=== PATIENT | female | born 1990 | race Caucasian/White ===

== ENCOUNTER 2023-07-02 19:11 | Outpatient (REF) | payer BC, SELFPAY | END 2023-07-02 19:12 | disposition home or self-care (01) | LOC: LAB 19:11 | PROVIDERS: PCP Student in an Organized Health Care Education/Training Program; Visit Provider Obstetrics & Gynecology | DX: Z01.419 Encounter for gynecological examination (general) (routine) without abnormal findings (principal) | CPT/HCPCS: 36415; 87491; 87591; 87624; 87661; 88175 ==

== ENCOUNTER 2024-03-14 10:50 | Outpatient (OUT) | payer BC, SELFPAY ==
[2024-03-14 12:57] LABS: Basophils Percent Auto 0.4 % (0.2-2.0); Eosinophils Absolute Auto 0.1 10^3/uL (0.0-0.7); Eosinophils Percent Auto 0.9 % (0.9-7.0); Hematocrit 36.9 % (36.0-48.0); Hemoglobin 12.3 g/dL (12.0-16.0); Immature Granulocytes Abs Auto 0.07 10^3/uL (0.00-0.03); Lymphocytes Absolute Auto 1.8 10^3/uL (1.2-3.8); Lymphocytes Percent Auto 25.9 % (20.5-60.0); Mean Corpuscular HGB Conc 33.3 g/dL (29.9-35.2); Mean Corpuscular Hemoglobin 29.9 pg (26.7-34.0); Mean Corpuscular Volume 89.6 fL (81.0-99.0); Monocytes Absolute Auto 0.5 10^3/uL (0.3-0.8); Monocytes Percent Auto 6.4 % (1.7-12.0); Neutrophils Absolute Auto 4.6 10^3/uL (1.4-6.5); Neutrophils Percent Auto 65.4 % (43.0-75.0); Platelet Count 169 10^3/uL (150-450); Red Blood Count 4.12 10^6/uL (4.20-5.40); Red Cell Distribution Width 13.1 % (11.0-15.0)
[2024-03-14 13:02] LABS: Estimated Average Glucose 111 mg/dL; Glycohemoglobin A1C 5.5 % (4.5-6.2)
[2024-03-14 13:52] LABS: BOX Test Reference Lab UNITY; BOX Test Sent Out UNITY
[2024-03-14 13:53] LABS: Amphetamine Screen Urine NEGATIVE (NEGATIVE); Barbiturates Screen Urine NEGATIVE (NEGATIVE); Benzodiazepines Screen Urine NEGATIVE (NEGATIVE); Buprenorphine Screen Urine NEGATIVE (NEGATIVE); Cannabinoid Screen Urine NEGATIVE (NEGATIVE); Cocaine Screen Urine NEGATIVE (NEGATIVE); Methadone Screen Urine NEGATIVE (NEGATIVE); Methamphetamines Screen Urine NEGATIVE (NEGATIVE); Opiate Screen Urine NEGATIVE (NEGATIVE); Oxycodone Screen Urine NEGATIVE (NEGATIVE); Phencyclidine Screen Urine NEGATIVE (NEGATIVE); Tricyclic Antidepressant Urine NEGATIVE (NEGATIVE)
[2024-03-15 06:08] LABS: HBsAg Screen Negative (Negative); HCV Ab Non Reactive (Non Reactive); HIV Ab/p24 Ag Screen Non Reactive (Non Reactive)
[2024-03-15 07:08] LABS: Rubella Antibodies, IgG 2.49 index (Immune >0.99)
[2024-03-15 13:07] LABS: Rapid Plasma Reagin, Quant Non Reactive titer (NonRea<1:1)
== END 2024-03-14 10:51 | disposition home or self-care (01) ==
LOC: LAB 10:53
PROVIDERS: PCP Student in an Organized Health Care Education/Training Program; Visit Provider Obstetrics & Gynecology
DX: Z34.01 Encounter for supervision of normal first pregnancy, first trimester (principal); Z36.0 Encounter for antenatal screening for chromosomal anomalies; N92.6 Irregular menstruation, unspecified
CPT/HCPCS: 36415; 80307; 83036; 85025; 86592; 86762; 86803; 86850; 86900; 86901; 87086; 87340; 87389

== ENCOUNTER 2024-04-19 | Outpatient (REF) | payer BC, SELFPAY ==
--- OUTSIDE RECORDS SUMMARY | 2024-04-20 09:04 | XMS_ITS | CCD ---
Author Organization [facility] Care Team Providers Care Corporate Concierge Name Role Phone BACEVICE, CHARLIE E Unavailable Unavailable KAFTON, KEITH Unavailable Unavailable BACEVICE, CHARLIE E Unavailable Unavailable BACEVICE, CHARLIE E Unavailable Unavailable KAFTON, KEITH Unavailable Unavailable GREENWOOD, KEITH Unavailable Unavailable GREENWOOD, KEITH Unavailable Unavailable KAFTON, KEITH Unavailable Unavailable GREENWOOD, KEITH Unavailable Unavailable KAFTON, KEITH Unavailable Unavailable GREENWOOD, KEITH Unavailable Unavailable Karen Bolanos Unavailable Filomena Zamora Unavailable Unavailable CONNER, DR WOOD Admitting Unavailable CONNER, DR WOOD Attending Unavailable REQUEST, NONE LISTED Primary Care Unavaila armand PRIETO, DR WOOD Consulting Unavailable Karen Bolanos Primary Care Physician Unavailable Primary Care Provider Unavailabl e Unavailable Primary Care Provider Unavailabl e JARAD, ANDRESSA G Attending Unavailable JARAD, ANDRESSA G Referring Unavailable JARAD, ANDRESSA G Referring Unavailable TANTIBSHADY MATUTEIERUT Attending Unav ailable SMOLEN, JESSI Referring Unavailable MARIE, RAHUL Attending Unavailable REHISAI ANYI Attending Unavailable JARAD, ANDRESSA G Referring Unavailable JARAD, ANDRESSA G Attending Unavailable SMOLEN, JESSI Referring Unavailable ANGELICA, MYRIAM Attending Unavailable JARAD, ANDRESSA G Referring Unavailable JARAD, ANDRESSA G Referring Unavailable JARAD, ANDRESSA G Referring Unavailable JARAD, ANDRESSA G Attending Unavailable SMOLEN, JESSI Referring Unavailable JARAD, ANDRESSA G Attending Unavailable KATZTIARRA Rivera Attending Unavailable KATZTIARRA PARK Admitting Unavailable TIARRA KATZ Attending Unavailable TIARRA KATZ Attending Unavailable Karen Bolanos MD Primary Care Provider Karen Bolanos MD Unavailable KAREN BOLANOS Attending Unavailable ANDREA PRIETO Attending Unavailable KAREN BOLANOS Attending Unavailable Medications Current Medications Medication Drug Class(es) Dates Sig (Normalized) Sig (Original) amoxicillin 80 mg/ml oral suspension (1 source) Penicillin-class Antibacterial Start: 02-28-2024 End: 03-09-2024 take 960 mg by mouth every twelve hours amoxicillin 400 mg/5 mL Oral Liq 960 mg = 12 mL, Oral, q12hr, X 10 day(s), # 240 mL, Refills(s) 0, Pharmacy: [facility] #[id number], 158, cm, 02/28/24 9:01:00 EST, Height/Length Dosing, 94, kg, 02/28/24 9:01:00 EST, Weight Dosing Start Date: 02/28/24 Stop Date: 03/09/24 Status: Ordered amoxicillin 875 mg / clavulanate 125 mg oral tablet (1 source) Penicillin-class Antibacterial Start: 03-11-2021 End: 03-20-2021 take 1 tablet by mouth twice daily at mealtime amoxicillin-clavul anate 875 mg-125 mg oral tablet ; 1 tab(s) orally 2 times a day Quantity: 20 Refills: 0 Ordered: 11-Mar-2021 Filomena Zamora Start: 11-Mar-2021 End: 20-Mar-2021 Generic Substitution Allowed Comments: Finish all this medication unless otherwise directed by prescriber.Take with food or milk. Comment on above: Finish all this medi cation unless otherwise directed by prescriber.Take with food or milk. biotin 5 mg oral capsule (19 sources) End: 03-11-2024 biotin 5 MG capsule Take by mouth Daily 03/11/2024 Discontinued End: 01-20-2024 BIOTIN ORAL Take by mouth on ce daily. 01/20/2024 Discontinued BIOTIN ORAL Take by mouth once daily. Active BIOTIN ORAL Take by mouth once daily. 0 Active Comment on above: Take by mouth once d aily. brompheniramine maleate 0.4 mg/ml / dextromethorphan hydrobromide 2 mg/ml / pseudoephedrine hydrochloride 6 mg/ml oral solution (1 source) alpha-Adrenergic Agonist, Uncompetitive N-vkabpb-J-aspartate Receptor Antagonist, Sigma-1 Agonist Start: End: take 5 mL by mouth every four to six hours brompheniramine/pse udoephedrine/dextro methorphan 2ha-[id number]-61qu/5 mL oral syrup ; 5 milliliter(s) orally every 4 to 6 hours, As Needed Quantity: 120 Refills: 0 Ordered: 11-Mar-2021 Noah Filomena Start: 11-Mar-2021 End: 20-Mar-2021 Generic Substitution Allowed Comments: May cause drowsiness. Alcohol may intensify this effect. Use care when operating dangerous machinery.Obtain medical advice before taking any non-prescription drugs as some may affect the action of this medication. Comment on above: May cause drowsiness . Alcohol may intensify this effect. Use care when operating dangerous machinery.Obtain medical advice before taking any non-prescription drugs as some may affect the action of this medication. cetirizine hydrochloride 10 mg oral tablet (1 source) Histamine-1 Receptor Antagonist Start: End: take 1 tablet by mouth once daily cetirizine 10 mg oral tablet ; 1 tab(s) orally once a day Quantity: 21 Refills: 0 Ordered: 11-Mar-2021 Filomena Zamora Start: 11-Mar-2021 End: 31-Mar-2021 Generic Substitution Allowed Comments: May cause drowsiness. Alcohol may intensify this effect. Use care when operating dangerous machinery.Obtain medical advice before taking any non-prescription drugs as some may affect the action of this medication. Comment on above: May cause drowsiness . Alcohol may intensify this effect. Use care when operating dangerous machinery.Obtain medical advice before taking any non-prescription drugs as some may affect the action of this medication. clindamycin 0.01 mg/mg topical gel (4 sources) Lincosamide Antibacterial Start: End: clindamycin (Clindagel) 1 % gel Indications: Acne vulgaris Apply topically Daily 60 g 2 06/15/2023 03/11/2024 Discontinued escitalopram 10 mg oral tablet (4 sources) Serotonin Reuptake Inhibitor End: escitalopram (Lexapro) 10 MG tablet 1 (one) time each day at the same time 03/11/2024 Discontinued fluticasone propionate 0.05 mg/actuat metered dose nasal spray (1 source) Corticosteroid Start: End: take 1 spray(s) nasal route once daily fluticasone 50 mcg/inh nasal spray ; 1 spray(s) in each nostril once a day Quantity: 1 Refills: 0 Ordered: 11-Mar-2021 Filomena Zamora Start: 11-Mar-2021 End: 20-Mar-2021 Generic Substitution Allowed Comments: For the nose.It is very important that you take or use this exactly as directed. Do not skip doses or discontinue unless directed by your doctor. Comment on above: For the nose.It is v mukesh important that you take or use this exactly as directed. Do not skip doses or discontinue unless directed by your doctor. mv-min/iron/folic/calciu m/vitK (WOMEN'S MULTIVITAMIN ORAL) (17 sources) mv-min/iron/foli c/c alcium/vitK (WOMEN'S MULTIVITAMIN ORAL) Take by mouth. Active mv-min/iron/foli c/calcium/vitK (WOMEN'S MULTIVITAMIN ORAL) Take by mouth. 0 Active Comment on above: Take by mouth. vit/iron fum/folic ac ( 1 + 1 ORAL) (17 sources) vit/iro n fum/folic ac ( 1 + 1 ORAL) Take by mouth. Active vit/iro n fum/folic ac ( 1 + 1 ORAL) Take by mouth. 0 Active Comment on above: Take by mouth. 0.25 mg, 0.5 mg dose 1.5 ml semaglutide 1.34 mg/ml pen injector (3 sources) Start: 02-25-20 End: 12-28-19 inject 0.25 mg by subcutaneous injection every week semaglutide (Ozempic, 0.25 or 0.5 MG/DOSE,) 2 MG/1.5ML solution pen-injector Indications: Abnormal weight gain Inject 0.25 mg under the skin 1 (one) time per week. 1 each 1 02/24/2023 12/28/2023 Discontinued traZODone hydrochloride 50 mg oral tablet (4 sources) Serotonin Reuptake Inhibitor End: 03-11-20 traZODone (Desyrel) 50 MG tablet Take 50 mg by mouth as needed at bedtime. 03/11/2024 Discontinued Completed/Discontinued Medications Medication Drug Class(es) Dates Sig (Normalized) Sig (Original) cyclobenzaprine hydrochloride 10 mg oral tablet (2 sources) Muscle Relaxant Start: 05-29-2012 take 1 tablet by mouth three times daily Flexeril 10 mg Tab 10 mg = 1 tab(s), Oral, TID, Take one by mouth three times a day, # 21 tab(s), Refills(s) 0 Start Date: 05/29/12 Status: Ordered levonorgestrel 0.156721 mg/hr intrauterine system (14 sources) Progestin, Progestin-containi ng Intrauterine Device End: 01-18-2024 levonorgestrel (MIRENA) 20 mcg/24 hr IUD 1 Each by INTRAUTERINE route one time only. 01/18/2024 Discontinued () Comment on above: 1 Each by INTRAUTERI NE route one time only. Problems Active Problems Problem Classification Problem Date Documented Date Episodic/Chronic Administrative/social admission (2 sources) Treatment plan given; Translations: [Counseling, unspecified] 07-28-2023 Episodic Contraceptive and procreative management (9 sources) Patient encounter status; Translations: [Encounter for other general counseling and advice on procreation] 06-08-2023 Episodic Female infertility (5 sources) Female infertility; Translations: [Female infertility, unspecified] Onset: 10-16-2023 10-12-2023 Chronic Immunizations and screening for infectious disease (1 source) Encounter for screening for human papillomavirus (HPV); Translations: [ENC SCREENING HUMAN PAPILLOMAVIRUS] Onset: 03-26-2022 Episodic Menstrual disorders (1 source) Missed period; Translations: [Irregular menstruation, unspecified] 03-11-2024 Chronic Mood disorders (5 sources) Recurrent major depressive episodes, mild ; Translations: [Major depressive disorder, recurrent, mild] Onset: 12-28-2023 12-28-2023 Chronic Other complications of (3 sources) Supervision of resulting from assisted reproductive technology, first trimester; Translations: [ resulting from assisted reproductive technology] Onset: 02-09-2024 01-20-2024 Episodic Other hereditary and degenerative nervous system conditions (5 sources) Restless legs; Translations: [Restless legs syndrome] Onset: 12-28-2023 12-28-2023 Chronic Other non-traumatic joint disorders (1 source) Pain of right wrist; Translations: [Pain in right wrist] Onset: 03-16-2023 Episodic Other nutritional; endocrine; and metabolic disorders (4 sources) Body mass index 30+ - obesity; Translations: [Body mass index (BMI) 34.0-34.9, adult] 06-08-2023 Chronic Other nutritional; endocrine; and metabolic disorders (1 source) Obese class I; Translations: [Body mass index (BMI) 34.0-34.9, adult] Onset: 02-28-2024 Chronic Other nutritional; endocrine; and metabolic disorders (2 sources) Morbid obesity; Translations: [Morbid (severe) obesity due to excess calories] 12-28-2023 Chronic Other and delivery including normal (4 sources) test positive; Translations: [Encounter for test, result positive] Onset: 01-21-2024 01-18-2024 Episodic Other screening for suspected conditions (not mental disorders or infectious disease) (4 sources) Encounter for screening for malignant neoplasm of cervix; Translations: [ENC SCREENING MALIG NEOPLASM CERV] Onset: 03-19-2022 Episodic Other upper respiratory disease (1 source) Nasal congestion; Translations: [Nasal congestion] Onset: 02-28-2024 Episodic Other upper respiratory disease (1 source) Congestion of nasal sinus 02-28-2024 Episodic Other upper respiratory infections (5 sources) Upper respiratory infection; Translations: [Acute upper respiratory infections of unspecified site] 03-11-2021 Episodic Otitis media and related conditions (2 sources) Non-suppurative otitis media; Translations: [Unspecified nonsuppurative otitis media, right ear] Onset: 02-28-2024 Episodic Unclassified (2 sources) Complete placenta previa with hemorrhage, third trimester / O44.13(ICD-9) Onset: 12-09-2016 Unclassified (1 source) Single live / Z37.0(ICD-9) Onset: 12-09-2016 Unclassified (1 source) 37 weeks gestation of / Z3A.37(ICD-9) Onset: 12-09-2016 Unclassified (2 sources) Encounter for suprvsn of normal , third trimester / Z34.83(ICD-9) Onset: 12-03-2016 Unclassified (2 sources) Other abnormal findings in urine / R82.99(ICD-9) Onset: 11-06-2016 Unclassified (1 source) 38 weeks gestation of / Z3A.38(ICD-9) Onset: 12-03-2016 Unclassified (2 sources) COUGH, SORE THROAT, EAR PRESSURE 03-11-2021 Comment on above: COUGH, SORE THROAT, EAR PRESSURE Unclassified (1 source) OB Reminders Onset: 03-28-2024 03-28-2024 Past or Other Problems Problem Classification Problem Date Documented Da te Episodic/Chronic Genitourinary symptoms and ill-defined conditions (1 source) Other abnormal findings in urine; Translations: [Other abnormal findings in urine] Onset: 11-06-2016 Episodic Unclassified (1 source) Complete placenta previa with hemorrhage, third trimester; Translations: [Complete placenta previa with hemorrhage, third trimester] Onset: 12-09-2016 Unclassified (1 source) Encounter for suprvsn of normal , third trimester; Translations: [Encounter for suprvsn of normal , third trimester] Onset: 12-03-2016 Results Test Name Value Interpretation Reference Range Facil ity ALL CBC WITH AUTO DIFFon BASOPHILS ABSOLUTE AUTO 0 [facility] Basophils/100 WBC (Bld) 0.4 % 0.2 - 2.0 % [facility] Eosinophils/100 WBC (Bld) 0.9 % 0.9 - 7.0 % [facility] Erythrocyte distribution width (RBC) [Ratio] 13.1 % 11.0 - 15.0 % [facility] Hematocrit (Bld) [Volume fraction] 36.9 % 36.0 - 48.0 % [facility] Hemoglobin (Bld) [Mass/Vol] 12.3 g/dL 12.0 - 16.0 g/dL [facility] IMMATURE GRANULOCYTES ABS AUTO 0.07 High [facility] Immature granulocytes/100 WBC (Bld) 1 % High 0.0 - 0.5 % [facility] Interpretation and review of laboratory results Abnormal [facility] LYMPHOCYTES ABSOLUTE AUTO 1.8 [facility] Lymphocytes/100 WBC (Bld) 25.9 % 20.5 - 60.0 % [facility] MCH (RBC) [Entitic mass] 29.9 pg 26.7 - 34.0 pg [facility] MCHC (RBC) [Mass/Vol] 33.3 g/dL 29.9 - 35.2 g/dL [facility] MCV (RBC) [Entitic vol] 89.6 fL 81.0 - 99.0 fL [facility] MONOCYTES ABSOLUTE AUTO 0.5 [facility] Monocytes/100 WBC (Bld) 6.4 % 1.7 - 12.0 % [facility] NEUTROPHILS ABSOLUTE AUTO 4.6 [facility] Neutrophils/100 WBC (Bld) 65.4 % 43.0 - 75.0 % [facility] Platelet mean volume (Bld) [Entitic vol] 12 fL 9.5 - 13.5 fL [facility] TBH EO # 0.1 [facility] TB PLT 169 [facility] RBC 4.12 Low [facility] WBC 7 [facility] HCG ( test) Ql (U)o n 03-11-2024 Interpretation and review of laboratory results Abnormal [facility] Preg Test, Ur Positive Negative [facility] Urinalysis macro (dipstick) panel (U)on 03-11-2024 Bilirubin, UA Negative Negative - 4(7 0) +++ mg/dL [facility] Blood, UA Negative Negative - 50 Mukesh/mcL [facility] Clarity, UA Clear [facility] Color, UA Yellow [facility] Glucose, UA Negative Negative - 1999(110) ++++ mg/dL [facility] Interpretation and review of laboratory results Normal [facility] Ketones, UA Negative Negative - 160(16) ++++ mg/dL [facility] Leukocytes, UA Negative Negative - 50 0+++ Shannon/mcL [facility] Nitrite, UA Negative Negative - Positive [facility] pH, UA 7 5 - 9 [facility] Protein, UA Negative Negative - 1999(20) ++++ mg/dL [facility] Spec Grav, UA 1.02 1 - 1.03 [facility] Urobilinogen, UA 0.2 0.2 - 12 mg/dL [facility] Ambulatory Visit Summaryon 1 04-30-2023 Ambulatory Visit Summary Ambulatory Visit Summary NELLI CARPENTER :1990 Visit Date:02/28/2024 Ambulatory Visit Instructions Your Diagnosis Right otitis media with effusion Sinus congestion BMI 34.0-34.9,adult Your Care Team Attending Physician - MADALYN LOZADA, TIARRA Primary Care Physician - Luis Miguel CANTU, Karen Crandall This Is Your Medications List amoxicillin (amoxicillin 400 mg/5 mL Oral Liq) Procedures Performed section, IUD - Removal of intrauterine device. Discharge Vitals Temperature (Oral) 37.2 ???C Heart Rate (Peripheral) 92 Blood Pressure 124/80 Height 158 cm Height 62 in Weight 94 kg Weight 207.234 lb BMI 37.65 Medications What How Much When Why Instructions New amoxicillin (amoxicillin 400 mg/ 5 mL Oral Liq) 12 Milliliter By Mouth Every 12 hours Right otitis media with effusion Duration: 10 Days Pickup at [facility] #[id number] Pharmacy Information [facility] #[id number]: [address] [place], [place] [id number] [phone] Allergies No Known Allergies Problems Ongoing - Any problem that you are currently receiving treatment for. Acute sinusitis BMI 34.0-34.9,adult Right otitis media with effusion Sinus congestion Patient Survey You may receive a survey via text or e-mail asking about your office visit. Please share your experience with us by completing your survey. We appreciate your feedback and thank you for choosing us for your care. Normal [facility] Family Medicine Office/Clini c Noteon 02-28-2024 Family Medicine Office/Clinic Note Family Medicine Office/Clinic Note Chief Complaint ear pain, cough, sore throat HPI Staff 33 year old female presents with bilateral ear pain- right is worse, cough, sore throat, mild head pressure, congestion symptoms began yesterday pt it 10 weeks History of Present Illness Reviewed and agree with above documented HPI by medical fee clerk. Portions of this record may have been created with voice recognition artificial intelligence software, specifically [employer] ([place] and or [employer]. Substitutions may have occurred due to the inherent limitations of voice recognition and artificial intelligence software. Patient is a 33-year-old female who presents to [facility] care, for right ear pain, sinus congestion, sore throat, and a nonproductive cough, patient states she is , says sinus issues for over a week and a half, past few days including yesterday she had worsening sinus headache, increased right ear pain, nonproductive cough, with no history of asthma bronchitis not keep her up at night, patient stated body aches and the headache is just as much of a problem with a sore throat. 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 Patient states she has been trying to eat and drink and try to drink plenty of fluids, does not have any discomfort with swallowing. Patient denies any worsening headache, different type of headache, dizziness, nausea or vomiting, controllable fevers or chills, worsening body aches, productive cough, worsening cough, chest pain, dyspnea exertion, is, vaginal bleeding, or pelvic pain. Review of Systems PHQ Score Initial Depression Screen Score: 0 SCORE Physical Exam Vitals & Measurements T: 37.2 ???C(Oral) HR: 92(Peripheral) BP: 124/80 SpO2: 98% HT: 62 in HT: 158 cm WT: 94 kg WT: 207.234 lb BMI: 37.65 General: Well developed, well nourished, in no acute distress. Patient does does appear ill but not septic. No respiratory distress. Patient answers questions appropriately and in complete sentences. Follows commands appropriately. Head: Normocephalic/atraumat ic positive upper respiratory infection. Eyes: Pupils equal, round, and reactive to light. Conjunctivae and sclerae normal. Ears: Right TM is bulging with redness, with effusion, concern for otitis media, no signs otitis externa. He has some discomfort on examination. Left TM and external canal are both within normal limits. Hearing is intact. Nose: No deformity, discharge, inflammation, or lesions Mouth: Mucous membranes moist. Normal oropharynx, and posterior pharynx with erythema and postnasal drip and without exudates, lesions, or enlarged tonsils. No trismus. No difficulty swallowing. Neck: Neck supple. No masses or palpable cervical nodes. Lungs: Normal respiratory effort and clear to auscultation throughout.. No rales, crackles, or decreased breath sounds. Cardio: regular rate and rhythm, no murmur. No chest wall tenderness. Abdomen: soft, nondistended, BS normal and active x4. Denies tenderness with palpation. Musculoskeletal: Patient is able to move all 4 extremities without pain or weakness. Neurologic: Grossly normal Skin: No rashes, ulcerations, or suspicious lesions Lymph Nodes: no lad Mental Status: alert, active Assessment/Plan Patient agrees to swabs for COVID-19 and influenza, no breathing treatment or chest imaging are indicated at this time. 33-year-old female presented to [facility] care, for right otitis media effusion, sinus congestions, and a nonproductive cough, symptoms have started a week and a half ago, history of sinus infection, she is , did appear ill but not septic. No respiratory distress, difficulty swallowing, abdominal pain, history of vaginal bleeding, history of vaginal pain, pelvic pain, flank pain, or lumbar back pain. She was given a prescription for amoxicillin, instructed she can only take [id number] Tylenol for body aches, headaches, and fevers since she is . Given a work excuse note. Follow-up with primary care provider as needed. 1. Right otitis media with effusion (H65.91: Unspecified nonsuppurative otitis media, right ear) See above Ordered: amoxicillin, 960 mg = 12 mL, Oral, q12hr, X 10 day(s), # 240 mL, Refills(s) 0, Pharmacy: [facility] #[id number], 158, cm, 02/28/24 9:01:00 EST, Height/Length Dosing, 94, kg, 02/28/24 9:01:00 EST, Weight Dosing 2. Sinus congestion (R09.81: Nasal congestion) See above 3. BMI 34.0-34.9,adult (Z68.34: Body mass index [BMI] 34.0-34.9, adult) The standard range for ages 18 and older is >=18.5 and < 25 kg/m2. Your BMI today was above this range, this falls in the overweight to obese category and there are medical benefits to weight loss. We can offer counselling, referral, and/or medical support in addressing this problem. Your BMI and weight management wi (more content not included)... Normal [facility] Comment on above: Result Comment: Elec tronically Signed By: TIARRA KATZ PA-C\.br\Date and Time Signed: 02/28/24 09:58 EST Patient [facility] [place] [facility] [place] Patient Letter [facility] [place] [address] [place] [address] February 28, 2024 NELLI CARPENTER [address] [place] [address] : 1990 Please excuse NELLI CARPENTER from work . Date and/or Time of Absence: From: 02/29/24 May return to work on: 03/01/24 Restrictions: None Comments: Please excuse due to an acute illness. Provider Signature: Tiarra Katz PA-C [address] [place] [address] [place] [address] [facility] CNN[facility]SEon 02-09-2024 CNNURSE Nurse Visit (REIAV) NELLI CARPENTER ([id number]) 1990 F Date Time Provider Department 02/09/24 10:30 AM NURSE [facility] LORENA CADET During your visit today, we recorded the following information about you: Parth Clark MD 02/09/2024 11:28 AM Signed Scan Visit Patient here for scan. See imaging documentation. MD Diego Bajwa Lauren, LOCAL SUPERINTENDENT.REHABILITATION WORKER 02/09/2024 12:28 PM Signed Nelli Carpenter here today for a scan. This is her 1st scan. History of ectopic: No, History of SAB: Yes History of pelvic/abdominal surgeries: Yes, DANDC LMP 12/18, natural cycle, LH surge: 12/31, IUI-D done: 01/01 Latest Ref Rng 07/28/2023 01/19/2024 ABO O Rh(D) Positive Antibody Screen Negative (C) Type+Scr Expiration 07/31/2023 23:59 Historical Ab Scr Status NEGATIVE Varicella Zoster IgG, Qual Positive Positive Rubella IgG, Qual Positive Negative ! hCG Quantitative, Blood <5.0 mIU/mL 792.1 (H) Dating LMP on: 12/19/2023 GA by LMP 7 w + 3 d PAULA by LMP: 09/24/2024 Ultrasound examination on: 02/09/2024 GA by U/S based upon: CRL GA by U/S 7 w + 3 d PAULA by U/S: 09/24/2024 Assigned: based on the LMP, selected on 02/09/2024 Assigned GA 7 w + 3 d Assigned PAULA: 09/24/2024 FHR: 143 Plan Move on to OB Vidhya Pitt APRN.REHABILITATION WORKER February 09, 2024 12:27 PM Referring Provider: ANDRESSA ABRAHAM [[id number]] Allergies As of Date: 02/09/2024 (No Known Allergies) Date Reviewed: 01/20/2024 Reviewed by: Andressa Abraham APRN.REHABILITATION WORKER - Fully Assessed Visit Diagnosis: resulting from assisted reproductive technology in first trimester [O09.811] Order(s):[facility] [[id number]] Order #: [id number]. #:[id number] EWPOINTQty: 1 Prescriptions as of 02/09/2024 - vit/iron fum/folic ac ( 1 + 1 ORAL) Take by mouth. - mv-min/iron/folic/calc ium/vitK (WOMEN'S MULTIVITAMIN ORAL) Take by mouth. Problem List As Of Date: 02/09/2024 (None) Encounter Status:Closed by PARTH CLARK on 02/09/24 Normal [facility] Examination level ultrasound on 02-09-2024 Indication Viability; IUI done on 01-02-24; obesity >30 Impression - Single, live, intrauterine . - An intrauterine gestational sac with a yolk sac and pole is present. - [place] rump length measurement is consistent with the established gestational age. - heart rate is within normal limits. Recommendations Follow up as clinically indicated Maternal Assessment Height 160 cm Height (ft) 5 ft Height (in) 3 in Physical Exam Initial weight (lb) 196 lb Initial BMI 34.72 kg/m Method Transvaginal ultrasound examination Choudhury . Number of embryos: 1 Dating LMP on: 12/19/2023 GA by LMP 7 w + 3 d PAULA by LMP: 09/24/2024 Ultrasound examination on: 02/09/2024 GA by U/S based upon: CRL GA by U/S 7 w + 3 d PAULA by U/S: 09/24/2024 Assigned: based on the LMP, selected on 02/09/2024 Assigned GA 7 w + 3 d Assigned PAULA: 09/24/2024 Assessment Gestational sac: visualized Location: intrauterine Yolk sac: visualized YS 3.8 mm 9% [place] Embryo: visualized CRL 12.4 mm 7w 3d 92% [place] Cardiac activity: present FHR 143 bpm Maternal Structures Uterus / Cervix Uterus: Visualized Uterus position: anteverted Uterus length 130 mm Uterus width 81 mm Uterus height 63 mm Uterus Vol 348.3 cm Ovaries / Tubes / Adnexa Rt ovary: Normal Rt ovary D1 38 mm Rt ovary D2 29 mm Rt ovary D3 28 mm Rt ovary Vol 15.9 cm Lt ovary: Normal Lt ovary D1 36 mm Lt ovary D2 23 mm Lt ovary D3 28 mm Lt ovary Vol 11.8 cm Cul de Sac / Bladder / Kidneys / Other Free fluid: no free fluid visualized Performed By: Kelly Quigley RDMS Read By: Parth Clark M.D. MATERNAL MEDICINE [facility] Radiology Study observation (narrative) [facility] B-HCG [facility] 4 HCG.beta subunit Qn 2270.0 m[IU]/mL High <5.0 [facility] Comment on above: Order Comment: Speci men Type: BLOOD SPECIMEN Ordering Facility: [facility] Address: [address] [place], [place] [address] Result Comment: NOBLE TITATIVE HCG NORMAL RANGES Weeks of Gestation (Weeks Since LMP) 3 Weeks (5.8-71.2 mIU/mL) 4 Weeks (9.5-750 mIU/mL) 5 Weeks (217-7138 mIU/mL) 6 Weeks (158-96045 mIU/mL) 7 Weeks (3697-587470 mIU/mL) 8 Weeks (13164-539730 mIU/mL) 9 Weeks (06505-279185 mIU/mL) 10 Weeks (30213-728235 mIU/mL) 12 Weeks (17639-804092 mIU/mL) Referenced to 4th IS of [facility] Performed By: #### 7 3752-8, 5195-3, 03454-8, 81794-4 #### [facility] CLIA [id number] [address] [place] [address] [place] B-HCG SerPl-aCncon 4 HCG.beta subunit Qn 792.1 m[IU]/mL High <5.0 [facility] Comment on above: Order Comment: Speci men Type: BLOOD SPECIMEN [facility] Facility: [facility] Address: [address] [place] [address] Result Comment: NOBLE TITATIVE HCG NORMAL RANGES Weeks of Gestation (Weeks Since LMP) 3 Weeks (5.8-71.2 mIU/mL) 4 Weeks (9.5-750 mIU/mL) 5 Weeks (217-7138 mIU/mL) 6 Weeks (158-07343 mIU/mL) 7 Weeks (3697-547720 mIU/mL) 8 Weeks (38518-062301 mIU/mL) 9 Weeks (31099-169288 mIU/mL) 10 Weeks (44835-539622 mIU/mL) 12 Weeks (11015-317333 mIU/mL) Referenced to 4th IS of [facility] Performed By: #### 7 3752-8, 5195-3, 88038-4, 61154-8 #### [facility] CLIA [id number] [address] [place] [address] [place] CNPNila 01-18-2024 LEXUSN Telephone (REIBD) NELLI CARPENTER ([id number]) 1990 F Date Time Provider Department 01/18/24 JARAD, ANDRESSA G REIBD During your visit today, we recorded the following information about you: Destiny Peters 01/18/2024 10:36 AM Signed Please call patient back regarding next steps. Jessi Yoo PA-C 01/18/2024 4:03 PM Signed Patient calls with positive urine test. History of ectopic: No History of SAB: Yes History of pelvic/abdominal surgeries: Yes, DANDC LMP 12/18, fertility medications used this cycle natural cycle , date of LH surge: 12/31, IUI done: 01/01 Blood type: O, POS, rubella vaccinated , varicella Immune Current medications: Current Outpatient Medications on File Prior to Visit Medication Sig vit/iron fum/folic ac ( 1 + 1 ORAL) Take by mouth. mv-min/iron/folic/calc ium/vitK (WOMEN'S MULTIVITAMIN ORAL) Take by mouth. BIOTIN ORAL Take by mouth once daily. (Patient not taking: Reported on 06/08/2023) levonorgestrel (MIRENA) 20 mcg/24 hr IUD 1 Each by INTRAUTERINE route one time only. (Patient not taking: Reported on 06/08/2023) No current facility-administered medications on file prior to visit. Advised normal symptoms of and s/s of need for follow up. Labs ordered: hCG x 2 FYI Angelica Yoo PA-C January 18, 2024 4:02 PM Allergies As of Date: 01/18/2024 (No Known Allergies) Date Reviewed: 11/23/2023 Reviewed by: Andressa Abraham APRN.CNP - Fully Assessed Reason for Visit: +hpt 01/15 after an iui [Other] Primary Visit Diagnosis:Encounter for test, result positive [Z32.01] Order(s):HCG QUANTITATIVE [SQHCGQT] Order #: [id number] STANDING Prescriptions as of 01/18/2024 - vit/iron fum/folic ac ( 1 + 1 ORAL) Take by mouth. - mv-min/iron/folic/calc ium/vitK (WOMEN'S MULTIVITAMIN ORAL) Take by mouth. - BIOTIN ORAL Take by mouth once daily. Problem List As Of Date: 01/18/2024 (None) Medications Discontinued During This Encounter Prescriptions - levonorgestrel (MIRENA) 20 mcg/24 hr IUD (Discontinued) Reported on 06/08/2023 Encounter Status:Closed by JESSI YOO on 01/18/24 [facility] CNOVon 01-02-2024 CNOV Office Visit (REIBD) NELLI CARPENTER ([id number]) 1990 F Date Time Provider Department 01/02/24 11:00 AM ANYI GANT During your visit today, we recorded the following information about you: Flavia Elizondo 01/02/2024 11:46 AM Signed IUI specimen released to provider Flavia Elizondo January 02, 2024 11:23 AM Uma Aguilera MD 01/02/2024 11:32 AM Addendum WHI SARMAD IUI PROCEDURE NOTE Date: 01/02/2024 Primary Proceduralist: Uma Aguilera MD Consents and Labels Consent Signed: Informed Consent obtained and on the chart Labels Verified With Patient: Yes Indications: Nelli Carpenter, is a 33 year old female here today for intrauterine insemination. IUI # 2. Cycle Day: 15 Last menstrual period: 12/19/2023 [place] Protocol: UNIVERSAL PROTOCOL / SAFETY CHECKLIST Procedure to be Performed: Intrauterine Insemination Sign In: A Moment of CARE was completed. Personnel directly involved with the procedure wore the appropriate PPE (Personal Protective Equipment). Patient/Surrogate Stated/Verified: PATIENT VERIFIED(optional for EMERGENT procedures): Patient name, Date of , Relevant allergies, and The intended procedure Time Out Communication: Intended patient and procedure match the source documents. Consent documented and matches the intended procedure. Sign Out: SIGN OUT (optional for EMERGENT procedures): No specimen collected. Uma Aguilera MD The sensitive examination was discussed with the Patient or Patient's Authorized Double End Trimmer. As applicable, any other physician, advance practice provider, medical student, or other health professional student that will be observing or involved in the sensitive examination for educational or training purposes was discussed with the Patient or Authorized Double End Trimmer. The Patient or Authorized Double End Trimmer has agreed to proceed with the sensitive examination. (Sensitive examination includes inspection and/or palpation of the breasts, pelvis, prostate and anorectal regions) Patient declined winder hand. IUI IUI Date: 01/02/24 Partner's Name: Wanda Carpenter IUI Time: 11:29 AM EDT Partner's : 04/20/1993 IUI #: 2 Partner's Partner's Ethnicity/Race: NOT or Patient's LMP: 12/19/23 Cycle Day: 15 Pre-Procedure Diagnosis: Infertility Post-Procedure Diagnosis: Infertility Cycle Meds: Natural Cycle Trigger: LH Surge Date Catheter Type: Curve catheter Tenaculum: No Catheter passed: Easy Complications: None Sperm Information: Source of Sperm: Donor Fresh/Frozen: Frozen TMC (total motile count of sperm after wash): 34.7 million Cycle reviewed, all questions answered. Pt instructed to take a test in 17 days if no menses and call with results. SIGNATURE: Uma Aguilera MD PATIENT NAME: Nelli Carpenter DATE: January 02, 2024 TIME: 11:32 AM Agree with above documentation. I was available during the adams components of this patient visit and discussed the patient's plan of management with Dr. Aguilera and patient. Dr. Anyi Gant M.D. Reproductive Endocrinology and Infertility Flavia Elizondo Rowena 01/02/2024 11:46 AM Signed IUI Xytex #: [id number] Washed frozen specimen Post: 122 m/ml, 63% Insem#: 34.7 million Referring Provider: ANDRESSA ABRAHAM [[id number]] Allergies As of Date: 01/02/2024 (No Known Allergies) Date Reviewed: 11/23/2023 Reviewed by: Andressa Abraham, LOCAL SUPERINTENDENT.REHABILITATION WORKER - Fully Assessed Primary Visit Diagnosis:Encounter for artificial insemination [Z31.89] Prescriptions as of 01/02/2024 - vit/iron fum/folic ac ( 1 + 1 ORAL) Take by mouth. - mv-min/iron/folic/calc ium/vitK (WOMEN'S MULTIVITAMIN ORAL) Take by mouth. - BIOTIN ORAL Take by mouth once daily. - levonorgestrel (MIRENA) 20 mcg/24 hr IUD 1 Each by INTRAUTERINE route one time only. Problem List As Of Date: 01/02/2024 (None) Encounter Status:Closed by ANYI GANT on 01/02/24 Normal [facility] CNOV Office Visit (ANDRBE ) NELLI CARPENTER ([id number]) 1990 F Date Time Provider Department 01/02/24 10:30 AM ANDROLOGY MACHINIST HELPER [facility] During your visit today, we recorded the following information about you: Flavia Elizondo 01/02/2024 11:47 AM Signed Thaw for IUI Flavia Elizondo Referring Provider: ANDRESSA ABRAHAM [[id number]] Allergies As of Date: 01/02/2024 (No Known Allergies) Date Reviewed: 11/23/2023 Reviewed by: Andressa Abraham APRN.REHABILITATION WORKER - Fully Assessed Primary Visit Diagnosis:Procreative management [Z31.9] Prescriptions as of 01/02/2024 - vit/iron fum/folic ac ( 1 + 1 ORAL) Take by mouth. - mv-min/iron/folic/calc ium/vitK (WOMEN'S MULTIVITAMIN ORAL) Take by mouth. - BIOTIN ORAL Take by mouth once daily. - levonorgestrel (MIRENA) 20 mcg/24 hr IUD 1 Each by INTRAUTERINE route one time only. Problem List As Of Date: 01/02/2024 (None) Encounter Status:Closed by FLAVIA ELIZONDO on 01/02/24 Normal [facility] CNOVon 12-05-2023 CNOV Office Visit (REIBD) NELLI CARPENTER ([id number]) 1990 F Date Time Provider Department 12/05/23 10:00 AM MYRIAM DOMINGUEZ During your visit today, we recorded the following information about you: Stephanie Lara 12/06/2023 8:45 AM Signed IUI specimen released to provider Stephanie Lara December 05, 2023 10:19 AM Uma Aguilera MD 12/05/2023 10:32 AM Addendum WHI SARMAD IUI PROCEDURE NOTE Date: 12/05/2023 Primary Proceduralist: Uma Aguilera MD Consents and Labels Consent Signed: Informed Consent obtained and on the chart Labels Verified With Patient: Yes Indications: Nelli Carpenter, is a 33 year old female here today for intrauterine insemination. IUI # 1. Cycle Day: 15 Last menstrual period: 11/21/2023 [place] Protocol: UNIVERSAL PROTOCOL / SAFETY CHECKLIST Procedure to be Performed: Intrauterine insemination Sign In: A Moment of CARE was completed. Personnel directly involved with the procedure wore the appropriate PPE (Personal Protective Equipment). Patient/Surrogate Stated/Verified: PATIENT VERIFIED(optional for EMERGENT procedures): Patient name, Date of , Relevant allergies, and The intended procedure Time Out Communication: Intended patient and procedure match the source documents. Consent documented and matches the intended procedure. Sign Out: SIGN OUT (optional for EMERGENT procedures): No specimen collected. Patient declined winder hand. Uma Aguilera MD IUI IUI Date: 12/05/23 Partner's Name: Wanda Carpenter IUI Time: 10:25 AM EDT Partner's : 04/20/1993 IUI #: 1 Partner's Partner's Ethnicity/Race: NOT or Patient's LMP: 11/21/23 Cycle Day: 15 Pre-Procedure Diagnosis: Infertility Post-Procedure Diagnosis: Infertility Cycle Meds: Natural Cycle Trigger: LH Surge Date Catheter Type: Curve catheter Tenaculum: No Catheter passed: Easy Complications: None Sperm Information: Source of Sperm: Donor Fresh/Frozen: Frozen TMC (total motile count of sperm after wash): 49 million Donor ID #: [id number] Cycle reviewed, all questions answered. Pt instructed to take a test in 17 days if no menses and call with results. SIGNATURE: Uma Aguilera MD PATIENT NAME: Nelli Carpenter DATE: December 05, 2023 TIME: 10:31 AM I was present and immediately available for the entire procedure. Patient underwent an intrauterine insemination. Myriam Dominguez MD, Stephanie Barnett 12/06/2023 8:45 AM Signed IUI Xytex #[id number] Frozen washed specimen Post: 145 Million/mL, 68% Insem #: 49 Million Referring Provider: ANDRESSA ABRAHAM [[id number]] Allergies As of Date: 12/05/2023 (No Known Allergies) Date Reviewed: 11/23/2023 Reviewed by: Andressa Abraham, LOCAL SUPERINTENDENT.REHABILITATION WORKER - Fully Assessed Primary Visit Diagnosis:Female infertility [N97.9] Prescriptions as of 12/06/2023 - vit/iron fum/folic ac ( 1 + 1 ORAL) Take by mouth. - mv-min/iron/folic/calc ium/vitK (WOMEN'S MULTIVITAMIN ORAL) Take by mouth. - BIOTIN ORAL Take by mouth once daily. - levonorgestrel (MIRENA) 20 mcg/24 hr IUD 1 Each by INTRAUTERINE route one time only. Problem List As Of Date: 12/05/2023 (None) Encounter Status:Closed by MYRIAM DOMINGUEZ on 12/06/23 Normal [facility] CN Office Visit (ANDRBE ) NELLI CARPENTER ([id number]) 1990 F Date Time Provider Department 12/05/23 9:30 AM ANDROLOGY MACHINIST HELPER [facility] During your visit today, we recorded the following information about you: Stephanie Lara 12/05/2023 10:23 AM Signed Thaw for IUI Stephanie Lara Referring Provider: ANDRESSA ABRAHAM [[id number]] Allergies As of Date: 12/05/2023 (No Known Allergies) Date Reviewed: 11/23/2023 Reviewed by: Andressa Abraham APRN.CNP - Fully Assessed Primary Visit Diagnosis:Procreative management [Z31.9] Prescriptions as of 12/05/2023 - vit/iron fum/folic ac ( 1 + 1 ORAL) Take by mouth. - mv-min/iron/folic/calc ium/vitK (WOMEN'S MULTIVITAMIN ORAL) Take by mouth. - BIOTIN ORAL Take by mouth once daily. - levonorgestrel (MIRENA) 20 mcg/24 hr IUD 1 Each by INTRAUTERINE route one time only. Problem List As Of Date: 12/05/2023 (None) Encounter Status:Closed by STEPHANIE LARA on 12/05/23 Normal [facility] [id number] 11-23-2023 HNO ID: [id number] Author: ANDRESSA ABRAHAM APRN.CNP Service: ? 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 Tubal Patency Testing: defer for now Sperm Source:Donor Frozen Treatment Protocol: Natural Cycle Monitoring Plan: OPKs Ovidrel Trigger: No Supplemental Progesterone: None Comments: None Andressa Abraham APRN.CNP 11/23/2023 Normal [facility] Pro[facility] [Mass/Vol] 7.4 ng/mL Normal See comment [facility] Comment on above: Order Comment: Speci men Type: BLOOD SPECIMEN [facility]ing Facility: [facility] Address: [address] [place] [address] Result Comment: Mens trual Cycle Progesterone Reference Ranges: Follicular: <1.0 ng/mL Ovulation: <12.1 ng/mL Luteal: 1.8 to 23.9 ng/mL. Progesterone Reference Ranges vary by gestational period: First Trimester: 11.0 to 44.3 ng/mL Second Trimester: 25.4 to 83.3 ng/mL Third Trimester: 58.7 to 214 ng/mL Post menopausal Progesterone: <0.5 ng/mL Reference: 1. Progesterone (Progesterone III) [package insert V 1.0 [place]]. [facility], [place], [place]. December 2014. Performed By: #### 7 3752-8, 5195-3, 28628-2, 57129-8 #### [facility] CLIA [id number] [address] [place] [address] CNPNila 10-12-2023 CNPN Telephone (REIBD) NELLI CARPENTER ([id number]) 1990 F Date Time Provider Department 10/12/23 ANDRESSA ABRAHAM During your visit today, we recorded the following information about you: Destiny Peters 10/12/2023 12:44 PM Signed Partner Wanda calling re +ov need to schedule progesterone test for Nelli when to have it done. Please follow up with Wanda. Laura Roque RN 10/12/2023 12:54 PM Signed Called the patient she verified her name and date of patient is doing practice cycle Patient had peak on her opk 10-10-23 last period 09-27-23 Needs progesterone order I advised she goes in 6-8 days from positive opk not on fertility meds Laura Roque RN October 12, 2023 12:54 PM Allergies As of Date: 10/12/2023 (No Known Allergies) Date Reviewed: 09/11/2023 Reviewed by: Andressa Abraham, LOCAL SUPERINTENDENT.REHABILITATION WORKER - Fully Assessed Reason for Visit: +ovulation test SatANDSund d14 AND 15 partner calling [Other] Primary Visit Diagnosis:Female infertility [N97.9] Order(s):PROGESTERONE [SQPROG] Order #: [id number] FUTURE Prescriptions as of 10/12/2023 - vit/iron fum/folic ac ( 1 + 1 ORAL) Take by mouth. - mv-min/iron/folic/calc ium/vitK (WOMEN'S MULTIVITAMIN ORAL) Take by mouth. - BIOTIN ORAL Take by mouth once daily. - levonorgestrel (MIRENA) 20 mcg/24 hr IUD 1 Each by INTRAUTERINE route one time only. Problem List As Of Date: 10/12/2023 (None) Encounter Status:Closed by JESSI YOO on 10/12/23 [facility] CNOVon 09-11-2023 CNOV Office Visit (REIBD) NELLI CARPENTER ([id number]) 1990 F Date Time Provider Department 09/11/23 8:00 AM ANDRESSA ABRAHAM During your visit today, we recorded the following information about you: Andressa Abraham APRN.[facility] 09/15/2023 4:56 PM Signed REPRODUCTIVE ENDOCRINOLOGY AND INFERTILITY DONOR SPERM FOLLOW UP SERVICE DATE: 09/11/2023 SERVICE TIME: 8:08 AM NAME: Nelli Carpenter Persons Present: Marlin Reason for visit: donor sperm follow up HPI Marlin present today for donor sperm follow up. Donor sperm labs and carrier screen done. They met with Dr. Gallegos a couple of days ago. Spouse - Wanda - does not wish to take a turn Test results - donor labs/Myriad: Latest Ref Rng 07/28/2023 ABO O Rh(D) Positive Antibody Screen Negative (C) Type+Scr Expiration 07/31/2023 23:59 Historical Ab Scr Status NEGATIVE HIV 12 Combo (Ag/Ab) Nonreactive Nonreactive HIV 1/2 Ab -- HIV Interpretation -- CMV IgG Qualitative Negative Negative CMV Antibody, IgG U/mL <0.20 Syphilis Screen Result Nonreactive Nonreactive Syphilis Interpretation Cannot exclude recent Treponemal infection if specimen collected within 7-10 days after appearance of suspect lesions or 2-3 weeks after an exposure. Clinical correlation is required. Neisseria gonorrhoeae (GC) Negative for Neisseria gonorrhoeae by amplification Negative for Neisseria gonorrhoeae by amplification Chlamydia trachomatis (CT) Negative for Chlamydia trachomatis by amplificaton Negative for Chlamydia trachomatis by amplification Varicella Zoster IgG, Qual Positive Positive Rubella IgG, Qual Positive Negative ! CMV IgM, Qual Negative Negative Hep C Antibody IA Negative Negative Hep B Core Ab, Total Negative Negative Hep B Surface Ag Negative Negative Wanda's results: Latest Ref Rng 07/28/2023 08/06/2023 ABO O Rh(D) Positive Antibody Screen Negative Type+Scr Expiration 08/09/2023 23:59 Historical Ab Scr Status NEGATIVE HIV 12 Combo (Ag/Ab) Nonreactive Nonreactive HIV 1/2 Ab -- HIV Interpretation -- CMV IgG Qualitative Negative Negative CMV Antibody, IgG U/mL <0.20 Syphilis Screen Result Nonreactive Nonreactive Syphilis Interpretation Cannot exclude recent Treponemal infection if specimen collected within 7-10 days after appearance of suspect lesions or 2-3 weeks after an exposure. Clinical correlation is required. Neisseria gonorrhoeae (GC) Negative for Neisseria gonorrhoeae by amplification Negative for Neisseria gonorrhoeae by amplification Chlamydia trachomatis (CT) Negative for Chlamydia trachomatis by amplificaton Negative for Chlamydia trachomatis by amplification CMV IgM, Qual Negative Negative Hep C Antibody IA Negative Negative Hep B Core Ab, Total Negative Negative Hep B Surface Ag Negative Negative Practice cycle: patient did test for ovulation, but isn't sure how many positives she got in a row and did not call in for a blood test. LMP 5/8, +OPK cycle day 12 - 26 day long cycle LMP 6/ Treatment plan: pending - likely natural cycle/IUI. 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 If the donor is a carrier for something, you must have been tested for that disorder to know you are not a carrier (make sure it's on the list of conditions tested). Donor choice: pending Plan: Donor Sperm episode/checklist updated. Consent signed today. Pending checklist items: - waiting on Dr. Gallegos's report - Practice cycle with next period - make a list of favorite donors - send to me via [employer] to confirm Confirmed best vial type to order: IUI/prewashed Will need to follow up to firm up treatment plan and review IUI scheduling instructions. Andressa Abraham APRN.REHABILITATION WORKER September 11, 2023 8:08 AM I spent a total of 50 minutes on the date of the service which included preparing to see the patient, [id number] patient care, completing clinical documentation, obtaining and/or reviewing separately obtained history, counseling and educating the patient/family/caregiv er, ordering medications, tests, or procedures, independently interpreting results (not separately reported), communicating results to the patient/family/caregiv er, and care coordination (not separately reported). To patients reading this note: Please be advised the primary purpose of this note is for me to communic (more content not included)... Normal [facility] C. trachomatis+N. gonorrhoea e DNA PENNY+probe Ql (Unsp spec)on 07-28-2023 C. trachomatis rRNA PENNY+probe Ql (Unsp spec) Negative Normal Negative for Chlamydia trachomatis by amplificaton [facility] Comment on above: Order Comment: Speci men Type: URINE SPECIMEN [facility] Facility: [facility] Address: [address] [place] [address] Performed By: #### 3 6902-5 #### [facility] CLIA [id number] [address] [place] [address] [place] N. gonorrhoeae rRNA PENNY+probe Ql (Unsp spec) Negative Normal Negative for Neisseria gonorrhoeae by amplification [facility] Comment on above: Order Comment: Speci men Type: URINE SPECIMEN [facility]ing Facility: [facility] Address: [address] [place] [address] Performed By: #### 3 6902-5 #### [facility] CLIA [id number] [address] [place] [address] [place] CARRIER SCREEN, EXPANDEDon 0 07-28-2023 CARRIER SCREEN RESULTS View results in Scanned Documents link when available. Normal [facility] Comment on above: Order Comment: Speci men Type: BLOOD SPECIMEN [facility] Facility: [facility] Address: [address] [place] [address] Performed By: #### 7 3752-8, 5195-3, 61565-2, 30436-3 #### [facility] CLIA [id number] [address] [place] [address] [place] CMV IgG Qnon 07-28-2023 CMV IGG QUAL Negative Normal Negative [facility] Comment on above: Order Comment: Speci men Type: BLOOD SPECIMEN [facility]ing Facility: [facility] Address: [address] [place] [address] Result Comment: No s erological evidence of past exposure to Cytomegalovirus. Cannot exclude recent infection if the specimen collected within 4-6 weeks after infection. Performed By: #### 7 3752-8, 5195-3, 73402-3, 16542-6 #### [facility] CLIA [id number] [address] [place] [address] [place] CMV IgG SerPl-aCncon 024 CMV IgG Qn <0.20 Normal [facility] Comment on above: Order Comment: Speci men Type: BLOOD SPECIMEN Ordering Facility: [facility] Address: [address] [place] [address] Result Comment: The magnitude of the measured result is not indicative of the amount of antibody present. U/mL values are interpreted as follows: Negative <0.6 Equivocal 0.6 to <0.70 Positive >=0.70 Performed By: #### 7 3752-8, 5195-3, 18555-8, 65885-3 #### [facility] CLIA [id number] [address] [place] [address] [place] CMV IgM Qnon 07-28-2023 CMV IGM, QUAL Negative Normal Negative [facility] Comment on above: Order Comment: Speci men Type: BLOOD SPECIMEN Ordering Facility: [facility] Address: [address] [place] [address] Result Comment: No s erological evidence of recent exposure to Cytomegalovirus. Performed By: #### 7 3752-8, 5195-3, 63414-3, 94737-9 #### [facility] CLIA [id number] [address] [place] [address] [place] CNPNon 07-28-2023 SAYDA Telephone (REIBD) NELIL CARPENTER ([id number]) 1990 F Date Time Provider Department 07/28/23 RAHUL ZHENG During your visit today, we recorded the following information about you: Destiny Peters 07/28/2023 11:06 AM Signed Please follow up with patient completed bloodwork today, next steps after labwork. Andressa Abraham APRN.CNP 07/28/2023 12:30 PM Signed Nelli's labs are in process partner Wanda Carpenter, - labs are in process except blood type and screen - called Client Services. This lab was not collected and can not be added. test reordered. patient will have to go back to the lab to have this drawn. 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 sent [employer] message. Andressa Abraham APRN.CNP July 28, 2023 12:27 PM Allergies As of Date: 07/28/2023 (No Known Allergies) Date Reviewed: 06/15/2023 Reviewed by: Jarad, Andressa G, LOCAL SUPERINTENDENT.REHABILITATION WORKER - Fully Assessed Reason for Visit: Lila bloodwork completed today [Other] Primary Visit Diagnosis:Treatment plan provided [Z71.9] Prescriptions as of 07/28/2023 - vit/iron fum/folic ac ( 1 + 1 ORAL) Take by mouth. - mv-min/iron/folic/calc ium/vitK (WOMEN'S MULTIVITAMIN ORAL) Take by mouth. - BIOTIN ORAL Take by mouth once daily. - levonorgestrel (MIRENA) 20 mcg/24 hr IUD 1 Each by INTRAUTERINE route one time only. Problem List As Of Date: 07/28/2023 (None) Encounter Status:Closed by ANDRESSA ABRAHAM on 07/28/23 Normal [facility] HBV core Ab Ser Qlon 024 HBV core Ab Ql (S) Negative Normal Negative [facility] Comment on above: Order Comment: Speci men Type: BLOOD SPECIMEN Ordering Facility: [facility] Address: [address] [place] [address] Result Comment: No e vidence of current or past infection with Hepatitis B virus. Should recent infection be suspected, repeat testing may be considered 3-4 weeks after this draw. Performed By: #### 7 3752-8, 5195-3, 54538-8, 45227-6 #### [facility] CLIA [id number] [address] [place] [address] [place] HBV surface Ag Ser Qlon 06-30 HBV surface Ag Ql (S) Negative Normal Negative [facility] Comment on above: Order Comment: Speci men Type: BLOOD SPECIMEN Ordering Facility: [facility] Address: [address] [place] [address] Performed By: #### 7 3752-8, 5195-3, 24327-3, 90107-7 #### [facility] CLIA [id number] [address] [place] [address] [place] HCV Ab Ser Qlon 07-28-2023 HCV Ab Ql (S) Negative Normal Negative [facility] Comment on above: Order Comment: Speci men Type: BLOOD SPECIMEN Ordering Facility: [facility] Address: [address] [place] [address] Result Comment: The result suggests no evidence of active infection with Hepatitis C virus. Should recent infection be suspected, repeat testing may be considered 4-6 weeks after this draw. Performed By: #### 7 3752-8, 5195-3, 02228-7, 00176-8 #### [facility] CLIA [id number] [address] [place] [address] [place] HIV 1+2 Ab IA Qlon 4 HIV 1 and 2 Ab IA.rapid Nom (S/P/Bld) Normal [facility] Comment on above: Order Comment: Speci men Type: BLOOD SPECIMEN Ordering Facility: [facility] Address: [address] [place] [address] Result Comment: Test not indicated. Performed By: #### 7 3752-8, 5195-3, 60424-4, 29220-1 #### [facility] CLIA [id number] [address] [place] [address] [place] HIV 1+2 Ab+HIV1 p24 Ag IA Ql Non-Reactive Normal Nonreactive [facility] Comment on above: Order Comment: Speci men Type: BLOOD SPECIMEN Ordering Facility: [facility] Address: [address] [place] [address] Performed By: #### 7 3752-8, 5195-3, 52834-5, 50180-2 #### [facility] CLIA [id number] [address] [place] [address] [place] HIV immunoassay testing algorithm interpretation (S/P/Bld) [Interp] Normal [facility] Comment on above: Order Comment: Speci men Type: BLOOD SPECIMEN Ordering Facility: [facility] Address: [address] [place] [address] Result Comment: No e vidence of HIV-1 or HIV-2 infection. Should recent infection be suspected, repeat testing may be considered 2-3 weeks after this draw. [place] Rev. Code 3701.243(E): This information has been disclosed to you from confidential records protected from disclosure by state law. ???You shall make no further disclosure of this information without the specific, written, and informed release of the individual to whom it pertains or as otherwise permitted by state law. A general authorization for the release of medical or other information is not sufficient for the purpose of the release of HIV test results or diagnoses. Performed By: #### 7 3752-8, 5195-3, 11245-4, 48388-9 #### [facility] CLIA [id number] [address] [place] [address] [place] RUBELLA IGG ANTIBODYon 07-27 RUBELLA IGG AB, QUAL Negative Abnormal Positive [facility] Comment on above: Order Comment: Speci men Type: BLOOD SPECIMEN Ordering Facility: [facility] Address: [address] [place] [address] Result Comment: The result suggests no history of Rubella vaccination or exposure to Rubella virus, however, some individuals with past history of Rubella vaccination may test negative using this test as immunity to Rubella virus wanes over time after vaccination. Please correlate with vaccination history if applicable. Performed By: #### 7 3752-8, 5195-3, 34771-7, 70953-4 #### [facility] CLIA [id number] [address] [place] [address] [place] Reagin and Treponema pallidu m IgG and IgM [Interp]on 07-28-2023 T. pallidum IgG+IgM IA Ql (S) Non-Reactive Normal Nonreactive [facility] Comment on above: Order Comment: Speci men Type: BLOOD SPECIMEN Ordering Facility: [facility] Address: [address] [place] [address] Performed By: #### 7 3752-8, 5195-3, 40050-8, 78564-9 #### [facility] CLIA [id number] [address] [place] [address] [place] Reagin+T pallidum IgG+IgM Se rPl-Impon 07-28-2023 Reagin and Treponema pallidum IgG and IgM [Interp] Cannot exclude recent Treponemal infection if specimen collected within 7-10 days after appearance of suspect lesions or 2-3 weeks after an exposure. Clinical correlation is required. Normal [facility] Comment on above: Order Comment: Speci men Type: BLOOD SPECIMEN Ordering Facility: [facility] Address: [address] [place] [address] Performed By: #### 7 3752-8, 5195-3, 33722-2, 47646-3 #### [facility] CLIA [id number] [address] [place] [address] [place] TYPE + SCREEN PRENATALon ABO O Normal [facility] Comment on above: Order Comment: Speci men Type: BLOOD SPECIMEN Ordering Facility: [facility] Address: [address] [place] [address] Performed By: #### 7 3752-8, 5195-3, 49221-8, 69784-3 #### [facility] CLIA [id number] [address] [place] [address] [place] HISTORICAL AB SCR STATUS Negative Normal [facility] Comment on above: Order Comment: Speci men Type: BLOOD SPECIMEN Ordering Facility: [facility] Address: [address] [place] [address] Performed By: #### 7 3752-8, 5195-3, 10640-7, 91676-3 #### [facility] CLIA [id number] [address] [place] [address] [place] Rh Nom (Bld) Positive Normal [facility] Comment on above: Order Comment: Speci men Type: BLOOD SPECIMEN Ordering Facility: [facility] Address: [address] [place] [address] Performed By: #### 7 3752-8, 5195-3, 82112-1, 55668-0 #### [facility] CLIA [id number] [address] [place] [address] [place] TYPE AND SCREEN EXPIRATION 07/31/2023 23:59 Normal [facility] Comment on above: Order Comment: Speci men Type: BLOOD SPECIMEN Ordering Facility: [facility] Address: [address] [place] [address] Performed By: #### 7 3752-8, 5195-3, 43578-6, 63006-9 #### [facility] CLIA [id number] [address] [place] [address] [place] VARICELLA ZOSTER IGGon 07-27 VARICELLA ZOSTER IGG, QUAL Positive Normal Positive [facility] Comment on above: Order Comment: Speci men Type: BLOOD SPECIMEN Ordering Facility: [facility] Address: [address] [place] [address] Result Comment: The result suggests recent or past exposure to Varicella-Zoster virus or chickenpox vaccination or zoster vaccination. Positive result may also be seen due to presence of passively-transferred antibodies. Please correlate with patient's history. Performed By: #### 7 3752-8, 5195-3, 87581-2, 22641-3 #### [facility] CLIA [id number] [address] [place] [address] [place] CNOVon 06-08-2023 CNOV Office Visit (REIMN) NELLI CARPENTER ([id number]) 1990 F Date Time Provider Department 06/08/23 10:00 AM RAHUL ZHENG During your visit today, we recorded the following information about you: Blood pressure Weight Height Last Period 132/83 89 kg 1.6 m 06/04/12 Rahul Zheng MD 06/08/2023 10:50 AM Signed [facility] NEW PATIENT CLINIC NOTE SERVICE DATE: 06/08/2023 SERVICE TIME: 10:01 AM NAME: Nelli Carpenter This is a new consult. It required patient-provider interaction for the medical decision making as documented below. I have communicated my name and active licensure. The patient's identity and physical location were verified at the time of this visit. Either the patient or their legal small business sales representative has been informed of the risks and benefits of -- and alternatives to -- treatment through a remote evaluation and consents to proceed with the evaluation remotely. REFERRED BY: Consultation requested by self-referral for an opinion regarding fertility. My final recommendations will be communicated back to the requesting physician by way of shared Medical record or letter to requesting physician via [place] mail. No referring provider defined for this encounter. CHIEF COMPLAINT: Procreative management and counseling HISTORY OF PRESENT ILLNESS Nelli Carpenter is a 32 year old female who wishes to discuss donor insemination. The patient had a previous male partner for which she had 3 pregnancies the first was delivered normally in 2014 followed by a miscarriage in 2016 and a section in [facility] with. The was because of placenta previa at 37 weeks. She had no postoperative complications. After her delivery she had an IUD which had to be removed by hysteroscopy. She is otherwise healthy except for abnormal weight gain for which she has been prescribed Wegovy. She is a non-smoker. PLATER BARREL HISTORY: Menarche: 13 Cycle Length: 28-30 Regular Days: 7 Menstrual Flow: Moderate,Heavy Symptoms: Breast Tenderness,Mood Changes,Bloating,Cramp ing Patient's last menstrual period was 06/04/2012 (exact date). Hx STIs: yes Dyspareunia: no LABS/IMAGING: Not recently PAST MEDICAL HISTORY Diagnosis Date Asthma Encounter for IUD insertion 04/30/2012 Mirena GERD (gastroesophageal reflux disease) PAST SURGICAL HISTORY Procedure Laterality Date DELIVERY ONLY EXTRACTION ERUPTED TOOTH/EXR PAST SURGICAL HISTORY OF 10/2015 DANDC (8 weeks) FAMILY HISTORY Problem Relation Age of Onset other (daibetes [Other]) Maternal Grandmother Social History Tobacco Use Smoking status: Never Smokeless tobacco: Never Substance Use Topics Alcohol use: Yes Comment: social Drug use: No Current Outpatient Medications Medication Sig vit/iron fum/folic ac ( 1 + 1 ORAL) Take by mouth. mv-min/iron/folic/calc ium/vitK (WOMEN'S MULTIVITAMIN ORAL) Take by mouth. BIOTIN ORAL Take by mouth once daily. (Patient not taking: Reported on 06/08/2023) levonorgestrel (MIRENA) 20 mcg/24 hr IUD 1 Each by INTRAUTERINE route one time only. (Patient not taking: Reported on 06/08/2023) No current facility-administered medications for this visit. 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 [employer] Legally ?: Yes Years together: 3 Do they have children together?: No Any other Previous Pregnancies?: No Smoking History: Never Use of alchol: occassional Use of Drugs: no Medications: no ____ ASSESSMENT AND PLAN Nelli Carpenter is a 32 year old female Procreative management counseling (primary encounter diagnosis) Bmi 34.0-34.9,adult proceed to donor IUI I spent a total of 20 minutes on the date of the service which included preparing to see the patient, yegz-[id number] patient care, completing clinical documentation, obtaining and/or reviewing separately obtained history, and ordering medications, tests, or procedures Rahul Zheng MD . Rahul Zheng MD 06/08/2023 10:26 AM Signed Obstetrics and Gynecology [facility] Intrauterine Insemination Scheduling Instructions Please note: Insurance authorization/financia l clearance is required with every IUI. Call the office as soon as you decide to move forward with IUI to start the authorization/clearanc e process. If insurance authorization is not complete by (more content not included)... Normal [facility] Ambulatory Visit Summaryon 1 05-17-2022 Ambulatory Visit Summary NELLI CARPENTER :1990 Visit Date:03/16/2023 Ambulatory Visit Instructions Your Diagnosis Wrist pain Your Care Team Attending Physician - MADALYN LOZADA, TIARRA Primary Care Physician - Luis Miguel CANTU, Karen Crandall This Is Your Medications List cyclobenzaprine (Flexeril 10 mg Tab) Procedures Performed section, IUD - Removal of intrauterine device. Discharge Vitals Temperature (Oral) 36.9 ?C Heart Rate (Peripheral) 73 Blood Pressure 128/84 Height 158 cm Height 62 in Weight 87 kg Weight 191.4 lb BMI 34.85 Medications What How Much When Instructions Unchanged cyclobenzaprine (Flexeril 10 mg Tab) 1 Tablets By Mouth 3 times a day Take one by mouth three times a day Medications and Immunizations Administered Not Given influenza virus vaccine, inactivated, Postpone due to refusal Allergies No Known Allergies Problems Ongoing - Any problem that you are currently receiving treatment for. Acute sinusitis Patient Survey You may receive a survey via text or e-mail asking about your office visit. Please share your experience with us by completing your survey. We appreciate your feedback and thank you for choosing us for your care. Normal [facility] Family Medicine Office/Clini c Noteon 03-16-2023 Family Medicine Office/Clinic Note Chief Complaint right wrist pain HPI Staff 32 year old here for right wrist pain. Pt states she was digging gravel on and heard a snap noise in wrist. Has had pain ever since. Has been wearing a brace from the store. History of Present Illness I reviewed and agree with staff HPI. 32 yo female presents for right wrist. 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 she has been using a OTC brace for her wrist with some relief but the pain has not improved. she denies falling. she has been taking nothing for the pain. patient is right hand dominate. NKDA, NKA Review of Systems PHQ Score Initial Depression Screen Score: 0 SCORE Physical Exam Vitals & Measurements T: 36.9 ?C(Oral) HR: 73(Peripheral) BP: 128/84 SpO2: 96% HT: 62 in HT: 158 cm WT: 87 kg WT: 191.4 lb BMI: 34.85 General: sitting in chair holding right wrist otherwise in no acute distress Lungs: clear to auscultation throughout, no wheezing, no rales. No respiratory distress Cardio: regular rate and rhythm, no murmur Musculoskeletal: able to touch thumb to finger of all digits, able to make fist, plantar and dorsi flexion of wrist elicited mild pain, no obvious dislocation or deformity noted. Extremity: 1+ edema localized to right wrist Neurologic: cap refill to all digits< 2sec, no numbness or tingling to digits Skin: intact, no ecchymosis noted Mental Status: Alert and oriented x3. Normal mood and affect Assessment/Plan 1. Pain in right wrist (M25.531: Pain in right wrist) XR right wrist neg for fracture or dislocation. PHANI wrap was applied to right wrist. No Physical use of right wrist until pain resolves, follow up with PCP or return to clinic if symptoms do not improve in 5-7 days. Continue Tylenol ibuprofen rest ice and elevation as needed for pain and swelling. Advised to watch for numbness and tingling in digits. if numbness and tingling occur, loosen PHANI wrap. if numbness and tingling continue after PHANI loosened or if fingers turn blue, this is a medical emergency and go to ED. You should be seen in the emergency department for any worsening or concerning symptoms such as pain out of proportion, color change in the fingers, any weakness numbness or tingling to the right hand or for any other worsening or concerning symptoms. Patient verbalized understanding of tx plan. Follow-up No qualifying data available Patient Education Wrist Pain, Adult, Jpwy-dn-Yaqs Problem List/Past Medical History Ongoing Acute sinusitis Historical No qualifying data Procedure/Surgical History section, IUD - Removal of intrauterine device. Medications Flexeril 10 mg Tab, 10 mg= 1 tab(s), Oral, TID, Not taking Allergies No Known Allergies Social History Tobacco Never (less than 100 in lifetime) Tobacco Use:. Never Smokeless Tobacco Use:., 03/16/2023 Immunizations Vaccine Date Status Comments influenza virus vaccine, inactivated - Not Given Postpone due to refusal SARS-CoV-2 (COVID-19) mRNA-1273 vaccine 08/17/2020 Recorded SARS-CoV-2 (COVID-19) mRNA-1273 vaccine 07/20/2020 Recorded influenza virus vaccine, inactivated 12/10/2016 Recorded measles/mumps/rubella virus vaccine 12/08/2003 Recorded hepatitis B pediatric vaccine 12/08/2003 Recorded measles/mumps/rubella virus vaccine 10/27/1996 Recorded Hib, unspecified formulation 02/08/1993 Recorded DTaP, unspecified formulation 02/08/1993 Recorded Hib, unspecified formulation 02/07/1992 Recorded DTaP, unspecified formulation 02/07/1992 Recorded Hib, unspecified formulation 1991 Recorded DTaP, unspecified formulation 1991 Recorded Hib, unspecified formulation 1991 Recorded DTaP, unspecified formulation 1991 Recorded Normal [facility] Comment on above: Result Comment: Elec tronically Signed By: Zach BOWLING, Rip Hernández\.br\Date and Time Signed: 03/16/23 16:13 EST Patient Educationon 03-16-20 23 Patient Education Orthopedics Wrist Pain, Adult There are many things that can cause wrist pain. Some common causes include: ? An injury to the wrist. ? Using the joint too much. ? A condition that causes too much pressure to be put on a nerve in the wrist (carpal tunnel syndrome). ? Wear and tear of the joints that happens as a person gets older (osteoarthritis). ? A condition that causes swelling and stiffness in the joints (arthritis). Sometimes, the cause of wrist pain is not known. Often, the pain goes away when you follow your doctor's instructions for easing pain at home. This may include resting your wrist, icing your wrist, or using a splint or an elastic wrap for a short time. It is important to tell your doctor if your wrist pain does not go away. Follow these instructions at home: If you have a splint or elastic wrap: ? Wear the splint or wrap as told by your doctor. Take it off only as told by your doctor. Ask if you can take it off for bathing. ? Loosen the splint or wrap if your fingers: ? Tingle. ? Become numb. ? Turn cold and blue. ? Check the skin around the splint or wrap every day. Tell your doctor about any concerns. ? Keep the splint or wrap clean. ? If the splint or wrap is not waterproof: ? Do not let it get wet. ? Cover it with a watertight covering when you take a bath or shower. Managing pain, stiffness, and swelling ? If told, put ice on the painful area. To do this: ? If you have a removable splint or wrap, take it off as told by your doctor. ? Put ice in a plastic bag. ? Place a towel between your skin and the bag or between your splint or wrap and the bag. ? Leave the ice on for 20 minutes, 2?3 times a day. ? Move your fingers often. ? Raise (elevate) the injured area above the level of your heart while you are sitting or lying down. Activity ? Rest your wrist as told by your doctor. ? Return to your normal activities as told by your doctor. Ask your doctor what activities are safe for you. ? Ask your doctor when it is safe to drive if you have a splint or wrap on your wrist. ? Do exercises as told by your doctor. General instructions ? Pay attention to any changes in your symptoms. ? Take gunr-cvb-tkewzjs and prescription medicines only as told by your doctor. ? Keep all follow-up visits as told by your doctor. This is important. Contact a doctor if: ? You have a sudden, sharp pain in the wrist, hand, or arm that is different or new. ? The swelling or bruising on your wrist or hand gets worse. ? Your skin: ? Becomes red. ? Gets a rash. ? Has open sores. ? Your pain does not get better. ? Your pain gets worse. ? You have a fever or chills. Get help right away if: ? You lose feeling in your fingers or hand. ? Your fingers turn white, very red, or cold and blue. ? You cannot move your fingers. Summary ? There are many things that can cause wrist pain. ? It is important to tell your doctor if your wrist pain does not go away. ? You may need to wear a splint or a wrap for a short period of time. ? Return to your normal activities as told by your doctor. Ask your doctor what activities are safe for you. This information is not intended to replace advice given to you by your health care provider. Make sure you discuss any questions you have with your health care provider. Document Revised: 02/02/2020 Document Reviewed: 02/02/2020 Elsevier Patient Education ? 2022 [employer] Normal [facility] XR Wrist 3+ Views Righton XR Wrist 3+ Views Right Exam Date/Time: 03/16/2023 15:31 EST Reason for Exam: Pain, Non Traumatic Report IMPRESSION: NO DISPLACED FRACTURE OR SIGNIFICANT POSTTRAUMATIC COMPLICATION IDENTIFIED. EXAM: XR Wrist 3+ Views Right DATE: 03/16/2023 3:30 PM CLINICAL HISTORY: Pain, Non Traumatic. COMPARISON: None available. TECHNIQUE: PA, lateral, oblique, and navicular radiographs of the right wrist were obtained. FINDINGS: There is no fracture, dislocation, worrisome bone destruction, radiodense foreign bodies, or other posttraumatic complication identified. Developmental incomplete lunatotriquetral coalition. Ordering Provider: TIARRA KATZ FINAL REPORT Dictated: 03/16/2023 3:49 pm Warren Lozano MD Signed (Electronic Signature): 03/16/2023 3:49 pm Signed by: Warren Lozano MD Transcribed by: TATE Technologist: JUAN DAVID Technical Comments Radiation Dose: Kar in mGy = . DAP = . Normal [facility] Covid 19 Resultson 1 SARS-CoV-2 (COVID-19) RNA PENNY+probe Ql (Unsp spec) NEGATIVE COVID-19 Test Coronaviruses are common world-wide and are the cause of many common colds. SARS-COV2 is a new coronavirus that began circulating worldwide in 2019 so we are calling it COVID-19. It has been estimated that four out of five patients with COVID-19 will recover at home without the need for medical attention. Symptoms of COVID-19 may include cough, fever, shortness of breath, loss of taste or smell and other flu-like symptoms including chills, sore muscles, sore throat, and headache. Severe illness is more common in older people and people with other health problems such as high blood pressure, obesity, and immune system problems. If the test is positive, you have COVID-19. You will be contacted by the ordering physicians office and instructed to remain on home isolation, in accordance with CDC guidelines. You may also be contacted by the [facility] to see if any of your close contacts may have been exposed to the virus and need to quarantine. If the test is negative, you likely do not have COVID-19 at this time, but you still may have a different illness that can spread to other people (like Influenza, or the Flu) and could still be at risk for getting COVID-19. We recommend that you stay away from other people to limit the spread of illness until your symptoms are improving and you are fever-free for 24 hours without the use of fever lowering medications such as acetaminophen or ibuprofen. No test is 100% accurate so if you are still concerned you may have COVID-19, talk to your doctor about the need to continue to stay away from others. Medicines Unless your provider told you not to use the following: Acetaminophen (Tylenol and others) is generally safe. Anti-inflammatory medications, such as Ibuprofen (Advil or Motrin) or Naproxen (Aleve) can also be used. Blra-nai-uzdthor cough and cold medicines can be used according to the instructions on the package. Some nrgr-cdf-kzfdsnd medicines also contain acetaminophen. Make sure you are not taking more than your recommended dose. For those not hospitalized, there is no specific treatment available for this illness. Antibiotics do not treat Coronaviruses. Follow-Up Follow up with your doctor by scheduling a virtual visit or consider follow-up at one of our urgent care fever clinics. If you are having difficulty breathing, or are very weak and having difficulty standing, this is a medical emergency. Call 911 or have someone take you to the nearest emergency room immediately. If possible, wear a facemask. Additional guidance from the CDC for patients who tested POSITIVE for COVID-19 How to isolate: Isolate yourself in a specific room at home and limit your contact with others. Use a separate bathroom from other members of the household, when possible. Leave home only to get essential medical care. Do not go to work, school or public areas. Avoid using public transportation, ride-sharing, or taxis. Restrict contact with pets and other animals. If you must care for your pet or be around animals while you are sick, wash your hands before and after your interaction and wear a facemask. Make sure that shared spaces in the home have good airflow, such as by an air conditioner or an opened window, weather permitting. Personal Hygiene Procedures: Wear a face mask when in the same room as other people or pets. If a face mask interferes with your breathing, others should wear a mask when sharing space with you. Frequent hand-washing: wash your hands with soap and water for at least 20 seconds. If soap and water are not available, use alcohol-based hand chop saw operator. Avoid touching your eyes, nose, and mouth with unwashed hands. Household Hygiene Procedures: Avoid sharing personal household items such as dishes, glassware, cups, eating utensils, towels or bedding with other people or pets in your home. After use, these items should be washed with soap and hot water. Disinfect all high-touch surfaces every day with antibacterial cleaning solutions such as Lysol wipes, bleach, cleansers, etc. High-touch surfaces include tabletops, doorknobs, bathroom fixtures, toilets, phones, keyboards, tablets and bedside tables. Immediately clean any surfaces that may have blood, poop or body fluids on them, using antibacterial cleaning solutions such as Lysol wipes, bleach, cleansers, etc. If clothing or bedding come into contact with blood, poop or body fluids, they should be washed immediately. Follow the directions on the laundry detergent and clothing labels but hot water is recommended when possible. Stopping home isolation precautions: If possible, consult your doctor before stopping home isolation precautions. According to the CDC, you can discontinue home isolation precautions when you have met both of these criteria: Your fever and respiratory symptoms have been gone for 24 de (more content not included)... Normal [facility] INFLUENZA A/B, COVID 2019 PC R,SYMPTOMATICon 03-12-2021 INFLUENZA A, PCR Not detected Normal Not Detected [facility] Comment on above: Result Comment: Resp iratory virus testing is performed routinely by PCR for Influenza A/B and RSV. If Influenza and RSV PCR are negative, testing for parainfluenza 1,2,3 viruses and adenovirus is routinely performed for oncology inpatients and intensive care unit patients at [facility] and is available on request on other patients by calling Laboratory Client Services at [phone]. Not Detected results do not preclude Influenza A/B or RSV infections since the adequacy of sample collection or low viral burden may impact the clinical sensitivity of this test method. Performed By: #### C OINP #### [facility] [address] [place] [id number] INFLUENZA B, PCR Not detected Normal Not Detected [facility] Comment on above: Result Comment: Resp iratory virus testing is performed routinely by PCR for Influenza A/B and RSV. If Influenza and RSV PCR are negative, testing for parainfluenza 1,2,3 viruses and adenovirus is routinely performed for oncology inpatients and intensive care unit patients at [facility] and is available on request on other patients by calling Laboratory Client Services at [phone] Not Detected results do not preclude Influenza A/B or RSV infections since the adequacy of sample collection or low viral burden may impact the clinical sensitivity of this test method. . The TaqManTM SARS-CoV-2, Flu A, Flu B Multiplex Assay is a multiplex, real-time RT-PCR assay for the detection of RNA from the SARS-CoV-2, Influenza A, and Influenza B viruses. A negative result does not preclude the possibility of SARS-CoV-2, Influenza A, or Influenza B infections, and should not be used as the sole basis for patient management decision as a negative result may be caused by very low levels of infection, collection errors, or testing errors. . This test was developed and its performance characteristics were determined by the Microbiology Laboratory, Department of Pathology, [facility], [place], [place]. It has not been cleared or approved by the US Food and Drug Administration; however, FDA clearance or approval is not currently required for clinical use. This test should not be regarded as investigational or for research purposes. Performed By: #### C OINP #### [facility] [address] [place] [address] SARS-CoV-2 (COVID-19) RNA PENNY+probe Ql (Unsp spec) Not detected Normal Not Detected [facility] Comment on above: Result Comment: . This assay is designed to detect the N, ORF1ab and/or S genes of SARS-CoV-2 via nucleic acid amplification. A Negative (NOT DETECTED) result does not preclude 2019-nCoV infection since the adequacy of sample collection and/or low viral burden may result in presence of viral nucleic acids below the clinical sensitivity of this test method. Negative (NOT DETECTED) result should not be used as the sole basis for treatment or other patient management decisions. Rather negative results should be combined with clinical observations, patient history, and epidemiological information to make patient management decisions. Fact sheet for providers: https://www.fda.gov/media/570334/download Fact sheet for patients: https://www.fda.gov/media/178124/download This test has received FDA Emergency Use Authorization (EUA) and has been verified by [facility] ([facility]). This test is only authorized for the duration of time that circumstances exist to justify the authorization of the emergency use of in vitro diagnostic tests for the detection of SARS-CoV-2 virus and/or diagnosis of COVID-19 infection under section 564(b)(1) of the Act, 21 U.S.C. 360bbb-3(b)(1), unless the authorization is terminated or revoked sooner. [facility] is certified under CLIA-88 as qualified to perform high complexity testing. Testing is performed in the [facility] laboratories located at [address] [place] [address]. Performed By: #### C OINP #### [address] [place] [address] INFLUENZA A/B, COVID 2019 PC R,SYMPTOMATICon 03-11-2021 DATE OF SYMPTOM ONSET [[id number]]? [id number] Normal [facility] Comment on above: Performed By: #### C OINP #### [address] [place] [address] Lab Specimen Source Nasal, Nasopharyngeal Normal [facility] Comment on above: Performed By: #### C OINP #### [address] [place] [address] Provider Note - ED v2on 02-27 Provider Note - ED v2 Provider Note - ED v2: Chart Review HISTORY OF PRESENTING ILLNESS NELLI is a 30 year old Female and was seen by me at 11-Mar-2021 10:41 for a chief complaint of cold symptoms. The historian is the patient. Additional Details: Patient presents with 7-day history of cold symptoms. Patient endorses cough, sinus congestion/drainage, fatigue, headache. Patient denies fever, chills, nausea, vomiting, diarrhea, chest pain, shortness of breath, body aches, loss of sense of smell/taste. She's taken tylenol for her symptoms. Triage Information: Most recent Vital Sign Value Date PAST MEDICAL HISTORY ATTESTATION: I have reviewed and confirmed nurse's/medic's notes for patient's medications, allergies, and medical, surgical, family and social history ALLERGIES/INTOLERANCES : No Known Allergies HEALTH HISTORY: No documented data. OUTPATIENT MEDICATIONS: Home Medications Review Status for Reconciliation: Complete Med Status: Patient Currently Takes Medications Drug Name: amoxicillin-clavulanat e 875 mg-125 mg oral tablet Instructions: 1 tab(s) orally 2 times a day Drug Name: fluticasone 50 mcg/inh nasal spray Instructions: 1 spray(s) in each nostril once a day Drug Name: brompheniramine/pseudo ephedrine/dextromethor foley 1tq-84dx-10sc/5 mL oral syrup Instructions: 5 milliliter(s) orally every 4 to 6 hours, As Needed Drug Name: cetirizine 10 mg oral tablet Instructions: 1 tab(s) orally once a day SIGNIFICANT EVENTS: Other Description:NO SURGICAL HISTORY THIS YEAR Additional Notes:02/2021 Description:NON SMOKER Additional Notes:02/2021 Past Medical History Description:NO CHRONIC HEALTH ISSUES Additional Notes:02/2021 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: Is : no Is : no REVIEW OF SYSTEMS CONSTITUTIONAL: POSITIVE for: malaise Negative for: chills, diaphoresis and fever ENMT Ears: Negative for: hearing disturbance Nose: POSITIVE for: congestion and discharge Throat/Neck: POSITIVE for: throat pain CARDIOVASCULAR: Negative for: chest pain RESPIRATORY: POSITIVE for: cough Negative for: dyspnea and wheezing GASTROINTESTINAL: Negative for: diarrhea, nausea and vomiting; MUSCULOSKELETAL: Negative for: pain NEUROLOGICAL: POSITIVE for: headache; RESULTS/VITAL SIGNS VITAL SIGNS: T PRBP SpO2O2(LPM) %FiO2 Method 11-Mar-2021 10:17:[id number] 97 PHYSICAL EXAM CONSTITUTIONAL: Appearance: well appearing Development: well developed Distress: no apparent Manner: appropriate for situation Mentation: awake and alert Mood: appropriate Nourishment: well HENMT: Head Examination: atraumatic Face: no signs of abnormality Ear: - BILATERAL TM's CLEAR EYES: Bilteral Eyes: clear Left Conjunctiva: clear Right Conjunctiva: clear CARDIOVASCULAR: Cardiac Rhythm: regular Cardiac Rate: normal RESPIRATORY: Respiratory Distress: no respiratory distress Breath Sounds: normal breath sounds Rales: no rales Wheezes: no wheezes Rhonchi: no rhonchi NEUROLOGICAL: Level of Consciousness: alert and follows commands Memory: memory/cognition intact Speech: clear Gait and Weight Bearing: normal SKIN: Skin normal color for race, warm, dry and intact. No evidence of trauma. PSYCHIATRIC: Alert and oriented to person, place, time/situation. normal mood and affect. No apparent risk to self or others. MEDICAL DECISION MAKING/ED COURSE MDM/ED COURSE: Differential Diagnosis: (URI, COVID, sinusitis, influenza) Discussed Findings with: patient Data Reviewed: vital signs Awaiting: lab results Treatment Plan: Discussed supportive measures, and symptom management. Discussed etiology of more routine viral infection versus COVID infection. Ordered bromfed, flonase, cetirizine, and augmentin. Swabbed for COVID, advised pt turnaround time is about 24 hours, advised self-isolation until results come back. Advised pt to continue monitoring symptoms. Discussed s/s of respiratory distress, and advised f/u if patient develops these s/s or if current s/s increase/worsen. Patient verbalized understanding. The pt's clinical presentation is otherwise unremarkable at this time. Based on exam and clinical findings the pt is stable for discharge with instructions to follow up with primary care or seek emergency medical attention for worsening symptoms or any new concerns. CLINICAL IMPRESSION Diagnosis/Annotation: ED Dx Name:URI (upper respiratory infection) Code:J06.9 Disposition: discharged Type: home ATTESTATION CRITICAL CARE TIME Is this a critically ill patient: no Electronic Signatures for Addendum Section: Filomena Zamora (LOCAL SUPERINTENDENT-REHABILITATION WORKER) (Signed Addendum 12-Mar-2021 09:58) Left message for call back regarding test results for pt, and her 2 daughters. Filomena Zamora (LOCAL SUPERINTENDENT-REHABILITATION WORKER) (Signed Addendum 12-Mar-2021 13:53) Spoke with patient and advised her of negative Covid test results, marlo (more content not included)... Normal [facility] Hemoglobin and Hematocriton 12-10-2016 Hematocrit (HCT) 30.2 % Low 36.5-46.6 [facility] Comment on above: Performed By: #### 2 [id number] ####[facility] [address] [place] [address] Hemoglobin mass conc (Bld) 9.8 g/dL Low 11.8-15.3 [facility] Comment on above: Performed By: #### 2 [id number] ####[address] [place] [address] CBC With Differentialon 11-28 Basophils Auto #/vol (Bld) 0.05 10*3/uL Normal 0.01-0.07 [facility] Comment on above: Performed By: #### 2 [id number] ####[facility] [address] [place] [address] Basophils/100 WBC Auto (Bld) 0.5 % Normal 0.1-1.2 [facility] Comment on above: Performed By: #### 2 [id number] ####[address] [place] [address] Eosinophils 0.08 10*3/uL Normal 0.04-0.50 [facility] Comment on above: Performed By: #### 2 963088 ####[facility] [address] [place] [address] Eosinophils/100 leukocytes 0.7 % Normal 0.0-8.1 [facility] Comment on above: Performed By: #### 2 [id number] ####[facility] [address] [place] [address] Erythrocyte distribution width Auto Ratio (RBC) 14.8 % Normal 12.0-15.4 [facility] Comment on above: Performed By: #### 2 [id number] ####[facility] [address] [place] [address] Erythrocytes (RBC) 0.0 /100{WBCs} Normal [facility] Comment on above: Performed By: #### 2 186966 ####[facility] [address] [place] [address] Erythrocytes (RBC) 3.87 10*6/uL Normal 3.85-5.10 [facility] Comment on above: Performed By: #### 2 670822 ####[facility] [address] [place] [address] Erythrocytes (RBC) 0.00 10*3/uL Normal [facility] Comment on above: Performed By: #### 2 962925 ####[facility] [address] [place] [address] Hematocrit (HCT) 34.5 % Low 36.5-46.6 [facility] Comment on above: Performed By: #### 2 126005 ####[address] [place] [address] Hemoglobin mass conc (Bld) 11.4 g/dL Low 11.8-15.3 [facility] Comment on above: Performed By: #### 2 566734 ####[facility] [address] [place] [address] Imm Grans Absolute 0.55 10*3/uL High 0.00-0.21 [facility] Comment on above: Performed By: #### 2 239183 ####[facility] [address] [place] [address] Immature granulocytes #/vol (Bld) 5.0 % Normal [facility] Comment on above: Performed By: #### 2 662723 ####[facility] [address] [place] [address] Lymphocytes 1.91 10*3/uL Normal 0.40-2.84 [facility] Comment on above: Performed By: #### 2 369935 ####[facility] [address] [place] [address] Lymphocytes/100 leukocytes 17.2 % Normal 15.7-50.5 [facility] Comment on above: Performed By: #### 2 561831 ####[facility] [address] [place] [address] MCH 29.5 pg Normal 27.5-33.0 [facility] Comment on above: Performed By: #### 2 599844 ####[facility] [address] [place] [address] MCHC mass conc (RBC) 33.0 g/dL Normal 30.1-35.0 [facility] Comment on above: Performed By: #### 2 112485 ####[facility] [address] [place] [address] MCV 89.1 fL Normal 85.4-100.0 [facility] Comment on above: Performed By: #### 2 875170 ####[facility] [address] [place] [address] Monocytes 0.84 10*3/uL High 0.25-0.83 [facility] Comment on above: Performed By: #### 2 015703 ####[facility] [address] [place] [address] Monocytes/100 leukocytes 7.6 % Normal 4.8-12.7 [facility] Comment on above: Performed By: #### 2 117642 ####[facility] [address] [place] [address] Neutrophils 7.66 10*3/uL High 1.95-6.85 [facility] Comment on above: Performed By: #### 2 353859 ####[facility] [address] [place] [address] Neutrophils/100 leukocytes 69.0 % Normal 36.8-73.2 [facility] Comment on above: Performed By: #### 2 925721 ####[facility] [address] [place] [address] Platelet mean volume (PMV) 10.7 fL Normal 9.9-12.1 [facility] Comment on above: Performed By: #### 2 945969 ####[facility] [address] [place] [address] Platelets 197 10*3/uL Normal 155-404 [facility] Comment on above: Performed By: #### 2 719102 ####[facility] [address] [place] [address] RDW SD 48.2 fL Normal 39.3-48.6 [facility] Comment on above: Performed By: #### 2 146379 ####[facility] [address] [place] [address] WBC (Leukocytes) 11.1 10*3/uL High 4.4-9.9 [facility] Comment on above: Performed By: #### 2 [id number] ####[facility] [address] [place] [address] Pathology ([facility])on 12-09-2016 Pathology ([facility]) FINAL SURGICAL PATHOLOGY [id number] FINAL DIAGNOSISPLACENTA-THIR D TRIMESTER PLACENTA WITH ACCESSORY LOBE , 470 GRAMS.FOCAL FIBRIN PLAQUE FORMATION.FOCAL DYSTROPHIC MICROCALCIFICATIONS.TH REE-VESSEL UMBILICAL CORD, NEGATIVE FOR FUNISITIS. MEMBRANES, NEGATIVE FOR CHORIOAMNIONITIS.CLINI DASHA HISTORY: 37 WEEKS INTRAUTERINE , HISTORY OF PREVIA WITH BLEEDINGOPERATION:PRIM JILL SECTIONSPECIMEN(S):(A) PLACENTA, THIRD TRIMESTERPerformed at [facility], [address] [place] [address] [id number] DESCRIPTION:Received fresh, labeled with the patient's name, is a placenta. Placentalmembranes are complete. Membrane insertion is marginal. The point of membranerupture is indeterminate. The umbilical cord is pale yellow, measures 42.7 cmin length, and inserts into the placenta, 4 cm. from the margin. On section,the cord has three vessels and measures 1.5 x 1.3 cm. The placenta is discoidin shape, measures 24 x 18 x 2.5-3 cm. and weighs 470 gm without the cord ormembranes. The surface is blue. Maternal surface is questionableincomplete . Cut surface is dark red and spongy.The following gross abnormalities are noted. The entire maternal surface isdisrupted floppy and questionable incomplete. There is a marginal pale yellowrubbery area on the maternal surface measuring 2.5 x 1 x 0.6 cm. There is oneatrophied accessory lobe located 5.5 cm from the margin of the disc. The lobemeasures 5.5 x 4 x 0.1 cm. The velamentous vessels are intact and range from0.05-0.1 cm in diameter.Representativ e sections of cord, membranes, and placenta are submitted in sixcassettes.TASSummar y of cassettes:A1 - cordA2, A3 - membranesA4, A5, A6 - small business sales representative sections of placentaSigned Out by:ANABEL PITTMANeported: 12/11/2016 Normal [facility] Comment on above: Performed By: #### S UR ####[address] [place] [address] Red Blood Cellson 12-09-2016 Erythrocytes (RBC) Normal [facility] Comment on above: Result Comment: [id number] released Performed By: #### R C ####[facility] (UNKNOWN)[address] [address] Type and Screenon 12-09-2016 Antibody Screen Negative Normal [facility] Comment on above: Performed By: #### T S3 ####[address] [place] [address] Group and Rh Positive Normal [facility] Comment on above: Performed By: #### T S3 ####[address] [address] PREG COMPL ECHO W/O NIKKI ALIZA VEYon 12-03-2016 PREG COMPL ECHO W/O NIKKI SURVEY DATE OF EXAM: Dec 03 2016 3:38PMCLINICAL HISTORY/ Name: SOLEDAD MCCULLOUGHTUDY:PREG COMPL ECHO W/O NIKKI SURVEY 12/03/2016 3:38 pmINDICATION:Growth assessment. Placenta previa.COMPARISON:Repo rt from a previous obstetrical ultrasound of 10/30/2016 was reviewed. DERING CLINICIAN:KEITH ROSAS:Brenda guaman ultrasound of the pelvis was performed. Evaluation of the female pelvis was performed by transabdominal technique. Static images were obtained for remote interpretation.FINDING S:There is a single live intrauterine gestation in cephalic presentation.BPD 9.5 cm, 38 weeks, 5 daysHC 34.3 cm, 39 weeks, 5 daysAC 35 cm, 39 weeks, 0 daysFL 7.2 cm, 36 weeks, 5 daysEstimated weight is 3499 g plus or minus 511 g.This results in a composite gestational age of 38 weeks, 4 days, +/- 3 weeks. The estimated date of delivery by ultrasound is 12/13/2016. The patient's LMP was 03/25/2016,therefore by dates the fetus should be 36 weeks 1 day. heart rate measures 126 BPM. Evaluation of anatomy was not performed.The placenta is located posteriorly. Complete placenta previa is again demonstrated as previously described. The amniotic fluid volume is within normal limits with SHARON = 14.2 cm.Maternal anatomy: Cervix appears closed with an approximate length of 3.3 cm.CONCLUSION: IMPRESSION:Single live intrauterine gestation corresponding to 38 weeks, 4 days, +/- 3 weeks.Evaluation of anatomy was not performed.Estimated weight is 3499 g plus or minus 511 g.Complete placenta previa is again visualized, as previously described. Cervix appears closed with length of 3.3 cm. Normal [facility] Healthcare Culture Urineon 11-06-2016 Culture Urine STATUS: FINAL REPORT SITE: SOURCE: Urine Culture Urine: <1,000 cfu/ml--No growth Normal [facility] Comment on above: Performed By: #### [id number] ####[facility] [address] [place] [address] Vital Signs Date Time Vital Sign Value Performing Clinician Facility 02-28-2024 09:00-0500 Blood Pressure Location VOTAW KATZ [facility] 02-28-2024 09:00-0500 Body temperature 98.96 [degF] [facility] 02-28-2024 09:00-0500 Diastolic blood pressure 80 mm[Hg] VOTAW KATZ [facility] 02-28-2024 09:00-0500 Heart rate 92 /min [facility] 02-28-2024 09:00-0500 SaO2% (BldA) [Mass fraction] 98 % TIARRA KATZ [facility] 02-28-2024 09:00-0500 Systolic blood pressure 124 mm[Hg] TIARRA KATZ [facility] 12-28-2023 08:37-0400 Body height 160 cm Karen Bolanos MD Work Phone: [facility] 12-28-2023 08:37-0400 Body mass index (BMI) [Ratio] 37.02 kg/m2 Karen Bolanos MD Work Phone: [facility] 12-28-2023 08:37-0400 Body temperature 98.6 [degF] Karen Bolanos MD Work Phone: [facility] 12-28-2023 08:37-0400 Body weight 94.8 kg Karen Bolanos MD Work Phone: [facility] 12-28-2023 08:37-0400 Diastolic blood pressure 78 mm[Hg] Karen Bolanos MD Work Phone: [facility] 12-28-2023 08:37-0400 Heart rate 76 /min Karen Bolanos MD Work Phone: [facility] 12-28-2023 08:37-0400 SaO2% (BldA) [Mass fraction] 98 % Karen Bolanos MD Work Phone: [facility] 12-28-2023 08:37-0400 Systolic blood pressure 116 mm[Hg] Karen Bolanos MD Work Phone: [facility] 06-08-2023 09:50-0400 Body height 160 cm Rahul Zheng MD Work Phone: [facility] 06-08-2023 09:50-0400 Body weight 89 kg Rahul Zheng MD Work Phone: [facility] 06-08-2023 09:50-0400 Diastolic blood pressure 83 mm[Hg] aRhul Zheng MD Work Phone: [facility] 06-08-2023 09:50-0400 Systolic blood pressure 132 mm[Hg] Rahul Zheng MD Work Phone: [facility] 03-16-2023 15:08-0500 Blood Pressure Location TIARRA KATZ [facility] 03-16-2023 15:08-0500 Body temperature 98.42 [degF] [facility] K[facility] 03-16-2023 15:08-0500 Diastolic blood pressure 84 mm[Hg] [facility] K[facility] 03-16-2023 15:08-0500 Heart rate 73 /min [facility] 03-16-2023 15:08-0500 SaO2% (BldA) [Mass fraction] 96 % [facility] 03-16-2023 15:08-0500 Systolic blood pressure 128 mm[Hg] VOTAW KATZ [facility] 03-11-2021 12:17-0500 Body height 160 cm Karen Luis Miguel Other Phone: [facility] 03-11-2021 12:17-0500 Body temperature 98.06 [degF] Karen Luis Miguel Other Phone: [facility] 03-11-2021 12:17-0500 Diastolic blood pressure 67 mm[Hg] Karen Luis Miguel Other Phone: [facility] 03-11-2021 12:17-0500 Heart rate 78 /min Karen Luis Miguel Other Phone: [facility] 03-11-2021 12:17-0500 Respiratory rate 20 /min Karen Luis Miguel Other Phone: [facility] 03-11-2021 12:17-0500 SaO2% (BldA) [Mass fraction] 97 % Karen Bolanos Other Phone: [facility] 03-11-2021 12:17-0500 Systolic blood pressure 101 mm[Hg] Karen Bolanos Other Phone: [facility] Encounters Encounter Date Encounter Type Care Provider Facility Start: 04-19-2024 End: 04-19-2024 Bamboo flowsheet Andrea Conner DO Work Phone: [facility] Start: 04-19-2024 End: 04-19-2024 Bamboo flowsheet Andrea Conner DO Work Phone: [facility] Start: 03-14-2024 End: 03-14-2024 Clinisync Result Encounter Andrea Conner DO Work Phone: [facility] Unsolicited Start: 03-14-2024 End: 03-14-2024 Clinisync Result Encounter Andrea Conner DO Work Phone: [facility] Unsolicited Start: 03-11-2024 End: 03-11-2024 Office outpatient visit 5 minutes [facility] Conner Nurse [facility] Comment on above: GA: 11w6d Start: 03-11-2024 End: 03-11-2024 ambulatory KAREN BOLANOS Not Available Start: 02-28-2024 End: 02-28-2024 ambulatory TIARRA KATZ Facility:[facility] Start: 02-28-2024 End: 02-28-2024 Patient encounter procedure TIARRA KATZ [facility] Start: 02-16-2024 End: 02-16-2024 ambulatory Andressa Abraham APRN.REHABILITATION WORKER Work Phone: [facility] Comment on above: Records Start: 02-09-2024 End: 02-09-2024 Nursing evaluation of patient and report Virginia Marie MD Work Phone: [facility] Comment on above: resulting from assisted reproductive technology in first trimester Start: 02-09-2024 End: 02-09-2024 ambulatory ANDRESSA ABRAHAM Facility:[facility] Start: 01-21-2024 End: 01-21-2024 ambulatory JESSI YOO Facility:[facility] Start: 01-20-2024 End: 01-20-2024 ambulatory Andressa Abraham LOCAL SUPERINTENDENT.REHABILITATION WORKER Work Phone: [facility] Comment on above: resulting from assisted reproductive technology in first trimester (Primary Dx) Start: 01-20-2024 End: 01-20-2024 Telemedicine consultation with patient Andressa Abraham LOCAL SUPERINTENDENT.REHABILITATION WORKER Work Phone: [facility] Start: 01-19-2024 End: 01-19-2024 ambulatory JESSI YOO Facility:[facility] Start: 01-18-2024 End: 01-18-2024 Telephone encounter Andressa Abraham LOCAL SUPERINTENDENT.REHABILITATION WORKER Work Phone: [facility] Comment on above: +hpt 01/15 after an iui Start: 01-02-2024 End: 01-02-2024 ambulatory ANYI GANT Facility:[facility] Start: 01-02-2024 End: 01-02-2024 Patient encounter procedure Anyi Gant MD Work Phone: [facility] Comment on above: Encounter for artifi cial insemination (Primary Dx) Procreative manageme nt (Primary Dx) Start: 12-30-2023 End: 12-30-2023 ambulatory ANDRESSA ABRAHAM Facility:[facility] Start: 12-28-2023 End: 12-28-2023 Shreyas Bolanos MD Work Phone: [facility] Start: 12-28-2023 End: 12-28-2023 Shreyas Bolanos MD Work Phone: [facility] Start: 12-28-2023 End: 12-28-2023 Office outpatient visit 15 minutes Karen Bolanos MD Work Phone: [facility] Comment on above: Infertility, female (Primary Dx); BMI 37.0-37.9, adult; Morbid obesity (CMS/HCC) Start: 12-28-2023 End: 12-28-2023 ambulatory KAREN BOLANOS Not Available Start: 12-05-2023 End: 12-05-2023 ambulatory MYRIAM DOMINGUEZ Facility:[facility] Start: 12-05-2023 End: 12-05-2023 Patient encounter procedure Andrology [facility] [employer] Work Phone: [facility] Comment on above: Procreative manageme nt (Primary Dx) Female infertility ( Primary Dx) Start: 12-04-2023 End: 12-04-2023 ambulatory Andressa Abraham APRN.REHABILITATION WORKER Work Phone: [facility] Comment on above: Financial clearance Start: 11-23-2023 End: 11-23-2023 ambulatory Andressa Abraham APRN.LEXUS Work Phone: [facility] Comment on above: Reproductive mgmt, i nfertility due to male factor (Primary Dx) Start: 11-23-2023 End: 11-23-2023 Telemedicine consultation with patient Andressa Abraham APRN.CNP Work Phone: [facility] Start: 10-29-2023 E-mail encounter fro m caregiver Vidhya Pitt APRN.LEXUS Work Phone: [facility] Start: 10-29-2023 Follow-up encounter Vidhya osorio APRN.REHABILITATION WORKER Work Phone: [facility] Comment on above: Follow up Start: 10-16-2023 End: 10-16-2023 ambulatory JESSI YOO Facility:[facility] Start: 10-12-2023 Telephone encounter Andressa Abraham APRN.REHABILITATION WORKER Work Phone: [facility] Comment on above: +ovulation test Sat& Sund d14 & 15 partner calling Start: 10-05-2023 ambulatory Andressa Deleon angelita LOCAL SUPERINTENDENT.REHABILITATION WORKER Work Phone: [facility] Comment on above: Doner Start: 09-11-2023 End: 09-11-2023 ambulatory ANDRESSA ABRAHAM Facility:[facility] Start: 09-11-2023 End: 09-11-2023 Patient encounter procedure Andressa Abraham LOCAL SUPERINTENDENT.REHABILITATION WORKER Work Phone: [facility] Comment on above: Encounter for fertil ity planning (Primary Dx) Start: 07-28-2023 Telephone encounter Rahul carroll MD Work Phone: [facility] Comment on above: Lila bloodwork compl eted today Start: 07-28-2023 End: 07-28-2023 ambulatory ANDRESSA ABRAHAM Facility:[facility] Start: 07-02-2023 End: 07-02-2023 ambulatory ANDREA PRIETO Not Available Start: 06-15-2023 End: 06-15-2023 Telemedicine consultation with patient Andressa Abraham LOCAL SUPERINTENDENT.REHABILITATION WORKER Work Phone: [facility] Start: 06-15-2023 End: 06-15-2023 ambulatory Andressa Abraham LOCAL SUPERINTENDENT.REHABILITATION WORKER Work Phone: [facility] Comment on above: Encounter for fertil ity planning (Primary Dx); Encounter for other genetic testing of female for procreative management Start: 06-08-2023 End: 06-08-2023 ambulatory RAHUL ZHENG Facility:[facility] Start: 06-08-2023 End: 06-08-2023 Patient encounter procedure Rahul Zheng MD Work Phone: [facility] Comment on above: Procreative manageme nt counseling (Primary Dx); BMI 34.0-34.9,adult Start: 03-16-2023 End: 03-16-2023 ambulatory TIARRA KATZ Facility:[facility] Start: 03-16-2023 End: 03-16-2023 Patient encounter procedure TIARRA KATZ [facility] Start: 03-19-2022 End: 03-19-[address] ANDREA PRIETO Facility: Start: 03-11-2021 End: 03-11-2021 Emergency department patient visit Filomena Zamora [facility] Start: 12-09-2016 End: 12-11-2016 Evaluation and management of inpatient KEITH [place] Facility:[facility] Start: 12-03-2016 Ambulatory KEITH [place] Facility: [facility] Start: 11-13-2016 End: 11-13-2016 Ambulatory CHARLIE JOEL Facility:[facility] Start: 11-06-2016 Ambulatory CHARLIE JOEL Faci lity:[facility] Procedures Date Procedure Procedure Detail Performing Clinician Start: 03-14-2024 ALL CBC WITH AUTO DIFF Andrea Prieto DO Work Phone: Start: 03-11-2024 Urnls dip stick/tabl et rgnt non-auto w/o micrscp Andrea Prieto DO Work Phone: Start: 02-09-2024 Us preg uterus after 1st trimest 03/30 gestation Andressa Abraham LOCAL SUPERINTENDENT.REHABILITATION WORKER Work Phone: Start: 07-28-2023 Antibody screen ANDRESSA ABRAHAM Comment on above: Order Comment: Speci men Type: BLOOD SPECIMEN Ordering Facility: [facility] Address: [address] [place] [address] Performed By: #### 7 [id number], [id number], [id number], [id number] #### [facility] CLIA [id number] [address] [place] [address] [place] Start: 03-19-2022 Microscopic observat ion [Identifier] in Cervix by Cyto stain Karen Bolanos MD Work Phone: section TIARRA CALVO Removal of intrauter ine device TIARRA KATZ Plan of Treatment Date Care Activity Detail Author Start: 03-19-2025 Screening for malignant neoplasm of cervix [facility] Start: 07-05-2024 End: 07-05-2024 Patient encounter procedure 07/05/2024 11:00 AM EDT Office Visit [facility] [address] [place] [id number] Andrea Prieto, DO [address] [place] [address] [facility] Start: 04-19-2024 End: 04-19-2024 Patient encounter procedure 04/19/2024 10:30 AM EST Routine [facility] [address] [facility] [address] [id number] Andrea Prieto, DO [address] [place] [address] Arrived [facility] Comment on above: Arrived Start: 04-12-2024 End: 04-12-2024 Patient encounter procedure 04/12/2024 11:10 AM EST Routine [facility] [address] [place] [id number] Andrea Prieto, DO [address] [place] [address] [facility] Start: 03-11-2024 End: 03-11-2025 ABO/Rh ABO/Rh Lab Routine Missed menses , unspecified gestational age Expected: 03/11/2024 (Approximate), Expires: 03/11/2025 [facility] Comment on above: Expected: 03/11/2024 (Approximate), Expires: 03/11/2025 Start: 03-11-2024 End: 03-11-2025 Blood type and Indirect antibody screen panel - Blood Type and screen Lab Routine Missed menses , unspecified gestational age Expected: 03/11/2024 (Approximate), Expires: 03/11/2025 [facility] Work Phone: Comment on above: Expected: 03/11/2024 (Approximate), Expires: 03/11/2025 Start: 03-11-2024 End: 03-11-2025 Drugs of abuse panel - Urine by Screen method Rapid drug screen, urine Lab Routine , unspecified gestational age Encounter for supervision of normal first in first trimester Expected: 03/11/2024 (Approximate), Expires: 03/11/2025 [facility] Comment on above: Expected: 03/11/2024 (Approximate), Expires: 03/11/2025 Start: 02-09-2024 End: 02-09-2024 Nursing evaluation of patient and report 02/09/2024 10:30 AM EST Nurse Visit [facility] [address] [place] [address] Rej, Nurse Sarmad [facility] [address] [place] [address] ob scan [facility] Comment on above: ob scan Start: 01-25-2024 End: 01-25-2024 Patient encounter procedure 01/25/2024 9:40 AM EDT Office Visit [facility] [address] [place] [address] Andrea Prieto, DO [address] [facility] [place] [address] [facility] Start: 01-20-2024 End: 01-19-2025 OBSTETRIC ULTRASOUND WHI OBSTETRIC ULTRASOUND WHI Anc Imaging Routine resulting from assisted reproductive technology in first trimester Expected: 01/20/2024, Expires: 01/19/2025 [facility] Work Phone: Comment on above: Expected: 01/20/2024 , Expires: 01/19/2025 Start: 12-28-2023 End: 12-28-2023 Patient encounter procedure 12/28/2023 8:20 AM EDT Office Visit [facility] [address] [place] [id number] Karen Bolanos MD [address] [place] [address] Arrived [facility] Comment on above: Arrived Start: 12-05-2023 End: 12-05-2023 Patient encounter procedure [facility] Comment on above: donor thaw IUI-D Start: 11-29-2023 Covid-19 Vaccine () Covid-19 Vaccine () [facility] Start: 11-29-2023 Covid-19 Vaccine () Covid-19 Vaccine () [facility] Start: 11-29-2023 Influenza vaccination Influenza Vacc ine (#1) [facility] Start: 10-12-2023 End: 01-11-2024 Progesterone [Mass/volume] in Serum or Plasma PROGESTERONE Lab Routine Female infertility Expected: 10/12/2023, Expires: 01/11/2024 [facility] Work Phone: Comment on above: Expected: 10/12/2023 , Expires: 01/11/2024 Start: 06-15-2023 End: 09-14-2023 CARRIER SCREEN, EXPANDED CARRIER SCREEN, EXPANDED Lab Routine Encounter for other genetic testing of female for procreative management Expected: 06/15/2023, Expires: 09/14/2023 [facility] Work Phone: Comment on above: Expected: 06/15/2023 , Expires: 09/14/2023 Start: 03-30-2023 Behavioral Health Screening Behavioral Health Screening [facility] Start: 03-30-2023 Depression Assessment Depression Ass essment [facility] Start: 11-28-2022 Covid-19 Vaccine () Covid-19 Vaccine () [facility] Start: 11-28-2022 Influenza vaccination Influenza Vacc ine (#1) [facility] Start: 08-01-2021 Screening for malignant neoplasm of cervix [facility] Start: 03-18-2018 Screening for malignant neoplasm of cervix Pap Testing [facility] Start: 03-18-2016 Screening for malignant neoplasm of cervix Cervical Cancer Screening [facility] Start: 08-01-2009 Anxiety Screening Anxiety Screening [facility] Start: 08-01-2009 Depression Screening Depression Scre ening [facility] Start: 08-01-2009 Hepatitis C screening Hepatitis C Sc reening [facility] Start: 08-01-2009 HIV screening HIV Screening [facility] Start: 01-05-2004 Hepatitis B Vaccine (2 of 3 - 3-dose series) Hepatitis B Vaccine (2 of 3 - 3-dose series) [facility] Start: 08-01-2002 Urine microalbumin profile DTaP,Tdap,Td Vaccine (5 - Tdap) [facility] Bacteria identified in Urine by Culture Urine culture Microbiology Routine Missed menses Ordered: 03/11/2024 [facility] Comment on above: Ordered: 03/11/2024 CBC W Auto Differential panel - Blood CBC and differential Lab Routine Missed menses , unspecified gestational age Ordered: 03/11/2024 [facility] Comment on above: Ordered: 03/11/2024 End: 01-17-2025 Choriogonadotropin.bet a subunit [Units/volume] in Serum or Plasma HCG QUANTITATIVE Lab Routine Encounter for test, result positive 2x per week for 2 Occurrences starting 01/18/2024 until 01/17/2025 [facility] Work Phone: Comment on above: 2x per week for 2 Oc currences starting 01/18/2024 until 01/17/2025 Hemoglobin A1c/Hemoglobin.total in Blood Hemoglobin A1c Lab Routine Missed menses , unspecified gestational age Ordered: 03/11/2024 [facility] Comment on above: Ordered: 03/11/2024 Hepatitis B virus surface Ag [Presence] in Serum or Plasma by Immunoassay Hepatitis B surface antigen Lab Routine Missed menses , unspecified gestational age Ordered: 03/11/2024 [facility] Comment on above: Ordered: 03/11/2024 Hepatitis C virus Ab [Presence] in Serum or Plasma by Immunoassay Hepatitis C antibody Lab Routine Missed menses , unspecified gestational age Ordered: 03/11/2024 [facility] Comment on above: Ordered: 03/11/2024 HIV-1/HIV-2 antigen/antibody combination immunoassay HIV-1 and HIV-2 antibodies Lab Routine Missed menses , unspecified gestational age Ordered: 03/11/2024 [facility] Comment on above: Ordered: 03/11/2024 Reagin Ab [Presence] in Serum by RPR RPR Lab Routine Missed menses , unspecified gestational age Ordered: 03/11/2024 [facility] Comment on above: Ordered: 03/11/2024 Rubella antibody, IgG Rubella an tibody, IgG Lab Routine Missed menses , unspecified gestational age Ordered: 03/11/2024 [facility] Comment on above: Ordered: 03/11/2024 Immunizations Immunization Date Immunization Notes Care Provider Marcos riley 09-13-2023 measles, mumps and rubella virus vaccine Karen Bolanos MD Work Phone: [facility] 06-15-2023 influenza, injectable, quadrivalent, contains preservative Karen Bolanos MD Work Phone: [facility] 06-15-2023 influenza virus vaccine, unspecified formulation Andressa Abraham WON Work Phone: [facility] 08-17-2020 SARS-CoV-2 (COVID-19 ) mRNA-1273 vaccine [facility] 07-20-2020 SARS-CoV-2 (COVID-19 ) mRNA-1273 vaccine [facility] 12-10-2016 influenza virus vaccine, unspecified formulation [facility] 12-10-2016 influenza, injectable, quadrivalent, preservative free Karen Bolanos MD Work Phone: [facility] 02-16-2009 novel [id number], preservative-free, injectable Karen Bolanos MD Work Phone: [facility] 12-08-2003 hepatitis B vaccine, pediatric or pediatric/adolescent dosage TIARRA KATZ [facility] 12-08-2003 measles, mumps and rubella virus vaccine TIARRA KATZ [facility] 12-08-2003 tetanus toxoid, adsorbed Karen Bolanos MD Work Phone: [facility] 10-27-1996 measles, mumps and rubella virus vaccine TIARRA KATZ [facility] 02-08-1993 diphtheria, tetanus toxoids and acellular pertussis vaccine Karen Bolanos MD Work Phone: [facility] 02-08-1993 diphtheria, tetanus toxoids and acellular pertussis vaccine, unspecified formulation Karen Bolanos MD Work Phone: [facility] 02-08-1993 DTaP, unspecified formulation [facility] 02-08-1993 haemophilus influenzae type b vaccine, conjugate unspecified formulation Karen Bolanos MD Work Phone: [facility] 02-08-1993 haemophilus influenzae type b vaccine, HbOC conjugate Karen Bolanos MD Work Phone: [facility] 02-08-1993 Hib, unspecified formulation [facility] 02-08-1993 poliovirus vaccine, unspecified formulation Karen Bolanos MD Work Phone: [facility] 02-07-1992 diphtheria, tetanus toxoids and acellular pertussis vaccine Karen Bolanos MD Work Phone: [facility] 02-07-1992 diphtheria, tetanus toxoids and acellular pertussis vaccine, unspecified formulation Karen Bolanos MD Work Phone: [facility] 02-07-1992 DTaP, unspecified formulation [facility] 02-07-1992 haemophilus influenzae type b vaccine, conjugate unspecified formulation Karen Bolanos MD Work Phone: [facility] 02-07-1992 haemophilus influenzae type b vaccine, HbOC conjugate Karen Bolanos MD Work Phone: [facility] 02-07-1992 Hib, unspecified formulation [facility] 1991 diphtheria, tetanus toxoids and acellular pertussis vaccine Karen Bolanos MD Work Phone: [facility] 1991 diphtheria, tetanus toxoids and acellular pertussis vaccine, unspecified formulation Karen Bolanos MD Work Phone: [facility] 1991 DTaP, unspecified formulation TIARRA KATZ [facility] 1991 haemophilus influenzae type b vaccine, conjugate unspecified formulation Karen Bolanos MD Work Phone: [facility] 1991 haemophilus influenzae type b vaccine, HbOC conjugate Karen Bolanos MD Work Phone: [facility] 1991 Hib, unspecified formulation TIARRA KATZ [facility] 1991 poliovirus vaccine, unspecified formulation Karen Bolanos MD Work Phone: [facility] 1991 diphtheria, tetanus toxoids and acellular pertussis vaccine Karen Bolanos MD Work Phone: [facility] 1991 diphtheria, tetanus toxoids and acellular pertussis vaccine, unspecified formulation Karen Bolanos MD Work Phone: [facility] 1991 DTaP, unspecified formulation TIARRA KATZ [facility] 1991 haemophilus influenzae type b vaccine, conjugate unspecified formulation Karen Bolanos MD Work Phone: [facility] 1991 haemophilus influenzae type b vaccine, HbOC conjugate Karen Bolanos MD Work Phone: [facility] 1991 Hib, unspecified formulation TIARRA KATZ [facility] 1991 poliovirus vaccine, unspecified formulation Karen Bolanos MD Work Phone: [facility] NEGATED: Highlighted row has not occurred!03-16-2023 influenza virus vaccine, unspecified formulation TIARRA KATZ [facility] Payers Date Payer Category Payer [facility] BC[employer] [id number] 2022 Unknown 2022 Unknown [id number] 2022 Unknown [id number] 1991 Unknown [id number] 1991 Unknown [id number]. 2. 1991 Unknown [id number]. 2. 1991 Unknown [id number]. 2. 1991 Unknown [id number]. 2.1258 1991 Unknown [id number]. 2.1258 1991 Unknown [id number]. 2.1258 1991 Unknown [id number]. 2.1258 1959 Unknown [id number] Unknown [id number] Social History Date Type Detail Facility [facility] Tobacco smoking consumption unknown [facility] Start: 11-11-2022 End: 03-16-2023 Tobacco smoking status Never smoked tobacco (finding) [facility] Tobacco smoking status Never [facility] Start: 06-08-2023 End: 12-28-2023 Sex Assigned At Female [facility] Start: 04-12-2012 End: 11-11-2022 Tobacco use and exposure Smokeless tobacco non-user [facility] Start: 06-08-2023 End: 03-11-2024 Alcohol intake Current drinker of alcohol (finding) [facility] Start: 06-08-2023 End: 12-28-2023 History of Social function [facility] Start: 04-12-2012 Alcohol Comment social [facility] Start: 1991 Sex Assigned At Not on file [facility] Start: 1991 [facility] Start: 06-11-2022 Gender identity Identifies as female gender (finding) [facility] Start: 01-12-2023 Sexual orientation Homosexual (findi ng) [facility] Start: 11-10-2022 Alcohol Comment 1-2 drinks les s than monthly in the past year, Caffeine intake: 1-2 cups per day [facility] Start: 01-02-2024 [facility] Goals Date Patient Goal Desired Activity /State Personal health goal Functional Status Date Assessment Result Facility 02-28-2024 Functional Status N/A [facility] 03-16-2023 Functional Status N/A [facility] Clinical Notes 03-16-2023 to 03-11-2024 Jacqui Ferguson LPN - 03/11/2024 10:30 AM Vidhya Scott APRN.REHABILITATION WORKER - 02/09/2024 12:27 PM Parth Garcia MD - 02/09/2024 11:28 AM Andressa Varner APRN.REHABILITATION WORKER - 01/20/2024 9:03 AM EDT Note Date & Type Note Facility 03-11-2024 History of Presen t illness Narrative Reason for Appointment: Patient ID: Nelli Carpenter is a 33 y.o. female who presents for Amenorrhea Patient presents today for a Nurse OB Intake appointment. Patient is 11w6d with a Estimated Date of Delivery: 09/24/24 OB History Para Term AB Living 5 2 2 1 2 SAB IAB Ectopic Multiple Live Births 1 2 # Outcome Date GA Lbr Charlie/2nd Weight Sex Type Anes PTL Lv 5 Current 4 Term 12/09/16 37w0d 7 lb 12 oz F CS-Unspec KOMAL Complications: Placenta Previa 3 SAB 10/2015 8w0d Comments: D and C 2 Term 07/15/14 7 lb 4 oz F Vag-Spont KOMAL 1 Obstetric Comments Last pap smear 10/19/2019 neg Current Medications: currently has no medications in their medication list. Medical History: Active Ambulatory Problems Diagnosis Date Noted Mild episode of recurrent major depressive disorder (HCC) (CMS/HCC) 12/28/2023 Restless leg 12/28/2023 Resolved Ambulatory Problems Diagnosis Date Noted No Resolved Ambulatory Problems Past Medical History: Diagnosis Date Asthma (CMS/HCC) BMI 28.0-28.9,adult Depression screening GERD (gastroesophageal reflux disease) History of chlamydia infection HPV in female Well woman exam Family History Problem Relation Name Age of Onset COPD Mother Diabetes Maternal Grandmother Social History Tobacco Use Smoking status: Never Smokeless tobacco: Never Substance Use Topics Alcohol use: Yes Comment: 1-2 drinks less than monthly in the past year, Caffeine intake: 1-2 cups per day Drug use: Never Past Surgical History: Procedure Laterality Date SECTION, LOW TRANSVERSE 12/09/2016 DILATION AND CURETTAGE 11/2015 VAGINAL DELIVERY 07/15/2014 WISDOM TOOTH EXTRACTION No Known Allergies Vitals: Estimated body mass index is 37.02 kg/m as calculated from the following: Height as of 12/28/23: 5' 3 . Weight as of 12/28/23: 209 lb. BP: Patient's last menstrual period was 12/19/2023. Assessment/Plan Diagnoses and all orders for this visit: Missed menses - Type and screen; Future - ABO/Rh; Future - CBC and differential - Hemoglobin A1c - RPR - Rubella antibody, IgG - Hepatitis B surface antigen - Hepatitis C antibody - HIV-1 and HIV-2 antibodies - Urine culture - POCT , urine manually resulted - POCT urinalysis dipstick manually resulted , unspecified gestational age - Type and screen; Future - ABO/Rh; Future - CBC and differential - Hemoglobin A1c - RPR - Rubella antibody, IgG - Hepatitis B surface antigen - Hepatitis C antibody - HIV-1 and HIV-2 antibodies - Rapid drug screen, urine; Future Encounter for supervision of normal first in first trimester - Rapid drug screen, urine; Future Nurse Note: OB Intake: Patient presents today for first OB visit. Patients history has been reviewed in great detail including any potential risks. Patient signed consent forms and patient desires testing in both trimesters. Patient currently has no complaints and has been advised to drink 6-8 glasses of water a day, eat no raw or undercooked meat, and stay away from [facility]. Patient has also been advised to not change litter boxes and eat 6 small meals a day. Patient has been consulted regarding the do's and don'ts of . Patient was given labs and all questions and concerns were answered. Follow Up: Patient is to return in 4 weeks for routine OB appointment. Follow Up: Patient is to have labs drawn at directed and return to office for initial OB appointment with provider. Patient may call office as needed with any concerns or questions. Nurse Visit Completed by: Jacqui Ferguson LPN documented in this encounter [facility] 02-28-2024 Hospital Discharg e instructions Patient Education 02/28/2024 09:57:54 BMI for Adults BMI for Adults Body mass index (BMI) is a number found using a person's weight and height. BMI can help tell how much of a person's weight is made up of fat. BMI does not measure body fat directly. It is used instead of tests that directly measure body fat, which can be difficult and expensive. What are BMI measurements used for? BMI is useful to: Find out if your weight puts you at higher risk for medical problems. Help recommend changes, such as in diet and exercise. This can help you reach a healthy weight. BMI screening can be done again to see if these changes are working. How is BMI calculated? Your height and weight are measured. The BMI is found from those numbers. This can be done with U.S. or metric measurements. Note that charts and online BMI calculators are available to help you find your BMI quickly and easily without doing these calculations. To calculate your BMI in U.S. measurements: 1.Measure your weight in pounds (lb). 2.Multiply the number of pounds by 703. So, for an adult who weighs 150 lb, multiply that number by 703: 150 x 703, which equals 105,450. 3.Measure your height in inches. Then multiply that number by itself to get a measurement called inches squared. So, for an adult who is 70 inches tall, the inches squared measurement is 70 inches x 70 inches, which equals 4,900 inches squared. 4.Divide the total from step 2 (number of lb x 703) by the total from step 3 (inches squared): 105,450 4,900 = 21.5. This is your BMI. To calculate your BMI in metric measurements: 1.Measure your weight in kilograms (kg). For this example, the weight is 70 kg. 2.Measure your height in meters (m). Then multiply that number by itself to get a measurement called meters squared. So, for an adult who is 1.75 m tall, the meters squared measurement is 1.75 m x 1.75 m, which equals 3.1 meters squared. 3.Divide the number of kilograms (your weight) by the meters squared number. In this example: 70 3.1 = 22.6. This is your BMI. What do the results mean? BMI charts are used to see if you are underweight, normal weight, overweight, or obese. The following guidelines will be used: Underweight: BMI less than 18.5. Normal weight: BMI between 18.5 and 24.9. Overweight: BMI between 25 and 29.9. Obese: BMI of 30 or above. BMI is a tool and cannot diagnose a condition. Talk with your health care provider about what your BMI means for you. Keep these notes in mind: Weight includes fat and muscle. Someone with a muscular build, such as an athlete, may have a BMI that is higher than 24.9. In cases like these, BMI is not a correct measure of body fat. If you have a BMI of 25 or higher, your provider may need to do more testing to find out if excess body fat is the cause. BMI is measured the same way for males and females. Females usually have more body fat than males of the same height and weight. Where to find more information For more information about BMI, including tools to quickly find your BMI, go to: Centers for Disease Control and Prevention: cdc.gov [place] [employer]: heart.org National Heart, Lung, and Blood [place]: nhlbi.nih.gov This information is not intended to replace advice given to you by your health care provider. Make sure you discuss any questions you have with your health care provider. Document Revised: 12/04/2022 Document Reviewed: 11/27/2022 [employer] Patient Education 2023 51edu. 02/28/2024 09:57:52 Otitis Media, Adult, Ejhx-yw-Tvxo Otitis Media, Adult Otitis media is a condition in which the middle ear is red and swollen (inflamed) and full of fluid. The middle ear is the part of the ear that contains bones for hearing as well as air that helps send sounds to the brain. The condition usually goes away on its own. What are the causes? This condition is caused by a blockage in the eustachian tube. This tube connects the middle ear to the back of the nose. It normally allows air into the middle ear. The blockage is caused by fluid or swelling. Problems that can cause blockage include: A cold or infection that affects the nose, mouth, or throat. Allergies. An irritant, such as tobacco smoke. Adenoids that have become large. The adenoids are soft tissue located in the back of the throat, behind the nose and the roof of the mouth. Growth or swelling in the upper part of the throat, just behind the nose (nasopharynx). Damage to the ear caused by a change in pressure. This is called barotrauma. What increases the risk? You are more likely to develop this condition if you: Smoke or are exposed to tobacco smoke. Have an opening in the roof of your mouth (cleft palate). Have acid reflux. Have problems in your body's defense system (immune system). What are the signs or symptoms? Symptoms of this condition include: Ear pain. Fever. Problems with hearing. Being tired. Fluid leaking from the ear. Ringing in the ear. How is this treated? This condition can go away on its own within 3 5 days. But if the condition is caused by germs (bacteria) and does not go away on its own, or if it keeps coming back, your doctor may: Give you antibiotic medicines. Give you medicines for pain. Follow these instructions at home: Take mazx-vkr-fhnmsuq and prescription medicines only as told by your doctor. If you were prescribed an antibiotic medicine, take it as told by your doctor. Do not stop taking it even if you start to feel better. Keep all follow-up visits. Contact a doctor if: You have bleeding from your nose. There is a lump on your neck. You are not feeling better in 5 days. You feel worse instead of better. Get help right away if: You have pain that is not helped with medicine. You have swelling, redness, or pain around your ear. You get a stiff neck. You cannot move part of your face (paralysis). You notice that the bone behind your ear hurts when you touch it. You get a very bad headache. Summary Otitis media means that the middle ear is red, swollen, and full of fluid. This condition usually goes away on its own. If the problem does not go away, treatment may be needed. You may be given medicines to treat the infection or to treat your pain. If you were prescribed an antibiotic medicine, take it as told by your doctor. Do not stop taking it even if you start to feel better. Keep all follow-up visits. This information is not intended to replace advice given to you by your health care provider. Make sure you discuss any questions you have with your health care provider. Document Revised: 06/24/2021 Document Reviewed: 06/24/2021 [employer] Patient Education 2023 51edu. Follow Up Care 02/28/2024 08:48:51 With:Karen Bolanos MD Address: [address] [place] [address]- When: Unknown [facility] 02-28-2024 Note Patient Education ENT Otitis Media, Adult Otitis media is a condition in which the middle ear is red and swollen (inflamed) and full of fluid. The middle ear is the part of the ear that contains bones for hearing as well as air that helps send sounds to the brain. The condition usually goes away on its own. What are the causes? This condition is caused by a blockage in the eustachian tube. This tube connects the middle ear to the back of the nose. It normally allows air into the middle ear. The blockage is caused by fluid or swelling. Problems that can cause blockage include: ??? A cold or infection that affects the nose, mouth, or throat. ??? Allergies. ??? An irritant, such as tobacco smoke. ??? Adenoids that have become large. The adenoids are soft tissue located in the back of the throat, behind the nose and the roof of the mouth. ??? Growth or swelling in the upper part of the throat, just behind the nose (nasopharynx). ??? Damage to the ear caused by a change in pressure. This is called barotrauma. What increases the risk? You are more likely to develop this condition if you: ??? Smoke or are exposed to tobacco smoke. ??? Have an opening in the roof of your mouth (cleft palate). ??? Have acid reflux. ??? Have problems in your body's defense system (immune system). What are the signs or symptoms? Symptoms of this condition include: ??? Ear pain. ??? Fever. ??? Problems with hearing. ??? Being tired. ??? Fluid leaking from the ear. ??? Ringing in the ear. How is this treated? This condition can go away on its own within 3?5 days. But if the condition is caused by germs (bacteria) and does not go away on its own, or if it keeps coming back, your doctor may: ??? Give you antibiotic medicines. ??? Give you medicines for pain. Follow these instructions at home: ??? Take ikgw-fel-cftpabn and prescription medicines only as told by your doctor. ??? If you were prescribed an antibiotic medicine, take it as told by your doctor. Do not stop taking it even if you start to feel better. ??? Keep all follow-up visits. Contact a doctor if: ??? You have bleeding from your nose. ??? There is a lump on your neck. ??? You are not feeling better in 5 days. ??? You feel worse instead of better. Get help right away if: ??? You have pain that is not helped with medicine. ??? You have swelling, redness, or pain around your ear. ??? You get a stiff neck. ??? You cannot move part of your face (paralysis). ??? You notice that the bone behind your ear hurts when you touch it. ??? You get a very bad headache. Summary ??? Otitis media means that the middle ear is red, swollen, and full of fluid. ??? This condition usually goes away on its own. ??? If the problem does not go away, treatment may be needed. You may be given medicines to treat the infection or to treat your pain. ??? If you were prescribed an antibiotic medicine, take it as told by your doctor. Do not stop taking it even if you start to feel better. ??? Keep all follow-up visits. This information is not intended to replace advice given to you by your health care provider. Make sure you discuss any questions you have with your health care provider. Document Revised: 06/24/2021 Document Reviewed: 06/24/2021 [employer] Patient Education ? 2023 51edu. Nutrition BMI for Adults Body mass index (BMI) is a number found using a person's weight and height. BMI can help tell how much of a person's weight is made up of fat. BMI does not measure body fat directly. It is used instead of tests that directly measure body fat, which can be difficult and expensive. What are BMI measurements used for? BMI is useful to: ??? Find out if your weight puts you at higher risk for medical problems. ??? Help recommend changes, such as in diet and exercise. This can help you reach a healthy weight. BMI screening can be done again to see if these changes are working. How is BMI calculated? Your height and weight are measured. The BMI is found from those numbers. This can be done with U.S. or metric measurements. Note that charts and online BMI calculators are available to help you find your BMI quickly and easily without doing these calculations. To calculate your BMI in U.S. measurements: 1. Measure your weight in pounds (lb). 2. Multiply the number of pounds by 703. ??? So, for an adult who weighs 150 lb, multiply that number by 703: 150 x 703, which equals 105,450. 3. Measure your height in inches. Then multiply that number by itself to get a measurement called inches squared. ??? So, for an adult who is 70 inches tall, the inches squared measurement is 70 inches x 70 inches, which equals 4,900 inches squared. 4. Divide the total from step 2 (number of lb x 703) by the total from step 3 (inches squared): 105,450 ? 4,900 = 21.5. This is your BMI. To calculate your BMI in metric measurements: (Inserted Image. Un (more content not included)... [facility] 02-09-2024 Note HNO ID: [id number] Author: VIDHYA PITT APRN.REHABILITATION WORKER Service: ? Author Type: Nurse Practitioner Type: Progress Notes Filed: 02/09/2024 12:28 Note Text: Nelli Carpenter here today for a scan. This is her 1st scan. History of ectopic: No, History of SAB: Yes History of pelvic/abdominal surgeries: Yes, DANDC LMP 12/18, natural cycle, LH surge: 12/31, IUI-D done: 01/01 Latest Ref Rng 07/28/2023 01/19/2024 ABO O Rh(D) Positive Antibody Screen Negative (C) Type+Scr Expiration 07/31/2023 23:59 Historical Ab Scr Status NEGATIVE Varicella Zoster IgG, Qual Positive Positive Rubella IgG, Qual Positive Negative ! hCG Quantitative, Blood <5.0 mIU/mL 792.1 (H) Dating LMP on: 12/19/2023 GA by LMP 7 w + 3 d PAULA by LMP: 09/24/2024 Ultrasound examination on: 02/09/2024 GA by U/S based upon: CRL GA by U/S 7 w + 3 d PAULA by U/S: 09/24/2024 Assigned: based on the LMP, selected on 02/09/2024 Assigned GA 7 w + 3 d Assigned PAULA: 09/24/2024 FHR: 143 Plan Move on to OB Vidhya Pitt APRN.REHABILITATION WORKER February 09, 2024 12:27 PM [facility] 02-09-2024 History of Presen t illness Narrative Nelli Carpenter here today for a scan. This is her 1st scan. History of ectopic: No, History of SAB: Yes History of pelvic/abdominal surgeries: Yes, D&C LMP 12/18, natural cycle, LH surge: 12/31, IUI-D done: 01/01 Latest Ref Rng 07/28/2023 01/19/2024 ABO O Rh(D) Positive Antibody Screen Negative (C) Type+Scr Expiration 07/31/2023 23:59 Historical Ab Scr Status NEGATIVE Varicella Zoster IgG, Qual Positive Positive Rubella IgG, Qual Positive Negative ! hCG Quantitative, Blood <5.0 mIU/mL 792.1 (H) Dating LMP on: 12/19/2023 GA by LMP 7 w + 3 d PAULA by LMP: 09/24/2024 Ultrasound examination on: 02/09/2024 GA by U/S based upon: CRL GA by U/S 7 w + 3 d PAULA by U/S: 09/24/2024 Assigned: based on the LMP, selected on 02/09/2024 Assigned GA 7 w + 3 d Assigned PAULA: 09/24/2024 FHR: 143 Plan Move on to OB Vidhya Pitt APRN.CNP February 09, 2024 12:27 PM Scan Visit Patient here for scan. See imaging documentation. Parth Clark MD documented in this encounter [facility] 02-09-2024 Note HNO ID: [id number] Author: PARTH CLARK MD Service: ? Author Type: Physician Type: Progress Notes Filed: 02/09/2024 11:28 Note Text: Scan Visit Patient here for scan. See imaging documentation. Parth Clark MD [facility] 01-20-2024 Note HNO ID: [id number] Author: ANDRESSA ABRAHAM APRN.CNP Service: ? Author Type: Nurse Practitioner Type: Progress Notes Filed: 01/20/2024 09:34 Note Text: [facility] New SERVICE DATE: 01/20/2024 SERVICE TIME: 9:03 AM NAME: Nelli Carpenter VIRTUAL VISIT PROGRESS NOTE This is a virtual visit. It required patient-provider interaction for the medical decision making as documented below. Patient name and birthday verified: Yes Location of patient: home Persons Present: patient I have communicated my name and active licensure. The patient's identity and physical location were verified at the time of this visit. Either the patient or their legal small business sales representative has been informed of the risks and benefits of -- and alternatives to -- treatment through a remote evaluation and consents to proceed with the evaluation remotely. 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 hCG Quantitative, Blood <5.0 mIU/mL 792.1 (H) Dating: Currently 4w4d based off of IUI date. Symptoms: breast tenderness tired urinary frequency Pain: denies Bleeding: denies Nausea/Vomiting: denies Current Medications: reviewed Taking PNV: yes Reviewed history, intake and most recent plan from primary [facility] provider. Assessment: Plan: further labwork needed: 01/20 scan scheduled: 02/05 medications to discontinue: none Schedule with OB: 02/14 or 02/21 Andressa Abraham APRN.REHABILITATION WORKER January 20, 2024 9:03 AM Please schedule the patient for the following- Location: [place] Provider: nurse Visit type: scan Reason for visit/appointment notes: scan Date: 02/08 Time (requested): 1030 If slot is full, please schedule the closest open slot. Call to patient needed: no I spent a total of 30 minutes on the date of the service which included preparing to see the patient, rfhq-mh-wieg patient care, completing clinical documentation, obtaining and/or reviewing separately obtained history, counseling and educating the patient/family/caregiver, ordering medications, tests, or procedures, independently interpreting results (not separately reported), communicating results to the patient/family/caregiver, and care coordination (not separately reported). To patients reading this note: Please be advised the primary purpose of this note is for me to communicate with myself and other members of your medical team. Standard sentence structure is not always used. Medical terminology and medical abbreviations may be used. There may be grammatical and typographical errors missed in proofreading. [facility] 01-20-2024 History of Presen t illness Narrative Images from the original note were not included. [facility] New SERVICE DATE: 01/20/2024 SERVICE TIME: 9:03 AM NAME: Nelli Carpenter VIRTUAL VISIT PROGRESS NOTE This is a virtual visit. It required patient-provider interaction for the medical decision making as documented below. Patient name and birthday verified: Yes Location of patient: home Persons Present: patient I have communicated my name and active licensure. The patient's identity and physical location were verified at the time of this visit. Either the patient or their legal small business sales representative has been informed of the risks and benefits of -- and alternatives to -- treatment through a remote evaluation and consents to proceed with the evaluation remotely. 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 hCG Quantitative, Blood <5.0 mIU/mL 792.1 (H) Dating: Currently 4w4d based off of IUI date. Symptoms: breast tenderness tired urinary frequency Pain: denies Bleeding: denies Nausea/Vomiting: denies Current Medications: reviewed Taking PNV: yes Reviewed history, intake and most recent plan from primary [facility] provider. Assessment: Plan: further labwork needed: 01/20 scan scheduled: 02/05 medications to discontinue: none Schedule with OB: 02/14 or 02/21 Andressa Abraham APRN.CNP January 20, 2024 9:03 AM Please schedule the patient for the following- Location: [facility] Provider: nurse Visit type: scan Reason for visit/appointment notes: scan Date: 02/08 Time (requested): 1030 If slot is full, please schedule the closest open slot. Call to patient needed: no I spent a total of 30 minutes on the date of the service which included preparing to see the patient, [id number] patient care, completing clinical documentation, obtaining and/or reviewing separately obtained history, counseling and educating the patient/family/caregiver, ordering medications, tests, or procedures, independently interpreting results (not separately reported), communicating results to the patient/family/caregiver, and care coordination (not separately reported). To patients reading this note: Please be advised the primary purpose of this note is for me to communicate with myself and other members of your medical team. Standard sentence structure is not always used. Medical terminology and medical abbreviations may be used. There may be grammatical and typographical errors missed in proofreading. documented in this encounter [facility] 01-18-2024 Telephone encounter Note Patient calls with positive urine test. History of ectopic: No History of SAB: Yes History of pelvic/abdominal surgeries: Yes, D&C LMP 12/18, fertility medications used this cycle natural cycle , date of LH surge: 12/31, IUI done: 01/01 Blood type: O, POS, rubella vaccinated , varicella Immune Current medications: Current Outpatient Medications on File Prior to Visit Medication Sig vit/iron fum/folic ac ( 1 + 1 ORAL) Take by mouth. mv-min/iron/folic/calcium/vitK (WOMEN'S MULTIVITAMIN ORAL) Take by mouth. BIOTIN ORAL Take by mouth once daily. (Patient not taking: Reported on 06/08/2023) levonorgestrel (MIRENA) 20 mcg/24 hr IUD 1 Each by INTRAUTERINE route one time only. (Patient not taking: Reported on 06/08/2023) No current facility-administered medications on file prior to visit. Advised normal symptoms of and s/s of need for follow up. Labs ordered: hCG x 2 KENNEDY Yoo PA-C January 18, 2024 4:02 PM [facility] 01-18-2024 Miscellaneous Notes Patient calls with positive urine test. History of ectopic: No History of SAB: Yes History of pelvic/abdominal surgeries: Yes, D&C LMP 12/18, fertility medications used this cycle natural cycle , date of LH surge: 12/31, IUI done: 01/01 Blood type: O, POS, rubella vaccinated , varicella Immune Current medications: Current Outpatient Medications on File Prior to Visit Medication Sig vit/iron fum/folic ac ( 1 + 1 ORAL) Take by mouth. mv-min/iron/folic/calcium/vitK (WOMEN'S MULTIVITAMIN ORAL) Take by mouth. BIOTIN ORAL Take by mouth once daily. (Patient not taking: Reported on 06/08/2023) levonorgestrel (MIRENA) 20 mcg/24 hr IUD 1 Each by INTRAUTERINE route one time only. (Patient not taking: Reported on 06/08/2023) No current facility-administered medications on file prior to visit. Advised normal symptoms of and s/s of need for follow up. Labs ordered: hCG x 2 KENNEDY Yoo PA-C January 18, 2024 4:02 PM Please call patient back regarding next steps. documented in this encounter [facility] 01-18-2024 Telephone encounter Note Please call patient back regarding next steps. [facility] Work Phone: 01-02-2024 Note HNO ID: [id number] Author: FLAVIA ELIZONDO, ? Service: ? Author Type: Fryer Operator Type: Progress Notes Filed: 01/02/2024 11:47 Note Text: Thaw for IUI Flavia Guaman Jameseleazar [facility] 01-02-2024 History of Presen t illness Narrative Thaw for IUI Flavia Ramirezeleazar documented in this encounter [facility] 01-02-2024 Note HNO ID: [id number] Author: FLAVIA ELIZONDO, ? Service: ? Author Type: Fryer Operator Type: Progress Notes Filed: 01/02/2024 11:46 Note Text: IUI Xytex #: [id number] Washed frozen specimen Post: 122 m/ml, 63% Insem#: 34.7 million [facility] 01-02-2024 History of Presen t illness Narrative IUI Xytex #: [id number] Washed frozen specimen Post: 122 m/ml, 63% Insem#: 34.7 million IUI specimen released to provider Flavia Elizondo January 02, 2024 11:23 AM documented in this encounter [facility] 01-02-2024 Note HNO ID: [id number] Author: ANYI GANT MD Service: ? Author Type: Fellow Type: Procedures Filed: 01/02/2024 11:46 Note Text: [facility] IUI PROCEDURE NOTE Date: 01/02/2024 Primary Proceduralist: Uma Aguilera MD Consents and Labels Consent Signed: Informed Consent obtained and on the chart Labels Verified With Patient: Yes Indications: Nelli Carpenter, is a 33 year old female here today for intrauterine insemination. IUI # 2. Cycle Day: 15 Last menstrual period: 12/19/2023 [place] Protocol: UNIVERSAL PROTOCOL / SAFETY CHECKLIST Procedure to be Performed: Intrauterine Insemination Sign In: A Moment of CARE was completed. Personnel directly involved with the procedure wore the appropriate PPE (Personal Protective Equipment). Patient/Surrogate Stated/Verified: PATIENT VERIFIED(optional for EMERGENT procedures): Patient name, Date of , Relevant allergies, and The intended procedure Time Out Communication: Intended patient and procedure match the source documents. Consent documented and matches the intended procedure. Sign Out: SIGN OUT (optional for EMERGENT procedures): No specimen collected. Uma Aguilera MD The sensitive examination was discussed with the Patient or Patient's Authorized Double End Trimmer. As applicable, any other physician, advance practice provider, medical student, or other health professional student that will be observing or involved in the sensitive examination for educational or training purposes was discussed with the Patient or Authorized Double End Trimmer. The Patient or Authorized Double End Trimmer has agreed to proceed with the sensitive examination. (Sensitive examination includes inspection and/or palpation of the breasts, pelvis, prostate and anorectal regions) Patient declined winder hand. IUI IUI Date: 01/02/24 Partner's Name: Wanda Carpenter IUI Time: 11:29 AM EDT Partner's : 04/20/1993 IUI #: 2 Partner's Partner's Ethnicity/Race: NOT or Patient's LMP: 12/19/23 Cycle Day: 15 Pre-Procedure Diagnosis: Infertility Post-Procedure Diagnosis: Infertility Cycle Meds: Natural Cycle Trigger: LH Surge Date Catheter Type: Curve catheter Tenaculum: No Catheter passed: Easy Complications: None Sperm Information: Source of Sperm: Donor Fresh/Frozen: Frozen TMC (total motile count of sperm after wash): 34.7 million Cycle reviewed, all questions answered. Pt instructed to take a test in 17 days if no menses and call with results. SIGNATURE: Uma Aguilera MD PATIENT NAME: Nelli Carpenter DATE: January 02, 2024 TIME: 11:32 AM Agree with above documentation. I was available during the adams components of this patient visit and discussed the patient's plan of management with Dr. Aguilera and patient. Dr. Anyi Gant M.D. Reproductive Endocrinology and Infertility [facility] 01-02-2024 Procedure note [facility] IUI PROCEDURE NOTE Date: 01/02/2024 Primary Proceduralist: Uma Aguilera MD Consents and Labels Consent Signed: Informed Consent obtained and on the chart Labels Verified With Patient: Yes Indications: Nelli Carpenter, is a 33 year old female here today for intrauterine insemination. IUI # 2. Cycle Day: 15 Last menstrual period: 12/19/2023 [place] Protocol: UNIVERSAL PROTOCOL / SAFETY CHECKLIST Procedure to be Performed: Intrauterine Insemination Sign In: A Moment of CARE was completed. Personnel directly involved with the procedure wore the appropriate PPE (Personal Protective Equipment). Patient/Surrogate Stated/Verified: PATIENT VERIFIED(optional for EMERGENT procedures): Patient name, Date of , Relevant allergies, and The intended procedure Time Out Communication: Intended patient and procedure match the source documents. Consent documented and matches the intended procedure. Sign Out: SIGN OUT (optional for EMERGENT procedures): No specimen collected. Uma Aguilera MD The sensitive examination was discussed with the Patient or Patient's Authorized Double End Trimmer. As applicable, any other physician, advance practice provider, medical student, or other health professional student that will be observing or involved in the sensitive examination for educational or training purposes was discussed with the Patient or Authorized Double End Trimmer. The Patient or Authorized Double End Trimmer has agreed to proceed with the sensitive examination. (Sensitive examination includes inspection and/or palpation of the breasts, pelvis, prostate and anorectal regions) Patient declined winder hand. IUI IUI Date: 01/02/24 Partner's Name: Wanda Carpenter IUI Time: 11:29 AM EDT Partner's : [birth year]/20/1992 IUI #: 2 Partner's Partner's Ethnicity/Race: NOT or Patient's LMP: 12/19/23 Cycle Day: 15 Pre-Procedure Diagnosis: Infertility Post-Procedure Diagnosis: Infertility Cycle Meds: Natural Cycle Trigger: LH Surge Date Catheter Type: Curve catheter Tenaculum: No Catheter passed: Easy Complications: None Sperm Information: Source of Sperm: Donor Fresh/Frozen: Frozen TMC (total motile count of sperm after wash): 34.7 million Cycle reviewed, all questions answered. Pt instructed to take a test in 17 days if no menses and call with results. SIGNATURE: Uma Aguilera MD PATIENT NAME: Nelli Carpenter DATE: January 02, 2024 TIME: 11:32 AM Agree with above documentation. I was available during the adams components of this patient visit and discussed the patient's plan of management with Dr. Aguilera and patient. Dr. Anyi Gant M.D. Reproductive Endocrinology and Infertility [facility] Work Phone: 01-02-2024 Procedure note [facility] IUI PROCEDURE NOTE Date: 01/02/2024 Primary Proceduralist: Uma Aguilera MD Consents and Labels Consent Signed: Informed Consent obtained and on the chart Labels Verified With Patient: Yes Indications: Nelli Carpenter, is a 33 year old female here today for intrauterine insemination. IUI # 2. Cycle Day: 15 Last menstrual period: 12/19/2023 [place] Protocol: UNIVERSAL PROTOCOL / SAFETY CHECKLIST Procedure to be Performed: Intrauterine Insemination Sign In: A Moment of CARE was completed. Personnel directly involved with the procedure wore the appropriate PPE (Personal Protective Equipment). Patient/Surrogate Stated/Verified: PATIENT VERIFIED(optional for EMERGENT procedures): Patient name, Date of , Relevant allergies, and The intended procedure Time Out Communication: Intended patient and procedure match the source documents. Consent documented and matches the intended procedure. Sign Out: SIGN OUT (optional for EMERGENT procedures): No specimen collected. Uma Aguilera MD The sensitive examination was discussed with the Patient or Patient's Authorized Double End Trimmer. As applicable, any other physician, advance practice provider, medical student, or other health professional student that will be observing or involved in the sensitive examination for educational or training purposes was discussed with the Patient or Authorized Double End Trimmer. The Patient or Authorized Double End Trimmer has agreed to proceed with the sensitive examination. (Sensitive examination includes inspection and/or palpation of the breasts, pelvis, prostate and anorectal regions) Patient declined winder hand. IUI IUI Date: 01/02/24 Partner's Name: Wanda Carpenter IUI Time: 11:29 AM EDT Partner's : [birth year]/20/1993 IUI #: 2 Partner's Partner's Ethnicity/Race: NOT or Patient's LMP: 12/19/23 Cycle Day: 15 Pre-Procedure Diagnosis: Infertility Post-Procedure Diagnosis: Infertility Cycle Meds: Natural Cycle Trigger: LH Surge Date Catheter Type: Curve catheter Tenaculum: No Catheter passed: Easy Complications: None Sperm Information: Source of Sperm: Donor Fresh/Frozen: Frozen TMC (total motile count of sperm after wash): 34.7 million Cycle reviewed, all questions answered. Pt instructed to take a test in 17 days if no menses and call with results. SIGNATURE: Uma Aguilera MD PATIENT NAME: Nelli Carpenter DATE: January 02, 2024 TIME: 11:32 AM Agree with above documentation. I was available during the adams components of this patient visit and discussed the patient's plan of management with Dr. Aguilera and patient. Dr. Anyi Gant M.D. Reproductive Endocrinology and Infertility documented in this encounter [facility] 01-02-2024 Note HNO ID: [id number] Author: FLAVIA ELIZONDO, ? Service: ? Author Type: Fryer Operator Type: Progress Notes Filed: 01/02/2024 11:46 Note Text: IUI specimen released to provider Flavia Elizondo January 02, 2024 11:23 AM [facility] 12-28-2023 History of Presen t illness Narrative Images from the original note were not included. Subjective Patient ID: Nelli Carpenter is a 33 y.o. female who presents for Immunizations (Patient declines at this time. ). HPI Pt here for follow up. Has been following with [facility] for infertility. Recently had an IUI that was successful, but did not results in a . Has had BW done. Plans to have repeat IUI. Review of Systems General: Denies fever, chills, fatigue, GARCIA or weight loss/gain CV: Denies CP, palpitations or swelling in legs Resp: denies cough, SOB or wheezing GI: Denies abd pain/n/v/c/d Skin: Denies rash Neuro: Denies LH or dizziness Objective Blood pressure 116/78, pulse 76, temperature 98.6 F, temperature source Temporal, height 5' 3 , weight 209 lb, SpO2 98%. Body mass index is 37.02 kg/m . Physical Exam General: alert & oriented, NAD Head: NC/AT Oral Cavity: MMM Skin: warm, dry Heart: RRR, No m/r/g, S1S2 nml Lungs: CTA b/l Abdomen: soft, ND/NT, BS wnl Musculoskeletal: normal gait Extremities: no clubbing, cyanosis or edema Neurological: nonfocal Psych: mood/affect full range Assessment/Plan Nelli was seen today for immunizations. Diagnoses and all orders for this visit: Infertility, female (Primary) - Ambulatory referral to Obstetrics / Gynecology; Future - continue to follow w/ [facility] BMI 37.0-37.9, adult Morbid obesity (CMS/HCC) - continue to monitor weight documented in this encounter [facility] 12-05-2023 Note HNO ID: [id number] Author: STEPHANIE LARA, ? Service: ? Author Type: ? Type: Progress Notes Filed: 12/06/2023 08:45 Note Text: IUI Xytex #[id number] Frozen washed specimen Post: 145 Million/mL, 68% Insem #: 49 Million [facility] 12-05-2023 History of Presen t illness Narrative IUI Xytex #[id number] Frozen washed specimen Post: 145 Million/mL, 68% Insem #: 49 Million IUI specimen released to provider Stephanie Lara December 05, 2023 10:19 AM documented in this encounter [facility] 12-05-2023 Note HNO ID: [id number] Author: MYRIAM DOMINGUEZ MD Service: ? Author Type: Fellow Type: Procedures Filed: 12/06/2023 08:45 Note Text: [facility] IUI PROCEDURE NOTE Date: 12/05/2023 Primary Proceduralist: Uma Aguilera MD Consents and Labels Consent Signed: Informed Consent obtained and on the chart Labels Verified With Patient: Yes Indications: Nelli Carpenter, is a 33 year old female here today for intrauterine insemination. IUI # 1. Cycle Day: 15 Last menstrual period: 11/21/2023 [place] Protocol: UNIVERSAL PROTOCOL / SAFETY CHECKLIST Procedure to be Performed: Intrauterine insemination Sign In: A Moment of CARE was completed. Personnel directly involved with the procedure wore the appropriate PPE (Personal Protective Equipment). Patient/Surrogate Stated/Verified: PATIENT VERIFIED(optional for EMERGENT procedures): Patient name, Date of , Relevant allergies, and The intended procedure Time Out Communication: Intended patient and procedure match the source documents. Consent documented and matches the intended procedure. Sign Out: SIGN OUT (optional for EMERGENT procedures): No specimen collected. Patient declined winder hand. Uma Aguilera MD IUI IUI Date: 12/05/23 Partner's Name: Wanda Carpenter IUI Time: 10:25 AM EDT Partner's : [birth year]/20/1992 IUI #: 1 Partner's Partner's Ethnicity/Race: NOT or Patient's LMP: 11/21/23 Cycle Day: 15 Pre-Procedure Diagnosis: Infertility Post-Procedure Diagnosis: Infertility Cycle Meds: Natural Cycle Trigger: LH Surge Date Catheter Type: Curve catheter Tenaculum: No Catheter passed: Easy Complications: None Sperm Information: Source of Sperm: Donor Fresh/Frozen: Frozen TMC (total motile count of sperm after wash): 49 million Donor ID #: [id number] Cycle reviewed, all questions answered. Pt instructed to take a test in 17 days if no menses and call with results. SIGNATURE: Uma Aguilera MD PATIENT NAME: Nelli Carpenter DATE: December 05, 2023 TIME: 10:31 AM I was present and immediately available for the entire procedure. Patient underwent an intrauterine insemination. Myriam Dominguez MD, TRUDY [facility] 12-05-2023 Procedure note [facility] IUI PROCEDURE NOTE Date: 12/05/2023 Primary Proceduralist: Uma Aguilera MD Consents and Labels Consent Signed: Informed Consent obtained and on the chart Labels Verified With Patient: Yes Indications: Nelli Carpenter, is a 33 year old female here today for intrauterine insemination. IUI # 1. Cycle Day: 15 Last menstrual period: 11/21/2023 [place] Protocol: UNIVERSAL PROTOCOL / SAFETY CHECKLIST Procedure to be Performed: Intrauterine insemination Sign In: A Moment of CARE was completed. Personnel directly involved with the procedure wore the appropriate PPE (Personal Protective Equipment). Patient/Surrogate Stated/Verified: PATIENT VERIFIED(optional for EMERGENT procedures): Patient name, Date of , Relevant allergies, and The intended procedure Time Out Communication: Intended patient and procedure match the source documents. Consent documented and matches the intended procedure. Sign Out: SIGN OUT (optional for EMERGENT procedures): No specimen collected. Patient declined winder hand. Uma Aguilera MD IUI IUI Date: 12/05/23 Partner's Name: Wanda Carpenter IUI Time: 10:25 AM EDT Partner's : [birth year]/20/1992 IUI #: 1 Partner's Partner's Ethnicity/Race: NOT or Patient's LMP: 11/21/23 Cycle Day: 15 Pre-Procedure Diagnosis: Infertility Post-Procedure Diagnosis: Infertility Cycle Meds: Natural Cycle Trigger: LH Surge Date Catheter Type: Curve catheter Tenaculum: No Catheter passed: Easy Complications: None Sperm Information: Source of Sperm: Donor Fresh/Frozen: Frozen TMC (total motile count of sperm after wash): 49 million Donor ID #: [id number] Cycle reviewed, all questions answered. Pt instructed to take a test in 17 days if no menses and call with results. SIGNATURE: Uma Aguilera MD PATIENT NAME: Nelli Carpenter DATE: December 05, 2023 TIME: 10:31 AM I was present and immediately available for the entire procedure. Patient underwent an intrauterine insemination. Myriam Dominguez MD, TRUDY [facility] Work Phone: 12-05-2023 Procedure note [facility] IUI PROCEDURE NOTE Date: 12/05/2023 Primary Proceduralist: Uma Aguilera MD Consents and Labels Consent Signed: Informed Consent obtained and on the chart Labels Verified With Patient: Yes Indications: Nelli Carpenter, is a 33 year old female here today for intrauterine insemination. IUI # 1. Cycle Day: 15 Last menstrual period: 11/21/2023 [place] Protocol: UNIVERSAL PROTOCOL / SAFETY CHECKLIST Procedure to be Performed: Intrauterine insemination Sign In: A Moment of CARE was completed. Personnel directly involved with the procedure wore the appropriate PPE (Personal Protective Equipment). Patient/Surrogate Stated/Verified: PATIENT VERIFIED(optional for EMERGENT procedures): Patient name, Date of , Relevant allergies, and The intended procedure Time Out Communication: Intended patient and procedure match the source documents. Consent documented and matches the intended procedure. Sign Out: SIGN OUT (optional for EMERGENT procedures): No specimen collected. Patient declined winder hand. Uma Aguilera MD IUI IUI Date: 12/05/23 Partner's Name: Wanda Carpenter IUI Time: 10:25 AM EDT Partner's : [birth year]/20/1993 IUI #: 1 Partner's Partner's Ethnicity/Race: NOT or Patient's LMP: 11/21/23 Cycle Day: 15 Pre-Procedure Diagnosis: Infertility Post-Procedure Diagnosis: Infertility Cycle Meds: Natural Cycle Trigger: LH Surge Date Catheter Type: Curve catheter Tenaculum: No Catheter passed: Easy Complications: None Sperm Information: Source of Sperm: Donor Fresh/Frozen: Frozen TMC (total motile count of sperm after wash): 49 million Donor ID #: [id number] Cycle reviewed, all questions answered. Pt instructed to take a test in 17 days if no menses and call with results. SIGNATURE: Uma Aguilera MD PATIENT NAME: Nelli Carpenter DATE: December 05, 2023 TIME: 10:31 AM I was present and immediately available for the entire procedure. Patient underwent an intrauterine insemination. Myriam Dominguez MD, TRUDY documented in this encounter [facility] 12-05-2023 History of Presen t illness Narrative Thaw for IUI Stephanie Lara documented in this encounter [facility] 12-05-2023 Note HNO ID: [id number] Author: MARCO STEPHANIE, ? Service: ? Author Type: ? Type: Progress Notes Filed: 12/05/2023 10:23 Note Text: Thaw for IUI Stephanie Lara [facility] 12-05-2023 Note HNO ID: [id number] Author: STEPHANIE LARA, ? Service: ? Author Type: ? 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 Tubal Patency Testing: defer for now Sperm Source:Donor Frozen Treatment Protocol: Natural Cycle Monitoring Plan: OPKs Ovidrel Trigger: No Supplemental Progesterone: None Comments: None Andressa Abraham APRN.CNP 11/23/2023 documented in this encounter [facility] 11-23-2023 Instructions Andressa Abraham APRN.CNP - 11/23/2023 5:55 PM EDT Images from the original note were not included. REPRODUCTIVE ENDOCRINOLOGY AND INFERTILITY DONOR SPERM HANDOUT Donor Sperm Checklist Complete Insurance Authorization/Financial Clearance Before you proceed with any treatments, call your insurance to find out what your benefits are for infertility testing and treatment. Some insurances require a pre-certification form be filled out and submitted by our office before you begin your testing/medication/treatment. Please ask your insurance if a pre-certification is necessary for your coverage and if it is required please let us know as soon as possible so that we can complete this in a timely fashion. Please note: Insurance authorization/financial clearance is required for donor sperm insemination. In the event that insurance authorization is not complete by the time you need services, you can choose to pay out of pocket, or wait until your next cycle to proceed with your treatment plan. You will need to know if you are using a prewashed vial or an unwashed vial in order to get accurate pricing/authorization from the office. If your insurance covers IUI (or if you don t know if your insurance covers IUI), contact the office once your checklist is complete to initiate authorization for donor sperm insemination. The office will need to submit authorization to your insurance and confirm your financial responsibility. This process can take up to 28 days. In the event that insurance authorization is not complete by the time you need services, you can choose to pay out of pocket, or wait until your next cycle to proceed with your treatment plan. If your insurance does not cover IUI, please call the office with the first business day of your period and let the front desk worker know you will be doing donor sperm insemination. The financial office will contact you to collect payment early in your cycle. You will not be able to schedule an IUI unless you have made payment. We want to help make your experience as smooth as possible. Please do not hesitate to call if you should have any questions. Contact Donor Insemination Scheduling Instructions Please call during the first business day of your menstrual cycle to let the front desk worker know you will be testing and doing an insemination this cycle. Make sure you are authorized/cleared to do an IUI. Timing In order to determine the timing for IUI you will need to use an Ovulation Predictor Kit. Upon rising, empty your bladder. Collect the second urine of the day 1 hour later and use this to test your LH surge. Please start testing on cycle day 10 and continue until you get a positive reading. If you are using Clomid or Letrozole, you should begin testing 3 days after your last pill. You come in for IUI the day after your LH surge. Please avoid Ibuprofen or similar medications (Advil, Motrin, Anaprox, or Aleve) for 2 days after the LH surge as they may interfere with ovulation. Please use Tylenol instead. If you do not get a positive on your OPK by cycle day 21, please call the office to discuss. Location [address], [place] [address] Available every day, including weekends and holidays (except Lauren and New Years.) Weekday IUI scheduling The day you get your LH surge, please call [phone] between 8:00am - 12:00pm to schedule your insemination for the next day. If you call after 12pm, we may not be able to schedule your appointment. IUI s are done by appointment only. You will make 2 appointments - an arrival time and an IUI time. Donor sperm IUI is available at the following location: [address], [address] [place] [address] Available every day, including weekends and holidays (except Lauren and New Years.) Available for IUI using fresh and frozen samples. Check in location for sperm wash and IUI: [address] [facility]. The sperm wash takes 60-90 minutes. Weekend/Holiday IUI Scheduling If your LH surge occurs on a weekend or holiday, please call between 8am and 12pm. If you call after 12pm, we may not be able to schedule your appointment. There will be a pre-recorded greeting announcing the office is closed. Please stay on the line for the answering service. They will put a page through to the staff on-call. Return calls may take an hour or longer as we are in the office doing procedures. We will return your call as soon as we are able and give you appointment times for the following day. Due to new guidelines, we have a limited number of procedure slots available on the weekend. After IUI: take a home test 14-17 days after IUI (even if you bleed) and call the office with updates. If you are , we will order blood tests, schedule a Virtual Visit and perform an ultrasound before you graduate from our department. If you get your period and want to do another IUI: Call the front desk worker to make sure you are financially cleared. Ask to speak to an NELLY to confirm your treatment plan. Important phone number: [phone] documented in this encounter [facility] 11-23-2023 Note HNO ID: [id number] Author: ANDRESSA ABRAHAM APRN.CNP Service: ? Author Type: Nurse Practitioner Type: Progress Notes Filed: 11/23/2023 17:58 Note Text: REPRODUCTIVE ENDOCRINOLOGY AND INFERTILITY VIRTUAL VISIT PROGRESS NOTE SERVICE DATE: 11/23/2023 SERVICE TIME: 9:09 AM NAME: Nelli Carpenter VIRTUAL VISIT PROGRESS NOTE This is a virtual visit. It required patient-provider interaction for the medical decision making as documented below. Patient name and birthday verified: Yes Location of patient: home Persons Present: patient and patient's spouse/significant other I have communicated my name and active licensure. The patient's identity and physical location were verified at the time of this visit. Either the patient or their legal small business sales representative has been informed of the risks and benefits of -- and alternatives to -- treatment through a remote evaluation and consents to proceed with the evaluation remotely. Reason for visit: treatment planning HPI Nelli is a donor sperm patient. Donor sperm checklist is complete, donor has been selected and shipped. LMP 11/20 LMP 10/24, +OPK 11/06 LMP: 09/26, +OPK 10/09, Latest Ref Rng 10/16/2023 Progesterone See comment ng/mL 7.4 Encounter Diagnosis ICD-10-CM 1. Reproductive mgmt, infertility due to male factor Z31.81 N97.8 She is able to hop picker OPK every cycle, luteal phase is appropriate. Reviewed IUI scheduling and IUI procedure. Plan: natural cycle IUI-D timed with OPK. Sign IUI consent at earliest convenience. Andressa Abraham APRN.CNP November 23, 2023 9:09 AM I spent a total of 25 minutes on the date of the service which included preparing to see the patient, [id number] patient care, completing clinical documentation, obtaining and/or reviewing separately obtained history, counseling and educating the patient/family/caregiver, ordering medications, tests, or procedures, and care coordination (not separately reported). To patients reading this note: Please be advised the primary purpose of this note is for me to communicate with myself and other members of your medical team. Standard sentence structure is not always used. Medical terminology and medical abbreviations may be used. There may be grammatical and typographical errors missed in proofreading. [facility] 11-23-2023 History of Presen t illness Narrative Images from the original note were not included. REPRODUCTIVE ENDOCRINOLOGY AND INFERTILITY VIRTUAL VISIT PROGRESS NOTE SERVICE DATE: 11/23/2023 SERVICE TIME: 9:09 AM NAME: Nelli Carpenter VIRTUAL VISIT PROGRESS NOTE This is a virtual visit. It required patient-provider interaction for the medical decision making as documented below. Patient name and birthday verified: Yes Location of patient: home Persons Present: patient and patient's spouse/significant other I have communicated my name and active licensure. The patient's identity and physical location were verified at the time of this visit. Either the patient or their legal small business sales representative has been informed of the risks and benefits of -- and alternatives to -- treatment through a remote evaluation and consents to proceed with the evaluation remotely. Reason for visit: treatment planning HPI Nelli is a donor sperm patient. Donor sperm checklist is complete, donor has been selected and shipped. LMP 11/20 LMP 10/24, +OPK 11/06 LMP: 09/26, +OPK 10/09, Latest Ref Rng 10/16/2023 Progesterone See comment ng/mL 7.4 Encounter Diagnosis ICD-10-CM 1. Reproductive mgmt, infertility due to male factor Z31.81 N97.8 She is able to hop picker OPK every cycle, luteal phase is appropriate. Reviewed IUI scheduling and IUI procedure. Plan: natural cycle IUI-D timed with OPK. Sign IUI consent at earliest convenience. Andressa Abraham APRN.REHABILITATION WORKER November 23, 2023 9:09 AM I spent a total of 25 minutes on the date of the service which included preparing to see the patient, [id number] patient care, completing clinical documentation, obtaining and/or reviewing separately obtained history, counseling and educating the patient/family/caregiver, ordering medications, tests, or procedures, and care coordination (not separately reported). To patients reading this note: Please be advised the primary purpose of this note is for me to communicate with myself and other members of your medical team. Standard sentence structure is not always used. Medical terminology and medical abbreviations may be used. There may be grammatical and typographical errors missed in proofreading. documented in this encounter [facility] 10-12-2023 Telephone encounter Note Called the patient she verified her name and date of patient is doing practice cycle Patient had peak on her opk 10-10-23 last period 09-27-23 Needs progesterone order I advised she goes in 6-8 days from positive opk not on fertility meds Laura Roque RN October 12, 2023 12:54 PM [facility] 10-12-2023 Miscellaneous Notes Called the patient she verified her name and date of patient is doing practice cycle Patient had peak on her opk 10-10-23 last period 09-27-23 Needs progesterone order I advised she goes in 6-8 days from positive opk not on fertility meds Laura Roque RN October 12, 2023 12:54 PM Partner Wanda calling re +ov need to schedule progesterone test for Nelli when to have it done. Please follow up with Wanda. documented in this encounter [facility] 10-12-2023 Telephone encounter Note Partner Wanda calling re +ov need to schedule progesterone test for Nelli when to have it done. Please follow up with Wanda. 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 Gallegos's report Finalize sperm donor selection. Financial Clearance. Ready to move forward with treatment plan. Treatment plan: pending practice cycle Practice with Ovulation Predictor Kit (OPK): First day of full flow is cycle day #1. Start using on ovulation predictor kit on cycle day 10. Use your OPK once a day, in the morning with your second urine of the day. Call when you get a positive OPK. (If you get the positive OPK on a weekend, please call Thursday.) A progesterone order will be placed. Please go to the lab 6-8 days after the positive on your OPK. If you do not get a positive on your OPK by cycle day 21, please call the office. We will do the progesterone level at that time to confirm your ovulation status. Sperm Ordering Instructions [facility] You have the opportunity to choose your donor sperm sample from any sperm bank. You will be responsible for ordering the sample yourself and arranging for shipment to [facility]. Sperm Bank [employer] [place] [facility] [facility] ([facility] [place]) [place] [facility] Let us know the sperm bank you choose. If you choose a bank not on this list, we will make sure it is an FDA approved bank. Guidance in Selecting a Sperm Donor Choose a donor with the following: Blood type/Rh factor (Rhesus factor): any CMV Status: any Genetic Testing Considerations: Donor must have been tested for Cystic Fibrosis and Familial Mediterranean Fever and not carry them. If the donor is a carrier for something, you must have been tested for that disorder to know you are not a carrier (make sure it's on the list of conditions tested). Once you choose a favorite donor (with a backup), please send me a [employer] message titled Sperm Donor Choice. Include the name of the sperm bank and the donor profile numbers. I will review the donors clinical information and test results and confirm it is a good choice with your test results. Once you get this confirmation from me, you can order your vials. Types of Sperm Vials Sperm can be prepared and purchased in different vial types from sperm schroeder. IUI (Intrauterine insemination) or prewashed vial. These samples have been washed and are ready to use at thaw. ICI (Intracervical insemination) or unwashed vial. These samples have not been washed and will incur additional cost for our Andrology lab to wash it for you. IVF/ART vial. For your treatment plan, we recommend to order the following vial type: IUI/prewashed. We need 1 vial per treatment cycle. If you are doing inseminations, we encourage you to buy 3 vials-this will save on shipping cost and hassle of reordering specimens. If you are doing IVF, you need 1 vial. Ordering Instructions Do not order anything until your checklist is complete and you have confirmation from the office on your donor choice. When to order: If doing IUI - when your period starts, make sure you have placed your order or have sperm already in the office. Mailing address: Attention: Flavia Elizondo [address] [place] [address], [address] [place] [address] Storage at the [facility] is available. Fees are yearly and only start once you are not actively trying. Please ask the financial team ([phone]) for current cost information. Insurance Authorization/Financial Clearance Before you proceed with any treatments, call your insurance to find out what your benefits are for infertility testing and treatment. Some insurances require a pre-certification form be filled out and submitted by our office before you begin your testing/medication/treatment. Please ask your insurance if a pre-certification is necessary for your coverage and if it is required please let us know as soon as possible so that we can complete this in a timely fashion. Please note: Insurance authorization/financial clearance is required for donor sperm insemination. In the event that insurance authorization is not complete by the time you need services, you can choose to pay out of pocket, or wait until your next cycle to proceed with your treatment plan. You will need to know if you are using a prewashed vial or an unwashed vial in order to get accurate pricing/authorization from the office. If your insurance covers IUI (or if you don t know if your insurance covers IUI), contact the office once your checklist is complete to initiate authorization for donor sperm insemination. The office will need to submit authorization to your insurance and confirm your financial responsibility. This process can take up to 28 days. In the event that insurance authorization is not complete by the time you need services, you can choose to pay out of pocket, or wait until your next cycle to proceed with your treatment plan. If your insurance does not cover IUI, please call the office with the first business day of your period and let the front desk worker know you will be doing donor sperm insemination. The financial office will contact you to collect payment early in your cycle. You will not be able to schedule an IUI unless you have made payment. We want to help make your experience as smooth as possible. Please do not hesitate to call if you should have any questions. Contact documented in this encounter [facility] 09-11-2023 Note HNO ID: [id number] Author: ANDRESSA ABRAHAM APRN.CNP Service: ? Author Type: Nurse Practitioner Type: Progress Notes Filed: 09/15/2023 16:56 Note Text: REPRODUCTIVE ENDOCRINOLOGY AND INFERTILITY DONOR SPERM FOLLOW UP SERVICE DATE: 09/11/2023 SERVICE TIME: 8:08 AM NAME: Nelli Carpenter Persons Present: Marlin Reason for visit: donor sperm follow up HPI Nelli and Wanda present today for donor sperm follow up. Donor sperm labs and carrier screen done. They met with Dr. Gallegos a couple of days ago. Spouse - Wanda - does not wish to take a turn Test results - donor labs/[facility]: Latest Ref Rng 07/28/2023 ABO O Rh(D) Positive Antibody Screen Negative (C) Type+Scr Expiration 07/31/2023 23:59 Historical Ab Scr Status NEGATIVE HIV 12 Combo (Ag/Ab) Nonreactive Nonreactive HIV 1/2 Ab -- HIV Interpretation -- CMV IgG Qualitative Negative Negative CMV Antibody, IgG U/mL <0.20 Syphilis Screen Result Nonreactive Nonreactive Syphilis Interpretation Cannot exclude recent Treponemal infection if specimen collected within 7-10 days after appearance of suspect lesions or 2-3 weeks after an exposure. Clinical correlation is required. Neisseria gonorrhoeae (GC) Negative for Neisseria gonorrhoeae by amplification Negative for Neisseria gonorrhoeae by amplification Chlamydia trachomatis (CT) Negative for Chlamydia trachomatis by amplificaton Negative for Chlamydia trachomatis by amplification Varicella Zoster IgG, Qual Positive Positive Rubella IgG, Qual Positive Negative ! CMV IgM, Qual Negative Negative Hep C Antibody IA Negative Negative Hep B Core Ab, Total Negative Negative Hep B Surface Ag Negative Negative Wanda'kevin results: Latest Ref Rng 07/28/2023 08/06/2023 ABO O Rh(D) Positive Antibody Screen Negative Type+Scr Expiration 08/09/2023 23:59 Historical Ab Scr Status NEGATIVE HIV 12 Combo (Ag/Ab) Nonreactive Nonreactive HIV 1/2 Ab -- HIV Interpretation -- CMV IgG Qualitative Negative Negative CMV Antibody, IgG U/mL <0.20 Syphilis Screen Result Nonreactive Nonreactive Syphilis Interpretation Cannot exclude recent Treponemal infection if specimen collected within 7-10 days after appearance of suspect lesions or 2-3 weeks after an exposure. Clinical correlation is required. Neisseria gonorrhoeae (GC) Negative for Neisseria gonorrhoeae by amplification Negative for Neisseria gonorrhoeae by amplification Chlamydia trachomatis (CT) Negative for Chlamydia trachomatis by amplificaton Negative for Chlamydia trachomatis by amplification CMV IgM, Qual Negative Negative Hep C Antibody IA Negative Negative Hep B Core Ab, Total Negative Negative Hep B Surface Ag Negative Negative Practice cycle: patient did test for ovulation, but isn't sure how many positives she got in a row and did not call in for a blood test. LMP 5/8, +OPK cycle day 12 - 26 day long cycle LMP 6/ Treatment plan: pending - likely natural cycle/IUI. 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 If the donor is a carrier for something, you must have been tested for that disorder to know you are not a carrier (make sure it's on the list of conditions tested). Donor choice: pending Plan: Donor Sperm episode/checklist updated. Consent signed today. Pending checklist items: - waiting on Dr. Gallegos's report - Practice cycle with next period - make a list of favorite donors - send to me via [employer] to confirm Confirmed best vial type to order: IUI/prewashed Will need to follow up to firm up treatment plan and review IUI scheduling instructions. Andressa Abraham APRN.REHABILITATION WORKER September 11, 2023 8:08 AM I spent a total of 50 minutes on the date of the service which included preparing to see the patient, [id number] patient care, completing clinical documentation, obtaining and/or reviewing separately obtained history, counseling and educating the patient/family/caregiver, ordering medications, tests, or procedures, independently interpreting results (not separately reported), communicating results to the patient/family/caregiver, and care coordination (not separately reported). To patients reading this note: Please be advised the primary purpose of this note is for me to communicate with myself and other members of your medical team. Standard sentence structure is not always used. Medical terminology and medical abbreviations may be used. There may be gramma (more content not included)... [facility] 09-11-2023 History of Presen t illness Narrative REPRODUCTIVE ENDOCRINOLOGY AND INFERTILITY DONOR SPERM FOLLOW UP SERVICE DATE: 09/11/2023 SERVICE TIME: 8:08 AM NAME: Nelli Carpenter Persons Present: Nelli and Wanda Reason for visit: donor sperm follow up HPI Nelli and Wanda present today for donor sperm follow up. Donor sperm labs and carrier screen done. They met with Dr. Gallegos a couple of days ago. Spouse - Wanda - does not wish to take a turn Test results - donor labs/[facility]: Latest Ref Rng 07/28/2023 ABO O Rh(D) Positive Antibody Screen Negative (C) Type+Scr Expiration 07/31/2023 23:59 Historical Ab Scr Status NEGATIVE HIV 12 Combo (Ag/Ab) Nonreactive Nonreactive HIV 1/2 Ab -- HIV Interpretation -- CMV IgG Qualitative Negative Negative CMV Antibody, IgG U/mL <0.20 Syphilis Screen Result Nonreactive Nonreactive Syphilis Interpretation Cannot exclude recent Treponemal infection if specimen collected within 7-10 days after appearance of suspect lesions or 2-3 weeks after an exposure. Clinical correlation is required. Neisseria gonorrhoeae (GC) Negative for Neisseria gonorrhoeae by amplification Negative for Neisseria gonorrhoeae by amplification Chlamydia trachomatis (CT) Negative for Chlamydia trachomatis by amplificaton Negative for Chlamydia trachomatis by amplification Varicella Zoster IgG, Qual Positive Positive Rubella IgG, Qual Positive Negative ! CMV IgM, Qual Negative Negative Hep C Antibody IA Negative Negative Hep B Core Ab, Total Negative Negative Hep B Surface Ag Negative Negative Wanda's results: Latest Ref Rng 07/28/2023 08/06/2023 ABO O Rh(D) Positive Antibody Screen Negative Type+Scr Expiration 08/09/2023 23:59 Historical Ab Scr Status NEGATIVE HIV 12 Combo (Ag/Ab) Nonreactive Nonreactive HIV 1/2 Ab -- HIV Interpretation -- CMV IgG Qualitative Negative Negative CMV Antibody, IgG U/mL <0.20 Syphilis Screen Result Nonreactive Nonreactive Syphilis Interpretation Cannot exclude recent Treponemal infection if specimen collected within 7-10 days after appearance of suspect lesions or 2-3 weeks after an exposure. Clinical correlation is required. Neisseria gonorrhoeae (GC) Negative for Neisseria gonorrhoeae by amplification Negative for Neisseria gonorrhoeae by amplification Chlamydia trachomatis (CT) Negative for Chlamydia trachomatis by amplificaton Negative for Chlamydia trachomatis by amplification CMV IgM, Qual Negative Negative Hep C Antibody IA Negative Negative Hep B Core Ab, Total Negative Negative Hep B Surface Ag Negative Negative Practice cycle: patient did test for ovulation, but isn't sure how many positives she got in a row and did not call in for a blood test. LMP 5/8, +OPK cycle day 12 - 26 day long cycle LMP 6/ Treatment plan: pending - likely natural cycle/IUI. 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 If the donor is a carrier for something, you must have been tested for that disorder to know you are not a carrier (make sure it's on the list of conditions tested). Donor choice: pending Plan: Donor Sperm episode/checklist updated. Consent signed today. Pending checklist items: - waiting on Dr. Gallegos's report - Practice cycle with next period - make a list of favorite donors - send to me via [employer] to confirm Confirmed best vial type to order: IUI/prewashed Will need to follow up to firm up treatment plan and review IUI scheduling instructions. Andressa Abraham APRN.REHABILITATION WORKER September 11, 2023 8:08 AM I spent a total of 50 minutes on the date of the service which included preparing to see the patient, [id number] patient care, completing clinical documentation, obtaining and/or reviewing separately obtained history, counseling and educating the patient/family/caregiver, ordering medications, tests, or procedures, independently interpreting results (not separately reported), communicating results to the patient/family/caregiver, and care coordination (not separately reported). To patients reading this note: Please be advised the primary purpose of this note is for me to communicate with myself and other members of your medical team. Standard sentence structure is not always used. Medical terminology and medical abbreviations may be used. There may be grammatical and typographical errors missed in proofreading. documented in this encounter [facility] 07-28-2023 Telephone encounter Note Sheyla labs are in process partner Wanda Carpenter, - labs are in process except blood type and screen - called [facility]. This lab was not collected and can not be added. test reordered. patient will have to go back to the lab to have this drawn. 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 sent [employer] message. Andressa Abraham APRN.CNP July 28, 2023 12:27 PM [facility] 07-28-2023 Miscellaneous Notes Sheyla labs are in process partner Wanda Carpenter, - labs are in process except blood type and screen - called [facility]. This lab was not collected and can not be added. test reordered. patient will have to go back to the lab to have this drawn. 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 sent [employer] message. Andressa Abraham APRN.CNP July 28, 2023 12:27 PM Please follow up with patient completed bloodwork today, next steps after labwork. documented in this encounter [facility] 07-28-2023 Telephone encounter Note Please follow up with patient completed bloodwork today, next steps after labwork. [facility] Work Phone: 06-15-2023 Note HNO ID: [id number] Author: ANDRESSA ABRAHAM APRN.LEXUS Service: ? Author Type: Nurse Practitioner Type: Progress Notes Filed: 06/15/2023 18:07 Note Text: REPRODUCTIVE ENDOCRINOLOGY AND INFERTILITY DONOR SPERM TEACH SERVICE DATE: 06/15/2023 SERVICE TIME: 4:06 PM NAME: Nelli Carpenter VIRTUAL VISIT PROGRESS NOTE This is a virtual visit. It required patient-provider interaction for the medical decision making as documented below. Patient name and birthday verified: Yes Location of patient: [place] Persons Present: patient and patient's spouse/significant other I have communicated my name and active licensure. The patient's identity and physical location were verified at the time of this visit. Either the patient or their legal small business sales representative has been informed of the risks and benefits of -- and alternatives to -- treatment through a remote evaluation and consents to proceed with the evaluation remotely. Reason for visit: procreative management, desire for donor sperm IUI HPI Wanda - . She does not plan on taking turns at this time. Menstrual Cycle History Regular cycles: yes, one period a month The patient had a previous male partner for which she had 3 pregnancies the first was delivered normally in 2014 followed by a miscarriage in 2016 and a section in [facility] with. The was because of placenta previa at 37 weeks. She had no postoperative complications. After her delivery she had an IUD which had to be removed by hysteroscopy. She is otherwise healthy except for abnormal weight gain for which she has been prescribed Wegovy. She is a non-smoker. OB History Last Pap/HPV screening: appointment coming up 07/01 Hx Abnormal pap/HPV: yes History of Genetic Abnormality/Genetic Screening: has not been previously tested Treatment plan: donor sperm IUI - will plan natural cycles unless practice cycle confirms she is not ovulating Patient's ideal timeline to proceed with treatment plan: NOEL Checklist update: Donor sperm teach: 06/15/2023 Donor labs: pending Carrier screen: pending Consent form: pending Counselor visit: pending Other: practice cycle: pending Plan: Episode created. screening: TANDS, rubella and varicella immunity Donor sperm labs: patient to verify insurance coverage and let me know Myriad: recommended. Patient will decide if she wants this and let me know. Counselor visit: needs to schedule. Consent form: pending Practice cycle: recommended OPKs to test for ovulation and timing of IUIs, patient to call with +OPK, confirm ovulation with progesterone level Tubal evaluation: HSG, discussed pros/cons of testing tubal patency in unproven fertility, patient desires tubal evaluation prior to IUI: defer for 3 cycles Pelvic ultrasound: defer for 3 cycles Begin folate and vit D supplementation Follow up once checklist is complete to discuss test results and next steps. Andressa Abraham APRN.REHABILITATION WORKER June 15, 2023 4:06 PM I spent a total of 40 minutes on the date of the service which included preparing to see the patient, [id number] patient care, completing clinical documentation, obtaining and/or reviewing separately obtained history, counseling and educating the patient/family/caregiver, ordering medications, tests, or procedures, and care coordination (not separately reported). To patients reading this note: Please be advised the primary purpose of this note is for me to communicate with myself and other members of your medical team. Standard sentence structure is not always used. Medical terminology and medical abbreviations may be used. There may be grammatical and typographical errors missed in proofreading. [facility] 06-15-2023 History of Presen t illness Narrative Images from the original note were not included. REPRODUCTIVE ENDOCRINOLOGY AND INFERTILITY DONOR SPERM TEACH SERVICE DATE: 06/15/2023 SERVICE TIME: 4:06 PM NAME: Nelli Carpenter VIRTUAL VISIT PROGRESS NOTE This is a virtual visit. It required patient-provider interaction for the medical decision making as documented below. Patient name and birthday verified: Yes Location of patient: [place] Persons Present: patient and patient's spouse/significant other I have communicated my name and active licensure. The patient's identity and physical location were verified at the time of this visit. Either the patient or their legal small business sales representative has been informed of the risks and benefits of -- and alternatives to -- treatment through a remote evaluation and consents to proceed with the evaluation remotely. Reason for visit: procreative management, desire for donor sperm IUI HPI Wanda - . She does not plan on taking turns at this time. Menstrual Cycle History Regular cycles: yes, one period a month The patient had a previous male partner for which she had 3 pregnancies the first was delivered normally in 2014 followed by a miscarriage in 2016 and a section in 2017 [facility] with. The was because of placenta previa at 37 weeks. She had no postoperative complications. After her delivery she had an IUD which had to be removed by hysteroscopy. She is otherwise healthy except for abnormal weight gain for which she has been prescribed Wegovy. She is a non-smoker. OB History Last Pap/HPV screening: appointment coming up 07/01 Hx Abnormal pap/HPV: yes History of Genetic Abnormality/Genetic Screening: has not been previously tested Treatment plan: donor sperm IUI - will plan natural cycles unless practice cycle confirms she is not ovulating Patient's ideal timeline to proceed with treatment plan: NOEL Checklist update: Donor sperm teach: 06/15/2023 Donor labs: pending Carrier screen: pending Consent form: pending Counselor visit: pending Other: practice cycle: pending Plan: Episode created. screening: T&S, rubella and varicella immunity Donor sperm labs: patient to verify insurance coverage and let me know Myriad: recommended. Patient will decide if she wants this and let me know. Counselor visit: needs to schedule. Consent form: pending Practice cycle: recommended OPKs to test for ovulation and timing of IUIs, patient to call with +OPK, confirm ovulation with progesterone level Tubal evaluation: HSG, discussed pros/cons of testing tubal patency in unproven fertility, patient desires tubal evaluation prior to IUI: defer for 3 cycles Pelvic ultrasound: defer for 3 cycles Begin folate and vit D supplementation Follow up once checklist is complete to discuss test results and next steps. Andressa Abraham APRN.REHABILITATION WORKER June 15, 2023 4:06 PM I spent a total of 40 minutes on the date of the service which included preparing to see the patient, [id number] patient care, completing clinical documentation, obtaining and/or reviewing separately obtained history, counseling and educating the patient/family/caregiver, ordering medications, tests, or procedures, and care coordination (not separately reported). To patients reading this note: Please be advised the primary purpose of this note is for me to communicate with myself and other members of your medical team. Standard sentence structure is not always used. Medical terminology and medical abbreviations may be used. There may be grammatical and typographical errors missed in proofreading. documented in this encounter [facility] 06-08-2023 Instructions Rahul Zheng MD - 06/08/2023 10:26 AM EDT Images from the original note were not included. Obstetrics and Gynecology [facility] Intrauterine Insemination Scheduling Instructions Please note: Insurance authorization/financial clearance is required with every IUI. Call the office as soon as you decide to move forward with IUI to start the authorization/clearance process. If insurance authorization is not complete by the time you need services, you can choose to pay out of pocket, or wait until your next cycle to proceed with your treatment plan. Timing To determine the timing for an IUI you will need to use an Ovulation Predictor Kit (OPK) to identify your LH surge. Upon rising, empty your bladder. Collect the SECOND urine of the day 1 hour later and use it to test for your LH surge. Be careful not to drink a lot of fluids before you test. Please begin your OPK testing on day 10 if you are taking Clomid or Letrozole days 3-7 OR day 12 if you are taking Clomid or Letrozole days 5-9. If you are not taking any medications, we will advise you when to begin testing. Continue testing until you get a positive OR cycle day 21. Call the office if you get no positive on your ovulation kit by day 21 so we can decide if blood work is needed. You come in for IUI the day after your LH surge. Avoid Ibuprofen or similar medications (Advil, Motrin, Anaprox, or Aleve) for 2 days after the LH surge as they may interfere with ovulation. Please use Tylenol instead. Weekday IUI scheduling The day you get your LH surge, please call [phone] between 8:00am - 12:00pm to schedule your insemination for the next day. If you call after 12pm, we may not be able to schedule your appointment. IUI s are done by appointment only. You will make 2 appointments - one for sperm drop off/collection, and one for the insemination. If you are using a frozen sample, please tell the industrial engineering technician this. You will get an arrival time and an IUI time. IUI is available at the following locations: [facility]: [address] , [place] [address] Weekday availability is limited depending on staffing. Not available on weekends. Not available for those with frozen sperm. Check in location for sperm wash and IUI: 2nd floor, room 208. The sperm wash takes 60-90 minutes. [place]: [address], [place] [address] Weekday availability is limited depending on staffing. Not available on weekends. Not available for those with frozen sperm. Check in location for sperm wash: the 2nd floor Urology/Andrology. The sperm wash takes 60-90 minutes. They will tell you what time to hop picker the sample. Check in location for IUI: 3rd floor OB Specialties Desk. (You will have to hop picker the sample from 2nd floor Urology and bring it with you.) [place]: [address], [address] [place] [address] Available every day, including weekends and holidays (except [place] and New Years.) Available for IUI using fresh and frozen samples. Check in location for sperm wash and IUI: [address] [facility]. The sperm wash takes 60-90 minutes. Weekend/Holiday IUI Scheduling If your LH surge occurs on a weekend or holiday, please call between 8am and 12pm. If you call after 12pm, we may not be able to schedule your appointment. There will be a pre-recorded greeting announcing the office is closed. Please stay on the line for the answering service. They will put a page through to the staff on-call. Return calls may take an hour or longer as we are in the office doing procedures. We will return your call as soon as we are able and give you appointment times for the following day. Due to new guidelines, we have a limited number of procedure slots available on the weekend. After IUI: take a home test 14-17 days after IUI (even if you bleed) and call the office with updates. If you are , we will order blood tests, schedule a Virtual Visit and perform an ultrasound before you graduate from our department. If you get your period and want to do another IUI: Call the front desk worker to make sure you are financially cleared. Ask to speak to an NELLY to confirm your treatment plan. Important phone number: [phone] documented in this encounter [facility] 06-08-2023 Note HNO ID: [id number] Author: RAHUL ZHENG MD Service: ? Author Type: Physician Type: Progress Notes Filed: 06/08/2023 10:50 Note Text: REPRODUCTIVE ENDOCRINOLOGY AND INFERTILITY NEW PATIENT CLINIC NOTE SERVICE DATE: 06/08/2023 SERVICE TIME: 10:01 AM NAME: Nelli Carpenter This is a new consult. It required patient-provider interaction for the medical decision making as documented below. I have communicated my name and active licensure. The patient's identity and physical location were verified at the time of this visit. Either the patient or their legal small business sales representative has been informed of the risks and benefits of -- and alternatives to -- treatment through a remote evaluation and consents to proceed with the evaluation remotely. REFERRED BY: Consultation requested by self-referral for an opinion regarding fertility. My final recommendations will be communicated back to the requesting physician by way of shared Medical record or letter to requesting physician via [place] mail. No referring provider defined for this encounter. CHIEF COMPLAINT: Procreative management and counseling HISTORY OF PRESENT ILLNESS Nelli Carpenter is a 32 year old female who wishes to discuss donor insemination. The patient had a previous male partner for which she had 3 pregnancies the first was delivered normally in 2014 followed by a miscarriage in 2016 and a section in 2017 [facility] with. The was because of placenta previa at 37 weeks. She had no postoperative complications. After her delivery she had an IUD which had to be removed by hysteroscopy. She is otherwise healthy except for abnormal weight gain for which she has been prescribed Wegovy. She is a non-smoker. PLATER BARREL HISTORY: Menarche: 13 Cycle Length: 28-30 Regular Days: 7 Menstrual Flow: Moderate,Heavy Symptoms: Breast Tenderness,Mood Changes,Bloating,Cramping Patient's last menstrual period was 06/04/2012 (exact date). Hx STIs: yes Dyspareunia: no LABS/IMAGING: Not recently PAST MEDICAL HISTORY Diagnosis Date Asthma Encounter for IUD insertion 04/30/2012 Mirena GERD (gastroesophageal reflux disease) PAST SURGICAL HISTORY Procedure Laterality Date DELIVERY ONLY EXTRACTION ERUPTED TOOTH/EXR PAST SURGICAL HISTORY OF 10/2015 DANDC (8 weeks) FAMILY HISTORY Problem Relation Age of Onset other (daibetes [Other]) Maternal Grandmother Social History Tobacco Use Smoking status: Never Smokeless tobacco: Never Substance Use Topics Alcohol use: Yes Comment: social Drug use: No Current Outpatient Medications Medication Sig vit/iron fum/folic ac ( 1 + 1 ORAL) Take by mouth. mv-min/iron/folic/calcium/vitK (WOMEN'S MULTIVITAMIN ORAL) Take by mouth. BIOTIN ORAL Take by mouth once daily. (Patient not taking: Reported on 06/08/2023) levonorgestrel (MIRENA) 20 mcg/24 hr IUD 1 Each by INTRAUTERINE route one time only. (Patient not taking: Reported on 06/08/2023) No current facility-administered medications for this visit. 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 ?: Yes Years together: 3 Do they have children together?: No Any other Previous Pregnancies?: No Smoking History: Never Use of alchol: occassional Use of Drugs: no Medications: no ASSESSMENT AND PLAN Nelli Carpenter is a 32 year old female Procreative management counseling (primary encounter diagnosis) Bmi 34.0-34.9,adult proceed to donor IUI I spent a total of 20 minutes on the date of the service which included preparing to see the patient, [id number] patient care, completing clinical documentation, obtaining and/or reviewing separately obtained history, and ordering medications, tests, or procedures Rahul Zheng MD . [facility] 06-08-2023 History of Presen t illness Narrative REPRODUCTIVE ENDOCRINOLOGY AND INFERTILITY NEW PATIENT CLINIC NOTE SERVICE DATE: 06/08/2023 SERVICE TIME: 10:01 AM NAME: Nelli Carpenter This is a new consult. It required patient-provider interaction for the medical decision making as documented below. I have communicated my name and active licensure. The patient's identity and physical location were verified at the time of this visit. Either the patient or their legal small business sales representative has been informed of the risks and benefits of -- and alternatives to -- treatment through a remote evaluation and consents to proceed with the evaluation remotely. REFERRED BY: Consultation requested by self-referral for an opinion regarding fertility. My final recommendations will be communicated back to the requesting physician by way of shared Medical record or letter to requesting physician via [place] mail. No referring provider defined for this encounter. CHIEF COMPLAINT: Procreative management and counseling HISTORY OF PRESENT ILLNESS Nelli Carpenter is a 32 year old female who wishes to discuss donor insemination. The patient had a previous male partner for which she had 3 pregnancies the first was delivered normally in 2014 followed by a miscarriage in 2016 and a section in 2017 [place] with. The was because of placenta previa at 37 weeks. She had no postoperative complications. After her delivery she had an IUD which had to be removed by hysteroscopy. She is otherwise healthy except for abnormal weight gain for which she has been prescribed Wegovy. She is a non-smoker. PLATER BARREL HISTORY: Menarche: 13 Cycle Length: 28-30 Regular Days: 7 Menstrual Flow: Moderate,Heavy Symptoms: Breast Tenderness,Mood Changes,Bloating,Cramping Patient's last menstrual period was 06/04/2012 (exact date). Hx STIs: yes Dyspareunia: no LABS/IMAGING: Not recently PAST MEDICAL HISTORY Diagnosis Date Asthma Encounter for IUD insertion 04/30/2012 Mirena GERD (gastroesophageal reflux disease) PAST SURGICAL HISTORY Procedure Laterality Date DELIVERY ONLY EXTRACTION ERUPTED TOOTH/EXR PAST SURGICAL HISTORY OF 10/2015 D&C (8 weeks) FAMILY HISTORY Problem Relation Age of Onset other (daibetes [Other]) Maternal Grandmother Social History Tobacco Use Smoking status: Never Smokeless tobacco: Never Substance Use Topics Alcohol use: Yes Comment: social Drug use: No Current Outpatient Medications Medication Sig vit/iron fum/folic ac ( 1 + 1 ORAL) Take by mouth. mv-min/iron/folic/calcium/vitK (WOMEN'S MULTIVITAMIN ORAL) Take by mouth. BIOTIN ORAL Take by mouth once daily. (Patient not taking: Reported on 06/08/2023) levonorgestrel (MIRENA) 20 mcg/24 hr IUD 1 Each by INTRAUTERINE route one time only. (Patient not taking: Reported on 06/08/2023) No current facility-administered medications for this visit. 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 ?: Yes Years together: 3 Do they have children together?: No Any other Previous Pregnancies?: No Smoking History: Never Use of alchol: occassional Use of Drugs: no Medications: no ASSESSMENT AND PLAN Nelli Carpenter is a 32 year old female Procreative management counseling (primary encounter diagnosis) Bmi 34.0-34.9,adult proceed to donor IUI I spent a total of 20 minutes on the date of the service which included preparing to see the patient, [id number] patient care, completing clinical documentation, obtaining and/or reviewing separately obtained history, and ordering medications, tests, or procedures Rahul Zheng MD . documented in this encounter [facility] 03-16-2023 Hospital Discharg e instructions Patient Education 03/16/2023 16:12:49 Wrist Pain, Adult, [id number] Wrist Pain, Adult There are many things that can cause wrist pain. Some common causes include: An injury to the wrist. Using the joint too much. A condition that causes too much pressure to be put on a nerve in the wrist (carpal tunnel syndrome). Wear and tear of the joints that happens as a person gets older (osteoarthritis). A condition that causes swelling and stiffness in the joints (arthritis). Sometimes, the cause of wrist pain is not known. Often, the pain goes away when you follow your doctor's instructions for easing pain at home. This may include resting your wrist, icing your wrist, or using a splint or an elastic wrap for a short time. It is important to tell your doctor if your wrist pain does not go away. Follow these instructions at home: If you have a splint or elastic wrap: Wear the splint or wrap as told by your doctor. Take it off only as told by your doctor. Ask if you can take it off for bathing. Loosen the splint or wrap if your fingers: ?Tingle. ?Become numb. ?Turn cold and blue. Check the skin around the splint or wrap every day. Tell your doctor about any concerns. Keep the splint or wrap clean. If the splint or wrap is not waterproof: ?Do not let it get wet. ?Cover it with a watertight covering when you take a bath or shower. Managing pain, stiffness, and swelling If told, put ice on the painful area. To do this: ?If you have a removable splint or wrap, take it off as told by your doctor. ?Put ice in a plastic bag. ?Place a towel between your skin and the bag or between your splint or wrap and the bag. ?Leave the ice on for 20 minutes, 2 3 times a day. Move your fingers often. Raise (elevate) the injured area above the level of your heart while you are sitting or lying down. Activity Rest your wrist as told by your doctor. Return to your normal activities as told by your doctor. Ask your doctor what activities are safe for you. Ask your doctor when it is safe to drive if you have a splint or wrap on your wrist. Do exercises as told by your doctor. General instructions Pay attention to any changes in your symptoms. Take [id number] and prescription medicines only as told by your doctor. Keep all follow-up visits as told by your doctor. This is important. Contact a doctor if: You have a sudden, sharp pain in the wrist, hand, or arm that is different or new. The swelling or bruising on your wrist or hand gets worse. Your skin: ?Becomes red. ?Gets a rash. ?Has open sores. Your pain does not get better. Your pain gets worse. You have a fever or chills. Get help right away if: You lose feeling in your fingers or hand. Your fingers turn white, very red, or cold and blue. You cannot move your fingers. Summary There are many things that can cause wrist pain. It is important to tell your doctor if your wrist pain does not go away. You may need to wear a splint or a wrap for a short period of time. Return to your normal activities as told by your doctor. Ask your doctor what activities are safe for you. This information is not intended to replace advice given to you by your health care provider. Make sure you discuss any questions you have with your health care provider. Document Revised: 02/02/2020 Document Reviewed: 02/02/2020 [employer] Patient Education 2022 [employer] [facility] Evaluation + Plan note No data available for this section [facility] Evaluation note Diagnosis Procreative management counseling- Primary Other procreative management counseling and advice BMI 34.0-34.9,adult Body Mass Index 34.0-34.9, adult documented in this encounter [facility] note* Diagnosis Encounter for fertility planning- Primary Other specified procreative management Encounter for other genetic testing of female for procreative management documented in this encounter [facility] note* Diagnosis Treatment plan provided- Primary documented in this encounter [facility] note* Diagnosis Encounter for fertility planning- Primary Other specified procreative management documented in this encounter [facility] note* Diagnosis Procreation management investigation and testing- Primary Other investigation and testing for procreative management documented in this encounter [facility] note* Diagnosis Female infertility- Primary Female infertility of unspecified origin documented in this encounter [facility] note* Diagnosis Reproductive mgmt, infertility due to male factor- Primary Female infertility of other specified origin documented in this encounter [facility] note* Diagnosis Procreative management- Primary Unspecified procreative management documented in this encounter [facility] note* Diagnosis Female infertility- Primary Female infertility of unspecified origin documented in this encounter [facility] note* Diagnosis Encounter for artificial insemination- Primary Artificial insemination documented in this encounter [facility] note* Diagnosis Encounter for test, result positive- Primary examination or test, positive result documented in this encounter [facility] note* Diagnosis resulting from assisted reproductive technology in first trimester- Primary documented in this encounter [facility] note* Diagnosis resulting from assisted reproductive technology in first trimester documented in this encounter [facility] note* Diagnosis Treatment plan provided- Primary documented in this encounter [facility] note* Diagnosis Missed menses , unspecified gestational age Encounter for supervision of normal first in first trimester [facility] Infertility, female- Primary BMI 37.0-37.9, adult Morbid obesity (CMS/HCC) Morbid obesity documented in this encounter [facility] No data available for this section [facility] No data available for this section [facility] Reason for referral (narrative)* Diagnostic Procedure Only (Routine) - Open Specialty Diagnoses / Procedures Referred By Contac t Referred To Contact [facility] Diagnoses resulting from assisted reproductive technology in first trimester Procedures OBSTETRIC ULTRASOUND WHI US PREG UTERUS AFTER 1ST TRIMEST GESTATION Andressa Abraham APRN.CNP [address] [place] [address] [facility] [address] [place] [address] Referral ID Status Reason Start Date Expiration Date V isits Requested Visits Authorized [id number] Open Auto-Generate d Referral 01/20/2024 01/19/2025 1 1 [facility] for visit Narrative* Diagnostic Procedure Only (Routine) - Closed Specialty Diagnoses / Procedures Referred By Contac t Referred To Contact [facility] Diagnoses resulting from assisted reproductive technology in first trimester Procedures OBSTETRIC ULTRASOUND WHI US PREG UTERUS AFTER 1ST TRIMEST GESTATION Andressa Abraham APRN.REHABILITATION WORKER [address] [place] [id number] [facility] [address] [place] [address] Referral ID Status Reason Start Date Expiration Date V isits Requested Visits Authorized [id number] Closed Auto-Generate d Referral 01/27/2024 03/29/2024 1 1 [facility] Summary Purpose Family History No Family History Records FoundNo Family History Records FoundNo Family History Records FoundNo Family History Records Found No data available for this section No data available for this section No Family History Records Found No data available for this section No Family History Records FoundNo Family History Records Found Advance Directives No Advanced Directives Records FoundNo Advanced Directives Records FoundNo Advanced Directives Records FoundNo Advanced Directives Records FoundNo Advanced Directives Records FoundNo Advanced Directives Records FoundNo Advanced Directives Records Found Reason for Referral Specialty Diagnoses / Procedures Referred By Contac t Referred To Contact Obstetrics and Gynecology Diagnoses Infertility, female Procedures SD OFFICE/OUTPATIENT NEW HIGH MDM 60 MINUTES Karen Bolanos MD [address] [place] [address] Patsy Blanco, DO [address] [facility] [address] [facility] [address] Referral ID Status Reason Start Date Expiration Date Visits Requested Visits Authorized [id number] Pending Review Specialty Services Required 12/28/2023 06/25/2024 1 1 Additional Source Comments INFORMATION SOURCE (unrecogn ized section and content) DATE CREATED AUTHOR 09/21/2017 [facility] DATE CREATED AUTHOR AUTHOR'S ORGANIZ ATION 03/12/2021 [facility] DATE CREATED AUTHOR AUTHOR'S ORGANIZ ATION 03/16/2021 [facility] DATE CREATED AUTHOR AUTHOR'S ORGANIZ ATION 03/26/2022 [facility] DATE CREATED AUTHOR AUTHOR'S ORGANIZ ATION 02/15/2024 [facility] DATE CREATED AUTHOR AUTHOR'S ORGANIZ ATION 02/29/2024 [facility] DATE CREATED AUTHOR AUTHOR'S ORGANIZ ATION 03/13/2024 [facility] EPIC <item> Privacy Markings (unrecogniz ed section and content) Section Author: Smita Tello PROHIBITION ON REDISCLOSURE OF CONFIDENTIAL INFORMATION This notice accompanies a disclosure of information concerning a client made to you with the consent of such client. Patient Care team informatio n (unrecognized section and content) Corporate Concierge Relationship Specialty Start Date End Date Karen Bolanos MD [address] [place] [address] PCP - General Family Medicine 11/10/22 Karen Bolanos MD [address] [place] [address] PCP - [employer] 12/28/22 Corporate Concierge Relationship Specialty Start Date End Date Karen Bolanos MD [address] [place] [address] PCP - General Family Medicine 11/10/22 Karen Bolanos MD [address] [place] [address] PCP - [employer] 12/28/22 Corporate Concierge Relationship Specialty Start Date End Date Karen Bolanos MD [address] [place] [address] PCP - General Family Medicine 11/10/22 Corporate Concierge Relationship Specialty Start Date End Date Karen Bolanos MD [address] [place] [address] PCP - General Family Medicine 11/10/22 Source Comments (unrecognize d section and content) In the event this informatio n is protected by the Federal Confidentiality of Alcohol and Drug Abuse Patient Records regulations: The Federal rules restrict any use of the information to criminally investigate or prosecute any alcohol or drug abuse patient.[facility] the event this information is protected by the Federal Confidentiality of Alcohol and Drug Abuse Patient Records regulations: The Federal rules restrict any use of the information to criminally investigate or prosecute any alcohol or drug abuse patient.[facility] the event this information is protected by the Federal Confidentiality of Alcohol and Drug Abuse Patient Records regulations: The Federal rules restrict any use of the information to criminally investigate or prosecute any alcohol or drug abuse patient.[facility] the event this information is protected by the Federal Confidentiality of Alcohol and Drug Abuse Patient Records regulations: The Federal rules restrict any use of the information to criminally investigate or prosecute any alcohol or drug abuse patient.[facility] the event this information is protected by the Federal Confidentiality of Alcohol and Drug Abuse Patient Records regulations: The Federal rules restrict any use of the information to criminally investigate or prosecute any alcohol or drug abuse patient.[facility] the event this information is protected by the Federal Confidentiality of Alcohol and Drug Abuse Patient Records regulations: The Federal rules restrict any use of the information to criminally investigate or prosecute any alcohol or drug abuse patient.[facility] the event this information is protected by the Federal Confidentiality of Alcohol and Drug Abuse Patient Records regulations: The Federal rules restrict any use of the information to criminally investigate or prosecute any alcohol or drug abuse patient.[facility] the event this information is protected by the Federal Confidentiality of Alcohol and Drug Abuse Patient Records regulations: The Federal rules restrict any use of the information to criminally investigate or prosecute any alcohol or drug abuse patient.[facility] the event this information is protected by the Federal Confidentiality of Alcohol and Drug Abuse Patient Records regulations: The Federal rules restrict any use of the information to criminally investigate or prosecute any alcohol or drug abuse patient.[facility] Hospital[facility] the event this information is protected by the Federal Confidentiality of Alcohol and Drug Abuse Patient Records regulations: The Federal rules restrict any use of the information to criminally investigate or prosecute any alcohol or drug abuse patient.[facility] Hospital[facility] the event this information is protected by the Federal Confidentiality of Alcohol and Drug Abuse Patient Records regulations: The Federal rules restrict any use of the information to criminally investigate or prosecute any alcohol or drug abuse patient.[facility] Hospital[facility] the event this information is protected by the Federal Confidentiality of Alcohol and Drug Abuse Patient Records regulations: The Federal rules restrict any use of the information to criminally investigate or prosecute any alcohol or drug abuse patient.[facility] Hospital[facility] the event this information is protected by the Federal Confidentiality of Alcohol and Drug Abuse Patient Records regulations: The Federal rules restrict any use of the information to criminally investigate or prosecute any alcohol or drug abuse patient.[facility] Hospital[facility] the event this information is protected by the Federal Confidentiality of Alcohol and Drug Abuse Patient Records regulations: The Federal rules restrict any use of the information to criminally investigate or prosecute any alcohol or drug abuse patient.[facility] Hospital[facility] the event this information is protected by the Federal Confidentiality of Alcohol and Drug Abuse Patient Records regulations: The Federal rules restrict any use of the information to criminally investigate or prosecute any alcohol or drug abuse patient.[facility] HospitalIn the event this information is protected by the Federal Confidentiality of Alcohol and Drug Abuse Patient Records regulations: The Federal rules restrict any use of the information to criminally investigate or prosecute any alcohol or drug abuse patient.[facility] Hospital[facility] the event this information is protected by the Federal Confidentiality of Alcohol and Drug Abuse Patient Records regulations: The Federal rules restrict any use of the information to criminally investigate or prosecute any alcohol or drug abuse patient.[facility] Reason for Visit (unrecogniz ed section and content) Reason Comments Consult Reason Comments donor sperm teach Reason Comments Lila bloodwork completed today Reason Comments +ovulation test Thu& d14 & 15 partne r calling Reason Comments Treatment Planning Specialty Diagnoses / Procedures Referred By Jose L alcocer Referred To Contact [facility] Diagnoses Encounter for procreative management, unspecified Encounter for other procreative management Procedures THAWING CRYOPRESERVED SPERM/SEMEN EACH ALIQUOT ARTIFIC INSEMINATION INTRAUTERIN Andressa Abraham APRN.REHABILITATION WORKER [address] [place] [address] [facility] [address] [place] [address] Referral ID Status Reason Start Date Expiration Date V isits Requested Visits Authorized [id number] Closed Financial Clearance Required - Self Pay Patient Cleared - True Self-Pay required payment collected Do Not Bill Insurance - SP patient 12/04/2023 03/03/2024 2 2 Specialty Diagnoses / Procedures Referred By Jose L alcocer Referred To Contact [facility] Diagnoses Encounter for other procreative management Encounter for procreative management, unspecified Procedures ARTIFIC INSEMINATION INTRAUTERIN THAWING CRYOPRESERVED SPERM/SEMEN EACH ALIQUOT Andressa Abraham APRN.REHABILITATION WORKER [address] [place], [place] [id number] [facility] [address] [place] [address] Referral ID Status Reason Start Date Expiration Date V isits Requested Visits Authorized [id number] Closed Patient Cleared - True Self-Pay required payment collected 12/30/2023 03/29/2024 2 2 Reason Comments +hpt 01/15 after an iui Reason Comments Reason Comments Amenorrhea Reason Comments Immunizations Patient declines at this time. FOR RECORDS PERTAINING TO PATIENTS WHO ARE OR HAVE BEEN ENROLLED IN A CHEMICAL DEPENDENCY/SUBSTANCEABUSE PROGRAM, SOME INFORMATION MAY BE OMITTED. This clinical summary was aggregated from multiple sources. Caution should be exercised in using it in the provision of clinical care. This summary normalizes information from multiple sources, and as a consequence, information in this document may materially change the coding, format and clinical context of patient data. In addition, data may be omitted in some cases. CLINICAL DECISIONS SHOULD BE BASED ON THE PRIMARY CLINICAL RECORDS. [facility] [employer] [facility]. provides no warranty or guarantee of the accuracy or completeness of information in this document.
--- OUTSIDE RECORDS SUMMARY | 2024-04-20 09:42 | XMS_ITS | CCD ---
Author Organization [facility] Care Team Providers Care Layer Out Plate Glass Name Role Phone BACEVICE, CHARLIE E Unavailable [...] day(s), # 240 mL, Refills(s) 0, Pharmacy: [facility] #[id number], 158, cm, 02/28/24 9:01:00 EST, Height/Length Dosing, [...] oral solution (1 source) alpha-Adrenergic Agonist, Uncompetitive N-zzloaz-O-aspartate Receptor Antagonist, Sigma-1 Agonist Start: End: take 5 mL by mouth every four to six hours brompheniramine/pse udoephedrine/dextro methorphan 1sr-06yp-09ku/5 mL oral syrup ; 5 milliliter(s) orally [...] 0 Start Date: 05/29/12 Status: Ordered levonorgestrel 0.996496 mg/hr intrauterine system (14 sources) Progestin, Progestin-containi [...] WITH AUTO DIFFon BASOPHILS ABSOLUTE AUTO [address] [facility] Basophils/100 WBC (Bld) 0.4 % 0.2 - 2.0 % [facility] Eosinophils/100 WBC (Bld) 0.9 % 0.9 - 7.0 % [facility] Erythrocyte distribution width (RBC) [Ratio] 13.1 % 11.0 - 15.0 % [facility] Hematocrit (Bld) [Volume fraction] 36.9 % 36.0 - 48.0 % [facility] Hemoglobin (Bld) [Mass/Vol] 12.3 g/dL 12.0 - 16.0 g/dL [facility] IMMATURE GRANULOCYTES ABS AUTO 0.[address] [facility] Immature granulocytes/100 WBC (Bld) 1 % High 0.0 - 0.5 % [facility] Interpretation and review of laboratory results Abnormal [facility] LYMPHOCYTES ABSOLUTE AUTO 1.[address] [facility] Lymphocytes/100 WBC (Bld) 25.9 % 20.5 - 60.0 % [facility] MCH (RBC) [Entitic mass] 29.9 pg 26.7 - 34.[address] [facility] MCHC (RBC) [Mass/Vol] 33.3 g/dL 29.9 - 35.2 g/dL [facility] MCV (RBC) [Entitic vol] 89.6 fL 81.0 - 99.[address] [facility] MONOCYTES ABSOLUTE AUTO 0.[address] [facility] Monocytes/100 WBC (Bld) 6.4 % 1.7 - 12.0 % [facility] NEUTROPHILS ABSOLUTE AUTO 4.[address] [facility] Neutrophils/100 WBC (Bld) 65.4 % 43.0 - 75.0 % [facility] Platelet mean volume (Bld) [Entitic vol] 12 fL 9.5 - 13.[address] [facility] TBH EO # 0.[address] [facility] TB PLT [facility] RBC 4.12 [facility] WBC [address] [facility] HCG ( test) Ql (U)o n 03-11-2024 Interpretation and review of laboratory results Abnormal [facility] Preg Test, Ur Positive Negative [facility] Urinalysis macro (dipstick) panel (U)on 03-11-2024 Bilirubin, UA Negative Negative - 4(7 0) +++ mg/dL [facility] Blood, UA Negative Negative - 50 Mukesh/mcL [facility] Clarity, UA Clear [facility] Color, UA Yellow [facility] Glucose, UA Negative Negative - 1999(110) ++++ mg/dL [facility] Interpretation and review of laboratory results Normal [facility] Ketones, UA Negative Negative - 160(16) ++++ mg/dL [facility] Leukocytes, UA Negative Negative - 50 0+++ Shannon/mcL [facility] Nitrite, UA Negative Negative - Positive [facility] pH, UA 7 5 - [address] [facility] Protein, UA Negative Negative - 1999(20) ++++ mg/dL [facility] Spec Grav, UA 1.02 1 - 1.[address] [facility] Urobilinogen, UA 0.2 0.2 - 12 mg/dL [facility] Ambulatory Visit Summaryon 1 04-30-2023 Ambulatory Visit [...] with effusion Duration: 10 Days Pickup at [facility] #[id number] Pharmacy Information [facility] #[id number]: [address], [place] [id number] [phone] Allergies No Known Allergies Problems Ongoing - [...] for choosing us for your care. Normal [facility] Family Medicine Office/Clini c Noteon 02-28-2024 Family Medicine Office/Clinic Note Family Medicine Office/Clinic Note Chief Complaint ear pain, cough, sore throat HPI Staff 33 year old female presents with bilateral ear pain- right is worse, cough, sore throat, mild head pressure, congestion symptoms began yesterday pt it 10 weeks History of Present Illness Reviewed and agree with above documented HPI by certified medical technician. Portions of this record may have been created with voice recognition artificial intelligence software, specifically [employer], [employer] and or [employer]. Substitutions may have occurred due to the inherent limitations of voice recognition and artificial intelligence software. Patient is a 33-year-old female who presents to [facility] care, for right ear pain, sinus [...] at this time. 33-year-old female presented to [facility] care, for right otitis media effusion, [...] for amoxicillin, instructed she can only take agxz-nky-ctjgcsl Tylenol for body aches, headaches, and fevers since she is . Given a work excuse note. Follow-up with primary care provider as needed. 1. Right otitis media with effusion (H65.91: Unspecified nonsuppurative otitis media, right ear) See above Ordered: amoxicillin, 960 mg = 12 mL, Oral, q12hr, X 10 day(s), # 240 mL, Refills(s) 0, Pharmacy: [facility] #[id number], 158, cm, 02/28/24 9:01:00 EST, Height/Length Dosing, [...] management wi (more content not included)... Normal [facility] Comment on above: Result Comment: Elec tronically Signed By: TIARRA KATZ PA-C\.br\Date and Time Signed: 02/28/24 09:58 EST [facility] Patient Letter [facility] [address] [place] [address] February 28, 2024 NELLI CARPENTER [address] [place] [address] : 1990 Please excuse NELLI CARPENTER from work . Date and/or Time of Absence: From: 02/29/24 May return to work on: 03/01/24 Restrictions: None Comments: Please excuse due to an acute illness. Provider Signature: Tiarra Katz PA-C [address] [place] [address] [place] [address] [facility] CNNURSEon 02-09-2024 CNNURSE Nurse Visit (REIAV) NELLI CARPENTER ([id number]) 1990 F Date Time Provider Department 02/09/24 10:30 AM NURSE [facility] During your visit today, we recorded the following information about you: Parth Clark MD 02/09/2024 11:28 AM Signed Scan Visit Patient here for scan. See imaging documentation. MD Diego Bajwa Lauren, PRIMARY CLASS TEACHER.PANEL LAY UP WORKER 02/09/2024 12:28 PM Signed Nelli Carpenter [...] Plan Move on to OB Vidhya Pitt APRN.PANEL LAY UP WORKER February 09, 2024 12:27 PM Referring Provider: ANDRESSA ABRAHAM [[id number]] Allergies As of Date: 02/09/2024 (No Known Allergies) Date Reviewed: 01/20/2024 Reviewed by: Andressa Abraham APRN.PANEL LAY UP WORKER - Fully Assessed Visit Diagnosis: resulting from assisted reproductive technology in first trimester [O09.811] Order(s):OBSTETRIC ULTRASOUND [facility] [[id number]] Order #: [id number]. #:[id number] EWPOINTQty: 1 Prescriptions as of 02/09/2024 - vit/iron fum/folic ac ( 1 + 1 ORAL) Take by mouth. - mv-min/iron/folic/calc ium/vitK (WOMEN'S MULTIVITAMIN ORAL) Take by mouth. Problem List As Of Date: 02/09/2024 (None) Encounter Status:Closed by PARTH CLARK on 02/09/[address] [facility] Examination level ultrasound on 02-09-2024 Indication Viability; IUI done on 01-02-24; obesity >30 Impression - Single, live, intrauterine . - An intrauterine gestational sac with a yolk sac and pole is present. - [place] rump length measurement is consistent with the [...] Read By: Parth Clark M.D. MATERNAL MEDICINE [facility] Radiology Study observation (narrative) [facility] B-HCG [facility] 4 HCG.beta subunit Qn 2270.0 m[IU]/mL High <5.[address] [facility] Comment on above: Order Comment: Speci men Type: BLOOD SPECIMEN Ordering Facility: [facility] Address: [address] [place], [place] [address] Result Comment: NOBLE TITATIVE HCG NORMAL RANGES Weeks of Gestation (Weeks Since LMP) 3 Weeks (5.8-71.2 mIU/mL) 4 Weeks (9.5-750 mIU/mL) 5 Weeks (217-7138 mIU/mL) 6 Weeks (158-11125 mIU/mL) 7 Weeks (3697-194796 mIU/mL) 8 Weeks (21427-515895 mIU/mL) 9 Weeks (80525-524261 mIU/mL) 10 Weeks (37268-537423 mIU/mL) 12 Weeks (33661-992063 mIU/mL) Referenced to 4th IS of [facility] Performed By: #### 7 3752-8, 5195-3, 52878-7, 59355-2 #### [facility] CLIA [id number] [address] [place] [address] [place] B-HCG SerPl-aCncon 4 HCG.beta subunit Qn 792.1 m[IU]/mL High <5.[address] [facility] Comment on above: Order Comment: Speci men Type: BLOOD SPECIMEN Ordering Facility: [facility] Address: [address] [place] [address] Result Comment: NOBLE TITATIVE HCG NORMAL RANGES Weeks of Gestation (Weeks Since LMP) 3 Weeks (5.8-71.2 mIU/mL) 4 Weeks (9.5-750 mIU/mL) 5 Weeks (217-7138 mIU/mL) 6 Weeks (158-46943 mIU/mL) 7 Weeks (3697-154539 mIU/mL) 8 Weeks (00248-532803 mIU/mL) 9 Weeks (46046-325708 mIU/mL) 10 Weeks (90409-145014 mIU/mL) 12 Weeks (88065-196736 mIU/mL) Referenced to 4th IS of [facility] Performed By: #### 7 3752-8, 5195-3, 48784-3, 14676-4 #### [facility] CLIA [id number] [address] [place] [address] [place] CNPNila 01-18-2024 LEXUSN Telephone (REIBD) NELLI CARPENTER ([id number]) 1990 F Date Time Provider Department 01/18/24 [...] positive [Z32.01] Order(s):HCG QUANTITATIVE [SQHCGQT] Order #: [id number] STANDING Prescriptions as of 01/18/2024 - vit/iron [...] Encounter Status:Closed by JESSI YOO on 01/18/24 [facility] CNOVon 01-02-2024 CNOV Office Visit (REIBD) NELLI CARPENTER ([id number]) 1990 F Date Time Provider Department 01/02/24 [...] Cycle Day: 15 Last menstrual period: 12/19/2023 [place] Protocol: UNIVERSAL PROTOCOL / SAFETY CHECKLIST Procedure [...] discussed with the Patient or Patient's Authorized Hvac Tech. As applicable, any other physician, advance practice provider, medical student, or other health professional student that will be observing or involved in the sensitive examination for educational or training purposes was discussed with the Patient or Authorized Hvac Tech. The Patient or Authorized Hvac Tech has agreed to proceed with the sensitive examination. (Sensitive examination includes inspection and/or palpation of the breasts, pelvis, prostate and anorectal regions) Patient declined ground equipment mechanic. IUI IUI Date: 01/02/24 Partner's Name: Wanda [...] 01/02/2024 11:46 AM Signed IUI Xytex #: [id number] Washed frozen specimen Post: 122 m/ml, 63% Insem#: 34.7 million Referring Provider: ANDRESSA ABRAHAM [[id number]] Allergies As of Date: 01/02/2024 (No Known Allergies) Date Reviewed: 11/23/2023 Reviewed by: Andressa Abraham, PRIMARY CLASS TEACHER.PANEL LAY UP WORKER - Fully Assessed Primary Visit Diagnosis:Encounter [...] Status:Closed by ANYI GANT on 01/02/[address] [facility] CNOV Office Visit (ANDRBE ) NELLI CARPENTER ([id number]) 1990 F Date Time Provider Department 01/02/24 10:30 AM ANDROLOGY MOLDING SUPERVISOR [facility] During your visit today, we recorded the following information about you: Flavia Elizondo 01/02/2024 11:47 AM Signed Thaw for IUI Flavia Elizondo Referring Provider: ANDRESSA ABRAHAM [[id number]] Allergies As of Date: 01/02/2024 (No Known Allergies) Date Reviewed: 11/23/2023 Reviewed by: Andressa Abraham APRN.PANEL LAY UP WORKER - Fully Assessed Primary Visit Diagnosis:Procreative [...] Status:Closed by FLAVIA ELIZONDO on 01/02/[address] [facility] CNOVon 12-05-2023 CNOV Office Visit (REIBD) NELLI CARPENTER ([id number]) 1990 F Date Time Provider Department 12/05/23 [...] Cycle Day: 15 Last menstrual period: 11/21/2023 [place] Protocol: UNIVERSAL PROTOCOL / SAFETY CHECKLIST Procedure [...] EMERGENT procedures): No specimen collected. Patient declined ground equipment mechanic. Uma Aguilear MD IUI IUI Date: 12/05/23 Partner's Name: [...] after wash): 49 million Donor ID #: [id number] Cycle reviewed, all questions answered. Pt instructed to take a test in 17 days if no menses and call with results. SIGNATURE: Uma Aguilera MD PATIENT NAME: Nelli Carpenter DATE: December 05, 2023 TIME: 10:31 AM I was present and immediately available for the entire procedure. Patient underwent an intrauterine insemination. Myriam Dominguez MD, Stephanie Barnett 12/06/2023 8:45 AM Signed IUI [facility] #[id number] Frozen washed specimen Post: 145 Million/mL, 68% Insem #: 49 Million Referring Provider: ANDRESSA ABRAHAM [[id number]] Allergies As of Date: 12/05/2023 (No Known Allergies) Date Reviewed: 11/23/2023 Reviewed by: Andressa Abraham, PRIMARY CLASS TEACHER.PANEL LAY UP WORKER - Fully Assessed Primary Visit Diagnosis:Female [...] Status:Closed by MYRIAM DOMINGUEZ on 12/06/[address] [facility] CN Office Visit (ANDRBE ) NELLI CARPENTER ([id number]) 1990 F Date Time Provider Department 12/05/23 9:30 AM ANDROLOGY MOLDING SUPERVISOR ANDE During your visit today, we recorded the following information about you: Stephanie Lara 12/05/2023 10:23 AM Signed Thaw for IUI Stephanie Lara Referring Provider: ANDRESSA ABRAHAM [[id number]] Allergies As of Date: 12/05/2023 (No Known [...] Status:Closed by STEPHANIE LARA on 12/05/[address] [facility] [id number] 11-23-2023 HNO ID: [id number] Author: ANDRESSA ABRAHAM APRN.CNP Service: ? Author [...] Comments: None Andressa Abraham APRN.CNP 11/23/[address] [facility] Progesterone [Mass/Vol] 7.4 ng/mL Normal See comment [facility] Comment on above: Order Comment: Speci men Type: BLOOD SPECIMEN Ordering Facility: [facility] Address: [address] [place] [address] Result Comment: Mens trual Cycle Progesterone Reference Ranges: Follicular: <1.0 ng/mL Ovulation: <12.1 ng/mL Luteal: 1.8 to 23.9 ng/mL. Progesterone Reference Ranges vary by gestational period: First Trimester: 11.0 to 44.3 ng/mL Second Trimester: 25.4 to 83.3 ng/mL Third Trimester: 58.7 to 214 ng/mL Post menopausal Progesterone: <0.5 ng/mL Reference: 1. Progesterone (Progesterone III) [package insert V 1.0 Guamanian]. [facility], [place], [place]. December 2014. Performed By: #### 7 3752-8, 5195-3, 36713-5, 68856-0 #### [facility] CLIA [id number] [address] [place] [address] CNPNila 10-12-2023 CNPN Telephone (REIBD) NELLI CARPENTER ([id number]) 1990 F Date Time Provider Department 10/12/23 [...] Date Reviewed: 09/11/2023 Reviewed by: Andressa Abraham, PRIMARY CLASS TEACHER.PANEL LAY UP WORKER - Fully Assessed Reason for Visit: +ovulation test SatANDSund d14 AND 15 partner calling [Other] Primary Visit Diagnosis:Female infertility [N97.9] Order(s):PROGESTERONE [SQPROG] Order #: [id number] FUTURE Prescriptions as of 10/12/2023 - vit/iron fum/folic ac ( 1 + 1 ORAL) Take by mouth. - mv-min/iron/folic/calc ium/vitK (WOMEN'S MULTIVITAMIN ORAL) Take by mouth. - BIOTIN ORAL Take by mouth once daily. - levonorgestrel (MIRENA) 20 mcg/24 hr IUD 1 Each by INTRAUTERINE route one time only. Problem List As Of Date: 10/12/2023 (None) Encounter Status:Closed by JESSI YOO on 10/12/23 [facility] CNOVon 09-11-2023 CNOV Office Visit (REIBD) NELLI CARPENTER ([id number]) 1990 F Date Time Provider Department 09/11/23 8:00 AM ANDRESSA ABRAHAM During your visit today, we recorded the following information about you: Andressa Abraham APRN.[facility] 09/15/2023 4:56 PM Signed REPRODUCTIVE ENDOCRINOLOGY [...] favorite donors - send to me via [employer] to confirm Confirmed best vial type to order: IUI/prewashed Will need to follow up to firm up treatment plan and review IUI scheduling instructions. Andressa Abraham APRN.PANEL LAY UP WORKER September 11, 2023 8:08 AM I spent a total of 50 minutes on the date of the service which included preparing to see the patient, qcmd-vy-znua patient care, completing clinical documentation, obtaining and/or [...] to communic (more content not included)... Normal [facility] C. trachomatis+N. gonorrhoea e DNA PENNY+probe Ql (Unsp spec)on 07-28-2023 C. trachomatis rRNA PENNY+probe Ql (Unsp spec) Negative Normal Negative for Chlamydia trachomatis by amplificaton [facility] Comment on above: Order Comment: Speci men Type: URINE SPECIMEN Ordering Facility: [facility] Address: [address] [place] [address] Performed By: #### 3 6902-5 #### [facility] CLIA [id number] [address] [place] [address] [place] N. gonorrhoeae rRNA PENNY+probe Ql (Unsp spec) Negative Normal Negative for Neisseria gonorrhoeae by amplification [facility] Comment on above: Order Comment: Speci men Type: URINE SPECIMEN Ordering Facility: [facility] Address: [address] [place] [address] Performed By: #### 3 6902-5 #### [facility] CLIA [id number] [address] [place] [address] [place] CARRIER SCREEN, EXPANDEDon 0 07-28-2023 CARRIER SCREEN RESULTS View results in Scanned Documents link when available. Normal [facility] Comment on above: Order Comment: Speci men Type: BLOOD SPECIMEN Ordering Facility: [facility] Address: [address] [place] [address] Performed By: #### 7 3752-8, 5195-3, 55236-7, 85509-8 #### [facility] CLIA [id number] [address] [place] [address] [place] CMV IgG Qnon 07-28-2023 CMV IGG QUAL Negative Normal Negative [facility] Comment on above: Order Comment: Speci men Type: BLOOD SPECIMEN Ordering Facility: [facility] Address: [address] [place] [address] Result Comment: No s erological evidence of past exposure to Cytomegalovirus. Cannot exclude recent infection if the specimen collected within 4-6 weeks after infection. Performed By: #### 7 3752-8, 5195-3, 02837-2, 19028-6 #### [facility] CLIA [id number] [address] [place] [address] [place] CMV IgG SerPl-aCncon 024 CMV IgG Qn <0.[address] [facility] Comment on above: Order Comment: Speci men Type: BLOOD SPECIMEN Ordering Facility: [facility] Address: [address] [place] [address] Result Comment: The magnitude of the measured result is not indicative of the amount of antibody present. U/mL values are interpreted as follows: Negative <0.6 Equivocal 0.6 to <0.70 Positive >=0.70 Performed By: #### 7 3752-8, 5195-3, 34942-9, 66651-9 #### [facility] CLIA [id number] [address] [place] [address] [place] CMV IgM Qnon 07-28-2023 CMV IGM, QUAL Negative Normal Negative [facility] Comment on above: Order Comment: Speci men Type: BLOOD SPECIMEN Ordering Facility: [facility] Address: [address] [place] [address] Result Comment: No s erological evidence of recent exposure to Cytomegalovirus. Performed By: #### 7 3752-8, 5195-3, 98119-3, 46372-6 #### [facility] CLIA [id number] [address] [place] [address] [place] CNPNon 07-28-2023 SAYDA Telephone (REIBD) NELLI CARPENTER ([id number]) 1990 F Date Time Provider Department 07/28/23 [...] follow up once checklist is complete. sent [employer] message. Andressa Abraham APRN.CNP July 28, 2023 12:27 PM Allergies As of Date: 07/28/2023 (No Known Allergies) Date Reviewed: 06/15/2023 Reviewed by: Jarad, Andressa G, PRIMARY CLASS TEACHER.PANEL LAY UP WORKER - Fully Assessed Reason for Visit: [...] Status:Closed by ANDRESSA ABRAHAM on 07/28/[address] [facility] HBV core Ab Ser Qlon 024 HBV core Ab Ql (S) Negative Normal Negative [facility] Comment on above: Order Comment: Speci men Type: BLOOD SPECIMEN Ordering Facility: [facility] Address: [address] [place] [address] Result Comment: No e vidence of current or past infection with Hepatitis B virus. Should recent infection be suspected, repeat testing may be considered 3-4 weeks after this draw. Performed By: #### 7 3752-8, 5195-3, 02724-1, 16303-3 #### [facility] CLIA [id number] [address] [place] [address] [place] HBV surface Ag Ser Qlon 06-30 HBV surface Ag Ql (S) Negative Normal Negative [facility] Comment on above: Order Comment: Speci men Type: BLOOD SPECIMEN Ordering Facility: [facility] Address: [address] [place] [address] Performed By: #### 7 3752-8, 5195-3, 68556-2, 09690-9 #### [facility] CLIA [id number] [address] [place] [address] [place] HCV Ab Ser Qlon 07-28-2023 HCV Ab Ql (S) Negative Normal Negative [facility] Comment on above: Order Comment: Speci men Type: BLOOD SPECIMEN Ordering Facility: [facility] Address: [address] [place] [address] Result Comment: The result suggests no evidence of active infection with Hepatitis C virus. Should recent infection be suspected, repeat testing may be considered 4-6 weeks after this draw. Performed By: #### 7 3752-8, 5195-3, 96148-1, 31032-9 #### [facility] CLIA [id number] [address] [place] [address] [place] HIV 1+2 Ab IA Qlon 4 HIV 1 and 2 Ab IA.rapid Nom (S/P/Bld) Normal [facility] Comment on above: Order Comment: Speci men Type: BLOOD SPECIMEN Ordering Facility: [facility] Address: [address] [place] [address] Result Comment: Test not indicated. Performed By: #### 7 3752-8, 5195-3, 89455-1, 77641-7 #### [facility] CLIA [id number] [address] [place] [address] [place] HIV 1+2 Ab+HIV1 p24 Ag IA Ql Non-Reactive Normal Nonreactive [facility] Comment on above: Order Comment: Speci men Type: BLOOD SPECIMEN Ordering Facility: [facility] Address: [address] [place] [address] Performed By: #### 7 3752-8, 5195-3, 98894-3, 42712-8 #### [facility] CLIA [id number] [address] [place] [address] [place] HIV immunoassay testing algorithm interpretation (S/P/Bld) [Interp] Normal [facility] Comment on above: Order Comment: Speci men Type: BLOOD SPECIMEN Ordering Facility: [facility] Address: [address] [place] [address] Result Comment: No e vidence of HIV-1 or HIV-2 infection. Should recent infection be suspected, repeat testing may be considered 2-3 weeks after this draw. [place] Rev. Code 3701.243(E): This information has been [...] diagnoses. Performed By: #### 7 3752-8, 5195-3, 25815-5, 32014-3 #### [facility] CLIA [id number] [address] [place] [address] [place] RUBELLA IGG ANTIBODYon 07-27 RUBELLA IGG AB, QUAL Negative Abnormal Positive [facility] Comment on above: Order Comment: Speci men Type: BLOOD SPECIMEN Ordering Facility: [facility] Address: [address] [place] [address] Result Comment: The result suggests no history of Rubella vaccination or exposure to Rubella virus, however, some individuals with past history of Rubella vaccination may test negative using this test as immunity to Rubella virus wanes over time after vaccination. Please correlate with vaccination history if applicable. Performed By: #### 7 3752-8, 5195-3, 54467-5, 63251-8 #### [facility] CLIA [id number] [address] [place] [address] [place] Reagin and Treponema pallidu m IgG and IgM [Interp]on 07-28-2023 T. pallidum IgG+IgM IA Ql (S) Non-Reactive Normal Nonreactive [facility] Comment on above: Order Comment: Speci men Type: BLOOD SPECIMEN Ordering Facility: [facility] Address: [address] [place] [address] Performed By: #### 7 3752-8, 5195-3, 81312-2, 50145-6 #### [facility] CLIA [id number] [address] [place] [address] [place] Reagin+T pallidum IgG+IgM Se rPl-Impon 07-28-2023 Reagin and Treponema pallidum IgG and IgM [Interp] Cannot exclude recent Treponemal infection if specimen collected within 7-10 days after appearance of suspect lesions or 2-3 weeks after an exposure. Clinical correlation is required. Normal [facility] Comment on above: Order Comment: Speci men Type: BLOOD SPECIMEN Ordering Facility: [facility] Address: [address] [place] [address] Performed By: #### 7 3752-8, 5195-3, 40537-7, 66289-5 #### [facility] CLIA [id number] [address] [place] [address] [place] TYPE + SCREEN PRENATALon ABO O Normal [facility] Comment on above: Order Comment: Speci men Type: BLOOD SPECIMEN Ordering Facility: [facility] Address: [address] [place] [address] Performed By: #### 7 3752-8, 5195-3, 34620-4, 70353-5 #### [facility] CLIA [id number] [address] [place] [address] [place] HISTORICAL AB SCR STATUS Negative Normal [facility] Comment on above: Order Comment: Speci men Type: BLOOD SPECIMEN Ordering Facility: [facility] Address: [address] [place] [address] Performed By: #### 7 3752-8, 5195-3, 45278-7, 11224-4 #### [facility] CLIA [id number] [address] [place] [address] [place] Rh Nom (Bld) Positive Normal [facility] Comment on above: Order Comment: Speci men Type: BLOOD SPECIMEN Ordering Facility: [facility] Address: [address] [place] [address] Performed By: #### 7 3752-8, 5195-3, 28356-3, 89667-8 #### [facility] CLIA [id number] [address] [place] [address] [place] TYPE AND SCREEN EXPIRATION 07/31/2023 23:[address] [facility] Comment on above: Order Comment: Speci men Type: BLOOD SPECIMEN Ordering Facility: [facility] Address: [address] [place] [address] Performed By: #### 7 3752-8, 5195-3, 39457-0, 65213-4 #### [facility] CLIA [id number] [address] [place] [address] [place] VARICELLA ZOSTER IGGon 07-27 VARICELLA ZOSTER IGG, QUAL Positive Normal Positive [facility] Comment on above: Order Comment: Speci men Type: BLOOD SPECIMEN Ordering Facility: [facility] Address: [address] [place] [address] Result Comment: The result suggests recent or past exposure to Varicella-Zoster virus or chickenpox vaccination or zoster vaccination. Positive result may also be seen due to presence of passively-transferred antibodies. Please correlate with patient's history. Performed By: #### 7 3752-8, 5195-3, 77229-2, 66285-8 #### [facility] CLIA [id number] [address] [place] [address] [place] CNOVon 06-08-2023 CNOV Office Visit (REIMN) NELLI CARPENTER ([id number]) 1990 F Date Time Provider Department 06/08/23 [...] visit. Either the patient or their legal sales representative publications has been informed of the risks and [...] in 2016 and a section in 2017 [facility] area with. The was because of placenta previa at 37 weeks. She had no postoperative complications. After her delivery she had an IUD which had to be removed by hysteroscopy. She is otherwise healthy except for abnormal weight gain for which she has been prescribed Wegovy. She is a non-smoker. 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 Rahul Zheng MD 06/08/2023 10:26 AM Signed Obstetrics and Gynecology [facility] Intrauterine Insemination Scheduling Instructions Please note: Insurance authorization/financia l clearance is required with every IUI. Call the office as soon as you decide to move forward with IUI to start the authorization/clearanc e process. If insurance authorization is not complete by (more content not included)... Normal [facility] Ambulatory Visit Summaryon 1 05-17-2022 Ambulatory [...] for choosing us for your care. Normal [facility] Family Medicine Office/Clini c Noteon 03-16-2023 [...] data available Patient Education Wrist Pain, Adult, Tizf-fh-Oucz Problem List/Past Medical History Ongoing Acute sinusitis [...] DTaP, unspecified formulation 1990 Recorded Normal [facility] Comment on above: Result Comment: [...] any changes in your symptoms. ? Take hiac-dbc-orncmrp and prescription medicines only as told by [...] Reviewed: 02/02/2020 Elsevier Patient Education ? 2022 [employer] Normal [facility] XR Wrist 3+ Views Righton XR [...] Lozano MD Transcribed by: TATE Technologist: JUAN DAVDI Technical Comments Radiation Dose: Kar in mGy = . DAP = . Normal [facility] Covid 19 Resultson 1 SARS-CoV-2 (COVID-19) [...] You may also be contacted by the [facility] to see if any of your close [...] or Naproxen (Aleve) can also be used. Migz-spp-xdbebfi cough and cold medicines can be used according to the instructions on the package. Some cwxl-ied-xieamvo medicines also contain acetaminophen. Make sure you [...] water are not available, use alcohol-based hand it service continuity supervisor. Avoid touching your eyes, nose, and mouth [...] 24 de (more content not included)... Normal [facility] INFLUENZA A/B, COVID 2019 PC R,SYMPTOMATICon 03-12-2021 INFLUENZA A, PCR Not detected Normal Not Detected [facility] Comment on above: Result Comment: Resp iratory virus testing is performed routinely by PCR for Influenza A/B and RSV. If Influenza and RSV PCR are negative, testing for parainfluenza 1,2,3 viruses and adenovirus is routinely performed for oncology inpatients and intensive care unit patients at [facility] and is available on request on other patients by calling Laboratory Client Services at [phone]. Not Detected results do not preclude Influenza A/B or RSV infections since the adequacy of sample collection or low viral burden may impact the clinical sensitivity of this test method. Performed By: #### C OINP #### [facility] [address] [place] [id number] INFLUENZA B, PCR Not detected Normal Not Detected [facility] Comment on above: Result Comment: Resp iratory virus testing is performed routinely by PCR for Influenza A/B and RSV. If Influenza and RSV PCR are negative, testing for parainfluenza 1,2,3 viruses and adenovirus is routinely performed for oncology inpatients and intensive care unit patients at [facility] and is available on request on other patients by calling Laboratory Client Services at [phone] Not Detected results do not preclude Influenza [...] by the Microbiology Laboratory, Department of Pathology, [facility], [place], [place]. It has not been cleared or approved by the US Food and Drug Administration; however, FDA clearance or approval is not currently required for clinical use. This test should not be regarded as investigational or for research purposes. Performed By: #### C OINP #### [facility] [address] [place] [address] SARS-CoV-2 (COVID-19) RNA PENNY+probe Ql (Unsp spec) Not detected Normal Not Detected [facility] Comment on above: Result Comment: . This [...] patient management decisions. Fact sheet for providers: https://www.fda.gov/media/815037/download Fact sheet for patients: https://www.fda.gov/media/538154/download This test has received FDA Emergency Use Authorization (EUA) and has been verified by [facility] ([facility]). This test is only authorized for the duration of time that circumstances exist to justify the authorization of the emergency use of in vitro diagnostic tests for the detection of SARS-CoV-2 virus and/or diagnosis of COVID-19 infection under section 564(b)(1) of the Act, 21 U.S.C. 360bbb-3(b)(1), unless the authorization is terminated or revoked sooner. [facility] is certified under CLIA-88 as qualified to perform high complexity testing. Testing is performed in the [facility] laboratories located at [address] [place] [address]. Performed By: #### C OINP #### [address] [place] [address] INFLUENZA A/B, COVID 2019 PC R,SYMPTOMATICon 03-11-2021 DATE OF SYMPTOM ONSET [YYYYMMDD]? [id number] Normal [facility] Comment on above: Performed By: #### C OINP #### [address] [place] [address] Lab Specimen Source Nasal, Nasopharyngeal Normal [facility] Comment on above: Performed By: #### C OINP #### [address] [place] [address] Provider Note - ED v2on 02-27 Provider [...] a day Drug Name: brompheniramine/pseudo ephedrine/dextromethor foley 4zw-75vy-13rp/5 mL oral syrup Instructions: 5 milliliter(s) orally every 4 to 6 hours, As Needed Drug Name: cetirizine 10 mg oral tablet Instructions: 1 tab(s) orally once a day SIGNIFICANT EVENTS: Other Description:NO SURGICAL HISTORY THIS YEAR Additional Notes:02/2021 Description:NON SMOKER Additional Notes:02/2021 Past Medical History Description:NO CHRONIC HEALTH ISSUES Additional Notes:02/2021 RN ACUTE CARE: Is : no Is : no REVIEW [...] SIGNS: T PRBP SpO2O2(LPM) %FiO2 Method 11-Mar-2021 10:17:[id number] 7 97 PHYSICAL EXAM CONSTITUTIONAL: Appearance: well [...] Electronic Signatures for Addendum Section: Filomena Zamora (PRIMARY CLASS TEACHER-PANEL LAY UP WORKER) (Signed Addendum 12-Mar-2021 09:58) Left message for call back regarding test results for pt, and her 2 daughters. Filomena Zamora (PRIMARY CLASS TEACHER-PANEL LAY UP WORKER) (Signed Addendum 12-Mar-2021 13:53) Spoke with patient and advised her of negative Covid test results, marlo (more content not included)... Normal [facility] Hemoglobin and Hematocriton 12-10-2016 Hematocrit (HCT) 30.2 % Low 36.5-46.6 [facility] Comment on above: Performed By: #### 2 [id number] ####[facility] [address] [place] [address] Hemoglobin mass conc (Bld) 9.8 g/dL Low 11.8-15.3 [facility] Comment on above: Performed By: #### 2 638270 ####[address] [place] [address] CBC With Differentialon 11-28 Basophils Auto #/vol (Bld) 0.05 10*3/uL Normal 0.01-0.07 [facility] Comment on above: Performed By: #### 2 853493 ####[facility] [address] [place] [address] Basophils/100 WBC Auto (Bld) 0.5 % Normal 0.1-1.2 [facility] Comment on above: Performed By: #### 2 327340 ####[address] [place] [address] Eosinophils 0.08 10*3/uL Normal 0.04-0.50 [facility] Comment on above: Performed By: #### 2 125066 ####[facility] [address] [place] [address] Eosinophils/100 leukocytes 0.7 % Normal 0.0-8.1 [facility] Comment on above: Performed By: #### 2 312932 ####[facility] [address] [place] [address] Erythrocyte distribution width Auto Ratio (RBC) 14.8 % Normal 12.0-15.4 [facility] Comment on above: Performed By: #### 2 137911 ####[facility] [address] [place] [address] Erythrocytes (RBC) 0.0 /100{WBCs} Normal [facility] Comment on above: Performed By: #### 2 164334 ####[facility] [address] [place] [address] Erythrocytes (RBC) 3.87 10*6/uL Normal 3.85-5.10 [facility] Comment on above: Performed By: #### 2 365395 ####[facility] [address] [place] [address] Erythrocytes (RBC) 0.00 10*3/uL Normal [facility] Comment on above: Performed By: #### 2 518061 ####[facility] [address] [place] [address] Hematocrit (HCT) 34.5 % Low 36.5-46.6 [facility] Comment on above: Performed By: #### 2 071098 ####[address] [place] [address] Hemoglobin mass conc (Bld) 11.4 g/dL Low 11.8-15.3 [facility] Comment on above: Performed By: #### 2 039375 ####[facility] [address] [place] [address] Imm Grans Absolute 0.55 10*3/uL High 0.00-0.21 [facility] Comment on above: Performed By: #### 2 758131 ####[facility] [address] [place] [address] Immature granulocytes #/vol (Bld) 5.0 % Normal [facility] Comment on above: Performed By: #### 2 741199 ####[facility] [address] [place] [address] Lymphocytes 1.91 10*3/uL Normal 0.40-2.84 [facility] Comment on above: Performed By: #### 2 872902 ####[facility] [address] [place] [address] Lymphocytes/100 leukocytes 17.2 % Normal 15.7-50.5 [facility] Comment on above: Performed By: #### 2 831554 ####[facility] [address] [place] [address] MCH 29.5 pg Normal 27.5-33.0 [facility] Comment on above: Performed By: #### 2 182886 ####[facility] [address] [place] [address] MCHC mass conc (RBC) 33.0 g/dL Normal 30.1-35.0 [facility] Comment on above: Performed By: #### 2 221363 ####[facility] [address] [place] [address] MCV 89.1 fL Normal 85.4-100.0 [facility] Comment on above: Performed By: #### 2 966205 ####[facility] [address] [place] [address] Monocytes 0.84 10*3/uL High 0.25-0.83 [facility] Comment on above: Performed By: #### 2 804624 ####[facility] [address] [place] [address] Monocytes/100 leukocytes 7.6 % Normal 4.8-12.7 [facility] Comment on above: Performed By: #### 2 724255 ####[facility] [address] [place] [address] Neutrophils 7.66 10*3/uL High 1.95-6.85 [facility] Comment on above: Performed By: #### 2 819054 ####[facility] [address] [place] [address] Neutrophils/100 leukocytes 69.0 % Normal 36.8-73.2 [facility] Comment on above: Performed By: #### 2 557969 ####[facility] [address] [place] [address] Platelet mean volume (PMV) 10.7 fL Normal 9.9-12.1 [facility] Comment on above: Performed By: #### 2 740718 ####[facility] [address] [place] [address] Platelets 197 10*3/uL Normal 155-404 [facility] Comment on above: Performed By: #### 2 553515 ####[facility] [address] [place] [address] RDW SD 48.2 fL Normal 39.3-48.6 [facility] Comment on above: Performed By: #### 2 886040 ####[facility] [address] [place] [address] WBC (Leukocytes) 11.1 10*3/uL High 4.4-9.9 [facility] Comment on above: Performed By: #### 2 850182 ####[facility] [address] [place] [address] Pathology ([facility])on 12-09-2016 Pathology ([facility]) FINAL SURGICAL PATHOLOGY [id number] FINAL DIAGNOSISPLACENTA-THIR D TRIMESTER PLACENTA WITH ACCESSORY LOBE , 470 GRAMS.FOCAL FIBRIN PLAQUE FORMATION.FOCAL DYSTROPHIC MICROCALCIFICATIONS.TH REE-VESSEL UMBILICAL CORD, NEGATIVE FOR FUNISITIS. MEMBRANES, NEGATIVE FOR CHORIOAMNIONITIS.CLINI DASHA HISTORY: 38 WEEKS INTRAUTERINE , HISTORY OF PREVIA WITH BLEEDINGOPERATION:PRIM JILL SECTIONSPECIMEN(S):(A) PLACENTA, THIRD TRIMESTERPerformed at [facility], [address] [place] [address] [id number] DESCRIPTION:Received fresh, labeled with the patient's name, [...] cordA2, A3 - membranesA4, A5, A6 - sales representative publications sections of placentaSigned Out by:ANABEL PITTMANeported: 12/11/2016 Normal [facility] Comment on above: Performed By: #### S UR ####[address] [place] [address] Red Blood Cellson 12-09-2016 Erythrocytes (RBC) Normal [facility] Comment on above: Result Comment: [id number] released Performed By: #### R C ####[facility] (UNKNOWN)[address] [address] Type and Screenon 12-09-2016 Antibody Screen Negative Normal [facility] Comment on above: Performed By: #### T S3 ####[address] [place] [address] Group and Rh Positive Normal [facility] Comment on above: Performed By: #### T S3 ####[address] [address] PREG COMPL ECHO W/O NIKKI ALIZA VEYon [...] closed with length of 3.3 cm. Normal [facility] Culture Urineon 11-06-2016 Culture Urine STATUS: FINAL REPORT SITE: SOURCE: Urine Culture Urine: <1,000 cfu/ml--No growth Normal [facility] Comment on above: Performed By: #### 6 [id number] ####[facility] [address] [place] [address] Vital Signs Date Time Vital Sign Value Performing Clinician Facility 02-28-2024 09:00-0500 Blood Pressure Location [facility] 02-28-2024 09:00-0500 [facility] 98.96 [degF[facility] 02-28-2024 09:00-0500 Diastolic blood pressure 80 mm[Hg] [facility] 02-28-2024 09:00-0500 Heart rate 92 /min [facility] 02-28-2024 09:00-0500 SaO2% (BldA) [Mass fraction] 98 % [facility] 02-28-2024 09:00-0500 Systolic blood pressure 124 mm[Hg] [facility] 12-28-2023 08:37-0400 Body height 160 cm Karen Bolanos MD Work Phone: [facility] 12-28-2023 08:37-0400 Body mass index (BMI) [Ratio] 37.02 kg/m2 Karen Bolanos MD Work Phone: [facility] 12-28-2023 08:37-0400 Body temperature 98.6 [degF] Karen Bolanos MD Work Phone: [facility] 12-28-2023 08:37-0400 Body weight 94.8 kg Karen Bolanos MD Work Phone: [facility] 12-28-2023 08:37-0400 Diastolic blood pressure 78 mm[Hg] Karen Bolanos MD Work Phone: [facility] 12-28-2023 08:37-0400 Heart rate 76 /min Karen Bolanos MD Work Phone: [facility] 12-28-2023 08:37-0400 SaO2% (BldA) [Mass fraction] 98 % Karen Bolanos MD Work Phone: [facility] 12-28-2023 08:37-0400 Systolic blood pressure 116 mm[Hg] Karen Bolanos MD Work Phone: [facility] 06-08-2023 09:50-0400 Body height 160 cm Rahul Zheng MD Work Phone: [facility] 06-08-2023 09:50-0400 Body weight 89 kg Rahul Zheng MD Work Phone: [facility] 06-08-2023 09:50-0400 Diastolic blood pressure 83 mm[Hg] Rahul Zheng MD Work Phone: [facility] 06-08-2023 09:50-0400 Systolic blood pressure 132 mm[Hg] Rahul Zheng MD Work Phone: [facility] 03-16-2023 15:08-0500 Blood Pressure Location [facility] 03-16-2023 15:08-0500 Body temperature 98.42 [degF] [facility] 03-16-2023 15:08-0500 Diastolic blood pressure 84 mm[Hg] [facility] 03-16-2023 15:08-0500 Heart rate 73 /min [facility] 03-16-2023 15:08-0500 SaO2% (BldA) [Mass fraction] 96 % [facility] 03-16-2023 15:08-0500 Systolic blood pressure 128 mm[Hg] [facility] 03-11-2021 12:17-0500 Body height 160 cm Karen Luis Miguel Other Phone: [facility] 03-11-2021 12:17-0500 Body temperature 98.06 [degF] Karen Luis Miguel Other Phone: [facility] 03-11-2021 12:17-0500 Diastolic blood pressure 67 mm[Hg] Karen Luis Miguel Other Phone: [facility] 03-11-2021 12:17-0500 Heart rate 78 /min Karen Luis Miguel Other Phone: [facility] 03-11-2021 12:17-0500 Respiratory rate 20 /min Karen Luis Miguel Other Phone: [facility] 03-11-2021 12:17-0500 SaO2% (BldA) [Mass fraction] 97 % Karen Bolanos Other Phone: [facility] 03-11-2021 12:17-0500 Systolic blood pressure 101 mm[Hg] Karen Bolanos Other Phone: [facility] Encounters Encounter Date Encounter Type Care Provider [...] 02-28-2024 End: 02-28-2024 ambulatory TIARRA KATZ Facility:[facility] Start: 02-28-2024 End: 02-28-2024 Patient encounter procedure [facility] Start: 02-16-2024 End: 02-16-2024 ambulatory Andressa Abraham APRN.[employer]ANEL LAY UP WORKER Work Phone: [facility] Comment on above: Records Start: 02-09-2024 End: 02-09-2024 Nursing evaluation of patient and report Virginia Marie MD Work Phone: [facility] Comment on above: resulting from assisted reproductive technology in first trimester Start: 02-09-2024 End: 02-09-2024 ambulatory ANDRESSA ABRAHAM Facility:[facility] Start: 01-21-2024 End: 01-21-2024 ambulatory JESSI YOO Facility:[facility] Start: 01-20-2024 End: 01-20-2024 ambulatory Andressa Abraham PRIMARY CLASS TEACHER.PANEL LAY UP WORKER Work Phone: [facility] Comment on above: resulting from assisted reproductive technology in first trimester (Primary Dx) Start: 01-20-2024 End: 01-20-2024 Telemedicine consultation with patient Andressa Abraham PRIMARY CLASS TEACHER.PANEL LAY UP WORKER Work Phone: [facility] Start: 01-19-2024 End: 01-19-2024 ambulatory JESSI YOO Facility:[facility] Start: 01-18-2024 End: 01-18-2024 Telephone encounter Andressa Abraham PRIMARY CLASS TEACHER.PANEL LAY UP WORKER Work Phone: [facility] Comment on above: +hpt 01/15 after an iui Start: 01-02-2024 End: 01-02-2024 ambulatory ANYI GANT Facility:[facility] Start: 01-02-2024 End: 01-02-2024 Patient encounter procedure Anyi Gant MD Work Phone: [facility] Comment on above: Encounter for artifi cial insemination (Primary Dx) Procreative manageme nt (Primary Dx) Start: 12-30-2023 End: 12-30-2023 ambulatory ANDRESSA ABRAHAM Facility:[facility] Start: 12-28-2023 End: 12-28-2023 Shreyas Bolanos MD Work Phone: [facility] Start: 12-28-2023 End: 12-28-2023 Shreyas Bolanos MD Work Phone: [facility] Start: 12-28-2023 End: 12-28-2023 Office outpatient visit 15 minutes Karen Bolanos MD Work Phone: [facility] Comment on above: Infertility, female (Primary Dx); BMI 37.0-37.9, adult; Morbid obesity (CMS/HCC) Start: 12-28-2023 End: 12-28-2023 ambulatory KAREN BOLANOS Not Available Start: 12-05-2023 End: 12-05-2023 ambulatory MYRIAM DOMINGUEZ Facility:[facility] Start: 12-05-2023 End: 12-05-2023 Patient encounter procedure [facility] [place] Work Phone: [facility] Comment on above: Procreative manageme nt (Primary Dx) Female infertility ( Primary Dx) Start: 12-04-2023 End: 12-04-2023 ambulatory Andressa Abraham APRN.PANEL LAY UP WORKER Work Phone: [facility] Comment [...] Infertility Start: 10-29-2023 Follow-up encounter Vidhya osorio APRN.PANEL LAY UP WORKER Work Phone: [facility] Comment on above: Follow up Start: 10-16-2023 End: 10-16-2023 ambulatory JESSI YOO Facility:[facility] Start: 10-12-2023 Telephone encounter Andressa Abraham APRN.PANEL LAY UP WORKER Work Phone: [facility] Comment on above: +ovulation test Sat& Sund d14 & 15 partner calling Start: 10-05-2023 ambulatory Andressa Deleon angelita PRIMARY CLASS TEACHER.PANEL LAY UP WORKER Work Phone: [facility] Comment on above: Doner Start: 09-11-2023 End: 09-11-2023 ambulatory ANDRESSA ABRAHAM Facility:[facility] Start: 09-11-2023 End: 09-11-2023 Patient encounter procedure Andressa Abraham PRIMARY CLASS TEACHER.PANEL LAY UP WORKER Work Phone: [facility] Comment on above: Encounter for fertil ity planning (Primary Dx) Start: 07-28-2023 Telephone encounter Rahul carroll MD Work Phone: Reproductive Endocrinology Infertility Comment on above: Lila bloodwork compl eted today Start: 07-28-2023 End: 07-28-2023 ambulatory ANDRESSA ABRAHAM Facility:[facility] Start: 07-02-2023 End: 07-02-2023 ambulatory ANDREA PRIETO Not Available Start: 06-15-2023 End: 06-15-2023 Telemedicine consultation with patient Andressa Abraham PRIMARY CLASS TEACHER.PANEL LAY UP WORKER Work Phone: [facility] Start: 06-15-2023 End: 06-15-2023 ambulatory Andressa Abraham PRIMARY CLASS TEACHER.PANEL LAY UP WORKER Work Phone: Reproductive Endocrinology Infertility Comment on above: Encounter for fertil ity planning (Primary Dx); Encounter for other genetic testing of female for procreative management Start: 06-08-2023 End: 06-08-2023 ambulatory RAHUL ZHENG Facility:[facility] Start: 06-08-2023 End: 06-08-2023 Patient encounter procedure Rahul Zheng MD Work Phone: Reproductive Endocrinology Infertility Comment on above: Procreative manageme nt counseling (Primary Dx); BMI 34.0-34.9,adult Start: 03-16-2023 End: 03-16-2023 ambulatory TIARRA KATZ Facility:[facility] Start: 03-16-2023 End: 03-16-2023 Patient encounter procedure TIARRA KATZ [facility] Start: 03-19-2022 End: 03-19-[address] ANDREA PRIETO Facility: Start: 03-11-2021 End: 03-11-2021 Emergency department patient visit Filomena Zamora [facility] Start: 12-09-2016 End: 12-11-2016 Evaluation and management of inpatient KEITH [place] Facility:[facility] Start: 12-03-2016 Ambulatory KEITH [place] Facility: [facility] Start: 11-13-2016 End: 11-13-2016 Ambulatory CHARLIE JOEL Facility:[facility] Start: 11-06-2016 Ambulatory CHARLIE JOEL Faci lity:[facility] Procedures Date Procedure Procedure Detail Performing Clinician Start: 03-14-2024 ALL CBC WITH AUTO DIFF Andrea Prieto DO Work Phone: Start: 03-11-2024 Urnls dip stick/tabl et rgnt non-auto w/o micrscp Andrea Prieto DO Work Phone: Start: 02-09-2024 Us preg uterus after 1st trimest 03/30 gestation Andressa Abraham PRIMARY CLASS TEACHER.PANEL LAY UP WORKER Work Phone: Start: 07-28-2023 Antibody screen ANDRESSA ABRAHAM Comment on above: Order Comment: Speci men Type: BLOOD SPECIMEN Ordering Facility: [facility] Address: [address] [place] [address] Performed By: #### 7 [id number], [id number], [id number], 04759-1 #### [facility] CLIA [id number] [address] [place] [address] [place] Start: 03-19-2022 Microscopic observat ion [Identifier] in Cervix by Cyto stain Karen Bolanos MD Work Phone: section TIARRA CALVO Removal of intrauter ine device TIARRA KATZ Plan of Treatment Date Care Activity Detail Author Start: 03-19-2025 Screening for malignant neoplasm of cervix [facility] Start: 07-05-2024 End: 07-05-2024 Patient encounter procedure 07/05/2024 11:00 AM EDT Office Visit [facility] [address] [place] [id number] Andrea Prieto, DO [address] [place] [address] [facility] Start: 04-19-2024 End: 04-19-2024 Patient encounter procedure 04/19/2024 10:30 AM EST Routine [facility] [address] [facility] [place] [id number] Andrea Prieto, DO [address] [place] [address] Arrived [facility] Comment on above: Arrived Start: 04-12-2024 End: 04-12-2024 Patient encounter procedure 04/12/2024 11:10 AM EST Routine [facility] [address] [phone] Andrea Prieto, DO [address] [place] [address] [facility] Start: 03-11-2024 End: 03-11-2025 [...] AM EST Nurse Visit [facility] [address] [place] [address] Rej, Nurse Sarmad [facility] [address] [place] [address] ob scan [facility] End[facility]inology [facility] Comment on above: ob scan Start: 01-25-2024 End: 01-25-2024 Patient encounter procedure 01/25/2024 9:40 AM EDT Office Visit [facility] [address] [address] Andrea Prieto, DO [address] [facility] [place] [address] [facility] Start: 01-20-2024 End: 01-19-2025 OBSTETRIC ULTRASOUND WHI OBSTETRIC ULTRASOUND [facility]I Anc Imaging Routine resulting from assisted reproductive technology in first trimester Expected: 01/20/2024, Expires: 01/19/2025 [facility] Work Phone: Comment on above: Expected: 01/20/2024 , Expires: 01/19/2025 Start: 12-28-2023 End: 12-28-2023 Patient encounter procedure 12/28/2023 8:20 AM EDT Office Visit [facility] [address] [place] [id number] Karen Bolanos MD [address] [place] [address] Arrived [facility] Comment on above: Arrived Start: 12-05-2023 End: 12-05-2023 Patient encounter procedure [facility] Comment on above: donor thaw IUI-D Start: 11-29-2023 Covid-19 Vaccine () Covid-19 Vaccine () [facility] Start: 11-29-2023 Covid-19 Vaccine () Covid-19 Vaccine () [facility] Start: 11-29-2023 Influenza vaccination Influenza Vacc ine (#1) [facility] Start: 10-12-2023 End: 01-11-2024 Progesterone [Mass/volume] in Serum or Plasma PROGESTERONE Lab Routine Female infertility Expected: 10/12/2023, Expires: 01/11/2024 [facility] Work Phone: Comment on above: Expected: 10/12/2023 , Expires: 01/11/2024 Start: 06-15-2023 End: 09-14-2023 CARRIER SCREEN, EXPANDED CARRIER SCREEN, EXPANDED Lab Routine Encounter for other genetic testing of female for procreative management Expected: 06/15/2023, Expires: 09/14/2023 [facility] Work Phone: Comment on above: Expected: 06/15/2023 , Expires: 09/14/2023 Start: 03-30-2023 Behavioral Health Screening Behavioral Health Screening [facility] Start: 03-30-2023 Depression Assessment Depression Ass essment [facility] Start: 11-28-2022 Covid-19 Vaccine () Covid-19 Vaccine () [facility] Start: 11-28-2022 Influenza vaccination Influenza Vacc ine (#1) [facility] Start: 08-01-2021 Screening for malignant neoplasm of cervix [facility] Start: 03-18-2018 Screening for malignant neoplasm of cervix Pap Testing [facility] Start: 03-18-2016 Screening for malignant neoplasm of cervix Cervical Cancer Screening [facility] Start: 08-01-2009 Anxiety Screening Anxiety Screening [facility] Start: 08-01-2009 Depression Screening Depression Scre ening [facility] Start: 08-01-2009 Hepatitis C screening Hepatitis C Sc reening [facility] Start: 08-01-2009 HIV screening HIV Screening [facility] Start: 01-05-2004 Hepatitis B Vaccine (2 of 3 - 3-dose series) Hepatitis B Vaccine (2 of 3 - 3-dose series) [facility] Start: 08-01-2002 Urine microalbumin profile DTaP,Tdap,Td Vaccine (5 - Tdap) [facility] Bacteria identified in Urine by Culture Urine culture Microbiology Routine Missed menses Ordered: 03/11/[address] [facility] Comment on above: Ordered: 03/11/2024 CBC W Auto Differential panel - Blood CBC and differential Lab Routine Missed menses , unspecified gestational age Ordered: 03/11/[address] [facility] Comment on above: Ordered: 03/11/2024 End: 01-17-2025 Choriogonadotropin.bet a subunit [Units/volume] in Serum or Plasma HCG QUANTITATIVE Lab Routine Encounter for test, result positive 2x per week for 2 Occurrences starting 01/18/2024 until 01/17/2025 [facility] Work Phone: Comment on above: 2x per week for 2 Oc currences starting 01/18/2024 until 01/17/2025 Hemoglobin A1c/Hemoglobin.total in Blood Hemoglobin A1c Lab Routine Missed menses , unspecified gestational age Ordered: 03/11/[address] [facility] Comment on above: Ordered: 03/11/2024 Hepatitis B virus surface Ag [Presence] in Serum or Plasma by Immunoassay Hepatitis B surface antigen Lab Routine Missed menses , unspecified gestational age Ordered: 03/11/[address] [facility] Comment on above: Ordered: 03/11/2024 Hepatitis C virus Ab [Presence] in Serum or Plasma by Immunoassay Hepatitis C antibody Lab Routine Missed menses , unspecified gestational age Ordered: 03/11/[address] [facility] Comment on above: Ordered: 03/11/2024 HIV-1/HIV-2 antigen/antibody combination immunoassay HIV-1 and HIV-2 antibodies Lab Routine Missed menses , unspecified gestational age Ordered: 03/11/[address] [facility] Comment on above: Ordered: 03/11/2024 Reagin Ab [Presence] in Serum by RPR RPR Lab Routine Missed menses , unspecified gestational age Ordered: 03/11/[address] [facility] Comment on above: Ordered: 03/11/2024 Rubella antibody, IgG Rubella an tibody, IgG Lab Routine Missed menses , unspecified gestational age Ordered: 03/11/[address] [facility] Comment on above: Ordered: 03/11/2024 Immunizations Immunization Date Immunization Notes Care Provider Marcos riley 09-13-2023 measles, mumps and rubella virus vaccine Karen Bolanos MD Work Phone: [facility] 06-15-2023 influenza, injectable, quadrivalent, contains preservative Karen Bolanos MD Work Phone: [facility] 06-15-2023 influenza virus vaccine, unspecified formulation Andressa Abraham WON Work Phone: [facility] 08-17-2020 SARS-CoV-2 (COVID-19 ) mRNA-1273 vaccine [facility] 07-20-2020 SARS-CoV-2 (COVID-19 ) mRNA-1273 vaccine [facility] 12-10-2016 influenza virus vaccine, unspecified formulation [facility] 12-10-2016 influenza, injectable, quadrivalent, preservative free Karen Bolanos MD Work Phone: [facility] 02-16-2009 novel [id number], preservative-free, injectable Karen Bolanos MD Work Phone: [facility] 12-08-2003 hepatitis B vaccine, pediatric or pediatric/adolescent dosage TIARRA KATZ [facility] 12-08-2003 measles, mumps and rubella virus vaccine TIARRA KATZ [facility] 12-08-2003 tetanus toxoid, adsorbed Karen Bolanos MD Work Phone: [facility] 10-27-1996 measles, mumps and rubella virus vaccine TIARRA KATZ [facility] 02-08-1993 diphtheria, tetanus toxoids and acellular pertussis vaccine Karen Bolanos MD Work Phone: [facility] 02-08-1993 diphtheria, tetanus toxoids and acellular pertussis vaccine, unspecified formulation Karen Bolanos MD Work Phone: [facility] 02-08-1993 DTaP, unspecified formulation [facility] 02-08-1993 haemophilus influenzae type b vaccine, conjugate unspecified formulation Karen Bolanos MD Work Phone: [facility] 02-08-1993 haemophilus influenzae type b vaccine, HbOC conjugate Karen Bolanos MD Work Phone: [facility] 02-08-1993 Hib, unspecified formulation [facility] 02-08-1993 poliovirus vaccine, unspecified formulation Karen Bolanos MD Work Phone: [facility] 02-07-1992 diphtheria, tetanus toxoids and acellular pertussis vaccine Karen Bolanos MD Work Phone: [facility] 02-07-1992 diphtheria, tetanus toxoids and acellular pertussis vaccine, unspecified formulation Karen Bolanos MD Work Phone: [facility] 02-07-1992 DTaP, unspecified formulation [facility] 02-07-1992 haemophilus influenzae type b vaccine, conjugate unspecified formulation Karen Bolanos MD Work Phone: [facility] 02-07-1992 haemophilus influenzae type b vaccine, HbOC conjugate Karen Bolanos MD Work Phone: [facility] 02-07-1992 Hib, unspecified formulation [facility] 1991 diphtheria, tetanus toxoids and acellular pertussis vaccine Karen Bolanos MD Work Phone: [facility] 1991 diphtheria, tetanus toxoids and acellular pertussis vaccine, unspecified formulation Karen Bolanos MD Work Phone: [facility] 1991 DTaP, unspecified formulation TIARRA KATZ [facility] 1991 haemophilus influenzae type b vaccine, conjugate unspecified formulation Karen Bolanos MD Work Phone: [facility] 1991 haemophilus influenzae type b vaccine, HbOC conjugate Karen Bolanos MD Work Phone: [facility] 1991 Hib, unspecified formulation TIARRA KATZ [facility] 1991 poliovirus vaccine, unspecified formulation Karen Bolanos MD Work Phone: [facility] 1991 diphtheria, tetanus toxoids and acellular pertussis vaccine Karen Bolanos MD Work Phone: [facility] 1991 diphtheria, tetanus toxoids and acellular pertussis vaccine, unspecified formulation Karen Bolanos MD Work Phone: [facility] 1991 DTaP, unspecified formulation TIARRA KATZ [facility] 1991 haemophilus influenzae type b vaccine, conjugate unspecified formulation Karen Bolanos MD Work Phone: [facility] 1991 haemophilus influenzae type b vaccine, HbOC conjugate Karen Bolanos MD Work Phone: [facility] 1991 Hib, unspecified formulation TIARAR KATZ [facility] 1991 poliovirus vaccine, unspecified formulation Karen Bolanos MD Work Phone: [facility] NEGATED: Highlighted row has not occurred!03-16-2023 influenza virus vaccine, unspecified formulation TIARRA KATZ [facility] Payers Date Payer Category Payer [facility] BCBS [id number] 2022 Unknown 2022 Unknown [id number] 2022 Unknown [id number] 1991 Unknown [id number] 1991 Unknown [id number]. 2. 1991 Unknown [id number]. 2. 1991 Unknown [id number]. 2. 1991 Unknown [id number] [id number] 1991 Unknown [id number] [id number] 1991 Unknown [id number] [id number] 1991 Unknown [id number] [id number] 1959 Unknown [id number] Unknown [id number] Social History Date Type Detail Facility [facility] Tobacco smoking consumption unknown [facility] Start: 11-11-2022 End: 03-16-2023 Tobacco smoking status Never smoked tobacco (finding) [facility] Tobacco smoking status Never [facility] Start: 06-08-2023 End: 12-28-2023 Sex Assigned At Female [facility] Start: 04-12-2012 End: 11-11-2022 Tobacco use and exposure Smokeless tobacco non-user [facility] Start: 06-08-2023 End: 03-11-2024 Alcohol intake Current drinker of alcohol (finding) [facility] Start: 06-08-2023 End: 12-28-2023 History of Social function [facility] Start: 04-12-2012 Alcohol Comment social [facility] Start: [facility] Sex Assigned At Not on file [facility] Start: 1991 [facility] Start: 06-11-2022 Gender identity Identifies as female gender (finding) [facility] Start: 01-12-2023 Sexual orientation Homosexual (findi ng) [facility] Start: 11-10-2022 Alcohol Comment 1-2 drinks les s than monthly in the past year, Caffeine intake: 1-2 cups per day [facility] Start: 01-02-2024 [facility] Goals Date Patient Goal Desired Activity /State Personal health goal Functional Status Date Assessment Result Facility 02-28-2024 Functional Status N/A [facility] 03-16-2023 Functional Status N/A [facility] Clinical Notes 03-16-2023 to 03-11-2024 Jacqui Ferguson LPN - 03/11/2024 10:30 AM Vidhya Scott APRN.PANEL LAY UP WORKER - 02/09/2024 12:27 PM Parth Garcia MD - 02/09/2024 11:28 AM Andressa Varner APRN.PANEL LAY UP WORKER - 01/20/2024 9:03 AM EDT Note [...] or undercooked meat, and stay away from [facility]. Patient has also been advised to not [...] Jacqui Ferguson LPN documented in this encounter [facility] 02-28-2024 Hospital Discharg e instructions Patient Education [...] Centers for Disease Control and Prevention: cdc.gov [place] [employer]: heart.org National Heart, Lung, and Blood [place]: nhlbi.nih.gov This information is not intended to replace advice given to you by your health care provider. Make sure you discuss any questions you have with your health care provider. Document Revised: 12/04/2022 Document Reviewed: 11/27/2022 [employer] Patient Education 2023 [employer]istle[employer]uk. 02/28/2024 09:57:52 Otitis Media, Adult, Bskn-ub-Lbzl Otitis Media, Adult Otitis media is a [...] pain. Follow these instructions at home: Take ygpr-rna-gwpxssm and prescription medicines only as told by [...] provider. Document Revised: 06/24/2021 Document Reviewed: 06/24/2021 [employer] Patient Education 2023 [employer]uk. Follow Up Care 02/28/2024 08:48:51 With:Karen Bolanos MD Address: [address] [place] [address]- When: Unknown [facility] 02-28-2024 Note Patient Education ENT [...] Follow these instructions at home: ??? Take aljq-fac-uphfied and prescription medicines only as told by [...] provider. Document Revised: 06/24/2021 Document Reviewed: 06/24/2021 [employer] Patient Education ? 2023 [employer]istle[employer]uk. Nutrition BMI for Adults Body mass index [...] (Inserted Image. Un (more content not included)... [facility] 02-09-2024 Note HNO ID: [id number] Author: VIDHYA PITT APRN.PANEL LAY UP WORKER Service: ? Author Type: Nurse Practitioner [...] Plan Move on to OB Vidhya Pitt APRN.PANEL LAY UP WORKER February 09, 2024 12:[address] [facility] 02-09-2024 History of Presen t illness [...] Parth Clark MD documented in this encounter [facility] 02-09-2024 Note HNO ID: [id number] Author: PARTH CLARK MD Service: ? Author Type: Physician Type: Progress Notes Filed: 02/09/2024 11:28 Note Text: Scan Visit Patient here for scan. See imaging documentation. Parth Clark MD [facility] 01-20-2024 Note HNO ID: [id number] Author: ANDRESSA ABRAHAM APRN.CNP Service: ? Author [...] visit. Either the patient or their legal sales representative publications has been informed of the risks and [...] with OB: 02/14 or 02/21 Andressa Abraham APRN.PANEL LAY UP WORKER January 20, 2024 9:03 AM Please [...] which included preparing to see the patient, dumf-mq-kjgz patient care, completing clinical documentation, obtaining and/or [...] grammatical and typographical errors missed in proofreading. [facility] 01-20-2024 History of Presen t illness [...] visit. Either the patient or their legal sales representative publications has been informed of the risks and [...] which included preparing to see the patient, yknm-ym-weky patient care, completing clinical documentation, obtaining and/or [...] missed in proofreading. documented in this encounter [facility] 01-18-2024 Telephone encounter Note Patient calls [...] Yoo PA-C January 18, 2024 4:02 PM [facility] 01-18-2024 Miscellaneous Notes Patient calls with [...] regarding next steps. documented in this encounter [facility] 01-18-2024 Telephone encounter Note Please call patient back regarding next steps. [facility] Work Phone: 01-02-2024 Note HNO ID: [id number] Author: FLAVIA ELIZONDO, ? Service: ? Author Type: Mosquito Sprayer Type: Progress Notes Filed: 01/02/2024 11:47 Note Text: Thaw for IUI Flavia Guaman Jameseleazar [facility] 01-02-2024 History of Presen t illness Narrative Thaw for IUI Flavia Ramirezeleazar documented in this encounter [facility] 01-02-2024 Note HNO ID: [id number] Author: FLAVIA ELIZONDO, ? Service: ? Author Type: Mosquito Sprayer Type: Progress Notes Filed: 01/02/2024 11:46 Note Text: IUI Xytex #: [id number] Washed frozen specimen Post: 122 m/ml, 63% Insem#: 34.[address] [facility] 01-02-2024 History of Presen t illness Narrative IUI Xytex #: [id number] Washed frozen specimen Post: 122 m/ml, 63% Insem#: 34.7 million IUI specimen released to provider Flavia Elizondo January 02, 2024 11:23 AM documented in this encounter [facility] 01-02-2024 Note HNO ID: [id number] Author: ANYI GANT MD Service: ? Author [...] Cycle Day: 15 Last menstrual period: 12/19/2023 Obion Protocol: UNIVERSAL PROTOCOL / SAFETY CHECKLIST Procedure [...] discussed with the Patient or Patient's Authorized Hvac Tech. As applicable, any other physician, advance practice provider, medical student, or other health professional student that will be observing or involved in the sensitive examination for educational or training purposes was discussed with the Patient or Authorized Hvac Tech. The Patient or Authorized Hvac Tech has agreed to proceed with the sensitive examination. (Sensitive examination includes inspection and/or palpation of the breasts, pelvis, prostate and anorectal regions) Patient declined ground equipment mechanic. IUI IUI Date: 01/02/24 Partner's Name: Wanda [...] Anyi Gant M.D. Reproductive Endocrinology and Infertility [facility] 01-02-2024 Procedure note WHI SARMAD IUI PROCEDURE NOTE Date: 01/02/2024 Primary Proceduralist: Uma Aguilera MD Consents and Labels Consent Signed: Informed Consent obtained and on the chart Labels Verified With Patient: Yes Indications: Nelli Carpenter, is a 33 year old female here today for intrauterine insemination. IUI # 2. Cycle Day: 15 Last menstrual period: 12/19/2023 Obion Protocol: UNIVERSAL PROTOCOL / SAFETY CHECKLIST Procedure [...] discussed with the Patient or Patient's Authorized Hvac Tech. As applicable, any other physician, advance practice provider, medical student, or other health professional student that will be observing or involved in the sensitive examination for educational or training purposes was discussed with the Patient or Authorized Hvac Tech. The Patient or Authorized Hvac Tech has agreed to proceed with the sensitive examination. (Sensitive examination includes inspection and/or palpation of the breasts, pelvis, prostate and anorectal regions) Patient declined ground equipment mechanic. IUI IUI Date: 01/02/24 Partner's Name: Wanda [...] Anyi Gant M.D. Reproductive Endocrinology and Infertility [facility] Work Phone: 01-02-2024 Procedure note WHI SARMAD IUI PROCEDURE NOTE Date: 01/02/2024 Primary Proceduralist: Uma Aguilera MD Consents and Labels Consent Signed: Informed Consent obtained and on the chart Labels Verified With Patient: Yes Indications: Nelli Carpenter, is a 33 year old female here today for intrauterine insemination. IUI # 2. Cycle Day: 15 Last menstrual period: 12/19/2023 [place] Protocol: UNIVERSAL PROTOCOL / SAFETY CHECKLIST Procedure [...] discussed with the Patient or Patient's Authorized Hvac Tech. As applicable, any other physician, advance practice provider, medical student, or other health professional student that will be observing or involved in the sensitive examination for educational or training purposes was discussed with the Patient or Authorized Hvac Tech. The Patient or Authorized Hvac Tech has agreed to proceed with the sensitive examination. (Sensitive examination includes inspection and/or palpation of the breasts, pelvis, prostate and anorectal regions) Patient declined ground equipment mechanic. IUI IUI Date: 01/02/24 Partner's Name: Wanda [...] Endocrinology and Infertility documented in this encounter [facility] 01-02-2024 Note HNO ID: [id number] Author: FLAVIA ELIZONDO, ? Service: ? Author Type: Mosquito Sprayer Type: Progress Notes Filed: 01/02/2024 11:46 Note Text: IUI specimen released to provider Flavia Elziondo January 02, 2024 11:[address] [facility] 12-28-2023 History of Presen t illness [...] to monitor weight documented in this encounter [facility] 12-05-2023 Note HNO ID: [id number] Author: STEPHANIE LARA, ? Service: ? Author Type: ? Type: Progress Notes Filed: 12/06/2023 08:45 Note Text: IUI Xytex #[id number] Frozen washed specimen Post: 145 Million/mL, 68% Insem #: [address] [facility] 12-05-2023 History of Presen t illness Narrative IUI Xytex #[id number] Frozen washed specimen Post: 145 Million/mL, 68% Insem #: 49 Million IUI specimen released to provider Stephanie Lara December 05, 2023 10:19 AM documented in this encounter [facility] 12-05-2023 Note HNO ID: [id number] Author: MYRIAM DOMINGUEZ MD Service: ? Author [...] Cycle Day: 15 Last menstrual period: 11/21/2023 [place] Protocol: UNIVERSAL PROTOCOL / SAFETY CHECKLIST Procedure [...] EMERGENT procedures): No specimen collected. Patient declined ground equipment mechanic. Uma Aguilera MD IUI IUI Date: 12/05/23 [...] after wash): 49 million Donor ID #: [id number] Cycle reviewed, all questions answered. Pt instructed to take a test in 17 days if no menses and call with results. SIGNATURE: Uma Aguilera MD PATIENT NAME: Nelli Carpenter DATE: December 05, 2023 TIME: 10:31 AM I was present and immediately available for the entire procedure. Patient underwent an intrauterine insemination. Myriam Dominguez MD, TRUDY [facility] 12-05-2023 Procedure note WHI SARMAD IUI PROCEDURE NOTE Date: 12/05/2023 Primary Proceduralist: Uma Aguilera MD Consents and Labels Consent Signed: Informed Consent obtained and on the chart Labels Verified With Patient: Yes Indications: Nelli Carpenter, is a 33 year old female here today for intrauterine insemination. IUI # 1. Cycle Day: 15 Last menstrual period: 11/21/2023 [place] Protocol: UNIVERSAL PROTOCOL / SAFETY CHECKLIST Procedure [...] EMERGENT procedures): No specimen collected. Patient declined ground equipment mechanic. Uma Aguilera MD IUI IUI Date: 12/05/23 [...] after wash): 49 million Donor ID #: [id number] Cycle reviewed, all questions answered. Pt instructed to take a test in 17 days if no menses and call with results. SIGNATURE: Uma Aguilera MD PATIENT NAME: Nelli Carpenter DATE: December 05, 2023 TIME: 10:31 AM I was present and immediately available for the entire procedure. Patient underwent an intrauterine insemination. Myriam Dominguez MD, TRUDY [facility] Work Phone: 12-05-2023 Procedure note WHI SARMAD IUI PROCEDURE NOTE Date: 12/05/2023 Primary Proceduralist: Uma Aguilera MD Consents and Labels Consent Signed: Informed Consent obtained and on the chart Labels Verified With Patient: Yes Indications: Nelli Carpenter, is a 33 year old female here today for intrauterine insemination. IUI # 1. Cycle Day: 15 Last menstrual period: 11/21/2023 [place] Protocol: UNIVERSAL PROTOCOL / SAFETY CHECKLIST Procedure [...] EMERGENT procedures): No specimen collected. Patient declined ground equipment mechanic. Uma Aguilera MD IUI IUI Date: 12/05/23 [...] after wash): 49 million Donor ID #: [id number] Cycle reviewed, all questions answered. Pt instructed to take a test in 17 days if no menses and call with results. SIGNATURE: Uma Aguilera MD PATIENT NAME: Nelli Carpenter DATE: December 05, 2023 TIME: 10:31 AM I was present and immediately available for the entire procedure. Patient underwent an intrauterine insemination. Myriam Dominguez MD, TRUDY documented in this encounter [facility] 12-05-2023 History of Presen t illness Narrative Thaw for IUI Stephanie Lara documented in this encounter [facility] 12-05-2023 Note HNO ID: [id number] Author: MARCO STEPHANIE, ? Service: ? Author Type: ? Type: Progress Notes Filed: 12/05/2023 10:23 Note Text: Thaw for IUI Stephanie Lara [facility] 12-05-2023 Note HNO ID: [id number] Author: STEPHANIE LARA, ? Service: ? Author Type: ? Type: Progress Notes Filed: 12/06/2023 08:45 Note Text: IUI specimen released to provider Stephanie Marco December 05, 2023 10:[address] 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 Tubal Patency Testing: defer for now Sperm Source:Donor Frozen Treatment Protocol: Natural Cycle Monitoring Plan: OPKs Ovidrel Trigger: No Supplemental Progesterone: None Comments: None Andressa Abraham APRN.CNP 11/23/2023 documented in this encounter [facility] 11-23-2023 Instructions Andressa Abraham APRN.CNP - [...] day of your period and let the desktop specialist know you will be doing donor sperm [...] of your menstrual cycle to let the desktop specialist know you will be testing and doing [...] please call the office to discuss. Location [address], [place] [address] Available every day, including weekends and holidays (except Lauren and New Years.) Weekday IUI scheduling The day you get your LH surge, please call [phone] between 8:00am - 12:00pm to schedule your insemination for the next day. If you call after 12pm, we may not be able to schedule your appointment. IUI s are done by appointment only. You will make 2 appointments - an arrival time and an IUI time. Donor sperm IUI is available at the following location: [address], [address] [place] [address] Available every day, including weekends and holidays (except [place] and New Years.) Available for IUI using fresh and frozen samples. Check in location for sperm wash and IUI: [address] [facility]. The sperm wash takes 60-90 minutes. Weekend/Holiday [...] want to do another IUI: Call the desktop specialist to make sure you are financially cleared. Ask to speak to an NELLY to confirm your treatment plan. Important phone number: [phone] documented in this encounter [facility] 11-23-2023 Note HNO ID: [id number] Author: ANDRESSA ABRAHAM APRN.CNP Service: ? Author [...] visit. 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 Reviewed IUI scheduling and IUI procedure. Plan: natural cycle IUI-D timed with OPK. Sign IUI consent at earliest convenience. Andressa Abraham APRN.CNP November 23, 2023 9:09 AM I spent a total of 25 minutes on the date of the service which included preparing to see the patient, mxzq-py-lfke patient care, completing clinical documentation, obtaining and/or [...] grammatical and typographical errors missed in proofreading. [facility] 11-23-2023 History of Presen t illness [...] visit. 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 Reviewed IUI scheduling and IUI procedure. Plan: natural cycle IUI-D timed with OPK. Sign IUI consent at earliest convenience. Andressa Abraham APRN.PANEL LAY UP WORKER November 23, 2023 9:09 AM I spent a total of 25 minutes on the date of the service which included preparing to see the patient, opuc-le-vnkd patient care, completing clinical documentation, obtaining and/or [...] missed in proofreading. documented in this encounter [facility] 10-12-2023 Telephone encounter Note Called the patient she verified her name and date of patient is doing practice cycle Patient had peak on her opk 10-10-23 last period 09-27-23 Needs progesterone order I advised she goes in 6-8 days from positive opk not on fertility meds Laura Roque RN October 12, 2023 12:54 PM [facility] 10-12-2023 Miscellaneous Notes Called the patient [...] up with Wanda. documented in this encounter [facility] 10-12-2023 Telephone encounter Note Partner Wanda calling re +ov need to schedule progesterone test for Nelli when to have it done. Please follow up with Wanda. [facility] Work Phone: 09-11-2023 Instructions Andressa Abraham [...] sample yourself and arranging for shipment to [facility]. [facility] [employer] [facility] [place] [facility] [place] [facility] [place] [place] [facility] Let us [...] (with a backup), please send me a [employer] message titled Sperm Donor Choice. Include the [...] the office. Mailing address: Attention: Flavia Elizondo [address] [place] [address], [address] [place] [address] Storage at the [facility] is available. Fees are yearly and only start once you are not actively trying. Please ask the financial team ([phone]) for current cost information. Insurance Authorization/Financial Clearance [...] day of your period and let the desktop specialist know you will be doing donor sperm insemination. The financial office will contact you to collect payment early in your cycle. You will not be able to schedule an IUI unless you have made payment. We want to help make your experience as smooth as possible. Please do not hesitate to call if you should have any questions. Contact documented in this encounter [facility] 09-11-2023 Note HNO ID: [id number] Author: ANDRESSA ABRAHAM APRN.CNP Service: ? Author [...] favorite donors - send to me via [employer] to confirm Confirmed best vial type to order: IUI/prewashed Will need to follow up to firm up treatment plan and review IUI scheduling instructions. Andressa Abraham APRN.PANEL LAY UP WORKER September 11, 2023 8:08 AM I spent a total of 50 minutes on the date of the service which included preparing to see the patient, copo-gj-obwt patient care, completing clinical documentation, obtaining and/or [...] may be gramma (more content not included)... [facility] 09-11-2023 History of Presen t illness [...] favorite donors - send to me via [employer] to confirm Confirmed best vial type to order: IUI/prewashed Will need to follow up to firm up treatment plan and review IUI scheduling instructions. Andressa Abraham APRN.PANEL LAY UP WORKER September 11, 2023 8:08 AM I spent a total of 50 minutes on the date of the service which included preparing to see the patient, evpg-zy-ypws patient care, completing clinical documentation, obtaining and/or [...] missed in proofreading. documented in this encounter [facility] 07-28-2023 Telephone encounter Note Sheyla labs [...] follow up once checklist is complete. sent [employer] message. Andressa Abraham APRN.CNP July 28, 2023 12:27 PM [facility] 07-28-2023 Miscellaneous Notes Sheyla labs are [...] follow up once checklist is complete. sent [employer] message. Andressa Abraham APRN.CNP July 28, 2023 12:27 PM Please follow up with patient completed bloodwork today, next steps after labwork. documented in this encounter [facility] 07-28-2023 Telephone encounter Note Please follow up with patient completed bloodwork today, next steps after labwork. [facility] Work Phone: 06-15-2023 Note HNO ID: [id number] Author: ANDRESSA ABRAHAM APRN.LEXUS Service: ? Author [...] and birthday verified: Yes Location of patient: [place] Persons Present: patient and patient's spouse/significant other I have communicated my name and active licensure. The patient's identity and physical location were verified at the time of this visit. Either the patient or their legal sales representative publications has been informed of the risks and [...] in 2016 and a section in 2017 [facility] area with. The was because of [...] test results and next steps. Andressa Abraham APRN.PANEL LAY UP WORKER June 15, 2023 4:06 PM I spent a total of 40 minutes on the date of the service which included preparing to see the patient, nqsu-yi-pkio patient care, completing clinical documentation, obtaining and/or [...] grammatical and typographical errors missed in proofreading. [facility] 06-15-2023 History of Presen t illness Narrative Images from the original note were not included. [facility]OCRINOLOG[facility] INFERTILITY DONOR SPERM TEACH SERVICE DATE: 06/15/2023 SERVICE TIME: 4:06 PM NAME: Nelli Carpenter VIRTUAL VISIT PROGRESS NOTE This is a virtual visit. It required patient-provider interaction for the medical decision making as documented below. Patient name and birthday verified: Yes Location of patient: [place] Persons Present: patient and patient's spouse/significant other I have communicated my name and active licensure. The patient's identity and physical location were verified at the time of this visit. Either the patient or their legal sales representative publications has been informed of the risks and [...] in 2016 and a section in 2017 [facility] area with. The was because of [...] test results and next steps. Andressa Abraham APRN.PANEL LAY UP WORKER June 15, 2023 4:06 PM I spent a total of 40 minutes on the date of the service which included preparing to see the patient, aokf-na-sdpd patient care, completing clinical documentation, obtaining and/or [...] missed in proofreading. documented in this encounter [facility] 06-08-2023 Instructions Rahul Zheng MD - 06/08/2023 10:26 AM EDT Images from the original note were not included. Obstetrics and Gynecology [facility] Intrauterine Insemination Scheduling Instructions Please [...] you get your LH surge, please call [phone] between 8:00am - 12:00pm to schedule your insemination for the next day. If you call after 12pm, we may not be able to schedule your appointment. IUI s are done by appointment only. You will make 2 appointments - one for sperm drop off/collection, and one for the insemination. If you are using a frozen sample, please tell the installations inspector this. You will get an arrival time and an IUI time. IUI is available at the following locations: [place]: [address] , [place] [address] Weekday availability is limited depending on staffing. Not available on weekends. Not available for those with frozen sperm. Check in location for sperm wash and IUI: 2nd floor, room 208. The sperm wash takes 60-90 minutes. [place]: [address], [place] [address] Weekday availability is limited depending on staffing. Not available on weekends. Not available for those with frozen sperm. Check in location for sperm wash: the 2nd floor Urology/Andrology. The sperm wash takes 60-90 minutes. They will tell you what time to pickling tank operator the sample. Check in location for IUI: 3rd floor OB Specialties Desk. (You will have to pickling tank operator the sample from 2nd floor Urology and bring it with you.) [place]: [address] [facility], [address] [place] [address] Available every day, including weekends and holidays (except [place] and New Years.) Available for IUI using fresh and frozen samples. Check in location for sperm wash and IUI: [address] [facility]. The sperm wash takes 60-90 minutes. Weekend/Holiday [...] want to do another IUI: Call the desktop specialist to make sure you are financially cleared. Ask to speak to an NELLY to confirm your treatment plan. Important phone number: [phone] documented in this encounter [facility] 06-08-2023 Note HNO ID: [id number] Author: RAHUL ZHENG MD Service: ? Author [...] visit. Either the patient or their legal sales representative publications has been informed of the risks and [...] in 2016 and a section in 2017 [facility] area with. The was because of placenta previa at 37 weeks. She had no postoperative complications. After her delivery she had an IUD which had to be removed by hysteroscopy. She is otherwise healthy except for abnormal weight gain for which she has been prescribed Wegovy. She is a non-smoker. 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 [facility] 06-08-2023 History of Presen t illness [...] visit. Either the patient or their legal sales representative publications has been informed of the risks and [...] been prescribed Wegovy. She is a non-smoker. 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 documented in this encounter [facility] 03-16-2023 Hospital Discharg e instructions Patient Education 03/16/2023 16:12:49 Wrist Pain, Adult, Wcrz-sw-Rqvw Wrist Pain, Adult There are many things [...] to any changes in your symptoms. Take togg-clu-hzvwlyl and prescription medicines only as told by [...] provider. Document Revised: 02/02/2020 Document Reviewed: 02/02/2020 [employer] Patient Education 2022 [employer] [facility] Evaluation + Plan note No data available for this section [facility] Evaluation note Diagnosis Procreative management counseling- Primary Other procreative management counseling and advice BMI 34.0-34.9,adult Body Mass Index 34.0-34.9, adult documented in this encounter [facility] note* Diagnosis Encounter for fertility planning- Primary Other specified procreative management Encounter for other genetic testing of female for procreative management documented in this encounter [facility] note* Diagnosis Treatment plan provided- Primary documented in this encounter [facility] note* Diagnosis Encounter for fertility planning- Primary Other specified procreative management documented in this encounter [facility] note* Diagnosis Procreation management investigation and testing- Primary Other investigation and testing for procreative management documented in this encounter [facility] note* Diagnosis Female infertility- Primary Female infertility of unspecified origin documented in this encounter [facility] note* Diagnosis Reproductive mgmt, infertility due to male factor- Primary Female infertility of other specified origin documented in this encounter [facility] note* Diagnosis Procreative management- Primary Unspecified procreative management documented in this encounter [facility] note* Diagnosis Female infertility- Primary Female infertility of unspecified origin documented in this encounter [facility] note* Diagnosis Encounter for artificial insemination- Primary Artificial insemination documented in this encounter [facility] note* Diagnosis Encounter for test, result positive- Primary examination or test, positive result documented in this encounter [facility] note* Diagnosis resulting from assisted reproductive technology in first trimester- Primary documented in this encounter [facility] note* Diagnosis resulting from assisted reproductive technology in first trimester documented in this encounter [facility] note* Diagnosis Treatment plan provided- Primary documented in this encounter [facility] note* Diagnosis Missed menses , unspecified gestational age Encounter for supervision of normal first in first trimester [facility] Infertility, female- Primary BMI 37.0-37.9, adult Morbid obesity (CMS/HCC) Morbid obesity documented in this encounter [facility] Dis[facility] instructions No data available for this section [facility] No data available for this section [facility] Reason for referral (narrative)* Diagnostic Procedure Only (Routine) - Open Specialty Diagnoses / Procedures Referred By Contac t Referred To Contact [facility] Diagnoses resulting from assisted reproductive technology in first trimester Procedures OBSTETRIC ULTRASOUND WHI US PREG UTERUS AFTER 1ST TRIMEST GESTATION Andressa Abraham APRN.CNP [id number] [place] [address] [facility] [address] [place] [address] Referral ID Status Reason Start Date Expiration Date V isits Requested Visits Authorized [id number] Open Auto-Generate d Referral 01/20/2024 01/19/2025 1 1 [facility] for visit Narrative* Diagnostic Procedure Only (Routine) - Closed Specialty Diagnoses / Procedures Referred By Contac t Referred To Contact [facility] Diagnoses resulting from assisted reproductive technology in first trimester Procedures OBSTETRIC ULTRASOUND WHI US PREG UTERUS AFTER 1ST TRIMEST GESTATION Andressa Abraham APRN.PANEL LAY UP WORKER [address] [place] [id number] [facility] [address] [place] [address] Referral ID Status Reason Start Date Expiration Date V isits Requested Visits Authorized [id number] Closed Auto-Generate d Referral 01/27/2024 03/29/2024 1 1 [facility] Summary Purpose Family History No Family [...] Obstetrics and Gynecology Diagnoses Infertility, female Procedures [place] OFFICE/OUTPATIENT NEW HIGH MDM 60 MINUTES Karen Bolanos MD [address] [place] [address] Patsy Blanco, DO [address] [facility] [address] [place] [address] Referral ID Status Reason Start Date Expiration Date Visits Requested Visits Authorized [id number] Pending Review Specialty Services Required 12/28/2023 06/25/2024 1 1 Additional Source Comments INFORMATION SOURCE (unrecogn ized section and content) DATE CREATED AUTHOR 09/21/2017 [facility] DATE CREATED AUTHOR AUTHOR'S ORGANIZ ATION 03/12/2021 [facility] DATE CREATED AUTHOR AUTHOR'S ORGANIZ ATION 03/16/2021 [facility] DATE CREATED AUTHOR AUTHOR'S ORGANIZ ATION 03/26/2022 [facility] DATE CREATED AUTHOR AUTHOR'S ORGANIZ ATION 02/15/[address] [facility] DATE CREATED AUTHOR AUTHOR'S ORGANIZ ATION 02/29/2024 [facility] DATE CREATED AUTHOR AUTHOR'S ORGANIZ ATION 03/13/2024 [facility] EPIC <item> Privacy Markings (unrecogniz ed section and content) Section Author: Smita Tello PROHIBITION ON REDISCLOSURE OF CONFIDENTIAL INFORMATION This notice accompanies a disclosure of information concerning a client made to you with the consent of such client. Patient Care team informatio n (unrecognized section and content) Layer Out Plate Glass Relationship Specialty Start Date End Date Karen Bolanos MD [address] [address] [place] [address] PCP - General Family Medicine 11/10/22 Karen Bolanos MD [address] [place] [address] PCP - [place] [employer] 12/28/22 Layer [employer] Plate [employer] Relationship Specialty Start Date End Date Karen Bolanos MD [address] [place] [address] PCP - General Family Medicine 11/10/22 Karen Bolanos MD [address] [place] [address] PCP - [place] [employer] 12/28/22 Layer [employer] Relationship Specialty Start Date End Date Karen Bolanos MD [address] [place] [address] PCP - General Family Medicine 11/10/22 Layer Out Plate Glass Relationship Specialty Start Date End Date Karen Bolanos MD [address] [place] [address] PCP - General Family Medicine 11/10/22 Source Comments (unrecognize d section and content) In the event this informatio n is protected by the Federal Confidentiality of Alcohol and Drug Abuse Patient Records regulations: The Federal rules restrict any use of the information to criminally investigate or prosecute any alcohol or drug abuse patient.[facility] the event this information is protected by the Federal Confidentiality of Alcohol and Drug Abuse Patient Records regulations: The Federal rules restrict any use of the information to criminally investigate or prosecute any alcohol or drug abuse patient.[facility] the event this information is protected by the Federal Confidentiality of Alcohol and Drug Abuse Patient Records regulations: The Federal rules restrict any use of the information to criminally investigate or prosecute any alcohol or drug abuse patient.[facility] the event this information is protected by the Federal Confidentiality of Alcohol and Drug Abuse Patient Records regulations: The Federal rules restrict any use of the information to criminally investigate or prosecute any alcohol or drug abuse patient.[facility] the event this information is protected by the Federal Confidentiality of Alcohol and Drug Abuse Patient Records regulations: The Federal rules restrict any use of the information to criminally investigate or prosecute any alcohol or drug abuse patient.[facility] the event this information is protected by the Federal Confidentiality of Alcohol and Drug Abuse Patient Records regulations: The Federal rules restrict any use of the information to criminally investigate or prosecute any alcohol or drug abuse patient.[facility] the event this information is protected by the Federal Confidentiality of Alcohol and Drug Abuse Patient Records regulations: The Federal rules restrict any use of the information to criminally investigate or prosecute any alcohol or drug abuse patient.[facility] the event this information is protected by the Federal Confidentiality of Alcohol and Drug Abuse Patient Records regulations: The Federal rules restrict any use of the information to criminally investigate or prosecute any alcohol or drug abuse patient.[facility] the event this information is protected by the Federal Confidentiality of Alcohol and Drug Abuse Patient Records regulations: The Federal rules restrict any use of the information to criminally investigate or prosecute any alcohol or drug abuse patient.[facility] the event this information is protected by the Federal Confidentiality of Alcohol and Drug Abuse Patient Records regulations: The Federal rules restrict any use of the information to criminally investigate or prosecute any alcohol or drug abuse patient.[facility] the event this information is protected by the Federal Confidentiality of Alcohol and Drug Abuse Patient Records regulations: The Federal rules restrict any use of the information to criminally investigate or prosecute any alcohol or drug abuse patient.[facility] the event this information is protected by the Federal Confidentiality of Alcohol and Drug Abuse Patient Records regulations: The Federal rules restrict any use of the information to criminally investigate or prosecute any alcohol or drug abuse patient.[facility]In the event this information is protected by the Federal Confidentiality of Alcohol and Drug Abuse Patient Records regulations: The Federal rules restrict any use of the information to criminally investigate or prosecute any alcohol or drug abuse patient.[facility] the event this information is protected by the Federal Confidentiality of Alcohol and Drug Abuse Patient Records regulations: The Federal rules restrict any use of the information to criminally investigate or prosecute any alcohol or drug abuse patient.[facility] the event this information is protected by the Federal Confidentiality of Alcohol and Drug Abuse Patient Records regulations: The Federal rules restrict any use of the information to criminally investigate or prosecute any alcohol or drug abuse patient.[facility]In the event this information is protected by the Federal Confidentiality of Alcohol and Drug Abuse Patient Records regulations: The Federal rules restrict any use of the information to criminally investigate or prosecute any alcohol or drug abuse patient.[facility]In the event this information is protected by the Federal Confidentiality of Alcohol and Drug Abuse Patient Records regulations: The Federal rules restrict any use of the information to criminally investigate or prosecute any alcohol or drug abuse patient.[facility] Reason for Visit (unrecogniz ed section [...] EACH ALIQUOT ARTIFIC INSEMINATION INTRAUTERIN Andressa Abraham APRN.PANEL LAY UP WORKER [id number] [place] [address] [facility] [address] [place] [address] Referral ID Status Reason Start Date Expiration Date V isits Requested Visits Authorized [id number] Closed Financial Clearance Required - Self Pay [...] THAWING CRYOPRESERVED SPERM/SEMEN EACH ALIQUOT Andressa Abraham APRN.PANEL LAY UP WORKER [id number] [place], [place] [id number] [facility] [address] [place] [address] Referral ID Status Reason Start Date Expiration Date V isits Requested Visits Authorized [id number] Closed Patient Cleared - True Self-Pay required [...] BE BASED ON THE PRIMARY CLINICAL RECORDS. [facility]. provides no warranty or guarantee of the accuracy or completeness of information in this document.
== END 2024-04-19 00:01 | disposition home or self-care (01) ==
LOC: LAB
PROVIDERS: PCP Student in an Organized Health Care Education/Training Program; Visit Provider Obstetrics & Gynecology
DX: Z01.419 Encounter for gynecological examination (general) (routine) without abnormal findings (principal)
CPT/HCPCS: 87624; 88175

== ENCOUNTER 2024-07-08 10:54 | Outpatient (OUT) | payer BC, SELFPAY ==
[2024-07-08 12:15] LABS: Basophils Percent Auto 0.2 % (0.2-2.0); Eosinophils Absolute Auto 0.1 10^3/uL (0.0-0.7); Eosinophils Percent Auto 0.6 % (0.9-7.0); Hemoglobin 11.1 g/dL (12.0-16.0); Immature Granulocytes Abs Auto 0.15 10^3/uL (0.00-0.03); Immature Granulocytes Pct Auto 1.9 % (0.0-0.5); Lymphocytes Absolute Auto 1.5 10^3/uL (1.2-3.8); Lymphocytes Percent Auto 18.9 % (20.5-60.0); Mean Corpuscular HGB Conc 32.6 g/dL (29.9-35.2); Mean Corpuscular Hemoglobin 28.6 pg (26.7-34.0); Mean Corpuscular Volume 87.6 fL (81.0-99.0); Mean Platelet Volume 10.9 fL (9.5-13.5); Monocytes Absolute Auto 0.4 10^3/uL (0.3-0.8); Monocytes Percent Auto 5.3 % (1.7-12.0); Neutrophils Absolute Auto 5.9 10^3/uL (1.4-6.5); Neutrophils Percent Auto 73.1 % (43.0-75.0); Platelet Count 218 10^3/uL (150-450); Red Blood Count 3.88 10^6/uL (4.20-5.40); Red Cell Distribution Width 13.2 % (11.0-15.0); White Blood Count 8.1 10^3/uL (4.0-11.0)
[2024-07-08 12:17] LABS: Glucose 1 Hour 202 mg/dL (<130)
== END 2024-07-08 10:55 | disposition home or self-care (01) ==
LOC: LAB 10:57
PROVIDERS: PCP Student in an Organized Health Care Education/Training Program; Visit Provider Physician Assistant
DX: Z13.1 Encounter for screening for diabetes mellitus (principal)
CPT/HCPCS: 36415; 82950; 85025

== ENCOUNTER 2024-08-13 13:03 | Outpatient (OUT) | payer BC, SELFPAY ==
--- NOTE | 2024-08-13 | US_ITS ---
The [address] [address] Patient Name: EDUAR CARPENTER MRN: [facility]:[id number] date: 1990 Sex: F Assigned Patient Location: Current Patient Location: Accession/Order Number: [id number] Exam Date: 08/14/2024 09:01 Report Date: 08/14/2024 09:06 At the request of: NINA ALONSO DO Procedure: US OB growth US OB growth 08/13/2024 1:32 PM SIGNS AND SYMPTOMS: ^GESTATIONAL DIABETES MELLITUS O24.419 COMPARISON: None. TECHNIQUE: Limited pelvic ultrasound using transvesical sonography. FINDINGS: An intrauterine is identified. The visualized fetus has an estimated gestational age of 36 weeks and 2 days . A heart rate is identified at 143 bpm. A normal amount of amniotic fluid is present. The amniotic fluid index is 20.16 cm. There is no evidence for placenta previa or subchorionic hemorrhage. Pelvic survey reveals no gross abnormalities. Biophysical profile: movements: 2/2 tone: 2/2 breathing movements: 2/2 Amniotic fluid volume: 2/2 US/US OB growth IMPRESSION: Single live IUP with an estimated gestational age of 36 weeks and 2 days with a normal heart rate. Biophysical profile score: 8/8 Impression dictated by: Gunnar Blake M.D. 08/14/2024 9:06 AM Dictation Location: [place] [address] Electronically authenticated by: [id number] Y Date: 08/14/2024 09:06
--- NOTE | 2024-08-13 | US_ITS ---
The [address] [address] Patient Name: EDUAR CARPENTER MRN: [id number] date: 1990 Sex: F Assigned Patient Location: Current Patient Location: Accession/Order Number: [id number] Exam Date: 08/14/2024 08:54 Report Date: 08/14/2024 09:01 At the request of: NINA ALONSO DO Procedure: US OB BPP w non-stress US OB BPP w non-stress 08/13/2024 1:32 PM SIGNS AND SYMPTOMS: ^GESTATIONAL DIABETES MELLITUS O24.419 COMPARISON: None. TECHNIQUE: Limited pelvic ultrasound using transvesical sonography. FINDINGS: An intrauterine is identified. The visualized fetus has an estimated gestational age of 36 weeks and 2 days . A heart rate is identified at 143 bpm. A normal amount of amniotic fluid is present. The amniotic fluid index is 20.16 cm. There is no evidence for placenta previa or subchorionic hemorrhage. Pelvic survey reveals no gross abnormalities. US/US OB BPP w non-stress IMPRESSION: Single live IUP with an estimated gestational age of 36 weeks and 2 days with a normal heart rate. Impression dictated by: Gunnar Blake M.D. 08/14/2024 9:01 AM Dictation [facility] Electronically authenticated by: [id number] Y Date: 08/14/2024 09:01
--- OUTSIDE RECORDS SUMMARY | 2024-08-13 13:06 | XMS_ITS | CCD ---
Author Organization [facility] Care Team Providers Care Search Engineer Name Role Phone BACEVICE, CHARLIE E Unavailable Unavailable KAFTON, KEITH Unavailable Unavailable BACEVICE, CHARLIE E Unavailable Unavailable BACEVICE, CHARLIE E Unavailable Unavailable KAFTON, KEITH Unavailable Unavailable GREENWOOD, KEITH Unavailable Unavailable GREENWOOD, KEITH Unavailable Unavailable KAFTON, KEITH Unavailable Unavailable GREENWOOD, KEITH Unavailable Unavailable KAFTON, KEITH Unavailable Unavailable GREENWOOD, KEITH Unavailable Unavailable Karen Bolanos Unavailable Fiolmena Zamora Unavailable Unavailable CONNER, DR WOOD Admitting Unavailable CONNER, DR WOOD Attending Unavailable REQUEST, NONE LISTED Primary Care Unavaila armand PRIETO, DR WOOD Consulting Unavailable Karen Bolanos Primary Care Physician [phone] Unavailable Primary Care Provider Unavailjulio cesar e Unavailable Primary Care Provider UnavailTIARRA Jimenez Attending Unavailable TIARRA KATZ Admitting Unavailable TIARRA KATZ Attending Unavailable TIARRA KATZ Attending Unavailable Karen Bolanos MD Primary Care Provider Karen Bolanos MD Unavailable Karen Bolanos MD Primary Care Provider JARAD, ANDRESSA G Referring Unavailable ANGELICAALECY Attending Unavailable JARAD, ANDRESSA G Referring Unavailable JARAD, ANDRESSA G Attending Unavailable SMOLEN, JESSI Referring Unavailable JARAD, ANDRESSA G Attending Unavailable MERTEREZA ROMEDI Referring Unavailable JARAD, ANDRESSA G Referring Unavailable FERN LAMAR Attending Unav ailable SMOLEN, JESSI Referring Unavailable JARAD, ANDRESSA G Attending Unavailable SMOLEN, JESSI Referring Unavailable ANYI GANT Attending Unavailable JARAD, ANDRESSA G Referring Unavailable JARAD, ANDRESSA G Referring Unavailable CONNER, ANDREA Attending Unavailable ANDREA PRIETO Referring Unavailable ANDREA PRIETO Attending Unavailable ANDREA PRIETO Attending Unavailable DINA GERARD Attending Unavailable KAREN BOLANOS Attending Unavailable ANDREA PRIETO Attending Unavailable Medications Current Medications Medication Drug Class(es) Dates Sig (Normalized) Sig (Original) amoxicillin 80 mg/ml oral suspension (1 source) Penicillin-class Antibacterial Start: 02-28-2024 End: 03-09-2024 take 960 mg by mouth every twelve hours amoxicillin 400 mg/5 mL Oral Liq 960 mg = 12 mL, Oral, q12hr, X 10 day(s), # 240 mL, Refills(s) 0, Pharmacy: [facility] #[id number], 158, cm, 02/28/24 9:01:00 EST, Height/Length Dosing, [...] above: Take by mouth once d aily. Blood Glucose Monitoring Suppl (D-Care Glucometer) w/Device kit (6 sources) Start: 07-13-19 25 End: 04-15-20 26 Blood Glucose Monitoring Suppl (DC Devices-TheDigitel Glucometer) w/Device kit Indications: Gestational diabetes mellitus (GDM), antepartum, gestational diabetes method of control unspecified , Elevated glucose tolerance test 1 kit Daily Use four times daily to check FSBS. In the morning prior to breakfast & 1 hour after each meal for a total of 4times daily. 1 kit 07/12/2024 07/12/2025 Active brompheniramine maleate 0.4 mg/ml / dextromethorphan hydrobromide 2 mg/ml / pseudoephedrine hydrochloride 6 mg/ml oral solution (1 source) alpha-Adrenergic Agonist, Uncompetitive C-hpesum-L-aspartate Receptor Antagonist, Sigma-1 Agonist Start: 03-11-20 End: 03-20-20 21 take 5 mL by mouth every four to six hours brompheniramine/pse udoephedrine/dextro methorphan [id number]/5 mL oral syrup ; 5 milliliter(s) orally every 4 to 6 hours, As Needed Quantity: 120 Refills: 0 Ordered: 11-Mar-2021 Filomena Zamora Start: [...] tablet (1 source) Histamine-1 Receptor Antagonist Start: 03-11-20 End: 03-31-19 take 1 tablet by mouth once daily [...] affect the action of this medication. clindamycin 10 mg/ml topical lotion (20 sources) Lincosamide Antibacterial Start: 04-19-19 End: 04-19-19 clindamycin (Cleocin-T) 1 % lotion Indications: Other acne Apply topically 2 (two) times a day 60 mL 04/19/2024 04/19/2025 Active Start: 06-15-2023 End: 06-14-2024 clindamycin (Clindagel) 1 % gel Indications: Acne vulgaris Apply topically Daily 60 g 2 06/15/2023 03/11/2024 Discontinued escitalopram 10 mg oral tablet (4 sources) Serotonin Reuptake Inhibitor End: 03-11-2024 escitalopram (Lexapro) 10 MG tablet 1 (one) time each day at the same time 03/11/2024 Discontinued fluticasone propionate 0.05 mg/actuat metered dose nasal spray (1 source) Corticosteroid Start: 03-11-2021 End: 03-20-2021 take 1 spray(s) nasal route once daily [...] or discontinue unless directed by your doctor. isopropyl alcohol 0.7 ml/ml medicated pad (6 sources) Start: 07-12-2024 Alcohol Swabs (Alcohol Prep Pad) 70 % pads Indications: Gestational diabetes mellitus (GDM), antepartum, gestational diabetes method of control unspecified , Elevated glucose tolerance test Apply 1 Pad topically Daily Use four times daily to check FSBS. 150 each 3 07/12/2024 Active mv-min/iron/folic/c alcium/vitK (WOMEN'S MULTIVITAMIN ORAL) (20 sources) mv-min/iron/foli c/ calcium/vitK (WOMEN'S MULTIVITAMIN ORAL) Take by mouth. Active mv-min/iron/foli c/calcium/vitK (WOMEN'S MULTIVITAMIN ORAL) Take by mouth. 0 Active Comment on above: Take by mouth. vit/iron fum/folic ac ( 1 + 1 ORAL) (20 sources) vit/iro n fum/folic ac ( 1 [...] 0 Start Date: 05/29/12 Status: Ordered levonorgestrel 0.089475 mg/hr intrauterine system (14 sources) Progestin, Progestin-containi [...] counseling and advice on procreation] 06-08-2023 Episodic Diabetes or abnormal glucose tolerance complicating ; childbirth; or the puerperium (2 sources) Gestational diabetes mellitus; Translations: [Gestational diabetes mellitus in , unspecified control] 08-08-2024 Episodic Female infertility (5 sources) Female infertility; Translations: [Female infertility, unspecified] Onset: 10-16-2023 10-12-2023 Chronic Immunizations and screening for infectious disease (3 sources) Encounter for screening for human papillomavirus (HPV); Translations: [Exposure to sexually transmissible disorder] Onset: 03-26-2022 04-19-2024 Episodic Menstrual disorders (1 source) Missed period; Translations: [Irregular menstruation, unspecified] 03-11-2024 Chronic Mood disorders (20 sources) Recurrent major depressive episodes, mild ; Translations: [Major depressive disorder, recurrent, mild] Onset: 12-28-2023 12-28-2023 Chronic Neoplasms of unspecified nature or uncertain behavior (2 sources) Neoplasm of breast; Translations: [Neoplasm of unspecified behavior of breast] 04-19-2024 Episodic Nonmalignant breast conditions (2 sources) Lump in right breast; Translations: [Unspecified lump in the right breast, unspecified quadrant] 04-19-2024 Episodic Other complications of (1 source) Maternal obesity complicating , childbirth and the puerperium, antepartum; Translations: [Obesity complicating , second trimester] 06-01-2024 Chronic Other complications of (2 sources) size does not accord with dates; Translations: [Uterine size-date discrepancy, unspecified trimester] 06-22-2024 Episodic Other female genital disorders (2 sources) Vaginal discharge; Translations: [Other specified noninflammatory disorders of vagina] 04-19-2024 Episodic Other hereditary and degenerative nervous system conditions (20 sources) Restless legs; Translations: [Restless legs syndrome] [...] due to excess calories] 12-28-2023 Chronic Other nutritional; endocrine; and metabolic disorders (1 source) Obesity; Translations: [Class 1 obesity without serious comorbidity with body mass index (BMI) of 34.0 to 34.9 in adult, unspecified obesity type] 06-01-2024 Chronic Other and delivery including normal (14 sources) test positive; Translations: [Encounter for test, result positive] Onset: 01-21-2024 01-18-2024 Episodic Other screening for suspected conditions (not mental disorders or infectious disease) (11 sources) Encounter for screening for malignant neoplasm of cervix; Translations: [Patient encounter status] Onset: 03-19-2022 Episodic Other skin disorders (2 sources) Acne; Translations: [Other acne] 04-19-2024 Episodic Other upper respiratory disease (1 source) [...] otitis media, right ear] Onset: 02-28-2024 Episodic Residual codes; unclassified (2 sources) Gestation period, 16 weeks; Translations: [16 weeks gestation of ] 04-19-2024 Episodic Residual codes; unclassified (1 source) Gestation period, 23 weeks; Translations: [23 weeks gestation of ] 06-01-2024 Episodic Residual codes; unclassified (2 sources) Gestation period, 26 weeks; Translations: [26 weeks gestation of ] 06-22-2024 Episodic Residual codes; unclassified (2 sources) Gestation period, 29 weeks; Translations: [29 weeks gestation of ] 07-11-2024 Episodic Residual codes; unclassified (2 sources) Gestation period, 31 weeks; Translations: [31 weeks gestation of ] 07-25-2024 Episodic Residual codes; unclassified (2 sources) Gestation period, 33 weeks; Translations: [33 weeks gestation of ] 08-08-2024 Episodic Unclassified (2 sources) Complete placenta previa [...] above: COUGH, SORE THROAT, EAR PRESSURE Unclassified (17 sources) OB Reminders Onset: 03-28-2024 03-28-2024 Unclassified (1 source) Patient encounter status 05-27-2024 Past or Other Problems Problem Classification Problem Date Documented Da te Episodic/Chronic Genitourinary symptoms and ill-defined conditions (1 source) Other abnormal findings in urine; Translations: [Other abnormal findings in urine] Onset: 11-06-2016 Episodic Hemorrhage during ; abruptio placenta; placenta previa (2 sources) Antepartum hemorrhage; Translations: [Complete placenta previa with hemorrhage, third trimester] Onset: 12-09-2016 Resolved: 06-01-2024 06-01-2024 Episodic Other complications of (3 sources) Supervision of resulting from assisted reproductive technology, first trimester; Translations: [ resulting from assisted reproductive technology] Onset: 02-09-2024 01-20-2024 Episodic Unclassified (1 source) Complete placenta previa with hemorrhage, third trimester; Translations: [Complete placenta previa with hemorrhage, third trimester] Onset: 12-09-2016 Unclassified (1 source) Encounter for suprvsn of normal , third trimester; Translations: [Encounter for suprvsn of normal , third trimester] Onset: 12-03-2016 Results Test Name Value Interpretation Reference Range Facility Urinalysis macro (dipstick) panel (U)on 08-08-2024 Bilirubin, UA Negative Negative - 4(70) +++ mg/dL [facility] Blood, UA Negative Negative - 50 Mukesh/mcL [facility] Clarity, UA Clear [facility] Color, UA Yellow [facility] Glucose, UA Negative Negative - 1999(110) ++++ mg/dL [facility] Interpretation and review of laboratory results Normal [facility] Ketones, UA Negative Negative - 160(16) ++++ mg/dL [facility] Leukocytes, UA Negative Negative - 500+++ Shannon/mcL [facility] Nitrite, UA Negative Negative - Positive [facility] pH, UA 7 5 - 9 [facility] Protein, UA Negative Negative - 1999(20) ++++ mg/dL [facility] Spec Grav, UA 1.02 1 - 1.03 [facility] Urobilinogen, UA 0.2 0.2 - 12 mg/dL [facility] Urinalysis macro (dipstick) panel (U)on 07-25-2024 Bilirubin, UA Negative Negative - 4(70) +++ mg/dL [facility] Blood, UA Negative Negative - 50 Mukesh/mcL [facility] Clarity, UA Clear [facility] Color, UA Yellow [facility] Glucose, UA Negative Negative - 1999(110) ++++ mg/dL [facility] Interpretation and review of laboratory results Abnormal [facility] Ketones, UA Negative Negative - 160(16) ++++ mg/dL [facility] Leukocytes, UA Negative Negative - 500+++ Shannon/mcL [facility] Nitrite, UA Negative Negative - Positive [facility] pH, UA 6.5 5 - 9 [facility] Protein, UA Negative Negative - 1999(20) ++++ mg/dL [facility] Spec Grav, UA 1.015 1 - 1.03 [facility] Urobilinogen, UA 1.0 0.2 - 12 mg/dL [facility] CNPNon 07-20-2024 CNP Telephone ([id number]) NELLI CARPENTER ([id number]) 1990 F Date Time Provider Department 07/20/24 HISTORICAL [id number] During your visit today, we recorded the following information about you: Jessy Lilly RN 07/20/2024 1:19 PM Signed Received outside referral from Dr. Prieto for GDM consult due to elevated 1 hour glucose 202. Called pt. To schedule appointment no answer, left message with call back phone number. BALJINDER Zaman Laura Lee 07/25/2024 11:57 AM Signed Nelli Carpenter called today. Caller's (home) [phone] (cell) Reason for call: Pt calling nurse back to be scheduled for GDM consult due to elevated 1 hour glucose 202. Jessy Zamora, BALJINDER 08/04/2024 3:24 PM Addendum Outside referral received from Dr. Prieto for elevated 1 hour glucose 202. Pt. Has all testing supplies and has been checking BS periodically. Advised pt. To start checking 4 times daily and upload to [employer]. Will send pharmacy care coordinator. Other med hx: asthma, placenta previa with previous OB History Gravida4 Para2 Term2 Preterm0 AB1 Living2 SAB1 IAB0 Ectopic0 Multiple0 Live Births2 2014- , vag MAB 2017- FT, c-sec placenta previa Current meds: PNV Last growth US 07/11, pt. Advised to schedule growth US every 4 weeks. Pt. Scheduled for SMA GDM class on 08/[address] Quintanilla. Jessy Lilly RN Records sent to medical records, and also available in [address]. Allergies As of Date: 07/20/2024 (No Known Allergies) Date Reviewed: 01/20/2024 Reviewed by: Andressa Abraham APRN.HAND BLOCKER - Fully Assessed Prescriptions as of 08/04/2024 - vit/iron fum/folic ac ( 1 + 1 ORAL) Take by mouth. - mv-min/iron/folic/calci um/vitK (WOMEN'S MULTIVITAMIN ORAL) Take by mouth. Problem List As Of Date 07/20/2024 Noted Resolved Complete placenta previa with hemorrhage, third*12/09/2016 06/01/2024 Encounter Status:Closed by JESSY LILLY on 07/20/24 Normal [facility] ALL CBC WITH AUTO DIFFon BASOPHILS ABSOLUTE AUTO 0 [facility] Basophils/100 WBC (Bld) 0.2 % 0.2 - 2.0 % [facility] Healthcare Eosinophils/100 WBC (Bld) 0.6 % Low 0.9 - 7.0 % [facility] Erythrocyte distribution width (RBC) [Ratio] 13.2 % 11.0 - 15.0 % [facility] Hematocrit (Bld) [Volume fraction] 34 % Low 36.0 - 48.0 % [facility] Hemoglobin (Bld) [Mass/Vol] 11.1 g/dL Low 12.0 - 16.0 g/dL [facility] IMMATURE GRANULOCYTES ABS AUTO 0.15 High [facility] Immature granulocytes/100 WBC (Bld) 1.9 % High 0.0 - 0.5 % [facility] Interpretation and review of laboratory results Abnormal [facility] LYMPHOCYTES ABSOLUTE AUTO 1.5 [facility] Lymphocytes/100 WBC (Bld) 18.9 % Low 20.5 - 60.0 % [facility] MCH (RBC) [Entitic mass] 28.6 pg 26.7 - 34.0 pg [facility] MCHC (RBC) [Mass/Vol] 32.6 g/dL 29.9 - 35.2 g/dL [facility] MCV (RBC) [Entitic vol] 87.6 fL 81.0 - 99.0 fL [facility] MONOCYTES ABSOLUTE AUTO 0.4 [facility] Monocytes/100 WBC (Bld) 5.3 % 1.7 - 12.0 % [facility] NEUTROPHILS ABSOLUTE AUTO 5.9 [facility] Neutrophils/100 WBC (Bld) 73.1 % 43.0 - 75.0 % [facility] Platelet mean volume (Bld) [Entitic vol] 10.9 fL 9.5 - 13.5 fL [facility] EO # 0.1 [facility] PLT 218 [facility] RBC 3.88 Low [facility] WBC 8.1 [facility] Urinalysis macro (dipstick) panel (U)on 06-27-2024 Bilirubin, UA Negative Negative - 4(70) +++ mg/dL [facility] Blood, UA Negative Negative - 50 Mukesh/mcL [facility] Clarity, UA Clear [facility] Color, UA Light Yellow [facility] Glucose, UA Negative Negative - 2000(110) ++++ mg/dL [facility] Interpretation and review of laboratory results Normal [facility] Ketones, UA Negative Negative - 160(16) ++++ mg/dL [facility] Leukocytes, UA Negative Negative - 500+++ Shannon/mcL [facility] Nitrite, UA Negative Negative - Positive [facility] Comment on above: ` pH, UA 6 5 - 9 [facility] Protein, UA Negative Negative - 2000(20) ++++ mg/dL [facility] Spec Grav, UA 1.025 1 - 1.03 [facility] Urobilinogen, UA 1.0 0.2 - 12 mg/dL [facility] US OB FOLLOW UP TRANSABDOMIN AL APPROACHon 06-22-2024 US OB FOLLOW UP TRANSABDOMINAL APPROACH EXAM: US OB FOLLOW UP TRANSABDOMINAL APPROACH HISTORY: Inconsistent size. COMPARISON: Ob ultrasound [...] II, MD, PHD at 11-Jul-2024 11:47:38 PM [facility] Normal Not Available Comment on above: Order Comment: US OB SCAN FOR GROWTH Estimated Date of Delivery: 09/24/24 Gestational Age as of 06/22/2024: 26w4d Imaging facility unable to obtain prior images. Prior report attached. Examination level ultrasound on 06-01-2024 Indication Detailed anatomic survey, Maternal obesity, BMI >30 Impression The patient is referred for a detailed anatomic survey. - Single, live, intrauterine . - biometry is consistent with the established gestational age. - No malformations were visualized on a complete detailed anatomic survey. - The amniotic fluid volume is normal amount. - The placenta is anterior, fundal. - The Transvaginal cervical length measures 43.4 mm with no evidence of funneling or other dynamic changes. - Not all structural malformations can be detected by ultrasound examination. NIPT was negative for aneuploidy. Recommendations Follow-up as clinically indicated. Maternal Assessment Height 160 cm Height (ft) 5 ft Height (in) 3 in Physical Exam Initial weight (lb) 196 lb Initial BMI 34.72 kg/m Method Transabdominal and transvaginal ultrasound examination. View: Adequate visualization Choudhury . Number of fetuses: 1 Dating LMP on: 12/19/2023 GA by LMP 23 w + 4 d PAULA by LMP: 09/24/2024 Ultrasound examination on: 06/01/2024 GA by U/S based upon: AC, BPD, Femur, HC GA by U/S 24 w + 0 d PAULA by U/S: 09/21/2024 General Evaluation Cardiac activity present. FHR 154 bpm. movements: present. Presentation: cephalic Placenta: Placental site: anterior, fundal Umbilical cord: Cord vessels: 3 vessel cord. Insertion site: normal insertion Amniotic fluid: Amount of AF: normal amount. MVP 6.7 cm Growth Overview Exam date GA BPD (mm) HC (mm) AC (mm) FL (mm) HL (mm) EFW (g) 06/01/2024 0w 0d 60 224.8 192.4 41 38.3 631 Biometry Standard BPD 60.0 mm 24w 3d Hadlock OFD 81.3 mm 24w 4d Nicolaides HC 224.8 mm 24w 2d Lizy Cerebellum tr 26.7 mm 23w 6d Hill Nuchal fold 4.5 mm AC 192.4 mm 24w 0d Hadlock Femur 41.0 mm 23w 3d Lizy Humerus 38.3 mm 23w 4d Lizy EFW 631 g 23w 4d Hadlock EFW (lb) 1 lb EFW (oz) 6 oz EFW by: Hadlock (HC-AC-FL) Extended Assistant Store Manager Operations 4.7 mm CM 8.4 mm Nasal bone 8.4 mm Extremities / Bony Struc FL / HC 0.18 Other Structures FHR 154 bpm Anatomy Cranium: normal Lateral ventricles: normal Choroid plexus: normal Midline falx: normal Cavum septi pellucidi: normal Cerebellum: normal Cisterna magna: normal Head / Neck Vermis: normal Neck: normal Nuchal fold: normal Lips: normal Profile: normal Nose: normal Face Maxilla: normal Mandible: normal Orbits: normal Lens: normal 4-chamber view: normal RVOT view: normal LVOT view: normal 3-vessel view: normal 2-sclydz-xskvnok view: normal Heart / Thorax Situs: situs solitus (normal) Aortic arch view: normal SVC: normal IVC: normal Cardiac axis: normal Rt lung: normal Lt lung: normal Diaphragm: normal Cord insertion: normal Stomach: normal Kidneys: normal Bladder: normal Genitals: visualized Abdomen Abdom. wall: normal Cervical spine: normal Thoracic spine: normal Lumbar spine: normal Sacral spine: normal Arms: normal Legs: normal Rt upper arm: normal Rt forearm: normal Rt hand: normal Rt fingers: normal Lt upper arm: normal Lt forearm: normal Lt hand: normal Lt fingers: normal Rt upper leg: normal Rt lower leg: normal Rt foot: normal Lt upper leg: normal Lt lower leg: normal Lt foot: normal sex: male sex: normal Wants to know sex: yes Maternal Structures Uterus / Cervix Uterus: Visualized Cervix: Visualized Approach: Transvaginal Cervical length 43.4 mm Ovaries / Tubes / Adnexa Rt ovary: Not visualized Lt ovary: Not visualized Performed By: Yola Jung [facility] Read By: Leonid Myers M.D. MATERNAL MEDICINE [facility] Radiology Study observation (narrative) [facility] BI US BREAST COMPLETE RIGHTo n 05-31-2024 BI US BREAST COMPLETE RIGHT This is a summary report. The complete report is available in the patient's [...] 2 ELECTRONICALLY SIGNED BY: Floyd Way M.D. Normal Not Available IGP,APTIMA HPV,AGE GDLNon AGE GDLN ACOG TESTING Note . [facility] Comment on above: TESTS RESULT FLAG UN ITS REF RANGE LAB Clinician Provided Cytology Information Source.............Cervix Other.............. No. of containers..01 ThinPrep Vial Age Algo ACOG Akua... FLAG LEGEND: L-Low Normal,H-High Normal,LL-Alert Low,HH-Alert High <-Panic Low,>-Panic High,A-Abnormal,AA-Critical Abnormal Performed at: 01 =[address] [id number] Maribel Martin MD, HPV APTIMA Negative Negative [facility] Comment on above: This nucleic acid am plification test detects fourteen high- risk HPV types (16,18,31,33,35,39,45,51,52,56,58,59,66,68) without differentiation. Performed at: =[address] [id number] Pathology Laboratory Director: Maribel Martin MD, Phone: [phone] Performed at: [address] [id number] Pathology Laboratory Director: Maribel Martin MD, Phone: [phone] IGP, APTIMA HPV, RFX 16/18,45 Note . [facility] Comment on above: TESTS RESULT FLAG UN ITS REF RANGE LAB DIAGNOSIS: 02 NEGATIVE FOR INTRAEPITHELIAL LESION OR MALIGNANCY. Specimen adequacy: 02 Satisfactory for evaluation. No endocervical component is identified. An endocervical component is not commonly seen in the patient. Performed by: Niecy Hui Prism Inspector (ASCP) . 02 Note: Note 02 The Pap smear is a screening test designed to aid in the detection of premalignant and malignant conditions of the uterine cervix. It is not a diagnostic procedure and should not be used as the sole means of detecting cervical cancer. Both false-positive and false-negative reports do occur. Test Methodology: Note 02 This liquid based ThinPrep(R) pap test was screened with the use of an image guided system. HPV Genotype Reflex Note 02 Criteria not met, HPV Genotype not performed. FLAG LEGEND: L-Low Normal,H-High Normal,LL-Alert Low,HH-Alert High <-Panic Low,>-Panic High,A-Abnormal,AA-Critical Abnormal Performed at: [address] [id number] Maribel Martin MD, SPATULA-ALONE CERVIX [facility] RECURRENT VAGINITIS (HTRX)on 04-20-2024 ATOPOBIUM VAGINAE 0 [facility] ATOPOBIUM VAGINAE Not detected [facility] BVAB 2,3 (BACTERIAL VAGINOSIS ASSOCIATED BACTERIA 2, 3); MOBILUNCUS SPP 0 [facility] BVAB 2,3 (BACTERIAL VAGINOSIS ASSOCIATED BACTERIA 2, 3); MOBILUNCUS SPP Not detected [facility] JOELLE ALBICANS, PARAPSILOSIS, TROPICALIS 0 [facility] JOELLE ALBICANS, PARAPSILOSIS, TROPICALIS Not detected [facility] JOELLE GLABRATA 0 [facility] JOELLE GLABRATA Not detected [facility] JOELLE KRUSEI 0 [facility] JOELLE KRUSEI Not detected [facility] CHLAMYDIA TRACHOMATIS 0 [facility] CHLAMYDIA TRACHOMATIS Not detected [facility] GARDNERELLA VAGINALIS 0 [facility] GARDNERELLA VAGINALIS Not detected [facility] MEGASPHAERA (TYPES 1, 2) 0 [facility] MEGASPHAERA (TYPES 1, 2) Not detected [facility] MYCOPLASMA GENITALIUM 0 [facility] MYCOPLASMA GENITALIUM Not detected [facility] NEISSERIA GONORRHOEAE 0 [facility] NEISSERIA GONORRHOEAE Not detected [facility] TRICHOMONAS VAGINALIS 0 [facility] TRICHOMONAS VAGINALIS Not detected [facility] Urinalysis macro (dipstick) panel (U)on 04-19-2024 Bilirubin, UA Negative Negative - 4(70) +++ mg/dL [facility] Blood, UA Negative Negative - 50 Mukesh/mcL [facility] Clarity, UA Clear [facility] Color, UA Yellow [facility] Glucose, UA Negative Negative - 1999(110) ++++ mg/dL [facility] Interpretation and review of laboratory results Normal [facility] Ketones, UA Negative Negative - 160(16) ++++ mg/dL [facility] Leukocytes, UA Negative Negative - 500+++ Shannon/mcL [facility] Nitrite, UA Negative Negative - Positive [facility] pH, UA 7.5 5 - 9 [facility] Protein, UA Negative Negative - 1999(20) ++++ mg/dL [facility] Spec Grav, UA 1.015 1 - 1.03 [facility] [facility] Urobilinogen, UA 0.2 0.2 - 12 mg/dL [facility] ALL CBC WITH AUTO DIFFon BASOPHILS ABSOLUTE AUTO 0 [facility] Basophils/100 WBC (Bld) 0.4 % 0.2 - 2.0 % [facility] Eosinophils/100 WBC (Bld) 0.9 % 0.9 - 7.0 % [facility] Erythrocyte distribution width (RBC) [Ratio] 13.1 % 11.0 - 15.0 % [facility] Hematocrit (Bld) [Volume fraction] 36.9 % 36.0 - 48.0 % [facility] Hemoglobin (Bld) [Mass/Vol] 12.3 g/dL 12.0 - 16.0 g/dL [facility] IMMATURE GRANULOCYTES ABS AUTO 0.07 High [facility] Immature granulocytes/100 WBC (Bld) 1 % High 0.0 - 0.5 % [facility] Interpretation and review of laboratory results Abnormal [facility] LYMPHOCYTES ABSOLUTE AUTO 1.8 [facility] Lymphocytes/100 WBC (Bld) 25.9 % 20.5 - 60.0 % [facility] MCH (RBC) [Entitic mass] 29.9 pg 26.7 - 34.0 pg [facility] MCHC (RBC) [Mass/Vol] 33.3 g/dL 29.9 - 35.2 g/dL [facility] MCV (RBC) [Entitic vol] 89.6 fL 81.0 - 99.0 fL [facility] MONOCYTES ABSOLUTE AUTO 0.5 [facility] Monocytes/100 WBC (Bld) 6.4 % 1.7 - 12.0 % [facility] NEUTROPHILS ABSOLUTE AUTO 4.6 [facility] Neutrophils/100 WBC (Bld) 65.4 % 43.0 - 75.0 % [facility] Platelet mean volume (Bld) [Entitic vol] 12 fL 9.5 - 13.5 fL [facility] TB[facility] EO # 0.1 [facility] PLT 169 [facility] RBC 4.12 Low [facility] WBC 7 [facility] CLINISYNC [facility] HCG ( test) Ql (U)o n 03-11-2024 Interpretation and review of laboratory results Abnormal [facility] Preg Test, Ur Positive Negative [facility] Urinalysis macro (dipstick) panel (U)on 03-11-2024 Bilirubin, UA Negative Negative - 4(70) +++ mg/dL [facility] Blood, UA Negative Negative - 50 Mukesh/mcL [facility] Clarity, UA Clear [facility] Color, UA Yellow [facility] Glucose, UA Negative Negative - 1999(110) ++++ mg/dL [facility] Interpretation and review of laboratory results Normal [facility] Ketones, UA Negative Negative - 160(16) ++++ mg/dL [facility] Leukocytes, UA Negative Negative - 500+++ Shannon/mcL [facility] Nitrite, UA Negative Negative - Positive [facility] pH, UA 7 5 - 9 [facility] Protein, UA Negative Negative - 1999(20) ++++ mg/dL [facility] Spec Grav, UA 1.02 1 - 1.03 [facility] Urobilinogen, UA 0.2 0.2 - 12 mg/dL [facility] Ambulatory Visit Summaryon 1 04-30-2023 Ambulatory Visit Summary Ambulatory Visit Summary NELLI CARPENTER :1990 Visit Date:02/28/2024 Ambulatory Visit Instructions Your Diagnosis Right otitis media with effusion Sinus congestion BMI 34.0-34.9,adult Your Care Team Attending Physician - MADALYN LOZADA, TIARRA Primary Care Physician - Luis Miguel CANTU, Karen M This Is Your Medications List amoxicillin (amoxicillin [...] with effusion Duration: 10 Days Pickup at [facility] #[id number] Pharmacy Information [facility] #[id number]: [address] [place], [place] [id number] [phone] Allergies No Known Allergies Problems Ongoing - [...] for choosing us for your care. Normal [facility] Family Medicine Office/Clini c Noteon 02-28-2024 Family Medicine Office/Clinic Note Family Medicine Office/Clinic Note Chief Complaint ear pain, cough, sore throat HPI Staff 33 year old female presents with bilateral ear pain- right is worse, cough, sore throat, mild head pressure, congestion symptoms began yesterday pt it 10 weeks History of Present Illness Reviewed and agree with above documented HPI by medical lab assistant. Portions of this record may have been created with voice recognition artificial intelligence software, specifically [employer], [employer] and or thePlatform. Substitutions may have occurred due to the inherent limitations of voice recognition and artificial intelligence software. Patient is a 33-year-old female who presents to [facility], for right ear pain, sinus congestion, [...] in complete sentences. Follows commands appropriately. Head: Normocephalic/atraumati c positive upper respiratory infection. Eyes: Pupils equal, [...] at this time. 33-year-old female presented to [facility], for right otitis media effusion, sinus [...] for amoxicillin, instructed she can only take ihcn-zka-pvyoeof Tylenol for body aches, headaches, and fevers since she is . Given a work excuse note. Follow-up with primary care provider as needed. 1. Right otitis media with effusion (H65.91: Unspecified nonsuppurative otitis media, right ear) See above Ordered: amoxicillin, 960 mg = 12 mL, Oral, q12hr, X 10 day(s), # 240 mL, Refills(s) 0, Pharmacy: [facility] #[id number], 158, cm, 02/28/24 9:01:00 EST, Height/Length Dosing, [...] management wi (more content not included)... Normal [facility] Comment on above: Result Comment: Elec tronically Signed By: MADALYN LOZADA, TIARRA\.br\Date and Time Signed: 02/28/24 09:58 EST [facility] Patient Letter [facility] [address] [place] [address] February 28, 2024 NELLI CARPENTER [facility] [place] [place] [address] : 1990 Please excuse NELLI CARPENTER from work . Date and/or Time of Absence: From: 02/29/24 May return to work on: 03/01/24 Restrictions: None Comments: Please excuse due to an acute illness. Provider Signature: Tiarra Katz PA-C [address] [place] [address] [place] [address] [facility] CNNURSEon 02-09-2024 CNNURSE Nurse Visit (REIAV) NELLI CARPENTER ([id number]) 1990 F Date Time Provider Department 02/09/24 10:30 AM NURSE [facility] REJ REIAV During your visit today, we recorded the following information about you: Parth Clark MD 02/09/2024 11:28 AM Signed Scan Visit Patient here for scan. See imaging documentation. MD Diego Bajwa Lauren, LOSS PREVENTION SUPERVISOR.[facility] 02/09/2024 12:28 PM Signed Nelli Carpenter here [...] 2024 12:27 PM Referring Provider: ANDRESSA ABRAHAM [[id number]] Allergies As of Date: 02/09/2024 (No Known Allergies) Date Reviewed: 01/20/2024 Reviewed by: Andressa Abraham APRN.CNP - Fully Assessed Visit Diagnosis: resulting from assisted reproductive technology in first trimester [O09.811] Order(s):OBSTETRIC ULTRASOUND [facility] [[id number]] Order #: [id number]. #:[id number] WPOINTQty: 1 Prescriptions as of 02/09/2024 - vit/iron fum/folic ac ( 1 + 1 ORAL) Take by mouth. - mv-min/iron/folic/calci um/vitK (WOMEN'S MULTIVITAMIN ORAL) Take by mouth. Problem List As Of Date: 02/09/2024 (None) Encounter Status:Closed by PARTH CLARK on 02/09/24 Normal [facility] Examination level ultrasound on 02-09-2024 Indication Viability; IUI done on 01-02-24; obesity >30 Impression - Single, live, intrauterine . - An intrauterine gestational sac with a yolk sac and pole is present. - Melvina rump length measurement is consistent with the [...] Read By: Parth Clark M.D. MATERNAL MEDICINE [facility] Radiology Study observation (narrative) [facility] B-HCG SerPl-aCncon 4 HCG.beta subunit Qn 2270.0 m[IU]/mL High <5.0 [facility] Comment on above: Order Comment: Speci men Type: BLOOD SPECIMENOrdering Facility: [facility] Address: [address] [place] [address] Result Comment: NOBLE TITATIVE HCG NORMAL RANGES Weeks of Gestation (Weeks Since LMP) 3 Weeks (5.8-71.2 mIU/mL) 4 Weeks (9.5-750 mIU/mL) 5 Weeks (217-7138 mIU/mL) 6 Weeks (158-32881 mIU/mL) 7 Weeks (3697-679741 mIU/mL) 8 Weeks (93245-115693 mIU/mL) 9 Weeks (57373-079859 mIU/mL) 10 Weeks (20731-179445 mIU/mL) 12 Weeks (99646-057153 mIU/mL) Referenced to [facility] Performed By: #### 2 1198-7 ####[facility] LABCLIA [id number] [place] [address] [place] B-HCG SerPl-aCncon HCG.beta subunit Qn 792.1 m[IU]/mL High <5.0 C [facility] Comment on above: Order Comment: Speci men Type: BLOOD SPECIMENOrdering Facility: [facility] Address: [facility] [place] [address] Result Comment: NOBLE TITATIVE HCG NORMAL RANGES Weeks of Gestation (Weeks Since LMP) 3 Weeks (5.8-71.2 mIU/mL) 4 Weeks (9.5-750 mIU/mL) 5 Weeks (217-7138 mIU/mL) 6 Weeks (158-18468 mIU/mL) 7 Weeks (3697-780119 mIU/mL) 8 Weeks (22843-867667 mIU/mL) 9 Weeks (47809-175802 mIU/mL) 10 Weeks (56588-440529 mIU/mL) 12 Weeks (35064-124745 mIU/mL) Referenced to 4th [facility] Performed By: #### 2 1198-7 ####[facility] [id number] [place] [address] [place] Azar 01-18-2024 LEXUSN Telephone (REIBD) NELLI CARPENTER ([id number]) 1990 F Date Time Provider Department 01/18/24 ANDRESSA ABRAHAM During your visit today, we [...] 1 + 1 ORAL) Take by mouth. mv-min/iron/folic/calci um/vitK (WOMEN'S MULTIVITAMIN ORAL) Take by mouth. BIOTIN [...] Date Reviewed: 11/23/2023 Reviewed by: Andressa Abraham APRN.HAND BLOCKER - Fully Assessed Reason for Visit: +hpt 01/15 after an iui [Other] Primary Visit Diagnosis:Encounter for test, result positive [Z32.01] Order(s):HCG QUANTITATIVE [SQHCGQT] Order #: [id number] STANDING Prescriptions as of 01/18/2024 - vit/iron fum/folic ac ( 1 + 1 ORAL) Take by mouth. - mv-min/iron/folic/calci um/vitK (WOMEN'S MULTIVITAMIN ORAL) Take by mouth. - BIOTIN ORAL Take by mouth once daily. Problem List As Of Date: 01/18/2024 (None) Medications Discontinued During This Encounter Prescriptions - levonorgestrel (MIRENA) 20 mcg/24 hr IUD (Discontinued) Reported on 06/08/2023 Encounter Status:Closed by JESSI YOO on 01/18/24 Normal [facility] CNOVon 01-02-2024 CNOV Office Visit (REIBD) NELLI CARPENTER ([id number]) 1990 F Date Time Provider Department 01/02/24 [...] Cycle Day: 15 Last menstrual period: 12/19/2023 [place] Protocol: UNIVERSAL PROTOCOL / SAFETY CHECKLIST Procedure [...] discussed with the Patient or Patient's Authorized Coil Tier. As applicable, any other physician, advance practice provider, medical student, or other health professional student that will be observing or involved in the sensitive examination for educational or training purposes was discussed with the Patient or Authorized Coil Tier. The Patient or Authorized Coil Tier has agreed to proceed with the sensitive examination. (Sensitive examination includes inspection and/or palpation of the breasts, pelvis, prostate and anorectal regions) Patient declined wood cutter. IUI IUI Date: 01/02/24 Partner's Name: Wanda [...] 01/02/2024 11:46 AM Signed IUI Xytex #: [id number] Washed frozen specimen Post: 122 m/ml, 63% Insem#: 34.7 million Referring Provider: ANDRESSA ABRAHAM [[id number]] Allergies As of Date: 01/02/2024 (No Known Allergies) Date Reviewed: 11/23/2023 Reviewed by: Andressa Abraham, LOSS PREVENTION SUPERVISOR.HAND BLOCKER - Fully Assessed Primary Visit Diagnosis:Encounter for artificial insemination [Z31.89] Prescriptions as of 01/02/2024 - vit/iron fum/folic ac ( 1 + 1 ORAL) Take by mouth. - mv-min/iron/folic/calci um/vitK (WOMEN'S MULTIVITAMIN ORAL) Take by mouth. - BIOTIN ORAL Take by mouth once daily. - levonorgestrel (MIRENA) 20 mcg/24 hr IUD 1 Each by INTRAUTERINE route one time only. Problem List As Of Date: 01/02/2024 (None) Encounter Status:Closed by ANYI GANT on 01/02/24 [facility] CNOV Office Visit (ANDRBE ) NELLI CARPENTER ([id number]) 1990 F Date Time Provider Department 01/02/24 10:30 AM ANDROLOGY UI UX WEB DEVELOPER ANDE During your visit today, we recorded the following information about you: Flavia Elizondo 01/02/2024 11:47 AM Signed Thaw for IUI Flavia Elizondo Referring Provider: ANDRESSA ABRAHAM [[id number]] Allergies As of Date: 01/02/2024 (No Known Allergies) Date Reviewed: 11/23/2023 Reviewed by: Andressa Abraham, WINDY.HAND BLOCKER - Fully Assessed Primary Visit Diagnosis:Procreative management [Z31.9] Prescriptions as of 01/02/2024 - vit/iron fum/folic ac ( 1 + 1 ORAL) Take by mouth. - mv-min/iron/folic/calci um/vitK (WOMEN'S MULTIVITAMIN ORAL) Take by mouth. - BIOTIN ORAL Take by mouth once daily. - levonorgestrel (MIRENA) 20 mcg/24 hr IUD 1 Each by INTRAUTERINE route one time only. Problem List As Of Date: 01/02/2024 (None) Encounter Status:Closed by FLAVIA ELIZONDO on 01/02/24 [facility] CNOVon 12-05-2023 CNOV Office Visit (REIBD) NELLI CARPENTER ([id number]) 1990 F Date Time Provider Department 12/05/23:00 AM MYRIAM DOMINGUEZ During your visit today, we recorded the following information about you: MarcoAlanis shena 12/06/2023 8:45 AM Signed IUI specimen released to provider Stephanieac Lara December 05, 2023 10:19 AM Uma [...] Cycle Day: 15 Last menstrual period: 11/21/2023 [place] Protocol: UNIVERSAL PROTOCOL / SAFETY CHECKLIST Procedure [...] EMERGENT procedures): No specimen collected. Patient declined wood cutter. Uma Aguilera MD IUI IUI Date: 12/05/23 [...] after wash): 49 million Donor ID #: [id number] Cycle reviewed, all questions answered. Pt instructed to take a test in 17 days if no menses and call with results. SIGNATURE: Uma Aguilera MD PATIENT NAME: Nelli Carpenter DATE: December 05, 2023 TIME: 10:31 AM I was present and immediately available for the entire procedure. Patient underwent an intrauterine insemination. Myriam Dominguez MD, Stephanie Barnett 12/06/2023 8:45 AM Signed IUI Xytex #[id number] Frozen washed specimen Post: 145 Million/mL, 68% Insem #: 49 Million Referring Provider: ANDRESSA ABRAHAM [[id number]] Allergies As of Date: 12/05/2023 (No Known Allergies) Date Reviewed: 11/23/2023 Reviewed by: Andressa Abraham APRN.HAND BLOCKER - Fully Assessed Primary Visit Diagnosis:Female infertility [N97.9] Prescriptions as of 12/06/2023 - vit/iron fum/folic ac ( 1 + 1 ORAL) Take by mouth. - mv-min/iron/folic/calci um/vitK (WOMEN'S MULTIVITAMIN ORAL) Take by mouth. - BIOTIN ORAL Take by mouth once daily. - levonorgestrel (MIRENA) 20 mcg/24 hr IUD 1 Each by INTRAUTERINE route one time only. Problem List As Of Date: 12/05/2023 (None) Encounter Status:Closed by MYRIAM DOMINGUEZ on 12/06/23 Normal [facility] CNOV Office Visit (ANDRBE ) NELLI CARPENTER ([id number]) 1990 F Date Time Provider Department 12/05/23 9:30 AM ANDROLOGY UI UX WEB DEVELOPER ANDE During your visit today, we recorded the following information about you: Stephanie Lara 12/05/2023 10:23 AM Signed Thaw for IUI Stephanie Lara Referring Provider: ANDRESSA ABRAHAM [[id number]] Allergies As of Date: 12/05/2023 (No Known Allergies) Date Reviewed: 11/23/2023 Reviewed by: Andressa Abraham APRN.HAND BLOCKER - Fully Assessed Primary Visit Diagnosis:Procreative management [Z31.9] Prescriptions as of 12/05/2023 - vit/iron fum/folic ac ( 1 + 1 ORAL) Take by mouth. - mv-min/iron/folic/calci um/vitK (WOMEN'S MULTIVITAMIN ORAL) Take by mouth. - BIOTIN ORAL Take by mouth once daily. - levonorgestrel (MIRENA) 20 mcg/24 hr IUD 1 Each by INTRAUTERINE route one time only. Problem List As Of Date: 12/05/2023 (None) Encounter Status:Closed by STEPHANIE LARA on 12/05/23 Normal [facility] [id number] 11-23-2023 HNO ID: [id number] Author: ANDRESSA ABRAHAM APRN.CNP Service: ? Author [...] Comments: None Andressa Abraham APRN.CNP 11/23/2023 Normal [facility] Progesterone [Mass/Vol] 7.4 ng/mL Normal See comment [facility] Comment on above: Order Comment: Speci men Type: BLOOD SPECIMENOrdering Facility: [facility] Address: [address] [place] [address] Result Comment: Mens trual Cycle Progesterone Reference Ranges: Follicular: <1.0 ng/mL Ovulation: <12.1 ng/mL Luteal: 1.8 to 23.9 ng/mL. Progesterone Reference Ranges vary by gestational period: First Trimester: 11.0 to 44.3 ng/mL Second Trimester: 25.4 to 83.3 ng/mL Third Trimester: 58.7 to 214 ng/mL Post menopausal Progesterone: <0.5 ng/mL Reference: 1. Progesterone (Progesterone III) [package insert V 1.0 Bel[place]ian]. [facility], [place], [place]. December 2014. Performed By: #### 2 839-9 ####[facility] JAMSHID [id number] [place] [id number] [facility] Azar 10-12-2023 LEXUSN Telephone (REIBD) NELLI CARPENTER ([id number]) 1990 F Date Time Provider Department 10/12/23 [...] Date Reviewed: 09/11/2023 Reviewed by: Andressa Abraham, WINDY.HAND BLOCKER - Fully Assessed Reason for Visit: +ovulation test SatANDSund d14 AND 15 partner calling [Other] Primary Visit Diagnosis:Female infertility [N97.9] Order(s):PROGESTERONE [SQPROG] Order #: [id number] FUTURE Prescriptions as of 10/12/2023 - vit/iron fum/folic ac ( 1 + 1 ORAL) Take by mouth. - mv-min/iron/folic/calci um/vitK (WOMEN'S MULTIVITAMIN ORAL) Take by mouth. - BIOTIN ORAL Take by mouth once daily. - levonorgestrel (MIRENA) 20 mcg/24 hr IUD 1 Each by INTRAUTERINE route one time only. Problem List As Of Date: 10/12/2023 (None) Encounter Status:Closed by JESSI YOO on 10/12/23 [facility] CNOVon 09-11-2023 CNOV Office Visit (REIBD) NELLI CARPENTER ([id number]) 1990 F Date Time Provider Department 09/11/23 8:00 AM ANDRESSA ABRAHAM REIBD During your visit today, we recorded the following information about you: Andressa Abraham, WINDY.[facility] 09/15/2023 4:56 PM Signed REPRODUCTIVE ENDOCRINOLOGY [...] favorite donors - send to me via OnMyBlock to confirm Confirmed best vial type to order: IUI/prewashed Will need to follow up to firm up treatment plan and review IUI scheduling instructions. Andressa Abraham APRN.HAND BLOCKER September 11, 2023 8:08 AM I spent a total of 50 minutes on the date of the service which included preparing to see the patient, ndcq-on-amyp patient care, completing clinical documentation, obtaining and/or reviewing separately obtained history, counseling and educating the patient/family/caregive r, ordering medications, tests, or procedures, independently interpreting results (not separately reported), communicating results to the patient/family/caregive r, and care coordination (not separately reported). To patients reading this note: Please be advised the primary purpose of this note is for me to communic (more content not included)... Normal [facility] Ambulatory Visit Summaryon 1 05-17-2022 Ambulatory Visit Summary PAULINE NELLI K :1990 Visit Date:03/16/2023 Ambulatory Visit Instructions Your [...] for choosing us for your care. Normal [facility] Family Medicine Office/Clini c Noteon 03-16-2023 Family [...] data available Patient Education Wrist Pain, Adult, Ijdg-tk-Dvah Problem List/Past Medical History Ongoing Acute sinusitis [...] DTaP, unspecified formulation 1990 Recorded Normal [facility] Comment on above: Result Comment: Elec tronically Signed By: Zach BOWLING, Rip Cordero.surjit\Date and Time Signed: 03/16/23 16:13 EST Patient Educationon 03-16-20 Patient Education Orthopedics Wrist Pain, Adult There [...] any changes in your symptoms. ? Take kklq-yli-jlxlcvj and prescription medicines only as told by [...] provider. Document Revised: 02/02/2020 Document Reviewed: 02/02/2020 [employer] Patient Education ? 2022 [employer] Normal [facility] XR Wrist 3+ Views Righton XR Wrist [...] Technologist: JUAN DAVID Technical Comments Radiation Dose: Ka,r in mGy = . DAP = . Normal [facility] Covid 19 Resultson 12-14-202 1 SARS-CoV-2 (COVID-19) RNA PENNY+probe Ql (Unsp [...] You may also be contacted by the [facility] [place] to see if any of your close [...] or Naproxen (Aleve) can also be used. Gced-bmn-weuhqlf cough and cold medicines can be used according to the instructions on the package. Some qifm-wfo-fbhbtea medicines also contain acetaminophen. Make sure you [...] water are not available, use alcohol-based hand hazardous substances engineer. Avoid touching your eyes, nose, and mouth [...] 24 de (more content not included)... Normal [facility] INFLUENZA A/B, COVID 2019 PC R,SYMPTOMATICon 03-12-2021 INFLUENZA A, PCR Not detected Normal Not Detected [facility] Comment on above: Result Comment: Resp iratory virus testing is performed routinely by PCR for Influenza A/B and RSV. If Influenza and RSV PCR are negative, testing for parainfluenza 1,2,3 viruses and adenovirus is routinely performed for oncology inpatients and intensive care unit patients at [facility] and is available on request on other patients by calling Laboratory Client Services at [phone]. Not Detected results do not preclude Influenza A/B or RSV infections since the adequacy of sample collection or low viral burden may impact the clinical sensitivity of this test method. Performed By: #### C OINP #### [facility] [address] [place] [address] INFLUENZA B, PCR Not detected Normal Not Detected [facility] Comment on above: Result Comment: Resp iratory virus testing is performed routinely by PCR for Influenza A/B and RSV. If Influenza and RSV PCR are negative, testing for parainfluenza 1,2,3 viruses and adenovirus is routinely performed for oncology inpatients and intensive care unit patients at [facility] and is available on request on other patients by calling Laboratory Client Services at [phone] Not Detected results do not preclude Influenza [...] by the Microbiology Laboratory, Department of Pathology, [facility], [place], [place]. It has not been cleared or approved by the US Food and Drug Administration; however, FDA clearance or approval is not currently required for clinical use. This test should not be regarded as investigational or for research purposes. Performed By: #### C OINP #### [place] [address] SARS-CoV-2 (COVID-19) RNA PENNY+probe Ql (Unsp spec) Not detected Normal Not Detected [facility] Comment on above: Result Comment: . [...] patient management decisions. Fact sheet for providers: https://www.fda.gov/media/725703/download Fact sheet for patients: https://www.fda.gov/media/173625/download This test has received FDA Emergency Use Authorization (EUA) and has been verified by [facility] ([facility]). This test is only authorized for the duration of time that circumstances exist to justify the authorization of the emergency use of in vitro diagnostic tests for the detection of SARS-CoV-2 virus and/or diagnosis of COVID-19 infection under section 564(b)(1) of the Act, 21 U.S.C. 360bbb-3(b)(1), unless the authorization is terminated or revoked sooner. [facility] is certified under CLIA-88 as qualified to perform high complexity testing. Testing is performed in the [facility] laboratories located at [address] [place] [address]. Performed By: #### C OIABDI #### [place] [address] INFLUENZA A/B, COVID 2019 PC R,SYMPTOMATICon 03-11-2021 DATE OF SYMPTOM ONSET [YYYYMMDD]? [id number] Normal [facility] Comment on above: Performed By: #### C OINP #### [facility] [address] [place] [address] Lab Specimen Source Nasal, Nasopharyngeal Normal [facility] Comment on above: Performed By: #### C OINP #### [facility] [address] [place] [address] Provider Note - ED v2on 02-27 Provider [...] and medical, surgical, family and social history ALLERGIES/INTOLERANCES: No Known Allergies HEALTH HISTORY: No documented data. OUTPATIENT MEDICATIONS: Home Medications Review Status for Reconciliation: Complete Med Status: Patient Currently Takes Medications Drug Name: amoxicillin-clavulanate 875 mg-125 mg oral tablet Instructions: 1 tab(s) orally 2 times a day Drug Name: fluticasone 50 mcg/inh nasal spray Instructions: 1 spray(s) in each nostril once a day Drug Name: brompheniramine/pseudoe phedrine/dextromethorph an 4yx-18zg-49tz/5 mL oral syrup Instructions: 5 milliliter(s) orally every 4 to 6 hours, As Needed Drug Name: cetirizine 10 mg oral tablet Instructions: 1 tab(s) orally once a day SIGNIFICANT EVENTS: Other Description:NO SURGICAL HISTORY THIS YEAR Additional Notes:02/2021 Description:NON SMOKER Additional Notes:02/2021 Past Medical History Description:NO CHRONIC HEALTH ISSUES Additional Notes: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 Filomena Zamora (LOSS PREVENTION SUPERVISOR-HAND BLOCKER) (Signed Addendum 12-Mar-2021 13:53) Spoke with patient and advised her of negative Covid test results, patien (more content not included)... Normal [facility] Hemoglobin and Hematocriton 12-10-2016 Hematocrit (HCT) 30.2 % Low 36.5-46.6 [facility] Comment on above: Performed By: #### 2 [id number] ####[facility] [address] [place] [address] Hemoglobin mass conc (Bld) 9.8 g/dL Low 11.8-15.3 [facility] Comment on above: Performed By: #### 2 [id number] ####[facility] [address] [place] [address] CBC With Differentialon 11-28 Basophils Auto #/vol (Bld) 0.05 10*3/uL Normal 0.01-0.07 [facility] Comment on above: Performed By: #### 2 [id number] ####[facility] [address] [place] [address] Basophils/100 WBC Auto (Bld) 0.5 % Normal 0.1-1.2 [facility] Comment on above: Performed By: #### 2 [id number] ####[facility] [address] [place] [address] Eosinophils 0.08 10*3/uL Normal 0.04-0.50 Count includes the [facility] are Comment on above: Performed By: #### 2 [id number] ####[facility] [address] [place] [address] Eosinophils/100 leukocytes 0.7 % Normal 0.0-8.1 [facility] Comment on above: Performed By: #### 2 [id number] ####[address] [place] [address] Erythrocyte distribution width Auto Ratio (RBC) 14.8 % Normal 12.0-15.4 [facility] Comment on above: Performed By: #### 2 [id number] ####[address] [address] Erythrocytes (RBC) 0.0 /100{WBCs} Normal [facility] Comment on above: Performed By: #### 2 [id number] ####[address] [address] Erythrocytes (RBC) 3.87 10*6/uL Normal 3.85-5.10 [facility] Comment on above: Performed By: #### 2 [id number] ####[address] [address] Erythrocytes (RBC) 0.00 10*3/uL Normal [facility] Healthcare Comment on above: Performed By: #### 2 [id number] ####[address] [address] Hematocrit (HCT) 34.5 % Low 36.5-46.6 Pending sale to [facility]care Comment on above: Performed By: #### 2 [id number] ####[address] [address] Hemoglobin mass conc (Bld) 11.4 g/dL Low 11.8-15.3 [facility] Healthcare Comment on above: Performed By: #### 2 [id number] ####[address] [place] [address] Imm Grans Absolute 0.55 10*3/uL High 0.00-0.21 [facility] Comment on above: Performed By: #### 2 [id number] ####[address] [address] Immature granulocytes #/vol (Bld) 5.0 % Normal [facility] Healthcare Comment on above: Performed By: #### 2 [id number] ####[facility] [address] [place] [address] Lymphocytes 1.91 10*3/uL Normal 0.40-2.84 Count includes the [facility] are Comment on above: Performed By: #### 2 [id number] ####[facility] [address] [place] [address] Lymphocytes/100 leukocytes 17.2 % Normal 15.7-50.5 [facility] Healthcare Comment on above: Performed By: #### 2 [id number] ####[facility] [address] [place] [address] MCH 29.5 pg Normal 27.5-33.0 [facility] Healthcare Comment on above: Performed By: #### 2 [id number] ####[facility] [address] [place] [address] MCHC mass conc (RBC) 33.0 g/dL Normal 30.1-35.0 [facility] Healthcare Comment on above: Performed By: #### 2 [id number] ####[facility] [address] [place] [address] MCV 89.1 fL Normal 85.4-100.0 [facility] Healthcare Comment on above: Performed By: #### 2 [id number] ####[facility] [address] [place] [address] Monocytes 0.84 10*3/uL High 0.25-0.83 [facility] Healthca re Comment on above: Performed By: #### 2 [id number] ####[facility] [address] [place] [address] Monocytes/100 leukocytes 7.6 % Normal 4.8-12.7 [facility] Healthcare Comment on above: Performed By: #### 2 [id number] ####[facility] [address] [place] [address] Neutrophils 7.66 10*3/uL High 1.95-6.85 Count includes the [facility] are Comment on above: Performed By: #### 2 [id number] ####[facility] [address] [place] [address] Neutrophils/100 leukocytes 69.0 % Normal 36.8-73.2 [facility] Healthcare Comment on above: Performed By: #### 2 244575 ####[facility] [address] [facility] [address] Platelet mean volume (PMV) 10.7 fL Normal 9.9-12.1 [facility] Healthcare Comment on above: Performed By: #### 2 [id number] ####[facility] [address] [place] [address] Platelets 197 10*3/uL Normal 155-404 [facility] Healthcar e Comment on above: Performed By: #### 2 [id number] ####[facility] [address] [facility] [address] RDW SD 48.2 fL Normal 39.3-48.6 [facility] Healthcare Comment on above: Performed By: #### 2 [id number] ####[facility] [address] [facility] [address] WBC (Leukocytes) 11.1 10*3/uL High 4.4-9.9 [facility] Comment on above: Performed By: #### 2 [id number] ####[facility] [address] [facility] [address] Pathology ([facility])on 12-09-2016 Pathology ([facility]) FINAL SURGICAL PATHOLOGY [id number] FINAL DIAGNOSISPLACENTA-THIRD TRIMESTER PLACENTA WITH ACCESSORY LOBE , 470 GRAMS.FOCAL FIBRIN PLAQUE FORMATION.FOCAL DYSTROPHIC MICROCALCIFICATIONS.THR EE-VESSEL UMBILICAL CORD, NEGATIVE FOR FUNISITIS. MEMBRANES, NEGATIVE FOR CHORIOAMNIONITIS.CLINIC AL HISTORY: 37 WEEKS INTRAUTERINE , HISTORY OF PREVIA WITH BLEEDINGOPERATION:PRIMA RY SECTIONSPECIMEN(S):(A) PLACENTA, THIRD TRIMESTERPerformed at [facility], [address] [place] [id number] DESCRIPTION:Received fresh, labeled with the patient's name, [...] The surface is blue. Maternal surface is questionableincomplete. Cut surface is dark red and spongy.The [...] are intact and range from0.05-0.1 cm in diameter.Coil Tier sections of cord, membranes, and placenta are submitted in sixcassettes.TASSummary of cassettes:A1 - cordA2, A3 - membranesA4, A5, A6 - solar manufacturer's representative sections of placentaSigned Out by:ANABEL PITTMANeported: 12/11/2016 Normal [facility] Healthcare Comment on above: Performed By: #### S UR ####[facility] [address] [place] [address] Red Blood Cellson 12-09-2016 Erythrocytes (RBC) Normal [facility] He althcare Comment on above: Result Comment: [id number] released Performed By: #### R C ####[facility] (UNKNOWN)[id number] [place], [place] [address] Type and Screenon 12-09-2016 Antibody Screen Negative Normal [facility] Healt hcare Comment on above: Performed By: #### T S3 ####[facility] [address] [place] [address] Group and Rh Positive Normal [facility] Healthca re Comment on above: Performed By: #### T S3 ####[facility] [address] [place] [address] PREG COMPL ECHO W/O NIKKI ALIZA VEYon 12-03-2016 PREG COMPL ECHO W/O NIKKI SURVEY DATE OF EXAM: Dec 03 2016 3:38PMCLINICAL HISTORY/ Name: KANIKA MCCULLOUGHUDY:PREG COMPL ECHO W/O NIKKI SURVEY 12/03/2016 3:38 pmINDICATION:Growth assessment. Placenta previa.COMPARISON:Repor t from a previous obstetrical ultrasound of 10/30/2016 was reviewed. [place] CLINICIAN:KEITH ROSAS:Routine ultrasound of the pelvis was performed. Evaluation of the female pelvis was performed by transabdominal technique. Static images were obtained for remote interpretation.FINDINGS :There is a single live intrauterine gestation in [...] closed with length of 3.3 cm. Normal [facility] Healthcare Culture Urineon 11-06-2016 Culture Urine STATUS: FINAL REPORT SITE: SOURCE: Urine Culture Urine: <1,000 cfu/ml--No growth Normal [facility] Comment on above: Performed By: #### 6 [id number] ####[facility] [address] [place] [address] Vital Signs Date Time Vital Sign Value Performing Clinician Facility 08-08-2024 14:32-0400 Body mass index (BMI) [Ratio] 39.33 kg/m2 Andrea Prieto DO Work Phone: [facility] 08-08-2024 14:32-0400 Body weight 100.7 kg Andrea Conner DO Work Phone: [facility] 08-08-2024 14:32-0400 Diastolic blood pressure 78 mm[Hg] Andrea Conner DO Work Phone: [facility] 08-08-2024 14:32-0400 Systolic blood pressure 122 mm[Hg] Andrea Conner DO Work Phone: [facility] 07-25-2024 11:01-0400 Body mass index (BMI) [Ratio] 39.55 kg/m2 Dina Gerard TEAM SUPERVISOR Work Phone: [facility] 07-25-2024 11:01-0400 Body weight 101.27 kg Dina Moustapha TEAM SUPERVISOR Work Phone: [facility] 07-25-2024 11:01-0400 Diastolic blood pressure 80 mm[Hg] Dina Moustapha TEAM SUPERVISOR Work Phone: [facility] 07-25-2024 11:01-0400 Systolic blood pressure 116 mm[Hg] Dina Moustapha TEAM SUPERVISOR Work Phone: [facility] 07-11-2024 11:22-0400 Body mass index (BMI) [Ratio] 39.37 kg/m2 Andrea Conner DO Work Phone: [facility] 07-11-2024 11:22-0400 Body weight 100.81 kg Andrea Conner DO Work Phone: [facility] 07-11-2024 11:22-0400 Diastolic blood pressure 80 mm[Hg] Andrea Conner DO Work Phone: [facility] 07-11-2024 11:22-0400 Systolic blood pressure 120 mm[Hg] Andrea Conner DO Work Phone: [facility] 06-22-2024 13:40-0400 Body mass index (BMI) [Ratio] 39.33 kg/m2 Andrea Conner DO Work Phone: [facility] 06-22-2024 13:40-0400 Body weight 100.7 kg Andrea Conner DO Work Phone: [facility] 06-22-2024 13:40-0400 Diastolic blood pressure 74 mm[Hg] Andrea Conner DO Work Phone: [facility] 06-22-2024 13:40-0400 Systolic blood pressure 118 mm[Hg] Andrea Conner DO Work Phone: [facility] 04-19-2024 10:48-0500 Body mass index (BMI) [Ratio] 37.2 kg/m2 Andrea Conner DO Work Phone: [facility] 04-19-2024 10:48-0500 Body weight 95.25 kg Andrea Conner DO Work Phone: [facility] 04-19-2024 10:48-0500 Diastolic blood pressure 80 mm[Hg] Andrea Conner DO Work Phone: [facility] 04-19-2024 10:48-0500 Systolic blood pressure 122 mm[Hg] Andrea Conner DO Work Phone: [facility] 02-28-2024 09:00-0500 Blood Pressure Location TIARRA CAVANAUGHZ [facility] 02-28-2024 09:00-0500 Body temperature 98.96 [degF] TIARRA KATZ [facility] 02-28-2024 09:00-0500 Diastolic blood pressure 80 mm[Hg] TIARRA KATZ [facility] 02-28-2024 09:00-0500 Heart rate 92 /min GRAND SALINE KATZ [facility] 02-28-2024 09:00-0500 SaO2% (BldA) [Mass fraction] 98 % GRAND SALINE KATZ [facility] 02-28-2024 09:00-0500 Systolic blood pressure 124 mm[Hg] TIARRA KATZ [facility] 12-28-2023 08:37-0400 Body height 160 cm Karen Bolanos MD Work Phone: [facility] 12-28-2023 08:37-0400 Body mass index (BMI) [Ratio] 37.02 kg/m2 Karen Bolanos MD Work Phone: [facility] 12-28-2023 08:37-0400 Body temperature 98.6 [degF] Karen Bolanos MD Work Phone: [facility] 12-28-2023 08:37-0400 Body weight 94.8 kg Karen Bolanos MD Work Phone: [facility] 12-28-2023 08:37-0400 Diastolic blood pressure 78 mm[Hg] Karen Bolanos MD Work Phone: [facility] 12-28-2023 08:37-0400 Heart rate 76 /min Karen Bolanos MD Work Phone: [facility] 12-28-2023 08:37-0400 SaO2% (BldA) [Mass fraction] 98 % Karen Bolanos MD Work Phone: [facility] 12-28-2023 08:37-0400 Systolic blood pressure 116 mm[Hg] Karen Bolanos MD Work Phone: [facility] 06-08-2023 09:50-0400 Body height 160 cm Rahul Zheng MD Work Phone: [facility] 06-08-2023 09:50-0400 Body weight 89 kg Rahul Zheng MD Work Phone: [facility] 06-08-2023 09:50-0400 Diastolic blood pressure 83 mm[Hg] Rahul Zheng MD Work Phone: [facility] 06-08-2023 09:50-0400 Systolic blood pressure 132 mm[Hg] Rahul Zheng MD Work Phone: [facility] 03-16-2023 15:08-0500 Blood Pressure Location TIARRA KATZ [facility] 03-16-2023 15:08-0500 Body temperature 98.42 [degF] GRAND SALINE KATZ [facility] 03-16-2023 15:08-0500 Diastolic blood pressure 84 mm[Hg] GRAND SALINE KATZ [facility] 03-16-2023 15:08-0500 Heart rate 73 /min GRAND SALINE KATZ [facility] 03-16-2023 15:08-0500 SaO2% (BldA) [Mass fraction] 96 % [facility] 03-16-2023 15:08-0500 Systolic blood pressure 128 mm[Hg] GRAND SALINE KATZ [facility] 03-11-2021 12:17-0500 Body height 160 cm Karen Luis Miguel Other Phone: [facility] 03-11-2021 12:17-0500 Body temperature 98.06 [degF] Karen Luis Miguel Other Phone: [facility] 03-11-2021 12:17-0500 Diastolic blood pressure 67 mm[Hg] Karen Luis Miguel Other Phone: [facility] 03-11-2021 12:17-0500 Heart rate 78 /min Karen Luis Miguel Other Phone: [facility] 03-11-2021 12:17-0500 Respiratory rate 20 /min Karen Luis Miguel Other Phone: [facility] 03-11-2021 12:17-0500 SaO2% (BldA) [Mass fraction] 97 % Karen Bolanos Other Phone: [facility] 03-11-2021 12:17-0500 Systolic blood pressure 101 mm[Hg] Karen Bolanos Other Phone: [facility] Encounters Encounter Date Encounter Type Care Provider Facility Start: 08-08-2024 End: 08-08-2024 flow sheet Andrea Conner DO Work Phone: [facility] Comment on above: Third trimester preg will; 33 weeks gestation of ; Gestational diabetes mellitus (GDM), antepartum, gestational diabetes method of control unspecified Start: 08-08-2024 End: 08-08-2024 ambulatory ANDREA CONNER Not Available Start: 08-08-2024 End: 08-08-2024 Bamboo flowsheet Andrea Conner DO Work Phone: [facility] Start: 08-08-2024 End: 08-08-2024 Bamboo flowsheet Andrea Conner DO Work Phone: [facility] Start: 07-25-2024 End: 07-25-2024 Bamboo flowsheet Dina Moustapha TEAM SUPERVISOR Work Phone: [facility] Start: 07-25-2024 End: 07-25-2024 Bamboo flowsheet Dina Moustapha TEAM SUPERVISOR Work Phone: [facility] Start: 07-25-2024 End: 07-25-2024 flow sheet Dina Moustapha TEAM SUPERVISOR Work Phone: [facility] Comment on above: Third trimester preg will; 31 weeks gestation of Start: 07-25-2024 End: 07-25-2024 ambulatory DINA MOUSTAPHA Not Available Start: 07-20-2024 End: 07-20-2024 Telephone encounter Historical Maternal Medicine Start: 07-11-2024 End: 07-11-2024 flow sheet Andrea Conner DO Work Phone: [facility] Comment on above: Third trimester preg will; 29 weeks gestation of Start: 07-11-2024 End: 07-11-2024 ambulatory ANDREA CONNER Not Available Start: 07-08-2024 End: 07-08-2024 Clinisync Result Encounter Karyna BENITES Work Phone: [facility] Unsolicited Start: 07-08-2024 End: 07-08-2024 Clinisync Result Encounter Karyna BENITES Work Phone: [facility] Unsolicited Start: 06-22-2024 End: 06-22-2024 Bamboo flowsheet Andrea Conner DO Work Phone: [facility] Start: 06-22-2024 End: 06-22-2024 Bamboo flowsheet Andrea Conner DO Work Phone: [facility] Start: 06-22-2024 End: 06-22-2024 ambulatory ANDREA CONNER Not Available Start: 06-22-2024 End: 06-22-2024 flow sheet Andrea Conner DO Work Phone: [facility] Comment on above: Second trimester pre gnancy; 26 weeks gestation of ; Diabetes mellitus screening; size inconsistent with dates Start: 06-01-2024 End: 06-01-2024 ambulatory TRISTAN MERIDIETH Facility:[facility] Start: 06-01-2024 End: 06-01-2024 Patient encounter procedure Whi [employer] 3 Aviation Operations Specialist [facility] Comment on above: Encounter for anatomic survey (Primary Dx); Obesity affecting in second trimester, unspecified obesity type; Class 1 obesity without serious comorbidity with body mass index (BMI) of 34.0 to 34.9 in adult, unspecified obesity type; 23 weeks gestation of Start: 05-31-2024 End: 05-31-2024 ambulatory ANDREA CONNER Not Available Start: 05-27-2024 End: 05-27-2024 Transcribe Orders Aviation Operations Specialist Transcribe Provider Maternal Medicine Comment on above: Encounter for anatomic survey (Primary Dx) Start: 04-19-2024 End: 04-19-2024 Bamboo flowsheet Andrea Conner DO Work Phone: [facility] Start: 04-19-2024 End: 04-22-2024 Bamboo flowsheet Andrea Conner DO Work Phone: [facility] Start: 04-19-2024 End: 04-22-2024 Clinisync Result Encounter Andrea Conner DO Work Phone: [facility] Unsolicited Start: 04-19-2024 End: 04-20-2024 External Result Encounter Andrea Conner DO Work Phone: [facility] Unsolicited Start: 04-19-2024 End: 04-19-2024 Patient encounter procedure Andrea Conner DO Work Phone: [facility] Start: 04-19-2024 End: 04-19-2024 Periodic preventive med est patient 18-39 yrs Andrea Conner DO Work Phone: [facility] Comment on above: Well woman exam with routine gynecological exam; Screening, , for anatomic survey; Vaginal discharge; STD exposure; Second trimester ; 16 weeks gestation of ; Mass of right breast, unspecified quadrant; Neoplasm of unspecified behavior of breast; Other acne Start: 04-19-2024 End: 04-19-2024 ambulatory ANDREA CONNER Not Available Start: 03-14-2024 End: 03-14-2024 Clinisync Result Encounter Andrea Conner DO Work Phone: [facility] External Department Unsolicited Start: 03-14-2024 End: 03-14-2024 Clinisync Result Encounter Andrea Conner DO Work Phone: [facility] Unsolicited Start: 03-11-2024 End: 03-11-2024 Office outpatient visit 5 minutes [facility] Conner Nurse [facility] Comment on above: GA: 11w6d Start: 03-11-2024 End: 03-11-2024 ambulatory ADNREA CONNER Not Available Start: 02-28-2024 End: 02-28-2024 ambulatory TIARRA KATZ Facility: [facility] Start: 02-28-2024 End: 02-28-2024 Patient encounter procedure TIARRA KATZ [facility] Start: 02-16-2024 End: 02-16-2024 ambulatory Andressa G Jarad LOSS PREVENTION SUPERVISOR.HAND BLOCKER Work Phone: [facility] Comment on above: Records Start: 02-09-2024 End: 02-09-2024 Nursing evaluation of patient and report Fern Lamar MD Work Phone: [facility] Comment on above: resulting from assisted reproductive technology in first trimester Start: 02-09-2024 End: 02-09-2024 ambulatory ANDRESSAALTA ABRAHAM Facility:[facility] Start: 01-21-2024 End: 01-21-2024 ambulatory [facility] Start: 01-20-2024 End: 01-20-2024 ambulatory Andressaalta Abraham LOSS PREVENTION SUPERVISOR.HAND BLOCKER Work Phone: [facility] Comment on above: resulting from assisted reproductive technology in first trimester (Primary Dx) Start: 01-20-2024 End: 01-20-2024 Telemedicine consultation with patient Andressa Abraham LOSS PREVENTION SUPERVISOR.HAND BLOCKER Work Phone: [facility] Start: 01-19-2024 End: 01-19-2024 ambulatory JESSI YOO Facility:[facility] Start: 01-18-2024 End: 01-18-2024 Telephone encounter Andressa Abraham LOSS PREVENTION SUPERVISOR.HAND BLOCKER Work Phone: [facility] Comment on above: +hpt 01/15 after an iui Start: 01-02-2024 End: 01-02-2024 ambulatory ANYI GANT Facility:[facility] Start: 01-02-2024 End: 01-02-2024 Patient encounter procedure Anyi Gant MD Work Phone: [facility] Comment on above: Encounter for artifi cial insemination (Primary Dx) Procreative manageme nt (Primary Dx) Start: 12-30-2023 End: 12-30-2023 ambulatory ANDRESSA ABRAHAM Facility:[facility] Start: 12-28-2023 End: 12-28-2023 Shreyas Bolanos MD Work Phone: [facility] Start: 12-28-2023 End: 12-28-2023 Shreyas Bolanos MD Work Phone: [facility] Start: 12-28-2023 End: 12-28-2023 Office outpatient visit 15 minutes Karen Bolanos MD Work Phone: [facility] Comment on above: Infertility, female (Primary Dx); BMI 37.0-37.9, adult; Morbid obesity (CMS/HCC) Start: 12-28-2023 End: 12-28-2023 ambulatory KAREN BOLANOS Not Available Start: 12-05-2023 End: 12-05-2023 ambulatory ANDRESSA ABRAHAM Facility:[facility] Start: 12-05-2023 End: 12-05-2023 Patient encounter procedure Andrology Paster Hat Lining Work Phone: [facility] Comment on above: Procreative manageme nt (Primary Dx) Female infertility ( Primary Dx) Start: 12-04-2023 End: 12-04-2023 ambulatory Andressa Abraham LOSS PREVENTION SUPERVISOR.HAND BLOCKER Work Phone: [facility] Comment on above: Financial clearance Start: 11-23-2023 End: 11-23-2023 ambulatory Andressa Abraham LOSS PREVENTION SUPERVISOR.HAND BLOCKER Work Phone: [facility] Comment on above: Reproductive mgmt, i nfertility due to male factor (Primary Dx) Start: 11-23-2023 End: 11-23-2023 Telemedicine consultation with patient Andressa Abraham LOSS PREVENTION SUPERVISOR.HAND BLOCKER Work Phone: [facility] Start: 10-29-2023 E-mail encounter fro m caregiver Vidhya Pitt APRN.HAND BLOCKER Work Phone: [facility] Start: 10-29-2023 Follow-up encounter Vidhya Squires diananaldo LOSS PREVENTION SUPERVISOR.HAND BLOCKER Work Phone: [facility] Comment on above: Follow up Start: 10-16-2023 End: 10-16-2023 ambulatory JESSI YOO Facility:[facility] Start: 10-12-2023 Telephone encounter Andressa Abraham LOSS PREVENTION SUPERVISOR.HAND BLOCKER Work Phone: [facility] Comment on above: +ovulation test Sat& Sund d14 & 15 partner calling Start: 10-05-2023 ambulatory Andressa Deleon angelita LOSS PREVENTION SUPERVISOR.HAND BLOCKER Work Phone: [facility] Comment on above: Doner Start: 09-11-2023 End: 09-11-2023 ambulatory ANDRESSA ABRAHAM Facility:[facility] Start: 09-11-2023 End: 09-11-2023 Patient encounter procedure Andressa Abraham LOSS PREVENTION SUPERVISOR.HAND BLOCKER Work Phone: [facility] Comment on above: Encounter for fertil ity planning (Primary Dx) Start: 07-28-2023 Telephone encounter Rahul carroll MD Work Phone: [facility] Comment on above: Lila bloodwork compl eted today Start: 06-15-2023 End: 06-15-2023 ambulatory Andressa Abraham LOSS PREVENTION SUPERVISOR.HAND BLOCKER Work Phone: [facility] Comment on above: Encounter for fertil ity planning (Primary Dx); Encounter for other genetic testing of female for procreative management Start: 06-15-2023 End: 06-15-2023 Telemedicine consultation with patient Andressa Abraham LOSS PREVENTION SUPERVISOR.HAND BLOCKER Work Phone: [facility] Start: 06-08-2023 End: 06-08-2023 Patient encounter procedure Rahul Zheng MD Work Phone: [facility] Comment on above: Procreative manageme nt counseling (Primary Dx); BMI 34.0-34.9,adult Start: 03-16-2023 End: 03-16-2023 ambulatory TIARRA KATZ Facility[facility] [facility] Start: 03-16-2023 End: 03-16-2023 Patient encounter procedure TIARRA KATZ [facility] Start: 03-19-2022 End: 03-19-[address] ANDREA PRIETO Facility: Start: 03-11-2021 End: 03-11-2021 Emergency department patient visit Filomena Zamora [facility] Start: 12-09-2016 End: 12-11-2016 Evaluation and management of inpatient KEITH [place] Facility:[facility] [employer] Start: 12-03-2016 Ambulatory KEITH [place] Facility: [facility] [employer] Start: 11-13-2016 End: 11-13-2016 Ambulatory CHARLIE JOEL Facility:[facility] Start: 11-06-2016 Ambulatory CHARLIE JOEL Faci lity:[facility] [employer] Procedures Date Procedure Procedure Detail Performing Clinician Start: 08-08-2024 Urnls dip stick/tabl et rgnt non-auto w/o micrscp Andrea Conner DO Work Phone: Start: 07-25-2024 Urnls dip stick/tabl et rgnt non-auto w/o micrscp Dina Gerard TEAM SUPERVISOR Work Phone: Start: 07-08-2024 ALL CBC WITH AUTO DIFF Karyna BENITES Work Phone: Start: 06-27-2024 Urnls dip stick/tabl et rgnt non-auto w/o micrscp Andrea Conner DO Work Phone: Start: 06-01-2024 Us preg uterus after 1st trimest 03/30 gestation Tristan Gloria LOSS PREVENTION SUPERVISOR.HAND BLOCKER Work Phone: Start: 04-19-2024 RECURRENT VAGINITIS (HTRX) Andrea Conenr DO Work Phone: Start: 04-19-2024 Urnls dip stick/tabl et rgnt non-auto w/o micrscp Andrea Conner DO Work Phone: Start: 04-19-2024 IGP,APTIMA HPV,AGE GDLN AndreaLoiLo Work Phone: Start: 04-19-2024 Microscopic observat ion [Identifier] in Cervix by Cyto stain AndreaGurnard [employer] DO Work Phone: Start: 03-14-2024 ALL CBC WITH AUTO DIFF AndreaLoiLo Work Phone: Start: 03-11-2024 Urnls dip stick/tabl et rgnt non-auto w/o micrscp AndreaGurnard [employer] DO Work Phone: Start: 02-09-2024 Us preg uterus after 1st trimest 03/30 gestation Andressa Tulio Abraham LOSS PREVENTION SUPERVISOR.HAND BLOCKER Work Phone: Start: 03-19-2022 Microscopic observat ion [Identifier] in Cervix by Cyto stain Karen Bolanos MD Work Phone: section TIARRA CALVO Removal of intrauter ine device TIARRA KATZ Plan of Treatment Date Care Activity Detail Author Start: 04-19-2029 Screening for malign ant neoplasm of cervix [facility] Start: 03-19-2025 Screening for malign ant neoplasm of cervix [facility] Start: 11-28-2024 Influenza vaccination Influenz a Vaccine (Season Ended) [facility] Start: 08-23-2024 End: 08-23-2024 Patient encounter procedure 08/23/2024 1:10 PM EDT Routine [facility] [address] [place] [address] Karyna Craig PA [address] [place] [address] [facility] Start: 08-08-2024 End: 08-08-2024 Patient encounter procedure [facility] Comment on above: Arrived Start: 08-08-2024 End: 02-08-2025 US biophysical profile w non stress test US biophysical profile w non stress test Imaging Routine Third trimester 33 weeks gestation of Gestational diabetes mellitus (GDM), antepartum, gestational diabetes method of control unspecified Expected: 08/08/2024 (Approximate), Expires: 02/08/2025 [facility] Work Phone: Comment on above: Expected: 08/08/2024 (Approximate), Expires: 02/08/2025 Start: 08-08-2024 End: 12-09-2024 US for US OB follow up transabdominal approach Imaging Routine Third trimester 33 weeks gestation of Gestational diabetes mellitus (GDM), antepartum, gestational diabetes method of control unspecified Expected: 08/08/2024, Expires: 12/09/2024 [facility] Comment on above: Expected: 08/08/2024 , Expires: 12/09/2024 Start: 07-25-2024 End: 07-25-2024 Patient encounter procedure [facility] Comment on above: Arrived Start: 07-11-2024 End: 07-11-2024 Patient encounter procedure 07/11/2024 11:00 AM EDT Routine [facility] [address] [place] [id number] Andrea Prieto, DO [address] [place] [address] [facility] Start: 07-11-2024 End: 07-11-2024 Professional / ancillary services management 07/11/2024 10:30 AM EDT Ancillary Procedure [facility] [address] [place] [address] [facility] Start: 07-05-2024 End: 07-05-2024 Patient encounter procedure 07/05/2024 11:00 AM EDT Office Visit [facility] [address] [place] [id number] Andrea Prieto, DO [address] [place] [address] [facility] Start: 06-22-2024 End: 06-22-2025 CBC panel - Blood by Automated count CBC Lab Routine Diabetes mellitus screening Expected: 06/22/2024 (Approximate), Expires: 06/22/2025 [facility] Comment on above: Expected: 06/22/2024 (Approximate), Expires: 06/22/2025 Start: 06-22-2024 End: 06-22-2025 Measurement of glucose 1 hour after glucose challenge for glucose tolerance test Glucose tolerance, 1 hour Lab Routine Diabetes mellitus screening Expected: 06/22/2024 (Approximate), Expires: 06/22/2025 [facility] Comment on above: Expected: 06/22/2024 (Approximate), Expires: 06/22/2025 Start: 06-22-2024 End: 06-22-2025 US for US OB follow up transabdominal approach Imaging Routine size inconsistent with dates Expected: 06/22/2024, Expires: 06/22/2025 [facility] Work Phone: Comment on above: Expected: 06/22/2024 , Expires: 06/22/2025 Start: 06-01-2024 End: 06-01-2024 Patient encounter procedure 06/01/2024 11:00 AM EST Routine Office Visit [facility] [address] [place] [address] anatomy [facility] Comment on above: anatomy Start: 05-27-2024 End: 05-27-2025 OBSTETRIC ULTRASOUND [facility] OBSTETRIC ULTRASOUND [facility]I Anc Imaging Routine Encounter for anatomic survey Expected: 05/27/2024, Expires: 05/27/2025 [facility] Work Phone: Comment on above: Expected: 05/27/2024 , Expires: 05/27/2025 Start: 04-19-2024 End: 06-17-2024 Alpha fetoprotein, maternal Alpha fetoprotein, maternal Lab Routine Screening, , for anatomic survey Expected: 04/19/2024 (Approximate), Expires: 06/17/2024 [facility] Comment on above: Expected: 04/19/2024 (Approximate), Expires: 06/17/2024 Start: 04-19-2024 End: 06-17-2025 US Breast - right Right breast US complete Imaging Routine Mass of right breast, unspecified quadrant Neoplasm of unspecified behavior of breast Expected: 04/19/2024, Expires: 06/17/2025 [facility] Comment on above: Expected: 04/19/2024 , Expires: 06/17/2025 Start: 04-19-2024 End: 04-19-2024 Patient encounter procedure 04/19/2024 10:30 AM EST Routine [facility] [address] [place] [phone] Andrea Prieto, DO [address] [place] [address] [place] [address] Arrived [facility] Comment on above: Arrived Start: 04-12-2024 End: 04-12-2024 Patient encounter procedure 04/12/2024 11:10 AM EST Routine [facility] [address] [place] [address] Andrea Prieto, DO [address] [place] [address] [place] [address] [facility] Start: 03-11-2024 End: 03-11-2025 [...] AM EST Nurse Visit [facility] [address] [place] [address] Rej, Nurse Sarmad [facility] [address] [place] [address] ob scan [facility] Comment on above: ob scan Start: 01-25-2024 End: 01-25-2024 Patient encounter procedure 01/25/2024 9:40 AM EDT Office Visit [facility] [address] [place] [address] Andrea Prieto, DO [address] [place] [address] [facility] Start: 01-20-2024 End: 01-19-2025 OBSTETRIC ULTRASOUND WHI OBSTETRIC ULTRASOUND [facility] Anc Imaging Routine resulting from assisted reproductive technology in first trimester Expected: 01/20/2024, Expires: 01/19/2025 [facility] Work Phone: Comment on above: Expected: 01/20/2024 , Expires: 01/19/2025 Start: 12-28-2023 End: 12-28-2023 Patient encounter procedure 12/28/2023 8:20 AM EDT Office Visit [facility] [address] [place] [phone] Karen Bolanos MD [address] [place] [address] Arrived [facility] Comment on above: Arrived Start: 12-05-2023 End: 12-05-[address] [facility] Comment on above: donor thaw IUI-D Start: 11-29-2023 Covid-19 Vaccine ( season) Covid-19 Vaccine ( season) [facility] Start: 11-29-2023 Covid-19 Vaccine ( season) Covid-19 Vaccine () [facility] Start: 11-29-2023 Influenza vaccination Influenza Vacc ine (#1) [facility] Start: 10-12-2023 End: 01-11-2024 Progesterone [Mass/volume] in Serum or Plasma PROGESTERONE Lab Routine Female infertility Expected: 10/12/2023, Expires: 01/11/2024 [facility] Work Phone: Comment on above: Expected: 10/12/2023 , Expires: 01/11/2024 Start: 06-15-2023 End: 09-14-2023 CARRIER SCREEN, EXPANDED CARRIER SCREEN, EXPANDED Lab Routine Encounter for other genetic testing of female for procreative management Expected: 06/15/2023, Expires: 09/14/2023 [facility] Work Phone: Comment on above: Expected: 06/15/2023 , Expires: 09/14/2023 Start: 03-30-2023 Behavioral Health Screening Behavioral Health Screening [facility] Start: 03-30-2023 Depression Assessment Depression Ass essment [facility] Start: 11-28-2022 Covid-19 Vaccine ( season) Covid-19 Vaccine () [facility] Start: 11-28-2022 Influenza vaccination Influenza Vacc ine (#1) [facility] Start: 08-01-2021 Screening for malign ant neoplasm of cervix [facility] Start: 03-18-2018 Screening for malign ant neoplasm of cervix Pap Testing [facility] Start: 03-18-2016 Screening for malign ant neoplasm of cervix Cervical Cancer Screening [facility] Start: 08-01-2009 Anxiety Screening Anxiety Screening [facility] Start: 08-01-2009 Depression Screening Depression Scre ening [facility] Start: 08-01-2009 Hepatitis C screening Hepatitis C Sc nicki [facility] Start: 08-01-2009 HIV screening HIV Screening [facility] Start: 01-05-2004 Hepatitis B Vaccine (2 of 3 - 3-dose series) Hepatitis B Vaccine (2 of 3 - 3-dose series) [facility] Start: 08-01-2002 Urine microalbumin profile DTaP,Tdap,Td Vaccine (5 - Tdap) [facility] Bacteria identified in Urine by Culture Urine culture Microbiology Routine Missed menses Ordered: 03/11/2024 [facility] Comment on above: Ordered: 03/11/2024 CBC W Auto Different ial panel - Blood CBC and differential Lab Routine Missed menses , unspecified gestational age Ordered: 03/11/2024 [facility] Comment on above: Ordered: 03/11/2024 CHLAMYDIA TRACHOMATI S (GENITO/STI) CHLAMYDIA TRACHOMATIS (GENITO/STI) Lab Routine Vaginal discharge STD exposure Ordered: 04/19/2024 [facility] Comment on above: Ordered: 04/19/2024 End: 01-17-2025 Choriogonadotropin.beta subunit [Units/volume] in Serum or Plasma HCG QUANTITATIVE Lab Routine Encounter for test, result positive 2x per week for 2 Occurrences starting 01/18/2024 until 01/17/2025 [facility] Work Phone: Comment on above: 2x per week for 2 Oc currences starting 01/18/2024 until 01/17/2025 Cytology Cervical or vaginal smear or scraping study Pap Smear Pathology and Cytology Routine Well woman exam with routine gynecological exam Ordered: 04/19/2024 [facility] Work Phone: Comment on above: Ordered: 04/19/2024 Hemoglobin A1c/Hemoglobin.total in Blood Hemoglobin A1c Lab Routine Missed menses , unspecified gestational age Ordered: 03/11/2024 [facility] Comment on above: Ordered: 03/11/2024 Hepatitis B virus surface Ag [Presence] in Serum or Plasma by Immunoassay Hepatitis B surface antigen Lab Routine Missed menses , unspecified gestational age Ordered: 03/11/2024 [facility] Comment on above: Ordered: 03/11/2024 Hepatitis C virus Ab [Presence] in Serum or Plasma by Immunoassay Hepatitis C antibody Lab Routine Missed menses , unspecified gestational age Ordered: 03/11/2024 [facility] Comment on above: Ordered: 03/11/2024 HIV-1/HIV-2 antigen/antibody combination immunoassay HIV-1 and HIV-2 antibodies Lab Routine Missed menses , unspecified gestational age Ordered: 03/11/2024 [facility] Comment on above: Ordered: 03/11/2024 Human papilloma viru s DNA [Presence] in Unspecified specimen by Probe with amplification HPV DNA probe, amplified Microbiology Routine Well woman exam with routine gynecological exam Ordered: 04/19/2024 [facility] Comment on above: Ordered: 04/19/2024 Neisseria gonorrhoea e DNA [Presence] in Unspecified specimen by PENNY with probe detection Neisseria gonorrhea DNA probe, direct Lab Routine Vaginal discharge STD exposure Ordered: 04/19/2024 [facility] Comment on above: Ordered: 04/19/2024 Reagin Ab [Presence] in Serum by RPR RPR Lab Routine Missed menses , unspecified gestational age Ordered: 03/11/2024 [facility] Comment on above: Ordered: 03/11/2024 Rubella antibody, IgG Rubella an tibody, IgG Lab Routine Missed menses , unspecified gestational age Ordered: 03/11/2024 [facility] Comment on above: Ordered: 03/11/2024 SURESWAB(R) ADVANCED VAGINITIS PLUS, TMA SURESWAB(R) ADVANCED VAGINITIS PLUS, TMA Pathology and Cytology Routine Vaginal discharge STD exposure Ordered: 04/19/2024 [facility] Comment on above: Ordered: 04/19/2024 Immunizations Immunization Date Immunization Notes Care Provider [facility] 09-13-2023 measles, mumps and rubella virus vaccine Karen Bolanos MD Work Phone: [facility] 06-15-2023 influenza, injectable, quadrivalent, contains preservative Karen Bolanos MD Work Phone: [facility] 06-15-2023 influenza virus vaccine, unspecified formulation Andressa Abraham APRN.CNP Work Phone: [facility] 08-17-2020 SARS-CoV-2 (COVID-19 ) mRNA-1273 vaccine TIARRA KATZ [facility] 07-20-2020 SARS-CoV-2 (COVID-19 ) mRNA-1273 vaccine TIARRA MADALYN [facility] 12-10-2016 influenza virus vaccine, unspecified formulation [facility] 12-10-2016 influenza, injectable, quadrivalent, preservative free Karen Bolanos MD Work Phone: [facility] 02-16-2009 novel [id number], preservative-free, injectable Karen Bolanos MD Work Phone: [facility] 12-08-2003 hepatitis B vaccine, pediatric or pediatric/adolescent dosage [facility] 12-08-2003 measles, mumps and rubella virus vaccine [facility] 12-08-2003 tetanus toxoid, adsorbed Karen Bolanos MD Work Phone: [facility] 10-27-1996 measles, mumps and rubella virus vaccine [facility] 02-08-1993 diphtheria, tetanus toxoids and acellular pertussis vaccine Karen Bolanos MD Work Phone: [facility] 02-08-1993 diphtheria, tetanus toxoids and acellular pertussis vaccine, unspecified formulation Karen Bolanos MD Work Phone: [facility] 02-08-1993 DTaP, unspecified formulation [facility] 02-08-1993 haemophilus influenzae type b vaccine, conjugate unspecified formulation Kraen Bolanos MD Work Phone: [facility] 02-08-1993 haemophilus influenzae type b vaccine, HbOC conjugate Karen Bolanos MD Work Phone: [facility] 02-08-1993 Hib, unspecified [facility] 02-08-1993 poliovirus vaccine, unspecified formulation Karen Bolanos MD Work Phone: [facility] 02-07-1992 diphtheria, tetanus toxoids and acellular pertussis vaccine Karen Bolanos MD Work Phone: [facility] 02-07-1992 diphtheria, tetanus toxoids and acellular pertussis vaccine, unspecified formulation Karen Bolanos MD Work Phone: [facility] 02-07-1992 DTaP, unspecified formulation TIARRA KATZ [facility] 02-07-1992 haemophilus influenzae type b vaccine, conjugate unspecified formulation Karen Bolanos MD Work Phone: [facility] 02-07-1992 haemophilus influenzae type b vaccine, HbOC conjugate Karen Bolanos MD Work Phone: [facility] 02-07-1992 Hib, unspecified formulation TIARRA KATZ [facility] 1991 diphtheria, tetanus toxoids and acellular pertussis vaccine Karen Bolanos MD Work Phone: [facility] 1991 diphtheria, tetanus toxoids and acellular pertussis vaccine, unspecified formulation Karen Bolanos MD Work Phone: [facility] 1991 DTaP, unspecified formulation TIARRA KATZ [facility] 1991 haemophilus influenzae type b vaccine, conjugate unspecified formulation Karen Bolanos MD Work Phone: [facility] 1991 haemophilus influenzae type b vaccine, HbOC conjugate Karen Bolanos MD Work Phone: [facility] 1991 Hib, unspecified formulation TIARRA KATZ [facility] 1991 poliovirus vaccine, unspecified formulation Karen Bolanos MD Work Phone: [facility] 1991 diphtheria, tetanus toxoids and acellular pertussis vaccine Karen Bolanos MD Work Phone: [facility] 1991 diphtheria, tetanus toxoids and acellular pertussis vaccine, unspecified formulation Karen Bolanos MD Work Phone: [facility] 1991 DTaP, unspecified formulation TIARRA KATZ [facility] 1991 haemophilus influenzae type b vaccine, conjugate unspecified formulation Karen Bolanos MD Work Phone: [facility] 1991 haemophilus influenzae type b vaccine, HbOC conjugate Karen Bolanos MD Work Phone: [facility] 1991 Hib, unspecified formulation TIARRA KATZ [facility] 1991 poliovirus vaccine, unspecified formulation Karen Bolanos MD Work Phone: [facility] NEGATED: Highlighted row has not occurred!03-16-2023 influenza virus vaccine, unspecified formulation TIARRA KATZ [facility] Payers Date Payer Category Payer Unknown [id number] 2022 [facility] 1.2.8 [id number] 2022 Unknown 2022 Unknown [id number] 1991 Unknown [id number] 2.16.84 [id number] 1991 Unknown [id number] 2.16.8 [id number] 1991 Unknown [id number] 2.16.8 [id number] 1991 Unknown [id number] 2.16.8 [id number] 1991 Unknown [id number] 2.16.84 [id number] 1991 Unknown [id number] 2.16.84 [id number] 1991 Unknown [id number] 2.16.84 [id number] 1991 Unknown [id number] 2.16.84 [id number] 1991 Unknown [id number] 2.16.84 [id number] 1991 Unknown [id number] 2.16.84 [id number] 1991 Unknown [id number] 2.16.84 [id number] 1991 Unknown [id number] 2.16.84 [id number] 1991 Unknown [id number] 2.16.84 [id number] 1959 Unknown [id number] Unknown [id number] Social History Date Type Detail Facility [facility] Start: 11-11-2022 End: 03-16-2023 Tobacco smoking status Never smoked tobacco (finding) [facility] Tobacco smoking status Never [facility] Start: 06-08-2023 End: 12-28-2023 Sex Assigned At Female [facility] Start: 04-12-2012 End: 11-11-2022 Tobacco use and exposure Smokeless tobacco non-user [facility] Start: 06-08-2023 End: 08-08-2024 Alcohol intake Current drinker of alcohol (finding) [facility] Start: 06-08-2023 End: 12-28-2023 History of Social function [facility] Start: 04-12-2012 Alcohol Comment social [facility] Start: 1991 Sex [facility]igned At [facility] Sex Assigned At Female [facility] Start: 06-11-2022 Gender identity Identifies as female gender (finding) [facility] Start: 01-12-2023 Sexual orientation Homosexual (findi ng) [facility] Start: 11-10-2022 Alcohol Comment 1-2 drinks les s than monthly in the past year, Caffeine intake: 1-2 cups per day [facility] Start: 01-02-2024 [facility] Medical Equipment Procedure Code Equipment Code Equipment Origin al Text Equipment Identifier Dates 1 strip by In Vi tro route Daily Use in the morning prior to breakfast, 1 hour after each meal for a total of 4times daily. [id number] Start: 07-12-2024 End: 08-11-2024 1 each by In Vit ro route Daily Use to check FSBS four times daily [id number] Start: 07-12-2024 End: 08-11-2024 Goals Date Patient Goal Desired Activity /State Personal health goal Functional Status Date Assessment Result Facility 02-28-2024 Functional Status N/A [facility] 03-16-2023 Functional Status N/A [facility] Clinical Notes 03-16-2023 to 08-08-2024 Shanika Rubi MA - 08/08/2024 2:10 PM EDTDina Gerard NP - 07/25/2024 10:40 AM EDTTelephone Encounter - Jessy Lilly RN - 07/20/2024 1:17 PM KAMARI Lund - 06/22/2024 1:20 PM EDT Note Date & Type Note Facility 08-08-2024 History of Presen t illness Narrative Reason for Appointment: Patient ID: Nelli Carpenter is a 34 y.o. female who presents for Routine Visit Patient presents today for Return OB appointment. MEDICATIONS Current Outpatient Medications Medication Instructions Alcohol Swabs (Alcohol Prep Pad) 70 % pads 1 Pad, Topical, Daily, Use four times daily to check FSBS. Blood Glucose Monitoring Suppl (D-Care Glucometer) w/Device kit 1 kit, Does not apply, Daily, Use four times daily to check FSBS. In the morning prior to breakfast & 1 hour after each meal for a total of 4times daily. clindamycin (Cleocin-T) 1 % lotion Topical, 2 times daily Glucose Blood (Blood Glucose Test) strip 1 strip, In Vitro, Daily, Use in the morning prior to breakfast, 1 hour after each meal for a total of 4times daily. Lancets Ultra Thin misc 1 each, In Vitro, Daily, Use to check FSBS four times daily ALLERGIES No Known Allergies PROBLEMS Active Ambulatory Problems Diagnosis Date Noted Mild episode of recurrent major depressive disorder (HCC) ([facility]) 12/28/2023 Restless leg 12/28/2023 Resolved Ambulatory Problems Diagnosis Date Noted No Resolved Ambulatory Problems Past Medical History: Diagnosis Date Asthma BMI 28.0-28.9,adult Depression screening GERD (gastroesophageal reflux disease) History of chlamydia infection HPV in female Well woman exam HISTORY PAST MEDICAL HISTORY SOCIAL HISTORY Past Medical History: Diagnosis Date Asthma BMI 28.0-28.9,adult Depression screening GERD (gastroesophageal reflux disease) History of chlamydia infection HPV in female Well woman exam Social History Tobacco Use Smoking status: Never Smokeless tobacco: Never Substance Use Topics Alcohol use: Yes Comment: 1-2 drinks less than monthly in the past year, Caffeine intake: 1-2 cups per day Drug use: Never FAMILY HISTORY Family History Problem Relation Name Age of Onset COPD Mother Diabetes Maternal Grandmother SURGICAL HISTORY Past Surgical History: Procedure Laterality Date SECTION, LOW TRANSVERSE 12/09/2016 DILATION AND CURETTAGE 11/2015 VAGINAL DELIVERY 07/15/2014 WISDOM TOOTH EXTRACTION REVIEW OF SYSTEMS Review of Systems: Review of Systems All other systems reviewed and are negative. OBJECTIVE Objective: Physical Exam Constitutional: Appearance: Normal appearance. She is well-developed. Cardiovascular: Rate and Rhythm: Normal rate and regular rhythm. Pulmonary: Effort: Pulmonary effort is normal. Breath sounds: Normal breath sounds. Abdominal: General: Bowel sounds are normal. There is no distension. Palpations: Abdomen is soft. Tenderness: There is no abdominal tenderness. There is no guarding or rebound. Musculoskeletal: General: No swelling. Normal range of motion. Right lower leg: No edema. Left lower leg: No edema. Neurological: Mental Status: She is alert and oriented to person, place, and time. Skin: General: Skin is warm and dry. Psychiatric: Mood and Affect: Mood normal. Behavior: Behavior normal. Vitals and nursing note reviewed. Exam conducted with a wood cutter present. Vitals: Estimated body mass index is 39.33 kg/m as calculated from the following: Height as of 24: 5' 3 . Weight as of this encounter: 222 lb. BP: 122/78 Patient's last menstrual period was 12/19/2023. ASSESSMENT & PLAN ICD-10-CM 1. Third trimester Z34.93 POCT urinalysis dipstick manually resulted 2. 33 weeks gestation of Z3A.33 Return OB: Patient presents today for a routine obstetrics appointment. Patient is currently 33w2d . Patient states she is doing well but has complaints of being tired due to current . Patient has verbalizes frequent movement. labor precautions was discussed/given and patient was instructed to perform kick counts three times a day. Reviewed sugar results and discussed dietary changes & patient will send results for System Trainer next Thursday. Patient is also to start NST/BPP. Order will be sent to [facility] anf [facility] Scheduling. Patient given handout as well. Patient to have sugars monitored locally and is going to cancel upcoming appointment with [facility] telemedicine. Orders Placed This Encounter Procedures POCT urinalysis dipstick manually resulted Follow Up: Patient is to return to office in 3 week for routine OB appointment. Documented by Liane Manzano LPN on behalf of: Andrea Prieto DO documented in this encounter [facility] 07-25-2024 History of Presen t illness Narrative Reason for Appointment: Patient ID: Nelli Carpenter is a 33 y.o. female who presents for Routine Visit Patient presents today for Return OB appointment. MEDICATIONS Current Outpatient Medications Medication Instructions Alcohol Swabs (Alcohol Prep Pad) 70 % pads 1 Pad, Topical, Daily, Use four times daily to check FSBS. Blood Glucose Monitoring Suppl (D-Care Glucometer) w/Device kit 1 kit, Does not apply, Daily, Use four times daily to check FSBS. In the morning prior to breakfast & 1 hour after each meal for a total of 4times daily. clindamycin (Cleocin-T) 1 % lotion Topical, 2 times daily Glucose Blood (Blood Glucose Test) strip 1 strip, In Vitro, Daily, Use in the morning prior to breakfast, 1 hour after each meal for a total of 4times daily. Lancets Ultra Thin misc 1 each, In Vitro, Daily, Use to check FSBS four times daily ALLERGIES No Known Allergies PROBLEMS Active Ambulatory Problems Diagnosis Date Noted Mild episode of recurrent major depressive disorder (HCC) ([facility]/HCC) 12/28/2023 Restless leg 12/28/2023 Resolved Ambulatory Problems Diagnosis Date Noted No Resolved Ambulatory Problems Past Medical History: Diagnosis Date Asthma BMI 28.0-28.9,adult Depression screening GERD (gastroesophageal reflux disease) History of chlamydia infection HPV in female Well woman exam HISTORY PAST MEDICAL HISTORY SOCIAL HISTORY Past Medical History: Diagnosis Date Asthma BMI 28.0-28.9,adult Depression screening GERD (gastroesophageal reflux disease) History of chlamydia infection HPV in female Well woman exam Social History Tobacco Use Smoking status: Never Smokeless tobacco: Never Substance Use Topics Alcohol use: Yes Comment: 1-2 drinks less than monthly in the past year, Caffeine intake: 1-2 cups per day Drug use: Never FAMILY HISTORY Family History Problem Relation Name Age of Onset COPD Mother Diabetes Maternal Grandmother SURGICAL HISTORY Past Surgical History: Procedure Laterality Date SECTION, LOW TRANSVERSE 12/09/2016 DILATION AND CURETTAGE 11/2015 VAGINAL DELIVERY 07/15/2014 WISDOM TOOTH EXTRACTION REVIEW OF SYSTEMS Review of Systems: Review of Systems Constitutional: Negative. HENT: Negative. Eyes: Negative. Respiratory: Negative. Cardiovascular: Negative. Gastrointestinal: Negative. Genitourinary: Negative. Musculoskeletal: Negative. Skin: Negative. Neurological: Negative. All other systems reviewed and are negative. Hematological: Negative. Endocrine: Negative. Allergic/Immunologic: Negative. OBJECTIVE Objective: Physical Exam Constitutional: Appearance: Normal appearance. She is well-developed. Cardiovascular: Rate and Rhythm: Normal rate and regular rhythm. Pulmonary: Effort: Pulmonary effort is normal. Breath sounds: Normal breath sounds. Abdominal: General: Bowel sounds are normal. There is no distension. Palpations: Abdomen is soft. Tenderness: There is no abdominal tenderness. There is no guarding or rebound. Musculoskeletal: General: No swelling. Normal range of motion. Right lower leg: No edema. Left lower leg: No edema. Neurological: Mental Status: She is alert and oriented to person, place, and time. Skin: General: Skin is warm and dry. Psychiatric: Mood and Affect: Mood normal. Behavior: Behavior normal. Vitals and nursing note reviewed. Exam conducted with a wood cutter present. Vitals: Estimated body mass index is 39.55 kg/m as calculated from the following: Height as of 12/28/23: 5' 3 . Weight as of this encounter: 223 lb 4 oz. BP: 116/80 Patient's last menstrual period was 12/19/2023. ASSESSMENT & PLAN ICD-10-CM 1. Third trimester Z34.93 POCT urinalysis dipstick manually resulted 2. 31 weeks gestation of Z3A.31 Return OB: Patient presents today for a routine obstetrics appointment. Patient is currently 31w2d . Patient states she is doing well but has complaints of being tired due to current . Patient has verbalizes frequent movement. labor precautions was discussed/given and patient was instructed to perform kick counts three times a day. Orders Placed This Encounter Procedures POCT urinalysis dipstick manually resulted Follow Up: Patient is to return to office in 2 week for routine OB appointment. Patient has completed level 2 Ultrasound at [facility] but has not yet met with [facility]. She is going to call them to schedule. Patient presents with Glucose monitor and strips today as she does not know how to use them. I reviewed with her how to properly use the meter and she was given Food and Glucose Journal to monitor glucose and meals. She feels comfortable using monitor today after review. Documented by Dina Gerard NP on behalf of: Dina Gerard NP documented in this encounter [facility] 07-20-2024 Telephone encounter Note Received outside referral from Dr. Prieto for GDM consult due to elevated 1 hour glucose 202. Called pt. To schedule appointment no answer, left message with call back phone number. Jsesy Lilly RN [facility] 07-20-2024 Miscellaneous Notes Received outside referral from Dr. Prieto for GDM consult due to elevated 1 hour glucose 202. Called pt. To schedule appointment no answer, left message with call back phone number. Jessy Lilly RN documented in this encounter [facility] 07-11-2024 History of Presen t illness Narrative Reason for Appointment: Patient ID: Nelli Carpenter is a 33 y.o. female who presents for Routine Visit Patient presents today for Return OB appointment. MEDICATIONS Current Outpatient Medications Medication Instructions clindamycin (Cleocin-T) 1 % lotion Topical, 2 times daily ALLERGIES No Known Allergies PROBLEMS Active Ambulatory Problems Diagnosis Date Noted Mild episode of recurrent major depressive disorder (HCC) ([facility]/HCC) 12/28/2023 Restless leg 12/28/2023 Resolved Ambulatory Problems Diagnosis Date Noted No Resolved Ambulatory Problems Past Medical History: Diagnosis Date Asthma BMI 28.0-28.9,adult Depression screening GERD (gastroesophageal reflux disease) History of chlamydia infection HPV in female Well woman exam HISTORY PAST MEDICAL HISTORY SOCIAL HISTORY Past Medical History: Diagnosis Date Asthma BMI 28.0-28.9,adult Depression screening GERD (gastroesophageal reflux disease) History of chlamydia infection HPV in female Well woman exam Social History Tobacco Use Smoking status: Never Smokeless tobacco: Never Substance Use Topics Alcohol use: Yes Comment: 1-2 drinks less than monthly in the past year, Caffeine intake: 1-2 cups per day Drug use: Never FAMILY HISTORY Family History Problem Relation Name Age of Onset COPD Mother Diabetes Maternal Grandmother SURGICAL HISTORY Past Surgical History: Procedure Laterality Date SECTION, LOW TRANSVERSE 12/09/2016 DILATION AND CURETTAGE 11/2015 VAGINAL DELIVERY 07/15/2014 WISDOM TOOTH EXTRACTION REVIEW OF SYSTEMS Review of Systems: Review of Systems Constitutional: Negative. HENT: Negative. Eyes: Negative. Respiratory: Negative. Cardiovascular: Negative. Gastrointestinal: Negative. Genitourinary: Negative. Musculoskeletal: Negative. Skin: Negative. Neurological: Negative. All other systems reviewed and are negative. Hematological: Negative. Endocrine: Negative. Allergic/Immunologic: Negative. OBJECTIVE Objective: Physical Exam Constitutional: Appearance: Normal appearance. She is well-developed. Cardiovascular: Rate and Rhythm: Normal rate and regular rhythm. Pulmonary: Effort: Pulmonary effort is normal. Breath sounds: Normal breath sounds. Abdominal: General: Bowel sounds are normal. There is no distension. Palpations: Abdomen is soft. Tenderness: There is no abdominal tenderness. There is no guarding or rebound. Musculoskeletal: General: No swelling. Normal range of motion. Right lower leg: No edema. Left lower leg: No edema. Neurological: Mental Status: She is alert and oriented to person, place, and time. Skin: General: Skin is warm and dry. Psychiatric: Mood and Affect: Mood normal. Behavior: Behavior normal. Vitals and nursing note reviewed. Exam conducted with a wood cutter present. Vitals: Estimated body mass index is 39.37 kg/m as calculated from the following: Height as of 12/28/23: 5' 3 . Weight as of this encounter: 222 lb 4 oz. BP: 120/80 Patient's last menstrual period was 12/19/2023. ASSESSMENT & PLAN ICD-10-CM 1. Third trimester Z34.93 2. 29 weeks gestation of Z3A.29 Patient presents today for a routine obstetrics appointment. Patient is currently 29w2d with a Estimated Date of Delivery: 09/24/24. Discussed recent 1 hour gtt and that she is Gestational Diabetic and referral will be done to [facility] for Diabetic management. Patient aware that supplies will be sent to pharmacy to take with her to referral appointment. Documented by Liane Manzano LPN on behalf of: Andrea Prieto DO documented in this encounter [facility] 06-22-2024 History of Presen t illness Narrative Reason for Appointment: Patient ID: Nelli Carpenter is a 33 y.o. female who presents for Routine Visit Patient presents today for Return OB appointment. MEDICATIONS Current Outpatient Medications Medication Instructions clindamycin (Cleocin-T) 1 % lotion Topical, 2 times daily ALLERGIES No Known Allergies PROBLEMS Active Ambulatory Problems Diagnosis Date Noted Mild episode of recurrent major depressive disorder (HCC) ([facility]/HCC) 12/28/2023 Restless leg 12/28/2023 Resolved Ambulatory Problems Diagnosis Date Noted No Resolved Ambulatory Problems Past Medical History: Diagnosis Date Asthma (CMS/[facility]) BMI 28.0-28.9,adult Depression screening GERD (gastroesophageal reflux disease) History of chlamydia infection HPV in female Well woman exam HISTORY PAST MEDICAL HISTORY SOCIAL HISTORY Past Medical History: Diagnosis Date Asthma ([facility]) BMI 28.0-28.9,adult Depression screening GERD (gastroesophageal reflux disease) History of chlamydia infection HPV in female Well woman exam Social History Tobacco Use Smoking status: Never Smokeless tobacco: Never Substance Use Topics Alcohol use: Yes Comment: 1-2 drinks less than monthly in the past year, Caffeine intake: 1-2 cups per day Drug use: Never FAMILY HISTORY Family History Problem Relation Name Age of Onset COPD Mother Diabetes Maternal Grandmother SURGICAL HISTORY Past Surgical History: Procedure Laterality Date SECTION, LOW TRANSVERSE 12/09/2016 DILATION AND CURETTAGE 11/2015 VAGINAL DELIVERY 07/15/2014 WISDOM TOOTH EXTRACTION REVIEW OF SYSTEMS Review of Systems: Review of Systems Constitutional: Negative. HENT: Negative. Eyes: Negative. Respiratory: Negative. Cardiovascular: Negative. Gastrointestinal: Negative. Genitourinary: Negative. Musculoskeletal: Negative. Skin: Negative. Neurological: Negative. All other systems reviewed and are negative. Hematological: Negative. Endocrine: Negative. Allergic/Immunologic: Negative. OBJECTIVE Objective: Physical Exam Constitutional: Appearance: Normal appearance. She is normal weight. HENT: Head: Normocephalic. Cardiovascular: Rate and Rhythm: Normal rate. Pulses: Normal pulses. Pulmonary: Effort: Pulmonary effort is normal. Breath sounds: Normal breath sounds. Abdominal: Palpations: Abdomen is soft. Musculoskeletal: General: Normal range of motion. Neurological: General: No focal deficit present. Mental Status: She is alert and oriented to person, place, and time. Psychiatric: Mood and Affect: Mood normal. Behavior: Behavior normal. Thought Content: Thought content normal. Judgment: Judgment normal. Vitals and nursing note reviewed. Vitals: Estimated body mass index is 39.33 kg/m as calculated from the following: Height as of 12/28/23: 5' 3 . Weight as of this encounter: 222 lb. BP: 118/74 Patient's last menstrual period was 12/19/2023. ASSESSMENT & PLAN ICD-10-CM 1. Second trimester Z34.92 POCT urinalysis dipstick manually resulted 2. 26 weeks gestation of Z3A.26 POCT urinalysis dipstick manually resulted 3. Diabetes mellitus screening Z13.1 CBC Glucose tolerance, 1 hour CBC Glucose tolerance, 1 hour 4. size inconsistent with dates O26.849 US OB follow up transabdominal approach US OB follow up transabdominal approach Return OB: Patient presents today for a routine obstetrics appointment. Patient is currently 26w4d . Patient states she is doing well but has complaints of being tired due to current . Patient has verbalizes frequent movement. labor precautions was discussed/given and patient was instructed to perform kick counts three times a day. Orders Placed This Encounter Procedures US OB follow up transabdominal approach CBC Glucose tolerance, 1 hour POCT urinalysis dipstick manually resulted Follow Up: Patient is to return to office in 2 week for routine OB appointment. Documented by KAMARI Zavala documented in this encounter [facility] 06-01-2024 Note HNO ID: [id number] Author: LEONID MYERS MD Service: ? Author Type: Physician Type: Progress Notes Filed: 06/01/2024 15:07 Note Text: Please see ultrasound report for details of this visit. Leonid Myers M.D. [facility] 06-01-2024 History of Presen t illness Narrative Please see ultrasound report for details of this visit. Leonid Myers M.D. documented in this encounter [facility] 04-19-2024 History of Presen t illness Narrative Reason for Appointment: Patient ID: Nelli Carpenter is a 33 y.o. female who presents for Routine Visit Patient presents today for Annual Exam., STD Check., and Return OB appointment. MEDICATIONS No current outpatient medications ALLERGIES No Known Allergies PROBLEMS Active Ambulatory Problems Diagnosis Date Noted Mild episode of recurrent major depressive disorder (HCC) ([facility]/HCC) 12/28/2023 Restless leg 12/28/2023 Resolved Ambulatory Problems Diagnosis Date Noted No Resolved Ambulatory Problems Past Medical History: Diagnosis Date Asthma (CMS/HCC) BMI 28.0-28.9,adult Depression screening GERD (gastroesophageal reflux disease) History of chlamydia infection HPV in female Well woman exam HISTORY PAST MEDICAL HISTORY SOCIAL HISTORY Past Medical History: Diagnosis Date Asthma ([facility]) BMI 28.0-28.9,adult Depression screening GERD (gastroesophageal reflux disease) History of chlamydia infection HPV in female Well woman exam Social History Tobacco Use Smoking status: Never Smokeless tobacco: Never Substance Use Topics Alcohol use: Yes Comment: 1-2 drinks less than monthly in the past year, Caffeine intake: 1-2 cups per day Drug use: Never FAMILY HISTORY Family History Problem Relation Name Age of Onset COPD Mother Diabetes Maternal Grandmother SURGICAL HISTORY Past Surgical History: Procedure Laterality Date SECTION, LOW TRANSVERSE 12/09/2016 DILATION AND CURETTAGE 11/2015 VAGINAL DELIVERY 07/15/2014 WISDOM TOOTH EXTRACTION REVIEW OF SYSTEMS Review of Systems: Review of Systems Constitutional: Negative. HENT: Negative. Eyes: Negative. Respiratory: Negative. Cardiovascular: Negative. Gastrointestinal: Negative. Genitourinary: Negative. Musculoskeletal: Negative. Skin: Negative. Neurological: Negative. All other systems reviewed and are negative. Hematological: Negative. Endocrine: Negative. Allergic/Immunologic: Negative. OBJECTIVE Objective: Physical Exam Constitutional: Appearance: Normal appearance. She is well-developed. Genitourinary: Vulva normal. Breasts: Breasts are soft. Right: Normal. Left: Normal. Cardiovascular: Rate and Rhythm: Normal rate and regular rhythm. Pulmonary: Effort: Pulmonary effort is normal. Breath sounds: Normal breath sounds. Abdominal: General: Bowel sounds are normal. There is no distension. Palpations: Abdomen is soft. Tenderness: There is no abdominal tenderness. There is no guarding or rebound. Musculoskeletal: General: No swelling. Normal range of motion. Right lower leg: No edema. Left lower leg: No edema. Neurological: Mental Status: She is alert and oriented to person, place, and time. Skin: General: Skin is warm and dry. Psychiatric: Mood and Affect: Mood normal. Behavior: Behavior normal. Vitals and nursing note reviewed. Exam conducted with a wood cutter present. Vitals: Estimated body mass index is 37.2 kg/m as calculated from the following: Height as of 24: 5' 3 . Weight as of this encounter: 210 lb. BP: 122/80 Patient's last menstrual period was 12/19/2023. ASSESSMENT & PLAN ICD-10-CM 1. Well woman exam with routine gynecological exam Z01.419 Pap Smear HPV DNA probe, amplified 2. Screening, , for anatomic survey Z36.89 US OB 14+ weeks anatomy scan Alpha fetoprotein, maternal US OB 14+ weeks anatomy scan Alpha fetoprotein, maternal 3. Vaginal discharge N89.8 SURESWAB(R) ADVANCED VAGINITIS PLUS, TMA CHLAMYDIA TRACHOMATIS (GENITO/STI) Neisseria gonorrhea DNA probe, direct 4. STD exposure Z20.2 SURESWAB(R) ADVANCED VAGINITIS PLUS, TMA CHLAMYDIA TRACHOMATIS (GENITO/STI) Neisseria gonorrhea DNA probe, direct 5. Second trimester Z34.92 POCT urinalysis dipstick manually resulted 6. 16 weeks gestation of Z3A.16 Return OB/Annual Exam: Patient presents today for a annual exam/routine obstetrics appointment. Patient is currently 17w3d . Patient states she is doing well but has complaints of nausea in the morning. Pap and cultures was obtained without difficulty and patient was given orders for msAFP to be obtained. Pt being referred to [facility] for level II ultrasound for IVF Orders Placed This Encounter Procedures HPV DNA probe, amplified US OB 14+ weeks anatomy scan CHLAMYDIA TRACHOMATIS (GENITO/STI) Neisseria gonorrhea DNA probe, direct Alpha fetoprotein, maternal POCT urinalysis dipstick manually resulted Follow Up: Patient is to schedule annual exam for next year and return to office in 4 weeks for OB appointment. Documented by Jocelyn Posadas LPN on behalf of: Andrea Prieto DO documented in this encounter [facility] 03-11-2024 History of Presen t illness Narrative [...] episode of recurrent major depressive disorder (HCC) ([facility]) 12/28/2023 Restless leg 12/28/2023 Resolved Ambulatory Problems Diagnosis Date Noted No Resolved Ambulatory Problems Past Medical History: Diagnosis Date Asthma ([facility]) BMI 28.0-28.9,adult Depression screening GERD (gastroesophageal reflux [...] or undercooked meat, and stay away from [facility]. Patient has also been advised to not [...] Jacqui Ferguson LPN documented in this encounter [facility] 02-28-2024 [facility] Discharg e instructions Patient Education 02/28/2024 [...] Centers for Disease Control and Prevention: cdc.gov [place] [employer]: heart.org National Heart, Lung, and [employer] [place]: nhlbi.nih.gov This information is not intended to replace advice given to you by your health care provider. Make sure you discuss any questions you have with your health care provider. Document Revised: 12/04/2022 Document Reviewed: 11/27/2022 [employer] Patient Education 2023 [employer]. 02/28/2024 09:57:52 Otitis Media, Adult, Sddw-vl-[id number] Otitis Media, Adult Otitis media is a [...] pain. Follow these instructions at home: Take joww-tso-mxicnru and prescription medicines only as told by [...] provider. Document Revised: 06/24/2021 Document Reviewed: 06/24/2021 [employer] Patient Education 2023 [employer] Follow Up Care 02/28/2024 08:48:51 With:Karen Bolanos MD Address: [place] [place] [address]- When: Unknown [facility] 02-28-2024 Note Patient Education ENT [...] Follow these instructions at home: ??? Take xizw-oin-fcrimvn and prescription medicines only as told by [...] provider. Document Revised: 06/24/2021 Document Reviewed: 06/24/2021 [employer] Patient Education ? 2023 [employer] Nutrition BMI for Adults Body mass index [...] (Inserted Image. Un (more content not included)... [facility] 02-09-2024 Note [facility] ID: [id number] Author: VIDHYA PITT APRN.HAND BLOCKER Service: ? Author Type: Nurse Practitioner Type: [...] Plan Move on to OB Vidhya Pitt APRN.HAND BLOCKER February 09, 2024 12:27 PM [facility] 02-09-2024 History of Presen t illness [...] Parth Clark MD documented in this encounter [facility] 02-09-2024 Note HNO ID: [id number] Author: PARTH CLARK MD Service: ? Author Type: Physician Type: Progress Notes Filed: 02/09/2024 11:28 Note Text: Scan Visit Patient here for scan. See imaging documentation. Parth Clark MD [facility] 01-20-2024 Note HNO ID: [id number] Author: ANDRESSA ABRAHAM APRN.CNP Service: ? Author [...] visit. Either the patient or their legal solar manufacturer's representative has been informed of the risks [...] with OB: 02/14 or 02/21 Andressa Abraham APRN.HAND BLOCKER January 20, 2024 9:03 AM Please schedule the patient for the following- Location: [place] Provider: nurse Visit type: scan Reason for visit/appointment notes: scan Date: 02/08 Time (requested): 1030 If slot is full, please schedule the closest open slot. Call to patient needed: no I spent a total of 30 minutes on the date of the service which included preparing to see the patient, [id number] patient care, completing clinical documentation, obtaining and/or [...] grammatical and typographical errors missed in proofreading. [facility] 01-20-2024 History of Presen t illness [...] visit. Either the patient or their legal solar manufacturer's representative has been informed of the risks [...] with OB: 02/14 or 02/21 Andressa Abraham APRN.LEXUS January 20, 2024 9:03 AM Please schedule [...] which included preparing to see the patient, avng-sw-uriz patient care, completing clinical documentation, obtaining and/or [...] missed in proofreading. documented in this encounter [facility] 01-18-2024 Telephone encounter Note Patient calls [...] Yoo PA-C January 18, 2024 4:02 PM [facility] 01-18-2024 Miscellaneous Notes Patient calls with [...] regarding next steps. documented in this encounter [facility] 01-18-2024 Telephone encounter Note Please call patient back regarding next steps. [facility] Work Phone: 01-02-2024 Note HNO ID: [id number] Author: FLAVIA ELIZONDO, ? Service: ? Author Type: Office Manager Receptionist Type: Progress Notes Filed: 01/02/2024 11:47 Note Text: Thaw for IUI Flavia Elizondo [facility] 01-02-2024 History of Presen t illness Narrative Thaw for IUI Flavia Elizondo documented in this encounter [facility] 01-02-2024 Note HNO ID: [id number] Author: FLAVIA ELIZONDO, ? Service: ? Author Type: Office Manager Receptionist Type: Progress Notes Filed: 01/02/2024 11:46 Note Text: IUI Xytex #: [id number] Washed frozen specimen Post: 122 m/ml, 63% Insem#: 34.7 million [facility] 01-02-2024 History of Presen t illness Narrative IUI Xytex #: [id number] Washed frozen specimen Post: 122 m/ml, 63% Insem#: 34.7 million IUI specimen released to provider Flavia [place] January 02, 2024 11:23 AM documented in this encounter [facility] 01-02-2024 Note HNO ID: [id number] Author: ANYI GANT MD Service: ? Author [...] Cycle Day: 15 Last menstrual period: 12/19/2023 [place] Protocol: UNIVERSAL PROTOCOL / SAFETY CHECKLIST Procedure [...] discussed with the Patient or Patient's Authorized Coil Tier. As applicable, any other physician, advance practice provider, medical student, or other health professional student that will be observing or involved in the sensitive examination for educational or training purposes was discussed with the Patient or Authorized Coil Tier. The Patient or Authorized Coil Tier has agreed to proceed with the sensitive examination. (Sensitive examination includes inspection and/or palpation of the breasts, pelvis, prostate and anorectal regions) Patient declined wood cutter. IUI IUI Date: 01/02/24 Partner's Name: Wanda [...] Anyi Gant M.D. Reproductive Endocrinology and Infertility [facility] 01-02-2024 Procedure note WHI SARMAD IUI PROCEDURE NOTE Date: 01/02/2024 Primary Proceduralist: Uma Aguilera MD Consents and Labels Consent Signed: Informed Consent obtained and on the chart Labels Verified With Patient: Yes Indications: Nelli Carpenter, is a 33 year old female here today for intrauterine insemination. IUI # 2. Cycle Day: 15 Last menstrual period: 12/19/2023 [place] Protocol: UNIVERSAL PROTOCOL / SAFETY CHECKLIST Procedure [...] discussed with the Patient or Patient's Authorized Coil Tier. As applicable, any other physician, advance practice provider, medical student, or other health professional student that will be observing or involved in the sensitive examination for educational or training purposes was discussed with the Patient or Authorized Coil Tier. The Patient or Authorized Coil Tier has agreed to proceed with the sensitive examination. (Sensitive examination includes inspection and/or palpation of the breasts, pelvis, prostate and anorectal regions) Patient declined wood cutter. IUI IUI Date: 01/02/24 Partner's Name: Wanda [...] Anyi Gant M.D. Reproductive Endocrinology and Infertility [facility] Work Phone: 01-02-2024 Procedure note WHI SARMAD IUI PROCEDURE NOTE Date: 01/02/2024 Primary Proceduralist: Uma Aguilera MD Consents and Labels Consent Signed: Informed Consent obtained and on the chart Labels Verified With Patient: Yes Indications: Nelli Carpenter, is a 33 year old female here today for intrauterine insemination. IUI # 2. Cycle Day: 15 Last menstrual period: 12/19/2023 [place] Protocol: UNIVERSAL PROTOCOL / SAFETY CHECKLIST Procedure [...] discussed with the Patient or Patient's Authorized Coil Tier. As applicable, any other physician, advance practice provider, medical student, or other health professional student that will be observing or involved in the sensitive examination for educational or training purposes was discussed with the Patient or Authorized Coil Tier. The Patient or Authorized Coil Tier has agreed to proceed with the sensitive examination. (Sensitive examination includes inspection and/or palpation of the breasts, pelvis, prostate and anorectal regions) Patient declined wood cutter. IUI IUI Date: 01/02/24 Partner's Name: Wanda [...] Endocrinology and Infertility documented in this encounter [facility] 01-02-2024 Note HNO ID: [id number] Author: FLAVIA ELIZONDO, ? Service: ? Author Type: Office Manager Receptionist Type: Progress Notes Filed: 01/02/2024 11:46 Note Text: IUI specimen released to provider Flavia Elizondo January 02, 2024 11:23 AM [facility] 12-28-2023 History of Presen t illness [...] w/ [facility] BMI 37.0-37.9, adult Morbid obesity ([facility]/HCC) - continue to monitor weight documented in this encounter [facility] 12-05-2023 Note HNO ID: [id number] Author: STEPHANIE LARA, ? Service: ? Author Type: ? Type: Progress Notes Filed: 12/06/2023 08:45 Note Text: IUI [facility] #[id number] Frozen washed specimen Post: 145 Million/mL, 68% Insem #: 49 Million [facility] 12-05-2023 History of Presen t illness Narrative IUI Xytex #[id number] Frozen washed specimen Post: 145 Million/mL, 68% Insem #: 49 Million IUI specimen released to provider Stephanie Lara December 05, 2023 10:19 AM documented in this encounter [facility] 12-05-2023 Note HNO ID: [id number] Author: MYRIAM DOMINGUEZ MD Service: ? Author [...] Cycle Day: 15 Last menstrual period: 11/21/2023 [place] Protocol: UNIVERSAL PROTOCOL / SAFETY CHECKLIST Procedure [...] EMERGENT procedures): No specimen collected. Patient declined wood cutter. Uma Aguilera MD IUI IUI Date: 12/05/23 [...] after wash): 49 million Donor ID #: [id number] Cycle reviewed, all questions answered. Pt instructed to take a test in 17 days if no menses and call with results. SIGNATURE: Uma Aguilera MD PATIENT NAME: Nelli Carpenter DATE: December 05, 2023 TIME: 10:31 AM I was present and immediately available for the entire procedure. Patient underwent an intrauterine insemination. Myriam Dominguez MD, TRUDY [facility] 12-05-2023 Procedure note WHI SARMAD IUI PROCEDURE NOTE Date: 12/05/2023 Primary Proceduralist: Uma Aguilera MD Consents and Labels Consent Signed: Informed Consent obtained and on the chart Labels Verified With Patient: Yes Indications: Nelli Carpenter, is a 33 year old female here today for intrauterine insemination. IUI # 1. Cycle Day: 15 Last menstrual period: 11/21/2023 [place] Protocol: UNIVERSAL PROTOCOL / SAFETY CHECKLIST Procedure [...] EMERGENT procedures): No specimen collected. Patient declined wood cutter. Uma Aguilera MD IUI IUI Date: 12/05/23 [...] after wash): 49 million Donor ID #: [id number] Cycle reviewed, all questions answered. Pt instructed to take a test in 17 days if no menses and call with results. SIGNATURE: Uma Aguilera MD PATIENT NAME: Nelli Carpenter DATE: December 05, 2023 TIME: 10:31 AM I was present and immediately available for the entire procedure. Patient underwent an intrauterine insemination. Myriam Dominguez MD, TRUDY [facility] Work Phone: 12-05-2023 Procedure note WHI SARMAD IUI PROCEDURE NOTE Date: 12/05/2023 Primary Proceduralist: Uma Aguilera MD Consents and Labels Consent Signed: Informed Consent obtained and on the chart Labels Verified With Patient: Yes Indications: Nelli Carpenter, is a 33 year old female here today for intrauterine insemination. IUI # 1. Cycle Day: 15 Last menstrual period: 11/21/2023 [place] Protocol: UNIVERSAL PROTOCOL / SAFETY CHECKLIST Procedure [...] EMERGENT procedures): No specimen collected. Patient declined wood cutter. Uma Aguilera MD IUI IUI Date: 12/05/23 [...] after wash): 49 million Donor ID #: [id number] Cycle reviewed, all questions answered. Pt instructed to take a test in 17 days if no menses and call with results. SIGNATURE: Uma Aguilera MD PATIENT NAME: Nelli Carpenter DATE: December 05, 2023 TIME: 10:31 AM I was present and immediately available for the entire procedure. Patient underwent an intrauterine insemination. Myriam Dominguez MD, TRUDY documented in this encounter [facility] 12-05-2023 History of Presen t illness Narrative Thaw for IUI Stephanie Lara documented in this encounter [facility] 12-05-2023 Note HNO ID: [id number] Author: STEPHANIE LARA, ? Service: ? Author Type: ? Type: Progress Notes Filed: 12/05/2023 10:23 Note Text: Thaw for IUI Stephanie Marco [facility] 12-05-2023 Note HNO ID: [id number] Author: STEPHANIE LARA, ? Service: ? Author Type: ? 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 Tubal Patency Testing: defer for now Sperm Source:Donor Frozen Treatment Protocol: Natural Cycle Monitoring Plan: OPKs Ovidrel Trigger: No Supplemental Progesterone: None Comments: None Andressa Abraham APRN.CNP 11/23/2023 documented in this encounter [facility] 11-23-2023 Instructions Andressa Abraham APRN.CNP - [...] day of your period and let the welcome desk agent know you will be doing donor sperm [...] of your menstrual cycle to let the welcome desk agent know you will be testing and doing [...] please call the office to discuss. Location [address], [address] [facility], [place] [address] Available every day, including weekends and holidays (except Lauren and New Years.) Weekday IUI scheduling The day you get your LH surge, please call [phone] between 8:00am - 12:00pm to schedule your insemination for the next day. If you call after 12pm, we may not be able to schedule your appointment. IUI s are done by appointment only. You will make 2 appointments - an arrival time and an IUI time. Donor sperm IUI is available at the following location: [place]: [address] [place] [address], [address] [place] [address] Available every day, including weekends and holidays (except Lauren and New Years.) Available for IUI using fresh and frozen samples. Check in location for sperm wash and IUI: [address]. The sperm wash takes 60-90 minutes. Weekend/Holiday [...] want to do another IUI: Call the welcome desk agent to make sure you are financially cleared. Ask to speak to an NELLY to confirm your treatment plan. Important phone number: [phone] documented in this encounter [facility] 11-23-2023 Note HNO ID: [id number] Author: ANDRESSA ABRAHAM APRN.CNP Service: ? Author [...] visit. 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 Reviewed IUI scheduling and IUI procedure. Plan: natural cycle IUI-D timed with OPK. Sign IUI consent at earliest convenience. Andressa Abraham APRN.HAND BLOCKER November 23, 2023 9:09 AM I spent a total of 25 minutes on the date of the service which included preparing to see the patient, vgik-rw-uujj patient care, completing clinical documentation, obtaining and/or [...] grammatical and typographical errors missed in proofreading. [facility] 11-23-2023 History of Presen t illness [...] visit. 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 Reviewed IUI scheduling and IUI procedure. Plan: natural cycle IUI-D timed with OPK. Sign IUI consent at earliest convenience. Andressa Abraham APRN.LEXUS November 23, 2023 9:09 AM I spent a total of 25 minutes on the date of the service which included preparing to see the patient, htin-dz-fycb patient care, completing clinical documentation, obtaining and/or [...] missed in proofreading. documented in this encounter [facility] 10-12-2023 Telephone encounter Note Called the patient she verified her name and date of patient is doing practice cycle Patient had peak on her opk 10-10-23 last period 09-27-23 Needs progesterone order I advised she goes in 6-8 days from positive opk not on fertility meds Laura Roque RN October 12, 2023 12:54 PM [facility] 10-12-2023 Miscellaneous Notes Called the patient she verified her name and date of patient is doing practice cycle Patient had peak on her opk 24 last period 09-27-23 Needs progesterone order I advised she goes in 6-8 days from positive opk not on fertility meds Laura Roque RN October 12, 2023 12:54 PM Partner Wanda calling re +ov need to schedule progesterone test for Nelli when to have it done. Please follow up with Wanda. documented in this encounter [facility] 10-12-2023 Telephone encounter Note Partner Wanda calling re +ov need to schedule progesterone test for Nelli when to have it done. Please follow up with Wanda. [facility] Work Phone: 09-11-2023 Instructions Andressa Abraham [...] sample yourself and arranging for shipment to [facility] Andrology Lab. Sperm Bank [employer] [facility] [place] [facility] ([place]) [facility] [employer] [employer] ([facility] [place]) [place] [facility] Let us know the sperm [...] (with a backup), please send me a OnMyBlock message titled Sperm Donor Choice. Include the [...] the office. Mailing address: Attention: Flavia Elizondo [address] [place] [address], [address] [place] [address] Storage at the [facility] is available. Fees are yearly and only start once you are not actively trying. Please ask the financial team ([phone]) for current cost information. Insurance Authorization/Financial Clearance [...] day of your period and let the welcome desk agent know you will be doing donor sperm insemination. The financial office will contact you to collect payment early in your cycle. You will not be able to schedule an IUI unless you have made payment. We want to help make your experience as smooth as possible. Please do not hesitate to call if you should have any questions. Contact documented in this encounter [facility] 09-11-2023 Note HNO ID: [id number] Author: ANDRESSA ABRAHAM APRN.LEXUS Service: ? Author [...] a couple of days ago. Spouse - Wanad - does not wish to take a [...] favorite donors - send to me via OnMyBlock to confirm Confirmed best vial type to order: IUI/prewashed Will need to follow up to firm up treatment plan and review IUI scheduling instructions. Andressa Abraham APRN.HAND BLOCKER September 11, 2023 8:08 AM I spent a total of 50 minutes on the date of the service which included preparing to see the patient, yvkg-ki-fvyo patient care, completing clinical documentation, obtaining and/or [...] may be gramma (more content not included)... [facility] 09-11-2023 History of Presen t illness [...] favorite donors - send to me via OnMyBlock to confirm Confirmed best vial type to order: IUI/prewashed Will need to follow up to firm up treatment plan and review IUI scheduling instructions. Andressa Abraham APRN.CNP September 11, 2023 8:08 AM I spent a total of 50 minutes on the date of the service which included preparing to see the patient, vqww-rb-opvf patient care, completing clinical documentation, obtaining and/or [...] missed in proofreading. documented in this encounter [facility] 07-28-2023 Telephone encounter Note Nelli's labs are in process partner Wanda [...] follow up once checklist is complete. sent [employer] message. Andressa Abraham APRN.CNP July 28, 2023 12:27 PM [facility] 07-28-2023 Miscellaneous Notes Nelli's labs are in process partner Wanda [...] follow up once checklist is complete. sent [employer] message. Andressa Abraham APRN.CNP July 28, 2023 12:27 PM Please follow up with patient completed bloodwork today, next steps after labwork. documented in this encounter [facility] 07-28-2023 Telephone encounter Note Please follow up with patient completed bloodwork today, next steps after labwork. [facility] Work Phone: 06-15-2023 History of Presen t illness Narrative Images from the original note were not included. REPRODUCTIVE ENDOCRINOLOGY AND INFERTILITY DONOR SPERM TEACH SERVICE DATE: 06/15/2023 SERVICE TIME: 4:06 PM NAME: Nelli Carpenter VIRTUAL VISIT PROGRESS NOTE This is a virtual visit. It required patient-provider interaction for the medical decision making as documented below. Patient name and birthday verified: Yes Location of patient: [place] Persons Present: patient and patient's spouse/significant other I have communicated my name and active licensure. The patient's identity and physical location were verified at the time of this visit. Either the patient or their legal solar manufacturer's representative has been informed of the risks [...] in 2014 followed by a miscarriage in 2015 and a section [facility] The was because of [...] test results and next steps. Andressa Abraham APRN.HAND BLOCKER June 15, 2023 4:06 PM I spent a total of 40 minutes on the date of the service which included preparing to see the patient, ayvj-cb-oxok patient care, completing clinical documentation, obtaining and/or [...] missed in proofreading. documented in this encounter [facility] 06-08-2023 Instructions Rahul Zheng MD - 06/08/2023 10:26 AM EDT Images from the original note were not included. Obstetrics and Gynecology [facility] Intrauterine Insemination Scheduling Instructions Please [...] you get your LH surge, please call [phone] between 8:00am - 12:00pm to schedule your insemination for the next day. If you call after 12pm, we may not be able to schedule your appointment. IUI s are done by appointment only. You will make 2 appointments - one for sperm drop off/collection, and one for the insemination. If you are using a frozen sample, please tell the supervisor cigar making hand this. You will get an arrival time and an IUI time. IUI is available at the following locations: [place]: [address] [place] [address], [place] [address] Weekday availability is limited depending on staffing. Not available on weekends. Not available for those with frozen sperm. Check in location for sperm wash and IUI: 2nd floor, room 208. The sperm wash takes 60-90 minutes. [place]: [address] [facility], [place] [address] Weekday availability is limited depending on staffing. Not available on weekends. Not available for those with frozen sperm. Check in location for sperm wash: the 2nd floor Urology/Andrology. The sperm wash takes 60-90 minutes. They will tell you what time to bean picker machine operator the sample. Check in location for IUI: 3rd floor OB Specialties Desk. (You will have to bean picker machine operator the sample from 2nd floor Urology and bring it with you.) [place]: [id number] [place] [address], [address] [place] [address] Available every day, including weekends and holidays (except Lauren and New Years.) Available for IUI using fresh and frozen samples. Check in location for sperm wash and IUI: [address] [facility]. The sperm wash takes 60-90 [...] want to do another IUI: Call the welcome desk agent to make sure you are financially cleared. Ask to speak to an NELLY to confirm your treatment plan. Important phone number: [phone] documented in this encounter [facility] 06-08-2023 History of Presen t illness [...] visit. Either the patient or their legal solar manufacturer's representative has been informed of the risks [...] been prescribed Wegovy. She is a non-smoker. 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 documented in this encounter [facility] 03-16-2023 Hospital Discharg e instructions Patient Education 03/16/2023 16:12:49 Wrist Pain, Adult, Gzpt-rh-Bote Wrist Pain, Adult There are many things [...] to any changes in your symptoms. Take nohp-rlm-svbylbz and prescription medicines only as told by [...] provider. Document Revised: 02/02/2020 Document Reviewed: 02/02/2020 [employer] Patient Education 2022 [employer]. [facility] Care Evaluation + Plan note No data available for this section [facility] Evaluation note Diagnosis Procreative management counseling- Primary Other procreative management counseling and advice BMI 34.0-34.9,adult Body Mass Index 34.0-34.9, adult documented in this encounter [facility] note* Diagnosis Encounter for fertility planning- Primary Other specified procreative management Encounter for other genetic testing of female for procreative management documented in this encounter [facility] note* Diagnosis Treatment plan provided- Primary documented in this encounter [facility] note* Diagnosis Encounter for fertility planning- Primary Other specified procreative management documented in this encounter [facility] note* Diagnosis Procreation management investigation and testing- Primary Other investigation and testing for procreative management documented in this encounter [facility] note* Diagnosis Female infertility- Primary Female infertility of unspecified origin documented in this encounter [facility] note* Diagnosis Reproductive mgmt, infertility due to male factor- Primary Female infertility of other specified origin documented in this encounter [facility] note* Diagnosis Procreative management- Primary Unspecified procreative management documented in this encounter [facility] note* Diagnosis Female infertility- Primary Female infertility of unspecified origin documented in this encounter [facility] note* Diagnosis Encounter for artificial insemination- Primary Artificial insemination documented in this encounter [facility] note* Diagnosis Encounter for test, result positive- Primary examination or test, positive result documented in this encounter [facility] note* Diagnosis resulting from assisted reproductive technology in first trimester- Primary documented in this encounter [facility] note* Diagnosis resulting from assisted reproductive technology in first trimester documented in this encounter [facility] note* Diagnosis Treatment plan provided- Primary documented in this encounter [facility] note* Diagnosis Missed menses , unspecified gestational age Encounter for supervision of normal first in first trimester [facility] Diagnosis Infertility, female- Primary BMI 37.0-37.9, adult Morbid obesity (CMS/HCC) Morbid obesity [facility]* Diagnosis Well woman exam with routine gynecological exam Routine gynecological examination Screening, , for anatomic survey Encounter for anatomic survey Vaginal discharge Leukorrhea, not specified as infective STD exposure Second trimester state, incidental 16 weeks gestation of Mass of right breast, unspecified quadrant Neoplasm of unspecified behavior of breast Other acne documented in this encounter [facility] note* Diagnosis Encounter for anatomic survey- Primary [facility] [place]* Diagnosis Encounter for anatomic survey- Primary Obesity affecting in second trimester, unspecified obesity type Class 1 obesity without serious comorbidity with body mass index (BMI) of 34.0 to 34.9 in adult, unspecified obesity type 23 weeks gestation of state, incidental documented in this encounter [facility] [place] [facility] Diagnosis Second trimester state, incidental 26 weeks gestation of Diabetes mellitus screening Screening for diabetes mellitus size inconsistent with dates [facility] Diagnosis Third trimester state, incidental 29 weeks gestation of [facility]* Diagnosis Third trimester state, incidental 31 weeks gestation of [facility]* Diagnosis Third trimester state, incidental 33 weeks gestation of Gestational diabetes mellitus (GDM), antepartum, gestational diabetes method of control unspecified [facility] No data available for this section [facility] No data available for this section [facility] Reason for referral (narrative)* Diagnostic Procedure Only (Routine) - Open Specialty Diagnoses / Procedures Referred By Jose L alcocer Referred To Contact [facility] Diagnoses resulting from assisted reproductive technology in first trimester Procedures OBSTETRIC ULTRASOUND WHI US PREG UTERUS AFTER 1ST TRIMEST GESTATION Andressa Abraham APRN.CNP [id number] [facility] [address] [place] [address] [place] [address] Referral ID Status Reason Start Date Expiration Date V isits Requested Visits Authorized [id number] Open Auto-Generate d Referral 01/20/2024 01/19/2025 1 1 [facility] for visit Narrative* Diagnostic Procedure Only (Routine) - Closed Specialty Diagnoses / Procedures Referred By Contac t Referred To Contact [facility] Diagnoses resulting from assisted reproductive technology in first trimester Procedures OBSTETRIC ULTRASOUND WHI US PREG UTERUS AFTER 1ST TRIMEST GESTATION Andressa Abraham LOSS PREVENTION SUPERVISOR.HAND BLOCKER [id number] [facility] [address] [place] [address] [address] Referral ID Status Reason Start Date Expiration Date V isits Requested Visits Authorized [id number] Closed Auto-Generate d Referral 01/27/2024 03/29/2024 1 1 [facility] for visit Narrative* Diagnostic Procedure Only (Routine) - Closed Specialty Diagnoses / Procedures Referred By Contac t Referred To Contact [facility] Diagnoses Encounter for anatomic survey Procedures OBSTETRIC ULTRASOUND WHI US PREG UTERUS AFTER 1ST TRIMEST GESTATION Tristan Gloria, WINDY.HAND BLOCKER [address] [facility], [address] [place] [address] Phone: tel: fax: [address] [address] Referral ID Status Reason Start Date Expiration Date V isits Requested Visits Authorized [id number] Closed Auto-Generate d Referral 05/30/2024 03/29/2025 1 1 [facility] Summary Purpose Family History No Family [...] Obstetrics and Gynecology Diagnoses Infertility, female Procedures MD OFFICE/OUTPATIENT NEW HIGH [facility] 60 MINUTES Karen Bolanos MD [address] [place] [address] aPtsy Blanco, DO [address] [facility] [address] [place] [address] Referral ID Status Reason Start Date Expiration Date Visits Requested Visits Authorized [id number] Pending Review Specialty Services Required 12/28/2023 06/25/2024 1 1 Additional Source Comments INFORMATION SOURCE (unrecogn ized section and content) DATE CREATED AUTHOR 09/21/2017 [facility] DATE CREATED AUTHOR AUTHOR'S ORGANIZ ATION 03/12/2021 [facility] DATE CREATED AUTHOR AUTHOR'S ORGANIZ ATION 03/16/2021 [facility] DATE CREATED AUTHOR AUTHOR'S ORGANIZ ATION 03/26/2022 [facility] DATE CREATED AUTHOR AUTHOR'S ORGANIZ ATION 02/29/2024 [facility] DATE CREATED AUTHOR AUTHOR'S ORGANIZ ATION 08/06/2024 [facility] DATE CREATED AUTHOR AUTHOR'S ORGANIZ ATION 08/09/2024 [facility] dical Specialists EPIC <item> Privacy Markings (unrecogniz ed section and content) Section Author: Smita Tello PROHIBITION ON REDISCLOSURE OF CONFIDENTIAL INFORMATION This notice accompanies a disclosure of information concerning a client made to you with the consent of such client. Patient Care team informatio n (unrecognized section and content) Search Engineer Relationship Specialty Start Date End Date Karen Bolanos MD [address] [place] [address] PCP - General Family Medicine 11/10/22 Karen Bolanos MD [address] [place] [address] PCP - [place] [employer] 12/28/22 Search Engineer Relationship Specialty Start Date End Date Karen Bolanos MD [address] [place] [address] PCP - General Family Medicine 11/10/22 Karen Bolanos MD [address] [place] [address] PCP - [place] [employer] 12/28/22 Search Engineer Relationship Specialty Start Date End Date Karen Bolanos MD [address] [place] [address] PCP - General Family Medicine 11/10/22 Search Engineer Relationship Specialty Start Date End Date Karen Bolanos MD [address] [place] [address] PCP - General Family Medicine 11/10/22 Search Engineer Relationship Specialty Start Date End Date Karen Bolanos MD [address] [place] [address] PCP - General Family Medicine 11/10/22 Karen Bolanos MD [address] [place] [address] PCP - [place] [employer] 12/28/22 Search Engineer Relationship Specialty Start Date End Date Karen Bolanos MD [address] [place] [address] PCP - General Family Medicine 11/10/22 Search Engineer Relationship Specialty Start Date End Date Karen Bolanos MD [address] [place] [address] PCP - General Family Medicine 11/10/22 Search Engineer Relationship Specialty Start Date End Date Karen Bolanos MD [address] [place] [address] PCP - General Family Medicine 11/10/22 Search Engineer Relationship Specialty Start Date End Date Karen Bolanos MD [address] [place] [address] PCP - General Family Medicine 11/10/22 Search Engineer Relationship Specialty Start Date End Date Karen Bolanos MD [address] [place] [address] PCP - General [facility] Medicine 11/10/22 Search Engineer Relationship Specialty Start Date End Date Karen Bolanos MD [address] [place] [address] PCP - General Family [facility] 11/10/22 Search Engineer Relationship Specialty Start Date End Date Karen Bolanos MD [address] [place] [address] PCP - General Family [facility] 11/10/22 Source Comments (unrecognize d section and content) In the event this informatio n is protected by the Federal Confidentiality of Alcohol and Drug Abuse Patient Records regulations: The Federal rules restrict any use of the information to criminally investigate or prosecute any alcohol or drug abuse patient.[facility] the event this information is protected by the Federal Confidentiality of Alcohol and Drug Abuse Patient Records regulations: The Federal rules restrict any use of the information to criminally investigate or prosecute any alcohol or drug abuse patient.[facility] the event this information is protected by the Federal Confidentiality of Alcohol and Drug Abuse Patient Records regulations: The Federal rules restrict any use of the information to criminally investigate or prosecute any alcohol or drug abuse patient.[facility] the event this information is protected by the Federal Confidentiality of Alcohol and Drug Abuse Patient Records regulations: The Federal rules restrict any use of the information to criminally investigate or prosecute any alcohol or drug abuse patient.[facility] the event this information is protected by the Federal Confidentiality of Alcohol and Drug Abuse Patient Records regulations: The Federal rules restrict any use of the information to criminally investigate or prosecute any alcohol or drug abuse patient.[facility] the event this information is protected by the Federal Confidentiality of Alcohol and Drug Abuse Patient Records regulations: The Federal rules restrict any use of the information to criminally investigate or prosecute any alcohol or drug abuse patient.[facility] the event this information is protected by the Federal Confidentiality of Alcohol and Drug Abuse Patient Records regulations: The Federal rules restrict any use of the information to criminally investigate or prosecute any alcohol or drug abuse patient.[facility] the event this information is protected by the Federal Confidentiality of Alcohol and Drug Abuse Patient Records regulations: The Federal rules restrict any use of the information to criminally investigate or prosecute any alcohol or drug abuse patient.[facility] the event this information is protected by the Federal Confidentiality of Alcohol and Drug Abuse Patient Records regulations: The Federal rules restrict any use of the information to criminally investigate or prosecute any alcohol or drug abuse patient.[facility] the event this information is protected by the Federal Confidentiality of Alcohol and Drug Abuse Patient Records regulations: The Federal rules restrict any use of the information to criminally investigate or prosecute any alcohol or drug abuse patient.[facility] the event this information is protected by the Federal Confidentiality of Alcohol and Drug Abuse Patient Records regulations: The Federal rules restrict any use of the information to criminally investigate or prosecute any alcohol or drug abuse patient.[facility] the event this information is protected by the Federal Confidentiality of Alcohol and Drug Abuse Patient Records regulations: The Federal rules restrict any use of the information to criminally investigate or prosecute any alcohol or drug abuse patient.[facility] the event this information is protected by the Federal Confidentiality of Alcohol and Drug Abuse Patient Records regulations: The Federal rules restrict any use of the information to criminally investigate or prosecute any alcohol or drug abuse patient.[facility] the event this information is protected by the Federal Confidentiality of Alcohol and Drug Abuse Patient Records regulations: The Federal rules restrict any use of the information to criminally investigate or prosecute any alcohol or drug abuse patient.[facility] the event this information is protected by the Federal Confidentiality of Alcohol and Drug Abuse Patient Records regulations: The Federal rules restrict any use of the information to criminally investigate or prosecute any alcohol or drug abuse patient.[facility] the event this information is protected by the Federal Confidentiality of Alcohol and Drug Abuse Patient Records regulations: The Federal rules restrict any use of the information to criminally investigate or prosecute any alcohol or drug abuse patient.[facility] the event this information is protected by the Federal Confidentiality of Alcohol and Drug Abuse Patient Records regulations: The Federal rules restrict any use of the information to criminally investigate or prosecute any alcohol or drug abuse patient.[facility] the event this information is protected by the Federal Confidentiality of Alcohol and Drug Abuse Patient Records regulations: The Federal rules restrict any use of the information to criminally investigate or prosecute any alcohol or drug abuse patient.[facility] the event this information is protected by the Federal Confidentiality of Alcohol and Drug Abuse Patient Records regulations: The Federal rules restrict any use of the information to criminally investigate or prosecute any alcohol or drug abuse patient.[facility] the event this information is protected by the Federal Confidentiality of Alcohol and Drug Abuse Patient Records regulations: The Federal rules restrict any use of the information to criminally investigate or prosecute any alcohol or drug abuse patient.[facility] Reason for Visit (unrecogniz ed section and content) Reason Comments Consult Reason Comments donor sperm teach Reason Comments Lila bloodwork completed today Reason Comments +ovulation test Sat& d14 & 15 partne r calling Reason Comments Treatment Planning Specialty Diagnoses / Procedures Referred By [facility] t Referred To Contact [facility] Diagnoses Encounter for procreative management, unspecified Encounter for other procreative management Procedures THAWING CRYOPRESERVED SPERM/SEMEN EACH ALIQUOT ARTIFIC INSEMINATION INTRAUTERIN Isai Abrahamalta Antunez, LOSS PREVENTION SUPERVISOR.HAND BLOCKER [id number] [place] [address] [facility] [address] [place] [address] Referral ID Status Reason Start Date Expiration Date V isits Requested Visits Authorized [id number] Closed Financial Clearance Required - Self Pay Patient Cleared - True Self-Pay required payment collected Do Not Bill Insurance - SP patient 12/04/2023 03/03/2024 2 2 Specialty Diagnoses / Procedures Referred By Micahscooter alcocer Referred To Contact [facility] Diagnoses Encounter for other procreative management Encounter for procreative management, unspecified Procedures ARTIFIC INSEMINATION INTRAUTERIN THAWING CRYOPRESERVED SPERM/SEMEN EACH ALIQUOT Jarad Andressa Antunez, LOSS PREVENTION SUPERVISOR.HAND BLOCKER [address] [place], [place] [id number] [facility] [address] [place] [address] Referral ID Status Reason Start Date Expiration Date V isits Requested Visits Authorized [id number] Closed Patient Cleared - True Self-Pay required payment collected 12/30/2023 03/29/2024 2 2 Reason Comments +hpt 01/15 after an iui Reason Comments Reason Comments Amenorrhea Reason Comments Immunizations Patient declines at this time. Reason Comments Routine Visit FOR RECORDS PERTAINING TO PATIENTS WHO ARE [...] BE BASED ON THE PRIMARY CLINICAL RECORDS. [facility] [employer] [facility]. provides no warranty or guarantee of the accuracy or completeness of information in this document.
[2024-08-13 13:42] VITALS: BP 113/64; PULSE 97
== END 2024-08-13 14:07 | disposition home or self-care (01) ==
LOC: US 13:04 → FBC 13:11
PROVIDERS: PCP Student in an Organized Health Care Education/Training Program; Visit Provider Obstetrics & Gynecology
DX: O24.419 Gestational diabetes mellitus in pregnancy, unspecified control (principal); Z3A.36 36 weeks gestation of pregnancy
CPT/HCPCS: 76816; 76818

== ENCOUNTER 2024-08-16 05:12 | Observation (INO) | payer BC, SELFPAY ==
--- OUTSIDE RECORDS SUMMARY | 2024-08-16 05:16 | XMS_ITS | CCD ---
Author Organization [facility] Care Team Providers Care Tripper Name Role Phone BACEVICE, CHARLIE E Unavailable Unavailable KAFTON, KEITH Unavailable Unavailable BACEVICE, CHARLIE E Unavailable Unavailable BACEVICE, CHARLIE E Unavailable Unavailable KAFTON, KEITH Unavailable Unavailable GREENWOOD, KEITH Unavailable Unavailable GREENWOOD, KEITH Unavailable Unavailable KAFTON, KEITH Unavailable Unavailable GREENWOOD, KEITH Unavailable Unavailable KAFTON, KEITH Unavailable Unavailable GREENWOOD, KEITH Unavailable Unavailable Karen Bolanos Unavailable Filomena Zamora Unavailable Unavailable CONNER, DR WOOD Admitting Unavailable CONENR, DR WOOD Attending Unavailable REQUEST, NONE LISTED Primary Care Unavaila armand PRIETO, DR WOOD Consulting Unavailable Karen Bolanos Primary Care Physician [phone] Unavailable Primary Care Provider Unavailjulio cesar e [...] Referring Unavailable JARAD, ANDRESSA G Attending Unavailable MERTEREAZ ROMEDI Referring Unavailable JARAD, ANDRESSA G Referring [...] day(s), # 240 mL, Refills(s) 0, Pharmacy: [id number], 158, cm, 02/28/24 9:01:00 EST, Height/Length Dosing, [...] Glucose Monitoring Suppl (D-Care Glucometer) w/Device kit (8 sources) Start: 07-13-19 25 End: 04-15-20 26 Blood Glucose Monitoring Suppl ([place] Glucometer) w/Device kit Indications: Gestational diabetes mellitus [...] oral solution (1 source) alpha-Adrenergic Agonist, Uncompetitive Y-sqjeup-H-aspartate Receptor Antagonist, Sigma-1 Agonist Start: 03-11-20 End: 03-20-20 21 take 5 mL by mouth every four to six hours brompheniramine/pse udoephedrine/dextro methorphan 7qa-34cq-14jf/5 mL oral syrup ; 5 milliliter(s) orally [...] doctor. isopropyl alcohol 0.7 ml/ml medicated pad (8 sources) Start: 07-12-2024 Alcohol Swabs (Alcohol Prep [...] 0 Start Date: 05/29/12 Status: Ordered levonorgestrel 0.850597 mg/hr intrauterine system (14 sources) Progestin, Progestin-containi [...] above: COUGH, SORE THROAT, EAR PRESSURE Unclassified (19 sources) OB Reminders Onset: 03-28-2024 03-28-2024 Unclassified [...] Test Name Value Interpretation Reference Range Facility US OB BPP W NON-STRESS on 08-14-2024 [place] [address] Ultrasound Report Signed Patient: NELLI CARPENTER MR#: [id number] : 1990 Acct:[id number] Age/Sex: 34 / F ADM Date: 08/13/24 Loc: US Attending Dr: Andrea Prieto D.O. Ordering Physician: Andrea Prieto D.O. Date of Service: 08/13/24 Procedure(s): US OB BPP w non-stress Accession Number(s): [id number] cc: Andrea Prieto D.O.; NORBERTO BOLANOS [place] [id number] Patient Name: NELLI CARPENTER MRN: [id number] date: 1990 Sex: F Assigned Patient Location: US Current Patient Location: Accession/Order Number: [id number] Exam Date: 08/14/2024 08:54 Report Date: 08/14/2024 09:01 At the request of: ANDREA PRIETO DO Procedure: US OB BPP w non-stress US OB BPP w non-stress 08/13/2024 1:32 PM SIGNS AND SYMPTOMS: GESTATIONAL DIABETES MELLITUS O24.419 COMPARISON: None. TECHNIQUE: Limited pelvic ultrasound using transvesical sonography. FINDINGS: An intrauterine is identified. The visualized fetus has an estimated gestational age of 36 weeks and 2 days . A heart rate is identified at 143 bpm. A normal amount of amniotic fluid is present. The amniotic fluid index is 20.16 cm. There is no evidence for placenta previa or subchorionic hemorrhage. Pelvic survey reveals no gross abnormalities. US/US OB BPP w non-stress IMPRESSION: Single live IUP with an estimated gestational age of 36 weeks and 2 days with a normal heart rate. Impression dictated by: Gunnar Blake M.D. 08/14/2024 9:01 AM Dictation Location: [place] [address] Electronically authenticated by: [id number] Y Date: 08/14/2024 09:01 Dictated By: Gunnar Blake M.D. Signed By: 08/14/24903 DD/ 0 TD/TT: Food Quality Technician: [facility] Radiology, Radiologsharla summers MD - 08/14/2024 [place] [address] Ultrasound Report Signed Patient: NELLI CARPENTER MR#: [id number] : 1990 Acct:[id number] Age/Sex: 34 / F ADM Date: 08/13/24 Loc: US Attending Dr: Andrea Prieto D.O. Ordering Physician: Andrea Prieto D.O. Date of Service: 08/13/24 Procedure(s): US OB BPP w non-stress Accession Number(s): [id number] cc: Andrea Prieto D.O.; NORBERTO BOLANOS [place] [id number] Patient Name: NELLI CARPENTER MRN: [facility]:[id number] date: 1990 Sex: F Assigned Patient Location: US Current Patient Location: Accession/Order Number: [id number] Exam Date: 08/14/2024 08:54 Report Date: 08/14/2024 09:01 At the request of: ANDREA PRIETO DO Procedure: US OB BPP w non-stress US OB BPP w non-stress 08/13/2024 1:32 PM SIGNS AND SYMPTOMS: GESTATIONAL DIABETES MELLITUS O24.419 COMPARISON: None. TECHNIQUE: Limited pelvic ultrasound using transvesical sonography. FINDINGS: An intrauterine is identified. The visualized fetus has an estimated gestational age of 36 weeks and 2 days . A heart rate is identified at 143 bpm. A normal amount of amniotic fluid is present. The amniotic fluid index is 20.16 cm. There is no evidence for placenta previa or subchorionic hemorrhage. Pelvic survey reveals no gross abnormalities. US/US OB BPP w non-stress IMPRESSION: Single live IUP with an estimated gestational age of 36 weeks and 2 days with a normal heart rate. Impression dictated by: Gunnar Blake M.D. 08/14/2024 9:01 AM Dictation Location: [place] Electronically authenticated by: [id number] Y Date: 08/14/2024 09:01 Dictated By: Gunnar Blake M.D. Signed By: 08/14/24903 DD/ 0 TD/TT: Food Quality Technician: [facility] Radiology Study observation (narrative) [facility] US OB BPP W NON-STRESS Ordered By: Radiologist Radiology on 08-14-2024 [facility] Work Phone: US OB GROWTHon 08-14-2024 [place] [address] Ultrasound Report Signed Patient: NELLI CARPENTER MR#: [id number] : 1990 Acct:[id number] Age/Sex: 34 / F ADM Date: 08/13/24 Loc: US Attending Dr: Andrea Prieto D.O. Ordering Physician: Andrea Prieto D.O. Date of Service: 08/13/24 Procedure(s): US OB growth Accession Number(s): [id number] cc: Andrea Prieto D.O.; NORBERTO BOLANOS [place] [phone] Patient Name: NELLI CARPENTER MRN: [id number] date: 1990 Sex: F Assigned Patient Location: US Current Patient Location: Accession/Order Number: [id number] Exam Date: 08/14/2024 09:01 Report Date: 08/14/2024 09:06 At the request of: ANDREA PRIETO DO Procedure: US OB growth US OB growth 08/13/2024 1:32 PM SIGNS AND SYMPTOMS: GESTATIONAL DIABETES MELLITUS O24.419 COMPARISON: None. TECHNIQUE: Limited pelvic ultrasound using transvesical sonography. FINDINGS: An intrauterine is identified. The visualized fetus has an estimated gestational age of 36 weeks and 2 days . A heart rate is identified at 143 bpm. A normal amount of amniotic fluid is present. The amniotic fluid index is 20.16 cm. There is no evidence for placenta previa or subchorionic hemorrhage. Pelvic survey reveals no gross abnormalities. Biophysical profile: movements: 2/2 tone: 2/2 breathing movements: 2/2 Amniotic fluid volume: 2/2 US/US OB growth IMPRESSION: Single live IUP with an estimated gestational age of 36 weeks and 2 days with a normal heart rate. Biophysical profile score: 8/8 Impression dictated by: Gunnar Blake M.D. 08/14/2024 9:06 AM Dictation Location: [place] [address] Electronically authenticated by: [id number] Y Date: 08/14/2024 09:06 Dictated By: Gunnar Blake M.D. Signed By: 08/14/24908 DD/ 5 TD/TT: Food Quality Technician: [facility] Radiology, Radiologi MD melina - 08/14/2024 [place] [address] Ultrasound Report Signed Patient: NELLI CARPENTER MR#: [id number] : 1990 Acct:[id number] Age/Sex: 34 / F ADM Date: 08/13/24 Loc: US Attending Dr: Andrea Prieto D.O. Ordering Physician: Andrea Prieto D.O. Date of Service: 08/13/24 Procedure(s): US OB growth Accession Number(s): [id number] cc: Andrea Prieto D.O.; NORBERTO BOLANOS [place] [address] Patient Name: NELLI CARPENTER MRN: [id number] date: 1990 Sex: F Assigned Patient Location: Current Patient Location: Accession/Order Number: [id number] Exam Date: 08/14/2024 09:01 Report Date: 08/14/2024 09:06 At the request of: ANDREA PRIETO DO Procedure: US OB growth US OB growth 08/13/2024 1:32 PM SIGNS AND SYMPTOMS: GESTATIONAL DIABETES MELLITUS O24.419 COMPARISON: None. TECHNIQUE: Limited pelvic ultrasound using transvesical sonography. FINDINGS: An intrauterine is identified. The visualized fetus has an estimated gestational age of 36 weeks and 2 days . A heart rate is identified at 143 bpm. A normal amount of amniotic fluid is present. The amniotic fluid index is 20.16 cm. There is no evidence for placenta previa or subchorionic hemorrhage. Pelvic survey reveals no gross abnormalities. Biophysical profile: movements: 2/2 tone: 2/2 breathing movements: 2/2 Amniotic fluid volume: 2/2 US/US OB growth IMPRESSION: Single live IUP with an estimated gestational age of 36 weeks and 2 days with a normal heart rate. Biophysical profile score: 8/8 Impression dictated by: Gunnar Blake M.D. 08/14/2024 9:06 AM Dictation Location: [place] [address] Electronically authenticated by: [id number] Y Date: 08/14/2024 09:06 Dictated By: Gunnar Blake M.D. Signed By: 08/14/2409 DD/ 5 TD/TT: Food Quality Technician: [facility] Radiology Study observation (narrative) [facility] US OB GROWTHOrdered By: Susan ologblanca Radiology on 08-14-2024 [facility] Work Phone: Urinalysis macro (dipstick) panel (U)on 08-08-2024 Bilirubin, UA Negative Negative - 4(70) +++ mg/dL [facility] Blood, UA Negative Negative - 50 Mukesh/mcL [facility] Clarity, UA Clear [facility] Color, UA Yellow [facility] Glucose, UA Negative Negative - 2000(110) ++++ mg/dL [facility] Interpretation and review of laboratory results Normal [facility] Ketones, UA Negative Negative - 160(16) ++++ mg/dL [facility] Leukocytes, UA Negative Negative - 500+++ Shannon/mcL [facility] Nitrite, UA Negative Negative - Positive [facility] pH, UA 7 5 - 9 [facility] Protein, UA Negative Negative - 1999(20) ++++ mg/dL [facility] Spec Grav, UA 1.02 1 - 1.03 [facility] Urobilinogen, UA 0.2 0.2 - 12 mg/dL [facility] Urinalysis macro (dipstick) panel (U)on 07-25-2024 Bilirubin, UA Negative Negative - 4(70) +++ mg/dL [facility] Blood, UA Negative Negative - 50 Mukesh/mcL [facility] Clarity, UA Clear [facility] Color, UA Yellow [facility] Glucose, UA Negative Negative - 1999(110) ++++ mg/dL [facility] Interpretation and review of laboratory results Abnormal [facility] Ketones, UA Negative Negative - 160(16) ++++ mg/dL [facility] Leukocytes, UA Negative Negative - 500+++ Shannon/mcL [facility] Nitrite, UA Negative Negative - Positive [facility] pH, UA 6.5 5 - 9 [facility] Protein, UA Negative Negative - 1999(20) ++++ mg/dL [facility] Spec Grav, UA 1.015 1 - 1.03 [facility] Urobilinogen, UA 1.0 0.2 - 12 mg/dL [id number] ([id number]) 1990 F Date Time Provider Department 07/20/24 HISTORICAL [id number] During your visit today, we recorded the following information about you: Jessy Lilly, BALJINDER 07/20/2024 1:19 PM Signed Received outside referral from Dr. Prieto for GDM consult due to elevated 1 hour glucose 202. Called pt. To schedule appointment no answer, left message with call back phone number. BALJINDER Zaman Laura Lee 07/25/2024 11:57 AM Signed Nelli Carpenter called today. Caller's (home) [phone] (cell) Reason for call: Pt calling nurse back to be scheduled for GDM consult due to elevated 1 hour glucose 202. Jessy Zamora RN 08/04/2024 3:24 PM Addendum Outside referral received from Dr. Prieto for elevated 1 hour glucose 202. Pt. Has all testing supplies and has been checking BS periodically. Advised pt. To start checking 4 times daily and upload to [employer]. Will send patient care coordinator. Other med hx: asthma, placenta previa with previous OB History Gravida4 Para2 Term2 Preterm0 AB1 Living2 SAB1 IAB0 Ectopic0 Multiple0 Live Births2 2014- , vag MAB 2016- , c-sec placenta previa Current meds: PNV Last growth US 07/11, pt. Advised to schedule growth US every 4 weeks. Pt. Scheduled for [facility] GDM class on 08/[address] Quintanilla. Jessy Lilly RN Records sent to medical records, and also available in [address]. Allergies As of Date: 07/20/2024 (No Known Allergies) Date Reviewed: 01/20/2024 Reviewed by: Andressa Abraham APRN.VARNISH MAKER - Fully Assessed Prescriptions as of 08/04/2024 - vit/iron fum/folic ac ( 1 + 1 ORAL) Take by mouth. - mv-min/iron/folic/calci um/vitK (WOMEN'S MULTIVITAMIN ORAL) Take by mouth. Problem List As Of Date 07/20/2024 Noted Resolved Complete placenta previa with hemorrhage, third*12/09/2016 06/01/2024 Encounter Status:Closed by JESSY LILLY on 07/20/24 Normal [facility] ALL CBC WITH AUTO DIFFon BASOPHILS ABSOLUTE AUTO 0 [facility] Basophils/100 WBC (Bld) 0.2 % 0.2 - 2.0 % [facility] Eosinophils/100 WBC (Bld) 0.6 % Low 0.9 - 7.0 % [facility] Erythrocyte distribution width (RBC) [Ratio] 13.2 % 11.0 - 15.0 % [facility] Hematocrit (Bld) [Volume fraction] 34 % Low 36.0 - 48.0 % [facility] Hemoglobin (Bld) [Mass/Vol] 11.1 g/dL Low 12.0 - 16.0 g/dL [facility] IMMATURE GRANULOCYTES ABS AUTO 0.15 High [facility] Immature granulocytes/100 WBC (Bld) 1.9 % High 0.0 - 0.5 % [facility] Interpretation and review of laboratory results Abnormal [facility] LYMPHOCYTES ABSOLUTE AUTO 1.5 [facility] Lymphocytes/100 WBC (Bld) 18.9 % Low 20.5 - 60.0 % [facility] MCH (RBC) [Entitic mass] 28.6 pg 26.7 - 34.0 pg [facility] MCHC (RBC) [Mass/Vol] 32.6 g/dL 29.9 - 35.2 g/dL [facility] MCV (RBC) [Entitic vol] 87.6 fL 81.0 - 99.0 fL [facility] MONOCYTES ABSOLUTE AUTO 0.4 [facility] Monocytes/100 WBC (Bld) 5.3 % 1.7 - 12.0 % [facility] NEUTROPHILS ABSOLUTE AUTO 5.9 [facility] Neutrophils/100 WBC (Bld) 73.1 % 43.0 - 75.0 % [facility] Platelet mean volume (Bld) [Entitic vol] 10.9 fL 9.5 - 13.5 fL [facility] TBH EO # 0.1 [facility] TBH PLT [address] [facility] RBC 3.88 Low [facility] TB WBC 8.1 [facility] Urinalysis macro (dipstick) panel (U)on 06-27-2024 Bilirubin, UA Negative Negative - 4(70) +++ mg/dL [facility] Blood, UA Negative Negative - 50 Mukesh/mcL [facility] Clarity, UA Clear [facility] Color, UA Light Yellow [facility] Glucose, UA Negative Negative - 2000(110) ++++ mg/dL [facility] Interpretation and review of laboratory results Normal [facility] Ketones, UA Negative Negative - 160(16) ++++ mg/dL [facility] Leukocytes, UA Negative Negative - 500+++ Shannon/mcL [facility] Nitrite, UA Negative Negative - Positive [facility] Comment on above: ` pH, UA 6 5 - 9 [facility] Protein, UA Negative Negative - 2000(20) ++++ mg/dL [facility] Spec Grav, UA 1.025 1 - 1.03 [facility] Urobilinogen, UA 1.0 0.2 - 12 mg/dL [facility] US OB FOLLOW UP TRANSABDOMIN AL APPROACHon [...] II, MD, PHD at 11-Jul-2024 11:47:38 PM [facility] Normal Not Available Comment on above: [...] 6 oz EFW by: Hadlock (HC-AC-FL) Extended Autographer 4.7 mm CM 8.4 mm Nasal bone [...] normal LVOT view: normal 3-vessel view: normal 1-yyuxit-mrghvlg view: normal Heart / Thorax Situs: situs [...] ovary: Not visualized Performed By: Yola Jung RDMS Read By: Leonid Myers M.D. MATERNAL MEDICINE [facility] Radiology Study observation (narrative) [facility] US BREAST COMPLETE RIGHTo n 05-31-2024 US BREAST COMPLETE RIGHT This is a [...] GDLNon AGE GDLN ACOG TESTING Note . [facility] Comment on above: TESTS RESULT FLAG UN ITS REF RANGE LAB Clinician Provided Cytology Information Source.............Cervix Other.............. No. of containers..01 ThinPrep Vial Age Algo ACOG Akua... FLAG LEGEND: L-Low Normal,H-High Normal,LL-Alert Low,HH-Alert High <-Panic Low,>-Panic High,A-Abnormal,AA-Critical Abnormal Performed at: 01 =[facility] [place] [place] [address] Maribel Martin MD, HPV APTIMA Negative Negative [facility] Comment on above: This nucleic acid am plification test detects fourteen high- risk HPV types (16,18,31,33,35,39,45,51,52,56,58,59,66,68) without differentiation. Performed at: =G - [facility] [address] [id number] Resourcing Advisor: Maribel Martin MD, Phone: [phone] Performed at: - [facility] [id number] Resourcing Advisor: Maribel Martin MD, Phone: [phone] IGP, APTIMA HPV, RFX 16/18,45 Note . [facility] Comment on above: TESTS RESULT FLAG U NITS REF RANGE LAB DIAGNOSIS: 02 NEGATIVE FOR INTRAEPITHELIAL LESION OR MALIGNANCY. Specimen adequacy: 02 Satisfactory for evaluation. No endocervical component is identified. An endocervical component is not commonly seen in the patient. Performed by: 02 [employer] Supervisor (ASCP) . 02 Note: Note 02 The [...] High <-Panic Low,>-Panic High,A-Abnormal,AA-Critical Abnormal Performed at: [facility] [address] Maribel Martin MD, SPATULA-ALONE [facility] RECURRENT VAGINITIS (HTRX)on 04-20-2024 ATOPOBIUM VAGINAE 0 [facility] ATOPOBIUM VAGINAE Not detected [facility] BVAB 2,3 (BACTERIAL VAGINOSIS ASSOCIATED BACTERIA 2, 3); MOBILUNCUS SPP 0 [facility] BVAB 2,3 (BACTERIAL VAGINOSIS ASSOCIATED BACTERIA 2, 3); MOBILUNCUS SPP Not detected [facility] JOELLE ALBICANS, PARAPSILOSIS, TROPICALIS 0 [facility] JOELLE ALBICANS, PARAPSILOSIS, TROPICALIS Not detected [facility] JOELLE GLABRATA 0 [facility] JOELLE GLABRATA Not detected [facility] JOELLE KRUSEI 0 [facility] JOELLE KRUSEI Not detected [facility] CHLAMYDIA TRACHOMATIS 0 [facility] CHLAMYDIA TRACHOMATIS Not detected [facility] GARDNERELLA VAGINALIS 0 [facility] GARDNERELLA VAGINALIS Not detected [facility] MEGASPHAERA (TYPES 1, 2) 0 [facility] MEGASPHAERA (TYPES 1, 2) Not detected [facility] MYCOPLASMA GENITALIUM 0 [facility] MYCOPLASMA GENITALIUM Not detected [facility] NEISSERIA GONORRHOEAE 0 [facility] NEISSERIA GONORRHOEAE Not detected [facility] TRICHOMONAS VAGINALIS 0 [facility] TRICHOMONAS VAGINALIS Not detected [facility] Urinalysis macro (dipstick) panel (U)on 04-19-2024 Bilirubin, UA Negative Negative - 4(70) +++ mg/dL [facility] Blood, UA Negative Negative - 50 Mukesh/mcL [facility] Clarity, UA Clear [facility] Color, UA Yellow [facility] Glucose, UA Negative Negative - 1999(110) ++++ mg/dL [facility] Interpretation and review of laboratory results Normal [facility] Ketones, UA Negative Negative - 160(16) ++++ mg/dL [facility] Leukocytes, UA Negative Negative - 500+++ Shannon/mcL [facility] Nitrite, UA Negative Negative - Positive [facility] pH, UA 7.5 5 - 9 [facility] Protein, UA Negative Negative - 1999(20) ++++ mg/dL [facility] Spec Grav, UA 1.015 1 - 1.03 [facility] Urobilinogen, UA 0.2 0.2 - 12 mg/dL [facility] ALL CBC WITH AUTO DIFFon BASOPHILS ABSOLUTE AUTO 0 [facility] Basophils/100 WBC (Bld) 0.4 % 0.2 - 2.0 % [facility] Eosinophils/100 WBC (Bld) 0.9 % 0.9 - 7.0 % [facility] Erythrocyte distribution width (RBC) [Ratio] 13.1 % 11.0 - 15.0 % [facility] Hematocrit (Bld) [Volume fraction] 36.9 % 36.0 - 48.0 % [facility] Hemoglobin (Bld) [Mass/Vol] 12.3 g/dL 12.0 - 16.0 g/dL [facility] IMMATURE GRANULOCYTES ABS AUTO 0.07 High [facility] Immature granulocytes/100 WBC (Bld) 1 % High 0.0 - 0.5 % [facility] Interpretation and review of laboratory results Abnormal [facility] LYMPHOCYTES ABSOLUTE AUTO 1.8 [facility] Lymphocytes/100 WBC (Bld) 25.9 % 20.5 - 60.0 % [facility] MCH (RBC) [Entitic mass] 29.9 pg 26.7 - 34.0 pg [facility] MCHC (RBC) [Mass/Vol] 33.3 g/dL 29.9 - 35.2 g/dL [facility] MCV (RBC) [Entitic vol] 89.6 fL 81.0 - 99.0 fL [facility] MONOCYTES ABSOLUTE AUTO 0.5 [facility] Monocytes/100 WBC (Bld) 6.4 % 1.7 - 12.0 % [facility] NEUTROPHILS ABSOLUTE AUTO 4.6 [facility] Neutrophils/100 WBC (Bld) 65.4 % 43.0 - 75.0 % [facility] Platelet mean volume (Bld) [Entitic vol] 12 fL 9.5 - 13.5 fL [facility] TBH EO # 0.1 [facility] TB PLT 169 [facility] TB RBC 4.12 Low [facility] TB WBC 7 [facility] HCG ( test) Ql (U)o n 03-11-2024 Interpretation and review of laboratory results Abnormal [facility] Preg Test, Ur Positive Negative [facility] Urinalysis macro (dipstick) panel (U)on 03-11-2024 Bilirubin, UA Negative Negative - 4(70) +++ mg/dL [facility] Blood, UA Negative Negative - 50 Mukesh/mcL [facility] Clarity, UA Clear [facility] Color, UA Yellow [facility] Glucose, UA Negative Negative - 2000(110) ++++ mg/dL [facility] Interpretation and review of laboratory results Normal [facility] Ketones, UA Negative Negative - 160(16) ++++ mg/dL [facility] Leukocytes, UA Negative Negative - 500+++ Shannon/mcL [facility] Nitrite, UA Negative Negative - Positive [facility] pH, UA 7 5 - 9 [facility] Protein, UA Negative Negative - 2000(20) ++++ mg/dL [facility] Spec Grav, UA 1.02 1 - 1.03 [facility] Urobilinogen, UA 0.2 0.2 - 12 mg/dL [facility] Ambulatory Visit Summaryon 1 04-30-2023 Ambulatory [...] with effusion Duration: 10 Days Pickup at [id number] Pharmacy Information [id number]: [address] [place], [place] [id number] [phone] Allergies No Known Allergies Problems Ongoing - [...] you for choosing us for your care. Leslye Rutledge [facility] Family Medicine Office/Clini c Noteon 02-28-2024 Family Medicine Office/Clinic Note Family Medicine Office/Clinic Note Chief Complaint ear pain, cough, sore throat HPI Staff 33 year old female presents with bilateral ear pain- right is worse, cough, sore throat, mild head pressure, congestion symptoms began yesterday pt it 10 weeks History of Present Illness Reviewed and agree with above documented HPI by medical orderly. Portions of this record may have been created with voice recognition artificial intelligence software, specifically [employer], [employer] and or [employer]. Substitutions may have occurred due to the [...] for amoxicillin, instructed she can only take geec-xni-pgvjidq Tylenol for body aches, headaches, and fevers since she is . Given a work excuse note. Follow-up with primary care provider as needed. 1. Right otitis media with effusion (H65.91: Unspecified nonsuppurative otitis media, right ear) See above Ordered: amoxicillin, 960 mg = 12 mL, Oral, q12hr, X 10 day(s), # 240 mL, Refills(s) 0, Pharmacy: [facility] #[id number], 158, cm, 02/28/24 9:01:00 EST, Height/Length Dosing, [...] weight management wi (more content not included)... [facility] Comment on above: Result Comment: Elec tronically Signed By: MADALYN LOZADA, TIARRA\.br\Date and Time Signed: 02/28/24 09:58 EST Patient Letter FTon 2023 Patient Letter [facility] Patient Letter [facility] [address] [place] [address] February 28, 2024 NELLI CARPENTER [address] [place] [phone] : 1990 Please excuse NELLI CARPENTER from work . Date and/or Time of Absence: From: 02/29/24 May return to work on: 03/01/24 Restrictions: None Comments: Please excuse due to an acute illness. Provider Signature: Tiarra Katz PA-C [address] [place] [address] [facility] CNNURSEon 02-09-2024 CNNURSE Nurse Visit (HELIO) NELLI CARPENTER ([id number]) 1990 F Date Time Provider Department 02/09/24 10:30 AM NURSE [facility] LORENA CADET During your visit today, we recorded the following information about you: Parth Clark MD 02/09/2024 11:28 AM Signed Scan Visit Patient here for scan. See imaging documentation. MD Diego Bajwa Lauren, APRN.CNP 02/09/2024 12:28 PM Signed Nelli Carpenter here [...] 2024 12:27 PM Referring Provider: ANDRESSA ABRAHAM [[id number]] Allergies As of Date: 02/09/2024 (No Known Allergies) Date Reviewed: 01/20/2024 Reviewed by: Andressa Abraham APRN.CNP - Fully Assessed Visit Diagnosis: resulting from assisted reproductive technology in first trimester [O09.811] Order(s):OBSTETRIC ULTRASOUND I [[id number]] Order #: [id number]. #:[id number] WPOINTQty: 1 Prescriptions as of 02/09/2024 - vit/iron fum/folic ac ( 1 + 1 ORAL) Take by mouth. - mv-min/iron/folic/calci um/vitK (WOMEN'S MULTIVITAMIN ORAL) Take by mouth. Problem List As Of Date: 02/09/2024 (None) Encounter Status:Closed by PARTH CLARK on 02/09/24 Normal [facility] Examination level ultrasound on 02-09-2024 Indication Viability; IUI done on 01-02-24; obesity >30 Impression - Single, live, intrauterine . - An intrauterine gestational sac with a yolk sac and pole is present. - [place] rump length measurement is consistent with the [...] By: Kelly Quigley RDMS Read By: Parth Clakr M.D. MATERNAL MEDICINE [facility] Radiology Study observation (narrative) [facility] B-HCG SerPl-aCncon 4 HCG.beta subunit Qn 2270.0 m[IU]/mL High <5.0 [facility] Comment on above: Order Comment: Speci men Type: BLOOD SPECIMENOrdering Facility: [facility] Address: [address] [place] [address] Result Comment: NOBLE TITATIVE HCG NORMAL RANGES Weeks of Gestation (Weeks Since LMP) 3 Weeks (5.8-71.2 mIU/mL) 4 Weeks (9.5-750 mIU/mL) 5 Weeks (217-7138 mIU/mL) 6 Weeks (158-46824 mIU/mL) 7 Weeks (3697-967213 mIU/mL) 8 Weeks (83277-516751 mIU/mL) 9 Weeks (61151-980514 mIU/mL) 10 Weeks (58207-632614 mIU/mL) 12 Weeks (97659-536634 mIU/mL) Referenced to 4th IS of [facility] Performed By: #### 2 1198-7 ####[facility] LABCLIA [id number] [place] [address] [place] B-HCG SerPl-aCncon 4 HCG.beta subunit Qn 792.1 m[IU]/mL High <5.0 [facility] Comment on above: Order Comment: Speci men Type: BLOOD SPECIMENOrdering Facility: [facility] Address: [address] [place] [address] Result Comment: NOBLE TITATIVE HCG NORMAL RANGES Weeks of Gestation (Weeks Since LMP) 3 Weeks (5.8-71.2 mIU/mL) 4 Weeks (9.5-750 mIU/mL) 5 Weeks (217-7138 mIU/mL) 6 Weeks (158-46489 mIU/mL) 7 Weeks (3697-731634 mIU/mL) 8 Weeks (15918-165331 mIU/mL) 9 Weeks (16256-213065 mIU/mL) 10 Weeks (83593-029801 mIU/mL) 12 Weeks (38890-583924 mIU/mL) Referenced to 4th IS of [facility] Performed By: #### 2 1198-7 ####[facility] LABLUIS MIGUEL [id number] KATHYJulio [address] [place] CNPNila 01-18-2024 CNPN Telephone (REIBD) NELLI CARPENTER ([id number]) 1990 F Date Time Provider Department 01/18/24 ANDRESSA ABRAHAM REIBJulio During your visit today, we recorded the following information about you: Destiny Peters 01/18/2024 10:36 AM Signed Please call patient back regarding next steps. Jessi Yoo PA-C 01/18/2024 4:03 PM Signed Patient calls with positive urine test. History of ectopic: No History of SAB: Yes History of pelvic/abdominal surgeries: Yes, [facility] LMP 12/18, fertility medications used this cycle [...] up. Labs ordered: hCG x 2 FYI Aneglica Yoo PA-C January 18, 2024 4:02 PM Allergies As of Date: 01/18/2024 (No Known Allergies) Date Reviewed: 11/23/2023 Reviewed by: Andressa Abraham APRN.VARNISH MAKER - Fully Assessed Reason for Visit: +hpt 01/15 after an iui [Other] Primary Visit Diagnosis:Encounter for test, result positive [Z32.01] Order(s):HCG QUANTITATIVE [SQHCGQT] Order #: [id number] STANDING Prescriptions as of 01/18/2024 - vit/iron [...] Encounter Status:Closed by JESSI YOO on 01/18/24 [facility] Ania 01-02-2024 CNOV Office Visit (REIBD) NELLI CARPENTER ([id number]) 1990 F Date Time Provider Department 01/02/24 [...] Cycle Day: 15 Last menstrual period: 12/19/2023 [place] Protocol: UNIVERSAL PROTOCOL / SAFETY CHECKLIST Procedure [...] discussed with the Patient or Patient's Authorized Ehs Manager. As applicable, any other physician, advance practice provider, medical student, or other health professional student that will be observing or involved in the sensitive examination for educational or training purposes was discussed with the Patient or Authorized Ehs Manager. The Patient or Authorized Ehs Manager has agreed to proceed with the sensitive examination. (Sensitive examination includes inspection and/or palpation of the breasts, pelvis, prostate and anorectal regions) Patient declined manager of software development. IUI IUI Date: 01/02/24 Partner's Name: Wanda [...] M.D. Reproductive Endocrinology and Infertility Flavia Elizondo 01/02/2024 11:46 AM Signed IUI Xytex #: [id number] Washed frozen specimen Post: 122 m/ml, 63% Insem#: 34.7 million Referring Provider: ANDRESSA ABRAHAM [[id number]] Allergies As of Date: 01/02/2024 (No Known Allergies) Date Reviewed: 11/23/2023 Reviewed by: Andressa Abraham, OPERATIONAL TEST MECHANIC.VARNISH MAKER - Fully Assessed Primary Visit Diagnosis:Encounter for [...] Encounter Status:Closed by ANYI GANT on 01/02/24 [facility] CNOV Office Visit (ANDRBE ) NELLI CARPENTER ([id number]) 1990 F Date Time Provider Department 01/02/24 10:30 AM ANDROLOGY [facility] [place] ANDE During your visit today, we recorded the following information about you: Flavia Elizondo 01/02/2024 11:47 AM Signed Thaw for IUI Flavia Elizondo Referring Provider: ANDRESSA ABRAHAM [[id number]] Allergies As of Date: 01/02/2024 (No Known Allergies) Date Reviewed: 11/23/2023 Reviewed by: Andressa Abraham APRN.VARNISH MAKER - Fully Assessed Primary Visit Diagnosis:Procreative management [...] Encounter Status:Closed by FLAVIA ELIZONDO on 01/02/24 [facility] CNOVon 12-05-2023 CNOV Office Visit (REIBD) NELLI CARPENTER ([id number]) 1990 F Date Time Provider Department 12/05/23 [...] Cycle Day: 15 Last menstrual period: 11/21/2023 [place] Protocol: UNIVERSAL PROTOCOL / SAFETY CHECKLIST Procedure [...] EMERGENT procedures): No specimen collected. Patient declined manager of software development. Uma Aguilera MD IUI IUI Date: 12/05/23 [...] after wash): 49 million Donor ID #: [id number] Cycle reviewed, all questions answered. Pt instructed to take a test in 17 days if no menses and call with results. SIGNATURE: Uma Aguilera MD PATIENT NAME: Nelli Carpenter DATE: December 05, 2023 TIME: 10:31 AM I was present and immediately available for the entire procedure. Patient underwent an intrauterine insemination. Myriam Dominguez MD, TRUDY Lara 12/06/2023 8:45 AM Signed IUI Xytex #[id number] Frozen washed specimen Post: 145 Million/mL, 68% Insem #: 49 Million Referring Provider: ANDRESSA ABRAHAM [[id number]] Allergies As of Date: 12/05/2023 (No Known Allergies) Date Reviewed: 11/23/2023 Reviewed by: Andressa Abraham, OPERATIONAL TEST MECHANIC.VARNISH MAKER - Fully Assessed Primary Visit Diagnosis:Female infertility [...] Encounter Status:Closed by MYRIAM DOMINGUEZ on 12/06/23 [facility] CNOV Office Visit (ANDRBE ) NELLI CARPENTER ([id number]) 1990 F Date Time Provider Department 12/05/23 9:30 AM ANDROLOGY [facility] During your visit today, we recorded the following information about you: Stephanie Lara 12/05/2023 10:23 AM Signed Thaw for IUI Stephanie Lara Referring Provider: ANDRESSA ABRAHAM [[id number]] Allergies As of Date: 12/05/2023 (No Known [...] Encounter Status:Closed by STEPHANIE LARA on 12/05/23 [facility] [id number] 11-23-2023 HNO ID: [id number] Author: ANDRESSA ABRAHAM APRN.CNP Service: ? 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 Tubal Patency Testing: defer for now Sperm Source:Donor Frozen Treatment Protocol: Natural Cycle Monitoring Plan: OPKs Ovidrel Trigger: No Supplemental Progesterone: None Comments: None Andressa Abraham APRN.VARNISH MAKER 11/23/2023 Normal [facility] Progesterone [Mass/Vol] 7.4 ng/mL Normal See comment [facility] Comment on above: Order Comment: Speci men Type: BLOOD SPECIMENOrdering Facility: [facility] Address: [address] [place] [address] Result Comment: Mens trual Cycle Progesterone Reference Ranges: Follicular: <1.0 ng/mL Ovulation: <12.1 ng/mL Luteal: 1.8 to 23.9 ng/mL. Progesterone Reference Ranges vary by gestational period: First Trimester: 11.0 to 44.3 ng/mL Second Trimester: 25.4 to 83.3 ng/mL Third Trimester: 58.7 to 214 ng/mL Post menopausal Progesterone: <0.5 ng/mL Reference: 1. Progesterone (Progesterone III) [package insert V 1.0 Iraqi]. [facility], [place], [place]. December 2014. Performed By: #### 2 839-9 ####[facility] LABCLIA [id number] [address] [place] [facility]23 SAYDA Telephone (REIBD) NELLI CARPENTER ([id number]) 1990 F Date Time Provider Department 10/12/23 [...] Date Reviewed: 09/11/2023 Reviewed by: Andressa Abraham APRN.VARNISH MAKER - Fully Assessed Reason for Visit: +ovulation test SatANDSund d14 AND 15 partner calling [Other] Primary Visit Diagnosis:Female infertility [N97.9] Order(s):PROGESTERONE [SQPROG] Order #: [id number] FUTURE Prescriptions as of 10/12/2023 - vit/iron fum/folic ac ( 1 + 1 ORAL) Take by mouth. - mv-min/iron/folic/calci um/vitK (WOMEN'S MULTIVITAMIN ORAL) Take by mouth. - BIOTIN ORAL Take by mouth once daily. - levonorgestrel (MIRENA) 20 mcg/24 hr IUD 1 Each by INTRAUTERINE route one time only. Problem List As Of Date: 10/12/2023 (None) Encounter Status:Closed by JESSI YOO on 10/12/23 [facility] CNOVon 09-11-2023 CNOV Office Visit (REIBD) PAULINECHUCKYN ([id number]) 1990 F Date Time Provider Department 09/11/23 8:00 AM ANDRESSA ABRAHAM REIBJulio During your visit today, we recorded the following information about you: Andressa Abraham APRN.CNP 09/15/2023 4:56 PM Signed REPRODUCTIVE ENDOCRINOLOGY AND [...] favorite donors - send to me via [employer] to confirm Confirmed best vial type to order: IUI/prewashed Will need to follow up to firm up treatment plan and review IUI scheduling instructions. Andressa Abraham APRN.VARNISH MAKER September 11, 2023 8:08 AM I spent a total of 50 minutes on the date of the service which included preparing to see the patient, gmdv-aj-ecwn patient care, completing clinical documentation, obtaining and/or [...] to communic (more content not included)... Normal [facility] Ambulatory Visit Summaryon 1 05-17-2022 Ambulatory Visit [...] for choosing us for your care. Normal [facility] Family Medicine Office/Clini c Noteon 03-16-2023 [...] data available Patient Education Wrist Pain, Adult, Acgx-lo-Nndh Problem List/Past Medical History Ongoing Acute sinusitis [...] (COVID-19) mRNA-1273 vaccine 08/17/2020 Recorded SARS-CoV-2 (COVID-19) mRNA-1276 vaccine 07/20/2020 Recorded influenza virus vaccine, inactivated [...] DTaP, unspecified formulation 1990 Recorded Normal [facility] Comment on above: Result Comment: Elec tronically Signed By: Zach BOWLING, Rip Cordero.br\Date and Time Signed: 03/16/23 16:13 EST Patient [...] any changes in your symptoms. ? Take msds-qbf-vfhmsbo and prescription medicines only as told by [...] Reviewed: 02/02/2020 Elsevier Patient Education ? 2022 [employer] Normal [facility] XR Wrist 3+ Views Righton XR [...] mGy = . DAP = . Normal [facility] Covid 19 Resultson 1 SARS-CoV-2 (COVID-19) [...] You may also be contacted by the [facility] to see if any of your [...] or Naproxen (Aleve) can also be used. Ebxa-yes-hfblqjg cough and cold medicines can be used according to the instructions on the package. Some mzwt-vjt-yykukrx medicines also contain acetaminophen. Make sure you [...] water are not available, use alcohol-based hand shipping packer. Avoid touching your eyes, nose, and mouth [...] 24 de (more content not included)... Normal [facility] INFLUENZA A/B, COVID 2019 PC R,SYMPTOMATICon 03-12-2021 INFLUENZA A, PCR Not detected Normal Not Detected [facility] Comment on above: Result Comment: Resp iratory virus testing is performed routinely by PCR for Influenza A/B and RSV. If Influenza and RSV PCR are negative, testing for parainfluenza 1,2,3 viruses and adenovirus is routinely performed for oncology inpatients and intensive care unit patients at [facility] and is available on request on other patients by calling Laboratory Client Services at [phone]. Not Detected results do not preclude Influenza A/B or RSV infections since the adequacy of sample collection or low viral burden may impact the clinical sensitivity of this test method. Performed By: #### C OINP #### [facility] [address] [place] [address] INFLUENZA B, PCR Not detected Normal Not Detected [facility] Comment on above: Result Comment: Resp iratory virus testing is performed routinely by PCR for Influenza A/B and RSV. If Influenza and RSV PCR are negative, testing for parainfluenza 1,2,3 viruses and adenovirus is routinely performed for oncology inpatients and intensive care unit patients at [facility] and is available on request on other patients by calling Laboratory Client Services at [phone] Not Detected results do not preclude Influenza [...] by the Microbiology Laboratory, Department of Pathology, [facility], [place], [place]. It has not been cleared or approved by the US Food and Drug Administration; however, FDA clearance or approval is not currently required for clinical use. This test should not be regarded as investigational or for research purposes. Performed By: #### C OINP #### [facility] [address] [place] [address] SARS-CoV-2 (COVID-19) RNA PENNY+probe Ql (Unsp spec) Not detected Normal Not Detected [facility] Comment on above: Result Comment: . [...] patient management decisions. Fact sheet for providers: https://www.fda.gov/media/822466/download Fact sheet for patients: https://www.fda.gov/media/147804/download This test has received FDA Emergency Use Authorization (EUA) and has been verified by [facility] ([facility]). This test is only authorized for the duration of time that circumstances exist to justify the authorization of the emergency use of in vitro diagnostic tests for the detection of SARS-CoV-2 virus and/or diagnosis of COVID-19 infection under section 564(b)(1) of the Act, 21 U.S.C. 360bbb-3(b)(1), unless the authorization is terminated or revoked sooner. [facility] is certified under CLIA-88 as qualified to perform high complexity testing. Testing is performed in the [facility] laboratories located at [address] [place] [address]. Performed By: #### C OINP #### [address] [place] [address] INFLUENZA A/B, COVID 2019 PC R,SYMPTOMATICon 03-11-2021 DATE OF SYMPTOM ONSET [YYYYMMDD]? [id number] Normal [facility] Comment on above: Performed By: #### C OINP #### [address] [place] [address] Lab Specimen Source Nasal, Nasopharyngeal Normal [facility] Comment on above: Performed By: #### C OINP #### [address] [place] [address] Provider Note - ED v2on 02-27 Provider [...] a day Drug Name: brompheniramine/pseudoe phedrine/dextromethorph an 9yl-07sv-10sj/5 mL oral syrup Instructions: 5 milliliter(s) orally every 4 to 6 hours, As Needed Drug Name: cetirizine 10 mg oral tablet Instructions: 1 tab(s) orally once a day SIGNIFICANT EVENTS: Other Description:NO SURGICAL HISTORY THIS YEAR Additional Notes:02/2021 Description:NON SMOKER Additional Notes:02/2021 Past Medical History Description:NO CHRONIC HEALTH ISSUES Additional Notes:02/2021 LINOLEUM TILE LAYER: Is : no Is : no REVIEW [...] SIGNS: T PRBP SpO2O2(LPM) %FiO2 Method 11-Mar-2021 10:17:[id number]/67 97 PHYSICAL EXAM CONSTITUTIONAL: Appearance: well appearing [...] Electronic Signatures for Addendum Section: Filomena Zamora (OPERATIONAL TEST MECHANIC-VARNISH MAKER) (Signed Addendum 12-Mar-2021 09:58) Left message for call back regarding test results for pt, and her 2 daughters. Filomena Zamora (OPERATIONAL TEST MECHANIC-VARNISH MAKER) (Signed Addendum 12-Mar-2021 13:53) Spoke with patient and advised her of negative Covid test results, patien (more content not included)... Normal [facility] Hemoglobin and Hematocriton 12-10-2016 Hematocrit (HCT) 30.2 % Low 36.5-46.6 [facility] Comment on above: Performed By: #### 2 [id number] ####[facility] [address] [place] [address] Hemoglobin mass conc (Bld) 9.8 g/dL Low 11.8-15.3 [facility] Comment on above: Performed By: #### 2 [id number] ####[facility] [address] [place] [address] CBC With Differentialon 11-28 Basophils Auto #/vol (Bld) 0.05 10*3/uL Normal 0.01-0.07 [facility] Comment on above: Performed By: #### 2 782025 ####[facility] [address] [place] [address] Basophils/100 WBC Auto (Bld) 0.5 % Normal 0.1-1.2 [facility] Comment on above: Performed By: #### 2 009040 ####[facility] [address] [place] [address] Eosinophils 0.08 10*3/uL Normal 0.04-0.50 [facility] Comment on above: Performed By: #### 2 374924 ####[facility] [address] [place] [address] Eosinophils/100 leukocytes 0.7 % Normal 0.0-8.1 [facility] Comment on above: Performed By: #### 2 695090 ####[facility] [address] [place] [address] Erythrocyte distribution width Auto Ratio (RBC) 14.8 % Normal 12.0-15.4 [facility] Comment on above: Performed By: #### 2 080026 ####[facility] [address] [place] [address] Erythrocytes (RBC) 0.0 /100{WBCs} Normal [facility] Comment on above: Performed By: #### 2 014799 ####[facility] [address] [place] [address] Erythrocytes (RBC) 3.87 10*6/uL Normal 3.85-5.10 [facility] Comment on above: Performed By: #### 2 349872 ####[facility] [address] [place] [address] Erythrocytes (RBC) 0.00 10*3/uL Normal [facility] Comment on above: Performed By: #### 2 [id number] ####[facility] [address] [place] [address] Hematocrit (HCT) 34.5 % Low 36.5-46.6 [facility] thcare Comment on above: Performed By: #### 2 143326 ####[facility] [address] [place] [address] Hemoglobin mass conc (Bld) 11.4 g/dL Low 11.8-15.3 [facility] Comment on above: Performed By: #### 2 [id number] ####[facility] [address] [place] [address] Imm Grans Absolute 0.55 10*3/uL High 0.00-0.21 [facility] Comment on above: Performed By: #### 2 215028 ####[facility] [address] [place] [address] Immature granulocytes #/vol (Bld) 5.0 % Normal [facility] Comment on above: Performed By: #### 2 152888 ####[facility] [address] [place] [address] Lymphocytes 1.91 10*3/uL Normal 0.40-2.84 [facility] Comment on above: Performed By: #### 2 365587 ####[facility] [address] [place] [address] Lymphocytes/100 leukocytes 17.2 % Normal 15.7-50.5 [facility] Comment on above: Performed By: #### 2 751064 ####[facility] [address] [place] [address] MCH 29.5 pg Normal 27.5-33.0 [facility] Comment on above: Performed By: #### 2 [id number] ####[facility] [address] [place] [address] MCHC mass conc (RBC) 33.0 g/dL Normal 30.1-35.0 [facility] Comment on above: Performed By: #### 2 093197 ####[facility] [address] [place] [address] MCV 89.1 fL Normal 85.4-100.0 [facility] Comment on above: Performed By: #### 2 724556 ####[facility] [address] [place] [address] Monocytes 0.84 10*3/uL High 0.25-0.83 [facility] re Comment on above: Performed By: #### 2 448091 ####[facility] [address] [place] [address] Monocytes/100 leukocytes 7.6 % Normal 4.8-12.7 [facility] Comment on above: Performed By: #### 2 642795 ####[facility] [address] [place] [address] Neutrophils 7.66 10*3/uL High 1.95-6.85 [facility] are Comment on above: Performed By: #### 2 623145 ####[facility] [address] [place] [address] Neutrophils/100 leukocytes 69.0 % Normal 36.8-73.2 [facility] Comment on above: Performed By: #### 2 585592 ####[facility] [address] [place] [address] Platelet mean volume (PMV) 10.7 fL Normal 9.9-12.1 [facility] Comment on above: Performed By: #### 2 747877 ####[facility] [address] [place] [address] Platelets 197 10*3/uL Normal 155-404 [facility] e Comment on above: Performed By: #### 2 378631 ####[facility] [address] [facility] [place] [address] RDW SD 48.2 fL Normal 39.3-48.6 [facility] Comment on above: Performed By: #### 2 631979 ####[facility] [address] [place] [address] WBC (Leukocytes) 11.1 10*3/uL High 4.4-9.9 [facility] Comment on above: Performed By: #### 2 139812 ####[facility] [address] [place] [address] Pathology ([facility])on 12-09-2016 Pathology ([facility]) FINAL SURGICAL PATHOLOGY [id number] FINAL DIAGNOSISPLACENTA-THIRD TRIMESTER PLACENTA WITH ACCESSORY LOBE , 470 GRAMS.FOCAL FIBRIN PLAQUE FORMATION.FOCAL DYSTROPHIC MICROCALCIFICATIONS.THR EE-VESSEL UMBILICAL CORD, NEGATIVE FOR FUNISITIS. MEMBRANES, NEGATIVE FOR CHORIOAMNIONITIS.CLINIC AL HISTORY: 37 WEEKS INTRAUTERINE , HISTORY OF PREVIA WITH BLEEDINGOPERATION:PRIMA RY SECTIONSPECIMEN(S):(A) PLACENTA, THIRD TRIMESTERPerformed at [facility], [address] [place] [id number] DESCRIPTION:Received fresh, labeled with the patient's name, [...] are intact and range from0.05-0.1 cm in diameter.Ehs Manager sections of cord, membranes, and placenta are submitted in sixcassettes.TASSummary of cassettes:A1 - cordA2, A3 - membranesA4, A5, A6 - inside sales account representative sections of placentaSigned Out by:ANABEL PITTMANeported: 12/11/2016 Normal [facility] Comment on above: Performed By: #### S UR ####[facility] [address] [place] [address] Red Blood Cellson 12-09-2016 Erythrocytes (RBC) Normal [facility] althcare Comment on above: Result Comment: [id number] released Performed By: #### R C ####[facility] (UNKNOWN)[place] [address] [facility], [place] [id number] Type and Screenon 12-09-2016 Antibody Screen Negative Normal [facility] Comment on above: Performed By: #### T S3 ####[facility] [address] [place] [address] Group and Rh Positive Normal [facility] re Comment on above: Performed By: #### T S3 ####[facility] [address] [place] [address] PREG COMPL ECHO W/O NIKKI ALIZA VEYon 12-03-2016 PREG COMPL ECHO W/O NIKKI SURVEY DATE OF EXAM: Dec 03 2016 3:38PMCLINICAL HISTORY/ Name: KANIKA MCCULLOUGHUDY:PREG COMPL ECHO W/O NIKKI SURVEY 12/03/2016 3:38 pmINDICATION:Growth assessment. Placenta previa.COMPARISON:Repor t from a previous obstetrical ultrasound of 10/30/2016 was reviewed. ERING CLINICIAN:KEITH ROSAS:Routine ultrasound of the pelvis was [...] closed with length of 3.3 cm. Normal [facility] Culture Urineon 11-06-2016 Culture Urine STATUS: FINAL REPORT SITE: SOURCE: Urine Culture Urine: <1,000 cfu/ml--No growth Normal [facility] Comment on above: Performed By: #### [id number] ####[facility] [address] [place] [address] Vital Signs Date Time Vital Sign Value Performing Clinician Facility 08-08-2024 14:32-0400 Body mass index (BMI) [Ratio] 39.33 kg/m2 Andrea Conner DO Work Phone: [facility] 08-08-2024 14:32-0400 Body weight 100.7 kg Andrea Conner DO Work Phone: [facility] 08-08-2024 14:32-0400 Diastolic blood pressure 78 mm[Hg] Andrea Conner DO Work Phone: [facility] 08-08-2024 14:32-0400 Systolic blood pressure 122 mm[Hg] Andrea Conner DO Work Phone: [facility] 07-25-2024 11:01-0400 Body mass index (BMI) [Ratio] 39.55 kg/m2 Dina Gerard NP Work Phone: [facility] 07-25-2024 11:01-0400 Body weight 101.27 kg Dina Gerard NP Work Phone: [facility] 07-25-2024 11:01-0400 Diastolic blood pressure 80 mm[Hg] Dina Moustapha LAWNMOWER REPAIR MECHANIC Work Phone: [facility] 07-25-2024 11:01-0400 Systolic blood pressure 116 mm[Hg] Dina Moustapha LAWNMOWER REPAIR MECHANIC Work Phone: [facility] 07-11-2024 11:22-0400 Body mass index (BMI) [Ratio] 39.37 kg/m2 Andrea Conner DO Work Phone: [facility] 07-11-2024 11:22-0400 Body weight 100.81 kg Andrea Conner DO Work Phone: [facility] 07-11-2024 11:22-0400 Diastolic blood pressure 80 mm[Hg] Andrea Conner DO Work Phone: [facility] 07-11-2024 11:22-0400 Systolic blood pressure 120 mm[Hg] Andrea Conner DO Work Phone: [facility] 06-22-2024 13:40-0400 Body mass index (BMI) [Ratio] 39.33 kg/m2 Andrea Conner DO Work Phone: [facility] 06-22-2024 13:40-0400 Body weight 100.7 kg Andrea Conner DO Work Phone: [facility] 06-22-2024 13:40-0400 Diastolic blood pressure 74 mm[Hg] Andrea Conner DO Work Phone: [facility] 06-22-2024 13:40-0400 Systolic blood pressure 118 mm[Hg] Andrea Conner DO Work Phone: [facility] 04-19-2024 10:48-0500 Body mass index (BMI) [Ratio] 37.2 kg/m2 Andrea Conner DO Work Phone: [facility] 04-19-2024 10:48-0500 Body weight 95.25 kg Andrea Conner DO Work Phone: [facility] 04-19-2024 10:48-0500 Diastolic blood pressure 80 mm[Hg] Andrea Conner DO Work Phone: [facility] 04-19-2024 10:48-0500 Systolic blood pressure 122 mm[Hg] Andrea Conner DO Work Phone: [facility] 02-28-2024 09:00-0500 Blood Pressure Location TIARRA KATZ [facility] 02-28-2024 09:00-0500 Body temperature 98.96 [degF] [facility] 02-28-2024 09:00-0500 Diastolic blood pressure 80 mm[Hg] [facility] 02-28-2024 09:00-0500 Heart rate 92 /min [facility] 02-28-2024 09:00-0500 SaO2% (BldA) [Mass fraction] 98 % [facility] 02-28-2024 09:00-0500 Systolic blood pressure 124 mm[Hg] [facility] 12-28-2023 08:37-0400 Body height 160 cm Karen Bolanos MD Work Phone: [facility] 12-28-2023 08:37-0400 Body mass index (BMI) [Ratio] 37.02 kg/m2 Karen Bolanos MD Work Phone: [facility] 12-28-2023 08:37-0400 Body temperature 98.6 [degF] Karen Bolanos MD Work Phone: [facility] 12-28-2023 08:37-0400 Body weight 94.8 kg Karen Bolanos MD Work Phone: [facility] 12-28-2023 08:37-0400 Diastolic blood pressure 78 mm[Hg] Karen Bolanos MD Work Phone: [facility] 12-28-2023 08:37-0400 Heart rate 76 /min Karen Bolanos MD Work Phone: [facility] 12-28-2023 08:37-0400 SaO2% (BldA) [Mass fraction] 98 % Karen Bolanos MD Work Phone: [facility] 12-28-2023 08:37-0400 Systolic blood pressure 116 mm[Hg] Karen Bolanos MD Work Phone: [facility] 06-08-2023 09:50-0400 Body height 160 cm Rahul Zheng MD Work Phone: [facility] 06-08-2023 09:50-0400 Body weight 89 kg Rahul Zheng MD Work Phone: [facility] 06-08-2023 09:50-0400 Diastolic blood pressure 83 mm[Hg] Rahul Zheng MD Work Phone: [facility] 06-08-2023 09:50-0400 Systolic blood pressure 132 mm[Hg] Rahul Zheng MD Work Phone: [facility] 03-16-2023 15:08-0500 Blood Pressure Location TIARRA KATZ [facility] 03-16-2023 15:08-0500 Body temperature 98.42 [degF] TIARRA KATZ [facility] 03-16-2023 15:08-0500 Diastolic blood pressure 84 mm[Hg] TIARRA KATZ [facility] 03-16-2023 15:08-0500 Heart rate 73 /min TIARRA KATZ [facility] 12-18-2023 15:08-0500 SaO2% (BldA) [Mass fraction] 96 % TIARRA KATZ [facility] 03-16-2023 15:08-0500 Systolic blood pressure 128 mm[Hg] TIARRA KATZ [facility] 03-11-2021 12:17-0500 Body height 160 cm Karen Luis Miguel Other Phone: [facility] 03-11-2021 12:17-0500 Body temperature 98.06 [degF] Karen Luis Miguel Other Phone: [facility] 03-11-2021 12:17-0500 Diastolic blood pressure 67 mm[Hg] Karen Luis Miguel Other Phone: [facility] 03-11-2021 12:17-0500 Heart rate 78 /min Karen Luis Miguel Other Phone: [facility] 03-11-2021 12:17-0500 Respiratory rate 20 /min Karen Luis Miguel Other Phone: [facility] 03-11-2021 12:17-0500 SaO2% (BldA) [Mass fraction] 97 % Karen Luis Miguel Other Phone: [facility] 03-11-2021 12:17-0500 Systolic blood pressure 101 mm[Hg] Karen Luis Miguel Other Phone: [facility] Encounters Encounter Date Encounter Type Care Provider Facility Start: 08-14-2024 End: 08-14-2024 Clinisync Result Encounter Andrea Conner DO Work Phone: [facility] Unsolicited Start: 08-14-2024 End: 08-14-2024 Clinisync Result Encounter Andrea Conner DO Work Phone: [facility] Unsolicited Start: 08-08-2024 End: 08-08-2024 flow sheet Andrea [...] 07-25-2024 End: 07-25-2024 Bamboo flowsheet Dina Moustapha LAWNMOWER REPAIR MECHANIC Work Phone: [facility] Start: 07-25-2024 End: 07-25-2024 Bamboo flowsheet Dina Moustapha LAWNMOWER REPAIR MECHANIC Work Phone: [facility] Start: 07-25-2024 End: 07-25-2024 flow sheet Dina Moustapha LAWNMOWER REPAIR MECHANIC Work Phone: [facility] Comment on [...] dates Start: 06-01-2024 End: 06-01-2024 ambulatory [facility] Facility:[facility] Start: 06-01-2024 End: 06-01-2024 Patient encounter procedure [facility] Tech 3 Fire Production Operator [facility] Maternal Medicine [facility] Comment on above: Encounter for anatomic survey (Primary Dx); Obesity affecting in second trimester, unspecified obesity type; Class 1 obesity without serious comorbidity with body mass index (BMI) of 34.0 to 34.9 in adult, unspecified obesity type; 23 weeks gestation of Start: 05-31-2024 End: 05-31-2024 ambulatory ANDREA CONNER Not Available Start: 05-27-2024 End: 05-27-2024 Transcribe Orders Fire Production Operator Transcribe Provider Maternal Medicine Comment on above: [...] encounter procedure Andrea Conner DO Work Phone: [facility] Start: 04-19-2024 End: 04-19-2024 Periodic preventive med est patient 18-39 yrs Andrea Conner DO Work Phone: [facility] Comment on above: Well woman [...] GA: 11w6d Start: 03-11-2024 End: 03-11-2024 ambulatory ANDREA CONNER Not Available Start: 02-28-2024 End: 02-28-2024 ambulatory TIARRA KATZ Facility:[facility] Start: 02-28-2024 End: 02-28-2024 Patient encounter procedure TIARRA KATZ [facility] Start: 02-16-2024 End: 02-16-2024 ambulatory Andressa Abraham APRN.VARNISH MAKER Work Phone: [facility] Comment on above: Records Start: 02-09-2024 End: 02-09-2024 Nursing evaluation of patient and report Fern Lamar MD Work Phone: [facility] Comment on above: resulting from assisted reproductive technology in first trimester Start: 02-09-2024 End: 02-09-2024 ambulatory ANDRESSA ABRAHAM Facility:[facility] Start: 01-21-2024 End: 01-21-2024 ambulatory JESSI YOO Facility:[facility] Start: 01-20-2024 End: 01-20-2024 ambulatory Andressa Abraham OPERATIONAL TEST MECHANIC.VARNISH MAKER Work Phone: [facility] Comment on above: resulting from assisted reproductive technology in first trimester (Primary Dx) Start: 01-20-2024 End: 01-20-2024 Telemedicine consultation with patient Andressa Abraham OPERATIONAL TEST MECHANIC.VARNISH MAKER Work Phone: [facility] Start: 01-19-2024 End: 01-19-2024 ambulatory JESSI YOO Facility:[facility] Start: 01-18-2024 End: 01-18-2024 Telephone encounter Andressa Abraham OPERATIONAL TEST MECHANIC.VARNISH MAKER Work Phone: [facility] Comment on above: +hpt 01/15 after an iui Start: 01-02-2024 End: 01-02-2024 ambulatory ANYI GANT Facility:[facility] Start: 01-02-2024 End: 01-02-2024 Patient encounter procedure Anyi Gant MD Work Phone: [facility] Comment on above: Encounter for artifi cial insemination (Primary Dx) Procreative manageme nt (Primary Dx) Start: 12-30-2023 End: 12-30-2023 ambulatory ANDRESSA ABRAHAM Facility:[facility] Start: 12-28-2023 End: 12-28-2023 Shreyas Bolanos MD Work Phone: [facility] Start: 12-28-2023 End: 12-28-2023 Shreyas Bolanos MD Work Phone: [facility] Start: 12-28-2023 End: 12-28-2023 Office outpatient visit 15 minutes Karen Bolanos MD Work Phone: [facility] Comment on above: Infertility, female (Primary Dx); BMI 37.0-37.9, adult; Morbid obesity (CMS/HCC) Start: 12-28-2023 End: 12-28-2023 ambulatory KAREN BOLANOS Not Available Start: 12-05-2023 End: 12-05-2023 ambulatory ANDRESSA ABRAHAM Facility:[facility] Start: 12-05-2023 End: 12-05-2023 Patient encounter procedure Andrology Cardiopulmonary Technologist Work Phone: [facility] Comment on above: Procreative manageme nt (Primary Dx) Female infertility ( Primary Dx) Start: 12-04-2023 End: 12-04-2023 ambulatory Andressa Abraham APRN.VARNISH MAKER Work Phone: [facility] Comment on above: Financial clearance Start: 11-23-2023 End: 11-23-2023 ambulatory Andressa Abraham OPERATIONAL TEST MECHANIC.VARNISH MAKER Work Phone: [facility] Comment on above: Reproductive mgmt, i nfertility due to male factor (Primary Dx) Start: 11-23-2023 End: 11-23-2023 Telemedicine consultation with patient Andressa Abraham WINDY.LEXUS Work Phone: [facility] Start: 10-29-2023 E-mail encounter fro m caregiver Vidhya Pitt APRN.LEXUS Work Phone: [facility] Start: 10-29-2023 Follow-up encounter Vidhya osorio APRN.VARNISH MAKER Work Phone: [facility] Comment on above: Follow up Start: 10-16-2023 End: 10-16-2023 ambulatory JESSI YOO Facility:[facility] Start: 10-12-2023 Telephone encounter Andressa Abraham APRN.LEXUS Work Phone: [facility] Comment on above: +ovulation test Sat& Sund d14 & 15 partner calling Start: 10-05-2023 ambulatory Andressa Deleon angelita OPERATIONAL TEST MECHANIC.VARNISH MAKER Work Phone: [facility] Comment on above: Doner Start: 09-11-2023 End: 09-11-2023 ambulatory ANDRESSA ABRAHAM Facility:[facility] Start: 09-11-2023 End: 09-11-2023 Patient encounter procedure Andressa Abraham OPERATIONAL TEST MECHANIC.VARNISH MAKER Work Phone: [facility] Comment on above: Encounter for fertil ity planning (Primary Dx) Start: 07-28-2023 Telephone encounter Rahul carroll MD Work Phone: [facility] Comment on above: Lila bloodwork compl eted today Start: 06-15-2023 End: 06-15-2023 ambulatory Andressa Abraham OPERATIONAL TEST MECHANIC.VARNISH MAKER Work Phone: [facility] Comment on above: Encounter for fertil ity planning (Primary Dx); Encounter for other genetic testing of female for procreative management Start: 06-15-2023 End: 06-15-2023 Telemedicine consultation with patient Andressa Abraham OPERATIONAL TEST MECHANIC.VARNISH MAKER Work Phone: [facility] Start: 06-08-2023 End: 06-08-2023 Patient encounter procedure Rahul Zheng MD Work Phone: [facility] Comment on above: Procreative manageme nt counseling (Primary Dx); BMI 34.0-34.9,adult Start: 03-16-2023 End: 03-16-2023 ambulatory TIARRA KATZ Facility:[facility] Start: 03-16-2023 End: 03-16-2023 Patient encounter procedure TIARRA KATZ [facility] Start: 03-19-2022 End: 03-19-[address] ANDREA PRIETO Facility: Start: 03-11-2021 End: 03-11-2021 Emergency department patient visit Filomena Zamora [facility] Start: 12-09-2016 End: 12-11-2016 Evaluation and management of inpatient KEITH [place] Facility:[facility] Start: 12-03-2016 Ambulatory KEITH [place] [facility]: [facility] Start: 11-13-2016 End: 11-13-2016 Ambulatory CHARLIE JOEL Facility:[facility] Start: 11-06-2016 Ambulatory CHARLIE JOEL Faci lity:[facility] Procedures Date Procedure Procedure Detail Performing Clinician Start: 08-14-2024 US OB GROWTH Andrea Fazi o DO Work Phone: Start: 08-14-2024 US OB BPP W NON-STRESS Andrea Conner DO Work Phone: Start: 08-08-2024 Urnls dip stick/tabl et rgnt non-auto w/o micrscp Andrea Conner DO Work Phone: Start: 07-25-2024 Urnls dip stick/tabl et rgnt non-auto w/o micrscp Dina Gerard NP Work Phone: Start: 07-08-2024 ALL CBC WITH AUTO DIFF Karyna Craig PA Work Phone: Start: 06-27-2024 Urnls dip stick/tabl et rgnt non-auto w/o micrscp Andrea Conner DO Work Phone: Start: 06-01-2024 Us preg uterus after 1st trimest 03/30 gestation Tristan Gloria APRN.CNP Work Phone: Start: 04-19-2024 RECURRENT VAGINITIS (HTRX) Andrea Conner DO Work Phone: Start: 04-19-2024 Urnls dip stick/tabl et rgnt non-auto w/o micrscp Andrea Conner DO Work Phone: Start: 04-19-2024 IGP,APTIMA HPV,AGE GDLN Andrea Conner DO Work Phone: Start: 04-19-2024 Microscopic observat ion [Identifier] in Cervix by Cyto stain Andrea Conner DO Work Phone: Start: 03-14-2024 ALL CBC WITH AUTO DIFF Andrea Conner DO Work Phone: Start: 03-11-2024 Urnls dip stick/tabl et rgnt non-auto w/o micrscp Andrea Conner DO Work Phone: Start: 02-09-2024 Us preg uterus after 1st trimest 03/30 gestation Andressa Abraham OPERATIONAL TEST MECHANIC.VARNISH MAKER Work Phone: Start: 03-19-2022 Microscopic observat ion [Identifier] in Cervix by Cyto stain Karen Bolanos MD Work Phone: section TIARRA CALVO Removal of intrauter ine device TIARRA KATZ Plan of Treatment Date Care Activity Detail Author Start: 04-19-2029 Screening for malign ant neoplasm of cervix [facility] Start: 03-19-2025 Screening for malign ant neoplasm of cervix [facility] Start: 11-28-2024 Influenza vaccination Influenz a Vaccine (Season Ended) [facility] Start: 08-23-2024 End: 08-23-2024 Patient encounter procedure 08/23/2024 1:10 PM EDT Routine [facility] [address] [place] [address] Karyna Craig PA [address] [place] [address] [facility] Start: 08-08-2024 End: 08-08-2024 Patient encounter procedure [facility] Comment on above: Arrived Start: 08-08-2024 End: 02-08-2025 US biophysical profile w non stress test US biophysical profile w non stress test Imaging Routine Third trimester 33 weeks gestation of Gestational diabetes mellitus (GDM), antepartum, gestational diabetes method of control unspecified Expected: 08/08/2024 (Approximate), Expires: 02/08/2025 [facility] Work Phone: Comment on above: Expected: [...] AM EDT Routine [facility] [address] [place] [address] Andrea Prieto, DO [address] [place] [address] [facility] Start: 07-11-2024 End: 07-11-2024 Professional / ancillary services management 07/11/2024 10:30 AM EDT Ancillary Procedure [facility] [address] [place] [address] [facility] Start: 07-05-2024 End: 07-05-2024 Patient encounter procedure 07/05/2024 11:00 AM EDT Office Visit [facility] [address] [place] [id number] Andrea Prieto, DO [address] [place] [address] [facility] Start: 06-22-2024 End: 06-22-2025 CBC panel - Blood by Automated count CBC Lab Routine Diabetes mellitus screening Expected: 06/22/2024 (Approximate), Expires: 06/22/2025 [facility] Comment on above: Expected: 06/22/2024 (Approximate), Expires: 06/22/2025 Start: 06-22-2024 End: 06-22-2025 Measurement of glucose 1 hour after glucose challenge for glucose tolerance test Glucose tolerance, 1 hour Lab Routine Diabetes mellitus screening Expected: 06/22/2024 (Approximate), Expires: 06/22/2025 [facility] Comment on above: Expected: 06/22/2024 (Approximate), Expires: 06/22/2025 Start: 06-22-2024 End: 06-22-2025 US for US OB follow up transabdominal approach Imaging Routine size inconsistent with dates Expected: 06/22/2024, Expires: 06/22/2025 [facility] Work Phone: Comment on above: Expected: 06/22/2024 , Expires: 06/22/2025 Start: 06-01-2024 End: 06-01-2024 Patient encounter procedure 06/01/2024 11:00 AM EST Routine Office Visit Maternal Medicine [facility] [address] [place] [address] anatomy Maternal Medicine [facility] Comment on above: anatomy Start: 05-27-2024 End: 05-27-2025 OBSTETRIC ULTRASOUND [facility] OBSTETRIC ULTRASOUND WHI Anc Imaging Routine Encounter for anatomic survey Expected: 05/27/2024, Expires: 05/27/[address] [facility] Work Phone: Comment on above: Expected: 05/27/2024 , Expires: 05/27/2025 Start: 04-19-2024 End: 06-17-2024 Alpha fetoprotein, maternal Alpha fetoprotein, maternal Lab Routine Screening, , for anatomic survey Expected: 04/19/2024 (Approximate), Expires: 06/17/2024 [facility] Comment on above: Expected: 04/19/2024 (Approximate), Expires: 06/17/2024 Start: 04-19-2024 End: 06-17-2025 US Breast - right Right breast US complete Imaging Routine Mass of right breast, unspecified quadrant Neoplasm of unspecified behavior of breast Expected: 04/19/2024, Expires: 06/17/2025 [facility] Comment on above: Expected: 04/19/2024 , Expires: 06/17/2025 Start: 04-19-2024 End: 04-19-2024 Patient encounter procedure 04/19/2024 10:30 AM EST Routine [facility] [address] [place] [address] Andrea Prieto, DO [address] [place] [address] Arrived [facility] Comment on above: Arrived Start: 04-12-2024 End: 04-12-2024 Patient encounter procedure 04/12/2024 11:10 AM EST Routine [facility] [address] [place] [address] Andrea Prieto, DO [address] [place] [address] [facility] Start: 03-11-2024 End: 03-11-2025 ABO/Rh ABO/Rh Lab Routine Missed menses , unspecified gestational age Expected: 03/11/2024 (Approximate), Expires: 03/11/2025 [facility] Comment on above: Expected: 03/11/2024 (Approximate), Expires: 03/11/2025 Start: 03-11-2024 End: 03-11-2025 Blood type and Indirect antibody screen panel - Blood Type and screen Lab Routine Missed menses , unspecified gestational age Expected: 03/11/2024 (Approximate), Expires: 03/11/2025 [facility] Work Phone: Comment on above: Expected: 03/11/2024 (Approximate), Expires: 03/11/2025 Start: 03-11-2024 End: 03-11-2025 Drugs of abuse panel - Urine by Screen method Rapid drug screen, urine Lab Routine , unspecified gestational age Encounter for supervision of normal first in first trimester Expected: 03/11/2024 (Approximate), Expires: 03/11/2025 [facility] Comment on above: Expected: 03/11/2024 (Approximate), Expires: 03/11/2025 Start: 02-09-2024 End: 02-09-2024 Nursing evaluation of patient and report 02/09/2024 10:30 AM EST Nurse Visit [facility] [address] [place] [address] Rej, Nurse Sarmad [facility] [address] [facility] [place] [address] ob scan [facility] Comment on above: ob scan Start: 01-25-2024 End: 01-25-2024 Patient encounter procedure 01/25/2024 9:40 AM EDT Office Visit [facility] OB [address] [place] [address] Andrea Prieto, DO [address] [place] [address] [facility] Start: 01-20-2024 End: 01-19-2025 OBSTETRIC ULTRASOUND WHI OBSTETRIC ULTRASOUND [facility]I Anc Imaging Routine resulting from assisted reproductive technology in first trimester Expected: 01/20/2024, Expires: 01/19/[address] [facility] Work Phone: Comment on above: Expected: 01/20/2024 , Expires: 01/19/2025 Start: 12-28-2023 End: 12-28-2023 Patient encounter procedure 12/28/2023 8:20 AM EDT Office Visit [facility] [address] [place] [address] Karen Bolanos MD [address] [place] [address] Arrived [facility] Comment on above: Arrived Start: 12-05-2023 End: 12-05-2023 Patient encounter procedure [facility] Comment on above: donor thaw IUI-D Start: 11-29-2023 Covid-19 Vaccine ( season) Covid-19 Vaccine ( season) [facility] Start: 11-29-2023 Covid-19 Vaccine () Covid-19 Vaccine () [facility] Start: 11-29-2023 Influenza vaccination Influenza Vacc ine (#1) [facility] Start: 10-12-2023 End: 01-11-2024 Progesterone [Mass/volume] in Serum or Plasma PROGESTERONE Lab Routine Female infertility Expected: 10/12/2023, Expires: 01/11/[address] [facility] Work Phone: Comment on above: Expected: 10/12/2023 , Expires: 01/11/2024 Start: 06-15-2023 End: 09-14-2023 CARRIER SCREEN, EXPANDED CARRIER SCREEN, EXPANDED Lab Routine Encounter for other genetic testing of female for procreative management Expected: 06/15/2023, Expires: 09/14/[address] [facility] Work Phone: Comment on above: Expected: 06/15/2023 , Expires: 09/14/2023 Start: 03-30-2023 Behavioral Health Screening Behavioral Health Screening [facility] Start: 03-30-2023 Depression Assessment Depression Ass essment [facility] Start: 11-28-2022 Covid-19 Vaccine ( season) Covid-19 Vaccine ( season) [facility] Start: 11-28-2022 Influenza vaccination Influenza Vacc ine (#1) [facility] Start: 08-01-2021 Screening for malign ant neoplasm of cervix [facility] Start: 03-18-2018 Screening for malign ant neoplasm of cervix Pap Testing [facility] Start: 03-18-2016 Screening for malign ant neoplasm of cervix Cervical Cancer Screening [facility] Start: 08-01-2009 Anxiety Screening Anxiety Screening [facility] Start: 08-01-2009 Depression Screening Depression Scre ening [facility] Start: 08-01-2009 Hepatitis C screening Hepatitis C Sc reening [facility] Start: 08-01-2009 HIV screening HIV Screening [facility] Start: 01-05-2004 Hepatitis B Vaccine (2 of 3 - 3-dose series) Hepatitis B Vaccine (2 of 3 - 3-dose series) [facility] Start: 08-01-2002 Urine microalbumin profile DTaP,Tdap,Td Vaccine (5 - Tdap) [facility] Bacteria identified in Urine by Culture Urine culture Microbiology Routine Missed menses Ordered: 03/11/2024 [facility] Comment on above: Ordered: 03/11/2024 CBC W Auto Different ial panel - Blood CBC and differential Lab Routine Missed menses , unspecified gestational age Ordered: 03/11/2024 [facility] Comment on above: Ordered: 03/11/2024 CHLAMYDIA TRACHOMATI S (GENITO/STI) CHLAMYDIA TRACHOMATIS (GENITO/STI) Lab Routine Vaginal discharge STD exposure Ordered: 04/19/2024 [facility] Comment on above: Ordered: 04/19/2024 End: 01-17-2025 Choriogonadotropin.beta subunit [Units/volume] in Serum or Plasma HCG QUANTITATIVE Lab Routine Encounter for test, result positive 2x per week for 2 Occurrences starting 01/18/2024 until 01/17/[address] [facility] Work Phone: Comment on above: 2x per week for 2 Oc currences starting 01/18/2024 until 01/17/2025 Cytology Cervical or vaginal smear or scraping study Pap Smear Pathology and Cytology Routine Well woman exam with routine gynecological exam Ordered: 04/19/2024 [facility] Work Phone: Comment on above: Ordered: 04/19/2024 Hemoglobin A1c/Hemoglobin.total in Blood Hemoglobin A1c Lab Routine Missed menses , unspecified gestational age Ordered: 03/11/2024 [facility] Comment on above: Ordered: 03/11/2024 Hepatitis B virus surface Ag [Presence] in Serum or Plasma by Immunoassay Hepatitis B surface antigen Lab Routine Missed menses , unspecified gestational age Ordered: 03/11/2024 [facility] Comment on above: Ordered: 03/11/2024 Hepatitis C virus Ab [Presence] in Serum or Plasma by Immunoassay Hepatitis C antibody Lab Routine Missed menses , unspecified gestational age Ordered: 03/11/2024 [facility] Comment on above: Ordered: 03/11/2024 HIV-1/HIV-2 antigen/antibody combination immunoassay HIV-1 and HIV-2 antibodies Lab Routine Missed menses , unspecified gestational age Ordered: 03/11/2024 [facility] Comment on above: Ordered: 03/11/2024 Human papilloma viru s DNA [Presence] in Unspecified specimen by Probe with amplification HPV DNA probe, amplified Microbiology Routine Well woman exam with routine gynecological exam Ordered: 04/19/2024 [facility] Comment on above: Ordered: 04/19/2024 Neisseria gonorrhoea e DNA [Presence] in Unspecified specimen by PENNY with probe detection Neisseria gonorrhea DNA probe, direct Lab Routine Vaginal discharge STD exposure Ordered: 04/19/2024 [facility] Comment on above: Ordered: 04/19/2024 Reagin Ab [Presence] in Serum by RPR RPR Lab Routine Missed menses , unspecified gestational age Ordered: 03/11/2024 [facility] Comment on above: Ordered: 03/11/2024 Rubella antibody, IgG Rubella an tibody, IgG Lab Routine Missed menses , unspecified gestational age Ordered: 03/11/2024 [facility] Comment on above: Ordered: 03/11/2024 SURESWAB(R) ADVANCED VAGINITIS PLUS, TMA SURESWAB(R) ADVANCED VAGINITIS PLUS, TMA Pathology and Cytology Routine Vaginal discharge STD exposure Ordered: 04/19/2024 [facility] Comment on above: Ordered: 04/19/2024 Immunizations Immunization Date Immunization Notes Care Provider Marcos [facility] 09-13-2023 measles, mumps and rubella virus vaccine Karen Bolanos MD Work Phone: [facility] 06-15-2023 influenza, injectable, quadrivalent, contains preservative Karen Bolanos MD Work Phone: [facility] 06-15-2023 influenza virus vaccine, unspecified formulation Andressa Anayaangie UPTON Work Phone: [facility] 08-17-2020 SARS-CoV-2 (COVID-19 ) mRNA-1273 vaccine SALIX MADALYN [facility] 07-20-2020 SARS-CoV-2 (COVID-19 ) mRNA-1273 [facility] 12-10-2016 influenza virus vaccine, unspecified formulation TIARRA KATZ [facility] 12-10-2016 influenza, injectable, quadrivalent, preservative free Karen Bolanos MD Work Phone: [facility] 02-16-2009 novel [id number], preservative-free, injectable Karen Bolanos MD Work Phone: [facility] 12-08-2003 hepatitis B vaccine, pediatric or pediatric/adolescent dosage [facility] 12-08-2003 measles, mumps and rubella virus vaccine [facility] 12-08-2003 tetanus toxoid, adsorbed Karen Bolanos MD Work Phone: [facility] 10-27-1996 measles, mumps and rubella virus vaccine [facility] 02-08-1993 diphtheria, tetanus toxoids and acellular pertussis vaccine Karen Bolanos MD Work Phone: [facility] 02-08-1993 diphtheria, tetanus toxoids and acellular pertussis vaccine, unspecified formulation Karen Bolanos MD Work Phone: [facility] 02-08-1993 DTaP, unspecified formulation [facility] 02-08-1993 haemophilus influenzae type b vaccine, conjugate unspecified formulation Karen Bolanos MD Work Phone: [facility] 02-08-1993 haemophilus influenzae type b vaccine, HbOC conjugate Karen Bolanos MD Work Phone: [facility] 02-08-1993 Hib, unspecified formulation [facility] 02-08-1993 poliovirus vaccine, unspecified formulation Karen Bolanos MD Work Phone: [facility] 02-07-1992 diphtheria, tetanus toxoids and acellular pertussis vaccine Karen Bolanos MD Work Phone: [facility] 02-07-1992 diphtheria, tetanus toxoids and acellular pertussis vaccine, unspecified formulation Karen Bolanos MD Work Phone: [facility] 02-07-1992 DTaP, unspecified formulation TIARRA KATZ [facility] 02-07-1992 haemophilus influenzae type b vaccine, conjugate unspecified formulation Karen Bolanos MD Work Phone: [facility] 02-07-1992 haemophilus influenzae type b vaccine, HbOC conjugate Karen Bolanos MD Work Phone: [facility] 02-07-1992 Hib, unspecified formulation [facility] 1991 diphtheria, tetanus toxoids and acellular pertussis vaccine Karen Bolanos MD Work Phone: [facility] 1991 diphtheria, tetanus toxoids and acellular pertussis vaccine, unspecified formulation Karen Bolanos MD Work Phone: [facility] 1991 DTaP, unspecified formulation [facility] 1991 haemophilus influenzae type b vaccine, conjugate unspecified formulation Karen Bolanos MD Work Phone: [facility] 1991 haemophilus influenzae type b vaccine, HbOC conjugate Karen Bolanos MD Work Phone: [facility] 1991 Hib, unspecified formulation [facility] 1991 poliovirus vaccine, unspecified formulation Karen Bolanos MD Work Phone: [facility] 1991 diphtheria, tetanus toxoids and acellular pertussis vaccine Karen Bolanos MD Work Phone: [facility] 1991 diphtheria, tetanus toxoids and acellular pertussis vaccine, unspecified formulation Karen Bolanos MD Work Phone: [facility] 1991 DTaP, unspecified formulation TIARRA MADALYN [facility] 1991 haemophilus influenzae type b vaccine, conjugate unspecified formulation Karen Bolanos MD Work Phone: [facility] 1991 haemophilus influenzae type b vaccine, HbOC conjugate Karen Bolanos MD Work Phone: [facility] 1991 Hib, unspecified formulation TIARRA KATZ [facility] 1991 poliovirus vaccine, unspecified formulation Karen Bolanos MD Work Phone: [facility] NEGATED: Highlighted row has not occurred!03-16-2023 influenza virus vaccine, unspecified formulation TIARRA MADALYN [facility] Payers Date Payer Category Payer Unknown [id number] 2022 [facility] 1.2.8 [id number] 2022 Unknown 2022 Unknown [id number] 1991 Unknown [id number] 2.16.84 [id number] 1991 Unknown [id number] 2.16.8 [id number] 1991 Unknown [id number] 2.16.8 [id number] 1991 Unknown [id number] 2.16.8 [id number] 1991 Unknown [id number] 2.16.84 [id number] 1991 Unknown [id number] 2.16.84 [id number] 1991 Unknown [id number] 2.16.84 [id number] 1991 Unknown [id number] 2.16.84 [id number] 1991 Unknown [id number] 2.16.84 [id number] 1991 Unknown [id number] 2.16.84 [id number] 1991 Unknown [id number] 2.16.84 [id number] 1991 Unknown [id number] 2.16.84 [id number] 1991 Unknown [id number] 2.16.84 [id number] 1959 Unknown [id number] Unknown [id number] Social History Date Type Detail Facility [facility] Tobacco smoking consumption unknown [facility] Start: 11-11-2022 End: 03-16-2023 Tobacco smoking status Never smoked tobacco (finding) [facility] Tobacco smoking status Never [facility] Start: 06-08-2023 End: 12-28-2023 Sex Assigned At Female [facility] Start: 04-12-2012 End: 11-11-2022 Tobacco use and exposure Smokeless tobacco non-user [facility] Start: 06-08-2023 End: 08-08-2024 Alcohol intake Current drinker of alcohol (finding) [facility] Start: 06-08-2023 End: 12-28-2023 History of Social function [facility] Start: 04-12-2012 Alcohol Comment social [facility] Start: 1991 Sex Assigned At Not on file [facility] Start: 1991 Sex Assigned At Female [facility] Start: 06-11-2022 Gender identity Identifies as female gender (finding) [facility] Start: 01-12-2023 Sexual orientation Homosexual (findi ng) [facility] Start: 11-10-2022 Alcohol Comment 1-2 drinks les s than monthly in the past year, Caffeine intake: 1-2 cups per day [facility] Start: 01-02-2024 [facility] Procedure Code Equipment Code Equipment Origin al Text Equipment Identifier Dates 1 strip by In Vi tro route Daily Use in the morning prior to breakfast, 1 hour after each meal for a total of 4times daily. [id number] Start: 07-12-2024 End: 08-11-2024 1 each by In Vit ro route Daily Use to check FSBS four times daily [id number] Start: 07-12-2024 End: 08-11-2024 Goals Date Patient Goal Desired Activity /State Personal health goal Functional Status Date Assessment Result Facility 02-28-2024 Functional Status N/A [facility] 03-16-2023 Functional Status N/A [facility] Clinical Notes 03-16-2023 to [...] episode of recurrent major depressive disorder (HCC) ([facility]/HCC) 12/28/2023 Restless leg 12/28/2023 Resolved Ambulatory [...] nursing note reviewed. Exam conducted with a manager of software development present. Vitals: Estimated body mass index is [...] changes & patient will send results for Concession Manager next Thursday. Patient is also to start NST/BPP. Order will be sent to TB FB anf TB Scheduling. Patient given handout as well. Patient to have sugars monitored locally and is going to cancel upcoming appointment with [facility] telemedicine. Orders Placed This Encounter Procedures POCT urinalysis dipstick manually resulted Follow Up: Patient is to return to office in 3 week for routine OB appointment. Documented by Liane Manzano LPN on behalf of: Andrea Prieto DO documented in this encounter [facility] 07-25-2024 History of Presen t illness Narrative [...] episode of recurrent major depressive disorder (HCC) ([facility]/HCC) 12/28/2023 Restless leg 12/28/2023 Resolved Ambulatory [...] nursing note reviewed. Exam conducted with a manager of software development present. Vitals: Estimated body mass index is [...] Patient has completed level 2 Ultrasound at [facility] but has not yet met with M. She is going to call them to [...] Dina Gerard NP documented in this encounter [facility] 07-20-2024 Telephone encounter Note Received outside referral from Dr. Prieto for GDM consult due to elevated 1 hour glucose 202. Called pt. To schedule appointment no answer, left message with call back phone number. Jessy Lilly RN [facility] 07-20-2024 Miscellaneous Notes Received outside referral from Dr. Prieto for GDM consult due to elevated 1 hour glucose 202. Called pt. To schedule appointment no answer, left message with call back phone number. Jessy Lilly RN documented in this encounter [facility] 07-11-2024 History of Presen t illness [...] episode of recurrent major depressive disorder (HCC) ([facility]/HCC) 12/28/2023 Restless leg 12/28/2023 Resolved Ambulatory [...] nursing note reviewed. Exam conducted with a manager of software development present. Vitals: Estimated body mass index is [...] Diabetic and referral will be done to [facility] for Diabetic management. Patient aware that supplies will be sent to pharmacy to take with her to referral appointment. Documented by Liane Manzano LPN on behalf of: Andrea Prieto DO documented in this encounter [facility] 06-22-2024 History of Presen t illness Narrative [...] HISTORY Past Medical History: Diagnosis Date Asthma (CMS/HCC) [...] by KAMARI Zavala documented in this encounter [facility] 06-01-2024 Note HNO ID: [id number] Author: LEONID MYERS MD Service: ? Author Type: Physician Type: Progress Notes Filed: 06/01/2024 15:07 Note Text: Please see ultrasound report for details of this visit. Leonid Myers M.D. [facility] 06-01-2024 History of Presen t illness Narrative Please see ultrasound report for details of this visit. Leonid Myers M.D. documented in this encounter [facility] 04-19-2024 History of Presen t illness [...] HISTORY Past Medical History: Diagnosis Date Asthma (CMS/HCC) [...] nursing note reviewed. Exam conducted with a manager of software development present. Vitals: Estimated body mass index is [...] to be obtained. Pt being referred to [facility] for level II ultrasound for IVF [...] Andrea Prieto DO documented in this encounter [facility] 03-11-2024 History of Presen t illness Narrative [...] episode of recurrent major depressive disorder (HCC) ([facility]) 12/28/2023 Restless leg 12/28/2023 Resolved Ambulatory Problems Diagnosis Date Noted No Resolved Ambulatory Problems Past Medical History: Diagnosis Date Asthma ([facility]) BMI 28.0-28.9,adult Depression screening GERD (gastroesophageal reflux [...] or undercooked meat, and stay away from [facility]. Patient has also been advised to not [...] Jacqui Ferguson LPN documented in this encounter [facility] 02-28-2024 Hospital Discharg e instructions Patient [...] Centers for Disease Control and Prevention: cdc.gov [employer]: heart.org National Heart, Lung, and Blood [place]: nhlbi.nih.gov This information is not intended to replace advice given to you by your health care provider. Make sure you discuss any questions you have with your health care provider. Document Revised: 12/04/2022 Document Reviewed: 11/27/2022 [employer] Patient Education 2023 [employer] 02/28/2024 09:57:52 Otitis Media, Adult, Jjkj-eb-Nnry Otitis Media, Adult Otitis media is a [...] pain. Follow these instructions at home: Take veyn-wln-eakcxdi and prescription medicines only as told by [...] provider. Document Revised: 06/24/2021 Document Reviewed: 06/24/2021 [employer] Patient Education 2023 [employer]. Follow Up Care 02/28/2024 08:48:51 With:Karen Bolanos MD Address: [place] [place] [address]- When: Unknown [facility] 02-28-2024 Note Patient Education [...] Follow these instructions at home: ??? Take dxiv-acw-yxlmdfo and prescription medicines only as told by [...] provider. Document Revised: 06/24/2021 Document Reviewed: 06/24/2021 [employer] Patient Education ? 2023 [employer] Nutrition BMI for Adults Body mass [...] (Inserted Image. Un (more content not included)... [facility] 02-09-2024 Note HNO ID: [id number] Author: VIDHYA PITT APRN.VARNISH MAKER Service: ? Author Type: Nurse Practitioner Type: [...] Plan Move on to OB Vidhya Pitt APRN.VARNISH MAKER February 09, 2024 12:27 PM [facility] 02-09-2024 History of Presen t illness Narrative [...] Parth Clark MD documented in this encounter [facility] 02-09-2024 Note HNO ID: [id number] Author: PARTH CLARK MD Service: ? Author Type: Physician Type: Progress Notes Filed: 02/09/2024 11:28 Note Text: Scan Visit Patient here for scan. See imaging documentation. Parth Clark MD [facility] 01-20-2024 Note HNO ID: [id number] Author: ANDRESSA ABRAHAM APRN.CNP Service: ? Author [...] visit. Either the patient or their legal inside sales account representative has been informed of the risks [...] with OB: 02/14 or 02/21 Andressa Abraham APRN.VARNISH MAKER January 20, 2024 9:03 AM Please schedule the patient for the following- Location: [place] Provider: nurse Visit type: scan Reason for visit/appointment notes: scan Date: 02/08 Time (requested): 1030 If slot is full, please schedule the closest open slot. Call to patient needed: no I spent a total of 30 minutes on the date of the service which included preparing to see the patient, qrdf-bn-xbor patient care, completing clinical documentation, obtaining and/or [...] grammatical and typographical errors missed in proofreading. [facility] 01-20-2024 History of Presen t illness Narrative [...] visit. Either the patient or their legal inside sales account representative has been informed of the risks [...] with OB: 02/14 or 02/21 Andressa Abraham APRN.VARNISH MAKER January 20, 2024 9:03 AM Please schedule [...] which included preparing to see the patient, cyzs-rg-josn patient care, completing clinical documentation, obtaining and/or [...] missed in proofreading. documented in this encounter [facility] 01-18-2024 Telephone encounter Note Patient calls [...] Yoo PA-C January 18, 2024 4:02 PM [facility] 01-18-2024 Miscellaneous Notes Patient calls with [...] regarding next steps. documented in this encounter [facility] 01-18-2024 Telephone encounter Note Please call patient back regarding next steps. [facility] Work Phone: 01-02-2024 Note HNO ID: [id number] Author: FLAVIA ELIZONDO, ? Service: ? Author Type: Client Engagement Specialist Type: Progress Notes Filed: 01/02/2024 11:47 Note Text: Thaw for IUI Flavia Elizondo [facility] 01-02-2024 History of Presen t illness Narrative Thaw for IUI Flavia Elizondo documented in this encounter [facility] 01-02-2024 Note HNO ID: [id number] Author: FLAVIA ELIZONDO, ? Service: ? Author Type: Client Engagement Specialist Type: Progress Notes Filed: 01/02/2024 11:46 Note Text: IUI Xytex #: [id number] Washed frozen specimen Post: 122 m/ml, 63% Insem#: 34.7 million [facility] 01-02-2024 History of Presen t illness Narrative IUI Xytex #: [id number] Washed frozen specimen Post: 122 m/ml, 63% Insem#: 34.7 million IUI specimen released to provider Flavia Elizondo January 02, 2024 11:23 AM documented in this encounter [facility] 01-02-2024 Note HNO ID: [id number] Author: ANYI GANT MD Service: ? Author [...] Cycle Day: 15 Last menstrual period: 12/19/2023 [place] Protocol: UNIVERSAL PROTOCOL / SAFETY CHECKLIST Procedure [...] discussed with the Patient or Patient's Authorized Ehs Manager. As applicable, any other physician, advance practice provider, medical student, or other health professional student that will be observing or involved in the sensitive examination for educational or training purposes was discussed with the Patient or Authorized Ehs Manager. The Patient or Authorized Ehs Manager has agreed to proceed with the sensitive examination. (Sensitive examination includes inspection and/or palpation of the breasts, pelvis, prostate and anorectal regions) Patient declined manager of software development. IUI IUI Date: 01/02/24 Partner's Name: Wanda [...] Anyi Gant M.D. Reproductive Endocrinology and Infertility [facility] 01-02-2024 Procedure note WHI SARMAD IUI PROCEDURE NOTE Date: 01/02/2024 Primary Proceduralist: Uma Aguilera MD Consents and Labels Consent Signed: Informed Consent obtained and on the chart Labels Verified With Patient: Yes Indications: Nelli Carpenter, is a 33 year old female here today for intrauterine insemination. IUI # 2. Cycle Day: 15 Last menstrual period: 12/19/2023 [place] Protocol: UNIVERSAL PROTOCOL / SAFETY CHECKLIST Procedure [...] discussed with the Patient or Patient's Authorized Ehs Manager. As applicable, any other physician, advance practice provider, medical student, or other health professional student that will be observing or involved in the sensitive examination for educational or training purposes was discussed with the Patient or Authorized Ehs Manager. The Patient or Authorized Ehs Manager has agreed to proceed with the sensitive examination. (Sensitive examination includes inspection and/or palpation of the breasts, pelvis, prostate and anorectal regions) Patient declined manager of software development. IUI IUI Date: 01/02/24 Partner's Name: Wanda [...] Anyi Gant M.D. Reproductive Endocrinology and Infertility [facility] Work Phone: 01-02-2024 Procedure note WHI SARMAD IUI PROCEDURE NOTE Date: 01/02/2024 Primary Proceduralist: Uma Aguilera MD Consents and Labels Consent Signed: Informed Consent obtained and on the chart Labels Verified With Patient: Yes Indications: Nelli Carpenter, is a 33 year old female here today for intrauterine insemination. IUI # 2. Cycle Day: 15 Last menstrual period: 12/19/2023 [place] Protocol: UNIVERSAL PROTOCOL / SAFETY CHECKLIST Procedure [...] discussed with the Patient or Patient's Authorized Ehs Manager. As applicable, any other physician, advance practice provider, medical student, or other health professional student that will be observing or involved in the sensitive examination for educational or training purposes was discussed with the Patient or Authorized Ehs Manager. The Patient or Authorized Ehs Manager has agreed to proceed with the sensitive examination. (Sensitive examination includes inspection and/or palpation of the breasts, pelvis, prostate and anorectal regions) Patient declined manager of software development. IUI IUI Date: 01/02/24 Partner's Name: Wanda [...] Endocrinology and Infertility documented in this encounter [facility] 01-02-2024 Note HNO ID: [id number] Author: FLAVIA ELIZONDO, ? Service: ? Author Type: Client Engagement Specialist Type: Progress Notes Filed: 01/02/2024 11:46 Note Text: IUI specimen released to provider Flavia Elizondo January 02, 2024 11:23 AM [facility] 12-28-2023 History of Presen t illness Narrative [...] to monitor weight documented in this encounter [facility] 12-05-2023 Note HNO ID: [id number] Author: STEPHANIE LARA, ? Service: ? Author Type: ? Type: Progress Notes Filed: 12/06/2023 08:45 Note Text: IUI Xytex #[id number] Frozen washed specimen Post: 145 Million/mL, 68% Insem #: 49 Million [facility] 12-05-2023 History of Presen t illness Narrative IUI Xytex #[id number] Frozen washed specimen Post: 145 Million/mL, 68% Insem #: 49 Million IUI specimen released to provider Stephanie Lara December 05, 2023 10:19 AM documented in this encounter [facility] 12-05-2023 Note HNO ID: [id number] Author: MYRIAM DOMINGUEZ MD Service: ? Author [...] Cycle Day: 15 Last menstrual period: 11/21/2023 [place] Protocol: UNIVERSAL PROTOCOL / SAFETY CHECKLIST Procedure [...] EMERGENT procedures): No specimen collected. Patient declined manager of software development. Uma Aguilera MD IUI IUI Date: 12/05/23 [...] after wash): 49 million Donor ID #: [id number] Cycle reviewed, all questions answered. Pt instructed to take a test in 17 days if no menses and call with results. SIGNATURE: Uma Aguilera MD PATIENT NAME: Nelli Carpenter DATE: December 05, 2023 TIME: 10:31 AM I was present and immediately available for the entire procedure. Patient underwent an intrauterine insemination. Myriam Dominguez MD, TRUDY [facility] 12-05-2023 Procedure note WHI SARMAD IUI PROCEDURE NOTE Date: 12/05/2023 Primary Proceduralist: Uma Aguilera MD Consents and Labels Consent Signed: Informed Consent obtained and on the chart Labels Verified With Patient: Yes Indications: Nelli Carpenter, is a 33 year old female here today for intrauterine insemination. IUI # 1. Cycle Day: 15 Last menstrual period: 11/21/2023 [place] Protocol: UNIVERSAL PROTOCOL / SAFETY CHECKLIST Procedure [...] EMERGENT procedures): No specimen collected. Patient declined manager of software development. Uma Aguilera MD IUI IUI Date: 12/05/23 [...] after wash): 49 million Donor ID #: [id number] Cycle reviewed, all questions answered. Pt instructed to take a test in 17 days if no menses and call with results. SIGNATURE: Uma Aguilera MD PATIENT NAME: Nelli Carpenter DATE: December 05, 2023 TIME: 10:31 AM I was present and immediately available for the entire procedure. Patient underwent an intrauterine insemination. Myriam Dominguez MD, TRUDY [facility] Work Phone: 12-05-2023 Procedure note I SARMAD IUI PROCEDURE NOTE Date: 12/05/2023 Primary Proceduralist: Uma Aguilera MD Consents and Labels Consent Signed: Informed Consent obtained and on the chart Labels Verified With Patient: Yes Indications: Nelli Carpenter, is a 33 year old female here today for intrauterine insemination. IUI # 1. Cycle Day: 15 Last menstrual period: 11/21/2023 [place] Protocol: UNIVERSAL PROTOCOL / SAFETY CHECKLIST Procedure [...] EMERGENT procedures): No specimen collected. Patient declined manager of software development. Uma Aguilera MD IUI IUI Date: 12/05/23 [...] after wash): 49 million Donor ID #: [id number] Cycle reviewed, all questions answered. Pt instructed to take a test in 17 days if no menses and call with results. SIGNATURE: Uma Aguilera MD PATIENT NAME: Nelli Carpenter DATE: December 05, 2023 TIME: 10:31 AM I was present and immediately available for the entire procedure. Patient underwent an intrauterine insemination. Myriam Dominguez MD, TRUDY documented in this encounter [facility] 12-05-2023 History of Presen t illness Narrative Thaw for IUI Stephanie Lara documented in this encounter [facility] 12-05-2023 Note HNO ID: [id number] Author: STEPHANIE LARA, ? Service: ? Author Type: ? Type: Progress Notes Filed: 12/05/2023 10:23 Note Text: Thaw for IUI Stephanie Lara [facility] 12-05-2023 Note HNO ID: [id number] Author: STEPHANIE LARA, ? Service: ? Author Type: ? 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 Tubal Patency Testing: defer for now Sperm Source:Donor Frozen Treatment Protocol: Natural Cycle Monitoring Plan: OPKs Ovidrel Trigger: No Supplemental Progesterone: None Comments: None Andressa Abraham APRN.CNP 11/23/2023 documented in this encounter [facility] 11-23-2023 Instructions Andressa Abraham APRN.CNP - [...] day of your period and let the assistant front desk manager know you will be doing donor sperm [...] of your menstrual cycle to let the assistant front desk manager know you will be testing and doing [...] please call the office to discuss. Location [facility] [id number] [place] [address], [facility] [address] [facility], [place] [address] Available every day, including weekends and holidays (except [place] and New Years.) Weekday IUI scheduling The day you get your LH surge, please call [phone] between 8:00am - 12:00pm to schedule your insemination for the next day. If you call after 12pm, we may not be able to schedule your appointment. IUI s are done by appointment only. You will make 2 appointments - an arrival time and an IUI time. Donor sperm IUI is available at the following location: [place]: [id number] [place] [address], [address] [place] [address] Available every day, including weekends and holidays (except [place] and New Years.) Available for IUI using [...] want to do another IUI: Call the assistant front desk manager to make sure you are financially cleared. Ask to speak to an NELLY to confirm your treatment plan. Important phone number: [phone] documented in this encounter [facility] 11-23-2023 Note HNO ID: [id number] Author: ANDRESSA ABRAHAM APRN.CNP Service: ? Author [...] visit. Either the patient or their legal inside sales account representative has been informed of the risks and benefits of -- and alternatives to -- treatment through a remote evaluation and consents to proceed with the evaluation remotely. Reason for visit: treatment planning STEPHANIE Aiken is a donor sperm patient. Donor sperm checklist is complete, donor has been selected and shipped. LMP 11/20 LMP 10/24, +OPK 11/06 LMP: 09/26, +OPK 10/09, Latest Ref Rng 10/16/2023 Progesterone See comment ng/mL 7.4 Encounter Diagnosis ICD-10-CM 1. Reproductive mgmt, infertility due to male factor Z31.81 N97.8 She is able to case picker OPK every cycle, luteal phase is appropriate. Reviewed IUI scheduling and IUI procedure. Plan: natural cycle IUI-D timed with OPK. Sign IUI consent at earliest convenience. Andressa Abraham APRN.VARNISH MAKER November 23, 2023 9:09 AM I spent a total of 25 minutes on the date of the service which included preparing to see the patient, uevq-fi-qkyy patient care, completing clinical documentation, obtaining and/or [...] grammatical and typographical errors missed in proofreading. [facility] 11-23-2023 History of Presen t illness Narrative [...] visit. Either the patient or their legal inside sales account representative has been informed of the risks and benefits of -- and alternatives to -- treatment through a remote evaluation and consents to proceed with the evaluation remotely. Reason for visit: treatment planning STEPHANIE Aiken is a donor sperm patient. Donor sperm checklist is complete, donor has been selected and shipped. LMP 11/20 LMP 10/24, +OPK 11/06 LMP: 09/26, +OPK 10/09, Latest Ref Rng 10/16/2023 Progesterone See comment ng/mL 7.4 Encounter Diagnosis ICD-10-CM 1. Reproductive mgmt, infertility due to male factor Z31.81 N97.8 She is able to case picker OPK every cycle, luteal phase is appropriate. Reviewed IUI scheduling and IUI procedure. Plan: natural cycle IUI-D timed with OPK. Sign IUI consent at earliest convenience. Andressa Abraham APRN.CNP November 23, 2023 9:09 AM I spent a total of 25 minutes on the date of the service which included preparing to see the patient, mkcu-iy-ekcs patient care, completing clinical documentation, obtaining and/or [...] missed in proofreading. documented in this encounter [facility] 10-12-2023 Telephone encounter Note Called the patient she verified her name and date of patient is doing practice cycle Patient had peak on her opk 10-10-23 last period 09-27-23 Needs progesterone order I advised she goes in 6-8 days from positive opk not on fertility meds Laura Roque RN October 12, 2023 12:54 PM [facility] 10-12-2023 Miscellaneous Notes Called the patient [...] up with Wanda. documented in this encounter [facility] 10-12-2023 Telephone encounter Note Partner Wanda calling re +ov need to schedule progesterone test for Nelli when to have it done. Please follow up with Wanda. [facility] Work Phone: 09-11-2023 Instructions Andressa Abraham APRN.VARNISH MAKER - 09/11/2023 8:20 AM EDT REPRODUCTIVE ENDOCRINOLOGY [...] sample yourself and arranging for shipment to [facility]. Sperm Bank [facility] [place] [facility] ([place]) [facility] [employer] ([facility]) [place] [facility] Let us know the sperm [...] (with a backup), please send me a [employer] message titled Sperm Donor Choice. Include the [...] the office. Mailing address: Attention: Flavia Elizondo [address] [place] [address], [address] [place] [address] Storage at the [facility] is available. Fees are yearly and only start once you are not actively trying. Please ask the financial team ([phone]) for current cost information. Insurance Authorization/Financial Clearance [...] day of your period and let the assistant front desk manager know you will be doing donor sperm insemination. The financial office will contact you to collect payment early in your cycle. You will not be able to schedule an IUI unless you have made payment. We want to help make your experience as smooth as possible. Please do not hesitate to call if you should have any questions. Contact documented in this encounter [facility] 09-11-2023 Note HNO ID: [id number] Author: ANDRESSA ABRAHAM APRN.LEXUS Service: ? Author [...] 12 - 26 day long cycle LMP 6 Treatment plan: pending - likely natural cycle/IUI. [...] favorite donors - send to me via [employer] to confirm Confirmed best vial type to order: IUI/prewashed Will need to follow up to firm up treatment plan and review IUI scheduling instructions. Andressa Abraham APRN.VARNISH MAKER September 11, 2023 8:08 AM I spent a total of 50 minutes on the date of the service which included preparing to see the patient, puvn-tz-frvj patient care, completing clinical documentation, obtaining and/or [...] may be gramma (more content not included)... [facility] 09-11-2023 History of Presen t illness Narrative [...] 12 - 26 day long cycle LMP 6 Treatment plan: pending - likely natural cycle/IUI. [...] favorite donors - send to me via [employer] to confirm Confirmed best vial type to order: IUI/prewashed Will need to follow up to firm up treatment plan and review IUI scheduling instructions. Andressa Abraham APRN.CNP September 11, 2023 8:08 AM I spent a total of 50 minutes on the date of the service which included preparing to see the patient, ebun-ep-qqhn patient care, completing clinical documentation, obtaining and/or [...] missed in proofreading. documented in this encounter [facility] 07-28-2023 Telephone encounter Note Nelli's labs [...] follow up once checklist is complete. sent [employer] message. Andressa Abraham APRN.CNP July 28, 2023 12:27 PM [facility] 07-28-2023 Miscellaneous Notes Nelli's labs are [...] follow up once checklist is complete. sent [employer] message. Andressa Abraham APRN.CNP July 28, 2023 12:27 PM Please follow up with patient completed bloodwork today, next steps after labwork. documented in this encounter [facility] 07-28-2023 Telephone encounter Note Please follow up with patient completed bloodwork today, next steps after labwork. [facility] Work Phone: 06-15-2023 History of Presen [...] and birthday verified: Yes Location of patient: [place] Persons Present: patient and patient's spouse/significant other I have communicated my name and active licensure. The patient's identity and physical location were verified at the time of this visit. Either the patient or their legal inside sales account representative has been informed of the risks [...] in 2016 and a section in 2017 [facility] with. The was because of placenta previa [...] test results and next steps. Andressa Abraham APRN.VARNISH MAKER June 15, 2023 4:06 PM I spent a total of 40 minutes on the date of the service which included preparing to see the patient, ltcu-im-bcic patient care, completing clinical documentation, obtaining and/or [...] missed in proofreading. documented in this encounter [facility] 06-08-2023 Instructions Rahul Zheng MD - 06/08/2023 10:26 AM EDT Images from the original note were not included. Obstetrics and Gynecology [facility] Intrauterine Insemination Scheduling Instructions Please [...] you get your LH surge, please call [phone] between 8:00am - 12:00pm to schedule your insemination for the next day. If you call after 12pm, we may not be able to schedule your appointment. IUI s are done by appointment only. You will make 2 appointments - one for sperm drop off/collection, and one for the insemination. If you are using a frozen sample, please tell the bail bonding agent this. You will get an arrival time and an IUI time. IUI is available at the following locations: [place]: [address] [facility], [place] [address] Weekday availability is limited depending on staffing. Not available on weekends. Not available for those with frozen sperm. Check in location for sperm wash and IUI: 2nd floor, room 208. The sperm wash takes 60-90 minutes. [place]: [address] [facility], [place] [address] Weekday availability is limited depending on staffing. Not available on weekends. Not available for those with frozen sperm. Check in location for sperm wash: the 2nd floor Urology/Andrology. The sperm wash takes 60-90 minutes. They will tell you what time to case picker the sample. Check in location for IUI: 3rd floor OB Specialties Desk. (You will have to case picker the sample from 2nd floor Urology and bring it with you.) [place]: [address] [facility], [address] [place] [address] Available every day, including weekends and holidays (except [place] and New Years.) Available for IUI using fresh and frozen samples. Check in location for sperm wash and IUI: [address] [facility]. The sperm wash takes 60-90 [...] want to do another IUI: Call the assistant front desk manager to make sure you are financially cleared. Ask to speak to an NELLY to confirm your treatment plan. Important phone number: [phone] documented in this encounter [facility] 06-08-2023 History of Presen t illness [...] visit. Either the patient or their legal inside sales account representative has been informed of the risks [...] in 2016 and a section in 2017 [facility] area with. The was because of placenta previa at 37 weeks. She had no postoperative complications. After her delivery she had an IUD which had to be removed by hysteroscopy. She is otherwise healthy except for abnormal weight gain for which she has been prescribed Wegovy. She is a non-smoker. 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 documented in this encounter [facility] 03-16-2023 Hospital Discharg e instructions Patient Education 03/16/2023 16:12:49 Wrist Pain, Adult, Qjva-qe-Eebn Wrist Pain, Adult There are many things [...] to any changes in your symptoms. Take cncp-hav-aoqwmmo and prescription medicines only as told by [...] provider. Document Revised: 02/02/2020 Document Reviewed: 02/02/2020 [employer] Patient Education 2022 [employer] [facility] Evaluation + Plan note No data available for this section [facility] Evaluation note Diagnosis Procreative management counseling- Primary Other procreative management counseling and advice BMI 34.0-34.9,adult Body Mass Index 34.0-34.9, adult documented in this encounter [facility] note* Diagnosis Encounter for fertility planning- Primary Other specified procreative management Encounter for other genetic testing of female for procreative management documented in this encounter [facility] note* Diagnosis Treatment plan provided- Primary documented in this encounter [facility] note* Diagnosis Encounter for fertility planning- Primary Other specified procreative management documented in this encounter [facility] note* Diagnosis Procreation management investigation and testing- Primary Other investigation and testing for procreative management documented in this encounter [facility] note* Diagnosis Female infertility- Primary Female infertility of unspecified origin documented in this encounter [facility] note* Diagnosis Reproductive mgmt, infertility due to male factor- Primary Female infertility of other specified origin documented in this encounter [facility] note* Diagnosis Procreative management- Primary Unspecified procreative management documented in this encounter [facility] note* Diagnosis Female infertility- Primary Female infertility of unspecified origin documented in this encounter [facility] note* Diagnosis Encounter for artificial insemination- Primary Artificial insemination documented in this encounter [facility] note* Diagnosis Encounter for test, result positive- Primary examination or test, positive result documented in this encounter [facility] note* Diagnosis resulting from assisted reproductive technology in first trimester- Primary documented in this encounter [facility] note* Diagnosis resulting from assisted reproductive technology in first trimester documented in this encounter [facility] note* Diagnosis Treatment plan provided- Primary documented in this encounter [facility] note* Diagnosis Missed menses , unspecified gestational age Encounter for supervision of normal first in first trimester [facility] Infertility, female- Primary BMI 37.0-37.9, adult Morbid obesity (CMS/HCC) Morbid obesity documented in this encounter [facility]* Diagnosis Well woman exam with routine gynecological exam Routine gynecological examination Screening, , for anatomic survey Encounter for anatomic survey Vaginal discharge Leukorrhea, not specified as infective STD exposure Second trimester state, incidental 16 weeks gestation of Mass of right breast, unspecified quadrant Neoplasm of unspecified behavior of breast Other acne documented in this encounter [facility] Healthcare[facility] note* Diagnosis Encounter for anatomic survey- Primary [facility] Diagnosis Encounter for anatomic survey- Primary Obesity affecting in second trimester, unspecified obesity type Class 1 obesity without serious comorbidity with body mass index (BMI) of 34.0 to 34.9 in adult, unspecified obesity type 23 weeks gestation of state, incidental [facility] Diagnosis Second trimester state, incidental 26 weeks gestation of Diabetes mellitus screening Screening for diabetes mellitus size inconsistent with dates documented in this encounter [facility]* Diagnosis Third trimester state, incidental 29 weeks gestation of documented in this encounter [facility]* Diagnosis Third trimester state, incidental 31 weeks gestation of documented in this encounter [facility]* Diagnosis Third trimester state, incidental 33 weeks gestation of Gestational diabetes mellitus (GDM), antepartum, gestational diabetes method of control unspecified [facility] No data available for this section [facility] No data available for this section [facility] Reason for referral (narrative)* Diagnostic Procedure Only (Routine) - Open Specialty Diagnoses / Procedures Referred By Jose L alcocer Referred To Contact [facility] Diagnoses resulting from assisted reproductive technology in first trimester Procedures OBSTETRIC ULTRASOUND WHI US PREG UTERUS AFTER 1ST TRIMEST / GESTATION Andressa Abraham APRN.CNP [id number] [facility] [address] [place] [address] [place] [address] Referral ID Status Reason Start Date Expiration Date V isits Requested Visits Authorized [id number] Open Auto-Generate d Referral 01/20/2024 01/19/2025 1 1 [facility] N[facility]* Diagnostic Procedure Only (Routine) - Closed Specialty Diagnoses / Procedures Referred By Jose L alcocer Referred To Contact [facility] Diagnoses resulting from assisted reproductive technology in first trimester Procedures OBSTETRIC ULTRASOUND WHI US PREG UTERUS AFTER 1ST TRIMEST GESTATION Andressa Abraham OPERATIONAL TEST MECHANIC.VARNISH MAKER [address] [facility] [address] [place] [address] [facility] [address] [place] [address] Referral ID Status Reason Start Date Expiration Date V isits Requested Visits Authorized [id number] Closed Auto-Generate d Referral 01/27/2024 03/29/2024 1 1 [facility] N[facility]* Diagnostic Procedure Only (Routine) - Closed Specialty Diagnoses / Procedures Referred By Contac t Referred To Contact [facility] Diagnoses Encounter for anatomic survey Procedures OBSTETRIC ULTRASOUND WHI US PREG UTERUS AFTER 1ST TRIMEST GESTATION Tristan Gloria APRN.VARNISH MAKER [address] [facility], [address] [place] [address] Phone: tel: fax: [address] [address] Referral ID Status Reason Start Date Expiration Date V isits Requested Visits Authorized [id number] Closed Auto-Generate d Referral 05/30/2024 03/29/2025 1 1 [facility] Summary Purpose Family History No Family [...] Obstetrics and Gynecology Diagnoses Infertility, female Procedures IN OFFICE/OUTPATIENT [facility] 60 MINUTES Karen Bolanos MD [address] [place] [address] Patsy Blanco, DO [address] [address] Referral ID Status Reason Start Date Expiration Date Visits Requested Visits Authorized [id number] Pending Review Specialty Services Required 12/28/2023 06/25/2024 1 1 Additional Source Comments INFORMATION SOURCE (unrecogn ized section and content) DATE CREATED AUTHOR 09/21/2017 [facility] DATE CREATED AUTHOR AUTHOR'S ORGANIZ ATION 03/12/2021 [facility] DATE CREATED AUTHOR AUTHOR'S ORGANIZ ATION 03/16/2021 [facility] DATE CREATED AUTHOR AUTHOR'S ORGANIZ ATION 03/26/2022 [facility] DATE CREATED AUTHOR AUTHOR'S ORGANIZ ATION 02/29/2024 Rutledge Lloyd [facility] DATE CREATED AUTHOR AUTHOR'S ORGANIZ ATION 08/06/2024 [facility] DATE CREATED AUTHOR AUTHOR'S ORGANIZ ATION 08/09/2024 [facility] dical Specialists EPIC <item> Privacy Markings (unrecogniz ed section and content) Section Author: Smita Tello PROHIBITION ON REDISCLOSURE OF CONFIDENTIAL INFORMATION This notice accompanies a disclosure of information concerning a client made to you with the consent of such client. Patient Care team informatio n (unrecognized section and content) Tripper Relationship Specialty Start Date End Date Karen Bolanos MD [address] [place] [address] PCP - General Family Medicine 11/10/22 Karen Bolanos MD [address] [place] [address] PCP - [place] [employer] 12/28/22 Tripper Relationship Specialty Start Date End Date Karen Bolanos MD [address] [place] [address] PCP - General Family Medicine 11/10/22 Karen Bolanos MD [address] [place] [address] PCP - [place] [employer] 12/28/22 Tripper Relationship Specialty Start Date End Date Karen Bolanos MD [address] [place] [address] PCP - General Family Medicine 11/10/22 Tripper Relationship Specialty Start Date End Date Karen Bolanos MD [address] [place] [address] PCP - General Family Medicine 11/10/22 Tripper Relationship Specialty Start Date End Date Karen Bolanos MD [address] [place] [address] PCP - General Family Medicine 11/10/22 Karen Bolanos MD [address] [place] [address] PCP - [place] [employer] 12/28/22 Tripper Relationship Specialty Start Date End Date Karen Bolanos MD [address] [place] [address] PCP - General Family Medicine 11/10/22 Tripper Relationship Specialty Start Date End Date Karen Bolanos MD [address] [place] [address] PCP - General Family Medicine 11/10/22 Tripper Relationship Specialty Start Date End Date Karen Bolanos MD [address] [place] [address] PCP - General [facility] Medicine 11/10/22 Tripper Relationship Specialty Start Date End Date Karen Bolanos MD [address] [place] [address] PCP - General [facility] Medicine 11/10/22 Tripper Relationship Specialty Start Date End Date Karen Bolanos MD [address] [place] [address] PCP - [facility] Medicine 11/10/22 Tripper Relationship Specialty Start Date End Date Karen Bolanos MD [address] [place] [address] [facility] 11/10/22 Tripper Relationship Specialty Start Date End Date Karen Bolanos MD [address] [place] [address] [facility] 11/10/22 Tripper Relationship Specialty Start Date End Date Karen Bolanos MD [address] [place] [address] PCP - [facility] Medicine 11/10/22 Source Comments (unrecognize d section and content) In the event this informatio n is protected by the Federal Confidentiality of Alcohol and Drug Abuse Patient Records regulations: The Federal rules restrict any use of the information to criminally investigate or prosecute any alcohol or drug abuse patient.[facility] the event this information is protected by the Federal Confidentiality of Alcohol and Drug Abuse Patient Records regulations: The Federal rules restrict any use of the information to criminally investigate or prosecute any alcohol or drug abuse patient.[facility] the event this information is protected by the Federal Confidentiality of Alcohol and Drug Abuse Patient Records regulations: The Federal rules restrict any use of the information to criminally investigate or prosecute any alcohol or drug abuse patient.[facility] the event this information is protected by the Federal Confidentiality of Alcohol and Drug Abuse Patient Records regulations: The Federal rules restrict any use of the information to criminally investigate or prosecute any alcohol or drug abuse patient.[facility] Hospital[facility] the event this information is protected by the Federal Confidentiality of Alcohol and Drug Abuse Patient Records regulations: The Federal rules restrict any use of the information to criminally investigate or prosecute any alcohol or drug abuse patient.[facility] Hospital[facility] the event this information is protected by the Federal Confidentiality of Alcohol and Drug Abuse Patient Records regulations: The Federal rules restrict any use of the information to criminally investigate or prosecute any alcohol or drug abuse patient.[facility] the event this information is protected by the Federal Confidentiality of Alcohol and Drug Abuse Patient Records regulations: The Federal rules restrict any use of the information to criminally investigate or prosecute any alcohol or drug abuse patient.[facility] the event this information is protected by the Federal Confidentiality of Alcohol and Drug Abuse Patient Records regulations: The Federal rules restrict any use of the information to criminally investigate or prosecute any alcohol or drug abuse patient.[facility] Hospital[facility] the event this information is protected by the Federal Confidentiality of Alcohol and Drug Abuse Patient Records regulations: The Federal rules restrict any use of the information to criminally investigate or prosecute any alcohol or drug abuse patient.[facility] the event this information is protected by the Federal Confidentiality of Alcohol and Drug Abuse Patient Records regulations: The Federal rules restrict any use of the information to criminally investigate or prosecute any alcohol or drug abuse patient.[facility] the event this information is protected by the Federal Confidentiality of Alcohol and Drug Abuse Patient Records regulations: The Federal rules restrict any use of the information to criminally investigate or prosecute any alcohol or drug abuse patient.[facility] Hospital[facility] the event this information is protected by the Federal Confidentiality of Alcohol and Drug Abuse Patient Records regulations: The Federal rules restrict any use of the information to criminally investigate or prosecute any alcohol or drug abuse patient.[facility] Hospital[facility] the event this information is protected by the Federal Confidentiality of Alcohol and Drug Abuse Patient Records regulations: The Federal rules restrict any use of the information to criminally investigate or prosecute any alcohol or drug abuse patient.[facility] Hospital[facility] the event this information is protected by the Federal Confidentiality of Alcohol and Drug Abuse Patient Records regulations: The Federal rules restrict any use of the information to criminally investigate or prosecute any alcohol or drug abuse patient.[facility] the event this information is protected by the Federal Confidentiality of Alcohol and Drug Abuse Patient Records regulations: The Federal rules restrict any use of the information to criminally investigate or prosecute any alcohol or drug abuse patient.[facility] Hospital[facility] the event this information is protected by the Federal Confidentiality of Alcohol and Drug Abuse Patient Records regulations: The Federal rules restrict any use of the information to criminally investigate or prosecute any alcohol or drug abuse patient.[facility] Hospital[facility] the event this information is protected by the Federal Confidentiality of Alcohol and Drug Abuse Patient Records regulations: The Federal rules restrict any use of the information to criminally investigate or prosecute any alcohol or drug abuse patient.[facility] Hospital[facility] the event this information is protected by the Federal Confidentiality of Alcohol and Drug Abuse Patient Records regulations: The Federal rules restrict any use of the information to criminally investigate or prosecute any alcohol or drug abuse patient.[facility] HospitalIn the event this information is protected by the Federal Confidentiality of Alcohol and Drug Abuse Patient Records regulations: The Federal rules restrict any use of the information to criminally investigate or prosecute any alcohol or drug abuse patient.[facility] HospitalIn the event this information is protected by the Federal Confidentiality of Alcohol and Drug Abuse Patient Records regulations: The Federal rules restrict any use of the information to criminally investigate or prosecute any alcohol or drug abuse patient.[facility] Reason for Visit (unrecogniz ed section and content) Reason Comments Consult Reason Comments donor sperm teach Reason Comments Lila bloodwork completed today Reason Comments +ovulation test Sat&Sund d14 & 15 partne r calling Reason Comments Treatment Planning Specialty Diagnoses / Procedures [facility] To Contact REPRODUCTIVE ENDOCRINOLOGY & FERTILITY Diagnoses Encounter for procreative management, unspecified Encounter for other procreative management Procedures THAWING CRYOPRESERVED SPERM/SEMEN EACH ALIQUOT ARTIFIC INSEMINATION INTRAUTERIN Isai Abrahamiana Tulio, OPERATIONAL TEST MECHANIC.VARNISH MAKER [address] [place] [address] [facility] [address] [place] [address] Referral ID Status Reason Start Date Expiration Date V isits Requested Visits Authorized [id number] Closed Financial Clearance Required - Self Pay Patient Cleared - True Self-Pay required payment collected Do Not Bill Insurance - SP patient 12/04/2023 03/03/2024 2 2 Specialty Diagnoses / Procedures Referred By Micahscooter t Referred To Contact REPRODUCTIVE ENDOCRINOLOGY & FERTILITY Diagnoses Encounter for other procreative management Encounter for procreative management, unspecified Procedures ARTIFIC INSEMINATION INTRAUTERIN THAWING CRYOPRESERVED SPERM/SEMEN EACH ALIQUOT Jarad Andressa Antunez, OPERATIONAL TEST MECHANIC.VARNISH MAKER [address] [place], [place] [id number] [facility] [address] [place] [address] Referral ID Status Reason Start Date Expiration Date V isits Requested Visits Authorized [id number] Closed Patient Cleared - True Self-Pay required [...] BE BASED ON THE PRIMARY CLINICAL RECORDS. [facility]. provides no warranty or guarantee of the accuracy or completeness of information in this document.
[2024-08-16 05:36] VITALS: BP 125/68; PULSE 66; TEMP 36.4
[2024-08-16 06:09] LABS: Bilirubin Urine NEGATIVE (NEGATIVE); Blood Urine NEGATIVE (NEGATIVE); Clarity Urine CLEAR (CLEAR); Color Urine LT. YELLOW (YELLOW); Glucose Urine UA NEGATIVE (NEGATIVE); Ketones Urine 15 mg/dL (NEGATIVE); Leukocyte Esterase Urine NEGATIVE (NEGATIVE); Nitrite Urine NEGATIVE (NEGATIVE); Protein Urine NEGATIVE (NEG/TRACE); Specific Gravity Urine <=1.005 (1.005-1.025); Urobilinogen Urine 0.2 EU/dL (0.2-1.0)
[2024-08-16 06:18] LABS: Urine Microscopic Indicated NO
[2024-08-16] MEDS: 0.9 % SODIUM CHLORIDE 1,000 ML 999 ML IV (06:45)
== END 2024-08-16 08:35 | disposition home or self-care (01) ==
PROVIDERS: Admitting Provider Family Medicine Addiction Medicine; PCP Student in an Organized Health Care Education/Training Program; Visit Provider Family Medicine Addiction Medicine
DX: O47.03 False labor before 37 completed weeks of gestation, third trimester (principal); Z3A.34 34 weeks gestation of pregnancy
CPT/HCPCS: 59025; 81003; G0378; G0379

== ENCOUNTER 2024-08-20 13:05 | Outpatient (OUT) | payer BC, SELFPAY ==
--- OUTSIDE RECORDS SUMMARY | 2024-08-08 14:00 | XMS_ITS ---
Author Name Auto Generated Organization OHIP Support Name Relationship Address Phone WANDA STEWARD Next of Kin [address] [place] [address] + ROXANN STEWARD Next of Kin [facility] [place] [address] + WANDA STEWARD Next of Kin [address] [place] [address], [place] [address] + ROXANN STEWARD Next of Kin [facility] [place] [address] + WANDA STEWARD Next of Kin [address] [place] [address], [place] [address] + ROXANN STEWARD Next of Kin [address] [place] [address] + WANDA STEWARD Next of Kin [address] [place] [address] + ROXANN STEWARD Next of Kin [address] [place] [address] + WANDA STEWARD Next of Kin [address] [place] [address] + ROXANN SETWARD Next of Kin [address] [place] [address] + WANDA STEWARD Next of Kin [address] [facility] [place] [address] + ROXANN STEWARD Next of Kin [address] [place] [address] + WANDA STEWARD Next of Kin [address] [place] [address] + ROXANN STEWARD Next of Kin [address] [place] [address] + WANDA STEWARD Next of Jourdan [address] [facility] [place] [place] [address] + ROXANN STEWARD Next of Jourdna [address] [place] [place] [address] + WANDA STEWARD Next of Jourdan [address] [facility] [place] [address] + ROXANN STEWARD Next of Jourdan [address] [place] [place] [address] + Care Team Providers Care Home Performance Consultant Name Role Phone JARAD, ANDRESSA Tulio Attending Unavailable SMOLEN, JESSI Referring Unavailable JARAD, ANDRESSA G Attending Unavailable JARAD, ANDRESSA G Referring Unavailable ANGELICAMYRIAM Attending Unavailable JARAD, ANDRESSA G Referring Unavailable JARAD, ANDRESSA G Referring Unavailable REHMER, ANYI Attending Unavailable JARAD, ANDRESSA G Referring Unavailable SMOLEN, JESSI Referring Unavailable JARAD, ANDRESSA Antunez Attending Unavailable SMOLEN, JESSI Referring Unavailable FERN LAMAR Attending Unav ailable JARAD, ANDRESSA Tulio Referring Unavailable MERIDIETH, TRISTAN Referring Unavailable BERGMAN, TIARRA Attending Unavailable GAVIN, NINA Attending Unavailable GAVIN, NINA Referring Unavailable GAVIN, NINA Attending Unavailable GAVIN, NINA Attending Unavailable SVENDINA Attending Unavailable LUIS MIGUELKAREN Attending Unavailable GAVIN, NINA Attending Unavailable PROBLEMS DATE TYPE CONDITION / CODE ATTENDING STATUS [facility] 06/01/2024 Active Encounter for fe eugenia anatomic survey / Z36.89(ICD-10) NA Active [facility] 02/09/2024 Active result ing from assisted reproductive technology in first trimester / O09.811(ICD-10) FERN LAMAR Active [facility] 01/19/2024 Active Encounter for test, result positive / Z32.01(ICD-10) NA Active [facility] 10/16/2023 Active Female infertili ty / N97.9(ICD-10) NA Active [facility] PROCEDURES No Procedure Records Found RESULTS CNPN Observed: 07/20/2024 12:00 AM Status: COMPLETED Source: [facility] Telephone ([id number]) PAULINENELLI ([id number]) 1990 F Date Time Provider Department 07/20/24 HISTORICAL [id number] During your visit today, we recorded the following information about you: Jessy Henry, BALJINDER 07/20/2024 1:19 PM Signed Received outside referral from Dr. Prieto for GDM consult due to elevated 1 hour glucose 202. Called pt. To schedule appointment no answer, left message with call back phone number. BALJINDER Zaman Laura Lee 07/25/2024 11:57 AM Signed Nelli Steward called today. Caller's (home) [phone] (cell) Reason for call: Pt calling nurse back to be scheduled for GDM consult due to elevated 1 hour glucose 202. Jessy Zamora, BALJINDER 08/04/2024 3:24 PM Addendum Outside referral received from Dr. Prieto for elevated 1 hour glucose 202. Pt. Has all testing supplies and has been checking BS periodically. Advised pt. To start checking 4 times daily and upload to [employer]. 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 Other med hx: asthma, placenta previa with previous OB History Gravida4 Para2 Term2 Preterm0 AB1 Living2 SAB1 IAB0 Ectopic0 Multiple0 Live Births2 2014- , vag MAB 2017- FT, c-sec placenta previa Current meds: PNV Last growth US 07/11, pt. Advised to schedule growth US every 4 weeks. Pt. Scheduled for SMA GDM class on 08/[address] Quintanilla. Jessy Henry, RN Records sent to medical records, and also available in [address]. Allergies As of Date: 07/20/2024 (No Known Allergies) Date Reviewed: 01/20/2024 Reviewed by: Jarad, Andressa G, SUPPLIER DIVERSITY DIRECTOR.COLD MILL OPERATOR - Fully Assessed Prescriptions as of 08/04/2024 - vit/iron fum/folic ac ( 1 + 1 ORAL) Take by mouth. - mv-min/iron/folic/calcium/vitK (WOMEN'S MULTIVITAMIN ORAL) Take by mouth. Problem List As Of Date 07/20/2024 Noted Resolved Complete placenta previa with hemorrhage, third*12/09/2016 06/01/2024 Encounter Status:Closed by JESSY HENRY on 07/20/24 US OB FOLLOW UP TRANSABDOMINAL APPROACH Observed: 06/22/2024 1:58 PM Status: F Source: [facility] EPIC Order Comment: US OB SCAN FO R GROWTH Estimated Date of Delivery: 09/24/24 Gestational Age as of 06/22/2024: 26w4d Imaging facility unable to obtain prior images. Prior report attached. EXAM: US OB FOLLOW UP TRANSA BDOMINAL APPROACH HISTORY: Inconsistent size. COMPARISON: Ob ultrasound 06/01/2024 - Report only. TECHNIQUE: Two-dimensional transabdominal grayscale ultrasound imaging of the pelvis was performed. FINDINGS: Gestation: Single Presentation: Breech Cardiac Activity: 149 beats per minute Placental Location: Anterior with no sonographic abnormalities identified. Cervical canal: Not visualized Amniotic Fluid Index: 16.3 cm MEASUREMENTS: BPD: 7.9 cm EGA: 31 weeks 4 days HC: 29.2 cm EGA: 32 weeks 1 days AC: 26.7 cm EGA: 30 weeks 6 days FL: 5.7 cm EGA: 29 weeks 5 days HC/AC Ratio: 1.09 The gestational age by today's ultrasound is 31 weeks 1 days (+/- 15 days gestation). Estimated Weight: 1619 grams, +/- 243 grams ( 3 lb 9 oz). Weight Percentile for gestational age: 85 % IMPRESSION: 1. Single, live intrauterine gestation 29 weeks, 2 days by LMP. Today's ultrasound measurements correlate with a gestational age of 31 weeks 1 days. Estimated weight is 1619 grams, +/- 243 grams ( 3 lb 9 oz) which correlates to 85 %. PAULA is 09/11/2024. Interpreted by: Electronically signed by TRAVIS SOLOMON II, MD, PHD at 11-Jul-2024 11:47:38 PM [facility] PROGRESS Observed: 06/01/2024 3:06 PM Status: COMPLETED [id number] Author: LEONID MYERS MD Service: ? Author Type: Physician Type: Progress Notes Filed: 06/01/2024 15:07 Note Text: Please see ultrasound report for details of this visit. Leonid Myers M.D. BI US BREAST COMPLETE RIGHT Observed: 1:07 PM Status: F Source: [facility] This is a summary report. Th e complete report is available in the patient's medical record. If you cannot access the medical record, please contact the sending organization for a detailed fax or copy. Examination: BI US BREAST COMPLETE RIGHT Reason for Study: breast lump right breast Comparison: None Technique: Complete right breast ultrasound study was performed to include all 4 quadrants and the subareolar region. Findings: No obvious solid or cystic mass. No obvious solid vascular mass to suggest neoplasm. No obvious abnormal calcifications or vascularity. No obvious ductal dilatation. IMPRESSION: Impression: Right breast ultrasound study is grossly unremarkable. No convincing evidence of neoplasm. BI-RADS 2 ELECTRONICALLY SIGNED BY: Floyd Way M.D. FAMILY MEDICINE OFFICE/CLINI C NOTE Observed: 02/28/2024 9:58 AM Status: F Source: [facility] Family Medicine Office/Clini c Note Chief Complaint ear pain, cough, sore throat HPI Staff 33 year old female presents with bilateral ear pain- right is worse, cough, sore throat, mild head pressure, congestion symptoms began yesterday pt it 10 weeks History of Present Illness Reviewed and agree with above documented HPI by bacteriologist medical. Portions of this record may have been created with voice recognition artificial intelligence software, specifically [employer], [employer] and or [employer]. Substitutions may have occurred due to the [...] in complete sentences. Follows commands appropriately. Head: Normocephalic/atraumatic positive upper respiratory infection. Eyes: Pupils equal, [...] for amoxicillin, instructed she can only take xdms-qdu-ggmduoy Tylenol for body aches, headaches, and fevers since she is . Given a work excuse note. Follow-up with primary care provider as needed. 1. Right otitis media with effusion (H65.91: Unspecified nonsuppurative otitis media, right ear) See above Ordered: amoxicillin, 960 mg = 12 mL, Oral, q12hr, X 10 day(s), # 240 mL, Refills(s) 0, Pharmacy: [facility] #[id number], 158, cm, 02/28/24 9:01:00 EST, Height/Length Dosing, [...] this problem. Your BMI and weight management will be followed at subsequent visits. Orders: Influenza Type A&B POC 07040 Rapid COVID POC 48601 Follow-up With When Contact Information Luis Miguel CANTU, [place] [address] [place] [address]- Additional Instructions: Patient Education BMI for Adults Otitis Media, Adult, Tuea-oh-Hcym Problem List/Past Medical History Ongoing Acute sinusitis BMI 34.0-34.9,adult Right otitis media with effusion Sinus congestion Historical No qualifying data Procedure/Surgical History section, IUD - Removal of intrauterine device. Medications amoxicillin 400 mg/5 mL Oral Liq, 960 mg= 12 mL, Oral, q12hr Allergies No Known Allergies Social History Tobacco Never (less than 100 in lifetime) Tobacco Use:. Never Smokeless Tobacco Use:., 02/28/2024 Immunizations Vaccine Date Status Comments measles/mumps/rubella virus vaccine 09/13/2023 Recorded influenza virus vaccine, inactivated 06/15/2023 Recorded influenza virus vaccine, inactivated - Not Given [...] 1990 Recorded DTaP, unspecified formulation 1990 Recorded Lab Results Ambulatory Point of Care Results Influenza A POC: Negative (02/28/24 09:25:00) Influenza B POC: Negative (02/28/24 09:25:00) Rapid Covid POC: Negative (02/28/24 09:25:00) Result Comment: Electronical ly Signed By: MADALYN LOZADA, TIARRA\.surjit\Date and Time Signed: 02/28/24 09:58 EST PATIENT EDUCATION Observed: 02/28/2024 9:57 AM Status: C Source: [facility] Patient Education ENT Otitis Media, Adult Otitis [...] Follow these instructions at home: ??? Take lxtr-olp-woxrnuf and prescription medicines only as told by [...] provider. Document Revised: 06/24/2021 Document Reviewed: 06/24/2021 [employer] Patient Education ? 2023 Perfect Channel.Nutrition BMI for Adults Body mass index (BMI) [...] To calculate your BMI in metric measurements: 1. Measure your weight in kilograms (kg). ??? For this example, the weight is 70 kg. 2. Measure your height in meters (m). Then multiply that number by itself to get a measurement called meters squared. ??? So, for an adult who is 1.75 m tall, the meters squared measurement is 1.75 m x 1.75 m, which equals 3.1 meters squared. 3. Divide the number of kilograms (your weight) by the meters squared number. In this example: 70 ? 3.1 = 22.6. This is your BMI. What do the results mean? BMI charts are used to see if you are underweight, normal weight, overweight, or obese. The following guidelines will be used: ??? Underweight: BMI less than 18.5. ??? Normal weight: BMI between 18.5 and 24.9. ??? Overweight: BMI between 25 and 29.9. ??? Obese: BMI of 30 or above. BMI is a tool and cannot diagnose a condition. Talk with your health care provider about what your BMI means for you. Keep these notes in mind: ??? Weight includes fat and muscle. Someone with a muscular build, such as an athlete, may have a BMI that is higher than 24.9. In cases like these, BMI is not a correct measure of body fat. ??? If you have a BMI of 25 or higher, your provider may need to do more testing to find out if excess body fat is the cause. ??? BMI is measured the same way for males and females. Females usually have more body fat than males of the same height and weight. Where to find more information For more information about BMI, including tools to quickly find your BMI, go to: ??? Centers for Disease Control and Prevention: cdc.gov ??? [place] Heart Association: heart.org ??? National Heart, Lung, and Blood [place]: nhlbi.nih.gov This information is not intended to replace advice given to you by your health care provider. Make sure you discuss any questions you have with your health care provider. Document Revised: 12/04/2022 Document Reviewed: 11/27/2022 Elsevier Patient Education ? 2023 Perfect Channel. AMBULATORY VISIT SUMMARY Observed: 02/27 9:43 AM Status: F Source: [facility] Ambulatory Visit Summary NELLI STEWARD :1990 Visit Date:02/28/2024 Ambulatory Visit Instructions Your [...] with effusion Duration: 10 Days Pickup at [id number]: [address] [place], [place] [id number] [phone] Allergies No Known Allergies Problems Ongoing - [...] you for choosing us for your care. PATIENT LETTER [facility] Observed: 02/28/2024 9:27 AM Status: F Source: [facility] Patient Letter [facility] [address] [place] [id number] February 28, 2024 NELLI [place] [address] : 1990 Please excuse STEWARDMAKAYLANELLI Edgar from work . Date and/or Time of Absence: From: 02/29/24 May return to work on: 03/01/24 Restrictions: None Comments: Please excuse due to an acute illness. Provider Signature: KIERRA Ellison [address] [place] [address] PROGRESS Observed: 02/09/2024 12:27 PM Status: COMPLETED Source: [facility] HNO ID: [id number] Author: VIDHYA PITT APRN.LEXUS Service: ? Author Type: Nurse Practitioner Type: Progress Notes Filed: 02/09/2024 12:28 Note Text: Nelli Pauline here today for a scan. This is [...] Plan Move on to OB Vidhya Pitt APRN.COLD MILL OPERATOR February 09, 2024 12:27 PM PROGRESS Observed: 02/09/2024 11:28 AM Status: COMPLETED Source: [facility] HNO ID: [id number] Author: PARTH CLARK MD Service: ? Author Type: Physician Type: Progress Notes Filed: 02/09/2024 11:28 Note Text: Scan Visit Patient here for scan. See imaging documentation. Parth Clark MD CNNURSE Observed: 02/09/2024 10:30 AM Status: COMPLETED Source: [facility] Nurse Visit (REIAV) NELLI STEWARD ([id number]) 1990 F Date Time Provider Department 02/09/24 10:30 AM NURSE SARMAD [facility] REJ REIAV During your visit today, we recorded the following information about you: Parth Clark MD 02/09/2024 11:28 AM Signed Scan Visit Patient here for scan. See imaging documentation. MD Diego Bajwa Lauren, SUPPLIER DIVERSITY DIRECTOR.[facility] 02/09/2024 12:28 PM Signed Nelli Steward here today for a scan. This is her 1st scan. History of ectopic: No, History of SAB: Yes History of pelvic/abdominal surgeries: Yes, [facility] LMP 12/18, natural cycle, LH surge: 12/31, [...] Pitt APRN.CNP February 09, 2024 12:27 PM Referring Provider: ANDRESSA ABRAHAM [[id number]] Allergies As of Date: 02/09/2024 (No Known Allergies) Date Reviewed: 01/20/2024 Reviewed by: Andressa Abraham APRN.COLD MILL OPERATOR - Fully Assessed Visit Diagnosis: resulting from assisted reproductive technology in first trimester [O09.811] Order(s):OBSTETRIC ULTRASOUND I [[id number]] Order #: [id number]. #:[id number]: [id number] Prescriptions as of 02/09/2024 - vit/iron fum/folic ac ( 1 + 1 ORAL) Take by mouth. - mv-min/iron/folic/calcium/vitK (WOMEN'S MULTIVITAMIN ORAL) Take by mouth. Problem List As Of Date: 02/09/2024 (None) Encounter Status:Closed by PARTH CLARK on 02/09/24 B-HCG SERPL-ACNC Collected: 12:44 PM Status: F Source: [facility] Order Comment: Specimen Type : BLOOD SPECIMEN Ordering Facility: [facility] Address: [address] [place] [address] TYPE CODE TESTS RESULT OUT OF RANGE REFERENCE UNITS LAB 66103-4(LOINC) B-HCG SerPl-aCnc 2270.0 High <5.0 mIU/mL Result Comment: QUANTITATIVE HCG NORMAL RANGES Weeks of Gestation (Weeks Since LMP) 3 Weeks (5.8-71.2 mIU/mL) 4 Weeks (9.5-750 mIU/mL) 5 Weeks (217-7138 mIU/mL) 6 Weeks (158-14790 mIU/mL) 7 Weeks (3697-647733 mIU/mL) 8 Weeks (36888-831836 mIU/mL) 9 Weeks (41158-388729 mIU/mL) 10 Weeks (85147-999868 mIU/mL) 12 Weeks (33972-382032 mIU/mL) Referenced to 4th IS of [facility] Performed By: #### 29746-8 # ### [facility] CLIA [id number] [address] [place] [address] [place] [id number] [place] PROGRESS Observed: 01/20/2024 9:03 AM Status: COMPLETED Source: [facility] HNO ID: [id number] Author: ANDRESSA ABRAHAM APRN.COLD MILL OPERATOR Service: ? Author Type: Nurse Practitioner Type: Progress Notes Filed: 01/20/2024 09:34 Note Text: REPRODUCTIVE ENDOCRINOLOGY AND INFERTILITY New SERVICE DATE: 01/20/2024 SERVICE TIME: 9:03 AM NAME: Nelli Steward VIRTUAL VISIT PROGRESS NOTE This is a virtual visit. It required patient-provider interaction for the medical decision making as documented below. Patient name and birthday verified: Yes Location of patient: home Persons Present: patient I have communicated my name and active licensure. The patient's identity and physical location were verified at the time of this visit. Either the patient or their legal transportation services representative has been informed of the risks [...] which included preparing to see the patient, ilps-fg-gasc patient care, completing clinical documentation, obtaining and/or [...] grammatical and typographical errors missed in proofreading. B-HCG SERPL-ACNC Collected: 9:33 AM Status: F Source: [facility] Comment: Specimen Type : BLOOD SPECIMEN Ordering Facility: [facility] Address: [address] [place] [address] TYPE CODE TESTS RESULT OUT OF RANGE REFERENCE UNITS LAB 98853-4(INC) B-HCG SerPl-aCnc 792.1 High <5.0 mIU/mL Result Comment: QUANTITATIVE HCG NORMAL RANGES Weeks of Gestation (Weeks Since LMP) 3 Weeks (5.8-71.2 mIU/mL) 4 Weeks (9.5-750 mIU/mL) 5 Weeks (217-7138 mIU/mL) 6 Weeks (158-06947 mIU/mL) 7 Weeks (3697-867192 mIU/mL) 8 Weeks (76313-754018 mIU/mL) 9 Weeks (31477-272816 mIU/mL) 10 Weeks (67934-502090 mIU/mL) 12 Weeks (97146-145365 mIU/mL) Referenced to 4th IS of [facility] Performed By: #### 69450-3 # ### [facility] CLIA [id number] [address] [place] [address] [place] Observed: 01/18/2024 12:00 AM Status: COMPLETED Source: [facility] Telephone (REIBD) NELLI STEWARD ([id number]) 1990 F Date Time Provider Department 01/18/24 ANDRESSA ABRAHAM REIBD During your visit today, we recorded the following information about you: Destiny Peters 01/18/2024 10:36 AM Signed Please call patient back regarding next steps. Jessi Baird PA-C 01/18/2024 4:03 PM Signed Patient calls [...] Labs ordered: hCG x 2 FYI Angelica Baird PA-C January 18, 2024 4:02 PM Allergies As of Date: 01/18/2024 (No Known Allergies) Date Reviewed: 11/23/2023 Reviewed by: Andressa Abraham APRN.COLD MILL OPERATOR - Fully Assessed Reason for Visit: +hpt 01/15 after an iui [Other] Primary Visit Diagnosis:Encounter for test, result positive [Z32.01] Order(s):HCG QUANTITATIVE [SQHCGQT] Order #: [id number] STANDING Prescriptions as of 01/18/2024 - vit/iron fum/folic ac ( 1 + 1 ORAL) Take by mouth. - mv-min/iron/folic/calcium/vitK (WOMEN'S MULTIVITAMIN ORAL) Take by mouth. - BIOTIN ORAL Take by mouth once daily. Problem List As Of Date: 01/18/2024 (None) Medications Discontinued During This Encounter Prescriptions - levonorgestrel (MIRENA) 20 mcg/24 hr IUD (Discontinued) Reported on 06/08/2023 Encounter Status:Closed by JESSI BAIRD on 01/18/24 PROGRESS Observed: 01/02/2024 11:46 AM Status: COMPLETED Source: [facility] HNO ID: [id number] Author: FLAVIA CROWE, ? Service: ? Author Type: Cost Reduction Engineer Type: Progress Notes Filed: 01/02/2024 11:47 Note Text: Thaw for IUI Flavia Crowe PROGRESS Observed: 01/02/2024 11:39 AM Status: COMPLETED Source: [facility] HNO ID: [id number] Author: FLAVIA CROWE, ? Service: ? Author Type: Cost Reduction Engineer Type: Progress Notes Filed: 01/02/2024 11:46 Note Text: IUI Xytex #: [id number] Washed frozen specimen Post: 122 m/ml, 63% Insem#: 34.7 million PROCEDURE Observed: 01/02/2024 11:32 AM Status: COMPLETED Source: [facility] HNO ID: [id number] Author: ANYI GANT MD Service: ? Author Type: Fellow Type: Procedures Filed: 01/02/2024 11:46 Note Text: WHI SARMAD IUI PROCEDURE NOTE Date: 01/02/2024 Primary Proceduralist: Uma Aguilera MD Consents and Labels Consent Signed: Informed Consent obtained and on the chart Labels Verified With Patient: Yes Indications: Nelli Steward, is a 33 year old female here today for intrauterine insemination. IUI # 2. Cycle Day: 15 Last menstrual period: 12/19/2023 [place]ott Protocol: UNIVERSAL PROTOCOL / SAFETY CHECKLIST Procedure [...] discussed with the Patient or Patient's Authorized Global Program Director. As applicable, any other physician, advance practice provider, medical student, or other health professional student that will be observing or involved in the sensitive examination for educational or training purposes was discussed with the Patient or Authorized Global Program Director. The Patient or Authorized Global Program Director has agreed to proceed with the sensitive examination. (Sensitive examination includes inspection and/or palpation of the breasts, pelvis, prostate and anorectal regions) Patient declined safety and health consultant. IUI IUI Date: 01/02/24 Partner's Name: Wanda Steward IUI Time: 11:29 AM EDT Partner's : [...] SIGNATURE: Uma Aguilera MD PATIENT NAME: Nelli Steward DATE: January 02, 2024 TIME: 11:32 AM Agree with above documentation. I was available during the adams components of this patient visit and discussed the patient's plan of management with Dr. Aguilera and patient. Dr. Anyi Gant M.D. Reproductive Endocrinology and Infertility PROGRESS Observed: 01/02/2024 11:15 AM Status: COMPLETED Source: [facility] HNO ID: [id number] Author: MIKHAIL FLAVIA, ? Service: ? Author Type: Cost Reduction Engineer Type: Progress Notes Filed: 01/02/2024 11:46 Note Text: IUI specimen released to provider Flavia Crowe January 02, 2024 11:23 AM CNOV Observed: 01/02/2024 11:00 AM Status: COMPLETED Source: [facility] Office Visit (REIBD) NELLI STEWARD ([id number]) 1990 F Date Time Provider Department 01/02/24 11:00 AM ANYI GANT During your visit today, we recorded the following information about you: Flavia Crowe 01/02/2024 11:46 AM Signed IUI specimen released to provider Flavia E Mikhail January 02, 2024 11:23 AM Uma Aguilera MD 01/02/2024 11:32 AM Addendum WHI SARMAD IUI PROCEDURE NOTE Date: 01/02/2024 Primary Proceduralist: Uma Aguilera MD Consents and Labels Consent Signed: Informed Consent obtained and on the chart Labels Verified With Patient: Yes Indications: Nelli Steward, is a 33 year old female here today for intrauterine insemination. IUI # 2. Cycle Day: 15 Last menstrual period: 12/19/2023 Ridott Protocol: UNIVERSAL PROTOCOL / SAFETY CHECKLIST Procedure [...] discussed with the Patient or Patient's Authorized Global Program Director. As applicable, any other physician, advance practice provider, medical student, or other health professional student that will be observing or involved in the sensitive examination for educational or training purposes was discussed with the Patient or Authorized Global Program Director. The Patient or Authorized Global Program Director has agreed to proceed with the sensitive examination. (Sensitive examination includes inspection and/or palpation of the breasts, pelvis, prostate and anorectal regions) Patient declined safety and health consultant. IUI IUI Date: 01/02/24 Partner's Name: Wanda Steward IUI Time: 11:29 AM EDT Partner's : [...] SIGNATURE: Uma Aguilera MD PATIENT NAME: Nelli Steward DATE: January 02, 2024 TIME: 11:32 AM Agree with above documentation. I was available during the adams components of this patient visit and discussed the patient's plan of management with Dr. Aguilera and patient. Dr. Anyi Gant M.D. Reproductive Endocrinology and Infertility Mikhail Flavia Rowena 01/02/2024 11:46 AM Signed IUI Xytex #: [id number] Washed frozen specimen Post: 122 m/ml, 63% Insem#: 34.7 million Referring Provider: ANDRESSA ABRAHAM [[id number]] Allergies As of Date: 01/02/2024 (No Known Allergies) Date Reviewed: 11/23/2023 Reviewed by: Andressa Abraham APRN.COLD MILL OPERATOR - Fully Assessed Primary Visit Diagnosis:Encounter for artificial insemination [Z31.89] Prescriptions as of 01/02/2024 - vit/iron fum/folic ac ( 1 + 1 ORAL) Take by mouth. - mv-min/iron/folic/calcium/vitK (WOMEN'S MULTIVITAMIN ORAL) Take by mouth. - BIOTIN ORAL Take by mouth once daily. - levonorgestrel (MIRENA) 20 mcg/24 hr IUD 1 Each by INTRAUTERINE route one time only. Problem List As Of Date: 01/02/2024 (None) Encounter Status:Closed by ANYI GANT on 01/02/24 CNOV Observed: 01/02/2024 10:30 AM Status: COMPLETED Source: [facility] Office Visit (ANDRBE) NELLI STEWARD ([id number]) 1990 F Date Time Provider Department 01/02/24 10:30 AM [facility] During your visit today, we recorded the following information about you: Flavia Crowe 01/02/2024 11:47 AM Signed Thaw for IUI Flavia Crowe Referring Provider: ANDRESSA ABRAHAM [[id number]] Allergies As of Date: 01/02/2024 (No Known Allergies) Date Reviewed: 11/23/2023 Reviewed by: Andressa Abraham APRN.COLD MILL OPERATOR - Fully Assessed Primary Visit Diagnosis:Procreative management [Z31.9] Prescriptions as of 01/02/2024 - vit/iron fum/folic ac ( 1 + 1 ORAL) Take by mouth. - mv-min/iron/folic/calcium/vitK (WOMEN'S MULTIVITAMIN ORAL) Take by mouth. - BIOTIN ORAL Take by mouth once daily. - levonorgestrel (MIRENA) 20 mcg/24 hr IUD 1 Each by INTRAUTERINE route one time only. Problem List As Of Date: 01/02/2024 (None) Encounter Status:Closed by FLAVIA CROWE on 01/02/24 PROGRESS Observed: 12/05/2023 10:32 AM Status: COMPLETED Source: [facility] HNO ID: [id number] Author: STEPHANIE LARA, ? Service: ? Author Type: ? Type: Progress Notes Filed: 12/06/2023 08:45 Note Text: IUI Xytex #[id number] Frozen washed specimen Post: 145 Million/mL, 68% Insem #: 49 Million PROCEDURE Observed: 12/05/2023 10:31 AM Status: COMPLETED Source: [facility] HNO ID: [id number] Author: MYRIAM DOMINGUEZ MD Service: ? Author Type: Fellow Type: Procedures Filed: 12/06/2023 08:45 Note Text: WHI SARMAD IUI PROCEDURE NOTE Date: 12/05/2023 Primary Proceduralist: Uma Aguilera MD Consents and Labels Consent Signed: Informed Consent obtained and on the chart Labels Verified With Patient: Yes Indications: Nelli Steward, is a 33 year old female here today for intrauterine insemination. IUI # 1. Cycle Day: 15 Last menstrual period: 11/21/2023 [place] Protocol: UNIVERSAL PROTOCOL / SAFETY CHECKLIST Procedure [...] EMERGENT procedures): No specimen collected. Patient declined safety and health consultant. Uma Aguilera MD IUI IUI Date: 12/05/23 Partner's Name: Wanda Steward IUI Time: 10:25 AM EDT Partner's : [...] after wash): 49 million Donor ID #: [id number] Cycle reviewed, all questions answered. Pt instructed to take a test in 17 days if no menses and call with results. SIGNATURE: mUa Aguilera MD PATIENT NAME: Nelli Steward DATE: December 05, 2023 TIME: 10:31 AM I was present and immediately available for the entire procedure. Patient underwent an intrauterine insemination. Myriam Dominguez MD, TRUDY PROGRESS Observed: 12/05/2023 10:22 AM Status: COMPLETED Source: [facility] HNO ID: [id number] Author: STEPHANIE LARA, ? Service: ? Author Type: ? Type: Progress Notes Filed: 12/05/2023 10:23 Note Text: Thaw for IUI Stephanie Lara PROGRESS Observed: 12/05/2023 10:19 AM Status: COMPLETED Source: [facility] HNO ID: [id number] Author: STEPHANIE LARA, ? Service: ? Author Type: ? Type: Progress Notes Filed: 12/06/2023 08:45 Note Text: IUI specimen released to provider Stephanie Lara December 05, 2023 10:19 AM CNOV Observed: 12/05/2023 10:00 AM Status: COMPLETED Source: [facility] Office Visit (REIBD) NELLI STEWARD ([id number]) 1990 F Date Time Provider Department 12/05/23 [...] Labels Verified With Patient: Yes Indications: Nelli Steward, is a 33 year old female here today for intrauterine insemination. IUI # 1. Cycle Day: 15 Last menstrual period: 11/21/2023 Ridott Protocol: UNIVERSAL PROTOCOL / SAFETY CHECKLIST Procedure [...] EMERGENT procedures): No specimen collected. Patient declined safety and health consultant. Uma Aguilera MD IUI IUI Date: 12/05/23 Partner's Name: Wanda Steward IUI Time: 10:25 AM EDT Partner's : [...] after wash): 49 million Donor ID #: [id number] Cycle reviewed, all questions answered. Pt instructed to take a test in 17 days if no menses and call with results. SIGNATURE: Uma Aguilera MD PATIENT NAME: Nelli Steward DATE: December 05, 2023 TIME: 10:31 AM I was present and immediately available for the entire procedure. Patient underwent an intrauterine insemination. Myriam Dominguez MD, Stephanie Barnett 12/06/2023 8:45 AM Signed IUI Xytex #[id number] Frozen washed specimen Post: 145 Million/mL, 68% Insem #: 49 Million Referring Provider: ANDRESSA ABRAHAM [[id number]] Allergies As of Date: 12/05/2023 (No Known Allergies) Date Reviewed: 11/23/2023 Reviewed by: Andressa Abraham APRN.COLD MILL OPERATOR - Fully Assessed Primary Visit Diagnosis:Female infertility [N97.9] Prescriptions as of 12/06/2023 - vit/iron fum/folic ac ( 1 + 1 ORAL) Take by mouth. - mv-min/iron/folic/calcium/vitK (WOMEN'S MULTIVITAMIN ORAL) Take by mouth. - BIOTIN ORAL Take by mouth once daily. - levonorgestrel (MIRENA) 20 mcg/24 hr IUD 1 Each by INTRAUTERINE route one time only. Problem List As Of Date: 12/05/2023 (None) Encounter Status:Closed by MYRIAM DOMINGUEZ on 12/06/23 CNOV Observed: 12/05/2023 9:30 AM Status: COMPLETED Source: [facility] Office Visit (ANDRBE) NELLI STEWARD ([id number]) 1990 F Date Time Provider Department 12/05/23 9:30 AM [facility]OLOGY [facility] During your visit today, we recorded the following information about you: Stephanie Lara 12/05/2023 10:23 AM Signed Thaw for IUI Stephanie Lara Referring Provider: ANDRESSA ABRAHAM [[id number]] Allergies As of Date: 12/05/2023 (No Known Allergies) Date Reviewed: 11/23/2023 Reviewed by: Andressa Abraham APRN.COLD MILL OPERATOR - Fully Assessed Primary Visit Diagnosis:Procreative management [Z31.9] Prescriptions as of 12/05/2023 - vit/iron fum/folic ac ( 1 + 1 ORAL) Take by mouth. - mv-min/iron/folic/calcium/vitK (WOMEN'S MULTIVITAMIN ORAL) Take by mouth. - BIOTIN ORAL Take by mouth once daily. - levonorgestrel (MIRENA) 20 mcg/24 hr IUD 1 Each by INTRAUTERINE route one time only. Problem List As Of Date: 12/05/2023 (None) Encounter Status:Closed by STEPHANIE LARA on 12/05/23 Observed: 11/23/2023 5:56 PM Status: COMPLETED Source: [facility] HNO ID: [id number] Author: ANDRESSA ABRAHAM APRN.CNP Service: ? Author [...] None Comments: None Andressa Abraham APRN.CNP 11/23/2023 PROGRESS Observed: 11/23/2023 9:09 AM Status: COMPLETED Source: [facility] HNO ID: [id number] Author: ANDRESSA ABRAHAM APRN.CNP Service: ? Author Type: Nurse Practitioner Type: Progress Notes Filed: 11/23/2023 17:58 Note Text: REPRODUCTIVE ENDOCRINOLOGY AND INFERTILITY VIRTUAL VISIT PROGRESS NOTE SERVICE DATE: 11/23/2023 SERVICE TIME: 9:09 AM NAME: Nelli Steward VIRTUAL VISIT PROGRESS NOTE This is a [...] visit. 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 Reviewed IUI scheduling and IUI procedure. Plan: natural cycle IUI-D timed with OPK. Sign IUI consent at earliest convenience. Andressa Abraham APRN.COLD MILL OPERATOR November 23, 2023 9:09 AM I spent a total of 25 minutes on the date of the service which included preparing to see the patient, [id number] patient care, completing clinical documentation, obtaining and/or [...] grammatical and typographical errors missed in proofreading. PROGEST SERPL-MCNC Collected: 4 2:31 PM Status: F Source: [facility] Order Comment: Specimen Type : BLOOD SPECIMEN Ordering Facility: [facility] Address: [address] [place] [address] TYPE CODE TESTS RESULT OUT OF RANGE REFERENCE UNITS LAB 2839-9(INC) Progest SerPl-mCnc 7.4 See comment ng/mL Result Comment: Menstrual Cy dez Progesterone Reference Ranges: Follicular: <1.0 ng/mL Ovulation: <12.1 ng/mL Luteal: 1.8 to 23.9 ng/mL. Progesterone Reference Ranges vary by gestational period: First Trimester: 11.0 to 44.3 ng/mL Second Trimester: 25.4 to 83.3 ng/mL Third Trimester: 58.7 to 214 ng/mL Post menopausal Progesterone: <0.5 ng/mL Reference: 1. Progesterone (Progesterone III) [package insert V 1.0 Berm[place]ian]. Jerry [employer], [place], [place]. December 2014. Performed By: #### 2839-9 ## ## [facility] CLIA [id number] [address] [place] [address] [place] OF [place] LEXUSN Observed: 10/12/2023 12:00 AM Status: COMPLETED Source: [facility] Telephone (REIBD) PAULINENELLI ([id number]) 1990 F Date Time Provider Department 10/12/23 ANDRESSA ABRAHAM REPEDRO During your visit today, we recorded the [...] peak on her opk 10-10-23 last period 24 Needs progesterone order I advised she goes in 6-8 days from positive opk not on fertility meds Laura Roque RN October 12, 2023 12:54 PM Allergies As of Date: 10/12/2023 (No Known Allergies) Date Reviewed: 09/11/2023 Reviewed by: Andressa Abraham, SUPPLIER DIVERSITY DIRECTOR.COLD MILL OPERATOR - Fully Assessed Reason for Visit: +ovulation test SatANDSund d14 AND 15 partner calling [Other] Primary Visit Diagnosis:Female infertility [N97.9] Order(s):PROGESTERONE [SQPROG] Order #: [id number] FUTURE Prescriptions as of 10/12/2023 - vit/iron fum/folic ac ( 1 + 1 ORAL) Take by mouth. - mv-min/iron/folic/calcium/vitK (WOMEN'S MULTIVITAMIN ORAL) Take by mouth. - BIOTIN ORAL Take by mouth once daily. - levonorgestrel (MIRENA) 20 mcg/24 hr IUD 1 Each by INTRAUTERINE route one time only. Problem List As Of Date: 10/12/2023 (None) Encounter Status:Closed by JESSI BAIRD on 10/12/23 PROGRESS Observed: 09/11/2023 8:08 AM Status: COMPLETED Source: [facility] ID: [id number] Author: ANDRESSA ABRAHAM APRN.COLD MILL OPERATOR Service: ? Author Type: Nurse Practitioner Type: Progress Notes Filed: 09/15/2023 16:56 Note Text: REPRODUCTIVE ENDOCRINOLOGY AND INFERTILITY DONOR SPERM FOLLOW UP SERVICE DATE: 09/11/2023 SERVICE TIME: 8:08 AM NAME: Nelli Steward Persons Present: Marlin Reason for visit: donor [...] call in for a blood test. LMP 08/04, +OPK cycle day 12 - 26 day long cycle LMP 08/29 Treatment plan: pending - likely natural cycle/IUI. [...] favorite donors - send to me via SinDelantal.Mx to confirm Confirmed best vial type to order: IUI/prewashed Will need to follow up to firm up treatment plan and review IUI scheduling instructions. Andressa Abraham APRN.COLD MILL OPERATOR September 11, 2023 8:08 AM I spent a total of 50 minutes on the date of the service which included preparing to see the patient, [id number]-[id number] patient care, completing clinical documentation, obtaining and/or [...] grammatical and typographical errors missed in proofreading. AMINA Observed: 09/11/2023 8:00 AM Status: COMPLETED Source: [facility] Office Visit (REIBD) NELLI STEWARD ([id number]) 1990 F Date Time Provider Department 09/11/23 8:00 AM ANDRESSA ABRAHAM REIBJulio During your visit today, we recorded the following information about you: Andressa Abraham APRN.COLD MILL OPERATOR 09/15/2023 4:56 PM Signed REPRODUCTIVE ENDOCRINOLOGY AND INFERTILITY DONOR SPERM FOLLOW UP SERVICE DATE: 09/11/2023 SERVICE TIME: 8:08 AM NAME: Nelli Steward Persons Present: Marlin Reason for visit: donor [...] 12 - 26 day long cycle LMP 08/29 Treatment plan: pending - likely natural cycle/IUI. [...] favorite donors - send to me via SinDelantal.Mx to confirm Confirmed best vial type to order: IUI/prewashed Will need to follow up to firm up treatment plan and review IUI scheduling instructions. Andressa Abraham APRN.COLD MILL OPERATOR September 11, 2023 8:08 AM I spent a total of 50 minutes on the date of the service which included preparing to see the patient, [id number]-[id number] patient care, completing clinical documentation, obtaining and/or [...] grammatical and typographical errors missed in proofreading. Andressa Abraham APRN.COLD MILL OPERATOR 09/11/2023 8:26 AM Addendum REPRODUCTIVE ENDOCRINOLOGY AND INFERTILITY DONOR SPERM HANDOUT [...] that time to confirm your ovulation status. - ____ Sperm Ordering Instructions Sperm Shah You have the opportunity to choose your donor sperm sample from any sperm bank. You will be responsible for ordering the sample yourself and arranging for shipment to [facility]. Sperm Bank [place] [facility] Sperm Bank [facility] ([facility] [place] [place] [facility] Xy[facility] Let us [...] (with a backup), please send me a SinDelantal.Mx message titled ?Sperm Donor Choice.? Include the name of the sperm bank and the donor profile numbers. I will review the donors? clinical information and test results and confirm it is a good choice with your test results. Once you get this confirmation from me, you can order your vials. Types of Sperm Vials Sperm can be prepared and purchased in different vial types from sperm shah. IUI (Intrauterine insemination) or prewashed vial. These [...] in the office. Mailing address: Attention: Flavia Crowe [address] [place] [address], [address] [place] [address] Storage at the [facility] is available. Fees are yearly and only start once you are not actively trying. Please ask the financial team ([phone]) for current cost information. Insurance Authorization/Financial Clearance [...] your insurance covers IUI (or if you don?t know if your insurance covers IUI), contact the office once your checklist is complete to initiate authorization for ?donor sperm insemination.? The office will need to submit authorization [...] of your period and let the front office developer know you will be doing ?donor sperm insemination.? The financial office will contact you to collect payment early in your cycle. You will not be able to schedule an IUI unless you have made payment. We want to help make your experience as smooth as possible. Please do not hesitate to call if you should have any questions. Contact Referring Provider: SELF [[id number]] Allergies As of Date: 09/11/2023 (No Known Allergies) Date Reviewed: 09/11/2023 Reviewed by: Andressa Abraham APRN.COLD MILL OPERATOR - Fully Assessed Primary Visit Diagnosis:Encounter for fertility planning [Z31.89] Prescriptions as of 09/15/2023 - vit/iron fum/folic ac ( 1 + 1 ORAL) Take by mouth. - mv-min/iron/folic/calcium/vitK (WOMEN'S MULTIVITAMIN ORAL) Take by mouth. - BIOTIN ORAL Take by mouth once daily. - levonorgestrel (MIRENA) 20 mcg/24 hr IUD 1 Each by INTRAUTERINE route one time only. Problem List As Of Date: 09/11/2023 (None) Other instructions from your clinician: REPRODUCTIVE ENDOCRINOLOGY AND INFERTILITY DONOR SPERM HANDOUT [...] your ovulation status. Sperm Ordering Instructions Sperm Shah You have the opportunity to choose your donor sperm sample from any sperm bank. You will be responsible for ordering the sample yourself and arranging for shipment to [facility]. Sperm Bank [place] [facility] Sperm Bank [facility] (The S[facility]) [place] [facility] tex [facility] Let us know the sperm bank [...] (with a backup), please send me a SinDelantal.Mx message titled ?Sperm Donor Choice.? Include the name of the sperm bank and the donor profile numbers. I will review the donors? clinical information and test results and confirm it is a good choice with your test results. Once you get this confirmation from me, you can order your vials. Types of Sperm Vials Sperm can be prepared and purchased in different vial types from sperm shah. IUI (Intrauterine insemination) or prewashed vial. These [...] in the office. Mailing address: Attention: Flavia Crowe [address] [place] [address], [address] [place] [address] Storage at the [facility] is available. Fees are yearly and only start once you are not actively trying. Please ask the financial team ([phone]) for current cost information. Insurance Authorization/Financial Clearance [...] your insurance covers IUI (or if you don?t know if your insurance covers IUI), contact the office once your checklist is complete to initiate authorization for ?donor sperm insemination.? The office will need to submit authorization [...] of your period and let the front office developer know you will be doing ?donor sperm insemination.? The financial office will contact you to collect payment early in your cycle. You will not be able to schedule an IUI unless you have made payment. We want to help make your experience as smooth as possible. Please do not hesitate to call if you should have any questions. Contact Encounter Status:Closed by ANDRESSA ABRAHAM on 09/15/23 ALLERGIES DATE TYPE / CODE NAME / CODE REACTION SEVERITY SOURCE /[id number](SNOMED CT) No Known Allergies [facility] Drug Class/[id number](SNO MED CT) NO KNOWN ALLERGIES [facility] ENCOUNTERS ADMIT/DISCHARGE ACCOUNT NUMBER ADMITTING ENCOUNTER CLASS LOCATION SOURCE 08/08/2024/08/09/19 [id number] Ambulatory Building:[facility] 07/25/2024/07/26/19 25 [id number] Ambulatory Building:[facility] 07/11/2024/07/12/19 25 [id number] Ambulatory Building:[facility] 07/11/2024/07/12/19 25 [id number] Ambulatory Building:[facility] 06/22/2024/06/23/19 25 [id number] Ambulatory Building:[facility] 06/01/2024/06/02/19 25 [id number] [facility] 05/31/2024/06/01/19 25 [id number] Ambulatory Building:[facility] 04/19/2024/04/19/19 25 [id number] Ambulatory Building:[facility] 03/11/2024/03/11/20 24 [id number] Ambulatory Building:[facility] 02/28/2024/02/28/20 24 [id number] Ambulatory CC Deonldi ng:CC Oram: Exam 1 [facility] 02/09/2024/02/09/20 24 [id number] [facility] 01/21/2024/01/21/20 24 [id number] [facility] 01/20/2024/01/20/20 24 [id number] [facility] 01/19/2024/01/19/20 24 [id number] [facility] 01/02/2024/01/02/20 24 [id number] [facility] 01/02/2024/01/02/20 24 [id number] [facility] 12/30/2023/12/30/19 24 [id number] [facility] 12/28/2023/12/28/19 24 [id number] Ambulatory Building:[facility] 12/05/2023/12/05/19 24 [id number] [facility] 12/05/2023/12/05/19 24 [id number] [facility] 12/04/2023/12/04/19 24 [id number] [facility] 11/23/2023/11/23/19 24 [id number] [facility] 10/16/2023/10/16/19 24 [id number] [facility] 09/11/2023/09/11/19 [id number] [facility] PAYERS ENCOUNTER GUARANTOR PAYER SUBSCRIBER SOURCE 08/08/2024 NELLI WHITLEYB: [place] [address]Gxy: (HP) Primary Insurance:BCBSPoli cy Number: [id number] ctive Date:2022-10-28 NELLI WHITLEYB: [id number] [place] [address] [facility] EPIC 07/25/2024 NELLI WHITLEYB: [place] [address]Pmt: (HP) Primary Insurance:BCBSPoli cy Number: [id number] ctive Date:2022-10-28 NELLI WHITLEYB: [id number] [place] [address] [facility] EPIC 07/11/2024 NELLI KILPATRICK: [place] [address]Xkx: (HP) Primary Insurance:BCBSPoli cy Number: [id number] ctive Date:2022-10-28 NELLI KILPATRICK: [id number] [place] [address] [facility] EPIC 07/11/2024 NELLI KILPATRICK: [place] [address]Sgv: (HP) Primary Insurance:BCBSPoli cy Number: [id number] ctive Date:2022-10-28 NELLI KILPATRICK: [id number] [place] [address] [facility] EPIC 06/22/2024 NELLI WHITLEYB: [place] [address]Rja: (HP) Primary Insurance:BCBSPoli cy Number: [id number] ctive Date:2022-10-28 NELLI WHITLEYB: [id number] [place] [address] [facility] 06/01/2024 Primary Insurance:BLUE CARD PPO OOSPolicy Number: [id number] ctive Date:1474-47-90Kph n Name:Klaudia KILPATRICK: [id number] [address] [place], [facility] 05/31/2024 NELLI WHITLEYB: [place] [id number]: (HP) Primary Insurance:BCBSPoli cy Number: [id number] ctive Date:2022-10-28 NELLI WHITLEYB: [id number] [address] [place], [facility] [facility] 04/19/2024 NELLI WHITLEYB: [address] [place], [facility]Hug: (HP) Primary Insurance:BCBSPoli cy Number: [id number] ctive Date:2022-10-28 NELLI KILPATRICK: [id number] [place] [address] [facility] 03/11/2024 NELLI KILPATRICK: [place] [address]Wgv: (HP) Primary Insurance:BCBSPoli cy Number: [id number] ctive Date:2022-10-28 NELLI WHITLEYB: [id number] [place] [address] [facility] 02/28/2024 NELLI KILPATRICK: Kevin CHILEL RDTel: [phone] (HP) Primary Insurance:AnthemPo licy Number: [id number] Date:[id number] [address] [place] [address]YH: NELLI ARREDONDO [facility] [facility] Primary Insurance:BLUE CARD PPO OOSPolicy Number: [id number] ctive Date:0188-32-82Mab n Name:Klaudia KILPATRICK: [id number] [place] [address] [facility] 01/21/2024 Primary Insurance:BLUE CARD PPO OOSPolicy Number: [id number] ctive Date:5061-62-03Bgy n Name:Klaudia KILPATRICK: [id number] [place] [address] [facility] 01/20/2024 Primary Insurance:BLUE CARD PPO OOSPolicy Number: [id number] ctive Date:5310-77-62Xgc n Name:Klaudia KILPATRICK: [id number] [place] [address] [facility] 01/19/2024 Primary Insurance:BLUE CARD PPO OOSPolicy Number: [id number] ctive Date:4475-97-05Cnj n Name:Klaudia KILPATRICK: [id number] [place] [address] [facility] 12/30/2023 Primary Insurance:BLUE CARD PPO OOSPolicy Number: [id number] ctive Date:3555-94-01Tnk n Name:Klaudia KILPATRICK: [id number] [place] [address] [facility] 12/28/2023 NELLI KILPATRICK: [place] [address]Fwa: () Primary Insurance:BCBSPoli cy Number: [id number] ctive Date:2022-10-28 WANDA ANGIB: [id number] [place] [address] [facility] 12/04/2023 Primary Insurance:BLUE CARD PPO OOSPolicy Number: [id number] ctive Date:8945-36-98Isx n Name:Klaudia KILPATRICK: [id number] [place] [id number] [facility] 11/23/2023 Primary Insurance:BLUE CARD PPO OOSPolicy Number: [id number] ctive Date:8226-08-70Iuq n Name:Klaudia KILPATRICK: [id number] [place] [id number] [facility] 10/16/2023 Primary Insurance:BLUE CARD PPO OOSPolicy Number: [id number] ctive Date:6152-27-11Srp n Name:Klaudia KILPATRICK: [id number] [place] [id number] [facility] 09/11/2023 Primary Insurance:BLUE CARD PPO OOSPolicy Number: [id number] ctive Date:5564-75-27Sux n Name:Klaudia KILPATRICK: [id number] [place] [id number] [facility]
--- NOTE | 2024-08-20 13:09 | US_ITS ---
[place] [id number] Patient Name: EDUAR CARPENTER MRN: [id number] date: 1990 Sex: F Assigned Patient Location: [facility] Current Patient Location: [facility] Accession/Order Number: [id number] Exam Date: 08/20/2024 13:28 Report Date: 08/20/2024 13:30 At the request of: NINA ALONSO DO Procedure: US OB BPP w non-stress US OB BPP w non-stress 08/20/2024 1:26 PM SIGNS AND SYMPTOMS: ^Gestational diabetes mellitus PROTOCOL: Grayscale and color Doppler sonographic images of the gravid uterus COMPARISON: None FINDINGS: Estimated gestational age: 35 weeks 0 days heart rate: 161 bpm. Amniotic fluid volume: 19.51 cm. Biophysical profile: movements: 2/2. tone: 2/2. breathing movements: 2/2 Amniotic fluid volume: 2/2. US/US OB BPP w non-stress IMPRESSION: Biophysical profile score: 8/8 heart rate: 161 bpm. Amniotic fluid volume: 19.51 cm. Impression dictated by: Gunnar Blake M.D. 08/20/2024 1:30 PM Dictation Location: [facility] Electronically authenticated by: [id number] Y Date: 08/20/2024 13:30
[2024-08-20 13:27] VITALS: BP 125/63; PULSE 89
[2024-08-20 13:29] VITALS: TEMP 36
== END 2024-08-20 14:22 | disposition home or self-care (01) ==
LOC: US 13:05 → FBC 13:07
PROVIDERS: PCP Student in an Organized Health Care Education/Training Program; Visit Provider Obstetrics & Gynecology
DX: O24.419 Gestational diabetes mellitus in pregnancy, unspecified control (principal); Z3A.35 35 weeks gestation of pregnancy
CPT/HCPCS: 76818

== ENCOUNTER 2024-08-24 13:01 | Outpatient (OUT) | payer BC, SELFPAY ==
--- OUTSIDE RECORDS SUMMARY | 2024-08-23 14:40 | XMS_ITS | Encounter Summary ---
Author Organization [facility] Address [address] [place] [address] Care Team Providers Care Robotics Technologist Name Role Phone Karen Bolanos MD Primary Care Provider [phone] Reason for Visit * Reason Comments Routine Visit Encounter Details Date Type Department Care Team (Late st Contact Info) Description 08/23/2024 2:40 PM EDT Routine [facility] [address] [facility] [place] [phone] Andrea Prieto, [address] [facility] [address] [place], [place] [id number] 35 weeks gestation of ; Third trimester [...] to check FSBS. Blood Glucose Monitoring Suppl (Zumbl Glucometer) w/Device kit 1 kit, Does not [...] episode of recurrent major depressive disorder (HCC) ([facility]/HCC) 12/28/2023 Restless leg 12/28/2023 Resolved [...] nursing note reviewed. Exam conducted with a pellet machine operator present. Vitals: Estimated body mass index is [...] AM EDT Routine [facility] BCP OB [address] [facility] [place] [address] Karyna Craig PA [address] [facility] [place] [address] documented as of this encounter Goals [...] documented as of this encounter Care Teams Robotics Technologist Relationship Specialty Start Date End Date Karen Bolanos MD [address] [place] [address] PCP - General Family Medicine 11/10/22 documented as of this encounter
--- OUTSIDE RECORDS SUMMARY | 2024-08-24 13:04 | XMS_ITS | Encounter Summary ---
Author Organization [facility] Address [address] [place] [address] Care Team Providers Care Battery Checker Name Role Phone Karen Bolanos MD Primary Care Provider [phone] Encounter Details Date Type Department Care Team (Late st Contact Info) Description 07/12/2024 Abstract [facility] BCP OB [address] [facility] [place] [address] Karyna Craig PA [address] [facility] [address] [place], [facility]11 Social History Tobacco Use Types Packs/Day Years [...] PM EDT documented as of this encounter Plan of Treatment Upcoming Encounters Date Type Department Care Team (Late st Contact Info) Description 08/31/2024 11:20 AM EDT Routine [facility] BCP OB [address] [facility] [place] [address] Karyna Craig PA [address] [facility] [place] [address] documented as of this encounter Goals Goal Patient Goal Type Associated Problems Recent Progress Patient-Stated? Author Reminders Care Plan OB Reminders No Open Scheduling, Background documented as of this encounter Visit Diagnoses Not on filedocumented in this encounter Additional Health Concerns Active Problems Noted Date Diagnosed Date OB Reminders 03/28/2024 documented as of this encounter Care Teams Battery Checker Relationship Specialty Start Date End Date Karen Bolanos MD [address] [place] [address] PCP - General Family Medicine 11/10/22 documented as of this encounter
--- OUTSIDE RECORDS SUMMARY | 2024-08-24 13:05 | XMS_ITS | Encounter Summary ---
Author Organization [facility] Address [address] [place] [address] Care Team Providers Care Hemodialysis Lab Technician Name Role Phone Karen Bolanos MD Primary Care Provider [phone] Karen Bolanos MD Unavailable [phone] Encounter Details Date Type Department Care Team (Late st Contact Info) Description 03/11/2024 Abstract [facility] [address] [place] [address] Andrea Prieto, [address] [place], [place] [id number] Social History Tobacco Use Types Packs/Day Years [...] AM EDT Routine [facility] BCP OB [address] [facility] [place] [phone] Karyna Craig PA [address] [facility] [place] [address] documented as of this encounter Visit Diagnoses Not on filedocumented in this encounter Care Teams Hemodialysis Lab Technician Relationship Specialty Start Date End Date Karen Bolanos MD [address] [place] [address] PCP - General Family Medicine 11/10/22 Karen Bolanos MD [address] [place] [address] PCP - Nish Medina 12/28/22 5 documented as of this encounter
--- OUTSIDE RECORDS SUMMARY | 2024-08-24 13:05 | XMS_ITS | Encounter Summary ---
Author Organization [facility] Address [address] [place] [address] Care Team Providers Care Grove Worker Name Role Phone Karen Bolanos MD Primary Care Provider Encounter Details Date Type Department Care Team (Late st Contact Info) Description 08/19/2024 Telephone [facility] [address] [place] [address] Andrea Prieto, DO [address] [place], [facility]11 Social History Tobacco Use Types Packs/Day Years [...] PM EDT documented as of this encounter Miscellaneous Notes * Telephone Encounter - Jacqui Ferguson LPN - 08/19/2024 11:16 AM EDT Patient was called and she was advised per Dr reviewing her Glucose results that we do need to havethese more consistent and 4 times a day so we can proceed with treatment. Patient was advised once we have the numbers reflecting 4 times a day in email we will provide to Dr and we will reach out with plan of care for her. Patient voiced understanding in this. documented in this encounter Plan of Treatment Upcoming Encounters Date Type Department Care Team (Late st Contact Info) Description 08/31/2024 11:20 AM EDT Routine [facility] BCP OB [address] [facility] [place] [phone] Karyna Craig PA [address] [facility] [place] [address] documented as of this encounter Goals Goal Patient Goal Type Associated Problems Recent Progress Patient-Stated? Author Reminders Care Plan OB Reminders No Open Scheduling, Background documented as of this encounter Visit Diagnoses Not on filedocumented in this encounter Additional Health Concerns Active Problems Noted Date Diagnosed Date OB Reminders 03/28/2024 documented as of this encounter Care Teams Grove Worker Relationship Specialty Start Date End Date Karen Bolanos MD [address] [place] [address] PCP - General Family Medicine 11/10/22 documented as of this encounter
--- OUTSIDE RECORDS SUMMARY | 2024-08-24 13:05 | XMS_ITS | Encounter Summary ---
Author Organization [facility] Address [address] [place] [address] Care Team Providers Care Nib Adjuster Name Role Phone Karen Bolanos MD Primary Care Provider [phone] Encounter Details Date Type Department Care Team (Late st Contact Info) Description 08/14/2024 Clinisync Result Encounter [facility] External Department Unsolicited Nina Prieto, DO [address] [place] [address] Social History Tobacco Use Types Packs/Day Years [...] EDT Routine [facility] BCP OB [address] [place] [address] Karyna Craig PA [address] [facility] [address] [place], [facility] documented as of this encounter Goals Goal Patient Goal Type Associated Problems Recent Progress Patient-Stated? Author Reminders Care Plan OB Reminders No Open Scheduling, Background documented as of this encounter Procedures Procedure Name Priority Date/Time Associated Diagnosis Comments US OB GROWTH 08/14/2024 9:06 AM EDT documented in this encounter Results * US OB GROWTH (08/14/2024 9:06 AM EDT) Anatomical Region Laterality Modality Other 08/14/2024 9:06 AM EDT Narrative 08/14/2024 9:09 AM EDT [address] [address] Ultrasound Report Signed Patient: EDUAR CARPENTER MR#: [id number] : 1990 Acct:[id number] Age/Sex: 34 / F ADM Date: 08/13/24 Loc: US Attending Dr: Nina Prieto D.O. Ordering Physician: Nina Prieto D.O. Date of Service: 08/13/24 Procedure(s): US OB growth Accession Number(s): [id number] cc: Nina Prieto D.O.; NORBERTO BOLANOS [address] [address] Patient Name: EDUAR CARPENTER MRN: [id number] date: 1990 Sex: F Assigned Patient Location: US Current Patient Location: Accession/Order Number: [id number] Exam Date: 08/14/2024 09:01 Report Date: 08/14/2024 09:06 At the request of: NINA PRIETO DO Procedure: US OB growth US [...] Blake M.D. 08/14/2024 9:06 AM Dictation Location: [place] [address] Electronically authenticated by: [id number] Y Date: 08/14/2024 09:06 Dictated By: Gunnar Blake M.D. Signed By: 08/14/24908 DD/ 5 TD/TT: Auto Service Dispatcher: Procedure Note Radiology, Radiologist, MD - 08/14/2024 [place] [address] Ultrasound Report Signed Patient: EDUAR CARPENTER KMR#: [id number] : 1990Acct:[id number] Age/Sex: 34 / FADM Date: 08/13/24 Loc: US Attending Dr: Nina Prieto D.O. Ordering Physician: Nina Prieto D.O. Date of Service: 08/13/24 Procedure(s): US OB growth Accession Number(s): [id number] cc: Nina Prieto D.O.; NORBERTO BOLANOS [place] [id number] Patient Name: EDUAR CARPENTER MRN: [id number] date: 1990 Sex: F Assigned Patient Location: US Current Patient Location: Accession/Order Number: [id number] Exam Date: 08/14/2024 09:01 Report Date: 08/14/2024 09:06 At the request of: NINA PRIETO DO Procedure: US OB growth US OB growth 08/13/2024 1:32 PM SIGNS AND SYMPTOMS: GESTATIONAL DIABETES MELLITUS O24.419 COMPARISON: None. TECHNIQUE: Limited pelvic ultrasound using transvesical sonography. FINDINGS: An intrauterine is identified. The visualized fetus has anestimated gestational age of 36 weeks and 2 days . A heart rate is identified at 143 bpm. A normal amount of amniotic fluid is present. The amniotic fluidindex is 20.16 cm. There is no evidence for placenta previa or subchorionic hemorrhage. Pelvic survey reveals no gross abnormalities. Biophysical profile: movements: 2/2 tone: 2/2 breathing movements: 2/2 Amniotic fluid volume: 2/2 US/US OB growth IMPRESSION: Single live IUP with an estimated gestational age of 36 weeks and 2 dayswith a normal heart rate. Biophysical profile score: 8/8 Impression dictated by: Gunnar Blake M.D. 08/14/2024 9:06 AM Dictation Location: [place] [address] Electronically authenticated by: [id number] Y Date: 509:06 Dictated By: Gunnar Blake M.D. Signed By:08/14/24 0909 DD/ 5 TD/TT: Auto Service Dispatcher: Nina Prieto DO [facility] Final Result documented in this encounter Visit Diagnoses Not on filedocumented in this encounter Additional Health Concerns Active Problems Noted Date Diagnosed Date OB Reminders 03/28/2024 documented as of this encounter Care Teams Nib Adjuster Relationship Specialty Start Date End Date Karen Bolanos MD [address] [place] [address] PCP - General Family Medicine 11/10/22 documented as of this encounter
--- OUTSIDE RECORDS SUMMARY | 2024-08-24 13:05 | XMS_ITS | Encounter Summary ---
Author Organization [facility] Address [facility] [place] [address] Care Team Providers Care Government Clerk Name Role Phone Unavailable Primary Care Provider Unavailabl e Source Comments In the event this information is protected by the Federal Confidentiality of Alcohol and Drug AbusePatient Records regulations: The Federal rules restrict any use of the information to criminally investigate or prosecute any alcohol or drug abuse patient.[facility] Encounter Details Date Type Department Care Team (Latest Contact Info) Description 06/15/2023 Patient Msg Reproductive Endocrinology Infertility [address] [place] [address] Andressa Abraham APRN.BUSINESS BANKING OFFICER [address] [place] [address] Donor Sperm Handout Social History Tobacco Use Types Packs/Day Years Used Date Smoking Tobacco: Never Smokeless Tobacco: Never Alcohol Use Standard Drinks/Week Comments Yes 0 (1 standard drink = 0.6 oz pur e alcohol) social Area Deprivation Index Answer Date Abhishek rded National Score (1-100), lower number is lower ri sk 71 06/08/2023 State Score (1-10), lower number is lower risk 5 06/08/2023 Data from: https://www.neighborhoodatlas.medicine.[facility].edu/. Last address used for calculation [address] 06/08/2023 Comments No Sex and Gender Information Value Date Recorded Sex Assigned at Female 06/12/2023 11:27 AM EDT Legal Sex Female 9:45 AM EST Gender Identity Female 06/12/2023 11:27 AM EDT Sexual Orientation Lesbian or [place] 06/12/2023 11 :27 AM EDT documented as of this encounter Plan of Treatment Not on file documented as of this encounter Visit Diagnoses Not on filedocumented in this encounter
--- OUTSIDE RECORDS SUMMARY | 2024-08-24 13:05 | XMS_ITS | Encounter Summary ---
Author Organization [facility] Address [address] [place] [address] Care Team Providers Care Press Room Supervisor Name Role Phone Karen Bolanos MD Primary Care Provider [phone] Karen Bolanos MD Unavailable [phone] Encounter Details Date Type Department Care Team (Late st Contact Info) Description 03/14/2024 Abstract [facility] [address] [place] [address] Andrea Prieto, [address] [address] [place], [place] [id number] Social History Tobacco Use Types Packs/Day Years [...] AM EDT Routine [facility] BCP OB [address] [facility] [phone] Karyna Craig PA [address] [facility] [place] [address] documented as of this encounter Visit Diagnoses Not on filedocumented in this encounter Care Teams Press Room Supervisor Relationship Specialty Start Date End Date Karen Bolanos MD [address] [place] [address] PCP - General Family Medicine 11/10/22 Karen Bolanos MD [address] [place] [address] PCP - Nish Medina 12/28/22 5 documented as of this encounter
--- OUTSIDE RECORDS SUMMARY | 2024-08-24 13:05 | XMS_ITS | Encounter Summary ---
Author Organization [facility] Address [address] [place] [address] Care Team Providers Care Coremaking Supervisor Name Role Phone Karen Bolanos MD Primary Care Provider [phone] Encounter Details Date Type Department Care Team (Late st Contact Info) Description 08/20/2024 Clinisync Result Encounter [facility] External Department Unsolicited Nina Prieto, DO [address] [place] [address] Social History Tobacco Use Types [...] BCP OB [address] [place] [address] Karyna Craig PA [address] [facility] [address] [place], [place] [address] documented as of this encounter Goals Goal Patient Goal Type Associated Problems Recent Progress Patient-Stated? Author Reminders Care Plan OB Reminders No Open Scheduling, Background documented as of this encounter Procedures Procedure Name Priority Date/Time Associated Diagnosis Comments US OB BPP W NON-STRESS 08/20/2024 1:30 PM EDT documented in this encounter Results * US OB BPP W NON-STRESS (08/20/2024 1:30 PM EDT) Anatomical Region Laterality Modality Other 08/20/2024 1:30 PM EDT Narrative 08/20/2024 1:32 [place] [address] Ultrasound Report Signed Patient: EDUAR CARPENTER MR#: [id number] : 1990 Acct:[id number] Age/Sex: 34 / F ADM Date: 08/20/24 Loc: [place] [address]: Nina Prieto D.O. Ordering Physician: Nina Prieto D.O. Date of Service: 08/20/24 Procedure(s): US OB BPP w non-stress Accession Number(s): [id number] cc: Nina Prieto D.O.; NORBERTO BOLANOS [address] [address] Patient Name: EDUAR CARPENTER MRN: [id number] date: 1990 Sex: F Assigned Patient Location: [facility] Current Patient Location: [facility] Accession/Order Number: [id number] Exam Date: 08/20/2024 13:28 Report Date: 08/20/2024 13:30 At the request of: NINA PRIETO DO Procedure: US OB BPP w non-stress US OB BPP w non-stress 08/20/2024 1:26 PM SIGNS AND SYMPTOMS: Gestational diabetes mellitus PROTOCOL: Grayscale and color Doppler sonographic images of the gravid uterus COMPARISON: None FINDINGS: Estimated gestational age: 35 weeks 0 days heart rate: 161 bpm. Amniotic fluid volume: 19.51 cm. Biophysical profile: movements: 2/2. tone: 2/2. breathing movements: 2/2 Amniotic fluid volume: 2/2. US/US OB BPP w non-stress IMPRESSION: Biophysical profile score: 8/8 heart rate: 161 bpm. Amniotic fluid volume: 19.51 cm. Impression dictated by: Gunnar Blake M.D. 08/20/2024 1:30 PM Dictation Location: [place] [address] Electronically authenticated by: [id number] Y Date: 08/20/2024 13:30 Dictated By: Gunnar Blake M.D. Signed By: 08/20/24 133 DD/ 133 TD/TT: Green Chain Offbearer: Procedure Note Radiology, Radiologist, MD - 08/20/2024 [place] [address] Ultrasound Report Signed Patient: EDUAR CARPENTER KMR#: [id number] : 1990Acct:[id number] Age/Sex: 34 / FADM Date: 08/20/24 Loc: [facility] 250-[address]: Nina Prieto D.O. Ordering Physician: Nina Prieto D.O. Date of Service: 08/20/24 Procedure(s): US OB BPP w non-stress Accession Number(s): [id number] cc: Nina Prieto D.O.; NORBERTO BOLANOS [place] [id number] Patient Name: EDUAR CARPENTER MRN: [id number] date: 1990 Sex: F Assigned Patient Location: [facility] Current Patient Location: [facility] Accession/Order Number: [id number] Exam Date: 08/20/2024 13:28 Report Date: 08/20/2024 13:30 At the request of: NINA PRIETO DO Procedure: US OB BPP w non-stress US OB BPP w non-stress 08/20/2024 1:26 PM SIGNS AND SYMPTOMS: Gestational diabetes mellitus PROTOCOL: Grayscale and color Doppler sonographic images of the graviduterus COMPARISON: None FINDINGS: Estimated gestational age: 35 weeks 0 days heart rate: 161 bpm. Amniotic fluid volume: 19.51 cm. Biophysical profile: movements: 2/2. tone: 2/2. breathing movements: 2/2 Amniotic fluid volume: 2/2. US/US OB BPP w non-stress IMPRESSION: Biophysical profile score: 8/8 heart rate: 161 bpm. Amniotic fluid volume: 19.51 cm. Impression dictated by: Gunnar Blake M.D. 08/20/2024 1:30 PM Dictation Location: [facility] Electronically authenticated by: [id number] Y Date: 3:30 Dictated By: Gunnar Blake M.D. Signed By:08/20/24 1332 DD/ 1330 TD/TT: Green Chain Offbearer: Nina Prieto DO [facility] Final Result documented in this encounter Visit Diagnoses Not on filedocumented in this encounter Additional Health Concerns Active Problems Noted Date Diagnosed Date OB Reminders 03/28/2024 documented as of this encounter Care Teams Coremaking Supervisor Relationship Specialty Start Date End Date Karen Bolanos MD [address] [place] [address] PCP - General Family Medicine 11/10/22 documented as of this encounter
--- OUTSIDE RECORDS SUMMARY | 2024-08-24 13:05 | XMS_ITS | Clinical Summary ---
Author Organization [facility] Healthcare Address [address] [place] [address] Care Team Providers Care Ultrasonic Tester Name Role Phone Karen Bolanos MD Primary Care Provider [phone] Allergies No known active allergies Medications clindamycin (Cleocin-T) 1 % lotionIndicatio ns:Other acne Apply topically 2 (two) times a day 60 mL 04/19/19 25 026 Active Alcohol Swabs (Alcohol Prep Pad) 70 % padsIndications :Gestational diabetes mellitus (GDM), antepartum, gestational diabetes method of control unspecified,Roz vated glucose tolerance test Apply 1 Pad topically Daily Use four times daily to check FSBS. 150 each 3 07/13/19 25 Active Blood Glucose Monitoring Suppl (D-Care Glucometer) w/Device kitIndications: Gestational diabetes mellitus (GDM), antepartum, gestational diabetes method of control unspecified,Roz vated glucose tolerance test 1 kit Daily Use four times daily to check FSBS. In the morning prior to breakfast & 1 hour after each meal for a total of 4times daily. 1 kit 07/13/19 25 026 Active omeprazole (PriLOSEC) [address] capsuleIndicati ons:Gastroesoph ageal Reflux Disease,Heartbu rn Take 1 capsule (20 mg) by mouth in the morning. Take before meals. Do not crush or chew. 30 capsule 3 08/25/19 25 025 Active Lancets Ultra Thin miscIndications :Gestational diabetes mellitus (GDM), antepartum, gestational diabetes method of control unspecified,Roz vated glucose tolerance test 1 each by In Vitro route Daily Use to check FSBS four times daily 150 each 3 07/13/19 25 025 Glucose Blood (Blood Glucose Test) stripIndication s:Gestational diabetes mellitus (GDM), antepartum, gestational diabetes method of control unspecified,Roz vated glucose tolerance test 1 strip by In Vitro route Daily Use in the morning prior to breakfast, 1 hour after each meal for a total of 4times daily. 150 strip 3 07/13/19 25 025 omeprazole (PriLOSEC) [address] capsuleIndicati ons:Gastroesoph ageal Reflux Disease,Heartbu rn Take 1 capsule (20 mg) by mouth in the morning. Take before meals. Do not crush or chew. 30 capsule 3 08/24/19 25 025 Discontinued omeprazole (PriLOSEC) [address] capsuleIndicati ons:Gastroesoph ageal Reflux Disease,Heartbu rn Take 1 capsule (20 mg) by mouth in the morning. Take before meals. Do not crush or chew. 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 (HCC) 12/28/2023 Restless leg 12/28/2023 Estimated Date of Delivery Comme nts Yes 09/24/2024 Based on last me nstrual period of 12/19/2023 Encounters Date Type Department Care Team Description 08/24/2024 Telephone [facility] [address] [place] [address] Shanika Rubi MA 08/23/2024 2:40 PM EDT Routine [facility] [place] [address] [place] [address] Nina Prieto DO 35 weeks gestation of ; Third trimester ; Gastroesophageal reflux in 08/23/2024 Bamboo flowsheet [facility] [place] [address] [address] Nina Prieto, DO 08/20/2024 Clinisync Result Encounter [facility] External Department Unsolicited Nina Prieto, DO 08/19/2024 Telephone [facility] OB [address] [place] [address] Nina Prieto, DO 08/14/2024 Clinisync Result Encounter [facility] External Department Unsolicited Nina Prieto, DO 08/14/2024 Clinisync Result Encounter [facility]OM[facility] External Department Unsolicited Nina Prieto, DO 08/09/2024 Abstract [facility] OB [address] [place] [address] Nina Prieto, DO 08/08/2024 2:10 PM EDT Routine [facility] OB [address] [place] [address] Nina Prieto, DO Third trimester ; 33 weeks gestation of ; Gestational diabetes mellitus (GDM), antepartum, gestational diabetes method of control unspecified 08/08/2024 Bamboo flowsheet [facility] OB [address] [place] [address] [place] [address] Nina Prieto, DO 08/01/2024 Telephone [facility] OB [address] [place] [address] [place] [address] Nina Prieto, DO 07/25/2024 10:40 AM EDT Routine [facility] OB [address] [place] [address] [place] [address] Steffanie Gerard, ABDI Third trimester ; 31 weeks gestation of 07/25/2024 Bamboo flowsheet [facility] [address] [facility] [facility] [address] [place] [address] Steffanie Gerard, ABDI 07/12/2024 Abstract [facility] OB [address] [facility] [facility] [address] [place] [address] Karyna Craig PA 07/12/2024 Telephone [facility] OB [address] [facility] [facility] [address] [place] [address] Karyna Craig PA 07/11/2024 11:00 AM EDT Routine [facility] [address] [place] [address] Nina Prieto DO Third trimester ; 29 weeks gestation of ; Gestational diabetes mellitus (GDM), antepartum, gestational diabetes method of control unspecified 07/11/2024 10:30 AM EDT Ancillary Procedure [facility] [address] [place] [address] 07/08/2024 Clinisync Result Encounter [facility]OMS External Department Unsolicited Karyna Craig PA 06/22/2024 1:20 PM EDT Routine [facility] [address] [place] [address] Nina Prieto DO Second trimester ; 26 weeks gestation of ; Diabetes mellitus screening; size inconsistent with dates 06/22/2024 Bamboo flowsheet [facility] [address] [place] [address] Nina Prieto DO 05/31/2024 1:00 PM EST Ancillary Procedure [facility] US [address] [place] [phone] Mass of right breast, unspecified quadrant; Neoplasm of unspecified behavior of breast 05/31/2024 Travel from Last 3 Months Immunizations Immunization Administration Dates Next Due DTaP 02/08/1993, 2,1991,1991 DTaP, Unspecified 02/08/1993, 2,1991,1991 Hep B, Adolescent or Pediatric 12/08/2003 HiB, unspecified 02/08/1993, 2,1991,1991 Hib (HbOC) 02/08/1993, 2,1991,1991 Influenza, injectable, quadrivalent 06/15/2023 Influenza, injectable, quadr ivalent, preservative free 12/10/2016 MMR 09/13/2023,12/08/2003,10/27/1996 Novel [id number], preservative-free 02/16/2009 Polio, Unspecified 02/08/1993,1991, 992 Tetanus toxoid, adsorbed 12/08/2003 Family History Medical History Relation Name Comments Diabetes Maternal Grandmother COPD Mother Relation Name Status Comments Daughter 2 Father Alive Maternal Grandmother Mother Alive Sister 1, healthy Social History Tobacco Use Types Packs/Day Years Used Date Smoking Tobacco: Never Smokeless Tobacco: Never Tobacco Cessation:Counseling Given: Not Answered Alcohol Use Standard Drinks/Week Comments Yes 0 [...] Orientation Lesbian 01/12/2023 5: 14 PM EDT Last Filed Vital Signs Vital Sign Reading Time Taken Comments Blood Pressure 120/78 08/23/2024 3:07 PM EDT Pulse 76 12/28/2023 8:37 AM EDT Temperature 37 C (98.6 F) 12/28/2023 8:37 AM EDT Respiratory Rate - - Oxygen Saturation 98% 12/28/2023 8:37 AM EDT Inhaled Oxygen Concentration - - Weight 102 kg (224 lb 1.9 oz) 08/23/2024 3:07 PM EDT Height 160 cm (5' 3 ) 12/28/2023 8:37 AM EDT Body Mass Index 39.7 12/28/2023 8:37 AM EDT Plan of Treatment Upcoming Encounters Date Type Department Care Team (Late st Contact Info) Description 08/31/2024 11:20 AM EDT Routine [facility] [address] [place] [phone] Karyna Craig PA [address] [place] [address] Health Maintenance Due Date Last Done Comments Influenza Vaccine (Season Ended) 2024 06/15/19 24, 12/10/2016 Cervical Cancer Screening 04/19/2029 HPV/Cotest 04/19/2029 Pap Smear 04/19/2029 04/19/2024, 02/28 (Manually Satisfied by [facility]) Goals Goal Patient Goal Type Associated Problems Recent Progress Patient-Stated? Author Reminders Care Plan OB Reminders No Open Scheduling, Background Procedures Procedure Name Priority Date/Time Associated Diagnosis Comments POCT URINALYSIS DIPSTICK Routine 08/23/2024 3:11 PM EDT 35 weeks gestation of Third trimester US OB BPP W NON-STRESS 08/20/2024 1:30 PM EDT US OB GROWTH 08/14/2024 9:06 AM EDT US OB BPP W NON-STRESS 08/14/2024 9:01 AM EDT POCT URINALYSIS DIPSTICK Routine 08/08/2024 2:34 PM EDT Third trimester POCT URINALYSIS DIPSTICK Routine 07/25/2024 11:07 AM EDT Third trimester US OB FOLLOW UP TRANSABDOMINAL APPROACH Routine 07/11/2024 11:09 AM EDT size inconsistent with dates GLUCOSE 1 HOUR Routine 07/08/2024 12:02 PM EDT ALL CBC WITH AUTO DIFF Routine 12:02 PM EDT POCT URINALYSIS DIPSTICK Routine 06/27/2024 10:17 AM EDT Second trimester 26 weeks gestation of BI US BREAST COMPLETE RIGHT Routine 05/31/2024 1:26 PM EST Mass of right breast, unspecified quadrant Neoplasm of unspecified behavior of breast PAP SMEAR Routine 04/19/2024 12:00 AM EST from Last 3 Months or Most Recently Relevant to Health Maintenance Results * (ABNORMAL) POCT urinalysis dipstick manually resulted (08/23/2024 3:11 PM EDT) Only the most recent of4 resultswithin the time period is included. Color, UA Yellow Clarity, UA Clear Glucose, [...] - Positive Urine 08/23/2024 3:11 PM EDT Nina Prieto DO POINT OF CARE TEST ENTER/EDIT OR DERABLES Final Result * US OB BPP W NON-STRESS (08/20/2024 1:30 PM EDT) Only the most recent of2 resultswithin the time period is included. Anatomical Region Laterality Modality Other 08/20/2024 1:30 PM EDT Narrative 08/20/2024 1:32 [place] [address] Ultrasound Report Signed Patient: EDUAR STEWARD MR#: [id number] : 1990 Acct:[id number] Age/Sex: 34 / F ADM Date: 08/20/24 Loc: [facility] 250-[address]: Nina Prieto D.O. Ordering Physician: Nina Prieto D.O. Date of Service: 08/20/24 Procedure(s): US OB BPP w non-stress Accession Number(s): [id number] cc: Nina Prieto D.O.; NORBERTO BOLANOS [place] [id number] Patient Name: EDUAR STEWARD MRN: [id number] date: 1990 Sex: F Assigned Patient Location: [facility] Current Patient Location: [facility] Accession/Order Number: [id number] Exam Date: 08/20/2024 13:28 Report Date: 08/20/2024 [...] Blake M.D. 08/20/2024 1:30 PM Dictation Location: [place] [address] Electronically authenticated by: [id number] Y Date: 08/20/2024 13:30 Dictated By: Gunnar Blake M.D. Signed By: 08/20/24 1332 DD/ 1330 TD/TT: Proof Reader: Procedure Note Radiology, Radiologist, - 08/20/[address] [address] Ultrasound Report Signed Patient: EDUAR STEWARD KMR#: [id number] : 1990Acct:[id number] Age/Sex: 34 / FADM Date: 08/20/24 Loc: [facility] 250-[address]: Nina Prieto D.O. Ordering Physician: Nina Prieto D.O. Date of Service: 08/20/24 Procedure(s): US OB BPP w non-stress Accession Number(s): [id number] cc: Nina Prieto D.O.; NORBERTO BOLANOS [place] [address] Patient Name: EDUAR STEWARD MRN: [facility]:[id number] date: 1990 Sex: F Assigned Patient Location: [facility] Current Patient Location: [facility] Accession/Order Number: [id number] Exam Date: 08/20/2024 13:28 Report Date: 08/20/2024 [...] Blake M.D. 08/20/2024 1:30 PM Dictation Location: [place] [address] Electronically authenticated by: [id number] Y Date: 3:30 Dictated By: Gunnar Blake M.D. Signed By:08/20/24 1338 DD/ 1339 TD/TT: Proof Reader: us Nina Prieto DO [facility] Final Result * US OB GROWTH (08/14/2024 9:06 AM EDT) Anatomical Region Laterality Modality Other 08/14/2024 9:06 AM EDT Narrative 08/14/2024 9:09 [place] [address] Ultrasound Report Signed Patient: EDUAR STEWARD MR#: [id number] : 1990 Acct:[id number] Age/Sex: 34 / F ADM Date: 08/13/24 Loc: US Attending Dr: Nina Prieto D.O. Ordering Physician: Nina Prieto D.O. Date of Service: 08/13/24 Procedure(s): US OB growth Accession Number(s): [id number] cc: Nina Prieto D.O.; NORBERTO BOLANOS [place] [address] Patient Name: EDUAR STEWARD MRN: [id number] date: 1990 Sex: F Assigned Patient Location: US Current Patient Location: Accession/Order Number: [id number] Exam Date: 08/14/2024 09:01 Report Date: 08/14/2024 [...] Blake M.D. 08/14/2024 9:06 AM Dictation Location: [place] [address] Electronically authenticated by: [id number] Y Date: 08/14/2024 09:06 Dictated By: Gunnar Blake M.D. Signed By: 08/14/24908 DD/ 5 TD/TT: Proof Reader: Procedure Note Radiology, Radiologist, - 08/14/2024 [place] [address] Ultrasound Report Signed Patient: EDUAR STEWARD KMR#: [id number] : 1990Acct:[id number] Age/Sex: 34 / FADM Date: 08/13/24 Loc: US Attending Dr: Nina Prieto D.O. Ordering Physician: Nina Prieto D.O. Date of Service: 08/13/24 Procedure(s): US OB growth Accession Number(s): [id number] cc: Nina Prieto D.O.; NORBERTO BOLANOS [place] [address] Patient Name: EDUAR STEWARD MRN: [id number] date: 1990 Sex: F Assigned Patient Location: Current Patient Location: Accession/Order Number: [id number] Exam Date: 08/14/2024 09:01 Report Date: 08/14/2024 [...] Blake M.D. 08/14/2024 9:06 AM Dictation Location: [facility] Electronically authenticated by: [id number] Y Date: 509:06 Dictated By: Gunnar Blake M.D. Signed By:08/14/2409 DD/ 5 TD/TT: Proof Reader: us Nina Conner DO [facility] Final Result * US OB follow up transabdominal approach (07/11/2024 11:09 AM EDT) Anatomical Region Laterality Modality Body Ultrasound 07/11/2024 11:4 9 PM EDT Narrative 07/11/2024 11:49 PM EDT EXAM: US OB FOLLOW UP TRANSABDOMINAL APPROACH [...] 09/11/2024. Interpreted by: Electronically signed by TRAVIS DANGELO II, MD, PHD at 11-Jul-2024 11:47:38 PM [facility] Procedure Note Travis Dangelo MD - 07/11/2024 EXAM: US OB FOLLOW UP TRANSABDOMINAL APPROACH HISTORY: Inconsistent size. COMPARISON: Ob ultrasound 06/01/2024 - Report only. TECHNIQUE: Two-dimensional transabdominal grayscale ultrasound imaging ofthe pelvis was performed. FINDINGS: Gestation: Single Presentation: Breech Cardiac Activity: 149 beats per minute Placental Location: Anterior with no sonographic abnormalitiesidentified. Cervical canal: Not visualized Amniotic Fluid Index: 16.3 cm MEASUREMENTS: BPD: 7.9 cm EGA: 31 weeks 4 days HC: 29.2 cm EGA: 32 weeks 1 days AC: 26.7 cm EGA: 30 weeks 6 days FL: 5.7 cm EGA: 29 weeks 5 days HC/AC Ratio: 1.09 The gestational age by today's ultrasound is 31 weeks 1 days (+/- 15 daysgestation). Estimated Weight: 1619 grams, +/- 243 grams ( 3 lb 9 oz). Weight Percentile for gestational age: 85 % IMPRESSION: 1. Single, live intrauterine gestation 29 weeks, 2 days by LMP. Today'sultrasound measurements correlate with a gestational age of 31 weeks 1days. Estimated weight is 1619 grams, +/- 243 grams ( 3 lb 9 oz)which correlates to 85 %. PAULA is 09/11/2024. Interpreted by: Electronically signed by TRAVIS DANGELO II, MD, PHD [id number] 11:47:38 PM [facility] Karyna BENITES IMG OB US PROCEDURES Final Resul t * (ABNORMAL) GLUCOSE 1 HOUR (07/08/2024 12:02 PM EDT) GLUCOSE 1 HOUR 202(H) <130 mg/dL TBH 07/08/2024 12:0 2 PM EDT 07/08/2024 12:06 PM EDT Narrative [facility] - 07/08/2024 12:18 PM EDT us Karyna BENITES LAB BLOOD ORDERABLES Final Resul t [facility] * (ABNORMAL) ALL CBC WITH AUTO DIFF (07/08/2024 12:02 PM EDT) [facility] TB WBC 8.1 4.0 - 11.0 10 3/uL TBH TB[facility] RBC 3.88(L) 4.20 - 5.40 10 6/uL [facility] HGB 11.1(L) 12.0 - 16.0 g/dL [facility] TB[facility] HCT 34.0(L) 36.0 - 48.0 % [facility] MCV 87.6 81.0 - 99.0 fL TBH TBH MCH 28.6 26.7 - 34.0 pg TBH TBH MCHC 32.6 29.9 - 35.2 g/dL TBH TBH RDW 13.2 11.0 - 15.0 % [facility]H TBH PLT 218 150 - 450 10 3/uL TBH TBH MPV 10.9 9.5 - 13.5 fL TBH NEUTROPHILS PERCENT AUTO 73.1 43.0 - 75.0 % [facility]H LYMPHOCYTES PERCENT AUTO 18.9(L) 20.5 - 60.0 % [facility]H MONOCYTES PERCENT AUTO 5.3 1.7 - 12.0 % [facility]H EO % 0.6(L) 0.9 - 7.0 % [facility] BASOPHILS PERCENT AUTO 0.2 0.2 - 2.0 % [facility] IMMATURE GRANULOCYTES PCT AUTO 1.9(H) 0.0 - 0.5 % TBH NEUTROPHILS ABSOLUTE AUTO 5.9 1.4 - 6.5 10 3/uL TBH LYMPHOCYTES ABSOLUTE AUTO 1.5 1.2 - 3.8 10 3/uL TBH MONOCYTES ABSOLUTE AUTO 0.4 0.3 - 0.8 10 3/uL TBH TBH EO # 0.1 0.0 - 0.7 10 3/uL TBH BASOPHILS ABSOLUTE AUTO 0.0 0.0 - 0.1 10 3/uL [facility] IMMATURE GRANULOCYTES ABS AUTO 0.15(H) 0.00 - 0.03 10 3/uL [facility] 07/08/2024 12:0 2 PM EDT 07/08/2024 12:06 PM EDT Narrative [facility] - 07/08/2024 12:15 PM EDT us Karyna ABBOTT Final Result Performing Organization Address [facility] Co de Phone Number SCAR [facility] * Right breast US complete (05/31/2024 1:26 PM EST) Anatomical Region Laterality Modality Breast Right Ultrasound 06/01/2024 1:17 PM EST Impressions 06/01/2024 1:23 PM EST Impression: Right breast ultrasound study is grossly unremarkable. No convincing evidence of neoplasm. BI-RADS 2 ELECTRONICALLY SIGNED BY: Floyd Way M.D. Narrative 06/01/2024 1:23 PM EST Examination: BI US BREAST COMPLETE RIGHT Reason for Study: breast lump right breast Comparison: None Technique: Complete right breast ultrasound study was performed to include all 4 quadrants and the subareolar region. Findings: No obvious solid or cystic mass. No obvious solid vascular mass to suggest neoplasm. No obvious abnormal calcifications or vascularity. No obvious ductal dilatation. us Nina Conner DO IMG US PROCEDURES Final Result * Pap Smear (04/19/2024 12:00 AM EST) Swab Cervical swab / Unknown us Nina Conner DO LAB CYTOLOGY ORDERABLES Final Re sult Performing Organization Address [facility] Co de Phone Number EXTERNAL LAB from Last 3 Months or Most Recently Relevant to Health Maintenance Additional Health Concerns Active Problems Noted Date Diagnosed Date OB Reminders 03/28/2024 Insurance [facility] Care Teams Ultrasonic Tester Relationship Specialty Start Date End Date Karen Bolanos MD [address] [place] [address] PCP - General Family Medicine 11/10/22
--- OUTSIDE RECORDS SUMMARY | 2024-08-24 13:05 | XMS_ITS | Encounter Summary ---
Author Organization [facility] Address [address] [place] [address] Care Team Providers Care Deputy Of Counter Intelligence Name Role Phone Karen Bolanos MD Primary Care Provider [phone] Karen Bolanos MD Unavailable [phone] Encounter Details Date Type Department Care Team (Late st Contact Info) Description 03/11/2024 Abstract [facility] [address] [place] [address] Andrea Prieto, [address] [place], [place] [id number] Social History Tobacco Use Types Packs/Day Years [...] AM EDT Routine [facility] OB [address] [address] Karyna Craig PA [address] [facility] [place] [address] documented as of this encounter Visit Diagnoses Not on filedocumented in this encounter Care Teams Deputy Of Counter Intelligence Relationship Specialty Start Date End Date Karen Bolanos MD [address] [place] [address] PCP - General Family Medicine 11/10/22 Karen Bolanos MD [address] [place] [address] PCP - Nish Medina 12/28/22 5 documented as of this encounter
--- OUTSIDE RECORDS SUMMARY | 2024-08-24 13:05 | XMS_ITS | Encounter Summary ---
Author Organization [facility] Address [address] [place] [address] Care Team Providers Care Laborer Driver Name Role Phone Karen Bolanos MD Primary Care Provider [phone] Encounter Details Date Type Department Care Team (Late st Contact Info) Description 08/09/2024 Abstract [facility] [address] [place] [phone] Andrea Prieto, DO [address] [place], [facility] Social History Tobacco Use Types Packs/Day Years [...] AM EDT Routine [facility] BCP OB [address] [facility] [place] [address] Karyna Craig PA [address] [facility] [place] [address] documented as of this encounter Goals Goal Patient Goal Type Associated Problems Recent Progress Patient-Stated? Author Reminders Care Plan OB Reminders No Open Scheduling, Background documented as of this encounter Visit Diagnoses Not on filedocumented in this encounter Additional Health Concerns Active Problems Noted Date Diagnosed Date OB Reminders 03/28/2024 documented as of this encounter Care Teams Laborer Driver Relationship Specialty Start Date End Date Karen Bolanos MD [address] [place] [address] PCP - General Family Medicine 11/10/22 documented as of this encounter
--- OUTSIDE RECORDS SUMMARY | 2024-08-24 13:05 | XMS_ITS | Encounter Summary ---
Author Organization [facility] Address [address] [place] [address] Care Team Providers Care Apparel Machinery Instructor Name Role Phone Karen Bolanos MD Primary Care Provider [phone] Encounter Details Date Type Department Care Team (Late st Contact Info) Description 08/14/2024 Clinisync Result Encounter [facility] External Department Unsolicited Nina Prieto, DO [address] [place] [address] Social History Tobacco Use Types [...] BCP OB [address] [place] [address] Karyna Craig PA [address] [facility] [address] [place], [place] [address] documented as of this encounter Goals Goal Patient Goal Type Associated Problems Recent Progress Patient-Stated? Author Reminders Care Plan OB Reminders No Open Scheduling, Background documented as of this encounter Procedures Procedure Name Priority Date/Time Associated Diagnosis Comments US OB BPP W NON-STRESS 08/14/2024 9:01 AM EDT documented in this encounter Results * US OB BPP W NON-STRESS (08/14/2024 9:01 AM EDT) Anatomical Region Laterality Modality Other 08/14/2024 9:01 AM EDT Narrative 08/14/2024 9:04 AM EDT [place] [id number] Ultrasound Report Signed Patient: EDUAR CARPENTER MR#: [id number] : 1990 Acct:[id number] Age/Sex: 34 / F ADM Date: 08/13/24 Loc: US Attending Dr: Nina Prieto D.O. Ordering Physician: Nina Prieto D.O. Date of Service: 08/13/24 Procedure(s): US OB BPP w non-stress Accession Number(s): [id number] cc: Nina Prieto D.O.; NORBERTO BOLANOS [address] [address] Patient Name: EDUAR CARPENTER MRN: [id number] date: 1990 Sex: F Assigned Patient Location: US Current Patient Location: Accession/Order Number: [id number] Exam Date: 08/14/2024 08:54 Report Date: 08/14/2024 09:01 At the request of: NINA PRIETO DO [...] Blake M.D. 08/14/2024 9:01 AM Dictation Location: [place] [address] Electronically authenticated by: [id number] Y Date: 08/14/2024 09:01 Dictated By: Gunnar Blake M.D. Signed By: 08/14/24903 DD/ 0 TD/TT: Furnace Loader: Procedure Note Radiology, Radiologist, MD - 08/14/2024 [place] [address] Ultrasound Report Signed Patient: EDUAR CARPENTER KMR#: [id number] : 1990Acct:[id number] Age/Sex: 34 / FADM Date: 08/13/24 Loc: US Attending Dr: Nina Prieto D.O. Ordering Physician: Nina Prieto D.O. Date of Service: 08/13/24 Procedure(s): US OB BPP w non-stress Accession Number(s): [id number] cc: Nina Prieto D.O.; NORBERTO BOLANOS The [place] [id number] Patient Name: EDUAR CARPENTER MRN: [id number] date: 1990 Sex: F Assigned Patient Location: US Current Patient Location: Accession/Order Number: [id number] Exam Date: 08/14/2024 08:54 Report Date: 08/14/2024 09:01 At the request of: NINA PRIETO DO [...] and 2 dayswith a normal heart rate. Impression dictated by: Gunnar Blake M.D. 08/14/2024 9:01 AM Dictation Location: [place] [address] Electronically authenticated by: [id number] Y Date: 509:01 Dictated By: Gunnar Blake M.D. Signed By:08/14/24 0904 DD/ 0 TD/TT: Furnace Loader: Nina Prieto DO [facility] Final Result documented in this encounter Visit Diagnoses Not on filedocumented in this encounter Additional Health Concerns Active Problems Noted Date Diagnosed Date OB Reminders 03/28/2024 documented as of this encounter Care Teams Apparel Machinery Instructor Relationship Specialty Start Date End Date Karen Bolanos MD [address] [place] [address] PCP - General Family Medicine 11/10/22 documented as of this encounter
--- OUTSIDE RECORDS SUMMARY | 2024-08-24 13:05 | XMS_ITS | Encounter Summary ---
Author Organization [facility] Address [facility] [place] [address] Care Team Providers Care Professor Of Criminal Justice Name Role Phone Unavailable Primary Care Provider Unavailabl e Source Comments In the event this information is protected by the Federal Confidentiality of Alcohol and Drug AbusePatient Records regulations: The Federal rules restrict any use of the information to criminally investigate or prosecute any alcohol or drug abuse patient.[facility] Encounter Details Date Type Department Care Team (Latest Contact Info) Description 12/01/2023 Get Medical Advice Reproductive Endocrinology Infertility [address] [place] [address] Andressa Abraham APRN.CLEATER [address] [place] [address] Financial clearance Social History Tobacco Use Types Packs/Day Years Used Date Smoking Tobacco: Never Smokeless Tobacco: Never Alcohol Use Standard Drinks/Week Comments Yes 0 (1 standard drink = 0.6 oz pur e alcohol) social Area Deprivation Index Answer Date Abhishek rded National Score (1-100), lower number is lower ri sk 71 06/08/2023 State Score (1-10), lower number is lower risk 5 06/08/2023 Data from: https://www.neighborhoodatlas.medicine.[facility].edu/. Last address used for calculation [address] 06/08/2023 Comments No Sex and Gender [...]
--- OUTSIDE RECORDS SUMMARY | 2024-08-24 13:05 | XMS_ITS | Encounter Summary ---
Author Organization [facility] Address [facility] [place] [address] Care Team Providers [employer] Hazmat Tanker Driver Name Role Phone Unavailable Primary Care Provider Unavailabl e Source Comments In the event this information is protected by the Federal Confidentiality of Alcohol and Drug AbusePatient Records regulations: The Federal rules restrict any use of the information to criminally investigate or prosecute any alcohol or drug abuse patient.[facility] Reason for Visit * Reason Comments Lila ordered sperm next step Encounter Details Date Type Department Care Team (Late st Contact Info) Description 11/13/2023 Telephone Reproductive Endocrinology Infertility [address] [place] [address] Andressa Abraham APRN.LAST DIPPER [address] [facility] [address] [place] [address] Lila ordered sperm next step Social History Tobacco Use Types Packs/Day Years Used Date Smoking Tobacco: Never Smokeless Tobacco: Never Alcohol Use Standard Drinks/Week Comments Yes 0 (1 standard drink = 0.6 oz pur e alcohol) social Area Deprivation Index Answer Date Abhishek rded National Score (1-100), lower number is lower ri sk 71 06/08/2023 State Score (1-10), lower number is lower risk 5 06/08/2023 Data from: https://www.neighborhoodatlas.medicine.[facility].edu/. Last address used for calculation [address] [...]
--- OUTSIDE RECORDS SUMMARY | 2024-08-24 13:05 | XMS_ITS | Encounter Summary ---
Author Organization [facility] Address [address] [place] [address] Care Team Providers Care Sewing Pattern Layout Technician Name Role Phone Karen Bolanos MD Primary Care Provider [phone] Encounter Details Date Type Department Care Team (Late st Contact Info) Description 04/29/2024 Orders Only [facility] [address] [place] [address] Shanika Rubi [facility] [place] [address] Social History Tobacco Use Types Packs/Day Years [...] EDT Routine [facility] [address] [place] [address] Karyna Craig PA [address] [facility] [place] [address] documented as of this encounter Goals Goal Patient Goal Type Associated Problems Recent Progress Patient-Stated? Author Reminders Care Plan OB Reminders No Open Scheduling, Background documented as of this encounter Procedures Procedure Name Priority Date/Time Associated Diagnosis Comments PAP SMEAR Routine 04/19/2024 12:00 AM EST documented in this encounter Results * Pap Smear (04/19/2024 12:00 AM EST) Swab Cervical swab / Unknown us Andrea Conner DO LAB CYTOLOGY ORDERABLES Final Re sult EXTERNAL LAB documented in this encounter Visit Diagnoses Not on filedocumented in this encounter Additional Health Concerns Active Problems Noted Date Diagnosed Date OB Reminders 03/28/2024 documented as of this encounter Care Teams Sewing Pattern Layout Technician Relationship Specialty Start Date End Date Karen Bolanos MD [address] [place] [address] PCP - General Family Medicine 11/10/22 documented as of this encounter
--- OUTSIDE RECORDS SUMMARY | 2024-08-24 13:05 | XMS_ITS | Encounter Summary ---
Author Organization [facility] Address [facility] [place] [address] Care Team Providers Care Pictures Editor Name Role Phone Unavailable Primary Care Provider Unavailabl e Source Comments In the event this information is protected by the Federal Confidentiality of Alcohol and Drug AbusePatient Records regulations: The Federal rules restrict any use of the information to criminally investigate or prosecute any alcohol or drug abuse patient.[facility] Encounter Details Date Type Department Care Team (Late st Contact Info) Description 08/18/2023 Patient Msg Reproductive Endocrinology Infertility [address] [place] [address] Andressa Abraham APRN.NETWORK SUPPORT MANAGER [address] [place] [address] Myriad Results Social History Tobacco Use Types Packs/Day Years Used Date Smoking Tobacco: Never Smokeless Tobacco: Never Alcohol Use Standard Drinks/Week Comments Yes 0 (1 standard drink = 0.6 oz pur e alcohol) social Area Deprivation Index Answer Date Abhishek rded National Score (1-100), lower number is lower ri sk 71 06/08/2023 State Score (1-10), lower number is lower risk 5 06/08/2023 Data from: https://www.neighborhoodatlas.medicine.[facility].edu/. Last address used for calculation [address] [...]
--- OUTSIDE RECORDS SUMMARY | 2024-08-24 13:05 | XMS_ITS | Encounter Summary ---
Author Organization [facility] Address [facility] [place] [address] Care Team Providers Care Occupational Ther Name Role Phone Unavailable Primary Care Provider Unavailabl e Source Comments In the event this information is protected by the Federal Confidentiality of Alcohol and Drug AbusePatient Records regulations: The Federal rules restrict any use of the information to criminally investigate or prosecute any alcohol or drug abuse patient.[facility] Reason for Visit * Reason Comments Can they order the donor sperm samples pauline pt rt call Encounter Details Date Type Department Care Team (Late st Contact Info) Description 10/29/2023 Telephone Reproductive Endocrinology Infertility [address] [place] [address] Andressa Abraham APRN.OCCUPATIONAL HEALTH TECHNICIAN [address] [facility] [address] [place] [address] Can they order the donor sperm samples; pauline pt rt call Social History Tobacco Use Types Packs/Day Years Used Date Smoking Tobacco: Never Smokeless Tobacco: Never Alcohol Use Standard Drinks/Week Comments Yes 0 (1 standard drink = 0.6 oz pur e alcohol) social Area Deprivation Index Answer Date Abhishek rded National Score (1-100), lower number is lower ri sk 71 06/08/2023 State Score (1-10), lower number is lower risk 5 06/08/2023 Data from: https://www.neighborhoodatlas.medicine.[facility]/. Last address used for calculation [address] 06/08/2023 Comments No Sex and Gender Information Value Date Recorded Sex Assigned at Female 06/12/2023 11:27 AM EDT Legal Sex Female 9:45 AM EST Gender Identity Female 06/12/2023 11:27 AM EDT Sexual Orientation Lesbian or Burgos 06/12/2023 11 :27 AM EDT documented as of this encounter Miscellaneous Notes * Telephone Encounter - Sylvia Hernandes - 11/03/2023 11:58 AM EDT Pt ret call * Telephone Encounter - Andressa Abraham APRN.CNP - 11/02/2023 6:36 PM EDT Latest Ref Rng 10/16/2023 Progesterone See comment ng/mL 7.[address] Gallegos to ask for the report - left a message on her voicemail. did she get rubella vaccine? unable to reach, left message to return my call Andressa Abraham APRN.CNP November 02, 2023 6:38 PM documented in this encounter Plan of Treatment Not on file documented as of this encounter Visit Diagnoses Not on filedocumented in this encounter
--- OUTSIDE RECORDS SUMMARY | 2024-08-24 13:05 | XMS_ITS | Encounter Summary ---
Author Organization [facility] Address [facility] [place] [address] Care Team Providers Care Boxing Trainer Name Role Phone Unavailable Primary Care Provider Unavailabl e Source Comments In the event this information is protected by the Federal Confidentiality of Alcohol and Drug AbusePatient Records regulations: The Federal rules restrict any use of the information to criminally investigate or prosecute any alcohol or drug abuse patient.[facility] Encounter Details Date Type Department Care Team (Latest Contact Info) Description 11/23/2023 Patient Msg Reproductive Endocrinology Infertility [address] [place] [address] Andressa Abraham APRN.COMMUNITY LEADER [address] [place] [address] IUI Scheduling Instructions Social History Tobacco Use Types Packs/Day Years Used Date Smoking Tobacco: Never Smokeless Tobacco: Never Alcohol Use Standard Drinks/Week Comments Yes 0 (1 standard drink = 0.6 oz pur e alcohol) social Area Deprivation Index Answer Date Abhishek rded National Score (1-100), lower number is lower ri sk 71 06/08/2023 State Score (1-10), lower number is lower risk 5 06/08/2023 Data from: https://www.neighborhoodatlas.medicine.[facility].edu/. Last address used for calculation [address] [...]
--- OUTSIDE RECORDS SUMMARY | 2024-08-24 13:06 | XMS_ITS | Encounter Summary ---
Author Organization [facility] Address [address] [place] [address] Care Team Providers Care Milling Operator Name Role Phone Karen Bolanos MD Primary Care Provider [phone] Karen Bolanos MD Unavailable [phone] Encounter Details Date Type Department Care Team (Late st Contact Info) Description 11/10/2022 Abstract [facility] [address] [place] [address] Karen Bolanos MD [address] [place] [address] Social History Tobacco Use Types Packs/Day Years Used Date Smoking Tobacco: Never Tobacco Cessation:Counseling Given: Not Answered Alcohol Use Standard Drinks/Week Comments Yes 0 (1 standard drink = 0.6 oz pure alcohol) 1-2 drinks less than monthly in the past year, Caffeine intake: 1-2 cups per day Comments Unknown Sex and Gender Information Value Date Recorded Sex Assigned at Female 11/25/2022 10:05 AM EDT Legal Sex Female 7:17 PM EDT Gender Identity Female 06/11/2022 7:17 PM EDT Sexual Orientation Lesbian 01/12/2023 5: 14 PM EDT documented as of this encounter Plan of Treatment Upcoming Encounters Date Type Department Care Team (Late Contact Info) Description 08/31/2024 11:20 AM EDT Routine [facility] OB [address] [facility] [place] [address] Karyna Craig PA [address] [facility] [place] [address] documented as of this encounter Visit Diagnoses Not on filedocumented in this encounter Care Teams Milling Operator Relationship Specialty Start Date End Date Karen Bolanos MD [address] [place] [address] PCP - General Family Medicine 11/10/22 Karen Bolanos MD [address] [place] [address] PCP - Nish Medina 12/28/22 5 documented as of this encounter
--- OUTSIDE RECORDS SUMMARY | 2024-08-24 13:06 | XMS_ITS | Encounter Summary ---
Author Organization [facility] Address [address] [place] [address] Care Team Providers Care Mine Engineering Superintendent Name Role Phone Karen Bolanos MD Primary Care Provider [phone] Encounter Details Date Type Department Care Team (Late st Contact Info) Description 08/24/2024 Telephone [facility] OB [address] [place] [address] Shanika Rubi [facility] [place] [address] Social History Tobacco Use Types Packs/Day Years [...] AM EDT Routine [facility] [address] [place] [address] Karyna Craig PA [address] [facility] [place] [address] documented as of this encounter Goals Goal Patient Goal Type Associated Problems Recent Progress Patient-Stated? Author Reminders Care Plan OB Reminders No Open Scheduling, Background documented as of this encounter Visit Diagnoses Diagnosis Gastroesophageal reflux in documented in this encounter Additional Health Concerns Active Problems Noted Date Diagnosed Date OB Reminders 03/28/2024 documented as of this encounter Care Teams Mine Engineering Superintendent Relationship Specialty Start Date End Date Karen Bolanos MD [address] [place] [address] PCP - General Family Medicine 11/10/22 documented as of this encounter
--- OUTSIDE RECORDS SUMMARY | 2024-08-24 13:06 | XMS_ITS | Encounter Summary ---
Author Organization [facility] Address [address] [place] [address] Care Team Providers Care Gleason Operator Name Role Phone Karen Bolanos MD Primary Care Provider [phone] Encounter Details Date Type Department Care Team (Late st Contact Info) Description 08/23/2024 Bamboo flowsheet [facility] OB [address] [place] [id number] Andrea Prieto, DO [address] [place], [facility] Social History Tobacco Use Types Packs/Day [...] [address] [facility] [place] [address] Karyna Craig PA [address] [facility] [place] [address] documented as of this encounter Goals Goal Patient Goal Type Associated Problems Recent Progress Patient-Stated? Author Reminders Care Plan OB Reminders No Open Scheduling, Background documented as of this encounter Visit Diagnoses Not on filedocumented in this encounter Additional Health Concerns Active Problems Noted Date Diagnosed Date OB Reminders 03/28/2024 documented as of this encounter Care Teams Gleason Operator Relationship Specialty Start Date End Date Karen Bolanos MD [address] [place] [address] PCP - General Family Medicine 11/10/22 documented as of this encounter
--- OUTSIDE RECORDS SUMMARY | 2024-08-24 13:06 | XMS_ITS | Clinical Summary ---
Author Organization Address [facility] [place] [id number] Care Team Providers Care Clinical Informatics Director Name Role Phone Unavailable Primary Care Provider Unavailabl e Allergies No known active allergies Medications vit/iron fum/folic ac ( 1 + 1 ORAL) Take by mouth. Active mv-min/iron/folic/ calcium/vitK (WOMEN'S MULTIVITAMIN ORAL) Take by mouth. Active Active Problems No known active problems Resolved Problems Problem Noted Date Diagnosed Date Resolved Date Complete placenta previa wit h hemorrhage, third trimester 12/09/2016 06/01/2024 Encounters Date Type Department Care Team Description 07/20/2024 Telephone Maternal Medicine [address] [address] Historical 06/01/2024 11:00 AM EST Routine Office Visit Maternal Medicine [facility] [address] [place] [address] Encounter for anatomic survey (Primary Dx); Obesity affecting in second trimester, unspecified obesity type; Class 1 obesity without serious comorbidity with body mass index (BMI) of 34.0 to 34.9 in adult, unspecified obesity type; 23 weeks gestation of 06/01/2024 Travel 05/27/2024 Transcribe Orders Maternal Medicine [address] [address] Provider, Bat Person Transcribe Encounter for anatomic survey (Primary Dx) from Last 3 Months Family History Medical History Relation Comments daibetes [Other] Maternal Grandmother Relation Status Comments Father Alive Maternal Grandmother Mother Alive Sister 1 Alive Sister 2 Alive half Social History Tobacco Use Types Packs/Day Years [...] is lower risk 5 06/08/2023 Data from: https://www.neighborhoodatlas.medicine.[facility].edu/. Last address used for calculation [address] 06/08/2023 Comments No Sex and Gender Information Value Date Recorded Sex Assigned at Female 06/12/2023 11:27 AM EDT Legal Sex Female 9:45 AM EST Gender Identity Female 06/12/2023 11:27 AM EDT Sexual Orientation Lesbian or Burgos 06/12/2023 11 :27 AM EDT Last Filed Vital Signs Vital Sign Reading Time Taken Comments Blood Pressure 132/83 06/08/2023 9:50 AM EDT Pulse - - Temperature - - Respiratory Rate - - Oxygen Saturation - - Inhaled Oxygen Concentration - - Weight 89 kg (196 lb 3.4 oz) 06/08/2023 9:50 AM EDT Height 160 cm (5' 3 ) 06/08/2023 9:50 AM EDT Body Mass Index 34.76 06/08/2023 9:50 AM EDT Plan of Treatment Health Maintenance Due Date Last Done Comments DTaP,Tdap,Td Vaccine (5 - Tdap) 08/01/2002 02/08/1993, 02/07/1992, 1991, Additional history exists Hepatitis B Vaccine (2 of 3 - 3-dose series) 01/05/2004 12/08/2003 Anxiety Screening 08/01/2009 Depression Screening 08/01/2009 Cervical Cancer Screening 03/18/2016 03/18/2013 Covid-19 Vaccine ( - 2023-2 5 season) 2023 08/17/2020, 07/20/2020 Influenza Vaccine (Season Ended) 2024 06/15/2023, 12/10/2016, 02/16/2009 HIV Screening Completed 07/28/2023 Hepatitis C Screening Completed 07/28/2023 Procedures Procedure Name Priority Date/Time Associated Diagnosis Comments OBSTETRIC ULTRASOUND WHI Routine 06/01/2024 11:16 AM EST Encounter for anatomic survey HIV 1/2 COMBO WITH REFLEX TO DIFFERENTIATION Routine 07/28/2023 10:49 AM EDT Procreation management investigation and testing HEPATITIS C ANTIBODY IA WITH CONFIRMATION Routine 07/28/2023 10:49 AM EDT Procreation management investigation and testing PAP FLUID CERVICAL DIAGNOSTIC 03/18/2013 11:34 AM EST from Last 3 Months or Most Recently Relevant to Health Maintenance Results * OBSTETRIC ULTRASOUND WHI (06/01/2024 11:16 AM EST) Anatomical Region Laterality Modality Other 06/01/2024 11:1 6 AM EST Narrative 06/01/2024 12:22 PM EST Indication Detailed anatomic survey, Maternal obesity, BMI [...] 6 oz EFW by: Hadlock (HC-AC-FL) Extended Patient Relations Coordinator 4.7 mm CM 8.4 mm Nasal bone [...] normal LVOT view: normal 3-vessel view: normal [id number] view: normal Heart / Thorax Situs: situs [...] By: Yola Jung RDMS Read By: Leonid Dougherty M.D. us Karin Gloria APRN.[facility] Final Re sult * HIV 1 2 COMBO(AG/AB),WITH REFLEX TO DIFFERENTIATION (07/28/2023 10:49 AM EDT) HIV 12 Combo (Ag/Ab) Nonreactive Nonreactive 07/28/2023 7:25 PM EDT [facility] HIV-1/2 AB (Confirmatory) 07/28/2023 7:25 PM EDT [facility] Comment:Test not indicated. HIV Interpretation 07/28/2023 7:25 PM EDT [facility] Comment: No evidence of HIV-1 or HIV-2 infection. Should recent infection be suspected, repeat testing may be considered 2-3 weeks after this draw. [place] Rev. Code 3701.243(E): This information has been disclosed to you from confidential records protected from disclosure by state law. You shall make no further disclosure of this information without the specific, written, and informed release of the individual to whom it pertains or as otherwise permitted by state law. A general authorization for the release of medical or other information is not sufficient for the purpose of the release of HIV test results or diagnoses. Blood BLOOD SPECIMEN / Unknown Venipuncture / Unknown 07/28/2023 10:49 AM EDT 07/28/2023 10:49 AM EDT us Andressa Abraham APRN.[facility] Final Result [facility] [address] [address], [place] * HEPATITIS C ANTIBODY IA WITH CONFIRMATION (07/28/2023 10:49 AM EDT) [facility] Hep C Antibody IA Negative Negative 07/28/2023 7:25 PM EDT [facility] Comment:The result suggests no evidence of active infection with Hepatitis C virus. Should recent infection be suspected, repeat testing may be considered 4-6 weeks after this draw. Blood BLOOD SPECIMEN / Unknown Venipuncture / Unknown 07/28/2023 10:49 AM EDT 07/28/2023 10:49 AM EDT us Andressa Abraham APRN.BILINGUAL TEACHER ASSISTANT LABORATORY Final Result Performing Organization Address [facility] de Phone Number [facility] [address] [address], [place] * PAP FLUID CERVICAL DIAGNOSTIC (03/18/2013 11:34 AM EST) [facility] DEPARTMENT OF PATHOLOGY CYTOLOGY REPORT [id number] Submitting Physician: Jacqui Villa MD Procedure Date: 03/18/2013 Received: 03/21/2013 Reported: 03/29/2013 15:40 SPECIMEN(S) RECEIVED A: CERVICAL,DIAGNOSTI C, FLUID FINAL DIAGNOSIS A. CERVICAL,DIAGNOSTI C, FLUID Satisfactory for evaluation Negative for intraepithelial lesion or malignancy. This specimen has been analyzed by the ThinPrep Imaging System, an automated imaging and review system, which assists the laboratory in evaluating cells on ThinPrep Pap tests. Following automated imaging, selected poe from every slide are reviewed by a music sound light technician. TRAVIS Zuniga(ASCP) Waste Machine Operator Electronic Signature CLINICAL HISTORY DYSPLASIA [facility] 03/18/2013 11:3 4 AM EST 03/21/2013 9:19 AM EST us Jacqui Villa MD CYTOLOGY Final Result Performing Organization Address [facility] Co de Phone Number [facility] [address] [place] [address] from Last 3 Months or Most Recently Relevant to Health Maintenance Insurance BLUE CARD PPO OOS
--- OUTSIDE RECORDS SUMMARY | 2024-08-24 13:06 | XMS_ITS | Encounter Summary ---
Author Organization [facility] Address [address] [place] [address] Care Team Providers Care Paper Cup Handle Machine Operator Name Role Phone Karen Bolanos MD Primary Care Provider Karen Bolanos MD Unavailable [phone] Encounter Details Date Type Department Care Team (Late st Contact Info) Description 03/09/2024 Abstract [facility] [address] [place] [phone] Andrea Prieto, [address] [place], [place] [address] Social History Tobacco Use Types Packs/Day Years Used Date Smoking Tobacco: Never Smokeless Tobacco: Never Alcohol Use Standard Drinks/Week Comments Yes 0 (1 standard drink = 0.6 oz pure alcohol) 1-2 drinks less than monthly in the past year, Caffeine intake: 1-2 cups per day Comments No Sex and Gender Information Value [...] [address] [facility] [place] [place] [address] Karyna Craig PA [address] [facility] [place] [address] documented as of this encounter Visit Diagnoses Not on filedocumented in this encounter Care Teams Paper Cup Handle Machine Operator Relationship Specialty Start Date End Date Karen Bolanos MD [address] [place] [address] PCP - General Family Medicine 11/10/22 Karen Bolanos MD [address] [place] [address] PCP - Nish Medina 12/28/22 5 documented as of this encounter
--- OUTSIDE RECORDS SUMMARY | 2024-08-24 13:06 | XMS_ITS | Clinical Summary ---
Author Organization [facility] Address [address] [place] [address] Phone Care Team Providers Care Silver Buffer Name Role Phone Karen Bolanos MD Primary Care Provider [phone] Social History Tobacco Use Types Packs/Day Years Used Date Smoking Tobacco: Never Assessed Comments Unknown Sex and Gender Information Value Date Recorded Sex Assigned at Female 02/05/2023 2:31 AM EST Legal Sex Female 7:31 AM EST Gender Identity Female 02/05/2023 2:31 AM EST Sexual Orientation Lesbian 02/05/2023 2: 31 AM EST Last Filed Vital Signs Vital Sign Reading Time Taken Comments Blood Pressure 101/67 03/11/2021 10:17 AM EST Pulse 78 03/11/2021 10:17 AM EST Temperature 36.7 C (98.1 F) 03/11/2021 10:17 AM EST Respiratory Rate 20 03/11/2021 10:17 AM EST Oxygen Saturation 97% 03/11/2021 10:17 AM EST Inhaled Oxygen Concentration - - Weight - - Height 160 cm (5' 2.99 ) 03/11/2021 10:17 AM EST Body Mass Index - - Plan of Treatment Not on file Care Teams Silver Buffer Relationship Specialty Start Date End Date Karen Bolanos MD [address] [place] [address] PCP - General 03/11/21
--- OUTSIDE RECORDS SUMMARY | 2024-08-24 13:06 | XMS_ITS | Encounter Summary ---
Author Organization [facility] Address [facility] [place] [address] Care Team Providers Care Child Welfare Caseworker Name Role Phone Unavailable Primary Care Provider Unavailabl e Source Comments In the event this information is protected by the Federal Confidentiality of Alcohol and Drug AbusePatient Records regulations: The Federal rules restrict any use of the information to criminally investigate or prosecute any alcohol or drug abuse patient.[facility] Encounter Details Date Type Department Care Team (Late st Contact Info) Description 02/09/2024 Patient Msg Reproductive Endocrinology Infertility [address] [facility] [address] Margo Cortez APRN.RETAIL CUSTOMER SERVICE SPECIALIST [address] [facility] [address] [place] [id number] Congratulations!!! Social History Tobacco Use Types Packs/Day Years Used Date Smoking Tobacco: Never Smokeless Tobacco: Never Alcohol Use Standard Drinks/Week Comments Yes 0 (1 standard drink = 0.6 oz pur e alcohol) social Area Deprivation Index Answer Date Abhishek rded National Score (1-100), lower number is lower ri sk 71 06/08/2023 State Score (1-10), lower number is lower risk 5 06/08/2023 Data from: https://www.neighborhoodatlas.medicine.[facility].edu/. Last address used for calculation [address] [...]
[2024-08-24 13:10] VITALS: BP 117/58; PULSE 125
[2024-08-26 07:28] LABS: Glucometer 90 mg/dL (74-106)
== END 2024-08-24 14:06 | disposition home or self-care (01) ==
LOC: FBCO 13:01 → FBC 13:03
PROVIDERS: PCP Student in an Organized Health Care Education/Training Program; Visit Provider Obstetrics & Gynecology
DX: O24.419 Gestational diabetes mellitus in pregnancy, unspecified control (principal)
CPT/HCPCS: 36415; 59025; 82948

== ENCOUNTER 2024-08-27 13:14 | Outpatient (OUT) | payer BC, SELFPAY ==
--- OUTSIDE RECORDS SUMMARY | 2024-08-27 13:15 | XMS_ITS | Encounter Summary ---
Author Organization [facility] Address [address] [place] [address] Care Team Providers Care Lithograph Printer Name Role Phone Karen Bolanos MD Primary Care Provider [phone] Encounter Details Date Type Department Care Team (Late st Contact Info) Description 08/24/2024 Telephone [facility] OB [address] [place] [address] Shanika Rubi [facility] [place] [address] Social History Tobacco Use Types Packs/Day Years [...] [facility] BCP OB [address] [place] [address] Karyna Craig PA [address] [facility] [place] [address] documented as of this encounter Goals Goal Patient Goal Type Associated Problems Recent Progress Patient-Stated? Author Reminders Care Plan OB Reminders No Open Scheduling, Background documented as of this encounter Visit Diagnoses Diagnosis Gastroesophageal reflux in documented in this encounter Additional Health Concerns Active Problems Noted Date Diagnosed Date OB Reminders 03/28/2024 documented as of this encounter Care Teams Lithograph Printer Relationship Specialty Start Date End Date Karen Bolanos MD [address] [place] [address] PCP - General Family Medicine 11/10/22 documented as of this encounter
--- OUTSIDE RECORDS SUMMARY | 2024-08-27 13:15 | XMS_ITS | Encounter Summary ---
Author Organization [facility] Address [facility] [place] [address] Care Team Providers Care Skewer Up Name Role Phone Unavailable Primary Care Provider Unavailabl e Source Comments In the event this information is protected by the Federal Confidentiality of Alcohol and Drug AbusePatient Records regulations: The Federal rules restrict any use of the information to criminally investigate or prosecute any alcohol or drug abuse patient.[facility] Encounter Details Date Type Department Care Team (Latest Contact Info) Description 11/23/2023 Patient Msg Reproductive Endocrinology Infertility [address] [place] [address] Andressa Abraham APRN.COMMODITY INDUSTRY ANALYST [address] [place] [address] IUI Scheduling Instructions Social History Tobacco Use [...] is lower risk 5 06/08/2023 Data from: https://www.neighborhoodatlas.medicine.[facility].edu/. Last address used for calculation [...]
--- OUTSIDE RECORDS SUMMARY | 2024-08-27 13:15 | XMS_ITS | Encounter Summary ---
Author Organization [facility] Address [address] [place] [address] Care Team Providers Care Slurry Tank Tender Name Role Phone Karen Bolanos MD Primary Care Provider [phone] Encounter Details Date Type Department Care Team (Late st Contact Info) Description 08/19/2024 Telephone [facility] [address] [place] [address] Andrea Prieto, DO [address] Mary Hoffmann, [facility] Social History Tobacco Use Types Packs/Day Years [...] AM EDT Routine [facility] BCP OB [address] [facility] [place] [phone] Karyna Craig PA [address] [facility] [place] [address] documented as of this encounter Goals Goal Patient Goal Type Associated Problems Recent Progress Patient-Stated? Author Reminders Care Plan OB Reminders No Open Scheduling, Background documented as of this encounter Visit Diagnoses Not on filedocumented in this encounter Additional Health Concerns Active Problems Noted Date Diagnosed Date OB Reminders 03/28/2024 documented as of this encounter Care Teams Slurry Tank Tender Relationship Specialty Start Date End Date Karen Bolanos MD [address] [place] [address] PCP - General Family Medicine 11/10/22 documented as of this encounter
--- OUTSIDE RECORDS SUMMARY | 2024-08-27 13:15 | XMS_ITS | Encounter Summary ---
Author Organization [facility] Address [address] [place] [address] Care Team Providers Care Review Rn Name Role Phone Karen Bolanos MD Primary Care Provider [phone] Encounter Details Date Type Department Care Team (Late st Contact Info) Description 08/23/2024 Bamboo flowsheet [facility] OB [address] [place] [phone] Andrea Prieto, DO [address] Mary Hoffmann, [facility]11 Social History Tobacco Use Types Packs/Day [...] AM EDT Routine [facility]S BCP OB [address] [facility] [place] [address] Karyna Craig PA [address] [facility] [place] [address] documented as of this encounter Goals Goal Patient Goal Type Associated Problems Recent Progress Patient-Stated? Author Reminders Care Plan OB Reminders No Open Scheduling, Background documented as of this encounter Visit Diagnoses Not on filedocumented in this encounter Additional Health Concerns Active Problems Noted Date Diagnosed Date OB Reminders 03/28/2024 documented as of this encounter Care Teams Review Rn Relationship Specialty Start Date End Date Karen Bolanos MD [address] [place] [address] PCP - General Family Medicine 11/10/22 documented as of this encounter
--- OUTSIDE RECORDS SUMMARY | 2024-08-27 13:15 | XMS_ITS | Encounter Summary ---
Author Organization [facility] Address [address] [facility] [place] [address] Care Team Providers Care Produce Wrapper Name Role Phone Karen Bolanos MD Primary Care Provider [phone] Encounter Details Date Type Department Care Team (Late st Contact Info) Description 08/14/2024 Clinisync Result Encounter N[facility] External Department Unsolicited Nina Prieto, DO [address] [place] [address] Social History Tobacco Use Types [...] BCP OB [address] [place] [address] Karyna Craig PA [address] [facility] [address] [place], [facility]11 documented as of this encounter Goals Goal [...] AM EDT Narrative 08/14/2024 9:09 AM EDT [address] [address] Ultrasound Report Signed Patient: EDUAR CARPENTER MR#: [id number] : 1990 Acct:[id number] Age/Sex: 34 / F ADM Date: 08/13/24 Loc: US Attending Dr: Nina Prieto D.O. Ordering Physician: Nina Prieto D.O. Date of Service: 08/13/24 Procedure(s): US OB growth Accession Number(s): [id number] cc: Nina Prieto D.O.; NORBERTO BOLANOS [address] [address] Patient Name: EDUAR CARPENTER MRN: [id number] date: 1990 Sex: F Assigned Patient Location: US Current Patient Location: Accession/Order Number: [id number] Exam Date: 08/14/2024 09:01 Report Date: 08/14/2024 [...] Blake M.D. 08/14/2024 9:06 AM Dictation Location: [place] [address] Electronically authenticated by: [id number] Y Date: 08/14/2024 09:06 Dictated By: Gunnar Blake M.D. Signed By: 08/14/24908 DD/ 5 TD/TT: Cyber Policy And Strategy Planner: Procedure Note Radiology, Radiologist, MD - 08/14/2024 [place] [address] Ultrasound Report Signed Patient: EDUAR CARPENTER KMR#: [id number] : 1990Acct:[id number] Age/Sex: 34 / FADM Date: 08/13/24 Loc: US Attending Dr: Nina Prieto D.O. Ordering Physician: Nina Prieto D.O. Date of Service: 08/13/24 Procedure(s): US OB growth Accession Number(s): [id number] cc: Nina Prieto D.O.; NORBERTO BOLANOS The [place] [address] Patient Name: EDUAR CARPENTER MRN: [id number] date: 1990 Sex: F Assigned Patient Location: US Current Patient Location: Accession/Order Number: [id number] Exam Date: 08/14/2024 09:01 Report Date: 08/14/2024 [...] Blake M.D. 08/14/2024 9:06 AM Dictation Location: [place] [address] Electronically authenticated by: [id number] Y Date: 509:06 Dictated By: Gunnar Blake M.D. Signed By:08/14/24 0909 DD/ 5 TD/TT: Cyber Policy And Strategy Planner: Nina Prieto DO [facility] Final Result documented in this encounter Visit Diagnoses Not on filedocumented in this encounter Additional Health Concerns Active Problems Noted Date Diagnosed Date OB Reminders 03/28/2024 documented as of this encounter Care Teams Produce Wrapper Relationship Specialty Start Date End Date Karen Bolanos MD [address] [place] [address] PCP - General Family Medicine 11/10/22 documented as of this encounter
--- OUTSIDE RECORDS SUMMARY | 2024-08-27 13:15 | XMS_ITS | Encounter Summary ---
Author Organization [facility] Address [address] [facility] [place] [address] Care Team Providers Care Planner Intern Name Role Phone Karen Bolanos MD Primary Care Provider [phone] Encounter Details Date Type Department Care Team (Late st Contact Info) Description 08/14/2024 Clinisync Result Encounter NOMS External Department Unsolicited Nina Prieto, DO [address] [place] [address] Social History Tobacco Use Types [...] BCP OB [address] [place] [address] Karyna Craig PA [address] [facility] [address] [place], [place] [address] documented as of this encounter Goals Goal [...] AM EDT Narrative 08/14/2024 9:04 AM EDT [place] [address] Ultrasound Report Signed Patient: EDUAR CARPENTER MR#: [id number] : 1990 Acct:[id number] Age/Sex: 34 / F ADM Date: 08/13/24 Loc: US Attending Dr: Nina Prieto D.O. Ordering Physician: Nina Prieto D.O. Date of Service: 08/13/24 Procedure(s): US OB BPP w non-stress Accession Number(s): [id number] cc: Nina Prieto D.O.; NORBERTO BOLANOS [address] [address] Patient Name: EDUAR CARPENTER MRN: [id number] date: 1990 Sex: F Assigned Patient Location: US Current Patient Location: Accession/Order Number: [id number] Exam Date: 08/14/2024 08:54 Report Date: 08/14/2024 [...] Blake M.D. 08/14/2024 9:01 AM Dictation Location: [place] [address] Electronically authenticated by: [id number] Y Date: 08/14/2024 09:01 Dictated By: Gunnar Blake M.D. Signed By: 08/14/24903 DD/ 0 TD/TT: Concrete Stone Finishing Supervisor: Procedure Note Radiology, Radiologist, MD - 08/14/2024 [place] [address] Ultrasound Report Signed Patient: EDUAR CARPENTER KMR#: [id number] : 1990Acct:[id number] Age/Sex: 34 / FADM Date: 08/13/24 Loc: US Attending Dr: Nina Prieto D.O. Ordering Physician: Nina Prieto D.O. Date of Service: 08/13/24 Procedure(s): US OB BPP w non-stress Accession Number(s): [id number] cc: Nina Prieto D.O.; NORBERTO BOLANOS The [place] [address] Patient Name: EDUAR CARPENTER MRN: [id number] date: 1990 Sex: F Assigned Patient Location: US Current Patient Location: Accession/Order Number: [id number] Exam Date: 08/14/2024 08:54 Report Date: 08/14/2024 [...] Blake M.D. 08/14/2024 9:01 AM Dictation Location: [place] [address] Electronically authenticated by: [id number] Y Date: 509:01 Dictated By: Gunnar Blake M.D. Signed By:08/14/24 0904 DD/ 0 TD/TT: Concrete Stone Finishing Supervisor: Nina Prieto DO [facility] Final Result documented in this encounter Visit Diagnoses Not on filedocumented in this encounter Additional Health Concerns Active Problems Noted Date Diagnosed Date OB Reminders 03/28/2024 documented as of this encounter Care Teams Planner Intern Relationship Specialty Start Date End Date Karen Bolanos MD [address] [place] [address] PCP - General Family Medicine 11/10/22 documented as of this encounter
--- OUTSIDE RECORDS SUMMARY | 2024-08-27 13:15 | XMS_ITS | Encounter Summary ---
Author Organization [facility] Address [facility] [place] [address] Care Team Providers Care Computer System Specialist Name Role Phone Unavailable Primary Care Provider Unavailabl e Source Comments In the event this information is protected by the Federal Confidentiality of Alcohol and Drug AbusePatient Records regulations: The Federal rules restrict any use of the information to criminally investigate or prosecute any alcohol or drug abuse patient.[facility] Encounter Details Date Type Department Care Team (Latest Contact Info) Description 12/01/2023 Get Medical Advice Reproductive Endocrinology Infertility [address] [place] [address] Andressa Abraham APRN.SENIOR NETWORK SECURITY ENGINEER [address] [place] [address] Financial clearance Social History Tobacco Use Types [...] is lower risk 5 06/08/2023 Data from: https://www.neighborhoodatlas.medicine.[facility].edu/. Last address used for calculation [...]
--- OUTSIDE RECORDS SUMMARY | 2024-08-27 13:15 | XMS_ITS | Encounter Summary ---
Author Organization [facility] Address [address] [facility] [place] [address] Care Team Providers Care Processing Tech Name Role Phone Karen Bolanos MD Primary Care Provider [phone] Encounter Details Date Type Department Care Team (Late st Contact Info) Description 08/20/2024 Clinisync Result Encounter NOM[facility] External Department Unsolicited Nina Prieto, DO [address] [place] [address] Social History Tobacco Use Types [...] BCP OB [address] [place] [address] Karyna Craig PA [address] [facility] [address] [place], [place] [address] documented as of this encounter Goals Goal [...] PM EDT Narrative 08/20/2024 1:32 [place] [address] Ultrasound Report Signed Patient: EDUAR CARPENTER MR#: [id number] : 1990 Acct:[id number] Age/Sex: 34 / F ADM Date: 08/20/24 Loc: [place] [address]: Nina Prieto D.O. Ordering Physician: Nina Prieto D.O. Date of Service: 08/20/24 Procedure(s): US OB BPP w non-stress Accession Number(s): [id number] cc: Nina Prieto D.O.; NORBERTO BOLANOS [address] [address] Patient Name: EDUAR CARPENTER MRN: [id number] date: 1990 Sex: F Assigned Patient Location: [facility] Current Patient Location: [facility] Accession/Order Number: [id number] Exam Date: 08/20/2024 13:28 Report Date: 08/20/2024 [...] Blake M.D. 08/20/2024 1:30 PM Dictation Location: [place] [address] Electronically authenticated by: [id number] Y Date: 08/20/2024 13:30 Dictated By: Gunnar Blake M.D. Signed By: 08/20/24 133 DD/ 133 TD/TT: Tool Chaser: Procedure Note Radiology, Radiologist, MD - 08/20/2024 [place] [address] Ultrasound Report Signed Patient: EDUAR CARPENTER KMR#: [id number] : 1990Acct:[id number] Age/Sex: 34 / FADM Date: 08/20/24 Loc: [facility] [address]: Nina Prieto D.O. Ordering Physician: Nina Prieto D.O. Date of Service: 08/20/24 Procedure(s): US OB BPP w non-stress Accession Number(s): [id number] cc: Nina Prieto D.O.; NORBERTO BOLANOS [place] [id number] Patient Name: EDUAR CARPENTER MRN: [id number] date: 1990 Sex: F Assigned Patient Location: [facility] Current Patient Location: [facility] Accession/Order Number: [id number] Exam Date: 08/20/2024 13:28 Report Date: 08/20/2024 [...] Blake M.D. 08/20/2024 1:30 PM Dictation Location: [place] Electronically authenticated by: [id number] Y Date: 3:30 Dictated By: Gunnar Blake M.D. Signed By:08/20/24 1332 DD/ 1330 TD/TT: Tool Chaser: Nina Prieto DO [facility] Final Result documented in this encounter Visit Diagnoses Not on filedocumented in this encounter Additional Health Concerns Active Problems Noted Date Diagnosed Date OB Reminders 03/28/2024 documented as of this encounter Care Teams Processing Tech Relationship Specialty Start Date End Date Karen Bolanos MD [address] [place] [address] PCP - General Family Medicine 11/10/22 documented as of this encounter
--- OUTSIDE RECORDS SUMMARY | 2024-08-27 13:15 | XMS_ITS | Encounter Summary ---
Author Organization [facility] Address [address] [place] [address] Care Team Providers Care Stator Tester Name Role Phone Karen Bolanos MD Primary Care Provider [phone] Encounter Details Date Type Department Care Team (Late st Contact Info) Description 08/09/2024 Abstract [facility] [address] [place] [address] Andrea Prieto, [address] Mary Hoffmann, [facility]11 Social History Tobacco Use Types Packs/Day Years [...] AM EDT Routine [facility]OMS BCP OB [address] [facility] [place] [address] Karyna Craig PA [address] [facility] [place] [address] documented as of this encounter Goals Goal Patient Goal Type Associated Problems Recent Progress Patient-Stated? Author Reminders Care Plan OB Reminders No Open Scheduling, Background documented as of this encounter Visit Diagnoses Not on filedocumented in this encounter Additional Health Concerns Active Problems Noted Date Diagnosed Date OB Reminders 03/28/2024 documented as of this encounter Care Teams Stator Tester Relationship Specialty Start Date End Date Karen Bolanos MD [address] [place] [address] PCP - General Family Medicine 11/10/22 documented as of this encounter
--- NOTE | 2024-08-27 13:16 | US_ITS ---
[place] [id number] Patient Name: EDUAR CARPENTER MRN: [id number] date: 1990 Sex: F Assigned Patient Location: [facility] Current Patient Location: [facility] Accession/Order Number: [id number] Exam Date: 08/27/2024 13:58 Report Date: 08/27/2024 14:00 At the request of: NINA ALONSO DO Procedure: US OB BPP w non-stress Ultrasound biophysical profile HISTORY: Gestational diabetes There is adequate breathing movement, gross body movement, tone and amniotic fluid volume with total score of 8 out of 8. The amniotic fluid index is 18.8 cm within normal limits. heart rate 167 bpm. Possible nuchal cord identified. US/US OB BPP w non-stress IMPRESSION: Adequate ultrasound biophysical profile. Possible nuchal cord. Impression dictated by: Deepak Nava M.D. 08/27/2024 2:00 PM Dictation Location: Research Journalist Electronically authenticated by: [id number] Y Date: 08/27/2024 14:00
--- OUTSIDE RECORDS SUMMARY | 2024-08-27 13:16 | XMS_ITS | Encounter Summary ---
Author Organization [facility] Address [facility] [place] [address] Care Team Providers Care Hull Sorter Name Role Phone Unavailable Primary Care Provider Unavailabl e Source Comments In the event this information is protected by the Federal Confidentiality of Alcohol and Drug AbusePatient Records regulations: The Federal rules restrict any use of the information to criminally investigate or prosecute any alcohol or drug abuse patient.[facility] Encounter Details Date Type Department Care Team (Late st Contact Info) Description 02/09/2024 Patient Msg Reproductive Endocrinology Infertility [address] [place] [address] Margo Cortez APRN.CHEF DE CUISINE [address] [place] [id number] Congratulations!!! Social History Tobacco Use Types Packs/Day Years Used Date Smoking Tobacco: Never Smokeless Tobacco: Never Alcohol Use Standard Drinks/Week Comments Yes 0 (1 standard drink = 0.6 oz pur e alcohol) social Area Deprivation Index Answer Date Abhishek rded National Score (1-100), lower number is lower ri sk 71 06/08/2023 State Score (1-10), lower number is lower risk 5 06/08/2023 Data from: https://www.neighborhoodatlas.medicine.[facility].edu/. Last address used for calculation [...]
--- OUTSIDE RECORDS SUMMARY | 2024-08-27 13:16 | XMS_ITS | Encounter Summary ---
Author Organization [facility] Address [address] [place] [address] Care Team Providers Care Etched Circuit Processor Name Role Phone Karen Bolanos MD Primary Care Provider [phone] Karen Bolanos MD Unavailable [phone] Encounter Details Date Type Department Care Team (Late st Contact Info) Description 03/09/2024 Abstract [facility] [address] [place] [address] Andrea Prieto, [address] Mary [place], [place] [id number] Social History Tobacco Use Types Packs/Day Years [...] AM EDT Routine [facility]OM[facility] BCP OB [address] [facility] [place] [address] Karyna Craig PA [address] [facility] [place] [address] documented as of this encounter Visit Diagnoses Not on filedocumented in this encounter Care Teams Etched Circuit Processor Relationship Specialty Start Date End Date Karen Bolanos MD [address] [place] [address] PCP - General Family Medicine 11/10/22 Karen Bolanos MD [address] [place] [address] PCP - Nish Medina 12/28/22 5 documented as of this encounter
--- OUTSIDE RECORDS SUMMARY | 2024-08-27 13:16 | XMS_ITS | Clinical Summary ---
Author Organization [facility] Address [facility] [place] [id number] Care Team Providers Care Chief Hydroelectric Station Operator Name Role Phone Unavailable Primary Care Provider [...] Care Team Description 07/20/2024 Telephone Maternal Medicine [address] [address] Historical 06/01/2024 11:00 AM EST Routine Office Visit [facility] [address] [place] [address] Encounter for anatomic survey (Primary Dx); Obesity affecting in second trimester, unspecified obesity type; Class 1 obesity without serious comorbidity with body mass index (BMI) of 34.0 to 34.9 in adult, unspecified obesity type; 23 weeks gestation of 06/01/2024 Travel 05/27/2024 Transcribe Orders Maternal Medicine [address] [address] Provider, End User Consultant Transcribe Encounter for anatomic survey (Primary Dx) [...] is lower risk 5 06/08/2023 Data from: https://www.neighborhoodatlas.medicine.[facility].edu/. Last address used for calculation [address] [...] 6 oz EFW by: Hadlock (HC-AC-FL) Extended Bowling Ball Engraver 4.7 mm CM 8.4 mm Nasal bone [...] normal LVOT view: normal 3-vessel view: normal [id number] view: normal Heart / Thorax Situs: situs [...] By: Leonid Dougherty M.D. us Karin Gloria APRN.[facility] Final Re sult * HIV 1 2 COMBO(AG/AB),WITH REFLEX TO DIFFERENTIATION (07/28/2023 10:49 AM EDT) HIV 12 Combo (Ag/Ab) Nonreactive Nonreactive 07/28/2023 7:25 PM EDT [facility] HIV-1/2 AB (Confirmatory) 07/28/2023 7:25 PM EDT [facility] Comment:Test not indicated. HIV Interpretation 07/28/2023 7:25 PM EDT [facility] Comment: No evidence of HIV-1 or HIV-2 infection. Should recent infection be suspected, repeat testing may be considered 2-3 weeks after this draw. [place] Rev. Code 3701.243(E): This information has been [...] 07/28/2023 10:49 AM EDT us Andressa Abraham APRN.[facility] Final Result [facility] [address] [address], [place] * HEPATITIS C ANTIBODY IA WITH CONFIRMATION (07/28/2023 10:49 AM EDT) [facility] Hep C Antibody IA Negative Negative 07/28/2023 7:25 PM EDT [facility] Comment:The result suggests no evidence of active infection with Hepatitis C virus. Should recent infection be suspected, repeat testing may be considered 4-6 weeks after this draw. Blood BLOOD SPECIMEN / Unknown Venipuncture / Unknown 07/28/2023 10:49 AM EDT 07/28/2023 10:49 AM EDT us Andressa Abraham APRN.[facility] Final Result Performing Organization Address [facility] de Phone Number [facility] [address] [address], [place] * PAP FLUID CERVICAL DIAGNOSTIC (03/18/2013 11:34 AM EST) [facility] DEPARTMENT OF PATHOLOGY CYTOLOGY REPORT [id number] Submitting Physician: Jacqui Villa MD Procedure Date: [...] from every slide are reviewed by a 7th grade teacher. TRAVIS Zuniga(ASCP) [employer] Electronic Signature CLINICAL HISTORY DYSPLASIA [facility] 03/18/2013 11:3 4 AM EST 03/21/2013 9:19 AM EST us Jacqui Villa MD CYTOLOGY Final Result Performing Organization Address [facility] Co de Phone Number [facility] [address] [place] [address] from Last 3 Months or Most Recently Relevant to Health Maintenance Insurance BLUE CARD PPO OOS
--- OUTSIDE RECORDS SUMMARY | 2024-08-27 13:16 | XMS_ITS | Encounter Summary ---
Author Organization [facility] Address [address] [place] [address] Care Team Providers Care Cable Engineer Name Role Phone Karen Bolanos MD Primary Care Provider [phone] Encounter Details Date Type Department Care Team (Late st Contact Info) Description 04/29/2024 Orders Only [facility] [address] [place] [address] Shanika Rubi [facility] [place] [address] Social History Tobacco Use Types Packs/Day Years [...] [facility] [address] [place] [address] Karyna Craig PA [address] [facility] [place] [address] documented as of this encounter Goals Goal [...] documented as of this encounter Care Teams Cable Engineer Relationship Specialty Start Date End Date Karen Bolanos MD [address] [place] [address] PCP - General Family Medicine 11/10/22 documented as of this encounter
--- OUTSIDE RECORDS SUMMARY | 2024-08-27 13:16 | XMS_ITS | Encounter Summary ---
Author Organization [facility] Address [facility] [place] [address] Care Team Providers Care Salvage Mend Worker Name Role Phone Unavailable Primary Care Provider Unavailabl e Source Comments In the event this information is protected by the Federal Confidentiality of Alcohol and Drug AbusePatient Records regulations: The Federal rules restrict any use of the information to criminally investigate or prosecute any alcohol or drug abuse patient.[facility] Reason for Visit * Reason Comments Lila ordered sperm next step Encounter Details Date Type Department Care Team (Late st Contact Info) Description 11/13/2023 Telephone Reproductive Endocrinology Infertility [address] [place] [address] Andressa Abraham APRN.MOBILE APPLICATION ARCHITECT [address] [facility] [address] [place] [address] Lila ordered sperm next step Social History [...] is lower risk 5 06/08/2023 Data from: https://www.neighborhoodatlas.medicine.[facility].edu/. Last address used for calculation [address] [...]
--- OUTSIDE RECORDS SUMMARY | 2024-08-27 13:16 | XMS_ITS | Encounter Summary ---
Author Organization [facility] Address [facility] [place] [address] Care Team Providers Care Welder Railcar Mechanic Name Role Phone Unavailable Primary Care Provider Unavailabl e Source Comments In the event this information is protected by the Federal Confidentiality of Alcohol and Drug AbusePatient Records regulations: The Federal rules restrict any use of the information to criminally investigate or prosecute any alcohol or drug abuse patient.[facility] Encounter Details Date Type Department Care Team (Late st Contact Info) Description 08/18/2023 Patient Msg Reproductive Endocrinology Infertility [address] [place] [address] Andressa Abraham APRN.MOVER HELPER [address] [place] [address] Myriad Results Social History Tobacco Use Types [...] is lower risk 5 06/08/2023 Data from: https://www.neighborhoodatlas.medicine.[facility].edu/. Last address used for calculation [...]
--- OUTSIDE RECORDS SUMMARY | 2024-08-27 13:16 | XMS_ITS | Encounter Summary ---
Author Organization [facility] Address [address] [place] [address] Care Team Providers Care Conservation Or Heritage Architect Name Role Phone Karen Bolanos MD Primary Care Provider [phone] Karen Bolanos MD Unavailable [phone] Encounter Details Date Type Department Care Team (Late st Contact Info) Description 03/14/2024 Abstract [facility] [address] [place] [address] Andrea Prieto, [address] [place], [place] [id number] Social History Tobacco Use Types Packs/Day Years [...] Routine [facility] [address] [facility] [place] [phone] Karyna Craig PA [address] [facility] [place] [address] documented as of this encounter Visit Diagnoses Not on filedocumented in this encounter Care Teams Conservation Or Heritage Architect Relationship Specialty Start Date End Date Karen Bolanos MD [address] [place] [address] PCP - General Family Medicine 11/10/22 Karen Bolanos MD [address] [place] [address] PCP - Nish Medina 12/28/22 5 documented as of this encounter
--- OUTSIDE RECORDS SUMMARY | 2024-08-27 13:16 | XMS_ITS | Encounter Summary ---
Author Organization [facility] Address [address] [place] [address] Care Team Providers Care Concrete Precast Moulder Name Role Phone Karen Bolanos MD Primary Care Provider Karen Bolanos MD Unavailable [phone] Encounter Details Date Type Department Care Team (Late st Contact Info) Description 03/11/2024 Abstract [facility] [address] [place] [address] Andrea Prieto, [address] [place], [place] [id number] Social History Tobacco Use Types Packs/Day Years [...] AM EDT Routine [facility] OB [address] [place] [address] Karyna Craig PA [address] [facility] [place] [address] documented as of this encounter Visit Diagnoses Not on filedocumented in this encounter Care Teams Concrete Precast Moulder Relationship Specialty Start Date End Date Karen Bolanos MD [address] [place] [address] PCP - General Family Medicine 11/10/22 Karen Bolanos MD [address] [place] [address] PCP - Nish Medina 12/28/22 5 documented as of this encounter
--- OUTSIDE RECORDS SUMMARY | 2024-08-27 13:16 | XMS_ITS | Encounter Summary ---
Author Organization [facility] Address [facility] [place] [address] Care Team Providers Care Gear Setter Name Role Phone Unavailable Primary Care Provider Unavailabl e Source Comments In the event this information is protected by the Federal Confidentiality of Alcohol and Drug AbusePatient Records regulations: The Federal rules restrict any use of the information to criminally investigate or prosecute any alcohol or drug abuse patient.[facility] Encounter Details Date Type Department Care Team (Latest Contact Info) Description 06/15/2023 Patient Msg Reproductive Endocrinology Infertility [address] [place] [address] Andressa Abraham APRN.VOCATIONAL TECHNICAL EDUCATION DIRECTOR [address] [place] [address] Donor Sperm Handout Social History Tobacco Use [...] lower risk 5 06/08/2023 Data from: https://www.neighborhoodatlas.medicine.[facility].edu/. Last address used for calculation [address] [...]
--- OUTSIDE RECORDS SUMMARY | 2024-08-27 13:16 | XMS_ITS | Encounter Summary ---
Author Organization [facility] Address [address] [place] [address] Care Team Providers Care Breeding Technician Name Role Phone Karen Bolanos MD Primary Care Provider [phone] Encounter Details Date Type Department Care Team (Late st Contact Info) Description 07/12/2024 Abstract [facility] [address] [facility] [place] [address] Karyna Craig PA [address] [facility] [address] [place], [facility] Social History Tobacco Use Types Packs/Day Years [...] Routine [facility] BCP OB [address] [facility] [place] [address] Karyna Craig PA [address] [facility] [place] [address] documented as of this encounter Goals Goal Patient Goal Type Associated Problems Recent Progress Patient-Stated? Author Reminders Care Plan OB Reminders No Open Scheduling, Background documented as of this encounter Visit Diagnoses Not on filedocumented in this encounter Additional Health Concerns Active Problems Noted Date Diagnosed Date OB Reminders 03/28/2024 documented as of this encounter Care Teams Breeding Technician Relationship Specialty Start Date End Date Karen Bolanos MD [address] [place] [address] PCP - General Family Medicine 11/10/22 documented as of this encounter
--- OUTSIDE RECORDS SUMMARY | 2024-08-27 13:16 | XMS_ITS | Encounter Summary ---
Author Organization [facility] Address [address] [place] [address] Care Team Providers Care Poultry Pathologist Name Role Phone Karen Bolanos MD Primary Care Provider [phone] Karen Bolanos MD Unavailable [phone] Encounter Details Date Type Department Care Team (Late st Contact Info) Description 11/10/2022 Abstract [facility] [address] [place] [address] Karen Bolanos MD [address] [place] [address] Social History Tobacco Use Types Packs/Day Years [...] [facility] [place] [address] Karyna Craig PA [address] [facility] [place] [address] documented as of this encounter Visit Diagnoses Not on filedocumented in this encounter Care Teams Poultry Pathologist Relationship Specialty Start Date End Date Karen Bolanos MD [address] [place] [address] PCP - General Family Medicine 11/10/22 Karen Bolanos MD [address] [place] [address] PCP - Nish Medina 12/28/22 5 documented as of this encounter
--- OUTSIDE RECORDS SUMMARY | 2024-08-27 13:16 | XMS_ITS | Encounter Summary ---
Author Organization [facility] Address [address] [place] [address] Care Team Providers Care Iron Assorter Name Role Phone Karen Bolanos MD Primary Care Provider Karen Bolanos MD Unavailable [phone] Encounter Details Date Type Department Care Team (Late st Contact Info) Description 03/11/2024 Abstract [facility] [address] [place] [address] Andrea Prieto, [address] [place], [place] [id number] Social History Tobacco Use Types Packs/Day Years [...] Routine [facility] B[facility] OB [address] [facility] [place] [address] Karyna Craig PA [address] [facility] [place] [address] documented as of this encounter Visit Diagnoses Not on filedocumented in this encounter Care Teams Iron Assorter Relationship Specialty Start Date End Date Karen Bolanos MD [address] [place] [address] PCP - General Family Medicine 11/10/22 Karen Bolanos MD [address] [place] [address] PCP - Nish Medina 12/28/22 5 documented as of this encounter
--- OUTSIDE RECORDS SUMMARY | 2024-08-27 13:16 | XMS_ITS | Encounter Summary ---
Author Organization [facility] Address [facility] [place] [address] Care Team Providers Care Shake Splitter Name Role Phone Unavailable Primary Care Provider Unavailabl e Source Comments In the event this information is protected by the Federal Confidentiality of Alcohol and Drug AbusePatient Records regulations: The Federal rules restrict any use of the information to criminally investigate or prosecute any alcohol or drug abuse patient.[facility] Reason for Visit * Reason Comments Can they order the donor sperm samples pauline pt rt call Encounter Details Date Type Department Care Team (Late st Contact Info) Description 10/29/2023 Telephone Reproductive Endocrinology Infertility [address] [place] [address] Andressa Abraham APRN.BOXING INSTRUCTOR [address] [facility] [address] [place] [address] Can they order the donor sperm samples; [...] is lower risk 5 06/08/2023 Data from: https://www.neighborhoodatlas.medicine.[facility]/. Last address used for calculation [address] [...]
--- OUTSIDE RECORDS SUMMARY | 2024-08-27 13:16 | XMS_ITS | Clinical Summary ---
Author Organization [facility] Address [address] [place] [address] Phone Care Team Providers Care Small Parts Shaper Operator Name Role Phone Karen Bolanos MD Primary Care Provider [phone] Social History Tobacco Use Types Packs/Day Years [...] of Treatment Not on file Care Teams Small Parts Shaper Operator Relationship Specialty Start Date End Date Karen Bolanos MD [address] [place] [address] PCP - General 03/11/21
--- OUTSIDE RECORDS SUMMARY | 2024-08-27 13:16 | XMS_ITS | Clinical Summary ---
Author Organization [facility] Healthcare Address [address] [place] [address] Care Team Providers Care Costumer Name Role Phone Karen Bolanos MD Primary Care Provider [phone] Allergies No known active allergies Medications clindamycin [...] Department Care Team Description 08/24/2024 Telephone [facility] [address] [place] [address] Shanika Rubi MA 08/23/2024 2:40 PM EDT Routine [facility] [place] [address] [place] [address] Nina Prieto DO 35 weeks gestation of ; Third trimester ; Gastroesophageal reflux in 08/23/2024 Bamboo flowsheet [facility] [place] [address] [place] [address] Nina Prieto, DO 08/20/2024 Clinisync Result Encounter [facility] External Department Unsolicited Nina Prieto, DO 08/19/2024 Telephone [facility] [address] [place] [address] Nina Prieto, DO 08/14/2024 Clinisync Result Encounter [facility] External Department Unsolicited Nina Prieto, DO 08/14/2024 Clinisync Result Encounter N[facility] External Department Unsolicited Nina Prieto, DO 08/09/2024 Abstract [facility] [address] [place] [address] Nina Prieto, DO 08/08/2024 2:10 PM EDT Routine [facility] [address] [place] [address] Nina Prieto, DO Third trimester ; 33 weeks gestation of ; Gestational diabetes mellitus (GDM), antepartum, gestational diabetes method of control unspecified 08/08/2024 Bamboo flowsheet [facility] [address] [place] [address] [place] [address] Nina Prieto, DO 08/01/2024 Telephone [facility] OB [address] [place] [address] [place] [address] Nina Prieto, DO 07/25/2024 10:40 AM EDT Routine [facility] [address] [place] [address] [place] [address] Steffanie Gerard, ABDI Third trimester ; 31 weeks gestation of 07/25/2024 Bamboo flowsheet [facility] [address] [place] [address] Steffanie Gerard, ABDI 07/12/2024 Abstract [facility] [address] [place] [address] Karyna Craig PA 07/12/2024 Telephone [facility] [address] [place] [address] Karyna Craig PA 07/11/2024 11:00 AM EDT Routine [facility] [address] [place] [address] Nina Prieto DO Third trimester ; 29 weeks gestation of ; Gestational diabetes mellitus (GDM), antepartum, gestational diabetes method of control unspecified 07/11/2024 10:30 AM EDT Ancillary Procedure [facility] [address] [place] [address] 07/08/2024 Clinisync Result Encounter [facility] External Department Unsolicited Karyna Craig PA 06/22/2024 1:20 PM EDT Routine [facility] [address] [place] [address] Nina Prieto DO Second trimester ; 26 weeks gestation of ; Diabetes mellitus screening; size inconsistent with dates 06/22/2024 Bamboo flowsheet [facility] [address] [place] [address] Nina Prieto DO 05/31/2024 1:00 PM EST Ancillary Procedure [facility] [address] [place] [address] Mass of right breast, unspecified quadrant; Neoplasm of unspecified behavior of breast 05/31/2024 Travel from Last 3 Months Immunizations Immunization Administration Dates Next Due DTaP 02/08/1993, 2,1991,1991 DTaP, Unspecified 02/08/1993, 2,1991,1991 Hep B, Adolescent or Pediatric 12/08/2003 HiB, unspecified 02/08/1993, 2,1991,1991 Hib (HbOC) 02/08/1993, 2,1991,1991 Influenza, injectable, quadrivalent 06/15/2023 Influenza, injectable, quadr ivalent, preservative free 12/10/2016 MMR 09/13/2023,12/08/2003,10/27/1996 Novel [id number], preservative-free 02/16/2009 Polio, Unspecified 02/08/1993,1991, 992 Tetanus [...] Routine [facility] [address] [place] [address] Karyna Craig PA [address] [place] [address] Health Maintenance Due Date Last Done Comments [...] PM EDT Narrative 08/20/2024 1:32 [place] [address] Ultrasound Report Signed Patient: EDUAR STEWARD MR#: [id number] : 1990 Acct:[id number] Age/Sex: 34 / F ADM Date: 08/20/24 Loc: [facility] 250-[address]: Nina Prieto D.O. Ordering Physician: Nina Prieto D.O. Date of Service: 08/20/24 Procedure(s): US OB BPP w non-stress Accession Number(s): [id number] cc: Nina Prieto D.O.; NORBERTO BOLANOS [place] [id number] Patient Name: EDUAR STEWARD MRN: [id number] date: 1990 Sex: F Assigned Patient Location: [facility] Current Patient Location: [facility] Accession/Order Number: [id number] Exam Date: 08/20/2024 13:28 Report Date: 08/20/2024 [...] Blake M.D. 08/20/2024 1:30 PM Dictation Location: [place] [address] Electronically authenticated by: [id number] Y Date: 08/20/2024 13:30 Dictated By: Gunnar Blake M.D. Signed By: 08/20/24 1332 DD/ 1330 TD/TT: Justice Court Judge: Procedure Note Radiology, Radiologist, - 08/20/[address] [address] Ultrasound Report Signed Patient: EDUAR STEWARD KMR#: [id number] : 1990Acct:[id number] Age/Sex: 34 / FADM Date: 08/20/24 Loc: [facility] 250-[address]: Nina Prieto D.O. Ordering Physician: Nina Prieto D.O. Date of Service: 08/20/24 Procedure(s): US OB BPP w non-stress Accession Number(s): [id number] cc: Nina Prieto D.O.; NORBERTO BOLANOS [place] [address] Patient Name: EDUAR STEWARD MRN: [facility]:[id number] date: 1990 Sex: F Assigned Patient Location: [facility] Current Patient Location: [facility] Accession/Order Number: [id number] Exam Date: 08/20/2024 13:28 Report Date: 08/20/2024 [...] Blake M.D. 08/20/2024 1:30 PM Dictation Location: [place] [address] Electronically authenticated by: [id number] Y Date: 3:30 Dictated By: Gunnar Blake M.D. Signed By:08/20/24 1330 DD/ 1337 TD/TT: Justice Court Judge: us Nina Prieto DO [facility] Final Result * US OB GROWTH (08/14/2024 9:06 AM EDT) Anatomical Region Laterality Modality Other 08/14/2024 9:06 AM EDT Narrative 08/14/2024 9:09 [place] [address] Ultrasound Report Signed Patient: EDUAR STEWARD MR#: [id number] : 1990 Acct:[id number] Age/Sex: 34 / F ADM Date: 08/13/24 Loc: US Attending Dr: Nina Prieto D.O. Ordering Physician: Nina Prieto D.O. Date of Service: 08/13/24 Procedure(s): US OB growth Accession Number(s): [id number] cc: Nina Prieto D.O.; NORBERTO BOLANOS [place] [address] Patient Name: EDUAR STEWARD MRN: [id number] date: 1990 Sex: F Assigned Patient Location: US Current Patient Location: Accession/Order Number: [id number] Exam Date: 08/14/2024 09:01 Report Date: 08/14/2024 [...] Blake M.D. 08/14/2024 9:06 AM Dictation Location: [place] [address] Electronically authenticated by: [id number] Y Date: 08/14/2024 09:06 Dictated By: Gunnar Blake M.D. Signed By: 08/14/24908 DD/ 5 TD/TT: Justice Court Judge: Procedure Note Radiology, Radiologist, - 08/14/2024 [place] [address] Ultrasound Report Signed Patient: EDUAR STEWARD KMR#: [id number] : 1990Acct:[id number] Age/Sex: 34 / FADM Date: 08/13/24 Loc: US Attending Dr: Nina Prieto D.O. Ordering Physician: Nina Prieto D.O. Date of Service: 08/13/24 Procedure(s): US OB growth Accession Number(s): [id number] cc: Nina Prieto D.O.; NORBERTO BOLANOS [place] [address] Patient Name: EDUAR STEWARD MRN: [id number] date: 1990 Sex: F Assigned Patient Location: Current Patient Location: Accession/Order Number: [id number] Exam Date: 08/14/2024 09:01 Report Date: 08/14/2024 [...] Blake M.D. 08/14/2024 9:06 AM Dictation Location: [facility] Electronically authenticated by: [id number] Y Date: 509:06 Dictated By: Gunnar Blake M.D. Signed By:08/14/2409 DD/ 5 TD/TT: Justice Court Judge: us Nina Conner DO [facility] Final [...] II, MD, PHD at 11-Jul-2024 11:47:38 PM [facility] Procedure Note Travis Dangelo MD - [...] signed by TRAVIS DANGELO II, MD, PHD [id number] 11:47:38 PM [facility] Karyna BENITES IMG OB US PROCEDURES Final Resul t * (ABNORMAL) GLUCOSE 1 HOUR (07/08/2024 12:02 PM EDT) GLUCOSE 1 HOUR 202(H) <130 mg/dL [facility] 07/08/2024 12:0 2 PM EDT 07/08/2024 12:06 PM EDT Narrative [facility] - 07/08/2024 12:18 PM EDT us Karyna BENITES LAB BLOOD ORDERABLES Final Resul t [facility] * (ABNORMAL) ALL CBC WITH AUTO DIFF (07/08/2024 12:02 PM EDT) [facility] TB WBC 8.1 4.0 - 11.0 10 [...] Karyna ABBOTT Final Result Performing Organization Address [facility] Co de Phone Number SC[facility] * [...] ORDERABLES Final Re sult Performing Organization Address City/[facility] Co de Phone Number EXTERNAL LAB from Last 3 Months or Most Recently Relevant to Health Maintenance Additional Health Concerns Active Problems Noted Date Diagnosed Date OB Reminders 03/28/2024 Insurance [facility] Care Teams Costumer Relationship Specialty Start Date End Date Karen Bolanos MD [address] [place] [address] PCP - General Family Medicine 11/10/22
--- OUTSIDE RECORDS SUMMARY | 2024-08-27 13:17 | XMS_ITS | CCD ---
Author Organization [facility] Care Team Providers Care Hoop Puncher Name Role Phone BACEVICE, CHARLIE E Unavailable [...] Consulting Unavailable Karen Bolanos Primary Care Physician [phone] Unavailable Primary Care Provider Unavailjulio cesar e Unavailable Primary Care Provider UnavailTIARRA Jimenez Attending Unavailable TIARRA KATZ Admitting Unavailable TIARRA KATZ Attending Unavailable TIARRA KATZ Attending Unavailable Karen Bolanos MD Primary Care Provider Karen Bolanos MD Unavailable [phone] Karen Bolanos MD Primary Care Provider JARAD, [...] BOLANOS Attending Unavailable ANDREA PRIETO Attending Unavailable ANDREA PRIETO Attending Unavailable Medications Current Medications Medication Drug Class(es) Dates Sig (Normalized) Sig (Original) amoxicillin 80 mg/ml oral suspension (1 source) Penicillin-class Antibacterial Start: 02-28-2024 End: 03-09-2024 take 960 mg by mouth every twelve hours amoxicillin 400 mg/5 mL Oral Liq 960 mg = 12 mL, Oral, q12hr, X 10 day(s), # 240 mL, Refills(s) 0, Pharmacy: [facility] #[id number], 158, cm, 02/28/24 9:01:00 EST, Height/Length Dosing, [...] day Quantity: 20 Refills: 0 Ordered: 11-Mar-2021 NoahFilomena perkins Start: 11-Mar-2021 End: 20-Mar-2021 Generic Substitution Allowed [...] Glucose Monitoring Suppl (D-Care Glucometer) w/Device kit (11 sources) Start: 07-13-19 End: 07-13-19 Blood Glucose Monitoring Suppl (D-Apparent Glucometer) w/Device kit Indications: Gestational diabetes mellitus [...] oral solution (1 source) alpha-Adrenergic Agonist, Uncompetitive S-maoezw-Z-aspartate Receptor Antagonist, Sigma-1 Agonist Start: 03-11-20 End: 03-20-20 take 5 mL by mouth every four to six hours brompheniramine/pse udoephedrine/dextro methorphan 5kr-[id number]-11pw/5 mL oral syrup ; 5 milliliter(s) orally [...] doctor. isopropyl alcohol 0.7 ml/ml medicated pad (11 sources) Start: 07-12-2024 Alcohol Swabs (Alcohol Prep [...] Active Comment on above: Take by mouth. omeprazole 20 mg delayed release oral capsule (4 sources) Proton Pump Inhibitor Start: 08-24-19 End: 08-25-19 take 1 capsule by mouth before mealtime omeprazole (PriLOSEC) [address] capsule Indications: Gastroesophageal Reflux Disease , Heartburn Take 1 capsule (20 mg) by mouth in the morning. Take before meals. Do not crush or chew. 30 capsule 3 08/23/2024 08/24/2024 Discontinued vit/iron fum/folic ac ( 1 + 1 [...] 0 Start Date: 05/29/12 Status: Ordered levonorgestrel 0.030764 mg/hr intrauterine system (14 sources) Progestin, Progestin-containi ng Intrauterine Device End: 01-18-2024 levonorgestrel (MIRENA) 20 mcg/24 hr IUD 1 Each by INTRAUTERINE route one time only. 01/18/2024 Discontinued () Comment on above: 1 Each by INTRAUTERI NE route one time only. Problems Active Problems Problem Classification Problem Date Documented Date Episodic/Chronic Administrative/socia l admission (2 sources) Treatment plan given; Translations: [...] size-date discrepancy, unspecified trimester] 06-22-2024 Episodic Other complications of (2 sources) Gastroesophageal reflux disease in ; Translations: [Diseases of the digestive system complicating , unspecified trimester] 08-23-2024 Episodic Other female genital disorders (2 sources) [...] 06-01-2024 Chronic Other and delivery including normal (16 sources) test positive; Translations: [Encounter for test, [...] [33 weeks gestation of ] 08-08-2024 Episodic Residual codes; unclassified (2 sources) Gestation period, 35 weeks; Translations: [35 weeks gestation of ] 08-23-2024 Episodic Unclassified (2 sources) Complete placenta previa [...] above: COUGH, SORE THROAT, EAR PRESSURE Unclassified (20 sources) OB Reminders Onset: 03-28-2024 03-28-2024 Unclassified [...] Range Facility Urinalysis macro (dipstick) panel (U)on 08-23-2024 Bilirubin, UA Negative Negative - 4(70) +++ mg/dL [facility] Blood, UA Negative Negative - 50 Mukesh/mcL [facility] Clarity, UA Clear [facility] Color, UA Yellow [facility] Glucose, UA Negative Negative - 2000(110) ++++ mg/dL [facility] Interpretation and review of laboratory results Abnormal [facility] Ketones, UA Negative Negative - 160(16) ++++ mg/dL [facility] Leukocytes, UA Trace Negative - 500+++ Shannon/mcL [facility] Nitrite, UA Negative Negative - Positive [facility] pH, UA 7 5 - 9 [facility] Protein, UA Negative Negative - 2000(20) ++++ mg/dL [facility] Spec Grav, UA 1.015 1 - 1.03 [facility] Urobilinogen, UA 0.2 0.2 - 12 mg/dL [facility] OB BPP W NON-STRESS on 08-14-2024 [place] [id number] Ultrasound Report Signed Patient: NELLI CARPENTER MR#: [id number] : 1990 Acct:[id number] Age/Sex: 34 / F ADM Date: 08/13/24 Loc: US Attending Dr: Andrea Prieto D.O. Ordering Physician: Andrea Prieto D.O. Date of Service: 08/13/24 Procedure(s): US OB BPP w non-stress Accession Number(s): [id number] cc: Andrea Prieto D.O.; NORBERTO BOLANOS [place] [id number] Patient Name: NELLI CARPENTER MRN: [id number] date: 1990 Sex: F Assigned Patient Location: Current Patient Location: Accession/Order Number: [id number] Exam Date: 08/14/2024 08:54 Report Date: 08/14/2024 [...] Blake M.D. 08/14/2024 9:01 AM Dictation Location: [employer] Electronically authenticated by: [id number] Y Date: 08/14/2024 09:01 Dictated By: Gunnar Blake M.D. Signed By: 08/14/24903 DD/ 0 TD/TT: Therapy Site Coordinator: [facility] RadiologyTaiogsharla summers MD - 08/14/2024 [place] [address] Ultrasound Report Signed Patient: NELLI CARPENTER MR#: [id number] : 1990 Acct:[id number] Age/Sex: 34 / F ADM Date: 08/13/24 Loc: US Attending Dr: Andrea Prieto D.O. Ordering Physician: Andrea Prieto D.O. Date of Service: 08/13/24 Procedure(s): US OB BPP w non-stress Accession Number(s): [id number] cc: Andrea Prieto D.O.; NORBERTO BOLANOS [place] [address] Patient Name: NELLI CARPENTER MRN: [facility]:[id number] date: 1990 Sex: F Assigned Patient Location: US Current Patient Location: Accession/Order Number: [id number] Exam Date: 08/14/2024 08:54 Report Date: 08/14/2024 [...] Blake M.D. 08/14/2024 9:01 AM Dictation Location: [place] [address] Electronically authenticated by: [id number] Y Date: 08/14/2024 09:01 Dictated By: Gunnar Blake M.D. Signed By: 08/14/24903 DD/ 0 TD/TT: Therapy Site Coordinator: [facility] Radiology Study observation (narrative) [facility] US OB BPP W NON-STRESS Ordered By: Radiologist Radiology on 08-14-2024 [facility] [employer] Work Phone: US OB GROWTHon 08-14-2024 [place] [address] Ultrasound Report Signed Patient: NELLI CARPENTER MR#: [id number] : 1990 Acct:[id number] Age/Sex: 34 / F ADM Date: 08/13/24 Loc: US Attending Dr: Andrea Prieto D.O. Ordering Physician: Andrea Prieto D.O. Date of Service: 08/13/24 Procedure(s): US OB growth Accession Number(s): [id number] cc: Andrea Prieto D.O.; NORBERTO BOLANOS [place] [id number] Patient Name: NELLI CARPENTER MRN: [id number] date: 1990 Sex: F Assigned Patient Location: Current Patient Location: Accession/Order Number: [id number] Exam Date: 08/14/2024 09:01 Report Date: 08/14/2024 [...] Blake M.D. 08/14/2024 9:06 AM Dictation Location: [place] [address] Electronically authenticated by: [id number] Y Date: 08/14/2024 09:06 Dictated By: Gunnar Blake M.D. Signed By: 08/14/24908 DD/ 5 TD/TT: Therapy Site Coordinator: [facility] Radiology Radiologsharla summers MD - 08/14/2024 [place] [address] Ultrasound Report Signed Patient: NELLI CARPENTER MR#: [id number] : 1990 Acct:[id number] Age/Sex: 34 / F ADM Date: 08/13/24 Loc: US Attending Dr: Andrea Prieto D.O. Ordering Physician: Andrea Prieto D.O. Date of Service: 08/13/24 Procedure(s): US OB growth Accession Number(s): [id number] cc: Andrea Prieto D.O.; NORBERTO BOLANOS [place] [address] Patient Name: NELLI CARPENTER MRN: [facility]:[id number] date: 1990 Sex: F Assigned Patient Location: US Current Patient Location: Accession/Order Number: [id number] Exam Date: 08/14/2024 09:01 Report Date: 08/14/2024 [...] Blake M.D. 08/14/2024 9:06 AM Dictation Location: [place] [address] Electronically authenticated by: [id number] Y Date: 08/14/2024 09:06 Dictated By: Gunnar Blake M.D. Signed By: 08/14/24 0909 DD/ 5 TD/TT: Therapy Site Coordinator: [facility] Radiology Study observation (narrative) [facility] OB GROWTHOrdered By: Susan ologblanca Radiology on 08-14-2024 [facility] Work Phone: Urinalysis macro (dipstick) panel (U)on 08-08-2024 Bilirubin, UA Negative Negative - 4(70) +++ mg/dL [facility] Blood, UA Negative Negative - 50 Mukesh/mcL [facility] Clarity, UA Clear [facility] Color, UA Yellow [facility] Glucose, UA Negative Negative - 1999(110) ++++ mg/dL [facility] Interpretation and review of laboratory results Normal [facility] Ketones, UA Negative Negative - 160(16) ++++ mg/dL [facility] Leukocytes, UA Negative Negative - 500+++ Shannon/mcL [facility] Nitrite, UA Negative Negative - Positive [facility] pH, UA 7 5 - 9 [facility] Protein, UA Negative Negative - 2000(20) ++++ mg/dL [facility] Spec Grav, UA 1.02 1 - 1.03 [facility] Urobilinogen, UA 0.2 0.2 - 12 mg/dL [facility] Urinalysis macro (dipstick) panel (U)on 07-25-2024 Bilirubin, UA Negative Negative - 4(70) +++ mg/dL [facility] Blood, UA Negative Negative - 50 Mukesh/mcL [facility] Clarity, UA Clear [facility] Color, UA Yellow [facility] Glucose, UA Negative Negative - 1999(110) ++++ mg/dL [facility] Interpretation and review of laboratory results Abnormal [facility] Ketones, UA Negative Negative - 160(16) ++++ mg/dL [facility] Leukocytes, UA Negative Negative - 500+++ Shannon/mcL [facility] Nitrite, UA Negative Negative - Positive [facility] pH, UA 6.5 5 - 9 [facility] Protein, UA Negative Negative - 1999(20) ++++ mg/dL [facility] Spec Grav, UA 1.015 1 - 1.03 [facility] Urobilinogen, UA 1.0 0.2 - 12 mg/dL [facility] CNPNon 07-20-2024 CNPN Telephone ([id number]) NELLI CARPENTER ([id number]) 1990 Date Time Provider Department 07/20/24 HISTORICAL [id number] During your visit today, we recorded the following information about you: Jessy Lilly RN 07/20/2024 1:19 PM Signed Received outside referral from Dr. Prieto for GDM consult due to elevated 1 hour glucose 202. Called pt. To schedule appointment no answer, left message with call back phone number. BALJINDER Zaman Laura Lee 07/25/2024 11:57 AM Signed Nelli Carpenter called today. Caller's (home) [phone] (cell) Reason for call: Pt calling nurse back to be scheduled for GDM consult due to elevated 1 hour glucose 202. Jessy Zamora, BALJINDER 08/04/2024 3:24 PM Addendum Outside referral received from Dr. Prieto for elevated 1 hour glucose 202. Pt. Has all testing supplies and has been checking BS periodically. Advised pt. To start checking 4 times daily and upload to [employer]. Will send hospice home care coordinator. Other med hx: asthma, placenta [...] Date Reviewed: 01/20/2024 Reviewed by: Andressa Abraham APRN.RAW SCALES OPERATOR - Fully Assessed Prescriptions as of 08/04/2024 - vit/iron fum/folic ac ( 1 + 1 ORAL) Take by mouth. - mv-min/iron/folic/calci um/vitK (WOMEN'S MULTIVITAMIN ORAL) Take by mouth. Problem List As Of Date 07/20/2024 Noted Resolved Complete placenta previa with hemorrhage, third*12/09/2016 06/01/2024 Encounter Status:Closed by JESSY LILLY on 07/20/24 [facility] ALL CBC WITH AUTO DIFFon BASOPHILS ABSOLUTE AUTO 0 [facility] Healthcare Basophils/100 WBC (Bld) 0.2 % 0.2 - 2.0 % [facility] Eosinophils/100 WBC (Bld) 0.6 % Low 0.9 - 7.0 % [facility] Erythrocyte distribution width (RBC) [Ratio] 13.2 % 11.0 - 15.0 % [facility] Hematocrit (Bld) [Volume fraction] 34 % Low 36.0 - 48.0 % [facility] Hemoglobin (Bld) [Mass/Vol] 11.1 g/dL Low 12.0 - 16.0 g/dL [facility] IMMATURE GRANULOCYTES ABS AUTO 0.15 High [facility] Immature granulocytes/100 WBC (Bld) 1.9 % High 0.0 - 0.5 % [facility] Interpretation and review of laboratory results Abnormal [facility] LYMPHOCYTES ABSOLUTE AUTO 1.5 [facility] Lymphocytes/100 WBC (Bld) 18.9 % Low 20.5 - 60.0 % [facility] MCH (RBC) [Entitic mass] 28.6 pg 26.7 - 34.0 pg [facility] MCHC (RBC) [Mass/Vol] 32.6 g/dL 29.9 - 35.2 g/dL [facility] MCV (RBC) [Entitic vol] 87.6 fL 81.0 - 99.0 fL [facility] MONOCYTES ABSOLUTE AUTO 0.4 [facility] Monocytes/100 WBC (Bld) 5.3 % 1.7 - 12.0 % [facility] NEUTROPHILS ABSOLUTE AUTO 5.9 [facility] Neutrophils/100 WBC (Bld) 73.1 % 43.0 - 75.0 % [facility] Platelet mean volume (Bld) [Entitic vol] 10.9 fL 9.5 - 13.5 fL [facility] EO # 0.1 [facility] [address]T [address] [facility] RBC 3.[address] [facility] WBC 8.1 [facility] Urinalysis macro (dipstick) panel (U)on 06-27-2024 Bilirubin, UA Negative Negative - 4(70) +++ mg/dL [facility] Blood, UA Negative Negative - 50 Mukesh/mcL [facility] Clarity, UA Clear [facility] Color, UA Light Yellow [facility] Glucose, UA Negative Negative - 1999(110) ++++ mg/dL [facility] Interpretation and review of laboratory results Normal [facility] Ketones, UA Negative Negative - 160(16) ++++ mg/dL [facility] Leukocytes, UA Negative Negative - 500+++ Shannon/mcL [facility] Nitrite, UA Negative Negative - Positive [facility] Comment on above: ` pH, UA 6 5 - 9 [facility] Protein, UA Negative Negative - 1999(20) ++++ mg/dL [facility] Spec Grav, UA 1.025 1 - 1.03 [facility] Urobilinogen, UA 1.0 0.2 - 12 mg/dL [facility] US OB FOLLOW UP TRANSABDOMIN AL APPROACHon [...] II, MD, PHD at 11-Jul-2024 11:47:38 PM [facility] Normal Not Available Comment on above: [...] 6 oz EFW by: Hadlock (HC-AC-FL) Extended Final Coat Sprayer 4.7 mm CM 8.4 mm Nasal bone [...] normal LVOT view: normal 3-vessel view: normal 4-przoym-ofqnaej view: normal Heart / Thorax Situs: situs [...] Read By: Leonid Myers M.D. MATERNAL MEDICINE [facility] Radiology Study observation (narrative) [facility] US BREAST COMPLETE RIGHTo n 05-31-2024 US [...] GDLNon AGE GDLN ACOG TESTING Note . [facility] Comment on above: TESTS RESULT FLAG UN ITS REF RANGE LAB Clinician Provided Cytology Information Source.............[employer] Other.............. No. of containers..01 ThinPrep Vial Age Algo ACOG Akua... FLAG LEGEND: L-Low Normal,H-High Normal,LL-Alert Low,HH-Alert High <-Panic Low,>-Panic High,A-Abnormal,AA-Critical Abnormal Performed at: 01 =G [address] [address] Maribel Martin MD, HPV APTIMA Negative Negative [facility] Comment on above: This nucleic acid am plification test detects fourteen high- risk HPV types (16,18,31,33,35,39,45,51,52,56,58,59,66,68) without differentiation. Performed at: =[address] [id number] Account Financial Manager: Maribel Martin MD, Phone: [phone] Performed at: [address] [id number] Account Financial Manager: Maribel Martin MD, Phone: [phone] IGP, APTIMA HPV, RFX 16/18,45 Note . [facility] Comment on above: TESTS RESULT FLAG UN ITS REF RANGE LAB DIAGNOSIS: 02 NEGATIVE FOR INTRAEPITHELIAL LESION OR MALIGNANCY. Specimen adequacy: 02 Satisfactory for evaluation. No endocervical component is identified. An endocervical component is not commonly seen in the patient. Performed by: 02 [employer] Salesperson (ASCP) . 02 Note: Note 02 The [...] Low,>-Panic High,A-Abnormal,AA-Critical Abnormal Performed at: [address] [address] Maribel Martin MD, SPATULA-ALONE C[facility] RECURRENT VAGINITIS (HTRX)on 04-20-2024 ATOPOBIUM VAGINAE 0 [facility] ATOPOBIUM VAGINAE Not detected [facility] BVAB 2,3 (BACTERIAL VAGINOSIS ASSOCIATED BACTERIA 2, 3); MOBILUNCUS SPP 0 [facility] BVAB 2,3 (BACTERIAL VAGINOSIS ASSOCIATED BACTERIA 2, 3); MOBILUNCUS SPP Not detected [facility] JOELLE ALBICANS, PARAPSILOSIS, TROPICALIS 0 [facility] JOELLE ALBICANS, PARAPSILOSIS, TROPICALIS Not detected [facility] JOELLE GLABRATA 0 [facility] JOELLE GLABRATA Not detected [facility] JOELLE KRUSEI 0 [facility] JOELLE KRUSEI Not detected [facility] CHLAMYDIA TRACHOMATIS 0 [facility] CHLAMYDIA TRACHOMATIS Not detected [facility] GARDNERELLA VAGINALIS 0 [facility] GARDNERELLA VAGINALIS Not detected [facility] MEGASPHAERA (TYPES 1, 2) 0 [facility] MEGASPHAERA (TYPES 1, 2) Not detected [facility] MYCOPLASMA GENITALIUM 0 [facility] MYCOPLASMA GENITALIUM Not detected [facility] NEISSERIA GONORRHOEAE 0 [facility] NEISSERIA GONORRHOEAE Not detected [facility] TRICHOMONAS VAGINALIS 0 [facility] TRICHOMONAS VAGINALIS Not detected [facility] Urinalysis macro (dipstick) panel (U)on 04-19-2024 Bilirubin, UA Negative Negative - 4(70) +++ mg/dL [facility] Blood, UA Negative Negative - 50 Mukesh/mcL [facility] Clarity, UA Clear [facility] Color, UA Yellow [facility] Glucose, UA Negative Negative - 1999(110) ++++ mg/dL [facility] Interpretation and review of laboratory results Normal [facility] Ketones, UA Negative Negative - 160(16) ++++ mg/dL [facility] Leukocytes, UA Negative Negative - 500+++ Shannon/mcL [facility] Nitrite, UA Negative Negative - Positive [facility] pH, UA 7.5 5 - 9 [facility] Protein, UA Negative Negative - 1999(20) ++++ mg/dL [facility] Spec Grav, UA 1.015 1 - 1.03 [facility] Urobilinogen, UA 0.2 0.2 - 12 mg/dL [facility] ALL CBC WITH AUTO DIFFon BASOPHILS ABSOLUTE AUTO 0 [facility] Basophils/100 WBC (Bld) 0.4 % 0.2 - 2.0 % [facility] Eosinophils/100 WBC (Bld) 0.9 % 0.9 - 7.0 % [facility] Erythrocyte distribution width (RBC) [Ratio] 13.1 % 11.0 - 15.0 % [facility] Hematocrit (Bld) [Volume fraction] 36.9 % 36.0 - 48.0 % [facility] Hemoglobin (Bld) [Mass/Vol] 12.3 g/dL 12.0 - 16.0 g/dL [facility] IMMATURE GRANULOCYTES ABS AUTO 0.07 High [facility] Immature granulocytes/100 WBC (Bld) 1 % High 0.0 - 0.5 % [facility] Interpretation and review of laboratory results Abnormal [facility] LYMPHOCYTES ABSOLUTE AUTO 1.8 [facility] Lymphocytes/100 WBC (Bld) 25.9 % 20.5 - 60.0 % [facility] MCH (RBC) [Entitic mass] 29.9 pg 26.7 - 34.0 pg [facility] MCHC (RBC) [Mass/Vol] 33.3 g/dL 29.9 - 35.2 g/dL [facility] MCV (RBC) [Entitic vol] 89.6 fL 81.0 - 99.0 fL [facility] MONOCYTES ABSOLUTE AUTO 0.5 [facility] Monocytes/100 WBC (Bld) 6.4 % 1.7 - 12.0 % [facility] NEUTROPHILS ABSOLUTE AUTO 4.6 [facility] Neutrophils/100 WBC (Bld) 65.4 % 43.0 - 75.0 % [facility] Platelet mean volume (Bld) [Entitic vol] 12 fL 9.5 - 13.5 [facility]L [facility]T [address] [facility] RBC 4.12 [address] [facility] WBC 7 [facility] HCG ( test) Ql (U)o n 03-11-2024 Interpretation and review of laboratory results Abnormal [facility] Preg Test, Ur Positive Negative [facility] Urinalysis macro (dipstick) panel (U)on 03-11-2024 Bilirubin, UA Negative Negative - 4(70) +++ mg/dL [facility] Blood, UA Negative Negative - 50 Mukesh/mcL [facility] Clarity, UA Clear [facility] Color, UA Yellow [facility] Glucose, UA Negative Negative - 2000(110) ++++ mg/dL [facility] Interpretation and review of laboratory results Normal [facility] Ketones, UA Negative Negative - 160(16) ++++ mg/dL [facility] Leukocytes, UA Negative Negative - 500+++ Shannon/mcL [facility] Nitrite, UA Negative Negative - Positive [facility] pH, UA 7 5 - 9 [facility] Protein, UA Negative Negative - 1999(20) ++++ mg/dL [facility] Spec Grav, UA 1.02 1 - 1.03 [facility] Urobilinogen, UA 0.2 0.2 - 12 mg/dL [facility] Ambulatory Visit Summaryon 1 04-30-2023 Ambulatory Visit [...] with effusion Duration: 10 Days Pickup at [id number] Pharmacy Information [facility][id number]: [address] [place], [place] [id number] [phone] Allergies No Known Allergies Problems Ongoing - [...] for choosing us for your care. Leslye [facility] Family Medicine Office/Clini c Noteon 02-28-2024 Family Medicine Office/Clinic Note Family Medicine Office/Clinic Note Chief Complaint ear pain, cough, sore throat HPI Staff 33 year old female presents with bilateral ear pain- right is worse, cough, sore throat, mild head pressure, congestion symptoms began yesterday pt it 10 weeks History of Present Illness Reviewed and agree with above documented HPI by medical bill processor. Portions of this record may have been created with voice recognition artificial intelligence software, specifically [employer] and or [employer]. Substitutions may have occurred due to the inherent limitations of voice recognition and artificial intelligence software. Patient is a 33-year-old female who presents to [facility] care, for right ear pain, sinus [...] at this time. 33-year-old female presented to [facility] care, for right otitis media effusion, [...] for amoxicillin, instructed she can only take slay-crd-nkkwrik Tylenol for body aches, headaches, and fevers since she is . Given a work excuse note. Follow-up with primary care provider as needed. 1. Right otitis media with effusion (H65.91: Unspecified nonsuppurative otitis media, right ear) See above Ordered: amoxicillin, 960 mg = 12 mL, Oral, q12hr, X 10 day(s), # 240 mL, Refills(s) 0, Pharmacy: [facility] #[id number], 158, cm, 02/28/24 9:01:00 EST, Height/Length Dosing, [...] weight management wi (more content not included)... [facility] Comment on above: Result Comment: Elec tronically Signed By: MADALYN LOZADA, TIARRA\.br\Date and Time Signed: 02/28/24 09:58 EST Patient Letter [facility] [facility] [place] [facility] [place] [address] [place] [address] February 28, 2024 NELLI CARPENTER [address] [place] [id number] : 1990 Please excuse NELLI CARPENTER from work . Date and/or Time of Absence: From: 02/29/24 May return to work on: 03/01/24 Restrictions: None Comments: Please excuse due to an acute illness. Provider Signature: Tiarra Katz PA-C [address] [place] [address] [place] [address] [facility] CNNURSEon 02-09-2024 CNNURSE Nurse Visit (REIAV) NELLI CARPENTER ([id number]) 1990 F Date Time Provider Department 02/09/24 10:30 AM NURSE SARMAD [facility] REJ REIAV During your visit today, we recorded the following information about you: Parth Clark MD 02/09/2024 11:28 AM Signed Scan Visit Patient here for scan. See imaging documentation. MD Diego Bajwa Lauren, WON 02/09/2024 12:28 PM Signed Nelli Carpenter here [...] 2024 12:27 PM Referring Provider: ANDRESSA ABRAHAM [[id number]] Allergies As of Date: 02/09/2024 (No Known Allergies) Date Reviewed: 01/20/2024 Reviewed by: Andressa Abraham APRN.CNP - Fully Assessed Visit Diagnosis: resulting from assisted reproductive technology in first trimester [O09.811] Order(s):OBSTETRIC ULTRASOUND [facility] [[id number]] Order #: [id number]. #:[id number] WPOINTQty: 1 Prescriptions as of 02/09/2024 - vit/iron fum/folic ac ( 1 + 1 ORAL) Take by mouth. - mv-min/iron/folic/calci um/vitK (WOMEN'S MULTIVITAMIN ORAL) Take by mouth. Problem List As Of Date: 02/09/2024 (None) Encounter Status:Closed by PARTH CLARK on 02/09/24 [facility] Examination level ultrasound on 02-09-2024 Indication Viability; IUI done on 01-02-24; obesity >30 Impression - Single, live, intrauterine . - An intrauterine gestational sac with a yolk sac and pole is present. - [place] rump length measurement is consistent with the [...] Read By: Parth Clark M.D. MATERNAL MEDICINE [facility] Radiology Study observation (narrative) [facility] B-HCG SerPl-aCncon 4 HCG.beta subunit Qn 2270.0 m[IU]/mL High <5.0 [facility] Comment on above: Order Comment: Speci men Type: BLOOD SPECIMENOrdering Facility: [facility] Address: [address] [place] [address] Result Comment: NOBLE TITATIVE HCG NORMAL RANGES Weeks of Gestation (Weeks Since LMP) 3 Weeks (5.8-71.2 mIU/mL) 4 Weeks (9.5-750 mIU/mL) 5 Weeks (217-7138 mIU/mL) 6 Weeks (158-83879 mIU/mL) 7 Weeks (3697-537666 mIU/mL) 8 Weeks (45900-946686 mIU/mL) 9 Weeks (52340-554130 mIU/mL) 10 Weeks (06502-381005 mIU/mL) 12 Weeks (65062-573454 mIU/mL) Referenced to 4th IS of [facility] Performed By: #### 2 1198-7 ####[facility] LABIA [id number] [address] [place] B-HCG [facility] 4 HCG.beta subunit Qn 792.1 m[IU]/mL High <5.0 [facility] Comment on above: Order Comment: Speci men Type: BLOOD SPECIMENOrdering Facility: [facility] Address: [address] [place] [address] Result Comment: NOBLE TITATIVE HCG NORMAL RANGES Weeks of Gestation (Weeks Since LMP) 3 Weeks (5.8-71.2 mIU/mL) 4 Weeks (9.5-750 mIU/mL) 5 Weeks (217-7138 mIU/mL) 6 Weeks (158-62507 mIU/mL) 7 Weeks (3697-163727 mIU/mL) 8 Weeks (48322-045177 mIU/mL) 9 Weeks (14706-542681 mIU/mL) 10 Weeks (85283-882513 mIU/mL) 12 Weeks (18748-657912 mIU/mL) Referenced to 4th IS of [facility] Performed By: #### 2 1198-7 ####[facility] LABCLIA [id number] [place] [address] [place] CNPNon 01-18-2024 CNPN Telephone (REIBD) NELLI CARPENTER ([id number]) 1990 F Date Time Provider Department 01/18/24 [...] Date Reviewed: 11/23/2023 Reviewed by: Andressa Abraham APRN.RAW SCALES OPERATOR - Fully Assessed Reason for Visit: +hpt 01/15 after an iui [Other] Primary Visit Diagnosis:Encounter for test, result positive [Z32.01] Order(s):HCG QUANTITATIVE [SQHCGQT] Order #: [id number] STANDING Prescriptions as of 01/18/2024 - vit/iron [...] Encounter Status:Closed by JESSI YOO on 01/18/24 [facility] CNOVon 01-02-2024 CNOV Office Visit (REIBD) NELLI CARPENTER ([id number]) 1990 F Date Time Provider Department 01/02/24 [...] Cycle Day: 15 Last menstrual period: 12/19/2023 [place]ina Protocol: UNIVERSAL PROTOCOL / SAFETY CHECKLIST Procedure [...] discussed with the Patient or Patient's Authorized Net C Developer. As applicable, any other physician, advance practice provider, medical student, or other health professional student that will be observing or involved in the sensitive examination for educational or training purposes was discussed with the Patient or Authorized Net C Developer. The Patient or Authorized Net C Developer has agreed to proceed with the sensitive examination. (Sensitive examination includes inspection and/or palpation of the breasts, pelvis, prostate and anorectal regions) Patient declined dialysis technician. IUI IUI Date: 01/02/24 Partner's Name: Wanda [...] 01/02/2024 11:46 AM Signed IUI Xytex #: [id number] Washed frozen specimen Post: 122 m/ml, 63% Insem#: 34.7 million Referring Provider: ANDRESSA ABRAHAM [[id number]] Allergies As of Date: 01/02/2024 (No Known Allergies) Date Reviewed: 11/23/2023 Reviewed by: Andressa Abraham APRN.LEXUS - Fully Assessed Primary Visit Diagnosis:Encounter for [...] Encounter Status:Closed by ANYI GANT on 01/02/24 [facility] CNOV Office Visit (ANDRBE ) NELLI CARPENTER ([id number]) 1990 F Date Time Provider Department 01/02/24 10:30 AM ANDROLOGY CLOTH WORK[facility] During your visit today, we recorded the following information about you: Flavia Elizondo 01/02/2024 11:47 AM Signed Thaw for IUI Flavia Elizondo Referring Provider: ANDRESSA ABRAHAM [[id number]] Allergies As of Date: 01/02/2024 (No Known [...] Encounter Status:Closed by FLAVIA ELIZONDO on 01/02/24 [facility] CNOVon 12-05-2023 CNOV Office Visit (REIBD) NELLI CARPENTER ([id number]) 1990 F Date Time Provider Department 12/05/23 10:00 AM MYRIAM DOMINGUEZ During your visit today, we recorded the following information about you: Stephanie Laar 12/06/2023 8:45 AM Signed IUI specimen released [...] Cycle Day: 15 Last menstrual period: 11/21/2023 [place] Protocol: UNIVERSAL PROTOCOL / SAFETY CHECKLIST Procedure [...] EMERGENT procedures): No specimen collected. Patient declined dialysis technician. Uma Aguilera MD IUI IUI Date: 12/05/23 [...] after wash): 49 million Donor ID #: [id number] Cycle reviewed, all questions answered. Pt instructed to take a test in 17 days if no menses and call with results. SIGNATURE: Uma Aguilera MD PATIENT NAME: Nelli Carpenter DATE: December 05, 2023 TIME: 10:31 AM I was present and immediately available for the entire procedure. Patient underwent an intrauterine insemination. Myriam Dominguez MD, TRUDY Lara Stephanie 12/06/2023 8:45 AM Signed IUI Xytex #[id number] Frozen washed specimen Post: 145 Million/mL, 68% Insem #: 49 Million Referring Provider: ANDRESSA ABRAHAM [[id number]] Allergies As of Date: 12/05/2023 (No Known Allergies) Date Reviewed: 11/23/2023 Reviewed by: Andressa Abraham, WINDY.RAW SCALES OPERATOR - Fully Assessed Primary Visit Diagnosis:Female [...] Status:Closed by MYRIAM DOMINGUEZ on 12/06/23 [facility] CNOV Office Visit (ANDRBE ) NELLI CARPENTER ([id number]) 1990 F Date Time Provider Department 12/05/23 9:30 AM ANDROLOGY CLOTH WORKER [facility] During your visit today, we recorded the following information about you: Stephanie Lara 12/05/2023 10:23 AM Signed Thaw for IUI Stephanie Marco Referring Provider: ANDRESSA ABRAHAM [[id number]] Allergies As of Date: 12/05/2023 (No Known [...] Of Date: 12/05/2023 (None) Encounter Status:Closed by MARCO STEPHANIE on 12/05/23 [facility] [id number] 11-23-2023 HNO ID: [id number] Author: ANDRESSA ABRAHAM APRN.CNP Service: ? Author [...] Comments: None Andressa Abraham APRN.CNP 11/23/2023 [facility] Progest [facility] 024 Progesterone [Mass/Vol] 7.4 ng/mL Normal See comment [facility] Comment on above: Order Comment: Speci men Type: BLOOD SPECIMENOrdering Facility: [facility] Address: [address] [place] [address] Result Comment: Mens trual Cycle Progesterone Reference Ranges: Follicular: <1.0 ng/mL Ovulation: <12.1 ng/mL Luteal: 1.8 to 23.9 ng/mL. Progesterone Reference Ranges vary by gestational period: First Trimester: 11.0 to 44.3 ng/mL Second Trimester: 25.4 to 83.3 ng/mL Third Trimester: 58.7 to 214 ng/mL Post menopausal Progesterone: <0.5 ng/mL Reference: 1. Progesterone (Progesterone III) [package insert V 1.0 American]. [employer], [place], [place]. December 2014. Performed By: #### 2 839-9 ####[facility] LABCLIA [id number] [facility] [id number] [place] [address] OF [facility] Azar 10-12-2023 CNPN Telephone (REIBD) NELLI CARPENTER ([id number]) 1990 F Date Time Provider Department 10/12/23 [...] Date Reviewed: 09/11/2023 Reviewed by: Andressa Abraham APRN.CNP - Fully Assessed Reason for Visit: +ovulation test SatANDSund d14 AND 15 partner calling [Other] Primary Visit Diagnosis:Female infertility [N97.9] Order(s):PROGESTERONE [SQPROG] Order #: [id number] FUTURE Prescriptions as of 10/12/2023 - vit/iron fum/folic ac ( 1 + 1 ORAL) Take by mouth. - mv-min/iron/folic/calci um/vitK (WOMEN'S MULTIVITAMIN ORAL) Take by mouth. - BIOTIN ORAL Take by mouth once daily. - levonorgestrel (MIRENA) 20 mcg/24 hr IUD 1 Each by INTRAUTERINE route one time only. Problem List As Of Date: 10/12/2023 (None) Encounter Status:Closed by JESSI YOO on 10/12/23 [facility] CNOVon 09-11-2023 CNOV Office Visit (REIBD) NELLI CARPENTER ([id number]) 1990 F Date Time Provider Department 09/11/23 [...] 12 - 26 day long cycle LMP 6/2 Treatment plan: pending - likely natural cycle/IUI. [...] favorite donors - send to me via Coine[employer] to confirm Confirmed best vial type to order: IUI/prewashed Will need to follow up to firm up treatment plan and review IUI scheduling instructions. Andressa Abraham APRN.RAW SCALES OPERATOR September 11, 2023 8:08 AM I spent a total of 50 minutes on the date of the service which included preparing to see the patient, ozlk-dz-xwmc patient care, completing clinical documentation, obtaining and/or [...] to communic (more content not included)... [facility] Ambulatory Visit Summaryon 1 05-17-2022 Ambulatory Visit Summary CHUCKY CARPENTERAmilcar Hernández :1990 Visit Date:03/16/2023 Ambulatory Visit Instructions Your Diagnosis Wrist pain Your Care Team Attending Physician - MADALYN LOZADA, TIARRA Primary Care Physician - Karen Bolanos MD This Is Your Medications List cyclobenzaprine (Flexeril [...] for choosing us for your care. Leslye [facility] Family Medicine Office/Clini c Noteon 03-16-2023 Family [...] data available Patient Education Wrist Pain, Adult, Dtyq-jx-Xeny Problem List/Past Medical History Ongoing Acute sinusitis [...] 1990 Recorded Normal [facility] Comment on above: Result Comment: [...] any changes in your symptoms. ? Take bgwc-cek-tfmgdpr and prescription medicines only as told by [...] Reviewed: 02/02/2020 Elsevier Patient Education ? 2022 [employer] [facility] XR Wrist 3+ Views Righton XR Wrist [...] mGy = . DAP = . Normal [facility] Covid 19 Resultson 1 SARS-CoV-2 (COVID-19) RNA [...] may also be contacted by the [facility] of Health to see if any of your close [...] or Naproxen (Aleve) can also be used. Kfmy-cpn-vdoposi cough and cold medicines can be used according to the instructions on the package. Some beqj-bzx-rzmijdc medicines also contain acetaminophen. Make sure you [...] water are not available, use alcohol-based hand jewelry facer. Avoid touching your eyes, nose, and mouth [...] 24 de (more content not included)... Normal [facility] INFLUENZA A/B, COVID 2019 PC R,SYMPTOMATICon 03-12-2021 INFLUENZA A, PCR Not detected Normal Not Detected [facility] Comment on above: Result Comment: Resp iratory virus testing is performed routinely by PCR for Influenza A/B and RSV. If Influenza and RSV PCR are negative, testing for parainfluenza 1,2,3 viruses and adenovirus is routinely performed for oncology inpatients and intensive care unit patients at [facility] and is available on request on other patients by calling Laboratory Client Services at [phone]. Not Detected results do not preclude Influenza A/B or RSV infections since the adequacy of sample collection or low viral burden may impact the clinical sensitivity of this test method. Performed By: #### C OINP #### [facility] [address] [place] [address] INFLUENZA B, PCR Not detected Normal Not Detected [facility] Comment on above: Result Comment: Resp iratory virus testing is performed routinely by PCR for Influenza A/B and RSV. If Influenza and RSV PCR are negative, testing for parainfluenza 1,2,3 viruses and adenovirus is routinely performed for oncology inpatients and intensive care unit patients at [facility] and is available on request on other patients by calling Laboratory Client Services at [phone] Not Detected results do not preclude Influenza [...] by the Microbiology Laboratory, Department of Pathology, [facility], [place], [place]. It has not been cleared or approved by the US Food and Drug Administration; however, FDA clearance or approval is not currently required for clinical use. This test should not be regarded as investigational or for research purposes. Performed By: #### C OINP #### [facility] [address] [place] [address] SARS-CoV-2 (COVID-19) RNA PENNY+probe Ql (Unsp spec) Not detected Normal Not Detected [facility] Comment on above: Result Comment: . [...] patient management decisions. Fact sheet for providers: https://www.fda.gov/media/321569/download Fact sheet for patients: https://www.fda.gov/media/464627/download This test has received FDA Emergency Use Authorization (EUA) and has been verified by [facility] ([facility]). This test is only authorized for the duration of time that circumstances exist to justify the authorization of the emergency use of in vitro diagnostic tests for the detection of SARS-CoV-2 virus and/or diagnosis of COVID-19 infection under section 564(b)(1) of the Act, 21 U.S.C. 360bbb-3(b)(1), unless the authorization is terminated or revoked sooner. [facility] is certified under CLIA-88 as qualified to perform high complexity testing. Testing is performed in the [facility] laboratories located at [address] [place] [address]. Performed By: #### C OINP #### [address] [place] [address] INFLUENZA A/B, COVID 2019 PC R,SYMPTOMATICon 03-11-2021 DATE OF SYMPTOM ONSET [YYYYMMDD]? [id number] Normal [facility] Comment on above: Performed By: #### C OINP #### [address] [place] [address] Lab Specimen Source Nasal, Nasopharyngeal Normal [facility] Comment on above: Performed By: #### C OINP #### [address] [place] [address] Provider Note - ED v2on 02-27 Provider [...] a day Drug Name: brompheniramine/pseudoe phedrine/dextromethorph an 7yb-92au-18wp/5 mL oral syrup Instructions: 5 milliliter(s) orally every 4 to 6 hours, As Needed Drug Name: cetirizine 10 mg oral tablet Instructions: 1 tab(s) orally once a day SIGNIFICANT EVENTS: Other Description:NO SURGICAL HISTORY THIS YEAR Additional Notes:02/2021 Description:NON SMOKER Additional Notes:02/2021 Past Medical History Description:NO CHRONIC HEALTH ISSUES Additional Notes:02/2021 BUILDING AND CONSTRUCTION MANAGER: Is : no Is : no [...] SIGNS: T PRBP SpO2O2(LPM) %FiO2 Method 11-Mar-2021 10:17:[id number]/67 97 PHYSICAL EXAM CONSTITUTIONAL: Appearance: well appearing [...] Electronic Signatures for Addendum Section: Filomena Zamora (WATCH CRYSTAL MOLDER-RAW SCALES OPERATOR) (Signed Addendum 12-Mar-2021 09:58) Left message for call back regarding test results for pt, and her 2 daughters. Filomena Zamora (WATCH CRYSTAL MOLDER-RAW SCALES OPERATOR) (Signed Addendum 12-Mar-2021 13:53) Spoke with patient and advised her of negative Covid test results, patien (more content not included)... Normal [facility] Hemoglobin and Hematocriton 12-10-2016 Hematocrit (HCT) 30.2 % Low 36.5-46.6 [facility] Comment on above: Performed By: #### 2 [id number] ####[facility] [address] [place] [address] Hemoglobin mass conc (Bld) 9.8 g/dL Low 11.8-15.3 [facility] Comment on above: Performed By: #### 2 [id number] ####[facility] [address] [place] [address] CBC With Differentialon 11-28 Basophils Auto #/vol (Bld) 0.05 10*3/uL Normal 0.01-0.07 [facility] Comment on above: Performed By: #### 2 [id number] ####[facility] [address] [place] [address] Basophils/100 WBC Auto (Bld) 0.5 % Normal 0.1-1.2 [facility] Comment on above: Performed By: #### 2 [id number] ####[facility] [address] [place] [address] Eosinophils 0.08 10*3/uL Normal 0.04-0.50 [facility] are Comment on above: Performed By: #### 2 [id number] ####[address] [place] [address] Eosinophils/100 leukocytes 0.7 % Normal 0.0-8.1 [facility] Healthcare Comment on above: Performed By: #### 2 167939 ####[address] [address] Erythrocyte distribution width Auto Ratio (RBC) 14.8 % Normal 12.0-15.4 [facility] Healthcare Comment on above: Performed By: #### 2 778895 ####[facility] [address] [place] [address] Erythrocytes (RBC) 0.0 /100{WBCs} Normal [facility] Comment on above: Performed By: #### 2 101363 ####[address] [place] [address] Erythrocytes (RBC) 3.87 10*6/uL Normal 3.85-5.10 [facility] Comment on above: Performed By: #### 2 354734 ####[facility] [address] [place] [address] Erythrocytes (RBC) 0.00 10*3/uL Normal [facility] Healthcare Comment on above: Performed By: #### 2 [id number] ####[facility] [address] [place] [address] Hematocrit (HCT) 34.5 % Low 36.5-46.6 [facility] Comment on above: Performed By: #### 2 144723 ####[facility] [address] [facility] [place] [address] Hemoglobin mass conc (Bld) 11.4 g/dL Low 11.8-15.3 [facility] Healthcare Comment on above: Performed By: #### 2 [id number] ####[facility] [address] [facility] [place] [address] Imm Grans Absolute 0.55 10*3/uL High 0.00-0.21 [facility] Healthcare Comment on above: Performed By: #### 2 177381 ####[facility] [address] [facility] [place] [address] Immature granulocytes #/vol (Bld) 5.0 % Normal [facility] Comment on above: Performed By: #### 2 [id number] ####[facility] [address] [facility] [place] [address] Lymphocytes 1.91 10*3/uL Normal 0.40-2.84 [facility] Healthc are Comment on above: Performed By: #### 2 342687 ####[facility] [address] [facility] [place] [address] Lymphocytes/100 leukocytes 17.2 % Normal 15.7-50.5 [facility] Healthcare Comment on above: Performed By: #### 2 571716 ####[facility] [address] [facility] [place] [address] MCH 29.5 pg Normal 27.5-33.0 [facility] Healthcare Comment on above: Performed By: #### 2 251195 ####[facility] [address] [place] [address] MCHC mass conc (RBC) 33.0 g/dL Normal 30.1-35.0 [facility] Comment on above: Performed By: #### 2 880836 ####[facility] [address] [place] [address] MCV 89.1 fL Normal 85.4-100.0 [facility] Healthcare Comment on above: Performed By: #### 2 840353 ####[facility] [address] [place] [address] Monocytes 0.84 10*3/uL High 0.25-0.83 [facility] Healthca re Comment on above: Performed By: #### 2 112408 ####[facility] [address] [place] [address] Monocytes/100 leukocytes 7.6 % Normal 4.8-12.7 [facility] Comment on above: Performed By: #### 2 878555 ####[facility] [address] [place] [address] Neutrophils 7.66 10*3/uL High 1.95-6.85 [facility] are Comment on above: Performed By: #### 2 876043 ####[facility] [address] [facility] [place] [address] Neutrophils/100 leukocytes 69.0 % Normal 36.8-73.2 [facility] Comment on above: Performed By: #### 2 801888 ####[facility] [address] [facility] [place] [address] Platelet mean volume (PMV) 10.7 fL Normal 9.9-12.1 [facility] Comment on above: Performed By: #### 2 448969 ####[facility] [address] [facility] [place] [address] Platelets 197 10*3/uL Normal 155-404 [facility] Comment on above: Performed By: #### 2 968933 ####[facility] [address] [facility] [place] [address] RDW SD 48.2 fL Normal 39.3-48.6 [facility] Comment on above: Performed By: #### 2 670957 ####[facility] [address] [facility] [place] [address] WBC (Leukocytes) 11.1 10*3/uL High 4.4-9.9 [facility] althcare Comment on above: Performed By: #### 2 784620 ####[facility] [address] [facility] [place] [address] Pathology ([facility])on 12-09-2016 Pathology ([facility]) FINAL SURGICAL PATHOLOGY [id number] FINAL DIAGNOSISPLACENTA-THIRD TRIMESTER PLACENTA WITH ACCESSORY LOBE , 470 GRAMS.FOCAL FIBRIN PLAQUE FORMATION.FOCAL DYSTROPHIC MICROCALCIFICATIONS.THR EE-VESSEL UMBILICAL CORD, NEGATIVE FOR FUNISITIS. MEMBRANES, NEGATIVE FOR CHORIOAMNIONITIS.CLINIC AL HISTORY: 37 WEEKS INTRAUTERINE , HISTORY OF PREVIA WITH BLEEDINGOPERATION:PRIMA RY SECTIONSPECIMEN(S):(A) PLACENTA, THIRD TRIMESTERPerformed at [facility], [address] [place] [id number] DESCRIPTION:Received fresh, labeled with the patient's name, [...] are intact and range from0.05-0.1 cm in diameter.Net C Developer sections of cord, membranes, and placenta are submitted in sixcassettes.TASSummary of cassettes:A1 - cordA2, A3 - membranesA4, A5, A6 - territory service representative sections of placentaSigned Out by:ANABEL PITTMANeported: 12/11/2016 Normal [facility] Comment on above: Performed By: #### S UR ####[facility] [address] [place] [address] Red Blood Cellson 12-09-2016 Erythrocytes (RBC) Normal [facility] Comment on above: Result Comment: [id number] released Performed By: #### R C ####[facility] (UNKNOWN)[facility] [place], [place] [address] Type and Screenon 12-09-2016 Antibody Screen Negative Normal [facility] Healt hcare Comment on above: Performed By: #### T S3 ####[facility] [address] [place] [address] Group and Rh Positive Normal [facility] re Comment on above: Performed By: #### T S3 ####[facility] [address] [place] [address] PREG COMPL ECHO W/O NIKKI ALIZA VEYon [...] length of 3.3 cm. Normal [facility] Healthcare Culture Urineon 11-06-2016 Culture Urine STATUS: FINAL REPORT SITE: SOURCE: Urine Culture Urine: <1,000 cfu/ml--No growth Normal [facility] Comment on above: Performed By: #### [id number] ####[facility] [address] [place] [address] Vital Signs Date Time Vital Sign Value Performing Clinician Facility 08-23-2024 15:07-0400 Body mass index (BMI) [Ratio] 39.7 kg/m2 Andrea Conner DO Work Phone: [facility] 08-23-2024 15:07-0400 Body weight 101.66 kg Andrea Conner DO Work Phone: [facility] 08-23-2024 15:07-0400 Diastolic blood pressure 78 mm[Hg] Andrea Conner DO Work Phone: [facility] 08-23-2024 15:07-0400 Systolic blood pressure 120 mm[Hg] Andrea Conner DO Work Phone: [facility] 08-08-2024 14:32-0400 Body mass index (BMI) [Ratio] 39.33 kg/m2 Andrea Conner DO Work Phone: [facility] 08-08-2024 14:32-0400 Body weight 100.7 kg Andrea Conner DO Work Phone: [facility] 08-08-2024 14:32-0400 Diastolic blood pressure 78 mm[Hg] Andrea Conner DO Work Phone: [facility] 08-08-2024 14:32-0400 Systolic blood pressure 122 mm[Hg] Andrea Conner DO Work Phone: [facility] 07-25-2024 11:01-0400 Body mass index (BMI) [Ratio] 39.55 kg/m2 Dina Borjaly PRODUCT SPECIALIST Work Phone: [facility] 07-25-2024 11:01-0400 Body weight 101.27 kg Dina Leeerly PRODUCT SPECIALIST Work Phone: [facility] 07-25-2024 11:01-0400 Diastolic blood pressure 80 mm[Hg] Dina Moustapha PRODUCT SPECIALIST Work Phone: [facility] 07-25-2024 11:01-0400 Systolic blood pressure 116 mm[Hg] Dina Moustapha PRODUCT SPECIALIST Work Phone: [facility] 07-11-2024 11:22-0400 Body mass index (BMI) [Ratio] 39.37 kg/m2 Andrea Conner DO Work Phone: [facility] 07-11-2024 11:22-0400 Body weight 100.81 kg Andrea Conner DO Work Phone: [facility] 07-11-2024 11:22-0400 Diastolic blood pressure 80 mm[Hg] Andrea Conner DO Work Phone: [facility] 07-11-2024 11:22-0400 Systolic blood pressure 120 mm[Hg] Andrea Conner DO Work Phone: [facility] 06-22-2024 13:40-0400 Body mass index (BMI) [Ratio] 39.33 kg/m2 Andrea Conner DO Work Phone: [facility] 06-22-2024 13:40-0400 Body weight 100.7 kg Andrea Conner DO Work Phone: [facility] 06-22-2024 13:40-0400 Diastolic blood pressure 74 mm[Hg] Andrea Conner DO Work Phone: [facility] 06-22-2024 13:40-0400 Systolic blood pressure 118 mm[Hg] Andrea Conner DO Work Phone: [facility] 04-19-2024 10:48-0500 Body mass index (BMI) [Ratio] 37.2 kg/m2 Andrea Conner DO Work Phone: [facility] 04-19-2024 10:48-0500 Body weight 95.25 kg Andrea Conner DO Work Phone: [facility] 04-19-2024 10:48-0500 Diastolic blood pressure 80 mm[Hg] Andrea Conner DO Work Phone: [facility] 04-19-2024 10:48-0500 Systolic blood pressure 122 mm[Hg] Andrea Conner DO Work Phone: [facility] 02-28-2024 09:00-0500 Blood Pressure Location [facility] 02-28-2024 09:00-0500 Body temperature 98.96 [degF] [facility] 02-28-2024 09:00-0500 Diastolic blood pressure 80 mm[Hg] [facility] 02-28-2024 09:00-0500 Heart rate 92 /min [facility] 02-28-2024 09:00-0500 SaO2% (BldA) [Mass fraction] 98 % [facility] 02-28-2024 09:00-0500 Systolic blood pressure 124 mm[facility]Hg[facility] 12-28-2023 08:37-0400 Body height 160 cm Karen Bolanos MD Work Phone: [facility] 12-28-2023 08:37-0400 Body mass index (BMI) [Ratio] 37.02 kg/m2 Karen Bolanos MD Work Phone: [facility] 12-28-2023 08:37-0400 Body temperature 98.6 [degF] Karen Bolanos MD Work Phone: [facility] 12-28-2023 08:37-0400 Body weight 94.8 kg Karen Bolanos MD Work Phone: [facility] 12-28-2023 08:37-0400 Diastolic blood pressure 78 mm[Hg] Karen Bolanos MD Work Phone: [facility] 12-28-2023 08:37-0400 Heart rate 76 /min Karen Bolanos MD Work Phone: [facility] 12-28-2023 08:37-0400 SaO2% (BldA) [Mass fraction] 98 % Karen Bolanos MD Work Phone: [facility] 12-28-2023 08:37-0400 Systolic blood pressure 116 mm[Hg] Karen Bolanos MD Work Phone: [facility] 06-08-2023 09:50-0400 Body height 160 cm Rahul Zheng MD Work Phone: [facility] 06-08-2023 09:50-0400 Body weight 89 kg Rahul Zheng MD Work Phone: [facility] 06-08-2023 09:50-0400 Diastolic blood pressure 83 mm[Hg] Rahul Zheng MD Work Phone: [facility] 06-08-2023 09:50-0400 Systolic blood pressure 132 mm[Hg] Rahul Zheng MD Work Phone: [facility] 03-16-2023 15:08-0500 Blood Pressure Location TIARRA KATZ [facility] 03-16-2023 15:08-0500 Body temperature 98.42 [degF] TIARRA KATZ [facility] 03-16-2023 15:08-0500 Diastolic blood pressure 84 mm[Hg] TIARRA KATZ [facility] 03-16-2023 15:08-0500 Heart rate 73 /min TIARRA MARXTIZ [facility] 03-16-2023 15:08-0500 SaO2% (BldA) [Mass fraction] 96 % TIARRA KATZ [facility] 03-16-2023 15:08-0500 Systolic blood pressure 128 mm[Hg] TIARRA KATZ [facility] 03-11-2021 12:17-0500 Body height 160 cm Karen Luis Miguel Other Phone: [facility] 03-11-2021 12:17-0500 Body temperature 98.06 [degF] Karen Luis Miguel Other Phone: [facility] 03-11-2021 12:17-0500 Diastolic blood pressure 67 mm[Hg] Karen Luis Miguel Other Phone: [facility] 03-11-2021 12:17-0500 Heart rate 78 /min Karen Luis Miguel Other Phone: [facility] 03-11-2021 12:17-0500 Respiratory rate 20 /min Karen Luis Miguel Other Phone: [facility] 03-11-2021 12:17-0500 SaO2% (BldA) [Mass fraction] 97 % Karen Luis Miguel Other Phone: [facility] 03-11-2021 12:17-0500 Systolic blood pressure 101 mm[Hg] Karen Luis Miguel Other Phone: [facility] Encounters Encounter Date Encounter Type Care Provider Facility Start: 08-23-2024 End: 08-23-2024 ambulatory ANDREA CONNER Not Available Start: 08-23-2024 End: 08-23-2024 flow sheet Andrea Conner DO Work Phone: [facility] Comment on above: 35 weeks gestation o f ; Third trimester ; Gastroesophageal reflux in Start: 08-23-2024 End: 08-23-2024 Bamboo flowsheet Andrea Conner DO Work Phone: [facility] Start: 08-23-2024 End: 08-23-2024 Bamboo flowsheet Andrea Conner DO Work Phone: [facility] Start: 08-14-2024 End: 08-14-2024 Clinisync Result Encounter [...] Start: 07-25-2024 End: 07-25-2024 Bamboo flowsheet Dina Gerard PRODUCT SPECIALIST Work Phone: [facility] Start: 07-25-2024 End: 07-25-2024 Bamboo flowsheet Dina Gerard PRODUCT SPECIALIST Work Phone: [facility] Start: 07-25-2024 End: 07-25-2024 flow sheet Dina Gerard PRODUCT SPECIALIST Work Phone: [facility] Comment on above: Third trimester preg will; 31 weeks gestation of Start: 07-25-2024 End: 07-25-2024 ambulatory DINA GERARD Not Available Start: 07-20-2024 End: 07-20-2024 Telephone [...] dates Start: 06-01-2024 End: 06-01-2024 ambulatory TRISTAN SOSA Facility:[facility] Start: 06-01-2024 End: 06-01-2024 Patient encounter procedure Whi Tech 3 Helicopter Technician m [facility] Comment on above: Encounter for anatomic survey (Primary Dx); Obesity affecting in second trimester, unspecified obesity type; Class 1 obesity without serious comorbidity with body mass index (BMI) of 34.0 to 34.9 in adult, unspecified obesity type; 23 weeks gestation of Start: 05-31-2024 End: 05-31-2024 ambulatory ANDREA CONNER Not Available Start: 05-27-2024 End: 05-27-2024 Transcribe Orders Helicopter Technician Transcribe Provider Maternal Medicine Comment on above: Encounter for anatomic survey (Primary Dx) Start: 04-19-2024 End: 04-19-2024 Bamboo flowsheet Andrea Conner DO Work Phone: [facility] Start: 04-19-2024 End: 04-22-2024 Bamboo flowsheet Andrea Conner DO Work Phone: [facility] Start: 04-19-2024 End: 04-22-2024 Clinisync Result Encounter Andrea Conner DO Work Phone: [facility] External Department Unsolicited Start: 04-19-2024 End: 04-20-2024 External Result Encounter Andrea Conner DO Work Phone: [facility] External Department Unsolicited Start: 04-19-2024 End: 04-19-2024 Patient encounter procedure Andrea Conner DO Work Phone: [facility] Healthcare Start: 04-19-2024 End: 04-19-2024 Periodic preventive med est patient 18-39 yrs Anrdea Conner DO Work Phone: [facility] Comment on above: Well woman exam with routine gynecological exam; Screening, , for anatomic survey; Vaginal discharge; STD exposure; Second trimester ; 16 weeks gestation of ; Mass of right breast, unspecified quadrant; Neoplasm of unspecified behavior of breast; Other acne Start: 04-19-2024 End: 04-19-2024 ambulatory ANDREA CONNER Not Available Start: 03-14-2024 End: 03-14-2024 Clinisync Result Encounter Andrea Conner DO Work Phone: [facility] External Department Unsolicited Start: 03-14-2024 End: 03-14-2024 Clinisync Result Encounter Andrea Conner DO Work Phone: [facility] External Department Unsolicited Start: 03-11-2024 End: 03-11-2024 Office outpatient visit 5 minutes [facility] Conner Nurse [facility] Comment on above: GA: 11w6d Start: 03-11-2024 End: 03-11-2024 ambulatory ANDREA PRIETO Not Available Start: 02-28-2024 End: 02-28-2024 ambulatory TIARRA KATZ Facility: [place] Start: 02-28-2024 End: 02-28-2024 Patient encounter procedure TIARRA KATZ [facility] Start: 02-16-2024 End: 02-16-2024 ambulatory Andressa Tulio Jarad WATCH CRYSTAL MOLDER.RAW SCALES OPERATOR Work Phone: [facility] Comment on above: Records Start: 02-09-2024 End: 02-09-2024 Nursing evaluation of patient and report Fern Lamar MD Work Phone: [facility] Comment on above: resulting from assisted reproductive technology in first trimester Start: 02-09-2024 End: 02-09-2024 ambulatory ANDRESSA Tulio ABRAHAM Facility:[facility] Start: 01-21-2024 End: 01-21-2024 [facility] Start: 01-20-2024 End: 01-20-2024 ambulatory Andressa Antunez Jarad WATCH CRYSTAL MOLDER.RAW SCALES OPERATOR Work Phone: [facility] Comment on above: resulting from assisted reproductive technology in first trimester (Primary Dx) Start: 01-20-2024 End: 01-20-2024 Telemedicine consultation with patient Andressa Abraham WATCH CRYSTAL MOLDER.RAW SCALES OPERATOR Work Phone: [facility] Start: 01-19-2024 End: 01-19-2024 ambulatory JESSI OLI Facility:[facility] Start: 01-18-2024 End: 01-18-2024 Telephone encounter Andressa Tluio Jarad WATCH CRYSTAL MOLDER.RAW SCALES OPERATOR Work Phone: [facility] Comment on above: +hpt 01/15 after an iui Start: 01-02-2024 End: 01-02-2024 ambulatory ANYI GANT Facility:[facility] Start: 01-02-2024 End: 01-02-2024 Patient encounter procedure Anyi Gant MD Work Phone: [facility] Comment on above: Encounter for artifi cial insemination (Primary Dx) Procreative manageme nt (Primary Dx) Start: 12-30-2023 End: 12-30-2023 ambulatory ANDRESSA ABRAHAM Facility:[facility] Start: 12-28-2023 End: 12-28-2023 Shreyas Bolanos MD [...] Start: 12-05-2023 End: 12-05-2023 ambulatory ANDRESSA ABRAHAM Facility:[facility] Start: 12-05-2023 End: 12-05-2023 Patient encounter procedure Andrology [employer] Chemist Work Phone: [facility] Comment on above: Procreative manageme nt (Primary Dx) Female infertility ( Primary Dx) Start: 12-04-2023 End: 12-04-2023 ambulatory Andressa Abraham WATCH CRYSTAL MOLDER.RAW SCALES OPERATOR Work Phone: [facility] Comment on above: Financial clearance Start: 11-23-2023 End: 11-23-2023 ambulatory Andressa Abraham WATCH CRYSTAL MOLDER.RAW SCALES OPERATOR Work Phone: [facility] Comment on above: Reproductive mgmt, i nfertility due to male factor (Primary Dx) Start: 11-23-2023 End: 11-23-2023 Telemedicine consultation with patient Andressa Abraham WATCH CRYSTAL MOLDER.RAW SCALES OPERATOR Work Phone: [facility] Start: 10-29-2023 E-mail encounter lona m caregiver Vidhya Mishrawaldemar WATCH CRYSTAL MOLDER.RAW SCALES OPERATOR Work Phone: [facility] Start: 10-29-2023 Follow-up encounter Vidhya Squires diananaldo WATCH CRYSTAL MOLDER.RAW SCALES OPERATOR Work Phone: [facility] Comment on above: Follow up Start: 10-16-2023 End: 10-16-2023 ambulatory JESSI YOO Facility:[facility] Start: 10-12-2023 Telephone encounter Andressa Abraham WATCH CRYSTAL MOLDER.RAW SCALES OPERATOR Work Phone: [facility] Comment on above: +ovulation test Thu& Sund d14 & 15 partner calling Start: 10-05-2023 ambulatory Andressa goldstein WATCH CRYSTAL MOLDER.RAW SCALES OPERATOR Work Phone: [facility] Comment on above: Doner Start: 09-11-2023 End: 09-11-2023 ambulatory ANDRESSA ABRAHAM Facility:[facility] Start: 09-11-2023 End: 09-11-2023 Patient encounter procedure Andressa Antunez Jarad WATCH CRYSTAL MOLDER.RAW SCALES OPERATOR Work Phone: [facility] Comment on above: Encounter for fertil ity planning (Primary Dx) Start: 07-28-2023 Telephone encounter Rahul carroll MD Work Phone: [facility] Comment on above: Lila bloodwork compl eted today Start: 06-15-2023 End: 06-15-2023 ambulatory Andressa Abraham WATCH CRYSTAL MOLDER.RAW SCALES OPERATOR Work Phone: [facility] Comment on above: Encounter for fertil ity planning (Primary Dx); Encounter for other genetic testing of female for procreative management Start: 06-15-2023 End: 06-15-2023 Telemedicine consultation with patient Andressa Anayaangie TEMPLE.RAW SCALES OPERATOR Work Phone: [facility] Start: 06-08-2023 End: 06-08-2023 Patient encounter procedure Rahul Zheng MD Work Phone: [facility] Comment on above: Procreative manageme nt counseling (Primary Dx); BMI 34.0-34.9,adult Start: 03-16-2023 End: 03-16-2023 ambulatory TIARRA KATZ [facility] Start: 03-16-2023 End: 03-16-2023 Patient encounter procedure TIARRA MARXTIZ [facility] Start: 03-19-2022 End: 03-19-[address] ANDREA PRIETO Facility: Start: 03-11-2021 End: 03-11-2021 Emergency department patient visit Filomena Bennettid [facility] Start: 12-09-2016 End: 12-11-2016 Evaluation and management of inpatient KE[place] Facility:[facility] Start: 12-03-2016 Ambulatory KEITH [place] Facility: [facility] Start: 11-13-2016 End: 11-13-2016 Ambulatory CHARLIE JOEL Facility:[facility] Start: 11-06-2016 Ambulatory CHARLIE JOEL Faci lity:[facility] Procedures Date Procedure Procedure Detail Performing Clinician Start: 08-23-2024 Urnls dip stick/tabl et rgnt non-auto w/o micrscp Andrea Conner DO Work Phone: Start: 08-14-2024 US OB GROWTH Andrea Fazi [...] uterus after 1st trimest 03/30 gestation Tristan Sosa WATCH CRYSTAL MOLDER.RAW SCALES OPERATOR Work Phone: Start: 04-19-2024 RECURRENT VAGINITIS (HTRX) [...] after 1st trimest 03/30 gestation Andressa Abraham WATCH CRYSTAL MOLDER.RAW SCALES OPERATOR Work Phone: Start: 03-19-2022 Microscopic observat ion [Identifier] in Cervix by Cyto stain Karen Bolanos MD Work Phone: section TIARRA CALVO Removal of intrauter ine device TIARRA KATZ Plan of Treatment Date Care Activity Detail Author Start: 04-19-2029 Screening for malign ant neoplasm of cervix [facility] Start: 03-19-2025 Screening for malign ant neoplasm of cervix [facility] Start: 11-28-2024 Influenza vaccination Influenz a Vaccine (Season Ended) [facility] Start: 08-31-2024 End: 08-31-2024 Patient encounter procedure 08/31/2024 11:20 AM EDT Routine [facility] [address] [place] [id number] Karyna Craig PA [address] [place] [address] [facility] Start: 08-23-2024 End: 08-23-2024 Patient encounter procedure 08/23/2024 1:10 PM EDT Routine [facility] [address] [place] [id number] Karyna Craig, PA [address] [place] [address] [facility] Start: 08-08-2024 End: 08-08-2024 Patient encounter procedure [facility] Comment on above: Arrived Start: 08-08-2024 End: 02-08-2025 US biophysical profile w non stress test US biophysical profile w non stress test Imaging Routine Third trimester 33 weeks gestation of Gestational diabetes mellitus (GDM), antepartum, gestational diabetes method of control unspecified Expected: 08/08/2024 (Approximate), Expires: 02/08/2025 [facility] Work Phone: Comment on above: Expected: 08/08/2024 (Approximate), Expires: 02/08/2025 Start: 08-08-2024 End: 12-09-2024 US for US OB follow up transabdominal approach Imaging Routine Third trimester 33 weeks gestation of Gestational diabetes mellitus (GDM), antepartum, gestational diabetes method of control unspecified Expected: 08/08/2024, Expires: 12/09/2024 [facility] Comment on above: Expected: 08/08/2024 , Expires: 12/09/2024 Start: 07-25-2024 End: 07-25-2024 Patient encounter procedure [facility] Comment on above: Arrived Start: 07-11-2024 End: 07-11-2024 Patient encounter procedure 07/11/2024 11:00 AM EDT [facility] [address] [place] [address] Andrea Prieto, DO [address] [place] [address] [facility] Start: 07-11-2024 End: 07-11-2024 Professional / ancillary services management 07/11/2024 10:30 AM EDT Ancillary Procedure [facility] [address] [place] [id number] [facility] Start: 07-05-2024 End: 07-05-2024 Patient encounter procedure 07/05/2024 11:00 AM EDT Office Visit [facility] [address] [place] [address] Andrea Prieto, DO [address] [place] [address] [facility] Start: 06-22-2024 End: 06-22-2025 CBC panel - Blood by Automated count CBC Lab Routine Diabetes mellitus screening Expected: 06/22/2024 (Approximate), Expires: 06/22/2025 [facility] Comment on above: Expected: 06/22/2024 (Approximate), Expires: 06/22/2025 Start: 06-22-2024 End: 06-22-2025 Measurement of glucose 1 hour after glucose challenge for glucose tolerance test Glucose tolerance, 1 hour Lab Routine Diabetes mellitus screening Expected: 06/22/2024 (Approximate), Expires: 06/22/2025 [facility] Comment on above: Expected: 06/22/2024 (Approximate), Expires: 06/22/2025 Start: 06-22-2024 End: 06-22-2025 US for US OB follow up transabdominal approach Imaging Routine size inconsistent with dates Expected: 06/22/2024, Expires: 06/22/2025 [facility] Work Phone: Comment on above: Expected: 06/22/2024 , Expires: 06/22/2025 Start: 06-01-2024 End: 06-01-2024 Patient encounter procedure 06/01/2024 11:00 AM EST Routine Office Visit Maternal Medicine [facility] [address] [place] [address] anatomy Maternal Medicine [facility] Comment on above: anatomy Start: 05-27-2024 End: 05-27-2025 OBSTETRIC ULTRASOUND WHI OBSTETRIC ULTRASOUND WHI Anc Imaging Routine Encounter for anatomic survey Expected: 05/27/2024, Expires: 05/27/2025 [place] Work Phone: Comment on above: Expected: 05/27/2024 , Expires: 05/27/2025 Start: 04-19-2024 End: 06-17-2024 Alpha fetoprotein, maternal Alpha fetoprotein, maternal Lab Routine Screening, , for anatomic survey Expected: 04/19/2024 (Approximate), Expires: 06/17/2024 [facility] Comment on above: Expected: 04/19/2024 (Approximate), Expires: [...] AM EST Routine [facility] [address] [place] [address] Andrea Prieto DO [address] [place] [address] Arrived [facility] Comment on above: Arrived Start: 04-12-2024 End: 04-12-2024 Patient encounter procedure 04/12/2024 11:10 AM EST Routine [facility] [address] [place] [address] Andrea Prieto, DO [address] [place], [place] [id number] [facility] Start: 03-11-2024 End: 03-11-2025 ABO/Rh ABO/Rh Lab Routine Missed menses , unspecified gestational age Expected: 03/11/2024 (Approximate), Expires: 03/11/2025 [facility] Comment on above: Expected: 03/11/2024 (Approximate), Expires: 03/11/2025 Start: 03-11-2024 End: 03-11-2025 Blood type and Indirect antibody screen panel - Blood Type and screen Lab Routine Missed menses , unspecified gestational age Expected: 03/11/2024 (Approximate), Expires: 03/11/2025 [facility] Work Phone: Comment on above: Expected: 03/11/2024 (Approximate), Expires: 03/11/2025 Start: 03-11-2024 End: 03-11-2025 Drugs of abuse panel - Urine by Screen method Rapid drug screen, urine Lab Routine , unspecified gestational age Encounter for supervision of normal first in first trimester Expected: 03/11/2024 (Approximate), Expires: 03/11/2025 [facility] Comment on above: Expected: 03/11/2024 (Approximate), Expires: 03/11/2025 Start: 02-09-2024 End: 02-09-2024 Nursing evaluation of patient and report 02/09/2024 10:30 AM EST Nurse Visit [facility] [address] [place] [address] Ollie, Nurse Sarmad Formerly [facility] [address] [place] [address] ob scan [facility] Comment on above: ob scan Start: 01-25-2024 End: 01-25-2024 Patient encounter procedure 01/25/2024 9:40 AM EDT Office Visit [facility] [address] [place] [address] Andrea Prieto, DO [address] [place] [address] [place] [address] [facility] Start: 01-20-2024 End: 01-19-2025 OBSTETRIC ULTRASOUND WHI OBSTETRIC ULTRASOUND WHI Anc Imaging Routine resulting from assisted reproductive technology in first trimester Expected: 01/20/2024, Expires: 01/19/2025 [place] Work Phone: Comment on above: Expected: 01/20/2024 , Expires: 01/19/2025 Start: 12-28-2023 End: 12-28-2023 Patient encounter procedure 12/28/2023 8:20 AM EDT Office Visit ANTONELLA SHERMAN [address] [place] [id number] Karen Bolanos MD [address] [place] [address] Arrived [facility] SHERMAN Comment on above: Arrived Start: 12-05-2023 End: 12-05-2023 Patient encounter procedure [facility] Comment on above: donor thaw IUI-D Start: 11-29-2023 Covid-19 Vaccine ( season) Covid-19 Vaccine ( season) [facility] Start: 11-29-2023 Covid-19 Vaccine ( season) Covid-19 Vaccine ( season) [facility] Start: 11-29-2023 Influenza vaccination Influenza Vacc ine (#1) [facility] Start: 10-12-2023 End: 01-11-2024 Progesterone [Mass/volume] in Serum or Plasma PROGESTERONE Lab Routine Female infertility Expected: 10/12/2023, Expires: 01/11/2024 [place] Work Phone: Comment on above: Expected: 10/12/2023 , Expires: 01/11/2024 Start: 06-15-2023 End: 09-14-2023 CARRIER SCREEN, EXPANDED CARRIER SCREEN, EXPANDED Lab Routine Encounter for other genetic testing of female for procreative management Expected: 06/15/2023, Expires: 09/14/2023 [place] Work Phone: Comment on above: Expected: 06/15/2023 , Expires: 09/14/2023 Start: 03-30-2023 Behavioral Health Screening Behavioral Health Screening [facility] Start: 03-30-2023 Depression Assessment Depression Ass essment [facility] Start: 11-28-2022 Covid-19 Vaccine () Covid-19 Vaccine () [facility] Start: 11-28-2022 Influenza vaccination Influenza Vacc ine (#1) [facility] Start: 08-01-2021 Screening for malign ant neoplasm of cervix [facility] Start: 03-18-2018 Screening for malign ant neoplasm of cervix Pap Testing [facility] Start: 03-18-2016 Screening for malign ant neoplasm of cervix Cervical Cancer Screening [facility] Start: 08-01-2009 Anxiety Screening Anxiety Screening [facility] Start: 08-01-2009 Depression Screening Depression Scre ening [facility] Start: 08-01-2009 Hepatitis C screening Hepatitis C Sc reening [facility] Start: 08-01-2009 HIV screening HIV Screening [facility] Start: 01-05-2004 Hepatitis B Vaccine (2 of 3 - 3-dose series) Hepatitis B Vaccine (2 of 3 - 3-dose series) [facility] Start: 08-01-2002 Urine microalbumin profile DTaP,Tdap,Td Vaccine (5 - Tdap) [facility] Bacteria identified in Urine by Culture Urine culture Microbiology Routine Missed menses Ordered: 03/11/2024 [facility] Comment on above: Ordered: 03/11/2024 CBC W Auto Different ial panel - Blood CBC and differential Lab Routine Missed menses , unspecified gestational age Ordered: 03/11/2024 [facility] Comment on above: Ordered: 03/11/2024 CHLAMYDIA TRACHOMATI S (GENITO/STI) CHLAMYDIA TRACHOMATIS (GENITO/STI) Lab Routine Vaginal discharge STD exposure Ordered: 04/19/2024 [facility] Comment on above: Ordered: 04/19/2024 End: 01-17-2025 Choriogonadotropin.beta subunit [Units/volume] in Serum or Plasma HCG QUANTITATIVE Lab Routine Encounter for test, result positive 2x per week for 2 Occurrences starting 01/18/2024 until 01/17/2025 [place] Work Phone: Comment on above: 2x per week for 2 Oc currences starting 01/18/2024 until 01/17/2025 Cytology Cervical or vaginal smear or scraping study Pap Smear Pathology and Cytology Routine Well woman exam with routine gynecological exam Ordered: 04/19/2024 [facility] Work Phone: Comment on above: Ordered: 04/19/2024 Hemoglobin A1c/Hemoglobin.total in Blood Hemoglobin A1c Lab Routine Missed menses , unspecified gestational age Ordered: 03/11/2024 [facility] Comment on above: Ordered: 03/11/2024 Hepatitis B virus surface Ag [Presence] in Serum or Plasma by Immunoassay Hepatitis B surface antigen Lab Routine Missed menses , unspecified gestational age Ordered: 03/11/2024 [facility] Comment on above: Ordered: 03/11/2024 Hepatitis C virus Ab [Presence] in Serum or Plasma by Immunoassay Hepatitis C antibody Lab Routine Missed menses , unspecified gestational age Ordered: 03/11/2024 [facility] Comment on above: Ordered: 03/11/2024 HIV-1/HIV-2 antigen/antibody combination immunoassay HIV-1 and HIV-2 antibodies Lab Routine Missed menses , unspecified gestational age Ordered: 03/11/2024 [facility] Comment on above: Ordered: 03/11/2024 Human papilloma viru s DNA [Presence] in Unspecified specimen by Probe with amplification HPV DNA probe, amplified Microbiology Routine Well woman exam with routine gynecological exam Ordered: 04/19/2024 [facility] Comment on above: Ordered: 04/19/2024 Neisseria gonorrhoea e DNA [Presence] in Unspecified specimen by PENNY with probe detection Neisseria gonorrhea DNA probe, direct Lab Routine Vaginal discharge STD exposure Ordered: 04/19/2024 [facility] Comment on above: Ordered: 04/19/2024 Reagin Ab [Presence] in Serum by RPR RPR Lab Routine Missed menses , unspecified gestational age Ordered: 03/11/2024 [facility] Comment on above: Ordered: 03/11/2024 Rubella antibody, IgG Rubella an tibody, IgG Lab Routine Missed menses , unspecified gestational age Ordered: 03/11/2024 [facility] Comment on above: Ordered: 03/11/2024 SURESWAB(R) ADVANCED VAGINITIS PLUS, TMA SURESWAB(R) ADVANCED VAGINITIS PLUS, TMA Pathology and Cytology Routine Vaginal discharge STD exposure Ordered: 04/19/2024 [facility] Comment on above: Ordered: 04/19/2024 Immunizations Immunization Date Immunization Notes Care Provider Marcos riley 09-13-2023 measles, mumps and rubella virus vaccine Karen Bolanos MD Work Phone: [facility] 06-15-2023 influenza, injectable, quadrivalent, contains preservative Karen Bolanos MD Work Phone: [facility] 06-15-2023 influenza virus vaccine, unspecified formulation Andressa Anayaangie UPTON Work Phone: [facility] 08-17-2020 SARS-CoV-2 (COVID-19 ) mRNA-1273 vaccine [facility] 07-20-2020 SARS-CoV-2 (COVID-19 ) mRNA-1273 vaccine [facility] 12-10-2016 influenza virus vaccine, unspecified formulation [facility] 12-10-2016 influenza, injectable, quadrivalent, preservative free Karen Bolanos MD Work Phone: [facility] 02-16-2009 novel [id number], preservative-free, injectable Karen Bolanos MD Work Phone: [facility] 12-08-2003 hepatitis B vaccine, pediatric or pediatric/adolescent dosage TIARRA KATZ [facility] 12-08-2003 measles, mumps and rubella virus vaccine [facility] 12-08-2003 tetanus toxoid, adsorbed Karen Bolanos MD Work Phone: [facility] 10-27-1996 measles, mumps and rubella virus vaccine [facility] 02-08-1993 diphtheria, tetanus toxoids and acellular pertussis vaccine Karen Bolanos MD Work Phone: [facility] 02-08-1993 diphtheria, tetanus toxoids and acellular pertussis vaccine, unspecified formulation Karen Bolanos MD Work Phone: [facility] 02-08-1993 DTaP, unspecified formulation [facility] 02-08-1993 haemophilus influenzae type b vaccine, conjugate unspecified formulation Karen Bolanos MD Work Phone: [facility] 02-08-1993 haemophilus influenzae type b vaccine, HbOC conjugate Karen Bolanos MD Work Phone: [facility] 02-08-1993 Hib, unspecified formulation [facility] 02-08-1993 poliovirus vaccine, unspecified formulation Karen Bolanos MD Work Phone: [facility] 02-07-1992 diphtheria, tetanus toxoids and acellular pertussis vaccine Karen Bolanos MD Work Phone: [facility] 02-07-1992 diphtheria, tetanus toxoids and acellular pertussis vaccine, unspecified formulation Karen Bolanos MD Work Phone: [facility] 02-07-1992 DTaP, unspecified formulation TIARRA KATZ [facility] 02-07-1992 haemophilus influenzae type b vaccine, conjugate unspecified formulation Karen Bolanos MD Work Phone: [facility] 02-07-1992 haemophilus influenzae type b vaccine, HbOC conjugate Karen Bolanos MD Work Phone: [facility] 02-07-1992 Hib, unspecified formulation TIARRA KATZ [facility] 1991 diphtheria, tetanus toxoids and acellular pertussis vaccine Karen Bolanos MD Work Phone: [facility] 1991 diphtheria, tetanus toxoids and acellular pertussis vaccine, unspecified formulation Karen Bolanos MD Work Phone: [facility] 1991 DTaP, unspecified formulation TIARRA KATZ [facility] 1991 haemophilus influenzae type b vaccine, conjugate unspecified formulation Karen Bolanos MD Work Phone: [facility] 1991 haemophilus influenzae type b vaccine, HbOC conjugate Karen Bolanos MD Work Phone: [facility] 1991 Hib, unspecified formulation TIARRA KATZ [facility] 1991 poliovirus vaccine, unspecified formulation Karen Bolanos MD Work Phone: [facility] 1991 diphtheria, tetanus toxoids and acellular pertussis vaccine Karen Bolanos MD Work Phone: [facility] 1991 diphtheria, tetanus toxoids and acellular pertussis vaccine, unspecified formulation Karen Bolanos MD Work Phone: [facility] 1991 DTaP, unspecified formulation TIARRA KATZ [facility] 1991 haemophilus influenzae type b vaccine, conjugate unspecified formulation Karen Bolanos MD Work Phone: [facility] 1991 haemophilus influenzae type b vaccine, HbOC conjugate Karen Bolanos MD Work Phone: [facility] 1991 Hib, unspecified formulation TIARRA KATZ [facility] 1991 poliovirus vaccine, unspecified formulation Karen Bolanos MD Work Phone: [facility] NEGATED: Highlighted row has not occurred!03-16-2023 influenza virus vaccine, unspecified formulation TIARRA KATZ [facility] Payers Date Payer Category Payer Unknown [id number] 2022 [facility] [id number] [id number] 2022 Unknown 2022 Unknown [id number] 1991 Unknown [id number] 2.16.84 [id number] 1991 Unknown [id number] 2.16.8 [id number] 1991 Unknown [id number] 2.16.8 [id number] 1991 Unknown [id number] 2.16.8 [id number] 1991 Unknown [id number] 2.16.84 [id number] 1991 Unknown [id number] 2.16.84 [id number] 1991 Unknown [id number] 2.16.84 [id number] 1991 Unknown [id number] 2.16.84 [id number] 1991 Unknown [id number] 2.16.84 [id number] 1991 Unknown [id number] 2.16.84 [id number] 1991 Unknown [id number] 2.16.84 [id number] 1991 Unknown [id number] 2.16.84 [id number] 1991 Unknown [id number] 2.16.84 [id number] 1991 Unknown [id number] 2.16.84 [id number] 1959 Unknown [id number] Unknown [id number] Social History Date Type Detail Facility [facility] Tobacco smoking consumption unknown [facility] Start: 11-11-2022 End: 03-16-2023 Tobacco smoking status Never smoked tobacco (finding) [facility] Tobacco smoking status Never [facility] Start: 06-08-2023 End: 12-28-2023 Sex Assigned At Female [facility] Start: 04-12-2012 End: 11-11-2022 Tobacco use and exposure Smokeless tobacco non-user [facility] Start: 06-08-2023 End: 08-23-2024 Alcohol intake Current drinker of alcohol (finding) [facility] Start: 06-08-2023 End: 12-28-2023 History of Social function [facility] Start: 04-12-2012 Alcohol [facility] Start: 1991 Sex Assigned At Not on file [facility] Start: 1991 Sex Assigned At [facility] Start: 06-11-2022 Gender identity Identifies as female gender (finding) [facility] Start: 01-12-2023 Sexual orientation Homosexual (findi ng) [facility] Start: 11-10-2022 Alcohol Comment 1-2 drinks les [...] meal for a total of 4times daily. [id number] Start: 07-12-2024 End: 08-11-2024 1 each by In Vit ro route Daily Use to check FSBS four times daily [id number] Start: 07-12-2024 End: 08-11-2024 Goals Date Patient Goal Desired Activity /State Personal health goal Functional Status Date Assessment Result Facility 02-28-2024 Functional Status N/A [facility] 03-16-2023 Functional Status N/A [facility] Clinical Notes 03-16-2023 to 08-23-2024 Jocelyn Posadas LPN - 08/23/2024 2:40 PM EDBolivar Rubi MA - 08/08/2024 2:10 PM Lewis Gerard NP - 07/25/2024 10:40 AM Loli Johnson MA - 07/11/2024 11:00 AM EDTPatient Instructions Note Date & Type Note Facility 08-23-2024 History of Presen t illness Narrative Reason [...] episode of recurrent major depressive disorder (HCC) ([facility]/HCC) 12/28/2023 Restless leg 12/28/2023 Resolved Ambulatory [...] nursing note reviewed. Exam conducted with a dialysis technician present. Vitals: Estimated body mass index is 39.7 kg/m as calculated from the following: Height [...] Andrea Prieto DO documented in this encounter [facility] 08-08-2024 History of Presen t illness Narrative Reason for Appointment: Patient ID: Nelli Carpenter is a 34 y.o. female who presents for Routine Visit Patient presents today for Return OB appointment. MEDICATIONS Current Outpatient Medications Medication Instructions Alcohol Swabs (Alcohol Prep Pad) 70 % pads 1 Pad, Topical, Daily, Use four times daily to check FSBS. Blood Glucose Monitoring Suppl (D-Apparent Glucometer) w/Device kit 1 kit, Does not [...] episode of recurrent major depressive disorder (HCC) ([facility]/HCC) 12/28/2023 Restless leg 12/28/2023 Resolved Ambulatory [...] nursing note reviewed. Exam conducted with a dialysis technician present. Vitals: Estimated body mass index is [...] changes & patient will send results for Shelter Director next Thursday. Patient is also to start NST/BPP. Order will be sent to TB FB anf TB Scheduling. Patient given handout as well. Patient to have sugars monitored locally and is going to cancel upcoming appointment with [facility] telemedicine. Orders Placed This Encounter Procedures POCT urinalysis dipstick manually resulted Follow Up: Patient is to return to office in 3 week for routine OB appointment. Documented by Liane Manzano LPN on behalf of: Andrea Prieto DO documented in this encounter [facility] 07-25-2024 History of Presen t illness Narrative Reason for Appointment: Patient ID: Nelli Carpenter is a 33 y.o. female who presents for Routine Visit Patient presents today for Return OB appointment. MEDICATIONS Current Outpatient Medications Medication Instructions Alcohol Swabs (Alcohol Prep Pad) 70 % pads 1 Pad, Topical, Daily, Use four times daily to check FSBS. Blood Glucose Monitoring Suppl (D-Apparent Glucometer) w/Device kit 1 kit, Does not [...] episode of recurrent major depressive disorder (HCC) ([facility]/HCC) 12/28/2023 Restless leg 12/28/2023 Resolved Ambulatory [...] nursing note reviewed. Exam conducted with a dialysis technician present. Vitals: Estimated body mass index is [...] Patient has completed level 2 Ultrasound at [facility] but has not yet met with MFM. [...] Dina Gerard NP documented in this encounter [facility] 07-20-2024 Telephone encounter Note Received outside referral from Dr. Prieto for GDM consult due to elevated 1 hour glucose 202. Called pt. To schedule appointment no answer, left message with call back phone number. Jessy Lilly RN [facility] 07-20-2024 Miscellaneous Notes Received outside referral from Dr. Prieto for GDM consult due to elevated 1 hour glucose 202. Called pt. To schedule appointment no answer, left message with call back phone number. Jessy Lilly RN documented in this encounter [facility] 07-11-2024 History of Presen t illness Narrative [...] episode of recurrent major depressive disorder (HCC) ([facility]/HCC) 12/28/2023 Restless leg 12/28/2023 Resolved Ambulatory [...] nursing note reviewed. Exam conducted with a dialysis technician present. Vitals: Estimated body mass index is [...] Diabetic and referral will be done to [facility] for Diabetic management. Patient aware that supplies will be sent to pharmacy to take with her to referral appointment. Documented by Liane Manzano LPN on behalf of: Andrea Prieto DO documented in this encounter [facility] 06-22-2024 History of Presen t illness Narrative [...] by KAMARI Zavala documented in this encounter [facility] 06-01-2024 Note HNO ID: [id number] Author: LEONID MYERS MD Service: ? Author Type: Physician Type: Progress Notes Filed: 06/01/2024 15:07 Note Text: Please see ultrasound report for details of this visit. Leonid Myers M.D. [facility] 06-01-2024 History of Presen t illness Narrative Please see ultrasound report for details of this visit. Leonid Myers M.D. documented in this encounter [facility] 04-19-2024 History of Presen t illness Narrative Reason for Appointment: Patient ID: Nelli Carpenter is a 33 y.o. female who presents for Routine Visit Patient presents today for Annual Exam., STD Check., and Return OB appointment. MEDICATIONS No current outpatient medications ALLERGIES No Known Allergies PROBLEMS Active Ambulatory Problems Diagnosis Date Noted Mild episode of recurrent major depressive disorder (HCC) ([facility]) 12/28/2023 Restless leg 12/28/2023 Resolved Ambulatory Problems Diagnosis Date Noted No Resolved Ambulatory Problems Past Medical History: Diagnosis Date Asthma (CMS/HCC) BMI 28.0-28.9,adult Depression screening GERD (gastroesophageal reflux disease) History of chlamydia infection HPV in female Well woman exam HISTORY PAST MEDICAL HISTORY SOCIAL HISTORY Past Medical History: Diagnosis Date Asthma ([facility]) BMI 28.0-28.9,adult Depression screening GERD (gastroesophageal [...] nursing note reviewed. Exam conducted with a dialysis technician present. Vitals: Estimated body mass index is 37.2 kg/m as calculated from the following: Height as of 12/27/24: 5' 3 . Weight as of this [...] to be obtained. Pt being referred to [facility] for level II ultrasound for [...] Andrea Prieto DO documented in this encounter [facility] 03-11-2024 History of Presen t illness Narrative [...] or undercooked meat, and stay away from [facility]. Patient has also been advised to [...] Jacqui Ferguson LPN documented in this encounter [facility] 02-28-2024 Hospital Discharg e instructions Patient Education [...] Centers for Disease Control and Prevention: cdc.gov [place] [employer]: heart.org National Heart, Lung, and Blood [place]: nhlbi.nih.gov This information is not intended to replace advice given to you by your health care provider. Make sure you discuss any questions you have with your health care provider. Document Revised: 12/04/2022 Document Reviewed: 11/27/2022 [employer] Patient Education 2023 [employer]. 02/28/2024 09:57:52 Otitis Media, Adult, Eryz-yc-Pkiu Otitis Media, Adult Otitis media is a [...] pain. Follow these instructions at home: Take krpz-osp-hzksulv and prescription medicines only as told by [...] provider. Document Revised: 06/24/2021 Document Reviewed: 06/24/2021 [employer] Patient Education 2023 [employer]. Follow Up Care 02/28/2024 08:48:51 With:Luis Miguel CANTU, Karen Crandall Address: [address] [place] [address]- When: Unknown [facility] 02-28-2024 Note Patient Education ENT [...] Follow these instructions at home: ??? Take zizn-tra-ltndmxo and prescription medicines only as told by [...] provider. Document Revised: 06/24/2021 Document Reviewed: 06/24/2021 [employer] Patient Education ? 2023 [employer] Nutrition BMI for Adults Body mass [...] (Inserted Image. Un (more content not included)... [facility] 02-09-2024 Note HNO ID: [id number] Author: VIDHYA PITT APRN.[facility] Service: ? Author Type: Nurse Practitioner Type: Progress Notes Filed: 02/09/2024 12:28 Note Text: Nelliamilcar aCrpenter here today for a scan. This is [...] Plan Move on to OB Vidhya Pitt APRN.[facility] February 09, 2024 12:27 PM [facility] 02-09-2024 History of Presen t illness [...] Parth Clark MD documented in this encounter [facility] 02-09-2024 Note HNO ID: [id number] Author: PARTH CLARK MD Service: ? Author Type: Physician Type: Progress Notes Filed: 02/09/2024 11:28 Note Text: Scan Visit Patient here for scan. See imaging documentation. Parth Clark MD [facility] 01-20-2024 Note HNO ID: [id number] Author: ANDRESSA ABRAHAM APRN.[facility] Service: ? Author [...] visit. Either the patient or their legal territory service representative has been informed of the risks [...] which included preparing to see the patient, lzdo-iz-kzsk patient care, completing clinical documentation, obtaining and/or [...] grammatical and typographical errors missed in proofreading. [facility] 01-20-2024 History of Presen t illness [...] visit. Either the patient or their legal territory service representative has been informed of the risks [...] schedule the patient for the following- Location: [place] Provider: nurse Visit type: scan Reason for visit/appointment notes: scan Date: 02/08 Time (requested): 1030 If slot is full, please schedule the closest open slot. Call to patient needed: no I spent a total of 30 minutes on the date of the service which included preparing to see the patient, txcd-rj-qywz patient care, completing clinical documentation, obtaining and/or [...] missed in proofreading. documented in this encounter [facility] 01-18-2024 Telephone encounter Note Patient calls with [...] Yoo PA-C January 18, 2024 4:02 PM [facility] 01-18-2024 Miscellaneous Notes Patient calls with positive [...] Labs ordered: hCG x 2 FYI Angelica Jessi Yoo PA-C January 18, 2024 4:02 PM Please call patient back regarding next steps. documented in this encounter [facility] 01-18-2024 Telephone encounter Note Please call patient back regarding next steps. [facility] Work Phone: 01-02-2024 Note HNO ID: [id number] Author: FLAVIA ELIZONDO, ? Service: ? Author Type: District Superintendent Type: Progress Notes Filed: 01/02/2024 11:47 Note Text: Thaw for IUI Flavia Elizondo [facility] 01-02-2024 History of Presen t illness Narrative Thaw for IUI Flavia Elizondo documented in this encounter [facility] 01-02-2024 Note HNO ID: [id number] Author: FLAVIA ELIZONDO, ? Service: ? Author Type: District Superintendent Type: Progress Notes Filed: 01/02/2024 11:46 Note Text: IUI Xytex #: [id number] Washed frozen specimen Post: 122 m/ml, 63% Insem#: 34.7 million [facility] 01-02-2024 History of Presen t illness Narrative IUI Xytex #: [id number] Washed frozen specimen Post: 122 m/ml, 63% Insem#: 34.7 million IUI specimen released to provider Flavia Elizondo January 02, 2024 11:23 AM documented in this encounter [facility] 01-02-2024 Note HNO ID: [id number] Author: ANYI GANT MD Service: ? Author [...] Cycle Day: 15 Last menstrual period: 12/19/2023 [place] Protocol: UNIVERSAL PROTOCOL / SAFETY CHECKLIST Procedure [...] discussed with the Patient or Patient's Authorized Net C Developer. As applicable, any other physician, advance practice provider, medical student, or other health professional student that will be observing or involved in the sensitive examination for educational or training purposes was discussed with the Patient or Authorized Net C Developer. The Patient or Authorized Net C Developer has agreed to proceed with the sensitive examination. (Sensitive examination includes inspection and/or palpation of the breasts, pelvis, prostate and anorectal regions) Patient declined dialysis technician. IUI IUI Date: 01/02/24 Partner's Name: Wanda [...] Anyi Gant M.D. Reproductive Endocrinology and Infertility [facility] 01-02-2024 Procedure note WHI SARMAD IUI PROCEDURE NOTE Date: 01/02/2024 Primary Proceduralist: Uma Aguilera MD Consents and Labels Consent Signed: Informed Consent obtained and on the chart Labels Verified With Patient: Yes Indications: Nelli Carpenter, is a 33 year old female here today for intrauterine insemination. IUI # 2. Cycle Day: 15 Last menstrual period: 12/19/2023 [place] Protocol: UNIVERSAL PROTOCOL / SAFETY CHECKLIST Procedure [...] discussed with the Patient or Patient's Authorized Net C Developer. As applicable, any other physician, advance practice provider, medical student, or other health professional student that will be observing or involved in the sensitive examination for educational or training purposes was discussed with the Patient or Authorized Net C Developer. The Patient or Authorized Net C Developer has agreed to proceed with the sensitive examination. (Sensitive examination includes inspection and/or palpation of the breasts, pelvis, prostate and anorectal regions) Patient declined dialysis technician. IUI IUI Date: 01/02/24 Partner's Name: Wanda [...] Anyi Gant M.D. Reproductive Endocrinology and Infertility T [facility] Work Phone: 01-02-2024 Procedure note WHI SARMAD IUI PROCEDURE NOTE Date: 01/02/2024 Primary Proceduralist: Uma Aguilera MD Consents and Labels Consent Signed: Informed Consent obtained and on the chart Labels Verified With Patient: Yes Indications: Nelli Carpenter, is a 33 year old female here today for intrauterine insemination. IUI # 2. Cycle Day: 15 Last menstrual period: 12/19/2023 [place] Protocol: UNIVERSAL PROTOCOL / SAFETY CHECKLIST Procedure [...] discussed with the Patient or Patient's Authorized Net C Developer. As applicable, any other physician, advance practice provider, medical student, or other health professional student that will be observing or involved in the sensitive examination for educational or training purposes was discussed with the Patient or Authorized Net C Developer. The Patient or Authorized Net C Developer has agreed to proceed with the sensitive examination. (Sensitive examination includes inspection and/or palpation of the breasts, pelvis, prostate and anorectal regions) Patient declined dialysis technician. IUI IUI Date: 01/02/24 Partner's Name: Wanda [...] Endocrinology and Infertility documented in this encounter [facility] 01-02-2024 Note HNO ID: [id number] Author: FLAVIA ELIZONDO, ? Service: ? Author Type: District Superintendent Type: Progress Notes Filed: 01/02/2024 11:46 Note Text: IUI specimen released to provider Flavia Elizondo January 02, 2024 11:23 AM [facility] 12-28-2023 History of Presen t illness [...] to monitor weight documented in this encounter [facility] 12-05-2023 Note HNO ID: [id number] Author: STEPHANIE LARA, ? Service: ? Author Type: ? Type: Progress Notes Filed: 12/06/2023 08:45 Note Text: IUI Xytex #[id number] Frozen washed specimen Post: 145 Million/mL, 68% Insem #: 49 Million [facility] 12-05-2023 History of Presen t illness Narrative IUI Xytex #[id number] Frozen washed specimen Post: 145 Million/mL, 68% Insem #: 49 Million IUI specimen released to provider Stephanie Lara December 05, 2023 10:19 AM documented in this encounter [facility] 12-05-2023 Note HNO ID: [id number] Author: MYRIAM DOMINGUEZ MD Service: ? Author [...] Cycle Day: 15 Last menstrual period: 11/21/2023 [place] Protocol: UNIVERSAL PROTOCOL / SAFETY CHECKLIST Procedure [...] EMERGENT procedures): No specimen collected. Patient declined dialysis technician. Uma Aguilera MD IUI IUI Date: 12/05/23 [...] after wash): 49 million Donor ID #: [id number] Cycle reviewed, all questions answered. Pt instructed to take a test in 17 days if no menses and call with results. SIGNATURE: Uma Aguilera MD PATIENT NAME: Nelli Carpenter DATE: December 05, 2023 TIME: 10:31 AM I was present and immediately available for the entire procedure. Patient underwent an intrauterine insemination. Myriam Dominguez MD, TRUDY [facility] 12-05-2023 Procedure note WHI SARMAD IUI PROCEDURE NOTE Date: 12/05/2023 Primary Proceduralist: Uma Aguilera MD Consents and Labels Consent Signed: Informed Consent obtained and on the chart Labels Verified With Patient: Yes Indications: Nelli Carpenter, is a 33 year old female here today for intrauterine insemination. IUI # 1. Cycle Day: 15 Last menstrual period: 11/21/2023 [place] Protocol: UNIVERSAL PROTOCOL / SAFETY CHECKLIST Procedure [...] EMERGENT procedures): No specimen collected. Patient declined dialysis technician. Uma Aguilera MD IUI IUI Date: 12/05/23 [...] after wash): 49 million Donor ID #: [id number] Cycle reviewed, all questions answered. Pt instructed to take a test in 17 days if no menses and call with results. SIGNATURE: Uma Aguilera MD PATIENT NAME: Nelli Carpenter DATE: December 05, 2023 TIME: 10:31 AM I was present and immediately available for the entire procedure. Patient underwent an intrauterine insemination. Myriam Dominguez MD, TRUDY [facility] Work Phone: 12-05-2023 Procedure note WHI SARMAD IUI PROCEDURE NOTE Date: 12/05/2023 Primary Proceduralist: Uma Aguilera MD Consents and Labels Consent Signed: Informed Consent obtained and on the chart Labels Verified With Patient: Yes Indications: Nelli Carpenter, is a 33 year old female here today for intrauterine insemination. IUI # 1. Cycle Day: 15 Last menstrual period: 11/21/2023 [place] Protocol: UNIVERSAL PROTOCOL / SAFETY CHECKLIST Procedure [...] EMERGENT procedures): No specimen collected. Patient declined dialysis technician. Uma Aguilera MD IUI IUI Date: 12/05/23 [...] after wash): 49 million Donor ID #: [id number] Cycle reviewed, all questions answered. Pt instructed to take a test in 17 days if no menses and call with results. SIGNATURE: Uma Agiulera MD PATIENT NAME: Nelli Carpenter DATE: December 05, 2023 TIME: 10:31 AM I was present and immediately available for the entire procedure. Patient underwent an intrauterine insemination. Myriam Dominguez MD, TRUDY documented in this encounter [facility] 12-05-2023 History of Presen t illness Narrative Thaw for IUI Stephanie Lara documented in this encounter [facility] 12-05-2023 Note HNO ID: [id number] Author: STEPHANIE LARA, ? Service: ? Author Type: ? Type: Progress Notes Filed: 12/05/2023 10:23 Note Text: Thaw for IUI Stephanie Lara [facility] 12-05-2023 Note HNO ID: [id number] Author: STEPHANIE LARA, ? Service: ? Author Type: ? 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 Tubal Patency Testing: defer for now Sperm Source:Donor Frozen Treatment Protocol: Natural Cycle Monitoring Plan: OPKs Ovidrel Trigger: No Supplemental Progesterone: None Comments: None Andressa Abraham APRN.CNP 11/23/2023 documented in this encounter [facility] 11-23-2023 Instructions Andressa Abraham APRN.CNP - 11/23/2023 [...] your period and let the front desk specialist know you will be doing donor [...] menstrual cycle to let the front desk specialist know you will be testing and [...] please call the [place] [address] Available every day, including weekends and holidays (except Lauren and New Years.) Weekday IUI scheduling The day you get your LH surge, please call [phone] between 8:00am - 12:00pm to schedule your insemination for the next day. If you call after 12pm, we may not be able to schedule your appointment. IUI s are done by appointment only. You will make 2 appointments - an arrival time and an IUI time. Donor sperm IUI is available at the following location: [place]: [address] [place] [address] Available every day, including weekends and holidays (except Lauren and New Years.) Available for IUI using fresh and frozen samples. Check in location for sperm wash and IUI: [address] The sperm wash takes 60-90 minutes. Weekend/Holiday [...] do another IUI: Call the front desk specialist to make sure you are financially cleared. Ask to speak to an NELLY to confirm your treatment plan. Important phone number: [phone] documented in this encounter [facility] 11-23-2023 Note HNO ID: [id number] Author: ANDRESSA ABRAHAM APRN.CNP Service: ? Author [...] visit. 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 Reviewed IUI scheduling and IUI procedure. Plan: natural cycle IUI-D timed with OPK. Sign IUI consent at earliest convenience. Andressa Abraham APRN.RAW SCALES OPERATOR November 23, 2023 9:09 AM I spent a total of 25 minutes on the date of the service which included preparing to see the patient, evxr-bf-zybh patient care, completing clinical documentation, obtaining and/or [...] grammatical and typographical errors missed in proofreading. [facility] 11-23-2023 History of Presen t illness [...] visit. Either the patient or their legal territory service representative has been informed of the risks and benefits of -- and alternatives to -- treatment through a remote evaluation and consents to proceed with the evaluation remotely. Reason for visit: treatment planning HPI Nelli is a donor sperm patient. Donor sperm checklist is complete, donor has been selected and shipped. LMP 11/20 LMP 10/24, +OPK 8/10 LMP: 09/26, +OPK 10/09, Latest Ref Rng 10/16/2023 Progesterone See comment ng/mL 7.4 Encounter Diagnosis ICD-10-CM 1. 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 Reviewed IUI scheduling and IUI procedure. Plan: natural cycle IUI-D timed with OPK. Sign IUI consent at earliest convenience. Andressa Abraham APRN.CNP November 23, 2023 9:09 AM I spent a total of 25 minutes on the date of the service which included preparing to see the patient, ifrb-fs-badg patient care, completing clinical documentation, obtaining and/or [...] missed in proofreading. documented in this encounter [facility] 10-12-2023 Telephone encounter Note Called the patient she verified her name and date of patient is doing practice cycle Patient had peak on her opk 10-10-23 last period 09-27-23 Needs progesterone order I advised she goes in 6-8 days from positive opk not on fertility meds Laura Roque RN October 12, 2023 12:54 PM [facility] 10-12-2023 Miscellaneous Notes Called the patient she [...] up with Wanda. documented in this encounter [facility] 10-12-2023 Telephone encounter Note Partner Wanda calling re +ov need to schedule progesterone test for Nelli when to have it done. Please follow up with Wanda. [facility] Work Phone: 09-11-2023 Instructions Andressa Abraham APRN.RAW SCALES OPERATOR - 09/11/2023 8:20 AM EDT REPRODUCTIVE ENDOCRINOLOGY [...] sample yourself and arranging for shipment to [facility] Andrology Lab. [facility] [employer] [place] [facility] [place] [facility] [place] [facility] [place] [place] [facility] Let us [...] (with a backup), please send me a Coiney message titled Sperm Donor Choice. Include the [...] the office. Mailing address: Attention: Flavia Elizondo [address] [address], [address] [place] [address] Storage at the [facility] is available. Fees are yearly and only start once you are not actively trying. Please ask the financial team ([phone]) for current cost information. Insurance Authorization/Financial Clearance [...] your period and let the front desk specialist know you will be doing donor [...] any questions. Contact documented in this encounter [facility] 09-11-2023 Note HNO ID: [id number] Author: ANDRESSA ABRAHAM APRN.CNP Service: ? Author [...] favorite donors - send to me via Coiney to confirm Confirmed best vial type to order: IUI/prewashed Will need to follow up to firm up treatment plan and review IUI scheduling instructions. Andressa Abraham APRN.RAW SCALES OPERATOR September 11, 2023 8:08 AM I spent a total of 50 minutes on the date of the service which included preparing to see the patient, ricz-jm-vxfa patient care, completing clinical documentation, obtaining and/or [...] may be gramma (more content not included)... [facility] 09-11-2023 History of Presen t illness [...] favorite donors - send to me via Coiney to confirm Confirmed best vial type to order: IUI/prewashed Will need to follow up to firm up treatment plan and review IUI scheduling instructions. Andressa Abraham APRN.CNP September 11, 2023 8:08 AM I spent a total of 50 minutes on the date of the service which included preparing to see the patient, cxgz-hg-izbb patient care, completing clinical documentation, obtaining and/or [...] missed in proofreading. documented in this encounter [facility] 07-28-2023 Telephone encounter Note NelliJayjays labs are in process partner Wanda Carpenter - labs are in process except blood type and screen - called Client Services. This lab was not collected and can not be added. test reordered. patient will have to go back to the lab to have this drawn. 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 sent Coiney message. Andressa Abraham APRN.CNP July 28, 2023 12:27 PM [facility] 07-28-2023 Miscellaneous Notes NelliJayjays labs are in process partner Wanda Carpenter - labs are in process except blood type and screen - called Client Services. This lab was not collected and can not be added. test reordered. patient will have to go back to the lab to have this drawn. 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 sent Speakaboost message. Andressa Abraham APRN.CNP July 28, 2023 12:27 PM Please follow up with patient completed bloodwork today, next steps after labwork. documented in this encounter [facility] 07-28-2023 Telephone encounter Note Please follow up with patient completed bloodwork today, next steps after labwork. [facility] Work Phone: 06-15-2023 History of Presen t [...] and birthday verified: Yes Location of patient: [place] Persons Present: patient and patient's spouse/significant other I have communicated my name and active licensure. The patient's identity and physical location were verified at the time of this visit. Either the patient or their legal territory service representative has been informed of the risks [...] miscarriage in 2015 and a section in 2016 minimal area with. The was because of [...] test results and next steps. Andressa Abraham APRN.CNP June 15, 2023 4:06 PM I spent a total of 40 minutes on the date of the service which included preparing to see the patient, itby-vx-okfb patient care, completing clinical documentation, obtaining and/or [...] missed in proofreading. documented in this encounter [facility] 06-08-2023 Instructions Rahul Zheng MD - 06/08/2023 10:26 AM EDT Images from the original note were not included. Obstetrics and Gynecology [facility] Intrauterine Insemination Scheduling Instructions Please [...] you get your LH surge, please call [phone] between 8:00am - 12:00pm to schedule your insemination for the next day. If you call after 12pm, we may not be able to schedule your appointment. IUI s are done by appointment only. You will make 2 appointments - one for sperm drop off/collection, and one for the insemination. If you are using a frozen sample, please tell the airplane captain this. You will get an arrival time and an IUI time. IUI is available at the following locations: [place]: [address], [place] [address] Weekday availability is limited depending on staffing. Not available on weekends. Not available for those with frozen sperm. Check in location for sperm wash and IUI: 2nd floor, room 208. The sperm wash takes 60-90 minutes. [place]: [id number], [place] [address] Weekday availability is limited depending on staffing. Not available on weekends. Not available for those with frozen sperm. Check in location for sperm wash: the 2nd floor Urology/Andrology. The sperm wash takes 60-90 minutes. They will tell you what time to cherry picker operator the sample. Check in location for IUI: 3rd floor OB Specialties Desk. (You will have to cherry picker operator the sample from 2nd floor Urology and bring it with you.) [place]: [address] [address], [address] [place] [address] Available every day, including weekends and holidays (except Lauren and New Years.) Available for IUI using fresh and frozen samples. Check in location for sperm wash and IUI: [address] [facility]. The sperm wash takes 60-90 [...] do another IUI: Call the front desk specialist to make sure you are financially cleared. Ask to speak to an NELLY to confirm your treatment plan. Important phone number: [phone] documented in this encounter [facility] 06-08-2023 History of Presen t illness Narrative REPRODUCTIVE ENDOCRINOLOGY AND INFERTILITY [facility] NOTE SERVICE DATE: 06/08/2023 SERVICE TIME: 10:01 AM NAME: Nelli Carpenter This is a new consult. It required patient-provider interaction for the medical decision making as documented below. I have communicated my name and active licensure. The patient's identity and physical location were verified at the time of this visit. Either the patient or their legal territory service representative has been informed of the risks [...] in 2015 and a section in 2017 [facility] area with. The was because of placenta previa at 37 weeks. She had no postoperative complications. After her delivery she had an IUD which had to be removed by hysteroscopy. She is otherwise healthy except for abnormal weight gain for which she has been prescribed Wegovy. She is a non-smoker. 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 documented in this encounter [facility] 03-16-2023 Hospital Discharg e instructions Patient Education 03/16/2023 16:12:49 Wrist Pain, Adult, Vznk-gq-Bpdl Wrist Pain, Adult There are many things [...] to any changes in your symptoms. Take wihi-cwk-lelutbq and prescription medicines only as told by [...] provider. Document Revised: 02/02/2020 Document Reviewed: 02/02/2020 [employer] Patient Education 2022 [employer]. [facility] Evaluation + Plan note No data available for this section [facility] Evaluation note Diagnosis Procreative management counseling- Primary Other procreative management counseling and advice BMI 34.0-34.9,adult Body Mass Index 34.0-34.9, adult [facility] [facility]* Diagnosis Encounter for fertility planning- Primary Other specified procreative management Encounter for other genetic testing of female for procreative management documented in this encounter [facility] note* Diagnosis Treatment plan provided- Primary documented in this encounter [facility] note* Diagnosis Encounter for fertility planning- Primary Other specified procreative management documented in this encounter [facility] note* Diagnosis Procreation management investigation and testing- Primary Other investigation and testing for procreative management documented [facility] Diagnosis Female infertility- Primary Female infertility of unspecified origin [facility] Diagnosis Reproductive mgmt, infertility due to male factor- Primary Female infertility of other specified origin [facility] Diagnosis Procreative management- Primary Unspecified procreative management [facility] Diagnosis Female infertility- Primary Female infertility of unspecified origin documented in this encounter [facility] note* Diagnosis Encounter for artificial insemination- Primary Artificial insemination [facility] Diagnosis Encounter for test, result positive- Primary examination or test, positive result documented in this encounter [facility] note* Diagnosis resulting from assisted reproductive technology in first trimester- Primary documented in this encounter [facility] note* Diagnosis resulting from assisted reproductive technology in first trimester documented in this encounter [facility] note* Diagnosis Treatment plan provided- Primary documented in this encounter [facility] note* Diagnosis Missed menses , unspecified gestational age Encounter for supervision of normal first in first trimester [facility] Infertility, female- Primary BMI 37.0-37.9, adult Morbid obesity ([facility]) Morbid obesity [facility] Diagnosis Well woman exam with routine gynecological exam Routine gynecological examination Screening, , for anatomic survey Encounter for anatomic survey Vaginal discharge Leukorrhea, not specified as infective STD exposure Second trimester state, incidental 16 weeks gestation of Mass of right breast, unspecified quadrant Neoplasm of unspecified behavior of breast Other acne [facility] Diagnosis Encounter for anatomic survey- Primary documented in this encounter [facility] Diagnosis Encounter for anatomic survey- Primary Obesity affecting in second trimester, unspecified obesity type Class 1 obesity without serious comorbidity with body mass index (BMI) of 34.0 to 34.9 in adult, unspecified obesity type 23 weeks gestation of state, incidental documented in this encounter [facility]* Diagnosis Second trimester state, incidental 26 weeks gestation of Diabetes mellitus screening Screening for diabetes mellitus size inconsistent with dates [facility] Diagnosis Third trimester state, incidental 29 weeks gestation of documented in this encounter [facility]* Diagnosis Third trimester state, incidental 31 weeks gestation of documented in this encounter [facility]* Diagnosis Third trimester state, incidental 33 weeks gestation of Gestational diabetes mellitus (GDM), antepartum, gestational diabetes method of control unspecified documented in this encounter [facility]* Diagnosis 35 weeks gestation of Third trimester state, incidental Gastroesophageal reflux in documented in this encounter [facility] Discharge instructions No data available for this section [facility] No data available for this section [facility] Reason for referral (narrative)* Diagnostic Procedure Only (Routine) - Open Specialty Diagnoses / Procedures Referred By Jose L alcocer Referred To Contact [facility] Diagnoses resulting from assisted reproductive technology in first trimester Procedures OBSTETRIC ULTRASOUND WHI US PREG UTERUS AFTER 1ST TRIMEST GESTATION Andressa Abraham APRN.CNP [id number] [place] [address] [facility] [address] [place] [id number] Referral ID Status Reason Start Date Expiration Date V isits Requested Visits Authorized [id number] Open Auto-Generate d Referral 01/20/2024 01/19/2025 1 1 [facility] for visit Narrative* Diagnostic Procedure Only (Routine) - Closed Specialty Diagnoses / Procedures Referred By Jose L alcocer Referred To Contact [facility] Diagnoses resulting from assisted reproductive technology in first trimester Procedures OBSTETRIC ULTRASOUND WHI US PREG UTERUS AFTER 1ST TRIMEST GESTATION Andressa Abraham APRN.CNP [address] [place] [address] [facility] [address] [id number] Referral ID Status Reason Start Date Expiration Date V isits Requested Visits Authorized [id number] Closed Auto-Generate d Referral 01/27/2024 03/29/2024 1 1 [facility] N[facility]* Diagnostic Procedure Only (Routine) - Closed Specialty Diagnoses / Procedures Referred By Contac t Referred To Contact [facility] Diagnoses Encounter for anatomic survey Procedures OBSTETRIC ULTRASOUND WHI US PREG UTERUS AFTER 1ST TRIMEST GESTATION Tristan Sosa APRN.RAW SCALES OPERATOR [address] [facility] [place] [address] Phone: tel: fax: [facility] [address] [place] [address] Referral ID Status Reason Start Date Expiration Date V isits Requested Visits Authorized [id number] Closed Auto-Generate d Referral 05/30/2024 03/29/2025 1 1 [facility] Summary Purpose Family History No Family History [...] Obstetrics and Gynecology Diagnoses Infertility, female Procedures CT OFFICE/OUTPATIENT NEW HIGH MDM 60 MINUTES Karen Bolanos MD [address] [place] [address] Patsy Blanco, DO [address] [place] [address] [place] [address] Referral ID Status Reason Start Date Expiration Date Visits Requested Visits Authorized [id number] Pending Review Specialty Services Required 12/28/2023 06/25/2024 1 1 Additional Source Comments INFORMATION SOURCE (unrecogn ized section and content) DATE CREATED AUTHOR 09/21/2017 [facility] DATE CREATED AUTHOR AUTHOR'S ORGANIZ ATION 03/12/2021 [facility] DATE CREATED AUTHOR AUTHOR'S ORGANIZ ATION 03/16/2021 [facility] DATE CREATED AUTHOR AUTHOR'S ORGANIZ ATION 03/26/2022 [facility] DATE CREATED AUTHOR AUTHOR'S ORGANIZ ATION 02/29/2024 [facility] DATE CREATED AUTHOR AUTHOR'S ORGANIZ ATION 08/06/2024 [facility] DATE CREATED AUTHOR AUTHOR'S ORGANIZ ATION 08/26/2024 [facility] EPIC <item> Privacy Markings (unrecogniz ed section and content) Section Author: Smita Tello PROHIBITION ON REDISCLOSURE OF CONFIDENTIAL INFORMATION This notice accompanies a disclosure of information concerning a client made to you with the consent of such client. Patient Care team informatio n (unrecognized section and content) Hoop Puncher Relationship Specialty Start Date End Date Karen Bolanos MD [address] [place] [address] PCP - General Family Medicine 11/10/22 Karen Bolanos MD [address] [place] [address] PCP - [facility] [employer] 12/28/22 Hoop Puncher Relationship Specialty Start Date End Date Karen Bolanos MD [address] [place] [address] PCP - General Family Medicine 11/10/22 Karen Bolanos MD [address] [place] [address] PCP - [facility] [employer] 12/28/22 Hoop Puncher Relationship Specialty Start Date End Date Karen Bolanos MD [address] [place] [address] PCP - [facility] Medicine 11/10/22 Hoop Puncher Relationship Specialty Start Date End Date Karen Bolanos MD [address] [place] [address] PCP - General [facility] Medicine 11/10/22 Hoop Puncher Relationship Specialty Start Date End Date Karen Bolanos MD [address] [place] [address] PCP - [facility] Medicine 11/10/22 Karen Bolanos MD [address] [place] [address] [facility]CP [facility] 12/28/22 Hoop Puncher Relationship Specialty Start Date End Date Karen Bolanos MD [address] [place] [address] PCP - [facility] Medicine 11/10/22 Hoop Puncher Relationship Specialty Start Date End Date Karen Bolanos MD [address] [place] [address] PCP - General [facility] Medicine 11/10/22 Hoop Puncher Relationship Specialty Start Date End Date Karen Bolanos MD [address] [place] [address] PCP - [facility] Medicine 11/10/22 Hoop Puncher Relationship Specialty Start Date End Date Karen Bolanos MD [address] [place] [address] PCP - General Family Medicine 11/10/22 Hoop Puncher Relationship Specialty Start Date End Date Karen Bolanos MD [address] [place] [address] PCP - [facility] 11/10/22 Hoop Puncher Relationship Specialty Start Date End Date Karen Bolanos MD [address] [place] [address] PCP - [facility] 11/10/22 Hoop Puncher Relationship Specialty Start Date End Date Karen Bolanos MD [address] [place] [address] PCP - [facility] 11/10/22 Hoop Puncher Relationship Specialty Start Date End Date Karen Bolanos MD [address] [place] [address] PCP - [facility] 11/10/22 Hoop Puncher Relationship Specialty Start Date End Date Karen Bolanos MD [address] [place] [address] PCP - [facility] 11/10/22 Hoop Puncher Relationship Specialty Start Date End Date Karen Bolanos MD [address] [place] [address] PCP - [facility] 11/10/22 Source Comments (unrecognize d section and content) In the event this informatio n is protected by the Federal Confidentiality of Alcohol and Drug Abuse Patient Records regulations: The Federal rules restrict any use of the information to criminally investigate or prosecute any alcohol or drug abuse patient.[facility] the event this information is protected by the Federal Confidentiality of Alcohol and Drug Abuse Patient Records regulations: The Federal rules restrict any use of the information to criminally investigate or prosecute any alcohol or drug abuse patient.[facility] the event this information is protected by the Federal Confidentiality of Alcohol and Drug Abuse Patient Records regulations: The Federal rules restrict any use of the information to criminally investigate or prosecute any alcohol or drug abuse patient.[facility] the event this information is protected by the Federal Confidentiality of Alcohol and Drug Abuse Patient Records regulations: The Federal rules restrict any use of the information to criminally investigate or prosecute any alcohol or drug abuse patient.[facility] the event this information is protected by the Federal Confidentiality of Alcohol and Drug Abuse Patient Records regulations: The Federal rules restrict any use of the information to criminally investigate or prosecute any alcohol or drug abuse patient.[facility] the event this information is protected by the Federal Confidentiality of Alcohol and Drug Abuse Patient Records regulations: The Federal rules restrict any use of the information to criminally investigate or prosecute any alcohol or drug abuse patient.[facility] the event this information is protected by the Federal Confidentiality of Alcohol and Drug Abuse Patient Records regulations: The Federal rules restrict any use of the information to criminally investigate or prosecute any alcohol or drug abuse patient.[facility] the event this information is protected by the Federal Confidentiality of Alcohol and Drug Abuse Patient Records regulations: The Federal rules restrict any use of the information to criminally investigate or prosecute any alcohol or drug abuse patient.[facility] the event this information is protected by the Federal Confidentiality of Alcohol and Drug Abuse Patient Records regulations: The Federal rules restrict any use of the information to criminally investigate or prosecute any alcohol or drug abuse patient.[facility] the event this information is protected by the Federal Confidentiality of Alcohol and Drug Abuse Patient Records regulations: The Federal rules restrict any use of the information to criminally investigate or prosecute any alcohol or drug abuse patient.[facility] the event this information is protected by the Federal Confidentiality of Alcohol and Drug Abuse Patient Records regulations: The Federal rules restrict any use of the information to criminally investigate or prosecute any alcohol or drug abuse patient.[facility] the event this information is protected by the Federal Confidentiality of Alcohol and Drug Abuse Patient Records regulations: The Federal rules restrict any use of the information to criminally investigate or prosecute any alcohol or drug abuse patient.[facility] the event this information is protected by the Federal Confidentiality of Alcohol and Drug Abuse Patient Records regulations: The Federal rules restrict any use of the information to criminally investigate or prosecute any alcohol or drug abuse patient.[facility] the event this information is protected by the Federal Confidentiality of Alcohol and Drug Abuse Patient Records regulations: The Federal rules restrict any use of the information to criminally investigate or prosecute any alcohol or drug abuse patient.[facility] the event this information is protected by the Federal Confidentiality of Alcohol and Drug Abuse Patient Records regulations: The Federal rules restrict any use of the information to criminally investigate or prosecute any alcohol or drug abuse patient.[facility] the event this information is protected by the Federal Confidentiality of Alcohol and Drug Abuse Patient Records regulations: The Federal rules restrict any use of the information to criminally investigate or prosecute any alcohol or drug abuse patient.[facility] the event this information is protected by the Federal Confidentiality of Alcohol and Drug Abuse Patient Records regulations: The Federal rules restrict any use of the information to criminally investigate or prosecute any alcohol or drug abuse patient.[facility] the event this information is protected by the Federal Confidentiality of Alcohol and Drug Abuse Patient Records regulations: The Federal rules restrict any use of the information to criminally investigate or prosecute any alcohol or drug abuse patient.[facility] the event this information is protected by the Federal Confidentiality of Alcohol and Drug Abuse Patient Records regulations: The Federal rules restrict any use of the information to criminally investigate or prosecute any alcohol or drug abuse patient.[facility] the event this information is protected by the Federal Confidentiality of Alcohol and Drug Abuse Patient Records regulations: The Federal rules restrict any use of the information to criminally investigate or prosecute any alcohol or drug abuse patient.[facility] Reason for Visit (unrecogniz ed section and [...] EACH ALIQUOT ARTIFIC INSEMINATION INTRAUTERIN Andressa Abraham APRN.RAW SCALES OPERATOR [address] [place] [address] [facility] [address] [place] [address] Referral ID Status Reason Start Date Expiration Date V isits Requested Visits Authorized [id number] Closed Financial Clearance Required - Self Pay [...] THAWING CRYOPRESERVED SPERM/SEMEN EACH ALIQUOT Andressa Abraham APRN.RAW SCALES OPERATOR [address] [place], [place] [id number] [facility] [address] [place] [address] Referral ID Status Reason Start Date Expiration Date V isits Requested Visits Authorized [id number] Closed Patient Cleared - True Self-Pay required [...] BE BASED ON THE PRIMARY CLINICAL RECORDS. [facility]. provides no warranty or guarantee of the accuracy or completeness of information in this document.
[2024-08-27 13:39] VITALS: BP 130/83; PULSE 97
== END 2024-08-27 14:39 | disposition home or self-care (01) ==
LOC: US 13:14 → FBC 13:16
PROVIDERS: PCP Student in an Organized Health Care Education/Training Program; Visit Provider Obstetrics & Gynecology
DX: O24.419 Gestational diabetes mellitus in pregnancy, unspecified control (principal); Z3A.36 36 weeks gestation of pregnancy
CPT/HCPCS: 76818

== ENCOUNTER 2024-08-31 09:47 | Outpatient (OUT) | payer BC, SELFPAY ==
--- OUTSIDE RECORDS SUMMARY | 2024-08-23 14:40 | XMS_ITS | Encounter Summary ---
Author Organization [facility] Address [address] [place] [address] Care Team Providers Care Material Reprocessing Associate Name Role Phone Karen Bolanos MD Primary Care Provider [phone] Reason for Visit * Reason Comments Routine Visit Encounter Details Date Type Department Care Team (Late st Contact Info) Description 08/23/2024 2:40 PM EDT Routine [facility] [address] [facility] [place] [place] [phone] Andrea Prieto, [address] [facility] [address] [place], [place] [id number] 35 weeks gestation of ; Third trimester [...] to check FSBS. Blood Glucose Monitoring Suppl (Leo Glucometer) w/Device kit 1 kit, Does not [...] episode of recurrent major depressive disorder (HCC) ([facility]/HCC) 12/28/2023 Restless leg 12/28/2023 Resolved Ambulatory [...] nursing note reviewed. Exam conducted with a machine feeder floorperson present. Vitals: Estimated body mass index is [...] Care Team (Late st Contact Info) Description 08/31/2024 11:20 AM EDT Routine [facility] [address] [facility] [place] [address] Karyna Craig PA [address] [facility] [place] [address] documented as of this encounter Goals [...] Urine 08/23/2024 3:11 PM EDT us Andrea Prieto DO POINT OF CARE TEST ENTER/EDIT OR DERABLES Final Result documented in this encounter Visit Diagnoses Diagnosis 35 weeks gestation of Third trimester state, incidental Gastroesophageal reflux in documented in this encounter Additional Health Concerns Active Problems Noted Date Diagnosed Date OB Reminders 03/28/2024 documented as of this encounter Care Teams Material Reprocessing Associate Relationship Specialty Start Date End Date Karen Bolanos MD [address] [place] [address] PCP - General Family Medicine 11/10/22 documented as of this encounter
--- OUTSIDE RECORDS SUMMARY | 2024-08-31 09:50 | XMS_ITS | Encounter Summary ---
Author Organization [facility] Address [address] [place] [address] Care Team Providers Care Support Worker Name Role Phone Karen Bolanos MD Primary Care Provider [phone] Encounter Details Date Type Department Care Team (Late st Contact Info) Description 08/24/[address] [facility] [address] [place] [address] Shanika Rubi [facility] [place] [address] Social History Tobacco Use Types Packs/Day Years [...] [facility] [address] [place] [address] Karyna Craig PA [address] [facility] [place] [address] documented as of this encounter Goals Goal Patient Goal Type Associated Problems Recent Progress Patient-Stated? Author Reminders Care Plan OB Reminders No Open Scheduling, Background documented as of this encounter Visit Diagnoses Diagnosis Gastroesophageal reflux in documented in this encounter Additional Health Concerns Active Problems Noted Date Diagnosed Date OB Reminders 03/28/2024 documented as of this encounter Care Teams Support Worker Relationship Specialty Start Date End Date Karen Bolanos MD [address] [place] [address] PCP - General Family Medicine 11/10/22 documented as of this encounter
--- OUTSIDE RECORDS SUMMARY | 2024-08-31 09:50 | XMS_ITS | Encounter Summary ---
Author Organization [facility] Address [address] [place] [address] Care Team Providers Care Hardwood Floor Installation Helper Name Role Phone Karen Bolanos MD Primary Care Provider [phone] Encounter Details Date Type Department Care Team (Late st Contact Info) Description 08/27/2024 Clinisync Result Encounter [facility] External Department Unsolicited Nina Prieto, DO [address] [place] [address] Social History Tobacco Use Types [...] OB [address] [place] [address] Karyna Craig PA [address] [facility] [address] [place], [place] [address] documented as of this encounter Goals Goal Patient Goal Type Associated Problems Recent Progress Patient-Stated? Author Reminders Care Plan OB Reminders No Open Scheduling, Background documented as of this encounter Procedures Procedure Name Priority Date/Time Associated Diagnosis Comments US OB BPP W NON-STRESS 08/27/2024 2:00 PM EDT documented in this encounter Results * US OB BPP W NON-STRESS (08/27/2024 2:00 PM EDT) Anatomical Region Laterality Modality Other 08/27/2024 2:00 PM EDT Narrative 08/27/2024 2:02 PM EDT [place] [id number] Ultrasound Report Signed Patient: EDUAR CARPENTER MR#: [id number] : 1990 Acct:[id number] Age/Sex: 34 / F ADM Date: 08/27/24 Loc: [place] [address]: Nina Prieto D.O. Ordering Physician: Nina Prieto D.O. Date of Service: 08/27/24 Procedure(s): US OB BPP w non-stress Accession Number(s): [id number] cc: Nina Prieto D.O.; NORBERTO BOLANOS [address] [address] Patient Name: EDUAR CARPENTER MRN: [id number] date: 1990 Sex: F Assigned Patient Location: [facility] Current Patient Location: [facility] Accession/Order Number: [id number] Exam Date: 08/27/2024 13:58 Report Date: 08/27/2024 14:00 At the request of: NINA PRIETO DO Procedure: US OB BPP w non-stress Ultrasound biophysical profile HISTORY: Gestational diabetes There is adequate breathing movement, gross body movement, tone and amniotic fluid volume with total score of 8 out of 8. The amniotic fluid index is 18.8 cm within normal limits. heart rate 167 bpm. Possible nuchal cord identified. US/US OB BPP w non-stress IMPRESSION: Adequate ultrasound biophysical profile. Possible nuchal cord. Impression dictated by: Deepak Nava M.D. 08/27/2024 2:00 PM Dictation Location: [facility] Electronically authenticated by: [id number] Y Date: 08/27/2024 14:00 Dictated By: Deepak Nava D.O. Signed By: 08/27/24 1402 DD/ 99 TD/TT: Sports Centre Manager: Procedure Note Radiology, Radiologist, - 08/27/2024 [place] [address] Ultrasound Report Signed Patient: EDUAR CARPENTER KMR#: [id number] : 1990Acct:[id number] Age/Sex: 34 / FADM Date: 08/27/24 Loc: [facility] 250-[address]: Nina Prieto D.O. Ordering Physician: Nina Prieto D.O. Date of Service: 08/27/24 Procedure(s): US OB BPP w non-stress Accession Number(s): [id number] cc: Nina Prieto D.O.; NORBERTO BOLANOS The [place] [id number] Patient Name: EDUAR CARPENTER MRN: [id number] date: 1990 Sex: F Assigned Patient Location: [facility] Current Patient Location: [facility] Accession/Order Number: [id number] Exam Date: 08/27/2024 13:58 Report Date: 08/27/2024 14:00 At the request of: NINA PRIETO DO Procedure: US OB BPP w non-stress Ultrasound biophysical profile HISTORY: Gestational diabetes There is adequate breathing movement, gross body movement, fetaltone and amniotic fluid volume with total score of 8 out of 8. The amnioticfluid index is 18.8 cm within normal limits. heart rate 167 bpm.Possible nuchal cord identified. US/US OB BPP w non-stress IMPRESSION: Adequate ultrasound biophysical profile. Possible nuchalcord. Impression dictated by: Deepak Nava M.D. 08/27/2024 2:00 PM Dictation Location: [employer] Electronically authenticated by: [id number] Y Date: 4:00 Dictated By: Deepak Nava D.O. Signed By:08/27/24 1402 DD/ 1400 TD/TT: Sports Centre Manager: us Nina Conner DO [facility] Final Result documented in this encounter Visit Diagnoses Not on filedocumented in this encounter Additional Health Concerns Active Problems Noted Date Diagnosed Date OB Reminders 03/28/2024 documented as of this encounter Care Teams Hardwood Floor Installation Helper Relationship Specialty Start Date End Date Karen Bolanos MD [address] [place] [address] PCP - General Family Medicine 11/10/22 documented as of this encounter
--- OUTSIDE RECORDS SUMMARY | 2024-08-31 09:50 | XMS_ITS | Encounter Summary ---
Author Organization [facility] Address [address] [place] [address] Care Team Providers Care Assembler Faucets Name Role Phone Karen Bolanos MD Primary Care Provider [phone] Encounter Details Date Type Department Care Team (Late st Contact Info) Description 07/12/2024 Abstract [facility] [address] [facility] [place] [address] Karyna Craig PA [address] [facility] [address] [place], [facility]11 Social History Tobacco Use Types Packs/Day [...] AM EDT Routine [facility] [address] [facility] [place] [address] Karyna Craig PA [address] [facility] [place] [address] documented as of this encounter Goals Goal Patient Goal Type Associated Problems Recent Progress Patient-Stated? Author Reminders Care Plan OB Reminders No Open Scheduling, Background documented as of this encounter Visit Diagnoses Not on filedocumented in this encounter Additional Health Concerns Active Problems Noted Date Diagnosed Date OB Reminders 03/28/2024 documented as of this encounter Care Teams Assembler Faucets Relationship Specialty Start Date End Date Karen Bolanos MD [address] [place] [address] PCP - General Family Medicine 11/10/22 documented as of this encounter
--- OUTSIDE RECORDS SUMMARY | 2024-08-31 09:50 | XMS_ITS | Encounter Summary ---
Author Organization [facility] Address [facility] [place] [address] Care Team Providers Care Singer Songwriter Name Role Phone Unavailable Primary Care Provider Unavailabl e Source Comments In the event this information is protected by the Federal Confidentiality of Alcohol and Drug AbusePatient Records regulations: The Federal rules restrict any use of the information to criminally investigate or prosecute any alcohol or drug abuse patient.[facility] Encounter Details Date Type Department Care Team (Latest Contact Info) Description 06/15/2023 Patient Msg Reproductive Endocrinology Infertility [address] [place] [address] Andressa Abraham APRN.VEGETABLE FARM MANAGER [address] [place] [address] Donor Sperm Handout Social History Tobacco Use [...] is lower risk 5 06/08/2023 Data from: https://www.neighborhoodatlas.medicine.[facility].edu/. Last address used for calculation [address] [...]
--- OUTSIDE RECORDS SUMMARY | 2024-08-31 09:50 | XMS_ITS | Encounter Summary ---
Author Organization [facility] Address [address] [place] [address] Care Team Providers Care Choir Teacher Name Role Phone Karen Bolanos MD Primary Care Provider [phone] Karen Bolanos MD Unavailable [phone] Encounter Details Date Type Department Care Team (Late st Contact Info) Description 03/14/2024 Abstract [facility] [address] [place] [address] Andrea Prieto, [address] [place], [place] [id number] Social History Tobacco Use Types Packs/Day Years [...] AM EDT Routine [facility] BCP OB [address] [facility] [place] [phone] Karyna Craig PA [address] [facility] [place] [address] documented as of this encounter Visit Diagnoses Not on filedocumented in this encounter Care Teams Choir Teacher Relationship Specialty Start Date End Date Karen Bolanos MD [address] [place] [address] PCP - General Family Medicine 11/10/22 Karen Bolanos MD [address] [place] [address] PCP - Nish Medina 12/28/22 5 documented as of this encounter
--- OUTSIDE RECORDS SUMMARY | 2024-08-31 09:50 | XMS_ITS | Encounter Summary ---
Author Organization [facility] Address [address] [place] [address] Care Team Providers Care Cashier Payments Received Name Role Phone Karen Bolanos MD Primary Care Provider [phone] Karen Bolanos MD Unavailable Encounter Details Date Type Department Care Team (Late st Contact Info) Description 03/09/[address] [facility] [address] [place] [phone] Andrea Prieto, [address] [place], [place] [id number] Social History Tobacco Use Types Packs/Day Years [...] AM EDT Routine [facility] BCP OB [address] [facility] [place] [address] Karyna Craig PA [address] [facility] [place] [address] documented as of this encounter Visit Diagnoses Not on filedocumented in this encounter Care Teams Cashier Payments Received Relationship Specialty Start Date End Date Karen Bolanos MD [address] [place] [address] PCP - General Family Medicine 11/10/22 Karen Bolanos MD [address] [place] [address] PCP - Nish Medina 12/28/22 5 documented as of this encounter
--- OUTSIDE RECORDS SUMMARY | 2024-08-31 09:50 | XMS_ITS | Encounter Summary ---
Author Organization [facility] Address [address] [place] [address] Care Team Providers Care Induction Heating Equipment Setter Name Role Phone Karen Bolanos MD Primary Care Provider [phone] Karen Bolanos MD Unavailable Encounter Details Date Type Department Care Team (Late st Contact Info) Description 03/11/2024 Abstract [facility] [address] [place] [address] Andrea Prieto, [address] [place], [place] [address] Social History Tobacco Use Types Packs/Day Years [...] AM EDT Routine [facility] BCP OB [address] [facility] [place] [address] Karyna Craig PA [address] [facility] [place] [address] documented as of this encounter Visit Diagnoses Not on filedocumented in this encounter Care Teams Induction Heating Equipment Setter Relationship Specialty Start Date End Date Karen Bolanos MD [address] [place] [address] PCP - General Family Medicine 11/10/22 Karen Bolanos MD [address] [place] [address] PCP - Nish Medina 12/28/22 5 documented as of this encounter
--- OUTSIDE RECORDS SUMMARY | 2024-08-31 09:50 | XMS_ITS | Encounter Summary ---
Author Organization [facility] Address [address] [place] [address] Care Team Providers Care Immunopathologist Name Role Phone Karen Bolanos MD Primary Care Provider [phone] Karen Bolanos MD Unavailable [phone] Encounter Details Date Type Department Care Team (Late st Contact Info) Description 11/10/2022 Abstract [facility] [address] [place] [address] Karen Bolanos MD [address] [place] [address] Social History Tobacco Use Types Packs/Day Years [...] AM EDT Routine [facility] BCP OB [address] [facility] [place] [address] Karyna Craig PA [address] [facility] [place] [address] documented as of this encounter Visit Diagnoses Not on filedocumented in this encounter Care Teams Immunopathologist Relationship Specialty Start Date End Date Karen Bolanos MD [address] [place] [address] PCP - General Family Medicine 11/10/22 Karen Bolanos MD [address] [place] [address] PCP - Nish Medina 12/28/22 5 documented as of this encounter
--- OUTSIDE RECORDS SUMMARY | 2024-08-31 09:50 | XMS_ITS | Encounter Summary ---
Author Organization [facility] Address [facility] [place] [address] Care Team Providers Care Manager Outpatient Name Role Phone Unavailable Primary Care Provider Unavailabl e Source Comments In the event this information is protected by the Federal Confidentiality of Alcohol and Drug AbusePatient Records regulations: The Federal rules restrict any use of the information to criminally investigate or prosecute any alcohol or drug abuse patient.[facility] Reason for Visit * Reason Comments Lila ordered sperm next step Encounter Details Date Type Department Care Team (Late st Contact Info) Description 11/13/2023 Telephone Reproductive Endocrinology Infertility [address] [place] [address] Andressa Abraham APRN.EDGE BANDING MACHINE OFFBEARER [address] [facility] [address] [place] [address] Lila ordered sperm next step Social History [...] is lower risk 5 06/08/2023 Data from: https://www.neighborhoodatlas.medicine.[facility].edu/. Last address used for calculation [...]
--- OUTSIDE RECORDS SUMMARY | 2024-08-31 09:50 | XMS_ITS | Encounter Summary ---
Author Organization [facility] Address [facility] [place] [address] Care Team Providers Care Proof Coins Inspector Name Role Phone Unavailable Primary Care Provider Unavailabl e Source Comments In the event this information is protected by the Federal Confidentiality of Alcohol and Drug AbusePatient Records regulations: The Federal rules restrict any use of the information to criminally investigate or prosecute any alcohol or drug abuse patient.[facility] Reason for Visit * Reason Comments Can they order the donor sperm samples pauline pt rt call Encounter Details Date Type Department Care Team (Late st Contact Info) Description 10/29/2023 Telephone Reproductive Endocrinology Infertility [address] [place] [address] Andressa Abraham APRN.MALT LIQUORS SALES SUPERVISOR [address] [facility] [facility] [address] [place] [address] Can they order the donor sperm samples; [...] is lower risk 5 06/08/2023 Data from: https://www.neighborhoodatlas.medicine.[facility]/. Last address used for calculation [address] [...]
--- OUTSIDE RECORDS SUMMARY | 2024-08-31 09:50 | XMS_ITS | Encounter Summary ---
Author Organization [facility] Address [facility] [place] [address] Care Team Providers Care Packing Machine Tender Name Role Phone Unavailable Primary Care Provider Unavailabl e Source Comments In the event this information is protected by the Federal Confidentiality of Alcohol and Drug AbusePatient Records regulations: The Federal rules restrict any use of the information to criminally investigate or prosecute any alcohol or drug abuse patient.[facility] Encounter Details Date Type Department Care Team (Latest Contact Info) Description 11/23/2023 Patient Msg Reproductive Endocrinology Infertility [address] [place] [address] Andressa Abraham APRN.DIGITAL CIRCUIT DESIGNER [address] [place] [address] IUI Scheduling Instructions Social History Tobacco Use [...] is lower risk 5 06/08/2023 Data from: https://www.neighborhoodatlas.medicine.[facility].edu/. Last address used for calculation [...]
--- OUTSIDE RECORDS SUMMARY | 2024-08-31 09:50 | XMS_ITS | Encounter Summary ---
Author Organization [facility] Address [address] [place] [address] Care Team Providers Care Irradiated Fuel Handler Name Role Phone Karen Bolanos MD Primary Care Provider [phone] Karen Bolanos MD Unavailable [phone] Encounter Details Date Type Department Care Team (Late st Contact Info) Description 03/11/2024 Abstract [facility] [address] [place] [address] Andrea Prieto, [address] [place], [place] [address] Social History Tobacco Use Types Packs/Day Years [...] AM EDT Routine [facility] BCP OB [address] [facility] [place] [address] Karyna Craig PA [address] [facility] [place] [address] documented as of this encounter Visit Diagnoses Not on filedocumented in this encounter Care Teams Irradiated Fuel Handler Relationship Specialty Start Date End Date Karen Bolanos MD [address] [place] [address] PCP - General Family Medicine 11/10/22 Karen Bolanos MD [address] [place] [address] PCP - Nish Medina 12/28/22 5 documented as of this encounter
--- OUTSIDE RECORDS SUMMARY | 2024-08-31 09:50 | XMS_ITS | Encounter Summary ---
Author Organization [facility] Address [address] [place] [address] Care Team Providers Care Head Librarian Name Role Phone Karen Bolanos MD Primary Care Provider [phone] Encounter Details Date Type Department Care Team (Late st Contact Info) Description 08/29/2024 Abstract [facility] [address] [place] [address] Andrea Prieto, [address] [place], [facility]11 Social History Tobacco Use Types Packs/Day Years [...] AM EDT Routine [facility] BCP OB [address] [facility] [place] [address] Karyna Craig PA [address] [facility] [place] [address] documented as of this encounter Goals Goal Patient Goal Type Associated Problems Recent Progress Patient-Stated? Author Reminders Care Plan OB Reminders No Open Scheduling, Background documented as of this encounter Visit Diagnoses Not on filedocumented in this encounter Additional Health Concerns Active Problems Noted Date Diagnosed Date OB Reminders 03/28/2024 documented as of this encounter Care Teams Head Librarian Relationship Specialty Start Date End Date Karen Bolanos MD [address] [place] [address] PCP - General Family Medicine 11/10/22 documented as of this encounter
--- OUTSIDE RECORDS SUMMARY | 2024-08-31 09:50 | XMS_ITS | Encounter Summary ---
Author Organization [facility] Address [address] [place] [address] Care Team Providers Care Trim Mounter Name Role Phone Karen Bolanos MD Primary Care Provider [phone] Encounter Details Date Type Department Care Team (Late st Contact Info) Description 08/19/2024 Telephone [facility] [address] [place] [address] Andrea Prieto, DO [address] [place], [facility]11 Social History Tobacco Use Types Packs/Day Years [...] AM EDT Routine [facility] BCP OB [address] [facility] [address] Karyna Craig PA [address] [facility] [place] [address] documented as of this encounter Goals Goal Patient Goal Type Associated Problems Recent Progress Patient-Stated? Author Reminders Care Plan OB Reminders No Open Scheduling, Background documented as of this encounter Visit Diagnoses Not on filedocumented in this encounter Additional Health Concerns Active Problems Noted Date Diagnosed Date OB Reminders 03/28/2024 documented as of this encounter Care Teams Trim Mounter Relationship Specialty Start Date End Date Karen Bolanos MD [address] [place] [address] PCP - General Family Medicine 11/10/22 documented as of this encounter
--- OUTSIDE RECORDS SUMMARY | 2024-08-31 09:50 | XMS_ITS | Encounter Summary ---
Author Organization [facility] Address [address] [place] [address] Care Team Providers Care Summer Clerk Name Role Phone Karen Bolanos MD Primary Care Provider [phone] Encounter Details Date Type Department Care Team (Late st Contact Info) Description 08/20/2024 Clinisync Result Encounter [facility] External Department Unsolicited Nina Prieto, DO [address] [place] [address] Social History Tobacco Use Types [...] BCP OB [address] [place] [address] Karyna Craig PA [address] [facility] [address] [place], [place] [address] documented as of this encounter Goals Goal [...] PM EDT Narrative 08/20/2024 1:32 [place] [address] Ultrasound Report Signed Patient: EDUAR CARPENTER MR#: [id number] : 1990 Acct:[id number] Age/Sex: 34 / F ADM Date: 08/20/24 Loc: [place] [address]: Nina Prieto D.O. Ordering Physician: Nina Prieto D.O. Date of Service: 08/20/24 Procedure(s): US OB BPP w non-stress Accession Number(s): [id number] cc: Nina Prieto D.O.; NORBERTO BOLANOS [address] [address] Patient Name: EDUAR CARPENTER MRN: [id number] date: 1990 Sex: F Assigned [facility] Current Patient Location: [facility] Accession/Order Number: [id number] Exam Date: 08/20/2024 13:28 Report Date: 08/20/2024 [...] Blake M.D. 08/20/2024 1:30 PM Dictation Location: [place] [address] Electronically authenticated by: [id number] Y Date: 08/20/2024 13:30 Dictated By: Gunnar Blake M.D. Signed By: 08/20/24 133 DD/ 133 TD/TT: Tool Analyst: Procedure Note Radiology, Radiologist, MD - 08/20/2024 [place] [address] Ultrasound Report Signed Patient: EDUAR CARPENTER KMR#: [id number] : 1990Acct:[id number] Age/Sex: 34 / FADM Date: 08/20/24 Loc: [facility] 250-[address]: Nina Prieto D.O. Ordering Physician: Nina Prieto D.O. Date of Service: 08/20/24 Procedure(s): US OB BPP w non-stress Accession Number(s): [id number] cc: Nina Prieto D.O.; NORBERTO BOLANOS [place] [id number] Patient Name: EDUAR CARPENTER MRN: [id number] date: 1990 Sex: F Assigned Patient Location: [facility] Current Patient Location: [facility] Accession/Order Number: [id number] Exam Date: 08/20/2024 13:28 Report Date: 08/20/2024 [...] Blake M.D. 08/20/2024 1:30 PM Dictation Location: [facility] Electronically authenticated by: [id number] Y Date: 3:30 Dictated By: Gunnar Blake M.D. Signed By:08/20/24 1332 DD/ 1330 TD/TT: Tool Analyst: Nina Prieto DO [facility] Final Result documented in this encounter Visit Diagnoses Not on filedocumented in this encounter Additional Health Concerns Active Problems Noted Date Diagnosed Date OB Reminders 03/28/2024 documented as of this encounter Care Teams Summer Clerk Relationship Specialty Start Date End Date Karen Bolanos MD [address] [place] [address] PCP - General Family Medicine 11/10/22 documented as of this encounter
--- OUTSIDE RECORDS SUMMARY | 2024-08-31 09:50 | XMS_ITS | Encounter Summary ---
Author Organization [facility] Address [facility] [place] [address] Care Team Providers Care Cleaner Assistant Name Role Phone Unavailable Primary Care Provider Unavailabl e Source Comments In the event this information is protected by the Federal Confidentiality of Alcohol and Drug AbusePatient Records regulations: The Federal rules restrict any use of the information to criminally investigate or prosecute any alcohol or drug abuse patient.[facility] Encounter Details Date Type Department Care Team (Late st Contact Info) Description 08/18/2023 Patient Msg Reproductive Endocrinology Infertility [address] [place] [address] Andressa Abraham APRN.DOCTOR OF NAPRAPATHIC MEDICINE [address] [place] [address] Myriad Results Social History Tobacco Use Types [...] is lower risk 5 06/08/2023 Data from: https://www.neighborhoodatlas.medicine.[facility].edu/. Last address used for calculation [address] [...]
--- OUTSIDE RECORDS SUMMARY | 2024-08-31 09:50 | XMS_ITS | Encounter Summary ---
Author Organization [facility] Address [facility] [place] [address] Care Team Providers Care Saxophone Player Name Role Phone Unavailable Primary Care Provider Unavailabl e Source Comments In the event this information is protected by the Federal Confidentiality of Alcohol and Drug AbusePatient Records regulations: The Federal rules restrict any use of the information to criminally investigate or prosecute any alcohol or drug abuse patient.[facility] Encounter Details Date Type Department Care Team (Latest Contact Info) Description 12/01/2023 Get Medical Advice Reproductive Endocrinology Infertility [address] [place] [address] Andressa Abraham APRN.PRECISION LATHE OPERATOR [address] [place] [address] Financial clearance Social History Tobacco Use Types [...] is lower risk 5 06/08/2023 Data from: https://www.neighborhoodatlas.medicine.[facility].edu/. Last address used for calculation [address] [...]
--- OUTSIDE RECORDS SUMMARY | 2024-08-31 09:50 | XMS_ITS | Encounter Summary ---
Author Organization [facility] Address [address] [place] [address] Care Team Providers Care Hop Farm Worker Name Role Phone Karen Bolanos MD Primary Care Provider [phone] Encounter Details Date Type Department Care Team (Late st Contact Info) Description 08/09/2024 Abstract [facility] [address] [place] [address] Andrea Prieto, [address] [place], [facility]11 Social History Tobacco Use Types Packs/Day Years [...] [facility] [place] [address] Karyna Craig PA [address] [facility] [place] [address] documented as of this encounter Goals Goal Patient Goal Type Associated Problems Recent Progress Patient-Stated? Author Reminders Care Plan OB Reminders No Open Scheduling, Background documented as of this encounter Visit Diagnoses Not on filedocumented in this encounter Additional Health Concerns Active Problems Noted Date Diagnosed Date OB Reminders 03/28/2024 documented as of this encounter Care Teams Hop Farm Worker Relationship Specialty Start Date End Date Karen Bolanos MD [address] [place] [address] PCP - General Family Medicine 11/10/22 documented as of this encounter
--- OUTSIDE RECORDS SUMMARY | 2024-08-31 09:50 | XMS_ITS | Encounter Summary ---
Author Organization [facility] Address [address] [place] [address] Care Team Providers Care Sand Cleaning Machine Operator Name Role Phone Karen Bolanos MD Primary Care Provider [phone] Encounter Details Date Type Department Care Team (Late st Contact Info) Description 08/23/2024 Bamboo flowsheet [facility] OB [address] [place] [address] Andrea Prieto, DO [address] [place], [facility]11 Social History Tobacco Use Types Packs/Day [...] AM EDT Routine [facility] BCP OB [address] [facility] [place] [address] Karyna Criag PA [address] [facility] [place] [address] documented as of this encounter Goals Goal Patient Goal Type Associated Problems Recent Progress Patient-Stated? Author Reminders Care Plan OB Reminders No Open Scheduling, Background documented as of this encounter Visit Diagnoses Not on filedocumented in this encounter Additional Health Concerns Active Problems Noted Date Diagnosed Date OB Reminders 03/28/2024 documented as of this encounter Care Teams Sand Cleaning Machine Operator Relationship Specialty Start Date End Date Karen Bolanos MD [address] [place] [address] PCP - General Family Medicine 11/10/22 documented as of this encounter
--- OUTSIDE RECORDS SUMMARY | 2024-08-31 09:51 | XMS_ITS | Encounter Summary ---
Author Organization [facility] Address [facility] [place] [address] Care Team Providers Care Technical Rep Name Role Phone Unavailable Primary Care Provider Unavailabl e Source Comments In the event this information is protected by the Federal Confidentiality of Alcohol and Drug AbusePatient Records regulations: The Federal rules restrict any use of the information to criminally investigate or prosecute any alcohol or drug abuse patient.[facility] Encounter Details Date Type Department Care Team (Late st Contact Info) Description 02/09/2024 Patient Msg Reproductive Endocrinology Infertility [address] [place] [address] Margo Cortez APRN.DAG SPRAYER [address] [place] [id number] Congratulations!!! Social History Tobacco Use Types Packs/Day [...] lower risk 5 06/08/2023 Data from: https://www.neighborhoodatlas.medicine.[facility].edu/. Last address used for calculation [address] [...]
--- OUTSIDE RECORDS SUMMARY | 2024-08-31 09:51 | XMS_ITS | Clinical Summary ---
Author Organization [facility] Healthcare Address [address] [place] [address] Care Team Providers Care Industrial Management Teacher Name Role Phone Karen Bolanos MD Primary Care Provider [phone] Allergies No known active allergies Medications clindamycin [...] (GDM), antepartum, gestational diabetes method of control unspecified,Rzo vated glucose tolerance test 1 kit Daily [...] Encounters Date Type Department Care Team Description 08/29/2024 Abstract [facility] [address] [place] [address] Nina Prieto DO 08/27/2024 Clinisync Result Encounter NOM[facility] External Department Unsolicited Nina Prieto, 08/24/2024 Telephone [facility] [place] [address] [place] [address] Shanika Rubi MA 08/23/2024 2:40 PM EDT Routine [facility] [place] [address] [place] [address] [phone] Nina Prieto, DO 35 weeks gestation of ; Third trimester ; Gastroesophageal reflux in 08/23/2024 Bamboo flowsheet [facility] [address] [place] [address] [place] [address] Nina Prieto, DO 08/20/2024 Clinisync Result Encounter [facility]OMS External Department Unsolicited Nina Prieto, DO 08/19/2024 Telephone [facility] [address] [facility] [place] [address] Nina Prieto, DO 08/14/2024 Clinisync Result Encounter NOMS External Department Unsolicited Nina Prieto, DO 08/14/2024 Clinisync Result Encounter NOMS External Department Unsolicited Nina Prieto, DO 08/09/2024 Abstract [facility] [address] [facility] [place] [address] Nina Prieto, DO 08/08/2024 2:10 PM EDT Routine [facility] [address] [facility] [place] [address] Nina Prieto, Third trimester ; 33 weeks gestation of ; Gestational diabetes mellitus (GDM), antepartum, gestational diabetes method of control unspecified 08/08/2024 Bamboo flowsheet [facility] [address] [place] [address] [place] [address] Nina Prieto, DO 08/01/2024 Telephone [facility] [address] [place] [address] [place] [address] Nina Prieto, DO 07/25/2024 10:40 AM EDT Routine [facility] [address] [place] [address] [place] [address] Steffanie Gerard, ABDI Third trimester ; 31 weeks gestation of 07/25/2024 Bamboo flowsheet [facility] [address] [facility] [place] [address] Steffanie Gerard NP 07/12/2024 Abstract [facility] [address] [place] [address] Karyna Craig PA 07/12/2024 Telephone [facility] [address] [place] [address] Karyna Craig PA 07/11/2024 11:00 AM EDT Routine [facility] [address] [place] [address] Nina Prieto DO Third trimester ; 29 weeks gestation of ; Gestational diabetes mellitus (GDM), antepartum, gestational diabetes method of control unspecified 07/11/2024 10:30 AM EDT Ancillary Procedure [facility] [address] [place] [address] 07/08/2024 Clinisync Result Encounter NOMS External Department Unsolicited Karyna Craig PA 06/22/2024 1:20 PM EDT Routine [facility] [address] [place] [address] Nina Prieto DO Second trimester ; 26 weeks gestation of ; Diabetes mellitus screening; size inconsistent with dates 06/22/2024 Bamboo flowsheet [facility] [address] [place] [address] Nina Prieto DO 05/31/2024 1:00 PM EST Ancillary Procedure [facility] [address] [place] [address] Mass of right breast, unspecified quadrant; Neoplasm of unspecified behavior of breast 05/31/2024 Travel from Last 3 Months Immunizations Immunization Administration Dates Next Due DTaP 02/08/1993, 2,1991,1991 DTaP, Unspecified 02/08/1993, 2,1991,1991 Hep B, Adolescent or Pediatric 12/08/2003 HiB, unspecified 02/08/1993, 2,1991,1991 Hib (HbOC) 02/08/1993, 2,1991,1991 Influenza, injectable, quadrivalent 06/15/2023 Influenza, injectable, quadr ivalent, preservative free 12/10/2016 MMR 09/13/2023,12/08/2003,10/27/1996 Novel [id number], preservative-free 02/16/2009 Polio, Unspecified 02/08/1993,1991, 992 Tetanus [...] [facility] [place] [address] Karyna Craig PA [address] [place] [address] Health Maintenance Due Date Last Done Comments [...] BPP W NON-STRESS 08/27/2024 2:00 PM EDT POCT URINALYSIS DIPSTICK Routine 08/23/2024 3:11 PM [...] Recently Relevant to Health Maintenance Results * US OB BPP W NON-STRESS (08/27/2024 2:00 PM EDT) Only the most recent of3 resultswithin the time period is included. Anatomical Region Laterality Modality Other 08/27/2024 2:00 PM EDT Narrative 08/27/2024 2:02 [place] [address] Ultrasound Report Signed Patient: EDUAR STEWARD MR#: [id number] : 1990 Acct:[id number] Age/Sex: 34 / F ADM Date: 08/27/24 Loc: [place] [address]: Nina Prieto D.O. Ordering Physician: Nina Prieto D.O. Date of Service: 08/27/24 Procedure(s): US OB BPP w non-stress Accession Number(s): [id number] cc: Nina Prieto D.O.; NORBERTO BOLANOS [address] [address] Patient Name: EDUAR STEWARD MRN: [id number] date: 1990 Sex: F Assigned Patient Location: [facility] Current Patient Location: [facility] Accession/Order Number: [id number] Exam Date: 08/27/2024 13:58 Report Date: 08/27/2024 14:00 At the request of: NINA CONNER DO Procedure: US OB BPP w non-stress [...] Nava M.D. 08/27/2024 2:00 PM Dictation Location: [employer] Electronically authenticated by: [id number] Y Date: 08/27/2024 14:00 Dictated By: Deepak Nava D.O. Signed By: 08/27/24 140 DD/ 99 TD/TT: [employer]: Procedure Note Radiology, Radiologist, MD - 08/27/2024 [place] [address] Ultrasound Report Signed Patient: EDUAR STEWARD KMR#: [id number] : 1990Acct:[id number] Age/Sex: 34 / FADM Date: 08/27/24 Loc: [place] [address]: Nina Prieto D.O. Ordering Physician: Nina Prieto D.O. Date of Service: 08/27/24 Procedure(s): US OB BPP w non-stress Accession Number(s): [id number] cc: Nina Prieto D.O.; NORBERTO BOLANOS [place] [address] Patient Name: EDUAR STEWARD MRN: [id number] date: 1990 Sex: F Assigned Patient Location: [facility] Current Patient Location: [facility] Accession/Order Number: [id number] Exam Date: 08/27/2024 13:58 Report Date: 08/27/2024 [...] Nava M.D. 08/27/2024 2:00 PM Dictation Location: [employer] Electronically authenticated by: [id number] Y Date: 4:00 Dictated By: Deepak Nava D.O. Signed By:08/27/24 1402 DD/ 1400 TD/TT: [employer]: Nina Conner DO [facility]AG[facility] Final Result * (ABNORMAL) POCT urinalysis dipstick manually resulted [...] Positive Urine 08/23/2024 3:11 PM EDT Nina Conner DO POINT OF CARE TEST ENTER/EDIT OR DERABLES Final Result * US OB GROWTH (08/14/2024 9:06 AM EDT) Anatomical Region Laterality Modality Other 08/14/2024 9:06 AM EDT Narrative 08/14/2024 9:09 [place] [address] Ultrasound Report Signed Patient: EDUAR STEWARD MR#: [id number] : 1990 Acct:[id number] Age/Sex: 34 / F ADM Date: 08/13/24 Loc: US Attending Dr: Nina Prieto D.O. Ordering Physician: Nina Prieto D.O. Date of Service: 08/13/24 Procedure(s): US OB growth Accession Number(s): [id number] cc: Nina Prieto D.O.; NORBERTO BOLANOS [place] [id number] Patient Name: EDUAR STEWARD MRN: [id number] date: 1990 Sex: F Assigned Patient Location: US Current Patient Location: Accession/Order Number: [id number] Exam Date: 08/14/2024 09:01 Report Date: 08/14/2024 [...] Blake M.D. 08/14/2024 9:06 AM Dictation Location: [place] [address] Electronically authenticated by: [id number] Y Date: 08/14/2024 09:06 Dictated By: Gunnar Blake M.D. Signed By: 08/14/24908 DD/ 5 TD/TT: [employer]: Procedure Note Radiology, Radiologist, - 08/14/2024 [place] [address] Ultrasound Report Signed Patient: EDUAR STEWARD KMR#: [id number] : 1990Acct:[id number] Age/Sex: 34 / FADM Date: 08/13/24 Loc: US Attending Dr: Nina Prieto D.O. Ordering Physician: Nina Prieto D.O. Date of Service: 08/13/24 Procedure(s): US OB growth Accession Number(s): [id number] cc: Nina Prieto D.O.; NORBERTO BOLANOS [facility] [place] [address] Patient Name: EDUAR STEWARD MRN: [id number] date: 1990 Sex: F Assigned Patient Location: US Current Patient Location: Accession/Order Number: [id number] Exam Date: 08/14/2024 09:01 Report Date: 08/14/2024 [...] Blake M.D. 08/14/2024 9:06 AM Dictation Location: [place] [address] Electronically authenticated by: [id number] Y Date: 509:06 Dictated By: Gunnar Blake M.D. Signed By:08/14/2409 DD/ 5 TD/TT: [employer]: us Nina Conner DO [facility] Final [...] II, MD, PHD at 11-Jul-2024 11:47:38 PM [facility] Procedure Note Travis Dangelo MD - [...] signed by TRAVIS DANGELO II, MD, PHD [id number] 11:47:38 PM [facility] us Karyna BENITES IMG OB US PROCEDURES Final Resul t * (ABNORMAL) GLUCOSE 1 HOUR (07/08/2024 12:02 PM EDT) GLUCOSE 1 HOUR 202(H) <130 mg/dL TBH 07/08/2024 12:0 2 PM EDT 07/08/2024 12:06 PM EDT Narrative CLINISYNC - 07/08/2024 12:18 PM EDT Karyna BENITES LAB BLOOD ORDERABLES Final [facility]ul t [facility] * (ABNORMAL) ALL CBC WITH AUTO DIFF (07/08/2024 12:02 PM EDT) [facility] TB WBC 8.1 4.0 - 11.0 [...] 12:06 PM EDT Narrative [facility]IN[facility] - 07/08/2024 12:15 PM EDT us Karyna BENITES CLINISYCURRY Final Result Performing Organization Address [facility] Co de Phone Number SCAR [facility] * [...] ORDERABLES Final Re sult Performing Organization Address [facility] Co de Phone Number EXTERNAL LAB from Last 3 Months or Most Recently Relevant to Health Maintenance Additional Health Concerns Active Problems Noted Date Diagnosed Date OB Reminders 03/28/2024 Insurance [facility] Care Teams Industrial Management Teacher Relationship Specialty Start Date End Date Karen Bolanos MD [address] [place] [address] PCP - General Family Medicine 11/10/22
--- OUTSIDE RECORDS SUMMARY | 2024-08-31 09:51 | XMS_ITS | Clinical Summary ---
Author Organization [facility] Address [address] [place] [address] Phone Care Team Providers Care Lining Machine Operator Name Role Phone Karen Bolanos MD Primary Care Provider [phone] Social History Tobacco Use Types Packs/Day Years [...] of Treatment Not on file Care Teams Lining Machine Operator Relationship Specialty Start Date End Date Karen Bolanos MD [address] [place] [address] PCP - General 03/11/21
--- OUTSIDE RECORDS SUMMARY | 2024-08-31 09:51 | XMS_ITS | Clinical Summary ---
Author Organization [facility] Address [facility] [place] [id number] Care Team Providers Care Operator Technician Name Role Phone Unavailable Primary Care Provider [...] Care Team Description 07/20/2024 Telephone Maternal Medicine [address] [facility] [address] [place], [place] [address] Historical 06/01/2024 11:00 AM EST Routine Office Visit Maternal Medicine [facility] [address] [place] [address] Encounter for anatomic survey (Primary Dx); Obesity affecting in second trimester, unspecified obesity type; Class 1 obesity without serious comorbidity with body mass index (BMI) of 34.0 to 34.9 in adult, unspecified obesity type; 23 weeks gestation of 06/01/2024 Travel from Last 3 Months Family History Medical [...] is lower risk 5 06/08/2023 Data from: https://www.neighborhoodatlas.medicine.[facility]/. Last address used for calculation [...] Cervical Cancer Screening 03/18/2016 03/18/2013 Covid-19 Vaccine (2023-2 5 season) 2023 08/17/2020, 07/20/2020 Influenza Vaccine [...] 6 oz EFW by: Hadlock (HC-AC-FL) Extended Still Operator Brandy 4.7 mm CM 8.4 mm Nasal bone [...] normal LVOT view: normal 3-vessel view: normal 2-lqntba-wozcgme view: normal Heart / Thorax Situs: situs [...] Jung RDMS Read By: Leonid Dougherty M.D. Karin Gloria APRN.[facility] Final Re sult * HIV 1 2 COMBO(AG/AB),WITH REFLEX TO DIFFERENTIATION (07/28/2023 10:49 AM EDT) HIV 12 Combo (Ag/Ab) Nonreactive Nonreactive 07/28/2023 7:25 PM EDT [facility] HIV-1/2 AB (Confirmatory) 07/28/2023 7:25 PM EDT [facility] Comment:Test not indicated. HIV Interpretation 07/28/2023 7:25 PM EDT [facility] Comment: No evidence of HIV-1 or HIV-2 infection. Should recent infection be suspected, repeat testing may be considered 2-3 weeks after this draw. Meagher Rev. Code 3701.243(E): This information has been [...] 10:49 AM EDT 07/28/2023 10:49 AM EDT Andressa Abraham READING COACH.[facility] Final Result [facility] [address] [place] [address], * HEPATITIS C ANTIBODY IA WITH CONFIRMATION (07/28/2023 10:49 AM EDT) Hep C Antibody IA Negative Negative 07/28/2023 7:25 PM EDT [facility] Comment:The result suggests no evidence of active infection with Hepatitis C virus. Should recent infection be suspected, repeat testing may be considered 4-6 weeks after this draw. Blood BLOOD SPECIMEN / Unknown Venipuncture / Unknown 07/28/2023 10:49 AM EDT 07/28/2023 10:49 AM EDT us Andressa Abraham READING COACH.[facility] Final Result Performing Organization Address City/[facility]/ZIP Co de Phone Number [facility] [address] [facility] [address] [place] [address], [place] * PAP FLUID CERVICAL DIAGNOSTIC (03/18/2013 11:34 AM EST) Pathologist [facility] Dragline Operator [facility] DEPARTMENT OF PATHOLOGY CYTOLOGY REPORT [id number] Submitting Physician: Jacqui Villa MD Procedure Date: [...] from every slide are reviewed by a book publisher. TRAVIS Zuniga(ASCP) Weight And Balance Control Agent Electronic Signature CLINICAL HISTORY DYSPLASIA [facility] 03/18/2013 11:3 4 AM EST 03/21/2013 9:19 AM EST Jacqui Villa MD CYTOLOGY Final Result Performing Organization Address City/[facility]/ZIP Co de Phone Number [facility] [address] [place] [phone] from Last 3 Months or Most Recently Relevant to Health Maintenance Insurance BLUE CARD PPO OOS
[2024-08-31 13:07] VITALS: BP 113/72; PULSE 101; TEMP 36.4
== END 2024-08-31 13:56 | disposition home or self-care (01) ==
LOC: FBCO 09:49 → FBC 12:57
PROVIDERS: PCP Student in an Organized Health Care Education/Training Program; Visit Provider Obstetrics & Gynecology
DX: O24.419 Gestational diabetes mellitus in pregnancy, unspecified control (principal); Z34.93 Encounter for supervision of normal pregnancy, unspecified, third trimester
CPT/HCPCS: 59025; 87081

== ENCOUNTER 2024-08-31 20:59 | Outpatient (REF) | payer BC, SELFPAY ==
--- OUTSIDE RECORDS SUMMARY | 2024-08-23 14:40 | XMS_ITS | Encounter Summary ---
Author Organization [facility] Address [address] [place] [address] Care Team Providers Care Drier Helper Name Role Phone Karen Bolanos MD Primary Care Provider [phone] Reason for Visit * Reason Comments Routine Visit Encounter Details Date Type Department Care Team (Late st Contact Info) Description 08/23/2024 2:40 PM EDT Routine [facility] [address] [facility] [place] [phone] Andrea Prieto, [address] [facility] [address] [place], [place] [id number] 35 weeks gestation of ; Third trimester [...] to check FSBS. Blood Glucose Monitoring Suppl ([employer] Glucometer) w/Device kit 1 kit, Does not [...] episode of recurrent major depressive disorder (HCC) ([facility]/HCC) 12/28/2023 Restless leg 12/28/2023 Resolved Ambulatory Problems [...] nursing note reviewed. Exam conducted with a flower buncher or picker present. Vitals: Estimated body mass index is [...] PM EDT Routine [facility] [address] [place] [address] Andrea Prieto DO [address] [facility] [place] [address] documented as of this encounter Goals [...] documented as of this encounter Care Teams Drier Helper Relationship Specialty Start Date End Date Karen Bolanos MD [address] [place] [address] PCP - General Family Medicine 11/10/22 documented as of this encounter
--- OUTSIDE RECORDS SUMMARY | 2024-08-31 11:20 | XMS_ITS | Encounter Summary ---
Author Organization [facility] Address [address] [place] [address] Care Team Providers Care Slps Name Role Phone Karen Bolanos MD Primary Care Provider [phone] Reason for Visit * Reason Comments Routine Visit Encounter Details Date Type Department Care Team (Late st Contact Info) Description 08/31/2024 11:20 AM EDT Routine [facility] OB [address] [facility] [place] [address] Karyna Craig PA [address] [place] [address] 36 weeks gestation of ; Third trimester Social History Tobacco Use Types Packs/Day Years [...] Sign Reading Time Taken Comments Blood Pressure 120/70 08/31/2024 11:53 AM EDT Pulse - - Temperature - - Respiratory Rate - - Oxygen Saturation - - Inhaled Oxygen Concentration - - Weight 102 kg (225 lb) 08/31/2024 11:53 AM EDT Height - - Body Mass Index 39.86 12/28/2023 8:37 AM EDT documented in this encounter Progress Notes * KAMARI Zavala - 08/31/2024 11:20 AM EDT Reason for Appointment: Patient ID: Nelli Steward is a 34 y.o. female who presents for Routine Visit Patient presents today for Return OB appointment. MEDICATIONS Current Outpatient Medications Medication Instructions omeprazole (PRILOSEC) 20 mg, Oral, Daily before breakfast, Do not crush or chew. MV-Min-Fe Fum-FA-DHA ( 1 PO) 1 tablet, Daily ALLERGIES No Known Allergies PROBLEMS Active Ambulatory Problems Diagnosis Date Noted Mild episode of recurrent major depressive disorder (HCC) ([facility]/HCC) 12/28/2023 Restless leg 12/28/2023 Resolved Ambulatory Problems [...] reviewed. Vitals: Estimated body mass index is 39.86 kg/m?? as calculated from the following: Height as of 12/28/23: 5' 3 . Weight as of this encounter: 225 lb. BP: 120/70 Patient's last menstrual period was 12/19/2023. ASSESSMENT & PLAN ICD-10-CM 1. 36 weeks gestation of Z3A.36 POCT urinalysis dipstick manually resulted 2. Third trimester Z34.93 CULTURE, GROUP B STREP WITH SUSCEPTIBLITY POCT urinalysis dipstick manually resulted CULTURE, GROUP B STREP WITH SUSCEPTIBLITY Return OB: Patient presents today for a routine obstetrics appointment. Patient is currently 36w4d . Patient states she is doing well but has complaints of being tired due to current . Patient has verbalizes frequent movement. labor precautions was discussed/given and patient was instructed to perform kick counts three times a day. Orders Placed This Encounter Procedures CULTURE, GROUP B STREP WITH SUSCEPTIBLITY POCT urinalysis dipstick manually resulted Follow Up: Patient is to return to office in 1 week for routine OB appointment. Documented by KAMARI Zavala on behalf of: KAMARI Zavala documented in this encounter Plan of Treatment Upcoming Encounters Date Type Department Care Team (Late st Contact Info) Description 09/07/2024 3:00 PM EDT Routine [facility] OB [address] [place] [address] Andrea Prieto, DO [address] [place] [address] Scheduled Orders Name Type Priority Associated Diagnoses Orde r Schedule CULTURE, GROUP B STREP WITH SUSCEPTIBLITY Lab Routine Third trimester Expected: 08/31/2024, Expires: 08/31/2025 documented as of this encounter Goals Goal Patient Goal Type Associated Problems Recent Progress Patient-Stated? Author Reminders Care Plan OB Reminders No Open Scheduling, Background documented as of this encounter Procedures Procedure Name Priority Date/Time Associated Diagnosis Comments POCT URINALYSIS DIPSTICK Routine 08/31/2024 11:59 AM EDT 36 weeks gestation of Third trimester documented in this encounter Results * (ABNORMAL) POCT urinalysis dipstick manually resulted (08/31/2024 11:59 AM EDT) Color, UA Dark Shereen Clarity, UA Cloudy Glucose, UA Negative Negative - 2000(110) ++++ mg/dL Bilirubin, UA Negative Negative - 4(70) +++ mg/dL Ketones, UA Negative Negative - 160(16) ++++ mg/dL Spec Grav, UA 1.025 1 - 1.03 Blood, UA Negative Negative - 50 Mukesh/mcL pH, UA 6.5 5 - 9 Protein, UA Positive Negative - 2000(20) ++++ mg/dL Comment:30 Urobilinogen, UA 1.0 0.2 - 12 mg/dL Leukocytes, UA Negative Negative - 500+++ Shannon/mcL Nitrite, UA Negative Negative - Positive Urine 08/31/2024 11:5 9 AM EDT Karyna BENITES POINT OF CARE TEST ENTER/EDIT OR DERABLES Final Result documented in this encounter Visit Diagnoses Diagnosis 36 weeks gestation of Third trimester state, incidental documented in this encounter Additional Health Concerns Active Problems Noted Date Diagnosed Date OB Reminders 03/28/2024 documented as of this encounter Care Teams Slps Relationship Specialty Start Date End Date Karen Bolanos MD [address] [place] [address] PCP - General Family Medicine 11/10/22 documented as of this encounter
--- OUTSIDE RECORDS SUMMARY | 2024-08-31 21:03 | XMS_ITS | Encounter Summary ---
Author Organization [facility] Address [address] [place] [address] Care Team Providers Care Instructional Supervisor Name Role Phone Karen Bolanos MD Primary Care Provider Encounter Details Date Type Department Care Team (Late st Contact Info) Description 07/12/2024 Abstract [facility] [address] [facility] [place] [address] Karyna Craig PA [address] [facility] [address] [place], [facility] Social History Tobacco Use Types Packs/Day [...] PM EDT Routine [facility] OB [address] [facility] [place] [address] Andrea Prieto, [address] [facility] [place] [address] documented as of this encounter Goals Goal Patient Goal Type Associated Problems Recent Progress Patient-Stated? Author Reminders Care Plan OB Reminders No Open Scheduling, Background documented as of this encounter Visit Diagnoses Not on filedocumented in this encounter Additional Health Concerns Active Problems Noted Date Diagnosed Date OB Reminders 03/28/2024 documented as of this encounter Care Teams Instructional Supervisor Relationship Specialty Start Date End Date Karen Bolanos MD [address] [place] [address] PCP - General Family Medicine 11/10/22 documented as of this encounter
--- OUTSIDE RECORDS SUMMARY | 2024-08-31 21:03 | XMS_ITS | Encounter Summary ---
Author Organization [facility] Address [address] [place] [address] Care Team Providers Care Road Design Draftsperson Name Role Phone Karen Bolanos MD Primary Care Provider [phone] Encounter Details Date Type Department Care Team (Late st Contact Info) Description 08/23/[address] [facility] OB [address] [place] [address] Andrea Prieto, DO [address] [place], [facility] Social History Tobacco Use Types Packs/Day [...] PM EDT Routine [facility] OB [address] [facility] [address] Andrea Prieto, [address] [facility] [place] [address] documented as of this encounter Goals Goal Patient Goal Type Associated Problems Recent Progress Patient-Stated? Author Reminders Care Plan OB Reminders No Open Scheduling, Background documented as of this encounter Visit Diagnoses Not on filedocumented in this encounter Additional Health Concerns Active Problems Noted Date Diagnosed Date OB Reminders 03/28/2024 documented as of this encounter Care Teams Road Design Draftsperson Relationship Specialty Start Date End Date Karen Bolanos MD [address] [place] [address] PCP - General Family Medicine 11/10/22 documented as of this encounter
--- OUTSIDE RECORDS SUMMARY | 2024-08-31 21:03 | XMS_ITS | Encounter Summary ---
Author Organization [facility] Address [address] [place] [address] Care Team Providers Care Oral And Maxillofacial Surgery Resident Name Role Phone Karen Bolanos MD Primary Care Provider [phone] Karen Bolanos MD Unavailable Encounter Details Date Type Department Care Team (Late st Contact Info) Description 03/11/2024 Abstract [facility] [address] [place] [address] Andrea Prieto, [address] [place], [place] [id number] Social History Tobacco Use Types Packs/Day Years [...] PM EDT Routine [facility] [address] [facility] [phone] Andrea Prieto, [address] [facility] [place] [address] documented as of this encounter Visit Diagnoses Not on filedocumented in this encounter Care Teams Oral And Maxillofacial Surgery Resident Relationship Specialty Start Date End Date Karen Bolanos MD [address] [place] [address] PCP - General Family Medicine 11/10/22 Karen Bolanos MD [address] [place] [address] PCP - Nish Medina 12/28/22 5 documented as of this encounter
--- OUTSIDE RECORDS SUMMARY | 2024-08-31 21:03 | XMS_ITS | Encounter Summary ---
Author Organization [facility] Address [address] [place] [address] Care Team Providers Care Correctional Supervising Cook Name Role Phone Karen Bolanos MD Primary Care Provider [phone] Encounter Details Date Type Department Care Team (Late st Contact Info) Description 08/29/2024 Abstract [facility] [address] [place] [phone] Andrea Prieto, DO [address] [place], [facility] Social History Tobacco Use Types Packs/Day Years [...] PM EDT Routine [facility] BCP OB [address] [facility] [place] [address] Andrea Prieto, [address] [facility] [place] [address] documented as of this encounter Goals Goal Patient Goal Type Associated Problems Recent Progress Patient-Stated? Author Reminders Care Plan OB Reminders No Open Scheduling, Background documented as of this encounter Visit Diagnoses Not on filedocumented in this encounter Additional Health Concerns Active Problems Noted Date Diagnosed Date OB Reminders 03/28/2024 documented as of this encounter Care Teams Correctional Supervising Cook Relationship Specialty Start Date End Date Karen Bolanos MD [address] [place] [address] PCP - General Family Medicine 11/10/22 documented as of this encounter
--- OUTSIDE RECORDS SUMMARY | 2024-08-31 21:03 | XMS_ITS | Encounter Summary ---
Author Organization [facility] Address [facility] [place] [address] Care Team Providers Care Mail Carrier And Clerk Name Role Phone Unavailable Primary Care Provider Unavailabl e Source Comments In the event this information is protected by the Federal Confidentiality of Alcohol and Drug AbusePatient Records regulations: The Federal rules restrict any use of the information to criminally investigate or prosecute any alcohol or drug abuse patient.[facility] Encounter Details Date Type Department Care Team (Latest Contact Info) Description 12/01/2023 Get Medical Advice Reproductive Endocrinology Infertility [address] [place] [address] Andressa Abraham APRN.VP SALES [address] [place] [address] Financial clearance Social History Tobacco Use Types [...] is lower risk 5 06/08/2023 Data from: https://www.neighborhoodatlas.medicine.[facility].edu/. Last address used for calculation [address] [...]
--- OUTSIDE RECORDS SUMMARY | 2024-08-31 21:03 | XMS_ITS | Encounter Summary ---
Author Organization [facility] Address [address] [place] [address] Care Team Providers Care Independent Crop Consultant Name Role Phone Karen Bolanos MD Primary Care Provider [phone] Encounter Details Date Type Department Care Team (Late st Contact Info) Description 08/19/2024 Telephone [facility] [address] [place] [address] Andrea Prieto, DO [address] [place], [facility]11 Social History Tobacco Use Types Packs/Day [...] PM EDT Routine [facility] BCP OB [address] [facility] [place] [phone] Andrea Prieto, DO [address] [facility] [place] [address] documented as of this encounter Goals Goal Patient Goal Type Associated Problems Recent Progress Patient-Stated? Author Reminders Care Plan OB Reminders No Open Scheduling, Background documented as of this encounter Visit Diagnoses Not on filedocumented in this encounter Additional Health Concerns Active Problems Noted Date Diagnosed Date OB Reminders 03/28/2024 documented as of this encounter Care Teams Independent Crop Consultant Relationship Specialty Start Date End Date Karen Bolanos MD [address] [place] [address] PCP - General Family Medicine 11/10/22 documented as of this encounter
--- OUTSIDE RECORDS SUMMARY | 2024-08-31 21:03 | XMS_ITS | Encounter Summary ---
Author Organization [facility] Address [address] [place] [address] Care Team Providers Care Special Police Officer Name Role Phone Karen Bolanos MD Primary Care Provider [phone] Encounter Details Date Type Department Care Team (Late st Contact Info) Description 08/24/2024 Telephone [facility] OB [address] [employer] [place] [address] Shanika Rubi [facility] [place] [address] Social History Tobacco Use Types Packs/Day Years [...] PM EDT Routine [facility] BCP OB [address] [place] [address] Andrea Prieto, DO [address] [facility] [place] [address] documented as of this encounter Goals Goal Patient Goal Type Associated Problems Recent Progress Patient-Stated? Author Reminders Care Plan OB Reminders No Open Scheduling, Background documented as of this encounter Visit Diagnoses Diagnosis Gastroesophageal reflux in documented in this encounter Additional Health Concerns Active Problems Noted Date Diagnosed Date OB Reminders 03/28/2024 documented as of this encounter Care Teams Special Police Officer Relationship Specialty Start Date End Date Karen Bolanos MD [address] [place] [address] PCP - General Family Medicine 11/10/22 documented as of this encounter
--- OUTSIDE RECORDS SUMMARY | 2024-08-31 21:03 | XMS_ITS | Encounter Summary ---
Author Organization [facility] Address [address] [place] [address] Care Team Providers Care Webfocus Developer Name Role Phone Karen Bolanos MD Primary Care Provider [phone] Encounter Details Date Type Department Care Team (Late st Contact Info) Description 08/20/2024 Clinisync Result Encounter [facility] External Department Unsolicited Nina Prieto, DO [address] [place] [address] Social History Tobacco Use Types [...] PM EDT Routine [facility] [address] [place] [address] Nina Prieto, DO [address] [facility] [place] [address] documented as of this encounter Goals Goal [...] PM EDT Narrative 08/20/2024 1:32 [place] [address] Ultrasound Report Signed Patient: EDUAR CARPENTER MR#: [id number] : 1990 Acct:[id number] Age/Sex: 34 / F ADM Date: 08/20/24 Loc: [place] [address]: Nina Prieto D.O. Ordering Physician: Nina Prieto D.O. Date of Service: 08/20/24 Procedure(s): US OB BPP w non-stress Accession Number(s): [id number] cc: Nina Prieto D.O.; NORBERTO BOLANOS [address] [address] Patient Name: EDUAR CARPENTER MRN: [id number] date: 1990 Sex: F Assigned Patient Location: [facility] Current Patient Location: [facility] Accession/Order Number: [id number] Exam Date: 08/20/2024 13:28 Report Date: 08/20/2024 [...] Blake M.D. 08/20/2024 1:30 PM Dictation Location: [place] [address] Electronically authenticated by: [id number] Y Date: 08/20/2024 13:30 Dictated By: Gunnar Blake M.D. Signed By: 08/20/24 133 DD/ 133 TD/TT: Ivf Embryologist: Procedure Note Radiology, Radiologist, MD - 08/20/2024 [place] [address] Ultrasound Report Signed Patient: EDUAR CARPENTER KMR#: [id number] : 1990Acct:[id number] Age/Sex: 34 / FADM Date: 08/20/24 Loc: [facility] [address]: Nina Prieto D.O. Ordering Physician: Nina Prieto D.O. Date of Service: 08/20/24 Procedure(s): US OB BPP w non-stress Accession Number(s): [id number] cc: Nina Prieto D.O.; NORBERTO BOLANOS [address] [address] Patient Name: EDUAR CARPENTER MRN: [id number] date: 1990 Sex: F Assigned Patient Location: [facility] Current Patient Location: [facility] Accession/Order Number: [id number] Exam Date: 08/20/2024 13:28 Report Date: 08/20/2024 [...] Blake M.D. 08/20/2024 1:30 PM Dictation Location: [facility] Electronically authenticated by: [id number] Y Date: 3:30 Dictated By: Gunnar Blake M.D. Signed By:08/20/24 1332 DD/ 1330 TD/TT: Ivf Embryologist: Nina Prieto DO [facility] Final Result documented in this encounter Visit Diagnoses Not on filedocumented in this encounter Additional Health Concerns Active Problems Noted Date Diagnosed Date OB Reminders 03/28/2024 documented as of this encounter Care Teams Webfocus Developer Relationship Specialty Start Date End Date Karen Bolanos MD [address] [place] [address] PCP - General Family Medicine 11/10/22 documented as of this encounter
--- OUTSIDE RECORDS SUMMARY | 2024-08-31 21:03 | XMS_ITS | Encounter Summary ---
Author Organization [facility] Address [address] [place] [address] Care Team Providers Care Music Engraver Name Role Phone Karen Bolanos MD Primary Care Provider [phone] Karen Bolanos MD Unavailable Encounter Details Date Type Department Care Team (Late st Contact Info) Description 03/09/2024 Abstract [facility] [address] [place] [address] Andrea Prieto, [address] [place], [place] [address] Social History Tobacco Use Types Packs/Day Years [...] PM EDT Routine [facility] B[facility] OB [address] [facility] [place] [address] Andrea Prieto, [address] [facility] [place] [address] documented as of this encounter Visit Diagnoses Not on filedocumented in this encounter Care Teams Music Engraver Relationship Specialty Start Date End Date Karen Bolanos MD [address] [place] [address] PCP - General Family Medicine 11/10/22 Karen Bolanos MD [address] [place] [address] PCP - [place] [employer] 12/28/22 5 documented as of this encounter
--- OUTSIDE RECORDS SUMMARY | 2024-08-31 21:03 | XMS_ITS | Encounter Summary ---
Author Organization [facility] Address [facility] [place] [address] Care Team Providers Care Field Foreman Name Role Phone Unavailable Primary Care Provider Unavailabl e Source Comments In the event this information is protected by the Federal Confidentiality of Alcohol and Drug AbusePatient Records regulations: The Federal rules restrict any use of the information to criminally investigate or prosecute any alcohol or drug abuse patient.[facility] Encounter Details Date Type Department Care Team (Late st Contact Info) Description 02/09/2024 Patient Msg Reproductive Endocrinology Infertility [address] [facility] [place] [address] Margo Cortez APRN.GROUND HOST/HOSTESS [address] [facility] [address] [place] [id number] Congratulations!!! Social History Tobacco Use Types Packs/Day Years Used Date Smoking Tobacco: Never Smokeless Tobacco: Never Alcohol Use Standard Drinks/Week Comments Yes 0 (1 standard drink = 0.6 oz pur e alcohol) social Area Deprivation Index Answer Date Abhishek rded National Score (1-100), lower number is lower ri sk 71 06/08/2023 State Score (1-10), lower number is lower risk 5 06/08/2023 Data from: https://www.neighborhoodatlas.medicine.[facility].edu/. Last address used for calculation [...]
--- OUTSIDE RECORDS SUMMARY | 2024-08-31 21:03 | XMS_ITS | Encounter Summary ---
Author Organization [facility] Address [address] [place] [address] Care Team Providers Care Taping Machine Operator Name Role Phone Karen Bolanos MD Primary Care Provider [phone] Encounter Details Date Type Department Care Team (Late st Contact Info) Description 08/09/2024 Abstract [facility] [address] [place] [address] Andrea Prieto, [address] [place], [facility]11 Social History Tobacco Use Types Packs/Day [...] EDT Routine [facility] BCP OB [address] [facility] [place] [address] Andrea Prieto, [address] [facility] [place] [address] documented as of this encounter Goals Goal Patient Goal Type Associated Problems Recent Progress Patient-Stated? Author Reminders Care Plan OB Reminders No Open Scheduling, Background documented as of this encounter Visit Diagnoses Not on filedocumented in this encounter Additional Health Concerns Active Problems Noted Date Diagnosed Date OB Reminders 03/28/2024 documented as of this encounter Care Teams Taping Machine Operator Relationship Specialty Start Date End Date Karen Bolanos MD [address] [place] [address] PCP - General Family Medicine 11/10/22 documented as of this encounter
--- OUTSIDE RECORDS SUMMARY | 2024-08-31 21:03 | XMS_ITS | Encounter Summary ---
Author Organization [facility] Address [address] [place] [address] Care Team Providers Care Switchbox Assembler Name Role Phone Karen Bolanos MD Primary Care Provider [phone] Karen Bolanos MD Unavailable Encounter Details Date Type Department Care Team (Late st Contact Info) Description 03/11/2024 Abstract [facility] [address] [place] [address] Andrea Prieto, [address] [place], [place] [id number] Social History Tobacco Use Types Packs/Day Years [...] PM EDT Routine [facility] BCP OB [address] [facility] [place] [address] Andrea Prieto, [address] [facility] [place] [address] documented as of this encounter Visit Diagnoses Not on filedocumented in this encounter Care Teams Switchbox Assembler Relationship Specialty Start Date End Date Karen Bolanos MD [address] [place] [address] PCP - General Family Medicine 11/10/22 Karen Bolanos MD [address] [place] [address] PCP - Nish Medina 12/28/22 5 documented as of this encounter
--- OUTSIDE RECORDS SUMMARY | 2024-08-31 21:03 | XMS_ITS | Encounter Summary ---
Author Organization [facility] Address [address] [place] [address] Care Team Providers Care Thermostat Machine Tender Name Role Phone Karen Bolanos MD Primary Care Provider [phone] Karen Bolanos MD Unavailable [phone] Encounter Details Date Type Department Care Team (Late st Contact Info) Description 03/14/2024 Abstract [facility] [address] [place] [address] Andrea Prieto, [address] [place], [place] [address] Social History Tobacco Use Types Packs/Day Years [...] [facility] [place] [address] Andrea Prieto, [address] [facility] [place] [address] documented as of this encounter Visit Diagnoses Not on filedocumented in this encounter Care Teams Thermostat Machine Tender Relationship Specialty Start Date End Date Karen Bolanos MD [address] [place] [address] PCP - General Family Medicine 11/10/22 Karen Bolanos MD [address] [place] [address] PCP - Nish Medina 12/28/22 5 documented as of this encounter
--- OUTSIDE RECORDS SUMMARY | 2024-08-31 21:03 | XMS_ITS | Clinical Summary ---
Author Organization [facility] Healthcare Address [address] [place] [address] Care Team Providers Care Machine Whitener Name Role Phone Karen Bolanos MD Primary Care Provider [phone] Allergies No known active allergies Medications omeprazole (PriLOSEC) [address] capsuleIndicati ons:Gastroesoph ageal Reflux Disease,Heartbu rn Take 1 capsule (20 mg) by mouth in the morning. Take before meals. Do not crush or chew. 30 capsule 3 08/25/19 25 025 Active MV-Min-Fe Fum-FA-DHA ( 1 PO) Take 1 tablet by mouth Daily Active clindamycin (Cleocin-T) 1 % lotionIndicatio ns:Other acne Apply topically 2 (two) times a day 60 mL 04/19/19 25 025 Discontinued Lancets Ultra Thin miscIndications :Gestational diabetes mellitus (GDM), antepartum, gestational diabetes method of control unspecified,Roz vated glucose tolerance test 1 each by In Vitro route Daily Use to check FSBS four times daily 150 each 3 07/13/19 25 025 Alcohol Swabs (Alcohol Prep Pad) 70 % padsIndications :Gestational diabetes mellitus (GDM), antepartum, gestational diabetes method of control unspecified,Roz vated glucose tolerance test Apply 1 Pad topically Daily Use four times daily to check FSBS. 150 each 3 07/13/19 25 025 Discontinued Glucose Blood (Blood Glucose Test) stripIndication s:Gestational diabetes mellitus (GDM), antepartum, gestational diabetes method of control unspecified,Roz vated glucose tolerance test 1 strip by In Vitro route Daily Use in the morning prior to breakfast, 1 hour after each meal for a total of 4times daily. 150 strip 3 07/13/19 25 025 Blood Glucose Monitoring Suppl (D-Care Glucometer) w/Device kitIndications: Gestational diabetes mellitus (GDM), antepartum, gestational diabetes method of control unspecified,Roz vated glucose tolerance test 1 kit Daily Use four times daily to check FSBS. In the morning prior to breakfast & 1 hour after each meal for a total of 4times daily. 1 kit 07/13/19 25 025 Discontinued omeprazole (PriLOSEC) 20 MG [...] Encounters Date Type Department Care Team Description 08/31/2024 11:20 AM EDT Routine [facility] [place] [address] [place] [address] Karyna Craig PA 36 weeks gestation of ; Third trimester 08/31/2024 Bamboo flowsheet [facility] [place] [address] [place] [phone] Karyna Craig PA 08/29/2024 Abstract [facility] OB [address] [place] [address] [place] [address] Nina Prieto, DO 08/27/2024 Clinisync Result Encounter [facility] External Department Unsolicited Nina Prieto, DO 08/24/2024 Telephone [facility] OB [address] [place] [address] [place] [phone] Shanika Rubi MA 08/23/2024 2:40 PM EDT Routine [facility] OB [address] [place] [address] [place] [address] Nina Prieto, DO 35 weeks gestation of ; Third trimester ; Gastroesophageal reflux in 08/23/2024 Bamboo flowsheet [facility] OB [address] [place] [address] [place] [phone] Nina Prieto, DO 08/20/2024 Clinisync Result Encounter [facility] External Department Unsolicited Nina Prieto, DO 08/19/2024 Telephone [facility] [address] [place] [address] [phone] Nina Prieto, DO 08/14/2024 Clinisync Result Encounter [facility] External Department Unsolicited Nina Prieto, DO 08/14/2024 Clinisync Result Encounter [facility] External Department Unsolicited Nina Prieto, DO 08/09/2024 Abstract [facility] OB [address] [place] [address] [place] [address] Nina Prieto, DO 08/08/2024 2:10 PM EDT Routine [facility] OB [address] [place] [address] [place] [address] Nina Prieto, DO Third trimester ; 33 weeks gestation of ; Gestational diabetes mellitus (GDM), antepartum, gestational diabetes method of control unspecified 08/08/2024 Bamboo flowsheet [facility] OB [address] [place] [address] [place] [address] Nina Prieto, DO 08/01/2024 Telephone [facility] OB [address] [place] [address] [place] [address] Nina Prieto DO 07/25/2024 10:40 AM EDT Routine [facility] OB [address] [place] [address] [place] [address] Steffanie Gerard, ABDI Third trimester ; 31 weeks gestation of 07/25/2024 Bamboo flowsheet [facility] OB [address] [place] [address] [place] [address] Steffanie Gerard, ABDI 07/12/2024 Abstract [facility] [address] [place] [address] Karyna Craig PA 07/12/2024 Telephone [facility] [address] [place] [address] Karyna Craig PA 07/11/2024 11:00 AM EDT Routine [facility] OB [address] [place] [address] [place] [address] Nina Prieto DO Third trimester ; 29 weeks gestation of ; Gestational diabetes mellitus (GDM), antepartum, gestational diabetes method of control unspecified 07/11/2024 10:30 AM EDT Ancillary Procedure [facility] [address] [place] [address] 07/08/2024 Clinisync Result Encounter [facility] External Department Unsolicited Karyna Craig PA 06/22/2024 1:20 PM EDT Routine [facility] OB [address] [place] [address] [place] [address] Nina Prieto DO Second trimester ; 26 weeks gestation of ; Diabetes mellitus screening; size inconsistent with dates 06/22/2024 Bamboo flowsheet [facility] [address] [place] [address] Nina Prieto DO 05/31/2024 1:00 PM EST Ancillary Procedure [facility] US [address] [place] [address] Mass of right breast, unspecified quadrant; Neoplasm of unspecified behavior of breast 05/31/2024 Travel from Last 3 Months Immunizations Immunization Administration Dates Next Due DTaP 02/08/1993, 2,1991,1991 DTaP, Unspecified 02/08/1993, 2,1991,1991 Hep B, Adolescent or Pediatric 12/08/2003 HiB, unspecified 02/08/1993, 2,1991,1991 Hib (HbOC) 02/08/1993, 2,1991,1991 Influenza, injectable, quadrivalent 06/15/2023 Influenza, injectable, quadr ivalent, preservative free 12/10/2016 MMR 09/13/2023,12/08/2003,10/27/1996 Novel [id number], preservative-free 02/16/2009 Polio, Unspecified 02/08/1993,1991, 992 Tetanus [...] Pressure 120/70 08/31/2024 11:53 AM EDT Pulse 76 12/28/2023 8:37 AM EDT Temperature 37 C (98.6 F) 12/28/2023 8:37 AM EDT Respiratory Rate - - Oxygen Saturation 98% 12/28/2023 8:37 AM EDT Inhaled Oxygen Concentration - - Weight 102 kg (225 lb) 08/31/2024 11:53 AM EDT Height 160 cm (5' 3 ) 12/28/2023 8:37 AM EDT Body Mass Index 39.86 12/28/2023 8:37 AM EDT Plan of Treatment Upcoming Encounters Date Type Department Care Team (Late st Contact Info) Description 09/07/2024 3:00 PM EDT Routine [facility] OB [address] [place] [address] Nina Prieto, DO [address] [facility] [place] [address] Health Maintenance Due Date Last Done Comments [...] EDT 36 weeks gestation of Third trimester US OB BPP W NON-STRESS 08/27/2024 2:00 [...] dipstick manually resulted (08/31/2024 11:59 AM EDT) Only the most recent of5 resultswithin the time period is included. Color, UA Dark Shereen Clarity, UA Cloudy Glucose, UA Negative Negative - 1999(110) ++++ mg/dL Bilirubin, UA Negative Negative - 4(70) +++ mg/dL Ketones, UA Negative Negative - 160(16) ++++ mg/dL Spec Grav, UA 1.025 1 - 1.03 Blood, UA Negative Negative - 50 Mukesh/mcL pH, UA 6.5 5 - 9 Protein, UA Positive Negative - 1999(20) ++++ mg/dL Comment:30 Urobilinogen, UA 1.0 0.2 - 12 mg/dL Leukocytes, UA Negative Negative - 500+++ Shannon/mcL Nitrite, UA Negative Negative - Positive Urine 08/31/2024 11:5 9 AM EDT Karyna BENITES POINT OF CARE TEST ENTER/EDIT OR DERABLES Final Result * US OB BPP W NON-STRESS (08/27/2024 2:00 PM EDT) Only the most recent of3 resultswithin the time period is included. Anatomical Region Laterality Modality Other 08/27/2024 2:0 0 PM EDT Narrative 08/27/2024 2:02 [place] [address] Ultrasound Report Signed Patient: EDUAR STEWARD MR#: [id number] : 1990 Acct:[id number] Age/Sex: 34 / F ADM Date: 08/27/24 Loc: [facility] 250-[address]: Nina Prieto D.O. Ordering Physician: Nina Prieto D.O. Date of Service: 08/27/24 Procedure(s): US OB BPP w non-stress Accession Number(s): [id number] cc: Nina Prieto D.O.; NORBERTO BOLANOS [place] [id number] Patient Name: EDUAR STEWARD MRN: [id number] date: 1990 Sex: F Assigned Patient Location: [facility] Current Patient Location: [facility] Accession/Order Number: [id number] Exam Date: 08/27/2024 13:58 Report Date: 08/27/2024 [...] Nava M.D. 08/27/2024 2:00 PM Dictation Location: [place] [address] Electronically authenticated by: [id number] Y Date: 08/27/2024 14:00 Dictated By: Deepak Nava D.O. Signed By: 08/27/24 1402 DD/ 1400 TD/TT: Fifth Grade Teacher: Procedure Note Radiology, Radiologist, MD - 08/27/2024 [place] [address] Ultrasound Report Signed Patient: EDUAR STEWARD KMR#: [id number] : 1990Acct:[id number] Age/Sex: 34 / FADM Date: 08/27/24 Loc: [place] [address]: Nina Prieto D.O. Ordering Physician: Nina Prieto D.O. Date of Service: 08/27/24 Procedure(s): US OB BPP w non-stress Accession Number(s): [id number] cc: Nina Prieto D.O.; NORBERTO BOLANOS [place] [address] Patient Name: EDUAR SETWARD MRN: [id number] date: 1990 Sex: F Assigned Patient Location: [facility] Current Patient Location: [facility] Accession/Order Number: [id number] Exam Date: 08/27/2024 13:58 Report Date: 08/27/2024 [...] Nava M.D. 08/27/2024 2:00 PM Dictation Location: [place] [address] Electronically authenticated by: [id number] Y Date: 4:00 Dictated By: Deepak Nava D.O. Signed By:08/27/24 1402 DD/ 1400 TD/TT: Fifth Grade Teacher: us Nina Prieto DO [facility] Final Result * US OB GROWTH (08/14/2024 9:06 AM EDT) Anatomical Region Laterality Modality Other 08/14/2024 9:06 AM EDT Narrative 08/14/2024 9:09 [place] [address] Ultrasound Report Signed Patient: EDUAR STEWARD MR#: [id number] : 1990 Acct:[id number] Age/Sex: 34 / F ADM Date: 08/13/24 Loc: US Attending Dr: Nina Prieto D.O. Ordering Physician: Nina Prieto D.O. Date of Service: 08/13/24 Procedure(s): US OB growth Accession Number(s): [id number] cc: Nina Prieto D.O.; NORBERTO BOLANOS [place] [id number] Patient Name: EDUAR STEWARD MRN: [id number] date: 1990 Sex: F Assigned Patient Location: US Current Patient Location: Accession/Order Number: [id number] Exam Date: 08/14/2024 09:01 Report Date: 08/14/2024 [...] Blake M.D. 08/14/2024 9:06 AM Dictation Location: [place] [address] Electronically authenticated by: [id number] Y Date: 08/14/2024 09:06 Dictated By: Gunnar Blake M.D. Signed By: 08/14/24908 DD/ 5 TD/TT: Fifth Grade Teacher: Procedure Note Radiology, Radiologist, MD - 08/14/2024 [place] [address] Ultrasound Report Signed Patient: EDUAR STEWARD KMR#: [id number] : 1990Acct:[id number] Age/Sex: 34 / FADM Date: 08/13/24 Loc: US Attending Dr: Nina Prieto D.O. Ordering Physician: Nina Prieto D.O. Date of Service: 08/13/24 Procedure(s): US OB growth Accession Number(s): [id number] cc: Nina Prieto D.O.; NORBERTO BOLANOS [place] [id number] Patient Name: EDUAR STEWARD MRN: [id number] date: 1990 Sex: F Assigned Patient Location: US Current Patient Location: Accession/Order Number: [id number] Exam Date: 08/14/2024 09:01 Report Date: 08/14/2024 09:06 At the request of: NINA CONNER DO Procedure: US OB growth US OB [...] Blake M.D. 08/14/2024 9:06 AM Dictation Location: [place] [address] Electronically authenticated by: [id number] Y Date: 9:06 Dictated By: Gunnar Blake M.D. Signed By:08/14/24 0909 DD/ 5 TD/TT: Fifth Grade Teacher: us Nina Prieto DO [facility] Final [...] II, MD, PHD at 11-Jul-2024 11:47:38 PM [facility] Procedure Note Travis Dangelo MD - [...] signed by TRAVIS DANGELO II, MD, PHD 11:47:38 PM [facility] Karyna BENITES IMG OB US PROCEDURES Final Resul t * (ABNORMAL) GLUCOSE 1 HOUR (07/08/2024 12:02 PM EDT) GLUCOSE 1 HOUR 202(H) <130 mg/dL TBH 07/08/2024 12:0 2 PM EDT 07/08/2024 12:06 PM EDT Narrative [facility] - 07/08/2024 12:18 PM EDT Karyna BENITES LAB BLOOD ORDERABLES Final Resul t [facility] TB * (ABNORMAL) ALL CBC WITH AUTO DIFF (07/08/2024 12:02 PM EDT) Pathologist [facility] TB WBC 8.1 4.0 - 11.0 10 3/uL [facility] TB[facility] RBC 3.88(L) 4.20 - 5.40 10 6/uL [facility] HGB 11.1(L) 12.0 - 16.0 g/dL [facility] TB HCT 34.0(L) 36.0 - 48.0 % [facility] [...] 07/08/2024 12:15 PM EDT us Karyna BENITES [facility] Final Result [facility] * Right breast US complete (05/31/2024 1:26 [...] CYTOLOGY ORDERABLES Final Re sult EXTERNAL LAB from Last 3 Months or Most Recently Relevant to Health Maintenance Additional Health Concerns Active Problems Noted Date Diagnosed Date OB Reminders 03/28/2024 Insurance BCBS Care Teams Machine Whitener Relationship Specialty Start Date End Date Karen Bolanos MD [address] [place] [address] PCP - General Family Medicine 11/10/22
--- OUTSIDE RECORDS SUMMARY | 2024-08-31 21:03 | XMS_ITS | Encounter Summary ---
Author Organization [facility] Address [facility] [place] [address] Care Team Providers Care Resident Care Aide Name Role Phone Unavailable Primary Care Provider Unavailabl e Source Comments In the event this information is protected by the Federal Confidentiality of Alcohol and Drug AbusePatient Records regulations: The Federal rules restrict any use of the information to criminally investigate or prosecute any alcohol or drug abuse patient.[facility] Encounter Details Date Type Department Care Team (Latest Contact Info) Description 06/15/2023 Patient Msg Reproductive Endocrinology Infertility [address] [place] [address] Andressa Abraham APRN.ORTHOPEDIC PODIATRIST [address] [place] [address] Donor Sperm Handout Social History Tobacco Use [...] is lower risk 5 06/08/2023 Data from: https://www.neighborhoodatlas.medicine.[facility].edu/. Last address used for calculation [address] [...]
--- OUTSIDE RECORDS SUMMARY | 2024-08-31 21:03 | XMS_ITS | Encounter Summary ---
Author Organization [facility] Address [facility] [place] [address] Care Team Providers Care Center Specialists Name Role Phone Unavailable Primary Care Provider Unavailabl e Source Comments In the event this information is protected by the Federal Confidentiality of Alcohol and Drug AbusePatient Records regulations: The Federal rules restrict any use of the information to criminally investigate or prosecute any alcohol or drug abuse patient.[facility] Encounter Details Date Type Department Care Team (Late st Contact Info) Description 08/18/2023 Patient Msg Reproductive Endocrinology Infertility [address] [place] [address] Andressa Abraham APRN.DAIRY LAB TECHNICIAN [address] [place] [address] Myriad Results Social History Tobacco Use Types [...] risk 5 06/08/2023 Data from: https://www.neighborhoodatlas.medicine.[facility].edu/. Last address used for calculation [address] [...]
--- OUTSIDE RECORDS SUMMARY | 2024-08-31 21:03 | XMS_ITS | Clinical Summary ---
Author Organization [facility] Address [address] [place] [address] Phone Care Team Providers Care Registered Nurse Fetal Name Role Phone Karen Bolanos MD Primary Care Provider [phone] Social History Tobacco Use Types Packs/Day Years [...] of Treatment Not on file Care Teams Registered Nurse Fetal Relationship Specialty Start Date End Date Karen Bolanos MD [address] [place] [address] PCP - General 03/11/21
--- OUTSIDE RECORDS SUMMARY | 2024-08-31 21:03 | XMS_ITS | Encounter Summary ---
Author Organization [facility] Address [address] [place] [address] Care Team Providers Care Insurance Sales Supervisor Name Role Phone Karen Bolanos MD Primary Care Provider [phone] Encounter Details Date Type Department Care Team (Late st Contact Info) Description 08/27/2024 Clinisync Result Encounter [facility] External Department Unsolicited Nina Prieto, DO [address] [place] [address] Social History Tobacco Use Types [...] [facility] B[facility] OB [address] [place] [address] Nina Prieto, DO [address] [facility] [place] [address] documented as of this encounter Goals Goal [...] PM EDT Narrative 08/27/2024 2:02 PM EDT [place] [id number] Ultrasound Report Signed Patient: EDUAR CARPENTER MR#: [id number] : 1990 Acct:[id number] Age/Sex: 34 / F ADM Date: 08/27/24 Loc: [place] [address]: Nina Prieto D.O. Ordering Physician: Nina Prieto D.O. Date of Service: 08/27/24 Procedure(s): US OB BPP w non-stress Accession Number(s): [id number] cc: Nina Prieto D.O.; NORBERTO BOLANOS [address] [address] Patient Name: EDUAR CARPENTER MRN: [id number] date: 1990 Sex: F Assigned Patient Location: [facility] Current Patient Location: [facility] Accession/Order Number: [id number] Exam Date: 08/27/2024 13:58 Report Date: 08/27/2024 [...] Nava M.D. 08/27/2024 2:00 PM Dictation Location: [employer] Electronically authenticated by: [id number] Y Date: 08/27/2024 14:00 Dictated By: Deepak Nava D.O. Signed By: 08/27/24 1402 DD/ 99 TD/TT: Music Writer: Procedure Note Radiology, Radiologist, MD - 08/27/2024 [place] [address] Ultrasound Report Signed Patient: EDUAR CARPENTER KMR#: [id number] : 1990Acct:[id number] Age/Sex: 34 / FADM Date: 08/27/24 Loc: [facility] 250-[address]: Nina Prieto D.O. Ordering Physician: Nina Prieto D.O. Date of Service: 08/27/24 Procedure(s): US OB BPP w non-stress Accession Number(s): [id number] cc: Nina Prieto D.O.; NORBERTO BOLANOS [place] [id number] Patient Name: EDUAR CARPENTER MRN: [id number] date: 1990 Sex: F Assigned Patient Location: [facility] Current Patient Location: [facility] Accession/Order Number: [id number] Exam Date: 08/27/2024 13:58 Report Date: 08/27/2024 [...] Nava M.D. 08/27/2024 2:00 PM Dictation Location: [employer] Electronically authenticated by: [id number] Y Date: 4:00 Dictated By: Deepak Nava D.O. Signed By:08/27/24 1402 DD/ 1400 TD/TT: Music Writer: us Nina Conner DO [facility] Final Result documented in this encounter Visit Diagnoses Not on filedocumented in this encounter Additional Health Concerns Active Problems Noted Date Diagnosed Date OB Reminders 03/28/2024 documented as of this encounter Care Teams Insurance Sales Supervisor Relationship Specialty Start Date End Date Karen Bolanos MD [address] [place] [address] PCP - General Family Medicine 11/10/22 documented as of this encounter
--- OUTSIDE RECORDS SUMMARY | 2024-08-31 21:03 | XMS_ITS | Encounter Summary ---
Author Organization [facility] Address [facility] [place] [address] Care Team Providers Care Show Design Supervisor Name Role Phone Unavailable Primary Care Provider Unavailabl e Source Comments In the event this information is protected by the Federal Confidentiality of Alcohol and Drug AbusePatient Records regulations: The Federal rules restrict any use of the information to criminally investigate or prosecute any alcohol or drug abuse patient.[facility] Reason for Visit * Reason Comments Lila ordered sperm next step Encounter Details Date Type Department Care Team (Late st Contact Info) Description 11/13/2023 Telephone Reproductive Endocrinology Infertility [address] [place] [address] Andressa Abraham APRN.PUBLIC RELATIONS DIRECTOR [address] [facility] [address] [place] [address] Lila ordered sperm next step Social History [...] is lower risk 5 06/08/2023 Data from: https://www.neighborhoodatlas.medicine.[facility].edu/. Last address used for calculation [address] [...]
--- OUTSIDE RECORDS SUMMARY | 2024-08-31 21:03 | XMS_ITS | Encounter Summary ---
Author Organization [facility] Address [facility] [place] [address] Care Team Providers Care Superintendent Oil Field Drilling Name Role Phone Unavailable Primary Care Provider Unavailabl e Source Comments In the event this information is protected by the Federal Confidentiality of Alcohol and Drug AbusePatient Records regulations: The Federal rules restrict any use of the information to criminally investigate or prosecute any alcohol or drug abuse patient.[facility] Encounter Details Date Type Department Care Team (Latest Contact Info) Description 11/23/2023 Patient Msg Reproductive Endocrinology Infertility [address] [place] [address] Andressa Abraham APRN.BUSINESS CONTINUITY PLANNER [address] [place] [address] IUI Scheduling Instructions Social History Tobacco Use [...] is lower risk 5 06/08/2023 Data from: https://www.neighborhoodatlas.medicine.[facility].edu/. Last address used for calculation [address] [...]
--- OUTSIDE RECORDS SUMMARY | 2024-08-31 21:03 | XMS_ITS | Encounter Summary ---
Author Organization [facility] Address [address] [place] [address] Care Team Providers Care Snowmaker Name Role Phone Karen Bolanos MD Primary Care Provider [phone] Encounter Details Date Type Department Care Team (Late st Contact Info) Description 08/31/2024 Bamboo flowsheet [facility] BCP OB [address] [facility] [place] [phone] Karyna Craig PA [address] [facility] [facility] [address] [place], [facility] Social History Tobacco Use Types Packs/Day Years [...] PM EDT Routine [facility] BCP OB [address] [place] [place] [phone] Andrea Prieto DO [address] [facility] [address] documented as of this encounter Goals Goal Patient Goal Type Associated Problems Recent Progress Patient-Stated? Author Reminders Care Plan OB Reminders No Open Scheduling, Background documented as of this encounter Visit Diagnoses Not on filedocumented in this encounter Additional Health Concerns Active Problems Noted Date Diagnosed Date OB Reminders 03/28/2024 documented as of this encounter Care Teams Snowmaker Relationship Specialty Start Date End Date Karen Bolanos MD [address] [place] [address] PCP - General Family Medicine 11/10/22 documented as of this encounter
--- OUTSIDE RECORDS SUMMARY | 2024-08-31 21:03 | XMS_ITS | Clinical Summary ---
Author Organization [facility] Address [facility] [place] [id number] Care Team Providers Care Director Cpg Name Role Phone Unavailable Primary Care Provider [...] Care Team Description 07/20/2024 Telephone Maternal Medicine [address] [facility] [address] [place], [place] [id number] Historical 06/01/2024 11:00 AM EST Routine Office Visit Maternal Medicine [facility] [address] [place] [address] Encounter for anatomic survey (Primary Dx); Obesity [...] lower risk 5 06/08/2023 Data from: https://www.neighborhoodatlas.medicine.[facility]/. Last address used for calculation [address] [...] 6 oz EFW by: Hadlock (HC-AC-FL) Extended Chef Manager 4.7 mm CM 8.4 mm Nasal bone [...] normal LVOT view: normal 3-vessel view: normal 0-wrwulr-prpzljw view: normal Heart / Thorax Situs: situs [...] Read By: Leonid Dougherty M.D. Karin Gloria APRN.[facility] Final Re sult * HIV 1 2 COMBO(AG/AB),WITH REFLEX TO DIFFERENTIATION (07/28/2023 10:49 AM EDT) HIV 12 Combo (Ag/Ab) Nonreactive Nonreactive 07/28/2023 7:25 PM EDT [facility] HIV-1/2 AB (Confirmatory) 07/28/2023 7:25 PM EDT [facility] Comment:Test not indicated. HIV Interpretation 07/28/2023 7:25 PM EDT [facility] Comment: No evidence of HIV-1 or HIV-2 infection. Should recent infection be suspected, repeat testing may be considered 2-3 weeks after this draw. [place] Rev. Code 3701.243(E): This information has been [...] EDT 07/28/2023 10:49 AM EDT Andressa Abraham BELT MAKER.[facility] Final Result [facility] [address] [place] [address], * HEPATITIS C ANTIBODY IA WITH CONFIRMATION (07/28/2023 10:49 AM EDT) Hep C Antibody IA Negative Negative 07/28/2023 7:25 PM EDT [facility] Comment:The result suggests no evidence of active infection with Hepatitis C virus. Should recent infection be suspected, repeat testing may be considered 4-6 weeks after this draw. Blood BLOOD SPECIMEN / Unknown Venipuncture / Unknown 07/28/2023 10:49 AM EDT 07/28/2023 10:49 AM EDT us Andressa Abraham BELT MAKER.[facility] Final Result Performing Organization Address City/[facility]/ZIP Co de Phone Number [facility] [address] [facility] [address] [place] [address], [place] * PAP FLUID CERVICAL DIAGNOSTIC (03/18/2013 11:34 AM EST) Pathologist [facility] Gambreler Helper [facility] DEPARTMENT OF PATHOLOGY CYTOLOGY REPORT [id number] Submitting Physician: Jacqui Villa MD Procedure Date: [...] from every slide are reviewed by a installer helper. TRAVIS Zuniga(ASCP) Filling And Stapling Machine Operator Electronic Signature CLINICAL HISTORY DYSPLASIA [facility] 03/18/2013 11:3 4 AM EST 03/21/2013 9:19 AM EST Jacqui Villa MD CYTOLOGY Final Result Performing Organization Address City/[facility]/ZIP Co de Phone Number [facility] [address] [place] [phone] from Last 3 Months or Most Recently Relevant to Health Maintenance Insurance BLUE CARD PPO OOS
--- OUTSIDE RECORDS SUMMARY | 2024-08-31 21:03 | XMS_ITS | Encounter Summary ---
Author Organization [facility] Address [address] [place] [address] Care Team Providers Care Completions Engineer Name Role Phone Karen Bolanos MD Primary Care Provider [phone] Karen Bolanos MD Unavailable Encounter Details Date Type Department Care Team (Late st Contact Info) Description 11/10/2022 Abstract [facility] [address] [place] [address] Karen Bolanos MD [address] [place] [address] Social History Tobacco Use Types Packs/Day Years [...] Department Care Team (Late Contact Info) Description 09/07/2024 3:00 PM EDT Routine [facility] OB [address] [place] [address] Andrea Prieto, [address] [place] [address] documented as of this encounter Visit Diagnoses Not on filedocumented in this encounter Care Teams Completions Engineer Relationship Specialty Start Date End Date Karen Bolanos MD [address] [place] [address] PCP - General Family Medicine 11/10/22 Karen Bolanos MD [address] [place] [address] PCP - Nish Commercial 12/28/22 5 documented as of this encounter
--- OUTSIDE RECORDS SUMMARY | 2024-08-31 21:03 | XMS_ITS | Encounter Summary ---
Author Organization [facility] Address [facility] [place] [address] Care Team Providers Care Counseling Director Name Role Phone Unavailable Primary Care Provider Unavailabl e Source Comments In the event this information is protected by the Federal Confidentiality of Alcohol and Drug AbusePatient Records regulations: The Federal rules restrict any use of the information to criminally investigate or prosecute any alcohol or drug abuse patient.[facility] Reason for Visit * Reason Comments Can they order the donor sperm samples pauline pt rt call Encounter Details Date Type Department Care Team (Late st Contact Info) Description 10/29/2023 Telephone Reproductive Endocrinology Infertility [address] [place] [address] Andressa Abraham APRN.TELEPRINTER INSTALLER [address] [facility] [address] [place] [address] Can they order the donor sperm samples; [...] is lower risk 5 06/08/2023 Data from: https://www.neighborhoodatlas.medicine.[facility]/. Last address used for calculation [address] [...]
--- OUTSIDE RECORDS SUMMARY | 2024-08-31 21:04 | XMS_ITS | CCD ---
Author Organization [facility] Care Team Providers Care Aerospace Technician Name Role Phone BACEVICE, CHARLIE E Unavailable [...] Consulting Unavailable Karen Bolanos Primary Care Physician [phone] Unavailable Primary Care Provider Unavailjulio cesar e Unavailable Primary Care Provider UnavailTIARRA Jimenez Attending Unavailable TIARRA KATZ Admitting Unavailable TIARRA KATZ Attending Unavailable TIARRA KATZ Attending Unavailable Karen Bolanos MD Primary Care Provider Karen Bolanos MD Unavailable [phone] Karen Bolanos MD Primary Care Provider JARAD, [...] Refills(s) 0, Pharmacy: [id number], 158, cm, 02/28/24 9:01:00 EST, Height/Length Dosing, [...] Glucose Monitoring Suppl (D-Care Glucometer) w/Device kit (12 sources) Start: 07-13-19 End: 07-13-19 Blood Glucose Monitoring Suppl (D-MashMe.TV Glucometer) w/Device kit Indications: Gestational diabetes mellitus [...] oral solution (1 source) alpha-Adrenergic Agonist, Uncompetitive C-vqjmya-L-aspartate Receptor Antagonist, Sigma-1 Agonist Start: 03-11-20 End: 03-20-20 take 5 mL by mouth every four to six hours brompheniramine/pse udoephedrine/dextro methorphan 2yd-69nd-84ve/5 mL oral syrup ; 5 milliliter(s) orally [...] doctor. isopropyl alcohol 0.7 ml/ml medicated pad (12 sources) Start: 07-12-2024 Alcohol Swabs (Alcohol Prep [...] omeprazole 20 mg delayed release oral capsule (5 sources) Proton Pump Inhibitor Start: 08-24-19 End: 09-24-19 take 1 capsule by mouth before mealtime omeprazole (PriLOSEC) [address] capsule Indications: Gastroesophageal Reflux Disease , Heartburn Take 1 capsule (20 mg) by mouth in the morning. Take before meals. Do not crush or chew. 30 capsule 3 08/24/2024 09/23/2024 Active vit/iron fum/folic ac ( 1 + 1 [...] 0 Start Date: 05/29/12 Status: Ordered levonorgestrel 0.012280 mg/hr intrauterine system (14 sources) Progestin, Progestin-containi [...] Test Name Value Interpretation Reference Range Facility OB BPP W NON-STRESS on 08-27-2024 [place] [address] Ultrasound Report Signed Patient: NELLI CARPENTER MR#: [id number] : 1990 Acct:[id number] Age/Sex: 34 / F ADM Date: 08/27/24 Loc: [facility] 250-[address]: Andrea Prieto D.O. Ordering Physician: Andrea Prieto D.O. Date of Service: 08/27/24 Procedure(s): US OB BPP w non-stress Accession Number(s): [id number] cc: Andrea Prieto D.O.; NORBERTO BOLANOS [place] [id number] Patient Name: NELLI CARPENTER MRN: [facility]:[id number] date: 1990 Sex: F Assigned Patient Location: [facility] Current Patient Location: [facility] Accession/Order Number: [id number] Exam Date: 08/27/2024 13:58 Report Date: 08/27/2024 14:00 At the request of: ANDREA PRIETO DO [...] Nava M.D. 08/27/2024 2:00 PM Dictation [facility] Electronically authenticated by: [id number] Y Date: 08/27/2024 14:00 Dictated By: Deepak Nava D.O. Signed By: 08/27/24 1402 DD/ 1400 TD/TT: Clean Out Driller: Tai Moyaogsharla summers MD - 08/27/2024 [place] [address] Ultrasound Report Signed Patient: NELLI CARPENTER MR#: [id number] : 1990 Acct:[id number] Age/Sex: 34 / F ADM Date: 08/27/24 Loc: [facility] 250-[address]: Andrea Prieto D.O. Ordering Physician: Andrea Prieto D.O. Date of Service: 08/27/24 Procedure(s): US OB BPP w non-stress Accession Number(s): [id number] cc: Andrea Prieto D.O.; NORBERTO BOLANOS The [address] [address] Patient Name: NELLI CARPENTER MRN: [facility]:[id number] date: 1990 Sex: F Assigned Patient Location: [facility] Current Patient Location: [facility] Accession/Order Number: [id number] Exam Date: 08/27/2024 13:58 Report Date: 08/27/2024 14:00 At the request of: ANDREA PRIETO DO [...] Possible nuchal cord. Impression dictated by: Deepak Naav M.D. 08/27/2024 2:00 PM Dictation Location: [place] [address] Electronically authenticated by: [id number] Y Date: 08/27/2024 14:00 Dictated By: Deepak Nava D.O. Signed By: 08/27/24 1402 DD/ 1400 TD/TT: Clean Out Driller: [facility] Radiology Study observation (narrative) [facility] US OB BPP W NON-STRESS Ordered By: Radiologist Radiology on 08-27-2024 [facility] Work Phone: Urinalysis macro (dipstick) panel (U)on 08-23-2024 Bilirubin, UA Negative Negative - 4(70) +++ mg/dL [facility] Blood, UA Negative Negative - 50 Mukesh/mcL [facility] Clarity, UA Clear [facility] Color, UA Yellow [facility] Glucose, UA Negative Negative - 1999(110) ++++ mg/dL [facility] Interpretation and review of laboratory results Abnormal [facility] Ketones, UA Negative Negative - 160(16) ++++ mg/dL [facility] Leukocytes, UA Trace Negative - 500+++ Shannon/mcL [facility] Nitrite, UA Negative Negative - Positive [facility] pH, UA 7 5 - 9 [facility] Protein, UA Negative Negative - 1999(20) ++++ mg/dL [facility] Spec Grav, UA 1.015 1 - 1.03 [facility] Urobilinogen, UA 0.2 0.2 - 12 mg/dL [facility] US OB BPP W NON-STRESS on 08-14-[address] [address] Ultrasound Report Signed Patient: NELLI CARPENTER MR#: [id number] : 1990 Acct:[id number] Age/Sex: 34 / F ADM Date: 08/13/24 Loc: US Attending Dr: Andrea Prieto D.O. Ordering Physician: Andrea Prieto D.O. Date of Service: 08/13/24 Procedure(s): US OB BPP w non-stress Accession Number(s): [id number] cc: Andrea Prieto D.O.; NORBERTO BOLANOS [place] [id number] Patient Name: NELLI CARPENTER MRN: [id number] date: 1990 Sex: F Assigned Patient Location: US Current Patient Location: Accession/Order Number: [id number] Exam Date: 08/14/2024 08:54 Report Date: 08/14/2024 [...] Blake M.D. 08/14/2024 9:01 AM Dictation [facility] Electronically authenticated by: [id number] Y Date: 08/14/2024 09:01 Dictated By: Gunnar Blake M.D. Signed By: 08/14/24903 DD/ 0 TD/TT: Clean Out Driller: [facility] Radiology Radiologsharla summers MD - 08/14/2024 [place] [address] Ultrasound Report Signed Patient: NELLI CARPENTER MR#: [id number] : 1990 Acct:[id number] Age/Sex: 34 / F ADM Date: 08/13/24 Loc: US Attending Dr: Andrea Prieto D.O. Ordering Physician: Andrea Prieto D.O. Date of Service: 08/13/24 Procedure(s): US OB BPP w non-stress Accession Number(s): [id number] cc: Andrea Prieto D.O.; NORBERTO BOLANOS [place] [address] Patient Name: NELLI CARPENTER MRN: [facility]:[id number] date: 1990 Sex: F Assigned Patient Location: Current Patient Location: Accession/Order Number: [id number] Exam Date: 08/14/2024 08:54 Report Date: 08/14/2024 [...] Blake M.D. 08/14/2024 9:01 AM Dictation Location: [facility] ZhaopinLA[facility] HOSPITALMango [facility] Electronically authenticated by: [id number] Y Date: 08/14/2024 09:01 Dictated By: Gunnar Blake M.D. Signed By: 08/14/24903 DD/ 0 TD/TT: Clean Out Driller: [facility] Radiology Study observation (narrative) [facility] US OB BPP W NON-STRESS Ordered By: Radiologist Radiology on 08-14-2024 [facility] [employer] Work Phone: US OB GROWTHon 08-14-2024 [place] [address] Ultrasound Report Signed Patient: NELLI CARPENTER MR#: [id number] : 1990 Acct:[id number] Age/Sex: 34 / F ADM Date: 08/13/24 Loc: US Attending Dr: Andrea Prieto D.O. Ordering Physician: Andrea Prieto D.O. Date of Service: 08/13/24 Procedure(s): US OB growth Accession Number(s): [id number] cc: Andrea Prieto D.O.; NORBERTO BOLANOS [place] [address] Patient Name: NELLI CARPENTER MRN: [facility]:[id number] date: 1990 Sex: F Assigned Patient Location: Current Patient Location: Accession/Order Number: [id number] Exam Date: 08/14/2024 09:01 Report Date: 08/14/2024 [...] Blake M.D. 08/14/2024 9:06 AM Dictation Location: [place] [address] Electronically authenticated by: [id number] Y Date: 08/14/2024 09:06 Dictated By: Gunnar Blake M.D. Signed By: 08/14/24908 DD/ 5 TD/TT: Clean Out Driller: [facility] Radiology, Radiologi MD melina - 08/14/2024 [place] [address] Ultrasound Report Signed Patient: NELLI CARPENTER MR#: [id number] : 1990 Acct:[id number] Age/Sex: 34 / F ADM Date: 08/13/24 Loc: US Attending Dr: Andrea Prieto D.O. Ordering Physician: Andrea Prieto D.O. Date of Service: 08/13/24 Procedure(s): US OB growth Accession Number(s): [id number] cc: Andrea Prieto D.O.; NORBERTO BOLANOS [place] [address] Patient Name: NELLI CARPENTER MRN: [facility]:[id number] date: 1990 Sex: F Assigned Patient Location: US Current Patient Location: Accession/Order Number: [id number] Exam Date: 08/14/2024 09:01 Report Date: 08/14/2024 [...] Blake M.D. 08/14/2024 9:06 AM Dictation Location: [place] [address] Electronically authenticated by: [id number] Y Date: 08/14/2024 09:06 Dictated By: Gunnar Blake M.D. Signed By: 08/14/24 0909 DD/ 5 TD/TT: Clean Out Driller: [facility] Radiology Study observation (narrative) [facility] OB GROWTHOrdered By: Susan ordonezogblanca Radiology on 08-14-2024 [facility] Work Phone: Urinalysis macro (dipstick) panel (U)on 08-08-2024 Bilirubin, UA Negative Negative - 4(70) +++ mg/dL [facility] Blood, UA Negative Negative - 50 Mukesh/mcL [facility] Clarity, UA Clear [facility] Color, UA Yellow [facility] Glucose, UA Negative Negative - 1999(110) ++++ mg/dL [facility] Interpretation and review of laboratory results Normal [facility] Ketones, UA Negative Negative - 160(16) ++++ mg/dL [facility] Leukocytes, UA Negative Negative - 500+++ Shannon/mcL [facility] Nitrite, UA Negative Negative - Positive [facility] pH, UA 7 5 - 9 [facility] Protein, UA Negative Negative - 2000(20) ++++ mg/dL [facility] Spec Grav, UA 1.02 1 - 1.03 [facility] Urobilinogen, UA 0.2 0.2 - 12 mg/dL [facility] Urinalysis macro (dipstick) panel (U)on 07-25-2024 Bilirubin, UA Negative Negative - 4(70) +++ mg/dL [facility] Blood, UA Negative Negative - 50 Mukesh/mcL [facility] Clarity, UA Clear [facility] Color, UA Yellow [facility] Glucose, UA Negative Negative - 1999(110) ++++ mg/dL [facility] Interpretation and review of laboratory results Abnormal [facility] Ketones, UA Negative Negative - 160(16) ++++ mg/dL [facility] Leukocytes, UA Negative Negative - 500+++ Shannon/mcL [facility] Nitrite, UA Negative Negative - Positive [facility] pH, UA 6.5 5 - 9 [facility] Protein, UA Negative Negative - 1999(20) ++++ mg/dL [facility] Spec Grav, UA 1.015 1 - 1.03 [facility] Urobilinogen, UA 1.0 0.2 - 12 mg/dL [facility] CNPNon 07-20-2024 CNP Telephone ([id number]) NELLI CARPENTER ([id number]) 1990 F Date Time Provider Department 07/20/24 HISTORICAL [id number] During your visit today, we recorded the following information about you: Jessy Lilly RN 07/20/2024 1:19 PM Signed Received outside referral from Dr. Prieto for GDM consult due to elevated 1 hour glucose 202. Called pt. To schedule appointment no answer, left message with call back phone number. BALJINDER Zaman Laura Lee 07/25/2024 11:57 AM Signed Nelli Carpenter called today. Caller's (home) [phone] (cell) Reason for call: Pt calling nurse back to be scheduled for GDM consult due to elevated 1 hour glucose 202. Jessy Zamora, RN 08/04/2024 3:24 PM Addendum Outside referral received from Dr. Prieto for elevated 1 hour glucose 202. Pt. Has all testing supplies and has been checking BS periodically. Advised pt. To start checking 4 times daily and upload to [employer] [facility]. Will send wound care nurse. Other med hx: asthma, placenta previa with previous OB History Gravida4 Para2 Term2 Preterm0 AB1 Living2 SAB1 IAB0 Ectopic0 Multiple0 Live Births2 2014- , vag MAB 2017- FT, c-sec placenta previa Current meds: PNV Last growth US 07/11, pt. Advised to schedule growth US every 4 weeks. Pt. Scheduled for [facility] GDM class on 08/[address] Quintanilla. Jessy Lilly RN Records sent to medical records, and also available in [address]. Allergies As of Date: 07/20/2024 (No Known Allergies) Date Reviewed: 01/20/2024 Reviewed by: Andressa Abraham APRN.FRONT TENDER - Fully Assessed Prescriptions as of 08/04/2024 - vit/iron fum/folic ac ( 1 + 1 ORAL) Take by mouth. - mv-min/iron/folic/calci um/vitK (WOMEN'S MULTIVITAMIN ORAL) Take by mouth. Problem List As Of Date 07/20/2024 Noted Resolved Complete placenta previa with hemorrhage, third*12/09/2016 06/01/2024 Encounter Status:Closed by JESSY LILLY on 07/20/24 Normal [facility] ALL CBC WITH AUTO DIFFon BASOPHILS ABSOLUTE AUTO 0 [facility] Healthcare Basophils/100 WBC (Bld) 0.2 % 0.2 - 2.0 % [facility] Eosinophils/100 WBC (Bld) 0.6 % Low 0.9 - 7.0 % [facility] Erythrocyte distribution width (RBC) [Ratio] 13.2 % 11.0 - 15.0 % [facility] Hematocrit (Bld) [Volume fraction] 34 % Low 36.0 - 48.0 % [facility] Hemoglobin (Bld) [Mass/Vol] 11.1 g/dL Low 12.0 - 16.0 g/dL [facility] IMMATURE GRANULOCYTES ABS AUTO 0.15 High [facility] Immature granulocytes/100 WBC (Bld) 1.9 % High 0.0 - 0.5 % [facility] Interpretation and review of laboratory results Abnormal [facility] LYMPHOCYTES ABSOLUTE AUTO 1.5 [facility] Lymphocytes/100 WBC (Bld) 18.9 % Low 20.5 - 60.0 % [facility] MCH (RBC) [Entitic mass] 28.6 pg 26.7 - 34.0 pg [facility] MCHC (RBC) [Mass/Vol] 32.6 g/dL 29.9 - 35.2 g/dL [facility] MCV (RBC) [Entitic vol] 87.6 fL 81.0 - 99.0 fL [facility] MONOCYTES ABSOLUTE AUTO 0.4 [facility] Monocytes/100 WBC (Bld) 5.3 % 1.7 - 12.0 % [facility] NEUTROPHILS ABSOLUTE AUTO 5.9 [facility] Neutrophils/100 WBC (Bld) 73.1 % 43.0 - 75.0 % [facility] Platelet mean volume (Bld) [Entitic vol] 10.9 fL 9.5 - 13.5 fL [facility] TBH EO # 0.1 [facility] PLT 218 [facility] RBC 3.88 Low [facility] WBC 8.1 [facility] Urinalysis macro (dipstick) panel (U)on 06-27-2024 Bilirubin, UA Negative Negative - 4(70) +++ mg/dL [facility] Blood, UA Negative Negative - 50 Mukesh/mcL [facility] Clarity, UA Clear [facility] Color, UA Light Yellow [facility] Glucose, UA Negative Negative - 1999(110) ++++ mg/dL [facility] Interpretation and review of laboratory results Normal [facility] Ketones, UA Negative Negative - 160(16) ++++ mg/dL [facility] Leukocytes, UA Negative Negative - 500+++ Shannon/mcL [facility] Nitrite, UA Negative Negative - Positive [facility] Comment on above: ` pH, UA 6 5 - 9 [facility] Protein, UA Negative Negative - 1999(20) ++++ mg/dL [facility] Spec Grav, UA 1.025 1 - 1.03 [facility] Urobilinogen, UA 1.0 0.2 - 12 mg/dL [facility] US OB FOLLOW UP TRANSABDOMIN AL APPROACHon [...] II, MD, PHD at 11-Jul-2024 11:47:38 PM [facility] Normal Not Available Comment on above: [...] 6 oz EFW by: Hadlock (HC-AC-FL) Extended Inspector Final Assembly Conveyor Line 4.7 mm CM 8.4 mm Nasal bone [...] normal LVOT view: normal 3-vessel view: normal 3-njyeuu-agtjezl view: normal Heart / Thorax Situs: situs [...] Read By: Leonid Myers M.D. MATERNAL MEDICINE [facility] Radiology Study observation (narrative) [facility] US BREAST COMPLETE RIGHTo n [...] GDLNon AGE GDLN ACOG TESTING Note . [facility] Comment on above: TESTS RESULT FLAG U NITS REF RANGE LAB Clinician Provided Cytology Information Source.............Cervix Other.............. No. of containers..01 ThinPrep Vial Age Algo ACOG Akua... FLAG LEGEND: L-Low Normal,H-High Normal,LL-Alert Low,HH-Alert High <-Panic Low,>-Panic High,A-Abnormal,AA-Critical Abnormal Performed at: 01 =G [address] [address] Maribel Martin MD, HPV APTIMA Negative Negative [facility] Comment on above: This nucleic acid am plification test detects fourteen high- risk HPV types (16,18,31,33,35,39,45,51,52,56,58,59,66,68) without differentiation. Performed at: =[address] [id number] Last Trimmer: Maribel Martin MD, Phone: [phone] Performed at: [address] [id number] Last Trimmer: Maribel Martin MD, Phone: [phone] IGP, APTIMA HPV, RFX 16/18,45 Note . [facility] Comment on above: TESTS RESULT FLAG UN ITS REF RANGE LAB DIAGNOSIS: 02 NEGATIVE FOR INTRAEPITHELIAL LESION OR MALIGNANCY. Specimen adequacy: 02 Satisfactory for evaluation. No endocervical component is identified. An endocervical component is not commonly seen in the patient. Performed by: 02 Salud Hui Wire Twister (ASCP) . 02 Note: Note 02 The [...] Low,>-Panic High,A-Abnormal,AA-Critical Abnormal Performed at: 02 [address] [facility] [address] [address] Maribel Martin MD, SPATULA-ALONE CERVIX [facility] RECURRENT VAGINITIS (HTRX)on 04-20-2024 ATOPOBIUM VAGINAE 0 [facility] ATOPOBIUM VAGINAE Not detected [facility] BVAB 2,3 (BACTERIAL VAGINOSIS ASSOCIATED BACTERIA 2, 3); MOBILUNCUS SPP 0 [facility] BVAB 2,3 (BACTERIAL VAGINOSIS ASSOCIATED BACTERIA 2, 3); MOBILUNCUS SPP Not detected [facility] JOELLE ALBICANS, PARAPSILOSIS, TROPICALIS 0 [facility] JOELLE ALBICANS, PARAPSILOSIS, TROPICALIS Not detected [facility] JOELLE GLABRATA 0 [facility] JOELLE GLABRATA Not detected [facility] JOELLE KRUSEI 0 [facility] JOLELE KRUSEI Not detected [facility] CHLAMYDIA TRACHOMATIS 0 [facility] CHLAMYDIA TRACHOMATIS Not detected [facility] GARDNERELLA VAGINALIS 0 [facility] GARDNERELLA VAGINALIS Not detected [facility] MEGASPHAERA (TYPES 1, 2) 0 [facility] MEGASPHAERA (TYPES 1, 2) Not detected [facility] MYCOPLASMA GENITALIUM 0 [facility] MYCOPLASMA GENITALIUM Not detected [facility] NEISSERIA GONORRHOEAE 0 [facility] NEISSERIA GONORRHOEAE Not detected [facility] TRICHOMONAS VAGINALIS 0 [facility] TRICHOMONAS VAGINALIS Not detected [facility] Urinalysis macro (dipstick) panel (U)on 04-19-2024 Bilirubin, UA Negative Negative - 4(70) +++ mg/dL [facility] Blood, UA Negative Negative - 50 Mukesh/mcL [facility] Clarity, UA Clear [facility] Color, UA Yellow [facility] Glucose, UA Negative Negative - 1999(110) ++++ mg/dL [facility] Interpretation and review of laboratory results Normal [facility] Ketones, UA Negative Negative - 160(16) ++++ mg/dL [facility] Leukocytes, UA Negative Negative - 500+++ Shannon/mcL [facility] Nitrite, UA Negative Negative - Positive [facility] pH, UA 7.5 5 - 9 [facility] Protein, UA Negative Negative - 1999(20) ++++ mg/dL [facility] Spec Grav, UA 1.015 1 - 1.03 [facility] Urobilinogen, UA 0.2 0.2 - 12 mg/dL [facility] ALL CBC WITH AUTO DIFFon BASOPHILS ABSOLUTE AUTO 0 [facility] Basophils/100 WBC (Bld) 0.4 % 0.2 - 2.0 % [facility] Eosinophils/100 WBC (Bld) 0.9 % 0.9 - 7.0 % [facility] Erythrocyte distribution width (RBC) [Ratio] 13.1 % 11.0 - 15.0 % [facility] Hematocrit (Bld) [Volume fraction] 36.9 % 36.0 - 48.0 % [facility] Hemoglobin (Bld) [Mass/Vol] 12.3 g/dL 12.0 - 16.0 g/dL [facility] IMMATURE GRANULOCYTES ABS AUTO 0.07 High [facility] Immature granulocytes/100 WBC (Bld) 1 % High 0.0 - 0.5 % [facility] Interpretation and review of laboratory results Abnormal [facility] LYMPHOCYTES ABSOLUTE AUTO 1.8 [facility] Lymphocytes/100 WBC (Bld) 25.9 % 20.5 - 60.0 % [facility] MCH (RBC) [Entitic mass] 29.9 pg 26.7 - 34.0 pg [facility] MCHC (RBC) [Mass/Vol] 33.3 g/dL 29.9 - 35.2 g/dL [facility] MCV (RBC) [Entitic vol] 89.6 fL 81.0 - 99.0 fL [facility] MONOCYTES ABSOLUTE AUTO 0.5 [facility] Monocytes/100 WBC (Bld) 6.4 % 1.7 - 12.0 % [facility] NEUTROPHILS ABSOLUTE AUTO 4.6 [facility] Neutrophils/100 WBC (Bld) 65.4 % 43.0 - 75.0 % [facility] Platelet mean volume (Bld) [Entitic vol] 12 fL 9.5 - 13.5 fL [facility] TBH EO # 0.1 [facility] PLT 169 [facility] RBC 4.12 Low [facility] WBC 7 [facility] HCG ( test) Ql (U)o n 03-11-2024 Interpretation and review of laboratory results Abnormal [facility] Preg Test, Ur Positive Negative [facility] Urinalysis macro (dipstick) panel (U)on 03-11-2024 Bilirubin, UA Negative Negative - 4(70) +++ mg/dL [facility] Blood, UA Negative Negative - 50 Mukesh/mcL [facility] Clarity, UA Clear [facility] [facility] Color, UA Yellow [facility] Glucose, UA Negative Negative - 2000(110) ++++ mg/dL [facility] Interpretation and review of laboratory results Normal [facility] Ketones, UA Negative Negative - 160(16) ++++ mg/dL [facility] Leukocytes, UA Negative Negative - 500+++ Shannon/mcL [facility] Nitrite, UA Negative Negative - Positive [facility] pH, UA 7 5 - 9 [facility] Protein, UA Negative Negative - 1999(20) ++++ mg/dL [facility] Spec Grav, UA 1.02 1 - 1.03 [facility] Urobilinogen, UA 0.2 0.2 - 12 mg/dL [facility] Ambulatory Visit Summaryon 1 04-30-2023 Ambulatory Visit [...] with effusion Duration: 10 Days Pickup at [facility][id number] Pharmacy Information [facility][id number]: [address] [place], [place] [id number] [phone] Allergies No Known Allergies Problems Ongoing - [...] for choosing us for your care. Normal [place] [facility] Family Medicine Office/Clini c Noteon 02-28-2024 Family Medicine Office/Clinic Note Family Medicine Office/Clinic Note Chief Complaint ear pain, cough, sore throat HPI Staff 33 year old female presents with bilateral ear pain- right is worse, cough, sore throat, mild head pressure, congestion symptoms began yesterday pt it 10 weeks History of Present Illness Reviewed and agree with above documented HPI by medical insurance claims specialist. Portions of this record may have been created with voice recognition artificial intelligence software, specifically [employer], [employer] and or [employer]. Substitutions may have occurred due to the inherent limitations of voice recognition and artificial intelligence software. Patient is a 33-year-old female who presents to critical access hospital care, for right ear pain, sinus [...] at this time. 33-year-old female presented to critical access hospital care, for right otitis media effusion, [...] for amoxicillin, instructed she can only take mpbx-iwe-lqqtqpn Tylenol for body aches, headaches, and fevers since she is . Given a work excuse note. Follow-up with primary care provider as needed. 1. Right otitis media with effusion (H65.91: Unspecified nonsuppurative otitis media, right ear) See above Ordered: amoxicillin, 960 mg = 12 mL, Oral, q12hr, X 10 day(s), # 240 mL, Refills(s) 0, Pharmacy: [facility] #[id number], 158, cm, 02/28/24 9:01:00 EST, Height/Length Dosing, [...] weight management wi (more content not included)... [facility] Comment on above: Result Comment: Elec tronically Signed By: MADALYN LOZADA, TIARRA\.br\Date and Time Signed: 02/28/24 09:58 EST Patient Letter FTon 2023 Patient Letter [facility] Patient Letter [facility] [address] [place] [address] February 28, 2024 NELLI CARPENTER [address] [place] [phone] : 1990 Please excuse NELLI CARPENTER from work . Date and/or Time of Absence: From: 02/29/24 May return to work on: 03/01/24 Restrictions: None Comments: Please excuse due to an acute illness. Provider Signature: Tiarra Katz PA-C [address] [place] [address] [place] [address] [facility] CNNURSEon 02-09-2024 CNNURSE Nurse Visit (REIAV) NELLI CARPENTER ([id number]) 1990 F Date Time Provider Department 02/09/24 10:30 AM NURSE SARMAD [facility] REJ REIAV During your visit today, we recorded the following information about you: Parth Clark MD 02/09/2024 11:28 AM Signed Scan Visit Patient here for scan. See imaging documentation. MD Diego Bajwa Lauren, DESIGN PAINTER.FRONT TENDER 02/09/2024 12:28 PM Signed Nelli Carpenter here [...] 2024 12:27 PM Referring Provider: ANDRESSA ABRAHAM [[id number]] Allergies As of Date: 02/09/2024 (No Known Allergies) Date Reviewed: 01/20/2024 Reviewed by: Andressa Abraham APRN.CNP - Fully Assessed Visit Diagnosis: resulting from assisted reproductive technology in first trimester [O09.811] Order(s):OBSTETRIC ULTRASOUND [facility] [[id number]] Order #: [id number]. #:[id number] WPOINTQty: 1 Prescriptions as of 02/09/2024 - vit/iron fum/folic ac ( 1 + 1 ORAL) Take by mouth. - mv-min/iron/folic/calci um/vitK (WOMEN'S MULTIVITAMIN ORAL) Take by mouth. Problem List As Of Date: 02/09/2024 (None) Encounter Status:Closed by PARTH CLARK on 02/09/24 Normal [facility] Examination level ultrasound on 02-09-2024 Indication Viability; IUI done on 01-02-24; obesity >30 Impression - Single, live, intrauterine . - An intrauterine gestational sac with a yolk sac and pole is present. - [place] rump length measurement is consistent with [...] Read By: Parth Clark M.D. MATERNAL MEDICINE [facility] Radiology Study observation (narrative) [facility] B-HCG SerPl-aCncon 4 HCG.beta subunit Qn 2270.0 m[IU]/mL High <5.0 [facility] Comment on above: Order Comment: Speci men Type: BLOOD SPECIMENOrdering Facility: [facility] Address: [address] [place] [address] Result Comment: NOBLE TITATIVE HCG NORMAL RANGES Weeks of Gestation (Weeks Since LMP) 3 Weeks (5.8-71.2 mIU/mL) 4 Weeks (9.5-750 mIU/mL) 5 Weeks (217-7138 mIU/mL) 6 Weeks (158-73961 mIU/mL) 7 Weeks (3697-748959 mIU/mL) 8 Weeks (61825-267067 mIU/mL) 9 Weeks (98794-759167 mIU/mL) 10 Weeks (34820-620435 mIU/mL) 12 Weeks (92657-100028 mIU/mL) [facility] Performed By: #### 2 1198-7 ####[facility] LABIA [id number] [place] [address] [place] B-HCG [facility] 4 HCG.beta subunit Qn 792.1 m[IU]/mL High <5.0 [facility] Comment on above: Order Comment: Speci men Type: BLOOD SPECIMENOrdering Facility: [facility] Address: [address] [place] [address] Result Comment: NOBLE TITATIVE HCG NORMAL RANGES Weeks of Gestation (Weeks Since LMP) 3 Weeks (5.8-71.2 mIU/mL) 4 Weeks (9.5-750 mIU/mL) 5 Weeks (217-7138 mIU/mL) 6 Weeks (158-42723 mIU/mL) 7 Weeks (3697-552982 mIU/mL) 8 Weeks (84624-158384 mIU/mL) 9 Weeks (46766-811638 mIU/mL) 10 Weeks (48334-610401 mIU/mL) 12 Weeks (51125-775966 mIU/mL) Referenced to 4th IS of [facility] Performed By: #### 2 1198-7 ####[facility] LABCLIA [id number] [place] [address] [place] CNPNon 01-18-2024 CNPN Telephone (REIBD) NELLI CARPENTER ([id number]) 1990 F Date Time Provider Department 01/18/24 [...] Date Reviewed: 11/23/2023 Reviewed by: Andressa Abraham APRN.FRONT TENDER - Fully Assessed Reason for Visit: +hpt 01/15 after an iui [Other] Primary Visit Diagnosis:Encounter for test, result positive [Z32.01] Order(s):HCG QUANTITATIVE [SQHCGQT] Order #: [id number] STANDING Prescriptions as of 01/18/2024 - vit/iron [...] Encounter Status:Closed by JESSI YOO on 01/18/24 [facility] CNOVon 01-02-2024 CNOV Office Visit (REIBD) NELLI CARPENTER ([id number]) 1990 F Date Time Provider Department 01/02/24 [...] Cycle Day: 15 Last menstrual period: 12/19/2023 [place] Protocol: UNIVERSAL PROTOCOL / SAFETY CHECKLIST Procedure [...] discussed with the Patient or Patient's Authorized Jewel Setter. As applicable, any other physician, advance practice provider, medical student, or other health professional student that will be observing or involved in the sensitive examination for educational or training purposes was discussed with the Patient or Authorized Jewel Setter. The Patient or Authorized Jewel Setter has agreed to proceed with the sensitive examination. (Sensitive examination includes inspection and/or palpation of the breasts, pelvis, prostate and anorectal regions) Patient declined svp research and strategic analysis. IUI IUI Date: 01/02/24 Partner's Name: Wanda [...] Anyi Gant M.D. Reproductive Endocrinology and Infertility JamesFlavia bush 01/02/2024 11:46 AM Signed IUI Xytex #: [id number] Washed frozen specimen Post: 122 m/ml, 63% Insem#: 34.7 million Referring Provider: ANDRESSA ABRAHAM [[id number]] Allergies As of Date: 01/02/2024 (No Known Allergies) Date Reviewed: 11/23/2023 Reviewed by: Andressa Abraham APRN.FRONT TENDER - Fully Assessed Primary Visit Diagnosis:Encounter for [...] Encounter Status:Closed by ANYI GANT on 01/02/24 [facility] NELLI CARPENTER ([id number]) 1990 F Date Time Provider Department 01/02/24 10:30 AM ANDROLOGY DIRECTOR STRATEGIC PLANNING [facility] During your visit today, we recorded the following information about you: Flavia Elizondo 01/02/2024 11:47 AM Signed Thaw for IUI Flavia Elizondo Referring Provider: ANDRESSA ABRAAHM [[id number]] Allergies As of Date: 01/02/2024 (No Known Allergies) Date Reviewed: 11/23/2023 Reviewed by: Andressa Abraham APRN.FRONT TENDER - Fully Assessed Primary Visit Diagnosis:Procreative management [...] Encounter Status:Closed by FLAVIA ELIZONDO on 01/02/24 [facility] CNOVon 12-05-2023 CNOV Office Visit (REIBD) NELLI CARPENTER ([id number]) 1990 F Date Time Provider Department 12/05/23 10:00 AM MYRIAM DOMINGUEZ REPEDRO During your visit today, we recorded the following information about you: Stephanie Lara 12/06/2023 8:45 AM Signed IUI specimen released to provider Stephanie Lara December 05, 2023 10:19 AM Uma Aguilera MD 12/05/2023 10:32 AM Addendum [facility]I [facility] IUI PROCEDURE NOTE Date: 12/05/2023 Primary Proceduralist: Uam Aguilera MD Consents and Labels Consent Signed: Informed Consent obtained and on the chart Labels Verified With Patient: Yes Indications: Nelli Carpenter, is a 33 year old female here today for intrauterine insemination. IUI # 1. Cycle Day: 15 Last menstrual period: 11/21/2023 [place] Protocol: UNIVERSAL PROTOCOL / SAFETY CHECKLIST Procedure [...] EMERGENT procedures): No specimen collected. Patient declined svp research and strategic analysis. Uma Aguilera MD IUI IUI Date: 12/05/23 [...] after wash): 49 million Donor ID #: [id number] Cycle reviewed, all questions answered. Pt instructed to take a test in 17 days if no menses and call with results. SIGNATURE: Uma Aguilera MD PATIENT NAME: Nelli Carpenter DATE: December 05, 2023 TIME: 10:31 AM I was present and immediately available for the entire procedure. Patient underwent an intrauterine insemination. Myriam Dominguez MD, TRUDY Johnson12/06/2023 8:45 AM Signed IUI Xytex #[id number] Frozen washed specimen Post: 145 Million/mL, 68% Insem #: 49 Million Referring Provider: ANDRESSA ABRAHAM [[id number]] Allergies As of Date: 12/05/2023 (No Known Allergies) Date Reviewed: 11/23/2023 Reviewed by: Andressa Abraham, DESIGN PAINTER.FRONT TENDER - Fully Assessed Primary Visit Diagnosis:Female infertility [...] Status:Closed by MYRIAM DOMINGUEZ on 12/06/23 Normal [facility] CNOV Office Visit (ANDRBE ) NELLI CARPENTER ([id number]) 1990 F Date Time Provider Department 12/05/23 9:30 AM ANDROLOGY DIRECTOR STRATEGIC PLANNING [facility] During your visit today, we recorded the following information about you: Stephanie Lara 12/05/2023 10:23 AM Signed Thaw for IUI Stephanie Johnsona Referring Provider: ANDRESSA ABRAHAM [[id number]] Allergies As of Date: 12/05/2023 (No Known [...] Encounter Status:Closed by STEPHANIE LARA on 12/05/23 [facility] 841409an 11-23-2023 O ID: [id number] Author: ANDRESSA ABRAHAM APRN.CNP Service: ? Author [...] None Comments: None Andressa Abraham APRN.CNP 11/23/2023 [facility] 024 Progesterone [Mass/Vol] 7.4 ng/mL Normal See comment [facility] Comment on above: Order Comment: Speci men Type: BLOOD SPECIMENOrdering Facility: [facility] Address: [address] [place] [address] Result Comment: Mens trual Cycle Progesterone Reference Ranges: Follicular: <1.0 ng/mL Ovulation: <12.1 ng/mL Luteal: 1.8 to 23.9 ng/mL. Progesterone Reference Ranges vary by gestational period: First Trimester: 11.0 to 44.3 ng/mL Second Trimester: 25.4 to 83.3 ng/mL Third Trimester: 58.7 to 214 ng/mL Post menopausal Progesterone: <0.5 ng/mL Reference: 1. Progesterone (Progesterone III) [package insert V 1.0 Polish]. [employer], [place], [place]. December 2014. Performed By: #### 2 839-9 ####[facility] LABCLIA [id number] [facility] [id number] [place] [address] OF [facility] Azar 10-12-2023 CNPN Telephone (REIBD) NELLI CARPENTER ([id number]) 1990 F Date Time Provider Department 10/12/23 ANDRESSA ABRAHAM During your visit today, we recorded the following information about you: Destiny Peters 10/12/2023 12:44 PM Signed Partner Wanda calling re +ov need to schedule progesterone test for Nelli when to have it done. Please follow up with Wanda. Laura Roque, RN 10/12/2023 12:54 PM Signed Called the [...] Diagnosis:Female infertility [N97.9] Order(s):PROGESTERONE [SQPROG] Order #: [id number] FUTURE Prescriptions as of 10/12/2023 - vit/iron fum/folic ac ( 1 + 1 ORAL) Take by mouth. - mv-min/iron/folic/calci um/vitK (WOMEN'S MULTIVITAMIN ORAL) Take by mouth. - BIOTIN ORAL Take by mouth once daily. - levonorgestrel (MIRENA) 20 mcg/24 hr IUD 1 Each by INTRAUTERINE route one time only. Problem List As Of Date: 10/12/2023 (None) Encounter Status:Closed by JESSI YOO on 10/12/23 [facility] CNOVon 09-11-2023 CNOV Office Visit (REIBD) NELLI CARPENTER ([id number]) 1990 F Date Time Provider Department 09/11/23 [...] favorite donors - send to me via THE NOCKLIST to confirm Confirmed best vial type to order: IUI/prewashed Will need to follow up to firm up treatment plan and review IUI scheduling instructions. Andressa Abraham APRN.FRONT TENDER September 11, 2023 8:08 AM I spent a total of 50 minutes on the date of the service which included preparing to see the patient, ufkj-nx-cdvx patient care, completing clinical documentation, obtaining and/or [...] to communic (more content not included)... Normal [facility] Ambulatory Visit Summaryon 1 05-17-2022 Ambulatory Visit [...] for choosing us for your care. [facility] Family Medicine Office/Clini c Noteon 03-16-2023 Family [...] data available Patient Education Wrist Pain, Adult, Eqyc-er-Irdx Problem List/Past Medical History Ongoing Acute sinusitis [...] DTaP, unspecified formulation 1990 Recorded Normal [place] [facility] Comment on above: Result Comment: Elec [...] any changes in your symptoms. ? Take aopr-wei-nohicid and prescription medicines only as told by [...] Reviewed: 02/02/2020 Elsevier Patient Education ? 2022 [employer] [facility] XR Wrist 3+ Views Righton XR [...] = . DAP = . Normal [place] [facility] Covid 19 Resultson 1 SARS-CoV-2 (COVID-19) [...] may also be contacted by the [facility] to see if any of [...] or Naproxen (Aleve) can also be used. Czhx-kix-fysgjwf cough and cold medicines can be used according to the instructions on the package. Some gpqq-jgc-ozgpvda medicines also contain acetaminophen. Make sure you [...] water are not available, use alcohol-based hand mobile nurse. Avoid touching your eyes, nose, and mouth [...] 24 de (more content not included)... Normal [facility] INFLUENZA A/B, COVID 2019 PC R,SYMPTOMATICon 03-12-2021 INFLUENZA A, PCR Not detected Normal Not Detected [facility] Comment on above: Result Comment: Resp iratory virus testing is performed routinely by PCR for Influenza A/B and RSV. If Influenza and RSV PCR are negative, testing for parainfluenza 1,2,3 viruses and adenovirus is routinely performed for oncology inpatients and intensive care unit patients at [facility] and is available on request on other patients by calling Laboratory Client Services at [phone]. Not Detected results do not preclude Influenza A/B or RSV infections since the adequacy of sample collection or low viral burden may impact the clinical sensitivity of this test method. Performed By: #### C CELSO #### [facility] [address] [place] [address] INFLUENZA B, PCR Not detected Normal Not Detected [facility] Comment on above: Result Comment: Resp iratory virus testing is performed routinely by PCR for Influenza A/B and RSV. If Influenza and RSV PCR are negative, testing for parainfluenza 1,2,3 viruses and adenovirus is routinely performed for oncology inpatients and intensive care unit patients at [facility] and is available on request on other patients by calling Laboratory Client Services at [phone] Not Detected results do not preclude Influenza [...] by the Microbiology Laboratory, Department of Pathology, [facility], [place], [place]. It has not been cleared or approved by the US Food and Drug Administration; however, FDA clearance or approval is not currently required for clinical use. This test should not be regarded as investigational or for research purposes. Performed By: #### C OINP #### [facility] [address] [place] [address] SARS-CoV-2 (COVID-19) RNA PENNY+probe Ql (Unsp spec) Not detected Normal Not Detected [facility] Comment on above: Result Comment: [...] patient management decisions. Fact sheet for providers: https://www.fda.gov/media/150045/download Fact sheet for patients: https://www.fda.gov/media/572354/download This test has received FDA Emergency Use Authorization (EUA) and has been verified by [facility] ([facility]). This test is only authorized for the duration of time that circumstances exist to justify the authorization of the emergency use of in vitro diagnostic tests for the detection of SARS-CoV-2 virus and/or diagnosis of COVID-19 infection under section 564(b)(1) of the Act, 21 U.S.C. 360bbb-3(b)(1), unless the authorization is terminated or revoked sooner. [facility] is certified under CLIA-88 as qualified to perform high complexity testing. Testing is performed in the [facility] laboratories located at [address] [place] [address]. Performed By: #### C OINP #### [address] [place] [address] INFLUENZA A/B, COVID 2019 PC R,SYMPTOMATICon 03-11-2021 DATE OF SYMPTOM ONSET [YYYYMMDD]? [id number] Normal [facility] Comment on above: Performed By: #### C OINP #### [address] [place] [address] Lab Specimen Source Nasal, Nasopharyngeal Normal [facility] Comment on above: Performed By: #### C OINP #### [address] 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 Filomena Zamora (DESIGN PAINTER-FRONT TENDER) (Signed Addendum 12-Mar-2021 13:53) Spoke with patient and advised her of negative Covid test results, patien (more content not included)... Normal [facility] Hemoglobin and Hematocriton 12-10-2016 Hematocrit (HCT) 30.2 % Low 36.5-46.6 [facility] Comment on above: Performed By: #### 2 184860 ####[facility] [address] [place] [address] Hemoglobin mass conc (Bld) 9.8 g/dL Low 11.8-15.3 [facility] Comment on above: Performed By: #### 2 903992 ####[facility] [address] [place] [address] CBC With Differentialon 11-28 Basophils Auto #/vol (Bld) 0.05 10*3/uL Normal 0.01-0.07 [facility] Comment on above: Performed By: #### 2 610209 ####[facility] [address] [place] [address] Basophils/100 WBC Auto (Bld) 0.5 % Normal 0.1-1.2 [facility] Comment on above: Performed By: #### 2 420949 ####[address] [place] [address] Eosinophils 0.08 10*3/uL Normal 0.04-0.50 Pending sale to [facility] are Comment on above: Performed By: #### 2 138428 ####[address] [place] [address] Eosinophils/100 leukocytes 0.7 % Normal 0.0-8.1 [facility] Comment on above: Performed By: #### 2 355448 ####[address] [address] Erythrocyte distribution width Auto Ratio (RBC) 14.8 % Normal 12.0-15.4 [facility] Comment on above: Performed By: #### 2 915377 ####[address] [place] [address] Erythrocytes (RBC) 0.0 /100{WBCs} Normal [facility] Comment on above: Performed By: #### 2 663356 ####[address] [place] [address] Erythrocytes (RBC) 3.87 10*6/uL Normal 3.85-5.10 [facility] Comment on above: Performed By: #### 2 806040 ####[facility] [address] [place] [address] Erythrocytes (RBC) 0.00 10*3/uL Normal [facility] Comment on above: Performed By: #### 2 798312 ####[facility] [address] [place] [address] Hematocrit (HCT) 34.5 % Low 36.5-46.6 [facility] Comment on above: Performed By: #### 2 280181 ####[facility] [address] [place] [address] Hemoglobin mass conc (Bld) 11.4 g/dL Low 11.8-15.3 [facility] Comment on above: Performed By: #### 2 481442 ####[facility] [address] [place] [address] Imm Grans Absolute 0.55 10*3/uL High 0.00-0.21 [facility] Comment on above: Performed By: #### 2 347367 ####[facility] [address] [place] [address] Immature granulocytes #/vol (Bld) 5.0 % Normal [facility] Comment on above: Performed By: #### 2 999762 ####[address] [place] [address] Lymphocytes 1.91 10*3/uL Normal 0.40-2.84 [facility] Healthc are Comment on above: Performed By: #### 2 824820 ####[facility] [address] [place] [address] Lymphocytes/100 leukocytes 17.2 % Normal 15.7-50.5 [facility] Comment on above: Performed By: #### 2 046511 ####[facility] [address] [place] [address] MCH 29.5 pg Normal 27.5-33.0 [facility] Comment on above: Performed By: #### 2 954127 ####[facility] [address] [place] [address] MCHC mass conc (RBC) 33.0 g/dL Normal 30.1-35.0 [facility] Comment on above: Performed By: #### 2 194396 ####[facility] [address] [place] [address] MCV 89.1 fL Normal 85.4-100.0 [facility] Comment on above: Performed By: #### 2 939213 ####[facility] [address] [place] [address] Monocytes 0.84 10*3/uL High 0.25-0.83 [facility] Healthca re Comment on above: Performed By: #### 2 842535 ####[facility] [address] [facility] [place] [address] Monocytes/100 leukocytes 7.6 % Normal 4.8-12.7 [facility] Comment on above: Performed By: #### 2 749142 ####[facility] [address] [facility] [place] [address] Neutrophils 7.66 10*3/uL High 1.95-6.85 Pending sale to [facility] are Comment on above: Performed By: #### 2 [id number] ####[facility] [address] [place] [address] Neutrophils/100 leukocytes 69.0 % Normal 36.8-73.2 [facility] Comment on above: Performed By: #### 2 [id number] ####[facility] [address] [place] [address] Platelet mean volume (PMV) 10.7 fL Normal 9.9-12.1 [facility] Comment on above: Performed By: #### 2 [id number] ####[facility] [address] [place] [address] Platelets 197 10*3/uL Normal 155-404 [facility] Healthcar e Comment on above: Performed By: #### 2 [id number] ####[facility] [address] [place] [address] RDW SD 48.2 fL Normal 39.3-48.6 [facility] Comment on above: Performed By: #### 2 [id number] ####[facility] [address] [place] [address] WBC (Leukocytes) 11.1 10*3/uL High 4.4-9.9 [facility] althcare Comment on above: Performed By: #### 2 [id number] ####[facility] [address] [place] [address] Pathology ([facility])on 12-09-2016 Pathology ([facility]) FINAL SURGICAL PATHOLOGY [id number] FINAL DIAGNOSISPLACENTA-THIRD TRIMESTER PLACENTA WITH ACCESSORY LOBE , 470 GRAMS.FOCAL FIBRIN PLAQUE FORMATION.FOCAL DYSTROPHIC MICROCALCIFICATIONS.THR EE-VESSEL UMBILICAL CORD, NEGATIVE FOR FUNISITIS. MEMBRANES, NEGATIVE FOR CHORIOAMNIONITIS.CLINIC AL HISTORY: 37 WEEKS INTRAUTERINE , HISTORY OF PREVIA WITH BLEEDINGOPERATION:PRIMA RY SECTIONSPECIMEN(S):(A) PLACENTA, THIRD TRIMESTERPerformed at [facility], [address] [place] [id number] DESCRIPTION:Received fresh, labeled with the patient's name, [...] are intact and range from0.05-0.1 cm in diameter.Jewel Setter sections of cord, membranes, and placenta are submitted in sixcassettes.TASSummary of cassettes:A1 - cordA2, A3 - membranesA4, A5, A6 - paper sales representative sections of placentaSigned Out by:Kwame PITTMANorted: 12/11/2016 Normal [facility] Comment on above: Performed By: #### S UR ####[facility] [address] [place] [address] Red Blood Cellson 12-09-2016 Erythrocytes (RBC) Normal [facility] althcare Comment on above: Result Comment: [id number] released Performed By: #### R C ####[facility] (UNKNOWN)[facility] [place], [place] [address] Type and Screenon 12-09-2016 Antibody Screen Negative Normal [facility] Healt hcare Comment on above: Performed By: #### T S3 ####[facility] [address] [place] [address] Group and Rh Positive Normal [facility] Healthca re Comment on above: Performed By: #### T S3 ####[facility] [address] [place] [address] PREG COMPL ECHO W/O NIKKI ALIZA VEYon 12-03-2016 PREG COMPL ECHO W/O NIKKI SURVEY DATE OF EXAM: Dec 03 2016 3:38PMCLINICAL HISTORY/ Name: KANIKA MCCULLOUGHUDY:PREG COMPL ECHO W/O NIKKI SURVEY 12/03/2016 3:38 pmINDICATION:Growth assessment. Placenta previa.COMPARISON:Repor t from a previous obstetrical ultrasound of 10/30/2016 was reviewed. ERCHETNA CLINICIAN:KEITH ROSAS:Routine ultrasound of the pelvis was [...] closed with length of 3.3 cm. Normal [facility] Healthcare Culture Urineon 11-06-2016 Culture Urine STATUS: FINAL REPORT SITE: SOURCE: Urine Culture Urine: <1,000 cfu/ml--No growth Normal [facility] Comment on above: Performed By: #### 6 [id number] ####[facility] [address] [place] [address] Vital Signs Date Time Vital Sign Value Performing Clinician Facility 08-23-2024 15:07-0400 Body mass index (BMI) [Ratio] 39.7 kg/m2 Andrea Conner DO Work Phone: [facility] 08-23-2024 15:07-0400 Body weight 101.66 kg Andrea Conner DO Work Phone: [facility] 08-23-2024 15:07-0400 Diastolic blood pressure 78 mm[Hg] Andrea Conner DO Work Phone: [facility] 08-23-2024 15:07-0400 Systolic blood pressure 120 mm[Hg] Andrea Conner DO Work Phone: [facility] 08-08-2024 14:32-0400 Body mass index (BMI) [Ratio] 39.33 kg/m2 Andrea Conner DO Work Phone: [facility] 08-08-2024 14:32-0400 Body weight 100.7 kg Andrea Conner DO Work Phone: [facility] 08-08-2024 14:32-0400 Diastolic blood pressure 78 mm[Hg] Andrea Conner DO Work Phone: [facility] 08-08-2024 14:32-0400 Systolic blood pressure 122 mm[Hg] Andrea Conner DO Work Phone: [facility] 07-25-2024 11:01-0400 Body mass index (BMI) [Ratio] 39.55 kg/m2 Dina Moustapha ANIMAL NURSERY WORKER Work Phone: [facility] 07-25-2024 11:01-0400 Body weight 101.27 kg Dina Moustapha ANIMAL NURSERY WORKER Work Phone: [facility] 07-25-2024 11:01-0400 Diastolic blood pressure 80 mm[Hg] Dina Moustapha ANIMAL NURSERY WORKER Work Phone: [facility] 07-25-2024 11:01-0400 Systolic blood pressure 116 mm[Hg] Dina Moustapha ANIMAL NURSERY WORKER Work Phone: [facility] 07-11-2024 11:22-0400 Body mass index (BMI) [Ratio] 39.37 kg/m2 Andrea Conner DO Work Phone: [facility] 07-11-2024 11:22-0400 Body weight 100.81 kg Andrea Conner DO Work Phone: [facility] 07-11-2024 11:22-0400 Diastolic blood pressure 80 mm[Hg] Andrea Conner DO Work Phone: [facility] 07-11-2024 11:22-0400 Systolic blood pressure 120 mm[Hg] Andrea Conner DO Work Phone: [facility] 06-22-2024 13:40-0400 Body mass index (BMI) [Ratio] 39.33 kg/m2 Andrea Conner DO Work Phone: [facility] 06-22-2024 13:40-0400 Body weight 100.7 kg Andrea Conner DO Work Phone: [facility] 06-22-2024 13:40-0400 Diastolic blood pressure 74 mm[Hg] Andrea Conner DO Work Phone: [facility] 06-22-2024 13:40-0400 Systolic blood pressure 118 mm[Hg] Andrea Conner DO Work Phone: [facility] 04-19-2024 10:48-0500 Body mass index (BMI) [Ratio] 37.2 kg/m2 Andrea Conner DO Work Phone: [facility] 04-19-2024 10:48-0500 Body weight 95.25 kg Andrea Conner DO Work Phone: [facility] 04-19-2024 10:48-0500 Diastolic blood pressure 80 mm[Hg] Andrea Conner DO Work Phone: [facility] 04-19-2024 10:48-0500 Systolic blood pressure 122 mm[Hg] Andrea Conner DO Work Phone: [facility] 02-28-2024 09:00-0500 Blood Pressure Location [facility] 02-28-2024 09:00-0500 Body temperature 98.96 [degF] [facility] 02-28-2024 09:00-0500 Diastolic blood pressure 80 mm[Hg] [facility] 02-28-2024 09:00-0500 Heart rate 92 /min [facility] 02-28-2024 09:00-0500 SaO2% (BldA) [Mass fraction] 98 % [facility] 02-28-2024 09:00-0500 Systolic blood pressure 124 mm[Hg] [facility] 12-28-2023 08:37-0400 Body height 160 cm Karen Bolanos MD Work Phone: [facility] 12-28-2023 08:37-0400 Body mass index (BMI) [Ratio] 37.02 kg/m2 Karen Bolanos MD Work Phone: [facility] 12-28-2023 08:37-0400 Body temperature 98.6 [degF] Karen Bolanos MD Work Phone: [facility] 12-28-2023 08:37-0400 Body weight 94.8 kg Karen Bolanos MD Work Phone: [facility] 12-28-2023 08:37-0400 Diastolic blood pressure 78 mm[Hg] Karen Bolanos MD Work Phone: [facility] 12-28-2023 08:37-0400 Heart rate 76 /min Karen Bolanos MD Work Phone: [facility] 12-28-2023 08:37-0400 SaO2% (BldA) [Mass fraction] 98 % Karen Bolanos MD Work Phone: [facility] 12-28-2023 08:37-0400 Systolic blood pressure 116 mm[Hg] Karen Bolanos MD Work Phone: [facility] 06-08-2023 09:50-0400 Body height 160 cm Rahul Zheng MD Work Phone: [facility] 06-08-2023 09:50-0400 Body weight 89 kg Rahul Zheng MD Work Phone: [facility] 06-08-2023 09:50-0400 Diastolic blood pressure 83 mm[Hg] Rahul Zheng MD Work Phone: [facility] 06-08-2023 09:50-0400 Systolic blood pressure 132 mm[Hg] Rahul Zheng MD Work Phone: [facility] 03-16-2023 15:08-0500 Blood Pressure Location TI[facility] KAT[facility] 03-16-2023 15:08-0500 Body temperature 98.42 [degF] [facility] 03-16-2023 15:08-0500 Diastolic blood pressure 84 mm[Hg] [facility] 03-16-2023 15:08-0500 Heart rate 73 /min [facility] K[facility] 03-16-2023 15:08-0500 SaO2% (BldA) [Mass fraction] 96 % [facility] K[facility] 03-16-2023 15:08-0500 Systolic blood pressure 128 mm[Hg] [facility] 03-11-2021 12:17-0500 Body height 160 cm Karen Luis Miguel Other Phone: [facility] 03-11-2021 12:17-0500 Body temperature 98.06 [degF] Karen Luis Miguel Other Phone: [facility] 03-11-2021 12:17-0500 Diastolic blood pressure 67 mm[Hg] Karen Luis Miguel Other Phone: [facility] 03-11-2021 12:17-0500 Heart rate 78 /min Karen Luis Miguel Other Phone: [facility] 03-11-2021 12:17-0500 Respiratory rate 20 /min Karen Luis Miguel Other Phone: [facility] 03-11-2021 12:17-0500 SaO2% (BldA) [Mass fraction] 97 % Karen Luis Miguel Other Phone: [facility] 03-11-2021 12:17-0500 Systolic blood pressure 101 mm[Hg] Karen Luis Miguel Other Phone: [facility] Encounters Encounter Date Encounter Type Care Provider Facility Start: 08-27-2024 End: 08-27-2024 Clinisync Result Encounter Andrea Conner DO Work Phone: [facility] Unsolicited Start: 08-27-2024 End: 08-27-2024 Clinisync Result Encounter Andrea Conner DO Work Phone: [facility] Unsolicited Start: 08-23-2024 End: 08-23-2024 ambulatory ANDREA CONNER [...] 07-25-2024 End: 07-25-2024 Bamboo flowsheet Dina Gerard ANIMAL NURSERY WORKER Work Phone: [facility] Start: 07-25-2024 End: 07-25-2024 Bamboo flowsheet Dina Gerard ANIMAL NURSERY WORKER Work Phone: [facility] Start: 07-25-2024 End: 07-25-2024 flow sheet Dina Gerard ANIMAL NURSERY WORKER Work Phone: [facility] Comment on [...] dates Start: 06-01-2024 End: 06-01-2024 ambulatory TRISTAN ISAIRYANANDREA Facility:[facility] Start: 06-01-2024 End: 06-01-2024 Patient encounter procedure Whi Tech 3 Peoples[employer] Taleo Manager [facility] Comment on above: Encounter for anatomic survey (Primary Dx); Obesity affecting in second trimester, unspecified obesity type; Class 1 obesity without serious comorbidity with body mass index (BMI) of 34.0 to 34.9 in adult, unspecified obesity type; 23 weeks gestation of Start: 05-31-2024 End: 05-31-2024 ambulatory ANDREA CONNER Not Available Start: 05-27-2024 End: 05-27-2024 Transcribe Orders Peoplesoft Taleo Manager Transcribe Provider Maternal Medicine Comment on above: [...] encounter procedure Andrea Conner DO Work Phone: [facility] Start: 04-19-2024 End: 04-19-2024 Periodic preventive [...] Not Available Start: 02-28-2024 End: 02-28-2024 ambulatory [facility] Facility:[facility] Start: 02-28-2024 End: 02-28-2024 Patient encounter procedure TIARRA KATZ [facility] Start: 02-16-2024 End: 02-16-2024 ambulatory Andressa Abraham DESIGN PAINTER.FRONT TENDER Work Phone: [facility] Comment on above: Records Start: 02-09-2024 End: 02-09-2024 Nursing evaluation of patient and report Fern Lamar MD Work Phone: [facility] Comment on above: resulting from assisted reproductive technology in first trimester Start: 02-09-2024 End: 02-09-2024 ambulatory ANDRESSA ABRAHAM Facility:[facility] Start: 01-21-2024 End: 01-21-2024 ambulatory JESSI YOO Facility:[facility] Start: 01-20-2024 End: 01-20-2024 ambulatory Andressa Abraham DESIGN PAINTER.FRONT TENDER Work Phone: [facility] Comment on above: resulting from assisted reproductive technology in first trimester (Primary Dx) Start: 01-20-2024 End: 01-20-2024 Telemedicine consultation with patient Andressa Abraham DESIGN PAINTER.FRONT TENDER Work Phone: [facility] Start: 01-19-2024 End: 01-19-2024 ambulatory JESSIFRANCISCA YOO Facility:[facility] Start: 01-18-2024 End: 01-18-2024 Telephone encounter Andressa Abraham DESIGN PAINTER.FRONT TENDER Work Phone: [facility] Comment on above: +hpt 01/15 after an iui Start: 01-02-2024 End: 01-02-2024 ambulatory ANYI GANT Facility:[facility] Start: 01-02-2024 End: 01-02-2024 Patient encounter procedure Anyi Gant MD Work Phone: [facility] Comment on above: Encounter for artifi cial insemination (Primary Dx) Procreative manageme nt (Primary Dx) Start: 12-30-2023 End: 12-30-2023 ambulatory ANDRESSA ABRAHAM Facility:[facility] Start: 12-28-2023 End: 12-28-2023 Shreyas Bolanos MD Work Phone: [facility] Start: 12-28-2023 End: 12-28-2023 Shreyas Bolanos MD Work Phone: [facility] Start: 12-28-2023 End: 12-28-2023 Office outpatient visit 15 minutes Karen Bolanos MD Work Phone: [facility] Comment on above: Infertility, female (Primary Dx); BMI 37.0-37.9, adult; Morbid obesity (CMS/[facility]) Start: 12-28-2023 End: 12-28-2023 ambulatory KAREN BOLANOS Not Available Start: 12-05-2023 End: 12-05-2023 ambulatory ANDRESSA ABRAHAM Facility:[facility] Start: 12-05-2023 End: 12-05-2023 Patient encounter procedure Andrology Feed Crusher Operator Work Phone: [facility] Comment on above: Procreative manageme nt (Primary Dx) Female infertility ( Primary Dx) Start: 12-04-2023 End: 12-04-2023 ambulatory Andressa Abraham DESIGN PAINTER.LEXUS Work Phone: [facility] Comment on above: Financial clearance Start: 11-23-2023 End: 11-23-2023 ambulatory Andressa Abraham DESIGN PAINTER.FRONT TENDER Work Phone: [facility] Comment on above: Reproductive mgmt, i nfertility due to male factor (Primary Dx) Start: 11-23-2023 End: 11-23-2023 Telemedicine consultation with patient Andressa Antunez Jarad TEMPLE.LEXUS Work Phone: [facility] Start: 10-29-2023 E-mail encounter fro m caregiver Vidhya Pitt APRN.LEXUS Work Phone: [facility] Start: 10-29-2023 Follow-up encounter Vidhya osorio APRN.LEXUS Work Phone: [facility] Comment on above: Follow up Start: 10-16-2023 End: 10-16-2023 ambulatory JESSI OLI Facility:[facility] Start: 10-12-2023 Telephone encounter Andressa Abraham APRN.LEXUS Work Phone: [facility] Comment on above: +ovulation test Thu& d14 & 15 partner calling Start: 10-05-2023 ambulatory Andressa goldstein DESIGN PAINTER.FRONT TENDER Work Phone: [facility] Comment on above: Doner Start: 09-11-2023 End: 09-11-2023 ambulatory ANDRESSA ABRAHAM Facility:[facility] Start: 09-11-2023 End: 09-11-2023 Patient encounter procedure Andressa Abraham DESIGN PAINTER.FRONT TENDER Work Phone: [facility] Comment on above: Encounter for fertil ity planning (Primary Dx) Start: 07-28-2023 Telephone encounter Rahul carroll MD Work Phone: [facility] Comment on above: Lila bloodwork compl eted today Start: 06-15-2023 End: 06-15-2023 ambulatory Andressa Abraham DESIGN PAINTER.FRONT TENDER Work Phone: [facility] Comment on above: Encounter for fertil ity planning (Primary Dx); Encounter for other genetic testing of female for procreative management Start: 06-15-2023 End: 06-15-2023 Telemedicine consultation with patient Andressa Abraham DESIGN PAINTER.FRONT TENDER Work Phone: [facility] Start: 06-08-2023 End: 06-08-2023 Patient encounter procedure Rahul Zheng MD Work Phone: [facility] Comment on above: Procreative manageme nt counseling (Primary Dx); BMI 34.0-34.9,adult Start: 03-16-2023 End: 03-16-2023 ambulatory TIARRA KATZ Facility:[facility] Start: 03-16-2023 End: 03-16-2023 Patient encounter procedure TIARRA KATZ [facility] Start: 03-19-2022 End: 03-19-[address] ANDREA PRIETO Facility: Start: 03-11-2021 End: 03-11-2021 Emergency department patient visit Filomena Zamora [facility] Start: 12-09-2016 End: 12-11-2016 Evaluation and management of inpatient KEITH [place] Facility:[facility] Start: 12-03-2016 Ambulatory [facility] Facility: [facility] Start: 11-13-2016 End: 11-13-2016 Ambulatory CHARLIE JOEL Facility:[facility] Start: 11-06-2016 Ambulatory CHARLIE JOEL Faci lity:[facility] Procedures Date Procedure Procedure Detail Performing Clinician Start: 08-27-2024 US OB BPP W NON-STRESS Andrea Conner DO Work Phone: Start: 08-23-2024 Urnls dip stick/tabl et rgnt [...] et rgnt non-auto w/o micrscp Dina Gerard ANIMAL NURSERY WORKER Work Phone: Start: 07-08-2024 ALL CBC WITH AUTO DIFF Karyna Craig PA Work Phone: Start: 06-27-2024 Urnls dip stick/tabl et rgnt non-auto w/o micrscp Andrea Conner DO Work Phone: Start: 06-01-2024 Us preg uterus after 1st trimest 03/30 gestation Tristan Gloria DESIGN PAINTER.FRONT TENDER Work Phone: Start: 04-19-2024 RECURRENT VAGINITIS (HTRX) [...] after 1st trimest 03/30 gestation Andressa Abraham DESIGN PAINTER.FRONT TENDER Work Phone: Start: 03-19-2022 Microscopic observat ion [Identifier] in Cervix by Cyto stain Karen Bolanos MD Work Phone: section TIARRA CALVO Removal of intrauter ine device TIARRA MADALYN Plan of Treatment Date Care Activity Detail Author Start: 04-19-2029 Screening for malign ant neoplasm of cervix [facility] Start: 03-19-2025 Screening for malign ant neoplasm of cervix [facility] Start: 11-28-2024 Influenza vaccination Influenz a Vaccine (Season Ended) [facility] Start: 08-31-2024 End: 08-31-2024 Patient encounter procedure 08/31/2024 11:20 AM EDT Routine [facility] [address] [place] [id number] Karyna Craig, PA [address] [place] [address] [facility] Start: 08-23-2024 End: 08-23-2024 Patient encounter procedure 08/23/2024 1:10 PM EDT Routine [facility] [address] [place] [phone] Karyna Craig PA [address] [place] [address] [facility] Start: 08-08-2024 End: 08-08-2024 Patient encounter procedure [facility] Comment on above: Arrived Start: 08-08-2024 End: 02-08-2025 US biophysical profile w non stress test US biophysical profile w non stress test Imaging Routine Third trimester 33 weeks gestation of Gestational diabetes mellitus (GDM), antepartum, gestational diabetes method of control unspecified Expected: 08/08/2024 (Approximate), Expires: 02/08/2025 [facility] Work Phone: Comment on above: Expected: 08/08/2024 [...] [facility] [address] [place] [address] Andrea Prieto, DO [address] [place] [address] [facility] Start: 07-11-2024 End: 07-11-2024 Professional / ancillary services management 07/11/2024 10:30 AM EDT Ancillary Procedure [facility] [address] [place] [id number] [facility] Start: 07-05-2024 End: 07-05-2024 Patient encounter procedure 07/05/2024 11:00 AM EDT Office Visit [facility] [address] [place] [address] Andrea Prieto, DO [address] [place] [address] [facility] Start: 06-22-2024 End: 06-22-2025 [...] mellitus screening Expected: 06/22/2024 (Approximate), Expires: 06/22/2025 [facility] Comment on above: Expected: 06/22/2024 (Approximate), Expires: 06/22/2025 Start: 06-22-2024 End: 06-22-2025 US for US OB follow up transabdominal approach Imaging Routine size inconsistent with dates Expected: 06/22/2024, Expires: 06/22/2025 [facility] Work Phone: Comment on above: Expected: 06/22/2024 , Expires: 06/22/2025 Start: 06-01-2024 End: 06-01-2024 Patient encounter procedure 06/01/2024 11:00 AM EST Routine Office Visit Maternal Medicine [facility] [address] [place] [address] anatomy Maternal Medicine [facility] Comment on above: anatomy Start: 05-27-2024 End: 05-27-2025 OBSTETRIC ULTRASOUND WHI OBSTETRIC ULTRASOUND WHI Anc Imaging Routine Encounter for anatomic survey Expected: 05/27/2024, Expires: 05/27/2025 [facility] Work Phone: Comment on above: Expected: 05/27/2024 , Expires: 05/27/2025 Start: 04-19-2024 End: 06-17-2024 Alpha fetoprotein, maternal Alpha fetoprotein, maternal Lab Routine Screening, , for anatomic survey Expected: 04/19/2024 (Approximate), Expires: 06/17/2024 [facility] Comment on above: Expected: 04/19/2024 (Approximate), Expires: 06/17/2024 Start: 04-19-2024 End: 06-17-2025 US Breast - right Right breast US complete Imaging Routine Mass of right breast, unspecified quadrant Neoplasm of unspecified behavior of breast Expected: 04/19/2024, Expires: 06/17/2025 [facility] Comment on above: Expected: 04/19/2024 , Expires: 06/17/2025 Start: 04-19-2024 End: 04-19-2024 Patient encounter procedure 04/19/2024 10:30 AM EST Routine [facility] [address] [place] [phone] Andrea Prieto, [address] [place] [address] Arrived [facility] Comment on above: Arrived Start: 04-12-2024 End: 04-12-2024 Patient encounter procedure 04/12/2024 11:10 AM EST Routine [facility] [address] [place] [phone] Andrea Prieto, DO [address] [place] [address] [facility] Start: 03-11-2024 End: 03-11-2025 ABO/Rh ABO/Rh Lab Routine Missed menses , unspecified gestational age Expected: 03/11/2024 (Approximate), Expires: 03/11/2025 [facility] Comment on above: Expected: 03/11/2024 (Approximate), Expires: 03/11/2025 Start: 03-11-2024 End: 03-11-2025 Blood type and Indirect antibody screen panel - Blood Type and screen Lab Routine Missed menses , unspecified gestational age Expected: 03/11/2024 (Approximate), Expires: 03/11/2025 [facility] Work Phone: Comment on above: Expected: 03/11/2024 (Approximate), Expires: 03/11/2025 Start: 03-11-2024 End: 03-11-2025 Drugs of abuse panel - Urine by Screen method Rapid drug screen, urine Lab Routine , unspecified gestational age Encounter for supervision of normal first in first trimester Expected: 03/11/2024 (Approximate), Expires: 03/11/2025 [facility] Comment on above: Expected: 03/11/2024 (Approximate), Expires: 03/11/2025 Start: 02-09-2024 End: 02-09-2024 Nursing evaluation of patient and report 02/09/2024 10:30 AM EST Nurse Visit [facility] [address] [place] [address] Rej, Nurse Sarmad [facility] [address] [place] [address] ob scan [facility] Comment on above: ob scan Start: 01-25-2024 End: 01-25-2024 Patient encounter procedure 01/25/2024 9:40 AM EDT Office Visit [facility] [address] [place] [address] Andrea Prieto, DO [address] [place] [address] [facility] Start: 01-20-2024 End: 01-19-2025 OBSTETRIC ULTRASOUND WHI OBSTETRIC ULTRASOUND WHI Anc Imaging Routine resulting from assisted reproductive technology in first trimester Expected: 01/20/2024, Expires: 01/19/2025 [facility] Work Phone: Comment on above: Expected: 01/20/2024 , Expires: 01/19/2025 Start: 12-28-2023 End: 12-28-2023 Patient encounter procedure 12/28/2023 8:20 AM EDT Office Visit [facility] [address] [place] [address] Karen Bolanos MD [address] [place] [address] Arrived [facility] Comment on above: Arrived Start: 12-05-2023 End: 12-05-2023 Patient encounter procedure [facility] Comment on above: donor thaw IUI-D Start: 11-29-2023 Covid-19 Vaccine ( season) Covid-19 Vaccine ( season) [facility] Start: 11-29-2023 Covid-19 Vaccine ( season) Covid-19 Vaccine () [facility] Start: 11-29-2023 Influenza vaccination Influenza Vacc ine (#1) [facility] Start: 10-12-2023 End: 01-11-2024 Progesterone [Mass/volume] in Serum or Plasma PROGESTERONE Lab Routine Female infertility Expected: 10/12/2023, Expires: 01/11/2024 [facility] Work Phone: Comment on above: Expected: 10/12/2023 , Expires: 01/11/2024 Start: 06-15-2023 End: 09-14-2023 CARRIER SCREEN, EXPANDED CARRIER SCREEN, EXPANDED Lab Routine Encounter for other genetic testing of female for procreative management Expected: 06/15/2023, Expires: 09/14/2023 [facility] Work Phone: Comment on above: Expected: 06/15/2023 , Expires: 09/14/2023 Start: 03-30-2023 Behavioral Health Screening Behavioral Health Screening [facility] Start: 03-30-2023 Depression Assessment Depression Ass essment [facility] Start: 11-28-2022 Covid-19 Vaccine ( season) Covid-19 Vaccine ( season) [facility] Start: 11-28-2022 Influenza vaccination Influenza Vacc ine (#1) [facility] Start: 08-01-2021 Screening for malign ant neoplasm of cervix [facility] Start: 03-18-2018 Screening for malign ant neoplasm of cervix Pap Testing [facility] Start: 03-18-2016 Screening for malign ant neoplasm of cervix Cervical Cancer Screening [facility] Start: 08-01-2009 Anxiety Screening Anxiety Screening [facility] Start: 08-01-2009 Depression Screening Depression Scre ening [facility] Start: 08-01-2009 Hepatitis C screening Hepatitis C Sc reening [facility] Start: 08-01-2009 HIV screening HIV Screening [facility] Start: 01-05-2004 Hepatitis B Vaccine (2 of 3 - 3-dose series) Hepatitis B Vaccine (2 of 3 - 3-dose series) [facility] Start: 08-01-2002 Urine microalbumin profile DTaP,Tdap,Td Vaccine (5 - Tdap) [facility] Bacteria identified in Urine by Culture Urine culture Microbiology Routine Missed menses Ordered: 03/11/2024 [facility] Comment on above: Ordered: 03/11/2024 CBC W Auto Different ial panel - Blood CBC and differential Lab Routine Missed menses , unspecified gestational age Ordered: 03/11/2024 [facility] Comment on above: Ordered: 03/11/2024 CHLAMYDIA TRACHOMATI S (GENITO/STI) CHLAMYDIA TRACHOMATIS (GENITO/STI) Lab Routine Vaginal discharge STD exposure Ordered: 04/19/2024 [facility] Comment on above: Ordered: 04/19/2024 End: 01-17-2025 Choriogonadotropin.beta subunit [Units/volume] in Serum or Plasma HCG QUANTITATIVE Lab Routine Encounter for test, result positive 2x per week for 2 Occurrences starting 01/18/2024 until 01/17/2025 [facility] Work Phone: Comment on above: 2x per week for 2 Oc currences starting 01/18/2024 until 01/17/2025 Cytology Cervical or vaginal smear or scraping study Pap Smear Pathology and Cytology Routine Well woman exam with routine gynecological exam Ordered: 04/19/2024 [facility] Work Phone: Comment on above: Ordered: 04/19/2024 Hemoglobin A1c/Hemoglobin.total in Blood Hemoglobin A1c Lab Routine Missed menses , unspecified gestational age Ordered: 03/11/2024 [facility] Comment on above: Ordered: 03/11/2024 Hepatitis B virus surface Ag [Presence] in Serum or Plasma by Immunoassay Hepatitis B surface antigen Lab Routine Missed menses , unspecified gestational age Ordered: 03/11/2024 [facility] Comment on above: Ordered: 03/11/2024 Hepatitis C virus Ab [Presence] in Serum or Plasma by Immunoassay Hepatitis C antibody Lab Routine Missed menses , unspecified gestational age Ordered: 03/11/2024 [facility] Comment on above: Ordered: 03/11/2024 HIV-1/HIV-2 antigen/antibody combination immunoassay HIV-1 and HIV-2 antibodies Lab Routine Missed menses , unspecified gestational age Ordered: 03/11/2024 [facility] Comment on above: Ordered: 03/11/2024 Human papilloma viru s DNA [Presence] in Unspecified specimen by Probe with amplification HPV DNA probe, amplified Microbiology Routine Well woman exam with routine gynecological exam Ordered: 04/19/2024 [facility] Comment on above: Ordered: 04/19/2024 Neisseria gonorrhoea e DNA [Presence] in Unspecified specimen by PENNY with probe detection Neisseria gonorrhea DNA probe, direct Lab Routine Vaginal discharge STD exposure Ordered: 04/19/2024 [facility] Comment on above: Ordered: 04/19/2024 Reagin Ab [Presence] in Serum by RPR RPR Lab Routine Missed menses , unspecified gestational age Ordered: 03/11/2024 [facility] Comment on above: Ordered: 03/11/2024 Rubella antibody, IgG Rubella an tibody, IgG Lab Routine Missed menses , unspecified gestational age Ordered: 03/11/2024 [facility] Comment on above: Ordered: 03/11/2024 SURESWAB(R) ADVANCED VAGINITIS PLUS, TMA SURESWAB(R) ADVANCED VAGINITIS PLUS, TMA Pathology and Cytology Routine Vaginal discharge STD exposure Ordered: 04/19/2024 [facility] Comment on above: Ordered: 04/19/2024 Immunizations Immunization Date Immunization Notes Care Provider [facility] 09-13-2023 measles, mumps and rubella virus vaccine Karen Bolanos MD Work Phone: [facility] 06-15-2023 influenza, injectable, quadrivalent, contains preservative Karen Bolanos MD Work Phone: [facility] 06-15-2023 influenza virus vaccine, unspecified formulation Andressa Abraham WON Work Phone: [facility] 08-17-2020 SARS-CoV-2 (COVID-19 ) mRNA-1273 vaccine FREMONT MADALYN [facility] 07-20-2020 SARS-CoV-2 (COVID-19 ) mRNA-1273 vaccine [facility] 12-10-2016 influenza virus vaccine, unspecified formulation TIARRA KATZ [facility] 12-10-2016 influenza, injectable, quadrivalent, preservative free Karen Bolanos MD Work Phone: [facility] 02-16-2009 novel [id number], preservative-free, injectable Karen Bolanos MD Work Phone: [facility] 12-08-2003 hepatitis B vaccine, pediatric or pediatric/adolescent dosage [facility] 12-08-2003 measles, mumps and rubella virus vaccine [facility] 12-08-2003 tetanus toxoid, adsorbed Karen Bolanos MD Work Phone: [facility] 10-27-1996 measles, mumps and rubella virus vaccine [facility] 02-08-1993 diphtheria, tetanus toxoids and acellular pertussis vaccine Karen Bolanos MD Work Phone: [facility] 02-08-1993 diphtheria, tetanus toxoids and acellular pertussis vaccine, unspecified formulation Karen Bolanos MD Work Phone: [facility] 02-08-1993 DTaP, unspecified formulation [facility] 02-08-1993 haemophilus influenzae type b vaccine, conjugate unspecified formulation Karen Bolanos MD Work Phone: [facility] 02-08-1993 haemophilus influenzae type b vaccine, HbOC conjugate Karen Bolanos MD Work Phone: [facility] 02-08-1993 Hib, unspecified formulation [facility] 02-08-1993 poliovirus vaccine, unspecified formulation Karen Bolanos MD Work Phone: [facility] 02-07-1992 diphtheria, tetanus toxoids and acellular pertussis vaccine Karen Bolanos MD Work Phone: [facility] 02-07-1992 diphtheria, tetanus toxoids and acellular pertussis vaccine, unspecified formulation Karen Bolanos MD Work Phone: [facility] 02-07-1992 DTaP, unspecified formulation TIARRA KATZ [facility] 02-07-1992 haemophilus influenzae type b vaccine, conjugate unspecified formulation Karen Bolanos MD Work Phone: [facility] 02-07-1992 haemophilus influenzae type b vaccine, HbOC conjugate Karen Bolanos MD Work Phone: [facility] 02-07-1992 Hib, unspecified formulation [facility] 1991 diphtheria, tetanus toxoids and acellular pertussis vaccine Karen Bolanos MD Work Phone: [facility] 1991 diphtheria, tetanus toxoids and acellular pertussis vaccine, unspecified formulation Karen Bolanos MD Work Phone: [facility] 1991 DTaP, unspecified formulation [facility] 1991 haemophilus influenzae type b vaccine, conjugate unspecified formulation Karen Bolanos MD Work Phone: [facility] 1991 haemophilus influenzae type b vaccine, HbOC conjugate Karen Bolanos MD Work Phone: [facility] 1991 Hib, unspecified formulation TIARRA KATZ [facility] 1991 poliovirus vaccine, unspecified formulation Karen Bolanos MD Work Phone: [facility] 1991 diphtheria, tetanus toxoids and acellular pertussis vaccine Karen Bolanos MD Work Phone: [facility] 1991 diphtheria, tetanus toxoids and acellular pertussis vaccine, unspecified formulation Karen Bolanos MD Work Phone: [facility] 1991 DTaP, unspecified formulation TIARRA MADALYN [facility] 1991 haemophilus influenzae type b vaccine, conjugate unspecified formulation Karen Bolanos MD Work Phone: [facility] 1991 haemophilus influenzae type b vaccine, HbOC conjugate Karen Bolanos MD Work Phone: [facility] 1991 Hib, unspecified formulation TIARRA KATZ [facility] 1991 poliovirus vaccine, unspecified formulation Karen Bolanos MD Work Phone: [facility] NEGATED: Highlighted row has not occurred!03-16-2023 influenza virus vaccine, unspecified formulation TIARRA MADALYN [facility] Payers Date Payer Category Payer Unknown [id number] 2022 [facility] 1.2.8 [id number] 2022 Unknown 2022 Unknown [id number] 1991 Unknown [id number] 2.16.84 [id number] 1991 Unknown [id number] 2.16.8 [id number] 1991 Unknown [id number] 2.16.8 [id number] 1991 Unknown [id number] 2.16.8 [id number] 1991 Unknown [id number] 2.16.84 [id number] 1991 Unknown [id number] 2.16.84 [id number] 1991 Unknown [id number] 2.16.84 [id number] 1991 Unknown [id number] 2.16.84 [id number] 1991 Unknown [id number] 2.16.84 [id number] 1991 Unknown [id number] 2.16.84 [id number] 1991 Unknown [id number] 2.16.84 [id number] 1991 Unknown [id number] 2.16.84 [id number] 1991 Unknown [id number] 2.16.84 [id number] 1991 Unknown [id number] 2.16.84 [id number] 1959 Unknown [id number] Unknown [id number] Social History Date Type Detail Facility [facility] Tobacco smoking consumption unknown [facility] Start: 11-11-2022 End: 03-16-2023 Tobacco smoking status Never smoked tobacco (finding) [facility] Tobacco smoking status Never [facility] Start: 06-08-2023 End: 12-28-2023 Sex Assigned At Female [facility] Start: 04-12-2012 End: 11-11-2022 Tobacco use and exposure Smokeless tobacco non-user [facility] Start: 06-08-2023 End: 08-23-2024 Alcohol intake Current drinker of alcohol (finding) [facility] Start: 06-08-2023 End: 12-28-2023 History of Social function [facility] Start: 04-12-2012 Alcohol Comment social [facility] Start: 1991 Sex Assigned At Not on file [facility] Start: 1991 Sex Assigned At Female [facility] Start: 06-11-2022 Gender identity Identifies as female gender (finding) [facility] Start: 01-12-2023 Sexual orientation Homosexual (findi ng) [facility] Start: 11-10-2022 Alcohol Comment 1-2 drinks les [...] meal for a total of 4times daily. [id number] Start: 07-12-2024 End: 08-11-2024 1 each by In Vit ro route Daily Use to check FSBS four times daily [id number] Start: 07-12-2024 End: 08-11-2024 Goals Date Patient Goal Desired Activity /State Personal health goal Functional Status Date Assessment Result Facility 02-28-2024 Functional Status N/A [facility] 03-16-2023 Functional Status N/A [facility] Clinical Notes 03-16-2023 to 08-23-2024 Jocelyn Posadas LPN - 08/23/2024 2:40 PM EDBolivar Rubi MA - 08/08/2024 2:10 PM Lewis Gerard NP - 07/25/2024 10:40 AM EDBrian Johnson MA - 07/11/2024 11:00 AM EDTPatient [...] episode of recurrent major depressive disorder (HCC) ([facility]/HCC) 12/28/2023 Restless leg 12/28/2023 Resolved Ambulatory Problems [...] nursing note reviewed. Exam conducted with a svp research and strategic analysis present. Vitals: Estimated body mass index is [...] Andrea Prieto DO documented in this encounter [facility] 08-08-2024 History of Presen t illness Narrative [...] episode of recurrent major depressive disorder (HCC) ([facility]/HCC) 12/28/2023 Restless leg 12/28/2023 Resolved Ambulatory Problems [...] nursing note reviewed. Exam conducted with a svp research and strategic analysis present. Vitals: Estimated body mass index is [...] changes & patient will send results for Panel Installer next Thursday. Patient is also to start NST/BPP. Order will be sent to [facility] anf [facility] Scheduling. Patient given handout as well. Patient to have sugars monitored locally and is going to cancel upcoming appointment with [facility] telemedicine. Orders Placed This Encounter Procedures POCT urinalysis dipstick manually resulted Follow Up: Patient is to return to office in 3 week for routine OB appointment. Documented by Liane Manzano LPN on behalf of: Andrea Prieto DO documented in this encounter [facility] 07-25-2024 History of Presen t illness Narrative [...] episode of recurrent major depressive disorder (HCC) ([facility]) 12/28/2023 Restless leg 12/28/2023 Resolved [...] nursing note reviewed. Exam conducted with a svp research and strategic analysis present. Vitals: Estimated body mass index is [...] Patient has completed level 2 Ultrasound at [facility] but has not yet met with M. [...] Dina Gerard NP documented in this encounter [facility] 07-20-2024 Telephone encounter Note Received outside referral from Dr. Prieto for GDM consult due to elevated 1 hour glucose 202. Called pt. To schedule appointment no answer, left message with call back phone number. Jessy Lilly RN [facility] 07-20-2024 Miscellaneous Notes Received outside referral from Dr. Prieto for GDM consult due to elevated 1 hour glucose 202. Called pt. To schedule appointment no answer, left message with call back phone number. Jessy Lilly RN documented in this encounter [facility] 07-11-2024 History of Presen t illness Narrative [...] episode of recurrent major depressive disorder (HCC) ([facility]/HCC) 12/28/2023 Restless leg 12/28/2023 Resolved Ambulatory Problems [...] nursing note reviewed. Exam conducted with a svp research and strategic analysis present. Vitals: Estimated body mass index is [...] Diabetic and referral [facility]. Patient aware that supplies will be sent to pharmacy to take with her to referral appointment. Documented by Liane Manzano LPN on behalf of: Andrea Prieto DO documented in this encounter [facility] 06-22-2024 History of Presen t illness Narrative [...] by KAMARI Zavala documented in this encounter [facility] 06-01-2024 Note HNO ID: [id number] Author: LEONID MYERS MD Service: ? Author Type: Physician Type: Progress Notes Filed: 06/01/2024 15:07 Note Text: Please see ultrasound report for details of this visit. Leonid Myers M.D. [facility] 06-01-2024 History of Presen t illness Narrative Please see ultrasound report for details of this visit. Leonid Myers M.D. documented in this encounter [facility] 04-19-2024 History of Presen t illness Narrative [...] nursing note reviewed. Exam conducted with a svp research and strategic analysis present. Vitals: Estimated body mass index is [...] to be obtained. Pt being referred to [facility] for level II ultrasound for IVF Orders [...] Andrea Prieto DO documented in this encounter [facility] 03-11-2024 History of Presen t illness Narrative [...] episode of recurrent major depressive disorder (HCC) ([facility]) 12/28/2023 Restless leg 12/28/2023 Resolved Ambulatory Problems Diagnosis Date Noted No Resolved Ambulatory Problems Past Medical History: Diagnosis Date Asthma ([facility]) BMI 28.0-28.9,adult Depression screening GERD [...] or undercooked meat, and stay away from [facility]. Patient has also been advised to [...] Jacqui Ferguson LPN documented in this encounter [facility] 02-28-2024 Hospital Discharg e instructions Patient Education [...] Centers for Disease Control and Prevention: cdc.gov [place] [employer]: heart.org National Heart, Lung, and Blood [place]: nhlbi.nih.gov This information is not intended to replace advice given to you by your health care provider. Make sure you discuss any questions you have with your health care provider. Document Revised: 12/04/2022 Document Reviewed: 11/27/2022 [employer] Patient Education 2023 [employer] 02/28/2024 09:57:52 Otitis Media, Adult, Voeu-vi-Uikd Otitis Media, Adult Otitis media is a [...] pain. Follow these instructions at home: Take dkxd-oaz-zauyqgd and prescription medicines only as told by [...] provider. Document Revised: 06/24/2021 Document Reviewed: 06/24/2021 [employer] Patient Education 2023 Cynny. Follow Up Care 02/28/2024 08:48:51 With:Karen Bolanos MD Address: [address] [place] [address]- When: Unknown [facility] 02-28-2024 Note Patient Education ENT [...] Follow these instructions at home: ??? Take jeth-rxq-klcfbyw and prescription medicines only as told by [...] provider. Document Revised: 06/24/2021 Document Reviewed: 06/24/2021 [employer] Patient Education ? 2023 [employer] Nutrition BMI for Adults Body mass [...] (Inserted Image. Un (more content not included)... [facility] 02-09-2024 Note HNO ID: [id number] Author: VIDHYA PITT APRN.FRONT TENDER Service: ? Author Type: Nurse Practitioner Type: [...] Plan Move on to OB Vidhya Pitt APRN.FRONT TENDER February 09, 2024 12:27 PM [facility] 02-09-2024 History of Presen t illness Narrative [...] Parth Clark MD documented in this encounter [facility] 02-09-2024 Note HNO ID: [id number] Author: PARTH CLARK MD Service: ? Author Type: Physician Type: Progress Notes Filed: 02/09/2024 11:28 Note Text: Scan Visit Patient here for scan. See imaging documentation. Parth Clark MD [facility] 01-20-2024 Note HNO ID: [id number] Author: ANDRESSA ABRAHAM APRN.CNP Service: ? Author [...] visit. Either the patient or their legal paper sales representative has been informed of the [...] with OB: 02/14 or 02/21 Andressa Abraham APRN.FRONT TENDER January 20, 2024 9:03 AM Please schedule [...] which included preparing to see the patient, emks-zh-hxym patient care, completing clinical documentation, obtaining and/or [...] grammatical and typographical errors missed in proofreading. [facility] 01-20-2024 History of Presen t illness Narrative [...] visit. Either the patient or their legal paper sales representative has been informed of the [...] which included preparing to see the patient, hizu-cu-ezqh patient care, completing clinical documentation, obtaining and/or [...] missed in proofreading. documented in this encounter [facility] 01-18-2024 Telephone encounter Note Patient calls with [...] Yoo PA-C January 18, 2024 4:02 PM [facility] 01-18-2024 Miscellaneous Notes Patient calls with positive [...] regarding next steps. documented in this encounter [facility] 01-18-2024 Telephone encounter Note Please call patient back regarding next steps. [facility] Work Phone: 01-02-2024 Note HNO ID: [id number] Author: FLAVIA ELIZONDO, ? Service: ? Author Type: Recovery Manager Type: Progress Notes Filed: 01/02/2024 11:47 Note Text: Thaw for IUI Flavia Elizondo [facility] 01-02-2024 History of Presen t illness Narrative Thaw for IUI Flavia Elizondo documented in this encounter [facility] 01-02-2024 Note HNO ID: [id number] Author: FLAVIA ELIZONDO, ? Service: ? Author Type: Recovery Manager Type: Progress Notes Filed: 01/02/2024 11:46 Note Text: IUI Xytex #: [id number] Washed frozen specimen Post: 122 m/ml, 63% Insem#: 34.7 million [facility] 01-02-2024 History of Presen t illness Narrative IUI Xytex #: [id number] Washed frozen specimen Post: 122 m/ml, 63% Insem#: 34.7 million IUI specimen released to provider Flavia Elizondo January 02, 2024 11:23 AM documented in this encounter [facility] 01-02-2024 Note HNO ID: [id number] Author: ANYI GANT MD Service: ? Author [...] Cycle Day: 15 Last menstrual period: 12/19/2023 [place] Protocol: UNIVERSAL PROTOCOL / SAFETY CHECKLIST Procedure [...] discussed with the Patient or Patient's Authorized Jewel Setter. As applicable, any other physician, advance practice provider, medical student, or other health professional student that will be observing or involved in the sensitive examination for educational or training purposes was discussed with the Patient or Authorized Jewel Setter. The Patient or Authorized Jewel Setter has agreed to proceed with the sensitive examination. (Sensitive examination includes inspection and/or palpation of the breasts, pelvis, prostate and anorectal regions) Patient declined svp research and strategic analysis. IUI IUI Date: 01/02/24 Partner's Name: Wanda [...] Anyi Gant M.D. Reproductive Endocrinology and Infertility [facility] 01-02-2024 Procedure note WHI SARMDA IUI PROCEDURE NOTE Date: 01/02/2024 Primary Proceduralist: Uma Aguilera MD Consents and Labels Consent Signed: Informed Consent obtained and on the chart Labels Verified With Patient: Yes Indications: Nelli Carpenter, is a 33 year old female here today for intrauterine insemination. IUI # 2. Cycle Day: 15 Last menstrual period: 12/19/2023 [place] Protocol: UNIVERSAL PROTOCOL / SAFETY CHECKLIST Procedure [...] discussed with the Patient or Patient's Authorized Jewel Setter. As applicable, any other physician, advance practice provider, medical student, or other health professional student that will be observing or involved in the sensitive examination for educational or training purposes was discussed with the Patient or Authorized Jewel Setter. The Patient or Authorized Jewel Setter has agreed to proceed with the sensitive examination. (Sensitive examination includes inspection and/or palpation of the breasts, pelvis, prostate and anorectal regions) Patient declined svp research and strategic analysis. IUI IUI Date: 01/02/24 Partner's Name: Wanda [...] Anyi Gant M.D. Reproductive Endocrinology and Infertility [facility] Work Phone: 01-02-2024 Procedure note WHI SARMAD IUI PROCEDURE NOTE Date: 01/02/2024 Primary Proceduralist: Uma Aguilera MD Consents and Labels Consent Signed: Informed Consent obtained and on the chart Labels Verified With Patient: Yes Indications: Nelli Carpenter, is a 33 year old female here today for intrauterine insemination. IUI # 2. Cycle Day: 15 Last menstrual period: 12/19/2023 [place] Protocol: UNIVERSAL PROTOCOL / SAFETY CHECKLIST Procedure [...] discussed with the Patient or Patient's Authorized Jewel Setter. As applicable, any other physician, advance practice provider, medical student, or other health professional student that will be observing or involved in the sensitive examination for educational or training purposes was discussed with the Patient or Authorized Jewel Setter. The Patient or Authorized Jewel Setter has agreed to proceed with the sensitive examination. (Sensitive examination includes inspection and/or palpation of the breasts, pelvis, prostate and anorectal regions) Patient declined svp research and strategic analysis. IUI IUI Date: 01/02/24 Partner's Name: Wadna Carpenter IUI Time: 11:29 AM EDT Partner's [...] Endocrinology and Infertility documented in this encounter [facility] 01-02-2024 Note HNO ID: [id number] Author: FLAVIA ELIZONDO, ? Service: ? Author Type: Recovery Manager Type: Progress Notes Filed: 01/02/2024 11:46 Note Text: IUI specimen released to provider Flavia Elizondo January 02, 2024 11:23 AM [facility] 12-28-2023 History of Presen t illness Narrative [...] to monitor weight documented in this encounter [facility] 12-05-2023 Note HNO ID: [id number] Author: STEPHANIE LARA, ? Service: ? Author Type: ? Type: Progress Notes Filed: 12/06/2023 08:45 Note Text: IUI Xytex #[id number] Frozen washed specimen Post: 145 Million/mL, 68% Insem #: 49 Million [facility] 12-05-2023 History of Presen t illness Narrative IUI Xytex #[id number] Frozen washed specimen Post: 145 Million/mL, 68% Insem #: 49 Million IUI specimen released to provider Stephanie Lara December 05, 2023 10:19 AM documented in this encounter [facility] 12-05-2023 Note HNO ID: [id number] Author: MYRIAM DOMINGUEZ MD Service: ? Author [...] Cycle Day: 15 Last menstrual period: 11/21/2023 [place] Protocol: UNIVERSAL PROTOCOL / SAFETY CHECKLIST Procedure [...] EMERGENT procedures): No specimen collected. Patient declined svp research and strategic analysis. Uma Aguilera MD IUI IUI Date: 12/05/23 [...] after wash): 49 million Donor ID #: [id number] Cycle reviewed, all questions answered. Pt instructed to take a test in 17 days if no menses and call with results. SIGNATURE: Uma Aguilera MD PATIENT NAME: Nelli Carpenter DATE: December 05, 2023 TIME: 10:31 AM I was present and immediately available for the entire procedure. Patient underwent an intrauterine insemination. Myriam Dominguez MD, TRUDY [facility] 12-05-2023 Procedure note WHI SARMAD IUI PROCEDURE NOTE Date: 12/05/2023 Primary Proceduralist: Uma Aguilera MD Consents and Labels Consent Signed: Informed Consent obtained and on the chart Labels Verified With Patient: Yes Indications: Nelli Carpenter, is a 33 year old female here today for intrauterine insemination. IUI # 1. Cycle Day: 15 Last menstrual period: 11/21/2023 [place] Protocol: UNIVERSAL PROTOCOL / SAFETY CHECKLIST Procedure [...] EMERGENT procedures): No specimen collected. Patient declined svp research and strategic analysis. Uma Aguilera MD IUI IUI Date: 12/05/23 [...] after wash): 49 million Donor ID #: [id number] Cycle reviewed, all questions answered. Pt instructed to take a test in 17 days if no menses and call with results. SIGNATURE: Uma Aguilera MD PATIENT NAME: Nelli Carpenter DATE: December 05, 2023 TIME: 10:31 AM I was present and immediately available for the entire procedure. Patient underwent an intrauterine insemination. Myriam Dominguez MD, TRUDY [facility] Work Phone: 12-05-2023 Procedure note WHI SARMAD IUI PROCEDURE NOTE Date: 12/05/2023 Primary Proceduralist: Uma Aguilera MD Consents and Labels Consent Signed: Informed Consent obtained and on the chart Labels Verified With Patient: Yes Indications: Nelli Carpenter, is a 33 year old female here today for intrauterine insemination. IUI # 1. Cycle Day: 15 Last menstrual period: 11/21/2023 [place] Protocol: UNIVERSAL PROTOCOL / SAFETY CHECKLIST Procedure [...] EMERGENT procedures): No specimen collected. Patient declined svp research and strategic analysis. Uma Aguilera MD IUI IUI Date: 12/05/23 [...] after wash): 49 million Donor ID #: [id number] Cycle reviewed, all questions answered. Pt instructed to take a test in 17 days if no menses and call with results. SIGNATURE: Uma Aguilera MD PATIENT NAME: Nelli Carpenter DATE: December 05, 2023 TIME: 10:31 AM I was present and immediately available for the entire procedure. Patient underwent an intrauterine insemination. Myriam Dominguez MD, TRUDY documented in this encounter [facility] 12-05-2023 History of Presen t illness Narrative Thaw for IUI Stephanie Lara documented in this encounter [facility] 12-05-2023 Note HNO ID: [id number] Author: STEPHANIE LARA, ? Service: ? Author Type: ? Type: Progress Notes Filed: 12/05/2023 10:23 Note Text: Thaw for IUI Stephanie Lara [facility] 12-05-2023 Note HNO ID: [id number] Author: STEPHANIE LARA, ? Service: ? Author Type: ? 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 Tubal Patency Testing: defer for now Sperm Source:Donor Frozen Treatment Protocol: Natural Cycle Monitoring Plan: OPKs Ovidrel Trigger: No Supplemental Progesterone: None Comments: None Andressa Abraham APRN.CNP 11/23/2023 documented in this encounter [facility] 11-23-2023 Instructions Andressa Abraham APRN.CNP - 11/23/2023 [...] day of your period and let the hotel front desk agent know you will be doing [...] of your menstrual cycle to let the hotel front desk agent know you will be testing [...] please call the office to discuss. Location [address], [facility] [address] [facility], [place] [address] Available every day, including weekends and holidays (except Lauren and New Years.) Weekday IUI scheduling The day you get your LH surge, please call [phone] between 8:00am - 12:00pm to schedule your insemination for the next day. If you call after 12pm, we may not be able to schedule your appointment. IUI s are done by appointment only. You will make 2 appointments - an arrival time and an IUI time. Donor sperm IUI is available at the following location: [place]: [address], [address] [facility], [place] [address] Available every day, including weekends and holidays (except [place] and New Years.) Available for IUI using [...] want to do another IUI: Call the hotel front desk agent to make sure you are financially cleared. Ask to speak to an NELLY to confirm your treatment plan. Important phone number: [phone] documented in this encounter [facility] 11-23-2023 Note HNO ID: [id number] Author: ANDRESSA ABRAHAM APRN.CNP Service: ? Author [...] visit. Either the patient or their legal paper sales representative has been informed of the [...] IUI consent at earliest convenience. Andressa Abraham APRN.FRONT TENDER November 23, 2023 9:09 AM I spent a total of 25 minutes on the date of the service which included preparing to see the patient, zuuc-ow-odrz patient care, completing clinical documentation, obtaining and/or [...] grammatical and typographical errors missed in proofreading. [facility] 11-23-2023 History of Presen t illness Narrative [...] visit. Either the patient or their legal paper sales representative has been informed of the [...] which included preparing to see the patient, ewpo-qm-uenp patient care, completing clinical documentation, obtaining and/or [...] missed in proofreading. documented in this encounter [facility] 10-12-2023 Telephone encounter Note Called the patient she verified her name and date of patient is doing practice cycle Patient had peak on her opk 10-10-23 last period 09-27-23 Needs progesterone order I advised she goes in 6-8 days from positive opk not on fertility meds Laura Roque RN October 12, 2023 12:54 PM [facility] 10-12-2023 Miscellaneous Notes Called the patient she [...] up with Wanda. documented in this encounter [facility] 10-12-2023 Telephone encounter Note Partner Wanda calling re +ov need to schedule progesterone test for Nelli when to have it done. Please follow up with Wanda. [facility] Work Phone: 09-11-2023 Instructions Andressa Abraham APRN.LEXUS [...] sample yourself and arranging for shipment to [facility] Andrology Lab. Sperm Bank [facility] ([facility]) [place] [facility] Let us [...] (with a backup), please send me a [employer] message titled Sperm Donor Choice. Include the [...] the office. Mailing address: Attention: Flavia Elizondo [address] [place] [address], [address] [place] [address] Storage at the [facility] is available. Fees are yearly and only start once you are not actively trying. Please ask the financial team ([phone]) for current cost information. Insurance Authorization/Financial Clearance [...] day of your period and let the hotel front desk agent know you will be doing [...] any questions. Contact documented in this encounter [facility] 09-11-2023 Note HNO ID: [id number] Author: ANDRESSA ABRAHAM APRN.LEXUS Service: ? Author [...] favorite donors - send to me via [employer] to confirm Confirmed best vial type to order: IUI/prewashed Will need to follow up to firm up treatment plan and review IUI scheduling instructions. Andressa Abraham APRN.FRONT TENDER September 11, 2023 8:08 AM I spent a total of 50 minutes on the date of the service which included preparing to see the patient, zojz-pe-vutt patient care, completing clinical documentation, obtaining and/or [...] may be gramma (more content not included)... [facility] 09-11-2023 History of Presen t illness Narrative [...] favorite donors - send to me via [employer] to confirm Confirmed best vial type to order: IUI/prewashed Will need to follow up to firm up treatment plan and review IUI scheduling instructions. Andressa Abraham APRN.CNP September 11, 2023 8:08 AM I spent a total of 50 minutes on the date of the service which included preparing to see the patient, wsie-pc-qqll patient care, completing clinical documentation, obtaining and/or [...] missed in proofreading. documented in this encounter [facility] 07-28-2023 Telephone encounter Note Nelli's labs are [...] follow up once checklist is complete. sent [employer] message. Andressa Abraham APRN.CNP July 28, 2023 12:27 PM [facility] 07-28-2023 Miscellaneous Notes Nelli's labs are in [...] follow up once checklist is complete. sent [employer] message. Andressa Abraham APRN.CNP July 28, 2023 12:27 PM Please follow up with patient completed bloodwork today, next steps after labwork. documented in this encounter [facility] 07-28-2023 Telephone encounter Note Please follow up with patient completed bloodwork today, next steps after labwork. [facility] Work Phone: 06-15-2023 History of Presen t [...] and birthday verified: Yes Location of patient: [place] Persons Present: patient and patient's spouse/significant other I have communicated my name and active licensure. The patient's identity and physical location were verified at the time of this visit. Either the patient or their legal paper sales representative has been informed of the [...] in 2015 and a section in 2017 [facility] with. The was because of placenta [...] test results and next steps. Andressa Abraham APRN.FRONT TENDER June 15, 2023 4:06 PM I spent a total of 40 minutes on the date of the service which included preparing to see the patient, bfin-hi-nelq patient care, completing clinical documentation, obtaining and/or [...] missed in proofreading. documented in this encounter [facility] 06-08-2023 Instructions Rahul Zheng MD - 06/08/2023 10:26 AM EDT Images from the original note were not included. Obstetrics and Gynecology [facility] Intrauterine Insemination Scheduling Instructions Please [...] you get your LH surge, please call [phone] between 8:00am - 12:00pm to schedule your insemination for the next day. If you call after 12pm, we may not be able to schedule your appointment. IUI s are done by appointment only. You will make 2 appointments - one for sperm drop off/collection, and one for the insemination. If you are using a frozen sample, please tell the home care scheduler this. You will get an arrival time and an IUI time. IUI is available at the following locations: [place]: [address], [place] [address] Weekday availability is limited depending on staffing. Not available on weekends. Not available for those with frozen sperm. Check in location for sperm wash and IUI: 2nd floor, room 208. The sperm wash takes 60-90 minutes. [place]: [address], [place] [address] Weekday availability is limited depending on staffing. Not available on weekends. Not available for those with frozen sperm. Check in location for sperm wash: the 2nd floor Urology/Andrology. The sperm wash takes 60-90 minutes. They will tell you what time to milk pickup driver the sample. Check in location for IUI: 3rd floor OB Specialties Desk. (You will have to milk pickup driver the sample from 2nd floor Urology and bring it with you.) [place]: [id number] [place] [address], [address] [place] [address] Available every day, including weekends and holidays (except Lauren and New Years.) Available for IUI using fresh and frozen samples. Check in location for sperm wash and IUI: [address] [facility]. The sperm wash takes 60-90 minutes. Weekend/Holiday [...] want to do another IUI: Call the hotel front desk agent to make sure you are financially cleared. Ask to speak to an NELLY to confirm your treatment plan. Important phone number: [phone] documented in this encounter [facility] 06-08-2023 History of Presen t illness Narrative [...] visit. Either the patient or their legal paper sales representative has been informed of the [...] in 2016 and a section in 2017 [facility] with. The was because of placenta previa at 37 weeks. She had no postoperative complications. After her delivery she had an IUD which had to be removed by hysteroscopy. She is otherwise healthy except for abnormal weight gain for which she has been prescribed Wegovy. She is a non-smoker. 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 documented in this encounter [facility] 03-16-2023 Hospital Discharg e instructions Patient Education 03/16/2023 16:12:49 Wrist Pain, Adult, Gpzv-zl-Tpvj Wrist Pain, Adult There are many things [...] to any changes in your symptoms. Take ahuw-qtw-maflnfz and prescription medicines only as told by [...] provider. Document Revised: 02/02/2020 Document Reviewed: 02/02/2020 [employer] Patient Education 2022 [employer] [facility] Evaluation + Plan note No data available for this section [facility] Evaluation note Diagnosis Procreative management counseling- Primary Other procreative management counseling and advice BMI 34.0-34.9,adult Body Mass Index 34.0-34.9, adult documented in this encounter [facility] note* Diagnosis Encounter for fertility planning- Primary Other specified procreative management Encounter for other genetic testing of female for procreative management documented in this encounter [facility] note* Diagnosis Treatment plan provided- Primary documented in this encounter [facility] note* Diagnosis Encounter for fertility planning- Primary Other specified procreative management documented in this encounter [facility] note* Diagnosis Procreation management investigation and testing- Primary Other investigation and testing for procreative management documented in this encounter [facility] note* Diagnosis Female infertility- Primary Female infertility of unspecified origin documented in this encounter [facility] note* Diagnosis Reproductive mgmt, infertility due to male factor- Primary Female infertility of other specified origin documented in this encounter [facility] note* Diagnosis Procreative management- Primary Unspecified procreative management documented in this encounter [facility] note* Diagnosis Female infertility- Primary Female infertility of unspecified origin documented in this encounter [facility] note* Diagnosis Encounter for artificial insemination- Primary Artificial insemination documented in this encounter [facility] note* Diagnosis Encounter for test, result positive- Primary examination or test, positive result documented in this encounter [facility] note* Diagnosis resulting from assisted reproductive technology in first trimester- Primary documented in this encounter [facility] note* Diagnosis resulting from assisted reproductive technology in first trimester documented in this encounter [facility] note* Diagnosis Treatment plan provided- Primary documented in this encounter [facility] note* Diagnosis Missed menses , unspecified gestational age Encounter for supervision of normal first in first trimester [facility] Diagnosis Infertility, female- Primary BMI 37.0-37.9, adult Morbid obesity ([facility]) Morbid obesity [facility] Diagnosis Well woman exam with routine gynecological exam Routine gynecological examination Screening, , for anatomic survey Encounter for anatomic survey Vaginal discharge Leukorrhea, not specified as infective STD exposure Second trimester state, incidental 16 weeks gestation of Mass of right breast, unspecified quadrant Neoplasm of unspecified behavior of breast Other acne [facility] Diagnosis Encounter for anatomic survey- Primary [facility] Diagnosis Encounter for anatomic survey- Primary Obesity affecting in second trimester, unspecified obesity type Class 1 obesity without serious comorbidity with body mass index (BMI) of 34.0 to 34.9 in adult, unspecified obesity type 23 weeks gestation of state, incidental [facility] Diagnosis Second trimester state, incidental 26 weeks gestation of Diabetes mellitus screening Screening for diabetes mellitus size inconsistent with dates documented in this encounter [facility]* Diagnosis Third trimester state, incidental 29 weeks gestation of documented in this encounter [facility]* Diagnosis Third trimester state, incidental 31 weeks gestation of documented in this encounter [facility]* Diagnosis Third trimester state, incidental 33 weeks gestation of Gestational diabetes mellitus (GDM), antepartum, gestational diabetes method of control unspecified [facility] Diagnosis 35 weeks gestation of Third trimester state, incidental Gastroesophageal reflux in [facility] No data available for this section [facility] No data available for this section [facility] Reason for referral (narrative)* Diagnostic Procedure Only (Routine) - Open Specialty Diagnoses / Procedures Referred By Jose L alcocer Referred To Contact [facility] Diagnoses resulting from assisted reproductive technology in first trimester Procedures OBSTETRIC ULTRASOUND WHI US PREG UTERUS AFTER 1ST TRIMEST GESTATION Andressa Abraham APRN.CNP [id number] [facility] [address] [place] [id number] [facility] [address] [place] [address] Referral ID Status Reason Start Date Expiration Date V isits Requested Visits Authorized [id number] Open Auto-Generate d Referral 01/20/2024 01/19/2025 1 1 [facility] for visit Narrative* Diagnostic Procedure Only (Routine) - Closed Specialty Diagnoses / Procedures Referred By Jose L alcocer Referred To Contact [facility] Diagnoses resulting from assisted reproductive technology in first trimester Procedures OBSTETRIC ULTRASOUND WHI US PREG UTERUS AFTER 1ST TRIMEST GESTATION Andressa Abraham DESIGN PAINTER.FRONT TENDER [id number] [facility] [address] [place] [address] [address] Referral ID Status Reason Start Date Expiration Date V isits Requested Visits Authorized [id number] Closed Auto-Generate d Referral 01/27/2024 03/29/2024 1 1 [facility]* Diagnostic Procedure Only (Routine) - Closed Specialty Diagnoses / Procedures Referred By Contac t Referred To Contact [facility] Diagnoses Encounter for anatomic survey Procedures OBSTETRIC ULTRASOUND WHI US PREG UTERUS AFTER 1ST TRIMEST GESTATION Tristan Gloria, DESIGN PAINTER.FRONT TENDER [address] [facility], [address] [place] [address] Phone: tel: fax: [address] [address] Referral ID Status Reason Start Date Expiration Date V isits Requested Visits Authorized [id number] Closed Auto-Generate d Referral 05/30/2024 03/29/2025 1 1 [facility] Summary Purpose Family History No Family History [...] Obstetrics and Gynecology Diagnoses Infertility, female Procedures [place] OFFICE/OUTPATIENT NEW HIGH MDM 60 MINUTES Karen Bolanos MD [address] [place] [address] Patsy Blanco, DO [address] [place] [address] [place] [address] Referral ID Status Reason Start Date Expiration Date Visits Requested Visits Authorized [id number] Pending Review Specialty Services Required 12/28/2023 06/25/2024 1 1 Additional Source Comments INFORMATION SOURCE (unrecogn ized section and content) DATE CREATED AUTHOR 09/21/2017 [facility] DATE CREATED AUTHOR AUTHOR'S ORGANIZ ATION 03/12/2021 [facility] DATE CREATED AUTHOR AUTHOR'S ORGANIZ ATION 03/16/2021 [facility] DATE CREATED AUTHOR AUTHOR'S ORGANIZ ATION 03/26/2022 [facility] DATE CREATED AUTHOR AUTHOR'S ORGANIZ ATION 02/29/2024 [facility] DATE CREATED AUTHOR AUTHOR'S ORGANIZ ATION 08/06/2024 [facility] DATE CREATED AUTHOR AUTHOR'S ORGANIZ ATION 08/26/2024 [facility] EPIC <item> Privacy Markings (unrecogniz ed section and content) Section Author: Smita Tello PROHIBITION ON REDISCLOSURE OF CONFIDENTIAL INFORMATION This notice accompanies a disclosure of information concerning a client made to you with the consent of such client. Patient Care team informatio n (unrecognized section and content) Aerospace Technician Relationship Specialty Start Date End Date Karen Bolanos MD [address] [place] [address] PCP - General Family Medicine 11/10/22 Karen Bolanos MD [address] [place] [address] PCP - [place] [employer] 12/28/22 Aerospace Technician Relationship Specialty Start Date End Date Karen Bolanos MD [address] [place] [address] PCP - General Family Medicine 11/10/22 Karen Bolanos MD [address] [place] [address] PCP - [place] [employer] 12/28/22 Aerospace Technician Relationship Specialty Start Date End Date Karen Bolanos MD [address] [place] [address] PCP - General [facility] Medicine 11/10/22 Aerospace Technician Relationship Specialty Start Date End Date Karen Bolanos MD [address] [place] [address] PCP - General Family Medicine 11/10/22 Aerospace Technician Relationship Specialty Start Date End Date Karen Bolanos MD [address] [place] [address] PCP - General [facility] Medicine 11/10/22 Karen Bolanos MD [address] [place] [address] PCP - [place] [employer] 12/28/22 Aerospace Technician Relationship Specialty Start Date End Date Karen Bolanos MD [address] [place] [address] PCP - General Family Medicine 11/10/22 Aerospace Technician Relationship Specialty Start Date End Date Karen Bolanos MD [address] [place] [address] PCP - General Family Medicine 11/10/22 Aerospace Technician Relationship Specialty Start Date End Date Karen Bolanos MD [address] [place] [address] PCP - [facility] 11/10/22 Aerospace Technician Relationship Specialty Start Date End Date Karen Bolanos MD [address] [place] [address] PCP - [facility] Medicine 11/10/22 Aerospace Technician Relationship Specialty Start Date End Date Karen Bolanos MD [address] [place] [address] PCP - [facility] 11/10/22 Aerospace Technician Relationship Specialty Start Date End Date Karen Bolanos MD [address] [place] [address] PCP - [facility] 11/10/22 Aerospace Technician Relationship Specialty Start Date End Date Karen Bolanos MD [address] [place] [address] PCP - [facility] 11/10/22 Aerospace Technician Relationship Specialty Start Date End Date Karen Bolanos MD [address] [place] [address] PCP - [facility] 11/10/22 Aerospace Technician Relationship Specialty Start Date End Date Karen Bolanos MD [address] [place] [address] PCP - [facility] 11/10/22 Aerospace Technician Relationship Specialty Start Date End Date Karen Bolanos MD [address] [place] [address] PCP - General Family Medicine 11/10/22 Aerospace Technician Relationship Specialty Start Date End Date Karen Bolanos MD [address] [place] [address] PCP - General Family Medicine 11/10/22 Source Comments (unrecognize d section and content) In the event this informatio n is protected by the Federal Confidentiality of Alcohol and Drug Abuse Patient Records regulations: The Federal rules restrict any use of the information to criminally investigate or prosecute any alcohol or drug abuse patient.[facility] FoundationIn the event this information is protected by the Federal Confidentiality of Alcohol and Drug Abuse Patient Records regulations: The Federal rules restrict any use of the information to criminally investigate or prosecute any alcohol or drug abuse patient.[facility] FoundationIn the event this information is protected by the Federal Confidentiality of Alcohol and Drug Abuse Patient Records regulations: The Federal rules restrict any use of the information to criminally investigate or prosecute any alcohol or drug abuse patient.[facility] FoundationIn the event this information is protected by the Federal Confidentiality of Alcohol and Drug Abuse Patient Records regulations: The Federal rules restrict any use of the information to criminally investigate or prosecute any alcohol or drug abuse patient.[facility] FoundationIn the event this information is protected by the Federal Confidentiality of Alcohol and Drug Abuse Patient Records regulations: The Federal rules restrict any use of the information to criminally investigate or prosecute any alcohol or drug abuse patient.[facility] FoundationIn the event this information is protected by the Federal Confidentiality of Alcohol and Drug Abuse Patient Records regulations: The Federal rules restrict any use of the information to criminally investigate or prosecute any alcohol or drug abuse patient.[facility] FoundationIn the event this information is protected by the Federal Confidentiality of Alcohol and Drug Abuse Patient Records regulations: The Federal rules restrict any use of the information to criminally investigate or prosecute any alcohol or drug abuse patient.[facility] FoundationIn the event this information is protected by the Federal Confidentiality of Alcohol and Drug Abuse Patient Records regulations: The Federal rules restrict any use of the information to criminally investigate or prosecute any alcohol or drug abuse patient.[facility] FoundationIn the event this information is protected by the Federal Confidentiality of Alcohol and Drug Abuse Patient Records regulations: The Federal rules restrict any use of the information to criminally investigate or prosecute any alcohol or drug abuse patient.[facility] FoundationIn the event this information is protected by the Federal Confidentiality of Alcohol and Drug Abuse Patient Records regulations: The Federal rules restrict any use of the information to criminally investigate or prosecute any alcohol or drug abuse patient.[facility] FoundationIn the event this information is protected by the Federal Confidentiality of Alcohol and Drug Abuse Patient Records regulations: The Federal rules restrict any use of the information to criminally investigate or prosecute any alcohol or drug abuse patient.[facility] FoundationIn the event this information is protected by the Federal Confidentiality of Alcohol and Drug Abuse Patient Records regulations: The Federal rules restrict any use of the information to criminally investigate or prosecute any alcohol or drug abuse patient.[facility] FoundationIn the event this information is protected by the Federal Confidentiality of Alcohol and Drug Abuse Patient Records regulations: The Federal rules restrict any use of the information to criminally investigate or prosecute any alcohol or drug abuse patient.[facility] FoundationIn the event this information is protected by the Federal Confidentiality of Alcohol and Drug Abuse Patient Records regulations: The Federal rules restrict any use of the information to criminally investigate or prosecute any alcohol or drug abuse patient.[facility] FoundationIn the event this information is protected by the Federal Confidentiality of Alcohol and Drug Abuse Patient Records regulations: The Federal rules restrict any use of the information to criminally investigate or prosecute any alcohol or drug abuse patient.[facility] FoundationIn the event this information is protected by the Federal Confidentiality of Alcohol and Drug Abuse Patient Records regulations: The Federal rules restrict any use of the information to criminally investigate or prosecute any alcohol or drug abuse patient.[facility] FoundationIn the event this information is protected by the Federal Confidentiality of Alcohol and Drug Abuse Patient Records regulations: The Federal rules restrict any use of the information to criminally investigate or prosecute any alcohol or drug abuse patient.[facility] FoundationIn the event this information is protected by the Federal Confidentiality of Alcohol and Drug Abuse Patient Records regulations: The Federal rules restrict any use of the information to criminally investigate or prosecute any alcohol or drug abuse patient.[facility] FoundationIn the event this information is protected by the Federal Confidentiality of Alcohol and Drug Abuse Patient Records regulations: The Federal rules restrict any use of the information to criminally investigate or prosecute any alcohol or drug abuse patient.[facility] FoundationIn the event this information is protected by the Federal Confidentiality of Alcohol and Drug Abuse Patient Records regulations: The Federal rules restrict any use of the information to criminally investigate or prosecute any alcohol or drug abuse patient.[facility] Reason for Visit (unrecogniz ed section and [...] EACH ALIQUOT ARTIFIC INSEMINATION INTRAUTERIN Andressa Abraham APRN.FRONT TENDER [address] [place] [address] Whshrala Nix [facility] [address] [place] [address] Referral ID Status Reason Start Date Expiration Date V isits Requested Visits Authorized [id number] Closed Financial Clearance Required - Self Pay [...] THAWING CRYOPRESERVED SPERM/SEMEN EACH ALIQUOT Andressa Abraham APRN.FRONT TENDER [address] [place] [address] Jaspal Nix [facility] [address] [place] [address] Referral ID Status Reason Start Date Expiration Date V isits Requested Visits Authorized [id number] Closed Patient Cleared - True Self-Pay required [...] BE BASED ON THE PRIMARY CLINICAL RECORDS. [employer] provides no warranty or guarantee of the accuracy or completeness of information in this document.
== END 2024-08-31 21:00 | disposition home or self-care (01) ==
LOC: LAB 20:59
PROVIDERS: PCP Student in an Organized Health Care Education/Training Program; Visit Provider Physician Assistant
DX: Z34.93 Encounter for supervision of normal pregnancy, unspecified, third trimester (principal)
CPT/HCPCS: 87081

== ENCOUNTER 2024-09-03 13:07 | Outpatient (OUT) | payer BC, SELFPAY ==
--- OUTSIDE RECORDS SUMMARY | 2024-08-23 14:40 | XMS_ITS | Encounter Summary ---
Author Organization [facility] Address [address] [place] [address] Care Team Providers Care Fiscal Accountant Name Role Phone Karen Bolanos MD Primary Care Provider [phone] Reason for Visit * Reason Comments Routine Visit Encounter Details Date Type Department Care Team (Late st Contact Info) Description 08/23/2024 2:40 PM EDT Routine [facility] [address] [facility] [place] [id number] Andrea Preito, [address] [facility] [address] [place], [place] [id number] 35 weeks gestation of ; Third trimester ; Gastroesophageal reflux in Social History Tobacco Use Types Packs/Day Years Used Date Smoking Tobacco: Never Smokeless Tobacco: Never Alcohol Use Standard Drinks/Week Comments Yes 0 (1 standard drink = 0.6 oz pure alcohol) 1-2 drinks less than monthly in the past year, Caffeine intake: 1-2 cups per day Estimated Date of Delivery Comme nts Yes 09/24/2024 Based on last me nstrual period of 12/19/2023 Sex and Gender Information Value Date Recorded Sex Assigned at Female 11/25/2022 10:05 AM EDT Legal Sex Female 7:17 PM EDT Gender Identity Female 06/11/2022 7:17 PM EDT Sexual Orientation Lesbian 01/12/2023 5: 14 PM EDT documented as of this encounter Last Filed Vital Signs Vital Sign Reading Time Taken Comments Blood Pressure 120/78 08/23/2024 3:07 PM EDT Pulse - - Temperature - - Respiratory Rate - - Oxygen Saturation - - Inhaled Oxygen Concentration - - Weight 102 kg (224 lb 1.9 oz) 08/23/2024 3:07 PM EDT Height - - Body Mass Index 39.7 12/28/2023 8:37 AM EDT documented in this encounter Progress Notes * Jocelyn Posadas LPN - 08/23/2024 2:40 PM EDT Reason for Appointment: Patient ID: Nelli Steward is a 34 y.o. female who presents for Routine Visit Patient presents today for Return OB appointment. MEDICATIONS Current Outpatient Medications Medication Instructions Alcohol Swabs (Alcohol Prep Pad) 70 % pads 1 Pad, Topical, Daily, Use four times daily to check FSBS. Blood Glucose Monitoring Suppl (Snapsheet Glucometer) w/Device kit 1 kit, Does not apply, Daily, Use four times daily to check FSBS. In the morning prior to breakfast & 1 hour after each meal for a total of 4times daily. clindamycin (Cleocin-T) 1 % lotion Topical, 2 times daily omeprazole (PRILOSEC) 20 mg, Oral, Daily before breakfast, Do not crush or chew. ALLERGIES No Known Allergies PROBLEMS Active Ambulatory Problems Diagnosis Date Noted Mild episode of recurrent major depressive disorder (HCC) ([facility]/HCC) 12/28/2023 Restless leg 12/28/2023 Resolved Ambulatory Problems [...] nursing note reviewed. Exam conducted with a silverware cleaner present. Vitals: Estimated body mass index is 39.7 kg/m?? as calculated from the following: Height as of 12/28/23: 5' 3 . Weight as of this encounter: 224 lb 1.9 oz. BP: 120/78 Patient's last menstrual period was 12/19/2023. ASSESSMENT & PLAN ICD-10-CM 1. 35 weeks gestation of Z3A.35 POCT urinalysis dipstick manually resulted 2. Third trimester Z34.93 POCT urinalysis dipstick manually resulted 3. Gastroesophageal reflux in O99.619 omeprazole (PriLOSEC) [address] capsule K21.9 Return OB: Patient presents today for a routine obstetrics appointment. Patient is currently 35w3d . Patient states she is doing well but has complaints of being tired due to current . Patient has verbalizes frequent movement. labor precautions was discussed/given and patient was instructed to perform kick counts three times a day. reviewed glucose log. 09/12/24 cs date Orders Placed This Encounter Procedures POCT urinalysis dipstick manually resulted Follow Up: Patient is to return to office in 1 week for routine OB appointment. Documented by Jocelyn Posadas LPN on behalf of: Andrea Prieto DO documented in this encounter Plan of Treatment Upcoming Encounters Date Type Department Care Team (Late st Contact Info) Description 09/07/2024 3:00 PM EDT Routine [facility] [address] [place] [address] Andrea Prieto DO [address] [facility] [place] [address] documented as of this encounter Goals Goal Patient Goal Type Associated Problems Recent Progress Patient-Stated? Author Reminders Care Plan OB Reminders No Open Scheduling, Background documented as of this encounter Procedures Procedure Name Priority Date/Time Associated Diagnosis Comments POCT URINALYSIS DIPSTICK Routine 08/23/2024 3:11 PM EDT 35 weeks gestation of Third trimester documented in this encounter Results * (ABNORMAL) POCT urinalysis dipstick manually resulted (08/23/2024 3:11 PM EDT) Color, UA Yellow Clarity, UA Clear Glucose, UA Negative Negative - 2000(110) ++++ mg/dL Bilirubin, UA Negative Negative - 4(70) +++ mg/dL Ketones, UA Negative Negative - 160(16) ++++ mg/dL Spec Grav, UA 1.015 1 - 1.03 Blood, UA Negative Negative - 50 Mukesh/mcL pH, UA 7.0 5 - 9 Protein, UA Negative Negative - 2000(20) ++++ mg/dL Urobilinogen, UA 0.2 0.2 - 12 mg/dL Leukocytes, UA Trace Negative - 500+++ Shannon/mcL Nitrite, UA Negative Negative - Positive Urine 08/23/2024 3:11 PM EDT us Andrea Conner DO POINT OF CARE TEST ENTER/EDIT OR DERABLES Final Result documented in this encounter Visit Diagnoses Diagnosis 35 weeks gestation of Third trimester state, incidental Gastroesophageal reflux in documented in this encounter Additional Health Concerns Active Problems Noted Date Diagnosed Date OB Reminders 03/28/2024 documented as of this encounter Care Teams Fiscal Accountant Relationship Specialty Start Date End Date Karen Bolanos MD [address] [place] [address] PCP - General Family Medicine 11/10/22 documented as of this encounter
--- OUTSIDE RECORDS SUMMARY | 2024-08-31 11:20 | XMS_ITS | Encounter Summary ---
Author Organization [facility] Address [address] [place] [address] Care Team Providers Care Executive Asst Name Role Phone Karen Bolanos MD Primary Care Provider [phone] Reason for Visit * Reason Comments Routine Visit Encounter Details Date Type Department Care Team (Late st Contact Info) Description 08/31/2024 11:20 AM EDT Routine [facility] [address] [facility] [place] [address] Karyna Craig PA [address] [facility] [place] [address] 36 weeks gestation of ; Third trimester [...] disorder (HCC) ([facility]/HCC) 12/28/2023 Restless leg 12/28/2023 Resolved Ambulatory Problems [...] Description 09/07/2024 3:00 PM EDT Routine [facility] OB [address] [place] [address] Andrea Prieto, DO [address] [place] [address] Scheduled Orders Name Type Priority Associated Diagnoses [...] documented as of this encounter Care Teams Executive Asst Relationship Specialty Start Date End Date Karen Bolanos MD [address] [place] [address] PCP - General Family Medicine 11/10/22 documented as of this encounter
--- NOTE | 2024-09-03 | US_ITS ---
[place] [id number] Patient Name: EDUAR CARPENTER MRN: [id number] date: 1990 Sex: F Assigned Patient Location: [facility] Current Patient Location: Accession/Order Number: [id number] Exam Date: 09/04/2024 09:38 Report Date: 09/04/2024 09:38 At the request of: NINA ALONSO DO Procedure: US OB BPP w non-stress Ultrasound biophysical profile HISTORY: Gestational diabetes Adequate breathing movement, gross body movement, tone and amniotic fluid volume for total score of 8 out of 8. The amniotic fluid index is 20.7cm within normal limits. The heart rate 145 bpm. US/US OB BPP w non-stress IMPRESSION: Adequate ultrasound biophysical profile Impression dictated by: Deepak Nava M.D. 09/04/2024 9:38 AM Dictation Location: [facility] Electronically authenticated by: [id number] Date: 09/04/2024 09:38
--- OUTSIDE RECORDS SUMMARY | 2024-09-03 13:09 | XMS_ITS | CCD ---
Author Organization [facility] Care Team Providers Care Freezer Assistant Name Role Phone BACEVICE, CHARLIE E Unavailable [...] Primary Care Physician Unavailable Primary Care Provider Unavailjulio cesar e Unavailable Primary Care Provider UnavailTIARRA Jimenez Attending Unavailable TIARRA KATZ Admitting Unavailable TIARRA KATZ Attending Unavailable TIARRA KATZ Attending Unavailable Karen Bolanos MD Primary Care Provider Karen Bolaons MD Unavailable Karen Bolanos MD Primary Care Provider JAARD, ANDRESSA G Referring Unavailable ANGELICAALECY Attending Unavailable [...] G Referring Unavailable CONNER, ANDREA Attending Unavailable CONNER, ANDREA Referring Unavailable CONNER, ANDREA Attending Unavailable CONNER, ANDREA Attending Unavailable DINA GERARD Attending Unavailable CONNER, ANDREA Attending Unavailable CONNER, ANDREA Attending Unavailable TROY, KARYNA Attending Unavailable LUIS MIGUEL, KAREN Crandall Attending Unavailable Medications Current Medications Medication Drug Class(es) Dates Sig (Normalized) Sig (Original) amoxicillin 80 mg/ml oral suspension (1 source) Penicillin-class Antibacterial Start: 02-28-2024 End: 03-09-2024 take 960 mg by mouth every twelve hours amoxicillin 400 mg/5 mL Oral Liq 960 mg = 12 mL, Oral, q12hr, X 10 day(s), # 240 mL, Refills(s) 0, Pharmacy: [id number], 158, cm, 02/28/24 9:01:00 EST, Height/Length Dosing, [...] Glucose Monitoring Suppl (D-Care Glucometer) w/Device kit (14 sources) Start: 07-12-2024 End: 08-31-2024 Blood Glucose Monitoring Suppl (D-Care Glucometer) w/Device kit Indications: Gestational diabetes mellitus (GDM), antepartum, gestational diabetes method of control unspecified , Elevated glucose tolerance test 1 kit Daily Use four times daily to check FSBS. In the morning prior to breakfast & 1 hour after each meal for a total of 4times daily. 1 kit 07/12/2024 08/31/2024 Discontinued Start: 07-12-2024 End: 07-12-2025 [address] Monitoring Sup [address] (D-Care Glucometer) w/Device kit Indications: Gestational diabetes mellitus [...] oral solution (1 source) alpha-Adrenergic Agonist, Uncompetitive V-mkbowa-Z-aspartate Receptor Antagonist, Sigma-1 Agonist Start: 03-11-2021 End: 03-20-2021 take 5 mL by mouth every four to six hours brompheniramine/pseudoephedrine/dextrome thorphan [id number]/5 mL oral syrup ; 5 milliliter(s) orally [...] tablet (1 source) Histamine-1 Receptor Antagonist Start: 03-11-2021 End: 03-31-2021 take 1 tablet by mouth once daily [...] topical lotion (20 sources) Lincosamide Antibacterial Start: 04-19-2024 End: 04-19-2025 clindamycin (Cleocin-T) 1 % lotion Indications: Other acne Apply topically 2 (two) times a day 60 mL 04/19/2024 08/31/2024 Discontinued Start: 06-15-2023 End: 06-14-2024 clindamycin (Clindagel) 1 [...] doctor. isopropyl alcohol 0.7 ml/ml medicated pad (14 sources) Start: 07-12-2024 End: 08-31-2024 Alcohol Swabs (Alcohol Prep Pad) 70 % pads Indications: Gestational diabetes mellitus (GDM), antepartum, gestational diabetes method of control unspecified , Elevated glucose tolerance test Apply 1 Pad topically Daily Use four times daily to check FSBS. 150 each 3 07/12/2024 08/31/2024 Discontinued mv-min/iron/folic/c alcium/vitK (WOMEN'S MULTIVITAMIN ORAL) (20 sources) mv-min/iron/foli c/ calcium/vitK (WOMEN'S MULTIVITAMIN ORAL) Take by mouth. Active mv-min/iron/foli c/calcium/vitK (WOMEN'S MULTIVITAMIN ORAL) Take by mouth. 0 Active Comment on above: Take by mouth. omeprazole 20 mg delayed release oral capsule (7 sources) Proton Pump Inhibitor Start: 08-24-19 End: 09-24-19 take 1 capsule by mouth before mealtime omeprazole (PriLOSEC) [address] capsule Indications: Gastroesophageal Reflux Disease , Heartburn Take 1 capsule (20 mg) by mouth in the morning. Take before meals. Do not crush or chew. 30 capsule 3 08/24/2024 09/23/2024 Active MV-Min-Fe Fum-FA-DHA ( 1 PO) (2 sources) MV-Min- Fe Fum-FA-DHA ( 1 PO) Take 1 tablet by mouth Daily Active vit/iron fum/folic ac ( 1 + [...] 0 Start Date: 05/29/12 Status: Ordered levonorgestrel 0.348052 mg/hr intrauterine system (14 sources) Progestin, Progestin-containi [...] 06-01-2024 Chronic Other and delivery including normal (18 sources) test positive; Translations: [Encounter for test, [...] [35 weeks gestation of ] 08-23-2024 Episodic Residual codes; unclassified (2 sources) Gestation period, 36 weeks; Translations: [36 weeks gestation of ] 08-31-2024 Episodic Unclassified (2 sources) Complete placenta previa [...] Range Facility Urinalysis macro (dipstick) panel (U)on 08-31-2024 Bilirubin, UA Negative Negative - 4(70) +++ mg/dL [facility] Blood, UA Negative Negative - 50 Mukesh/mcL [facility] Clarity, UA Cloudy [facility] Color, UA Dark Shereen [facility] Glucose, UA Negative Negative - 2000(110) ++++ mg/dL [facility] Interpretation and review of laboratory results Abnormal [facility] Ketones, UA Negative Negative - 160(16) ++++ mg/dL [facility] Leukocytes, UA Negative Negative - 500+++ Shannon/mcL [facility] Nitrite, UA Negative Negative - Positive [facility] pH, UA 6.5 5 - 9 [facility] Protein, UA Positive Negative - 2000(20) ++++ mg/dL [facility] Comment on above: 30 Spec Grav, UA 1.025 1 - 1.03 [facility] Urobilinogen, UA 1.0 0.2 - 12 mg/dL [facility] US OB BPP W NON-STRESS on 08-27-2024 [place] [address] Ultrasound Report Signed Patient: NELLI CARPENTER MR#: [id number] : 1990 Acct:[id number] Age/Sex: 34 / F ADM Date: 08/27/24 Loc: [place] [address]: Andrea Prieto D.O. Ordering Physician: Andrea Prieto D.O. Date of Service: 08/27/24 Procedure(s): US OB BPP w non-stress Accession Number(s): [id number] cc: Andrea Prieto D.O.; NORBERTO BOLANOS [address] [address] Patient Name: NELLI CARPENTER MRN: [id number] date: 1990 Sex: F Assigned Patient Location: [facility] Current Patient Location: [facility] Accession/Order Number: [id number] Exam Date: 08/27/2024 13:58 Report Date: 08/27/2024 [...] Nava M.D. 08/27/2024 2:00 PM Dictation Location: [employer] Electronically authenticated by: [id number] Y Date: 08/27/2024 14:00 Dictated By: Deepak Nava D.O. Signed By: 08/27/24 1402 DD/ 99 TD/TT: Serology Technician: [facility] Radiology, Radiologsharla summers MD - 08/27/2024 [place] [address] Ultrasound Report Signed Patient: NELLI CARPENTER MR#: [id number] : 1990 Acct:[id number] Age/Sex: 34 / F ADM Date: 08/27/24 Loc: [place] [address]: Andrea Prieto D.O. Ordering Physician: Andrea Prieto D.O. Date of Service: 08/27/24 Procedure(s): US OB BPP w non-stress Accession Number(s): [id number] cc: Andrea Prieto D.O.; NORBERTO BOLANOS [place] [id number] Patient Name: NELLI CARPENTER MRN: [facility]:[id number] date: 1990 Sex: F Assigned Patient Location: [facility] Current Patient Location: [facility] Accession/Order Number: [id number] Exam Date: 08/27/2024 13:58 Report Date: 08/27/2024 [...] Nava M.D. 08/27/2024 2:00 PM Dictation Location: [employer] Electronically authenticated by: [id number] Y Date: 08/27/2024 14:00 Dictated By: Deepak Nava D.O. Signed By: 08/27/24 1402 DD/ 1400 TD/TT: Serology Technician: [facility] Radiology Study observation (narrative) [facility] US OB BPP W NON-STRESS Ordered By: Radiologist Radiology on 08-27-2024 [facility] Work Phone: Urinalysis macro (dipstick) panel (U)on 08-23-2024 Bilirubin, UA Negative Negative - 4(70) +++ mg/dL [facility] Blood, UA Negative Negative - 50 Mukesh/mcL [facility] Clarity, UA Clear [facility] Color, UA Yellow [facility] Glucose, UA Negative Negative - 2000(110) ++++ mg/dL [facility] Interpretation and review of laboratory results Abnormal [facility] Ketones, UA Negative Negative - 160(16) ++++ mg/dL [facility] Leukocytes, UA Trace Negative - 500+++ Shannon/mcL [facility] Nitrite, UA Negative Negative - Positive [facility] pH, UA 7 5 - 9 [facility] Protein, UA Negative Negative - 2000(20) ++++ mg/dL [facility] Spec Grav, UA 1.015 1 - 1.03 [facility] Urobilinogen, UA 0.2 0.2 - 12 mg/dL [facility] US OB BPP W NON-STRESS on 08-14-2024 [place] [address] Ultrasound Report Signed Patient: NELLI CARPENTER MR#: [id number] : 1990 Acct:[id number] Age/Sex: 34 / F ADM Date: 08/13/24 Loc: US Attending Dr: Andrea Prieto D.O. Ordering Physician: Andrea Prieto D.O. Date of Service: 08/13/24 Procedure(s): US OB BPP w non-stress Accession Number(s): [id number] cc: Andrea Prieto D.O.; NORBERTO BOLANOS [place] [id number] Patient Name: NELLI CARPENTER MRN: [facility]:[id number] date: 1990 Sex: F Assigned Patient Location: US Current Patient Location: Accession/Order Number: [id number] Exam Date: 08/14/2024 08:54 Report Date: 08/14/2024 [...] Blake M.D. 08/14/2024 9:01 AM Dictation Location: [place] [address] Electronically authenticated by: [id number] Y Date: 08/14/2024 09:01 Dictated By: Gunnar Blake M.D. Signed By: 08/14/2404 DD/ 0 TD/TT: Serology Technician: [facility] Radiology, Radiologi MD melina - 08/14/2024 [place] [address] Ultrasound Report Signed Patient: NELLI CARPENTER MR#: [id number] : 1990 Acct:[id number] Age/Sex: 34 / F ADM Date: 08/13/24 Loc: US Attending Dr: Andrea Prieto D.O. Ordering Physician: Andrea Prieto D.O. Date of Service: 08/13/24 Procedure(s): US OB BPP w non-stress Accession Number(s): [id number] cc: Andrea Prieto D.O.; NORBERTO BOLANOS [place] [address] Patient Name: NELLI CARPENTER MRN: [id number] date: 1990 Sex: F Assigned Patient Location: US Current Patient Location: Accession/Order Number: [id number] Exam Date: 08/14/2024 08:54 Report Date: 08/14/2024 [...] Blake M.D. 08/14/2024 9:01 AM Dictation Location: [place] [address] Electronically authenticated by: [id number] Y Date: 08/14/2024 09:01 Dictated By: Gunnar Blake M.D. Signed By: 08/14/24903 DD/ 0 TD/TT: Serology Technician: [facility] Radiology Study observation (narrative) [facility] US OB BPP W NON-STRESS Ordered By: Radiologist Radiology on 08-14-2024 [facility] Work Phone: US OB GROWTHon 08-14-2024 [place] [address] Ultrasound Report Signed Patient: NELLI CARPENTER MR#: [id number] : 1990 Acct:[id number] Age/Sex: 34 / F ADM Date: 08/13/24 Loc: US Attending Dr: Andrea Prieto D.O. Ordering Physician: Andrea Prieto D.O. Date of Service: 08/13/24 Procedure(s): US OB growth Accession Number(s): [id number] cc: Andrea Prieto D.O.; NORBERTO BOLANOS [place] [address] Patient Name: NELLI CARPENTER MRN: [id number] date: 1990 Sex: F Assigned Patient Location: US Current Patient Location: Accession/Order Number: [id number] Exam Date: 08/14/2024 09:01 Report Date: 08/14/2024 [...] Blake M.D. 08/14/2024 9:06 AM Dictation Location: [place] [address] Electronically authenticated by: [id number] Y Date: 08/14/2024 09:06 Dictated By: Gunnar Blake M.D. Signed By: 08/14/24908 DD/ 5 TD/TT: Serology Technician: [facility] Radiology, Radiologi MD melina - 08/14/2024 [place] [address] Ultrasound Report Signed Patient: NELLI CARPENTER MR#: [id number] : 1990 Acct:[id number] Age/Sex: 34 / F ADM Date: 08/13/24 Loc: US Attending Dr: Andrea Prieto D.O. Ordering Physician: Andrea Prieto D.O. Date of Service: 08/13/24 Procedure(s): US OB growth Accession Number(s): [id number] cc: Andrea Prieto D.O.; NORBERTO BOLANOS [place] [id number] Patient Name: NELLI CARPENTER MRN: [facility]:[id number] date: 1990 Sex: F Assigned Patient Location: US Current Patient Location: Accession/Order Number: [id number] Exam Date: 08/14/2024 09:01 Report Date: 08/14/2024 [...] breathing movements: 2/2 Amniotic fluid volume: 2/2 US/ OB growth IMPRESSION: Single live IUP with an estimated gestational age of 36 weeks and 2 days with a normal heart rate. Biophysical profile score: 8/8 Impression dictated by: Gunnar Blake M.D. 08/14/2024 9:06 AM Dictation Location: [employer] Electronically authenticated by: [id number] Y Date: 08/14/2024 09:06 Dictated By: Gunnar Blake M.D. Signed By: 08/14/24908 DD/ 5 TD/TT: Serology Technician: [facility] Radiology Study observation (narrative) [facility] OB GROWTHOrdered By: Susan ologblanca Radiology on 08-14-2024 [facility] Work Phone: Urinalysis macro (dipstick) panel (U)on 08-08-2024 Bilirubin, UA Negative Negative - 4(70) +++ mg/dL [facility] Blood, UA Negative Negative - 50 Mukesh/mcL [facility] Clarity, UA Clear [facility] Color, UA Yellow [facility] Glucose, UA Negative Negative - 2000(110) ++++ mg/dL [facility] Interpretation and review of laboratory results Normal [facility] Ketones, UA Negative Negative - 160(16) ++++ mg/dL [facility] Leukocytes, UA Negative Negative - 500+++ Shannon/mcL [facility] Nitrite, UA Negative Negative - Positive [facility] pH, UA 7 5 - 9 [facility] Protein, UA Negative Negative - 2000(20) ++++ mg/dL [facility] Spec Grav, UA 1.02 1 - 1.03 [facility] Urobilinogen, UA 0.2 0.2 - 12 mg/dL [facility] Urinalysis macro (dipstick) panel (U)on 07-25-2024 Bilirubin, UA Negative Negative - 4(70) +++ mg/dL [facility] Blood, UA Negative Negative - 50 Mukesh/mcL [facility] Clarity, UA Clear [facility] Color, UA Yellow [facility] Glucose, UA Negative Negative - 1999(110) ++++ mg/dL [facility] Interpretation and review of laboratory results Abnormal [facility] Ketones, UA Negative Negative - 160(16) ++++ mg/dL [facility] Leukocytes, UA Negative Negative - 500+++ Shannon/mcL [facility] Nitrite, UA Negative Negative - Positive [facility] pH, UA 6.5 5 - 9 [facility] Protein, UA Negative Negative - 1999(20) ++++ mg/dL [facility] Spec Grav, UA 1.015 1 - 1.03 [facility] Urobilinogen, UA 1.0 0.2 - 12 mg/dL [facility] CNPNon 07-20-2024 CNP Telephone ([id number]) NELLI CARPENTER ([id number]) 1990 F Date Time Provider Department 07/20/24 HISTORICAL [id number] During your visit today, we recorded the following information about you: Jessy Lilly RN 07/20/2024 1:19 PM Signed Received outside referral from Dr. Prieto for GDM consult due to elevated 1 hour glucose 202. Called pt. To schedule appointment no answer, left message with call back phone number. BALJINDER Zaman Laura Lee 07/25/2024 11:57 AM Signed Nelli Carpenter called today. Caller's (home) [phone] (cell) Reason for call: Pt calling nurse back to be scheduled for GDM consult due to elevated 1 hour glucose 202. Jessy Zamora RN 08/04/2024 3:24 PM Addendum Outside referral received from Dr. Prieto for elevated 1 hour glucose 202. Pt. Has all testing supplies and has been checking BS periodically. Advised pt. To start checking 4 times daily and upload to [email or web address]. Will send day care home mother. Other med hx: asthma, placenta previa with previous OB History Gravida4 Para2 Term2 Preterm0 AB1 Living2 SAB1 IAB0 Ectopic0 Multiple0 Live Births2 2014- , vag MAB 2017- , c-sec placenta previa Current meds: PNV Last growth US 07/11, pt. Advised to schedule growth US every 4 weeks. Pt. Scheduled for SMA GDM class on 08/[address] Quintanilla. Jessy Lilly RN Records sent to medical records, and also available in [address]. Allergies As of Date: 07/20/2024 (No Known Allergies) Date Reviewed: 01/20/2024 Reviewed by: Andressa Abraham APRN.HEAD OF HISTORY - Fully Assessed Prescriptions as of 08/04/2024 - vit/iron fum/folic ac ( 1 + 1 ORAL) Take by mouth. - mv-min/iron/folic/calci um/vitK (WOMEN'S MULTIVITAMIN ORAL) Take by mouth. Problem List As Of Date 07/20/2024 Noted Resolved Complete placenta previa with hemorrhage, third*12/09/2016 06/01/2024 Encounter Status:Closed by JESSY LILLY on 07/20/24 Normal [facility] ALL CBC WITH AUTO DIFFon BASOPHILS ABSOLUTE AUTO 0 [facility] Basophils/100 WBC (Bld) 0.2 % 0.2 - 2.0 % [facility] Eosinophils/100 WBC (Bld) 0.6 % Low 0.9 - 7.0 % [facility] Erythrocyte distribution width (RBC) [Ratio] 13.2 % 11.0 - 15.0 % [facility] Hematocrit (Bld) [Volume fraction] 34 % Low 36.0 - 48.0 % [facility] Hemoglobin (Bld) [Mass/Vol] 11.1 g/dL Low 12.0 - 16.0 g/dL [facility] IMMATURE GRANULOCYTES ABS AUTO 0.15 High [facility] Immature granulocytes/100 WBC (Bld) 1.9 % High 0.0 - 0.5 % [facility] Interpretation and review of laboratory results Abnormal [facility] LYMPHOCYTES ABSOLUTE AUTO 1.5 [facility] Lymphocytes/100 WBC (Bld) 18.9 % Low 20.5 - 60.0 % [facility] MCH (RBC) [Entitic mass] 28.6 pg 26.7 - 34.0 pg [facility] MCHC (RBC) [Mass/Vol] 32.6 g/dL 29.9 - 35.2 g/dL [facility] MCV (RBC) [Entitic vol] 87.6 fL 81.0 - 99.0 fL [facility] MONOCYTES ABSOLUTE AUTO 0.4 [facility] Monocytes/100 WBC (Bld) 5.3 % 1.7 - 12.0 % [facility] NEUTROPHILS ABSOLUTE AUTO 5.9 [facility] Neutrophils/100 WBC (Bld) 73.1 % 43.0 - 75.0 % [facility] Platelet mean volume (Bld) [Entitic vol] 10.9 fL 9.5 - 13.5 fL [facility] TBH EO # 0.1 [facility] TB PLT 218 [facility] TB RBC 3.88 Low [facility] TBH WBC 8.1 [facility] Urinalysis macro (dipstick) panel (U)on 06-27-2024 Bilirubin, UA Negative Negative - 4(70) +++ mg/dL [facility] Blood, UA Negative Negative - 50 Mukesh/mcL [facility] Clarity, UA Clear [facility] Color, UA Light Yellow [facility] Glucose, UA Negative Negative - 1999(110) ++++ mg/dL [facility] Interpretation and review of laboratory results Normal [facility] Ketones, UA Negative Negative - 160(16) ++++ mg/dL [facility] Leukocytes, UA Negative Negative - 500+++ Shannon/mcL [facility] Nitrite, UA Negative Negative - Positive [facility] Comment on above: ` pH, UA 6 5 - 9 [facility] Protein, UA Negative Negative - 1999(20) ++++ mg/dL [facility] Spec Grav, UA 1.025 1 - 1.03 [facility] Urobilinogen, UA 1.0 0.2 - 12 mg/dL [facility] US OB FOLLOW UP TRANSABDOMIN AL [...] II, MD, PHD at 11-Jul-2024 11:47:38 PM [facility] Normal Not Available Comment on above: [...] 6 oz EFW by: Hadlock (HC-AC-FL) Extended Fuel Oil Clerk 4.7 mm CM 8.4 mm Nasal bone [...] normal LVOT view: normal 3-vessel view: normal 9-gmqlog-lzbnjru view: normal Heart / Thorax Situs: situs [...] Read By: Leonid Myers M.D. MATERNAL MEDICINE [facility] Radiology Study observation (narrative) [facility] US BREAST COMPLETE RIGHTo n 05-31-2024 US [...] GDLNon AGE GDLN ACOG TESTING Note . [facility] Comment on above: TESTS RESULT FLAG UN ITS REF RANGE LAB Clinician Provided Cytology Information Source.............Cervix Other.............. No. of containers..01 ThinPrep Vial Age Krystal STEEL Akua... 3065 FLAG LEGEND: L-Low Normal,H-High Normal,LL-Alert Low,HH-Alert High <-Panic Low,>-Panic High,A-Abnormal,AA-Critical Abnormal Performed at: 01 =[address] [address] Maribel Martin MD, HPV APTIMA Negative Negative [facility] Comment on above: This nucleic acid am plification test detects fourteen high- risk HPV types (16,18,31,33,35,39,45,51,52,56,58,59,66,68) without differentiation. Performed at: =[address] [id number] [employer]: Maribel Martin MD, Phone: [phone] Performed at: [address] [id number] [employer]: Maribel Martin MD, Phone: [phone] IGP, APTIMA HPV, RFX 16/18,45 Note . [facility] Comment on above: TESTS RESULT FLAG UN ITS REF RANGE LAB DIAGNOSIS: 02 NEGATIVE FOR INTRAEPITHELIAL LESION OR MALIGNANCY. Specimen adequacy: 02 Satisfactory for evaluation. No endocervical component is identified. An endocervical component is not commonly seen in the patient. Performed by: 02 [employer]ud [employer] Dope Mixer (ASCP) . 02 Note: Note 02 The [...] <-Panic Low,>-Panic High,A-Abnormal,AA-Critical Abnormal Performed at: [address] [address] Maribel Martin MD, SPATULA-ALONE CERVIX [facility] RECURRENT VAGINITIS (HTRX)on 04-20-2024 ATOPOBIUM VAGINAE 0 [facility] ATOPOBIUM VAGINAE Not detected [facility] BVAB 2,3 (BACTERIAL VAGINOSIS ASSOCIATED BACTERIA 2, 3); MOBILUNCUS SPP 0 [facility] BVAB 2,3 (BACTERIAL VAGINOSIS ASSOCIATED BACTERIA 2, 3); MOBILUNCUS SPP Not detected [facility] JOELLE ALBICANS, PARAPSILOSIS, TROPICALIS 0 [facility] Healthcare JOELLE ALBICANS, PARAPSILOSIS, TROPICALIS Not detected [facility] Healthcare JOELLE GLABRATA 0 [facility] Healthcare JOELLE GLABRATA Not detected [facility] JOELLE KRUSEI 0 [facility] Healthcare JOELLE KRUSEI Not detected [facility] Healthcare CHLAMYDIA TRACHOMATIS 0 [facility] CHLAMYDIA TRACHOMATIS Not detected [facility] GARDNERELLA VAGINALIS 0 [facility] GARDNERELLA VAGINALIS Not detected [facility] MEGASPHAERA (TYPES 1, 2) 0 [facility] MEGASPHAERA (TYPES 1, 2) Not detected [facility] MYCOPLASMA GENITALIUM 0 [facility] MYCOPLASMA GENITALIUM Not detected [facility] NEISSERIA GONORRHOEAE 0 [facility] NEISSERIA GONORRHOEAE Not detected [facility] TRICHOMONAS VAGINALIS 0 [facility] TRICHOMONAS VAGINALIS Not detected [facility] Urinalysis macro (dipstick) panel (U)on 04-19-2024 Bilirubin, UA Negative Negative - 4(70) +++ mg/dL [facility] Blood, UA Negative Negative - 50 Mukesh/mcL [facility] Clarity, UA Clear [facility] Color, UA Yellow [facility] Glucose, UA Negative Negative - 2000(110) ++++ mg/dL [facility] Interpretation and review of laboratory results Normal [facility] Ketones, UA Negative Negative - 160(16) ++++ mg/dL [facility] Leukocytes, UA Negative Negative - 500+++ Shannon/mcL [facility] Nitrite, UA Negative Negative - Positive [facility] pH, UA 7.5 5 - 9 [facility] [facility] Protein, UA Negative Negative - 1999(20) ++++ mg/dL [facility] Spec Grav, UA 1.015 1 - 1.03 [facility] Urobilinogen, UA 0.2 0.2 - 12 mg/dL [facility] ALL CBC WITH AUTO DIFFon BASOPHILS ABSOLUTE AUTO 0 [facility] Basophils/100 WBC (Bld) 0.4 % 0.2 - 2.0 % [facility] Eosinophils/100 WBC (Bld) 0.9 % 0.9 - 7.0 % [facility] Erythrocyte distribution width (RBC) [Ratio] 13.1 % 11.0 - 15.0 % [facility] Hematocrit (Bld) [Volume fraction] 36.9 % 36.0 - 48.0 % [facility] Hemoglobin (Bld) [Mass/Vol] 12.3 g/dL 12.0 - 16.0 g/dL [facility] IMMATURE GRANULOCYTES ABS AUTO 0.07 High [facility] Immature granulocytes/100 WBC (Bld) 1 % High 0.0 - 0.5 % [facility] Interpretation and review of laboratory results Abnormal [facility] LYMPHOCYTES ABSOLUTE AUTO 1.8 [facility] Lymphocytes/100 WBC (Bld) 25.9 % 20.5 - 60.0 % [facility] MCH (RBC) [Entitic mass] 29.9 pg 26.7 - 34.0 pg [facility] MCHC (RBC) [Mass/Vol] 33.3 g/dL 29.9 - 35.2 g/dL [facility] MCV (RBC) [Entitic vol] 89.6 fL 81.0 - 99.0 fL [facility] MONOCYTES ABSOLUTE AUTO 0.5 [facility] Monocytes/100 WBC (Bld) 6.4 % 1.7 - 12.0 % [facility] NEUTROPHILS ABSOLUTE AUTO 4.6 [facility] Neutrophils/100 WBC (Bld) 65.4 % 43.0 - 75.0 % [facility] Platelet mean volume (Bld) [Entitic vol] 12 fL 9.5 - 13.5 fL [facility] TBH EO # 0.1 [facility] TB PLT 169 [facility] RBC 4.12 Low [facility] TB WBC 7 [facility] CLINISYNC [facility] HCG ( test) Ql (U)o n 03-11-2024 Interpretation and review of laboratory results Abnormal [facility] Preg Test, Ur Positive Negative [facility] Urinalysis macro (dipstick) panel (U)on 03-11-2024 Bilirubin, UA Negative Negative - 4(70) +++ mg/dL [facility] Blood, UA Negative Negative - 50 Mukesh/mcL [facility] Clarity, UA Clear [facility] Color, UA Yellow [facility] Glucose, UA Negative Negative - 1999(110) ++++ mg/dL [facility] Interpretation and review of laboratory results Normal [facility] Ketones, UA Negative Negative - 160(16) ++++ mg/dL [facility] Leukocytes, UA Negative Negative - 500+++ Shannon/mcL [facility] Nitrite, UA Negative Negative - Positive [facility] pH, UA 7 5 - 9 [facility] Protein, UA Negative Negative - 1999(20) ++++ mg/dL [facility] Spec Grav, UA 1.02 1 - 1.03 [facility] Urobilinogen, UA 0.2 0.2 - 12 mg/dL [facility] Ambulatory Visit Summaryon 1 2-01-2024 Ambulatory Visit Summary Ambulatory Visit Summary NELLI CARPENTER :1990 Visit Date:02/28/2024 Ambulatory Visit Instructions Your Diagnosis Right otitis media with effusion Sinus congestion BMI 34.0-34.9,adult Your Care Team Attending Physician - MADALYN LOZADA, BELGRADE Primary Care Physician - Luis Miguel CANTU, [...] with effusion Duration: 10 Days Pickup at [facility] #[id number] Pharmacy Information [facility] #[id number]: [address], [place] [id number] [phone] Allergies No Known Allergies Problems Ongoing - [...] for choosing us for your care. Normal [facility] Family Medicine Office/Clini c Noteon 02-28-2024 Family Medicine Office/Clinic Note Family Medicine Office/Clinic Note Chief Complaint ear pain, cough, sore throat HPI Staff 33 year old female presents with bilateral ear pain- right is worse, cough, sore throat, mild head pressure, congestion symptoms began yesterday pt it 10 weeks History of Present Illness Reviewed and agree with above documented HPI by medical center representative. Portions of this record may have been created with voice recognition artificial intelligence software, specifically [employer], [employer] and or Check I'm Here. Substitutions may have occurred due to the inherent limitations of voice recognition and artificial intelligence software. Patient is a 33-year-old female who presents to [facility], for right ear pain, sinus congestion, [...] at this time. 33-year-old female presented to [facility], for right otitis media effusion, sinus [...] for amoxicillin, instructed she can only take qxir-ptb-ptwsyph Tylenol for body aches, headaches, and fevers since she is . Given a work excuse note. Follow-up with primary care provider as needed. 1. Right otitis media with effusion (H65.91: Unspecified nonsuppurative otitis media, right ear) See above Ordered: amoxicillin, 960 mg = 12 mL, Oral, q12hr, X 10 day(s), # 240 mL, Refills(s) 0, Pharmacy: [facility] #[id number], 158, cm, 02/28/24 9:01:00 EST, Height/Length Dosing, [...] management wi (more content not included)... Normal [facility] Comment on above: Result Comment: Elec tronically Signed By: MADALYN LOZADA, TIARRA\.br\Date and Time Signed: 02/28/24 09:58 EST Patient Letter FTon 2023 Patient Letter [facility] Patient Letter [facility] [address] [place] [address] February 28, 2024 NELLI CARPENTER [address] [place] [address] : 1990 Please excuse NELLI CARPENTER from work . Date and/or Time of Absence: From: 02/29/24 May return to work on: 03/01/24 Restrictions: None Comments: Please excuse due to an acute illness. Provider Signature: Tiarra Katz PA-C [address] [place] [address] [place] [address] [facility] CNNURSEon 02-09-2024 CNNURSE Nurse Visit (REIAV) NELLI CARPENTER ([id number]) 1990 F Date Time Provider Department 02/09/24 10:30 AM NURSE [facility] REJ REIAV During your visit today, we recorded the following information about you: Parth Clark MD 02/09/2024 11:28 AM Signed Scan Visit Patient here for scan. See imaging documentation. MD Diego Bajwa Lauren, NATURAL RESOURCE TECHNICIAN.HEAD OF HISTORY 02/09/2024 12:28 PM Signed Nelli Carpenter here [...] 2024 12:27 PM Referring Provider: ANDRESSA ABRAHAM [[id number]] Allergies As of Date: 02/09/2024 (No Known Allergies) Date Reviewed: 01/20/2024 Reviewed by: Andressa Abraham APRN.HEAD OF HISTORY - Fully Assessed Visit Diagnosis: resulting from assisted reproductive technology in first trimester [O09.811] Order(s):OBSTETRIC ULTRASOUND [facility] [[id number]] Order #: [id number]. #:[id number] WPOINTQty: 1 Prescriptions as of 02/09/2024 - vit/iron fum/folic ac ( 1 + 1 ORAL) Take by mouth. - mv-min/iron/folic/calci um/vitK (WOMEN'S MULTIVITAMIN ORAL) Take by mouth. Problem List As Of Date: 02/09/2024 (None) Encounter Status:Closed by PARTH CLARK on 02/09/24 Normal [facility] Examination level ultrasound on 02-09-2024 Indication Viability; IUI done on 01-02-24; obesity >30 Impression - Single, live, intrauterine . - An intrauterine gestational sac with a yolk sac and pole is present. - [place]hill rump length measurement is consistent with the [...] Read By: Parth Clark M.D. MATERNAL MEDICINE [facility] Radiology Study observation (narrative) [facility] B-HCG SerPl-aCncon 4 HCG.beta subunit Qn 2270.0 m[IU]/mL High <5.0 [facility] Comment on above: Order Comment: Speci men Type: BLOOD SPECIMENOrdering Facility: [facility] Address: [facility] [place] [address] Result Comment: NOBLE TITATIVE HCG NORMAL RANGES Weeks of Gestation (Weeks Since LMP) 3 Weeks (5.8-71.2 mIU/mL) 4 Weeks (9.5-750 mIU/mL) 5 Weeks (217-7138 mIU/mL) 6 Weeks (158-38574 mIU/mL) 7 Weeks (3697-967066 mIU/mL) 8 Weeks (16200-343982 mIU/mL) 9 Weeks (77839-343800 mIU/mL) 10 Weeks (28356-107150 mIU/mL) 12 Weeks (42639-061904 mIU/mL) Referenced to [facility]th [facility] Performed By: #### 2 1198-7 ####[facility] [id number] [place] [address] [place] B-HCG SerPl-aCncon 4 HCG.beta subunit Qn 792.1 m[IU]/mL High <5.0 [facility] Comment on above: Order Comment: Speci men Type: BLOOD SPECIMENOrdering Facility: [facility] Address: [address] [place] [address] Result Comment: NOBLE TITATIVE HCG NORMAL RANGES Weeks of Gestation (Weeks Since LMP) 3 Weeks (5.8-71.2 mIU/mL) 4 Weeks (9.5-750 mIU/mL) 5 Weeks (217-7138 mIU/mL) 6 Weeks (158-69145 mIU/mL) 7 Weeks (3697-524390 mIU/mL) 8 Weeks (60067-659546 mIU/mL) 9 Weeks (63364-828462 mIU/mL) 10 Weeks (89121-611579 mIU/mL) 12 Weeks (97794-408851 mIU/mL) Referenced to 4th [facility] Performed By: #### 2 1198-7 ####[facility] LABIA [id number] [address] [place] CNPNila 01-18-2024 LEXUSN Telephone (REIBJulio) NELLI [id number]) 1990 F Date Time Provider Department 01/18/24 ANDRESSA ABRAHAM During your visit today, we recorded the following information about you: Kayramandeeproman Bardales Destiny Rowena 01/18/2024 10:36 AM Signed Please call patient [...] Date Reviewed: 11/23/2023 Reviewed by: Andressa Abraham APRN.HEAD OF HISTORY - Fully Assessed Reason for Visit: +hpt 01/15 after an iui [Other] Primary Visit Diagnosis:Encounter for test, result positive [Z32.01] Order(s):HCG QUANTITATIVE [SQHCGQT] Order #: [id number] STANDING Prescriptions as of 01/18/2024 - vit/iron [...] Encounter Status:Closed by JESSI YOO on 01/18/24 [facility] CNOVon 01-02-2024 CNOV Office Visit (REIBD) NELLI CARPENTER ([id number]) 1990 F Date Time Provider Department 01/02/24 [...] Cycle Day: 15 Last menstrual period: 12/19/2023 [place] Protocol: UNIVERSAL PROTOCOL / SAFETY CHECKLIST Procedure [...] discussed with the Patient or Patient's Authorized Improvement Director. As applicable, any other physician, advance practice provider, medical student, or other health professional student that will be observing or involved in the sensitive examination for educational or training purposes was discussed with the Patient or Authorized Improvement Director. The Patient or Authorized Improvement Director has agreed to proceed with the sensitive examination. (Sensitive examination includes inspection and/or palpation of the breasts, pelvis, prostate and anorectal regions) Patient declined vessel slag worker. IUI IUI Date: 01/02/24 Partner's Name: Wanda [...] 01/02/2024 11:46 AM Signed IUI Xytex #: [id number] Washed frozen specimen Post: 122 m/ml, 63% Insem#: 34.7 million Referring Provider: ANDRESSA ABRAHAM [[id number]] Allergies As of Date: 01/02/2024 (No Known Allergies) Date Reviewed: 11/23/2023 Reviewed by: Andressa Abraham, NATURAL RESOURCE TECHNICIAN.HEAD OF HISTORY - Fully Assessed Primary Visit Diagnosis:Encounter for [...] Status:Closed by ANYI GANT on 01/02/24 Normal [facility] CNOV Office Visit (ANDRBE ) NELLI CARPENTER ([id number]) 1990 F Date Time Provider Department 01/02/24 10:30 [facility] During your visit today, we recorded the following information about you: Flavia Elizondo 01/02/2024 11:47 AM Signed Thaw for IUI Flavia Elizondo Referring Provider: ANDRESSA ABRAHAM [[id number]] Allergies As of Date: 01/02/2024 (No Known Allergies) Date Reviewed: 11/23/2023 Reviewed by: Andressa Abraham APRN.HEAD OF HISTORY - Fully Assessed Primary Visit Diagnosis:Procreative management [...] Status:Closed by FLAVIA ELIZONDO on 01/02/24 Normal [facility] CNOVon 12-05-2023 CNOV Office Visit (REIBD) NELLI CARPENTER ([id number]) 1990 F Date Time Provider Department 12/05/23 [...] Cycle Day: 15 Last menstrual period: 11/21/2023 [place] Protocol: UNIVERSAL PROTOCOL / SAFETY CHECKLIST Procedure [...] EMERGENT procedures): No specimen collected. Patient declined vessel slag worker. Uma Aguilera MD IUI IUI Date: 12/05/23 [...] after wash): 49 million Donor ID #: [id number] Cycle reviewed, all questions answered. Pt instructed to take a test in 17 days if no menses and call with results. SIGNATURE: Uma Aguilera MD PATIENT NAME: Nelli Carpenter DATE: December 05, 2023 TIME: 10:31 AM I was present and immediately available for the entire procedure. Patient underwent an intrauterine insemination. Myriam Dominguez MD, Stephanie Barnett 12/06/2023 8:45 AM Signed IUI Xytex #[id number] Frozen washed specimen Post: 145 Million/mL, 68% Insem #: 49 Million Referring Provider: ANDRESSA ABRAHAM [[id number]] Allergies As of Date: 12/05/2023 (No Known Allergies) Date Reviewed: 11/23/2023 Reviewed by: Andressa Abraham, NATURAL RESOURCE TECHNICIAN.HEAD OF HISTORY - Fully Assessed Primary Visit Diagnosis:Female infertility [...] Status:Closed by MYRIAM DOMINGUEZ on 12/06/23 Normal [facility] CNOV Office Visit (ANDRBE ) NELLI CARPENTER ([id number]) 1990 F Date Time Provider Department 12/05/23 9:30 AM ANDROLOGY PROPERTY ANALYST Z[facility]ID During your visit today, we recorded the following information about you: Stephanie Lara 12/05/2023 10:23 AM Signed Thaw for IUI Stephanie Lara Referring Provider: ANDRESSA ABRAHAM [[id number]] Allergies As of Date: 12/05/2023 (No Known [...] Status:Closed by STEPHANIE LARA on 12/05/23 Normal [facility] [id number] 11-23-2023 HNO ID: [id number] Author: ANDRESSA ABRAHAM APRN.CNP Service: ? Author [...] Comments: None Andressa Abraham APRN.CNP 11/23/2023 Normal [facility] Progesterone [Mass/Vol] 7.4 ng/mL Normal See comment [facility] Comment on above: Order Comment: Speci men Type: BLOOD SPECIMENOrdering Facility: [facility] Address: [address] [place] [address] Result Comment: Mens trual Cycle Progesterone Reference Ranges: Follicular: <1.0 ng/mL Ovulation: <12.1 ng/mL Luteal: 1.8 to 23.9 ng/mL. Progesterone Reference Ranges vary by gestational period: First Trimester: 11.0 to 44.3 ng/mL Second Trimester: 25.4 to 83.3 ng/mL Third Trimester: 58.7 to 214 ng/mL Post menopausal Progesterone: <0.5 ng/mL Reference: 1. Progesterone (Progesterone III) [package insert V 1.0 Ukrainian]. [facility], [place], [place]. December 2014. Performed By: #### 2 839-9 ####[facility] LABCLIA [id number] [facility] [id number] [place], [place] [id number] [facility] CNPNila 10-12-2023 CNPN Telephone (REIBD) NELLI CARPENTER ([id number]) 1990 F Date Time Provider Department 10/12/23 [...] Date Reviewed: 09/11/2023 Reviewed by: Andressa Abraham, WINDY.HEAD OF HISTORY - Fully Assessed Reason for Visit: +ovulation test SatANDSund d14 AND 15 partner calling [Other] Primary Visit Diagnosis:Female infertility [N97.9] Order(s):PROGESTERONE [SQPROG] Order #: [id number] FUTURE Prescriptions as of 10/12/2023 - vit/iron fum/folic ac ( 1 + 1 ORAL) Take by mouth. - mv-min/iron/folic/calci um/vitK (WOMEN'S MULTIVITAMIN ORAL) Take by mouth. - BIOTIN ORAL Take by mouth once daily. - levonorgestrel (MIRENA) 20 mcg/24 hr IUD 1 Each by INTRAUTERINE route one time only. Problem List As Of Date: 10/12/2023 (None) Encounter Status:Closed by JESSI YOO on 10/12/23 [facility] CNOVon 09-11-2023 CNOV Office Visit (REIBD) NELLI CARPENTER ([id number]) 1990 F Date Time Provider Department 09/11/23 8:00 AM ANDRESSA ABRAHAM During your visit today, we recorded the following information about you: Andressa Abraham APRN.HEAD OF HISTORY 09/15/2023 4:56 PM Signed REPRODUCTIVE ENDOCRINOLOGY AND [...] favorite donors - send to me via [email or web address] to confirm Confirmed best vial type to order: IUI/prewashed Will need to follow up to firm up treatment plan and review IUI scheduling instructions. Andressa Abraham APRN.HEAD OF HISTORY September 11, 2023 8:08 AM I spent a total of 50 minutes on the date of the service which included preparing to see the patient, wufh-vt-npen patient care, completing clinical documentation, obtaining and/or [...] to communic (more content not included)... Normal [facility] Ambulatory Visit Summaryon 1 05-17-2022 Ambulatory Visit Summary CHUCKY CARPENTERN Edgar :1990 Visit Date:03/16/2023 Ambulatory Visit Instructions Your [...] choosing us for your care. Normal [facility] Family Medicine Office/Clini c Noteon 03-16-2023 [...] data available Patient Education Wrist Pain, Adult, Agbd-aa-Fxnj Problem List/Past Medical History Ongoing Acute sinusitis [...] any changes in your symptoms. ? Take khri-iws-btczmsk and prescription medicines only as told by [...] provider. Document Revised: 02/02/2020 Document Reviewed: 02/02/2020 [employer] Patient Education ? 2022 [employer] [facility] XR Wrist 3+ Views Righton XR [...] Technologist: JUAN DAVID Technical Comments Radiation Dose: Pamelar in mGy = . DAP = . Normal [facility] Covid 19 Resultson 1 SARS-CoV-2 (COVID-19) [...] You may also be contacted by the [facility] to see if any of [...] or Naproxen (Aleve) can also be used. Agxf-mma-uqchjfu cough and cold medicines can be used according to the instructions on the package. Some kuko-fet-hibizrb medicines also contain acetaminophen. Make sure you [...] water are not available, use alcohol-based hand machine grinder. Avoid touching your eyes, nose, and mouth [...] 24 de (more content not included)... Normal [facility] INFLUENZA A/B, COVID 2019 PC R,SYMPTOMATICon 03-12-2021 INFLUENZA A, PCR Not detected Normal Not Detected [facility] Comment on above: Result Comment: Resp iratory virus testing is performed routinely by PCR for Influenza A/B and RSV. If Influenza and RSV PCR are negative, testing for parainfluenza 1,2,3 viruses and adenovirus is routinely performed for oncology inpatients and intensive care unit patients at [facility] and is available on request on other patients by calling Laboratory Client Services at [phone]. Not Detected results do not preclude Influenza A/B or RSV infections since the adequacy of sample collection or low viral burden may impact the clinical sensitivity of this test method. Performed By: #### C OINP #### [facility] [address] [place] [address] INFLUENZA B, PCR Not detected Normal Not Detected [facility] Comment on above: Result Comment: Resp iratory virus testing is performed routinely by PCR for Influenza A/B and RSV. If Influenza and RSV PCR are negative, testing for parainfluenza 1,2,3 viruses and adenovirus is routinely performed for oncology inpatients and intensive care unit patients at [facility] and is available on request on other patients by calling Laboratory Client Services at [phone] Not Detected results do not preclude Influenza [...] by the Microbiology Laboratory, Department of Pathology, [facility], [place], [place]. It has not been cleared or approved by the US Food and Drug Administration; however, FDA clearance or approval is not currently required for clinical use. This test should not be regarded as investigational or for research purposes. Performed By: #### C OI #### [facility] [address] [place] [address] SARS-CoV-2 (COVID-19) RNA PENNY+probe Ql (Unsp spec) Not detected Normal Not Detected [facility] Comment on above: Result Comment: . [...] patient management decisions. Fact sheet for providers: https://www.fda.gov/media/740032/download Fact sheet for patients: https://www.fda.gov/media/484269/download This test has received FDA Emergency Use Authorization (EUA) and has been verified by [facility] ([facility]). This test is only authorized for the duration of time that circumstances exist to justify the authorization of the emergency use of in vitro diagnostic tests for the detection of SARS-CoV-2 virus and/or diagnosis of COVID-19 infection under section 564(b)(1) of the Act, 21 U.S.C. 360bbb-3(b)(1), unless the authorization is terminated or revoked sooner. [facility] is certified under CLIA-88 as qualified to perform high complexity testing. Testing is performed in the [facility] laboratories located at [address] [place] [address]. Performed By: #### C OINP #### [facility] [address] [place] [address] INFLUENZA A/B, COVID 2019 PC R,SYMPTOMATICon 03-11-2021 DATE OF SYMPTOM ONSET [YYYYMMDD]? [id number] Normal [facility] Comment on above: Performed By: #### C OINP #### [facility] [address] [facility] [place] [address] Lab Specimen Source Nasal, Nasopharyngeal Normal [facility] Comment on above: Performed By: #### C OINP #### [facility] [id number] [place], [place] [address] [place] [address] Provider Note - ED v2on 02-27 Provider [...] a day Drug Name: brompheniramine/pseudoe phedrine/dextromethorph an 2gi-03rk-28le/5 mL oral syrup Instructions: 5 milliliter(s) orally every 4 to 6 hours, As Needed Drug Name: cetirizine 10 mg oral tablet Instructions: 1 tab(s) orally once a day SIGNIFICANT EVENTS: Other Description:NO SURGICAL HISTORY THIS YEAR Additional Notes:02/2021 Description:NON SMOKER Additional Notes:02/2021 Past Medical History Description:NO CHRONIC HEALTH ISSUES Additional Notes:02/2021 KILN SETTER: Is : no Is : no REVIEW [...] SIGNS: T PRBP SpO2O2(LPM) %FiO2 Method 11-Mar-2021 10:17:[id number]/67 97 PHYSICAL EXAM CONSTITUTIONAL: Appearance: well appearing [...] Electronic Signatures for Addendum Section: Filomena Zamora (NATURAL RESOURCE TECHNICIAN-HEAD OF HISTORY) (Signed Addendum 12-Mar-2021 09:58) Left message for call back regarding test results for pt, and her 2 daughters. Filomena Zamroa (NATURAL RESOURCE TECHNICIAN-HEAD OF HISTORY) (Signed Addendum 12-Mar-2021 13:53) Spoke with patient and advised her of negative Covid test results, patien (more content not included)... Normal [facility] Hemoglobin and Hematocriton 12-10-2016 Hematocrit (HCT) 30.2 % Low 36.5-46.6 [facility] Comment on above: Performed By: #### 2 [id number] ####[facility] [address] [place] [address] Hemoglobin mass conc (Bld) 9.8 g/dL Low 11.8-15.3 [facility] Comment on above: Performed By: #### 2 [id number] ####[facility] [address] [place] [address] CBC With Differentialon 11-28 Basophils Auto #/vol (Bld) 0.05 10*3/uL Normal 0.01-0.07 [facility] Comment on above: Performed By: #### 2 [id number] ####[facility] [address] [place] [address] Basophils/100 WBC Auto (Bld) 0.5 % Normal 0.1-1.2 [facility] Comment on above: Performed By: #### 2 736162 ####[facility] [address] [place] [address] Eosinophils 0.08 10*3/uL Normal 0.04-0.50 [facility] Comment on above: Performed By: #### 2 139376 ####[facility] [address] [place] [address] Eosinophils/100 leukocytes 0.7 % Normal 0.0-8.1 [facility] Comment on above: Performed By: #### 2 710409 ####[facility] [address] [place] [address] Erythrocyte distribution width Auto Ratio (RBC) 14.8 % Normal 12.0-15.4 [facility] Comment on above: Performed By: #### 2 [id number] ####[facility] [address] [place] [address] Erythrocytes (RBC) 0.0 /100{WBCs} Normal [facility] Comment on above: Performed By: #### 2 [id number] ####[facility] [address] [place] [address] Erythrocytes (RBC) 3.87 10*6/uL Normal 3.85-5.10 [facility] Comment on above: Performed By: #### 2 [id number] ####[facility] [address] [place] [address] Erythrocytes (RBC) 0.00 10*3/uL Normal [facility] Comment on above: Performed By: #### 2 [id number] ####[facility] [address] [place] [address] Hematocrit (HCT) 34.5 % Low 36.5-46.6 [facility] Comment on above: Performed By: #### 2 [id number] ####[facility] [address] [place] [address] Hemoglobin mass conc (Bld) 11.4 g/dL Low 11.8-15.3 [facility] Comment on above: Performed By: #### 2 [id number] ####[facility] [address] [place] [address] Imm Grans Absolute 0.55 10*3/uL High 0.00-0.21 [facility] Comment on above: Performed By: #### 2 [id number] ####[facility] [address] [place] [address] Immature granulocytes #/vol (Bld) 5.0 % Normal [facility] Comment on above: Performed By: #### 2 [id number] ####[facility] [address] [place] [address] Lymphocytes 1.91 10*3/uL Normal 0.40-2.84 [facility] Comment on above: Performed By: #### 2 [id number] ####[facility] [address] [place] [address] Lymphocytes/100 leukocytes 17.2 % Normal 15.7-50.5 [facility] Comment on above: Performed By: #### 2 [id number] ####[facility] [address] [place] [address] MCH 29.5 pg Normal 27.5-33.0 [facility] Comment on above: Performed By: #### 2 [id number] ####[facility] [address] [place] [address] MCHC mass conc (RBC) 33.0 g/dL Normal 30.1-35.0 [facility] Comment on above: Performed By: #### 2 [id number] ####[facility] [address] [place] [address] MCV 89.1 fL Normal 85.4-100.0 [facility] Comment on above: Performed By: #### 2 [id number] ####[facility] [address] [place] [address] Monocytes 0.84 10*3/uL High 0.25-0.83 [facility] Comment on above: Performed By: #### 2 [id number] ####[facility] [address] [place] [address] Monocytes/100 leukocytes 7.6 % Normal 4.8-12.7 [facility] Comment on above: Performed By: #### 2 [id number] ####[facility] [address] [place] [address] Neutrophils 7.66 10*3/uL High 1.95-6.85 [facility] are Comment on above: Performed By: #### 2 [id number] ####[facility] [address] [place] [address] Neutrophils/100 leukocytes 69.0 % Normal 36.8-73.2 [facility] Comment on above: Performed By: #### 2 [id number] ####[facility] [address] [place] [address] Platelet mean volume (PMV) 10.7 fL Normal 9.9-12.1 [facility] Comment on above: Performed By: #### 2 [id number] ####[facility] [address] [place] [address] Platelets 197 10*3/uL Normal 155-404 [facility] e Comment on above: Performed By: #### 2 [id number] ####[facility] [address] [place] [address] RDW SD 48.2 fL Normal 39.3-48.6 [facility] Comment on above: Performed By: #### 2 [id number] ####[facility] [address] [place] [address] WBC (Leukocytes) 11.1 10*3/uL High 4.4-9.9 [facility] Comment on above: Performed By: #### 2 [id number] ####[facility] [address] [place] [address] Pathology ([facility])on 12-09-2016 Pathology ([facility]) FINAL SURGICAL PATHOLOGY [id number] FINAL DIAGNOSISPLACENTA-THIRD TRIMESTER PLACENTA WITH ACCESSORY LOBE , 470 GRAMS.FOCAL FIBRIN PLAQUE FORMATION.FOCAL DYSTROPHIC MICROCALCIFICATIONS.THR EE-VESSEL UMBILICAL CORD, NEGATIVE FOR FUNISITIS. MEMBRANES, NEGATIVE FOR CHORIOAMNIONITIS.CLINIC AL HISTORY: 38 WEEKS INTRAUTERINE , HISTORY OF PREVIA WITH BLEEDINGOPERATION:PRIMA RY SECTIONSPECIMEN(S):(A) PLACENTA, THIRD TRIMESTERPerformed at [facility], [address], [place] [address]XKE[place] DESCRIPTION:Received fresh, labeled with the patient's name, [...] are intact and range from0.05-0.1 cm in diameter.Improvement Director sections of cord, membranes, and placenta are submitted in sixcassettes.TASSummary of cassettes:A1 - cordA2, A3 - membranesA4, A5, A6 - veterans employment representative sections of placentaSigned Out by:ANABEL PITTMANeported: 12/11/2016 Normal [facility] Comment on above: Performed By: #### S UR ####[facility] [address] [place] [address] Red Blood Cellson 12-09-2016 Erythrocytes (RBC) Normal [facility] Comment on above: Result Comment: [id number] released Performed By: #### R C ####[facility] (UNKNOWN)[address] [address] Type and Screenon 12-09-2016 Antibody Screen Negative Normal [facility] Comment on above: Performed By: #### T S3 ####[facility] [address] [place] [address] Group and Rh Positive [facility] Comment on above: Performed By: #### T S3 ####[facility] [address] [place] [address] PREG COMPL ECHO W/O NIKKI ALIZA Cheryl 12-03-2016 PREG COMPL ECHO W/O NIKKI SURVEY [...] closed with length of 3.3 cm. Normal [facility] Culture Urineon 11-06-2016 Culture Urine STATUS: FINAL REPORT SITE: SOURCE: Urine Culture Urine: <1,000 cfu/ml--No growth Normal [facility] Comment on above: Performed By: #### 6 [id number] ####[facility] [address] [place] [address] Vital Signs Date Time Vital Sign Value Performing Clinician Facility 08-31-2024 11:53-0400 Body mass index (BMI) [Ratio] 39.86 kg/m2 Karyna BENITES Work Phone: [facility] 08-31-2024 11:53-0400 Body weight 102.06 kg Karyna BENITES Work Phone: [facility] 08-31-2024 11:53-0400 Diastolic blood pressure 70 mm[Hg] Karyna BENITES Work Phone: [facility] 08-31-2024 11:53-0400 Systolic blood pressure 120 mm[Hg] Karyna BENITES Work Phone: [facility] 08-23-2024 15:07-0400 Body mass index (BMI) [Ratio] 39.7 kg/m2 Andrea Conner DO Work Phone: [facility] 08-23-2024 15:07-0400 Body weight 101.66 kg Andrea Conner DO Work Phone: [facility] 08-23-2024 15:07-0400 Diastolic blood pressure 78 mm[Hg] Andrea Conner DO Work Phone: [facility] 08-23-2024 15:07-0400 Systolic blood pressure 120 mm[Hg] Andrea Conner DO Work Phone: [facility] 08-08-2024 14:32-0400 Body mass index (BMI) [Ratio] 39.33 kg/m2 Andrea Conner DO Work Phone: [facility] 08-08-2024 14:32-0400 Body weight 100.7 kg Andrea Conner DO Work Phone: [facility] 08-08-2024 14:32-0400 Diastolic blood pressure 78 mm[Hg] Andrea Conner DO Work Phone: [facility] 08-08-2024 14:32-0400 Systolic blood pressure 122 mm[Hg] Andrea Conner DO Work Phone: [facility] 07-25-2024 11:01-0400 Body mass index (BMI) [Ratio] 39.55 kg/m2 Dina Moustapha DEVULCANIZER CHARGER Work Phone: [facility] 07-25-2024 11:01-0400 Body weight 101.27 kg Dina Moustapha DEVULCANIZER CHARGER Work Phone: [facility] 07-25-2024 11:01-0400 Diastolic blood pressure 80 mm[Hg] Dina Moustapha DEVULCANIZER CHARGER Work Phone: [facility] 07-25-2024 11:01-0400 Systolic blood pressure 116 mm[Hg] Dina Moustapha DEVULCANIZER CHARGER Work Phone: [facility] 07-11-2024 11:22-0400 Body mass index (BMI) [Ratio] 39.37 kg/m2 Andrea Conner DO Work Phone: [facility] 07-11-2024 11:22-0400 Body weight 100.81 kg Andrea Conner DO Work Phone: [facility] 07-11-2024 11:22-0400 Diastolic blood pressure 80 mm[Hg] Andrea Conner DO Work Phone: [facility] 07-11-2024 11:22-0400 Systolic blood pressure 120 mm[Hg] Andrea Conner DO Work Phone: [facility] 06-22-2024 13:40-0400 Body mass index (BMI) [Ratio] 39.33 kg/m2 Andrea Conner DO Work Phone: [facility] 06-22-2024 13:40-0400 Body weight 100.7 kg Andrea Conner DO Work Phone: [facility] 06-22-2024 13:40-0400 Diastolic blood pressure 74 mm[Hg] Andrea Conner DO Work Phone: [facility] 06-22-2024 13:40-0400 Systolic blood pressure 118 mm[Hg] Andrea Conner DO Work Phone: [facility] 04-19-2024 10:48-0500 Body mass index (BMI) [Ratio] 37.2 kg/m2 Andrea Conner DO Work Phone: [facility] 04-19-2024 10:48-0500 Body weight 95.25 kg Andrea Conner DO Work Phone: [facility] 04-19-2024 10:48-0500 Diastolic blood pressure 80 mm[Hg] Andrea Conner DO Work Phone: [facility] 04-19-2024 10:48-0500 Systolic blood pressure 122 mm[Hg] Andrea Conner DO Work Phone: [facility] 02-28-2024 09:00-0500 Blood Pressure Location TIARRA MARXTIZ [facility] 02-28-2024 09:00-0500 Body temperature 98.96 [degF] BELGRADE KATZ [facility] 02-28-2024 09:00-0500 Diastolic blood pressure 80 mm[Hg] BELGRADE KATZ [facility] 02-28-2024 09:00-0500 Heart rate 92 /min BELGRADE KATZ [facility] 02-28-2024 09:00-0500 SaO2% (BldA) [Mass fraction] 98 % BELGRADE KATZ [facility] 02-28-2024 09:00-0500 Systolic blood pressure 124 mm[Hg] TIARRA KATZ [facility] 12-28-2023 08:37-0400 Body height 160 cm Karen Bolanos MD Work Phone: [facility] 12-28-2023 08:37-0400 Body mass index (BMI) [Ratio] 37.02 kg/m2 Karen Bolanos MD Work Phone: [facility] 12-28-2023 08:37-0400 Body temperature 98.6 [degF] Karen Bolanos MD Work Phone: [facility] 12-28-2023 08:37-0400 Body weight 94.8 kg Karen Bolanos MD Work Phone: [facility] 12-28-2023 08:37-0400 Diastolic blood pressure 78 mm[Hg] Karen Bolanos MD Work Phone: [facility] 12-28-2023 08:37-0400 Heart rate 76 /min Karen Bolanos MD Work Phone: [facility] 12-28-2023 08:37-0400 SaO2% (BldA) [Mass fraction] 98 % Karen Bolanos MD Work Phone: [facility] 12-28-2023 08:37-0400 Systolic blood pressure 116 mm[Hg] Karen Bolanos MD Work Phone: [facility] 06-08-2023 09:50-0400 Body height 160 cm Rahul Zheng MD Work Phone: [facility] 06-08-2023 09:50-0400 Body weight 89 kg Rahul Zheng MD Work Phone: [facility] 06-08-2023 09:50-0400 Diastolic blood pressure 83 mm[Hg] Rahul Zheng MD Work Phone: [facility] 06-08-2023 09:50-0400 Systolic blood pressure 132 mm[Hg] Rahul Zheng MD Work Phone: [facility] 03-16-2023 15:08-0500 [facility] 03-16-2023 15:08-0500 Body temperature 98.42 [degF] TIARRA KATZ [facility] 03-16-2023 15:08-0500 Diastolic blood pressure 84 mm[Hg] TIARRA KATZ [facility] 03-16-2023 15:08-0500 Heart rate 73 /min BELGRADE KATZ [facility] 03-16-2023 15:08-0500 SaO2% (BldA) [Mass fraction] 96 % [facility] 03-16-2023 15:08-0500 Systolic blood pressure 128 mm[Hg] BELGRADE KATZ [facility] 03-11-2021 12:17-0500 Body height 160 cm Karen Luis Miguel Other Phone: [facility] 03-11-2021 12:17-0500 Body temperature 98.06 [degF] Karen Luis Miguel Other Phone: [facility] 03-11-2021 12:17-0500 Diastolic blood pressure 67 mm[Hg] Karen Luis Miguel Other Phone: [facility] 03-11-2021 12:17-0500 Heart rate 78 /min Karen Luis Miguel Other Phone: [facility] 03-11-2021 12:17-0500 Respiratory rate 20 /min Karen Luis Miguel Other Phone: [facility] 03-11-2021 12:17-0500 SaO2% (BldA) [Mass fraction] 97 % Karen Luis Miguel Other Phone: [facility] 03-11-2021 12:17-0500 Systolic blood pressure 101 mm[Hg] Karen Luis Miguel Other Phone: [facility] Encounters Encounter Date Encounter Type Care Provider Facility Start: 08-31-2024 End: 08-31-2024 ambulatory KARYNA CRAIG Not Available Start: 08-31-2024 End: 08-31-2024 flow sheet Karyna Craig PA Work Phone: [facility] Comment on above: 36 weeks gestation o f ; Third trimester Start: 08-27-2024 End: 08-27-2024 Clinisync Result Encounter [...] 07-25-2024 End: 07-25-2024 Bamboo flowsheet Dina Moustapha DEVULCANIZER CHARGER Work Phone: [facility] Start: 07-25-2024 End: 07-25-2024 Bamboo flowsheet Dina Moustapha DEVULCANIZER CHARGER Work Phone: [facility] Start: 07-25-2024 End: 07-25-2024 flow sheet Dina Moustapha DEVULCANIZER CHARGER Work Phone: [facility] Comment on [...] Start: 06-01-2024 End: 06-01-2024 ambulatory TRISTAN SOSA Facility:[facility] Start: 06-01-2024 End: 06-01-2024 Patient encounter procedure Whi Tech 3 Brokerage Purchase And Sale Clerk [facility] Comment on above: Encounter for anatomic survey (Primary Dx); Obesity affecting in second trimester, unspecified obesity type; Class 1 obesity without serious comorbidity with body mass index (BMI) of 34.0 to 34.9 in adult, unspecified obesity type; 23 weeks gestation of Start: 05-31-2024 End: 05-31-2024 ambulatory ANDREA CONNER Not Available Start: 05-27-2024 End: 05-27-2024 Transcribe Orders Brokerage Purchase And Sale Clerk Transcribe Provider Maternal Medicine Comment on above: [...] 04-19-2024 End: 04-19-2024 Patient encounter procedure Andrea Escobedoo DO Work Phone: [facility] Start: 04-19-2024 End: 04-19-2024 Periodic preventive med est patient 18-39 yrs Andreastephane Escobedoo DO Work Phone: [facility] Comment on above: Well woman exam with routine gynecological exam; Screening, , for anatomic survey; Vaginal discharge; STD exposure; Second trimester ; 16 weeks gestation of ; Mass of right breast, unspecified quadrant; Neoplasm of unspecified behavior of breast; Other acne Start: 04-19-2024 End: 04-19-2024 ambulatory ANDREA CONNER Not Available Start: 03-14-2024 End: 03-14-2024 Clinisync Result Encounter Andreastephane Escobedoo DO Work Phone: [facility] Unsolicited Start: 03-14-2024 End: 03-14-2024 Clinisync Result Encounter Andreastephane Escobedoo DO Work Phone: [facility] Unsolicited Start: 03-11-2024 End: 03-11-2024 Office outpatient visit 5 minutes [facility] Conner Nurse [facility] Comment on above: GA: 11w6d Start: 03-11-2024 End: 03-11-2024 ambulatory ANDREA CONNER Not Available Start: 02-28-2024 End: 02-28-2024 ambulatory [facility] Facility:[facility] Start: 02-28-2024 End: 02-28-2024 Patient encounter procedure [facility] Start: 02-16-2024 End: 02-16-2024 ambulatory Andressa Abraham APRN.CNP Work Phone: [facility] Comment on above: Records Start: 02-09-2024 End: 02-09-2024 Nursing evaluation of patient and report Fern Lamar MD Work Phone: [facility] Comment on above: resulting from assisted reproductive technology in first trimester Start: 02-09-2024 End: 02-09-2024 ambulatory ANDRESSA ABRAHAM Facility:[facility] Start: 01-21-2024 End: 01-21-2024 ambulatory JESSI YOO Facility:[facility] Start: 01-20-2024 End: 01-20-2024 ambulatory Andressa Abraham NATURAL RESOURCE TECHNICIAN.HEAD OF HISTORY Work Phone: [facility] Comment on above: resulting from assisted reproductive technology in first trimester (Primary Dx) Start: 01-20-2024 End: 01-20-2024 Telemedicine consultation with patient Andressa Abraham HEAD OF HISTORY Work Phone: [facility] Start: 01-19-2024 End: 01-19-2024 ambulatory JESSI YOO Facility:[facility] Start: 01-18-2024 End: 01-18-2024 Telephone encounter Andressa Abraham WINDY.HEAD OF HISTORY Work Phone: [facility] Comment on above: +hpt 01/15 after an iui Start: 01-02-2024 End: 01-02-2024 ambulatory ANYI GANT Facility:[facility] Start: 01-02-2024 End: 01-02-2024 Patient encounter procedure Anyi Gant MD Work Phone: [facility] Comment on above: Encounter for artifi cial insemination (Primary Dx) Procreative manageme nt (Primary Dx) Start: 12-30-2023 End: 12-30-2023 ambulatory ANDRESSA ABRAHAM Facility:[facility] Start: 12-28-2023 End: 12-28-2023 Bamboo na Bolanos MD Work Phone: [facility] Start: 12-28-2023 End: 12-28-2023 Shreyas Bolanos MD Work Phone: [facility] Start: 12-28-2023 End: 12-28-2023 Office outpatient visit 15 minutes Karen Bolanos MD Work Phone: [facility] Comment on above: Infertility, female (Primary Dx); BMI 37.0-37.9, adult; Morbid obesity (CMS/HCC) Start: 12-28-2023 End: 12-28-2023 ambulatory KAREN BOLANOS Not Available Start: 12-05-2023 End: 12-05-2023 ambulatory ANDRESSA ABRAHAM Facility:[facility] Start: 12-05-2023 End: 12-05-2023 Patient encounter procedure Andrology Inventory Control Specialist Work Phone: [facility] Comment on above: Procreative manageme nt (Primary Dx) Female infertility ( Primary Dx) Start: 12-04-2023 End: 12-04-2023 ambulatory Andressa Abraham NATURAL RESOURCE TECHNICIAN.HEAD OF HISTORY Work Phone: [facility] Comment on above: Financial clearance Start: 11-23-2023 End: 11-23-2023 ambulatory Andressa Abraham APRN.HEAD OF HISTORY Work Phone: [facility] Comment on above: Reproductive mgmt, i nfertility due to male factor (Primary Dx) Start: 11-23-2023 End: 11-23-2023 Telemedicine consultation with patient Andressa Abraham APRN.LEXUS Work Phone: [facility] Start: 10-29-2023 E-mail encounter fro m caregiver Vidhya Pitt APRN.LEXUS Work Phone: [facility] Start: 10-29-2023 Follow-up encounter Vidhya osorio APRN.HEAD OF HISTORY Work Phone: [facility] Comment on above: Follow up Start: 10-16-2023 End: 10-16-2023 ambulatory JESSI YOO Facility:[facility] Start: 10-12-2023 Telephone encounter Andressa Abraham APRN.HEAD OF HISTORY Work Phone: [facility] Comment on above: +ovulation test Sat& Sund d14 & 15 partner calling Start: 10-05-2023 ambulatory Andressa goldstein APRN.HEAD OF HISTORY Work Phone: [facility] Comment on above: Doner Start: 09-11-2023 End: 09-11-2023 ambulatory ANDRESSAHAILEE ABRAHAM Facility:[facility] Start: 09-11-2023 End: 09-11-2023 Patient encounter procedure Andressa Abraham NATURAL RESOURCE TECHNICIAN.HEAD OF HISTORY Work Phone: [facility] Comment on above: Encounter for fertil ity planning (Primary Dx) Start: 07-28-2023 Telephone encounter Rahul carroll MD Work Phone: [facility] Comment on above: Lila bloodwork compl eted today Start: 06-15-2023 End: 06-15-2023 ambulatory Andressa Abraham NATURAL RESOURCE TECHNICIAN.HEAD OF HISTORY Work Phone: [facility] Comment on above: Encounter for fertil ity planning (Primary Dx); Encounter for other genetic testing of female for procreative management Start: 06-15-2023 End: 06-15-2023 Telemedicine consultation with patient Andressa Abraham NATURAL RESOURCE TECHNICIAN.HEAD OF HISTORY Work Phone: [facility] Start: 06-08-2023 End: 06-08-2023 Patient encounter procedure Rahul Zheng MD Work Phone: [facility] Comment on above: Procreative manageme nt counseling (Primary Dx); BMI 34.0-34.9,adult Start: 03-16-2023 End: 03-16-2023 ambulatory TIARRA KATZ Facility:[facility] Start: 03-16-2023 End: 03-16-2023 Patient encounter procedure TIARRA KATZ [facility] Start: 03-19-2022 End: 03-19-[address] ANDREA PRIETO Facility: Start: 03-11-2021 End: 03-11-2021 Emergency department patient visit Filomena [facility] Start: 12-09-2016 End: 12-11-2016 Evaluation and management of inpatient [facility] Facility[facility] Start: 12-03-[address] [facility] Facility: [facility] Start: 11-13-2016 End: 11-13-2016 Ambulatory CHARLIE JOEL Facility:[facility] Start: 11-06-2016 Ambulatory CHARLIE Rowena CASEYRowena Faci lity:[facility] Procedures Date Procedure Procedure Detail Performing Clinician Start: 08-31-2024 Urnls dip stick/tabl et rgnt non-auto w/o micrscp Karyna BENITES Work Phone: Start: 08-27-2024 US OB BPP W NON-STRESS [...] uterus after 1st trimest 03/30 gestation Tristan Soas APRN.HEAD OF HISTORY Work Phone: Start: 04-19-2024 RECURRENT VAGINITIS (HTRX) [...] uterus after 1st trimest 03/30 gestation Andressa Antunez Jarad NATURAL RESOURCE TECHNICIAN.HEAD OF HISTORY Work Phone: Start: 03-19-2022 Microscopic observat ion [...] (Season Ended) [facility] Start: 09-07-2024 End: 09-07-2024 Patient encounter procedure 09/07/2024 3:00 PM EDT Routine [facility] [address] [place] [address] Andrea Prieto, DO [address] [place] [address] [facility] Start: 08-31-2024 End: 08-31-2025 CULTURE, GROUP B STREP WITH SUSCEPTIBLITY CULTURE, GROUP B STREP WITH SUSCEPTIBLITY Lab Routine Third trimester Expected: 08/31/2024, Expires: 08/31/2025 [facility] Work Phone: Comment on above: Expected: 08/31/2024 , Expires: 08/31/2025 Start: 08-31-2024 End: 08-31-2024 Patient encounter procedure 08/31/2024 11:20 AM EDT Routine [facility] [address] [facility] [place] [id number] Karyna Craig PA [address] [place] [address] [facility] Start: 08-23-2024 End: 08-23-2024 Patient encounter procedure 08/23/2024 1:10 PM EDT Routine [facility] [address] [facility] [place] [id number] Karyna Craig PA [address] [place] [address] [facility] Start: 08-08-2024 End: 08-08-2024 Patient encounter procedure [facility] Comment on above: Arrived Start: 08-08-2024 End: 02-08-2025 US biophysical profile w non stress test US biophysical profile w non stress test Imaging Routine Third trimester 33 weeks gestation of Gestational diabetes mellitus (GDM), antepartum, gestational diabetes method of control unspecified Expected: 08/08/2024 (Approximate), Expires: 02/08/2025 [facility] Work Phone: Comment on above: Expected: 08/08/2024 (Approximate), Expires: 02/08/2025 Start: 08-08-2024 End: 12-09-2024 US for US OB follow up transabdominal approach Imaging Routine Third trimester 33 weeks gestation of Gestational diabetes mellitus (GDM), antepartum, gestational diabetes method of control unspecified Expected: 08/08/2024, Expires: 12/09/2024 [facility] Comment on above: Expected: 08/08/2024 , Expires: 12/09/2024 Start: 07-25-2024 End: 07-25-2024 Patient encounter procedure [facility] Comment on above: Arrived Start: 07-11-2024 End: 07-11-2024 Patient encounter procedure 07/11/2024 11:00 AM EDT Routine [facility] [address] [place] [address] Andrea Prieto, DO [address] [place] [address] [facility] Start: 07-11-2024 End: 07-11-2024 Professional / ancillary services management 07/11/2024 10:30 AM EDT Ancillary Procedure [facility] [address] [place] [id number] [facility] Start: 07-05-2024 End: 07-05-2024 Patient encounter procedure 07/05/2024 11:00 AM EDT Office Visit [facility] [address] [place] [address] Andrea Prieto, DO [address] [place] [address] [facility] Start: 06-22-2024 End: 06-22-2025 CBC panel - Blood by Automated count CBC Lab Routine Diabetes mellitus screening Expected: 06/22/2024 (Approximate), Expires: 06/22/2025 [facility] Comment on above: Expected: 06/22/2024 (Approximate), Expires: 06/22/2025 Start: 06-22-2024 End: 06-22-2025 Measurement of glucose 1 hour after glucose challenge for glucose tolerance test Glucose tolerance, 1 hour Lab Routine Diabetes mellitus screening Expected: 06/22/2024 (Approximate), Expires: 06/22/2025 [facility] Comment on above: Expected: 06/22/2024 (Approximate), Expires: 06/22/2025 Start: 06-22-2024 End: 06-22-2025 US for US OB follow up transabdominal approach Imaging Routine size inconsistent with dates Expected: 06/22/2024, Expires: 06/22/2025 [facility] Work Phone: Comment on above: Expected: 06/22/2024 , Expires: 06/22/2025 Start: 06-01-2024 End: 06-01-2024 Patient encounter procedure 06/01/2024 11:00 AM EST Routine [facility] Visit [facility] [address] [place] [address] anatomy [facility] Comment on above: anatomy Start: 05-27-2024 End: 05-27-2025 OBSTETRIC ULTRASOUND [facility] OBSTETRIC ULTRASOUND [facility] Anc Imaging Routine Encounter for anatomic survey Expected: 05/27/2024, Expires: 05/27/2025 [facility] Work Phone: Comment on above: Expected: [...] AM EST Routine [facility] [address] [facility] [place] [id number] Andrea Prieto DO [address] [place] [address] Arrived [facility] Comment on above: Arrived Start: 04-12-2024 End: 04-12-2024 Patient encounter procedure 04/12/2024 11:10 AM EST Routine [facility] [address] [place] [address] Andrea Prieto, DO [address] [place] [address] [facility] Start: 03-11-2024 End: 03-11-2025 ABO/Rh ABO/Rh Lab Routine Missed menses , unspecified gestational age Expected: 03/11/2024 (Approximate), Expires: 03/11/2025 [facility] Healthcare Comment on above: Expected: 03/11/2024 (Approximate), Expires: 03/11/2025 Start: 03-11-2024 End: 03-11-2025 Blood type and Indirect antibody screen panel - Blood Type and screen Lab Routine Missed menses , unspecified gestational age Expected: 03/11/2024 (Approximate), Expires: 03/11/2025 [facility] Work Phone: Comment on above: Expected: 03/11/2024 (Approximate), Expires: 03/11/2025 Start: 03-11-2024 End: 03-11-2025 Drugs of abuse panel - Urine by Screen method Rapid drug screen, urine Lab Routine , unspecified gestational age Encounter for supervision of normal first in first trimester Expected: 03/11/2024 (Approximate), Expires: 03/11/2025 [facility] Comment on above: Expected: 03/11/2024 (Approximate), Expires: 03/11/2025 Start: 02-09-2024 End: 02-09-2024 Nursing evaluation of patient and report 02/09/2024 10:30 AM EST Nurse Visit [facility] [address] [place] [address] Ollie Nurse Sarmad [facility] [address] [place] [address] ob scan [facility] Comment on above: ob scan Start: 01-25-2024 End: 01-25-2024 Patient encounter procedure 01/25/2024 9:40 AM EDT Office Visit [facility] [address] [place] [address] Andrea Prieto, DO [address] [facility] [place] [address] [facility] Start: 01-20-2024 End: 01-19-2025 OBSTETRIC ULTRASOUND [facility] OBSTETRIC ULTRASOUND [facility] Anc Imaging Routine resulting from assisted reproductive technology in first trimester Expected: 01/20/2024, Expires: 01/19/2025 [facility] Work Phone: Comment on above: Expected: 01/20/2024 , Expires: 01/19/2025 Start: 12-28-2023 End: 12-28-2023 Patient encounter procedure 12/28/2023 8:20 AM EDT Office Visit [facility] [address] [place] [address] Karen Bolanos MD [address] [place] [address] Arrived [facility] Comment on above: Arrived Start: 12-05-2023 End: 12-05-2023 Patient encounter procedure [facility] Comment on above: donor thaw IUI-D Start: 11-29-2023 Covid-19 Vaccine ( season) Covid-19 Vaccine ( season) [facility] Start: 11-29-2023 Covid-19 Vaccine ( season) Covid-19 Vaccine ( season) [facility] Start: 11-29-2023 Influenza vaccination Influenza Vacc ine (#1) [facility] Start: 10-12-2023 End: 01-11-2024 Progesterone [Mass/volume] in Serum or Plasma PROGESTERONE Lab Routine Female infertility Expected: 10/12/2023, Expires: 01/11/2024 [facility] Work Phone: Comment on above: Expected: 10/12/2023 , Expires: 01/11/2024 Start: 06-15-2023 End: 09-14-2023 CARRIER SCREEN, EXPANDED CARRIER SCREEN, EXPANDED Lab Routine Encounter for other genetic testing of female for procreative management Expected: 06/15/2023, Expires: 09/14/2023 [facility] Work Phone: Comment on above: Expected: 06/15/2023 , Expires: 09/14/2023 Start: 03-30-2023 Behavioral Health Screening Behavioral Health Screening [facility] Start: 03-30-2023 Depression Assessment Depression Ass essment [facility] Start: 11-28-2022 Covid-19 Vaccine () Covid-19 Vaccine () [facility] Start: 11-28-2022 Influenza vaccination Influenza Vacc ine (#1) [facility] Start: 08-01-2021 Screening for malign ant neoplasm of cervix [facility] Start: 03-18-2018 Screening for malign ant neoplasm of cervix Pap Testing [facility] Start: 03-18-2016 Screening for malign ant neoplasm of cervix Cervical Cancer Screening [facility] Start: 08-01-2009 Anxiety Screening Anxiety Screening [facility] Start: 08-01-2009 Depression Screening Depression Scre ening [facility] Start: 08-01-2009 Hepatitis C screening Hepatitis C Sc reening [facility] Start: 08-01-2009 HIV screening HIV Screening [facility] Start: 01-05-2004 Hepatitis B Vaccine (2 of 3 - 3-dose series) Hepatitis B Vaccine (2 of 3 - 3-dose series) [facility] Start: 08-01-2002 Urine microalbumin profile DTaP,Tdap,Td Vaccine (5 - Tdap) [facility] Bacteria identified in Urine by Culture Urine culture Microbiology Routine Missed menses Ordered: 03/11/2024 [facility] Comment on above: Ordered: 03/11/2024 CBC W Auto Different ial panel - Blood CBC and differential Lab Routine Missed menses , unspecified gestational age Ordered: 03/11/2024 [facility] Comment on above: Ordered: 03/11/2024 CHLAMYDIA TRACHOMATI S (GENITO/STI) CHLAMYDIA TRACHOMATIS (GENITO/STI) Lab Routine Vaginal discharge STD exposure Ordered: 04/19/2024 [facility] Comment on above: Ordered: 04/19/2024 End: 01-17-2025 Choriogonadotropin.beta subunit [Units/volume] in Serum or Plasma HCG QUANTITATIVE Lab Routine Encounter for test, result positive 2x per week for 2 Occurrences starting 01/18/2024 until 01/17/2025 [facility] Work Phone: Comment on above: 2x per week for 2 Oc currences starting 01/18/2024 until 01/17/2025 Cytology Cervical or vaginal smear or scraping study Pap Smear Pathology and Cytology Routine Well woman exam with routine gynecological exam Ordered: 04/19/2024 [facility] Work Phone: Comment on above: Ordered: 04/19/2024 Hemoglobin A1c/Hemoglobin.total in Blood Hemoglobin A1c Lab Routine Missed menses , unspecified gestational age Ordered: 03/11/2024 [facility] Comment on above: Ordered: 03/11/2024 Hepatitis B virus surface Ag [Presence] in Serum or Plasma by Immunoassay Hepatitis B surface antigen Lab Routine Missed menses , unspecified gestational age Ordered: 03/11/2024 [facility] Comment on above: Ordered: 03/11/2024 Hepatitis C virus Ab [Presence] in Serum or Plasma by Immunoassay Hepatitis C antibody Lab Routine Missed menses , unspecified gestational age Ordered: 03/11/2024 [facility] Comment on above: Ordered: 03/11/2024 HIV-1/HIV-2 antigen/antibody combination immunoassay HIV-1 and HIV-2 antibodies Lab Routine Missed menses , unspecified gestational age Ordered: 03/11/2024 [facility] Comment on above: Ordered: 03/11/2024 Human papilloma viru s DNA [Presence] in Unspecified specimen by Probe with amplification HPV DNA probe, amplified Microbiology Routine Well woman exam with routine gynecological exam Ordered: 04/19/2024 [facility] Comment on above: Ordered: 04/19/2024 Neisseria gonorrhoea e DNA [Presence] in Unspecified specimen by PENNY with probe detection Neisseria gonorrhea DNA probe, direct Lab Routine Vaginal discharge STD exposure Ordered: 04/19/2024 [facility] Comment on above: Ordered: 04/19/2024 Reagin Ab [Presence] in Serum by RPR RPR Lab Routine Missed menses , unspecified gestational age Ordered: 03/11/2024 [facility] Comment on above: Ordered: 03/11/2024 Rubella antibody, IgG Rubella an tibody, IgG Lab Routine Missed menses , unspecified gestational age Ordered: 03/11/2024 [facility] Comment on above: Ordered: 03/11/2024 SURESWAB(R) ADVANCED VAGINITIS PLUS, TMA SURESWAB(R) ADVANCED VAGINITIS PLUS, TMA Pathology and Cytology Routine Vaginal discharge STD exposure Ordered: 04/19/2024 [facility] Comment on above: Ordered: 04/19/2024 Immunizations Immunization Date Immunization Notes Care Provider Fa cility 09-13-2023 measles, mumps and rubella virus vaccine Karen Bolanos MD Work Phone: [facility] 06-15-2023 influenza, injectable, quadrivalent, contains preservative Karen Bolanos MD Work Phone: [facility] 06-15-2023 influenza virus vaccine, unspecified formulation Andressa Abraham APRN.CNP Work Phone: [facility] 08-17-2020 SARS-CoV-2 (COVID-19 ) mRNA[facility] [facility] 07-20-2020 SARS-CoV-2 (COVID-19 ) mRNA-[address] [facility] 12-10-2016 influenza virus vaccine, unspecified formulation [facility] 12-10-2016 influenza, injectable, quadrivalent, preservative free Karen Bolanos MD Work Phone: [facility] 02-16-2009 novel [id number], preservative-free, injectable Karen Bolanos MD Work Phone: [facility] 12-08-2003 hepatitis B vaccine, pediatric or pediatric/adolescent dosage TIARRA KATZ [facility] 12-08-2003 measles, mumps and rubella virus vaccine TIARRA KATZ [facility] 12-08-2003 tetanus toxoid, adsorbed Karen Bolanos MD Work Phone: [facility] 10-27-1996 measles, mumps and rubella virus vaccine [facility] 02-08-1993 diphtheria, tetanus toxoids and acellular pertussis vaccine Karen Bolanos MD Work Phone: [facility] 02-08-1993 diphtheria, tetanus toxoids and acellular pertussis vaccine, unspecified formulation Karen Bolanos MD Work Phone: [facility] 02-08-1993 DTaP, unspecified formulation [facility] 02-08-1993 haemophilus influenzae type b vaccine, conjugate unspecified formulation Karen Bolanos MD Work Phone: [facility] 02-08-1993 haemophilus influenzae type b vaccine, HbOC conjugate Karen Bolanos MD Work Phone: [facility] 02-08-1993 Hib, unspecified formulation [facility] 02-08-1993 poliovirus vaccine, unspecified formulation Karen Bolanos MD Work Phone: [facility] 02-07-1992 diphtheria, tetanus toxoids and acellular pertussis vaccine Karen Bolanos MD Work Phone: [facility] 02-07-1992 diphtheria, tetanus toxoids and acellular pertussis vaccine, unspecified formulation Karen Bolanos MD Work Phone: [facility] 02-07-1992 DTaP, unspecified formulation TIARRA KATZ [facility] 02-07-1992 haemophilus influenzae type b vaccine, conjugate unspecified formulation Karen Bolanos MD Work Phone: [facility] 02-07-1992 haemophilus influenzae type b vaccine, HbOC conjugate Karen Bolanos MD Work Phone: [facility] 02-07-1992 Hib, unspecified formulation TIARRA KATZ [facility] 1991 diphtheria, tetanus toxoids and acellular pertussis vaccine Karen Bolanos MD Work Phone: [facility] 1991 diphtheria, tetanus toxoids and acellular pertussis vaccine, unspecified formulation Karen Bolanos MD Work Phone: [facility] 1991 DTaP, unspecified formulation [facility]ARRA KATZ [facility] 1991 haemophilus influenzae type b vaccine, conjugate unspecified formulation Karen Bolanos MD Work Phone: [facility] 1991 haemophilus influenzae type b vaccine, HbOC conjugate Karen Bolanos MD Work Phone: [facility] 1991 Hib, unspecified formulation [facility] KATZ [facility] 1991 poliovirus vaccine, unspecified formulation Karen Bolanos MD Work Phone: [facility] 1991 diphtheria, tetanus toxoids and acellular pertussis vaccine Karen Bolanos MD Work Phone: [facility] 1991 diphtheria, tetanus toxoids and acellular pertussis vaccine, unspecified formulation Karen Bolanos MD Work Phone: [facility] 1991 DTaP, unspecified formulation [facility] KAT[facility] 1991 haemophilus influenzae type b vaccine, conjugate unspecified formulation Karen Bolanos MD Work Phone: [facility] 1991 haemophilus influenzae type b vaccine, HbOC conjugate Karen Bolanos MD Work Phone: [facility] 1991 Hib, unspecified formulation TIARRA KATZ [facility] 1991 poliovirus vaccine, unspecified formulation Karen Bolanos MD Work Phone: [facility] NEGATED: Highlighted row has not occurred!03-16-2023 influenza virus vaccine, unspecified formulation TIARRA KATZ [facility] Payers Date Payer Category Payer Unknown [id number] 2022 [facility] 1.2.8 [id number] 2022 Unknown 2022 Unknown [id number] 1991 Unknown [id number] 2.16.84 [id number] 1991 Unknown [id number] 2.16.8 [id number] 1991 Unknown [id number] 2.16.8 [id number] 1991 Unknown [id number] 2.16.8 [id number] 1991 Unknown [id number] 2.16.8 [id number] 1991 Unknown [id number] 2.16.84 [id number] 1991 Unknown [id number] 2.16.84 [id number] 1991 Unknown [id number] 2.16.84 [id number] 1991 Unknown [id number] 2.16.84 [id number] 1991 Unknown [id number] 2.16.84 [id number] 1991 Unknown [id number] 2.16.84 [id number] 1991 Unknown [id number] 2.16.84 0.1.134534.3.579.2.9 1991 Unknown [id number] 2.16.84 [id number] 1991 Unknown [id number] 2.16.84 [id number] 1991 Unknown [id number] 2.16.84 [id number] 1959 Unknown [id number] Unknown [id number] Social History Date Type Detail Facility [facility] Tobacco smoking consumption unknown [facility] Start: 11-11-2022 End: 03-16-2023 Tobacco smoking status Never smoked tobacco (finding) [facility] Tobacco smoking status Never [facility] Start: 06-08-2023 End: 12-28-2023 Sex Assigned At Female [facility] Start: 04-12-2012 End: 11-11-2022 Tobacco use and exposure Smokeless tobacco non-user [facility] Start: 06-08-2023 End: 08-31-2024 Alcohol intake Current drinker of alcohol (finding) [facility] Start: 06-08-2023 End: 12-28-2023 History of [address] function [facility] Start: 04-12-2012 Alcohol Comment social [facility] Start: 1991 Sex Assigned At Not on file [facility] Start: 1991 Sex Assigned At Female [facility] Start: 06-11-2022 Gender identity Identifies as female gender (finding) [facility] Start: 01-12-2023 Sexual orientation Homosexual (findi ng) [facility] Start: 11-10-2022 Alcohol Comment 1-2 drinks [...] meal for a total of 4times daily. [id number] Start: 07-12-2024 End: 08-11-2024 1 each by In Vit ro route Daily Use to check FSBS four times daily [id number] Start: 07-12-2024 End: 08-11-2024 Goals Date Patient Goal Desired Activity /State Personal health goal Functional Status Date Assessment Result Facility 02-28-2024 Functional Status N/A [facility] 03-16-2023 Functional Status N/A [facility] Clinical Notes 03-16-2023 to 08-31-2024 KAMARI Zavala - 08/31/2024 11:20 AM Orlin Posadas LPN - 08/23/2024 2:40 PM EDBolivar Rubi MA - 08/08/2024 2:10 PM Lewis Gerard NP - 07/25/2024 10:40 AM EDTPatient Instructions Note Date & Type Note Facility 08-31-2024 History of Presen t illness Narrative Reason [...] Vitals: Estimated body mass index is 39.86 kg/m as calculated from the following: Height [...] of: KAMARI Zavala documented in this encounter [facility] 08-23-2024 History of Presen t illness Narrative Reason for Appointment: Patient ID: Nelli Carpenter is a 34 y.o. female who presents for Routine Visit Patient presents today for Return OB appointment. MEDICATIONS Current Outpatient Medications Medication Instructions Alcohol Swabs (Alcohol Prep Pad) 70 % pads 1 Pad, Topical, Daily, Use four times daily to check FSBS. Blood Glucose Monitoring Suppl ([employer] Glucometer) w/Device kit 1 kit, Does not [...] disorder (HCC) ([facility]/HCC) 12/28/2023 Restless leg 12/28/2023 Resolved Ambulatory Problems [...] nursing note reviewed. Exam conducted with a vessel slag worker present. Vitals: Estimated body mass index is [...] Andrea Prieto DO documented in this encounter [facility] 08-08-2024 History of Presen t illness Narrative Reason for Appointment: Patient ID: Nelli Carpenter is a 34 y.o. female who presents for Routine Visit Patient presents today for Return OB appointment. MEDICATIONS Current Outpatient Medications Medication Instructions Alcohol Swabs (Alcohol Prep Pad) 70 % pads 1 Pad, Topical, Daily, Use four times daily to check FSBS. Blood Glucose Monitoring Suppl ([employer] Glucometer) w/Device kit 1 kit, Does not [...] disorder (HCC) ([facility]/HCC) 12/28/2023 Restless leg 12/28/2023 Resolved Ambulatory Problems [...] nursing note reviewed. Exam conducted with a vessel slag worker present. Vitals: Estimated body mass index is [...] changes & patient will send results for Lead Burner next Thursday. Patient is also to start NST/BPP. Order will be sent to [facility] anf TB Scheduling. Patient given handout as well. Patient to have sugars monitored locally and is going to cancel upcoming appointment with [facility] telemedicine. Orders Placed This Encounter Procedures POCT urinalysis dipstick manually resulted Follow Up: Patient is to return to office in 3 week for routine OB appointment. Documented by Liane Manzano LPN on behalf of: Andrea Prieto DO documented in this encounter [facility] 07-25-2024 History of Presen t illness Narrative Reason for Appointment: Patient ID: Nelli Carpenter is a 33 y.o. female who presents for Routine Visit Patient presents today for Return OB appointment. MEDICATIONS Current Outpatient Medications Medication Instructions Alcohol Swabs (Alcohol Prep Pad) 70 % pads 1 Pad, Topical, Daily, Use four times daily to check FSBS. Blood Glucose Monitoring Suppl ([employer] Glucometer) w/Device kit 1 kit, Does not [...] disorder (HCC) ([facility]/HCC) 12/28/2023 Restless leg 12/28/2023 Resolved Ambulatory Problems [...] nursing note reviewed. Exam conducted with a vessel slag worker present. Vitals: Estimated body mass index is [...] Patient has completed level 2 Ultrasound at [facility] but has not yet met with M. [...] Dina Gerard NP documented in this encounter [facility] 07-20-2024 Telephone encounter Note Received outside referral from Dr. Prieto for GDM consult due to elevated 1 hour glucose 202. Called pt. To schedule appointment no answer, left message with call back phone number. Jessy Lilly RN [facility] 07-20-2024 Miscellaneous Notes Received outside referral from Dr. Prieto for GDM consult due to elevated 1 hour glucose 202. Called pt. To schedule appointment no answer, left message with call back phone number. Jessy Lilly RN documented in this encounter [facility] 07-11-2024 History of Presen t illness [...] disorder (HCC) ([facility]/HCC) 12/28/2023 Restless leg 12/28/2023 Resolved Ambulatory Problems [...] nursing note reviewed. Exam conducted with a vessel slag worker present. Vitals: Estimated body mass index is [...] Diabetic and referral will be done to [facility] for Diabetic management. Patient aware that supplies will be sent to pharmacy to take with her to referral appointment. Documented by Liane Manzano LPN on behalf of: Andrea Prieto DO documented in this encounter [facility] 06-22-2024 History of Presen t illness Narrative [...] disorder (HCC) ([facility]) 12/28/2023 Restless leg [...] by KAMARI Zavala documented in this encounter [facility] 06-01-2024 Note HNO ID: [id number] Author: LEONID MYERS MD Service: ? Author Type: Physician Type: Progress Notes Filed: 06/01/2024 15:07 Note Text: Please see ultrasound report for details of this visit. Leonid Myers M.D. [facility] 06-01-2024 History of Presen t illness Narrative Please see ultrasound report for details of this visit. Leonid Myers M.D. documented in this encounter [facility] 04-19-2024 History of Presen t illness [...] disorder (HCC) ([facility]) 12/28/2023 Restless leg 12/28/2023 Resolved Ambulatory Problems Diagnosis Date Noted No Resolved Ambulatory Problems Past Medical History: Diagnosis Date Asthma (CMS/[facility]) BMI 28.0-28.9,adult Depression screening GERD (gastroesophageal reflux disease) History of chlamydia infection HPV in female Well woman exam HISTORY PAST MEDICAL HISTORY SOCIAL HISTORY Past Medical History: Diagnosis Date Asthma (CMS/[facility] [...] nursing note reviewed. Exam conducted with a vessel slag worker present. Vitals: Estimated body mass index is [...] to be obtained. Pt being referred to [facility] for level II ultrasound for IVF [...] Andrea Prieto DO documented in this encounter [facility] 03-11-2024 History of Presen t illness Narrative [...] 37w0d 7 lb 12 oz F CS-Unspec OKMAL Complications: Placenta Previa 3 SAB 10/2015 8w0d [...] or undercooked meat, and [facility]. Patient has also been advised to not [...] Jacqui Ferguson LPN documented in this encounter [facility] 02-28-2024 Hospital Discharg e instructions Patient Education [...] Centers for Disease Control and Prevention: cdc.gov [employer]: heart.org National Heart, Lung, and Blood [place]: nhlbi.nih.gov This information is not intended to replace advice given to you by your health care provider. Make sure you discuss any questions you have with your health care provider. Document Revised: 12/04/2022 Document Reviewed: 11/27/2022 [employer] Patient Education 2023 [employer]. 02/28/2024 09:57:52 Otitis Media, Adult, Qzpa-de-Okzu Otitis Media, Adult Otitis media is a [...] pain. Follow these instructions at home: Take yref-fub-scskmso and prescription medicines only as told by [...] provider. Document Revised: 06/24/2021 Document Reviewed: 06/24/2021 [employer] Patient Education 2023 [employer]. Follow Up Care 02/28/2024 08:48:51 With:Karen Bolanos MD Address: [address] [place] [address]- When: Unknown [facility] 02-28-2024 Note Patient Education [...] Follow these instructions at home: ??? Take tehk-qmv-qwnfsmn and prescription medicines only as told by [...] provider. Document Revised: 06/24/2021 Document Reviewed: 06/24/2021 [employer] Patient Education ? 2023 [employer]. Nutrition BMI for Adults Body mass index [...] (Inserted Image. Un (more content not included)... [facility] 02-09-2024 Note HNO ID: [id number] Author: VIDHYA PITT APRN.HEAD OF HISTORY Service: ? Author Type: Nurse Practitioner Type: Progress Notes Filed: 02/09/2024 12:28 Note Text: Nelliamilcar Carpenter here today for a scan. This [...] Plan Move on to OB Vidhya Pitt APRN.HEAD OF HISTORY February 09, 2024 12:27 PM [facility] 02-09-2024 History of Presen t illness Narrative [...] Parth Clark MD documented in this encounter [facility] 02-09-2024 Note HNO ID: [id number] Author: PARTH CLARK MD Service: ? Author Type: Physician Type: Progress Notes Filed: 02/09/2024 11:28 Note Text: Scan Visit Patient here for scan. See imaging documentation. Parth Clark MD [facility] 01-20-2024 Note HNO ID: [id number] Author: ANDRESSA ABRAHAM APRN.HEAD OF HISTORY Service: ? Author Type: Nurse Practitioner Type: [...] visit. Either the patient or their legal veterans employment representative has been informed of the risks [...] which included preparing to see the patient, bwxg-il-nqln patient care, completing clinical documentation, obtaining and/or [...] grammatical and typographical errors missed in proofreading. [facility] 01-20-2024 History of Presen t illness Narrative [...] visit. Either the patient or their legal veterans employment representative has been informed of the risks [...] schedule the patient for the following- Location: [place] Provider: nurse Visit type: scan Reason for visit/appointment notes: scan Date: 02/08 Time (requested): 1030 If slot is full, please schedule the closest open slot. Call to patient needed: no I spent a total of 30 minutes on the date of the service which included preparing to see the patient, axtt-aj-xuio patient care, completing clinical documentation, obtaining and/or [...] missed in proofreading. documented in this encounter [facility] 01-18-2024 Telephone encounter Note Patient calls [...] Yoo PA-C January 18, 2024 4:[address] [facility] 01-18-2024 Miscellaneous Notes Patient calls with [...] regarding next steps. documented in this encounter [facility] 01-18-2024 Telephone encounter Note Please call patient back regarding next steps. [facility] Work Phone: 01-02-2024 Note HNO ID: [id number] Author: FLAVIA ELIZONDO, ? Service: ? Author Type: Flame Cutting Machine Operator Helper Type: Progress Notes Filed: 01/02/2024 11:47 Note Text: Thaw for IUI Flavia E Amrita [facility] 01-02-2024 History of Presen t illness Narrative Thaw for IUI Flavia Rowena Amrita documented in this encounter [facility] 01-02-2024 Note HNO ID: [id number] Author: FLAVIA ELIZONDO, ? Service: ? Author Type: Flame Cutting Machine Operator Helper Type: Progress Notes Filed: 01/02/2024 11:46 Note Text: IUI Xytex #: [id number] Washed frozen specimen Post: 122 m/ml, 63% Insem#: 34.7 million [facility] 01-02-2024 History of Presen t illness Narrative IUI Xytex #: [id number] Washed frozen specimen Post: 122 m/ml, 63% Insem#: 34.7 million IUI specimen released to provider Flavia Elizondo January 02, 2024 11:23 AM documented in this encounter [facility] 01-02-2024 Note HNO ID: [id number] Author: ANYI GANT MD Service: ? Author [...] Cycle Day: 15 Last menstrual period: 12/19/2023 [place] Protocol: UNIVERSAL PROTOCOL / SAFETY CHECKLIST Procedure [...] discussed with the Patient or Patient's Authorized Improvement Director. As applicable, any other physician, advance practice provider, medical student, or other health professional student that will be observing or involved in the sensitive examination for educational or training purposes was discussed with the Patient or Authorized Improvement Director. The Patient or Authorized Improvement Director has agreed to proceed with the sensitive examination. (Sensitive examination includes inspection and/or palpation of the breasts, pelvis, prostate and anorectal regions) Patient declined vessel slag worker. IUI IUI Date: 01/02/24 Partner's Name: Wanda [...] Anyi Gant M.D. Reproductive Endocrinology and Infertility [facility] 01-02-2024 Procedure note I SARMAD IUI PROCEDURE NOTE Date: 01/02/2024 Primary Proceduralist: Uma Aguilera MD Consents and Labels Consent Signed: Informed Consent obtained and on the chart Labels Verified With Patient: Yes Indications: Nelli Carpenter, is a 33 year old female here today for intrauterine insemination. IUI # 2. Cycle Day: 15 Last menstrual period: 12/19/2023 [place] Protocol: UNIVERSAL PROTOCOL / SAFETY CHECKLIST Procedure [...] discussed with the Patient or Patient's Authorized Improvement Director. As applicable, any other physician, advance practice provider, medical student, or other health professional student that will be observing or involved in the sensitive examination for educational or training purposes was discussed with the Patient or Authorized Improvement Director. The Patient or Authorized Improvement Director has agreed to proceed with the sensitive examination. (Sensitive examination includes inspection and/or palpation of the breasts, pelvis, prostate and anorectal regions) Patient declined vessel slag worker. IUI IUI Date: 01/02/24 Partner's Name: Wanda [...] Anyi Gant M.D. Reproductive Endocrinology and Infertility [facility] Work Phone: 01-02-2024 Procedure note WHI SARMAD IUI PROCEDURE NOTE Date: 01/02/2024 Primary Proceduralist: Uma Aguilera MD Consents and Labels Consent Signed: Informed Consent obtained and on the chart Labels Verified With Patient: Yes Indications: Nelli Carpenter, is a 33 year old female here today for intrauterine insemination. IUI # 2. Cycle Day: 15 Last menstrual period: 12/19/2023 [place] Protocol: UNIVERSAL PROTOCOL / SAFETY CHECKLIST Procedure [...] discussed with the Patient or Patient's Authorized Improvement Director. As applicable, any other physician, advance practice provider, medical student, or other health professional student that will be observing or involved in the sensitive examination for educational or training purposes was discussed with the Patient or Authorized Improvement Director. The Patient or Authorized Improvement Director has agreed to proceed with the sensitive examination. (Sensitive examination includes inspection and/or palpation of the breasts, pelvis, prostate and anorectal regions) Patient declined vessel slag worker. IUI IUI Date: 01/02/24 Partner's Name: Wanda [...] Endocrinology and Infertility documented in this encounter [facility] 01-02-2024 Note HNO ID: [id number] Author: FLAVIA ELIZONDO, ? Service: ? Author Type: Flame Cutting Machine Operator Helper Type: Progress Notes Filed: 01/02/2024 11:46 Note Text: IUI specimen released to provider Flavia Elizondo January 02, 2024 11:23 AM [facility] 12-28-2023 History of Presen t illness Narrative [...] to monitor weight documented in this encounter [facility] 12-05-2023 Note HNO ID: [id number] Author: STEPHANIE LARA, ? Service: ? Author Type: ? Type: Progress Notes Filed: 12/06/2023 08:45 Note Text: IUI Xytex #[id number] Frozen washed specimen Post: 145 Million/mL, 68% Insem #: 49 Million [facility] 12-05-2023 History of Presen t illness Narrative IUI Xytex #[id number] Frozen washed specimen Post: 145 Million/mL, 68% Insem #: 49 Million IUI specimen released to provider Stephanie Lara December 05, 2023 10:19 AM documented in this encounter [facility] 12-05-2023 Note HNO ID: [id number] Author: MYRIAM DOMINGUEZ MD Service: ? Author [...] Cycle Day: 15 Last menstrual period: 11/21/2023 [place] Protocol: UNIVERSAL PROTOCOL / SAFETY CHECKLIST Procedure [...] EMERGENT procedures): No specimen collected. Patient declined vessel slag worker. Uma Aguilera MD IUI IUI Date: 12/05/23 [...] after wash): 49 million Donor ID #: [id number] Cycle reviewed, all questions answered. Pt instructed to take a test in 17 days if no menses and call with results. SIGNATURE: Uma Aguilera MD PATIENT NAME: Nelli Carpenter DATE: December 05, 2023 TIME: 10:31 AM I was present and immediately available for the entire procedure. Patient underwent an intrauterine insemination. Myriam Dominguez MD, TRUDY [facility] 12-05-2023 Procedure note WHI SARMAD IUI PROCEDURE NOTE Date: 12/05/2023 Primary Proceduralist: Uma Aguilera MD Consents and Labels Consent Signed: Informed Consent obtained and on the chart Labels Verified With Patient: Yes Indications: Nelli Carpenter, is a 33 year old female here today for intrauterine insemination. IUI # 1. Cycle Day: 15 Last menstrual period: 11/21/2023 [place] Protocol: UNIVERSAL PROTOCOL / SAFETY CHECKLIST Procedure [...] EMERGENT procedures): No specimen collected. Patient declined vessel slag worker. Uma Aguilera MD IUI IUI Date: 12/05/23 [...] after wash): 49 million Donor ID #: [id number] Cycle reviewed, all questions answered. Pt instructed to take a test in 17 days if no menses and call with results. SIGNATURE: Uma Aguilera MD PATIENT NAME: Nelli Carpenter DATE: December 05, 2023 TIME: 10:31 AM I was present and immediately available for the entire procedure. Patient underwent an intrauterine insemination. Myriam Dominguez MD, TRUDY [facility] Work Phone: 12-05-2023 Procedure note WHI SARMAD IUI PROCEDURE NOTE Date: 12/05/2023 Primary Proceduralist: Uma Aguilera MD Consents and Labels Consent Signed: Informed Consent obtained and on the chart Labels Verified With Patient: Yes Indications: Nelli Carpenter, is a 33 year old female here today for intrauterine insemination. IUI # 1. Cycle Day: 15 Last menstrual period: 11/21/2023 [place] Protocol: UNIVERSAL PROTOCOL / SAFETY CHECKLIST Procedure [...] EMERGENT procedures): No specimen collected. Patient declined vessel slag worker. Uma Aguilera MD IUI IUI Date: 12/05/23 [...] after wash): 49 million Donor ID #: [id number] Cycle reviewed, all questions answered. Pt instructed to take a test in 17 days if no menses and call with results. SIGNATURE: Uma Aguilera MD PATIENT NAME: Nelli Carpenter DATE: December 05, 2023 TIME: 10:31 AM I was present and immediately available for the entire procedure. Patient underwent an intrauterine insemination. Myriam Dominguez MD, TRUDY documented in this encounter [facility] 12-05-2023 History of Presen t illness Narrative Thaw for IUI Stephanie Lara documented in this encounter [facility] 12-05-2023 Note HNO ID: [id number] Author: STEPHANIE LARA, ? Service: ? Author Type: ? Type: Progress Notes Filed: 12/05/2023 10:23 Note Text: Thaw for IUI Stephanie Lara [facility] 12-05-2023 Note HNO ID: [id number] Author: STEPHANIE LARA, ? Service: ? Author Type: ? 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 Tubal Patency Testing: defer for now Sperm Source:Donor Frozen Treatment Protocol: Natural Cycle Monitoring Plan: OPKs Ovidrel Trigger: No Supplemental Progesterone: None Comments: None Andressa Abraham APRN.CNP 11/23/2023 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 Tubal Patency Testing: defer for now Sperm Source:Donor Frozen Treatment Protocol: Natural Cycle Monitoring Plan: OPKs Ovidrel Trigger: No Supplemental Progesterone: None Comments: None Andressa Abraham APRN.CNP 11/23/2023 documented in this encounter [facility] 11-23-2023 Instructions Andressa Abraham APRN.CNP - [...] of your period and let the front end wheel loader operator know you will be doing donor sperm [...] your menstrual cycle to let the front end wheel loader operator know you will be testing and doing [...] please call the office to discuss. Location [address], [place] [address] Available every day, including weekends and holidays (except Lauren and New Years.) Weekday IUI scheduling The day you get your LH surge, please call [phone] between 8:00am - 12:00pm to schedule your insemination for the next day. If you call after 12pm, we may not be able to schedule your appointment. IUI s are done by appointment only. You will make 2 appointments - an arrival time and an IUI time. Donor sperm IUI is available at the following location: [place]: [address] [place] [address], [place] [address] Available every day, including weekends and holidays (except Lauren and New Years.) Available for IUI using fresh and frozen samples. Check in location for sperm wash and IUI: [address] [facility]. The sperm wash takes 60-90 minutes. [...] to do another IUI: Call the front end wheel loader operator to make sure you are financially cleared. Ask to speak to an NELLY to confirm your treatment plan. Important phone number: [phone] documented in this encounter [facility] 11-23-2023 Note HNO ID: [id number] Author: ANDRESSA ABRAHAM APRN.CNP Service: ? Author [...] visit. Either the patient or their legal veterans employment representative has been informed of the risks [...] factor Z31.81 N97.8 She is able to crab picker OPK every cycle, luteal phase is appropriate. Reviewed IUI scheduling and IUI procedure. Plan: natural cycle IUI-D timed with OPK. Sign IUI consent at earliest convenience. Andressa Abraham APRN.CNP November 23, 2023 9:09 AM I spent a total of 25 minutes on the date of the service which included preparing to see the patient, knnf-zc-wtvk patient care, completing clinical documentation, obtaining and/or [...] grammatical and typographical errors missed in proofreading. [facility] 11-23-2023 History of Presen t illness Narrative [...] visit. Either the patient or their legal veterans employment representative has been informed of the risks [...] factor Z31.81 N97.8 She is able to crab picker OPK every cycle, luteal phase is appropriate. Reviewed IUI scheduling and IUI procedure. Plan: natural cycle IUI-D timed with OPK. Sign IUI consent at earliest convenience. Andressa Abraham APRN.HEAD OF HISTORY November 23, 2023 9:09 AM I spent a total of 25 minutes on the date of the service which included preparing to see the patient, urpv-lr-bnqn patient care, completing clinical documentation, obtaining and/or [...] missed in proofreading. documented in this encounter [facility] 10-12-2023 Telephone encounter Note Called the patient she verified her name and date of patient is doing practice cycle Patient had peak on her opk 10-10-23 last period 09-27-23 Needs progesterone order I advised she goes in 6-8 days from positive opk not on fertility meds Laura Roque RN October 12, 2023 12:[address] [facility] 10-12-2023 Miscellaneous Notes Called the patient she verified her name and date of patient is doing practice cycle Patient had peak on her opk 24 last period 6 Needs progesterone order I advised she goes in 6-8 days from positive opk not on fertility meds Laura Roque RN October 12, 2023 12:54 PM Partner Wanda calling re +ov need to schedule progesterone test for Nelli when to have it done. Please follow up with Wanda. documented in this encounter [facility] 10-12-2023 Telephone encounter Note Partner Wanda calling re +ov need to schedule progesterone test for Nelli when to have it done. Please follow up with Wanda. [facility] Work Phone: 09-11-2023 Instructions Andressa Abraham APRN.HEAD OF HISTORY - 09/11/2023 8:20 AM EDT REPRODUCTIVE ENDOCRINOLOGY [...] sample yourself and arranging for shipment to [facility]. Sperm Bank [employer] [place] [facility] [employer] [place] [facility] [place] [facility] [place] [facility] [place] [place] [facility] Let us know the sperm bank [...] (with a backup), please send me a [email or web address] message titled Sperm Donor Choice. Include the [...] the office. Mailing address: Attention: Flavia Elizondo [address] [place] [address], [address] [place] [id number] Storage at the [facility] is available. Fees are yearly and only start once you are not actively trying. Please ask the financial team ([phone]) for current cost information. Insurance Authorization/Financial Clearance [...] of your period and let the front end wheel loader operator know you will be doing donor sperm insemination. The financial office will contact you to collect payment early in your cycle. You will not be able to schedule an IUI unless you have made payment. We want to help make your experience as smooth as possible. Please do not hesitate to call if you should have any questions. Contact documented in this encounter [facility] 09-11-2023 Note HNO ID: [id number] Author: ANDRESSA ABRAHAM APRN.CNP Service: ? Author [...] favorite donors - send to me via [email or web address] to confirm Confirmed best vial type to order: IUI/prewashed Will need to follow up to firm up treatment plan and review IUI scheduling instructions. Andressa Abraham APRN.HEAD OF HISTORY September 11, 2023 8:08 AM I spent a total of 50 minutes on the date of the service which included preparing to see the patient, yxom-wg-bbbx patient care, completing clinical documentation, obtaining and/or [...] may be gramma (more content not included)... [facility] 09-11-2023 History of Presen t illness Narrative REPRODUCTIVE ENDOCRINOLOGY AND INFERTILITY DONOR SPERM FOLLOW UP SERVICE DATE: 09/11/2023 SERVICE TIME: 8:08 AM NAME: Nelli Carpenter Persons Present: Nelli davon EdmondsonWanda Reason for visit: donor sperm follow up [...] favorite donors - send to me via [email or web address] to confirm Confirmed best vial type to order: IUI/prewashed Will need to follow up to firm up treatment plan and review IUI scheduling instructions. Andressa Abraham APRN.HEAD OF HISTORY September 11, 2023 8:08 AM I spent a total of 50 minutes on the date of the service which included preparing to see the patient, zwlr-hn-lqbm patient care, completing clinical documentation, obtaining and/or [...] missed in proofreading. documented in this encounter [facility] 07-28-2023 Telephone encounter Note Sheyla labs [...] follow up once checklist is complete. sent [email or web address] message. Andressa Abraham APRN.CNP July 28, 2023 12:[address] [facility] 07-28-2023 Miscellaneous Notes Sheyla labs are [...] follow up once checklist is complete. sent Tribridget message. Andressa Abraham APRN.CNP July 28, 2023 12:27 PM Please follow up with patient completed bloodwork today, next steps after labwork. documented in this encounter [facility] 07-28-2023 Telephone encounter Note Please follow up with patient completed bloodwork today, next steps after labwork. [facility] Work Phone: 06-15-2023 History of Presen [...] and birthday verified: Yes Location of patient: [place] Persons Present: patient and patient's spouse/significant other I have communicated my name and active licensure. The patient's identity and physical location were verified at the time of this visit. Either the patient or their legal veterans employment representative has been informed of the risks [...] which included preparing to see the patient, srua-iz-oggv patient care, completing clinical documentation, obtaining and/or [...] missed in proofreading. documented in this encounter [facility] 06-08-2023 Instructions Rahul Zheng MD - 06/08/2023 10:26 AM EDT Images from the original note were not included. Obstetrics and Gynecology [facility] Intrauterine Insemination Scheduling Instructions Please [...] you get your LH surge, please call [phone] between 8:00am - 12:00pm to schedule your insemination for the next day. If you call after 12pm, we may not be able to schedule your appointment. IUI s are done by appointment only. You will make 2 appointments - one for sperm drop off/collection, and one for the insemination. If you are using a frozen sample, please tell the clean in places operator this. You will get an arrival time and an IUI time. IUI is available at the following locations: [place]: [address] [place] [address], [place] [address] Weekday availability is limited depending on staffing. Not available on weekends. Not available for those with frozen sperm. Check in location for sperm wash and IUI: 2nd floor, room 208. The sperm wash takes 60-90 minutes. [place]: [address] [facility], [place] [address] Weekday availability is limited depending on staffing. Not available on weekends. Not available for those with frozen sperm. Check in location for sperm wash: the 2nd floor Urology/Andrology. The sperm wash takes 60-90 minutes. They will tell you what time to crab picker the sample. Check in location for IUI: 3rd floor OB Specialties Desk. (You will have to crab picker the sample from 2nd floor Urology and bring it with you.) [place]: [address], [address] [place] [phone] Available every day, including weekends and holidays (except [place] and New Years.) Available for IUI using [...] to do another IUI: Call the front end wheel loader operator to make sure you are financially cleared. Ask to speak to an NELLY to confirm your treatment plan. Important phone number: [phone] documented [address] encounter [facility] 06-08-2023 History of Presen t illness [...] visit. Either the patient or their legal veterans employment representative has been informed of the risks [...] been prescribed Wegovy. She is a non-smoker. 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 documented in this encounter [facility] 03-16-2023 Hospital Discharg e instructions Patient Education 03/16/2023 16:12:49 Wrist Pain, Adult, Kntl-[id number] Wrist Pain, Adult There are many things [...] to any changes in your symptoms. Take ocbl-rhe-[id number] and prescription medicines only as told by [...] provider. Document Revised: 02/02/2020 Document Reviewed: 02/02/2020 [employer] Patient Education 2022 [employer]. [facility] Evaluation + Plan note No data available for this section [facility] Evaluation note Diagnosis Procreative management counseling- Primary Other procreative management counseling and advice BMI 34.0-34.9,adult Body Mass Index 34.0-34.9, adult [facility] Diagnosis Encounter for fertility planning- Primary Other specified procreative management Encounter for other genetic testing of female for procreative management [facility] Treatment plan provided- Primary [facility] Diagnosis Encounter for fertility planning- Primary Other specified procreative management [facility] Diagnosis Procreation management investigation and testing- Primary Other investigation and testing for procreative management [facility] Diagnosis Female infertility- Primary Female infertility of unspecified origin [facility] Diagnosis Reproductive mgmt, infertility due to male factor- Primary Female infertility of other specified origin [facility] Diagnosis Procreative management- Primary Unspecified procreative management [facility]* Diagnosis Female infertility- Primary Female infertility of unspecified origin [facility]* Diagnosis Encounter for artificial insemination- Primary Artificial insemination [facility] Diagnosis Encounter for test, result positive- Primary examination or test, positive result documented in this encounter [facility] note* Diagnosis resulting from assisted reproductive technology in first trimester- Primary [facility] Diagnosis resulting from assisted reproductive technology in first trimester [facility]* Diagnosis Treatment plan provided- Primary documented in this encounter [facility]* Diagnosis Missed menses , unspecified gestational age Encounter for supervision of normal first in first trimester [facility] Diagnosis Infertility, female- Primary BMI 37.0-37.9, adult Morbid obesity ([facility]) Morbid obesity [facility]* Diagnosis Well woman exam with routine gynecological exam Routine gynecological examination Screening, , for anatomic survey Encounter for anatomic survey Vaginal discharge Leukorrhea, not specified as infective STD exposure Second trimester state, incidental 16 weeks gestation of Mass of right breast, unspecified quadrant Neoplasm of unspecified behavior of breast Other acne [facility]* Diagnosis Encounter for anatomic survey- Primary [facility] Diagnosis Encounter for anatomic survey- Primary Obesity affecting in second trimester, unspecified obesity type Class 1 obesity without serious comorbidity with body mass index (BMI) of 34.0 to 34.9 in adult, unspecified obesity type 23 weeks gestation of state, incidental [facility]* Diagnosis Second trimester state, incidental 26 weeks gestation of Diabetes mellitus screening Screening for diabetes mellitus size inconsistent with dates [facility]* Diagnosis Third trimester state, incidental 29 weeks gestation of documented in this encounter [facility]* Diagnosis Third trimester state, incidental 31 weeks gestation of documented in this encounter [facility]* Diagnosis Third trimester state, incidental 33 weeks gestation of Gestational diabetes mellitus (GDM), antepartum, gestational diabetes method of control unspecified documented in this encounter [facility]* Diagnosis 35 weeks gestation of Third trimester state, incidental Gastroesophageal reflux in documented in this encounter [facility]* Diagnosis 36 weeks gestation of Third trimester state, incidental documented in this encounter [facility] Discharge instructions No data available for this section [facility] No data available for this section [facility] Reason for referral (narrative)* Diagnostic Procedure Only (Routine) - Open Specialty Diagnoses / Procedures Referred By Jose L t Referred To Contact [facility] Diagnoses resulting from assisted reproductive technology in first trimester Procedures OBSTETRIC ULTRASOUND WHI US PREG UTERUS AFTER 1ST TRIMEST GESTATION Andressa Abraham APRN.HEAD OF HISTORY [address] [id number] [place] [id number] [place] [phone] Referral ID Status Reason Start Date Expiration Date V isits Requested Visits Authorized [id number] Open Auto-Generate d Referral 01/20/2024 01/19/2025 1 1 [facility] for visit Narrative* Diagnostic Procedure Only (Routine) - Closed Specialty Diagnoses / Procedures Referred By Jose L t Referred To Contact [facility] Diagnoses resulting from assisted reproductive technology in first trimester Procedures OBSTETRIC ULTRASOUND WHI US PREG UTERUS AFTER 1ST TRIMEST GESTATION Andressa Abraham APRN.HEAD OF HISTORY [address] [id number] [place] [address] [place] [phone] Referral ID Status Reason Start Date Expiration Date V isits Requested Visits Authorized [id number] Closed Auto-Generate d Referral 01/27/2024 03/29/2024 1 1 [facility] for visit Narrative* Diagnostic Procedure Only (Routine) - Closed Specialty Diagnoses / Procedures Referred By Contac t Referred To Contact [facility] Diagnoses Encounter for anatomic survey Procedures OBSTETRIC ULTRASOUND WHI US PREG UTERUS AFTER 1ST TRIMEST GESTATION Tristan Sosa APRN.HEAD OF HISTORY [address] [facility] [place] [address] Phone: tel: fax: [facility] [address] [place] [address] Referral ID Status Reason Start Date Expiration Date V isits Requested Visits Authorized [id number] Closed Auto-Generate d Referral 05/30/2024 03/29/[address] [facility] Summary Purpose Family History No Family [...] Referral Specialty Diagnoses / Procedures Referred By Contscooter t Referred To Contact Obstetrics and Gynecology Diagnoses Infertility, female Procedures [facility] OFFICE/OUTPATIENT NEW HIGH MDM 60 MINUTES Karen Bolanos MD [address] [place] [address] Patsy Blanco, DO [address] [address] Referral ID Status Reason Start Date Expiration Date Visits Requested Visits Authorized [id number] Pending Review Specialty Services Required 12/28/2023 06/25/2024 1 1 Additional Source Comments INFORMATION SOURCE (unrecogn ized section and content) DATE CREATED AUTHOR 09/21/2017 [facility] DATE CREATED AUTHOR AUTHOR'S ORGANIZ ATION 03/12/2021 [facility] DATE CREATED AUTHOR AUTHOR'S ORGANIZ ATION 03/16/2021 [facility] DATE CREATED AUTHOR AUTHOR'S ORGANIZ ATION 03/26/2022 [facility] DATE CREATED AUTHOR AUTHOR'S ORGANIZ ATION 02/29/2024 [facility] DATE CREATED AUTHOR AUTHOR'S ORGANIZ ATION 08/06/2024 [facility] DATE CREATED AUTHOR AUTHOR'S ORGANIZ ATION 09/01/2024 [facility] EPIC <item> Privacy Markings (unrecogniz ed section and content) Section Author: Smita Tello PROHIBITION ON REDISCLOSURE OF CONFIDENTIAL INFORMATION This notice accompanies a disclosure of information concerning a client made to you with the consent of such client. Patient Care team informatio n (unrecognized section and content) Freezer Assistant Relationship Specialty Start Date End Date Karen Bolanos MD [address] [place] [address] PCP - [facility] 11/10/22 Karen Bolanos MD [address] [place] [address] PCP - [facility] 12/28/22 Freezer Assistant Relationship Specialty Start Date End Date Karen Bolanos MD [address] [place] [address] PCP - [facility] 11/10/22 Karen Bolanos MD [address] [place] [address] PCP - [facility] 12/28/22 Freezer Assistant Relationship Specialty Start Date End Date Karen Bolanos MD [address] [place] [address] PCP - [facility] 11/10/22 Freezer Assistant Relationship Specialty Start Date End Date Karen Bolanos MD [address] [place] [address] PCP - General Family Medicine 11/10/22 Freezer Assistant Relationship Specialty Start Date End Date Karen Bolanos MD [address] [place] [address] PCP - General Family Medicine 11/10/22 Karen Bolanos MD [address] [place] [address] PCP - [facility] 12/28/22 Freezer Assistant Relationship Specialty Start Date End Date Karen Bolanos MD [address] [place] [address] PCP - General [facility] Medicine 11/10/22 Freezer Assistant Relationship Specialty Start Date End Date Karen Bolanos MD [address] [place] [address] PCP - General [facility] Medicine 11/10/22 Freezer Assistant Relationship Specialty Start Date End Date Karen Bolanos MD [address] [place] [address] PCP - General [facility] Medicine 11/10/22 Freezer Assistant Relationship Specialty Start Date End Date Karen Bolanos MD [address] [place] [address] PCP - General [facility] Medicine 11/10/22 Freezer Assistant Relationship Specialty Start Date End Date Karen Bolanos MD [address] [place] [address] PCP - General [facility] Medicine 11/10/22 Freezer Assistant Relationship Specialty Start Date End Date Karen Bolanos MD [address] [place] [address] PCP - General Family Medicine 11/10/22 Freezer Assistant Relationship Specialty Start Date End Date Karen Bolanos MD [address] [place] [address] PCP - General Family Medicine 11/10/22 Freezer Assistant Relationship Specialty Start Date End Date Karen Bolanos MD [address] [place] [address] PCP - General Family Medicine 11/10/22 Freezer Assistant Relationship Specialty Start Date End Date Karen Bolanos MD [address] [place] [address] PCP - General Family Medicine 11/10/22 Freezer Assistant Relationship Specialty Start Date End Date Karen Bolanos MD [address] [place] [address] PCP - General Family Medicine 11/10/22 Freezer Assistant Relationship Specialty Start Date End Date Karen Bolanos MD [address] [place] [address] PCP - General Family Medicine 11/10/22 Freezer Assistant Relationship Specialty Start Date End Date Karen Bolanos MD [address] [place] [address] PCP - General Family Medicine 11/10/22 Source Comments (unrecognize d section and content) In the event this informatio n is protected by the Federal Confidentiality of Alcohol and Drug Abuse Patient Records regulations: The Federal rules restrict any use of the information to criminally investigate or prosecute any alcohol or drug abuse patient.[facility] event this information is protected by the Federal Confidentiality of Alcohol and Drug Abuse Patient Records regulations: The Federal rules restrict any use of the information to criminally investigate or prosecute any alcohol or drug abuse patient.[facility] event this information is protected by the Federal Confidentiality of Alcohol and Drug Abuse Patient Records regulations: The Federal rules restrict any use of the information to criminally investigate or prosecute any alcohol or drug abuse patient.[facility] the event this information is protected by the Federal Confidentiality of Alcohol and Drug Abuse Patient Records regulations: The Federal rules restrict any use of the information to criminally investigate or prosecute any alcohol or drug abuse patient.[facility] event this information is protected by the Federal Confidentiality of Alcohol and Drug Abuse Patient Records regulations: The Federal rules restrict any use of the information to criminally investigate or prosecute any alcohol or drug abuse patient.[facility] event this information is protected by the Federal Confidentiality of Alcohol and Drug Abuse Patient Records regulations: The Federal rules restrict any use of the information to criminally investigate or prosecute any alcohol or drug abuse patient.[facility] the event this information is protected by the Federal Confidentiality of Alcohol and Drug Abuse Patient Records regulations: The Federal rules restrict any use of the information to criminally investigate or prosecute any alcohol or drug abuse patient.[facility] the event this information is protected by the Federal Confidentiality of Alcohol and Drug Abuse Patient Records regulations: The Federal rules restrict any use of the information to criminally investigate or prosecute any alcohol or drug abuse patient.[facility] the event this information is protected by the Federal Confidentiality of Alcohol and Drug Abuse Patient Records regulations: The Federal rules restrict any use of the information to criminally investigate or prosecute any alcohol or drug abuse patient.[facility] the event this information is protected by the Federal Confidentiality of Alcohol and Drug Abuse Patient Records regulations: The Federal rules restrict any use of the information to criminally investigate or prosecute any alcohol or drug abuse patient.[facility] the event this information is protected by the Federal Confidentiality of Alcohol and Drug Abuse Patient Records regulations: The Federal rules restrict any use of the information to criminally investigate or prosecute any alcohol or drug abuse patient.[facility] the event this information is protected by the Federal Confidentiality of Alcohol and Drug Abuse Patient Records regulations: The Federal rules restrict any use of the information to criminally investigate or prosecute any alcohol or drug abuse patient.[facility] the event this information is protected by the Federal Confidentiality of Alcohol and Drug Abuse Patient Records regulations: The Federal rules restrict any use of the information to criminally investigate or prosecute any alcohol or drug abuse patient.[facility] the event this information is protected by the Federal Confidentiality of Alcohol and Drug Abuse Patient Records regulations: The Federal rules restrict any use of the information to criminally investigate or prosecute any alcohol or drug abuse patient.[facility] the event this information is protected by the Federal Confidentiality of Alcohol and Drug Abuse Patient Records regulations: The Federal rules restrict any use of the information to criminally investigate or prosecute any alcohol or drug abuse patient.[facility] the event this information is protected by the Federal Confidentiality of Alcohol and Drug Abuse Patient Records regulations: The Federal rules restrict any use of the information to criminally investigate or prosecute any alcohol or drug abuse patient.[facility] the event this information is protected by the Federal Confidentiality of Alcohol and Drug Abuse Patient Records regulations: The Federal rules restrict any use of the information to criminally investigate or prosecute any alcohol or drug abuse patient.[facility] the event this information is protected by the Federal Confidentiality of Alcohol and Drug Abuse Patient Records regulations: The Federal rules restrict any use of the information to criminally investigate or prosecute any alcohol or drug abuse patient.[facility] the event this information is protected by the Federal Confidentiality of Alcohol and Drug Abuse Patient Records regulations: The Federal rules restrict any use of the information to criminally investigate or prosecute any alcohol or drug abuse patient.[facility] the event this information is protected by the Federal Confidentiality of Alcohol and Drug Abuse Patient Records regulations: The Federal rules restrict any use of the information to criminally investigate or prosecute any alcohol or drug abuse patient.[facility] Reason for Visit (unrecogniz ed section and content) Reason Comments Consult Reason Comments donor sperm teach Reason Comments Lila bloodwork completed today Reason Comments +ovulation test Thu& d14 & 15 partne r calling Reason Comments Treatment Planning Specialty Diagnoses / Procedures Referred By Contac t Referred To Contact REPRODUCTIVE ENDOCRINOLOGY & FERTILITY Diagnoses Encounter for procreative management, unspecified Encounter for other procreative management Procedures THAWING CRYOPRESERVED SPERM/SEMEN EACH ALIQUOT ARTIFIC INSEMINATION INTRAUTERIN Andressa Abraham, NATURAL RESOURCE TECHNICIAN.HEAD OF HISTORY [address] [place] [address] [facility] [address] [place] [address] Referral ID Status Reason Start Date Expiration Date V isits Requested Visits Authorized [id number] Closed Financial Clearance Required - Self Pay Patient Cleared - True Self-Pay required payment collected Do Not Bill Insurance - SP patient 12/04/2023 03/03/2024 2 2 Specialty Diagnoses / Procedures Referred By Contac t Referred To Contact [facility]ODUCT[facility] ENDOCRINOLOGY & FERTILITY Diagnoses Encounter for other procreative management Encounter for procreative management, unspecified Procedures ARTIFIC INSEMINATION INTRAUTERIN THAWING CRYOPRESERVED SPERM/SEMEN EACH ALIQUOT Andressa Abraham, NATURAL RESOURCE TECHNICIAN.HEAD OF HISTORY [address] [place], [place] [id number] [facility] [address] [place] [address] Referral ID Status Reason Start Date Expiration Date V isits Requested Visits Authorized [id number] Closed Patient Cleared - True Self-Pay required [...] BE BASED ON THE PRIMARY CLINICAL RECORDS. [employer] [facility]. provides no warranty or guarantee of the accuracy or completeness of information in this document.
--- OUTSIDE RECORDS SUMMARY | 2024-09-03 13:10 | XMS_ITS | Encounter Summary ---
Author Organization [facility] Address [facility] [place] [address] Care Team Providers Care Safety Sealer Name Role Phone Unavailable Primary Care Provider Unavailabl e Source Comments In the event this information is protected by the Federal Confidentiality of Alcohol and Drug AbusePatient Records regulations: The Federal rules restrict any use of the information to criminally investigate or prosecute any alcohol or drug abuse patient.[facility] Reason for Visit * Reason Comments Lila ordered sperm next step Encounter Details Date Type Department Care Team (Late st Contact Info) Description 11/13/2023 Telephone Reproductive Endocrinology Infertility [address] [place] [address] Andressa Abraham APRN.ENDOCRINOLOGY NURSE [address] [facility] [address] [place] [address] Lila ordered sperm next step Social History [...] risk 5 06/08/2023 Data from: https://www.[email or web address].medicine.[email or web address].edu/. Last address used for calculation [address] [...]
--- OUTSIDE RECORDS SUMMARY | 2024-09-03 13:10 | XMS_ITS | Encounter Summary ---
Author Organization [facility] Address [facility] [place] [address] Care Team Providers Care Geodetic Computator Name Role Phone Unavailable Primary Care Provider Unavailabl e Source Comments In the event this information is protected by the Federal Confidentiality of Alcohol and Drug AbusePatient Records regulations: The Federal rules restrict any use of the information to criminally investigate or prosecute any alcohol or drug abuse patient.[facility] Reason for Visit * Reason Comments Can they order the donor sperm samples pauline pt rt call Encounter Details Date Type Department Care Team (Late st Contact Info) Description 10/29/2023 Telephone Reproductive Endocrinology Infertility [address] [place] [address] Andressa Abraham APRN.OIL EXPELLER OPERATOR [address] [facility] [address] [place] [address] Can they order the donor sperm samples; [...] risk 5 06/08/2023 Data from: https://www.[email or web address].medicine.[facility]/. Last address used for calculation [address] [...]
--- OUTSIDE RECORDS SUMMARY | 2024-09-03 13:10 | XMS_ITS | Encounter Summary ---
Author Organization [facility] Address [address] [place] [address] Care Team Providers Care Billet Straightener Name Role Phone Karen Bolanos MD Primary Care Provider [phone] Encounter Details Date Type Department Care Team (Late st Contact Info) Description 04/29/2024 Orders Only [facility] [address] [place] [address] Shanika Rubi [facility] [place] [address] Social History Tobacco Use Types Packs/Day Years [...] [facility] [address] [place] [address] Andrea Prieto, [address] [facility] [place] [address] documented as of this encounter Goals Goal Patient Goal Type Associated Problems Recent Progress Patient-Stated? Author Reminders Care Plan OB Reminders No Open Scheduling, Background documented as of this encounter Procedures Procedure Name Priority Date/Time Associated Diagnosis Comments PAP SMEAR Routine 04/19/2024 12:00 AM EST documented in this encounter Results * Pap Smear (04/19/2024 12:00 AM EST) Swab Cervical swab / Unknown Andrea Prieto DO LAB CYTOLOGY ORDERABLES Final Re sult EXTERNAL LAB documented in this encounter Visit Diagnoses Not on filedocumented in this encounter Additional Health Concerns Active Problems Noted Date Diagnosed Date OB Reminders 03/28/2024 documented as of this encounter Care Teams Billet Straightener Relationship Specialty Start Date End Date Karen Bolanos MD [address] [place] [address] PCP - General Family Medicine 11/10/22 documented as of this encounter
--- OUTSIDE RECORDS SUMMARY | 2024-09-03 13:10 | XMS_ITS | Encounter Summary ---
Author Organization [facility] Address [address] [place] [address] Care Team Providers Care Aircraft Life Support Fitter Name Role Phone Karen Bolanos MD Primary Care Provider [phone] Karen Bolanos MD Unavailable [phone] Encounter Details Date Type Department Care Team (Late st Contact Info) Description 11/10/2022 Abstract [facility] NE [address] [place] [address] Karen Bolanos MD [address] [place] [address] Social History Tobacco Use Types Packs/Day Years [...] OB [address] [facility] [place] [address] Andrea Prieto, [address] [facility] [place] [address] documented as of this encounter Visit Diagnoses Not on filedocumented in this encounter Care Teams Aircraft Life Support Fitter Relationship Specialty Start Date End Date Karen Bolanos MD [address] [place] [address] PCP - General Family Medicine 11/10/22 Karen Bolanos MD [address] [place] [address] PCP - Nish Commercial 12/28/22 5 documented as of this encounter
--- OUTSIDE RECORDS SUMMARY | 2024-09-03 13:10 | XMS_ITS | Encounter Summary ---
Author Organization [facility] Address [address] [place] [address] Care Team Providers Care Children'S Service Worker Name Role Phone Karen Bolanos MD Primary Care Provider [phone] Encounter Details Date Type Department Care Team (Late st Contact Info) Description 07/12/2024 Abstract [facility] BCP OB [address] [facility] [place] [address] Karyna Craig PA [address] [facility] [address] [place], [facility] Social History Tobacco Use Types Packs/Day Years [...] PM EDT Routine [facility] BCP OB [address] [facility] [place] [address] Andrea Prieto, [address] [facility] [place] [address] documented as of this encounter Goals Goal Patient Goal Type Associated Problems Recent Progress Patient-Stated? Author Reminders Care Plan OB Reminders No Open Scheduling, Background documented as of this encounter Visit Diagnoses Not on filedocumented in this encounter Additional Health Concerns Active Problems Noted Date Diagnosed Date OB Reminders 03/28/2024 documented as of this encounter Care Teams Children'S Service Worker Relationship Specialty Start Date End Date Karen Bolanos MD [address] [place] [address] PCP - General Family Medicine 11/10/22 documented as of this encounter
--- OUTSIDE RECORDS SUMMARY | 2024-09-03 13:10 | XMS_ITS | Encounter Summary ---
Author Organization [facility] Address [facility] [place] [address] Care Team Providers Care Tool Maintenance Worker Name Role Phone Unavailable Primary Care Provider Unavailabl e Source Comments In the event this information is protected by the Federal Confidentiality of Alcohol and Drug AbusePatient Records regulations: The Federal rules restrict any use of the information to criminally investigate or prosecute any alcohol or drug abuse patient.[facility] Encounter Details Date Type Department Care Team (Latest Contact Info) Description 11/23/2023 Patient Msg Reproductive Endocrinology Infertility [address] [place] [address] Andressa Abraham APRN.LINE CLEARANCE FOREMAN [address] [place] [address] IUI Scheduling Instructions Social History Tobacco Use [...] is lower risk 5 06/08/2023 Data from: https://www.neighborhoodatlas.medicine.[facility].edu/. Last address used for calculation [address] [...]
--- OUTSIDE RECORDS SUMMARY | 2024-09-03 13:10 | XMS_ITS | Encounter Summary ---
Author Organization [facility] Address [facility] [place] [address] Care Team Providers Care Pipe Organ Technician Name Role Phone Unavailable Primary Care Provider Unavailabl e Source Comments In the event this information is protected by the Federal Confidentiality of Alcohol and Drug AbusePatient Records regulations: The Federal rules restrict any use of the information to criminally investigate or prosecute any alcohol or drug abuse patient.[facility] Encounter Details Date Type Department Care Team (Latest Contact Info) Description 12/01/2023 Get Medical Advice Reproductive Endocrinology Infertility [address] [place] [address] Andressa Abraham APRN.STATION SUPERINTENDENT [address] [place] [address] Financial clearance Social History Tobacco Use Types [...] is lower risk 5 06/08/2023 Data from: https://www.neighborhoodatlas.medicine.[facility].edu/. Last address used for calculation [address] [...]
--- OUTSIDE RECORDS SUMMARY | 2024-09-03 13:10 | XMS_ITS | Encounter Summary ---
Author Organization [facility] Address [address] [place] [address] Care Team Providers Care Teletypesetter Monitor Name Role Phone Karen Bolanos MD Primary Care Provider [phone] Encounter Details Date Type Department Care Team (Late st Contact Info) Description 08/27/2024 Clinisync Result Encounter [facility] External Department Unsolicited Nina Prieto, DO [address] [place] [address] Social History Tobacco Use Types [...] BCP OB [address] [place] [address] Nina Prieto, DO [address] [facility] [place] [address] documented as of this encounter Goals Goal [...] PM EDT Narrative 08/27/2024 2:02 PM EDT [place] [id number] Ultrasound Report Signed Patient: EDUAR CARPENTER MR#: [id number] : 1990 Acct:[id number] Age/Sex: 34 / F ADM Date: 08/27/24 Loc: [place] [address]: Nina Prieto D.O. Ordering Physician: Nina Prieto D.O. Date of Service: 08/27/24 Procedure(s): US OB BPP w non-stress Accession Number(s): [id number] cc: Nina Prieto D.O.; NORBERTO BOLANOS [address] [address] Patient Name: EDUAR CARPENTER MRN: [id number] date: 1990 Sex: F Assigned Patient Location: [facility] Current Patient Location: [facility] Accession/Order Number: [id number] Exam Date: 08/27/2024 13:58 Report Date: 08/27/2024 [...] Nava M.D. 08/27/2024 2:00 PM Dictation Location: [employer] Electronically authenticated by: [id number] Y Date: 08/27/2024 14:00 Dictated By: Deepak Nava D.O. Signed By: 08/27/24 1402 DD/ 99 TD/TT: Information Scientist: Procedure Note Radiology, Radiologist, MD - 08/27/2024 [place] [address] Ultrasound Report Signed Patient: EDUAR CARPENTER KMR#: [id number] : 1990Acct:[id number] Age/Sex: 34 / FADM Date: 08/27/24 Loc: [facility] 250-[address]: Nina Prieto D.O. Ordering Physician: Nina Prieto D.O. Date of Service: 08/27/24 Procedure(s): US OB BPP w non-stress Accession Number(s): [id number] cc: Nina Prieto D.O.; NORBERTO BOLANOS [place] [id number] Patient Name: EDUAR CARPENTER MRN: [id number] date: 1990 Sex: F Assigned Patient Location: [facility] Current Patient Location: [facility] Accession/Order Number: [id number] Exam Date: 08/27/2024 13:58 Report Date: 08/27/2024 [...] Nava M.D. 08/27/2024 2:00 PM Dictation Location: [employer] Electronically authenticated by: [id number] Y Date: 4:00 Dictated By: Deepak Nava D.O. Signed By:08/27/24 1402 DD/ 1400 TD/TT: Information Scientist: us Nina Conner DO [facility] Final Result documented in this encounter Visit Diagnoses Not on filedocumented in this encounter Additional Health Concerns Active Problems Noted Date Diagnosed Date OB Reminders 03/28/2024 documented as of this encounter Care Teams Teletypesetter Monitor Relationship Specialty Start Date End Date Karen Bolanos MD [address] [place] [address] PCP - General Family Medicine 11/10/22 documented as of this encounter
--- OUTSIDE RECORDS SUMMARY | 2024-09-03 13:11 | XMS_ITS | Encounter Summary ---
Author Organization [facility] Address [facility] [place] [address] Care Team Providers Care Customs Brokerage Agent Name Role Phone Unavailable Primary Care Provider Unavailabl e Source Comments In the event this information is protected by the Federal Confidentiality of Alcohol and Drug AbusePatient Records regulations: The Federal rules restrict any use of the information to criminally investigate or prosecute any alcohol or drug abuse patient.[facility] Encounter Details Date Type Department Care Team (Latest Contact Info) Description 06/15/2023 Patient Msg Reproductive Endocrinology Infertility [address] [place] [address] Andressa Abraham APRN.MOSAIC TECHNICIAN [address] [place] [address] Donor Sperm Handout Social History Tobacco Use [...] risk 5 06/08/2023 Data from: https://www.neighborhoodatlas.medicine.[facility].edu/. Last address used for calculation [address] [...]
--- OUTSIDE RECORDS SUMMARY | 2024-09-03 13:11 | XMS_ITS | Encounter Summary ---
Author Organization [facility] Address [address] [place] [address] Care Team Providers Care Office Correspondent Name Role Phone Karen Bolanos MD Primary Care Provider [phone] Encounter Details Date Type Department Care Team (Late st Contact Info) Description 08/23/2024 Bamboo flowsheet [facility] OB [address] [place] [phone] Andrea Prieto, DO [address] [place], [facility]11 Social History Tobacco Use Types Packs/Day Years [...] PM EDT Routine [facility] BCP OB [address] [facility] [place] [address] Andrea Prieto, [address] [facility] [place] [address] documented as of this encounter Goals Goal Patient Goal Type Associated Problems Recent Progress Patient-Stated? Author Reminders Care Plan OB Reminders No Open Scheduling, Background documented as of this encounter Visit Diagnoses Not on filedocumented in this encounter Additional Health Concerns Active Problems Noted Date Diagnosed Date OB Reminders 03/28/2024 documented as of this encounter Care Teams Office Correspondent Relationship Specialty Start Date End Date Karen Bolanos MD [address] [place] [address] PCP - General Family Medicine 11/10/22 documented as of this encounter
--- OUTSIDE RECORDS SUMMARY | 2024-09-03 13:11 | XMS_ITS | Clinical Summary ---
Author Organization [facility] Address [address] [place] [address] Care Team Providers Care Assurance Manager Insurance Name Role Phone Karen Bolanos MD Primary Care Provider [phone] Allergies No known active allergies Medications omeprazole [...] Description 08/31/2024 11:20 AM EDT Routine [facility] [place] [address] [place] [address] Karyna Craig PA 36 weeks gestation of ; Third trimester 08/31/2024 Bamboo flowsheet [facility] [place] [address] [place] [address] Karyna Craig PA 08/29/2024 Abstract [facility] BCP OB [address] [place] [address] [place] [address] Nina Prieto, DO 08/27/2024 Clinisync Result Encounter N[facility] External Department Unsolicited Nina Prieto, DO 08/24/2024 Telephone [facility] OB [address] [place] [address] [place] [address] [phone] Shanika Rubi MA 08/23/2024 2:40 PM EDT Routine [facility] OB [address] [place] [address] [place] [address] Nina Prieto, DO 35 weeks gestation of ; Third trimester ; Gastroesophageal reflux in 08/23/2024 Bamboo flowsheet [facility] OB [address] [place] [address] [place] [address] Nina Prieto, DO 08/20/2024 Clinisync Result Encounter [facility] External Department Unsolicited Nina Prieto, DO 08/19/2024 Telephone [facility] [address] [place] [phone] Nina Prieto, DO 08/14/2024 Clinisync Result Encounter [facility] External Department Unsolicited Nina Prieto, DO 08/14/2024 Clinisync Result Encounter [facility] External Department Unsolicited Nina Prieto, DO 08/09/2024 Abstract [facility] OB [address] [place] [address] [place] [address] Nina Prieto, DO 08/08/2024 2:10 PM EDT Routine [facility] OB [address] [place] [address] [place] [address] Nina Prieto, DO Third trimester ; 33 weeks gestation of ; Gestational diabetes mellitus (GDM), antepartum, gestational diabetes method of control unspecified 08/08/2024 Bamboo flowsheet [facility] OB [address] [place] [address] [place] [address] Nina Prieto, DO 08/01/2024 Telephone [facility] OB [address] [facility] [place] [address] Nina Prieto DO 07/25/2024 10:40 AM EDT Routine [facility] OB [address] [facility] [place] [address] Steffanie Gerard, ABDI Third trimester ; 31 weeks gestation of 07/25/2024 Bamboo flowsheet [facility] OB [address] [place] [address] [place] [address] Steffanie Gerard, ABDI 07/12/2024 Abstract [facility] OB [address] [facility] [place] [address] Karyna Craig PA 07/12/2024 Telephone [facility] OB [address] [facility] [place] [address] Karyna Craig PA 07/11/2024 11:00 AM EDT Routine [facility] OB [address] [place] [address] [place] [address] Nina Prieto DO Third trimester ; 29 weeks gestation of ; Gestational diabetes mellitus (GDM), antepartum, gestational diabetes method of control unspecified 07/11/2024 10:30 AM EDT Ancillary Procedure [facility] [address] [place] [address] 07/08/2024 Clinisync Result Encounter [facility] External Department Unsolicited Karyna Craig PA 06/22/2024 1:20 PM EDT Routine [facility] OB [address] [facility] [place] [address] Nina Prieto DO Second trimester ; 26 weeks gestation of ; Diabetes mellitus screening; size inconsistent with dates 06/22/2024 Bamboo flowsheet [facility] OB [address] [facility] [place] [address] Nina Prieto DO from Last 3 Months Immunizations Immunization Administration Dates Next Due DTaP 02/08/1993, 2,1991,1991 DTaP, Unspecified 02/08/1993, 2,1991,1991 Hep B, Adolescent or Pediatric 12/08/2003 HiB, unspecified 02/08/1993, 2,1991,1991 Hib (HbOC) 02/08/1993, 2,1991,1991 Influenza, injectable, quadrivalent 06/15/2023 Influenza, injectable, quadr ivalent, preservative free 12/10/2016 MMR 09/13/2023,12/08/2003,10/27/1996 Novel [id number], preservative-free 02/16/2009 Polio, Unspecified 02/08/1993,1991, 992 Tetanus [...] PM EDT Routine [facility] BCP OB [address] [facility] [place] [address] Nina Prieto, DO [address] [facility] [place] [address] Health Maintenance Due Date Last Done Comments [...] EDT Second trimester 26 weeks gestation of PAP SMEAR Routine 04/19/2024 12:00 AM EST [...] Positive Urine 08/31/2024 11:5 9 AM EDT us Karyna BENITES POINT OF CARE TEST ENTER/EDIT OR DERABLES Final Result * US OB BPP W NON-STRESS (08/27/2024 2:00 PM EDT) Only the most recent of3 resultswithin the time period is included. Anatomical Region Laterality Modality Other 08/27/2024 2:00 PM EDT Narrative 08/27/2024 2:02 [place] [address] Ultrasound Report Signed Patient: EDUAR CARPENTER MR#: [id number] : 1990 Acct:[id number] Age/Sex: 34 / F ADM Date: 08/27/24 Loc: [facility] 250-[address]: Nina Prieto D.O. Ordering Physician: Nina Prieto D.O. Date of Service: 08/27/24 Procedure(s): US OB BPP w non-stress Accession Number(s): [id number] cc: Nina Prieto D.O.; NORBERTO BOLANOS [place] [address] Patient Name: EDUAR CARPENTER MRN: [id number] date: 1990 Sex: F Assigned Patient Location: [facility] Current Patient Location: [facility] Accession/Order Number: [id number] Exam Date: 08/27/2024 13:58 Report Date: 08/27/2024 [...] Nava M.D. 08/27/2024 2:00 PM Dictation Location: [facility] Electronically authenticated by: [id number] Y Date: 08/27/2024 14:00 Dictated By: Deepak Nava D.O. Signed By: 08/27/24 140 DD/ 1400 TD/TT: Chair Spring Assembler: Procedure Note Radiology, Radiologist, - 08/27/2024 [place] [address] Ultrasound Report Signed Patient: EDUAR CARPENTER KMR#: [id number] : 1990Acct:[id number] Age/Sex: 34 / FADM Date: 08/27/24 Loc: [facility] 250-[address]: Nina Prieto D.O. Ordering Physician: Nina Prieto D.O. Date of Service: 08/27/24 Procedure(s): US OB BPP w non-stress Accession Number(s): [id number] cc: Nina Prieto D.O.; NORBERTO BOLANOS [place] [id number] Patient Name: EDUAR CARPENTER MRN: [id number] date: 1990 Sex: F Assigned Patient Location: [facility] Current Patient Location: [facility] Accession/Order Number: [id number] Exam Date: 08/27/2024 13:58 Report Date: 08/27/2024 [...] Nava M.D. 08/27/2024 2:00 PM Dictation Location: [place] [address] Electronically authenticated by: [id number] Y Date: 4:00 Dictated By: Deepak Nava D.O. Signed By:08/27/24 140 DD/ 1400 TD/TT: Chair Spring Assembler: Nina Prieto DO [facility] Final Result * US OB GROWTH (08/14/2024 9:06 AM EDT) Anatomical Region Laterality Modality Other 08/14/2024 9:06 AM EDT Narrative 08/14/2024 9:09 [place] [address] Ultrasound Report Signed Patient: EDUAR CARPENTER MR#: [id number] : 1990 Acct:[id number] Age/Sex: 34 / F ADM Date: 08/13/24 Loc: US Attending Dr: Nina Prieto D.O. Ordering Physician: Nina Prieto D.O. Date of Service: 08/13/24 Procedure(s): US OB growth Accession Number(s): [id number] cc: Nina Prieto D.O.; NORBERTO BOLANOS [place] [address] Patient Name: EDUAR CARPENTER MRN: [id number] date: 1990 Sex: F Assigned Patient Location: [place] Current Patient Location: Accession/Order Number: [id number] Exam Date: 08/14/2024 09:01 Report Date: 08/14/2024 [...] Blake M.D. 08/14/2024 9:06 AM Dictation Location: [place] [address] Electronically authenticated by: [id number] Y Date: 08/14/2024 09:06 Dictated By: Gunnar Blake M.D. Signed By: 08/14/24908 DD/ 5 TD/TT: Chair Spring Assembler: Procedure Note Radiology, Radiologist, MD - 08/14/2024 [place] [address] Ultrasound Report Signed Patient: EDUAR CARPENTER KMR#: [id number] : 1990Acct:[id number] Age/Sex: 34 / FADM Date: 08/13/24 Loc: US Attending Dr: Nina Prieto D.O. Ordering Physician: Nina Prieto D.O. Date of Service: 08/13/24 Procedure(s): US OB growth Accession Number(s): [id number] cc: Nina Prieto D.O.; NORBERTO BOLANOS [address] [address] Patient Name: EDUAR CARPENTER MRN: [id number] date: 1990 Sex: F Assigned Patient Location: Current Patient Location: Accession/Order Number: [id number] Exam Date: 08/14/2024 09:01 Report Date: 08/14/2024 [...] Blake M.D. 08/14/2024 9:06 AM Dictation Location: [employer] Electronically authenticated by: [id number] Y Date: 9:06 Dictated By: Gunnar Blake M.D. Signed By:08/14/24908 DD/ 5 TD/TT: Chair Spring Assembler: us Nina Conner DO [facility] Final [...] II, MD, PHD at 11-Jul-2024 11:47:38 PM [facility] Procedure Note Travis Solomon MD - 07/11/2024 EXAM: US OB FOLLOW [...] signed by TRAVIS SOLOMON II, MD, PHD [id number] 11:47:38 PM [facility] us Karyna BENITES IMG OB US PROCEDURES Final Resul t * (ABNORMAL) GLUCOSE 1 HOUR (07/08/2024 12:02 PM EDT) GLUCOSE 1 HOUR 202(H) <130 mg/dL [facility] 07/08/2024 12:0 2 PM EDT 07/08/2024 12:06 PM EDT Narrative [facility] - 07/08/2024 12:18 PM EDT us Karyna BENITES LAB BLOOD ORDERABLES Final Resul t [facility] * (ABNORMAL) ALL CBC WITH AUTO DIFF (07/08/2024 12:02 PM EDT) Pathologist [facility] TB WBC 8.1 4.0 - 11.0 10 [...] - 07/08/2024 12:15 PM EDT us Karyna Craig PA [facility] Final Result [facility] * Pap Smear (04/19/2024 12:00 AM EST) Swab Cervical swab / Unknown us Nina Prieto DO LAB CYTOLOGY ORDERABLES Final Re sult EXTERNAL LAB from Last 3 Months or Most Recently Relevant to Health Maintenance Additional Health Concerns Active Problems Noted Date Diagnosed Date OB Reminders 03/28/2024 Insurance [facility] Care Teams Assurance Manager Insurance Relationship Specialty Start Date End Date Karen Bolanos MD [address] [place] [address] PCP - General Family Medicine 11/10/22
--- OUTSIDE RECORDS SUMMARY | 2024-09-03 13:11 | XMS_ITS | Encounter Summary ---
Author Organization [facility] Address [address] [place] [address] Care Team Providers Care Superintendent House Name Role Phone Karen Bolanos MD Primary Care Provider Karen Bolanos MD Unavailable [phone] Encounter Details Date Type Department Care Team (Late st Contact Info) Description 03/14/2024 Abstract [facility] [address] [place] [address] Andrea Prieto, [address] [place], [place] [id number] Social History Tobacco Use Types Packs/Day Years [...] PM EDT Routine [facility] BCP OB [address] [facility] [place] [address] Andrea Prieto, [address] [facility] [place] [address] documented as of this encounter Visit Diagnoses Not on filedocumented in this encounter Care Teams Superintendent House Relationship Specialty Start Date End Date Karen Bolanos MD [address] [place] [address] PCP - General Family Medicine 11/10/22 Karen Bolanos MD [address] [place] [address] PCP - Nish Medina 12/28/22 5 documented as of this encounter
--- OUTSIDE RECORDS SUMMARY | 2024-09-03 13:11 | XMS_ITS | Encounter Summary ---
Author Organization [facility] Address [address] [place] [address] Care Team Providers Care Pineapple Plantation Manager Name Role Phone Karen Bolanos MD Primary Care Provider [phone] Karen Bolanos MD Unavailable Encounter Details Date Type Department Care Team (Late st Contact Info) Description 03/09/2024 Abstract [facility] [address] [place] [address] Andrea Prieto, [address] [place], [place] [address] Social History Tobacco Use Types Packs/Day Years [...] PM EDT Routine [facility] BCP OB [address] [place] [address] Andrea Prieto, [address] [facility] [place] [address] documented as of this encounter Visit Diagnoses Not on filedocumented in this encounter Care Teams Pineapple Plantation Manager Relationship Specialty Start Date End Date Karen Bolanos MD [address] [place] [address] PCP - General Family Medicine 11/10/22 Karen Bolanos MD [address] [place] [address] PCP - [place] [employer] 12/28/22 5 documented as of this encounter
--- OUTSIDE RECORDS SUMMARY | 2024-09-03 13:11 | XMS_ITS | Encounter Summary ---
Author Organization [facility] Address [address] [place] [address] Care Team Providers Care Skilled Nursing Facilities Professional Name Role Phone Karen Bolanos MD Primary Care Provider [phone] Encounter Details Date Type Department Care Team (Late st Contact Info) Description 08/24/2024 Telephone [facility] OB [address] [place] [address] Shanika Rubi [facility] [place] [address] Social History Tobacco Use Types Packs/Day Years [...] [facility] BCP OB [address] [place] [address] Andrea Prieto, DO [address] [facility] [place] [address] documented as of this encounter Goals Goal Patient Goal Type Associated Problems Recent Progress Patient-Stated? Author Reminders Care Plan OB Reminders No Open Scheduling, Background documented as of this encounter Visit Diagnoses Diagnosis Gastroesophageal reflux in documented in this encounter Additional Health Concerns Active Problems Noted Date Diagnosed Date OB Reminders 03/28/2024 documented as of this encounter Care Teams Skilled Nursing Facilities Professional Relationship Specialty Start Date End Date Karen Bolanos MD [address] [place] [address] PCP - General Family Medicine 11/10/22 documented as of this encounter
--- OUTSIDE RECORDS SUMMARY | 2024-09-03 13:11 | XMS_ITS | Clinical Summary ---
Author Organization [facility] Address [facility] [place] [address] Care Team Providers Care Household Manager Name Role Phone Unavailable Primary Care Provider [...] Care Team Description 07/20/2024 Telephone Maternal Medicine [address] [facility] [address] [place] [address] Historical from Last 3 Months Family History Medical [...] is lower risk 5 06/08/2023 Data from: https://www.neighborhoodatlas.[facility]/. Last address used for calculation [address] 06/08/2023 Comments No Sex and Gender Information [...] Cervical Cancer Screening 03/18/2016 03/18/2013 Covid-19 Vaccine (3 - 2023-2 5 season) 2023 08/17/2020, 07/20/2020 Influenza Vaccine (Season Ended) 2024 06/15/2023, 12/10/2016, 02/16/2009 HIV Screening Completed 07/28/2023 Hepatitis C Screening Completed 07/28/2023 Procedures Procedure Name Priority Date/Time Associated Diagnosis Comments HIV 1/2 COMBO WITH REFLEX TO DIFFERENTIATION Routine 07/28/2023 10:49 AM EDT Procreation management investigation and testing HEPATITIS C ANTIBODY IA WITH CONFIRMATION Routine 07/28/2023 10:49 AM EDT Procreation management investigation and testing PAP FLUID CERVICAL DIAGNOSTIC 03/18/2013 11:34 AM EST from Last 3 Months or Most Recently Relevant to Health Maintenance Results * HIV 1 2 COMBO(AG/AB),WITH REFLEX TO DIFFERENTIATION (07/28/2023 10:49 AM EDT) HIV 12 Combo (Ag/Ab) Nonreactive Nonreactive 07/28/2023 7:25 PM EDT [facility] HIV-1/2 AB (Confirmatory) 07/28/2023 7:25 PM EDT [facility] Comment:Test not indicated. HIV Interpretation 07/28/2023 7:25 PM EDT [facility] Comment: No evidence of HIV-1 or HIV-2 infection. Should recent infection be suspected, repeat testing may be considered 2-3 weeks after this draw. [place] Rev. Code 3701.243(E): This information has been [...] EDT 07/28/2023 10:49 AM EDT Andressa Abraham APRN.[facility] Final Result [facility] [address] [place] [address], * HEPATITIS C ANTIBODY IA WITH CONFIRMATION (07/28/2023 10:49 AM EDT) Hep C Antibody IA Negative Negative 07/28/2023 7:25 PM EDT [facility] Comment:The result suggests no evidence of active infection with Hepatitis C virus. Should recent infection be suspected, repeat testing may be considered 4-6 weeks after this draw. Blood BLOOD SPECIMEN / Unknown Venipuncture / Unknown 07/28/2023 10:49 AM EDT 07/28/2023 10:49 AM EDT us Andressa Abraham APRN.CNP LABORATORY Final Result [facility] [address] [facility] [address] [place] [address], [place] * PAP FLUID CERVICAL DIAGNOSTIC (03/18/2013 11:34 AM EST) Soil Fertility Extension Specialist [facility] DEPARTMENT OF PATHOLOGY CYTOLOGY REPORT [id number] Submitting Physician: Jacqui Villa MD Procedure Date: [...] from every slide are reviewed by a mechanical technical service specialist. TRAVIS Zuinga(ASCP) River Boat Captain Electronic Signature CLINICAL HISTORY DYSPLASIA [facility] 03/18/2013 11:3 4 AM EST 03/21/2013 9:19 AM EST us Jacqui Villa MD CYTOLOGY Final Result Performing Organization Address [facility] [employer] Phone Number [facility] [address] [place] [address] from Last 3 Months or Most Recently Relevant to Health Maintenance Insurance BLUE CARD PPO OOS
--- OUTSIDE RECORDS SUMMARY | 2024-09-03 13:11 | XMS_ITS | Encounter Summary ---
Author Organization [facility] Address [address] [place] [address] Care Team Providers Care Database Security Expert Name Role Phone Karen Bolanos MD Primary Care Provider [phone] Encounter Details Date Type Department Care Team (Late st Contact Info) Description 08/09/2024 Abstract [facility] [address] [phone] Andrea Prieto, [address] [place], [facility] Social History Tobacco Use Types Packs/Day [...] PM EDT Routine [facility] BCP OB [address] [facility] [place] [address] Andrea Prieto, [address] [facility] [place] [address] documented as of this encounter Goals Goal Patient Goal Type Associated Problems Recent Progress Patient-Stated? Author Reminders Care Plan OB Reminders No Open Scheduling, Background documented as of this encounter Visit Diagnoses Not on filedocumented in this encounter Additional Health Concerns Active Problems Noted Date Diagnosed Date OB Reminders 03/28/2024 documented as of this encounter Care Teams Database Security Expert Relationship Specialty Start Date End Date Karen Bolanos MD [address] [place] [address] PCP - General Family Medicine 11/10/22 documented as of this encounter
--- OUTSIDE RECORDS SUMMARY | 2024-09-03 13:11 | XMS_ITS | Clinical Summary ---
Author Organization [facility] Address [address] [place] [address] Phone Care Team Providers Care Metal Milling Machine Operator Name Role Phone Karen Bolanos MD Primary Care Provider [phone] Social History Tobacco Use Types Packs/Day Years [...] of Treatment Not on file Care Teams Metal Milling Machine Operator Relationship Specialty Start Date End Date Karen Bolanos MD [address] [place] [address] PCP - General 03/11/21
--- OUTSIDE RECORDS SUMMARY | 2024-09-03 13:11 | XMS_ITS | Encounter Summary ---
Author Organization [facility] Address [facility] [place] [address] Care Team Providers Care Fire Support Man Name Role Phone Unavailable Primary Care Provider Unavailabl e Source Comments In the event this information is protected by the Federal Confidentiality of Alcohol and Drug AbusePatient Records regulations: The Federal rules restrict any use of the information to criminally investigate or prosecute any alcohol or drug abuse patient.[facility] Encounter Details Date Type Department Care Team (Late st Contact Info) Description 08/18/2023 Patient Msg Reproductive Endocrinology Infertility [address] [place] [address] Andressa Abraham APRN.TOMBSTONE ERECTOR [address] [place] [address] Myriad Results Social History Tobacco Use Types [...] is lower risk 5 06/08/2023 Data from: https://www.neighborhoodatlas.medicine.[facility].edu/. Last address used for calculation [...]
--- OUTSIDE RECORDS SUMMARY | 2024-09-03 13:11 | XMS_ITS | Encounter Summary ---
Author Organization [facility] Address [address] [place] [address] Care Team Providers Care Pipe Cleaner Name Role Phone Karen Bolanos MD Primary Care Provider [phone] Karen Bolanos MD Unavailable Encounter Details Date Type Department Care Team (Late st Contact Info) Description 03/11/[address] [facility] [address] [place] [address] Andrea Prieto, [address] [place], [place] [id number] Social History Tobacco Use Types Packs/Day Years [...] [address] [facility] [place] [phone] Andrea Prieto, [address] [facility] [place] [address] documented as of this encounter Visit Diagnoses Not on filedocumented in this encounter Care Teams Pipe Cleaner Relationship Specialty Start Date End Date Karen Bolanos MD [address] [place] [address] PCP - General Family Medicine 11/10/22 Karen Bolanos MD [address] [place] [address] PCP - Nish Medina 12/28/22 5 documented as of this encounter
--- OUTSIDE RECORDS SUMMARY | 2024-09-03 13:11 | XMS_ITS | Encounter Summary ---
Author Organization [facility] Address [address] [place] [address] Care Team Providers Care Occupational Medicine Physician Name Role Phone Karen Bolanos MD Primary Care Provider [phone] Karen Bolanos MD Unavailable [phone] Encounter Details Date Type Department Care Team (Late st Contact Info) Description 03/11/2024 Abstract [facility] [address] [place] [address] Andrea Prieto, [address] [place], [place] [id number] Social History Tobacco Use Types Packs/Day Years [...] PM EDT Routine [facility] BCP OB [address] [facility] [phone] Andrea Prieto, [address] [facility] [place] [address] documented as of this encounter Visit Diagnoses Not on filedocumented in this encounter Care Teams Occupational Medicine Physician Relationship Specialty Start Date End Date Karen Bolanos MD [address] [place] [address] PCP - General Family Medicine 11/10/22 Karen Bolanos MD [address] [place] [address] PCP - Nish Medina 12/28/22 5 documented as of this encounter
--- OUTSIDE RECORDS SUMMARY | 2024-09-03 13:11 | XMS_ITS | Encounter Summary ---
Author Organization [facility] Address [address] [place] [address] Care Team Providers Care Behavior Management Specialist Name Role Phone Karen Bolanos MD Primary Care Provider [phone] Encounter Details Date Type Department Care Team (Late st Contact Info) Description 08/20/2024 Clinisync Result Encounter [facility] External Department Unsolicited Nina Prieto, DO [address] [place] [address] Social History Tobacco Use Types [...] BCP OB [address] [place] [address] Nina Prieto, DO [address] [facility] [place] [address] documented as of this encounter Goals Goal [...] PM EDT Narrative 08/20/2024 1:32 [place] [address] Ultrasound Report Signed Patient: EDUAR CARPENTER MR#: [id number] : 1990 Acct:[id number] Age/Sex: 34 / F ADM Date: 08/20/24 Loc: [place] [address]: Nina Prieto D.O. Ordering Physician: Nina Prieto D.O. Date of Service: 08/20/24 Procedure(s): US OB BPP w non-stress Accession Number(s): [id number] cc: Nina Prieto D.O.; NORBERTO BOLANOS [address] [address] Patient Name: EDUAR CARPENTER MRN: [id number] date: 1990 Sex: F Assigned Patient Location: [facility] Current Patient Location: [facility] Accession/Order Number: [id number] Exam Date: 08/20/2024 13:28 Report Date: 08/20/2024 [...] Blake M.D. 08/20/2024 1:30 PM Dictation Location: [place] [address] Electronically authenticated by: [id number] Y Date: 08/20/2024 13:30 Dictated By: Gunnar Blake M.D. Signed By: 08/20/24 133 DD/ 133 TD/TT: Director Part: Procedure Note Radiology, Radiologist, MD - 08/20/2024 [place] [address] Ultrasound Report Signed Patient: EDUAR CARPENTER KMR#: [id number] : 1990Acct:[id number] Age/Sex: 34 / FADM Date: 08/20/24 Loc: [facility] [address]: Nina Prieto D.O. Ordering Physician: Nina Prieto D.O. Date of Service: 08/20/24 Procedure(s): US OB BPP w non-stress Accession Number(s): [id number] cc: Nina Prieto D.O.; NORBERTO BOLANOS [address] [address] Patient Name: EDUAR CARPENTER MRN: [id number] date: 1990 Sex: F Assigned Patient Location: [facility] Current Patient Location: [facility] Accession/Order Number: [id number] Exam Date: 08/20/2024 13:28 Report Date: 08/20/2024 [...] Blake M.D. 08/20/2024 1:30 PM Dictation Location: [place] Electronically authenticated by: [id number] Y Date: 3:30 Dictated By: Gunnar Blake M.D. Signed By:08/20/24 1332 DD/ 1330 TD/TT: Director Part: Nina Prieto DO [facility] Final Result documented in this encounter Visit Diagnoses Not on filedocumented in this encounter Additional Health Concerns Active Problems Noted Date Diagnosed Date OB Reminders 03/28/2024 documented as of this encounter Care Teams Behavior Management Specialist Relationship Specialty Start Date End Date Karen Bolanos MD [address] [place] [address] PCP - General Family Medicine 11/10/22 documented as of this encounter
--- OUTSIDE RECORDS SUMMARY | 2024-09-03 13:11 | XMS_ITS | Encounter Summary ---
Author Organization [facility] Address [facility] [place] [address] Care Team Providers Care Garment Folder Name Role Phone Unavailable Primary Care Provider Unavailabl e Source Comments In the event this information is protected by the Federal Confidentiality of Alcohol and Drug AbusePatient Records regulations: The Federal rules restrict any use of the information to criminally investigate or prosecute any alcohol or drug abuse patient.[facility] Encounter Details Date Type Department Care Team (Late st Contact Info) Description 02/09/2024 Patient Msg Reproductive Endocrinology Infertility [address] [facility] [place] [address] Margo Cortez APRN.SEE WHEELER [address] [place] [id number] Congratulations!!! Social History Tobacco Use Types Packs/Day [...] risk 5 06/08/2023 Data from: https://www.neighborhoodatlas.medicine.[facility].edu/. Last address used for calculation [address] [...]
--- OUTSIDE RECORDS SUMMARY | 2024-09-03 13:11 | XMS_ITS | Encounter Summary ---
Author Organization [facility] Address [address] [place] [address] Care Team Providers Care Pairer Odds Name Role Phone Karen Bolanos MD Primary Care Provider [phone] Encounter Details Date Type Department Care Team (Late st Contact Info) Description 08/31/2024 Bamboo flowsheet [facility] BCP OB [address] [facility] [place] [phone] Karyna Craig PA [address] [facility] [address] [place], [facility] Social History Tobacco Use Types Packs/Day [...] PM EDT Routine [facility] BCP OB [address] [facility] [place] [address] Andrea Prieto DO [address] [facility] [place] [address] documented as of this encounter Goals Goal Patient Goal Type Associated Problems Recent Progress Patient-Stated? Author Reminders Care Plan OB Reminders No Open Scheduling, Background documented as of this encounter Visit Diagnoses Not on filedocumented in this encounter Additional Health Concerns Active Problems Noted Date Diagnosed Date OB Reminders 03/28/2024 documented as of this encounter Care Teams Pairer Odds Relationship Specialty Start Date End Date Karen Bolanos MD [address] [place] [address] PCP - General Family Medicine 11/10/22 documented as of this encounter
--- OUTSIDE RECORDS SUMMARY | 2024-09-03 13:11 | XMS_ITS | Encounter Summary ---
Author Organization [facility] Address [address] [place] [address] Care Team Providers Care Drill Press Operator For Metal Name Role Phone Karen Bolanos MD Primary Care Provider [phone] Encounter Details Date Type Department Care Team (Late st Contact Info) Description 08/29/2024 Abstract [facility] [address] [place] [phone] Andrea Prieto, [address] [place], [facility] - [...] PM EDT Routine [facility] BCP OB [address] [facility] [place] [address] Andrea Prieto, [address] [facility] [place] [address] documented as of this encounter Goals Goal Patient Goal Type Associated Problems Recent Progress Patient-Stated? Author Reminders Care Plan OB Reminders No Open Scheduling, Background documented as of this encounter Visit Diagnoses Not on filedocumented in this encounter Additional Health Concerns Active Problems Noted Date Diagnosed Date OB Reminders 03/28/2024 documented as of this encounter Care Teams Drill Press Operator For Metal Relationship Specialty Start Date End Date Karen Bolanos MD [address] [place] [address] PCP - General Family Medicine 11/10/22 documented as of this encounter
[2024-09-03 13:43] VITALS: TEMP 36.2
[2024-09-03 13:44] VITALS: BP 117/71; PULSE 89
== END 2024-09-03 14:18 | disposition home or self-care (01) ==
LOC: US 13:07 → FBC 13:09
PROVIDERS: PCP Student in an Organized Health Care Education/Training Program; Visit Provider Obstetrics & Gynecology
DX: O24.419 Gestational diabetes mellitus in pregnancy, unspecified control (principal); Z3A.37 37 weeks gestation of pregnancy
CPT/HCPCS: 59025; 76818

== ENCOUNTER 2024-09-07 13:04 | Outpatient (OUT) | payer BC, SELFPAY ==
[2024-09-07 13:11] VITALS: BP 115/69; PULSE 111
== END 2024-09-07 13:39 | disposition home or self-care (01) ==
LOC: FBCO 13:04 → FBC 13:06
PROVIDERS: PCP Student in an Organized Health Care Education/Training Program; Visit Provider Obstetrics & Gynecology
DX: O24.419 Gestational diabetes mellitus in pregnancy, unspecified control (principal); Z3A.37 37 weeks gestation of pregnancy
CPT/HCPCS: 59025

== ENCOUNTER 2024-09-10 13:25 | Outpatient (OUT) | payer BC, SELFPAY ==
--- OUTSIDE RECORDS SUMMARY | 2024-09-10 13:31 | XMS_ITS | CCD ---
Author Organization [facility] Inform ion Partnership [facility] Care Team Providers Care Choreography Director Name Role Phone BACEVICE, CHARLIE E Unavailable Unavailable KAFTON, KEITH Unavailable Unavailable BACEVICE, CHARLIE E Unavailable Unavailable BACEVICE, CHARLIE E Unavailable Unavailable KAFTON, KEITH Unavailable Unavailable GREENWOOD, KEITH Unavailable Unavailable GREENWOOD, KEITH Unavailable Unavailable KAFTON, KEITH Unavailable Unavailable GREENWOOD, KEITH Unavailable Unavailable KAFTON, KEITH Unavailable Unavailable KRYSTYNA, KEITH Unavailable Unavailable Karen Bolanos Unavailable Filomena Zamora Unavailable Unavailable DR ANDREA PRIETO Admitting Unavailable CONNER, DR WOOD Attending Unavailable REQUEST, NONE LISTED Primary Care Unavaila armand PRIETO, DR WOOD Consulting Unavailable Karen Bolanos Primary Care Physician Unavailable Primary Care Provider Unavailabl e Unavailable Primary Care Provider UnavailTIARRA Jimenez Attending Unavailable TIARRA KATZ Admitting Unavailable TIARRA KATZ Attending Unavailable TIARRA KATZ Attending Unavailable Karen Bolanos MD Primary Care Provider Karen Bolanos MD Unavailable Karen Bolanos MD Primary Care Provider JARAD, ANDRESSA G Referring Unavailable ANGELICA, MYRIAM Attending Unavailable JARAD, ANDRESSA G Referring Unavailable JARAD, ANDRESSA G Attending Unavailable SMOLEN, JESSI Referring Unavailable JARAD, ANDRESSA G Attending Unavailable MERTEREZA ROMEDI Referring Unavailable JARAD, ANDRESSA G Referring Unavailable FERN LAMAR Attending Unav ailable SMOLEN, JESSI Referring Unavailable JARAD, ANDRESSA G Attending Unavailable SMOLEN, JESSI Referring Unavailable SWETHA, ANYI Attending Unavailable JARAD, ANDRESSA G Referring Unavailable JARAD, ANDRESSA G Referring Unavailable CONNER, ANDREA Attending Unavailable CONNER, ANDREA Referring Unavailable CONNER, ANDREA Attending Unavailable CONNER, ANDERA Attending Unavailable DINA GERARD Attending Unavailable CONNER, ANDREA Attending Unavailable CONNER, ANDREA Attending Unavailable KIARA, KARYNA Attending Unavailable CONNER, ANDREA Attending Unavailable LUIS MIGUEL, KAREN Crandall Attending Unavailable Medications Current Medications Medication Drug Class(es) Dates Sig (Normalized) Sig (Original) amoxicillin 80 mg/ml oral suspension (1 source) Penicillin-class Antibacterial Start: 02-28-2024 End: 03-09-2024 take 960 mg by mouth every twelve hours amoxicillin 400 mg/5 mL Oral Liq 960 mg = 12 mL, Oral, q12hr, X 10 day(s), # 240 mL, Refills(s) 0, Pharmacy: [facility] #[id number], 158, cm, 02/28/24 9:01:00 EST, Height/Length Dosing, [...] oral solution (1 source) alpha-Adrenergic Agonist, Uncompetitive G-jaktub-O-aspartate Receptor Antagonist, Sigma-1 Agonist Start: 03-11-2021 End: 03-20-2021 take 5 mL by mouth every four to six hours brompheniramine/pseudoephedrine/dextrome thorphan [id number]-[id number]-17ln/5 mL oral syrup ; 5 milliliter(s) orally [...] omeprazole 20 mg delayed release oral capsule (10 sources) Proton Pump Inhibitor Start: 08-24-19 25 End: 09-24-19 25 take 1 capsule by mouth before mealtime omeprazole (PriLOSEC) [address] capsule Indications: Gastroesophageal Reflux Disease , Heartburn Take 1 capsule (20 mg) by mouth in the morning. Take before meals. Do not crush or chew. 30 capsule 3 08/24/2024 09/23/2024 Active MV-Min-Fe Fum-FA-DHA ( 1 PO) (5 sources) MV-Min- Fe Fum-FA-DHA ( 1 PO) [...] mg/ml pen injector (3 sources) Start: 02-25-20 23 End: 12-28-19 24 inject 0.25 mg by subcutaneous injection every [...] 0 Start Date: 05/29/12 Status: Ordered levonorgestrel 0.513831 mg/hr intrauterine system (14 sources) Progestin, Progestin-containi [...] 06-01-2024 Chronic Other and delivery including normal (20 sources) test positive; Translations: [Encounter for test, [...] [36 weeks gestation of ] 08-31-2024 Episodic Residual codes; unclassified (2 sources) Gestation period, 37 weeks; Translations: [37 weeks gestation of ] 09-07-2024 Episodic Unclassified (2 sources) Complete placenta previa [...] Range Facility Urinalysis macro (dipstick) panel (U)on 09-07-2024 Bilirubin, UA Negative Negative - 4(70) +++ mg/dL [facility] Blood, UA Negative Negative - 50 Mukesh/mcL [facility] Clarity, UA Clear [facility] Color, UA Yellow [facility] Glucose, UA Negative Negative - 2000(110) ++++ mg/dL [facility] Interpretation and review of laboratory results Normal [facility] Ketones, UA Negative Negative - 160(16) ++++ mg/dL [facility] Leukocytes, UA Negative Negative - 500+++ Shannon/mcL [facility] Nitrite, UA Negative Negative - Positive [facility] pH, UA 7 5 - 9 [facility] Protein, UA Negative Negative - 2000(20) ++++ mg/dL [facility] Spec Grav, UA 1.02 1 - 1.03 [facility] Urobilinogen, UA 0.2 0.2 - 12 mg/dL [facility] US OB BPP W NON-STRESS on 09-04-2024 [place] [address] Ultrasound Report Signed Patient: NELLI CARPENTER MR#: [id number] : 1990 Acct:[id number] Age/Sex: 34 / F ADM Date: 09/03/24 Loc: US Attending Dr: Andrea Prieto D.O. Ordering Physician: Andrea Prieto D.O. Date of Service: 09/03/24 Procedure(s): US OB BPP w non-stress Accession Number(s): [id number] cc: Andrea Prieto D.O.; NORBERTO BOLANOS [address] [address] Patient Name: ENLLI CARPENTER MRN: [id number]:[id number] date: 1990 Sex: F Assigned Patient Location: [facility] Current Patient Location: Accession/Order Number: [id number] Exam Date: 09/04/2024 09:38 Report Date: 09/04/2024 09:38 At the request of: ANDREA PRIETO DO Procedure: US OB BPP w non-stress Ultrasound biophysical profile HISTORY: Gestational diabetes Adequate breathing movement, gross body movement, tone and amniotic fluid volume for total score of 8 out of 8. The amniotic fluid index is 20.7cm within normal limits. The heart rate 145 bpm. US/US OB BPP w non-stress IMPRESSION: Adequate ultrasound biophysical profile Impression dictated by: Deepak Nava M.D. 09/04/2024 9:38 AM Dictation Location: [facility] Electronically authenticated by: [id number] Y Date: 09/04/2024 09:38 Dictated By: Deepak Nava D.O. Signed By: 09/04/24940 DD/ 7 TD/TT: Skirt Panel Assembler: [facility] Radiology, Radiologi MD melina - 09/04/2024 [place] [address] Ultrasound Report Signed Patient: NELLI CARPENTER MR#: [id number] : 1990 Acct:[id number] Age/Sex: 34 / F ADM Date: 09/03/24 Loc: US Attending Dr: Andrea Prieto D.O. Ordering Physician: Andrea Prieto D.O. Date of Service: 09/03/24 Procedure(s): US OB BPP w non-stress Accession Number(s): [id number] cc: Andrea Prieto D.O.; NORBERTO BOLANOS The [address] [address] Patient Name: NELLI CARPENTER MRN: [facility]:[id number] date: 1990 Sex: F Assigned Patient Location: [facility] Current Patient Location: Accession/Order Number: [id number] Exam Date: 09/04/2024 09:38 Report Date: 09/04/2024 09:38 At the request of: ANDREA CONNER DO Procedure: US OB BPP w non-stress Ultrasound biophysical profile HISTORY: Gestational diabetes Adequate breathing movement, gross body movement, tone and amniotic fluid volume for total score of 8 out of 8. The amniotic fluid index is 20.7cm within normal limits. The heart rate 145 bpm. US/US OB BPP w non-stress IMPRESSION: Adequate ultrasound biophysical profile Impression dictated by: Deepak Nava M.D. 09/04/2024 9:38 AM Dictation Location: [facility] Electronically authenticated by: [id number] Y Date: 09/04/2024 09:38 Dictated By: Deepak Nava D.O. Signed By: 09/04/24940 DD/ 7 TD/TT: Skirt Panel Assembler: [facility] Radiology Study observation (narrative) [facility] US OB BPP W NON-STRESS Ordered By: Radiologist Radiology on 09-04-2024 [facility] Work Phone: Urinalysis macro (dipstick) panel (U)on 08-31-2024 Bilirubin, UA Negative Negative - 4(70) +++ mg/dL [facility] Blood, UA Negative Negative - 50 Mukesh/mcL [facility] Clarity, UA Cloudy [facility] Color, UA Dark Shereen [facility] Glucose, UA Negative Negative - 2000(110) ++++ mg/dL [facility] Interpretation and review of laboratory results Abnormal [facility] Ketones, UA Negative Negative - 160(16) ++++ mg/dL [facility] Leukocytes, UA Negative Negative - 500+++ Shannon/mcL [facility] Nitrite, UA Negative Negative - Positive [facility] pH, UA 6.5 5 - 9 [facility] Protein, UA Positive Negative - 2000(20) ++++ mg/dL [facility] Comment on above: 30 Spec Grav, UA 1.025 1 - 1.03 [facility] Urobilinogen, UA 1.0 0.2 - 12 mg/dL [facility] US OB BPP W NON-STRESS on 08-27-2024 [place] [address] Ultrasound Report Signed Patient: NELLI CARPENTER MR#: [id number] : 1990 Acct:[id number] Age/Sex: 34 / F ADM Date: 08/27/24 Loc: [facility] 250-[address]: Andrea Prieto D.O. Ordering Physician: Andrea Prieto D.O. Date of Service: 08/27/24 Procedure(s): US OB BPP w non-stress Accession Number(s): [id number] cc: Andrea Prieto D.O.; NORBERTO BOLANOS The [place] [address] Patient Name: NELLI CARPENTER MRN: [facility]:[id number] date: 1990 Sex: F Assigned Patient Location: [facility] Current Patient Location: [facility] Accession/Order Number: [id number] Exam Date: 08/27/2024 13:58 Report Date: 08/27/2024 [...] Nava M.D. 08/27/2024 2:00 PM Dictation Location: [place] [address] Electronically authenticated by: [id number] Y Date: 08/27/2024 14:00 Dictated By: Deepak Nava D.O. Signed By: 08/27/24 1402 DD/ 99 TD/TT: Skirt Panel Assembler: [facility] Radiology Radiologsharla summers MD - 08/27/2024 [place] [address] Ultrasound Report Signed Patient: NELLI CARPENTER MR#: [id number] : 1990 Acct:[id number] Age/Sex: 34 / F ADM Date: 08/27/24 Loc: [facility] 250-[address]: Andrea Prieto D.O. Ordering Physician: Andrea Prieto D.O. Date of Service: 08/27/24 Procedure(s): US OB BPP w non-stress Accession Number(s): [id number] cc: Andrea Prieto D.O.; NORBERTO BOLANOS [place] [id number] Patient Name: NELLI CARPENTER MRN: [id number] date: 1990 Sex: F Assigned Patient Location: [facility] Current Patient Location: [facility] Accession/Order Number: [id number] Exam Date: 08/27/2024 13:58 Report Date: 08/27/2024 [...] Nava M.D. 08/27/2024 2:00 PM Dictation Location: [place] [address] Electronically authenticated by: [id number] Y Date: 08/27/2024 14:00 Dictated By: Deepak Nava D.O. Signed By: 08/27/24 1402 DD/ 1400 TD/TT: Skirt Panel Assembler: [facility] Radiology Study observation (narrative) [facility] US OB BPP W NON-STRESS Ordered By: Radiologist Radiology on 08-27-2024 [facility] Work Phone: Urinalysis macro (dipstick) panel (U)on 08-23-2024 Bilirubin, UA Negative Negative - 4(70) +++ mg/dL [facility] Blood, UA Negative Negative - 50 Mukesh/mcL [facility] Clarity, UA Clear [facility] Color, UA Yellow [facility] Glucose, UA Negative Negative - 2000(110) ++++ mg/dL [facility] Interpretation and review of laboratory results Abnormal [facility] Ketones, UA Negative Negative - 160(16) ++++ mg/dL [facility] Leukocytes, UA Trace Negative - 500+++ Shannon/mcL [facility] Nitrite, UA Negative Negative - Positive [facility] pH, UA 7 5 - 9 [facility] Protein, UA Negative Negative - 2000(20) ++++ mg/dL [facility] Spec Grav, UA 1.015 1 - 1.03 [facility] Urobilinogen, UA 0.2 0.2 - 12 mg/dL [facility] US OB BPP W NON-STRESS on 08-14-2024 [place] [address] Ultrasound Report Signed Patient: NELLI CARPENTER MR#: [id number] : 1990 Acct:[id number] Age/Sex: 34 / F ADM Date: 08/13/24 Loc: US Attending Dr: Andrea Prieto D.O. Ordering Physician: Andrea Prieto D.O. Date of Service: 08/13/24 Procedure(s): US OB BPP w non-stress Accession Number(s): [id number] cc: Andrea Prieto D.O.; NORBERTO BOLANOS [place] [id number] Patient Name: NELLI CARPENTER MRN: [id number] date: 1990 Sex: F Assigned Patient Location: US Current Patient Location: Accession/Order Number: [id number] Exam Date: 08/14/2024 08:54 Report Date: 08/14/2024 [...] Blake M.D. 08/14/2024 9:01 AM Dictation Location: [place] [address] Electronically authenticated by: [id number] Y Date: 08/14/2024 09:01 Dictated By: Gunnar Blake M.D. Signed By: 08/14/24903 DD/ 0 TD/TT: Skirt Panel Assembler: [facility] Radiology, Radiologi MD melina - 08/14/2024 [place] [address] Ultrasound Report Signed Patient: NELLI CARPENTER MR#: [id number] : 1990 Acct:[id number] Age/Sex: 34 / F ADM Date: 08/13/24 Loc: US Attending Dr: Andrea Prieto D.O. Ordering Physician: Andrea Prieto D.O. Date of Service: 08/13/24 Procedure(s): US OB BPP w non-stress Accession Number(s): [id number] cc: Andrea Prieto D.O.; NORBERTO BOLANOS [place] [address] Patient Name: NELLI CARPENTER MRN: [facility]:[id number] date: 1990 Sex: F Assigned Patient Location: US Current Patient Location: Accession/Order Number: [id number] Exam Date: 08/14/2024 08:54 Report Date: 08/14/2024 [...] Blake M.D. 08/14/2024 9:01 AM Dictation Location: [facility] Electronically authenticated by: [id number] Y Date: 08/14/2024 09:01 Dictated By: Gunnar Blake M.D. Signed By: 08/14/24903 DD/ 0 TD/TT: Skirt Panel Assembler: [facility] Radiology Study observation (narrative) [facility] US OB BPP W NON-STRESS Ordered By: Radiologist Radiology on 08-14-2024 [facility] Work Phone: US OB GROWTHon 08-14-2024 [place] [address] Ultrasound Report Signed Patient: NELLI CARPENTER MR#: [id number] : 1990 Acct:[id number] Age/Sex: 34 / F ADM Date: 08/13/24 Loc: US Attending Dr: Andrea Prieto D.O. Ordering Physician: Andrea Prieto D.O. Date of Service: 08/13/24 Procedure(s): US OB growth Accession Number(s): [id number] cc: Andrea Prieto D.O.; NORBERTO BOLANOS [place] [address] Patient Name: NELLI CARPENTER MRN: [facility]:[id number] date: 1990 Sex: F Assigned Patient Location: Current Patient Location: Accession/Order Number: [id number] Exam Date: 08/14/2024 09:01 Report Date: 08/14/2024 [...] Blake M.D. 08/14/2024 9:06 AM Dictation Location: [place] [address] Electronically authenticated by: [id number] Y Date: 08/14/2024 09:06 Dictated By: Gunnar Blake M.D. Signed By: 08/14/24908 DD/ 5 TD/TT: Skirt Panel Assembler: [facility] Radiology, Radiologi MD melina - 08/14/2024 [place] [address] Ultrasound Report Signed Patient: NELLI CARPENTER MR#: [id number] : 1990 Acct:[id number] Age/Sex: 34 / F ADM Date: 08/13/24 Loc: US Attending Dr: Andrea Prieto D.O. Ordering Physician: Andrea Prieto D.O. Date of Service: 08/13/24 Procedure(s): US OB growth Accession Number(s): [id number] cc: Andrea Prieto D.O.; NORBERTO BLOANOS [place] [id number] Patient Name: NELLI CARPENTER MRN: [id number] date: 1990 Sex: F Assigned Patient Location: Current Patient Location: Accession/Order Number: [id number] Exam Date: 08/14/2024 09:01 Report Date: 08/14/2024 [...] Blake M.D. 08/14/2024 9:06 AM Dictation Location: [place] [address] Electronically authenticated by: [id number] Y Date: 08/14/2024 09:06 Dictated By: Gunnar Blake M.D. Signed By: 08/14/24908 DD/ 5 TD/TT: Skirt Panel Assembler: [facility] Radiology Study observation (narrative) [facility] US OB GROWTHOrdered By: Susan ologblanca Radiology on 08-14-2024 [facility] Work Phone: Urinalysis macro (dipstick) panel (U)on 08-08-2024 Bilirubin, UA Negative Negative - 4(70) +++ mg/dL [facility] Blood, UA Negative Negative - 50 Mukesh/mcL [facility] Clarity, UA Clear [facility] Color, UA Yellow [facility] Glucose, UA Negative Negative - 1999(110) ++++ mg/dL [facility] Interpretation and review of laboratory results Normal [facility] Ketones, UA Negative Negative - 160(16) ++++ mg/dL [facility] Leukocytes, UA Negative Negative - 500+++ Shannon/mcL [facility] Nitrite, UA Negative Negative - Positive [facility] pH, UA 7 5 - 9 [facility] Protein, UA Negative Negative - 1999(20) ++++ mg/dL [facility] Spec Grav, UA 1.02 1 - 1.03 [facility] Urobilinogen, UA 0.2 0.2 - 12 mg/dL [facility] Urinalysis macro (dipstick) panel (U)on 07-25-2024 Bilirubin, UA Negative Negative - 4(70) +++ mg/dL [facility] Blood, UA Negative Negative - 50 Mukesh/mcL [facility] Clarity, UA Clear [facility] Color, UA Yellow [facility] Glucose, UA Negative Negative - 1999(110) ++++ mg/dL [facility] Interpretation and review of laboratory results Abnormal [facility] Ketones, UA Negative Negative - 160(16) ++++ mg/dL [facility] Leukocytes, UA Negative Negative - 500+++ Shannon/mcL [facility] Nitrite, UA Negative Negative - Positive [facility] pH, UA 6.5 5 - 9 [facility] Protein, UA Negative Negative - 1999(20) ++++ mg/dL [facility] Spec Grav, UA 1.015 1 - 1.03 [facility] Urobilinogen, UA 1.0 0.2 - 12 mg/dL [facility] CNPNon 07-20-2024 CNPN Telephone ([id number]) NELLI CARPENTER ([id number]) 1990 F Date Time Provider Department 07/20/24 HISTORICAL [id number] During your visit today, we recorded the following information about you: Jessy Lilly, BALJINDER 07/20/2024 1:19 PM Signed Received outside referral from Dr. Prieto for GDM consult due to elevated 1 hour glucose 202. Called pt. To schedule appointment no answer, left message with call back phone number. BALJINDER Zaman Laura Lee 07/25/2024 11:57 AM Signed Nelli Carpenter called today. Caller's (home) [phone] (cell) Reason for call: Pt calling nurse back to be scheduled for GDM consult due to elevated 1 hour glucose 202. Jessy Zamora, BALJINDER 08/04/2024 3:24 PM Addendum Outside referral received from Dr. Prieto for elevated 1 hour glucose 202. Pt. Has all testing supplies and has been checking BS periodically. Advised pt. To start checking 4 times daily and upload to [employer]. Will send care transitions manager. Other med hx: asthma, placenta previa [...] Date Reviewed: 01/20/2024 Reviewed by: Andressa Abraham APRN.UTILIZATION MANAGEMENT RN - Fully Assessed Prescriptions as of 08/04/2024 - vit/iron fum/folic ac ( 1 + 1 ORAL) Take by mouth. - mv-min/iron/folic/calci um/vitK (WOMEN'S MULTIVITAMIN ORAL) Take by mouth. Problem List As Of Date 07/20/2024 Noted Resolved Complete placenta previa with hemorrhage, third*12/09/2016 06/01/2024 Encounter Status:Closed by JESSY LILLY on 07/20/24 Normal [facility] ALL CBC WITH AUTO DIFFon BASOPHILS ABSOLUTE AUTO 0 [facility] Basophils/100 WBC (Bld) 0.2 % 0.2 - 2.0 % [facility] Eosinophils/100 WBC (Bld) 0.6 % Low 0.9 - 7.0 % [facility] Erythrocyte distribution width (RBC) [Ratio] 13.2 % 11.0 - 15.0 % [facility] Hematocrit (Bld) [Volume fraction] 34 % Low 36.0 - 48.0 % [facility] Hemoglobin (Bld) [Mass/Vol] 11.1 g/dL Low 12.0 - 16.0 g/dL [facility] IMMATURE GRANULOCYTES ABS AUTO 0.[address] [facility] Immature granulocytes/100 WBC (Bld) 1.9 % High 0.0 - 0.5 % [facility] Interpretation and review of laboratory results Abnormal [facility] LYMPHOCYTES ABSOLUTE AUTO 1.5 [facility] Lymphocytes/100 WBC (Bld) 18.9 % Low 20.5 - 60.0 % [facility] MCH (RBC) [Entitic mass] 28.6 pg 26.7 - 34.[address] [facility] MCHC (RBC) [Mass/Vol] 32.6 g/dL 29.9 - 35.2 g/dL [facility] MCV (RBC) [Entitic vol] 87.6 fL 81.0 - 99.[address] [facility] MONOCYTES ABSOLUTE AUTO 0.4 [facility] Monocytes/100 WBC (Bld) 5.3 % 1.7 - 12.0 % [facility] NEUTROPHILS ABSOLUTE AUTO 5.9 [facility] Neutrophils/100 WBC (Bld) 73.1 % 43.0 - 75.0 % [facility] Platelet mean volume (Bld) [Entitic vol] 10.9 fL 9.5 - 13.[address] [facility] TBH EO # 0.1 [facility] TBH PLT 218 [facility] TB RBC 3.[address] [facility] TB WBC 8.1 [facility] CL[facility] Urinalysis macro (dipstick) panel (U)on 06-27-2024 Bilirubin, UA Negative Negative - 4(70) +++ mg/dL [facility] Blood, UA Negative Negative - 50 Mukesh/mcL [facility] Clarity, UA Clear [facility] Color, UA Light Yellow [facility] Glucose, UA Negative Negative - 1999(110) ++++ mg/dL [facility] Interpretation and review of laboratory results Normal [facility] Ketones, UA Negative Negative - 160(16) ++++ mg/dL [facility] Leukocytes, UA Negative Negative - 500+++ Shannon/mcL [facility] Nitrite, UA Negative Negative - Positive [facility] Comment on above: ` pH, UA 6 5 - 9 [facility] Protein, UA Negative Negative - 1999(20) ++++ mg/dL [facility] Spec Grav, UA 1.025 1 - 1.03 [facility] Urobilinogen, UA 1.0 0.2 - 12 mg/dL [facility] US OB FOLLOW UP TRANSABDOMIN AL APPROACHon [...] II, MD, PHD at 11-Jul-2024 11:47:38 PM [facility] Normal Not Available Comment on above: [...] 6 oz EFW by: [employer]lock (HC-AC-FL) Extended [employer]cycle [employer] Officer 4.7 mm CM 8.4 mm Nasal bone [...] normal LVOT view: normal 3-vessel view: normal 8-rhhelq-wtdwgrb view: normal Heart / Thorax Situs: situs [...] Read By: Leonid Myers M.D. MATERNAL MEDICINE [facility] Radiology Study observation (narrative) [facility] US BREAST COMPLETE RIGHTo n 05-31-2024 US [...] GDLNon AGE GDLN ACOG TESTING Note . [facility] Comment on above: TESTS RESULT FLAG UN ITS REF RANGE LAB Clinician Provided Cytology Information Source.............Cervix Other.............. No. of containers..01 ThinPrep Vial Age Algo ACOG Akua... 30- 01 FLAG LEGEND: L-Low Normal,H-High Normal,LL-Alert Low,HH-Alert High <-Panic Low,>-Panic High,A-Abnormal,AA-Critical Abnormal Performed at: 01 =G [facility] [address] Maribel Martin MD, HPV APTIMA Negative Negative [facility] Comment on above: This nucleic acid am plification test detects fourteen high- risk HPV types (16,18,31,33,35,39,45,51,52,56,58,59,66,68) without differentiation. Performed at: =G - [facility] [id number] Academic Affairs Dean: Maribel Martin MD, Phone: [phone] Performed at: - [facility] [id number] Academic Affairs Dean: Maribel Martin MD, Phone: [phone] IGP, APTIMA HPV, RFX 16/18,[address] [facility] Comment on above: TESTS RESULT FLAG UN ITS REF RANGE LAB DIAGNOSIS: 02 NEGATIVE FOR INTRAEPITHELIAL LESION OR MALIGNANCY. Specimen adequacy: 02 Satisfactory for evaluation. No endocervical component is identified. An endocervical component is not commonly seen in the patient. Performed by: 02 Salud Hui, Road Advisor (ASCP) . 02 Note: Note 02 The [...] <-Panic Low,>-Panic High,A-Abnormal,AA-Critical Abnormal Performed at: [address] [address] Maribel Martin MD, SPATULA-ALONE CERVIX [facility]INIS[facility] RECURRENT VAGINITIS (HTRX)on 04-20-[address] [facility] ATOPOBIUM VAGINAE Not detected [facility] BVAB 2,3 (BACTERIAL VAGINOSIS ASSOCIATED BACTERIA 2, 3); MOBILUNCUS SPP 0 [facility] BVAB 2,3 (BACTERIAL VAGINOSIS ASSOCIATED BACTERIA 2, 3); MOBILUNCUS SPP Not detected [facility] JOELLE ALBICANS, PARAPSILOSIS, TROPICALIS 0 [facility] JOELLE ALBICANS, PARAPSILOSIS, TROPICALIS Not detected [facility] JOELLE GLABRATA 0 [facility] JOELLE GLABRATA Not detected [facility] JOELLE KRUSEI [address] [facility] JOELLE KRUSEI Not detected [facility] CHLAMYDIA TRACHOMATIS 0 [facility] CHLAMYDIA TRACHOMATIS Not detected [facility] GARDNERELLA VAGINALIS 0 [facility] GARDNERELLA VAGINALIS Not detected [facility] MEGASPHAERA (TYPES 1, 2) 0 [facility] MEGASPHAERA (TYPES 1, 2) Not detected [facility] MYCOPLASMA GENITALIUM 0 [facility] MYCOPLASMA GENITALIUM Not detected [facility] NEISSERIA GONORRHOEAE 0 [facility] NEISSERIA GONORRHOEAE Not detected [facility] TRICHOMONAS VAGINALIS 0 [facility] TRICHOMONAS VAGINALIS Not detected [facility] Urinalysis macro (dipstick) panel (U)on 04-19-2024 Bilirubin, UA Negative Negative - 4(70) +++ mg/dL [facility] Blood, UA Negative Negative - 50 Mukesh/mcL [facility] Clarity, UA Clear [facility] Color, UA Yellow [facility] Glucose, UA Negative Negative - 1999(110) ++++ mg/dL [facility] Interpretation and review of laboratory results Normal [facility] Ketones, UA Negative Negative - 160(16) ++++ mg/dL [facility] Leukocytes, UA Negative Negative - 500+++ Shannon/mcL [facility] Nitrite, UA Negative Negative - Positive [facility] pH, UA 7.5 5 - 9 [facility] Protein, UA Negative Negative - 1999(20) ++++ mg/dL [facility] Spec Grav, UA 1.015 1 - 1.03 [facility] Urobilinogen, UA 0.2 0.2 - 12 mg/dL [facility] ALL CBC WITH AUTO DIFFon BASOPHILS ABSOLUTE AUTO 0 [facility] Basophils/100 WBC (Bld) 0.4 % 0.2 - 2.0 % [facility] Eosinophils/100 WBC (Bld) 0.9 % 0.9 - 7.0 % [facility] Erythrocyte distribution width (RBC) [Ratio] 13.1 % 11.0 - 15.0 % [facility] Hematocrit (Bld) [Volume fraction] 36.9 % 36.0 - 48.0 % [facility] Hemoglobin (Bld) [Mass/Vol] 12.3 g/dL 12.0 - 16.0 g/dL [facility] IMMATURE GRANULOCYTES ABS AUTO 0.[address] [facility] Immature granulocytes/100 WBC (Bld) 1 % High 0.0 - 0.5 % [facility] Interpretation and review of laboratory results Abnormal [facility] LYMPHOCYTES ABSOLUTE AUTO 1.8 [facility] Lymphocytes/100 WBC (Bld) 25.9 % 20.5 - 60.0 % [facility] MCH (RBC) [Entitic mass] 29.9 pg 26.7 - 34.[address] [facility] MCHC (RBC) [Mass/Vol] 33.3 g/dL 29.9 - 35.2 g/dL [facility] MCV (RBC) [Entitic vol] 89.6 fL 81.0 - 99.[address] [facility] MONOCYTES ABSOLUTE AUTO 0.5 [facility] Monocytes/100 WBC (Bld) 6.4 % 1.7 - 12.0 % [facility] NEUTROPHILS ABSOLUTE AUTO 4.6 [facility] Neutrophils/100 WBC (Bld) 65.4 % 43.0 - 75.0 % [facility] Platelet mean volume (Bld) [Entitic vol] 12 fL 9.5 - 13.[address] [facility] TBH EO # 0.1 [facility] TB PLT 169 [facility] RBC 4.12 Low [facility] WBC 7 [facility] CLINISYNC [facility] HCG ( test) Ql (U)o n 03-11-2024 Interpretation and review of laboratory results Abnormal [facility] Preg Test, Ur Positive Negative [facility] Urinalysis macro (dipstick) panel (U)on 03-11-2024 Bilirubin, UA Negative Negative - 4(70) +++ mg/dL [facility] Blood, UA Negative Negative - 50 Mukesh/mcL [facility] Clarity, UA Clear [facility] Color, UA Yellow [facility] Glucose, UA Negative Negative - 1999(110) ++++ mg/dL [facility] Interpretation and review of laboratory results Normal [facility] Ketones, UA Negative Negative - 160(16) ++++ mg/dL [facility] Leukocytes, UA Negative Negative - 500+++ Shannon/mcL [facility] Nitrite, UA Negative Negative - Positive [facility] pH, UA 7 5 - 9 [facility] Protein, UA Negative Negative - 1999(20) ++++ mg/dL [facility] Spec Grav, UA 1.02 1 - 1.03 [facility] Urobilinogen, UA 0.2 0.2 - 12 mg/dL [facility] Ambulatory Visit Summaryon 1 04-30-2023 Ambulatory Visit Summary Ambulatory Visit Summary PAULINEMAKAYLANELLI K :1990 Visit Date:02/28/2024 Ambulatory Visit Instructions Your Diagnosis Right otitis media with effusion Sinus congestion BMI 34.0-34.9,adult Your Care Team Attending Physician - MADALYN LOZADA, RICHFIELD Primary Care Physician - Luis Miguel CANTU, [...] with effusion Duration: 10 Days Pickup at [id number] Pharmacy Information [id number]: [address] [place], [place] [id number] [phone] Allergies No Known Allergies Problems Ongoing - [...] choosing us for your care. Leslye [facility] Family Medicine Office/Clini c Noteon [...] agree with above documented HPI by medical records director. Portions of this record may have been created with voice recognition artificial intelligence software, specifically [employer] and or [employer]. Substitutions may have occurred due to the inherent limitations of voice recognition and artificial intelligence software. Patient is a 33-year-old female who [facility], for right ear pain, sinus [...] at this time. 33-year-old female presented to [facility], for right otitis media effusion, [...] for amoxicillin, instructed she can only take jdoq-oyg-mrxjatw Tylenol for body aches, headaches, and fevers since she is . Given a work excuse note. Follow-up with primary care provider as needed. 1. Right otitis media with effusion (H65.91: Unspecified nonsuppurative otitis media, right ear) See above Ordered: amoxicillin, 960 mg = 12 mL, Oral, q12hr, X 10 day(s), # 240 mL, Refills(s) 0, Pharmacy: [facility][id number], 158, cm, 02/28/24 9:01:00 EST, Height/Length Dosing, [...] weight management wi (more content not included)... [facility] Comment on above: Result Comment: Elec tronically Signed By: MADALYN LOZADA, TIARRA\.br\Date and Time Signed: 02/28/24 09:58 EST Patient Letter [facility] 2023 Patient Letter [facility] Patient [place] [facility] [address] [place] [address] February 28, 2024 NELLI CARPENTER [address] [place] [address] : 1990 Please excuse NELLI CARPENTER from work . Date and/or Time of Absence: From: 02/29/24 May return to work on: 03/01/24 Restrictions: None Comments: Please excuse due to an acute illness. Provider Signature: Tiarra Katz PA-C [address] [place] [address] [place] [address] [facility] CNNURSEon 02-09-2024 CNNURSE Nurse Visit (REIAV) PAULINENELLI ([id number]) 1990 F Date Time Provider Department 02/09/24 10:30 AM NURSE SARMAD [facility] During your visit today, we recorded the following information about you: Parth Clark MD 02/09/2024 11:28 AM Signed Scan Visit Patient here for scan. See imaging documentation. MD Diego Bajwa Lauren, APRN.UTILIZATION MANAGEMENT RN 02/09/2024 12:28 PM Signed Nelli Carpenter here [...] 2024 12:27 PM Referring Provider: ANDRESSA ABRAHAM [[id number]] Allergies As of Date: 02/09/2024 (No Known Allergies) Date Reviewed: 01/20/2024 Reviewed by: Andressa Abraham APRN.CNP - Fully Assessed Visit Diagnosis: resulting from assisted reproductive technology in first trimester [O09.811] Order(s):OBSTETRIC ULTRASOUND [facility] [[id number]] Order #: [id number]. #:[id number] WPOINTQty: 1 Prescriptions as of 02/09/2024 - vit/iron fum/folic ac ( 1 + 1 ORAL) Take by mouth. - mv-min/iron/folic/calci um/vitK (WOMEN'S MULTIVITAMIN ORAL) Take by mouth. Problem List As Of Date: 02/09/2024 (None) Encounter Status:Closed by PARTH CLARK on 02/09/24 [facility] Examination level ultrasound on 02-09-2024 Indication Viability; IUI done on 01-02-24; obesity >30 Impression - Single, live, intrauterine . - An intrauterine gestational sac with a yolk sac and pole is present. - Clovis rump length measurement is consistent with the [...] Read By: Parth Clark M.D. MATERNAL MEDICINE [facility] Radiology Study observation (narrative) [facility] B-HCG SerPl-aCncon 4 HCG.beta subunit Qn 2270.0 m[IU]/mL High <5.0 [facility] Comment on above: Order Comment: Speci men Type: BLOOD SPECIMENOrdering Facility: [facility] Address: [address] [place] [address] Result Comment: NOBLE TITATIVE HCG NORMAL RANGES Weeks of Gestation (Weeks Since LMP) 3 Weeks (5.8-71.2 mIU/mL) 4 Weeks (9.5-750 mIU/mL) 5 Weeks (217-7138 mIU/mL) 6 Weeks (158-68048 mIU/mL) 7 Weeks (3697-526060 mIU/mL) 8 Weeks (88061-057424 mIU/mL) 9 Weeks (71517-602516 mIU/mL) 10 Weeks (71173-309870 mIU/mL) 12 Weeks (78388-824587 mIU/mL) Referenced to 4th [facility] Performed By: #### 2 1198-7 ####[facility] LABCLIA [id number] [place] [address] [place] B-HCG SerPl-aCncon 4 HCG.beta subunit Qn 792.1 m[IU]/mL High <5.0 [facility] Comment on above: Order Comment: Speci men Type: BLOOD SPECIMENOrdering Facility: [facility] Address: [address] [place] [address] Result Comment: NOBLE TITATIVE HCG NORMAL RANGES Weeks of Gestation (Weeks Since LMP) 3 Weeks (5.8-71.2 mIU/mL) 4 Weeks (9.5-750 mIU/mL) 5 Weeks (217-7138 mIU/mL) 6 Weeks (158-11676 mIU/mL) 7 Weeks (3697-092042 mIU/mL) 8 Weeks (21948-450093 mIU/mL) 9 Weeks (45081-926437 mIU/mL) 10 Weeks (04774-074647 mIU/mL) 12 Weeks (81004-167503 mIU/mL) Referenced to [facility]th [facility] Performed By: #### 2 1198-7 ####[facility] LABCLIA [id number] [address] CNPNon 01-18-2024 CNPN Telephone (REIBD) NELLI CARPENTER ([id number]) 1990 F Date Time Provider Department 01/18/24 ANDRESSA ABRAHAM During your visit today, we recorded the following information about you: Destiny Peters 01/18/2024 10:36 AM Signed Please call patient back regarding next steps. Jessi Yoo PA-C 01/18/2024 4:03 PM Signed Patient calls with positive urine test. History of ectopic: No History of SAB: Yes History of pelvic/abdominal surgeries: Yes, [facility] LMP 12/18, fertility medications used this cycle [...] Date Reviewed: 11/23/2023 Reviewed by: Andressa Abraham APRN.UTILIZATION MANAGEMENT RN - Fully Assessed Reason for Visit: +hpt 01/15 after an iui [Other] Primary Visit Diagnosis:Encounter for test, result positive [Z32.01] Order(s):HCG QUANTITATIVE [SQHCGQT] Order #: [id number] STANDING Prescriptions as of 01/18/2024 - vit/iron [...] Status:Closed by JESSI YOO on 01/18/24 [facility] CNOVon 01-02-2024 CNOV Office Visit (REIBD) NELLI CARPENTER ([id number]) 1990 F Date Time Provider Department 01/02/24 [...] Cycle Day: 15 Last menstrual period: 12/19/2023 Amma Protocol: UNIVERSAL PROTOCOL / SAFETY CHECKLIST Procedure [...] discussed with the Patient or Patient's Authorized Welding Machine Operator Thermit. As applicable, any other physician, advance practice provider, medical student, or other health professional student that will be observing or involved in the sensitive examination for educational or training purposes was discussed with the Patient or Authorized Welding Machine Operator Thermit. The Patient or Authorized Welding Machine Operator Thermit has agreed to proceed with the sensitive examination. (Sensitive examination includes inspection and/or palpation of the breasts, pelvis, prostate and anorectal regions) Patient declined insurance consultant. IUI IUI Date: 01/02/24 Partner's Name: [...] 01/02/2024 11:46 AM Signed IUI Xytex #: [id number] Washed frozen specimen Post: 122 m/ml, 63% Insem#: 34.7 million Referring Provider: ANDRESSA ABRAHAM [[id number]] Allergies As of Date: 01/02/2024 (No Known Allergies) Date Reviewed: 11/23/2023 Reviewed by: Andressa Abraham, RESTAURANT GENERAL MANAGER.UTILIZATION MANAGEMENT RN - Fully Assessed Primary Visit Diagnosis:Encounter for [...] Status:Closed by ANYI GANT on 01/02/24 [facility] CNOV Office Visit (ANDRBE ) NELLI CARPENTER ([id number]) 1990 F Date Time Provider Department 01/02/24 10:30 AM ANDROLOGY BLANKER PRESS OPERATOR ANDE During your visit today, we recorded the following information about you: Flavia Elizondo 01/02/2024 11:47 AM Signed Thaw for IUI Flavia Elizondo Referring Provider: ANDRESSA ABRAHAM [[id number]] Allergies As of Date: 01/02/2024 (No Known Allergies) Date Reviewed: 11/23/2023 Reviewed by: Andressa Abraham APRN.UTILIZATION MANAGEMENT RN - Fully Assessed Primary Visit Diagnosis:Procreative management [...] Status:Closed by FLAVIA ELIZONDO on 01/02/24 [facility] CNOVon 12-05-2023 CNOV Office Visit (REIBD) NELLI CARPENTER ([id number]) 1990 F Date Time Provider Department 12/05/23 [...] Cycle Day: 15 Last menstrual period: 11/21/2023 Amma Protocol: UNIVERSAL PROTOCOL / SAFETY CHECKLIST Procedure [...] EMERGENT procedures): No specimen collected. Patient declined insurance consultant. Uma Aguilera MD IUI IUI Date: [...] after wash): 49 million Donor ID #: [id number] Cycle reviewed, all questions answered. Pt instructed to take a test in 17 days if no menses and call with results. SIGNATURE: Uma Aguilera MD PATIENT NAME: Nelli Carpenter DATE: December 05, 2023 TIME: 10:31 AM I was present and immediately available for the entire procedure. Patient underwent an intrauterine insemination. Myriam Dominguez MD, Stephanie Barnett 12/06/2023 8:45 AM Signed IUI Xytex #[id number] Frozen washed specimen Post: 145 Million/mL, 68% Insem #: 49 Million Referring Provider: ANDRESSA ABRAHAM [[id number]] Allergies As of Date: 12/05/2023 (No Known Allergies) Date Reviewed: 11/23/2023 Reviewed by: Andressa Abraham, RESTAURANT GENERAL MANAGER.UTILIZATION MANAGEMENT RN - Fully Assessed Primary Visit Diagnosis:Female infertility [...] Encounter Status:Closed by MYRIAM DOMINGUEZ on 12/06/23 [facility] CNOV Office Visit (ANDRBE ) NELLI CARPENTER ([id number]) 1990 F Date Time Provider Department 12/05/23 9:30 AM [facility]ROLOGY [facility] During your visit today, we recorded the following information about you: Stephanie Lara 12/05/2023 10:23 AM Signed Thaw for IUI Stephanie Lara Referring Provider: ANDRESSA ABRAHAM [[id number]] Allergies As of Date: 12/05/2023 (No Known Allergies) Date Reviewed: 11/23/2023 Reviewed by: Andressa Abraham APRN.UTILIZATION MANAGEMENT RN - Fully Assessed Primary Visit Diagnosis:Procreative management [...] Encounter Status:Closed by STEPHANIE LARA on 12/05/23 [facility] [id number] 11-23-2023 HNO ID: [id number] Author: ANDRESSA ABRAHAM APRN.UTILIZATION MANAGEMENT RN Service: ? 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 Tubal Patency Testing: defer for now Sperm Source:Donor Frozen Treatment Protocol: Natural Cycle Monitoring Plan: OPKs Ovidrel Trigger: No Supplemental Progesterone: None Comments: None Andressa Abraham APRN.UTILIZATION MANAGEMENT RN 11/23/2023 [facility] Progest SerPl-mCncon 07-19-2 024 Progesterone [Mass/Vol] 7.4 ng/mL Normal See comment [facility] Comment on above: Order Comment: Speci men Type: BLOOD SPECIMENOrdering Facility: [facility] Address: [address] [place] [address] Result Comment: Mens trual Cycle Progesterone Reference Ranges: Follicular: <1.0 ng/mL Ovulation: <12.1 ng/mL Luteal: 1.8 to 23.9 ng/mL. Progesterone Reference Ranges vary by gestational period: First Trimester: 11.0 to 44.3 ng/mL Second Trimester: 25.4 to 83.3 ng/mL Third Trimester: 58.7 to 214 ng/mL Post menopausal Progesterone: <0.5 ng/mL Reference: 1. Progesterone (Progesterone III) [package insert V 1.0 Czech]. [facility], [place], [place]. December 2014. Performed By: #### 2 839-9 ####[facility] LABCLIA [id number] [address] OF [facility] Azar 10-12-2023 CNPN Telephone (REIBD) NELLI CARPENTER ([id number]) 1990 F Date Time Provider Department 10/12/23 ANDRESSA ABRAHAM REIBD During your visit today, [...] Date Reviewed: 09/11/2023 Reviewed by: Andressa Abraham APRN.UTILIZATION MANAGEMENT RN - Fully Assessed Reason for Visit: +ovulation test SatANDSund d14 AND 15 partner calling [Other] Primary Visit Diagnosis:Female infertility [N97.9] Order(s):PROGESTERONE [SQPROG] Order #: [id number] FUTURE Prescriptions as of 10/12/2023 - vit/iron fum/folic ac ( 1 + 1 ORAL) Take by mouth. - mv-min/iron/folic/calci um/vitK (WOMEN'S MULTIVITAMIN ORAL) Take by mouth. - BIOTIN ORAL Take by mouth once daily. - levonorgestrel (MIRENA) 20 mcg/24 hr IUD 1 Each by INTRAUTERINE route one time only. Problem List As Of Date: 10/12/2023 (None) Encounter Status:Closed by JESSI YOO on 10/12/23 [facility] CNOVon 09-11-2023 CNOV Office Visit (REIBD) NELLI CARPENTER ([id number]) 1990 F Date Time Provider Department 09/11/23 [...] call in for a blood test. LMP 5, +OPK cycle day 12 - 26 day [...] favorite donors - send to me via Payveris to confirm Confirmed best vial type to order: IUI/prewashed Will need to follow up to firm up treatment plan and review IUI scheduling instructions. Andressa Abraham APRN.UTILIZATION MANAGEMENT RN September 11, 2023 8:08 AM I spent a total of 50 minutes on the date of the service which included preparing to see the patient, yovq-mg-ihts patient care, completing clinical documentation, obtaining and/or [...] to communic (more content not included)... [facility] Ambulatory Visit Summaryon 1 05-17-2022 Ambulatory [...] for choosing us for your care. Normal [facility] Family Medicine Office/Clini c Noteon 03-16-2023 [...] data available Patient Education Wrist Pain, Adult, Aauw-be-Tpdv Problem List/Past Medical History Ongoing Acute sinusitis [...] DTaP, unspecified formulation 1990 Recorded [facility] Comment on above: Result Comment: [...] any changes in your symptoms. ? Take gwdh-fyu-lrmamgz and prescription medicines only as told by [...] provider. Document Revised: 02/02/2020 Document Reviewed: 02/02/2020 [employer] Patient Education ? 2022 [employer] Normal [facility] XR Wrist 3+ Views Righton XR [...] Technologist: JUAN DAVID Technical Comments Radiation Dose: Kajosé luis in mGy = . DAP = . Normal [facility] Covid 19 Resultson 1 SARS-CoV-2 (COVID-19) [...] contacted by the [facility] to see if any of [...] or Naproxen (Aleve) can also be used. Ekdl-krc-gsjjjwc cough and cold medicines can be used according to the instructions on the package. Some edck-czu-szmxasi medicines also contain acetaminophen. Make sure you [...] water are not available, use alcohol-based hand planetarium technician. Avoid touching your eyes, nose, and mouth [...] 24 de (more content not included)... Normal [facility] INFLUENZA A/B, COVID 2019 PC R,SYMPTOMATICon 03-12-2021 INFLUENZA A, PCR Not detected Normal Not Detected [facility] Comment on above: Result Comment: Resp iratory virus testing is performed routinely by PCR for Influenza A/B and RSV. If Influenza and RSV PCR are negative, testing for parainfluenza 1,2,3 viruses and adenovirus is routinely performed for oncology inpatients and intensive care unit patients at [facility] and is available on request on other patients by calling Laboratory Client Services at [phone]. Not Detected results do not preclude Influenza A/B or RSV infections since the adequacy of sample collection or low viral burden may impact the clinical sensitivity of this test method. Performed By: #### C OINP #### [facility] [address] [place] [id number] INFLUENZA B, PCR Not detected Normal Not Detected [facility] Comment on above: Result Comment: Resp iratory virus testing is performed routinely by PCR for Influenza A/B and RSV. If Influenza and RSV PCR are negative, testing for parainfluenza 1,2,3 viruses and adenovirus is routinely performed for oncology inpatients and intensive care unit patients at [facility] and is available on request on other patients by calling Laboratory Client Services at [phone] Not Detected results do not preclude Influenza [...] by the Microbiology Laboratory, Department of Pathology, [place], [place]. It has not been cleared or approved by the US Food and Drug Administration; however, FDA clearance or approval is not currently required for clinical use. This test should not be regarded as investigational or for research purposes. Performed By: #### C OINP #### [facility] [address] [place] [address] SARS-CoV-2 (COVID-19) RNA PENNY+probe Ql (Unsp spec) Not detected Normal Not Detected [facility] Comment on above: Result Comment: . This [...] patient management decisions. Fact sheet for providers: https://www.fda.gov/media/033289/download Fact sheet for patients: https://www.fda.gov/media/117981/download This test has received FDA Emergency Use Authorization (EUA) and has been verified by [facility] ([facility]). This test is only authorized for the duration of time that circumstances exist to justify the authorization of the emergency use of in vitro diagnostic tests for the detection of SARS-CoV-2 virus and/or diagnosis of COVID-19 infection under section 564(b)(1) of the Act, 21 U.S.C. 360bbb-3(b)(1), unless the authorization is terminated or revoked sooner. [facility] is certified under CLIA-88 as qualified to perform high complexity testing. Testing is performed in the [facility] laboratories located at [address] [place] [address]. Performed By: #### C OINP #### [address] [place] [address] INFLUENZA A/B, COVID 2019 PC R,SYMPTOMATICon 03-11-2021 DATE OF SYMPTOM ONSET [YYYYMMDD]? [id number] Normal [facility] Comment on above: Performed By: #### C OINP #### [address] [place] [address] Lab Specimen Source Nasal, Nasopharyngeal Normal [facility] Comment on above: Performed By: #### C OINP #### [address] 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 Filomena Zamora (RESTAURANT GENERAL MANAGER-UTILIZATION MANAGEMENT RN) (Signed Addendum 12-Mar-2021 13:53) Spoke with patient and advised her of negative Covid test results, patien (more content not included)... Normal [facility] Hemoglobin and Hematocriton 12-10-2016 Hematocrit (HCT) 30.2 % Low 36.5-46.6 [facility] Comment on above: Performed By: #### 2 [id number] ####[facility] [address] [place] [address] Hemoglobin mass conc (Bld) 9.8 g/dL Low 11.8-15.3 [facility] Comment on above: Performed By: #### 2 [id number] ####[facility] Kff[address] [place] [address] CBC With Differentialon 11-28 Basophils Auto #/vol (Bld) 0.05 10*3/uL Normal 0.01-0.07 [facility] Comment on above: Performed By: #### 2 [id number] ####[facility] [address] [place] [address] Basophils/100 WBC Auto (Bld) 0.5 % Normal 0.1-1.2 [facility] Comment on above: Performed By: #### 2 [id number] ####[facility] Xhr[address] [place] [address] Eosinophils 0.08 10*3/uL Normal 0.04-0.50 [facility] Comment on above: Performed By: #### 2 [id number] ####[facility] Zii[address] [place] [address] Eosinophils/100 leukocytes 0.7 % Normal 0.0-8.1 [facility] Comment on above: Performed By: #### 2 [id number] ####[facility] [address] [place] [address] Erythrocyte distribution width Auto Ratio (RBC) 14.8 % Normal 12.0-15.4 [facility] Comment on above: Performed By: #### 2 [id number] ####[facility] [address] [place] [address] Erythrocytes (RBC) 0.0 /100{WBCs} Normal [facility] Comment on above: Performed By: #### 2 [id number] ####[facility] [address] [place] [address] Erythrocytes (RBC) 3.87 10*6/uL Normal 3.85-5.10 [facility] Comment on above: Performed By: #### 2 [id number] ####[address] [place] [address] Erythrocytes (RBC) 0.00 10*3/uL Normal [facility] Comment on above: Performed By: #### 2 [id number] ####[address] [address] Hematocrit (HCT) 34.5 % Low 36.5-46.6 [facility] Comment on above: Performed By: #### 2 260419 ####[address] [address] Hemoglobin mass conc (Bld) 11.4 g/dL Low 11.8-15.3 [facility] Comment on above: Performed By: #### 2 [id number] ####[address] [address] Imm Grans Absolute 0.55 10*3/uL High 0.00-0.21 [facility] Comment on above: Performed By: #### 2 664148 ####[address] [address] Immature granulocytes #/vol (Bld) 5.0 % Normal [facility] Comment on above: Performed By: #### 2 688146 ####[address] [address] Lymphocytes 1.91 10*3/uL Normal 0.40-2.84 [facility] Comment on above: Performed By: #### 2 [id number] ####[address] [place] [address] Lymphocytes/100 leukocytes 17.2 % Normal 15.7-50.5 [facility] Comment on above: Performed By: #### 2 [id number] ####[address] [address] MCH 29.5 pg Normal 27.5-33.0 [facility] Comment on above: Performed By: #### 2 650264 ####[facility] [address] [place] [address] MCHC mass conc (RBC) 33.0 g/dL Normal 30.1-35.0 [facility] Comment on above: Performed By: #### 2 486674 ####[facility] [address] [place] [address] MCV 89.1 fL Normal 85.4-100.0 [facility] Comment on above: Performed By: #### 2 [id number] ####[facility] [address] [place] [address] Monocytes 0.84 10*3/uL High 0.25-0.83 [facility] Healthca re Comment on above: Performed By: #### 2 [id number] ####[facility] [address] [place] [address] Monocytes/100 leukocytes 7.6 % Normal 4.8-12.7 [facility] Comment on above: Performed By: #### 2 [id number] ####[facility] [address] [place] [address] Neutrophils 7.66 10*3/uL High 1.95-6.85 [facility] are Comment on above: Performed By: #### 2 [id number] ####[facility] [address] [place] [address] Neutrophils/100 leukocytes 69.0 % Normal 36.8-73.2 [facility] Comment on above: Performed By: #### 2 [id number] ####[facility] [address] [place] [address] Platelet mean volume (PMV) 10.7 fL Normal 9.9-12.1 [facility] Comment on above: Performed By: #### 2 [id number] ####[facility] [address] [place] [address] Platelets 197 10*3/uL Normal 155-404 [facility] Healthcar e Comment on above: Performed By: #### 2 186621 ####[facility] [address] [place] [address] RDW SD 48.2 fL Normal 39.3-48.6 [facility] Comment on above: Performed By: #### 2 591013 ####[facility] [address] [place] [address] WBC (Leukocytes) 11.1 10*3/uL High 4.4-9.9 [facility] He althcare Comment on above: Performed By: #### 2 [id number] ####[facility] [address] [place] [address] Pathology ([facility])on 12-09-2016 Pathology ([facility]) FINAL SURGICAL PATHOLOGY [id number] FINAL DIAGNOSISPLACENTA-THIRD TRIMESTER PLACENTA WITH ACCESSORY LOBE , 470 GRAMS.FOCAL FIBRIN PLAQUE FORMATION.FOCAL DYSTROPHIC MICROCALCIFICATIONS.THR EE-VESSEL UMBILICAL CORD, NEGATIVE FOR FUNISITIS. MEMBRANES, NEGATIVE FOR CHORIOAMNIONITIS.CLINIC AL HISTORY: 37 WEEKS INTRAUTERINE , HISTORY OF PREVIA WITH BLEEDINGOPERATION:PRIMA RY SECTIONSPECIMEN(S):(A) PLACENTA, THIRD TRIMESTERPerformed at [facility], [address] [place] [address] [id number] DESCRIPTION:Received fresh, labeled with the patient's name, [...] are intact and range from0.05-0.1 cm in diameter.Welding Machine Operator Thermit sections of cord, membranes, and placenta are submitted in sixcassettes.TASSummary of cassettes:A1 - cordA2, A3 - membranesA4, A5, A6 - human resources representative sections of placentaSigned Out by:Kwame PITTMANorted: 12/11/2016 Normal [facility] Comment on above: Performed By: #### S UR ####[facility] [address] [place] [address] Red Blood Cellson 12-09-2016 Erythrocytes (RBC) Normal [facility] He althcare Comment on above: Result Comment: [id number] released Performed By: #### R C ####[facility] (UNKNOWN)[id number] [place], [place] [address] Type and Screenon 12-09-2016 Antibody Screen Negative Normal [facility] Healt hcare Comment on above: Performed By: #### T S3 ####[facility] [address] [place] [address] Group and Rh Positive Normal [facility] Healthca re Comment on above: Performed By: #### T S3 ####[facility] [address] [place] [address] PREG COMPL ECHO W/O NIKKI ALIZA VEYon [...] closed with length of 3.3 cm. Normal [facility] Culture Urineon 11-06-2016 Culture Urine STATUS: FINAL REPORT SITE: SOURCE: Urine Culture Urine: <1,000 cfu/ml--No growth Normal [facility] Comment on above: Performed By: #### 6 [id number] ####[facility] [address] [place] [address] Vital Signs Date Time Vital Sign Value Performing Clinician Facility 09-07-2024 15:35-0400 Body mass index (BMI) [Ratio] 40.21 kg/m2 [facility] Work Phone: [facility] 09-07-2024 15:35-0400 Body weight 102.97 kg ideeli ConnerFirst30Days Work Phone: [facility] 09-07-2024 15:35-0400 Diastolic blood pressure 76 mm[Hg] [employer] Work Phone: [facility] 09-07-2024 15:35-0400 Systolic blood pressure 124 mm[Hg] ideeli Conner [employer] Work Phone: [facility] 08-31-2024 11:53-0400 Body mass index (BMI) [Ratio] 39.86 kg/m2 Karyna BENITES Work Phone: [facility] 08-31-2024 11:53-0400 Body weight 102.06 kg Karyna BENITES Work Phone: [facility] 08-31-2024 11:53-0400 Diastolic blood pressure 70 mm[Hg] Karyna BENITES Work Phone: [facility] 08-31-2024 11:53-0400 Systolic blood pressure 120 mm[Hg] Karyna BENITES Work Phone: [facility] 08-23-2024 15:07-0400 Body mass index (BMI) [Ratio] 39.7 kg/m2 Andrea Conner DO Work Phone: [facility] 08-23-2024 15:07-0400 Body weight 101.66 kg Andrea Conner DO Work Phone: [facility] 08-23-2024 15:07-0400 Diastolic blood pressure 78 mm[Hg] Andrea Conner DO Work Phone: [facility] 08-23-2024 15:07-0400 Systolic blood pressure 120 mm[Hg] Andrea Conner DO Work Phone: [facility] 08-08-2024 14:32-0400 Body mass index (BMI) [Ratio] 39.33 kg/m2 Andrea Conner DO Work Phone: [facility] 08-08-2024 14:32-0400 Body weight 100.7 kg Andrea Conner DO Work Phone: [facility] 08-08-2024 14:32-0400 Diastolic blood pressure 78 mm[Hg] Andrea Conner DO Work Phone: [facility] 08-08-2024 14:32-0400 Systolic blood pressure 122 mm[Hg] Andrea Conner DO Work Phone: [facility] 07-25-2024 11:01-0400 Body mass index (BMI) [Ratio] 39.55 kg/m2 Dina Gerard NP Work Phone: [facility] 07-25-2024 11:01-0400 Body weight 101.27 kg Dina Moustapha [employer] Work Phone: [facility] 07-25-2024 11:01-0400 Diastolic blood pressure 80 mm[Hg] Dina Moustapha [employer] Work Phone: [facility] 07-25-2024 11:01-0400 Systolic blood pressure 116 mm[Hg] Dina Moustapha [employer] Work Phone: [facility] 07-11-2024 11:22-0400 Body mass index (BMI) [Ratio] 39.37 kg/m2 Andrea Conner DO Work Phone: [facility] 07-11-2024 11:22-0400 Body weight 100.81 kg Andrea Conner DO Work Phone: [facility] 07-11-2024 11:22-0400 Diastolic blood pressure 80 mm[Hg] Andrea Conner DO Work Phone: [facility] 07-11-2024 11:22-0400 Systolic blood pressure 120 mm[Hg] Andrea Conner DO Work Phone: [facility] 06-22-2024 13:40-0400 Body mass index (BMI) [Ratio] 39.33 kg/m2 Andrea Conner DO Work Phone: [facility] 06-22-2024 13:40-0400 Body weight 100.7 kg Andrea Conner DO Work Phone: [facility] 06-22-2024 13:40-0400 Diastolic blood pressure 74 mm[Hg] Andrea Conner DO Work Phone: [facility] 06-22-2024 13:40-0400 Systolic blood pressure 118 mm[Hg] Andrea Conner DO Work Phone: [facility] 04-19-2024 10:48-0500 Body mass index (BMI) [Ratio] 37.2 kg/m2 Andrea Conner DO Work Phone: [facility] 04-19-2024 10:48-0500 Body weight 95.25 kg Andrea Conner DO Work Phone: [facility] 04-19-2024 10:48-0500 Diastolic blood pressure 80 mm[Hg] Andrea Conner DO Work Phone: [facility] 04-19-2024 10:48-0500 Systolic blood pressure 122 mm[Hg] Andrea Conner DO Work Phone: [facility] 02-28-2024 09:00-0500 Blood Pressure Location TIARRA KATZ [facility] 02-28-2024 09:00-0500 Body temperature 98.96 [degF] [facility] 02-28-2024 09:00-0500 Diastolic blood pressure 80 mm[Hg] [facility] 02-28-2024 09:00-0500 Heart rate 92 /min [facility] 02-28-2024 09:00-0500 SaO2% (BldA) [Mass fraction] 98 % [facility] 02-28-2024 09:00-0500 Systolic blood pressure 124 mm[Hg] [facility] 12-28-2023 08:37-0400 Body height 160 cm Karen Bolanos MD Work Phone: [facility] 12-28-2023 08:37-0400 Body mass index (BMI) [Ratio] 37.02 kg/m2 Karen Bolanos MD Work Phone: [facility] 12-28-2023 08:37-0400 Body temperature 98.6 [degF] Karen Bolanos MD Work Phone: [facility] 12-28-2023 08:37-0400 Body weight 94.8 kg Karen Bolanos MD Work Phone: [facility] 12-28-2023 08:37-0400 Diastolic blood pressure 78 mm[Hg] Karen Bolanos MD Work Phone: [facility] 12-28-2023 08:37-0400 Heart rate 76 /min Karen Bolanos MD Work Phone: [facility] 12-28-2023 08:37-0400 SaO2% (BldA) [Mass fraction] 98 % Karen Bolanos MD Work Phone: [facility] 12-28-2023 08:37-0400 Systolic blood pressure 116 mm[Hg] Karen Bolanos MD Work Phone: [facility] 06-08-2023 09:50-0400 Body height 160 cm Rahul Zheng MD Work Phone: [facility] 06-08-2023 09:50-0400 Body weight 89 kg Rahul Zheng MD Work Phone: [facility] 06-08-2023 09:50-0400 Diastolic blood pressure 83 mm[Hg] Rahul Zheng MD Work Phone: [facility] 06-08-2023 09:50-0400 Systolic blood pressure 132 mm[Hg] Rahul Zheng MD Work Phone: [facility] 03-16-2023 15:08-0500 Blood Pressure Location TIARRA KATZ [facility] 03-16-2023 15:08-0500 Body temperature 98.42 [degF] TIARRA KATZ [facility] 03-16-2023 15:08-0500 Diastolic blood pressure 84 mm[Hg] TIARRA KATZ [facility] 03-16-2023 15:08-0500 Heart rate 73 /min TIARRA KATZ [facility] 03-16-2023 15:08-0500 SaO2% (BldA) [Mass fraction] 96 % TIARRA KATZ [facility] 03-16-2023 15:08-0500 Systolic blood pressure 128 mm[Hg] TIARRA KATZ [facility] 03-11-2021 12:17-0500 Body height 160 [...] 97 % Karen Luis Miguel Other Phone[facility] 03-11-2021 12:17-0500 Systolic blood pressure 101 mm[Hg] Karen Luis Miguel Other Phone: [facility] Encounters Encounter Date Encounter Type Care Provider Facility Start: 09-07-2024 End: 09-07-2024 ambulatory ANDREA PRIETO Not Available Start: 09-07-2024 End: 09-07-2024 flow sheet Andrea Prieto DO Work Phone: [facility] Comment on above: Third trimester preg will; 37 weeks gestation of Start: 09-04-2024 End: 09-04-2024 Clinisync Result Encounter Andrea Conner DO Work Phone: [facility] Unsolicited Start: 09-04-2024 End: 09-04-2024 Clinisync Result Encounter Andrea Conner DO Work Phone: [facility] Unsolicited Start: 08-31-2024 End: 08-31-2024 ambulatory KARYNA CRAIG Not Available Start: 08-31-2024 End: 08-31-2024 flow sheet Karyna Kiara PA Work Phone: [facility] Comment [...] 07-25-2024 End: 07-25-2024 Bamboo flowsheet Dina Moustapha [employer] Work Phone: [facility] Start: 07-25-2024 End: 07-25-2024 Bamboo flowsheet Dina Moustapha [employer] Work Phone: [facility] Start: 07-25-2024 End: 07-25-2024 flow sheet Dina Moustapha [employer] Work Phone: [facility] Comment on [...] Clinisync Result Encounter Karyna BENITES Work Phone: [facility] External Department Unsolicited Start: 07-08-2024 End: 07-08-2024 Clinisync Result Encounter Karyna Craig PA Work Phone: [facility] Unsolicited Start: [...] dates Start: 06-01-2024 End: 06-01-2024 ambulatory [facility] Facility:[facility] Start: 06-01-2024 End: 06-01-2024 Patient encounter procedure Whi Tech 3 Extension Agent [facility] Comment on above: Encounter for anatomic survey (Primary Dx); Obesity affecting in second trimester, unspecified obesity type; Class 1 obesity without serious comorbidity with body mass index (BMI) of 34.0 to 34.9 in adult, unspecified obesity type; 23 weeks gestation of Start: 05-31-2024 End: 05-31-2024 ambulatory ANDREA CONNER Not Available Start: 05-27-2024 End: 05-27-2024 Transcribe Orders Extension Agent Transcribe Provider Maternal Medicine Comment on above: [...] 02-28-2024 End: 02-28-2024 ambulatory TIARRA KATZ Facility[facility] Start: 02-28-2024 End: 02-28-2024 Patient encounter procedure TIARRA KATZ [facility] Start: 02-16-2024 End: 02-16-2024 ambulatory Andressa Abraham RESTAURANT GENERAL MANAGER.UTILIZATION MANAGEMENT RN Work Phone: [facility] Comment on above: Records Start: 02-09-2024 End: 02-09-2024 Nursing evaluation of patient and report Fern Lamar MD Work Phone: [facility] Comment on above: resulting from assisted reproductive technology in first trimester Start: 02-09-2024 End: 02-09-2024 ambulatory ANDRESSA ABRAHAM Facility:[facility] Start: 01-21-2024 End: 01-21-2024 ambulatory JESSI YOO Facility:[facility] Start: 01-20-2024 End: 01-20-2024 ambulatory Andressa Antunez Jarad TEMPLE.UTILIZATION MANAGEMENT RN Work Phone: [facility] Comment on above: resulting from assisted reproductive technology in first trimester (Primary Dx) Start: 01-20-2024 End: 01-20-2024 Telemedicine consultation with patient Andressa Abraham WON Work Phone: [facility] Start: 01-19-2024 End: 01-19-2024 ambulatory JESSI YOO Facility:[facility] Start: 01-18-2024 End: 01-18-2024 Telephone encounter Andressa Abraham UTILIZATION MANAGEMENT RN Work Phone: [facility] Comment on above: +hpt 01/15 after an iui Start: 01-02-2024 End: 01-02-2024 ambulatory ANYI GANT Facility:[facility] Start: 01-02-2024 End: 01-02-2024 Patient encounter procedure Anyi Gant MD Work Phone: [facility] Comment on above: Encounter for artifi cial insemination (Primary Dx) Procreative manageme nt (Primary Dx) Start: 12-30-2023 End: 12-30-2023 ambulatory ANDRESSA JARAD Facility:[facility] Start: 12-28-2023 End: 12-28-2023 Shawnboo flowsheet Karen Bolanos MD Work Phone: [facility] Start: 12-28-2023 End: 12-28-2023 Bamboo flowsheet Karen Bolanos MD Work Phone: [facility] Start: 12-28-2023 End: 12-28-2023 Office outpatient visit 15 minutes Karen Bolanos MD Work Phone: [facility] Comment on above: Infertility, female (Primary Dx); BMI 37.0-37.9, adult; Morbid obesity (CMS/HCC) Start: 12-28-2023 End: 12-28-2023 ambulatory KAREN BOLANOS Not Available Start: 12-05-2023 End: 12-05-2023 ambulatory ANDRESSA ABRAHAM Facility:[facility] Start: 12-05-2023 End: 12-05-2023 Patient encounter procedure Andrology Digital Artist Work Phone: [facility] Comment on above: Procreative manageme nt (Primary Dx) Female infertility ( Primary Dx) Start: 12-04-2023 End: 12-04-2023 ambulatory Andressa Abraham APRN.UTILIZATION MANAGEMENT RN Work Phone: [facility] Comment on above: Financial clearance Start: 11-23-2023 End: 11-23-2023 ambulatory Andressa Abraham APRN.UTILIZATION MANAGEMENT RN Work Phone: [facility] Comment on above: Reproductive mgmt, i nfertility due to male factor (Primary Dx) Start: 11-23-2023 End: 11-23-2023 Telemedicine consultation with patient Andressa Abraham APRN.LEXUS Work Phone: [facility] Start: 10-29-2023 E-mail encounter fro m caregiver Vidhya Pitt APRN.UTILIZATION MANAGEMENT RN Work Phone: [facility] Start: 10-29-2023 Follow-up encounter Vidhya osorio APRN.UTILIZATION MANAGEMENT RN Work Phone: [facility] Comment on above: Follow up Start: 10-16-2023 End: 10-16-2023 ambulatory JESSI YOO Facility:[facility] Start: 10-12-2023 Telephone encounter Andressa G Jarad RESTAURANT GENERAL MANAGER.UTILIZATION MANAGEMENT RN Work Phone: [facility] Comment on above: +ovulation test Sat& Sund d14 & 15 partner calling Start: 10-05-2023 ambulatory Andressa Deleon angelita RESTAURANT GENERAL MANAGER.UTILIZATION MANAGEMENT RN Work Phone: [facility] Comment on above: Doner Start: 09-11-2023 End: 09-11-2023 ambulatory ANDRESSA ABRAHAM Facility:[facility] Start: 09-11-2023 End: 09-11-2023 Patient encounter procedure Andressa Abraham RESTAURANT GENERAL MANAGER.UTILIZATION MANAGEMENT RN Work Phone: [facility] Comment on above: Encounter for fertil ity planning (Primary Dx) Start: 07-28-2023 Telephone encounter Rahul carroll MD Work Phone: [facility] Comment on above: Lila bloodwork compl eted today Start: 06-15-2023 End: 06-15-2023 ambulatory Andressa Abraham RESTAURANT GENERAL MANAGER.UTILIZATION MANAGEMENT RN Work Phone: [facility] Comment on above: Encounter for fertil ity planning (Primary Dx); Encounter for other genetic testing of female for procreative management Start: 06-15-2023 End: 06-15-2023 Telemedicine consultation with patient Andressa Abraham RESTAURANT GENERAL MANAGER.UTILIZATION MANAGEMENT RN Work Phone: [facility] Start: 06-08-2023 End: 06-08-2023 Patient encounter procedure Rahul Zheng MD Work Phone: [facility] Comment on above: Procreative manageme nt counseling (Primary Dx); BMI 34.0-34.9,adult Start: 03-16-2023 End: 03-16-2023 ambulatory TIARRA KATZ [facility] Start: 03-16-2023 End: 03-16-2023 Patient encounter procedure TIARRA KATZ [facility] Start: 03-19-2022 End: 03-19-[address] ANDREA PRIETO Facility: Start: 03-11-2021 End: 03-11-2021 Emergency department patient visit Filomena Zamora [facility] Start: 12-09-2016 End: 12-11-2016 Evaluation and management of inpatient KEITH GREENWOOD Facility:[facility] Start: 12-03-2016 Ambulatory KEITH GREENWOOD Facility: [facility] Start: 11-13-2016 End: 11-13-2016 Ambulatory CHARLIE Rowena JOEL Facility:[facility] Start: 11-06-2016 Ambulatory CHARLIE Rowena CASEYRowena Faci lity:[facility] Procedures Date Procedure Procedure Detail Performing Clinician Start: 09-07-2024 Urnls dip stick/tabl et rgnt non-auto w/o micrscp Andrea Conner DO Work Phone: Start: 09-04-2024 US OB BPP W NON-STRESS Andrea Conner DO Work Phone: Start: 08-31-2024 Urnls dip stick/tabl et rgnt [...] after 1st trimest 03/30 gestation Tristan Gloria RESTA[employer]ANT GENERAL MANAGER.UTILIZATION MANAGEMENT RN Work Phone: Start: 04-19-2024 RECURRENT VAGINITIS (HTRX) [...] after 1st trimest 03/30 gestation Andressa Abraham RESTAURANT GENERAL MANAGER.UTILIZATION MANAGEMENT RN Work Phone: Start: 03-19-2022 Microscopic observat ion [Identifier] in Cervix by Cyto stain Karen Bolanos MD Work Phone: section TIARRA CALVO Removal of intrauter ine device TIARRA KATZ Plan of Treatment Date Care Activity Detail Author Start: 04-19-2029 Screening for malign ant neoplasm of cervix [facility] Start: 03-19-2025 Screening for malign ant neoplasm of cervix [facility] Start: 11-28-2024 Influenza vaccination Influenz a Vaccine (Season Ended) [facility] [facility] Start: 09-07-2024 End: 09-07-2024 Patient encounter procedure 09/07/2024 3:00 PM EDT Routine [facility] [address] [place] [phone] Andrea Prieto DO [address] [place] [address] [facility] Start: 08-31-2024 End: 08-31-2025 CULTURE, GROUP B STREP WITH SUSCEPTIBLITY CULTURE, GROUP B STREP WITH SUSCEPTIBLITY Lab Routine Third trimester Expected: 08/31/2024, Expires: 08/31/2025 [facility] Work Phone: Comment on above: Expected: 08/31/2024 , Expires: 08/31/2025 Start: 08-31-2024 End: 08-31-2024 Patient encounter procedure 08/31/2024 11:20 AM EDT Routine [facility] [address] [place] [phone] Karyna Craig, PA [address] [place] [address] [place] [address] [facility] Start: 08-23-2024 End: 08-23-2024 Patient encounter procedure 08/23/2024 1:10 PM EDT Routine [facility] [address] [place] [address] Karyna Craig, PA [address] [place] [address] [place] [address] [facility] Start: 08-08-2024 End: 08-08-2024 [...] Routine [facility] [address] [place] [phone] Andrea Prieto, DO [address] [place] [address] [facility] Start: 07-11-2024 End: 07-11-2024 Professional / ancillary services management 07/11/2024 10:30 AM EDT Ancillary Procedure [facility] [address] [place] [phone] [facility] Start: 07-05-2024 End: 07-05-2024 Patient encounter procedure 07/05/2024 11:00 AM EDT Office Visit [facility] [address] [place] [phone] Andrea Prieto, DO [address] [place] [address] [facility] Start: 06-22-2024 End: 06-22-2025 [...] mellitus screening Expected: 06/22/2024 (Approximate), Expires: 06/22/2025 [facility] Comment on above: Expected: 06/22/2024 (Approximate), Expires: 06/22/2025 Start: 06-22-2024 End: 06-22-2025 US for US OB follow up transabdominal approach Imaging Routine size inconsistent with dates Expected: 06/22/2024, Expires: 06/22/2025 [facility] Work Phone: Comment on above: Expected: 06/22/2024 , Expires: 06/22/2025 Start: 06-01-2024 End: 06-01-2024 Patient encounter procedure 06/01/2024 11:00 AM EST Routine Office Visit Maternal Medicine [facility] [address] [place] [address] anatomy Maternal Medicine [facility] Comment on above: anatomy Start: 05-27-2024 End: 05-27-2025 OBSTETRIC ULTRASOUND WHI OBSTETRIC ULTRASOUND WHI Anc Imaging Routine Encounter for anatomic survey Expected: 05/27/2024, Expires: 05/27/2025 [facility] Work Phone: Comment on above: Expected: 05/27/2024 , Expires: 05/27/2025 Start: 04-19-2024 End: 06-17-2024 Alpha fetoprotein, maternal Alpha fetoprotein, maternal Lab Routine Screening, , for anatomic survey Expected: 04/19/2024 (Approximate), Expires: 06/17/2024 [facility] Comment on above: Expected: 04/19/2024 (Approximate), [...] AM EST Routine [facility] [address] [place] [phone] Andrea Prieto, DO [address] [place] [address] Arrived [facility] Comment on above: Arrived Start: 04-12-2024 End: 04-12-2024 Patient encounter procedure 04/12/2024 11:10 AM EST Routine [facility] [address] [place] [phone] Andrea Prieto, DO [address] [place] [address] [facility] Start: 03-11-2024 End: 03-11-2025 ABO/Rh ABO/Rh Lab Routine Missed menses , unspecified gestational age Expected: 03/11/2024 (Approximate), Expires: 03/11/2025 [facility] Comment on above: Expected: 03/11/2024 (Approximate), Expires: 03/11/2025 Start: 03-11-2024 End: 03-11-2025 Blood type and Indirect antibody screen panel - Blood Type and screen Lab Routine Missed menses , unspecified gestational age Expected: 03/11/2024 (Approximate), Expires: 03/11/2025 [facility] Work Phone: Comment on above: Expected: 03/11/2024 (Approximate), Expires: 03/11/2025 Start: 03-11-2024 End: 03-11-2025 Drugs of abuse panel - Urine by Screen method Rapid drug screen, urine Lab Routine , unspecified gestational age Encounter for supervision of normal first in first trimester Expected: 03/11/2024 (Approximate), Expires: 03/11/2025 [facility] Comment on above: Expected: 03/11/2024 (Approximate), Expires: 03/11/2025 Start: 02-09-2024 End: 02-09-2024 Nursing evaluation of patient and report 02/09/2024 10:30 AM EST Nurse Visit [facility] [address] [place] [address] Rej, Nurse Sarmad [facility] [address] [place] [address] ob scan [facility] Comment on above: ob scan Start: 01-25-2024 End: 01-25-2024 Patient encounter procedure 01/25/2024 9:40 AM EDT Office Visit [facility] [address] [place] [address] Andrea Prieto DO [address] [place] [address] [facility] Start: 01-20-2024 End: 01-19-2025 OBSTETRIC ULTRASOUND [facility]I OBSTETRIC ULTRASOUND [facility] Anc Imaging Routine resulting from assisted reproductive technology in first trimester Expected: 01/20/2024, Expires: 01/19/2025 [facility] Work Phone: Comment on above: Expected: 01/20/2024 , Expires: 01/19/2025 Start: 12-28-2023 End: 12-28-2023 Patient encounter procedure 12/28/2023 8:20 AM EDT Office Visit [facility] [address] [place] [address] Karen Bolanos MD [address] [place] [address] Arrived [facility] Comment on above: Arrived Start: 12-05-2023 End: 12-05-2023 Patient encounter procedure [facility] Comment on above: donor thaw IUI-D Start: 11-29-2023 Covid-19 Vaccine ( season) Covid-19 Vaccine () [facility] Start: 11-29-2023 Covid-19 Vaccine ( season) Covid-19 Vaccine ( season) [facility] Start: 11-29-2023 Influenza vaccination Influenza Vacc ine (#1) [facility] Start: 10-12-2023 End: 01-11-2024 Progesterone [Mass/volume] in Serum or Plasma PROGESTERONE Lab Routine Female infertility Expected: 10/12/2023, Expires: 01/11/2024 [facility] Work Phone: Comment on above: Expected: 10/12/2023 , Expires: 01/11/2024 Start: 06-15-2023 End: 09-14-2023 CARRIER SCREEN, EXPANDED CARRIER SCREEN, EXPANDED Lab Routine Encounter for other genetic testing of female for procreative management Expected: 06/15/2023, Expires: 09/14/2023 [facility] Work Phone: Comment on above: Expected: 06/15/2023 , Expires: 09/14/2023 Start: 03-30-2023 Behavioral Health Screening Behavioral Health Screening [facility] Start: 03-30-2023 Depression Assessment Depression Ass essment [facility] Start: 11-28-2022 Covid-19 Vaccine ( season) Covid-19 Vaccine () [facility] Start: 11-28-2022 Influenza vaccination Influenza Vacc ine (#1) [facility] Start: 08-01-2021 Screening for malign ant neoplasm of cervix [facility] Start: 03-18-2018 Screening for malign ant neoplasm of cervix Pap Testing [facility] Start: 03-18-2016 Screening for malign ant neoplasm of cervix Cervical Cancer Screening [facility] Start: 08-01-2009 Anxiety Screening Anxiety Screening [facility] Start: 08-01-2009 Depression Screening Depression Scre ening [facility] Start: 08-01-2009 Hepatitis C screening Hepatitis C Sc reening [facility] Start: 08-01-2009 HIV screening HIV Screening [facility] Start: 01-05-2004 Hepatitis B Vaccine (2 of 3 - 3-dose series) Hepatitis B Vaccine (2 of 3 - 3-dose series) [facility] Start: 08-01-2002 Urine microalbumin profile DTaP,Tdap,Td Vaccine (5 - Tdap) [facility] Bacteria identified in Urine by Culture Urine culture Microbiology Routine Missed menses Ordered: 03/11/2024 [facility] Comment on above: Ordered: 03/11/2024 CBC W Auto Different ial panel - Blood CBC and differential Lab Routine Missed menses , unspecified gestational age Ordered: 03/11/2024 [facility] Comment on above: Ordered: 03/11/2024 CHLAMYDIA TRACHOMATI S (GENITO/STI) CHLAMYDIA TRACHOMATIS (GENITO/STI) Lab Routine Vaginal discharge STD exposure Ordered: 04/19/2024 [facility] Comment on above: Ordered: 04/19/2024 End: 01-17-2025 Choriogonadotropin.beta subunit [Units/volume] in Serum or Plasma HCG QUANTITATIVE Lab Routine Encounter for test, result positive 2x per week for 2 Occurrences starting 01/18/2024 until 01/17/2025 [facility] Work Phone: Comment on above: 2x per week for 2 Oc currences starting 01/18/2024 until 01/17/2025 Cytology Cervical or vaginal smear or scraping study Pap Smear Pathology and Cytology Routine Well woman exam with routine gynecological exam Ordered: 04/19/2024 [facility] Work Phone: Comment on above: Ordered: 04/19/2024 Hemoglobin A1c/Hemoglobin.total in Blood Hemoglobin A1c Lab Routine Missed menses , unspecified gestational age Ordered: 03/11/2024 [facility] Comment on above: Ordered: 03/11/2024 Hepatitis B virus surface Ag [Presence] in Serum or Plasma by Immunoassay Hepatitis B surface antigen Lab Routine Missed menses , unspecified gestational age Ordered: 03/11/2024 [facility] Comment on above: Ordered: 03/11/2024 Hepatitis C virus Ab [Presence] in Serum or Plasma by Immunoassay Hepatitis C antibody Lab Routine Missed menses , unspecified gestational age Ordered: 03/11/2024 [facility] Comment on above: Ordered: 03/11/2024 HIV-1/HIV-2 antigen/antibody combination immunoassay HIV-1 and HIV-2 antibodies Lab Routine Missed menses , unspecified gestational age Ordered: 03/11/2024 [facility] Comment on above: Ordered: 03/11/2024 Human papilloma viru s DNA [Presence] in Unspecified specimen by Probe with amplification HPV DNA probe, amplified Microbiology Routine Well woman exam with routine gynecological exam Ordered: 04/19/2024 [facility] Comment on above: Ordered: 04/19/2024 Neisseria gonorrhoea e DNA [Presence] in Unspecified specimen by PENNY with probe detection Neisseria gonorrhea DNA probe, direct Lab Routine Vaginal discharge STD exposure Ordered: 04/19/2024 [facility] Comment on above: Ordered: 04/19/2024 Reagin Ab [Presence] in Serum by RPR RPR Lab Routine Missed menses , unspecified gestational age Ordered: 03/11/2024 [facility] Comment on above: Ordered: 03/11/2024 Rubella antibody, IgG Rubella an tibody, IgG Lab Routine Missed menses , unspecified gestational age Ordered: 03/11/2024 [facility] Comment on above: Ordered: 03/11/2024 SURESWAB(R) ADVANCED VAGINITIS PLUS, TMA SURESWAB(R) ADVANCED VAGINITIS PLUS, TMA Pathology and Cytology Routine Vaginal discharge STD exposure Ordered: 04/19/2024 [facility] Comment on above: Ordered: 04/19/2024 Immunizations Immunization Date Immunization Notes Care Provider [facility] 09-13-2023 measles, mumps and rubella virus vaccine Karen Bolanos MD Work Phone: [facility] 06-15-2023 influenza, injectable, quadrivalent, contains preservative Karen Bolanos MD Work Phone: [facility] 06-15-2023 influenza virus vaccine, unspecified formulation Andressa Abraham APRN.CNP Work Phone: [facility] 08-17-2020 SARS-CoV-2 (COVID-19 ) [facility]12[facility] 07-20-2020 SARS-CoV-2 (COVID-19 ) mRNA-1273 vaccine TIARRA MADALYN [facility] 12-10-2016 influenza virus vaccine, unspecified formulation [facility] KAT[facility] 12-10-2016 influenza, injectable, quadrivalent, preservative free Karen Bolanos MD Work Phone: [facility] 02-16-2009 novel [id number], preservative-free, injectable Karen Bolanos MD Work Phone: [facility] 12-08-2003 hepatitis B vaccine, pediatric or pediatric/adolescent dosage [facility] 12-08-2003 measles, mumps and rubella virus vaccine [facility] 12-08-2003 tetanus toxoid, adsorbed Karen Bolanos MD Work Phone: [facility] 10-27-1996 measles, mumps and rubella virus vaccine [facility] 02-08-1993 diphtheria, tetanus toxoids and acellular pertussis vaccine Karen Bolanos MD Work Phone: [facility] 02-08-1993 diphtheria, tetanus toxoids and acellular pertussis vaccine, unspecified formulation Karen Bolanos MD Work Phone: [facility] 02-08-1993 DTaP, unspecified formulation [facility] 02-08-1993 haemophilus influenzae type b vaccine, conjugate unspecified formulation Karen Bolanos MD Work Phone: [facility] 02-08-1993 haemophilus influenzae type b vaccine, HbOC conjugate Karen Bolanos MD Work Phone: [facility] 02-08-1993 Hib, unspecified formulation [facility] 02-08-1993 poliovirus vaccine, unspecified formulation Karen Bolanos MD Work Phone: [facility] 02-07-1992 diphtheria, tetanus toxoids and acellular pertussis vaccine Karen Bolanos MD Work Phone: [facility] 02-07-1992 diphtheria, tetanus toxoids and acellular pertussis vaccine, unspecified formulation Karen Bolanos MD Work Phone: [facility] 02-07-1992 DTaP, unspecified formulation TIARRA KAZT [facility] 02-07-1992 haemophilus influenzae type b vaccine, conjugate unspecified formulation Karen Bolanos MD Work Phone: [facility] 02-07-1992 haemophilus influenzae type b vaccine, HbOC conjugate Karen Bolanos MD Work Phone: [facility] 02-07-1992 Hib, unspecified formulation TIARRA KATZ [facility] 1991 diphtheria, tetanus toxoids and acellular pertussis vaccine Karen Bolanos MD Work Phone: [facility] 1991 diphtheria, tetanus toxoids and acellular pertussis vaccine, unspecified formulation Karen Bolanos MD Work Phone: [facility] 1991 DTaP, unspecified formulation TIARRA KATZ [facility] 1991 haemophilus influenzae type b vaccine, conjugate unspecified formulation Karen Bolanos MD Work Phone: [facility] 1991 haemophilus influenzae type b vaccine, HbOC conjugate Karen Bolanos MD Work Phone: [facility] 1991 Hib, unspecified formulation TIARRA KATZ [facility] 1991 poliovirus vaccine, unspecified formulation Karen Bolanos MD Work Phone: [facility] 1991 diphtheria, tetanus toxoids and acellular pertussis vaccine Karen Bolanos MD Work Phone: [facility] 1991 diphtheria, tetanus toxoids and acellular pertussis vaccine, unspecified formulation Karen Bolanos MD Work Phone: [facility] 1991 DTaP, unspecified formulation TIARRA KATZ [facility] 1991 haemophilus influenzae type b vaccine, conjugate unspecified formulation Karen Bolanos MD Work Phone: [facility] 1991 haemophilus influenzae type b vaccine, HbOC conjugate Karen Bolanos MD Work Phone: [facility] 1991 Hib, unspecified formulation [facility]ARRA KATZ [facility] 1991 poliovirus vaccine, unspecified formulation Karen Bolanos MD Work Phone: [facility] NEGATED: Highlighted row has not occurred!03-16-2023 influenza virus vaccine, unspecified formulation TIARRA KATZ [facility] Payers Date Payer Category Payer Unknown [id number] 2022 [employer] Blue Shield [id number] [id number] 2022 Unknown 2022 Unknown [id number] 1991 Unknown [id number] 2.16.84 [id number] 1991 Unknown [id number] 2.16.8 [id number] 1991 Unknown [id number] 2.16.8 [id number] 1991 Unknown [id number] 2.16.8 [id number] 1991 Unknown [id number] 2.16.8 [id number] 1991 Unknown [id number] 2.16.8 [id number] 1991 Unknown [id number] 2.16.84 [id number] 1991 Unknown [id number] 2.16.84 [id number] 1991 Unknown [id number] 2.16.84 [id number] 1991 Unknown [id number] 2.16.84 [id number] 1991 Unknown [id number] 2.16.84 [id number] 1991 Unknown [id number] 2.16.84 0.1.096285.3.579.2.1258 1991 Unknown [id number] 2.16.84 [id number] 1991 Unknown [id number] 2.16.84 [id number] 1991 Unknown [id number] 2.16.84 [id number] 1991 Unknown [id number] 2.16.84 [id number] 1959 Unknown [id number] Unknown [id number] Social History Date Type Detail Facility [facility] Tobacco smoking consumption unknown [facility] Start: 11-11-2022 End: 03-16-2023 Tobacco smoking status Never smoked tobacco (finding) [facility] Tobacco smoking status Never Phyll[facility] Start: 06-08-2023 End: 12-28-2023 Sex Assigned At Female [facility] Start: 04-12-2012 End: 11-11-2022 Tobacco use and exposure Smokeless tobacco non-user [facility] Start: 06-08-2023 End: 09-07-2024 Alcohol intake Current drinker of alcohol (finding) [facility] Start: 06-08-2023 End: 12-28-2023 History of Social function [facility] Start: 04-12-2012 Alcohol Comment social [facility] Start: 1991 Sex Assigned At Not on file C [facility] Start: 1991 Sex Assigned At Female C [facility] Start: 06-11-2022 Gender identity Identifies as female gender (finding) [facility] Start: 01-12-2023 Sexual orientation Homosexual (findi ng) [facility] Start: 11-10-2022 Alcohol Comment 1-2 [...] meal for a total of 4times daily. [id number] Start: 07-12-2024 End: 08-11-2024 1 each by In Vit ro route Daily Use to check FSBS four times daily [id number] Start: 07-12-2024 End: 08-11-2024 Goals Date Patient Goal Desired Activity /State Personal health goal Functional Status Date Assessment Result Facility 02-28-2024 Functional Status N/A [facility] 03-16-2023 Functional Status N/A [facility] Clinical Notes 03-16-2023 to 09-07-2024 KAMARI Zavala - 09/07/2024 2:50 PM KAMARI Lund - 08/31/2024 11:20 AM Orlin Posadas LPN - 08/23/2024 2:40 PM Caitlyn Rubi MA - 08/08/2024 2:10 PM KAMARI Lund - 06/22/2024 1:20 PM EDT Note Date & Type Note Facility 09-07-2024 History of Presen t illness Narrative Reason [...] episode of recurrent major depressive disorder (HCC) ([facility]/HCC) 12/28/2023 Restless leg 12/28/2023 Resolved Ambulatory [...] Andrea Prieto DO documented in this encounter [facility] 08-31-2024 History of Presen t illness Narrative [...] episode of recurrent major depressive disorder (HCC) ([facility]/HCC) 12/28/2023 Restless leg 12/28/2023 Resolved Ambulatory [...] of: KAMARI Zavala documented in this encounter [facility] 08-23-2024 History of Presen t illness Narrative Reason for Appointment: Patient ID: Nelli Carpenter is a 34 y.o. female who presents for Routine Visit Patient presents today for Return OB appointment. MEDICATIONS Current Outpatient Medications Medication Instructions Alcohol Swabs (Alcohol Prep Pad) 70 % pads 1 Pad, Topical, Daily, Use four times daily to check FSBS. Blood Glucose Monitoring Suppl ([employer] Glucometer) w/Device kit 1 kit, Does not [...] episode of recurrent major depressive disorder (HCC) ([facility]/HCC) 12/28/2023 Restless leg 12/28/2023 Resolved Ambulatory [...] nursing note reviewed. Exam conducted with a insurance consultant present. Vitals: Estimated body mass index is [...] Andrea Prieto DO documented in this encounter [facility] 08-08-2024 History of Presen t illness Narrative Reason for Appointment: Patient ID: Nelli Carpenter is a 34 y.o. female who presents for Routine Visit Patient presents today for Return OB appointment. MEDICATIONS Current Outpatient Medications Medication Instructions Alcohol Swabs (Alcohol Prep Pad) 70 % pads 1 Pad, Topical, Daily, Use four times daily to check FSBS. Blood Glucose Monitoring Suppl ([employer] Glucometer) w/Device kit 1 kit, Does not [...] episode of recurrent major depressive disorder (HCC) ([facility]/HCC) 12/28/2023 Restless leg 12/28/2023 Resolved Ambulatory [...] nursing note reviewed. Exam conducted with a insurance consultant present. Vitals: Estimated body mass index is [...] changes & patient will send results for [employer] next Thursday. Patient is also to start NST/BPP. Order will be sent to [facility] anf [facility] Scheduling. Patient given handout as well. Patient to have sugars monitored locally and is going to cancel upcoming appointment with [facility] telemedicine. Orders Placed This Encounter Procedures POCT urinalysis dipstick manually resulted Follow Up: Patient is to return to office in 3 week for routine OB appointment. Documented by Liane Manzano LPN on behalf of: Andrea Prieto DO documented in this encounter [facility] 07-25-2024 History of Presen t illness Narrative Reason for Appointment: Patient ID: Nelli Carpenter is a 33 y.o. female who presents for Routine Visit Patient presents today for Return OB appointment. MEDICATIONS Current Outpatient Medications Medication Instructions Alcohol Swabs (Alcohol Prep Pad) 70 % pads 1 Pad, Topical, Daily, Use four times daily to check FSBS. Blood Glucose Monitoring Suppl ([employer] Glucometer) w/Device kit 1 kit, Does not [...] episode of recurrent major depressive disorder (HCC) ([facility]/HCC) 12/28/2023 Restless leg 12/28/2023 Resolved Ambulatory [...] nursing note reviewed. Exam conducted with a insurance consultant present. Vitals: Estimated body mass index is [...] Patient has completed level 2 Ultrasound at [facility] but has not yet met with [facility]. She is going to call them to [...] Dina Gerard NP documented in this encounter [facility] 07-20-2024 Telephone encounter Note Received outside referral from Dr. Prieto for GDM consult due to elevated 1 hour glucose 202. Called pt. To schedule appointment no answer, left message with call back phone number. Jessy Lilly RN [facility] 07-20-2024 Miscellaneous Notes Received outside referral from Dr. Prieto for GDM consult due to elevated 1 hour glucose 202. Called pt. To schedule appointment no answer, left message with call back phone number. Jessy Lilly RN documented in this encounter [facility] 07-11-2024 History of Presen t [...] episode of recurrent major depressive disorder (HCC) ([facility]/HCC) 12/28/2023 Restless leg 12/28/2023 Resolved Ambulatory [...] nursing note reviewed. Exam conducted with a insurance consultant present. Vitals: Estimated body mass index is [...] Diabetic and referral will be done to [facility] for Diabetic management. Patient aware that supplies will be sent to pharmacy to take with her to referral appointment. Documented by Liane Manzano LPN on behalf of: Andrea Prieto DO documented in this encounter [facility] 06-22-2024 History of Presen t illness [...] by KAMARI Zavala documented in this encounter [facility] 06-01-2024 Note HNO ID: [id number] Author: LEONID MYERS MD Service: ? Author Type: Physician Type: Progress Notes Filed: 06/01/2024 15:07 Note Text: Please see ultrasound report for details of this visit. Leonid Myers M.D. [facility] 06-01-2024 History of Presen t illness Narrative Please see ultrasound report for details of this visit. Leonid Myers M.D. documented in this encounter [facility] 04-19-2024 History of Presen t illness Narrative Reason for Appointment: Patient ID: Nelli Carpenter is a 33 y.o. female who presents for Routine Visit Patient presents today for Annual Exam., STD Check., and Return OB appointment. MEDICATIONS No current outpatient medications ALLERGIES No Known Allergies PROBLEMS Active Ambulatory Problems Diagnosis Date Noted Mild episode of recurrent major depressive disorder (HCC) ([facility]) 12/28/2023 Restless leg 12/28/2023 Resolved Ambulatory Problems Diagnosis Date Noted No Resolved Ambulatory Problems Past Medical History: Diagnosis Date Asthma ([facility]) BMI 28.0-28.9,adult Depression screening GERD (gastroesophageal reflux disease) History of chlamydia infection HPV in female Well woman exam HISTORY PAST MEDICAL HISTORY SOCIAL HISTORY Past Medical History: Diagnosis Date Asthma ([facility]) BMI 28.0-28.9,adult Depression screening GERD [...] nursing note reviewed. Exam conducted with a insurance consultant present. Vitals: Estimated body mass index is [...] to be obtained. Pt being referred to [facility] for level II ultrasound for IVF [...] Andrea Prieto DO documented in this encounter [facility] 03-11-2024 History of Presen t illness [...] Problems Past Medical History: Diagnosis Date Asthma ([facility]) BMI 28.0-28.9,adult Depression screening GERD [...] or undercooked meat, and stay away from formerly [facility]. Patient has also been advised to [...] Jacqui Ferguson LPN documented in this encounter [facility] 02-28-2024 Hospital Discharg e instructions Patient [...] Centers for Disease Control and Prevention: cdc.gov [employer] Heart Association: heart.org National Heart, Lung, and Blood [place]: nhlbi.nih.gov This information is not intended to replace advice given to you by your health care provider. Make sure you discuss any questions you have with your health care provider. Document Revised: 12/04/2022 Document Reviewed: 11/27/2022 [employer] Patient Education 2023 [employer]. 02/28/2024 09:57:52 Otitis Media, Adult, Qvkx-ef-Vetq Otitis Media, Adult Otitis media is a [...] pain. Follow these instructions at home: Take zmwk-ssc-wubkyjg and prescription medicines only as told by [...] provider. Document Revised: 06/24/2021 Document Reviewed: 06/24/2021 [employer] Patient Education 2023 [employer]. Follow Up Care 02/28/2024 08:48:51 With:Karen Bolanos MD Address: [address] [place] [address]- When: Unknown [facility] 02-28-2024 Note Patient Education ENT [...] Follow these instructions at home: ??? Take qhcu-sqa-xforbrd and prescription medicines only as told by [...] provider. Document Revised: 06/24/2021 Document Reviewed: 06/24/2021 [employer] Patient Education ? 2023 [employer]. Nutrition BMI for Adults Body mass index [...] (Inserted Image. Un (more content not included)... [facility] 02-09-2024 Note HNO ID: [id number] Author: VIDHYA PITT APRN.UTILIZATION MANAGEMENT RN Service: ? Author Type: Nurse Practitioner Type: [...] Plan Move on to OB Vidhya Pitt APRN.UTILIZATION MANAGEMENT RN February 09, 2024 12:27 PM [facility] 02-09-2024 History of Presen t illness [...] Plan Move on to OB Vidhya Pitt APRN.UTILIZATION MANAGEMENT RN February 09, 2024 12:27 PM Scan Visit Patient here for scan. See imaging documentation. Parth Clark MD documented in this encounter [facility] 02-09-2024 Note HNO ID: [id number] Author: PARTH CLARK MD Service: ? Author Type: Physician Type: Progress Notes Filed: 02/09/2024 11:28 Note Text: Scan Visit Patient here for scan. See imaging documentation. Parth Clark MD [facility] 01-20-2024 Note HNO ID: [id number] Author: ANDRESSA ABRAHAM APRN.UTILIZATION MANAGEMENT RN Service: ? Author Type: Nurse Practitioner Type: [...] visit. Either the patient or their legal human resources representative has been informed of the risks [...] which included preparing to see the patient, gqda-tf-cjtw patient care, completing clinical documentation, obtaining and/or [...] grammatical and typographical errors missed in proofreading. [facility] 01-20-2024 History of Presen t illness [...] visit. Either the patient or their legal human resources representative has been informed of the risks [...] schedule the patient for the following- Location: [place] Provider: nurse Visit type: scan Reason for visit/appointment notes: scan Date: 02/08 Time (requested): 1030 If slot is full, please schedule the closest open slot. Call to patient needed: no I spent a total of 30 minutes on the date of the service which included preparing to see the patient, ilqx-id-mmsu patient care, completing clinical documentation, obtaining and/or [...] missed in proofreading. documented in this encounter [facility] 01-18-2024 Telephone encounter Note Patient [...] Yoo PA-C January 18, 2024 4:02 PM [facility] 01-18-2024 Miscellaneous Notes Patient calls [...] regarding next steps. documented in this encounter [facility] 01-18-2024 Telephone encounter Note Please call patient back regarding next steps. [facility] Work Phone: 01-02-2024 Note HNO ID: [id number] Author: FLAVIA ELIZONDO, ? Service: ? Author Type: Special Services Director Type: Progress Notes Filed: 01/02/2024 11:47 Note Text: Thaw for IUI Flavia Rowena Amrita [facility] 01-02-2024 History of Presen t illness Narrative Thaw for IUI Flavia Elizondo documented in this encounter [facility] 01-02-2024 Note HNO ID: [id number] Author: FLAVIA ELIZONDO, ? Service: ? Author Type: Special Services Director Type: Progress Notes Filed: 01/02/2024 11:46 Note Text: IUI Xytex #: [id number] Washed frozen specimen Post: 122 m/ml, 63% Insem#: 34.7 million [facility] 01-02-2024 History of Presen t illness Narrative IUI Xytex #: [id number] Washed frozen specimen Post: 122 m/ml, 63% Insem#: 34.7 million IUI specimen released to provider Flavia Elizondo January 02, 2024 11:23 AM documented in this encounter [facility] 01-02-2024 Note HNO ID: [id number] Author: ANYI GANT MD Service: ? Author [...] Cycle Day: 15 Last menstrual period: 12/19/2023 Amma Protocol: UNIVERSAL PROTOCOL / SAFETY CHECKLIST Procedure [...] discussed with the Patient or Patient's Authorized Welding Machine Operator Thermit. As applicable, any other physician, advance practice provider, medical student, or other health professional student that will be observing or involved in the sensitive examination for educational or training purposes was discussed with the Patient or Authorized Welding Machine Operator Thermit. The Patient or Authorized Welding Machine Operator Thermit has agreed to proceed with the sensitive examination. (Sensitive examination includes inspection and/or palpation of the breasts, pelvis, prostate and anorectal regions) Patient declined insurance consultant. IUI IUI Date: 01/02/24 Partner's Name: [...] Anyi Gant M.D. Reproductive Endocrinology and Infertility [facility] 01-02-2024 Procedure note WHI SARMAD IUI PROCEDURE NOTE Date: 01/02/2024 Primary Proceduralist: Uma Aguilera MD Consents and Labels Consent Signed: Informed Consent obtained and on the chart Labels Verified With Patient: Yes Indications: Nelli Carpenter, is a 33 year old female here today for intrauterine insemination. IUI # 2. Cycle Day: 15 Last menstrual period: 12/19/2023 Amma Protocol: UNIVERSAL PROTOCOL / SAFETY CHECKLIST Procedure [...] discussed with the Patient or Patient's Authorized Welding Machine Operator Thermit. As applicable, any other physician, advance practice provider, medical student, or other health professional student that will be observing or involved in the sensitive examination for educational or training purposes was discussed with the Patient or Authorized Welding Machine Operator Thermit. The Patient or Authorized Welding Machine Operator Thermit has agreed to proceed with the sensitive examination. (Sensitive examination includes inspection and/or palpation of the breasts, pelvis, prostate and anorectal regions) Patient declined insurance consultant. IUI IUI Date: 01/02/24 Partner's Name: [...] Anyi Gant M.D. Reproductive Endocrinology and Infertility [facility] Work Phone: 01-02-2024 Procedure note WHI SARMAD IUI PROCEDURE NOTE Date: 01/02/2024 Primary Proceduralist: Uma Aguilera MD Consents and Labels Consent Signed: Informed Consent obtained and on the chart Labels Verified With Patient: Yes Indications: Nelli Carpenter, is a 33 year old female here today for intrauterine insemination. IUI # 2. Cycle Day: 15 Last menstrual period: 12/19/2023 Amma Protocol: UNIVERSAL PROTOCOL / SAFETY CHECKLIST Procedure [...] discussed with the Patient or Patient's Authorized Welding Machine Operator Thermit. As applicable, any other physician, advance practice provider, medical student, or other health professional student that will be observing or involved in the sensitive examination for educational or training purposes was discussed with the Patient or Authorized Welding Machine Operator Thermit. The Patient or Authorized Welding Machine Operator Thermit has agreed to proceed with the sensitive examination. (Sensitive examination includes inspection and/or palpation of the breasts, pelvis, prostate and anorectal regions) Patient declined insurance consultant. IUI IUI Date: 01/02/24 Partner's Name: [...] Endocrinology and Infertility documented in this encounter [facility] 01-02-2024 Note HNO ID: [id number] Author: FLAVIA ELIZONDO, ? Service: ? Author Type: Special Services Director Type: Progress Notes Filed: 01/02/2024 11:46 Note Text: IUI specimen released to provider Flavia Elizondo January 02, 2024 11:23 AM [facility] 12-28-2023 History of Presen t illness [...] to monitor weight documented in this encounter [facility] 12-05-2023 Note HNO ID: [id number] Author: STEPHANIE LARA, ? Service: ? Author Type: ? Type: Progress Notes Filed: 12/06/2023 08:45 Note Text: IUI Xytex #[id number] Frozen washed specimen Post: 145 Million/mL, 68% Insem #: 49 Million [facility] 12-05-2023 History of Presen t illness Narrative IUI Xytex #[id number] Frozen washed specimen Post: 145 Million/mL, 68% Insem #: 49 Million IUI specimen released to provider Stephanie Lara December 05, 2023 10:19 AM documented in this encounter [facility] 12-05-2023 Note HNO ID: [id number] Author: MYRIAM DOMINGUEZ MD Service: ? Author [...] Cycle Day: 15 Last menstrual period: 11/21/2023 Amma Protocol: UNIVERSAL PROTOCOL / SAFETY CHECKLIST Procedure [...] EMERGENT procedures): No specimen collected. Patient declined insurance consultant. Uma Aguilera MD IUI IUI Date: [...] after wash): 49 million Donor ID #: [id number] Cycle reviewed, all questions answered. Pt instructed to take a test in 17 days if no menses and call with results. SIGNATURE: Uma Aguilera MD PATIENT NAME: Nelli Carpenter DATE: December 05, 2023 TIME: 10:31 AM I was present and immediately available for the entire procedure. Patient underwent an intrauterine insemination. Myriam Dominguez MD, TRUDY [facility] 12-05-2023 Procedure note WHI SARMAD IUI PROCEDURE NOTE Date: 12/05/2023 Primary Proceduralist: Uma Aguilera MD Consents and Labels Consent Signed: Informed Consent obtained and on the chart Labels Verified With Patient: Yes Indications: Nelli Carpenter, is a 33 year old female here today for intrauterine insemination. IUI # 1. Cycle Day: 15 Last menstrual period: 11/21/2023 Amma Protocol: UNIVERSAL PROTOCOL / SAFETY CHECKLIST Procedure [...] EMERGENT procedures): No specimen collected. Patient declined insurance consultant. Uma Aguilera MD IUI IUI Date: [...] after wash): 49 million Donor ID #: [id number] Cycle reviewed, all questions answered. Pt instructed to take a test in 17 days if no menses and call with results. SIGNATURE: Uma Aguilera MD PATIENT NAME: Nelli Carpenter DATE: December 05, 2023 TIME: 10:31 AM I was present and immediately available for the entire procedure. Patient underwent an intrauterine insemination. Myriam Dominguez MD, TRUDY [facility] Work Phone: 12-05-2023 Procedure note WHI SARMAD IUI PROCEDURE NOTE Date: 12/05/2023 Primary Proceduralist: Uma Aguilera MD Consents and Labels Consent Signed: Informed Consent obtained and on the chart Labels Verified With Patient: Yes Indications: Nelli Carpenter, is a 33 year old female here today for intrauterine insemination. IUI # 1. Cycle Day: 15 Last menstrual period: 11/21/2023 Amma Protocol: UNIVERSAL PROTOCOL / SAFETY CHECKLIST Procedure [...] EMERGENT procedures): No specimen collected. Patient declined insurance consultant. Uma Aguilera MD IUI IUI Date: [...] after wash): 49 million Donor ID #: [id number] Cycle reviewed, all questions answered. Pt instructed to take a test in 17 days if no menses and call with results. SIGNATURE: Uma Aguilera MD PATIENT NAME: Nelli Carpenter DATE: December 05, 2023 TIME: 10:31 AM I was present and immediately available for the entire procedure. Patient underwent an intrauterine insemination. Myriam Dominguez MD, TRUDY documented in this encounter [facility] 12-05-2023 History of Presen t illness Narrative Thaw for IUI Stephanie Lara documented in this encounter [facility] 12-05-2023 Note HNO ID: [id number] Author: GLENNY STEPHANIE, ? Service: ? Author Type: ? Type: Progress Notes Filed: 12/05/2023 10:23 Note Text: Thaw for IUI Stephanie Lara [facility] 12-05-2023 Note HNO ID: [id number] Author: STEPHANIE LARA, ? Service: ? Author Type: ? 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 Tubal Patency Testing: defer for now Sperm Source:Donor Frozen Treatment Protocol: Natural Cycle Monitoring Plan: OPKs Ovidrel Trigger: No Supplemental Progesterone: None Comments: None Andressa Abrhaam APRN.CNP 11/23/2023 documented in this encounter [facility] 11-23-2023 Instructions Andressa Abraham APRN.CNP [...] day of your period and let the commercial front load driver know you will be doing donor sperm [...] of your menstrual cycle to let the commercial front load driver know you will be testing and doing [...] please call the office to discuss. Location [address], [place] [address] Available every day, including weekends and holidays (except Lauren and New Years.) Weekday IUI scheduling The day you get your LH surge, please call [phone] between 8:00am - 12:00pm to schedule your insemination for the next day. If you call after 12pm, we may not be able to schedule your appointment. IUI s are done by appointment only. You will make 2 appointments - an arrival time and an IUI time. Donor sperm IUI is available at the following location: [place] [address] Available every day, including weekends and holidays (except [place] and New Years.) Available for IUI using fresh and frozen samples. Check in location for sperm wash and IUI: [address] The sperm wash takes 60-90 minutes. [...] want to do another IUI: Call the commercial front load driver to make sure you are financially cleared. Ask to speak to an NELLY to confirm your treatment plan. Important phone number: [phone] documented in this encounter [facility] 11-23-2023 Note HNO ID: [id number] Author: ANDRESSA ABRAHAM APRN.CNP Service: ? Author [...] visit. Either the patient or their legal human resources representative has been informed of the risks [...] factor Z31.81 N97.8 She is able to miner pick OPK every cycle, luteal phase is appropriate. Reviewed IUI scheduling and IUI procedure. Plan: natural cycle IUI-D timed with OPK. Sign IUI consent at earliest convenience. Andressa Abraham APRN.CNP November 23, 2023 9:09 AM I spent a total of 25 minutes on the date of the service which included preparing to see the patient, nhmc-mq-ksmp patient care, completing clinical documentation, obtaining and/or [...] grammatical and typographical errors missed in proofreading. [facility] 11-23-2023 History of Presen t illness [...] visit. Either the patient or their legal human resources representative has been informed of the risks [...] factor Z31.81 N97.8 She is able to miner pick OPK every cycle, luteal phase is appropriate. Reviewed IUI scheduling and IUI procedure. Plan: natural cycle IUI-D timed with OPK. Sign IUI consent at earliest convenience. Andressa Abraham APRN.UTILIZATION MANAGEMENT RN November 23, 2023 9:09 AM I spent a total of 25 minutes on the date of the service which included preparing to see the patient, zijp-bc-ddop patient care, completing clinical documentation, obtaining and/or [...] missed in proofreading. documented in this encounter [facility] 10-12-2023 Telephone encounter Note Called the patient she verified her name and date of patient is doing practice cycle Patient had peak on her opk 10-10-23 last period 09-27-23 Needs progesterone order I advised she goes in 6-8 days from positive opk not on fertility meds Laura Roque RN October 12, 2023 12:54 PM [facility] 10-12-2023 Miscellaneous Notes Called the [...] up with Wanda. documented in this encounter [facility] 10-12-2023 Telephone encounter Note Partner Wanda calling re +ov need to schedule progesterone test for Nelli when to have it done. Please follow up with Wanda. [facility] Work Phone: 09-11-2023 Instructions Andressa [...] sample yourself and arranging for shipment to [facility]. Sperm Bank [employer] [place] [facility]perm [facility] [employer] [facility] [place] Let us [...] (with a backup), please send me a [employer] message titled Sperm Donor Choice. Include the [...] sperm already in the office. Mailing address: Chris: Flavia Elizondo [id number] [address] [facility], [address] [place] [address] Storage at the [facility] is available. Fees are yearly and only start once you are not actively trying. Please ask the financial team ([phone]) for current cost information. Insurance Authorization/Financial Clearance [...] day of your period and let the commercial front load driver know you will be doing donor sperm insemination. The financial office will contact you to collect payment early in your cycle. You will not be able to schedule an IUI unless you have made payment. We want to help make your experience as smooth as possible. Please do not hesitate to call if you should have any questions. Contact documented in this encounter [facility] 09-11-2023 Note HNO ID: [id number] Author: ANDRESSA ABRAHAM APRN.CNP Service: ? Author [...] favorite donors - send to me via [employer] to confirm Confirmed best vial type to order: IUI/prewashed Will need to follow up to firm up treatment plan and review IUI scheduling instructions. Andressa Abraham APRN.UTILIZATION MANAGEMENT RN September 11, 2023 8:08 AM I spent a total of 50 minutes on the date of the service which included preparing to see the patient, ondp-dz-tygk patient care, completing clinical documentation, obtaining and/or [...] may be gramma (more content not included)... [facility] 09-11-2023 History of Presen t illness [...] Test results - donor labs/Myriad: Latest Ref Rn 07/28/2023 ABO O Rh(D) Positive Antibody Screen [...] favorite donors - send to me via [employer] to confirm Confirmed best vial type to order: IUI/prewashed Will need to follow up to firm up treatment plan and review IUI scheduling instructions. Andressa Abraham APRN.UTILIZATION MANAGEMENT RN September 11, 2023 8:08 AM I spent a total of 50 minutes on the date of the service which included preparing to see the patient, ugkt-bf-jhxz patient care, completing clinical documentation, obtaining and/or [...] missed in proofreading. documented in this encounter [facility] 07-28-2023 Telephone encounter Note Sheyla labs [...] follow up once checklist is complete. sent [employer] message. Andressa Abraham APRN.CNP July 28, 2023 12:27 PM [facility] 07-28-2023 Miscellaneous Notes [facility] labs are in process partner Wanda Carpenter, [...] follow up once checklist is complete. sent [employer]t message. Andressa Abraham APRN.CNP July 28, 2023 12:27 PM Please follow up with patient completed bloodwork today, next steps after labwork. documented in this encounter [facility] 07-28-2023 Telephone encounter Note Please follow up with patient completed bloodwork today, next steps after labwork. [facility] Work Phone: 06-15-2023 History of [...] visit. Either the patient or their legal human resources representative has been informed of the risks [...] which included preparing to see the patient, iwpo-pk-asgm patient care, completing clinical documentation, obtaining and/or [...] missed in proofreading. documented in this encounter [facility] 06-08-2023 Instructions Rahul Zheng MD - 06/08/2023 10:26 AM EDT Images from the original note were not included. Obstetrics and Gynecology [facility] Intrauterine Insemination Scheduling Instructions Please [...] you get your LH surge, please call [phone] between 8:00am - 12:00pm to schedule your insemination for the next day. If you call after 12pm, we may not be able to schedule your appointment. IUI s are done by appointment only. You will make 2 appointments - one for sperm drop off/collection, and one for the insemination. If you are using a frozen sample, please tell the contracting analyst this. You will get an arrival time and an IUI time. IUI is available at the following locations: [place]: [id number] , [place] [address] Weekday availability is limited depending on staffing. Not available on weekends. Not available for those with frozen sperm. Check in location for sperm wash and IUI: 2nd floor, room 208. The sperm wash takes 60-90 minutes. [place]: [id number] [facility], [place] [address] Weekday availability is limited depending on staffing. Not available on weekends. Not available for those with frozen sperm. Check in location for sperm wash: the 2nd floor Urology/Andrology. The sperm wash takes 60-90 minutes. They will tell you what time to miner pick the sample. Check in location for IUI: 3rd floor OB Specialties Desk. (You will have to miner pick the sample from 2nd floor Urology and bring it with you.) [place]: [id number] [address], [address], [place] [address] Available every day, including weekends and holidays (except [place] and New Years.) Available for IUI using [...] want to do another IUI: Call the commercial front load driver to make sure you are financially cleared. Ask to speak to an NELLY to confirm your treatment plan. Important phone number: [phone] documented in this encounter [facility] 06-08-2023 History of Presen t [...] visit. Either the patient or their legal human resources representative has been informed of the risks [...] been prescribed Wegovy. She is a non-smoker. 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 documented in this encounter [facility] 03-16-2023 Hospital Discharg e instructions Patient Education 03/16/2023 16:12:49 Wrist Pain, Adult, Hrow-gf-Dhxe Wrist Pain, Adult There are many things [...] to any changes in your symptoms. Take nsnz-tru-vfobeiu and prescription medicines only as told by [...] provider. Document Revised: 02/02/2020 Document Reviewed: 02/02/2020 [employer] Patient Education 2022 [employer]. [facility] Evaluation + Plan note No data available for this section [facility] Evaluation note Diagnosis Procreative management counseling- Primary Other procreative management counseling and advice BMI 34.0-34.9,adult Body Mass Index 34.0-34.9, adult [facility] Encounter for fertility planning- Primary Other specified procreative management Encounter for other genetic testing of female for procreative management [facility] Diagnosis Treatment plan provided- Primary [facility] Diagnosis Encounter for fertility planning- Primary Other specified procreative management [facility] Diagnosis Procreation management investigation and testing- Primary Other investigation and testing for procreative management [facility]* Diagnosis Female infertility- Primary Female infertility of unspecified origin [facility] Diagnosis Reproductive mgmt, infertility due to male factor- Primary Female infertility of other specified origin [facility] Diagnosis Procreative management- Primary Unspecified procreative management [facility] Diagnosis Female infertility- Primary Female infertility of unspecified origin [facility] Diagnosis Encounter for artificial insemination- Primary Artificial insemination [facility]* Diagnosis Encounter for test, result positive- Primary examination or test, positive result [facility] Diagnosis resulting from assisted reproductive technology in first trimester- Primary [facility] Diagnosis resulting from assisted reproductive technology in first trimester [facility] Diagnosis Treatment plan provided- Primary [facility] Diagnosis Missed menses , unspecified gestational age Encounter for supervision of normal first in first trimester documented in this encounter [facility]* Diagnosis Infertility, female- Primary BMI 37.0-37.9, adult Morbid obesity ([facility]) Morbid obesity documented in this encounter [facility]* Diagnosis Well woman exam with routine gynecological exam Routine gynecological examination Screening, , for anatomic survey Encounter for anatomic survey Vaginal discharge Leukorrhea, not specified as infective STD exposure Second trimester state, incidental 16 weeks gestation of Mass of right breast, unspecified quadrant Neoplasm of unspecified behavior of breast Other acne documented in this encounter [facility]* Diagnosis Encounter for anatomic survey- Primary [facility] Diagnosis Encounter for anatomic survey- Primary Obesity affecting in second trimester, unspecified obesity type Class 1 obesity without serious comorbidity with body mass index (BMI) of 34.0 to 34.9 in adult, unspecified obesity type 23 weeks gestation of state, incidental [facility] Diagnosis Second trimester state, incidental 26 weeks gestation of Diabetes mellitus screening Screening for diabetes mellitus size inconsistent with dates documented in this encounter [facility] [...] encounter [facility]* Diagnosis 36 weeks gestation of Third trimester state, incidental documented in this encounter [facility]* Diagnosis Third trimester state, incidental 37 weeks gestation of documented in this encounter [facility] Discharge instructions No data available for this section [facility] No data available for this section [facility] Reason for referral (narrative)* Diagnostic Procedure Only (Routine) - Open Specialty Diagnoses / Procedures Referred By Jose L alcocer Referred To Contact [facility] Diagnoses resulting from assisted reproductive technology in first trimester Procedures OBSTETRIC ULTRASOUND WHI US PREG UTERUS AFTER 1ST TRIMEST GESTATION Andress[place] [id number] [phone] [place] [phone] [place] [phone] Referral ID Status Reason Start Date Expiration Date V isits Requested Visits Authorized [id number] Open Auto-Generate d Referral 01/20/2024 01/19/2025 1 1 [facility] for visit Narrative* Diagnostic Procedure Only (Routine) - Closed Specialty Diagnoses / Procedures Referred By Jose L alcocer Referred To Contact [facility] Diagnoses resulting from assisted reproductive technology in first trimester Procedures OBSTETRIC ULTRASOUND WHI US PREG UTERUS AFTER 1ST TRIMEST GESTATION Andress[place] [address], [place] [address] [place] [phone] [place] [phone] Referral ID Status Reason Start Date Expiration Date V isits Requested Visits Authorized [id number] Closed Auto-Generate d Referral 01/27/2024 03/29/2024 1 1 [facility] for visit Narrative* Diagnostic Procedure Only (Routine) - Closed Specialty Diagnoses / Procedures Referred By Jose L t Referred To Contact [facility] Diagnoses Encounter for anatomic survey Procedures OBSTETRIC ULTRASOUND WHI US PREG UTERUS AFTER 1ST TRIMEST GESTATION Tristan Gloria APRN.UTILIZATION MANAGEMENT RN [address] [facility] [place] [address] Phone: tel: fax: [facility] [address] [place] [address] Referral ID Status Reason Start Date Expiration Date V isits Requested Visits Authorized [id number] Closed Auto-Generate d Referral 05/30/2024 03/29/2025 1 1 [facility] Summary Purpose Family History No [...] Obstetrics and Gynecology Diagnoses Infertility, female Procedures [place] OFFICE/OUTPATIENT NEW HIGH MDM 60 MINUTES Karen Bolanos MD [address] [place] [address] Patsy Blanco, DO [address] [facility] [address] [place] [address] Referral ID Status Reason Start Date Expiration Date Visits Requested Visits Authorized [id number] Pending Review Specialty Services Required 12/28/2023 06/25/2024 1 1 Additional Source Comments INFORMATION SOURCE (unrecogn ized section and content) DATE CREATED AUTHOR 09/21/2017 [facility] DATE CREATED AUTHOR AUTHOR'S ORGANIZ ATION 03/12/2021 [facility] DATE CREATED AUTHOR AUTHOR'S ORGANIZ ATION 03/16/2021 [facility] DATE CREATED AUTHOR AUTHOR'S ORGANIZ ATION 03/26/2022 [facility] DATE CREATED AUTHOR AUTHOR'S ORGANIZ ATION 02/29/2024 [facility] DATE CREATED AUTHOR AUTHOR'S ORGANIZ ATION 08/06/2024 [facility] DATE CREATED AUTHOR AUTHOR'S ORGANIZ ATION 09/10/2024 [facility] Special[facility] EPIC <item> Privacy Markings (unrecogniz ed section and content) Section Author: Smita Tello PROHIBITION ON REDISCLOSURE OF CONFIDENTIAL INFORMATION This notice accompanies a disclosure of information concerning a client made to you with the consent of such client. Patient Care team informatio n (unrecognized section and content) Choreography Director Relationship Specialty Start Date End Date Karen Bolanos MD [address] [place] [address] PCP - General Family Medicine 11/10/22 Karen Bolanos MD [address] [place] [address] PCP - [place] [employer] 12/28/22 Choreography Director Relationship Specialty Start Date End Date Karen Bolanos MD [address] [place] [address] PCP - General Family Medicine 11/10/22 Karen Bolanos MD [address] [place] [address] PCP - [place] [employer] 12/28/22 Choreography Director Relationship Specialty Start Date End Date Karen Bolanos MD [address] [place] [address] PCP - General Family Medicine 11/10/22 Choreography Director Relationship Specialty Start Date End Date Karen Bolanos MD [address] [place] [address] PCP - General Family Medicine 11/10/22 Choreography Director Relationship Specialty Start Date End Date Karen Bolanos MD [address] [place] [address] PCP - General Family Medicine 11/10/22 Karen Bolanos MD [address] [place] [address] PCP - [facility] 12/28/22 Choreography Director Relationship Specialty Start Date End Date Karen Bolanos MD [address] [place] [address] PCP - General Family Medicine 11/10/22 Choreography Director Relationship Specialty Start Date End Date Karen Bolanos MD [address] [place] [address] PCP - General [facility] Medicine 11/10/22 Choreography Director Relationship Specialty Start Date End Date Karen Bolanos MD [address] [place] [address] PCP - General [facility] Medicine 11/10/22 Choreography Director Relationship Specialty Start Date End Date Karen Bolanos MD [address] [place] [address] PCP - General [facility] Medicine 11/10/22 Choreography Director Relationship Specialty Start Date End Date Karen Bolanos MD [address] [place] [address] PCP - General [facility] Medicine 11/10/22 Choreography Director Relationship Specialty Start Date End Date Karen Bolanos MD [address] [place] [address] PCP - General Family Medicine 11/10/22 Choreography Director Relationship Specialty Start Date End Date Karen Bolaons MD [address] [place] [address] PCP - General Family Medicine 11/10/22 Choreography Director Relationship Specialty Start Date End Date Karen Bolanos MD [address] [place] [address] PCP - General Family Medicine 11/10/22 Choreography Director Relationship Specialty Start Date End Date Karen Bolanos MD [address] [place] [address] PCP - General Family Medicine 11/10/22 Choreography Director Relationship Specialty Start Date End Date Karen Bolanos MD [address] [place] [address] PCP - General Family Medicine 11/10/22 Choreography Director Relationship Specialty Start Date End Date Karen Bolanos MD [address] [place] [address] PCP - General Family Medicine 11/10/22 Choreography Director Relationship Specialty Start Date End Date Karen Bolanos MD [address] [place] [address] PCP - General Family Medicine 11/10/22 Choreography Director Relationship Specialty Start Date End Date Karen Bolanos MD [address] [place] [address] PCP - General Family Medicine 11/10/22 Source Comments (unrecognize d section and content) In the event this informatio n is protected by the Federal Confidentiality of Alcohol and Drug Abuse Patient Records regulations: The Federal rules restrict any use of the information to criminally investigate or prosecute any alcohol or drug abuse patient.[facility] event this information is protected by the Federal Confidentiality of Alcohol and Drug Abuse Patient Records regulations: The Federal rules restrict any use of the information to criminally investigate or prosecute any alcohol or drug abuse patient.[facility] the event this information is protected by the Federal Confidentiality of Alcohol and Drug Abuse Patient Records regulations: The Federal rules restrict any use of the information to criminally investigate or prosecute any alcohol or drug abuse patient.[facility] the event this information is protected by the Federal Confidentiality of Alcohol and Drug Abuse Patient Records regulations: The Federal rules restrict any use of the information to criminally investigate or prosecute any alcohol or drug abuse patient.[facility] the event this information is protected by the Federal Confidentiality of Alcohol and Drug Abuse Patient Records regulations: The Federal rules restrict any use of the information to criminally investigate or prosecute any alcohol or drug abuse patient.[facility] the event this information is protected by the Federal Confidentiality of Alcohol and Drug Abuse Patient Records regulations: The Federal rules restrict any use of the information to criminally investigate or prosecute any alcohol or drug abuse patient.[facility] the event this information is protected by the Federal Confidentiality of Alcohol and Drug Abuse Patient Records regulations: The Federal rules restrict any use of the information to criminally investigate or prosecute any alcohol or drug abuse patient.[facility] the event this information is protected by the Federal Confidentiality of Alcohol and Drug Abuse Patient Records regulations: The Federal rules restrict any use of the information to criminally investigate or prosecute any alcohol or drug abuse patient.[facility] the event this information is protected by the Federal Confidentiality of Alcohol and Drug Abuse Patient Records regulations: The Federal rules restrict any use of the information to criminally investigate or prosecute any alcohol or drug abuse patient.[facility] the event this information is protected by the Federal Confidentiality of Alcohol and Drug Abuse Patient Records regulations: The Federal rules restrict any use of the information to criminally investigate or prosecute any alcohol or drug abuse patient.[facility] the event this information is protected by the Federal Confidentiality of Alcohol and Drug Abuse Patient Records regulations: The Federal rules restrict any use of the information to criminally investigate or prosecute any alcohol or drug abuse patient.[facility] the event this information is protected by the Federal Confidentiality of Alcohol and Drug Abuse Patient Records regulations: The Federal rules restrict any use of the information to criminally investigate or prosecute any alcohol or drug abuse patient.[facility] the event this information is protected by the Federal Confidentiality of Alcohol and Drug Abuse Patient Records regulations: The Federal rules restrict any use of the information to criminally investigate or prosecute any alcohol or drug abuse patient.[facility] the event this information is protected by the Federal Confidentiality of Alcohol and Drug Abuse Patient Records regulations: The Federal rules restrict any use of the information to criminally investigate or prosecute any alcohol or drug abuse patient.[facility] the event this information is protected by the Federal Confidentiality of Alcohol and Drug Abuse Patient Records regulations: The Federal rules restrict any use of the information to criminally investigate or prosecute any alcohol or drug abuse patient.[facility] the event this information is protected by the Federal Confidentiality of Alcohol and Drug Abuse Patient Records regulations: The Federal rules restrict any use of the information to criminally investigate or prosecute any alcohol or drug abuse patient.[facility] the event this information is protected by the Federal Confidentiality of Alcohol and Drug Abuse Patient Records regulations: The Federal rules restrict any use of the information to criminally investigate or prosecute any alcohol or drug abuse patient.[facility] the event this information is protected by the Federal Confidentiality of Alcohol and Drug Abuse Patient Records regulations: The Federal rules restrict any use of the information to criminally investigate or prosecute any alcohol or drug abuse patient.[facility] the event this information is protected by the Federal Confidentiality of Alcohol and Drug Abuse Patient Records regulations: The Federal rules restrict any use of the information to criminally investigate or prosecute any alcohol or drug abuse patient.[facility] the event this information is protected by the Federal Confidentiality of Alcohol and Drug Abuse Patient Records regulations: The Federal rules restrict any use of the information to criminally investigate or prosecute any alcohol or drug abuse patient.[facility] Reason for Visit (unrecogniz ed [...] EACH ALIQUOT ARTIFIC INSEMINATION INTRAUTERIN Andressa Abraham, RESTAURANT GENERAL MANA[place] [address] [place] [address] [facility] [address] [place] [address] Referral ID Status Reason Start Date Expiration Date V isits Requested Visits Authorized [id number] Closed Financial Clearance Required - Self Pay Patient Cleared - True Self-Pay required payment collected Do Not Bill Insurance - SP patient 12/04/2023 03/03/2024 2 2 Specialty Diagnoses / Procedures Referred By Joes L alcocer Referred To Contact [facility] Diagnoses Encounter for other procreative management Encounter for procreative management, unspecified Procedures ARTIFIC INSEMINATION INTRAUTERIN THAWING CRYOPRESERVED SPERM/SEMEN EACH ALIQUOT Andressa Abraham, RESTAURANT GENERAL MANAGER[place] [address] [place], [place] [id number] [facility] [address] [place] [phone] Referral ID Status Reason Start Date Expiration Date V isits Requested Visits Authorized [id number] Closed Patient Cleared - True Self-Pay required payment collected 12/30/2023 03/29/2024 2 2 Reason Comments +hpt 10/19 after an iui Reason Comments Reason Comments [...] BE BASED ON THE PRIMARY CLINICAL RECORDS. [facility]. provides no warranty or guarantee of the accuracy or completeness of information in this document.
--- NOTE | 2024-09-10 13:41 | US_ITS ---
[address] [address] Patient Name: EDUAR CARPENTER MRN: [id number] date: 1990 Sex: F Assigned Patient Location: [facility] Current Patient Location: [facility] Accession/Order Number: [id number] Exam Date: 09/10/2024 14:12 Report Date: 09/10/2024 14:18 At the request of: NINA ALONSO DO Procedure: US OB BPP w non-stress Ultrasound biophysical profile HISTORY: Gestational diabetes Adequate breathing movement, gross body movement, tone and amniotic fluid volume for total score of 8 out of 8. The amniotic fluid index is 17.2cm within normal limits. The heart rate 132 bpm. US/US OB BPP w non-stress IMPRESSION: Adequate ultrasound biophysical profile Impression dictated by: Deepak Nava M.D. 09/10/2024 2:18 PM Dictation Location: [place] [address] Electronically authenticated by: [id number] Y Date: 09/10/2024 14:18
[2024-09-10 14:06] VITALS: BP 115/70; PULSE 96
== END 2024-09-10 14:30 | disposition home or self-care (01) ==
LOC: US 13:34 → FBC 13:37
PROVIDERS: PCP Student in an Organized Health Care Education/Training Program; Visit Provider Obstetrics & Gynecology
DX: O24.419 Gestational diabetes mellitus in pregnancy, unspecified control (principal)
CPT/HCPCS: 76818

== ENCOUNTER 2024-09-12 05:12 | Inpatient (IN) | payer BC, SELFPAY ==
[2024-09-12] VITALS (31 sets, daily range): BP systolic 80–135; BP diastolic 44–94; PULSE 60–100; TEMP 35.7–37.1; O2SAT 91–99
--- OUTSIDE RECORDS SUMMARY | 2024-09-12 05:16 | XMS_ITS | CCD ---
Author Organization [facility] Care Team Providers Care Customer Success Manager Name Role Phone BACEVICE, CHARLIE E Unavailable [...] Refills(s) 0, Pharmacy: [facility] #[id number], 158, cm, 02/28/24 9:01:00 EST, Height/Length Dosing, [...] once d aily. Blood Glucose Monitoring Suppl (D-O2 [place] Glucometer) w/Device kit (14 sources) Start: 07-12-2024 [...] oral solution (1 source) alpha-Adrenergic Agonist, Uncompetitive H-wmeequ-I-aspartate Receptor Antagonist, Sigma-1 Agonist Start: 03-11-2021 End: 03-20-2021 take 5 mL by mouth every four to six hours brompheniramine/pseudoephedrine/dextrome thorphan 3kt-[id number]-88nd/5 mL oral syrup ; 5 milliliter(s) orally [...] omeprazole 20 mg delayed release oral capsule (11 sources) Proton Pump Inhibitor Start: 08-24-19 25 End: 09-24-19 25 take 1 capsule by mouth before mealtime omeprazole (PriLOSEC) [address] capsule Indications: Gastroesophageal Reflux Disease , Heartburn Take 1 capsule (20 mg) by mouth in the morning. Take before meals. Do not crush or chew. 30 capsule 3 08/24/2024 09/23/2024 Active MV-Min-Fe Fum-FA-DHA ( 1 PO) (6 sources) MV-Min- Fe Fum-FA-DHA ( 1 PO) [...] 0 Start Date: 05/29/12 Status: Ordered levonorgestrel 0.738526 mg/hr intrauterine system (14 sources) Progestin, Progestin-containi [...] Facility US OB BPP W NON-STRESS on 09-10-2024 [place] [address] Ultrasound Report Signed Patient: NELLI CARPENTER MR#: [id number] : 1990 Acct:[id number] Age/Sex: 34 / F ADM Date: 09/10/24 Loc: [facility] 250-[address]: Andrea Prieto D.O. Ordering Physician: Andrea Prieto D.O. Date of Service: 09/10/24 Procedure(s): US OB BPP w non-stress Accession Number(s): [id number] cc: Andrea Prieto D.O.; NORBERTO BOLANOS [place] [address] Patient Name: NELLI CARPENTER MRN: [facility]:[id number] date: 1990 Sex: F Assigned Patient Location: [facility] Current Patient Location: [facility] Accession/Order Number: [id number] Exam Date: 09/10/2024 14:12 Report Date: 09/10/2024 14:18 At the request of: ANDREA PRIETO DO Procedure: US OB BPP w non-stress Ultrasound biophysical profile HISTORY: Gestational diabetes Adequate breathing movement, gross body movement, tone and amniotic fluid volume for total score of 8 out of 8. The amniotic fluid index is 17.2cm within normal limits. The heart rate 132 bpm. US/US OB BPP w non-stress IMPRESSION: Adequate ultrasound biophysical profile Impression dictated by: Deepak Nava M.D. 09/10/2024 2:18 PM Dictation Location: [place] [address] Electronically authenticated by: [id number] Y Date: 09/10/2024 14:18 Dictated By: Deepak Nava D.O. Signed By: 09/10/24 1420 DD/ 1418 TD/TT: Medical Transcription: [facility] RadiologyTaiogsharla summers MD - 09/10/2024 [place] [address] Ultrasound Report Signed Patient: NELLI CARPENTER MR#: [id number] : 1990 Acct:[id number] Age/Sex: 34 / F ADM Date: 09/10/24 Loc: [place] [address]- Attending Dr: Andrea Prieto D.O. Ordering Physician: Andrea Prieto D.O. Date of Service: 09/10/24 Procedure(s): US OB BPP w non-stress Accession Number(s): [id number] cc: Andrea Prieto D.O.; NORBERTO BOLANOS [place] [address] Patient Name: NELLI CARPENTER MRN: [facility]:[id number] date: 1990 Sex: F Assigned Patient Location: [facility] Current Patient Location: [facility] Accession/Order Number: [id number] Exam Date: 09/10/2024 14:12 Report Date: 09/10/2024 14:18 At the request of: ANDREA PRIETO DO Procedure: US OB BPP w non-stress Ultrasound biophysical profile HISTORY: Gestational diabetes Adequate breathing movement, gross body movement, tone and amniotic fluid volume for total score of 8 out of 8. The amniotic fluid index is 17.2cm within normal limits. The heart rate 132 bpm. US/US OB BPP w non-stress IMPRESSION: Adequate ultrasound biophysical profile Impression dictated by: Deepak Nava M.D. 09/10/2024 2:18 PM Dictation Location: [place] [address] Electronically authenticated by: [id number] Y Date: 09/10/2024 14:18 Dictated By: Deepak Nava D.O. Signed By: 09/10/24 1420 DD/ 17 TD/TT: Medical Transcription: [facility] Radiology Study observation (narrative) [facility] US OB BPP W NON-STRESS Ordered By: Radiologist Radiology on 09-10-2024 [facility] Work Phone: Urinalysis macro (dipstick) panel (U)on 09-07-2024 Bilirubin, UA Negative Negative - 4(70) +++ mg/dL [facility] Blood, UA Negative Negative - 50 Mukesh/mcL [facility] Clarity, UA Clear [facility] Color, UA Yellow [facility] Glucose, UA Negative Negative - 2000(110) ++++ mg/dL [facility] Interpretation and review of laboratory results Normal [facility] Ketones, UA Negative Negative - 160(16) ++++ mg/dL [facility] Leukocytes, UA Negative Negative - 500+++ Shannon/mcL [facility] Nitrite, UA Negative Negative - Positive [facility] pH, UA 7 5 - 9 [facility] Protein, UA Negative Negative - 2000(20) ++++ mg/dL [facility] Spec Grav, UA 1.02 1 - 1.03 [facility] Urobilinogen, UA 0.2 0.2 - 12 mg/dL [facility] BPP W NON-STRESS on 09-04-2024 [place] [address] Ultrasound Report Signed Patient: NELLI CARPENTER MR#: [id number] : 1990 Acct:[id number] Age/Sex: 34 / F ADM Date: 09/03/24 Loc: Attending Dr: nAdrea Prieto D.O. Ordering Physician: Andrea Prieto D.O. Date of Service: 09/03/24 Procedure(s): US OB BPP w non-stress Accession Number(s): [id number] cc: Andrea Prieto D.O.; NORBERTO BOLANOS [place] [id number] Patient Name: NELLI CARPENTER MRN: [facility]:[id number] date: 1990 Sex: F Assigned Patient Location: [facility] Current Patient Location: Accession/Order Number: [id number] Exam Date: 09/04/2024 09:38 Report Date: 09/04/2024 [...] Nava M.D. 09/04/2024 9:38 AM Dictation Location: [employer] Electronically authenticated by: [id number] Y Date: 09/04/2024 09:38 Dictated By: Deepak Nava D.O. Signed By: 09/04/24940 DD/ 7 TD/TT: Medical Transcription: [facility] Radiology, Radiologi MD melina - 09/04/2024 [place] [address] Ultrasound Report Signed Patient: NELLI CARPENTER MR#: [id number] : 1990 Acct:[id number] Age/Sex: 34 / F ADM Date: 09/03/24 Loc: US Attending Dr: Andrea Prieto D.O. Ordering Physician: Andrea Prieto D.O. Date of Service: 09/03/24 Procedure(s): US OB BPP w non-stress Accession Number(s): [id number] cc: Andrea Prieto D.O.; NORBERTO BOLANOS [place] [address] Patient Name: NELLI CARPENTER MRN: [facility]:[id number] date: 1990 Sex: F Assigned Patient Location: [facility] Current Patient Location: Accession/Order Number: [id number] Exam Date: 09/04/2024 09:38 Report Date: 09/04/2024 [...] Nava M.D. 09/04/2024 9:38 AM Dictation Location: [employer] Electronically authenticated by: [id number] Y Date: 09/04/2024 09:38 Dictated By: Deepak Nava D.O. Signed By: 09/04/2441 DD/ 7 TD/TT: Medical Transcription: [facility] Radiology Study observation (narrative) [facility] US OB BPP W NON-STRESS Ordered By: Radiologist Radiology on 09-04-2024 [facility] Work Phone: Urinalysis macro (dipstick) panel (U)on 08-31-2024 Bilirubin, UA Negative Negative - 4(70) +++ mg/dL [facility] Blood, UA Negative Negative - 50 Mukesh/mcL [facility] Clarity, UA Cloudy [facility] Color, UA Dark Shereen [facility] Glucose, UA Negative Negative - 2000(110) ++++ mg/dL [facility] Interpretation and review of laboratory results Abnormal [facility] Ketones, UA Negative Negative - 160(16) ++++ mg/dL [facility] Leukocytes, UA Negative Negative - 500+++ Shannon/mcL [facility] Nitrite, UA Negative Negative - Positive [facility] pH, UA 6.5 5 - 9 [facility] Protein, UA Positive Negative - 2000(20) ++++ mg/dL [facility] Comment on above: 30 Spec Grav, UA 1.025 1 - 1.03 [facility] Urobilinogen, UA 1.0 0.2 - 12 mg/dL [facility] US OB BPP W NON-STRESS on 08-27-[address] [address] Ultrasound Report Signed Patient: NELLI CARPENTER MR#: [id number] : 1990 Acct:[id number] Age/Sex: 34 / F ADM Date: 08/27/24 Loc: [facility] 250-[address]: Andrea Prieto D.O. Ordering Physician: Andrea Prieto D.O. Date of Service: 08/27/24 Procedure(s): US OB BPP w non-stress Accession Number(s): [id number] cc: Andrea Prieto D.O.; NORBERTO BOLANOS [place] [address] Patient Name: NELLI CARPENTER MRN: [facility]:[id number] date: 1990 Sex: F Assigned Patient Location: [facility] Current Patient Location: [facility] Accession/Order Number: [id number] Exam Date: 08/27/2024 13:58 Report Date: 08/27/2024 [...] Nava M.D. 08/27/2024 2:00 PM Dictation Location: [place] [address] Electronically authenticated by: [id number] Y Date: 08/27/2024 14:00 Dictated By: Deepak Nava D.O. Signed By: 08/27/24 1402 DD/ 1400 TD/TT: Medical Transcription: [facility] Radiology, Radiologsharla summers MD - 08/27/2024 [place] [address] Ultrasound Report Signed Patient: NELLI CARPENTER MR#: [id number] : 1990 Acct:[id number] Age/Sex: 34 / F ADM Date: 08/27/24 Loc: [facility] 250-1 Attending : Andrea Prieto D.O. Ordering Physician: Andrea Prieto D.O. Date of Service: 08/27/24 Procedure(s): US OB BPP w non-stress Accession Number(s): [id number] cc: Andrea Prieto D.O.; NORBERTO BOLANOS [facility] [address] [address] Patient Name: NELLI CARPENTER MRN: [facility]:[id number] date: 1990 Sex: F Assigned Patient Location: [facility] Current Patient Location: [facility] Accession/Order Number: [id number] Exam Date: 08/27/2024 13:58 Report Date: 08/27/2024 [...] Nava M.D. 08/27/2024 2:00 PM Dictation Location: [place] [address] Electronically authenticated by: [id number] Y Date: 08/27/2024 14:00 Dictated By: Deepak Nava D.O. Signed By: 08/27/24 1402 DD/ 1400 TD/TT: Medical Transcription: [facility] Radiology Study observation (narrative) [facility] US OB BPP W NON-STRESS Ordered By: Radiologist Radiology on 08-27-2024 [facility] Work Phone: Urinalysis macro (dipstick) panel (U)on 08-23-2024 Bilirubin, UA Negative Negative - 4(70) +++ mg/dL [facility] Blood, UA Negative Negative - 50 Mukesh/[facility]L [facility], [facility] Clear [facility] Color, UA Yellow [facility] Glucose, UA Negative Negative - 1999(110) ++++ mg/dL [facility] Interpretation and review of laboratory results Abnormal [facility] Ketones, UA Negative Negative - 160(16) ++++ mg/dL [facility] Leukocytes, UA Trace Negative - 500+++ Shannon/mcL [facility] Nitrite, UA Negative Negative - Positive [facility] pH, UA 7 5 - 9 [facility] Protein, UA Negative Negative - 1999(20) ++++ mg/dL [facility] Spec Grav, UA 1.015 1 - 1.03 [facility] Urobilinogen, UA 0.2 0.2 - 12 mg/dL [facility] US OB BPP W NON-STRESS on 08-14-2024 [place] [address] Ultrasound Report Signed Patient: NELLI CARPENTER MR#: [id number] : 1990 Acct:[id number] Age/Sex: 34 / F ADM Date: 08/13/24 Loc: US Attending Dr: Andrea Prieto D.O. Ordering Physician: Andrea Prieto D.O. Date of Service: 08/13/24 Procedure(s): US OB BPP w non-stress Accession Number(s): [id number] cc: Andrea Prieto D.O.; NORBERTO BOLANOS [place] [address] Patient Name: NELLI CARPENTER MRN: [facility]:[id number] date: 1990 Sex: F Assigned Patient Location: Current Patient Location: Accession/Order Number: [id number] Exam Date: 08/14/2024 08:54 Report Date: 08/14/2024 [...] Blake M.D. 08/14/2024 9:01 AM Dictation Location: [place] [address] Electronically authenticated by: [id number] Y Date: 08/14/2024 09:01 Dictated By: Gunnar Blake M.D. Signed By: 08/14/24903 DD/ 0 TD/TT: Medical Transcription: [facility] Radiology Radiologsharla summers MD - 08/14/2024 [place] [address] Ultrasound Report Signed Patient: NELLI CARPENTER MR#: [id number] : 1990 Acct:[id number] Age/Sex: 34 / F ADM Date: 08/13/24 Loc: US Attending Dr: Andrea Prieto D.O. Ordering Physician: Andrea Prieto D.O. Date of Service: 08/13/24 Procedure(s): US OB BPP w non-stress Accession Number(s): [id number] cc: Andrea Prieto D.O.; NORBERTO BOLANOS [place] [address] Patient Name: NELLI CARPENTER MRN: [facility]:[id number] date: 1990 Sex: F Assigned Patient Location: US Current Patient Location: Accession/Order Number: [id number] Exam Date: 08/14/2024 08:54 Report Date: 08/14/2024 [...] Blake M.D. 08/14/2024 9:01 AM Dictation Location: [employer] Electronically authenticated by: [id number] Y Date: 08/14/2024 09:01 Dictated By: Gunnar Blake M.D. Signed By: 08/14/24903 DD/ 0 TD/TT: Medical Transcription: [facility] Radiology Study observation (narrative) [facility] OB BPP W NON-STRESS Ordered By: Radiologist Radiology on 08-14-2024 [facility] Work Phone: US OB GROWTHon 08-14-2024 [place] [address] Ultrasound Report Signed Patient: NELLI CARPENTER MR#: [id number] : 1990 Acct:[id number] Age/Sex: 34 / F ADM Date: 08/13/24 Loc: US Attending Dr: Andrea Prieto D.O. Ordering Physician: Andrea Prieto D.O. Date of Service: 08/13/24 Procedure(s): US OB growth Accession Number(s): [id number] cc: Andrea Prieto D.O.; NORBERTO BOLANOS [place] [address] Patient Name: NELLI CARPENTER MRN: [id number]:[id number] date: 1990 Sex: F Assigned Patient Location: US Current Patient Location: Accession/Order Number: [id number] Exam Date: 08/14/2024 09:01 Report Date: 08/14/2024 [...] Blake M.D. 08/14/2024 9:06 AM Dictation Location: [place] [address] Electronically authenticated by: [id number] Y Date: 08/14/2024 09:06 Dictated By: Gunnar Blake M.D. Signed By: 08/14/24908 DD/ 5 TD/TT: Medical Transcription: [facility] Radiology, Radiologi MD melina - 08/14/2024 [place] [address] Ultrasound Report Signed Patient: NELLI CARPENTER MR#: [id number] : 1990 Acct:[id number] Age/Sex: 34 / F ADM Date: 08/13/24 Loc: US Attending Dr: Andrea Prieto D.O. Ordering Physician: Andrea Prieto D.O. Date of Service: 08/13/24 Procedure(s): US OB growth Accession Number(s): [id number] cc: Andrea Prieto D.O.; [place]IG[place] [id number] Patient Name: NELLI CARPENTER MRN: [facility]:[id number] date: 1990 Sex: F Assigned Patient Location: Current Patient Location: Accession/Order Number: [id number] Exam Date: 08/14/2024 09:01 Report Date: 08/14/2024 [...] Blake M.D. 08/14/2024 9:06 AM Dictation Location: [place] [address] Electronically authenticated by: [id number] Y Date: 08/14/2024 09:06 Dictated By: Gunnar Blake M.D. Signed By: 08/14/24908 DD/ 5 TD/TT: Medical Transcription: [facility] Radiology Study observation (narrative) [facility] US OB GROWTHOrdered By: Susan ologist Radiology on 08-14-2024 [facility] Work Phone: Urinalysis macro (dipstick) panel (U)on 08-08-2024 Bilirubin, UA Negative Negative - 4(70) +++ mg/dL [facility] Blood, UA Negative Negative - 50 Mukesh/mcL [facility] Clarity, UA Clear [facility] Color, UA Yellow [facility] Glucose, UA Negative Negative - 1999(110) ++++ mg/dL [facility] Interpretation and review of laboratory results Normal [facility] Ketones, UA Negative Negative - 160(16) ++++ mg/dL [facility] Leukocytes, UA Negative Negative - 500+++ Shannon/mcL [facility] Nitrite, UA Negative Negative - Positive [facility] pH, UA 7 5 - 9 [facility] Protein, UA Negative Negative - 1999(20) ++++ mg/dL [facility] Spec Grav, UA 1.02 1 - 1.03 [facility] Urobilinogen, UA 0.2 0.2 - 12 mg/dL [facility] Urinal[facility] macro (dipstick) panel (U)on 07-25-2024 Bilirubin, UA Negative Negative - 4(70) +++ mg/dL [facility] Blood, UA Negative Negative - 50 Mukesh/mcL [facility] Clarity, UA Clear [facility] Color, UA Yellow [facility] Glucose, UA Negative Negative - 1999(110) ++++ mg/dL [facility] Interpretation and review of laboratory results Abnormal [facility] Ketones, UA Negative Negative - 160(16) ++++ mg/dL [facility] Leukocytes, UA Negative Negative - 500+++ Shannon/mcL [facility] Nitrite, UA Negative Negative - Positive [facility] pH, UA 6.5 5 - 9 [facility] Protein, UA Negative Negative - 1999(20) ++++ mg/dL [facility] Spec Grav, UA 1.015 1 - 1.03 [facility] Urobilinogen, UA 1.0 0.2 - 12 mg/dL [id number] NELLI CARPENTER ([id number]) 1990 F Date Time Provider Department 07/20/24 HISTORICAL [id number] During your visit today, we recorded the following information about you: Jessy Lilly, BALJINDER 07/20/2024 1:19 PM Signed Received outside referral from Dr. Prieto for GDM consult due to elevated 1 hour glucose 202. Called pt. To schedule appointment no answer, left message with call back phone number. BALJINDER Zaman Laura Lee 07/25/2024 11:57 AM Signed Nelli Carpenter called today. Caller's (home) [phone] (cell) Reason for call: Pt calling nurse back to be scheduled for GDM consult due to elevated 1 hour glucose 202. Jessy Zamora RN 08/04/2024 3:24 PM Addendum Outside referral received from Dr. Prieto for elevated 1 hour glucose 202. Pt. Has all testing supplies and has been checking BS periodically. Advised pt. To start checking 4 times daily and upload to [employer]. Will send patient care assistant. Other med hx: asthma, placenta previa with previous OB History Gravida4 Para2 Term2 Preterm0 AB1 Living2 SAB1 IAB0 Ectopic0 Multiple0 Live Births2 2014- FT, vag MAB 2017- FT, c-sec placenta previa Current meds: PNV Last growth US 07/11, pt. Advised to schedule growth US every 4 weeks. Pt. Scheduled for SMA GDM class on 08/[address] Quintanilla. Jessy Lilly RN Records sent to medical records, and also available in [address]. Allergies As of Date: 07/20/2024 (No Known Allergies) Date Reviewed: 01/20/2024 Reviewed by: Andressa Abraham APRN.SUPERVISOR [employer] - Fully Assessed Prescriptions as of 08/04/2024 - vit/iron fum/folic ac ( 1 + 1 ORAL) Take by mouth. - mv-min/iron/folic/calci um/vitK (WOMEN'S MULTIVITAMIN ORAL) Take by mouth. Problem List As Of Date 07/20/2024 Noted Resolved Complete placenta previa with hemorrhage, third*12/09/2016 06/01/2024 Encounter Status:Closed by JESSY LILLY on 07/20/24 Normal [facility] ALL CBC WITH AUTO DIFFon BASOPHILS ABSOLUTE AUTO 0 [facility] Basophils/100 WBC (Bld) 0.2 % 0.2 - 2.0 % [facility] Eosinophils/100 WBC (Bld) 0.6 % Low 0.9 - 7.0 % [facility] Erythrocyte distribution width (RBC) [Ratio] 13.2 % 11.0 - 15.0 % [facility] Hematocrit (Bld) [Volume fraction] 34 % Low 36.0 - 48.0 % [facility] Hemoglobin (Bld) [Mass/Vol] 11.1 g/dL Low 12.0 - 16.0 g/dL [facility] IMMATURE GRANULOCYTES ABS AUTO 0.15 High [facility] Immature granulocytes/100 WBC (Bld) 1.9 % High 0.0 - 0.5 % [facility] Interpretation and review of laboratory results Abnormal [facility] LYMPHOCYTES ABSOLUTE AUTO 1.5 [facility] Lymphocytes/100 WBC (Bld) 18.9 % Low 20.5 - 60.0 % [facility] MCH (RBC) [Entitic mass] 28.6 pg 26.7 - 34.0 pg [facility] MCHC (RBC) [Mass/Vol] 32.6 g/dL 29.9 - 35.2 g/dL [facility] MCV (RBC) [Entitic vol] 87.6 fL 81.0 - 99.0 fL [facility] MONOCYTES ABSOLUTE AUTO 0.4 [facility] Monocytes/100 WBC (Bld) 5.3 % 1.7 - 12.0 % [facility] NEUTROPHILS ABSOLUTE AUTO 5.9 [facility] Neutrophils/100 WBC (Bld) 73.1 % 43.0 - 75.0 % [facility] Platelet mean volume (Bld) [Entitic vol] 10.9 fL 9.5 - 13.5 fL [facility] TBH EO # 0.1 [facility] TBH PLT 218 [facility] TB RBC 3.88 Low [facility] TB WBC 8.1 [facility] Urinalysis macro (dipstick) panel (U)on 06-27-2024 Bilirubin, UA Negative Negative - 4(70) +++ mg/dL [facility] Blood, UA Negative Negative - 50 Mukesh/mcL [facility] Clarity, UA Clear [facility] Color, UA Light Yellow [facility] Glucose, UA Negative Negative - 1999(110) ++++ mg/dL [facility] Interpretation and review of laboratory results Normal [facility] Ketones, UA Negative Negative - 160(16) ++++ mg/dL [facility] Leukocytes, UA Negative Negative - 500+++ Shannon/mcL [facility] Nitrite, UA Negative Negative - Positive [facility] Comment on above: ` pH, UA 6 5 - 9 [facility] Protein, UA Negative Negative - 1999(20) ++++ mg/dL [facility] Spec Grav, UA 1.025 1 - 1.03 [facility] Urobilinogen, UA 1.0 0.2 - 12 mg/dL [facility] US OB FOLLOW UP TRANSABDOMIN AL APPROACHon [...] II, MD, PHD at 11-Jul-2024 11:47:38 PM [facility] Normal Not Available Comment on above: [...] 6 oz EFW by: [employer] (HC-AC-FL) [employer] [facility] [employer] 4.7 mm CM 8.4 mm Nasal bone [...] normal LVOT view: normal 3-vessel view: normal 4-aealxj-hwmrpbh view: normal Heart / Thorax Situs: situs [...] Read By: Leonid Myers M.D. MATERNAL MEDICINE [facility] Radiology Study observation (narrative) [facility] US BREAST COMPLETE RIGHTo n 05-31-2024 [...] GDLNon AGE GDLN ACOG TESTING Note . [facility] Comment on above: TESTS RESULT FLAG UN ITS REF RANGE LAB Clinician Provided Cytology Information Source.............Cervix Other.............. No. of containers..01 ThinPrep Vial Age Algo ACOG Akua... - FLAG LEGEND: L-Low Normal,H-High Normal,LL-Alert Low,HH-Alert High <-Panic Low,>-Panic High,A-Abnormal,AA-Critical Abnormal Performed at: 01 =G [address] [address] Maribel Martin MD, HPV APTIMA Negative Negative [facility] Comment on above: This nucleic acid am plification test detects fourteen high- risk HPV types (16,18,31,33,35,39,45,51,52,56,58,59,66,68) without differentiation. Performed at: =G - [facility] [address] [id number] Drag Down: Maribel Martin MD, Phone: [phone] Performed at: WB - [facility] [id number] Drag Down: Maribel Martin MD, Phone: [phone] IGP, APTIMA HPV, RFX 16/18,45 Note . [facility] Comment on above: TESTS RESULT FLAG UN ITS REF RANGE LAB DIAGNOSIS: 02 NEGATIVE FOR INTRAEPITHELIAL LESION OR MALIGNANCY. Specimen adequacy: 02 Satisfactory for evaluation. No endocervical component is identified. An endocervical component is not commonly seen in the patient. Performed by: 02 Salud Hui Support Manager (ASCP) . 02 Note: Note 02 The [...] High,A-Abnormal,AA-Critical Abnormal Performed at: 02 WB [facility] [address] [address] Maribel Martin MD, SPATULA-ALONE CERVIX [facility] RECURRENT VAGINITIS (HTRX)on 04-20-2024 ATOPOBIUM VAGINAE 0 [facility] ATOPOBIUM VAGINAE Not detected [facility] BVAB 2,3 (BACTERIAL VAGINOSIS ASSOCIATED BACTERIA 2, 3); MOBILUNCUS SPP 0 [facility] BVAB 2,3 (BACTERIAL VAGINOSIS ASSOCIATED BACTERIA 2, 3); MOBILUNCUS SPP Not detected [facility] JOELLE ALBICANS, PARAPSILOSIS, TROPICALIS 0 [facility] JOELLE ALBICANS, PARAPSILOSIS, TROPICALIS Not detected [facility] JOELLE GLABRATA 0 [facility] JOELLE GLABRATA Not detected [facility] JOELLE KRUSEI 0 [facility] JOELLE KRUSEI Not detected [facility] CHLAMYDIA TRACHOMATIS 0 [facility] CHLAMYDIA TRACHOMATIS Not detected [facility] GARDNERELLA VAGINALIS 0 [facility] GARDNERELLA VAGINALIS Not detected [facility] MEGASPHAERA (TYPES 1, 2) 0 [facility] MEGASPHAERA (TYPES 1, 2) Not detected [facility] MYCOPLASMA GENITALIUM 0 [facility] MYCOPLASMA GENITALIUM Not detected [facility] NEISSERIA GONORRHOEAE 0 [facility] NEISSERIA GONORRHOEAE Not detected [facility] TRICHOMONAS VAGINALIS 0 [facility] TRICHOMONAS VAGINALIS Not detected [facility] Ur[facility]ysis macro (dipstick) panel (U)on 04-19-2024 Bilirubin, UA Negative Negative - 4(70) +++ mg/dL [facility] Blood, UA Negative Negative - 50 Mukesh/mcL [facility] Clarity, UA Clear [facility] Color, UA Yellow [facility] Glucose, UA Negative Negative - 1999(110) ++++ mg/dL [facility] Interpretation and review of laboratory results Normal [facility] Ketones, UA Negative Negative - 160(16) ++++ mg/dL [facility] Leukocytes, UA Negative Negative - 500+++ Shannon/mcL [facility] Nitrite, UA Negative Negative - Positive [facility] pH, UA 7.5 5 - 9 [facility] Protein, UA Negative Negative - 1999(20) ++++ mg/dL [facility] Spec Grav, UA 1.015 1 - 1.03 [facility] Urobilinogen, UA 0.2 0.2 - 12 mg/dL [facility] ALL CBC WITH AUTO DIFFon BASOPHILS ABSOLUTE AUTO 0 [facility] Basophils/100 WBC (Bld) 0.4 % 0.2 - 2.0 % [facility] Eosinophils/100 WBC (Bld) 0.9 % 0.9 - 7.0 % [facility] Erythrocyte distribution width (RBC) [Ratio] 13.1 % 11.0 - 15.0 % [facility] Hematocrit (Bld) [Volume fraction] 36.9 % 36.0 - 48.0 % [facility] Hemoglobin (Bld) [Mass/Vol] 12.3 g/dL 12.0 - 16.0 g/dL [facility] IMMATURE GRANULOCYTES ABS AUTO 0.07 High [facility] Immature granulocytes/100 WBC (Bld) 1 % High 0.0 - 0.5 % [facility] Interpretation and review of laboratory results Abnormal [facility] LYMPHOCYTES ABSOLUTE AUTO 1.8 [facility] Lymphocytes/100 WBC (Bld) 25.9 % 20.5 - 60.0 % [facility] MCH (RBC) [Entitic mass] 29.9 pg 26.7 - 34.0 pg [facility] MCHC (RBC) [Mass/Vol] 33.3 g/dL 29.9 - 35.2 g/dL [facility] MCV (RBC) [Entitic vol] 89.6 fL 81.0 - 99.0 fL [facility] MONOCYTES ABSOLUTE AUTO 0.5 [facility] Monocytes/100 WBC (Bld) 6.4 % 1.7 - 12.0 % [facility] NEUTROPHILS ABSOLUTE AUTO 4.6 [facility] Neutrophils/100 WBC (Bld) 65.4 % 43.0 - 75.0 % [facility] Platelet mean volume (Bld) [Entitic vol] 12 fL 9.5 - 13.5 fL [facility] TBH EO # 0.1 [facility] TB PLT 169 [facility] TB RBC 4.12 Low [facility] TB WBC 7 [facility] CLINISYNC [facility] HCG ( test) Ql (U)o n 03-11-2024 Interpretation and review of laboratory results Abnormal [facility] Preg Test, Ur Positive Negative [facility] Urinalysis macro (dipstick) panel (U)on 03-11-2024 Bilirubin, UA Negative Negative - 4(70) +++ mg/dL [facility] Blood, UA Negative Negative - 50 Mukesh/mcL [facility] Clarity, UA Clear [facility] Color, UA Yellow [facility] Glucose, UA Negative Negative - 1999(110) ++++ mg/dL [facility] Interpretation and review of laboratory results Normal [facility] Ketones, UA Negative Negative - 160(16) ++++ mg/dL [facility] Leukocytes, UA Negative Negative - 500+++ Shannon/mcL [facility] Nitrite, UA Negative Negative - Positive [facility] pH, UA 7 5 - 9 [facility] Protein, UA Negative Negative - 1999(20) ++++ mg/dL [facility] Spec Grav, UA 1.02 1 - 1.03 [facility] Urobilinogen, UA 0.2 0.2 - 12 mg/dL [facility] Ambulatory Visit Summaryon 1 04-30-2023 Ambulatory Visit Summary Ambulatory Visit Summary PAULINE NELLI K :1990 Visit Date:02/28/2024 Ambulatory Visit Instructions [...] with effusion Duration: 10 Days Pickup at [facility] #[id number] Pharmacy Information [facility] #[id number]: [address] [place], [place] [id number] [phone] Allergies No Known Allergies Problems Ongoing - [...] choosing us for your care. Leslye Rutledge [facility] Family Medicine Office/Clini c Notesaul 02-28-2024 Family Medicine Office/Clinic Note Family Medicine Office/Clinic Note Chief Complaint ear pain, cough, sore throat HPI Staff 33 year old female presents with bilateral ear pain- right is worse, cough, sore throat, mild head pressure, congestion symptoms began yesterday pt it 10 weeks History of Present Illness Reviewed and agree with above documented HPI by medical staff director. Portions of this record may have been created with voice recognition artificial intelligence software, specifically [employer], [employer] and or [employer]. Substitutions may have occurred due to the inherent limitations of voice recognition and artificial intelligence software. Patient is a 33-year-old female who presents to [facility] care, for right ear pain, sinus [...] this time. 33-year-old female presented to [facility] care, for right otitis media effusion, [...] for amoxicillin, instructed she can only take qwbc-bab-qfvezxt Tylenol for body aches, headaches, and fevers since she is . Given a work excuse note. Follow-up with primary care provider as needed. 1. Right otitis media with effusion (H65.91: Unspecified nonsuppurative otitis media, right ear) See above Ordered: amoxicillin, 960 mg = 12 mL, Oral, q12hr, X 10 day(s), # 240 mL, Refills(s) 0, Pharmacy: [facility] #[id number], 158, cm, 02/28/24 9:01:00 EST, Height/Length Dosing, [...] weight management wi (more content not included)... [facility] Comment on above: Result Comment: Elec tronically Signed By: MADALYN LOZADA, TIARRA\.br\Date and Time Signed: 02/28/24 09:58 EST Patient Letter FTon 2023 Patient Letter [facility] Patient Letter [facility] [address] [place] [address] February 28, 2024 NELLI CARPENTER [address] [place] [id number] : 1990 Please excuse NELLI CARPENTER from work . Date and/or Time of Absence: From: 02/29/24 May return to work on: 03/01/24 Restrictions: None Comments: Please excuse due to an acute illness. Provider Signature: Tiarra Katz PA-C [address] [place] [address] [place] [address] [facility] CNNURSEon 02-09-2024 CNNURSE Nurse Visit (RESANDEEPV) NELLI CARPENTER ([id number]) 1990 F Date Time Provider Department 02/09/24 10:30 AM NURSE [facility] L[facility]NA HELIO During your visit today, we recorded the [...] 2024 12:27 PM Referring Provider: ANDRESSA ABRAHAM [[id number]] Allergies As of Date: 02/09/2024 (No Known Allergies) Date Reviewed: 01/20/2024 Reviewed by: Andressa Abraham APRN.CNP - Fully Assessed Visit Diagnosis: resulting from assisted reproductive technology in first trimester [O09.811] [facility] [[id number][facility] Order #: [id number]. #:[id number] WPOINTQty: 1 Prescriptions as of 02/09/2024 - vit/iron fum/folic ac ( 1 + 1 ORAL) Take by mouth. - mv-min/iron/folic/calci um/vitK (WOMEN'S MULTIVITAMIN ORAL) Take by mouth. Problem List As Of Date: 02/09/2024 (None) Encounter Status:Closed by PARTH CLARK on 02/09/24 Normal [facility] Examination level ultrasound on 02-09-2024 Indication Viability; IUI done on 01-02-24; obesity >30 Impression - Single, live, intrauterine . - An intrauterine gestational sac with a yolk sac and pole is present. - [place] rump length measurement is consistent with the [...] Read By: Parth Clark M.D. MATERNAL MEDICINE [facility] Radiology Study observation (narrative) [facility] B-HCG SerPl-aCncon 4 HCG.beta subunit Qn 2270.0 m[IU]/mL High <5.0 [facility] Comment on above: Order Comment: Speci men Type: BLOOD SPECIMENOrdering Facility: [facility] Address: [address] [place] [address] Result Comment: NOBLE TITATIVE HCG NORMAL RANGES Weeks of Gestation (Weeks Since LMP) 3 Weeks (5.8-71.2 mIU/mL) 4 Weeks (9.5-750 mIU/mL) 5 Weeks (217-7138 mIU/mL) 6 Weeks (158-00183 mIU/mL) 7 Weeks (3697-694784 mIU/mL) 8 Weeks (87094-206931 mIU/mL) 9 Weeks (20811-348458 mIU/mL) 10 Weeks (44732-255025 mIU/mL) 12 Weeks (94693-757919 mIU/mL) Referenced to 4th IS of [facility] Performed By: #### 2 1198-7 ####[facility] LABCLIA [id number] [place] [address] [place] B-HCG SerPl-aCncon 4 HCG.beta subunit Qn 792.1 m[IU]/mL High <5.0 [facility] Comment on above: Order Comment: Speci men Type: BLOOD SPECIMENOrdering Facility: [facility] Address: [address] [place] [address] Result Comment: NOBLE TITATIVE HCG NORMAL RANGES Weeks of Gestation (Weeks Since LMP) 3 Weeks (5.8-71.2 mIU/mL) 4 Weeks (9.5-750 mIU/mL) 5 Weeks (217-7138 mIU/mL) 6 Weeks (158-98679 mIU/mL) 7 Weeks (3697-042807 mIU/mL) 8 Weeks (43878-065463 mIU/mL) 9 Weeks (32779-096978 mIU/mL) 10 Weeks (27879-013909 mIU/mL) 12 Weeks (27261-613806 mIU/mL) Referenced to 4th IS of [facility] Performed By: #### 2 1198-7 ####[facility] LABCLIA [id number] [address] CNPNila 01-18-2024 CNPN Telephone (REIBD) NELLI CARPENTER ([id number]) 1990 F Date Time Provider Department 01/18/24 ANDRESSA ABRAHAM During your visit today, we recorded the following information about you: Destiny Peters 01/18/2024 10:36 AM Signed Please call patient back regarding next steps. Jessi Yoo PA-C 01/18/2024 4:03 PM Signed Patient calls with positive urine test. History of ectopic: No History of SAB: Yes History of pelvic/abdominal surgeries: Yes, [facility] LMP 12/18, fertility medications used this cycle [...] Date Reviewed: 11/23/2023 Reviewed by: Andressa Abraham APRN.SUPERVISOR VAT HOUSE - Fully Assessed Reason for Visit: +hpt 01/15 after an iui [Other] Primary Visit Diagnosis:Encounter for test, result positive [Z32.01] Order(s):HCG QUANTITATIVE [SQHCGQT] Order #: [id number] STANDING Prescriptions as of 01/18/2024 - vit/iron [...] Encounter Status:Closed by JESSI YOO on 01/18/24 [facility] Ania 01-02-2024 CNOV Office Visit (REIBD) NELLI CARPENTER ([id number]) 1990 F Date Time Provider Department 01/02/24 11:00 AM ANYI GANT During your visit today, we recorded the following information about you: Flavia Elizondo 01/02/2024 11:46 AM Signed IUI specimen released to provider Flavia Elizondo January 02, 2024 11:23 AM Uma Aguilera MD 01/02/2024 11:32 AM Addendum WHI SARAMD IUI PROCEDURE NOTE Date: 01/02/2024 Primary Proceduralist: Uma Aguilera MD Consents and Labels Consent Signed: Informed Consent obtained and on the chart Labels Verified With Patient: Yes Indications: Nelli Carpenter, is a 33 year old female here today for intrauterine insemination. IUI # 2. Cycle Day: 15 Last menstrual period: 12/19/2023 [place] Protocol: UNIVERSAL PROTOCOL / SAFETY CHECKLIST Procedure [...] discussed with the Patient or Patient's Authorized Regulatory Product Manager. As applicable, any other physician, advance practice provider, medical student, or other health professional student that will be observing or involved in the sensitive examination for educational or training purposes was discussed with the Patient or Authorized Regulatory Product Manager. The Patient or Authorized Regulatory Product Manager has agreed to proceed with the sensitive examination. (Sensitive examination includes inspection and/or palpation of the breasts, pelvis, prostate and anorectal regions) Patient declined site acquisition specialist. IUI IUI Date: 01/02/24 Partner's Name: Wanda [...] 01/02/2024 11:46 AM Signed IUI Xytex #: [id number] Washed frozen specimen Post: 122 m/ml, 63% Insem#: 34.7 million Referring Provider: ANDRESSA ABRAHAM [[id number]] Allergies As of Date: 01/02/2024 (No Known Allergies) Date Reviewed: 11/23/2023 Reviewed by: Andressa Abraham, CHIP TESTER.SUPERVISOR VAT HOUSE - Fully Assessed Primary Visit Diagnosis:Encounter for [...] Encounter Status:Closed by ANYI GANT on 01/02/24 [facility] CNOV Office Visit (ANDRBE ) NELLI CARPENTER ([id number]) 1990 F Date Time Provider Department 01/02/24 10:30 AM ANDROLOGY LOAN REVIEW ANALYST ANDRBE During your visit today, we recorded the following information about you: Radha Elizondoelena Guaman 01/02/2024 11:47 AM Signed Thaw for IUI Flavia Elizondo Referring Provider: ANDRESSA ABRAHAM [[id number]] Allergies As of Date: 01/02/2024 (No Known Allergies) Date Reviewed: 11/23/2023 Reviewed by: Andressa Abraham APRN.SUPERVISOR VAT HOUSE - Fully Assessed Primary Visit Diagnosis:Procreative management [...] Encounter Status:Closed by FLAVIA ELIZONDO on 01/02/24 [facility] CNOVon 12-05-2023 CNOV Office Visit (REIBD) NELLI CARPENTER ([id number]) 1990 F Date Time Provider Department 12/05/23 [...] Cycle Day: 15 Last menstrual period: 11/21/2023 [place] Protocol: UNIVERSAL PROTOCOL / SAFETY CHECKLIST Procedure [...] EMERGENT procedures): No specimen collected. Patient declined site acquisition specialist. Uma Aguilera MD IUI IUI Date: 12/05/23 [...] after wash): 49 million Donor ID #: [id number] Cycle reviewed, all questions answered. Pt instructed to take a test in 17 days if no menses and call with results. SIGNATURE: Uma Aguilera MD PATIENT NAME: Nelli Carpenter DATE: December 05, 2023 TIME: 10:31 AM I was present and immediately available for the entire procedure. Patient underwent an intrauterine insemination. Myriam Dominguez MD, TRUDY Lara Stephanie 12/06/2023 8:45 AM Signed IUI X[facility]tex #[id number] Frozen washed specimen Post: 145 Million/mL, 68% Insem #: 49 Million Referring Provider: ANDRESSA ABRAHAM [[id number]] Allergies As of Date: 12/05/2023 (No Known Allergies) Date Reviewed: 11/23/2023 Reviewed by: Andressa Abraham, CHIP TESTER.SUPERVISOR VAT HOUSE - Fully Assessed Primary Visit Diagnosis:Female infertility [...] Encounter Status:Closed by MYRIAM DOMINGUEZ on 12/06/23 [facility] CNOV Office Visit (ANDRBE ) NELLI CARPENTER ([id number]) 1990 F Date Time Provider Department 12/05/23 9:30 AM [facility] During your visit today, we recorded the following information about you: Stephanie Lara 12/05/2023 10:23 AM Signed Thaw for IUI Stephanie Lara Referring Provider: ANDRESSA ABRAHAM [[id number]] Allergies As of Date: 12/05/2023 (No Known [...] Encounter Status:Closed by STEPHANIE LARA on 12/05/23 [facility] [id number] 11-23-2023 HNO ID: [id number] Author: ANDRESSA ABRAHAM APRN.CNP Service: ? 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 Tubal Patency Testing: defer for now Sperm Source:Donor Frozen Treatment Protocol: Natural Cycle Monitoring Plan: OPKs Ovidrel Trigger: No Supplemental Progesterone: None Comments: None Andressa Abraham APRN.SUPERVISOR VAT HOUSE 11/23/2023 Normal [facility] Progesterone [Mass/Vol] 7.4 ng/mL Normal See comment [facility] Comment on above: Order Comment: Speci men Type: BLOOD SPECIMENOrdering Facility: [facility] Address: [address] [place] [address] Result Comment: Mens trual Cycle Progesterone Reference Ranges: Follicular: <1.0 ng/mL Ovulation: <12.1 ng/mL Luteal: 1.8 to 23.9 ng/mL. Progesterone Reference Ranges vary by gestational period: First Trimester: 11.0 to 44.3 ng/mL Second Trimester: 25.4 to 83.3 ng/mL Third Trimester: 58.7 to 214 ng/mL Post menopausal Progesterone: <0.5 ng/mL Reference: 1. Progesterone (Progesterone III) [package insert V 1.0 Amharic]. [facility], [place], [place]. December 2014. Performed By: #### 2 839-9 ####[facility]CLIA [id number] [address] OF [facility] Azar 10-12-2023 LEXUSN Telephone (REIBD) NELLI CARPENTER ([id number]) 1990 F Date Time Provider Department 10/12/23 ANDRESSA ABRAHAM During your visit today, we recorded the following information about you: Destiny Peters 10/12/2023 12:44 PM Signed Partner Wanda calling re +ov need to schedule progesterone test for Nelli when to have it done. Please follow up with Wanda. Laura Roque, BALJINDER 10/12/2023 12:54 PM Signed Called the patient [...] Date Reviewed: 09/11/2023 Reviewed by: Andressa Abraham APRN.SUPERVISOR VAT HOUSE - Fully Assessed Reason for Visit: +ovulation test SatANDSund d14 AND 15 partner calling [Other] Primary Visit Diagnosis:Female infertility [N97.9] Order(s):PROGESTERONE [SQPROG] Order #: [id number] FUTURE Prescriptions as of 10/12/2023 - vit/iron [...] Status:Closed by JESSI YOO on 10/12/23 [facility] CNOVon 09-11-2023 CNOV Office Visit (REIBD) NELLI CARPENTER ([id number]) 1990 F Date Time Provider Department 09/11/23 8:00 AM ANDRESSA ABRAHAM REIBD During your visit today, we recorded the following information about you: Andressa Abraham, CHIP TESTER.SUPERVISOR VAT HOUSE 09/15/2023 4:56 PM Signed REPRODUCTIVE ENDOCRINOLOGY AND [...] favorite donors - send to me via [employer] to confirm Confirmed best vial type to order: IUI/prewashed Will need to follow up to firm up treatment plan and review IUI scheduling instructions. Andressa Abraham, WINDY.SUPERVISOR VAT HOUSE September 11, 2023 8:08 AM I spent a total of 50 minutes on the date of the service which included preparing to see the patient, vqrm-bn-fbqx patient care, completing clinical documentation, obtaining and/or [...] to communic (more content not included)... Normal [facility] Ambulatory Visit Summaryon 1 05-17-2022 Ambulatory [...] for choosing us for your care. Normal [facility] Family Medicine Office/Clini c Noteon [...] data available Patient Education Wrist Pain, Adult, Ckgv-eb-Dolj Problem List/Past Medical History Ongoing Acute sinusitis [...] any changes in your symptoms. ? Take fkoq-zps-dgqeaua and prescription medicines only as told by [...] Reviewed: 02/02/2020 Elsevier Patient Education ? 2022 [employer] Normal [facility] XR Wrist 3+ Views Righton [...] mGy = . DAP = . Normal [facility] Covid 19 Resultson 1 SARS-CoV-2 [...] You may also be contacted by the [facility] of [facility] to see if any of your [...] or Naproxen (Aleve) can also be used. Bwot-ame-jclusdm cough and cold medicines can be used according to the instructions on the package. Some cgme-bjg-sxdomke medicines also contain acetaminophen. Make sure you [...] water are not available, use alcohol-based hand pharmacy benefits coordinator. Avoid touching your eyes, nose, and mouth [...] 24 de (more content not included)... Normal [facility] INFLUENZA A/B, COVID 2019 PC R,SYMPTOMATICon 03-12-2021 INFLUENZA A, PCR Not detected Normal Not Detected [facility] Comment on above: Result Comment: Resp iratory virus testing is performed routinely by PCR for Influenza A/B and RSV. If Influenza and RSV PCR are negative, testing for parainfluenza 1,2,3 viruses and adenovirus is routinely performed for oncology inpatients and intensive care unit patients at [facility] and is available on request on other patients by calling Laboratory Client Services at [phone]. Not Detected results do not preclude Influenza A/B or RSV infections since the adequacy of sample collection or low viral burden may impact the clinical sensitivity of this test method. Performed By: #### C OINP #### [facility] [address] [place] [address] INFLUENZA B, PCR Not detected Normal Not Detected [facility] Comment on above: Result Comment: Resp iratory virus testing is performed routinely by PCR for Influenza A/B and RSV. If Influenza and RSV PCR are negative, testing for parainfluenza 1,2,3 viruses and adenovirus is routinely performed for oncology inpatients and intensive care unit patients at [facility] and is available on request on other patients by calling Laboratory Client Services at [phone] Not Detected results do not preclude Influenza [...] by the Microbiology Laboratory, Department of Pathology, [facility], [place], [place]. It has not been cleared or approved by the US Food and Drug Administration; however, FDA clearance or approval is not currently required for clinical use. This test should not be regarded as investigational or for research purposes. Performed By: #### C OINP #### [facility] [address] [place] [address] SARS-CoV-2 (COVID-19) RNA PENNY+probe Ql (Unsp spec) Not detected Normal Not Detected [facility] Comment on above: Result Comment: [...] patient management decisions. Fact sheet for providers: https://www.fda.gov/media/138856/download Fact sheet for patients: https://www.fda.gov/media/287170/download This test has received FDA Emergency Use Authorization (EUA) and has been verified by [facility] ([facility]). This test is only authorized for the duration of time that circumstances exist to justify the authorization of the emergency use of in vitro diagnostic tests for the detection of SARS-CoV-2 virus and/or diagnosis of COVID-19 infection under section 564(b)(1) of the Act, 21 U.S.C. 360bbb-3(b)(1), unless the authorization is terminated or revoked sooner. [facility] is certified under CLIA-88 as qualified to perform high complexity testing. Testing is performed in the [facility] laboratories located at [address] [place] [address]. Performed By: #### C OINP #### [address] [place] [address] INFLUENZA A/B, COVID 2019 PC R,SYMPTOMATICon 03-11-2021 DATE OF SYMPTOM ONSET [YYYYMMDD]? [id number] Normal [facility] Comment on above: Performed By: #### C OINP #### [address] [place] [address] Lab Specimen Source Nasal, Nasopharyngeal Normal [facility] Comment on above: Performed By: #### C OINP #### [address] 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 Filomena Zamora (CHIP TESTER-SUPERVISOR VAT HOUSE) (Signed Addendum 12-Mar-2021 13:53) Spoke with patient and advised her of negative Covid test results, patien (more content not included)... Normal [facility] Hemoglobin and Hematocriton 12-10-2016 Hematocrit (HCT) 30.2 % Low 36.5-46.6 [facility] thcare Comment on above: Performed By: #### 2 [id number] ####[address] [place] [address] Hemoglobin mass conc (Bld) 9.8 g/dL Low 11.8-15.3 [facility] Healthcare Comment on above: Performed By: #### 2 [id number] ####[address] [address] CBC With Differentialon 11-28 Basophils Auto #/vol (Bld) 0.05 10*3/uL Normal 0.01-0.07 [facility] Healthcare Comment on above: Performed By: #### 2 [id number] ####[address] [address] Basophils/100 WBC Auto (Bld) 0.5 % Normal 0.1-1.2 [facility] Healthcare Comment on above: Performed By: #### 2 [id number] ####[address] [address] Eosinophils 0.08 10*3/uL Normal 0.04-0.50 [facility] are Comment on above: Performed By: #### 2 [id number] ####[address] [address] Eosinophils/100 leukocytes 0.7 % Normal 0.0-8.1 [facility] Healthcare Comment on above: Performed By: #### 2 [id number] ####[address] [address] Erythrocyte distribution width Auto Ratio (RBC) 14.8 % Normal 12.0-15.4 [facility] Healthcare Comment on above: Performed By: #### 2 [id number] ####[address] [address] Erythrocytes (RBC) 0.0 /100{WBCs} Normal [facility] Comment on above: Performed By: #### 2 [id number] ####[address] [address] Erythrocytes (RBC) 3.87 10*6/uL Normal 3.85-5.10 [facility] Comment on above: Performed By: #### 2 [id number] ####[facility] [address] [place] [address] Erythrocytes (RBC) 0.00 10*3/uL Normal [facility] Healthcare Comment on above: Performed By: #### 2 [id number] ####[facility] [address] [place] [address] Hematocrit (HCT) 34.5 % Low 36.5-46.6 [facility] thcare Comment on above: Performed By: #### 2 189913 ####[facility] [address] [place] [address] Hemoglobin mass conc (Bld) 11.4 g/dL Low 11.8-15.3 [facility] Comment on above: Performed By: #### 2 [id number] ####[facility] [address] [facility] [place] [address] Imm Grans Absolute 0.55 10*3/uL High 0.00-0.21 [facility] Healthcare Comment on above: Performed By: #### 2 [id number] ####[facility] [address] [place] [address] Immature granulocytes #/vol (Bld) 5.0 % Normal [facility] Comment on above: Performed By: #### 2 659254 ####[facility] [address] [place] [address] Lymphocytes 1.91 10*3/uL Normal 0.40-2.84 [facility] Comment on above: Performed By: #### 2 130299 ####[facility] [address] [place] [address] Lymphocytes/100 leukocytes 17.2 % Normal 15.7-50.5 [facility] Comment on above: Performed By: #### 2 [id number] ####[facility] [address] [place] [address] MCH 29.5 pg Normal 27.5-33.0 [facility] Healthcare Comment on above: Performed By: #### 2 [id number] ####[facility] [address] [facility] [place] [address] MCHC mass conc (RBC) 33.0 g/dL Normal 30.1-35.0 [facility] Healthcare Comment on above: Performed By: #### 2 [id number] ####[facility] V[address] [facility] [place] [address] MCV 89.1 fL Normal 85.4-100.0 [facility] Healthcare Comment on above: Performed By: #### 2 349651 ####[facility] [address] [facility] [place] [address] Monocytes 0.84 10*3/uL High 0.25-0.83 [facility] Healthca re Comment on above: Performed By: #### 2 985246 ####[facility] [address] [facility] [place] [address] Monocytes/100 leukocytes 7.6 % Normal 4.8-12.7 [facility] Healthcare Comment on above: Performed By: #### 2 762417 ####[facility] [address] [facility] [place] [address] Neutrophils 7.66 10*3/uL High 1.95-6.85 [facility] are Comment on above: Performed By: #### 2 847014 ####[facility] [address] [facility] [place] [address] Neutrophils/100 leukocytes 69.0 % Normal 36.8-73.2 [facility] Healthcare Comment on above: Performed By: #### 2 128367 ####[facility] [address] [facility] [place] [address] Platelet mean volume (PMV) 10.7 fL Normal 9.9-12.1 [facility] Healthcare Comment on above: Performed By: #### 2 [id number] ####[facility] [address] [facility] [place] [address] Platelets 197 10*3/uL Normal 155-404 [facility] Healthcar e Comment on above: Performed By: #### 2 [id number] ####[facility] M[address] [facility] [place] [address] RDW SD 48.2 fL Normal 39.3-48.6 [facility] Healthcare Comment on above: Performed By: #### 2 945558 ####[facility] [address] [place] [address] WBC (Leukocytes) 11.1 10*3/uL High 4.4-9.9 [facility] He althcare Comment on above: Performed By: #### 2 616606 ####[facility] [address] [place] [address] Pathology ([facility])on 12-09-2016 Pathology ([facility]) FINAL SURGICAL PATHOLOGY [id number] FINAL DIAGNOSISPLACENTA-THIRD TRIMESTER PLACENTA WITH ACCESSORY LOBE , 470 GRAMS.FOCAL FIBRIN PLAQUE FORMATION.FOCAL DYSTROPHIC MICROCALCIFICATIONS.THR EE-VESSEL UMBILICAL CORD, NEGATIVE FOR FUNISITIS. MEMBRANES, NEGATIVE FOR CHORIOAMNIONITIS.CLINIC AL HISTORY: 38 WEEKS INTRAUTERINE , HISTORY OF PREVIA WITH BLEEDINGOPERATION:PRIMA RY SECTIONSPECIMEN(S):(A) PLACENTA, THIRD TRIMESTERPerformed at [facility], [address] [place] [id number] DESCRIPTION:Received fresh, labeled with the patient's name, [...] are intact and range from0.05-0.1 cm in diameter.Regulatory Product Manager sections of cord, membranes, and placenta are submitted in sixcassettes.TASSummary of cassettes:A1 - cordA2, A3 - membranesA4, A5, A6 - access representative sections of placentaSigned Out by:Kwame PITTMANorted: 12/11/2016 Normal [facility] Healthcare Comment on above: Performed By: #### S UR ####[facility] [address] [facility] [place] [address] Red Blood Cellson 12-09-2016 Erythrocytes (RBC) Normal [facility] He althcare Comment on above: Result Comment: [id number] released Performed By: #### R C ####[facility] (UNKNOWN)[facility] [facility] [place], [place] [address] Type and Screenon 12-09-2016 Antibody Screen Negative Normal [facility] Healt hcare Comment on above: Performed By: #### T S3 ####[facility] [address] [facility] [place] [address] Group and Rh Positive Normal [facility] Healthca re Comment on above: Performed By: #### T S3 ####[facility] [address] [facility] [place] [address] PREG COMPL ECHO W/O NIKKI ALIZA VEYon 12-03-2016 PREG COMPL ECHO W/O NIKKI SURVEY DATE OF EXAM: Dec 03 2016 3:38PMCLINICAL HISTORY/ Name: KANIKA MCCULLOUGHUDY:PREG COMPL ECHO W/O NIKKI SURVEY 12/03/2016 3:38 pmINDICATION:Growth assessment. Placenta previa.COMPARISON:Repor t from a previous obstetrical ultrasound of 10/30/2016 was reviewed. ERING CLINICIAN:KEITH GREENWOODTECHNIQUE:Routine ultrasound of the pelvis was performed. Evaluation [...] length of 3.3 cm. Normal [facility] Culture Urineon 11-06-2016 Culture Urine STATUS: FINAL REPORT SITE: SOURCE: Urine Culture Urine: <1,000 cfu/ml--No growth Normal [facility] Comment on above: Performed By: #### 6 [id number] ####[facility] [address] [place] [address] Vital Signs Date Time Vital Sign Value Performing Clinician Facility 09-07-2024 15:35-0400 Body mass index (BMI) [Ratio] 40.21 kg/m2 [employer] Work Phone: [facility] 09-07-2024 15:35-0400 Body weight 102.97 kg [employer] Work Phone: [facility] 09-07-2024 15:35-0400 Diastolic blood pressure 76 mm[Hg] [employer] Work Phone: [facility] 09-07-2024 15:35-0400 Systolic blood pressure 124 mm[Hg] [employer] Work Phone: [facility] 08-31-2024 11:53-0400 Body mass index (BMI) [Ratio] 39.86 kg/m2 Karyna BENITES Work Phone: [facility] 08-31-2024 11:53-0400 Body weight 102.06 kg Karyna BENITES Work Phone: [facility] 08-31-2024 11:53-0400 Diastolic blood pressure 70 mm[Hg] Karyna BENITES Work Phone: [facility] 08-31-2024 11:53-0400 Systolic blood pressure 120 mm[Hg] Karyna BENITES Work Phone: [facility] 08-23-2024 15:07-0400 Body mass index (BMI) [Ratio] 39.7 kg/m2 Andrea Conner DO Work Phone: [facility] 08-23-2024 15:07-0400 Body weight 101.66 kg Andrea Conner DO Work Phone: [facility] 08-23-2024 15:07-0400 Diastolic blood pressure 78 mm[Hg] Andrea Conner DO Work Phone: [facility] 08-23-2024 15:07-0400 Systolic blood pressure 120 mm[Hg] Andrea Conner DO Work Phone: [facility] 08-08-2024 14:32-0400 Body mass index (BMI) [Ratio] 39.33 kg/m2 Andrea Conner DO Work Phone: [facility] 08-08-2024 14:32-0400 Body weight 100.7 kg Andrea Conner DO Work Phone: [facility] 08-08-2024 14:32-0400 Diastolic blood pressure 78 mm[Hg] Andrea Conner DO Work Phone: [facility] 08-08-2024 14:32-0400 Systolic blood pressure 122 mm[Hg] Andrea Conner DO Work Phone: [facility] 07-25-2024 11:01-0400 Body mass index (BMI) [Ratio] 39.55 kg/m2 Dina Gerard FRONT OFFICE ASSOCIATE Work Phone: [facility] 07-25-2024 11:01-0400 Body weight 101.27 kg Dina Gerard NP Work Phone: [facility] 07-25-2024 11:01-0400 Diastolic blood pressure 80 mm[Hg] Dina Moustapha FRONT OFFICE ASSOCIATE Work Phone: [facility] 07-25-2024 11:01-0400 Systolic blood pressure 116 mm[Hg] Dina Moustapha FRONT OFFICE ASSOCIATE Work Phone: [facility] 07-11-2024 11:22-0400 Body mass index (BMI) [Ratio] 39.37 kg/m2 Andrea Conner DO Work Phone: [facility] 07-11-2024 11:22-0400 Body weight 100.81 kg Andrea Conner DO Work Phone: [facility] 07-11-2024 11:22-0400 Diastolic blood pressure 80 mm[Hg] Andrea Conner DO Work Phone: [facility] 07-11-2024 11:22-0400 Systolic blood pressure 120 mm[Hg] Andrea Conner DO Work Phone: [facility] 06-22-2024 13:40-0400 Body mass index (BMI) [Ratio] 39.33 kg/m2 Andrea Conner DO Work Phone: [facility] 06-22-2024 13:40-0400 Body weight 100.7 kg Andrea Conner DO Work Phone: [facility] 06-22-2024 13:40-0400 Diastolic blood pressure 74 mm[Hg] Andrea Conner DO Work Phone: [facility] 06-22-2024 13:40-0400 Systolic blood pressure 118 mm[Hg] Andrea Conner DO Work Phone: [facility] 04-19-2024 10:48-0500 Body mass index (BMI) [Ratio] 37.2 kg/m2 Andrea Conner DO Work Phone: [facility] 04-19-2024 10:48-0500 Body weight 95.25 kg Andrea Conner DO Work Phone: [facility] 04-19-2024 10:48-0500 Diastolic blood pressure 80 mm[Hg] Andrea Conner DO Work Phone: [facility] 04-19-2024 10:48-0500 Systolic blood pressure 122 mm[Hg] Andrea Conner DO Work Phone: [facility] 02-28-2024 09:00-0500 Blood Pressure Location TIARRA KATZ [facility] 02-28-2024 09:00-0500 Body temperature 98.96 [degF] [facility] 02-28-2024 09:00-0500 Diastolic blood pressure 80 mm[Hg] [facility] 02-28-2024 09:00-0500 Heart rate 92 /min [facility] 02-28-2024 09:00-0500 SaO2% (BldA) [Mass fraction] 98 % [facility] 02-28-2024 09:00-0500 Systolic blood pressure 124 mm[Hg] [facility] 12-28-2023 08:37-0400 Body height 160 cm Karen Bolanos MD Work Phone: [facility] 12-28-2023 08:37-0400 Body mass index (BMI) [Ratio] 37.02 kg/m2 Karen Bolanos MD Work Phone: [facility] 12-28-2023 08:37-0400 Body temperature 98.6 [degF] Karen Bolanos MD Work Phone: [facility] 12-28-2023 08:37-0400 Body weight 94.8 kg Karen Bolanos MD Work Phone: [facility] 12-28-2023 08:37-0400 Diastolic blood pressure 78 mm[Hg] Karen Bolanos MD Work Phone: [facility] 12-28-2023 08:37-0400 Heart rate 76 /min Karen Bolanos MD Work Phone: [facility] 12-28-2023 08:37-0400 SaO2% (BldA) [Mass fraction] 98 % Karen Bolanos MD Work Phone: [facility] 12-28-2023 08:37-0400 Systolic blood pressure 116 mm[Hg] Karen Bolanos MD Work Phone: [facility] 06-08-2023 09:50-0400 Body height 160 cm Rahul Zheng MD Work Phone: [facility] 06-08-2023 09:50-0400 Body weight 89 kg Rahul Zheng MD Work Phone: [facility] 06-08-2023 09:50-0400 Diastolic blood pressure 83 mm[Hg] Rahul Zheng MD Work Phone: [facility] 06-08-2023 09:50-0400 Systolic blood pressure 132 mm[Hg] Rahul Zheng MD Work Phone: [facility] 03-16-2023 15:08-0500 Blood Pressure Location TIARRA KATZ [facility] 03-16-2023 15:08-0500 Body temperature 98.42 [degF] TIARRA KATZ [facility] 03-16-2023 15:08-0500 Diastolic blood pressure 84 mm[Hg] TIARRA KATZ [facility] 03-16-2023 15:08-0500 Heart rate 73 /min TIARRA KATZ [facility] 03-16-2023 15:08-0500 SaO2% (BldA) [Mass fraction] 96 % TIARRA KATZ [facility] 03-16-2023 15:08-0500 Systolic blood pressure 128 mm[Hg] TIARRA KATZ [facility] 03-11-2021 12:17-0500 Body height 160 cm Karen Luis Miguel Other Phone: [facility] 03-11-2021 12:17-0500 Body temperature 98.06 [degF] Karen Luis Miguel Other Phone: [facility] 03-11-2021 12:17-0500 Diastolic blood pressure 67 mm[Hg] Karen Luis Miguel Other Phone: [facility] 03-11-2021 12:17-0500 Heart rate 78 /min Karen Luis Miguel Other Phone: [facility] 03-11-2021 12:17-0500 Respiratory rate 20 /min Karen Luis Miguel Other Phone: [facility] 03-11-2021 12:17-0500 SaO2% (BldA) [Mass fraction] 97 % Karen Luis Miguel Other Phone: [facility] 03-11-2021 12:17-0500 Systolic blood pressure 101 mm[Hg] Karen Luis Miguel Other Phone: [facility] Encounters Encounter Date Encounter Type Care Provider Facility Start: 09-10-2024 End: 09-10-2024 Clinisync Result Encounter Andrea Conner DO Work Phone: [facility] Unsolicited Start: 09-10-2024 End: 09-10-2024 Clinisync Result Encounter Andrea Conner DO Work Phone: [facility] Unsolicited Start: 09-07-2024 End: 09-07-2024 ambulatory ANDREA CONNER Not Available Start: 09-07-2024 End: 09-07-2024 flow sheet Andrea Conner DO Work Phone: [...] Start: 08-14-2024 End: 08-14-2024 Clinisync Result Encounter Andrae Conner DO Work Phone: [facility] [...] OB Start: 08-08-2024 End: 08-08-2024 Bamboo flowsheet Andera Conner DO Work Phone: [facility] Start: 07-25-2024 End: 07-25-2024 Bamboo flowsheet Dina Moustapha FRONT OFFICE ASSOCIATE Work Phone: [facility] Start: 07-25-2024 End: 07-25-2024 Bamboo flowsheet Dina Moustapha FRONT OFFICE ASSOCIATE Work Phone: [facility] Start: 07-25-2024 End: 07-25-2024 flow sheet Dina Moustapha FRONT OFFICE ASSOCIATE Work Phone: [facility] Comment on [...] 07-08-2024 End: 07-08-2024 Clinisync Result Encounter Karyna Kiara BENITES Work Phone: [facility] External [facility] Unsolicited Start: 07-08-2024 End: 07-08-2024 Clinisync Result Encounter Karyna Solizangelita BENITES Work Phone: [facility] Unsolicited [...] dates Start: 06-01-2024 End: 06-01-2024 ambulatory TRISTAN MERWILD Facility:[facility] Start: 06-01-2024 End: 06-01-2024 Patient encounter procedure [employer] [facility] Comment on above: Encounter for anatomic survey (Primary Dx); Obesity affecting in second trimester, unspecified obesity type; Class 1 obesity without serious comorbidity with body mass index (BMI) of 34.0 to 34.9 in adult, unspecified obesity type; 23 weeks gestation of Start: 05-31-2024 End: 05-31-2024 ambulatory ANDREA CONNER Not Available Start: 05-27-2024 End: 05-27-2024 Transcribe Orders [employer] [facility] Transcribe Provider Maternal Medicine Comment on above: [...] Not Available Start: 02-28-2024 End: 02-28-2024 ambulatory [facility] Facility:[facility] Start: 02-28-2024 End: 02-28-2024 Patient encounter procedure TIARRA KATZ [facility] Start: 02-16-2024 End: 02-16-2024 ambulatory Andressa Abraham CHIP TESTER.[employer] Work Phone: [facility] Comment on above: Records Start: 02-09-2024 End: 02-09-2024 Nursing evaluation of patient and report Fern Lamar MD Work Phone: [facility] Comment on above: resulting from assisted reproductive technology in first trimester Start: 02-09-2024 End: 02-09-2024 ambulatory ANDRESSA Tulio JARAD Facility:[facility] Start: 01-21-2024 End: 01-21-2024 ambulatory JESSI SMOCHARLIE Facility:[facility] Start: 01-20-2024 End: 01-20-2024 ambulatory Andressa G Jarad CHIP TESTER.[employer] Work Phone: [facility] Comment on above: resulting from assisted reproductive technology in first trimester (Primary Dx) Start: 01-20-2024 End: 01-20-2024 Telemedicine consultation with patient Andressa Abraham WINDY.[employer] Work Phone: [facility] Start: 01-19-2024 End: 01-19-2024 ambulatory JESSI YOO Facility:[facility] Start: 01-18-2024 End: 01-18-2024 Telephone encounter Andressa Abraham CHIP TESTER.[employer] Work Phone: [facility] Comment on above: +hpt 01/15 after an iui Start: 01-02-2024 End: 01-02-2024 ambulatory ANYI GANT Facility:[facility] Start: 01-02-2024 End: 01-02-2024 Patient encounter procedure Anyi Gant MD Work Phone: [facility] Comment on above: Encounter for artifi cial insemination (Primary Dx) Procreative manageme nt (Primary Dx) Start: 12-30-2023 End: 12-30-2023 ambulatory ANDRESSA ABRAHAM Facility:[facility] Start: 12-28-2023 End: 12-28-2023 Bamboo na Bolanos MD Work Phone: [facility] Start: 12-28-2023 End: 12-28-2023 Bamboo flowskymberly Bolanos MD Work Phone: [facility] Start: 12-28-2023 End: 12-28-2023 Office outpatient visit 15 minutes Karen Bolanos MD Work Phone: [facility] Comment on above: Infertility, female (Primary Dx); BMI 37.0-37.9, adult; Morbid obesity (CMS/HCC) Start: 12-28-2023 End: 12-28-2023 ambulatory KAREN BOLANOS Not Available Start: 12-05-2023 End: 12-05-2023 ambulatory ANDRESSA ABRAHAM Facility:[facility] Start: 12-05-2023 End: 12-05-2023 Patient encounter procedure Andrology Appointment Specialist Work Phone: [facility] Comment on above: Procreative manageme nt (Primary Dx) Female infertility ( Primary Dx) Start: 12-04-2023 End: 12-04-2023 ambulatory Andressa Abraham WINDY.[employer] Work Phone: [facility] Comment on above: Financial clearance Start: 11-23-2023 End: 11-23-2023 ambulatory Andressa Abraham CHIP TESTER.[employer] Work Phone: [facility] Comment on above: Reproductive mgmt, i nfertility due to male factor (Primary Dx) Start: 11-23-2023 End: 11-23-2023 Telemedicine consultation with patient Andressa Abraham WINDY.[employer] Work Phone: [facility] Start: 10-29-2023 E-mail encounter fro m caregiver Vidhya Pitt APRN.[employer] Work Phone: [facility] Start: 10-29-2023 Follow-up encounter Vidhya osorio APRN.[employer] Work Phone: [facility] Comment on above: Follow up Start: 10-16-2023 End: 10-16-2023 ambulatory JESSI YOO Facility:[facility] Start: 10-12-2023 Telephone encounter Andressa Abraham WINDY.[employer] Work Phone: [facility] Comment on above: +ovulation test Sat& Sund d14 & 15 partner calling Start: 10-05-2023 ambulatory Andressa Deleon angelita CHIP TESTER.[employer] Work Phone: [facility] Comment on above: Doner Start: 09-11-2023 End: 09-11-2023 ambulatory ANDRESSAALTA ABRAHAM Facility:[facility] Start: 09-11-2023 End: 09-11-2023 Patient encounter procedure Andressa Abraham CHIP TESTER.[employer] Work Phone: [facility] Comment on above: Encounter for fertil ity planning (Primary Dx) Start: 07-28-2023 Telephone encounter Rahul carroll MD Work Phone: [facility] Comment on above: Lila bloodwork compl eted today Start: 06-15-2023 End: 06-15-2023 ambulatory Andressa Abraham CHIP TESTER.[employer] Work Phone: [facility] Comment on above: Encounter for fertil ity planning (Primary Dx); Encounter for other genetic testing of female for procreative management Start: 06-15-2023 End: 06-15-2023 Telemedicine consultation with patient Adnressa Abraham WINDY.[employer] Work Phone: [facility] Start: 06-08-2023 End: 06-08-2023 Patient encounter procedure Rahul Zheng MD Work Phone: [facility] Comment on above: Procreative manageme nt counseling (Primary Dx); BMI 34.0-34.9,adult Start: 03-16-2023 End: 03-16-2023 ambulatory TIARRA KATZ Facility:[facility] Start: 03-16-2023 End: 03-16-2023 Patient encounter procedure TIARRA KATZ [facility] Start: 03-19-2022 End: 03-19-[address] ANDREA PRIETO Facility: Start: 03-11-2021 End: 03-11-2021 Emergency department patient visit Filomena Zamora [facility] Start: 12-09-2016 End: 12-11-2016 Evaluation and management of inpatient KEITH GREENWOOD Facility:[facility] Start: 12-03-2016 Ambulatory KEITH GREENWOOD Facility: [facility] Start: 11-13-2016 End: 11-13-2016 Ambulatory CHARLIE JOEL Facility:[facility] Start: 11-06-2016 Ambulatory CHARLIE Brennan lity:[facility] Procedures Date Procedure Procedure Detail Performing Clinician Start: 09-10-2024 US OB BPP W NON-STRESS Andrea Conner DO Work Phone: Start: 09-07-2024 Urnls dip stick/tabl et rgnt [...] et rgnt non-auto w/o micrscp Dina Gerard FRONT OFFICE ASSOCIATE Work Phone: Start: 07-08-2024 ALL CBC WITH AUTO DIFF Karyna Kiara PA Work Phone: Start: 06-27-2024 Urnls dip stick/tabl et rgnt non-auto w/o micrscp Andrea Conner DO Work Phone: Start: 06-01-2024 Us preg uterus after 1st trimest 03/30 gestation Tristan Gloria CHIP TESTER.[employer] Work Phone: Start: 04-19-2024 RECURRENT VAGINITIS (HTRX) [...] after 1st trimest 03/30 gestation Andressa Abraham CHIP TESTER.[employer] Work Phone: Start: 03-19-2022 Microscopic observat ion [Identifier] in Cervix by Cyto stain Karen Bolanos MD Work Phone: section TIARRA Aurelia CALVO Removal of intrauter ine device TIARRA KATZ Plan of Treatment Date Care Activity Detail Author Start: 04-19-2029 Screening for malign ant neoplasm of cervix [facility] Start: 03-19-2025 Screening for malign ant neoplasm of cervix [facility] Start: 11-28-2024 Influenza vaccination Influenz a Vaccine (Season Ended) [facility] Start: 09-07-2024 End: 09-07-2024 Patient encounter procedure 09/07/2024 3:00 PM EDT Routine [facility] [address] [id number] Andrea Prieto DO [address] [facility] [address] [place], [place] [id number] [facility] Start: 08-31-2024 End: 08-31-2025 CULTURE, GROUP B STREP WITH SUSCEPTIBLITY CULTURE, GROUP B STREP WITH SUSCEPTIBLITY Lab Routine Third trimester Expected: 08/31/2024, Expires: 08/31/2025 [facility] Work Phone: Comment on above: Expected: 08/31/2024 , Expires: 08/31/2025 Start: 08-31-2024 End: 08-31-2024 Patient encounter procedure 08/31/2024 11:20 AM EDT Routine [facility] [address] [phone] Karyna Craig PA [address] [place] [address] [place] [address] [facility] Start: 08-23-2024 End: 08-23-2024 Patient encounter procedure 08/23/2024 1:10 PM EDT Routine [facility] [address] [facility] [place] [phone] Karyna Craig, PA [address] [facility] [place] [address] [facility] Start: 08-08-2024 End: 08-08-2024 [...] AM EDT Routine [facility] [address] [place] [phone] Andrea Prieto, DO [address] [address] [facility] Start: 07-11-2024 End: 07-11-2024 Professional / ancillary services management 07/11/2024 10:30 AM EDT Ancillary Procedure [facility] [address] [place] [phone] [facility] Start: 07-05-2024 End: 07-05-2024 Patient encounter procedure 07/05/2024 11:00 AM EDT Office Visit [facility] [address] [place] [phone] Andrea Prieto, [address] [place] [address] [facility] Start: 06-22-2024 End: 06-22-2025 CBC panel - Blood by Automated count CBC Lab Routine Diabetes mellitus screening Expected: 06/22/2024 (Approximate), Expires: 06/22/2025 [facility] Comment on above: Expected: 06/22/2024 (Approximate), Expires: 06/22/2025 Start: 06-22-2024 End: 06-22-2025 Measurement of glucose 1 hour after glucose challenge for glucose tolerance test Glucose tolerance, 1 hour Lab Routine Diabetes mellitus screening Expected: 06/22/2024 (Approximate), Expires: 06/22/2025 [facility] Comment on above: Expected: 06/22/2024 (Approximate), Expires: 06/22/2025 Start: 06-22-2024 End: 06-22-2025 US for US OB follow up transabdominal approach Imaging Routine size inconsistent with dates Expected: 06/22/2024, Expires: 06/22/2025 [facility] Work Phone: Comment on above: Expected: 06/22/2024 , Expires: 06/22/2025 Start: 06-01-2024 End: 06-01-2024 Patient encounter procedure 06/01/2024 11:00 AM EST Routine Office Visit [facility]aternal [facility] [address] [place] [address] anatomy [facility] Comment on above: anatomy Start: 05-27-2024 End: 05-27-2025 OBSTETRIC ULTRASOUND WHI OBSTETRIC ULTRASOUND WHI Anc Imaging Routine Encounter for anatomic survey Expected: 05/27/2024, Expires: 05/27/2025 [facility] Work Phone: Comment on above: [...] AM EST Routine [facility] [address] [phone] Andrea Prieto, DO [address] [place] [address] Dr [place], [place] [phone] Arrived [facility] Comment on above: Arrived Start: 04-12-2024 End: 04-12-2024 Patient encounter procedure 04/12/2024 11:10 AM EST Routine [facility] [address] [phone] Andrea Prieto, DO [address] [facility] [place] [address] [facility] Start: 03-11-2024 End: 03-11-2025 [...] AM EST Nurse Visit [facility] [address] [place] [address] Rej, Nurse Sarmad [facility] [address] [place] [address] ob scan [facility] Comment on above: ob scan Start: 01-25-2024 End: 01-25-2024 Patient encounter procedure 01/25/2024 9:40 AM EDT Office Visit [facility] [address] [phone] Andrea Prieto, DO [address] [facility] [place] [address] [facility] Start: 01-20-2024 End: 01-19-2025 OBSTETRIC ULTRASOUND WHI OBSTETRIC ULTRASOUND WHI Anc Imaging Routine resulting from assisted reproductive technology in first trimester Expected: 01/20/2024, Expires: 01/19/2025 [facility] Work Phone: Comment on above: Expected: 01/20/2024 , Expires: 01/19/2025 Start: 12-28-2023 End: 12-28-2023 Patient encounter procedure 12/28/2023 8:20 AM EDT Office Visit [facility] [address] [place] [phone] Karen Bolanos MD [address] [place] [address] Arrived [facility] Comment on above: Arrived Start: 12-05-2023 End: 12-05-2023 Patient encounter procedure [facility] Comment on above: donor thaw IUI-D Start: 11-29-2023 Covid-19 Vaccine ( season) Covid-19 Vaccine () [facility] Start: 11-29-2023 Covid-19 Vaccine () Covid-19 Vaccine () [facility] Start: 11-29-2023 Influenza vaccination Influenza Vacc ine (#1) [facility] Start: 10-12-2023 End: 01-11-2024 Progesterone [Mass/volume] in Serum or Plasma PROGESTERONE Lab Routine Female infertility Expected: 10/12/2023, Expires: 01/11/2024 [facility] Work Phone: Comment on above: Expected: 10/12/2023 , Expires: 01/11/2024 Start: 06-15-2023 End: 09-14-2023 CARRIER SCREEN, EXPANDED CARRIER SCREEN, EXPANDED Lab Routine Encounter for other genetic testing of female for procreative management Expected: 06/15/2023, Expires: 09/14/2023 [facility] Work Phone: Comment on above: Expected: 06/15/2023 , Expires: 09/14/2023 Start: 03-30-2023 Behavioral Health Screening Behavioral Health Screening [facility] Start: 03-30-2023 Depression Assessment Depression Ass essment [facility] Start: 11-28-2022 Covid-19 Vaccine () Covid-19 Vaccine () [facility] Start: 11-28-2022 Influenza vaccination Influenza Vacc ine (#1) [facility] Start: 08-01-2021 Screening for malign ant neoplasm of cervix [facility] Start: 03-18-2018 Screening for malign ant neoplasm of cervix Pap Testing [facility] Start: 03-18-2016 Screening for malign ant neoplasm of cervix Cervical Cancer Screening [facility] Start: 08-01-2009 Anxiety Screening Anxiety Screening [facility] Start: 08-01-2009 Depression Screening Depression Scre ening [facility] Start: 08-01-2009 Hepatitis C screening Hepatitis C Sc nicki [facility] Start: 08-01-2009 HIV screening HIV Screening [facility] Start: 01-05-2004 Hepatitis B Vaccine (2 of 3 - 3-dose series) Hepatitis B Vaccine (2 of 3 - 3-dose series) [facility] Start: 08-01-2002 Urine microalbumin profile DTaP,Tdap,Td Vaccine (5 - Tdap) [facility] Bacteria identified in Urine by Culture Urine culture Microbiology Routine Missed menses Ordered: 03/11/2024 [facility] Comment on above: Ordered: 03/11/2024 CBC W Auto Different ial panel - Blood CBC and differential Lab Routine Missed menses , unspecified gestational age Ordered: 03/11/2024 [facility] Comment on above: Ordered: 03/11/2024 CHLAMYDIA TRACHOMATI S (GENITO/STI) CHLAMYDIA TRACHOMATIS (GENITO/STI) Lab Routine Vaginal discharge STD exposure Ordered: 04/19/2024 [facility] Comment on above: Ordered: 04/19/2024 End: 01-17-2025 Choriogonadotropin.beta subunit [Units/volume] in Serum or Plasma HCG QUANTITATIVE Lab Routine Encounter for test, result positive 2x per week for 2 Occurrences starting 01/18/2024 until 01/17/2025 [facility] Work Phone: Comment on above: 2x per week for 2 Oc currences starting 01/18/2024 until 01/17/2025 Cytology Cervical or vaginal smear or scraping study Pap Smear Pathology and Cytology Routine Well woman exam with routine gynecological exam Ordered: 04/19/2024 [facility] Work Phone: Comment on above: Ordered: 04/19/2024 Hemoglobin A1c/Hemoglobin.total in Blood Hemoglobin A1c Lab Routine Missed menses , unspecified gestational age Ordered: 03/11/2024 [facility] Comment on above: Ordered: 03/11/2024 Hepatitis B virus surface Ag [Presence] in Serum or Plasma by Immunoassay Hepatitis B surface antigen Lab Routine Missed menses , unspecified gestational age Ordered: 03/11/2024 [facility] Comment on above: Ordered: 03/11/2024 Hepatitis C virus Ab [Presence] in Serum or Plasma by Immunoassay Hepatitis C antibody Lab Routine Missed menses , unspecified gestational age Ordered: 03/11/2024 [facility] Comment on above: Ordered: 03/11/2024 HIV-1/HIV-2 antigen/antibody combination immunoassay HIV-1 and HIV-2 antibodies Lab Routine Missed menses , unspecified gestational age Ordered: 03/11/2024 [facility] Comment on above: Ordered: 03/11/2024 Human papilloma viru s DNA [Presence] in Unspecified specimen by Probe with amplification HPV DNA probe, amplified Microbiology Routine Well woman exam with routine gynecological exam Ordered: 04/19/2024 [facility] Comment on above: Ordered: 04/19/2024 Neisseria gonorrhoea e DNA [Presence] in Unspecified specimen by PENNY with probe detection Neisseria gonorrhea DNA probe, direct Lab Routine Vaginal discharge STD exposure Ordered: 04/19/2024 [facility] Comment on above: Ordered: 04/19/2024 Reagin Ab [Presence] in Serum by RPR RPR Lab Routine Missed menses , unspecified gestational age Ordered: 03/11/2024 [facility] Comment on above: Ordered: 03/11/2024 Rubella antibody, IgG Rubella an tibody, IgG Lab Routine Missed menses , unspecified gestational age Ordered: 03/11/2024 [facility] Comment on above: Ordered: 03/11/2024 SURESWAB(R) ADVANCED VAGINITIS PLUS, TMA SURESWAB(R) ADVANCED VAGINITIS PLUS, TMA Pathology and Cytology Routine Vaginal discharge STD exposure Ordered: 04/19/2024 [facility] Comment on above: Ordered: 04/19/2024 Immunizations Immunization Date Immunization Notes Care Provider Fa [facility] 09-13-2023 measles, mumps and rubella virus vaccine Karen Bolanos MD Work Phone: [facility] 06-15-2023 influenza, injectable, quadrivalent, contains preservative Karen Bolanos MD Work Phone: [facility] 06-15-2023 influenza virus vaccine, unspecified formulation Andressa Abraham APRN.CNP Work Phone: [facility] 08-17-2020 SARS-CoV-2 (COVID-19 ) mRNA-1273 [facility] 07-20-2020 SARS-CoV-2 (COVID-19 ) mRNA-1273 vaccine [facility] 12-10-2016 influenza virus vaccine, unspecified formulation [facility] 12-10-2016 influenza, injectable, quadrivalent, preservative free Karen Bolanos MD Work Phone: [facility] 02-16-2009 novel [id number], preservative-free, injectable Karen Bolanos MD Work Phone: [facility] 12-08-2003 hepatitis B vaccine, pediatric or pediatric/adolescent dosage [facility] 12-08-2003 measles, mumps and rubella virus vaccine [facility] 12-08-2003 tetanus toxoid, adsorbed Karen Bolanos MD Work Phone: [facility] 10-27-1996 measles, mumps and rubella virus vaccine [facility] 02-08-1993 diphtheria, tetanus toxoids and acellular pertussis vaccine Karen Bolanos MD Work Phone: [facility] 02-08-1993 diphtheria, tetanus toxoids and acellular pertussis vaccine, unspecified formulation Karen Bolanos MD Work Phone: [facility] 02-08-1993 DTaP, unspecified formulation [facility] 02-08-1993 haemophilus influenzae type b vaccine, conjugate unspecified formulation Karen Bolanos MD Work Phone: [facility] 02-08-1993 haemophilus influenzae type b vaccine, HbOC conjugate Karen Bolanos MD Work Phone: [facility] 02-08-1993 Hib, unspecified formulation TIARRA KATZ [facility] 02-08-1993 poliovirus vaccine, unspecified formulation Karen Bolanos MD Work Phone: [facility] 02-07-1992 diphtheria, tetanus toxoids and acellular pertussis vaccine Karen Bolanos MD Work Phone: [facility] 02-07-1992 diphtheria, tetanus toxoids and acellular pertussis vaccine, unspecified formulation Karen Bolanos MD Work Phone: [facility] 02-07-1992 DTaP, unspecified formulation TIARRA KATZ [facility] 02-07-1992 haemophilus influenzae type b vaccine, conjugate unspecified formulation Karen Bolanos MD Work Phone: [facility] 02-07-1992 haemophilus influenzae type b vaccine, HbOC conjugate Karen Bolanos MD Work Phone: [facility] 02-07-1992 Hib, unspecified formulation TIARRA KATZ [facility] 1991 diphtheria, tetanus toxoids and acellular pertussis vaccine Karen Bolanos MD Work Phone: [facility] 1991 diphtheria, tetanus toxoids and acellular pertussis vaccine, unspecified formulation Karen Bolanos MD Work Phone: [facility] 1991 DTaP, unspecified formulation TIARRA KATZ [facility] 1991 haemophilus influenzae type b vaccine, conjugate unspecified formulation Karen Bolanos MD Work Phone: [facility] 1991 haemophilus influenzae type b vaccine, HbOC conjugate Karen Bolanos MD Work Phone: [facility] 1991 Hib, unspecified formulation TIARRA KAZT [facility] 1991 poliovirus vaccine, unspecified formulation Karen Bolanos MD Work Phone: [facility] 1991 diphtheria, tetanus toxoids and acellular pertussis vaccine Karen Bolanos MD Work Phone: [facility] 1991 diphtheria, tetanus toxoids and acellular pertussis vaccine, unspecified formulation Karen Bolanos MD Work Phone: [facility] 1991 DTaP, unspecified formulation TIARRA KATZ [facility] 1991 haemophilus influenzae type b vaccine, conjugate unspecified formulation Karen Bolanos MD Work Phone: [facility] 1991 haemophilus influenzae type b vaccine, HbOC conjugate Karen Bolanos MD Work Phone: [facility] 1991 Hib, unspecified formulation TIARRA KATZ [facility] 1991 poliovirus vaccine, unspecified formulation Karen Bolanos MD Work Phone: [facility] NEGATED: Highlighted row has not occurred!03-16-2023 influenza virus vaccine, unspecified formulation TIARRA KATZ [facility] Payers Date Payer Category Payer Unknown [id number] 2022 [facility] 1.2.8 [id number] 2022 Unknown 2022 Unknown [id number] 1991 Unknown [id number] 2.16.84 [id number] 1991 Unknown [id number] 2.16.8 [id number] 1991 Unknown [id number] 2.16.8 [id number] 1991 Unknown [id number] 2.16.8 [id number]. 1991 Unknown [id number] 2.16.8 [id number] 1991 Unknown [id number] 2.16.8 [id number] 1991 Unknown [id number] 2.16.84 [id number] 1991 Unknown [id number] 2.16.84 0.1.414290.3.579.2.1258 1991 Unknown [id number] 2.16.84 [id number] 1991 Unknown [id number] 2.16.84 0.1.695021.3.579.2.1258 1991 Unknown [id number] 2.16.84 0.1.106616.3.579.2.1258 1991 Unknown [id number] 2.16.84 [id number] 1991 Unknown [id number] 2.16.84 [id number] 1991 Unknown [id number] 2.16.84 0.1.900261.3.579.2.1258 1991 Unknown [id number] 2.16.84 [id number] 1991 Unknown [id number] 2.16.84 [id number] 1959 Unknown [id number] Unknown [id number] Social History Date Type Detail Facility [facility] Tobacco smoking consumption unknown [facility] Start: 11-11-2022 End: 03-16-2023 Tobacco smoking status Never smoked tobacco (finding) [facility] Tobacco smoking status Never Phyllis [facility] Start: 06-08-2023 End: 12-28-2023 Sex Assigned At Female Cinebar Bindu Pepin [facility] Start: 04-12-2012 End: 11-11-2022 Tobacco use and exposure Smokeless tobacco non-user [facility] Start: 06-08-2023 End: 09-07-2024 Alcohol intake Current drinker of alcohol (finding) [facility] Start: 06-08-2023 End: 12-28-2023 History of Social function [facility] Start: 04-12-2012 Alcohol Comment social [facility] Start: 1991 Sex Assigned At Not on file [facility] Start: 1991 Sex Assigned At Female [facility] Start: 06-11-2022 Gender identity Identifies as female gender (finding) [facility] Start: 01-12-2023 Sexual orientation Homosexual (findi ng) [facility] Start: 11-10-2022 Alcohol Comment 1-2 drinks [...] meal for a total of 4times daily. [id number] Start: 07-12-2024 End: 08-11-2024 1 each by In Vit ro route Daily Use to check FSBS four times daily [id number] Start: 07-12-2024 End: 08-11-2024 Goals Date Patient Goal Desired Activity /State Personal health goal Functional Status Date Assessment Result Facility 02-28-2024 Functional Status N/A [facility] 03-16-2023 Functional Status N/A [facility] Clinical Notes 03-16-2023 to 09-07-2024 KAMARI Zvaala - 09/07/2024 2:50 PM KAMARI Lund - 08/31/2024 11:20 AM Orlin Posadas LPN - 08/23/2024 2:40 PM Caitlyn Rubi, MA - 08/08/2024 2:10 PM KAMARI Lund [...] depressive disorder (HCC) ([facility]/HCC) 12/28/2023 Restless leg 12/28/2023 Resolved Ambulatory Problems [...] Prieto DO documented in this encounter [facility] 08-31-2024 History of Presen t illness [...] depressive disorder (HCC) ([facility]/HCC) 12/28/2023 Restless leg 12/28/2023 Resolved Ambulatory Problems [...] of: KAMARI Zavala documented in this encounter [facility] 08-23-2024 History of Presen t illness Narrative Reason for Appointment: Patient ID: Nelli Carpenter is a 34 y.o. female who presents for Routine Visit Patient presents today for Return OB appointment. MEDICATIONS Current Outpatient Medications Medication Instructions Alcohol Swabs (Alcohol Prep Pad) 70 % pads 1 Pad, Topical, Daily, Use four times daily to check FSBS. Blood Glucose Monitoring Suppl (D-O2 [place] Glucometer) w/Device kit 1 kit, Does not [...] depressive disorder (HCC) ([facility]/HCC) 12/28/2023 Restless leg 12/28/2023 Resolved Ambulatory Problems [...] nursing note reviewed. Exam conducted with a site acquisition specialist present. Vitals: Estimated body mass index is [...] Prieto DO documented in this encounter [facility] 08-08-2024 History of Presen t illness Narrative Reason for Appointment: Patient ID: Nelli Carpenter is a 34 y.o. female who presents for Routine Visit Patient presents today for Return OB appointment. MEDICATIONS Current Outpatient Medications Medication Instructions Alcohol Swabs (Alcohol Prep Pad) 70 % pads 1 Pad, Topical, Daily, Use four times daily to check FSBS. Blood Glucose Monitoring Suppl (D-O2 [place] Glucometer) w/Device kit 1 kit, Does not [...] depressive disorder (HCC) ([facility]/HCC) 12/28/2023 Restless leg 12/28/2023 Resolved Ambulatory Problems [...] nursing note reviewed. Exam conducted with a site acquisition specialist present. Vitals: Estimated body mass index is [...] changes & patient will send results for Publications Production Supervisor next Thursday. Patient is also to start NST/BPP. Order will be sent to [facility] anf [facility] Scheduling. Patient given handout as well. Patient to have sugars monitored locally and is going to cancel upcoming appointment with [facility] telemedicine. Orders Placed This Encounter Procedures POCT urinalysis dipstick manually resulted Follow Up: Patient is to return to office in 3 week for routine OB appointment. Documented by Liane Manzano LPN on behalf of: Andrea Prieto DO documented in this encounter [facility] 07-25-2024 History of Presen t illness Narrative Reason for Appointment: Patient ID: Nelli Carpenter is a 33 y.o. female who presents for Routine Visit Patient presents today for Return OB appointment. MEDICATIONS Current Outpatient Medications Medication Instructions Alcohol Swabs (Alcohol Prep Pad) 70 % pads 1 Pad, Topical, Daily, Use four times daily to check FSBS. Blood Glucose Monitoring Suppl (hopTo-O2 [place] Glucometer) w/Device kit 1 kit, Does not [...] depressive disorder (HCC) ([facility]/HCC) 12/28/2023 Restless leg 12/28/2023 Resolved Ambulatory Problems [...] nursing note reviewed. Exam conducted with a site acquisition specialist present. Vitals: Estimated body mass index is [...] completed level 2 Ultrasound at [facility] but has not yet met with M. [...] Gerard NP documented in this encounter [facility] 07-20-2024 Telephone encounter Note Received outside referral from Dr. Prieto for GDM consult due to elevated 1 hour glucose 202. Called pt. To schedule appointment no answer, left message with call back phone number. Jessy Lilly RN [facility] 07-20-2024 Miscellaneous Notes Received outside referral from Dr. Prieto for GDM consult due to elevated 1 hour glucose 202. Called pt. To schedule appointment no answer, left message with call back phone number. Jessy Lilly RN documented in this encounter [facility] 07-11-2024 History of Presen t illness Narrative Reason for Appointment: Patient ID: eNlli Carpenter is a 33 y.o. female who [...] nursing note reviewed. Exam conducted with a site acquisition specialist present. Vitals: Estimated body mass index is [...] Diabetic and referral will be done to [facility] for Diabetic management. Patient aware that supplies will be sent to pharmacy to take with her to referral appointment. Documented by Liane Manzano LPN on behalf of: Andrea Prieto DO documented in this encounter [facility] 06-22-2024 History of Presen t illness [...] Problems Past Medical History: Diagnosis Date Asthma ([facility] BMI 28.0-28.9,adult Depression screening [...] KAMARI Zavala documented in this encounter [facility] 06-01-2024 Note HNO ID: [id number] Author: LEONID MYERS MD Service: ? Author Type: Physician Type: Progress Notes Filed: 06/01/2024 15:07 Note Text: Please see ultrasound report for details of this visit. Leonid Myers M.D. [facility] 06-01-2024 History of Presen t illness Narrative Please see ultrasound report for details of this visit. Leonid Myers M.D. documented in this encounter [facility] 04-19-2024 History of Presen t illness [...] nursing note reviewed. Exam conducted with a site acquisition specialist present. Vitals: Estimated body mass index is [...] to be obtained. Pt being referred to [facility] for level II ultrasound for IVF [...] Prieto DO documented in this encounter [facility] 03-11-2024 History of Presen t illness [...] Problems Past Medical History: Diagnosis Date Asthma ([facility]) BMI 28.0-28.9,adult Depression screening [...] meat, and stay away from formerly [facility]. Patient has also been advised to [...] Ferguson LPN documented in this encounter [facility] 02-28-2024 Hospital Discharg e instructions Patient [...] Centers for Disease Control and Prevention: cdc.gov [employer]: heart.org National Heart, Lung, and Blood [place]: nhlbi.nih.gov This information is not intended to replace advice given to you by your health care provider. Make sure you discuss any questions you have with your health care provider. Document Revised: 12/04/2022 Document Reviewed: 11/27/2022 Box Patient Education 2023 [employer]. 02/28/2024 09:57:52 Otitis Media, Adult, Ftws-hs-Pqoc Otitis Media, Adult Otitis media is a [...] pain. Follow these instructions at home: Take hefq-azg-ywcmdlo and prescription medicines only as told by [...] provider. Document Revised: 06/24/2021 Document Reviewed: 06/24/2021 Box Patient Education 2023 [employer]. Follow Up Care 02/28/2024 08:48:51 With:Karen Bolanos MD Address: [address] [place] [address]- When: Unknown [facility] 02-28-2024 Note Patient Education [...] Follow these instructions at home: ??? Take jtee-nvd-fxqkuzt and prescription medicines only as told by [...] provider. Document Revised: 06/24/2021 Document Reviewed: 06/24/2021 Box Patient Education ? 2023 [employer] Nutrition BMI for Adults Body mass [...] (Inserted Image. Un (more content not included)... [facility] 02-09-2024 Note HNO ID: [id number] Author: VIDHYA PITT APRN.SUPERVISOR VAT HOUSE Service: ? Author Type: Nurse Practitioner Type: [...] Pitt APRN.CNP February 09, 2024 12:27 PM [facility] 02-09-2024 History of Presen t illness [...] Pitt APRN.LEXUS February 09, 2024 12:27 PM Scan Visit Patient here for scan. See imaging documentation. Parth Clark MD documented in this encounter [facility] 02-09-2024 Note HNO ID: [id number] Author: PARTH CLARK MD Service: ? Author Type: Physician Type: Progress Notes Filed: 02/09/2024 11:28 Note Text: Scan Visit Patient here for scan. See imaging documentation. Parth Clark MD [facility] 01-20-2024 Note HNO ID: [id number] Author: ANDRESSA ABRAHAM APRN.CNP Service: ? Author [...] visit. Either the patient or their legal access representative has been informed of the risks [...] which included preparing to see the patient, vxxv-li-pawb patient care, completing clinical documentation, obtaining and/or [...] grammatical and typographical errors missed in proofreading. [facility] 01-20-2024 History of Presen t illness [...] visit. Either the patient or their legal access representative has been informed of the risks [...] schedule the patient for the following- Location: [place] Provider: nurse Visit type: scan Reason for visit/appointment notes: scan Date: 02/08 Time (requested): 1030 If slot is full, please schedule the closest open slot. Call to patient needed: no I spent a total of 30 minutes on the date of the service which included preparing to see the patient, kekr-ss-cjht patient care, completing clinical documentation, obtaining and/or [...] missed in proofreading. documented in this encounter [facility] 01-18-2024 Telephone encounter Note Patient calls with positive urine test. History of ectopic: No History of SAB: Yes History of pelvic/abdominal surgeries: Yes, D&C LMP 12/18, fertility medications used this cycle natural cycle , date of LH surge: 12/31, IUI done: 10/5 Blood type: O, POS, rubella vaccinated , [...] follow up. Labs ordered: hCG x 2 SUGARI Angelica Yoo PA-C January 18, 2024 4:[address] [facility] 01-18-2024 Miscellaneous Notes Patient calls with [...] regarding next steps. documented in this encounter [facility] 01-18-2024 Telephone encounter Note Please call patient back regarding next steps. [facility] Work Phone: 01-02-2024 Note HNO ID: [id number] Author: FLAVIA ELIZONDO, ? Service: ? Author Type: Propellant Charge Zone Assembler Type: Progress Notes Filed: 01/02/2024 11:47 Note Text: Thaw for IUI Flavia Elizondo [facility] 01-02-2024 History of Presen t illness Narrative Thaw for IUI Flavia Elizondo documented in this encounter [facility] 01-02-2024 Note HNO ID: [id number] Author: FLAVIA ELIZONDO, ? Service: ? Author Type: Propellant Charge Zone Assembler Type: Progress Notes Filed: 01/02/2024 11:46 Note Text: IUI Xytex #: [id number] Washed frozen specimen Post: 122 m/ml, 63% Insem#: 34.7 million [facility] 01-02-2024 History of Presen t illness Narrative IUI Xytex #: [id number] Washed frozen specimen Post: 122 m/ml, 63% Insem#: 34.7 million IUI specimen released to provider Flavia Elizondo January 02, 2024 11:23 AM documented in this encounter [facility] 01-02-2024 Note HNO ID: [id number] Author: ANYI GANT MD Service: ? Author [...] Cycle Day: 15 Last menstrual period: 12/19/2023 [place] Protocol: UNIVERSAL PROTOCOL / SAFETY CHECKLIST Procedure [...] discussed with the Patient or Patient's Authorized Regulatory Product Manager. As applicable, any other physician, advance practice provider, medical student, or other health professional student that will be observing or involved in the sensitive examination for educational or training purposes was discussed with the Patient or Authorized Regulatory Product Manager. The Patient or Authorized Regulatory Product Manager has agreed to proceed with the sensitive examination. (Sensitive examination includes inspection and/or palpation of the breasts, pelvis, prostate and anorectal regions) Patient declined site acquisition specialist. IUI IUI Date: 01/02/24 Partner's Name: Wanda [...] Anyi Gant M.D. Reproductive Endocrinology and Infertility [facility] 01-02-2024 Procedure note WHI SARMAD IUI PROCEDURE NOTE Date: 01/02/2024 Primary Proceduralist: Uma Aguilera MD Consents and Labels Consent Signed: Informed Consent obtained and on the chart Labels Verified With Patient: Yes Indications: Nelli Carpenter, is a 33 year old female here today for intrauterine insemination. IUI # 2. Cycle Day: 15 Last menstrual period: 12/19/2023 [place] Protocol: UNIVERSAL PROTOCOL / SAFETY CHECKLIST Procedure [...] discussed with the Patient or Patient's Authorized Regulatory Product Manager. As applicable, any other physician, advance practice provider, medical student, or other health professional student that will be observing or involved in the sensitive examination for educational or training purposes was discussed with the Patient or Authorized Regulatory Product Manager. The Patient or Authorized Regulatory Product Manager has agreed to proceed with the sensitive examination. (Sensitive examination includes inspection and/or palpation of the breasts, pelvis, prostate and anorectal regions) Patient declined site acquisition specialist. IUI IUI Date: 01/02/24 Partner's Name: Wanda [...] Anyi Gant M.D. Reproductive Endocrinology and Infertility [facility] Work Phone: 01-02-2024 Procedure note WHI SARMAD IUI PROCEDURE NOTE Date: 01/02/2024 Primary Proceduralist: Uma Aguilera MD Consents and Labels Consent Signed: Informed Consent obtained and on the chart Labels Verified With Patient: Yes Indications: Nelli Carpenter, is a 33 year old female here today for intrauterine insemination. IUI # 2. Cycle Day: 15 Last menstrual period: 12/19/2023 [place] Protocol: UNIVERSAL PROTOCOL / SAFETY CHECKLIST Procedure [...] discussed with the Patient or Patient's Authorized Regulatory Product Manager. As applicable, any other physician, advance practice provider, medical student, or other health professional student that will be observing or involved in the sensitive examination for educational or training purposes was discussed with the Patient or Authorized Regulatory Product Manager. The Patient or Authorized Regulatory Product Manager has agreed to proceed with the sensitive examination. (Sensitive examination includes inspection and/or palpation of the breasts, pelvis, prostate and anorectal regions) Patient declined site acquisition specialist. IUI IUI Date: 01/02/24 Partner's Name: Wanda [...] Endocrinology and Infertility documented in this encounter [facility] 01-02-2024 Note HNO ID: [id number] Author: FLAVIA ELIZONDO, ? Service: ? Author Type: Propellant Charge Zone Assembler Type: Progress Notes Filed: 01/02/2024 11:46 Note Text: IUI specimen released to provider Flavia Elizondo January 02, 2024 11:23 AM [facility] 12-28-2023 History of Presen t illness [...] monitor weight documented in this encounter [facility] 12-05-2023 Note HNO ID: [id number] Author: STEPHANIE LARA, ? Service: ? Author Type: ? Type: Progress Notes Filed: 12/06/2023 08:45 Note Text: IUI Xytex #[id number] Frozen washed specimen Post: 145 Million/mL, 68% Insem #: 49 Million [facility] 12-05-2023 History of Presen t illness Narrative IUI Xytex #[id number] Frozen washed specimen Post: 145 Million/mL, 68% Insem #: 49 Million IUI specimen released to provider Stephanie Lara December 05, 2023 10:19 AM documented in this encounter [facility] 12-05-2023 Note HNO ID: [id number] Author: MYRIAM DOMINGUEZ MD Service: ? Author [...] Cycle Day: 15 Last menstrual period: 11/21/2023 [place] Protocol: UNIVERSAL PROTOCOL / SAFETY CHECKLIST Procedure [...] EMERGENT procedures): No specimen collected. Patient declined site acquisition specialist. Uma Aguilera MD IUI IUI Date: 12/05/23 [...] after wash): 49 million Donor ID #: [id number] Cycle reviewed, all questions answered. Pt instructed to take a test in 17 days if no menses and call with results. SIGNATURE: Uma Aguilera MD PATIENT NAME: Nelli Carpenter DATE: December 05, 2023 TIME: 10:31 AM I was present and immediately available for the entire procedure. Patient underwent an intrauterine insemination. Myriam Dominguez MD, TRUDY [facility] 12-05-2023 Procedure note WHI SARMAD IUI PROCEDURE NOTE Date: 12/05/2023 Primary Proceduralist: Uma Aguilera MD Consents and Labels Consent Signed: Informed Consent obtained and on the chart Labels Verified With Patient: Yes Indications: Nelli Carpenter, is a 33 year old female here today for intrauterine insemination. IUI # 1. Cycle Day: 15 Last menstrual period: 11/21/2023 [place] Protocol: UNIVERSAL PROTOCOL / SAFETY CHECKLIST Procedure [...] EMERGENT procedures): No specimen collected. Patient declined site acquisition specialist. Uma Aguilera MD IUI IUI Date: 12/05/23 [...] after wash): 49 million Donor ID #: [id number] Cycle reviewed, all questions answered. Pt instructed to take a test in 17 days if no menses and call with results. SIGNATURE: Uma Aguilera MD PATIENT NAME: Nelli Carpenter DATE: December 05, 2023 TIME: 10:31 AM I was present and immediately available for the entire procedure. Patient underwent an intrauterine insemination. Myriam Dominguez MD, TRUDY [facility] Work Phone: 12-05-2023 Procedure note WHI SARMAD IUI PROCEDURE NOTE Date: 12/05/2023 Primary Proceduralist: Uma Aguilera MD Consents and Labels Consent Signed: Informed Consent obtained and on the chart Labels Verified With Patient: Yes Indications: Nelli Carpenter, is a 33 year old female here today for intrauterine insemination. IUI # 1. Cycle Day: 15 Last menstrual period: 11/21/2023 [place] Protocol: UNIVERSAL PROTOCOL / SAFETY CHECKLIST Procedure [...] EMERGENT procedures): No specimen collected. Patient declined site acquisition specialist. Uma Aguilera MD IUI IUI Date: 12/05/23 [...] after wash): 49 million Donor ID #: [id number] Cycle reviewed, all questions answered. Pt instructed to take a test in 17 days if no menses and call with results. SIGNATURE: Uma Aguilera MD PATIENT NAME: Nelli Carpenter DATE: December 05, 2023 TIME: 10:31 AM I was present and immediately available for the entire procedure. Patient underwent an intrauterine insemination. Myriam Dominguez MD, TRUDY documented in this encounter [facility] 12-05-2023 History of Presen t illness Narrative Thaw for IUI Stephanieac Lara documented in this encounter [facility] 12-05-2023 Note HNO ID: [id number] Author: STEPHANIE LARA, ? Service: ? Author Type: ? Type: Progress Notes Filed: 12/05/2023 10:23 Note Text: Thaw for IUI Stephanie Lara [facility] 12-05-2023 Note HNO ID: [id number] Author: STEPHANIE LARA, ? Service: ? Author Type: ? 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 Tubal Patency Testing: defer for now Sperm Source:Donor Frozen Treatment Protocol: Natural Cycle Monitoring Plan: OPKs Ovidrel Trigger: No Supplemental Progesterone: None Comments: None Andressa Abraham APRN.CNP 11/23/[address] 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 Tubal Patency Testing: defer for now Sperm Source:Donor Frozen Treatment Protocol: Natural Cycle Monitoring Plan: OPKs Ovidrel Trigger: No Supplemental Progesterone: None Comments: None Andressa Abraham APRN.CNP 11/23/2023 documented in this encounter [facility] 11-23-2023 Instructions Andressa Abraham APRN.CNP - [...] your period and let the front office associate know you will be doing donor sperm [...] your menstrual cycle to let the front office associate know you will be testing and doing [...] please call the [place] [address] Available every day, including weekends and holidays (except [place] and New Years.) Weekday IUI scheduling The day you get your LH surge, please call [phone] between 8:00am - 12:00pm to schedule your insemination for the next day. If you call after 12pm, we may not be able to schedule your appointment. IUI s are done by appointment only. You will make 2 appointments - an arrival time and an IUI time. Donor sperm IUI is available at the following location: [place]: [address] [place] [address] Available every day, including weekends and holidays (except [place] and New Years.) Available for IUI using fresh and frozen samples. Check in location for sperm wash and IUI: [address] The sperm wash takes 60-90 minutes. [...] to do another IUI: Call the front office associate to make sure you are financially cleared. Ask to speak to an NELLY to confirm your treatment plan. Important phone number: [phone] documented in this encounter [facility] 11-23-2023 Note HNO ID: [id number] Author: ANDRESSA ABRAHAM APRN.CNP Service: ? Author [...] visit. Either the patient or their legal access representative has been informed of the risks [...] factor Z31.81 N97.8 She is able to pick out hand OPK every cycle, luteal phase is appropriate. Reviewed IUI scheduling and IUI procedure. Plan: natural cycle IUI-D timed with OPK. Sign IUI consent at earliest convenience. Andressa Abraham APRN.SUPERVISOR VAT HOUSE November 23, 2023 9:09 AM I spent a total of 25 minutes on the date of the service which included preparing to see the patient, fdxo-fy-uthw patient care, completing clinical documentation, obtaining and/or [...] grammatical and typographical errors missed in proofreading. [facility] 11-23-2023 History of Presen t illness [...] visit. Either the patient or their legal access representative has been informed of the risks [...] factor Z31.81 N97.8 She is able to pick out hand OPK every cycle, luteal phase is appropriate. Reviewed IUI scheduling and IUI procedure. Plan: natural cycle IUI-D timed with OPK. Sign IUI consent at earliest convenience. Andressa Abraham APRN.CNP November 23, 2023 9:09 AM I spent a total of 25 minutes on the date of the service which included preparing to see the patient, tuqd-vs-xbog patient care, completing clinical documentation, obtaining and/or [...] missed in proofreading. documented in this encounter [facility] 10-12-2023 Telephone encounter Note Called the patient she verified her name and date of patient is doing practice cycle Patient had peak on her opk 10-10-23 last period 09-27-23 Needs progesterone order I advised she goes in 6-8 days from positive opk not on fertility meds Laura Roque RN October 12, 2023 12:[address] [facility] 10-12-2023 Miscellaneous Notes Called the patient [...] up with Wanda. documented in this encounter [facility] 10-12-2023 Telephone encounter Note Partner Wanda calling re +ov need to schedule progesterone test for Nelli when to have it done. Please follow up with Wanda. [facility] Work Phone: 09-11-2023 Instructions Andressa Abraham APRN.[facility] - 09/11/2023 8:20 AM EDT REPRODUCTIVE ENDOCRINOLOGY [...] sample yourself and arranging for shipment to [facility] And[facility]. [facility] [place] [facility] ([place]) [facility] [place] [facility]) [place] [facility] Let us [...] (with a backup), please send me a [employer]Bird message titled Sperm Donor Choice. Include the [...] the office. Mailing address: Chris: Flavia Elizondo [address] [address] [facility], [address] [place] [address] [address] [facility] is available. Fees are yearly and only start once you are not actively trying. Please ask the financial team ([phone]) for current cost information. Insurance Authorization/Financial Clearance [...] your period and let the front office associate know you will be doing donor sperm insemination. The financial office will contact you to collect payment early in your cycle. You will not be able to schedule an IUI unless you have made payment. We want to help make your experience as smooth as possible. Please do not hesitate to call if you should have any questions. Contact documented in this encounter [facility] 09-11-2023 Note HNO ID: [id number] Author: ANDRESSA ABRAHAM APRN.LEXUS Service: ? Author [...] favorite donors - send to me via [employer] to confirm Confirmed best vial type to order: IUI/prewashed Will need to follow up to firm up treatment plan and review IUI scheduling instructions. Andressa Abraham APRN.SUPERVISOR VAT HOUSE September 11, 2023 8:08 AM I spent a total of 50 minutes on the date of the service which included preparing to see the patient, vxgv-mi-tcme patient care, completing clinical documentation, obtaining and/or [...] may be gramma (more content not included)... [facility] 09-11-2023 History of Presen t illness [...] favorite donors - send to me via [employer] to confirm Confirmed best vial type to order: IUI/prewashed Will need to follow up to firm up treatment plan and review IUI scheduling instructions. Andressa Abraham APRN.SUPERVISOR VAT HOUSE September 11, 2023 8:08 AM I spent a total of 50 minutes on the date of the service which included preparing to see the patient, zexv-xg-dxzy patient care, completing clinical documentation, obtaining and/or [...] missed in proofreading. documented in this encounter [facility] 07-28-2023 Telephone encounter Note Sheyla labs [...] follow up once checklist is complete. sent [employer] message. Andressa Abraham APRN.CNP July 28, 2023 12:[address] [facility] 07-28-2023 Miscellaneous Notes Sheyla labs are in process partner Wanda Carpenter [...] follow up once checklist is complete. sent Libraton[employer] message. Andressa Abraham APRN.CNP July 28, 2023 12:27 PM Please follow up with patient completed bloodwork today, next steps after labwork. documented in this encounter [facility] 07-28-2023 Telephone encounter Note Please follow up with patient completed bloodwork today, next steps after labwork. [facility] Work Phone: 06-15-2023 History of Presen [...] and birthday verified: Yes Location of patient: [place] Persons Present: patient and patient's spouse/significant other I have communicated my name and active licensure. The patient's identity and physical location were verified at the time of this visit. Either the patient or their legal access representative has been informed of the risks [...] which included preparing to see the patient, fwhh-fq-ksad patient care, completing clinical documentation, obtaining and/or [...] missed in proofreading. documented in this encounter [facility] 06-08-2023 Instructions Rahul Zheng MD - 06/08/2023 10:26 AM EDT Images from the original note were not included. Obstetrics and Gynecology [facility] Intrauterine Insemination Scheduling Instructions Please [...] you get your LH surge, please call [phone] between 8:00am - 12:00pm to schedule your insemination for the next day. If you call after 12pm, we may not be able to schedule your appointment. IUI s are done by appointment only. You will make 2 appointments - one for sperm drop off/collection, and one for the insemination. If you are using a frozen sample, please tell the package sorter this. You will get an arrival time and an IUI time. IUI is available at the following locations: [place]: [address] , [place] [address] Weekday availability is limited depending on staffing. Not available on weekends. Not available for those with frozen sperm. Check in location for sperm wash and IUI: 2nd floor, room 208. The sperm wash takes 60-90 minutes. [place]: [address], [place] [address] Weekday availability is limited depending on staffing. Not available on weekends. Not available for those with frozen sperm. Check in location for sperm wash: the 2nd floor Urology/Andrology. The sperm wash takes 60-90 minutes. They will tell you what time to pick out hand the sample. Check in location for IUI: 3rd floor OB Specialties Desk. (You will have to pick out hand the sample from 2nd floor Urology and bring it with you.) [place]: [address] [address] [facility] [facility], [address] [place] [address] Available every day, including weekends and holidays (except [place] and New Years.) Available for IUI using fresh and frozen samples. Check in location for sperm wash and IUI: [address] [facility]. The sperm wash takes 60-90 [...] to do another IUI: Call the front office associate to make sure you are financially cleared. Ask to speak to an NELLY to confirm your treatment plan. Important phone number: [phone] documented in this encounter [facility] 06-08-2023 History of Presen t illness [...] visit. Either the patient or their legal access representative has been informed of the risks [...] in 2015 and a section in 2017 [facility] area with. The was because of placenta previa at 37 weeks. She had no postoperative complications. After her delivery she had an IUD which had to be removed by hysteroscopy. She is otherwise healthy except for abnormal weight gain for which she has been prescribed Wegovy. She is a non-smoker. 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 [employer] ?: Yes Years together: 3 Do they have children together?: No Any other Previous Pregnancies?: No Smoking History: Never Use of alchol: occassional Use of Drugs: no Medications: no ASSESSMENT AND PLAN eNlli Carpenter is a 32 year old female Procreative management counseling (primary encounter diagnosis) Bmi 34.0-34.9,adult proceed to donor IUI I spent a total of 20 minutes on the date of the service which included preparing to see the patient, jpwf-dg-embs patient care, completing clinical documentation, obtaining and/or reviewing separately obtained history, and ordering medications, tests, or procedures Rahul Zheng MD . documented in this encounter [facility] 03-16-2023 Hospital Discharg e instructions Patient Education 03/16/2023 16:12:49 Wrist Pain, Adult, Laux-tu-Kigg Wrist Pain, Adult There are many things [...] to any changes in your symptoms. Take [id number] and prescription medicines only as told by [...] provider. Document Revised: 02/02/2020 Document Reviewed: 02/02/2020 Box Patient Education 2022 [employer] [facility] Evaluation + Plan note No data available for this section [facility] Evaluation note Diagnosis Procreative management counseling- Primary Other procreative management counseling and advice BMI 34.0-34.9,adult Body Mass Index 34.0-34.9, adult documented in this encounter [facility] note* Diagnosis Encounter for fertility planning- Primary Other specified procreative management Encounter for other genetic testing of female for procreative management documented in this encounter [facility] note* Diagnosis Treatment plan provided- Primary documented in this encounter [facility] note* Diagnosis Encounter for fertility planning- Primary Other specified procreative management documented in this encounter [facility] note* Diagnosis Procreation management investigation and testing- Primary Other investigation and testing for procreative management documented in this encounter [facility] note* Diagnosis Female infertility- Primary Female infertility of unspecified origin documented in this encounter [facility] note* Diagnosis Reproductive mgmt, infertility due to male factor- Primary Female infertility of other specified origin [facility] Diagnosis Procreative management- Primary Unspecified procreative management [facility] Diagnosis Female infertility- Primary Female infertility of unspecified origin [facility] Diagnosis Encounter for artificial insemination- Primary Artificial insemination documented [facility] this [facility] Diagnosis Encounter for test, result positive- Primary examination or test, positive result [facility] Diagnosis resulting from assisted reproductive technology in first trimester- Primary [facility] Diagnosis resulting from assisted reproductive technology in first trimester [facility] Diagnosis Treatment plan provided- Primary [facility] Diagnosis Missed menses , unspecified gestational age Encounter for supervision of normal first in first trimester [facility] Infertility, female- Primary BMI 37.0-37.9, adult Morbid obesity ([facility]) Morbid obesity documented in this encounter [facility]* Diagnosis Well woman exam with routine gynecological exam Routine gynecological examination Screening, , for anatomic survey Encounter for anatomic survey Vaginal discharge Leukorrhea, not specified as infective STD exposure Second trimester state, incidental 16 weeks gestation of Mass of right breast, unspecified quadrant Neoplasm of unspecified behavior of breast Other acne [facility] Diagnosis Encounter for anatomic survey- Primary documented [facility] this [facility] Diagnosis Encounter for anatomic survey- Primary Obesity affecting in second trimester, unspecified obesity type Class 1 obesity without serious comorbidity with body mass index (BMI) of 34.0 to 34.9 in adult, unspecified obesity type 23 weeks gestation of state, incidental [facility] this [facility] Diagnosis Second trimester state, incidental 26 weeks gestation of Diabetes mellitus screening Screening for diabetes mellitus size inconsistent with dates documented in this encounter [facility]* Diagnosis Third trimester state, incidental 29 weeks gestation of documented in this encounter [facility]* Diagnosis Third trimester state, incidental 31 weeks gestation of [facility]* Diagnosis Third trimester state, incidental 33 weeks gestation of Gestational diabetes mellitus (GDM), antepartum, gestational diabetes method of control unspecified [facility]* Diagnosis 35 weeks gestation of Third trimester state, incidental Gastroesophageal reflux in [facility]* Diagnosis 36 weeks gestation of Third trimester state, incidental [facility]* Diagnosis Third trimester state, incidental 37 weeks gestation of [facility] No data available for this section [facility] No data available for this section [facility] Reason for referral (narrative)* Diagnostic Procedure Only (Routine) - Open Specialty Diagnoses / Procedures Referred By Jose L alcocer Referred To Contact [facility] Diagnoses resulting from assisted reproductive technology in first trimester Procedures OBSTETRIC ULTRASOUND WHI US PREG UTERUS AFTER 1ST TRIMEST GESTATION Andressa Abraham APRN.CNP [id number] [place] [address] [id number] [place] [address] Referral ID Status Reason Start Date Expiration Date V isits Requested Visits Authorized [id number] Open Auto-Generate d Referral 01/20/2024 01/19/2025 1 1 T [facility] for visit Narrative* Diagnostic Procedure Only (Routine) - Closed Specialty Diagnoses / Procedures Referred By Jose L t Referred To Contact [facility] Diagnoses resulting from assisted reproductive technology in first trimester Procedures OBSTETRIC ULTRASOUND WHI US PREG UTERUS AFTER 1ST TRIMEST GESTATION Andressa Abraham APRN.CNP [id number] [place] [id number] [place] [id number] Referral ID Status Reason Start Date Expiration Date V isits Requested Visits Authorized [id number] Closed Auto-Generate d Referral 01/27/2024 03/29/[address]* Diagnostic Procedure Only (Routine) - Closed Specialty Diagnoses / Procedures Referred By Contac t Referred To Contact [facility] Diagnoses Encounter for anatomic survey Procedures OBSTETRIC ULTRASOUND WHI US PREG UTERUS AFTER 1ST TRIMEST GESTATION Tristan Gloria APRN.SUPERVISOR [employer] [id number] [facility] [place] [address] Phone: tel: fax: [facility] [address] [place] [address] Referral ID Status Reason Start Date Expiration Date V isits Requested Visits Authorized [id number] Closed Auto-Generate d Referral 05/30/2024 03/29/[address] [facility] Summary Purpose Family History No Family [...] Obstetrics and Gynecology Diagnoses Infertility, female Procedures MA OFFICE/OUTPATIENT [facility] 60 MINUTES Karen Bolanos MD [address] [place] [address] P[place]y Blanco, [address] [facility] [address] [place] [address] Referral ID Status Reason Start Date Expiration Date Visits Requested Visits Authorized [id number] Pending Review Specialty Services Required 12/28/2023 06/25/2024 1 1 Additional Source Comments INFORMATION SOURCE (unrecogn ized section and content) DATE CREATED AUTHOR 09/21/2017 [facility] Healthcare DATE CREATED AUTHOR AUTHOR'S ORGANIZ ATION 03/12/2021 [facility] DATE CREATED AUTHOR AUTHOR'S ORGANIZ ATION 03/16/2021 [facility] DATE CREATED AUTHOR AUTHOR'S ORGANIZ ATION 03/26/2022 [facility] DATE CREATED AUTHOR AUTHOR'S ORGANIZ ATION 02/29/2024 [facility] DATE CREATED AUTHOR AUTHOR'S ORGANIZ ATION 08/06/2024 [facility] DATE CREATED AUTHOR AUTHOR'S ORGANIZ ATION 09/10/2024 [facility] Special[facility] EPIC <item> Privacy Markings (unrecogniz ed section and content) Section Author: Smita Tello PROHIBITION ON REDISCLOSURE OF CONFIDENTIAL INFORMATION This notice accompanies a disclosure of information concerning a client made to you with the consent of such client. Patient Care team informatio n (unrecognized section and content) Customer Success Manager Relationship Specialty Start Date End Date Karen Bolanos MD [address] [place] [address] PCP - General Family Medicine 11/10/22 Karen Bolanos MD [address] [place] [address] PCP - [employer] 12/28/22 Customer Success Manager Relationship Specialty Start Date End Date Karen Bolanos MD [address] [place] [address] PCP - General Family Medicine 11/10/22 Karen Bolanos MD [address] [place] [address] PCP - [employer] 12/28/22 Customer Success Manager Relationship Specialty Start Date End Date Karen Bolanos MD [address] [place] [address] PCP - [facility] 11/10/22 Customer Success Manager Relationship Specialty Start Date End Date Karen Bolanos MD [address] [place] [address] PCP - [facility] Medicine 11/10/22 Customer Success Manager Relationship Specialty Start Date End Date Karen Bolanos MD [address] [place] [address] PCP - [facility] 11/10/22 Karen Bolanos MD [address] [place] [address] PCP [facility] 12/28/22 Customer Success Manager Relationship Specialty Start Date End Date Karen Bolanos MD [address] [place] [address] PCP - [facility] 11/10/22 Customer Success Manager Relationship Specialty Start Date End Date Karen Bolanos MD [address] [place] [address] PCP - [facility] Medicine 11/10/22 Customer Success Manager Relationship Specialty Start Date End Date Karen Bolanos MD [address] [place] [address] PCP - [facility] 11/10/22 Customer Success Manager Relationship Specialty Start Date End Date Karen Bolanos MD [address] [place] [address] PCP - [facility] 11/10/22 Customer Success Manager Relationship Specialty Start Date End Date Karen Bolanos MD [address] [place] [address] PCP - [facility] 11/10/22 Customer Success Manager Relationship Specialty Start Date End Date Karen Bolanos MD [address] [place] [address] PCP - [facility] 11/10/22 Customer Success Manager Relationship Specialty Start Date End Date Karen Bolanos MD [address] [place] [address] PCP - [facility] 11/10/22 Customer Success Manager Relationship Specialty Start Date End Date Karen Bolanos MD [address] [place] [address] PCP - [facility] 11/10/22 Customer Success Manager Relationship Specialty Start Date End Date Karen Bolanos MD [address] [place] [address] PCP - [facility] 11/10/22 Customer Success Manager Relationship Specialty Start Date End Date Karen Bolanos MD [address] [place] [address] PCP - [facility] 11/10/22 Customer Success Manager Relationship Specialty Start Date End Date Karen Bolanos MD [address] [place] [address] PCP - [facility] 11/10/22 Customer Success Manager Relationship Specialty Start Date End Date Karen Bolanos MD [address] [place] [address] PCP - General Family Medicine 11/10/22 Customer Success Manager Relationship Specialty Start Date End Date Karen Bolanos MD [address] [place] [address] PCP - General Family Medicine 11/10/22 Customer Success Manager Relationship Specialty Start Date End Date Karen Bolanos MD [address] [place] [address] PCP - General Family Medicine 11/10/22 Source Comments (unrecognize d section and content) In the event this informatio n is protected by the Federal Confidentiality of Alcohol and Drug Abuse Patient Records regulations: The Federal rules restrict any use of the information to criminally investigate or prosecute any alcohol or drug abuse patient.[facility] the event this information is protected by the Federal Confidentiality of Alcohol and Drug Abuse Patient Records regulations: The Federal rules restrict any use of the information to criminally investigate or prosecute any alcohol or drug abuse patient.[facility] the event this information is protected by the Federal Confidentiality of Alcohol and Drug Abuse Patient Records regulations: The Federal rules restrict any use of the information to criminally investigate or prosecute any alcohol or drug abuse patient.[facility] the event this information is protected by the Federal Confidentiality of Alcohol and Drug Abuse Patient Records regulations: The Federal rules restrict any use of the information to criminally investigate or prosecute any alcohol or drug abuse patient.[facility] the event this information is protected by the Federal Confidentiality of Alcohol and Drug Abuse Patient Records regulations: The Federal rules restrict any use of the information to criminally investigate or prosecute any alcohol or drug abuse patient.[facility] the event this information is protected by the Federal Confidentiality of Alcohol and Drug Abuse Patient Records regulations: The Federal rules restrict any use of the information to criminally investigate or prosecute any alcohol or drug abuse patient.[facility] the event this information is protected by the Federal Confidentiality of Alcohol and Drug Abuse Patient Records regulations: The Federal rules restrict any use of the information to criminally investigate or prosecute any alcohol or drug abuse patient.[facility] the event this information is protected by the Federal Confidentiality of Alcohol and Drug Abuse Patient Records regulations: The Federal rules restrict any use of the information to criminally investigate or prosecute any alcohol or drug abuse patient.[facility] the event this information is protected by the Federal Confidentiality of Alcohol and Drug Abuse Patient Records regulations: The Federal rules restrict any use of the information to criminally investigate or prosecute any alcohol or drug abuse patient.[facility] the event this information is protected by the Federal Confidentiality of Alcohol and Drug Abuse Patient Records regulations: The Federal rules restrict any use of the information to criminally investigate or prosecute any alcohol or drug abuse patient.[facility] the event this information is protected by the Federal Confidentiality of Alcohol and Drug Abuse Patient Records regulations: The Federal rules restrict any use of the information to criminally investigate or prosecute any alcohol or drug abuse patient.[facility] the event this information is protected by the Federal Confidentiality of Alcohol and Drug Abuse Patient Records regulations: The Federal rules restrict any use of the information to criminally investigate or prosecute any alcohol or drug abuse patient.[facility] the event this information is protected by the Federal Confidentiality of Alcohol and Drug Abuse Patient Records regulations: The Federal rules restrict any use of the information to criminally investigate or prosecute any alcohol or drug abuse patient.[facility] the event this information is protected by the Federal Confidentiality of Alcohol and Drug Abuse Patient Records regulations: The Federal rules restrict any use of the information to criminally investigate or prosecute any alcohol or drug abuse patient.[facility] the event this information is protected by the Federal Confidentiality of Alcohol and Drug Abuse Patient Records regulations: The Federal rules restrict any use of the information to criminally investigate or prosecute any alcohol or drug abuse patient.[facility] the event this information is protected by the Federal Confidentiality of Alcohol and Drug Abuse Patient Records regulations: The Federal rules restrict any use of the information to criminally investigate or prosecute any alcohol or drug abuse patient.[facility] the event this information is protected by the Federal Confidentiality of Alcohol and Drug Abuse Patient Records regulations: The Federal rules restrict any use of the information to criminally investigate or prosecute any alcohol or drug abuse patient.[facility] the event this information is protected by the Federal Confidentiality of Alcohol and Drug Abuse Patient Records regulations: The Federal rules restrict any use of the information to criminally investigate or prosecute any alcohol or drug abuse patient.[facility] the event this information is protected by the Federal Confidentiality of Alcohol and Drug Abuse Patient Records regulations: The Federal rules restrict any use of the information to criminally investigate or prosecute any alcohol or drug abuse patient.[facility] the event this information is protected by the Federal Confidentiality of Alcohol and Drug Abuse Patient Records regulations: The Federal rules restrict any use of the information to criminally investigate or prosecute any alcohol or drug abuse patient.[facility] Reason for Visit (unrecogniz ed section [...] EACH ALIQUOT ARTIFIC INSEMINATION INTRAUTERIN Andressa Abraham, WINDY.SUPERVISOR [employer] [address] [place] [address] Jaspal Nix [facility] [address] [place] [address] Referral ID Status Reason Start Date Expiration Date V isits Requested Visits Authorized [id number] Closed Financial Clearance Required - Self Pay Patient Cleared - True Self-Pay required payment collected Do Not Bill Insurance - SP patient 12/04/2023 03/03/2024 2 2 Specialty Diagnoses / Procedures Referred By Contac t Referred To Contact [facility] Diagnoses Encounter for other procreative management Encounter for procreative management, unspecified Procedures ARTIFIC INSEMINATION INTRAUTERIN THAWING CRYOPRESERVED SPERM/SEMEN EACH ALIQUOT Andressa Abraham APRN.SUPERVISOR [employer] [address] [place] [address] Whi Sarmad [facility] [address] [place] [id number] Referral ID Status Reason Start Date Expiration Date V isits Requested Visits Authorized [id number] Closed Patient Cleared - True Self-Pay required [...] BE BASED ON THE PRIMARY CLINICAL RECORDS. [facility] [employer] provides no warranty or guarantee of the accuracy or completeness of information in this document.
[2024-09-12 06:15] LABS: Basophils Percent Auto 0.2 % (0.2-2.0); Eosinophils Absolute Auto 0.1 10^3/uL (0.0-0.7); Eosinophils Percent Auto 0.6 % (0.9-7.0); Hematocrit 29.9 % (36.0-48.0); Hemoglobin 9.7 g/dL (12.0-16.0); Immature Granulocytes Abs Auto 0.23 10^3/uL (0.00-0.03); Immature Granulocytes Pct Auto 2.2 % (0.0-0.5); Lymphocytes Absolute Auto 2.1 10^3/uL (1.2-3.8); Mean Corpuscular HGB Conc 32.4 g/dL (29.9-35.2); Mean Corpuscular Hemoglobin 26.6 pg (26.7-34.0); Mean Corpuscular Volume 82.1 fL (81.0-99.0); Mean Platelet Volume 10.7 fL (9.5-13.5); Monocytes Absolute Auto 0.8 10^3/uL (0.3-0.8); Neutrophils Absolute Auto 7.1 10^3/uL (1.4-6.5); Platelet Count 205 10^3/uL (150-450); Red Blood Count 3.64 10^6/uL (4.20-5.40); Red Cell Distribution Width 14.5 % (11.0-15.0); White Blood Count 10.3 10^3/uL (4.0-11.0)
[2024-09-12 06:16] LABS: Bilirubin Urine NEGATIVE (NEGATIVE); Blood Urine NEGATIVE (NEGATIVE); Clarity Urine CLEAR (CLEAR); Color Urine YELLOW (YELLOW); Glucose Urine UA NEGATIVE (NEGATIVE); Ketones Urine NEGATIVE (NEGATIVE); Leukocyte Esterase Urine TRACE (NEGATIVE); Nitrite Urine NEGATIVE (NEGATIVE); Protein Urine NEGATIVE (NEG/TRACE); Specific Gravity Urine 1.015 (1.005-1.025); pH Urine 7.5 (5.0-9.0)
[2024-09-12] MEDS: FAMOTIDINE/PF 20 MG/2 ML VIAL IV (06:17)
[2024-09-12] MEDS: CITRIC ACID/SODIUM CITRATE 30 ML SOLUTION ORACIT SHOHL'S SOLN PO (06:17)
[2024-09-12] MEDS: METOCLOPRAMIDE HCL 10 MG/2 ML VIAL IVP (06:17)
[2024-09-12] MEDS: CEFAZOLIN SODIUM/DEXTROSE,ISO 2 GM/50 ML PIGGYBACK IV ×2 (06:18→14:01)
[2024-09-12] MEDS: 0.9 % SODIUM CHLORIDE 1,000 ML 1000 ML IV ×2 (06:19→07:19)
[2024-09-12 06:24] LABS: Bacteria Urine MODERATE #/HPF (NONE SEEN); Cast Seen? NONE SEEN #/LPF (NONE SEEN); Crystals Seen? None Seen #/HPF (None Seen); Mucus Urine NONE SEEN (NONE SEEN); RBC Urine 0-2 #/HPF (0-2); Squamous Epithelial Cell Urine FEW #/LPF (NONE/RARE); Urine Culture Indicated YES-LC
[2024-09-12 06:25] LABS: Amphetamine Screen Urine NEGATIVE (NEGATIVE); Barbiturates Screen Urine NEGATIVE (NEGATIVE); Benzodiazepines Screen Urine NEGATIVE (NEGATIVE); Buprenorphine Screen Urine NEGATIVE (NEGATIVE); Cannabinoid Screen Urine NEGATIVE (NEGATIVE); Cocaine Screen Urine NEGATIVE (NEGATIVE); Methadone Screen Urine NEGATIVE (NEGATIVE); Methamphetamines Screen Urine NEGATIVE (NEGATIVE); Opiate Screen Urine NEGATIVE (NEGATIVE); Oxycodone Screen Urine NEGATIVE (NEGATIVE); Phencyclidine Screen Urine NEGATIVE (NEGATIVE); Tricyclic Antidepressant Urine NEGATIVE (NEGATIVE)
--- NOTE | 2024-09-12 07:27 | P.OBHP_ITS ---
OB - H&P: HPI History of Present Illness Chief complaint: FBC : 4 Para: 2 Gestational age based on last menstrual period: 38 2/7wks Narrative: 33 yo at 38 2/7wks presents for c/s, previous c/s, ivf, gdma1 History of Present Dating criteria: LMP confirmed by 1st trimester US care: good care Ultrasounds: normal 1st trimester US and normal mid trimester US complications: gestational diabetes Labs Blood type: O (+) positive Rubella: immune RPR/VDLR: nonreactive GBS status: negative HBsAG: negative Review of Systems ROS Status of ROS: 10 or more systems reviewed and unremarkable except as noted in history and below PFS PFS Social History Little interest or pleasure in doing things: not at all Feeling down, depressed, or hopeless: not at all Meds Home Medications and Allergies Allergies Allergy/AdvReac Type Severity Reaction Status Date / Time No Known Drug Allergies Allergy Verified 08/16/24 05:51 Exam Constitutional Documenting provider has reviewed patient's vital signs: yes Common normals: no apparent distress Cardio Common normals: regular rate and regular rhythm GI Common normals: Normal to inspection, nondistended, normoactive bowel sounds present Extremity Common normals: no clubbing, cyanosis or edema and no calf tenderness Results Labs Labs: Short CBC 09/12/24 Range/Units 05:55 WBC 10.3 (4.0-11.0) 10^3/uL Hgb 9.7 L (12.0-16.0) g/dL Hct 29.9 L (36.0-48.0) % Plt Count 205 (150-450) 10^3/uL Urine 09/12/24 Range/Units 05:55 Urine Color Yellow (YELLOW) Urine Clarity Clear (CLEAR) Urine pH 7.5 (5.0-9.0) Ur Specific [place] 1.015 (1.005-1.025) Urine Protein Negative (NEG/TRACE) mg/dL Urine Glucose (UA) Negative (NEGATIVE) mg/dL OB - A/P Assessment and Plan (1) Intrauterine : (2) resulting from in-vitro fertilization: (3) Gestational diabetes mellitus: Plan iup at 38 2/7wks, ivf, gdma1-perform c/s, consent obtained, mmc reviewed, procedure reviewed, will proceed to or Urinary Catheter Management Urinary Catheter Management Urethral: Cath placed during this visit: no
[2024-09-12 07:29] LABS: Glucometer 109 mg/dL (74-106)
[2024-09-12] MEDS: LACTATED RINGER'S SOLUTION 1,000 ML 50 ML IV ×2 (08:07→08:37)
--- NOTE | 2024-09-12 08:31 | P.OBPRC_ITS ---
Procedure Pre-op/Post-op diagnoses: Pre-Op/Post-Op Diagnoses Operation Date: 09/12/24 07:30 <No data on this case meets the specified criteria> Procedure: Procedures Operation Date: 09/12/24 07:30 Actual Procedure Side Surgeon p Repeat Not Applicable Andrea Prieto DO [employer] Plans Intelligence Officer Chief: Delia Estrada Estimated blood loss (mL): 575 Disposition: PACU Anesthesia type: Spinal
--- NOTE | 2024-09-12 08:31 | PM.ONB ---
Brief Operative Note Date of procedure: 09/12/24 Pre-op diagnosis general: iup at 38 2/7wks, previous c/s, ivf Post-op diagnosis: same as pre-op Procedure: NAME OF PROCEDURE: [ section ] PROCEDURE: Patient was taken back to the Operating Room where she was given a spinal anesthesia with Duramorph without difficulty. She was prepped and draped in the normal sterile fashion. A Pfannenstiel skin incision was then made 2 cm above the symphysis pubis and carried down to underlying rectus fascia using a Bovie. The fascia was incised in the midline and extended laterally using Bryant scissors. Two Cammie clamps were placed on the superior aspect of the fascia and dissected off the underlying rectus muscles. The same was performed on the inferior aspect as well. The muscles were then in the midline. Peritoneum was identified and entered bluntly. The peritoneum was then extended superiorly and inferiorly with good visualization of the bladder. The bladder blade was inserted. A low transverse incision was made on the patient's uterus and extended laterally digitally. The was then delivered atraumatically after the bladder blade was removed in the cephalic position. The cord was clamped and cut. Cord blood was obtained. The was handed off to awaiting team. The patient's placenta was spontaneously delivered. The uterus was then exteriorized. The uterus was cleared of all clots and debris. The bladder blade was reinserted. The patient's uterine incision was closed using #0 Vicryl in a running lock fashion. Excellent hemostasis was assured. The uterus was then returned to the patient's abdomen. The patient's abdomen was copiously irrigated using warm saline. Peritoneal gutters were cleared of all clots and debris. Again excellent hemostasis was assured. The patient's peritoneum was closed using 3-0 Vicryl in a running fashion. The patient's fascia was closed using #0 Vicryl in a running fashion. The patient's skin was closed using 4-0 Vicryl subcuticularly. The patient tolerated the procedure well. Sponge, lap, and needle counts were correct x2. The patient was taken to the Recovery Room in stable condition. Anesthesia: spinal Surgeon: Andrea Prieto Microstrategy Bi Developer: Delia Estrada Estimated blood loss (mL): 575 Pathology: none sent Condition: stable Disposition: PACU Urinary Catheter Management Urinary Catheter Management Urethral: Cath placed during this visit: no
[2024-09-12] MEDS: 0.9 % SODIUM CHLORIDE 1,000 ML 125 ML IV (11:15)
--- NOTE | 2024-09-12 14:36 | PC.NURSE ---
LC into room, mom holding baby and other parent at bedside. Both pleased with delivery and infant. Mom states they told me he is tongue tied What does that mean? Discussed tongue tie, and examined in front of parents to show tight frenulum for infant. Handouts given for review. Plan to let baby nurse and declare abilities to feed himself. Parents in agreement with plan.
[2024-09-12] MEDS: KETOROLAC TROMETHAMINE 30 MG/ML VIAL IVP ×2 (15:31→21:29)
[2024-09-12 15:32] LABS: Glucometer 170 mg/dL (74-106)
[2024-09-12] MEDS: ENOXAPARIN SODIUM 40 MG/0.4 ML SYRINGE SUBQ (21:33)
[2024-09-12] MEDS: OXYCODONE HCL/ACETAMINOPHEN 5MG/325MG 1 TAB PO (23:05)
[2024-09-13] VITALS (12 sets, daily range): BP systolic 107–152; BP diastolic 60–80; PULSE 65–96; TEMP 36.4–36.8; O2SAT 99
[2024-09-13] MEDS: OXYCODONE HCL/ACETAMINOPHEN 5MG/325MG 2 TAB PO (03:08)
[2024-09-13] MEDS: KETOROLAC TROMETHAMINE 30 MG/ML VIAL IVP ×4 (03:09→23:06)
[2024-09-13 06:43] LABS: Basophils Percent Auto 0.2 % (0.2-2.0); Eosinophils Percent Auto 0.1 % (0.9-7.0); Hemoglobin 7.7 g/dL (12.0-16.0); Immature Granulocytes Abs Auto 0.28 10^3/uL (0.00-0.03); Immature Granulocytes Pct Auto 1.8 % (0.0-0.5); Lymphocytes Absolute Auto 2.5 10^3/uL (1.2-3.8); Mean Corpuscular HGB Conc 32.4 g/dL (29.9-35.2); Mean Corpuscular Hemoglobin 26.9 pg (26.7-34.0); Mean Corpuscular Volume 83.2 fL (81.0-99.0); Mean Platelet Volume 11.1 fL (9.5-13.5); Monocytes Absolute Auto 1.3 10^3/uL (0.3-0.8); Monocytes Percent Auto 8.3 % (1.7-12.0); Neutrophils Absolute Auto 11.3 10^3/uL (1.4-6.5); Neutrophils Percent Auto 73.6 % (43.0-75.0); Platelet Count 183 10^3/uL (150-450); Red Blood Count 2.86 10^6/uL (4.20-5.40); Red Cell Distribution Width 14.6 % (11.0-15.0); White Blood Count 15.4 10^3/uL (4.0-11.0)
[2024-09-13 06:47] LABS: Hematocrit 23.8 % (36.0-48.0)
--- NOTE | 2024-09-13 09:02 | P.OBPN_ITS ---
OB - PN: Subj Subjective Patient comments: no complaints [place] status: doing well [place] feeding status: exclusively Exam Constitutional Vital Signs, click to edit/add: Last Vital Signs Temp 98.2 F 09/13/24 03:14 Pulse 69 09/13/24 03:14 Resp 17 09/13/24 03:14 BP 122/69 09/13/24 03:14 Pulse Ox 99 09/12/24 15:40 O2 Del Method Room Air 09/13/24 00:30 Common normals: no apparent distress, average body habitus, oriented x3, no limitations, healthy appearing, alert and well nourished General appearance: cooperative Orientation/consciousness: Yes awake, Yes oriented to person, Yes oriented to place and Yes oriented to time HENMT Common normals: normocephalic Face and sinus: normal facial exam Nose: external nose normal Eye Common normals: EOMs intact bilaterally General eye: normal appearance of both eyes Neck & C-Spine Common normals: full ROM General: normal visual inspection Lymph Lymphatic: no lymphadenopathy noted Chest Common normals: inspection of chest normal Respiratory Common normals: normal respiratory effort, no retractions, no use of accessory muscles, clear to auscultation bilaterally and percussion normal Effort & inspection: able to speak in complete sentences Auscultation: clear to auscultation bilaterally Cardio Common normals: regular rate and regular rhythm Rate: regular rate Rhythm: regular rhythm GI Common normals: Normal to inspection, nondistended, normoactive bowel sounds present, soft to palpation and non-tender Palpation: soft Percussion: normal to percussion Common normals: no CVA tenderness Back & Pelvis Common normals: no CVA tenderness Thoracic spine/upper back: normal to inspection Lumbar spine/lower back: normal to inspection Extremity Common normals: normal to inspection and full ROM General: normal exam except as noted Neuro Common normals: oriented x3 Sensorium/orientation: awake, alert, oriented to person, oriented to place and oriented to time Psych Common normals: mental status grossly normal, thought process normal, cooperative, affect normal, speech normal, activity/motor behavior normal, d enies hallucinations, denies homicidal ideation and denies suicidal ideation Appearance: grossly normal Attitude: calm Activity/motor behavior: appropriate eye contact Speech: normal speech Thought process: normal thought process Thought content: normal thought content Results Labs Labs: Short CBC 06/17/25 Range/Units 06:12 WBC 15.4 H (4.0-11.0) 10^3/uL Hgb 7.7 L (12.0-16.0) g/dL Hct 23.8 L* (36.0-48.0) % Plt Count 183 (150-450) 10^3/uL Urinary Catheter Management Urinary Catheter Management Urethral: Cath placed during this visit: no OB - PN: A/P Assessment and Plan (1) Intrauterine : (2) resulting from in-vitro fertilization: (3) Gestational diabetes mellitus: Plan - day: 1 Plan: routine postop care Time Spent with Patient Time: Total time spent is greater than 50% in coordination of care (as documented) at patient's floor/unit and/or counseling patient: Total time spent with greater than 50% in coordination of care (as documented) at patient's floor/unit and/or counseling patient: less than 15 minutes
[2024-09-13] MEDS: DOCUSATE SODIUM 100 MG CAPSULE PO (09:23)
[2024-09-13] MEDS: ACETAMINOPHEN 500 MG TABLET 1000 MG PO ×2 (09:24→15:33)
[2024-09-13] MEDS: BUTALB/ACETAMINOPHEN/CAFFEINE 50-325-40MG TABLET 1 TAB PO (19:06)
[2024-09-14 00:10] VITALS: BP 145/78; PULSE 83
[2024-09-14] MEDS: ENOXAPARIN SODIUM 40 MG/0.4 ML SYRINGE SUBQ (01:07)
[2024-09-14] MEDS: OXYCODONE HCL/ACETAMINOPHEN 5MG/325MG 1 TAB PO ×3 (01:10→13:07)
[2024-09-14] MEDS: IBUPROFEN 400 MG TABLET 800 MG PO ×2 (06:21→15:56)
[2024-09-14 08:04] VITALS: BP 122/55; PULSE 95; TEMP 36.2
[2024-09-14 08:30] VITALS: O2SAT 99
--- NOTE | 2024-09-14 08:51 | PM.OBPN ---
OB - PN: Subj Subjective Patient comments: no complaints and pain well controlled [place] status: doing well Exam Constitutional Vital Signs, click to edit/add: Last Vital Signs Temp 97.6 F 09/13/24 09:23 Pulse 95 H 09/14/24 08:04 Resp 17 09/13/24 15:30 BP 122/55 09/14/24 08:04 Pulse Ox 99 09/13/24 15:30 O2 Del Method Room Air 09/14/24 01:10 Documenting provider has reviewed patient's vital signs: yes Common normals: no apparent distress Respiratory Common normals: normal respiratory effort and clear to auscultation bilaterally Cardio Common normals: regular rate and regular rhythm GI Common normals: Normal to inspection, nondistended, normoactive bowel sounds present Extremity Common normals: no clubbing, cyanosis or edema and no calf tenderness Urinary Catheter Management Urinary Catheter Management Urethral: Cath placed during this visit: no OB - PN: A/P Assessment and Plan (1) Intrauterine : (2) resulting from in-vitro fertilization: (3) Gestational diabetes mellitus: Plan - day: 2 Plan: routine postop care, discharge home and other (fu 1wk) Time Spent with Patient Time: Total time spent is greater than 50% in coordination of care (as documented) at patient's floor/unit and/or counseling patient: Total time spent with greater than 50% in coordination of care (as documented) at patient's floor/unit and/or counseling patient: less than 15 minutes
[2024-09-14] MEDS: DOCUSATE SODIUM 100 MG CAPSULE PO (13:06)
== END 2024-09-14 16:15 | disposition home or self-care (01) | DRG 788 ==
PROVIDERS: Admitting Provider Obstetrics & Gynecology; PCP Student in an Organized Health Care Education/Training Program; Visit Provider Obstetrics & Gynecology
PROC: 10D00Z1 Extraction of Products of Conception, Low, Open Approach (ICD-10-PCS; CPT 59514; principal; 2024-09-12 07:30)
DX: O34.211 Maternal care for low transverse scar from previous cesarean delivery (principal); O24.429 Gestational diabetes mellitus in childbirth, unspecified control; Z3A.38 38 weeks gestation of pregnancy; Z37.0 Single live birth; O89.4 Spinal and epidural anesthesia-induced headache during the puerperium
CPT/HCPCS: 36415; 62273; 64488; 80307; 81001; 85025; 86850; 86900; 86901; 87086; 94667; 94668; J0131; J0665; J0690; J1100; J1650; J1885; J2274; J2371; J2405; J2590; J2765; J3490

== ENCOUNTER 2024-09-19 07:58 | Outpatient (OUT) | payer BC, SELFPAY ==
--- OUTSIDE RECORDS SUMMARY | 2024-09-07 14:50 | XMS_ITS | Encounter Summary ---
Author Organization [facility] Address [address] [place] [address] Care Team Providers Care Ophthalmology Technician Name Role Phone Karen Bolanos MD Primary Care Provider Reason for Visit * Reason Comments Routine Visit Encounter Details Date Type Department Care Team (Late st Contact Info) Description 09/07/2024 2:50 PM EDT Routine [facility] BCP OB [address] [place] [phone] Andrea Prieto, [address] [facility] [address] [place], [place] [id number] Third trimester ([facility]); 37 weeks gestation of ([facility]) Social History Tobacco Use Types Packs/Day Years [...] Sign Reading Time Taken Comments Blood Pressure 124/76 09/07/2024 3:35 PM EDT Pulse - - Temperature - - Respiratory Rate - - Oxygen Saturation - - Inhaled Oxygen Concentration - - Weight 103 kg (227 lb) 09/07/2024 3:35 PM EDT Height - - Body Mass Index 40.21 12/28/2023 8:37 AM EDT documented in this encounter Progress Notes * KAMARI Zavala - 09/07/2024 2:50 PM EDT Reason for Appointment: Patient ID: [...] 12/28/23: 5' 3 . Weight as of 08/31/24: 225 lb. BP: Patient's last menstrual period was 12/19/2023. ASSESSMENT & PLAN ICD-10-CM 1. Third trimester Z34.93 POCT urinalysis dipstick manually resulted 2. 37 weeks gestation of Z3A.37 Return OB: Patient presents today for a routine obstetrics appointment. Patient is currently 37w4d . Patient states she is doing well [...] Documented by KAMARI Zavala on behalf of: Andrea Prieto DO documented in this encounter Plan of Treatment Not on file documented as of this encounter Goals Goal Patient Goal Type Associated Problems Recent Progress Patient-Stated? Author Reminders Care Plan OB Reminders No Open Scheduling, Background documented as of this encounter Procedures Procedure Name Priority Date/Time Associated Diagnosis Comments POCT URINALYSIS DIPSTICK Routine 09/07/2024 3:22 PM EDT Third trimester ([facility]) documented in this encounter Results * POCT urinalysis dipstick manually resulted (09/07/2024 3:22 PM EDT) Color, UA Yellow Clarity, UA Clear Glucose, UA Negative Negative - 2000(110) ++++ mg/dL Bilirubin, UA Negative Negative - 4(70) +++ mg/dL Ketones, UA Negative Negative - 160(16) ++++ mg/dL Spec Grav, UA 1.020 1 - 1.03 Blood, UA Negative Negative - 50 Mukesh/mcL pH, UA 7.0 5 - 9 Protein, UA Negative Negative - 2000(20) ++++ mg/dL Urobilinogen, UA 0.2 0.2 - 12 mg/dL Leukocytes, UA Negative Negative - 500+++ Shannon/mcL Nitrite, UA Negative Negative - Positive Urine 09/07/2024 3:22 PM EDT Andrea Prieto DO POINT OF CARE TEST ENTER/EDIT OR DERABLES Final Result documented in this encounter Visit Diagnoses Diagnosis Third trimester ([facility]) state, incidental 37 weeks gestation of ([facility]) documented in this encounter Additional Health Concerns Active Problems Noted Date Diagnosed Date OB Reminders 03/28/2024 documented as of this encounter Care Teams Ophthalmology Technician Relationship Specialty Start Date End Date Karen Bolanos MD [address] [place] [address] PCP - General Family Medicine 11/10/22 documented as of this encounter
--- OUTSIDE RECORDS SUMMARY | 2024-09-19 08:03 | XMS_ITS | Encounter Summary ---
Author Organization [facility] Address [facility] [place] [address] Care Team Providers Care Supervisor Mattress And Boxsprings Name Role Phone Unavailable Primary Care Provider Unavailabl e Source Comments In the event this information is protected by the Federal Confidentiality of Alcohol and Drug AbusePatient Records regulations: The Federal rules restrict any use of the information to criminally investigate or prosecute any alcohol or drug abuse patient.[facility] Encounter Details Date Type Department Care Team (Latest Contact Info) Description 12/01/2023 Get Medical Advice Reproductive Endocrinology Infertility [address] [place] [address] Andressa Abraham APRN.MURAL ARTIST [address] [place] [address] Financial clearance Social History Tobacco Use Types [...] is lower risk 5 06/08/2023 Data from: https://www.neighborhoodatlas.medicine.[facility].edu/. Last address used for calculation [address] [...]
--- OUTSIDE RECORDS SUMMARY | 2024-09-19 08:03 | XMS_ITS | Encounter Summary ---
Author Organization [facility] Address [address] [place] [address] Care Team Providers Care Game Agent Name Role Phone Karen Bolanos MD Primary Care Provider [phone] Karen Bolanos MD Unavailable [phone] Encounter Details Date Type Department Care Team (Late st Contact Info) Description 03/14/2024 Abstract [facility] [address] [place] [address] Andrea Prieto, [address] [place], [place] [id number] Social History Tobacco Use Types Packs/Day Years [...] on filedocumented in this encounter Care Teams Game Agent Relationship Specialty Start Date End Date Karen Bolanos MD [address] [place] [address] PCP - General Family Medicine 11/10/22 Karen Bolanos MD [address] [place] [address] PCP - Nish Medina 12/28/22 5 documented as of this encounter
--- OUTSIDE RECORDS SUMMARY | 2024-09-19 08:03 | XMS_ITS | Encounter Summary ---
Author Organization [facility] Address [address] [place] [address] Care Team Providers Care Retirement Village Manager Name Role Phone Karen Bolanos MD Primary Care Provider [phone] Karen Bolanos MD Unavailable [phone] Encounter Details Date Type Department Care Team (Late st Contact Info) Description 03/11/2024 Abstract [facility] [address] [place] [address] Andrea Prieto, [address] [place], [place] [id number] Social History Tobacco Use Types Packs/Day Years [...] on filedocumented in this encounter Care Teams Retirement Village Manager Relationship Specialty Start Date End Date Karen Bolanos MD [address] [place] [address] PCP - General Family Medicine 11/10/22 Karen Bolanos MD [address] [place] [address] PCP - Nish Medina 12/28/22 5 documented as of this encounter
--- OUTSIDE RECORDS SUMMARY | 2024-09-19 08:03 | XMS_ITS | Encounter Summary ---
Author Organization [facility] Address [address] [place] [address] Care Team Providers Care Agricultural Equipment Sales Engineer Name Role Phone Karen Bolanos MD Primary Care Provider Encounter Details Date Type Department Care Team (Late st Contact Info) Description 08/29/2024 Abstract [facility] [address] [place] [id number] Andrea Prieto, DO [address] [place], [facility] Social History Tobacco Use Types Packs/Day [...] documented as of this encounter Care Teams Agricultural Equipment Sales Engineer Relationship Specialty Start Date End Date Karen Bolanos MD [address] [place] [address] PCP - General Family Medicine 11/10/22 documented as of this encounter
--- OUTSIDE RECORDS SUMMARY | 2024-09-19 08:03 | XMS_ITS | Encounter Summary ---
Author Organization [facility] Address [address] [place] [address] Care Team Providers Care Aviation Maintenance Technician Name Role Phone Karen Bolanos MD Primary Care Provider [phone] Encounter Details Date Type Department Care Team (Late st Contact Info) Description 09/10/2024 Clinisync Result Encounter [facility] External Department Unsolicited Nina Prieto, DO [address] [place], [place] [id number] Social History Tobacco Use Types Packs/Day Years [...] Diagnosis Comments US OB BPP W NON-STRESS 09/10/2024 2:18 PM EDT documented in this encounter Results * US OB BPP W NON-STRESS (09/10/2024 2:18 PM EDT) Anatomical Region Laterality Modality Other 09/10/2024 2:18 PM EDT Narrative 09/10/2024 2:20 [place] [address] Ultrasound Report Signed Patient: EDUAR CARPENTER MR#: [id number] : 1990 Acct:[id number] Age/Sex: 34 / F ADM Date: 09/10/24 Loc: [facility] 250-[address]: Nina Prieto D.O. Ordering Physician: Nina Prieto D.O. Date of Service: 09/10/24 Procedure(s): US OB BPP w non-stress Accession Number(s): [id number] cc: Nina Prieto D.O.; NORBERTO BOLANOS [place] [id number] Patient Name: EDUAR CARPENTER MRN: [id number] date: 1990 Sex: F Assigned Patient Location: [facility] Current Patient Location: [facility] Accession/Order Number: [id number] Exam Date: 09/10/2024 14:12 Report Date: 09/10/2024 14:18 At the request of: NINA PRIETO DO [...] Nava M.D. 09/10/2024 2:18 PM Dictation Location: RADIO-PC-20 Electronically authenticated by: [id number] Y Date: 09/10/2024 14:18 Dictated By: Deepak Nava D.O. Signed By: 09/10/24 1420 DD/ 1418 TD/TT: Alteration Specialist: Procedure Note Radiology, Radiologist, - 09/10/2024 [place] [address] Ultrasound Report Signed Patient: EDUAR CARPENTER KMR#: [id number] : 1990Acct:[id number] Age/Sex: 34 / FADM Date: 09/10/24 Loc: [place] [address]: Nina Prieto D.O. Ordering Physician: Nina Prieto D.O. Date of Service: 09/10/24 Procedure(s): US OB BPP w non-stress Accession Number(s): [id number] cc: Nina Prieto D.O.; NORBERTO BOLANOS [place] [address] Patient Name: EDUAR CARPENTER MRN: [id number] date: 1990 Sex: F Assigned Patient Location: [facility] Current Patient Location: [facility] Accession/Order Number: [id number] Exam Date: 09/10/2024 14:12 Report Date: 09/10/2024 14:18 At the request of: NINA PRIETO DO Procedure: US OB BPP w non-stress Ultrasound biophysical profile HISTORY: Gestational diabetes Adequate breathing movement, gross body movement, tone and amniotic fluid volume for total score of 8 out of 8. The amniotic fluidindex is 17.2cm within normal limits. The heart rate 132 bpm. US/US OB BPP w non-stress IMPRESSION: Adequate ultrasound biophysical profile Impression dictated by: Deepak Nava M.D. 09/10/2024 2:18 PM Dictation Location: [employer] ([email or web address]) Electronically authenticated by: [id number] Y Date: 4:18 Dictated By: Deepak Nava D.O. Signed By:09/10/24 1420 DD/ 1418 TD/TT: Alteration Specialist: us Nina Prieto DO [facility] Final Result documented in this encounter Visit Diagnoses Not on filedocumented in this encounter Additional Health Concerns Active Problems Noted Date Diagnosed Date OB Reminders 03/28/2024 documented as of this encounter Care Teams Aviation Maintenance Technician Relationship Specialty Start Date End Date Karen Bolanos MD [address] [place] [address] PCP - General Family Medicine 11/10/22 documented as of this encounter
--- OUTSIDE RECORDS SUMMARY | 2024-09-19 08:03 | XMS_ITS | Encounter Summary ---
Author Organization [facility] Address [address] [place] [address] Care Team Providers Care Fisher Troll Line Name Role Phone Karen Bolanos MD Primary Care Provider [phone] Encounter Details Date Type Department Care Team (Late st Contact Info) Description 07/12/2024 Abstract [facility] [address] [place] [address] Karyna Craig PA [address] [place], [facility] Social History Tobacco Use Types Packs/Day [...] documented as of this encounter Care Teams Fisher Troll Line Relationship Specialty Start Date End Date Karen Bolanos MD [address] [place] [address] PCP - General Family Medicine 11/10/22 documented as of this encounter
--- OUTSIDE RECORDS SUMMARY | 2024-09-19 08:03 | XMS_ITS | Encounter Summary ---
Author Organization [facility] Address [facility] [place] [address] Care Team Providers Care Piece Goods Packer Name Role Phone Unavailable Primary Care Provider [...] Description 11/23/2023 Patient Msg Reproductive Endocrinology Infertility [address] [place] [address] Andressa Abraham APRN.LANDSCAPING CREW LEADER [address] [place] [address] IUI Scheduling Instructions Social History Tobacco Use [...] risk 5 06/08/2023 Data from: https://www.neighborhoodatlas.medicine.[facility].edu/. Last address used for calculation [...]
--- OUTSIDE RECORDS SUMMARY | 2024-09-19 08:03 | XMS_ITS | Clinical Summary ---
Author Organization [facility] Address [address] [place] [address] Phone Care Team Providers Care Entry Level Electrician Name Role Phone Karen Bolanos MD Primary Care Provider [phone] Social History Tobacco Use Types Packs/Day Years [...] of Treatment Not on file Care Teams Entry Level Electrician Relationship Specialty Start Date End Date Karen Bolanos MD [address] [place] [address] PCP - General 03/11/21
--- OUTSIDE RECORDS SUMMARY | 2024-09-19 08:03 | XMS_ITS | Encounter Summary ---
Author Organization [facility] Address [address] [facility] [place] [address] Care Team Providers Care Commercial Green Retrofit Architect Name Role Phone Karen Bolanos MD Primary Care Provider Karen Bolanos MD Unavailable [phone] Encounter Details Date Type Department Care Team (Late st Contact Info) Description 11/10/2022 Abstract [facility] [address] [place] [address] Karen Bolanos MD [address] [place] [address] Social History Tobacco Use Types Packs/Day Years [...] on filedocumented in this encounter Care Teams Commercial Green Retrofit Architect Relationship Specialty Start Date End Date Karen Bolanos MD [address] [place] [address] PCP - General Family Medicine 11/10/22 Karen Bolanos MD [address] [place] [address] PCP - Nish Medina 12/28/22 5 documented as of this encounter
--- OUTSIDE RECORDS SUMMARY | 2024-09-19 08:03 | XMS_ITS | Encounter Summary ---
Author Organization [facility] Address [address] [place] [address] Care Team Providers Care Architectural Design Professor Name Role Phone Karen Bolanos MD Primary Care Provider [phone] Encounter Details Date Type Department Care Team (Late st Contact Info) Description 09/07/2024 Abstract [facility] OB [address] [place] [id number] Andrea Prieto, DO [address] [place], [facility] Social History Tobacco Use Types Packs/Day [...] documented as of this encounter Care Teams Architectural Design Professor Relationship Specialty Start Date End Date Karen Bolanos MD [address] [place] [address] PCP - General Family Medicine 11/10/22 documented as of this encounter
--- OUTSIDE RECORDS SUMMARY | 2024-09-19 08:03 | XMS_ITS | Encounter Summary ---
Author Organization [facility] Address [address] [place] [address] Care Team Providers Care Hand Cloth Examiner Name Role Phone Karen Bolanos MD Primary Care Provider [phone] Encounter Details Date Type Department Care Team (Late st Contact Info) Description 09/16/2024 Patient Outreach [facility] [address] [place] [address] Karyna Larkin, TRACK AND FIELD COACH [address] [place] [address] Social History Tobacco Use Types Packs/Day Years Used Date Smoking Tobacco: Never Smokeless Tobacco: Never Alcohol Use Standard Drinks/Week Comments Yes 0 (1 standard drink = 0.6 oz pure alcohol) 1-2 drinks less than monthly in the past year, Caffeine intake: 1-2 cups per day PHQ-2 Answer Date Recorded Patient Health Questionnaire-2 Score 0 09/16/2024 Estimated Date of Delivery Comme nts Yes 09/24/2024 Based on last me nstrual period of 12/19/2023 Sex and Gender Information Value Date Recorded Sex Assigned at Female 11/25/2022 10:05 AM EDT Legal Sex Female 7:17 PM EDT Gender Identity Female 06/11/2022 7:17 PM EDT Sexual Orientation Lesbian 01/12/2023 5: 14 PM EDT documented as of this encounter Functional Status * Over the past 2 weeks, how often have you been bothered by any of the following problems? Question Answer Date of Assessment Author Little interest or pleasure in doing things Not at all 09/16/2024 9:49 AM EDT Karyna Larkin LPN Feeling down, depressed, or hopeless Not at all 09/16/2024 9:49 AM EDT Karyna Larkin LPN Patient Health Questionnaire -2 Score 0 09/16/2024 9:49 AM EDT Karyna Larkin LPN documented as of this encounter Progress Notes * Karyna Larkin LPN - 09/16/2024 9:28 AM EDT Images from the original note were not included. Flowsheet Row Patient Outreach from 09/16/2024 in [facility] with Karyna Larkin LPN Hospital Information ED, Hospital or Prison Facility Discharge? Hospital Patient has been contacted within two business days of discharge Yes Diagnosis Discharge Date 09/14/24 Discharged To: Home Setting Discharge Hospital [facility] Engagement Call Start Time 919 Admission Date 09/12/24 Medications Discharge medications reviewed and reconciled from hospital? Yes Is the patient having any side effects they believe may be caused by any medication additions or changes? No Does the patient have all medications ordered at discharge? Yes Nursing Interventions No intervention needed Is the patient taking all medications as directed (includes completed medication regime)? Yes Nursing Interventions Nurse provided patient education Appointments Does the patient have a primary care provider? Yes Does the patient have any upcoming specialty appointments? No [PPV and PCP visit encouraged] Self Management Patient Teaching Does the patient have access to their discharge instructions? Yes Nursing Interventions Reviewed instructions with patient What is the patient's perception of their health status since discharge? Improving Is the patient/caregiver able to teach back the hierarchy of who to call/visit for symptoms/problems? PCP, Specialist, Home Health nurse, Urgent Care, ED, 911 Yes Wrap Up Call End Time 0930 CHEL Complete. Call to pt. Pt reports pain is controlled with Ibuprofen and Percocet Q8HR PRN. Reinforced s/s of infection, pt denies and verbalized understanding. Pt describes bleeding as light and denies any clots. Bowels are regular with Colace. Pt denies any depression or difficulty coping at this time. Pt denies any questions, concerns or needs today. Pt reports she has all baby items and baby's needs are met. Pt is breast feeding and baby has first laundry worker appt today 09/16/2024. Meds reconciled. Pt encouraged to schedule PPV. documented in this encounter Plan of Treatment Not on file documented as of this encounter Goals Goal Patient Goal Type Associated Problems Recent Progress Patient-Stated? Author Reminders Care Plan OB Reminders No Open Scheduling, Background documented as of this encounter Visit Diagnoses Diagnosis delivery delivered ([facility]) delivery, without mention of indication, delivered, with or without mention of antepartum condition documented in this encounter Additional Health Concerns Active Problems Noted Date Diagnosed Date OB Reminders 03/28/2024 documented as of this encounter Care Teams Hand Cloth Examiner Relationship Specialty Start Date End Date Karen Bolanos MD [address] [place] [address] PCP - General Family Medicine 11/10/22 documented as of this encounter
--- OUTSIDE RECORDS SUMMARY | 2024-09-19 08:03 | XMS_ITS | Encounter Summary ---
Author Organization [facility] Address [address] [place] [address] Care Team Providers Care Well Logging Operator Mud Analysis Name Role Phone Karen Bolanos MD Primary Care Provider Encounter Details Date Type Department Care Team (Late st Contact Info) Description 09/12/2024 Clinisync Result Encounter [facility] External Department Unsolicited Andrea Prieto, DO [address] [place], [place] [id number] Social History Tobacco Use Types Packs/Day Years [...] Procedure Name Priority Date/Time Associated Diagnosis Comments [facility] DRUG SCREEN RAPID (URINE) Routine 09/12/2024 5:55 AM EDT [facility] URINALYSIS, WITH MICROSCOPIC Routine 09/12/2024 5:55 AM EDT ALL CBC WITH AUTO DIFF Routine 09/12/2024 5:55 AM EDT documented in this encounter Results * TB DRUG SCREEN RAPID (URINE) (09/12/2024 5:55 AM EDT) CANNABINOID SCREEN URINE NEGATIVE NEGATIVE TBH PHENCYCLIDINE SCREEN URINE NEGATIVE NEGATIVE TBH COCAINE SCREEN URINE NEGATIVE NEGATIVE TBH METHAMPHETAMINES SCREEN URINE NEGATIVE NEGATIVE TBH OPIATE SCREEN URINE NEGATIVE NEGATIVE TBH AMPHETAMINE SCREEN URINE NEGATIVE NEGATIVE TBH BENZODIAZEPINES SCREEN URINE NEGATIVE NEGATIVE TBH TRICYCLIC ANTIDEPRESSANT URINE NEGATIVE NEGATIVE TBH METHADONE SCREEN URINE NEGATIVE NEGATIVE TBH BARBITURATES SCREEN URINE NEGATIVE NEGATIVE TBH OXYCODONE SCREEN URINE NEGATIVE NEGATIVE TBH BUPRENORPHINE SCREEN URINE NEGATIVE NEGATIVE TBH Comment: DRUG CLASS TEST SYSTEM CUT-OFF CONCENTRATIONS ARE FOLLOWS: AMP (Amphetamine): 500 ng/mL BAR (Barbiturates): 200 ng/mL BZO (Benzodiazepines): 150 ng/mL BUP (Buprenorphine): 10 ng/mL ROMAN (Cocaine): 150 ng/mL mAMP (Methamphetamine): 500 ng/mL MTD (Methadone): 200 ng/mL OPI (Opiates): 100 ng/mL OXY (Oxycodone): 100 ng/mL PCP (Phencyclidine): 25 ng/mL THC (Cannabinoids): 50 ng/mL TCA (Trycyclic Antidepressants): 300 ng/mL 09/12/2024 5:55 AM EDT 09/12/2024 6:08 AM EDT Narrative [facility] - 09/12/2024 6:25 AM EDT us Andrea Conner DO [facility] Final Result [facility] * (ABNORMAL) [facility] URINALYSIS, WITH MICROSCOPIC (09/12/2024 5:55 AM EDT) COLOR URINE YELLOW YELLOW TBH CLARITY URINE CLEAR CLEAR TBH SPECIFIC GRAVITY URINE 1.015 1.005 - 1.025 TBH PH URINE 7.5 5.0 - 9.0 TBH PROTEIN URINE NEGATIVE NEG/TRACE mg/dL TBH GLUCOSE URINE UA NEGATIVE NEGATIVE mg/dL TBH BILIRUBIN URINE NEGATIVE NEGATIVE TBH KETONES URINE NEGATIVE NEGATIVE mg/dL TBH BLOOD URINE NEGATIVE NEGATIVE TBH NITRITE URINE NEGATIVE NEGATIVE TBH UROBILINOGEN URINE 1.0 0.2 - 1.0 EU/dL TBH LEUKOCYTE ESTERASE URINE TRACE(A) NEGATIVE TBH TBH WBC 2-5(A) NONE SEEN #/HPF TBH TBH RBC 0-2 0 - 2 #/HPF TBH BACTERIA URINE MODERATE(A) NONE SEEN #/HPF TBH MUCUS URINE NONE SEEN NONE SEEN TBH SQUAMOUS EPITHELIAL CELL URINE FEW(A) NONE/RARE #/LPF TBH CRYSTALS SEEN? None Seen None Seen #/HPF TBH CAST SEEN? NONE SEEN NONE SEEN #/LPF TBH URINE CULTURE INDICATED YES-LC TBH 09/12/2024 5:55 AM EDT 09/12/2024 6:08 AM EDT Narrative CL[facility] - 09/12/2024 6:24 AM EDT Andrea Prieto DO CL[facility] Final Result [facility] * (ABNORMAL) ALL CBC WITH AUTO DIFF (09/12/2024 5:55 AM EDT) Pathologist [facility] TB WBC 10.3 4.0 - 11.0 10 3/uL TBH TB RBC 3.64(L) 4.20 - 5.40 10 6/uL TBH TBH HGB 9.7(L) 12.0 - 16.0 g/dL TBH TBH HCT 29.9(L) 36.0 - 48.0 % TBH TBH MCV 82.1 81.0 - 99.0 fL TBH TBH MCH 26.6(L) 26.7 - 34.0 pg TBH TBH MCHC 32.4 29.9 - 35.2 g/dL TBH TBH RDW 14.5 11.0 - 15.0 % TBH TBH PLT 205 150 - 450 10 3/uL TBH TBH MPV 10.7 9.5 - 13.5 fL TBH NEUTROPHILS PERCENT AUTO 69.0 43.0 - 75.0 % TBH LYMPHOCYTES PERCENT AUTO 20.0(L) 20.5 - 60.0 % TBH MONOCYTES PERCENT AUTO 8.0 1.7 - 12.0 % TBH TBH EO % 0.6(L) 0.9 - 7.0 % TBH BASOPHILS PERCENT AUTO 0.2 0.2 - 2.0 % TBH IMMATURE GRANULOCYTES PCT AUTO 2.2(H) 0.0 - 0.5 % TBH NEUTROPHILS ABSOLUTE AUTO 7.1(H) 1.4 - 6.5 10 3/uL TBH LYMPHOCYTES ABSOLUTE AUTO 2.1 1.2 - 3.8 10 3/uL TBH MONOCYTES ABSOLUTE AUTO 0.8 0.3 - 0.8 10 3/uL TBH TBH EO # 0.1 0.0 - 0.7 10 3/uL TBH BASOPHILS ABSOLUTE AUTO 0.0 0.0 - 0.1 10 3/uL TBH IMMATURE GRANULOCYTES ABS AUTO 0.23(H) 0.00 - 0.03 10 3/uL TBH 09/12/2024 5:55 AM EDT 09/12/2024 6:08 AM EDT Narrative CLINISY[facility] - 09/12/2024 6:16 AM EDT us Andrea Conner DO [facility] documented in this encounter Visit Diagnoses Not on filedocumented in this encounter Additional Health Concerns Active Problems Noted Date Diagnosed Date OB Reminders 03/28/2024 documented as of this encounter Care Teams Well Logging Operator Mud Analysis Relationship Specialty Start Date End Date Karen Bolanos MD [address] [place] [address] PCP - General Family Medicine 11/10/22 documented as of this encounter
--- OUTSIDE RECORDS SUMMARY | 2024-09-19 08:03 | XMS_ITS | Encounter Summary ---
Author Organization [facility] Address [facility] [place] [address] Care Team Providers Care Sock Drier Name Role Phone Unavailable Primary Care Provider Unavailabl e Source Comments In the event this information is protected by the Federal Confidentiality of Alcohol and Drug AbusePatient Records regulations: The Federal rules restrict any use of the information to criminally investigate or prosecute any alcohol or drug abuse patient.[facility] Reason for Visit * Reason Comments Can they order the donor sperm samples pauline pt rt call Encounter Details Date Type Department Care Team (Late st Contact Info) Description 10/29/2023 Telephone Reproductive Endocrinology Infertility [address] [place] [address] Andressa Abraham APRN.OXYGEN SYSTEM TESTER [address] [facility] [address] [place] [address] Can they order the donor sperm samples; [...] is lower risk 5 06/08/2023 Data from: https://[email or web address].medicine.[email or web address] Last address used for calculation [address] [...]
--- OUTSIDE RECORDS SUMMARY | 2024-09-19 08:03 | XMS_ITS | Encounter Summary ---
Author Organization [facility] Address [address] [facility] [place] [address] Care Team Providers Care Internal Medicine Nurse Practitioner Name Role Phone Karen Bolanos MD Primary Care Provider [phone] Karen Bolanos MD Unavailable [phone] Encounter Details Date Type Department Care Team (Late st Contact Info) Description 03/09/2024 Abstract [facility] [address] [place] [id number] Andrea Prieto, [address] [place], [place] [id number] Social History Tobacco Use Types Packs/Day Years [...] on filedocumented in this encounter Care Teams Internal Medicine Nurse Practitioner Relationship Specialty Start Date End Date Karen Bolanos MD [address] [place] [address] PCP - General Family Medicine 11/10/22 Karen Bolanos MD [address] [place] [address] PCP - Nish Medina 12/28/22 5 documented as of this encounter
--- OUTSIDE RECORDS SUMMARY | 2024-09-19 08:03 | XMS_ITS | Clinical Summary ---
Author Organization [facility] Healthcare Address [address] [place] [address] Care Team Providers Care Green Plumber Name Role Phone Karen Bolanos MD Primary Care Provider [phone] Allergies No known active allergies Medications omeprazole (PriLOSEC) [address] capsuleIndicati ons:Gastroesoph ageal Reflux Disease,Heartbu rn Take 1 capsule (20 mg) by mouth in the morning. Take before meals. Do not crush or chew. 30 capsule 3 08/25/19 25 025 Active MV-Min-Fe Fum-FA-DHA ( 1 PO) Take 1 tablet by mouth Daily Active ibuprofen 800 MG tablet Take 800 mg by mouth in the morning and 800 mg in the evening and 800 mg before bedtime. PRN. 09/15/19 25 Active oxyCODONE-aceta minophen (Percocet) 5-325 MG tablet Take 1 tablet by mouth every 8 (eight) hours if needed 09/15/19 25 Active clindamycin (Cleocin-T) 1 % lotionIndicatio ns:Other acne Apply topically 2 (two) times a day 60 mL 04/19/19 25 025 Discontinued Alcohol Swabs (Alcohol Prep Pad) 70 % padsIndications :Gestational diabetes mellitus (GDM), antepartum, gestational diabetes method of control unspecified (HHS-HCC),[place] keara glucose tolerance test Apply 1 Pad topically Daily Use four times daily to check FSBS. 150 each 3 07/13/19 25 025 Discontinued Blood Glucose Monitoring Suppl (D-Care Glucometer) w/Device kitIndications: Gestational diabetes mellitus (GDM), antepartum, gestational diabetes method of control unspecified ([facility]),[place] keara glucose tolerance test 1 kit Daily Use [...] episode of recurrent major depressive disor dariela 12/28/2023 Restless leg 12/28/2023 Estimated Date of Delivery Comme nts Yes 09/24/2024 Based on last me nstrual period of 12/19/2023 Encounters Date Type Department Care Team Description 09/16/2024 Patient Outreach [facility] [address] [phone] Karyna Larkin LPN 09/13/2024 Clinisync Result Encounter NOMS External Department Unsolicited Nina Prieto, 09/12/2024 Clinisync Result Encounter NOMS External Department Unsolicited Nina Prieto, 09/10/2024 Clinisync Result Encounter NOMS External Department Unsolicited Nina Prieto, 09/07/2024 2:50 PM EDT Routine [facility] [address] [address] Nina Prieto, DO Third trimester ([facility]); 37 weeks gestation of ([facility]) 09/07/2024 Abstract [facility] OB [address] [place] [address] Nina Prieto, DO 09/04/2024 Clinisync Result Encounter NOMS External Department Unsolicited Nina Prieto, DO 08/31/2024 11:20 AM EDT Routine [facility] OB [address] [place] [address] Karyna Craig PA 36 weeks gestation of ([facility]); Third trimester ([facility]) 08/31/2024 Bamboo flowsheet [facility] OB [address] [place] [address] Karyna Craig PA 08/29/2024 Abstract [facility] OB [address] [place] [address] Nina Prieto, DO 08/27/2024 Clinisync Result Encounter [facility]S External Department Unsolicited Nina Prieto, DO 08/24/2024 Telephone [facility] [address] [place] [address] Shanika Rubi MA 08/23/2024 2:40 PM EDT Routine [facility] OB [address] [place] [address] Nina Prieto, DO 35 weeks gestation of ([facility]); Third trimester ([facility]); Gastroesophageal reflux in ([facility]) 08/23/2024 Bamboo flowsheet [facility] OB [address] [facility] [place] [address] Nina Prieto, DO 08/20/2024 Clinisync Result Encounter [facility]OMS External Department Unsolicited Nina Prieto, DO 08/19/2024 Telephone [facility] OB [address] [place] [address] Nina Prieto, DO 08/14/2024 Clinisync Result Encounter NOMS External Department Unsolicited Nina Prieto, DO 08/14/2024 Clinisync Result Encounter NOMS External Department Unsolicited Nina Prieto, DO 08/09/2024 Abstract [facility] OB [address] [place] [address] Nina Prieto, DO 08/08/2024 2:10 PM EDT Routine [facility] OB [address] [address] Nina Prieto, Third trimester ([facility]); 33 weeks gestation of ([facility]); Gestational diabetes mellitus (GDM), antepartum, gestational diabetes method of control unspecified ([facility]) 08/08/2024 Bamboo flowsheet [facility] OB [address] [address] Nina Prieto, DO 08/01/2024 Telephone [facility] OB [address] [address] Nina Prieto, DO 07/25/2024 10:40 AM EDT Routine [facility] OB [address] [place] [address] [place] [address] Steffanie Gerard, ABDI Third trimester ([facility]); 31 weeks gestation of ([facility]) 07/25/2024 Bamboo flowsheet [facility] OB [address] [address] Steffanie Gerard, ABDI 07/12/2024 Abstract [facility] OB [address] [address] Karyna Craig PA 07/12/2024 Telephone [facility] [address] [address] Karyna Craig PA 07/11/2024 11:00 AM EDT Routine [facility] [address] [place] [address] Nina Prieto DO Third trimester ([facility]); 29 weeks gestation of ([facility]); Gestational diabetes mellitus (GDM), antepartum, gestational diabetes method of control unspecified ([facility]) 07/11/2024 10:30 AM EDT Ancillary Procedure [facility] [address] [place] [address] 07/08/2024 Clinisync Result Encounter NOMS External Department Unsolicited Karyna Craig PA 06/22/2024 1:20 PM EDT Routine [facility] OB [address] [place] [address] [place] [address] Nina Prieto DO Second trimester ([facility]); 26 weeks gestation of ([facility]); Diabetes mellitus screening; size inconsistent with dates ([facility]) 06/22/2024 Bamboo flowsheet [facility] [address] [place] [address] Nina Prieto DO from Last 3 Months Immunizations Immunization Administration Dates Next Due DTaP 02/08/1993, 2,1991,1991 DTaP, Unspecified 02/08/1993, 2,1991,1991 Hep B, Adolescent or Pediatric 12/08/2003 HiB, unspecified 02/08/1993, 2,1991,1991 Hib (HbOC) 02/08/1993, 2,1991,1991 Influenza, injectable, quadrivalent 06/15/2023 Influenza, injectable, quadr ivalent, preservative free 12/10/2016 MMR 09/13/2023,12/08/2003,10/27/1996 Novel [id number], preservative-free 02/16/2009 Polio, Unspecified 02/08/1993,1991, 992 Tetanus [...] Pressure 124/76 09/07/2024 3:35 PM EDT Pulse 76 12/28/2023 8:37 AM EDT Temperature 37 C (98.6 F) 12/28/2023 8:37 AM EDT Respiratory Rate - - Oxygen Saturation 98% 12/28/2023 8:37 AM EDT Inhaled Oxygen Concentration - - Weight 103 kg (227 lb) 09/07/2024 3:35 PM EDT Height 160 cm (5' 3 ) 12/28/2023 8:37 AM EDT Body Mass Index 40.21 12/28/2023 8:37 AM EDT Plan of Treatment Health Maintenance [...] Procedure Name Priority Date/Time Associated Diagnosis Comments ALL CBC WITH AUTO DIFF Routine 6:12 AM EDT TBH DRUG SCREEN RAPID (URINE) Routine 09/12/2024 5:55 AM EDT HMHP URINALYSIS, WITH MICROSCOPIC Routine 09/12/2024 5:55 AM EDT ALL CBC WITH AUTO DIFF Routine 5:55 AM EDT US OB BPP W NON-STRESS 09/10/2024 2:18 PM EDT POCT URINALYSIS DIPSTICK Routine 09/07/2024 3:22 PM EDT Third trimester ([facility]) US OB BPP W NON-STRESS 09/04/2024 9:38 AM EDT POCT URINALYSIS DIPSTICK Routine 08/31/2024 11:59 AM EDT 36 weeks gestation of ([facility]) Third trimester ([facility]) US OB BPP W NON-STRESS 08/27/2024 2:00 PM EDT POCT URINALYSIS DIPSTICK Routine 08/23/2024 3:11 PM EDT 35 weeks gestation of ([facility]) Third trimester ([facility]) US OB BPP W NON-STRESS 08/20/2024 1:30 PM EDT US OB GROWTH 08/14/2024 9:06 AM EDT US OB BPP W NON-STRESS 08/14/2024 9:01 AM EDT POCT URINALYSIS DIPSTICK Routine 08/08/2024 2:34 PM EDT Third trimester ([facility]) POCT URINALYSIS DIPSTICK Routine 07/25/2024 11:07 AM EDT Third trimester ([facility]) US OB FOLLOW UP TRANSABDOMINAL APPROACH Routine 07/11/2024 11:09 AM EDT size inconsistent with dates ([facility]) GLUCOSE 1 HOUR Routine 07/08/2024 12:02 PM EDT ALL CBC WITH AUTO DIFF Routine 12:02 PM EDT POCT URINALYSIS DIPSTICK Routine 06/27/2024 10:17 AM EDT Second trimester ([facility]) 26 weeks gestation of ([facility]) PAP SMEAR Routine 04/19/2024 12:00 AM EST from Last 3 Months or Most Recently Relevant to Health Maintenance Results * (ABNORMAL) ALL CBC WITH AUTO DIFF (09/13/2024 6:12 AM EDT) Only the most recent of3 resultswithin the time period is included. TBH WBC 15.4(H) 4.0 - 11.0 10 3/uL TBH TBH RBC 2.86(L) 4.20 - 5.40 10 6/uL TBH TBH HGB 7.7(L) 12.0 - 16.0 g/dL TBH TBH HCT 23.8(LL) 36.0 - 48.0 % TBH Comment:RESULTS CALLED TO Sa ra [place] RN TBH MCV 83.2 81.0 - 99.0 fL TBH TBH MCH 26.9 26.7 - 34.0 pg TBH TBH MCHC 32.4 29.9 - 35.2 g/dL TBH TBH RDW 14.6 11.0 - 15.0 % TBH TBH PLT 183 150 - 450 10 3/uL TBH TBH MPV 11.1 9.5 - 13.5 fL TBH NEUTROPHILS PERCENT AUTO 73.6 43.0 - 75.0 % TBH LYMPHOCYTES PERCENT AUTO 16.0(L) 20.5 - 60.0 % TBH MONOCYTES PERCENT AUTO 8.3 1.7 - 12.0 % TBH TBH EO % 0.1(L) 0.9 - 7.0 % TBH BASOPHILS PERCENT AUTO 0.2 0.2 - 2.0 % TBH IMMATURE GRANULOCYTES PCT AUTO 1.8(H) 0.0 - 0.5 % TBH NEUTROPHILS ABSOLUTE AUTO 11.3(H) 1.4 - 6.5 10 3/uL TBH LYMPHOCYTES ABSOLUTE AUTO 2.5 1.2 - 3.8 10 3/uL TBH MONOCYTES ABSOLUTE AUTO 1.3(H) 0.3 - 0.8 10 3/uL TBH TBH EO # 0.0 0.0 - 0.7 10 3/uL TBH BASOPHILS ABSOLUTE AUTO 0.0 0.0 - 0.1 10 3/uL TBH IMMATURE GRANULOCYTES ABS AUTO 0.28(H) 0.00 - 0.03 10 3/uL TBH 09/13/2024 6:12 AM EDT 09/13/2024 6:37 AM EDT Narrative CLINISYNC - 09/13/2024 6:47 AM EDT Nina Prieto DO CLINISYNC Final Result CLINISYNC TB * TB DRUG SCREEN RAPID (URINE) (09/12/2024 5:55 AM EDT) Pathologist [facility] CANNABINOID SCREEN URINE NEGATIVE NEGATIVE TBH PHENCYCLIDINE [...] CLINISYNC - 09/12/2024 6:25 AM EDT us Nina Conner DO CLINISYNC Final Result Performing Organization Address City/[facility]/ZIP Co de Phone Number CLINISYNC TBH * (ABNORMAL) HMHP URINALYSIS, WITH MICROSCOPIC (09/12/2024 [...] Narrative CLINISYNC - 09/12/2024 6:24 AM EDT us Nina Conner DO CLINISYNC Final Result Performing Organization Address [facility]/ZIP Co de Phone Number CLINISYNC TBH * US OB BPP W NON-STRESS (09/10/2024 2:18 PM EDT) Only the most recent of5 resultswithin the time period is included. Anatomical Region Laterality Modality Other 09/10/2024 2:18 PM EDT Narrative 09/10/2024 2:20 PM EDT [address] [address] Ultrasound Report Signed Patient: EDUAR STEWARD MR#: [id number] : 1990 Acct:[id number] Age/Sex: 34 / F ADM Date: 09/10/24 Loc: [facility] 250-[address]: Nina Prieto D.O. Ordering Physician: Nina Prieto D.O. Date of Service: 09/10/24 Procedure(s): US OB BPP w non-stress Accession Number(s): [id number] cc: Nina Prieto D.O.; NORBERTO BOLANOS [place] [address] Patient Name: EDUAR STEWARD MRN: [id number] date: 1990 Sex: F Assigned Patient Location: [facility] Current Patient Location: [facility] Accession/Order Number: [id number] Exam Date: 09/10/2024 14:12 Report Date: 09/10/2024 [...] Nava M.D. 09/10/2024 2:18 PM Dictation Location: [facility] [employer] Electronically authenticated by: [id number] Y Date: 09/10/2024 14:18 Dictated By: Deepak Nava D.O. Signed By: 09/10/24 1420 DD/ 1418 TD/TT: Saddle Stitch Operator: Procedure Note Radiology, Radiologist, MD - 09/10/2024 The [place] [id number] Ultrasound Report Signed Patient: EDUAR STEWARD KMR#: [id number] : 1990Acct:[id number] Age/Sex: 34 / FADM Date: 09/10/24 Loc: [facility] 250-[address]: Nina Prieto D.O. Ordering Physician: Nina Prieto D.O. Date of Service: 09/10/24 Procedure(s): US OB BPP w non-stress Accession Number(s): [id number] cc: Nina Prieto D.O.; NORBERTO BOLANOS [facility] [place] [id number] Patient Name: EDUAR STEWARD MRN: [id number] date: 1990 Sex: F Assigned Patient Location: [facility] Current Patient Location: [facility] Accession/Order Number: [id number] Exam Date: 09/10/2024 14:12 Report Date: 09/10/2024 [...] Nava M.D. 09/10/2024 2:18 PM Dictation Location: [place] [address] Electronically authenticated by: [id number] Y Date: 4:18 Dictated By: Deepak Nava D.O. Signed By:09/10/24 1420 DD/ 1418 TD/TT: Saddle Stitch Operator: us Nina Prieto DO CLINISYNC IMAGING Final Result * POCT urinalysis dipstick manually resulted (09/07/2024 3:22 PM EDT) Only the most recent of6 resultswithin the time period is included. Color, UA Yellow Clarity, UA Clear Glucose, UA Negative Negative - 1999(110) ++++ [...] - Positive Urine 09/07/2024 3:22 PM EDT Nina Prieto DO POINT OF CARE TEST ENTER/EDIT OR DERABLES Final Result * US OB GROWTH (08/14/2024 9:06 AM EDT) Anatomical Region Laterality Modality Other 08/14/2024 9:06 AM EDT Narrative 08/14/2024 9:09 [place] [address] Ultrasound Report Signed Patient: EDUAR STEWARD MR#: [id number] : 1990 Acct:[id number] Age/Sex: 34 / F ADM Date: 08/13/24 Loc: US Attending Dr: Nina Prieto D.O. Ordering Physician: Nina Prieto D.O. Date of Service: 08/13/24 Procedure(s): US OB growth Accession Number(s): [id number] cc: Nina Prieto D.O.; NORBERTO BOLANOS [address] [address] Patient Name: EDUAR STEWARD MRN: [id number] date: 1990 Sex: F Assigned Patient Location: US Current Patient Location: Accession/Order Number: [id number] Exam Date: 08/14/2024 09:01 Report Date: 08/14/2024 [...] Blake M.D. 08/14/2024 9:06 AM Dictation Location: [place] [address] Electronically authenticated by: [id number] Y Date: 08/14/2024 09:06 Dictated By: Gunnar Blake M.D. Signed By: 08/14/2409 DD/ 5 TD/TT: Saddle Stitch Operator: Procedure Note Radiology, Radiologist, - 08/14/2024 [place] [address] Ultrasound Report Signed Patient: EDUAR STEWARD KMR#: [id number] : 1990Acct:[id number] Age/Sex: 34 / FADM Date: 08/13/24 Loc: US Attending Dr: Nina Prieto D.O. Ordering Physician: Nina Prieto D.O. Date of Service: 08/13/24 Procedure(s): US OB growth Accession Number(s): [id number] cc: Nina Prieto D.O.; NORBERTO BOLANOS [place] [id number] Patient Name: EDUAR STEWARD MRN: [facility]:[id number] date: 1990 Sex: F Assigned Patient Location: US Current Patient Location: Accession/Order Number: [id number] Exam Date: 08/14/2024 09:01 Report Date: 08/14/2024 [...] Blake M.D. 08/14/2024 9:06 AM Dictation Location: [place] [address] Electronically authenticated by: [id number] Y Date: 509:06 Dictated By: Gunnar Blake M.D. Signed By:08/14/2409 DD/ 5 TD/TT: Saddle Stitch Operator: us Nina Prieto DO CLINISYNC IMAGING Final [...] II, MD, PHD at 11-Jul-2024 11:47:38 PM [facility] Procedure Note Travis Dangelo MD - [...] signed by TRAVIS DANGELO II, MD, PHD [id number] 11:47:38 PM [facility] us Karyna BENITES IMG OB US PROCEDURES Final Resul t * (ABNORMAL) GLUCOSE 1 HOUR (07/08/2024 12:02 PM EDT) GLUCOSE 1 HOUR 202(H) <130 mg/dL TBH 07/08/2024 12:0 2 PM EDT 07/08/2024 12:06 PM EDT Narrative CLINISYNC - 07/08/2024 12:18 PM EDT us Karyna BENITES LAB BLOOD ORDERABLES Final Resul t Performing Organization Address [facility] Co de Phone Number CLINISYNC TB * Pap Smear (04/19/2024 12:00 AM EST) Swab Cervical swab / Unknown us Nina Prieto DO LAB CYTOLOGY ORDERABLES Final Re sult Performing Organization Address City/[facility] Co de Phone Number EXTERNAL LAB from Last 3 Months or Most Recently Relevant to Health Maintenance Additional Health Concerns Active Problems Noted Date Diagnosed Date OB Reminders 03/28/2024 Insurance BS Care Teams Green Plumber Relationship Specialty Start Date End Date Karen Bolanos MD [address] [place] [address] PCP - General Family Medicine 11/10/22
--- OUTSIDE RECORDS SUMMARY | 2024-09-19 08:03 | XMS_ITS | Encounter Summary ---
Author Organization [facility] Address [facility] [place] [address] Care Team Providers Care Chief Of Vital Statistics Name Role Phone Unavailable Primary Care Provider Unavailabl e Source Comments In the event this information is protected by the Federal Confidentiality of Alcohol and Drug AbusePatient Records regulations: The Federal rules restrict any use of the information to criminally investigate or prosecute any alcohol or drug abuse patient.[facility] Reason for Visit * Reason Comments Lila ordered sperm next step Encounter Details Date Type Department Care Team (Late st Contact Info) Description 11/13/2023 Telephone Reproductive Endocrinology Infertility [address] [place] [address] Andressa Abraham APRN.SQL REPORT DEVELOPER [address] [facility] [address] [place] [address] Lila ordered sperm next step Social History [...] is lower risk 5 06/08/2023 Data from: https://www.neighborhoodatlas.medicine.[facility].edu/. Last address used for calculation [address] [...]
--- OUTSIDE RECORDS SUMMARY | 2024-09-19 08:03 | XMS_ITS | Encounter Summary ---
Author Organization [facility] Address [address] [place] [address] Care Team Providers Care Refractory Mixer Name Role Phone Karen Bolanos MD Primary Care Provider [phone] Karen Bolanos MD Unavailable [phone] Encounter Details Date Type Department Care Team (Late st Contact Info) Description 03/11/2024 Abstract [facility] [address] [place] [address] Andrea Prieto, [address] [place], [place] [address] Social History Tobacco Use Types Packs/Day Years [...] on filedocumented in this encounter Care Teams Refractory Mixer Relationship Specialty Start Date End Date Karen Bolanos MD [address] [place] [address] PCP - General Family Medicine 11/10/22 Karen Bolanos MD [address] [place] [address] PCP - Nish Medina 12/28/22 5 documented as of this encounter
--- OUTSIDE RECORDS SUMMARY | 2024-09-19 08:03 | XMS_ITS | Encounter Summary ---
Author Organization [facility] Address [facility] [place] [address] Care Team Providers Care Hospital Plan Administrator Name Role Phone Unavailable Primary Care Provider Unavailabl e Source Comments In the event this information is protected by the Federal Confidentiality of Alcohol and Drug AbusePatient Records regulations: The Federal rules restrict any use of the information to criminally investigate or prosecute any alcohol or drug abuse patient.[facility] Encounter Details Date Type Department Care Team (Latest Contact Info) Description 06/15/2023 Patient Msg Reproductive Endocrinology Infertility [address] [place] [address] Andressa Abraham APRN.COCONUT CANDY MAKER [address] [place] [address] Donor Sperm Handout Social History Tobacco Use [...] risk 5 06/08/2023 Data from: https://www.neighborhoodatlas.medicine.[facility].edu/. Last address used for calculation [address] [...]
--- OUTSIDE RECORDS SUMMARY | 2024-09-19 08:03 | XMS_ITS | Encounter Summary ---
Author Organization [facility] Address [address] [place] [address] Care Team Providers Care Television Equipment Operator Name Role Phone Karen Bolanos MD Primary Care Provider [phone] Encounter Details Date Type Department Care Team (Late st Contact Info) Description 09/13/2024 Clinisync Result Encounter N[facility] External Department Unsolicited Andrea Prieto, DO [address] [facility] [address] [place], [place] [id number] Social History Tobacco Use Types Packs/Day Years [...] Comments ALL CBC WITH AUTO DIFF Routine 09/13/2024 6:12 AM EDT documented in this encounter Results * (ABNORMAL) ALL CBC WITH AUTO DIFF (09/13/2024 6:12 AM EDT) TBH WBC 15.4(H) 4.0 - 11.0 10 [...] Narrative CLINISYNC - 09/13/2024 6:47 AM EDT us Andrea Conner DO CLINISYNC Final Result [facility] documented in this encounter Visit Diagnoses Not on filedocumented in this encounter Additional Health Concerns Active Problems Noted Date Diagnosed Date OB Reminders 03/28/2024 documented as of this encounter Care Teams Television Equipment Operator Relationship Specialty Start Date End Date Karen Bolanos MD [address] [place] [address] PCP - General Family Medicine 11/10/22 documented as of this encounter
--- OUTSIDE RECORDS SUMMARY | 2024-09-19 08:03 | XMS_ITS | Encounter Summary ---
Author Organization [facility] Address [address] [place] [address] Care Team Providers Care Bridge Game Director Name Role Phone Karen Bolanos MD Primary Care Provider [phone] Encounter Details Date Type Department Care Team (Late st Contact Info) Description 08/09/2024 Abstract [facility] OB [address] [place] [id number] Andrea Prieto, DO [address] [place], [place] [id number] Social History Tobacco Use Types Packs/Day Years [...] documented as of this encounter Care Teams Bridge Game Director Relationship Specialty Start Date End Date Karen Bolanos MD [address] [place] [address] PCP - General Family Medicine 11/10/22 documented as of this encounter
--- OUTSIDE RECORDS SUMMARY | 2024-09-19 08:03 | XMS_ITS | Encounter Summary ---
Author Organization [facility] Address [address] [place] [address] Care Team Providers Care Guitar Teacher Name Role Phone Karen Bolanos MD Primary Care Provider [phone] Encounter Details Date Type Department Care Team (Late st Contact Info) Description 04/29/2024 Orders Only [facility] [address] [facility] [place] [place] [address] Shanika Rubi MD [address] [place] [address] Social History Tobacco Use Types Packs/Day Years [...] documented as of this encounter Care Teams Guitar Teacher Relationship Specialty Start Date End Date Karen Bolanos MD [address] [place] [address] PCP - General Family Medicine 11/10/22 documented as of this encounter
--- OUTSIDE RECORDS SUMMARY | 2024-09-19 08:03 | XMS_ITS | Encounter Summary ---
Author Organization [facility] Address [facility] [place] [address] Care Team Providers Care Sheet Metal Duct Installer Apprentice Name Role Phone Unavailable Primary Care Provider [...] Description 08/18/2023 Patient Msg Reproductive Endocrinology Infertility [address] [place] [address] Andressa Abraham APRN.SEO EXECUTIVE [address] [place] [address] Myriad Results Social History Tobacco Use Types [...] is lower risk 5 06/08/2023 Data from: https://www.neighborhoodatlas.medicine.[facility].edu/. Last address used for calculation [address] [...]
--- OUTSIDE RECORDS SUMMARY | 2024-09-19 08:03 | XMS_ITS | Clinical Summary ---
Author Organization [facility] Address [facility] [place] [address] Care Team Providers Care Hydraulic Assembler Name Role Phone Unavailable Primary Care Provider [...] Care Team Description 07/20/2024 Telephone Maternal Medicine [address] [facility] [address] [place] [address] Historical from Last 3 Months [...] lower risk 5 06/08/2023 Data from: https://www.neighborhoodatlas.medicine.[facility]/. Last address used for calculation [address] [...] Procedure Name Priority Date/Time Associated Diagnosis Comments EXTERNAL LAB 09/08/2024 12:38 PM EDT EXTERNAL IMAGING 09/08/2024 12:3 8 PM EDT EXTERNAL LAB 09/08/2024 12:38 PM EDT EXTERNAL LAB 09/08/2024 12:38 PM EDT HIV 1/2 COMBO WITH REFLEX TO DIFFERENTIATION Routine 07/28/2023 10:49 AM EDT Procreation management investigation and testing HEPATITIS C ANTIBODY IA WITH CONFIRMATION Routine 07/28/2023 10:49 AM EDT Procreation management investigation and testing PAP FLUID CERVICAL DIAGNOSTIC 03/18/2013 11:34 AM EST from Last 3 Months or Most Recently Relevant to Health Maintenance Results * EXTERNAL LAB (09/08/2024 12:38 PM EDT) Only the most recent of3 resultswithin the time period is included. us External Provider PA-C LABORATORY Final Res ult * EXTERNAL IMAGING (09/08/2024 12:38 PM EDT) Anatomical Region Laterality Modality Other us External Provider PA-C RADIOLOGY Final Res ult * HIV 1 2 COMBO(AG/AB),WITH REFLEX TO DIFFERENTIATION (07/28/2023 10:49 AM EDT) HIV 12 Combo (Ag/Ab) Nonreactive Nonreactive 07/28/2023 7:25 PM EDT [facility] HIV-1/2 AB (Confirmatory) 07/28/2023 7:25 PM EDT [facility] Comment:Test not indicated. HIV Interpretation 07/28/2023 7:25 PM EDT [facility] Comment: No evidence of HIV-1 or HIV-2 infection. Should recent infection be suspected, repeat testing may be considered 2-3 weeks after this draw. [place] Rev. Code 3701.243(E): This information has been [...] EDT 07/28/2023 10:49 AM EDT Andressa Abraham INDEPENDENT JEWELER.PACKING FLOOR WORKER LABORATORY Final Result Performing Organization Address City/[facility]/ZIP Co de Phone Number [facility] [address] [phone], [place] * HEPATITIS C ANTIBODY IA WITH CONFIRMATION (07/28/2023 10:49 AM EDT) [facility] Hep C Antibody IA Negative Negative 07/28/2023 7:25 PM EDT [facility] Comment:The result suggests no evidence of active infection with Hepatitis C virus. Should recent infection be suspected, repeat testing may be considered 4-6 weeks after this draw. Blood BLOOD SPECIMEN / Unknown Venipuncture / Unknown 07/28/2023 10:49 AM EDT 07/28/2023 10:49 AM EDT Andressa Abraham INDEPENDENT JEWELER.PACKING FLOOR WORKER LABORATORY Final Result Performing Organization Address [facility] Co de Phone Number [facility] [address] [phone], [place] * PAP FLUID CERVICAL DIAGNOSTIC (03/18/2013 11:34 AM EST) [facility] DEPARTMENT OF PATHOLOGY CYTOLOGY REPORT [id number] Submitting Physician: Jacqui Villa MD Procedure Date: [...] from every slide are reviewed by a administrative specialist. TRAVIS Zuniga(ASCP) Application Packaging Consultant Electronic Signature CLINICAL HISTORY DYSPLASIA [facility] 03/18/2013 11:3 4 AM EST 03/21/2013 9:19 AM EST us Jacqui Villa MD CYTOLOGY Final Result [facility] [id number] [place] [id number] from Last 3 Months or Most Recently Relevant to Health Maintenance Insurance BLUE CARD PPO OOS
--- OUTSIDE RECORDS SUMMARY | 2024-09-19 08:04 | XMS_ITS | Encounter Summary ---
Author Organization [facility] Address [facility] [place] [address] Care Team Providers Care Event Host Name Role Phone Unavailable Primary Care Provider Unavailabl e Source Comments In the event this information is protected by the Federal Confidentiality of Alcohol and Drug AbusePatient Records regulations: The Federal rules restrict any use of the information to criminally investigate or prosecute any alcohol or drug abuse patient.[facility] Encounter Details Date Type Department Care Team (Late st Contact Info) Description 02/09/2024 Patient Msg Reproductive Endocrinology Infertility [address] [place] [address] Margo Cortez APRN.PODIATRIST ASSISTANT [address] [place] [id number] Congratulations!!! Social History Tobacco Use Types Packs/Day [...] 5 06/08/2023 Data from: https://www.neighborhoodatlas.medicine.[facility].edu/. Last address used for calculation [address] [...]
--- OUTSIDE RECORDS SUMMARY | 2024-09-19 08:04 | XMS_ITS ---
Author Organization [facility] Address [address] [place] [address] Care Team Providers Care Legal Research Analyst Name Role Phone Karen Bolanos MD Primary Care Provider [phone] Inpatient Discharge Transitional Care Management (TCM) Status:Closed (Closed) Start date:09/14/2024 Enrollment date:09/15/2024 Enrollment reason:Identified using hospital discharge data End date:09/16/2024 Close reason:Not eligible Overview Patient discharged from [facility] on 09[facility]. Please contact for hospital CHEL and schedule follow-up appointment within 7-14 days. Continued Care and Services Coordination
--- NOTE | 2024-09-19 15:31 | PC.NURSE ---
Family arrives for follow up appointment. Rina relates is feeling well, C/S incision feels pretty good Weaning off Percocet and replacing with Motrin 800mg. Denies concerns for self. States is worried about milk supply or perceived lwo supply. [facility] did not have issues with supply for older 2 children, but worried that it might not work the same for this child . Pt describes multiple wet diapers 8-10 daily and same number of stools, yellow seedy for baby Yaniv. States Milk is in for sure, I leak at feeding times Describes content baby that wakes for feedings on his own, and is content after coming to the breast. Also, pumps 4-5 oz from breast not nursed at the feed. Second mother Wanda is agreement for infant output and intake. Siting that takes 3 oz bottle during the night without incident. Rina with VSS, assessment WNL. No concerns voiced or noted. Rima Purvis is with VSS and assessment WNL. has gained 4 oz since visit with PCP on 09/16/2024. Parents both states feel much better after assessment and reassurance. Baby to breast, mom encouraged to support body while at the breast and to continue to hold weight of breast for baby. Shown ways to make positioning easier and secure for . Active nursing for total of 25 minutes. Baby released latch and content. Family aware of [facility]OM[facility] group for support and aware to call for questions of . Leave ambulatory at this time, no questions or concerns voiced.
[2024-09-19 15:32] VITALS: BP 121/82; PULSE 88; TEMP 36.7; O2SAT 96
== END 2024-09-19 15:39 | disposition home or self-care (01) ==
LOC: FBCO 08:00
PROVIDERS: PCP Student in an Organized Health Care Education/Training Program; Visit Provider Obstetrics & Gynecology
DX: Z39.1 Encounter for care and examination of lactating mother (principal)

== ENCOUNTER 2024-10-18 08:11 | Outpatient (OUT) | payer BC, SELFPAY ==
--- OUTSIDE RECORDS SUMMARY | 2024-10-18 08:15 | XMS_ITS | Encounter Summary ---
Author Organization [facility] Address [facility] [place] [address] Care Team Providers Care Extraction Machine Operator Name Role Phone Unavailable Primary Care Provider Unavailabl e Source Comments In the event this information is protected by the Federal Confidentiality of Alcohol and Drug AbusePatient Records regulations: The Federal rules restrict any use of the information to criminally investigate or prosecute any alcohol or drug abuse patient.[facility] Encounter Details Date Type Department Care Team (Latest Contact Info) Description 12/01/2023 Get Medical Advice Reproductive Endocrinology Infertility [address] [place] [address] Andressa Abraham APRN.MANAGER ENTERPRISE [address] [place] [address] Financial clearance Social History Tobacco Use Types [...] is lower risk 5 06/08/2023 Data from: https://www.neighborhoodatlas.medicine.[facility].edu/. Last address used for calculation [address] [...]
--- OUTSIDE RECORDS SUMMARY | 2024-10-18 08:15 | XMS_ITS | Encounter Summary ---
Author Organization [facility] Address [address] [place] [address] Care Team Providers Care Drying Supervisor Name Role Phone Karen Bolanos MD Primary Care Provider [phone] Encounter Details Date Type Department Care Team (Late st Contact Info) Description 04/29/2024 Orders Only [facility] [address] [facility] [place] [address] Shanika Rubi MA [address] [place], [place] [address] [address] Social History Tobacco Use Types Packs/Day Years Used Date Smoking Tobacco: Never Smokeless Tobacco: Never Alcohol Use Standard Drinks/Week Comments Yes 0 (1 standard drink = 0.6 oz pure alcohol) 1-2 drinks less than monthly in the past year, Caffeine intake: 1-2 cups per day Comments Yes Sex and Gender Information Value Date Recorded Sex Assigned at Female 11/25/2022 10:05 AM EDT Legal Sex Female 7:17 PM EDT Gender Identity Female 06/11/2022 7:17 PM EDT Sexual Orientation Lesbian 01/12/2023 5: 14 PM EDT documented as of this encounter Plan of Treatment Upcoming Encounters Date Type Department Care Team (Late st Contact Info) Description 10/27/2024 1:50 PM EDT Visit [facility] [address] [facility] [place] [address] Karyna Craig PA [address] [place] [address] [place] [address] documented as of this encounter Goals Goal [...] documented as of this encounter Care Teams Drying Supervisor Relationship Specialty Start Date End Date Karen Bolanos MD [address] [place] [address] PCP - General Family Medicine 11/10/22 documented as of this encounter
--- OUTSIDE RECORDS SUMMARY | 2024-10-18 08:15 | XMS_ITS | Encounter Summary ---
Author Organization [facility] Address [address] [facility] [place] [address] Care Team Providers Care Security Chief Museum Name Role Phone Karen Bolanos MD Primary Care Provider [phone] Encounter Details Date Type Department Care Team (Late st Contact Info) Description 09/07/2024 Abstract [facility] OB [address] [place] [address] Andrea Prieto, [address] Mary [place], [place] [address] Social History Tobacco Use Types Packs/Day Years [...] PM EDT Visit [facility] OB [address] [place] [address] Karyna Craig PA [address] [place] [address] [place] [address] documented as of this encounter Goals Goal Patient Goal Type Associated Problems Recent Progress Patient-Stated? Author Reminders Care Plan OB Reminders No Open Scheduling, Background documented as of this encounter Visit Diagnoses Not on filedocumented in this encounter Additional Health Concerns Active Problems Noted Date Diagnosed Date OB Reminders 03/28/2024 documented as of this encounter Care Teams Security Chief Museum Relationship Specialty Start Date End Date Karen Bolanos MD [address] [place] [address] PCP - General Family Medicine 11/10/22 documented as of this encounter
--- OUTSIDE RECORDS SUMMARY | 2024-10-18 08:16 | XMS_ITS | Encounter Summary ---
Author Organization [facility] Address [facility] [place] [address] Care Team Providers Care Intensive Care Ambulance Paramedic Name Role Phone Unavailable Primary Care Provider Unavailabl e Source Comments In the event this information is protected by the Federal Confidentiality of Alcohol and Drug AbusePatient Records regulations: The Federal rules restrict any use of the information to criminally investigate or prosecute any alcohol or drug abuse patient.[facility] Encounter Details Date Type Department Care Team (Latest Contact Info) Description 11/23/2023 Patient Msg Reproductive Endocrinology Infertility [address] [place] [address] Andressa Abraham APRN.STUDENT DEVELOPMENT DEAN [address] [place] [address] IUI Scheduling Instructions Social History Tobacco Use [...] is lower risk 5 06/08/2023 Data from: https://www.neighborhoodatlas.medicine.[facility].edu/. Last address used for calculation [address] [...]
--- OUTSIDE RECORDS SUMMARY | 2024-10-18 08:16 | XMS_ITS | Encounter Summary ---
Author Organization [facility] Address [address] [place] [address] Care Team Providers Care Track Inspector Name Role Phone Karen Bolanos MD Primary Care Provider [phone] Encounter Details Date Type Department Care Team (Late st Contact Info) Description 08/09/2024 Abstract [facility] [address] [facility] [place] [address] Andrea Prieto, [address] Mary [place]mann, [place] [address] Social History Tobacco Use Types Packs/Day Years [...] PM EDT Visit [facility] [address] [facility] [place] [address] Karyna Craig PA [address] [place] [address] [place] [address] documented as of this encounter Goals Goal Patient Goal Type Associated Problems Recent Progress Patient-Stated? Author Reminders Care Plan OB Reminders No Open Scheduling, Background documented as of this encounter Visit Diagnoses Not on filedocumented in this encounter Additional Health Concerns Active Problems Noted Date Diagnosed Date OB Reminders 03/28/2024 documented as of this encounter Care Teams Track Inspector Relationship Specialty Start Date End Date Karen Bolanos MD [address] [place] [address] PCP - General Family Medicine 11/10/22 documented as of this encounter
--- OUTSIDE RECORDS SUMMARY | 2024-10-18 08:16 | XMS_ITS | Encounter Summary ---
Author Organization [facility] Address [address] [facility] [place] [address] Care Team Providers Care Steamfitter Supervisor Name Role Phone Karen Bolanos MD Primary Care Provider [phone] Encounter Details Date Type Department Care Team (Late st Contact Info) Description 08/29/2024 Abstract [facility] OB [address] [facility] [place] [address] Andrea Prieto, [address] Mary [place], [place] [address] Social History Tobacco Use Types Packs/Day Years [...] PM EDT Visit [facility] OB [address] [facility] [place] [address] Karyna Craig PA [address] [place] [address] [place] [address] documented as of this encounter Goals Goal Patient Goal Type Associated Problems Recent Progress Patient-Stated? Author Reminders Care Plan OB Reminders No Open Scheduling, Background documented as of this encounter Visit Diagnoses Not on filedocumented in this encounter Additional Health Concerns Active Problems Noted Date Diagnosed Date OB Reminders 03/28/2024 documented as of this encounter Care Teams Steamfitter Supervisor Relationship Specialty Start Date End Date Karne Bolanos MD [address] [place] [address] PCP - General Family Medicine 11/10/22 documented as of this encounter
--- OUTSIDE RECORDS SUMMARY | 2024-10-18 08:16 | XMS_ITS | Encounter Summary ---
Author Organization [facility] Address [facility] [place] [address] Care Team Providers Care Scooping Machine Tender Name Role Phone Unavailable Primary Care Provider Unavailabl e Source Comments In the event this information is protected by the Federal Confidentiality of Alcohol and Drug AbusePatient Records regulations: The Federal rules restrict any use of the information to criminally investigate or prosecute any alcohol or drug abuse patient.[facility] Reason for Visit * Reason Comments Can they order the donor sperm samples pauline pt rt call Encounter Details Date Type Department Care Team (Late st Contact Info) Description 10/29/2023 Telephone Reproductive Endocrinology Infertility [address] [place] [address] Andressa Abraham APRN.KICK PRESS OPERATOR [address] [facility] [address] [place] [address] Can they order the donor sperm samples; [...] is lower risk 5 06/08/2023 Data from: https://www.neighborhoodatlas.medicine.[facility]/. Last address used for calculation [address] [...]
--- OUTSIDE RECORDS SUMMARY | 2024-10-18 08:16 | XMS_ITS | Encounter Summary ---
Author Organization [facility] Address [address] [place] [address] Care Team Providers Care Book Store Associate Name Role Phone Karen Bolanos MD Primary Care Provider [phone] Encounter Details Date Type Department Care Team (Late st Contact Info) Description 07/12/2024 Abstract [facility] OB [address] [facility] [place] [address] Karyna Craig PA [address] [place] [address] [address] [place], [place] [address] Social History Tobacco Use Types Packs/Day Years [...] Description 10/27/2024 1:50 PM EDT Visit [facility] OB [address] [facility] [place] [address] Karyna Craig PA [address] [place] [address] [place] [address] documented as of this encounter Goals Goal Patient Goal Type Associated Problems Recent Progress Patient-Stated? Author Reminders Care Plan OB Reminders No Open Scheduling, Background documented as of this encounter Visit Diagnoses Not on filedocumented in this encounter Additional Health Concerns Active Problems Noted Date Diagnosed Date OB Reminders 03/28/2024 documented as of this encounter Care Teams Book Store Associate Relationship Specialty Start Date End Date Karen Bolanos MD [address] [place] [address] PCP - General Family Medicine 11/10/22 documented as of this encounter
--- OUTSIDE RECORDS SUMMARY | 2024-10-18 08:16 | XMS_ITS | Encounter Summary ---
Author Organization [facility] Address [facility] [place] [address] Care Team Providers Care Mechanical Technical Service Specialist Name Role Phone Unavailable Primary Care Provider Unavailabl e Source Comments In the event this information is protected by the Federal Confidentiality of Alcohol and Drug AbusePatient Records regulations: The Federal rules restrict any use of the information to criminally investigate or prosecute any alcohol or drug abuse patient.[facility] Encounter Details Date Type Department Care Team (Late st Contact Info) Description 08/18/2023 Patient Msg Reproductive Endocrinology Infertility [address] [place] [address] Andressa Arbaham APRN.BLOCK CABLEMAN [address] [place] [address] Myriad Results Social History Tobacco Use Types [...] is lower risk 5 06/08/2023 Data from: https://www.neighborhoodatlas.medicine.[facility].edu/. Last address used for calculation [address] [...]
--- OUTSIDE RECORDS SUMMARY | 2024-10-18 08:16 | XMS_ITS | Encounter Summary ---
Author Organization [facility] Address [facility] [place] [address] Care Team Providers Care Director Records Management Name Role Phone Unavailable Primary Care Provider Unavailabl e Source Comments In the event this information is protected by the Federal Confidentiality of Alcohol and Drug AbusePatient Records regulations: The Federal rules restrict any use of the information to criminally investigate or prosecute any alcohol or drug abuse patient.[facility] Reason for Visit * Reason Comments Lila ordered sperm next step Encounter Details Date Type Department Care Team (Late st Contact Info) Description 11/13/2023 Telephone Reproductive Endocrinology Infertility [address] [id number] Andressa Abraham APRN.INSIDE SALES ADMINISTRATOR [address] [facility] [address] [place] [address] Lila ordered sperm next step Social History [...] is lower risk 5 06/08/2023 Data from: https://www.neighborhoodatlas.medicine.[facility].edu/. Last address used for calculation [address] [...]
--- OUTSIDE RECORDS SUMMARY | 2024-10-18 08:16 | XMS_ITS | Encounter Summary ---
Author Organization [facility] Address [address] [place] [address] Care Team Providers Care Biochemist Name Role Phone Karen Bolanos MD Primary Care Provider [phone] Karen Bolanos MD Unavailable [phone] Encounter Details Date Type Department Care Team (Late st Contact Info) Description 11/10/2022 Abstract [facility] [address] [place] [address] Karen Bolanos MD [address] [place] [address] Social History Tobacco Use Types Packs/Day Years [...] Department Care Team (Late Contact Info) Description 10/27/2024 1:50 PM EDT Visit [facility] OB [address] [place] [address] Karyna Craig PA [address] [facility] [place] [address] documented as of this encounter Visit Diagnoses Not on filedocumented in this encounter Care Teams Biochemist Relationship Specialty Start Date End Date Karen Bolanos MD [address] [place] [address] PCP - General Family Medicine 11/10/22 Karen Bolanos MD [address] [place] [address] PCP - Nish Medina 12/28/22 5 documented as of this encounter
--- OUTSIDE RECORDS SUMMARY | 2024-10-18 08:16 | XMS_ITS | Encounter Summary ---
Author Organization [facility] Address [address] [place] [address] Care Team Providers Care Private Tutors And Teachers Name Role Phone Karen Bolanos MD Primary Care Provider [phone] Encounter Details Date Type Department Care Team (Late st Contact Info) Description 09/12/2024 Abstract [facility] [address] [place] [address] Andrea Prieto, [address] Mary [place], [place] [id number] Social History Tobacco Use Types Packs/Day Years Used Date Smoking Tobacco: Never Smokeless Tobacco: Never Alcohol Use Standard Drinks/Week Comments Yes 0 (1 standard drink = 0.6 oz pure alcohol) 1-2 drinks less than monthly in the past year, Caffeine intake: 1-2 cups per day PHQ-2 Answer Date Recorded Patient Health Questionnaire-2 Score 0 09/16/2024 Comments Yes Sex and Gender Information Value [...] PM EDT Visit [facility] OB [address] [facility] [address] Karyna Craig PA [address] [facility] [place] [address] documented as of this encounter Goals Goal Patient Goal Type Associated Problems Recent Progress Patient-Stated? Author Reminders Care Plan OB Reminders No Open Scheduling, Background documented as of this encounter Visit Diagnoses Not on filedocumented in this encounter Additional Health Concerns Active Problems Noted Date Diagnosed Date OB Reminders 03/28/2024 documented as of this encounter Care Teams Private Tutors And Teachers Relationship Specialty Start Date End Date Karen Bolanos MD [address] [place] [address] PCP - General Family Medicine 11/10/22 documented as of this encounter
--- OUTSIDE RECORDS SUMMARY | 2024-10-18 08:16 | XMS_ITS | Encounter Summary ---
Author Organization [facility] Address [facility] [place] [address] Care Team Providers Care Freight Weigher Name Role Phone Unavailable Primary Care Provider [...] Description 06/15/2023 Patient Msg Reproductive Endocrinology Infertility [address] [place] [address] Andressa Abraham APRN.AIR INTERCEPT CONTROLLER SUPERVISOR [address] [place] [address] Donor Sperm Handout Social History Tobacco Use [...]
--- OUTSIDE RECORDS SUMMARY | 2024-10-18 08:16 | XMS_ITS | Encounter Summary ---
Author Organization [facility] Address [address] [place] [address] Care Team Providers Care Canvas Worker Name Role Phone Karen Bolanos MD Primary Care Provider [phone] Karen Bolanos MD Unavailable [phone] Encounter Details Date Type Department Care Team (Late st Contact Info) Description 03/11/[address] [facility] [address] [place] [phone] Andrea Prieto, [address] [place], [place] [phone] Social History Tobacco Use Types Packs/Day Years [...] PM EDT Visit [facility] [address] [facility] [place] [address] Karyna Craig PA [address] [facility] [place] [address] documented as of this encounter Visit Diagnoses Not on filedocumented in this encounter Care Teams Canvas Worker Relationship Specialty Start Date End Date Karen Bolanos MD [address] [place] [address] PCP - General Family Medicine 11/10/22 Karen Bolanos MD [address] [place] [address] PCP - Nish Medina 12/28/22 5 documented as of this encounter
--- OUTSIDE RECORDS SUMMARY | 2024-10-18 08:16 | XMS_ITS | Encounter Summary ---
Author Organization [facility] Address [address] [place] [address] Care Team Providers Care Hub Cutter Name Role Phone Karen Bolanos MD Primary Care Provider [phone] Karen Bolanos MD Unavailable [phone] Encounter Details Date Type Department Care Team (Late st Contact Info) Description 03/11/2024 Abstract [facility] [address] [place] [phone] Andrea Prieto, [address] [place], [place] [phone] Social History Tobacco Use Types Packs/Day Years [...] PM EDT Visit [facility] OB [address] [facility] [place] [address] Karyna Craig PA [address] [facility] [place] [address] documented as of this encounter Visit Diagnoses Not on filedocumented in this encounter Care Teams Hub Cutter Relationship Specialty Start Date End Date Karen Bolanos MD [address] [place] [address] PCP - General Family Medicine 11/10/22 Karen Bolanos MD [address] [place] [address] PCP - Nish Medina 12/28/22 5 documented as of this encounter
--- OUTSIDE RECORDS SUMMARY | 2024-10-18 08:17 | XMS_ITS | Encounter Summary ---
Author Organization [facility] Address [address] [place] [address] Care Team Providers Care Insulation Supervisor Name Role Phone Karen Bolanos MD Primary Care Provider [phone] Karen Bolanos MD Unavailable Encounter Details Date Type Department Care Team (Late st Contact Info) Description 03/09/2024 Abstract [facility] [address] [place] [phone] Andrea Prieto, [address] [place], [place] [phone] Social History Tobacco Use Types Packs/Day Years [...] PM EDT Visit [facility] OB [address] [place] [address] Karyna Craig PA [address] [facility] [place] [address] documented as of this encounter Visit Diagnoses Not on filedocumented in this encounter Care Teams Insulation Supervisor Relationship Specialty Start Date End Date Karen Bolanos MD [address] [place] [address] PCP - General Family Medicine 11/10/22 Karen Bolanos MD [address] [place] [address] PCP - Nish Medina 12/28/22 5 documented as of this encounter
--- OUTSIDE RECORDS SUMMARY | 2024-10-18 08:17 | XMS_ITS | Encounter Summary ---
Author Organization [facility] Address [facility] [place] [address] Care Team Providers Care Sales Audit Clerk Name Role Phone Unavailable Primary Care Provider Unavailabl e Source Comments In the event this information is protected by the Federal Confidentiality of Alcohol and Drug AbusePatient Records regulations: The Federal rules restrict any use of the information to criminally investigate or prosecute any alcohol or drug abuse patient.[facility] Encounter Details Date Type Department Care Team (Late st Contact Info) Description 02/09/2024 Patient Msg Reproductive Endocrinology Infertility [address] [place] [address] Margo Crotez APRN.BRINE ROOM LABORER [address] [place] [phone] Congratulations!!! Social History Tobacco Use Types Packs/Day Years Used Date Smoking Tobacco: Never Smokeless Tobacco: Never Alcohol Use Standard Drinks/Week Comments Yes 0 (1 standard drink = 0.6 oz pur e alcohol) social Area Deprivation Index Answer Date Abhishek rded National Score (1-100), lower number is lower ri sk 71 06/08/2023 State Score (1-10), lower number is lower risk 5 06/08/2023 Data from: https://www.neighborhoodatlas.medicine.[facility].edu/. Last address used for calculation [address] [...]
--- OUTSIDE RECORDS SUMMARY | 2024-10-18 08:17 | XMS_ITS | Clinical Summary ---
Author Organization [facility] [place] [facility] Address [facility] [place] [address] Care Team Providers Care Admitting Clerk Name Role Phone Unavailable Primary Care [...] Care Team Description 07/20/2024 Telephone Maternal Medicine [address] [facility] [address] [place] [address] Historical from Last 3 Months [...] is lower risk 5 06/08/2023 Data from: https://www.neighborhoodatlas.medicine.[facility]/. Last address used for calculation [address] [...] 5 season) 2023 08/17/2020, 07/20/2020 Influenza Vaccine (#1) 2024 , 12/10/2016, 02/16/2009 HIV Screening Completed 07/28/2023 Hepatitis [...] (Ag/Ab) Nonreactive Nonreactive 07/28/2023 7:25 PM EDT [facility] HIV-1/2 AB (Confirmatory) 07/28/2023 7:25 PM EDT [facility] Comment:Test not indicated. HIV Interpretation 07/28/2023 7:25 PM EDT [facility] Comment: No evidence of HIV-1 or HIV-2 infection. Should recent infection be suspected, repeat testing may be considered 2-3 weeks after this draw. [place] Rev. Code 3701.243(E): This information has been [...] EDT 07/28/2023 10:49 AM EDT Andressa Abraham COAGULATING OPERATOR.[facility] Final Result Performing Organization Address City/[facility]/ZIP Co de Phone Number [facility] [address] [id number], [place] * HEPATITIS C ANTIBODY IA WITH CONFIRMATION (07/28/2023 10:49 AM EDT) [facility] Hep C Antibody IA Negative Negative 07/28/2023 7:25 PM EDT [facility] Comment:The result suggests no evidence of active infection with Hepatitis C virus. Should recent infection be suspected, repeat testing may be considered 4-6 weeks after this draw. Blood BLOOD SPECIMEN / Unknown Venipuncture / Unknown 07/28/2023 10:49 AM EDT 07/28/2023 10:49 AM EDT Andressa Abraham COAGULATING OPERATOR.[facility] Final Result Performing Organization Address [facility] Co de Phone Number [facility] [address] [id number], [place] * PAP FLUID CERVICAL DIAGNOSTIC (03/18/2013 11:34 AM EST) [facility] DEPARTMENT OF PATHOLOGY CYTOLOGY REPORT [id number] Submitting Physician: Jacqui Villa MD Procedure Date: [...] from every slide are reviewed by a central processing tech. TRAVIS Zuniga(ASCP) Sous Chef Electronic Signature CLINICAL HISTORY DYSPLASIA [facility] 03/18/2013 11:3 4 AM EST 03/21/2013 9:19 AM EST us Jacqui Villa MD CYTOLOGY Final Result [facility] [address] [id number] from Last 3 Months or Most Recently Relevant to Health Maintenance Insurance BLUE CARD PPO OOS
--- OUTSIDE RECORDS SUMMARY | 2024-10-18 08:17 | XMS_ITS | Encounter Summary ---
Author Organization [facility] Address [address] [place] [address] Care Team Providers Care Photo Booth Operator Name Role Phone Karen Bolanos MD Primary Care Provider [phone] Karen Bolanos MD Unavailable [phone] Encounter Details Date Type Department Care Team (Late st Contact Info) Description 03/14/2024 Abstract [facility] [address] [place] [phone] Andrea Prieto, [address] [place], [place] [phone] Social History Tobacco Use Types Packs/Day Years [...] PM EDT Visit [facility] OB [address] [facility] [place] [address] Karyna Craig PA [address] [facility] [place] [address] documented as of this encounter Visit Diagnoses Not on filedocumented in this encounter Care Teams Photo Booth Operator Relationship Specialty Start Date End Date Karen Bolanos MD [address] [place] [address] PCP - General Family Medicine 11/10/22 Karen Bolanos MD [address] [place] [address] PCP - Nish Medina 12/28/22 5 documented as of this encounter
--- OUTSIDE RECORDS SUMMARY | 2024-10-18 08:17 | XMS_ITS | Clinical Summary ---
Author Organization [facility] Address [address] [place] [address] Care Team Providers Care Brick And Block Mason Name Role Phone Karen Bolanos MD Primary Care Provider [phone] Allergies No known active allergies Medications MV-Min-Fe Fum-FA-DHA ( 1 PO) Take 1 tablet by mouth Daily Active ibuprofen 800 MG tablet Take 800 mg by mouth in the morning and 800 mg in the evening and 800 mg before bedtime. PRN. 5 Active oxyCODONE-acet aminophen (Percocet) 5-325 MG tablet Take 1 tablet by mouth every 8 (eight) hours if needed 5 Active omeprazole (PriLOSEC) [address] [place] ions:Gastroeso phageal Reflux Disease,Heartb urn Take 1 capsule (20 mg) by mouth in the morning. Take before meals. Do not crush or chew. 30 capsule 3 5 09/23/19 25 Discontinued Active Problems Problem Noted Date Diagnosed Date Mild episode of recurrent major depressive disor dariela 12/28/2023 Restless leg 12/28/2023 Encounters Date Type Department Care Team Description 09/22/2024 2:00 PM EDT Office Visit [facility] OB [address] [facility] [place] [address] Karyna Craig PA S/P section 09/22/2024 Bamboo flowsheet [facility] [address] [facility] [place] [address] Karyna Craig PA 09/16/2024 Patient Outreach [facility] [address] [place] [address] Karyna Larkin LPN 09/13/2024 Clinisync Result Encounter NOMS External Department Unsolicited Nina Prieto, DO 09/12/2024 Abstract [facility] OB [address] [place] [address] Nina Prieto, DO 09/12/2024 Clinisync Result Encounter NOMS External Department Unsolicited Nina Prieto, DO 09/10/2024 Clinisync Result Encounter NOMS External Department Unsolicited Nina Prieto, DO 09/07/2024 2:50 PM EDT Routine [facility] OB [address] [place] [address] [place] [address] Nina Prieto, DO Third trimester ([facility]); 37 weeks gestation of ([facility]) 09/07/2024 Abstract [facility] OB [address] [place] [address] [place] [address] Nina Prieto, DO 09/04/2024 Clinisync Result Encounter NOMS External Department Unsolicited Nina Prieto, DO 08/31/2024 11:20 AM EDT Routine [facility] OB [address] [place] [address] [place] [address] Karyna Craig PA 36 weeks gestation of ([facility]); Third trimester ([facility]) 08/31/2024 Bamboo flowsheet [facility] OB [facility] [place] [address] Karyna Craig PA 08/29/2024 Abstract [facility] OB [address] [place] [address] [place] [address] Nina Prieto, DO 08/27/2024 Clinisync Result Encounter NOMS External Department Unsolicited Nina Prieto, DO 08/24/2024 Telephone [facility] OB [address] [place] [address] Shanika Rubi MA 08/23/2024 2:40 PM EDT Routine [facility] OB [address] [place] [address] Nina Prieto, DO 35 weeks gestation of ([facility]); Third trimester ([facility]); Gastroesophageal reflux in ([facility]) 08/23/2024 Bamboo flowsheet [facility] OB [address] [place] [address] Nina Prieto, DO 08/20/2024 Clinisync Result Encounter [facility] External Department Unsolicited Nina Prieto, DO 08/19/2024 Telephone [facility] OB [address] [facility] [place] [address] Nina Prieto, DO 08/14/2024 Clinisync Result Encounter NOMS External Department Unsolicited Nina Prieto, DO 08/14/2024 Clinisync Result Encounter NOMS External Department Unsolicited Nina Prieto, DO 08/09/2024 Abstract [facility] OB [address] [place] [address] Nina Prieto, DO 08/08/2024 2:10 PM EDT Routine [facility] OB [address] [place] [address] Nina Prieto, DO Third trimester ([facility]); 33 weeks gestation of ([facility]); Gestational diabetes mellitus (GDM), antepartum, gestational diabetes method of control unspecified ([facility]) 08/08/2024 Bamboo flowsheet [facility] OB [address] [place] [address] Nina Prieto, DO 08/01/2024 Telephone [facility] OB [facility] [place] [address] Nina Prieto DO 07/25/2024 10:40 AM EDT Routine [facility] [address] [place] [address] Steffanie Gerard, ABDI Third trimester ([facility]); 31 weeks gestation of ([facility]) 07/25/2024 Bamboo flowsheet NOM[facility] [address] [place] [address] Steffanie Gerard, ABDI from Last 3 Months Immunizations Immunization Administration Dates Next Due DTaP 02/08/1993, 2,1991,1991 DTaP, Unspecified 02/08/1993, 2,1991,1991 Hep B, Adolescent or Pediatric 12/08/2003 HiB, unspecified 02/08/1993, 2,1991,1991 Hib (HbOC) 02/08/1993, 2,1991,1991 Influenza, injectable, quadrivalent 06/15/2023 Influenza, injectable, quadr ivalent, preservative free 12/10/2016 MMR 09/13/2023,12/08/2003,10/27/1996 Novel [id number], preservative-free 02/16/2009 Polio, Unspecified 02/08/1993,1991, 992 Tetanus [...] Patient Health Questionnaire-2 Score 0 09/16/2024 Comments No Sex and Gender Information Value Date Recorded Sex Assigned at Female 11/25/2022 10:05 AM EDT Legal Sex Female 7:17 PM EDT Gender Identity Female 06/11/2022 7:17 PM EDT Sexual Orientation Lesbian 01/12/2023 5: 14 PM EDT Last Filed Vital Signs Vital Sign Reading Time Taken Comments Blood Pressure 110/70 09/22/2024 2:10 PM EDT Pulse 76 12/28/2023 8:37 AM EDT Temperature 37 C (98.6 F) 12/28/2023 8:37 AM EDT Respiratory Rate - - Oxygen Saturation 98% 12/28/2023 8:37 AM EDT Inhaled Oxygen Concentration - - Weight 95.7 kg (211 lb) 09/22/2024 2:10 PM EDT Height 160 cm (5' 3 ) 12/28/2023 8:37 AM EDT Body Mass Index 37.38 12/28/2023 8:37 AM EDT Plan of Treatment Upcoming Encounters Date Type Department Care Team (Late st Contact Info) Description 10/27/2024 1:50 PM EDT Visit [facility] [address] [facility] [place] [address] Karyna Craig PA [address] [facility] [place] [address] Health Maintenance Due Date Last Done Comments Influenza Vaccine (#1) 2024 06/15/2023, 2016 Cervical Cancer Screening 04/19/2029 HPV/Cotest 04/19/2029 Pap Smear 04/19/2029 04/19/2024, 02/28 (Manually Satisfied by [facility]) Goals Goal Patient Goal Type Associated Problems Recent Progress Patient-Stated? Author Reminders Care Plan OB Reminders No Open Scheduling, Background Procedures Procedure Name Priority Date/Time Associated Diagnosis Comments ALL CBC WITH AUTO DIFF Routine 09/13/2024 6:12 AM EDT [facility] DRUG SCREEN RAPID (URINE) Routine 09/12/2024 5:55 AM EDT [facility] URINALYSIS, WITH MICROSCOPIC Routine 09/12/2024 5:55 AM EDT ALL CBC WITH AUTO DIFF Routine 09/12/2024 5:55 AM EDT US OB BPP W NON-STRESS 09/10/2024 2:18 PM EDT POCT URINALYSIS DIPSTICK Routine 09/07/2024 3:22 PM EDT Third trimester ([facility]) US OB BPP W NON-STRESS 09/04/2024 9:38 AM EDT POCT URINALYSIS DIPSTICK Routine 08/31/2024 11:59 AM EDT 36 weeks gestation of ([facility]) Third trimester ([facility]) US OB BPP W NON-STRESS 08/27/2024 2:00 PM EDT POCT URINALYSIS DIPSTICK Routine 08/23/2024 3:11 PM EDT 35 weeks gestation of ([facility]) Third trimester ([facility]) US OB BPP W NON-STRESS 08/20/2024 1:30 PM EDT US OB GROWTH 08/14/2024 9:06 AM EDT US OB BPP W NON-STRESS 08/14/2024 9:01 AM EDT POCT URINALYSIS DIPSTICK Routine 08/08/2024 2:34 PM EDT Third trimester ([facility]) POCT URINALYSIS DIPSTICK Routine 07/25/2024 11:07 AM EDT Third trimester ([facility]) PAP SMEAR Routine 04/19/2024 12:00 AM EST from Last 3 Months or Most Recently Relevant to Health Maintenance Results * (ABNORMAL) ALL CBC WITH AUTO DIFF (09/13/2024 6:12 AM EDT) Only the most recent of2 resultswithin the time period is included. [facility] [...] CLINISYNC - 09/13/2024 6:47 AM EDT Nina Escobedoo DO CLINISYNC Final Result Performing Organization Address [facility] Co de Phone Number CLINOMID [facility] * [facility] DRUG SCREEN RAPID (URINE) (09/12/2024 5:55 AM [...] DO CLINISYNC Final Result Performing Organization Address City/[facility]/ZIP Co de Phone Number CLINSIMONENJ TB * (ABNORMAL) [facility] URINALYSIS, WITH MICROSCOPIC (09/12/2024 [...] Narrative CLINISYNC - 09/12/2024 6:24 AM EDT Nina Prieto DO CLINISYCURRY Final Result [facility]INISYNC [facility] * US OB BPP W NON-STRESS (09/10/2024 2:18 PM EDT) Only the most recent of5 resultswithin the time period is included. Anatomical Region Laterality Modality Other 09/10/2024 2:18 PM EDT Narrative 09/10/2024 2:20 [place] [address] Ultrasound Report Signed Patient: EDUAR STEWARD MR#: [id number] : 1990 Acct:[id number] Age/Sex: 34 / F ADM Date: 09/10/24 Loc: [facility] 250-[address]: Nina Prieto D.O. Ordering Physician: Nina Prieto D.O. Date of Service: 09/10/24 Procedure(s): US OB BPP w non-stress Accession Number(s): [id number] cc: Nina Prieto D.O.; NORBERTO BOLANOS [address] [address] Patient Name: EDUAR STEWARD MRN: [facility]:[id number] date: 1990 Sex: F Assigned Patient Location: [facility] Current Patient Location: [facility] Accession/Order Number: [id number] Exam Date: 09/10/2024 14:12 Report Date: 09/10/2024 [...] Nava M.D. 09/10/2024 2:18 PM Dictation Location: [place] [address] Electronically authenticated by: [id number] Y Date: 09/10/2024 14:18 Dictated By: Deepak Nava D.O. Signed By: 09/10/24 1420 DD/ 1418 TD/TT: Tank Car Mechanic: Procedure Note Radiology, Radiologist, MD - 09/10/2024 [place] [address] Ultrasound Report Signed Patient: EDUAR STEWARD KMR#: [id number] : 1990Acct:[id number] Age/Sex: 34 / FADM Date: 09/10/24 Loc: [facility] 250-[address]: Nina Prieto D.O. Ordering Physician: Nina Prieto D.O. Date of Service: 09/10/24 Procedure(s): US OB BPP w non-stress Accession Number(s): [id number] cc: Nina Prieto D.O.; NORBERTO BOLANOS [place] [id number] Patient Name: EDUAR STEWARD MRN: [id number]:[id number] date: 1990 Sex: F Assigned Patient Location: [facility] Current Patient Location: [facility] Accession/Order Number: [id number] Exam Date: 09/10/2024 14:12 Report Date: 09/10/2024 [...] Nava M.D. 09/10/2024 2:18 PM Dictation Location: [facility] Electronically authenticated by: [id number] Y Date: 4:18 Dictated By: Deepak Nava D.O. Signed By:09/10/24 1420 DD/ 1418 TD/TT: Tank Car Mechanic: Nina Prieto DO CLINISYNC IMAGING Final Result * POCT urinalysis dipstick manually resulted (09/07/2024 3:22 PM EDT) Only the most recent of5 [...] - 9 Protein, UA Negative Negative - 1999(20) ++++ mg/dL Urobilinogen, UA 0.2 0.2 - 12 mg/dL Leukocytes, UA Negative Negative - 500+++ Shannon/mcL Nitrite, UA Negative Negative - Positive Urine 09/07/2024 3:22 PM EDT Nina Prieto DO POINT OF CARE TEST ENTER/EDIT OR DERABLES Final Result * US OB GROWTH (08/14/2024 9:06 AM EDT) Anatomical Region Laterality Modality Other 08/14/2024 9:06 AM EDT Narrative 08/14/2024 9:09 [place] [address] Ultrasound Report Signed Patient: EDUAR STEWARD MR#: [id number] : 1990 Acct:[id number] Age/Sex: 34 / F ADM Date: 08/13/24 Loc: US Attending Dr: Nina Prieto D.O. Ordering Physician: Nina Prieto D.O. Date of Service: 08/13/24 Procedure(s): US OB growth Accession Number(s): [id number] cc: Nina Prieto D.O.; NORBERTO BOLANOS [place] [address] Patient Name: EDUAR STEWARD MRN: [id number] date: 1990 Sex: F Assigned Patient Location: Current Patient Location: Accession/Order Number: [id number] Exam Date: 08/14/2024 09:01 Report Date: 08/14/2024 [...] Blake M.D. 08/14/2024 9:06 AM Dictation Location: [place] [address] Electronically authenticated by: [id number] Date: 08/14/2024 09:06 Dictated By: Gunnar Blake M.D. Signed By: 08/14/24908 DD/ 5 TD/TT: Tank Car Mechanic: Procedure Note Radiology, Radiologist, - 08/14/2024 [place] [address] Ultrasound Report Signed Patient: EDUAR STEWARD KMR#: [id number] : 1990Acct:[id number] Age/Sex: 34 / FADM Date: 08/13/24 Loc: US Attending Dr: Nina Prieto D.O. Ordering Physician: Nina Prieto D.O. Date of Service: 08/13/24 Procedure(s): US OB growth Accession Number(s): [id number] cc: Nina Prieto D.O.; NORBERTO BOLANOS [place] [address] Patient Name: EDUAR STEWARD MRN: [facility]:[id number] date: 1990 Sex: F Assigned Patient Location: Current Patient Location: Accession/Order Number: [id number] Exam Date: 08/14/2024 09:01 Report Date: 08/14/2024 [...] Blake M.D. 08/14/2024 9:06 AM Dictation Location: [facility] Electronically authenticated by: [id number] Y Date: 9:06 Dictated By: Gunnar Blake M.D. Signed By:08/14/2409 DD/ 5 TD/TT: Tank Car Mechanic: Nina Conner DO CLINISYNC IMAGING Final Result * Pap Smear (04/19/2024 12:00 AM EST) Swab Cervical swab / Unknown Nina Conner DO LAB CYTOLOGY ORDERABLES Final Re sult EXTERNAL LAB from Last 3 Months or Most Recently Relevant to Health Maintenance Additional Health Concerns Active Problems Noted Date Diagnosed Date OB Reminders 03/28/2024 Insurance [facility] Care Teams Brick And Block Mason Relationship Specialty Start Date End Date Karen Bolanos MD [address] [place] [address] PCP - General Family Medicine 11/10/22
--- OUTSIDE RECORDS SUMMARY | 2024-10-18 08:17 | XMS_ITS | Clinical Summary ---
Author Organization [facility] Address [address] [place] [address] Phone Care Team Providers Care Injection Maintenance Technician Name Role Phone Karen Bolanos MD Primary Care Provider [phone] Social History Tobacco Use Types Packs/Day Years [...] of Treatment Not on file Care Teams Injection Maintenance Technician Relationship Specialty Start Date End Date Karen Bolanos MD [address] [place] [address] PCP - General 03/11/21
--- OUTSIDE RECORDS SUMMARY | 2024-10-18 08:25 | XMS_ITS | CCD ---
Author Organization [facility] Care Team Providers Care Assistant Floor Covering Printer Name Role Phone BACEVICE, CHARLIE E Unavailable [...] ANDREA Attending Unavailable DINA GERARD Attending Unavailable KAREN BOLANOS Attending Unavailable CONNER, ANDREA Attending Unavailable CONNER, ANDREA Attending Unavailable KARYNA CRAIG Attending Unavailable CONNER, ANDREA Attending Unavailable KARYNA CRAIG Attending Unavailable Medications Current Medications Medication Drug Class(es) Dates Sig (Normalized) Sig (Original) acetaminophen 325 mg / oxyCODONE hydrochloride 5 mg oral tablet (3 sources) Opioid Agonist Start: 09-14-2024 take 1 tablet by mouth every eight hours as needed oxyCODONE-acetamin ophen (Percocet) 5-325 MG tablet Take 1 tablet by mouth every 8 (eight) hours if needed 09/14/2024 Active amoxicillin 80 mg/ml oral suspension (1 source) Penicillin-class Antibacterial Start: 02-28-2024 End: 03-09-2024 take 960 mg by mouth every twelve hours amoxicillin 400 mg/5 mL Oral Liq 960 mg = 12 mL, Oral, q12hr, X 10 day(s), # 240 mL, Refills(s) 0, Pharmacy: [id number], 158, cm, 02/28/24 9:01:00 EST, Height/Length Dosing, [...] Glucose Monitoring Suppl (D-Care Glucometer) w/Device kit (15 sources) Start: 07-12-2024 End: 08-31-2024 Blood Glucose [...] oral solution (1 source) alpha-Adrenergic Agonist, Uncompetitive Q-dpxhpe-O-aspartate Receptor Antagonist, Sigma-1 Agonist Start: 03-11-2021 End: 03-20-2021 take 5 mL by mouth every four to six hours brompheniramine/pseudoephedrine/dextrome thorphan [id number]-[id number]/5 mL oral syrup ; 5 milliliter(s) orally [...] or discontinue unless directed by your doctor. ibuprofen 800 mg oral tablet (3 sources) Nonsteroidal Anti-inflammatory Drug Start: 09-14-2024 take 1 tablet by mouth in the morning as needed, then take 1 tablet by mouth in the evening as needed, then take 1 tablet by mouth at bedtime as needed ibuprofen 800 MG tablet Take 800 mg by mouth in the morning and 800 mg in the evening and 800 mg before bedtime. PRN. 09/14/2024 Active isopropyl alcohol 0.7 ml/ml medicated pad (15 sources) Start: 07-12-2024 End: 08-31-2024 Alcohol Swabs (Alcohol Prep Pad) 70 % pads Indications: Gestational diabetes mellitus (GDM), antepartum, gestational diabetes method of control unspecified , Elevated glucose tolerance test Apply 1 Pad topically Daily Use four times daily to check FSBS. 150 each 3 07/12/2024 08/31/2024 Discontinued mv-min/iron/folic/ calcium/vitK (WOMEN'S MULTIVITAMIN ORAL) (20 sources) mv-min/iron/foli c/ calcium/vitK (WOMEN'S MULTIVITAMIN ORAL) Take by mouth. Active mv-min/iron/foli c/calcium/vitK (WOMEN'S MULTIVITAMIN ORAL) Take by mouth. 0 Active Comment on above: Take by mouth. MV-Min-Fe Fum-FA-DH A ( 1 PO) (11 sources) MV-Min- Fe Fum-FA-DHA ( 1 PO) [...] 0 Start Date: 05/29/12 Status: Ordered levonorgestrel 0.197225 mg/hr intrauterine system (14 sources) Progestin, Progestin-contain ing Intrauterine Device End: 01-18-2024 levonorgestrel (MIRENA) 20 mcg/24 hr IUD 1 Each by INTRAUTERINE route one time only. 01/18/2024 Discontinued () Comment on above: 1 Each by INTRAUTERI NE route one time only. omeprazole 20 mg delayed release oral capsule (17 sources) Proton Pump Inhibitor Start: 08-23-2024 End: 09-23-2024 take 1 capsule by mouth before mealtime omeprazole (PriLOSEC) [address] capsule Indications: Gastroesophageal Reflux Disease , Heartburn Take 1 capsule (20 mg) by mouth in the morning. Take before meals. Do not crush or chew. 30 capsule 3 08/24/2024 09/22/2024 Discontinued Problems Active Problems Problem Classification Problem Date [...] Test Name Value Interpretation Reference Range Facility ALL CBC WITH AUTO DIFFon BASOPHILS ABSOLUTE AUTO 0 [facility] Basophils/100 WBC (Bld) 0.2 % 0.2 - 2.0 % [facility] Eosinophils/100 WBC (Bld) 0.1 % Low 0.9 - 7.0 % [facility] Erythrocyte distribution width (RBC) [Ratio] 14.6 % 11.0 - 15.0 % [facility] Hematocrit (Bld) [Volume fraction] 23.8 % Critically low 36.0 - 48.0 % [facility] Comment on above: RESULTS CALLED TO Sa ra [place] RN Hemoglobin (Bld) [Mass/Vol] 7.7 g/dL Low 12.0 - 16.0 g/dL [facility] IMMATURE GRANULOCYTES ABS AUTO 0.28 High [facility] Immature granulocytes/100 WBC (Bld) 1.8 % High 0.0 - 0.5 % [facility] Interpretation and review of laboratory results Abnormal [facility] LYMPHOCYTES ABSOLUTE AUTO 2.5 [facility] Lymphocytes/100 WBC (Bld) 16 % Low 20.5 - 60.0 % [facility] MCH (RBC) [Entitic mass] 26.9 pg 26.7 - 34.0 pg [facility] MCHC (RBC) [Mass/Vol] 32.4 g/dL 29.9 - 35.2 g/dL [facility] MCV (RBC) [Entitic vol] 83.2 fL 81.0 - 99.0 fL [facility] MONOCYTES ABSOLUTE AUTO 1.3 High [facility] Monocytes/100 WBC (Bld) 8.3 % 1.7 - 12.0 % [facility] NEUTROPHILS ABSOLUTE AUTO 11.3 High [facility] Neutrophils/100 WBC (Bld) 73.6 % 43.0 - 75.0 % [facility] Platelet mean volume (Bld) [Entitic vol] 11.1 fL 9.5 - 13.5 fL [facility] TBH EO # 0 [facility] PLT 183 [facility] RBC 2.86 Low [facility] WBC 15.4 High [facility] ALL CBC WITH AUTO DIFFon BASOPHILS ABSOLUTE AUTO 0 [facility] Basophils/100 WBC (Bld) 0.2 % 0.2 - 2.0 % [facility] Eosinophils/100 WBC (Bld) 0.6 % Low 0.9 - 7.0 % [facility] Erythrocyte distribution width (RBC) [Ratio] 14.5 % 11.0 - 15.0 % [facility] Hematocrit (Bld) [Volume fraction] 29.9 % Low 36.0 - 48.0 % [facility] Hemoglobin (Bld) [Mass/Vol] 9.7 g/dL Low 12.0 - 16.0 g/dL [facility] IMMATURE GRANULOCYTES ABS AUTO 0.23 High [facility] Immature granulocytes/100 WBC (Bld) 2.2 % High 0.0 - 0.5 % [facility] Interpretation and review of laboratory results Abnormal [facility] LYMPHOCYTES ABSOLUTE AUTO 2.1 [facility] Lymphocytes/100 WBC (Bld) 20 % Low 20.5 - 60.0 % [facility] MCH (RBC) [Entitic mass] 26.6 pg Low 26.7 - 34.0 pg [facility] MCHC (RBC) [Mass/Vol] 32.4 g/dL 29.9 - 35.2 g/dL [facility] MCV (RBC) [Entitic vol] 82.1 fL 81.0 - 99.0 fL [facility] MONOCYTES ABSOLUTE AUTO 0.8 [facility] Monocytes/100 WBC (Bld) 8 % 1.7 - 12.0 % [facility] NEUTROPHILS ABSOLUTE AUTO 7.1 High [facility] Neutrophils/100 WBC (Bld) 69 % 43.0 - 75.0 % [facility] Platelet mean volume (Bld) [Entitic vol] 10.7 fL 9.5 - 13.5 fL [facility] TBH EO # 0.1 [facility] PLT 205 [facility] TB RBC 3.64 Low [facility] WBC 10.3 [facility] US OB BPP W NON-STRESS on 09-10-2024 [place] [address] Ultrasound Report Signed Patient: NELLI CARPENTER MR#: [id number] : 1990 Acct:[id number] Age/Sex: 34 / F ADM Date: 09/10/24 Loc: [facility] 250- Attending Dr: Andrea Prieto D.O. Ordering Physician: Andrea Prieto D.O. Date of Service: 09/10/24 Procedure(s): US OB BPP w non-stress Accession Number(s): [id number] cc: Andrea Prieto D.O.; NORBERTO BOLANOS [place] [address] Patient Name: NELLI CARPENTER MRN: [facility]:[id number] date: 1990 Sex: F Assigned Patient Location: [facility] Current Patient Location: [facility] Accession/Order Number: [id number] Exam Date: 09/10/2024 14:12 Report Date: 09/10/2024 [...] Nava M.D. 09/10/2024 2:18 PM Dictation Location: [employer] Electronically authenticated by: [id number] Y Date: 09/10/2024 14:18 Dictated By: Deepak Nava D.O. Signed By: 09/10/24 1420 DD/ 1418 TD/TT: Case Loader Operator: [facility] Radiology, Radiologsharla summers MD - 09/10/2024 [place] [address] Ultrasound Report Signed Patient: NELLI CARPENTER MR#: [id number] : 1990 Acct:[id number] Age/Sex: 34 / F ADM Date: 09/10/24 Loc: [facility] 250-[address]: Andrea Prieto D.O. Ordering Physician: Andrea Prieto D.O. Date of Service: 09/10/24 Procedure(s): US OB BPP w non-stress Accession Number(s): [id number] cc: Andrea Prieto D.O.; NORBERTO BOLANOS [place] [address] Patient Name: NELLI CARPENTER MRN: [facility]:[id number] date: 1990 Sex: F Assigned Patient Location: [facility] Current Patient Location: [facility] Accession/Order Number: [id number] Exam Date: 09/10/2024 14:12 Report Date: 09/10/2024 [...] Nava M.D. 09/10/2024 2:18 PM Dictation Location: [place] [address] Electronically authenticated by: [id number] Y Date: 09/10/2024 14:18 Dictated By: Deepak Nava D.O. Signed By: 09/10/24 1420 DD/ 1418 TD/TT: Case Loader Operator: [facility] Radiology Study observation (narrative) [facility] US OB BPP W NON-STRESS Ordered By: Radiologist Radiology on 09-10-2024 [facility] Work Phone: Urinalysis macro (dipstick) panel (U)on 09-07-2024 Bilirubin, UA Negative Negative - 4(70) +++ mg/dL [facility] Blood, UA Negative Negative - 50 Mukesh/mcL [facility] Clarity, UA Clear [facility] Color, UA Yellow [facility] Glucose, UA Negative Negative - 2000(110) ++++ mg/dL [facility] Interpretation and review of laboratory results Normal [facility] Ketones, UA Negative Negative - 160(16) ++++ mg/dL [facility] Leukocytes, UA Negative Negative - 500+++ Shannon/mcL [facility] Nitrite, UA Negative Negative - Positive [facility] pH, UA 7 5 - 9 [facility] Protein, UA Negative Negative - 1999(20) ++++ mg/dL [facility] Spec Grav, UA 1.02 1 - 1.03 [facility] Urobilinogen, UA 0.2 0.2 - 12 mg/dL [facility] US OB BPP W NON-STRESS on 09-04-2024 [place] [address] Ultrasound Report Signed Patient: NELLI CARPENTER MR#: [id number] : 1990 Acct:[id number] Age/Sex: 34 / F ADM Date: 09/03/24 Loc: US Attending Dr: Andrea Prieto D.O. Ordering Physician: Andrea Prieto D.O. Date of Service: 09/03/24 Procedure(s): US OB BPP w non-stress Accession Number(s): [id number] cc: Andrea Prieto D.O.; NORBERTO BOLANOS [place] [id number] Patient Name: NELLI CARPENTER MRN: [id number] date: 1990 Sex: F Assigned Patient Location: [facility] Current Patient Location: Accession/Order Number: [id number] Exam Date: 09/04/2024 09:38 Report Date: 09/04/2024 [...] Nava M.D. 09/04/2024 9:38 AM [facility] Electronically authenticated by: [id number] Y Date: 09/04/2024 09:38 Dictated By: Deepak Nava D.O. Signed By: 09/04/24940 DD/ 7 TD/TT: Case Loader Operator: [facility] Radiology Radiologsharla summers MD - 09/04/2024 [place] [address] Ultrasound Report Signed Patient: NELLI CARPENTER MR#: [id number] : 1990 Acct:[id number] Age/Sex: 34 / F ADM Date: 09/03/24 Loc: US Attending Dr: Andrea Prieto D.O. Ordering Physician: Andrea Prieto D.O. Date of Service: 09/03/24 Procedure(s): US OB BPP w non-stress Accession Number(s): [id number] cc: Andrea Prieto D.O.; NORBERTO BOLANOS [place] [id number] Patient Name: NELLI CARPENTER MRN: [facility]:[id number] date: 1990 Sex: F Assigned Patient Location: [facility] Current Patient Location: Accession/Order Number: [id number] Exam Date: 09/04/2024 09:38 Report Date: 09/04/2024 [...] ultrasound biophysical profile Impression dictated by: Deepak Naav M.D. 09/04/2024 9:38 AM Dictation Location: [employer] Electronically authenticated by: [id number] Y Date: 09/04/2024 09:38 Dictated By: Deepak Nava D.O. Signed By: 09/04/2441 DD/ 7 TD/TT: Case Loader Operator: [facility] Radiology Study observation (narrative) [facility] US OB BPP W NON-STRESS Ordered By: Radiologist Radiology on 09-04-2024 [facility] Work Phone: Urinalysis macro (dipstick) panel (U)on 08-31-2024 Bilirubin, UA Negative Negative - 4(70) +++ mg/dL [facility] Blood, UA Negative Negative - 50 Mukesh/mcL [facility] Clarity, UA Cloudy [facility] Color, UA Dark Shereen [facility] Glucose, UA Negative Negative - 2000(110) ++++ mg/dL [facility] Interpretation and review of laboratory results Abnormal [facility] Ketones, UA Negative Negative - 160(16) ++++ mg/dL [facility] Leukocytes, UA Negative Negative - 500+++ Shannon/mcL [facility] Nitrite, UA Negative Negative - Positive [facility] pH, UA 6.5 5 - 9 [facility] Protein, UA Positive Negative - 2000(20) ++++ mg/dL [facility] Comment on above: 30 Spec Grav, UA 1.025 1 - 1.03 [facility] Urobilinogen, UA 1.0 0.2 - 12 mg/dL [facility] US OB BPP W NON-STRESS on 08-27-2024 [place] [address] Ultrasound Report Signed Patient: NELLI CARPENTER MR#: [id number] : 1990 Acct:[id number] Age/Sex: 34 / F ADM Date: 08/27/24 Loc: [facility] 250-[address]: Andrea Prieto D.O. Ordering Physician: Andrea Prieto D.O. Date of Service: 08/27/24 Procedure(s): US OB BPP w non-stress Accession Number(s): [id number] cc: Andrea Prieto D.O.; NORBERTO BOLANOS [place] [id number] Patient Name: NELLI CARPENTER MRN: [facility]:[id number] date: 1990 Sex: F Assigned Patient Location: [facility] Current Patient Location: [facility] Accession/Order Number: [id number] Exam Date: 08/27/2024 13:58 Report Date: 08/27/2024 [...] Nava M.D. 08/27/2024 2:00 PM Dictation Location: [place] [address] Electronically authenticated by: [id number] Y Date: 08/27/2024 14:00 Dictated By: Deepak Nava D.O. Signed By: 08/27/24 140 DD/ 99 TD/TT: Case Loader Operator: [facility] Radiology, Radiologi MD melina - 08/27/2024 [place] [address] Ultrasound Report Signed Patient: NELLI CARPENTER MR#: [id number] : 1990 Acct:[id number] Age/Sex: 34 / F ADM Date: 08/27/24 Loc: [facility] 250-[address]: Andrea Prieto D.O. Ordering Physician: Andrea Prieto D.O. Date of Service: 08/27/24 Procedure(s): US OB BPP w non-stress Accession Number(s): [id number] cc: Andrea Prieto D.O.; NORBERTO BOLANOS [place] [address] Patient Name: NELLI CARPENTER MRN: [id number] date: 1990 Sex: F Assigned Patient Location: [facility] Current Patient Location: [facility] Accession/Order Number: [id number] Exam Date: 08/27/2024 13:58 Report Date: 08/27/2024 [...] Nava M.D. 08/27/2024 2:00 PM Dictation Location: [place] [address] Electronically authenticated by: [id number] Y Date: 08/27/2024 14:00 Dictated By: Deepak Nava D.O. Signed By: 08/27/24 1402 DD/ 1400 TD/TT: Case Loader Operator[facility] Radiology Study observation (narrative) [facility] US OB BPP W NON-STRESS Ordered By: Radiologist Radiology on 08-27-2024 [facility] Work Phone: Urinalysis macro (dipstick) panel (U)on 08-23-2024 Bilirubin, UA Negative Negative - 4(70) +++ mg/dL [facility] Blood, UA Negative Negative - 50 Mukesh/mcL [facility] Clarity, UA Clear [facility] Color, UA Yellow [facility] Glucose, UA Negative Negative - 1999(110) ++++ mg/dL [facility] Interpretation and review of laboratory results Abnormal [facility] Ketones, UA Negative Negative - 160(16) ++++ mg/dL [facility] Leukocytes, UA Trace Negative - 500+++ Shannon/mcL [facility] Nitrite, UA Negative Negative - Positive [facility] pH, UA 7 5 - 9 [facility] Protein, UA Negative Negative - 2000(20) ++++ mg/dL [facility] Spec Grav, UA 1.015 1 - 1.03 [facility] Urobilinogen, UA 0.2 0.2 - 12 mg/dL [facility] US OB BPP W NON-STRESS on 08-14-2024 [place] [address] Ultrasound Report Signed Patient: NELLI CARPENTER MR#: [id number] : 1990 Acct:[id number] Age/Sex: 34 / F ADM Date: 08/13/24 Loc: US Attending Dr: Andrea Prieto D.O. Ordering Physician: Andrea Prieto D.O. Date of Service: 08/13/24 Procedure(s): US OB BPP w non-stress Accession Number(s): [id number] cc: Andrea Prieto D.O.; NORBERTO BOLANOS [place] [address] Patient Name: NELLI CARPENTER MRN: [id number]:[id number] date: 1990 Sex: F Assigned Patient Location: US Current Patient Location: Accession/Order Number: [id number] Exam Date: 08/14/2024 08:54 Report Date: 08/14/2024 [...] Blake M.D. 08/14/2024 9:01 AM Dictation Location: [place] [address] Electronically authenticated by: [id number] Y Date: 08/14/2024 09:01 Dictated By: Gunnar Blake M.D. Signed By: 08/14/24903 DD/ 0 TD/TT: Case Loader Operator: [facility] Radiology, Radiologi MD melina - 08/14/2024 [place] [address] Ultrasound Report Signed Patient: NELLI CARPENTER MR#: [id number] : 1990 Acct:[id number] Age/Sex: 34 / F ADM Date: 08/13/24 Loc: US Attending Dr: Andrea Prieto D.O. Ordering Physician: Andrea Prieto D.O. Date of Service: 08/13/24 Procedure(s): US OB BPP w non-stress Accession Number(s): [id number] cc: Andrea Prieto D.O.; NORBERTO BOLANOS [place] [phone] Patient Name: NELLI CARPENTER MRN: [facility]:[id number] date: 1990 Sex: F Assigned Patient Location: US Current Patient Location: Accession/Order Number: [id number] Exam Date: 08/14/2024 08:54 Report Date: 08/14/2024 [...] Blake M.D. 08/14/2024 9:01 AM Dictation Location: [place] [address] Electronically authenticated by: [id number] Y Date: 08/14/2024 09:01 Dictated By: Gunnar Blake M.D. Signed By: 08/14/2404 DD/ 0 TD/TT: Case Loader Operator: [facility] Radiology Study observation (narrative) [facility] US OB BPP W NON-STRESS Ordered By: Radiologist Radiology on 08-14-2024 [facility] Work Phone: US OB GROWTHon 08-14-2024 [place] [address] Ultrasound Report Signed Patient: NELLI CARPENTER MR#: [id number] : 1990 Acct:[id number] Age/Sex: 34 / F ADM Date: 08/13/24 Loc: US Attending Dr: Andrea Prieto D.O. Ordering Physician: Andrea Prieto D.O. Date of Service: 08/13/24 Procedure(s): US OB growth Accession Number(s): [id number] cc: Andrea Prieto D.O.; NORBERTO BOLANOS [place] [address] Patient Name: NELLI CARPENTER MRN: [facility]:[id number] date: 1990 Sex: F Assigned Patient Location: US Current Patient Location: Accession/Order Number: [id number] Exam Date: 08/14/2024 09:01 Report Date: 08/14/2024 [...] Blake M.D. 08/14/2024 9:06 AM Dictation Location: [place] [address] Electronically authenticated by: [id number] Y Date: 08/14/2024 09:06 Dictated By: Gunnar Blake M.D. Signed By: 08/14/2409 DD/ 5 TD/TT: Case Loader Operator: [facility] Radiology Radiologsharla summers MD - 08/14/2024 [place] [address] Ultrasound Report Signed Patient: NELLI CARPENTER MR#: [id number] : 1990 Acct:[id number] Age/Sex: 34 / F ADM Date: 08/13/24 Loc: US Attending Dr: Andrea Prieto D.O. Ordering Physician: Andrea Prieto D.O. Date of Service: 08/13/24 Procedure(s): US OB growth Accession Number(s): [id number] cc: Andrea Prieto D.O.; NORBERTO BOLANOS [address] [address] Patient Name: NELLI CARPENTER MRN: [facility]:[id number] date: 1990 Sex: F Assigned Patient Location: US Current Patient Location: Accession/Order Number: [id number] Exam Date: 08/14/2024 09:01 Report Date: 08/14/2024 [...] Blake M.D. 08/14/2024 9:06 AM Dictation Location: [place] [address] Electronically authenticated by: [id number] Y Date: 08/14/2024 09:06 Dictated By: Gunnar Blake M.D. Signed By: 08/14/24908 DD/ 5 TD/TT: Case Loader Operator: [facility] Radiology Study observation (narrative) [facility] US OB GROWTHOrdered By: Susan ologblanca Radiology on 08-14-2024 [facility] Work Phone: Urinalysis macro (dipstick) panel (U)on 08-08-2024 Bilirubin, UA Negative Negative - 4(70) +++ mg/dL [facility] Blood, UA Negative Negative - 50 Mukesh/mcL [facility] Clarity, UA Clear [facility] Healthcare Color, UA Yellow [facility] Glucose, UA Negative Negative - 1999(110) ++++ mg/dL [facility] Interpretation and review of laboratory results Normal [facility] Ketones, UA Negative Negative - 160(16) ++++ mg/dL [facility] Leukocytes, UA Negative Negative - 500+++ Shannon/mcL [facility] Nitrite, UA Negative Negative - Positive [facility] pH, UA 7 5 - 9 [facility] Protein, UA Negative Negative - 1999(20) ++++ mg/dL [facility] Spec Grav, UA 1.02 1 - 1.03 [facility] Urobilinogen, UA 0.2 0.2 - 12 mg/dL [facility] Urinalysis macro (dipstick) panel (U)on 07-25-2024 Bilirubin, UA Negative Negative - 4(70) +++ mg/dL [facility] Blood, UA Negative Negative - 50 Mukesh/mcL [facility] Healthcare Clarity, UA Clear [facility] Color, UA Yellow [facility] Glucose, UA Negative Negative - 1999(110) ++++ mg/dL [facility] Interpretation and review of laboratory results Abnormal [facility] Ketones, UA Negative Negative - 160(16) ++++ mg/dL [facility] Leukocytes, UA Negative Negative - 500+++ Shannon/mcL [facility] Nitrite, UA Negative Negative - Positive [facility] pH, UA 6.5 5 - 9 [facility] Protein, UA Negative Negative - 1999(20) ++++ mg/dL [facility] Spec Grav, UA 1.015 1 - 1.03 [facility] Urobilinogen, UA 1.0 0.2 - 12 mg/dL [facility] CNPNon 07-20-2024 [facility] Telephone ([id number]) NELLI CARPENTER ([id number]) 1990 F Date Time Provider Department 07/20/24 HISTORICAL [id number] During your visit today, we recorded the following information about you: Jessy Lilly, BALJINDER 07/20/2024 1:19 PM Signed Received outside referral from Dr. Prieto for GDM consult due to elevated 1 hour glucose 202. Called pt. To schedule appointment no answer, left message with call back phone number. BALJINDER Zaman Laura Lee 07/25/2024 11:57 AM Signed Nelliben Carpenter called today. Caller's (home) [phone] (cell) Reason for call: Pt calling nurse back to be scheduled for GDM consult due to elevated 1 hour glucose 202. Jessy Zamora RN 08/04/2024 3:24 PM Addendum Outside referral received from Dr. Prieto for elevated 1 hour glucose 202. Pt. Has all testing supplies and has been checking BS periodically. Advised pt. To start checking 4 times daily and upload to [employer]. Will send nonfarm animal caretaker. Other med hx: asthma, placenta previa with previous OB History Gravida4 Para2 Term2 Preterm0 AB1 Living2 SAB1 IAB0 Ectopic0 Multiple0 Live Births2 2014- , vag MAB 2016- FT, c-sec placenta previa Current meds: PNV Last growth US 07/11, pt. Advised to schedule growth US every 4 weeks. Pt. Scheduled for [facility] GDM class on 08/[address] Quintanilla. Jessy Lilly, BALJINDER Records sent to medical records, and also available in [address]. Allergies As of Date: 07/20/2024 (No Known Allergies) Date Reviewed: 01/20/2024 Reviewed by: Andressa Abraham APRN.FACE AND FILL PACKER - Fully Assessed Prescriptions as of 08/04/2024 - vit/iron fum/folic ac ( 1 + 1 ORAL) Take by mouth. - mv-min/iron/folic/calci um/vitK (WOMEN'S MULTIVITAMIN ORAL) Take by mouth. Problem List As Of Date 07/20/2024 Noted Resolved Complete placenta previa with hemorrhage, third*12/09/2016 06/01/2024 Encounter Status:Closed by JESSY LILLY on 07/20/24 Normal [facility] ALL CBC WITH AUTO DIFFon BASOPHILS ABSOLUTE AUTO 0 [facility] Basophils/100 WBC (Bld) 0.2 % 0.2 - 2.0 % [facility] Eosinophils/100 WBC (Bld) 0.6 % Low 0.9 - 7.0 % [facility] Erythrocyte distribution width (RBC) [Ratio] 13.2 % 11.0 - 15.0 % [facility] Hematocrit (Bld) [Volume fraction] 34 % Low 36.0 - 48.0 % [facility] Hemoglobin (Bld) [Mass/Vol] 11.1 g/dL Low 12.0 - 16.0 g/dL [facility] IMMATURE GRANULOCYTES ABS AUTO 0.15 High [facility] Immature granulocytes/100 WBC (Bld) 1.9 % High 0.0 - 0.5 % [facility] Interpretation and review of laboratory results Abnormal [facility] LYMPHOCYTES ABSOLUTE AUTO 1.5 [facility] Lymphocytes/100 WBC (Bld) 18.9 % Low 20.5 - 60.0 % [facility] MCH (RBC) [Entitic mass] 28.6 pg 26.7 - 34.0 pg [facility] MCHC (RBC) [Mass/Vol] 32.6 g/dL 29.9 - 35.2 g/dL [facility] MCV (RBC) [Entitic vol] 87.6 fL 81.0 - 99.0 fL [facility] MONOCYTES ABSOLUTE AUTO 0.4 [facility] Monocytes/100 WBC (Bld) 5.3 % 1.7 - 12.0 % [facility] NEUTROPHILS ABSOLUTE AUTO 5.9 [facility] Neutrophils/100 WBC (Bld) 73.1 % 43.0 - 75.0 % [facility] Platelet mean volume (Bld) [Entitic vol] 10.9 fL 9.5 - 13.5 fL [facility] TBH EO # 0.1 [facility] TBH PLT 218 [facility] TB RBC 3.88 Low [facility] TB WBC 8.1 [facility] CLINISYNC [facility] Urinalysis macro (dipstick) panel (U)on 06-27-2024 Bilirubin, UA Negative Negative - 4(70) +++ mg/dL [facility] Blood, UA Negative Negative - 50 Mukesh/mcL [facility] Clarity, UA Clear [facility] Color, UA Light Yellow [facility] Glucose, UA Negative Negative - 1999(110) ++++ mg/dL [facility] Interpretation and review of laboratory results Normal [facility] Ketones, UA Negative Negative - 160(16) ++++ mg/dL [facility] Leukocytes, UA Negative Negative - 500+++ Shannon/mcL [facility] Nitrite, UA Negative Negative - Positive [facility] Comment on above: ` pH, UA 6 5 - 9 [facility] Protein, UA Negative Negative - 1999(20) ++++ mg/dL [facility] Spec Grav, UA 1.025 1 - 1.03 [facility] Urobilinogen, UA 1.0 0.2 - 12 mg/dL [facility] US OB FOLLOW UP TRANSABDOMIN AL APPROACHon [...] II, MD, PHD at 11-Jul-2024 11:47:38 PM [facility] Normal Not Available Comment on above: [...] 6 oz EFW by: Hadlock (HC-AC-FL) Extended Chemical Analyst 4.7 mm CM 8.4 mm Nasal bone [...] normal LVOT view: normal 3-vessel view: normal 5-joddir-kfoubqz view: normal Heart / Thorax Situs: situs [...] By: Leonid Myers M.D. MATERNAL MEDICINE [facility] Radiology Study observation (narrative) [facility] US BREAST COMPLETE RIGHTo n 05-31-2024 [...] GDLNon AGE GDLN ACOG TESTING Note . [facility] Comment on above: TESTS RESULT FLAG UN ITS REF RANGE LAB Clinician Provided Cytology Information Source.............Cervix Other.............. No. of containers..01 ThinPrep Vial Age Algo ACOG Akua... FLAG LEGEND: L-Low Normal,H-High Normal,LL-Alert Low,HH-Alert High <-Panic Low,>-Panic High,A-Abnormal,AA-Critical Abnormal Performed at: 01 =G [facility] [place] [address] Maribel Martin MD, HPV APTIMA Negative Negative [facility] Comment on above: This nucleic acid am plification test detects fourteen high- risk HPV types (16,18,31,33,35,39,45,51,52,56,58,59,66,68) without differentiation. Performed at: = - [facility] [id number] Veneer Taper: Maribel Martin MD, Phone: [phone] Performed at: - [facility] [id number] Veneer Taper: Maribel Martin MD, Phone: [phone] IGP, APTIMA HPV, RFX 16/18,45 Note . [facility] Comment on above: TESTS RESULT FLAG UN ITS REF RANGE LAB DIAGNOSIS: 02 NEGATIVE FOR INTRAEPITHELIAL LESION OR MALIGNANCY. Specimen adequacy: 02 Satisfactory for evaluation. No endocervical component is identified. An endocervical component is not commonly seen in the patient. Performed by: 02 Salud Hui Wet Trimmer (ASCP) . 02 Note: Note 02 The [...] Low,>-Panic High,A-Abnormal,AA-Critical Abnormal Performed at: [address] [address] Maribel Martin MD, SPATULA-ALONE CERVIX CLINIS[facility] RECURRENT VAGINITIS (HTRX)on 04-20-2024 ATOPOBIUM VAGINAE 0 [facility] ATOPOBIUM VAGINAE Not detected [facility] BVAB 2,3 (BACTERIAL VAGINOSIS ASSOCIATED BACTERIA 2, 3); MOBILUNCUS SPP 0 [facility] BVAB 2,3 (BACTERIAL VAGINOSIS ASSOCIATED BACTERIA 2, 3); MOBILUNCUS SPP Not detected [facility] JOELLE ALBICANS, PARAPSILOSIS, TROPICALIS 0 [facility] JOELLE ALBICANS, PARAPSILOSIS, TROPICALIS Not detected [facility] JOELLE GLABRATA 0 [facility] JOELLE GLABRATA Not detected [facility] JOELLE KRUSEI 0 [facility] JOELLE KRUSEI Not detected [facility] CHLAMYDIA TRACHOMATIS 0 [facility] CHLAMYDIA TRACHOMATIS Not detected [facility] GARDNERELLA VAGINALIS 0 [facility] GARDNERELLA VAGINALIS Not detected [facility] MEGASPHAERA (TYPES 1, 2) 0 [facility] MEGASPHAERA (TYPES 1, 2) Not detected [facility] MYCOPLASMA GENITALIUM 0 [facility] MYCOPLASMA GENITALIUM Not detected [facility] NEISSERIA GONORRHOEAE 0 [facility] NEISSERIA GONORRHOEAE Not detected [facility] TRICHOMONAS VAGINALIS 0 [facility] TRICHOMONAS VAGINALIS Not detected [facility] Urinalysis macro (dipstick) panel (U)on 04-19-2024 Bilirubin, UA Negative Negative - 4(70) +++ mg/dL [facility] Blood, UA Negative Negative - 50 Mukesh/mcL [facility] Clarity, UA Clear [facility] Color, UA Yellow [facility] Glucose, UA Negative Negative - 2000(110) ++++ mg/dL [facility] Interpretation and review of laboratory results Normal [facility] Ketones, UA Negative Negative - 160(16) ++++ mg/dL [facility] Leukocytes, UA Negative Negative - 500+++ Shannon/mcL [facility] Nitrite, UA Negative Negative - Positive [facility] pH, UA 7.5 5 - 9 [facility] Protein, UA Negative Negative - 2000(20) ++++ mg/dL [facility] Spec Grav, UA 1.015 1 - 1.03 [facility] Urobilinogen, UA 0.2 0.2 - 12 mg/dL [facility] ALL CBC WITH AUTO DIFFon BASOPHILS ABSOLUTE AUTO 0 [facility] Basophils/100 WBC (Bld) 0.4 % 0.2 - 2.0 % [facility] Eosinophils/100 WBC (Bld) 0.9 % 0.9 - 7.0 % [facility] Erythrocyte distribution width (RBC) [Ratio] 13.1 % 11.0 - 15.0 % [facility] Hematocrit (Bld) [Volume fraction] 36.9 % 36.0 - 48.0 % [facility] Hemoglobin (Bld) [Mass/Vol] 12.3 g/dL 12.0 - 16.0 g/dL [facility] IMMATURE GRANULOCYTES ABS AUTO 0.07 High [facility] Immature granulocytes/100 WBC (Bld) 1 % High 0.0 - 0.5 % [facility] Interpretation and review of laboratory results Abnormal [facility] LYMPHOCYTES ABSOLUTE AUTO 1.8 [facility] Lymphocytes/100 WBC (Bld) 25.9 % 20.5 - 60.0 % [facility] MCH (RBC) [Entitic mass] 29.9 pg 26.7 - 34.0 pg [facility] MCHC (RBC) [Mass/Vol] 33.3 g/dL 29.9 - 35.2 g/dL [facility] MCV (RBC) [Entitic vol] 89.6 fL 81.0 - 99.0 fL [facility] MONOCYTES ABSOLUTE AUTO 0.5 [facility] Monocytes/100 WBC (Bld) 6.4 % 1.7 - 12.0 % [facility] NEUTROPHILS ABSOLUTE AUTO 4.6 [facility] Neutrophils/100 WBC (Bld) 65.4 % 43.0 - 75.0 % [facility] Platelet mean volume (Bld) [Entitic vol] 12 fL 9.5 - 13.5 fL [facility] TBH EO # 0.1 [facility] TB PLT 169 [facility] TB RBC 4.12 Low [facility] TB WBC 7 [facility] HCG ( test) Ql (U)o n 03-11-2024 Interpretation and review of laboratory results Abnormal [facility] Preg Test, Ur Positive Negative [facility] Urinalysis macro (dipstick) panel (U)on 03-11-2024 Bilirubin, UA Negative Negative - 4(70) +++ mg/dL [facility] Blood, UA Negative Negative - 50 Mukesh/mcL [facility] Clarity, UA Clear [facility] Color, UA Yellow [facility] Glucose, UA Negative Negative - 1999(110) ++++ mg/dL [facility] Interpretation and review of laboratory results Normal [facility] Ketones, UA Negative Negative - 160(16) ++++ mg/dL [facility] Leukocytes, UA Negative Negative - 500+++ Shannon/mcL [facility] Nitrite, UA Negative Negative - Positive [facility] pH, UA 7 5 - 9 [facility] Protein, UA Negative Negative - 1999(20) ++++ mg/dL [facility] Spec Grav, UA 1.02 1 - 1.03 [facility] Urobilinogen, UA 0.2 0.2 - 12 mg/dL [facility] Ambulatory Visit Summaryon 1 04-30-2023 Ambulatory Visit Summary Ambulatory Visit Summary NELLI CARPENTER :1990 Visit Date:02/28/2024 Ambulatory Visit Instructions Your Diagnosis Right otitis media with effusion Sinus congestion BMI 34.0-34.9,adult Your Care Team Attending Physician - MADALYN LOZADA, TIARRA Primary Care Physician - Luis Miguel CANTU, Karen Lott This Is Your Medications List amoxicillin (amoxicillin [...] with effusion Duration: 10 Days Pickup at [facility] #[id number] Pharmacy Information [facility] #[id number]: [address], [place] [id number] [phone] Allergies No Known Allergies Problems Ongoing - [...] choosing us for your care. Normal [facility] Family Medicine Office/Clini c Noteon 02-28-2024 Family Medicine Office/Clinic Note Family Medicine Office/Clinic Note Chief Complaint ear pain, cough, sore throat HPI Staff 33 year old female presents with bilateral ear pain- right is worse, cough, sore throat, mild head pressure, congestion symptoms began yesterday pt it 10 weeks History of Present Illness Reviewed and agree with above documented HPI by medical biller/coder. Portions of this record may have been created with voice recognition artificial intelligence software, specifically [employer], [employer] and or [employer]. Substitutions may have occurred due to the inherent limitations of voice recognition and artificial intelligence software. Patient is a 33-year-old female who presents to [facility], for right ear pain, sinus congestion, [...] at this time. 33-year-old female presented to [facility], for right otitis media effusion, sinus [...] for amoxicillin, instructed she can only take iyng-xmd-qyvkllt Tylenol for body aches, headaches, and fevers since she is . Given a work excuse note. Follow-up with primary care provider as needed. 1. Right otitis media with effusion (H65.91: Unspecified nonsuppurative otitis media, right ear) See above Ordered: amoxicillin, 960 mg = 12 mL, Oral, q12hr, X 10 day(s), # 240 mL, Refills(s) 0, Pharmacy: [facility] #[id number], 158, cm, 02/28/24 9:01:00 EST, Height/Length Dosing, [...] weight management wi (more content not included)... [facility] Comment on above: Result Comment: Elec tronically Signed By: MADALYN LOZADA, TIARRA\.br\Date and Time Signed: 02/28/24 09:58 EST Patient Letter FTon [address] [facility] Patient Letter [facility] [address] [place] [address] February 28, 2024 NELLI [place]ENTER [place] [address] : 1990 Please excuse NELLI CARPENTER from work . Date and/or Time of Absence: From: 02/29/24 May return to work on: 03/01/24 Restrictions: None Comments: Please excuse due to an acute illness. Provider Signature: Tiarra Katz PA-C [address] [place] [address] [place] [address] [facility] CNNURSEon 02-09-2024 CNNURSE Nurse Visit (REIAV) NELLI CARPENTER ([id number]) 1990 F Date Time Provider Department 02/09/24 10:30 AM NURSE [facility] L[facility]NA LELAJimmie During your visit today, we recorded the following information about you: Parth Clark MD 02/09/2024 11:28 AM Signed Scan Visit Patient here for scan. See imaging documentation. MD Diego Bajwa Lauren, APRN.FACE AND FILL PACKER 02/09/2024 12:28 PM Signed Nelli Carpenter here [...] by U/S 7 w + 3 d PALUA by U/S: 09/24/2024 Assigned: based on the LMP, selected on 02/09/2024 Assigned GA 7 w + 3 d Assigned PAULA: 09/24/2024 FHR: 143 Plan Move on to OB Vidhya Pitt APRN.FACE AND FILL PACKER February 09, 2024 12:27 PM Referring Provider: ANDRESSA ABRAHAM [[id number]] Allergies As of Date: 02/09/2024 (No Known Allergies) Date Reviewed: 01/20/2024 Reviewed by: Andressa Abraham APRN.FACE AND FILL PACKER - Fully Assessed Visit Diagnosis: resulting from assisted reproductive technology in first trimester [O09.811] Order(s):OBSTETRIC ULTRASOUND [facility] [[id number]] Order #: [id number]. #:[id number] WPOINTQty: 1 Prescriptions as of 02/09/2024 - vit/iron fum/folic ac ( 1 + 1 ORAL) Take by mouth. - mv-min/iron/folic/calci um/vitK (WOMEN'S MULTIVITAMIN ORAL) Take by mouth. Problem List As Of Date: 02/09/2024 (None) Encounter Status:Closed by PARTH CLARK on 02/09/24 Normal [facility] Examination level ultrasound on 02-09-2024 Indication Viability; IUI done on 01-02-24; obesity >30 Impression - Single, live, intrauterine . - An intrauterine gestational sac with a yolk sac and pole is present. - Abanda rump length measurement is consistent with the [...] Read By: Parth Clark M.D. MATERNAL MEDICINE [facility] Radiology Study observation (narrative) [facility] B-HCG SerPl-aCncon 4 HCG.beta subunit Qn 2270.0 m[IU]/mL High <5.0 [facility] Comment on above: Order Comment: Speci men Type: BLOOD SPECIMENOrdering Facility: [facility] Address: [address] [place] [address] Result Comment: NOBLE TITATIVE HCG NORMAL RANGES Weeks of Gestation (Weeks Since LMP) 3 Weeks (5.8-71.2 mIU/mL) 4 Weeks (9.5-750 mIU/mL) 5 Weeks (217-7138 mIU/mL) 6 Weeks (158-36980 mIU/mL) 7 Weeks (3697-844195 mIU/mL) 8 Weeks (64419-207215 mIU/mL) 9 Weeks (62241-009883 mIU/mL) 10 Weeks (42749-423678 mIU/mL) 12 Weeks (07369-537217 mIU/mL) Referenced to 4th IS of [facility] Performed By: #### 2 1198-7 ####[facility] LABCLIA [id number] [place] [address] [place] B-HCG SerPl-aCncon 4 HCG.beta subunit Qn 792.1 m[IU]/mL High <5.0 [facility] Comment on above: Order Comment: Speci men Type: BLOOD SPECIMENOrdering Facility: [facility] Address: [address] [place] [address] Result Comment: NOBLE TITATIVE HCG NORMAL RANGES Weeks of Gestation (Weeks Since LMP) 3 Weeks (5.8-71.2 mIU/mL) 4 Weeks (9.5-750 mIU/mL) 5 Weeks (217-7138 mIU/mL) 6 Weeks (158-74882 mIU/mL) 7 Weeks (3697-816188 mIU/mL) 8 Weeks (51118-209959 mIU/mL) 9 Weeks (15847-390157 mIU/mL) 10 Weeks (29594-709941 mIU/mL) 12 Weeks (67140-104611 mIU/mL) Referenced to 4th IS of [facility] Performed By: #### 2 1198-7 ####[facility] LABCLIA [id number] [address] [place] CNPNon 01-18-2024 CNPN Telephone (REIBD) NELLI CARPENTER ([id number]) 1990 F Date Time Provider Department 01/18/24 ANDRESSA ABRAHAM During your visit today, we recorded the following information about you: Destiny Peters 01/18/2024 10:36 AM Signed Please call patient back regarding next steps. Jessi Yoo PA-C 01/18/2024 4:03 PM Signed Patient calls with positive urine test. History of ectopic: No History of SAB: Yes History of pelvic/abdominal surgeries: Yes, DANNV LMP 12/18, fertility medications used this cycle [...] Date Reviewed: 11/23/2023 Reviewed by: Andressa Abraham APRN.FACE AND FILL PACKER - Fully Assessed Reason for Visit: +hpt 01/15 after an iui [Other] Primary Visit Diagnosis:Encounter for test, result positive [Z32.01] Order(s):HCG QUANTITATIVE [SQHCGQT] Order #: [id number] STANDING Prescriptions as of 01/18/2024 - vit/iron [...] Encounter Status:Closed by JESSI YOO on 01/18/24 [facility] CNOVon 01-02-2024 CNOV Office Visit (REIBD) NELLI CARPENTER ([id number]) 1990 F Date Time Provider Department 01/02/24 [...] Cycle Day: 15 Last menstrual period: 12/19/2023 [place] Protocol: UNIVERSAL PROTOCOL / SAFETY CHECKLIST Procedure [...] discussed with the Patient or Patient's Authorized Claims Support Specialist. As applicable, any other physician, advance practice provider, medical student, or other health professional student that will be observing or involved in the sensitive examination for educational or training purposes was discussed with the Patient or Authorized Claims Support Specialist. The Patient or Authorized Claims Support Specialist has agreed to proceed with the sensitive examination. (Sensitive examination includes inspection and/or palpation of the breasts, pelvis, prostate and anorectal regions) Patient declined supervisor epoxy fabrication. IUI IUI Date: 01/02/24 Partner's Name: Wanda [...] 01/02/2024 11:46 AM Signed IUI Xytex #: [id number] Washed frozen specimen Post: 122 m/ml, 63% Insem#: 34.7 million Referring Provider: ANDRESSA ABRAHAM [[id number]] Allergies As of Date: 01/02/2024 (No Known Allergies) Date Reviewed: 11/23/2023 Reviewed by: Andressa Abraham, ELECTRONIC ASSEMBLER GROUP LEADER.FACE AND FILL PACKER - Fully Assessed Primary Visit Diagnosis:Encounter for [...] Status:Closed by ANYI GANT on 01/02/24 Normal [facility] CNOV Office Visit (ANDRBE ) NELLI CARPENTER ([id number]) 1990 F Date Time Provider Department 01/02/24 10:30 AM ANDROLOGY MEDICAL BILLING CODER ANDRBE During your visit today, we recorded the following information about you: Flavia Elizondo 01/02/2024 11:47 AM Signed Thaw for IUI Flavia Elizondo Referring Provider: ANDRESSA ABRAHAM [[id number]] Allergies As of Date: 01/02/2024 (No Known Allergies) Date Reviewed: 11/23/2023 Reviewed by: Andressa Abraham APRN.FACE AND FILL PACKER - Fully Assessed Primary Visit Diagnosis:Procreative management [...] Encounter Status:Closed by FLAVIA ELIZONDO on 01/02/24 [facility] CNOVon 12-05-2023 CNOV Office Visit (REIBD) CHUCKY CARPENTERN ([id number]) 1990 F Date Time Provider Department 12/05/23 [...] Cycle Day: 15 Last menstrual period: 11/21/2023 [place] Protocol: UNIVERSAL PROTOCOL / SAFETY CHECKLIST Procedure [...] EMERGENT procedures): No specimen collected. Patient declined supervisor epoxy fabrication. Uma Aguilera MD IUI IUI Date: 12/05/23 [...] after wash): 49 million Donor ID #: [id number] Cycle reviewed, all questions answered. Pt instructed to take a test in 17 days if no menses and call with results. SIGNATURE: Uma Aguilera MD PATIENT NAME: Nelli Carpenter DATE: December 05, 2023 TIME: 10:31 AM I was present and immediately available for the entire procedure. Patient underwent an intrauterine insemination. Myriam Dominguez MD, Stephanie Barnett 12/06/2023 8:45 AM Signed IUI Xytex #[id number] Frozen washed specimen Post: 145 Million/mL, 68% Insem #: 49 Million Referring Provider: ANDRESSA ABRAHAM [[id number]] Allergies As of Date: 12/05/2023 (No Known Allergies) Date Reviewed: 11/23/2023 Reviewed by: Andressa Abraham, ELECTRONIC ASSEMBLER GROUP LEADER.FACE AND FILL PACKER - Fully Assessed Primary Visit Diagnosis:Female infertility [...] Encounter Status:Closed by MYRIAM DOMINGUEZ on 12/06/23 [facility] CNOV Office Visit (ANDRBE ) NELLI CARPENTER ([id number]) 1990 F Date Time Provider Department 12/05/23 9:30 AM [facility] During your visit today, we recorded the following information about you: Stephanie Lara 12/05/2023 10:23 AM Signed Thaw for IUI Stephanie Lara Referring Provider: ANDRESSA ABRAHAM [[id number]] Allergies As of Date: 12/05/2023 (No Known Allergies) Date Reviewed: 11/23/2023 Reviewed by: Andressa Abraham, WINDY.FACE AND FILL PACKER - Fully Assessed Primary Visit Diagnosis:Procreative management [...] Status:Closed by STEPHANIE LARA on 12/05/23 [id number] HNO ID: [id number] Author: ANDRESSA ABRAHAM APRN.FACE AND FILL PACKER Service: ? 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 Tubal Patency Testing: defer for now Sperm Source:Donor Frozen Treatment Protocol: Natural Cycle Monitoring Plan: OPKs Ovidrel Trigger: No Supplemental Progesterone: None Comments: None Andressa Abraham APRN.FACE AND FILL PACKER 11/23/2023 Normal [facility] Progesterone [Mass/Vol] 7.4 ng/mL Normal See comment [facility] Comment on above: Order Comment: Speci men Type: BLOOD SPECIMENOrdering Facility: [facility] Address: [address] [place] [address] Result Comment: Mens trual Cycle Progesterone Reference Ranges: Follicular: <1.0 ng/mL Ovulation: <12.1 ng/mL Luteal: 1.8 to 23.9 ng/mL. Progesterone Reference Ranges vary by gestational period: First Trimester: 11.0 to 44.3 ng/mL Second Trimester: 25.4 to 83.3 ng/mL Third Trimester: 58.7 to 214 ng/mL Post menopausal Progesterone: <0.5 ng/mL Reference: 1. Progesterone (Progesterone III) [package insert V 1.0 Uzbek]. [facility], [place], [place]. December 2014. Performed By: #### 2 839-9 ####[facility] LABCLIA [id number] [address] [place] Azar 10-12-2023 LEXUSN Telephone (REIBD) NELLI [id number]) 1990 F Date Time Provider Department 10/12/23 [...] Date Reviewed: 09/11/2023 Reviewed by: Andressa Abraham APRN.FACE AND FILL PACKER - Fully Assessed Reason for Visit: +ovulation test SatANDSund d14 AND 15 partner calling [Other] Primary Visit Diagnosis:Female infertility [N97.9] Order(s):PROGESTERONE [SQPROG] Order #: [id number] FUTURE Prescriptions as of 10/12/2023 - vit/iron fum/folic ac ( 1 + 1 ORAL) Take by mouth. - mv-min/iron/folic/calci um/vitK (WOMEN'S MULTIVITAMIN ORAL) Take by mouth. - BIOTIN ORAL Take by mouth once daily. - levonorgestrel (MIRENA) 20 mcg/24 hr IUD 1 Each by INTRAUTERINE route one time only. Problem List As Of Date: 10/12/2023 (None) Encounter Status:Closed by JESSI YOO on 10/12/23 [facility] Ania 09-11-2023 CNOV Office Visit (REIBD) NELLI CARPENTER ([id number]) 1990 F Date Time Provider Department 09/11/23 [...] favorite donors - send to me via [employer] to confirm Confirmed best vial type to order: IUI/prewashed Will need to follow up to firm up treatment plan and review IUI scheduling instructions. Andressa Abraham APRN.FACE AND FILL PACKER September 11, 2023 8:08 AM I spent a total of 50 minutes on the date of the service which included preparing to see the patient, bhib-nv-xtva patient care, completing clinical documentation, obtaining and/or [...] to communic (more content not included)... Normal [facility] Ambulatory Visit Summaryon 1 05-17-2022 Ambulatory Visit Summary NELLI CARPENTER :1990 Visit Date:03/16/2023 Ambulatory Visit Instructions Your Diagnosis Wrist pain Your Care Team Attending Physician - MADALYN LOZADA, TIARRA Primary Care Physician - Luis Miguel CANTU, Karen Lott This Is Your Medications List cyclobenzaprine (Flexeril [...] for choosing us for your care. Normal [facility] Family Medicine Office/Clini c Noteon 03-16-2023 [...] data available Patient Education Wrist Pain, Adult, Rdxl-gd-Vokl Problem List/Past Medical History Ongoing Acute sinusitis [...] DTaP, unspecified formulation 1990 Recorded Normal [facility] Comment on above: Result Comment: Elec [...] any changes in your symptoms. ? Take bckt-cuw-iqohhsd and prescription medicines only as told by [...] Reviewed: 02/02/2020 Elsevier Patient Education ? 2022 [employer] Normal [facility] XR Wrist 3+ Views [...] mGy = . DAP = . Normal [facility] Covid 19 Resultson 1 SARS-CoV-2 (COVID-19) [...] You may also be contacted by the [facility] to see if any of your [...] or Naproxen (Aleve) can also be used. Ffls-xvw-jxwwshr cough and cold medicines can be used according to the instructions on the package. Some lwrn-kdx-zocmzpf medicines also contain acetaminophen. Make sure you [...] water are not available, use alcohol-based hand neurological surgeon. Avoid touching your eyes, nose, and mouth [...] 24 de (more content not included)... Normal [facility] INFLUENZA A/B, COVID 2019 PC R,SYMPTOMATICon 03-12-2021 INFLUENZA A, PCR Not detected Normal Not Detected [facility] Comment on above: Result Comment: Resp iratory virus testing is performed routinely by PCR for Influenza A/B and RSV. If Influenza and RSV PCR are negative, testing for parainfluenza 1,2,3 viruses and adenovirus is routinely performed for oncology inpatients and intensive care unit patients at [facility] and is available on request on other patients by calling Laboratory Client Services at [phone]. Not Detected results do not preclude Influenza A/B or RSV infections since the adequacy of sample collection or low viral burden may impact the clinical sensitivity of this test method. Performed By: #### C OINP #### [facility] [address] [place] [address] INFLUENZA B, PCR Not detected Normal Not Detected [facility] Comment on above: Result Comment: Resp iratory virus testing is performed routinely by PCR for Influenza A/B and RSV. If Influenza and RSV PCR are negative, testing for parainfluenza 1,2,3 viruses and adenovirus is routinely performed for oncology inpatients and intensive care unit patients at [facility] and is available on request on other patients by calling Laboratory Client Services at [phone] Not Detected results do not preclude Influenza [...] by the Microbiology Laboratory, Department of Pathology, [place], [place]. It has not been cleared or approved by the US Food and Drug Administration; however, FDA clearance or approval is not currently required for clinical use. This test should not be regarded as investigational or for research purposes. Performed By: #### C OINP #### [facility] [address] [place] [address] SARS-CoV-2 (COVID-19) RNA PENNY+probe Ql (Unsp spec) Not detected Normal Not Detected [facility] Comment on above: Result Comment: . [...] patient management decisions. Fact sheet for providers: https://www.fda.gov/media/518661/download Fact sheet for patients: https://www.fda.gov/media/081813/download This test has received FDA Emergency Use Authorization (EUA) and has been verified by [facility] ([facility]). This test is only authorized for the duration of time that circumstances exist to justify the authorization of the emergency use of in vitro diagnostic tests for the detection of SARS-CoV-2 virus and/or diagnosis of COVID-19 infection under section 564(b)(1) of the Act, 21 U.S.C. 360bbb-3(b)(1), unless the authorization is terminated or revoked sooner. [facility] is certified under CLIA-88 as qualified to perform high complexity testing. Testing is performed in the [facility] laboratories located at [address] [place] [address]. Performed By: #### C OINP #### [address] [place] [address] INFLUENZA A/B, COVID 2019 PC R,SYMPTOMATICon 03-11-2021 DATE OF SYMPTOM ONSET [[id number]]? [id number] Normal [facility] Comment on above: Performed By: #### C OINP #### [address] [place] [address] Lab Specimen Source Nasal, Nasopharyngeal Normal [facility] Comment on above: Performed By: #### C OINP #### [address] [place] [address] Provider Note - ED v2on 02-27 Provider [...] a day Drug Name: brompheniramine/pseudoe phedrine/dextromethorph an [id number]/5 mL oral syrup Instructions: 5 milliliter(s) orally every 4 to 6 hours, As Needed Drug Name: cetirizine 10 mg oral tablet Instructions: 1 tab(s) orally once a day SIGNIFICANT EVENTS: Other Description:NO SURGICAL HISTORY THIS YEAR Additional Notes:02/2021 Description:NON SMOKER Additional Notes:02/2021 Past Medical History Description:NO CHRONIC HEALTH ISSUES Additional Notes:02/2021 TANKER DRIVER: Is : no Is : no REVIEW [...] SIGNS: T PRBP SpO2O2(LPM) %FiO2 Method 11-Mar-2021 10:17:[id number] PHYSICAL EXAM CONSTITUTIONAL: Appearance: well appearing [...] Electronic Signatures for Addendum Section: Filomena Zamora ([employer]LECTRON[employer]SEMBLER [employer] LEADER-FACE AND FILL PACKER) (Signed Addendum 12-Mar-2021 09:58) Left message for call back regarding test results for pt, and her 2 daughters. Filomena Zamora (ELECTRONIC ASSEMBLER GROUP LEADER-FACE AND FILL PACKER) (Signed Addendum 12-Mar-2021 13:53) Spoke with patient and advised her of negative Covid test results, marlo (more content not included)... Normal [facility] Hemoglobin and Hematocriton 12-10-2016 Hematocrit (HCT) 30.2 % Low 36.5-46.6 [facility] thcare Comment on above: Performed By: #### 2 [id number] ####[facility] [address] [place] [address] Hemoglobin mass conc (Bld) 9.8 g/dL Low 11.8-15.3 [facility] Healthcare Comment on above: Performed By: #### 2 [id number] ####[facility] Sad[address] [place] [address] CBC With Differentialon 11-28 Basophils Auto #/vol (Bld) 0.05 10*3/uL Normal 0.01-0.07 [facility] Healthcare Comment on above: Performed By: #### 2 [id number] ####[facility] Ecc[address] [place] [address] Basophils/100 WBC Auto (Bld) 0.5 % Normal 0.1-1.2 [facility] Healthcare Comment on above: Performed By: #### 2 [id number] ####[facility] Vib[address] [place] [address] Eosinophils 0.08 10*3/uL Normal 0.04-0.50 [facility] Comment on above: Performed By: #### 2 [id number] ####[facility] Net[address] [place] [address] Eosinophils/100 leukocytes 0.7 % Normal 0.0-8.1 [facility] Healthcare Comment on above: Performed By: #### 2 [id number] ####[facility] Dwc[address] [place] [address] Erythrocyte distribution width Auto Ratio (RBC) 14.8 % Normal 12.0-15.4 [facility] Healthcare Comment on above: Performed By: #### 2 [id number] ####[facility] [address]si[address] [place] [address] Erythrocytes (RBC) 0.0 /100{WBCs} Normal [facility] Comment on above: Performed By: #### 2 [id number] ####[facility] Fsx[address] [place] [address] Erythrocytes (RBC) 3.87 10*6/uL Normal 3.85-5.10 [facility] Comment on above: Performed By: #### 2 [id number] ####[facility] Bet[address] [place] [address] Erythrocytes (RBC) 0.00 10*3/uL Normal [facility] Healthcare Comment on above: Performed By: #### 2 [id number] ####[facility] Foc[address] [place] [address] Hematocrit (HCT) 34.5 % Low 36.5-46.6 [facility] thcare Comment on above: Performed By: #### 2 [id number] ####[facility] [address] [place] [address] Hemoglobin mass conc (Bld) 11.4 g/dL Low 11.8-15.3 [facility] Healthcare Comment on above: Performed By: #### 2 656017 ####[facility] [address]af[address] [place] [address] Imm Grans Absolute 0.55 10*3/uL High 0.00-0.21 [facility] Healthcare Comment on above: Performed By: #### 2 [id number] ####[facility] Zgt[address] [place] [address] Immature granulocytes #/vol (Bld) 5.0 % Normal [facility] Healthcare Comment on above: Performed By: #### 2 [id number] ####[facility] Hpv[address] [place] [address] Lymphocytes 1.91 10*3/uL Normal 0.40-2.84 [facility] Comment on above: Performed By: #### 2 [id number] ####[facility] Yli[address] [place] [address] Lymphocytes/100 leukocytes 17.2 % Normal 15.7-50.5 [facility] Healthcare Comment on above: Performed By: #### 2 [id number] ####[facility] Mjn[address] [place] [address] MCH 29.5 pg Normal 27.5-33.0 [facility] Healthcare Comment on above: Performed By: #### 2 [id number] ####[facility] [address]kl[address] [facility] [address] MCHC mass conc (RBC) 33.0 g/dL Normal 30.1-35.0 [facility] Healthcare Comment on above: Performed By: #### 2 [id number] ####[facility] Ufb[address] [facility] [address] MCV 89.1 fL Normal 85.4-100.0 [facility] Healthcare Comment on above: Performed By: #### 2 [id number] ####[facility] [address] [place] [address] Monocytes 0.84 10*3/uL High 0.25-0.83 [facility] Healthca re Comment on above: Performed By: #### 2 614171 ####[facility] [address] [place] [address] Monocytes/100 leukocytes 7.6 % Normal 4.8-12.7 [facility] Healthcare Comment on above: Performed By: #### 2 727534 ####[facility] [address] [place] [address] Neutrophils 7.66 10*3/uL High 1.95-6.85 [facility] are Comment on above: Performed By: #### 2 606914 ####[facility] [address] [place] [address] Neutrophils/100 leukocytes 69.0 % Normal 36.8-73.2 [facility] Healthcare Comment on above: Performed By: #### 2 675135 ####[facility] Sxs[address] [place] [address] Platelet mean volume (PMV) 10.7 fL Normal 9.9-12.1 [facility] Healthcare Comment on above: Performed By: #### 2 [id number] ####[facility] T[address] [place] [address] Platelets 197 10*3/uL Normal 155-404 [facility] Healthcar e Comment on above: Performed By: #### 2 063839 ####[facility] [address] [place] [address] RDW SD 48.2 fL Normal 39.3-48.6 [facility] Healthcare Comment on above: Performed By: #### 2 [id number] ####[facility] Yzt[address] [place] [address] WBC (Leukocytes) 11.1 10*3/uL High 4.4-9.9 [facility] He althcare Comment on above: Performed By: #### 2 [id number] ####[facility] [address]wh[address] [place] [address] Pathology ([facility])on 12-09-2016 Pathology ([facility]) FINAL SURGICAL PATHOLOGY [id number] FINAL DIAGNOSISPLACENTA-THIRD TRIMESTER PLACENTA WITH ACCESSORY LOBE , 470 GRAMS.FOCAL FIBRIN PLAQUE FORMATION.FOCAL DYSTROPHIC MICROCALCIFICATIONS.THR EE-VESSEL UMBILICAL CORD, NEGATIVE FOR FUNISITIS. MEMBRANES, NEGATIVE FOR CHORIOAMNIONITIS.CLINIC AL HISTORY: 38 WEEKS INTRAUTERINE , HISTORY OF PREVIA WITH BLEEDINGOPERATION:PRIMA RY SECTIONSPECIMEN(S):(A) PLACENTA, THIRD TRIMESTERPerformed at [facility], [address] [place] [id number] DESCRIPTION:Received fresh, labeled with the patient's name, [...] are intact and range from0.05-0.1 cm in diameter.Claims Support Specialist sections of cord, membranes, and placenta are submitted in sixcassettes.TASSummary of cassettes:A1 - cordA2, A3 - membranesA4, A5, A6 - safety representative sections of placentaSigned Out by:ANABEL PITTMANeported: 12/11/2016 Normal [facility] Healthcare Comment on above: Performed By: #### S UR ####[facility] [address] [place] [address] Red Blood Cellson 12-09-2016 Erythrocytes (RBC) Normal [facility] He althcare Comment on above: Result Comment: [id number] released Performed By: #### R C ####[facility] (UNKNOWN)[address] [address] Type and Screenon 12-09-2016 Antibody Screen Negative Normal [facility] Healt hcare Comment on above: Performed By: #### T S3 ####[facility] [address] [place] [address] Group and Rh Positive Normal [facility] Healthca re Comment on above: Performed By: #### T S3 ####[facility] [address] [place] [address] PREG COMPL ECHO W/O NIKKI ALIZA VEYon [...] closed with length of 3.3 cm. Normal [facility] Culture Urineon 11-06-2016 Culture Urine STATUS: FINAL REPORT SITE: SOURCE: Urine Culture Urine: <1,000 cfu/ml--No growth Normal [facility] Comment on above: Performed By: #### 6 [id number] ####[facility] [address] [place] [address] Vital Signs Date Time Vital Sign Value Performing Clinician Facility 09-22-2024 14:10-0400 Body mass index (BMI) [Ratio] 37.38 kg/m2 Karyna BENITES Work Phone: [facility] 09-22-2024 14:10-0400 Body weight 95.71 kg Karyna BENITES Work Phone: [facility] 09-22-2024 14:10-0400 Diastolic blood pressure 70 mm[Hg] Karyna BENITES Work Phone: [facility] 09-22-2024 14:10-0400 Systolic blood pressure 110 mm[Hg] Karyna BENITES Work Phone: [facility] 09-07-2024 15:35-0400 Body mass index (BMI) [Ratio] 40.21 kg/m2 Andrea Prieto DO Work Phone: [facility] 09-07-2024 15:35-0400 Body weight 102.97 kg Andrea Conner DO Work Phone: [facility] 09-07-2024 15:35-0400 Diastolic blood pressure 76 mm[Hg] Andrea Conner DO Work Phone: [facility] 09-07-2024 15:35-0400 Systolic blood pressure 124 mm[Hg] Andrea Conner DO Work Phone: [facility] 08-31-2024 11:53-0400 Body mass index (BMI) [Ratio] 39.86 kg/m2 Karyna Craig PA Work Phone: [facility] 08-31-2024 11:53-0400 Body weight 102.06 kg Karyna Craig PA Work Phone: [facility] 08-31-2024 11:53-0400 Diastolic blood pressure 70 mm[Hg] Karyna Solizey PA Work Phone: [facility] 08-31-2024 11:53-0400 Systolic blood pressure 120 mm[Hg] Karyna Craig PA Work Phone: [facility] 08-23-2024 15:07-0400 Body mass index (BMI) [Ratio] 39.7 kg/m2 Andrea Conner DO Work Phone: [facility] 08-23-2024 15:07-0400 Body weight 101.66 kg Andrea Conner DO Work Phone: [facility] 08-23-2024 15:07-0400 Diastolic blood pressure 78 mm[Hg] Andrea Conner DO Work Phone: [facility] 08-23-2024 15:07-0400 Systolic blood pressure 120 mm[Hg] Andrea Conner DO Work Phone: [facility] 08-08-2024 14:32-0400 Body mass index (BMI) [Ratio] 39.33 kg/m2 Andrea Conner DO Work Phone: [facility] 08-08-2024 14:32-0400 Body weight 100.7 kg Andrea Conner DO Work Phone: [facility] 08-08-2024 14:32-0400 Diastolic blood pressure 78 mm[Hg] Andrea Conner DO Work Phone: [facility] 08-08-2024 14:32-0400 Systolic blood pressure 122 mm[Hg] Andrea Conner DO Work Phone: [facility] 07-25-2024 11:01-0400 Body mass index (BMI) [Ratio] 39.55 kg/m2 Dina Gerard [employer] Work Phone: [facility] 07-25-2024 11:01-0400 Body weight 101.27 kg Dina Gerard [employer] MA[employer] Work Phone: [facility] 07-25-2024 11:01-0400 Diastolic blood pressure 80 mm[Hg] Dina Moustapha [employer] Work Phone: [facility] 07-25-2024 11:01-0400 Systolic blood pressure 116 mm[Hg] Dina Moustapha [employer] Work Phone: [facility] 07-11-2024 11:22-0400 Body mass index (BMI) [Ratio] 39.37 kg/m2 Andrea Conner DO Work Phone: [facility] 07-11-2024 11:22-0400 Body weight 100.81 kg Andrea Conner DO Work Phone: [facility] 07-11-2024 11:22-0400 Diastolic blood pressure 80 mm[Hg] Andrea Conner DO Work Phone: [facility] 07-11-2024 11:22-0400 Systolic blood pressure 120 mm[Hg] Andrea Conner DO Work Phone: [facility] 06-22-2024 13:40-0400 Body mass index (BMI) [Ratio] 39.33 kg/m2 Andrea Conner DO Work Phone: [facility] 06-22-2024 13:40-0400 Body weight 100.7 kg Andrea Conner DO Work Phone: [facility] 06-22-2024 13:40-0400 Diastolic blood pressure 74 mm[Hg] Andrea Conner DO Work Phone: [facility] 06-22-2024 13:40-0400 Systolic blood pressure 118 mm[Hg] Andrea Conner DO Work Phone: [facility] 04-19-2024 10:48-0500 Body mass index (BMI) [Ratio] 37.2 kg/m2 Andrea Conner DO Work Phone: [facility] 04-19-2024 10:48-0500 Body weight 95.25 kg Andrea Conner DO Work Phone: [facility] 04-19-2024 10:48-0500 Diastolic blood pressure 80 mm[Hg] Andrea Conner DO Work Phone: [facility] 04-19-2024 10:48-0500 Systolic blood pressure 122 mm[Hg] Andrea Conner DO Work Phone: [facility] 02-28-2024 09:00-0500 Blood Pressure Location TIARRA MARXTIZ [facility] 02-28-2024 09:00-0500 Body temperature 98.96 [degF] TIARRA KATZ [facility] 02-28-2024 09:00-0500 Diastolic blood pressure 80 mm[Hg] TIARRA MARXTIZ [facility] 02-28-2024 09:00-0500 Heart rate 92 /min [place] KATZ [facility] 02-28-2024 09:00-0500 SaO2% (BldA) [Mass fraction] 98 % [facility] 02-28-2024 09:00-0500 Systolic blood pressure 124 mm[Hg] TIARRA KATZ [facility] 12-28-2023 08:37-0400 Body height 160 cm Karen Bolanos MD Work Phone: [facility] 12-28-2023 08:37-0400 Body mass index (BMI) [Ratio] 37.02 kg/m2 Karen Bolanos MD Work Phone: [facility] 12-28-2023 08:37-0400 Body temperature 98.6 [degF] Karen Bolanos MD Work Phone: [facility] 12-28-2023 08:37-0400 Body weight 94.8 kg Karen Bolanos MD Work Phone: [facility] 12-28-2023 08:37-0400 Diastolic blood pressure 78 mm[Hg] Karen Bolanos MD Work Phone: [facility] 12-28-2023 08:37-0400 Heart rate 76 /min Karen Bolanos MD Work Phone: [facility] 12-28-2023 08:37-0400 SaO2% (BldA) [Mass fraction] 98 % Karen Bolanos MD Work Phone: [facility] 12-28-2023 08:37-0400 Systolic blood pressure 116 mm[Hg] Karen Bolanos MD Work Phone: [facility] 06-08-2023 09:50-0400 Body height 160 cm Rahul Zheng MD Work Phone: [facility] 06-08-2023 09:50-0400 Body weight 89 kg Rahul Zheng MD Work Phone: [facility] 06-08-2023 09:50-0400 Diastolic blood pressure 83 mm[Hg] Rahul Zheng MD Work Phone: [facility] 06-08-2023 09:50-0400 Systolic blood pressure 132 mm[Hg] Rahul Zheng MD Work Phone: [facility] 03-16-2023 15:08-0500 Blood Pressure Location TIARRA KATZ [facility] 03-16-2023 15:08-0500 Body temperature 98.42 [degF] [place] [facility] 03-16-2023 15:08-0500 Diastolic blood pressure 84 mm[Hg] [place] KATZ [facility] 03-16-2023 15:08-0500 Heart rate 73 /min [facility] [facility] 03-16-2023 15:08-0500 SaO2% (BldA) [Mass fraction] 96 % [facility] 03-16-2023 15:08-0500 Systolic blood pressure 128 mm[Hg] [facility] K[facility] 03-11-2021 12:17-0500 Body height 160 cm Karen Luis Miguel Other Phone: [facility] 03-11-2021 12:17-0500 Body temperature 98.06 [degF] Karen Luis Miguel Other Phone: [facility] 03-11-2021 12:17-0500 Diastolic blood pressure 67 mm[Hg] Karen Luis Miguel Other Phone: [facility] 03-11-2021 12:17-0500 Heart rate 78 /min Karen Luis Miguel Other Phone: [facility] 03-11-2021 12:17-0500 Respiratory rate 20 /min Karen Luis Miguel Other Phone: [facility] 03-11-2021 12:17-0500 SaO2% (BldA) [Mass fraction] 97 % Karen Bolanos Other Phone: [facility] 03-11-2021 12:17-0500 Systolic blood pressure 101 mm[Hg] Karen Bolanos Other Phone: [facility] Encounters Encounter Date Encounter Type Care Provider Facility Start: 09-22-2024 End: 09-22-2024 Bamboo flowsheet Karyna BENITES Work Phone: [facility] Start: 09-22-2024 End: 09-22-2024 Bamboo flowsheet Karyna Craig PA Work Phone: [facility] Start: 09-22-2024 End: 09-22-2024 Postop follow up visit related to original px Karyna BENITES Work Phone: [facility] Comment on above: S/P section Start: 09-22-2024 End: 09-22-2024 ambulatory KARYNA CRAIG Not Available Start: 09-13-2024 End: 09-13-2024 Clinisync Result Encounter Andrea Conner DO Work Phone: [facility] Unsolicited Start: 09-13-2024 End: 09-13-2024 Clinisync Result Encounter Andrea Conner DO Work Phone: [facility] Unsolicited Start: 09-12-2024 End: 09-12-2024 Clinisync Result Encounter Andrea Conner DO Work Phone: [facility] Unsolicited Start: 09-12-2024 End: 09-12-2024 Clinisync Result Encounter Andrea Conner DO Work Phone: [facility] Unsolicited Start: 09-10-2024 End: 09-10-2024 Clinisync Result Encounter Andrea Conner DO Work Phone: [facility] Unsolicited Start: 09-10-2024 End: 09-10-2024 Clinisync Result Encounter Andrea Conner DO Work Phone: [facility] Unsolicited Start: 09-07-2024 End: 09-07-2024 ambulatory ANDREA OCNNER Not Available Start: 09-07-2024 End: 09-07-2024 flow sheet Andrea Conner DO Work Phone: [facility] Comment on above: Third trimester preg will; 37 weeks gestation of Start: 09-04-2024 End: 09-04-2024 Clinisync Result Encounter Andrea Conner DO Work Phone: [facility] Unsolicited Start: 09-04-2024 End: 09-04-2024 Clinisync Result Encounter Andrea Conner DO Work Phone: [facility] Unsolicited Start: 08-31-2024 End: 08-31-2024 Bamboo flowsheet Karyna BENITES Work Phone: [facility] Start: 08-31-2024 End: 08-31-2024 Bamboo flowsheet Karyna BENITES Work Phone: [facility] Start: 08-31-2024 End: 08-31-2024 ambulatory KARYNA CRAIG Not Available Start: 08-31-2024 End: 08-31-2024 flow sheet Karyna BENITES Work Phone: [facility] Comment on [...] 07-25-2024 End: 07-25-2024 Bamboo flowsheet Dina Gerard [employer] Work Phone: [facility] Start: 07-25-2024 End: 07-25-2024 Bamboo flowsheet Dina Gerard [employer] Work Phone: [facility] Start: 07-25-2024 End: 07-25-2024 flow sheet Dina Gerard [employer] MA[employer] Work Phone: [facility] Comment on [...] Start: 06-01-2024 End: 06-01-2024 ambulatory TRISTAN SOSA Facility:[facility] Start: 06-01-2024 End: 06-01-2024 Patient encounter procedure Whi Tech 3 Director [employer] [facility] Comment on above: Encounter for anatomic survey (Primary Dx); Obesity affecting in second trimester, unspecified obesity type; Class 1 obesity without serious comorbidity with body mass index (BMI) of 34.0 to 34.9 in adult, unspecified obesity type; 23 weeks gestation of Start: 05-31-2024 End: 05-31-2024 ambulatory ANDREA CONNER Not Available Start: 05-27-2024 End: 05-27-2024 Transcribe Orders Director [employer] Transcribe Provider Maternal Medicine Comment on above: Encounter for anatomic survey (Primary Dx) Start: 04-19-2024 End: 04-19-2024 Bamboo flowsheet Andrea Conner DO Work Phone: [facility] Start: 04-19-2024 End: 04-22-2024 Bamboo flowsheet Andrea Conner DO Work Phone: [facility] Start: 04-19-2024 End: 04-22-2024 Clinisync Result Encounter Andrea Conner DO Work Phone: [facility] External Department Unsolicited Start: 04-19-2024 End: 04-20-2024 External Result Encounter Andrea Conner DO Work Phone: [facility] Unsolicited Start: 04-19-2024 End: 04-19-2024 Patient encounter procedure Andrea Conner DO Work Phone: [facility] Start: 04-19-2024 End: 04-19-2024 Periodic preventive med est patient 18-39 yrs Andrea Conner DO Work Phone: [facility] Comment on above: Well woman exam with routine gynecological exam; Screening, , for anatomic survey; Vaginal discharge; STD exposure; Second trimester ; 16 weeks gestation of ; Mass of right breast, unspecified quadrant; Neoplasm of unspecified behavior of breast; Other acne Start: 04-19-2024 End: 04-19-2024 ambulatory ANDREA CONNER Not Available Start: 03-14-2024 End: 03-14-2024 Clinisync Result Encounter Andrea Conner DO Work Phone: [facility] External Department Unsolicited Start: 03-14-2024 End: [...] End: 02-28-2024 Patient encounter procedure TIARRA KATZ [facility] Start: 02-16-2024 End: 02-16-2024 ambulatory Andressa Tulio Jarad [employer]LECTRON[employer]SEM[employer]ER [employer] LEADER.FACE AND FILL PACKER Work Phone: [facility] Comment on above: Records Start: 02-09-2024 End: 02-09-2024 Nursing evaluation of patient and report Fern Lamar MD Work Phone: [facility] Comment on above: resulting from assisted reproductive technology in first trimester Start: 02-09-2024 End: 02-09-2024 ambulatory ANDRESSA BALDWINKEY Facility:[facility] Start: 01-21-2024 End: 01-21-2024 ambulatory JESSI OLI Facility:[facility] Start: 01-20-2024 End: 01-20-2024 ambulatory Andressa G Jarad ELECTRONIC ASSEMBLER GROUP LEADER.FACE AND FILL PACKER Work Phone: [facility] Comment on above: resulting from assisted reproductive technology in first trimester (Primary Dx) Start: 01-20-2024 End: 01-20-2024 Telemedicine consultation with patient Andressa Abraham ELECTRONIC ASSEMBLER GROUP LEADER.FACE AND FILL PACKER Work Phone: [facility] Start: 01-19-2024 End: 01-19-2024 ambulatory JESSI MIGUELLEN Facility:[facility] Start: 01-18-2024 End: 01-18-2024 Telephone encounter Andressa Abraham ELECTRONIC ASSEMBLER GROUP LEADER.FACE AND FILL PACKER Work Phone: [facility] Comment on above: +hpt 01/15 after an iui Start: 01-02-2024 End: 01-02-2024 ambulatory ANYI GANT Facility:[facility] Start: 01-02-2024 End: 01-02-2024 Patient encounter procedure Anyi Gant MD Work Phone: [facility] Comment on above: Encounter for artifi cial insemination (Primary Dx) Procreative manageme nt (Primary Dx) Start: 12-30-2023 End: 12-30-2023 ambulatory ANDRESSA ABRAHAM Facility:[facility] Start: 12-28-2023 End: 12-28-2023 Shreyas Bolanos MD Work Phone: [facility] Start: 12-28-2023 End: 12-28-2023 Shreyas Bolanos MD Work Phone: [facility] Start: 12-28-2023 End: 12-28-2023 Office outpatient visit 15 minutes Karen Bolanos MD Work Phone: [facility] Comment on above: Infertility, female (Primary Dx); BMI 37.0-37.9, adult; Morbid obesity (CMS/FORMERLY [facility]) Start: 12-28-2023 End: 12-28-2023 ambulatory KAREN BOLANOS Not Available Start: 12-05-2023 End: 12-05-2023 ambulatory ANDRESSA G JARAD Facility:[facility] Start: 12-05-2023 End: 12-05-2023 Patient encounter procedure Andrology Auto Body Technician Work Phone: [facility] Comment on above: Procreative manageme nt (Primary Dx) Female infertility ( Primary Dx) Start: 12-04-2023 End: 12-04-2023 ambulatory Andressa Abraham ELECTRONIC ASSEMBLER GROUP LEADER.FACE AND FILL PACKER Work Phone: [facility] Comment on above: Financial clearance Start: 11-23-2023 End: 11-23-2023 ambulatory Andressa Abraham ELECTRONIC ASSEMBLER GROUP LEADER.FACE AND FILL PACKER Work Phone: [facility] Comment on above: Reproductive mgmt, i nfertility due to male factor (Primary Dx) Start: 11-23-2023 End: 11-23-2023 Telemedicine consultation with patient Andressa Baldwinangie TEMPLE.FACE AND FILL PACKER Work Phone: [facility] Start: 10-29-2023 E-mail encounter lona lott caregiver Vidhya Mishrawaldemar ELECTRONIC ASSEMBLER GROUP LEADER.FACE AND FILL PACKER Work Phone: [facility] Start: 10-29-2023 Follow-up encounter Vidhya Squires devon ELECTRONIC ASSEMBLER GROUP LEADER.FACE AND FILL PACKER Work Phone: [facility] Comment on above: Follow up Start: 10-16-2023 End: 10-16-2023 ambulatory JESSI YOO Facility:[facility] Start: 10-12-2023 Telephone encounter Andressa Abraham APRN.FACE AND FILL PACKER Work Phone: [facility] Comment on above: +ovulation test Sat& Sund d14 & 15 partner calling Start: 10-05-2023 ambulatory Andressa goldstein ELECTRONIC ASSEMBLER GROUP LEADER.FACE AND FILL PACKER Work Phone: [facility] Comment on above: Doner Start: 09-11-2023 End: 09-11-2023 ambulatory ANDRESSA ABRAHAM Facility:[facility] Start: 09-11-2023 End: 09-11-2023 Patient encounter procedure Andressa G Jarad ELECTRONIC ASSEMBLER GROUP LEADER.FACE AND FILL PACKER Work Phone: [facility] Comment on above: Encounter for fertil ity planning (Primary Dx) Start: 07-28-2023 Telephone encounter Rahul carroll MD Work Phone: [facility] Comment on above: Lila bloodwork compl eted today Start: 06-15-2023 End: 06-15-2023 ambulatory Andressa Abraham ELECTRONIC ASSEMBLER GROUP LEADER.FACE AND FILL PACKER Work Phone: [facility] Comment on above: Encounter for fertil ity planning (Primary Dx); Encounter for other genetic testing of female for procreative management Start: 06-15-2023 End: 06-15-2023 Telemedicine consultation with patient Andressa Antunez Jarad TEMPLE.FACE AND FILL PACKER Work Phone: [facility] Start: 06-08-2023 End: 06-08-2023 Patient encounter procedure Rahul Zheng MD Work Phone: [facility] Comment on above: Procreative manageme nt counseling (Primary Dx); BMI 34.0-34.9,adult Start: 03-16-2023 End: 03-16-2023 ambulatory TIARRA KATZ Facility:[facility] Start: 03-16-2023 End: 03-16-2023 Patient encounter procedure TIARRA KATZ [facility] Start: 03-19-2022 End: 03-19-[address] ANDREA PRIETO Facility: Start: 03-11-2021 End: 03-11-2021 Emergency department patient visit Filomena Zamora [facility] Start: 12-09-2016 End: 12-11-2016 Evaluation and management of inpatient KEITH [place] Facility:[facility] Start: 12-03-2016 Ambulatory KEITH [place] Facility: [facility] Start: 11-13-2016 End: 11-13-2016 Ambulatory CHARLIE JOEL Facility:[facility] Start: 11-06-2016 Ambulatory CHARLIE JOEL Faci lity:[facility] Procedures Date Procedure Procedure Detail Performing Clinician Start: 09-13-2024 ALL CBC WITH AUTO DIFF Andrea Conner DO Work Phone: Start: 09-12-2024 ALL CBC WITH AUTO DIFF Andrea Conner DO Work Phone: Start: 09-10-2024 US OB BPP W NON-STRESS [...] after 1st trimest 03/30 gestation Tristan Sosa ELECTRONIC ASSEMBLER GROUP LEADER.FACE AND FILL PACKER Work Phone: Start: 04-19-2024 RECURRENT VAGINITIS (HTRX) [...] after 1st trimest 03/30 gestation Andressa Abraham ELECTRONIC ASSEMBLER GROUP LEADER.FACE AND FILL PACKER Work Phone: Start: 03-19-2022 Microscopic observat ion [Identifier] in Cervix by Cyto stain Karen Bolanos MD Work Phone: section TIARRA CALVO H/O: section S/P sectio n Karyna BENITES Work Phone: Removal of intrauter ine device TIARRA KATZ Plan of Treatment Date Care Activity Detail Author Start: 04-19-2029 Screening for malign ant neoplasm of cervix [facility] Start: 03-19-2025 Screening for malign ant neoplasm of cervix [facility] Start: 11-28-2024 Influenza vaccination Influenz a Vaccine (Season Ended) [facility] Start: 10-27-2024 End: 10-27-2024 ambulatory 10/27/2024 1:50 PM EDT Visit [facility] [address] [place] [address] Karyna Craig PA [address] [place] [address] [facility] Start: 09-22-2024 End: 09-22-2024 Patient encounter procedure 09/22/2024 2:00 PM EDT Office Visit [facility] [address] [place] [address] Karyna Craig PA [address] [place], [place] [id number] Arrived [facility] Comment on above: Arrived Start: 09-07-2024 End: 09-07-2024 Patient encounter procedure 09/07/2024 3:00 PM EDT Routine [facility] [address] [place] [phone] Andrea Prieto DO [address] [place] [address] [facility] Start: 08-31-2024 End: 08-31-2025 CULTURE, GROUP B STREP WITH SUSCEPTIBLITY CULTURE, GROUP B STREP WITH SUSCEPTIBLITY Lab Routine Third trimester Expected: 08/31/2024, Expires: 08/31/2025 [facility] Work Phone: Comment on above: Expected: 08/31/2024 , Expires: 08/31/2025 Start: 08-31-2024 End: 08-31-2024 Patient encounter procedure 08/31/2024 11:20 AM EDT Routine [facility] [address] [place] [phone] Karyna Craig, PA [address] [place] [address] [facility] Start: 08-23-2024 End: 08-23-2024 Patient encounter procedure 08/23/2024 1:10 PM EDT Routine [facility] [address] [place] [address] Karyna Craig, PA [address] [place] [address] [facility] Start: 08-08-2024 End: 08-08-2024 [...] OB [address] [place] [phone] Andrea Prieto, DO [address] [place] [address] [facility] Start: 07-11-2024 End: 07-11-2024 Professional / ancillary services management 07/11/2024 10:30 AM EDT Ancillary Procedure [facility] [address] [place] [phone] [facility] Start: 07-05-2024 End: 07-05-2024 Patient encounter procedure 07/05/2024 11:00 AM EDT Office Visit [facility] [address] [place] [phone] Andrea Prieto, DO [address] [place] [address] [facility] Start: 06-22-2024 End: 06-22-2025 CBC panel - Blood by Automated count CBC Lab Routine Diabetes mellitus screening Expected: 06/22/2024 (Approximate), Expires: 06/22/2025 [facility] Comment on above: Expected: 06/22/2024 (Approximate), Expires: 06/22/2025 Start: 06-22-2024 End: 06-22-2025 Measurement of glucose 1 hour after glucose challenge for glucose tolerance test Glucose tolerance, 1 hour Lab Routine Diabetes mellitus screening Expected: 06/22/2024 (Approximate), Expires: 06/22/2025 [facility] Comment on above: Expected: 06/22/2024 (Approximate), Expires: 06/22/2025 Start: 06-22-2024 End: 06-22-2025 US for US OB follow up transabdominal approach Imaging Routine size inconsistent with dates Expected: 06/22/2024, Expires: 06/22/2025 [facility] Work Phone: Comment on above: Expected: 06/22/2024 , Expires: 06/22/2025 Start: 06-01-2024 End: 06-01-2024 Patient encounter procedure 06/01/2024 11:00 AM EST Routine Office Visit [facility] [address] [place] [address] anatomy [facility] Comment on above: anatomy Start: 05-27-2024 End: 05-27-2025 OBSTETRIC ULTRASOUND WHI OBSTETRIC ULTRASOUND WHI Anc Imaging Routine Encounter for anatomic survey Expected: 05/27/2024, Expires: 05/27/2025 [facility] Work Phone: Comment on above: Expected: 05/27/2024 , Expires: 05/27/2025 Start: 04-19-2024 End: 06-17-2024 Alpha fetoprotein, maternal Alpha fetoprotein, maternal Lab Routine Screening, , for anatomic survey Expected: 04/19/2024 (Approximate), Expires: 06/17/2024 [facility] Comment on above: Expected: 04/19/2024 (Approximate), [...] OB [address] [place] [phone] Andrea Prieto, DO [address] [place] [address] [place] [address] Arrived [facility] Comment on above: Arrived Start: 04-12-2024 End: 04-12-2024 Patient encounter procedure 04/12/2024 11:10 AM EST Routine [facility] [address] [place] [phone] Andrea Prieto, DO [address] [facility] [place] [address] [facility] Start: 03-11-2024 End: 03-11-2025 ABO/Rh ABO/Rh Lab Routine Missed menses , unspecified gestational age Expected: 03/11/2024 (Approximate), Expires: 03/11/2025 [facility] Comment on above: Expected: 03/11/2024 [...] AM EST Nurse Visit [facility] [address] [place] [address] Rej, Nurse Sarmad [facility] [address] [place] [address] ob scan [facility] Comment on above: ob scan Start: 01-25-2024 End: 01-25-2024 Patient encounter procedure 01/25/2024 9:40 AM EDT Office Visit [facility] [address] [place] [address] Andrea Prieto DO [address] [facility] [place] [address] [facility] Start: 01-20-2024 End: 01-19-2025 OBSTETRIC ULTRASOUND WHI OBSTETRIC ULTRASOUND WHI Anc Imaging Routine resulting from assisted reproductive technology in first trimester Expected: 01/20/2024, Expires: 01/19/2025 [facility] Work Phone: Comment on above: Expected: 01/20/2024 , Expires: 01/19/2025 Start: 12-28-2023 End: 12-28-2023 Patient encounter procedure 12/28/2023 8:20 AM EDT Office Visit [facility] [address] [place] [address] Karen Bolanos MD [address] [place] [address] Arrived [facility] Comment on above: Arrived Start: 12-05-2023 End: 12-05-2023 Patient encounter procedure [facility] Comment on above: donor thaw IUI-D Start: 11-29-2023 Covid-19 Vaccine () Covid-19 Vaccine () [facility] Start: 11-29-2023 Covid-19 Vaccine () Covid-19 Vaccine () [facility] Start: 11-29-2023 Influenza vaccination Influenza Vacc ine (#1) [facility] Start: 10-12-2023 End: 01-11-2024 Progesterone [Mass/volume] in Serum or Plasma PROGESTERONE Lab Routine Female infertility Expected: 10/12/2023, Expires: 01/11/2024 [facility] Work Phone: Comment on above: Expected: 10/12/2023 , Expires: 01/11/2024 Start: 06-15-2023 End: 09-14-2023 CARRIER SCREEN, EXPANDED CARRIER SCREEN, EXPANDED Lab Routine Encounter for other genetic testing of female for procreative management Expected: 06/15/2023, Expires: 09/14/2023 [facility] Work Phone: Comment on above: Expected: 06/15/2023 , Expires: 09/14/2023 Start: 03-30-2023 Behavioral Health Screening Behavioral Health Screening [facility] Start: 03-30-2023 Depression Assessment Depression Ass essment [facility] Start: 11-28-2022 Covid-19 Vaccine () Covid-19 Vaccine () [facility] Start: 11-28-2022 Influenza vaccination Influenza Vacc ine (#1) [facility] Start: 08-01-2021 Screening for malign ant neoplasm of cervix [facility] Start: 03-18-2018 Screening for malign ant neoplasm of cervix Pap Testing [facility] Start: 03-18-2016 Screening for malign ant neoplasm of cervix Cervical Cancer Screening [facility] Start: 08-01-2009 Anxiety Screening Anxiety Screening [facility] Start: 08-01-2009 Depression Screening Depression Scre ening [facility] Start: 08-01-2009 Hepatitis C screening Hepatitis C Sc reening [facility] Start: 08-01-2009 HIV screening HIV Screening [facility] Start: 01-05-2004 Hepatitis B Vaccine (2 of 3 - 3-dose series) Hepatitis B Vaccine (2 of 3 - 3-dose series) [facility] Start: 08-01-2002 Urine microalbumin profile DTaP,Tdap,Td Vaccine (5 - Tdap) [facility] Bacteria identified in Urine by Culture Urine culture Microbiology Routine Missed menses Ordered: 03/11/2024 [facility] Comment on above: Ordered: 03/11/2024 CBC W Auto Different ial panel - Blood CBC and differential Lab Routine Missed menses , unspecified gestational age Ordered: 03/11/2024 [facility] Comment on above: Ordered: 03/11/2024 CHLAMYDIA TRACHOMATI S (GENITO/STI) CHLAMYDIA TRACHOMATIS (GENITO/STI) Lab Routine Vaginal discharge STD exposure Ordered: 04/19/2024 [facility] Comment on above: Ordered: 04/19/2024 End: 01-17-2025 Choriogonadotropin.beta subunit [Units/volume] in Serum or Plasma HCG QUANTITATIVE Lab Routine Encounter for test, result positive 2x per week for 2 Occurrences starting 01/18/2024 until 01/17/2025 [facility] Work Phone: Comment on above: 2x per week for 2 Oc currences starting 01/18/2024 until 01/17/2025 Cytology Cervical or vaginal smear or scraping study Pap Smear Pathology and Cytology Routine Well woman exam with routine gynecological exam Ordered: 04/19/2024 [facility] Work Phone: Comment on above: Ordered: 04/19/2024 Hemoglobin A1c/Hemoglobin.total in Blood Hemoglobin A1c Lab Routine Missed menses , unspecified gestational age Ordered: 03/11/2024 [facility] Comment on above: Ordered: 03/11/2024 Hepatitis B virus surface Ag [Presence] in Serum or Plasma by Immunoassay Hepatitis B surface antigen Lab Routine Missed menses , unspecified gestational age Ordered: 03/11/2024 [facility] Comment on above: Ordered: 03/11/2024 Hepatitis C virus Ab [Presence] in Serum or Plasma by Immunoassay Hepatitis C antibody Lab Routine Missed menses , unspecified gestational age Ordered: 03/11/2024 [facility] Comment on above: Ordered: 03/11/2024 HIV-1/HIV-2 antigen/antibody combination immunoassay HIV-1 and HIV-2 antibodies Lab Routine Missed menses , unspecified gestational age Ordered: 03/11/2024 [facility] Comment on above: Ordered: 03/11/2024 Human papilloma viru s DNA [Presence] in Unspecified specimen by Probe with amplification HPV DNA probe, amplified Microbiology Routine Well woman exam with routine gynecological exam Ordered: 04/19/2024 [facility] Comment on above: Ordered: 04/19/2024 Neisseria gonorrhoea e DNA [Presence] in Unspecified specimen by PENNY with probe detection Neisseria gonorrhea DNA probe, direct Lab Routine Vaginal discharge STD exposure Ordered: 04/19/2024 [facility] Comment on above: Ordered: 04/19/2024 Reagin Ab [Presence] in Serum by RPR RPR Lab Routine Missed menses , unspecified gestational age Ordered: 03/11/2024 [facility] Comment on above: Ordered: 03/11/2024 Rubella antibody, IgG Rubella an tibody, IgG Lab Routine Missed menses , unspecified gestational age Ordered: 03/11/2024 [facility] Comment on above: Ordered: 03/11/2024 SURESWAB(R) ADVANCED VAGINITIS PLUS, TMA SURESWAB(R) ADVANCED VAGINITIS PLUS, TMA Pathology and Cytology Routine Vaginal discharge STD exposure Ordered: 04/19/2024 [facility] Comment on above: Ordered: 04/19/2024 Immunizations Immunization Date Immunization Notes Care Provider [facility] 09-13-2023 measles, mumps and rubella virus vaccine Karen Bolanos MD Work Phone: [facility] 06-15-2023 influenza, injectable, quadrivalent, contains preservative Karen Bolanos MD Work Phone: [facility] 06-15-2023 influenza virus vaccine, unspecified formulation Andressa Abraham APRN.CNP Work Phone: [facility] 08-17-2020 SARS-CoV-2 (COVID-19 ) mRNA-1270 vaccine [facility] 07-20-2020 SARS-CoV-2 (COVID-19 ) mRNA-1273 vaccine [facility] 12-10-2016 influenza virus vaccine, unspecified formulation [facility] 12-10-2016 influenza, injectable, quadrivalent, preservative free Karen Bolanos MD Work Phone: [facility] 02-16-2009 novel [id number], preservative-free, injectable Karen Bolanos MD Work Phone: [facility] 12-08-2003 hepatitis B vaccine, pediatric or pediatric/adolescent dosage [facility] 12-08-2003 measles, mumps and rubella virus vaccine [facility] 12-08-2003 tetanus toxoid, adsorbed Karen Bolanos MD Work Phone: [facility] 10-27-1996 measles, mumps and rubella virus vaccine [facility] 02-08-1993 diphtheria, tetanus toxoids and acellular pertussis vaccine Karen Bolanos MD Work Phone: [facility] 02-08-1993 diphtheria, tetanus toxoids and acellular pertussis vaccine, unspecified formulation Karen Bolanos MD Work Phone: [facility] 02-08-1993 DTaP, unspecified formulation [facility] 02-08-1993 haemophilus influenzae type b vaccine, conjugate unspecified formulation Karen Bolanos MD Work Phone: [facility] 02-08-1993 haemophilus influenzae type b vaccine, HbOC conjugate Karen Bolanos MD Work Phone: [facility] 02-08-1993 Hib, unspecified formulation [facility] 02-08-1993 poliovirus vaccine, unspecified formulation Karen Bolanos MD Work Phone: [facility] 02-07-1992 diphtheria, tetanus toxoids and acellular pertussis vaccine Karen Bolanos MD Work Phone: [facility] 02-07-1992 diphtheria, tetanus toxoids and acellular pertussis vaccine, unspecified formulation Karen Bolanos MD Work Phone: [facility] 02-07-1992 DTaP, unspecified formulation TIARRA KATZ [facility] 02-07-1992 haemophilus influenzae type b vaccine, conjugate unspecified formulation Karen Bolanos MD Work Phone: [facility] 02-07-1992 haemophilus influenzae type b vaccine, HbOC conjugate Karen Bolanos MD Work Phone: [facility] 02-07-1992 Hib, unspecified formulation TIARRA KATZ [facility] 1991 diphtheria, tetanus toxoids and acellular pertussis vaccine Karen Bolanos MD Work Phone: [facility] 1991 diphtheria, tetanus toxoids and acellular pertussis vaccine, unspecified formulation Karen Bolanos MD Work Phone: [facility] 1991 DTaP, unspecified formulation TIARRA KATZ [facility] 1991 haemophilus influenzae type b vaccine, conjugate unspecified formulation Karen Bolanos MD Work Phone: [facility] 1991 haemophilus influenzae type b vaccine, HbOC conjugate Karen Bolanos MD Work Phone: [facility] 1991 Hib, unspecified formulation TIARRA KATZ [facility] 1991 poliovirus vaccine, unspecified formulation Karen Bolanos MD Work Phone: [facility] 1991 diphtheria, tetanus toxoids and acellular pertussis vaccine Karen Bolanos MD Work Phone: [facility] 1991 diphtheria, tetanus toxoids and acellular pertussis vaccine, unspecified formulation Karen Bolanos MD Work Phone: [facility] 1991 DTaP, unspecified formulation TIARRA KATZ [facility] 1991 haemophilus influenzae type b vaccine, conjugate unspecified formulation Karen Bolanos MD Work Phone: [facility] 1991 haemophilus influenzae type b vaccine, HbOC conjugate Karen Bolanos MD Work Phone: [facility] 1991 Hib, unspecified formulation TIARRA KATZ [facility] 1991 poliovirus vaccine, unspecified formulation Karen Bolanos MD Work Phone: [facility] NEGATED: Highlighted row has not occurred!03-16-2023 influenza virus vaccine, unspecified formulation TIARRA KATZ [facility] Payers Date Payer Category Payer Unknown [id number] 2022 [facility] Blue Shield [id number] [id number] 2022 Unknown 2022 Unknown [id number] 1991 Unknown [id number] 2.16.84 [id number] 1991 Unknown [id number] 2.16.8 40.1.512984.3.579.2.727 1991 Unknown [id number] 2.16.8 [id number] 1991 Unknown [id number] 2.16.8 [id number] 1991 Unknown [id number] 2.16.8 40.1.105299.3.579.2.9 1991 Unknown [id number] 2.16.8 40.1.580705.3.579.2.1258 1991 Unknown [id number] 2.16.8 40.1.773059.3.579.2.1258 1991 Unknown [id number] 2.16.84 0.1.410333.3.579.2.1258 1991 Unknown [id number] 2.16.84 0.1.850581.3.579.2.1258 1991 Unknown [id number] 2.16.84 0.1.624964.3.579.2.1258 1991 Unknown [id number] 2.16.84 0.1.344690.3.579.2.1258 1991 Unknown [id number] 2.16.84 0.1.278715.3.579.2.1258 1991 Unknown [id number] 2.16.84 0.1.802687.3.579.2.1258 1991 Unknown [id number] 2.16.84 0.1.187208.3.579.2.1258 1991 Unknown [id number] 2.16.84 0.1.178456.3.579.2.1258 1991 Unknown [id number] 2.16.84 0.1.958428.3.579.2.1258 1991 Unknown [id number] 2.16.84 0.1.290363.3.579.2.1259 1959 Unknown [id number] Unknown [id number] Social History Date Type Detail Facility [facility] Tobacco smoking consumption unknown [facility] [facility] Start: 11-11-2022 End: 03-16-2023 Tobacco smoking status Never smoked tobacco (finding) [facility] Tobacco smoking status Never [facility] Start: 06-08-2023 End: 09-16-2024 Sex Assigned At Female Aamir Desai [facility] Start: 04-12-2012 End: 11-11-2022 Tobacco use and exposure Smokeless tobacco non-user [facility] Start: 06-08-2023 End: 09-22-2024 Alcohol intake Current drinker of alcohol (finding) [facility] Start: 06-08-2023 End: 09-16-2024 History of Social function [facility] Start: 04-12-2012 Alcohol Comment social [facility] Start: 1991 Sex Assigned At Not on file [facility] Start: 1991 Sex Assigned At Female [facility] Start: 06-11-2022 Gender identity Identifies as female gender (finding) [facility] Start: 01-12-2023 Sexual orientation Homosexual (findi ng) [facility] Start: 11-10-2022 Alcohol Comment 1-2 drinks les [...] meal for a total of 4times daily. [id number] Start: 07-12-2024 End: 08-11-2024 1 each by In Vit ro route Daily Use to check FSBS four times daily [id number] Start: 07-12-2024 End: 08-11-2024 Goals Date Patient Goal Desired Activity /State Personal health goal Functional Status Date Assessment Result Facility 02-28-2024 Functional Status N/A [facility] 03-16-2023 Functional Status N/A [facility] Clinical Notes 03-16-2023 to 09-22-2024 KAMARI Zavala - 09/22/2024 2:00 PM KAMARI Lund - 09/07/2024 2:50 PM KAMARI Lund - 08/31/2024 11:20 AM Orlin Posadas LPN - 08/23/2024 2:40 PM EDBolivar Rubi MA - 08/08/2024 2:10 PM EDT Note Date & Type Note Facility 09-22-2024 History of Presen t illness Narrative Reason for Appointment: Patient ID: Nelli Carpenter is a 34 y.o. female who presents for s/p c section Patient presents today for Post Follow Up appointment. and 1 Week Post Op Follow Up appointment. MEDICATIONS Current Outpatient Medications Medication Instructions ibuprofen 800 mg, 3 times daily oxyCODONE-acetaminophen (Percocet) 5-325 MG tablet 1 tablet, Every 8 hours PRN MV-Min-Fe Fum-FA-DHA ( 1 PO) 1 tablet, Daily ALLERGIES No Known Allergies PROBLEMS Active Ambulatory Problems Diagnosis Date Noted Mild episode of recurrent major depressive disorder 12/28/2023 Restless leg 12/28/2023 Resolved Ambulatory Problems Diagnosis Date Noted No Resolved Ambulatory Problems Past Medical History: Diagnosis Date Asthma (HCC) BMI 28.0-28.9,adult Depression screening GERD (gastroesophageal reflux disease) History of chlamydia infection HPV in female Well woman exam HISTORY PAST MEDICAL HISTORY SOCIAL HISTORY Past Medical History: Diagnosis Date Asthma (HCC) BMI 28.0-28.9,adult Depression screening GERD (gastroesophageal reflux [...] Procedure Laterality Date SECTION, LOW TRANSVERSE 12/09/2016 SECTION, LOW TRANSVERSE 09/12/2024 DILATION AND CURETTAGE 11/2015 VAGINAL DELIVERY 07/15/2014 WISDOM TOOTH EXTRACTION REVIEW OF SYSTEMS Review of Systems: Review of Systems Constitutional: Negative. HENT: Negative. Eyes: Negative. Respiratory: Negative. Cardiovascular: Negative. Gastrointestinal: Negative. Genitourinary: Negative. Musculoskeletal: Negative. Skin: Negative. Neurological: Negative. All other systems reviewed and are negative. Hematological: Negative. Endocrine: Negative. Allergic/Immunologic: Negative. OBJECTIVE Objective: OBGyn Exam Vitals: Estimated body mass index is 37.38 kg/m as calculated from the following: Height as of 12/28/23: 5' 3 . Weight as of this encounter: 211 lb. BP: 110/70 Patient's last menstrual period was 12/19/2023. ASSESSMENT & PLAN ICD-10-CM 1. S/P section Z98.891 Patient presents today for a one week postop section check. Patient is doing well with minor complaints of pain. Incision has been noted as healing well with no signs and symptoms of infection. Follow Up: Patient is to return in 5 weeks for 6 week evaluation. Documented by KAMARI Zavala on behalf of: KAMARI Zavala documented in this encounter [facility] 09-07-2024 History of Presen t illness Narrative [...] Andrea Prieto DO documented in this encounter [facility] 08-31-2024 History of Presen t illness [...] calculated from the following: Height as of 9/30/24: 5' 3 . Weight as of this [...] of: KAMARI Zavala documented in this encounter [facility] 08-23-2024 History of Presen t illness [...] episode of recurrent major depressive disorder (HCC) ([facility]/HCC) 12/28/2023 Restless leg 12/28/2023 Resolved Ambulatory Problems [...] nursing note reviewed. Exam conducted with a supervisor epoxy fabrication present. Vitals: Estimated body mass index is [...] Andrea Prieto DO documented in this encounter [facility] 08-08-2024 History of Presen t illness [...] episode of recurrent major depressive disorder (HCC) ([facility]/HCC) 12/28/2023 Restless leg 12/28/2023 Resolved Ambulatory Problems [...] nursing note reviewed. Exam conducted with a supervisor epoxy fabrication present. Vitals: Estimated body mass index is [...] changes & patient will send results for Maxillofacial Prosthodontist next Thursday. Patient is also to start NST/BPP. Order will be sent to [facility] anf TB Scheduling. Patient given handout as well. Patient to have sugars monitored locally and is going to cancel upcoming appointment with [facility] telemedicine. Orders Placed This Encounter Procedures POCT urinalysis dipstick manually resulted Follow Up: Patient is to return to office in 3 week for routine OB appointment. Documented by Liane Manzano LPN on behalf of: Andrea Prieto DO documented in this encounter [facility] 07-25-2024 History of Presen t illness Narrative Reason for Appointment: Patient ID: Nelli Carpenter is a 33 y.o. female who presents for Routine Visit Patient presents today for Return OB appointment. MEDICATIONS Current Outpatient Medications Medication Instructions Alcohol Swabs (Alcohol Prep Pad) 70 % pads 1 Pad, Topical, Daily, Use four times daily to check FSBS. Blood Glucose Monitoring Suppl (D-Codenvy Glucometer) w/Device kit 1 kit, Does not [...] episode of recurrent major depressive disorder (HCC) ([facility]/HCC) 12/28/2023 Restless leg 12/28/2023 Resolved Ambulatory Problems [...] nursing note reviewed. Exam conducted with a supervisor epoxy fabrication present. Vitals: Estimated body mass index is [...] Patient has completed level 2 Ultrasound at [facility] but has not yet met with [...] Dina Gerard NP documented in this encounter [facility] 07-20-2024 Telephone encounter Note Received outside referral from Dr. Prieto for GDM consult due to elevated 1 hour glucose 202. Called pt. To schedule appointment no answer, left message with call back phone number. Jessy Lilly RN [facility] 07-20-2024 Miscellaneous Notes Received outside referral from Dr. Prieto for GDM consult due to elevated 1 hour glucose 202. Called pt. To schedule appointment no answer, left message with call back phone number. Jessy Lilly RN documented in this encounter [facility] 07-11-2024 History of Presen t illness Narrative [...] episode of recurrent major depressive disorder (HCC) ([facility]) 12/28/2023 Restless leg 12/28/2023 Resolved Ambulatory [...] nursing note reviewed. Exam conducted with a supervisor epoxy fabrication present. Vitals: Estimated body mass index is [...] Diabetic and referral will be done to [facility] for Diabetic management. Patient aware that supplies will be sent to pharmacy to take with her to referral appointment. Documented by Liane Manzano LPN on behalf of: Andrea Prieto DO documented in this encounter [facility] 06-22-2024 History of Presen t illness [...] by KAMARI Zavala documented in this encounter [facility] 06-01-2024 Note HNO ID: [id number] Author: LEONID MYERS MD Service: ? Author Type: Physician Type: Progress Notes Filed: 06/01/2024 15:07 Note Text: Please see ultrasound report for details of this visit. Leonid Myers M.D. [facility] 06-01-2024 History of Presen t illness Narrative Please see ultrasound report for details of this visit. Leonid Myers M.D. documented in this encounter [facility] 04-19-2024 History of Presen t illness Narrative Reason for Appointment: Patient ID: Nelli Carpenter is a 33 y.o. female who presents for Routine Visit Patient presents today for Annual Exam., STD Check., and Return OB appointment. MEDICATIONS No current outpatient medications ALLERGIES No Known Allergies PROBLEMS Active Ambulatory Problems Diagnosis Date Noted Mild episode of recurrent major depressive disorder (HCC) ([facility]) 12/28/2023 Restless leg 12/28/2023 Resolved Ambulatory Problems Diagnosis Date Noted No Resolved Ambulatory Problems Past Medical History: Diagnosis Date Asthma (CMS/[facility]) BMI 28.0-28.9,adult Depression screening GERD (gastroesophageal reflux disease) History of chlamydia infection HPV in female Well woman exam HISTORY PAST MEDICAL HISTORY SOCIAL HISTORY Past Medical History: Diagnosis Date Asthma ([facility]/HCC) BMI 28.0-28.9,adult Depression screening GERD (gastroesophageal reflux [...] nursing note reviewed. Exam conducted with a supervisor epoxy fabrication present. Vitals: Estimated body mass index is [...] to be obtained. Pt being referred to [facility] for level II ultrasound for IVF [...] Andrea Prieto DO documented in this encounter [facility] 03-11-2024 History of Presen t illness [...] Past Medical History: Diagnosis Date Asthma ([facility]) BMI 28.0-28.9,adult Depression screening GERD (gastroesophageal [...] meat, and stay away from [facility]. Patient has also been advised to not [...] Jacqui Ferguson LPN documented in this encounter [facility] 02-28-2024 Hospital Discharg e instructions Patient [...] Centers for Disease Control and Prevention: cdc.gov [employer]: heart.org National Heart, Lung, and Blood Temple: nhlbi.nih.gov This information is not intended to replace advice given to you by your health care provider. Make sure you discuss any questions you have with your health care provider. Document Revised: 12/04/2022 Document Reviewed: 11/27/2022 [employer] Patient Education 2023 [employer]. 02/28/2024 09:57:52 Otitis Media, Adult, Tbpb-sm-Faxl Otitis Media, Adult Otitis media is a [...] pain. Follow these instructions at home: Take savp-lfb-wtomaaf and prescription medicines only as told by [...] provider. Document Revised: 06/24/2021 Document Reviewed: 06/24/2021 [email or web address] Patient Education 2023 [employer]. Follow Up Care 02/28/2024 08:48:51 With:Karen Bolanos MD Address: [place] [place] [address]- When: Unknown [facility] 02-28-2024 Note Patient Education [...] Follow these instructions at home: ??? Take hops-wxa-sborxki and prescription medicines only as told by [...] provider. Document Revised: 06/24/2021 Document Reviewed: 06/24/2021 [email or web address] Patient Education ? 2023 [employer] Nutrition BMI for Adults Body mass [...] (Inserted Image. Un (more content not included)... [facility] 02-09-2024 Note HNO ID: [id number] Author: VIDHYA PITT APRN.FACE AND FILL PACKER Service: ? Author Type: Nurse Practitioner Type: Progress Notes Filed: 02/09/2024 12:28 Note Text: Nelliben Carpenter here today for a scan. This [...] Pitt APRN.LEXUS February 09, 2024 12:27 PM [facility] 02-09-2024 History of Presen t illness [...] Clark MD documented in this encounter [facility] 02-09-2024 Note HNO ID: [id number] Author: PARTH CLARK MD Service: ? Author Type: Physician Type: Progress Notes Filed: 02/09/2024 11:28 Note Text: Scan Visit Patient here for scan. See imaging documentation. Parth Clark MD [facility] 01-20-2024 Note HNO ID: [id number] Author: ANDRESSA ABRAHAM APRN.LEXUS Service: ? Author [...] visit. Either the patient or their legal safety representative has been informed of the risks [...] which included preparing to see the patient, aige-qz-btxe patient care, completing clinical documentation, obtaining and/or [...] grammatical and typographical errors missed in proofreading. [facility] 01-20-2024 History of Presen t illness [...] visit. Either the patient or their legal safety representative has been informed of the risks [...] schedule the patient for the following- Location: [place] Provider: nurse Visit type: scan Reason for visit/appointment notes: scan Date: 02/08 Time (requested): 1030 If slot is full, please schedule the closest open slot. Call to patient needed: no I spent a total of 30 minutes on the date of the service which included preparing to see the patient, hshy-xr-jxgp patient care, completing clinical documentation, obtaining and/or [...] in proofreading. documented in this encounter [facility] 01-18-2024 Telephone encounter Note Patient calls with [...] PA-C January 18, 2024 4:02 PM [facility] 01-18-2024 Miscellaneous Notes Patient calls with positive [...] next steps. documented in this encounter [facility] 01-18-2024 Telephone encounter Note Please call patient back regarding next steps. [facility] Work Phone: 01-02-2024 Note HNO ID: [id number] Author: FLAVIA ELIZONDO, ? Service: ? Author Type: Automation And Controls Supervisor Type: Progress Notes Filed: 01/02/2024 11:47 Note Text: Thaw for IUI Flavia Elizondo [facility] 01-02-2024 History of Presen t illness Narrative Thaw for IUI Flavia E Jameseleazar documented in this encounter [facility] 01-02-2024 Note HNO ID: [id number] Author: FLAVIA ELIZONDO, ? Service: ? Author Type: Automation And Controls Supervisor Type: Progress Notes Filed: 01/02/2024 11:46 Note Text: IUI Xytex #: [id number] Washed frozen specimen Post: 122 m/ml, 63% Insem#: 34.7 million [facility] 01-02-2024 History of Presen t illness Narrative IUI Xytex #: [id number] Washed frozen specimen Post: 122 m/ml, 63% Insem#: 34.7 million IUI specimen released to provider Flavia Elizondo January 02, 2024 11:23 AM documented in this encounter [facility] 01-02-2024 Note HNO ID: [id number] Author: ANYI GANT MD Service: ? Author [...] Cycle Day: 15 Last menstrual period: 12/19/2023 [place] Protocol: UNIVERSAL PROTOCOL / SAFETY CHECKLIST Procedure [...] discussed with the Patient or Patient's Authorized Claims Support Specialist. As applicable, any other physician, advance practice provider, medical student, or other health professional student that will be observing or involved in the sensitive examination for educational or training purposes was discussed with the Patient or Authorized Claims Support Specialist. The Patient or Authorized Claims Support Specialist has agreed to proceed with the sensitive examination. (Sensitive examination includes inspection and/or palpation of the breasts, pelvis, prostate and anorectal regions) Patient declined supervisor epoxy fabrication. IUI IUI Date: 01/02/24 Partner's Name: Wanda [...] Anyi Gant M.D. Reproductive Endocrinology and Infertility [facility] 01-02-2024 Procedure note WHI SARMAD IUI PROCEDURE NOTE Date: 01/02/2024 Primary Proceduralist: Uma Aguilera MD Consents and Labels Consent Signed: Informed Consent obtained and on the chart Labels Verified With Patient: Yes Indications: Nelli Carpenter, is a 33 year old female here today for intrauterine insemination. IUI # 2. Cycle Day: 15 Last menstrual period: 12/19/2023 [place] Protocol: UNIVERSAL PROTOCOL / SAFETY CHECKLIST Procedure [...] discussed with the Patient or Patient's Authorized Claims Support Specialist. As applicable, any other physician, advance practice provider, medical student, or other health professional student that will be observing or involved in the sensitive examination for educational or training purposes was discussed with the Patient or Authorized Claims Support Specialist. The Patient or Authorized Claims Support Specialist has agreed to proceed with the sensitive examination. (Sensitive examination includes inspection and/or palpation of the breasts, pelvis, prostate and anorectal regions) Patient declined supervisor epoxy fabrication. IUI IUI Date: 01/02/24 Partner's Name: Wanda [...] Gant M.D. Reproductive Endocrinology and Infertility [facility] Work Phone: 01-02-2024 Procedure note WHI SARMAD IUI PROCEDURE NOTE Date: 01/02/2024 Primary Proceduralist: Uma Aguilera MD Consents and Labels Consent Signed: Informed Consent obtained and on the chart Labels Verified With Patient: Yes Indications: Nelli Carpenter, is a 33 year old female here today for intrauterine insemination. IUI # 2. Cycle Day: 15 Last menstrual period: 12/19/2023 [place] Protocol: UNIVERSAL PROTOCOL / SAFETY CHECKLIST Procedure [...] discussed with the Patient or Patient's Authorized Claims Support Specialist. As applicable, any other physician, advance practice provider, medical student, or other health professional student that will be observing or involved in the sensitive examination for educational or training purposes was discussed with the Patient or Authorized Claims Support Specialist. The Patient or Authorized Claims Support Specialist has agreed to proceed with the sensitive examination. (Sensitive examination includes inspection and/or palpation of the breasts, pelvis, prostate and anorectal regions) Patient declined supervisor epoxy fabrication. IUI IUI Date: 01/02/24 Partner's Name: Wanda [...] and Infertility documented in this encounter [facility] 01-02-2024 Note HNO ID: [id number] Author: FLAVIA ELIZONDO, ? Service: ? Author Type: Automation And Controls Supervisor Type: Progress Notes Filed: 01/02/2024 11:46 Note Text: IUI specimen released to provider Flavia Elizondo January 02, 2024 11:23 AM [facility] 12-28-2023 History of Presen t illness [...] to monitor weight documented in this encounter [facility] 12-05-2023 Note HNO ID: [id number] Author: STEPHANIE LARA, ? Service: ? Author Type: ? Type: Progress Notes Filed: 12/06/2023 08:45 Note Text: IUI Xytex #[id number] Frozen washed specimen Post: 145 Million/mL, 68% Insem #: 49 Million [facility] 12-05-2023 History of Presen t illness Narrative IUI Xytex #[id number] Frozen washed specimen Post: 145 Million/mL, 68% Insem #: 49 Million IUI specimen released to provider Stephanie Laar December 05, 2023 10:19 AM documented in this encounter [facility] 12-05-2023 Note HNO ID: [id number] Author: MYRIAM DOMINGUEZ MD Service: ? Author [...] Cycle Day: 15 Last menstrual period: 11/21/2023 [place] Protocol: UNIVERSAL PROTOCOL / SAFETY CHECKLIST Procedure [...] EMERGENT procedures): No specimen collected. Patient declined supervisor epoxy fabrication. Uma Aguilera MD IUI IUI Date: 12/05/23 [...] after wash): 49 million Donor ID #: [id number] Cycle reviewed, all questions answered. Pt instructed to take a test in 17 days if no menses and call with results. SIGNATURE: Uma Aguilera MD PATIENT NAME: Nelli Carpenter DATE: December 05, 2023 TIME: 10:31 AM I was present and immediately available for the entire procedure. Patient underwent an intrauterine insemination. Myriam Dominguez MD, TRUDY [facility] 12-05-2023 Procedure note WHI SARMAD IUI PROCEDURE NOTE Date: 12/05/2023 Primary Proceduralist: Uma Aguilera MD Consents and Labels Consent Signed: Informed Consent obtained and on the chart Labels Verified With Patient: Yes Indications: Nelli Carpenter, is a 33 year old female here today for intrauterine insemination. IUI # 1. Cycle Day: 15 Last menstrual period: 11/21/2023 [place] Protocol: UNIVERSAL PROTOCOL / SAFETY CHECKLIST Procedure [...] EMERGENT procedures): No specimen collected. Patient declined supervisor epoxy fabrication. Uma Aguilera MD IUI IUI Date: 12/05/23 [...] after wash): 49 million Donor ID #: [id number] Cycle reviewed, all questions answered. Pt instructed to take a test in 17 days if no menses and call with results. SIGNATURE: Uma Aguilera MD PATIENT NAME: Nelli Carpenter DATE: December 05, 2023 TIME: 10:31 AM I was present and immediately available for the entire procedure. Patient underwent an intrauterine insemination. Myriam Dominguez MD, TRUDY [facility] Work Phone: 12-05-2023 Procedure note WHI SARMAD IUI PROCEDURE NOTE Date: 12/05/2023 Primary Proceduralist: Uma Aguilera MD Consents and Labels Consent Signed: Informed Consent obtained and on the chart Labels Verified With Patient: Yes Indications: Nelli Carpenter, is a 33 year old female here today for intrauterine insemination. IUI # 1. Cycle Day: 15 Last menstrual period: 11/21/2023 [place] Protocol: UNIVERSAL PROTOCOL / SAFETY CHECKLIST Procedure [...] EMERGENT procedures): No specimen collected. Patient declined supervisor epoxy fabrication. Uma Aguilera MD IUI IUI Date: 12/05/23 [...] after wash): 49 million Donor ID #: [id number] Cycle reviewed, all questions answered. Pt instructed to take a test in 17 days if no menses and call with results. SIGNATURE: Uma Aguilera MD PATIENT NAME: Nelli Carpenter DATE: December 05, 2023 TIME: 10:31 AM I was present and immediately available for the entire procedure. Patient underwent an intrauterine insemination. Myriam Dominguez MD, TRUDY documented in this encounter [facility] 12-05-2023 History of Presen t illness Narrative Thaw for IUI Stephanie Lara documented in this encounter [facility] 12-05-2023 Note HNO ID: [id number] Author: STEPHANIE LARA, ? Service: ? Author Type: ? Type: Progress Notes Filed: 12/05/2023 10:23 Note Text: Thaw for IUI Stephanieac Lara [facility] 12-05-2023 Note HNO ID: [id number] Author: STEPHANIE LARA, ? Service: ? Author Type: ? 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 Tubal Patency Testing: defer for now Sperm Source:Donor Frozen Treatment Protocol: Natural Cycle Monitoring Plan: OPKs Ovidrel Trigger: No Supplemental Progesterone: None Comments: None Andressa Abraham APRN.CNP 11/23/2023 documented in this encounter [facility] 11-23-2023 Instructions Andressa Abraham APRN.CNP - 11/23/2023 [...] day of your period and let the manager front know you will be doing donor sperm [...] of your menstrual cycle to let the manager front know you will be testing and doing [...] please call the office [place] [address] Available every day, including weekends and holidays (except [place] and New Years.) Weekday IUI scheduling The day you get your LH surge, please call [phone] between 8:00am - 12:00pm to schedule your insemination for the next day. If you call after 12pm, we may not be able to schedule your appointment. IUI s are done by appointment only. You will make 2 appointments - an arrival time and an IUI time. Donor sperm IUI is available at the following location: [place]: [address] [place] [address] Available every day, including weekends and holidays (except [place] and New Years.) Available for IUI using fresh and frozen samples. Check in location for sperm wash and IUI: [address] The sperm wash takes 60-90 minutes. [...] want to do another IUI: Call the manager front to make sure you are financially cleared. Ask to speak to an NELLY to confirm your treatment plan. Important phone number: [phone] documented in this encounter [facility] 11-23-2023 Note HNO ID: [id number] Author: ANDRESSA ABRAHAM APRN.CNP Service: ? Author [...] visit. Either the patient or their legal safety representative has been informed of the risks [...] IUI consent at earliest convenience. Andressa Abraham APRN.FACE AND FILL PACKER November 23, 2023 9:09 AM I spent a total of 25 minutes on the date of the service which included preparing to see the patient, hrks-gf-yttd patient care, completing clinical documentation, obtaining and/or [...] grammatical and typographical errors missed in proofreading. [facility] 11-23-2023 History of Presen t illness [...] visit. Either the patient or their legal safety representative has been informed of the risks [...] which included preparing to see the patient, gooz-tn-vvox patient care, completing clinical documentation, obtaining and/or [...] in proofreading. documented in this encounter [facility] 10-12-2023 Telephone encounter Note Called the patient she verified her name and date of patient is doing practice cycle Patient had peak on her opk 10-10-23 last period 09-27-23 Needs progesterone order I advised she goes in 6-8 days from positive opk not on fertility meds Luara Roque RN October 12, 2023 12:54 PM [facility] 10-12-2023 Miscellaneous Notes Called the patient she [...] with Wanda. documented in this encounter [facility] 10-12-2023 Telephone encounter Note Partner Wanda calling re +ov need to schedule progesterone test for Nelli when to have it done. Please follow up with Wanda. [facility] Work Phone: 09-11-2023 Instructions Andressa Abraham APRN.FACE AND FILL PACKER - 09/11/2023 8:20 AM EDT REPRODUCTIVE ENDOCRINOLOGY [...] yourself and arranging for shipment to [facility]. [facility] [place] [facility] [place] [facility] [employer] [facility] [place]) [place] [facility] Let us [...] (with a backup), please send me a [employer] message titled Sperm Donor Choice. Include the [...] the office. Mailing address: Attention: Flavia Elizondo [address], [address] [place] [address] Storage at the [facility] is available. Fees are yearly and only start once you are not actively trying. Please ask the financial team ([phone]) for current cost information. Insurance Authorization/Financial Clearance [...] day of your period and let the manager front know you will be doing donor sperm [...] questions. Contact documented in this encounter [facility] 09-11-2023 Note HNO ID: [id number] Author: ANDRESSA ABRAHAM APRN.CNP Service: ? Author [...] favorite donors - send to me via [employer] to confirm Confirmed best vial type to order: IUI/prewashed Will need to follow up to firm up treatment plan and review IUI scheduling instructions. Andressa Abraham APRN.FACE AND FILL PACKER September 11, 2023 8:08 AM I spent a total of 50 minutes on the date of the service which included preparing to see the patient, awsp-dm-nzlt patient care, completing clinical documentation, obtaining and/or [...] may be gramma (more content not included)... [facility] 09-11-2023 History of Presen t illness [...] favorite donors - send to me via [employer] to confirm Confirmed best vial type to order: IUI/prewashed Will need to follow up to firm up treatment plan and review IUI scheduling instructions. Andressa Abraham APRN.CNP September 11, 2023 8:08 AM I spent a total of 50 minutes on the date of the service which included preparing to see the patient, zltn-we-fztv patient care, completing clinical documentation, obtaining and/or [...] in proofreading. documented in this encounter [facility] 07-28-2023 Telephone encounter Note Nelli's labs are in process partner Wanda Carpenter MRLyric [phone] - labs are in process except blood type and screen - called Client Services. This lab was not collected and can not be added. test reordered. patient will have to go back to the lab to have this drawn. 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 sent [employer] message. Andressa Abraham APRN.CNP July 28, 2023 12:27 PM [facility] 07-28-2023 Miscellaneous Notes Nelli's labs are in process partner BERTRAND Beckham [phone] - labs are in process except blood type and screen - called Client Services. This lab was not collected and can not be added. test reordered. patient will have to go back to the lab to have this drawn. 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 sent [employer] message. Andressa Abraham APRN.CNP July 28, 2023 12:27 PM Please follow up with patient completed bloodwork today, next steps after labwork. documented in this encounter [facility] 07-28-2023 Telephone encounter Note Please follow up with patient completed bloodwork today, next steps after labwork. [facility] Work Phone: 06-15-2023 History of Presen t [...] and birthday verified: Yes Location of patient: [place] Persons Present: patient and patient's spouse/significant other I have communicated my name and active licensure. The patient's identity and physical location were verified at the time of this visit. Either the patient or their legal safety representative has been informed of the risks [...] which included preparing to see the patient, sszr-lx-wocz patient care, completing clinical documentation, obtaining and/or [...] in proofreading. documented in this encounter [facility] 06-08-2023 Instructions Rahul Zheng MD - 06/08/2023 10:26 AM EDT Images from the original note were not included. Obstetrics and Gynecology [facility] Intrauterine Insemination Scheduling Instructions Please [...] you get your LH surge, please call [phone] between 8:00am - 12:00pm to schedule your insemination for the next day. If you call after 12pm, we may not be able to schedule your appointment. IUI s are done by appointment only. You will make 2 appointments - one for sperm drop off/collection, and one for the insemination. If you are using a frozen sample, please tell the mill order scheduler this. You will get an arrival time and an IUI time. IUI is available at the following locations: [place]: [address] , [place] [address] Weekday availability is limited depending on staffing. Not available on weekends. Not available for those with frozen sperm. Check in location for sperm wash and IUI: 2nd floor, room 208. The sperm wash takes 60-90 minutes. [place]: [address] [facility], [place] [address] Weekday availability is limited depending on staffing. [...] floor Urology and bring it with you.) [place]: [address], [address] [place] [address] Available every day, including weekends and holidays (except [place] and New Years.) Available for IUI using fresh and frozen samples. Check in location for sperm wash and IUI: [address] [facility]. The sperm wash takes 60-90 minutes. Weekend/Holiday [...] want to do another IUI: Call the manager front to make sure you are financially cleared. Ask to speak to an NELLY to confirm your treatment plan. Important phone number: [phone] documented in this encounter [facility] 06-08-2023 History of Presen t illness Narrative [...] visit. Either the patient or their legal safety representative has been informed of the risks [...] been prescribed Wegovy. She is a non-smoker. 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 documented in this encounter [facility] 03-16-2023 Hospital Discharg e instructions Patient Education 03/16/2023 16:12:49 Wrist Pain, Adult, Acal-kr-Iidk Wrist Pain, Adult There are many things [...] to any changes in your symptoms. Take ebok-tyd-hwjjveu and prescription medicines only as told by [...] provider. Document Revised: 02/02/2020 Document Reviewed: 02/02/2020 Mobile Medical Testing Patient Education 2022 [employer]. [facility] Evaluation + Plan note No data available for this section [facility] Evaluation note Diagnosis Procreative management counseling- Primary Other procreative management counseling and advice BMI 34.0-34.9,adult Body Mass Index 34.0-34.9, adult documented in this encounter [facility] note* Diagnosis Encounter for fertility planning- Primary Other specified procreative management Encounter for other genetic testing of female for procreative management documented in this encounter [facility] note* Diagnosis Treatment plan provided- Primary documented in this encounter [facility] note* Diagnosis Encounter for fertility planning- Primary Other specified procreative management documented in this encounter [facility] note* Diagnosis Procreation management investigation and testing- Primary Other investigation and testing for procreative management documented in this encounter [facility] note* Diagnosis Female infertility- Primary Female infertility of unspecified origin documented in this encounter [facility] note* Diagnosis Reproductive mgmt, infertility due to male factor- Primary Female infertility of other specified origin documented in this encounter [facility] note* Diagnosis Procreative management- Primary Unspecified procreative management documented in this encounter [facility] note* Diagnosis Female infertility- Primary Female infertility of unspecified origin [facility] Diagnosis Encounter for artificial insemination- Primary Artificial insemination documented in this encounter [facility] note* Diagnosis Encounter for test, result positive- Primary examination or test, positive result documented in this encounter [facility] note* Diagnosis resulting from assisted reproductive technology in first trimester- Primary documented in this encounter [facility] note* Diagnosis resulting from assisted reproductive technology in first trimester documented in this encounter [facility] note* Diagnosis Treatment plan provided- Primary documented in this encounter [facility] note* Diagnosis Missed menses , unspecified gestational age Encounter for supervision of normal first in first trimester [facility] Diagnosis Infertility, female- Primary BMI 37.0-37.9, adult Morbid obesity ([facility]) Morbid obesity [facility]* Diagnosis Well woman exam with routine gynecological exam Routine gynecological examination Screening, , for anatomic survey Encounter for anatomic survey Vaginal discharge Leukorrhea, not specified as infective STD exposure Second trimester state, incidental 16 weeks gestation of Mass of right breast, unspecified quadrant Neoplasm of unspecified behavior of breast Other acne [facility] Diagnosis Encounter for anatomic survey- Primary documented in this encounter [facility] note* Diagnosis Encounter for anatomic survey- Primary Obesity affecting in second trimester, unspecified obesity type Class 1 obesity without serious comorbidity with body mass index (BMI) of 34.0 to 34.9 in adult, unspecified obesity type 23 weeks gestation of state, incidental [facility] Diagnosis Second trimester state, incidental 26 weeks gestation of Diabetes mellitus screening Screening for diabetes mellitus size inconsistent with dates documented in this encounter [facility]* Diagnosis Third trimester state, incidental 29 weeks gestation of documented in this encounter [facility]* Diagnosis Third trimester state, incidental 31 weeks gestation of documented in this encounter [facility]* Diagnosis Third trimester state, incidental 33 weeks gestation of Gestational diabetes mellitus (GDM), antepartum, gestational diabetes method of control unspecified documented in this encounter [facility]* Diagnosis 35 weeks gestation of Third trimester state, incidental Gastroesophageal reflux in documented in this encounter [facility]* Diagnosis 36 weeks gestation of Third trimester state, incidental documented in this encounter [facility]* Diagnosis Third trimester state, incidental 37 weeks gestation of documented in this encounter [facility] note* Diagnosis S/P section Other postprocedural status [facility] No data available for this section [facility] No data available for this section [facility] Reason for referral (narrative)* Diagnostic Procedure Only (Routine) - Open Specialty Diagnoses / Procedures Referred By Jose L alcocer Referred To Contact [facility] Diagnoses resulting from assisted reproductive technology in first trimester Procedures OBSTETRIC ULTRASOUND WHI US PREG UTERUS AFTER 1ST TRIMEST GESTATION Andressa Abraham APRN.CNP [id number] [facility] [address] [place] [address] [place] [address] Referral ID Status Reason Start Date Expiration Date V isits Requested Visits Authorized [id number] Open Auto-Generate d Referral 01/20/2024 01/19/2025 [address] [facility] for visit Narrative* Diagnostic Procedure Only (Routine) - Closed Specialty Diagnoses / Procedures Referred By Jose L alcocer Referred To Contact [facility] Diagnoses resulting from assisted reproductive technology in first trimester Procedures OBSTETRIC ULTRASOUND WHI US PREG UTERUS AFTER 1ST TRIMEST GESTATION Andressa Abraham ELECTRONIC ASSEMBLER GROUP LEADER.FACE AND FILL PACKER [id number] [facility] [address] [place] [address] [facility] [address] [place] [address] Referral ID Status Reason Start Date Expiration Date V isits Requested Visits Authorized [id number] Closed Auto-Generate d Referral 01/27/2024 03/29/2024 1 1 [facility] Diagnostic Procedure Only (Routine) - Closed Specialty Diagnoses / Procedures Referred By Contac t Referred To Contact [facility] Diagnoses Encounter for anatomic survey Procedures OBSTETRIC ULTRASOUND WHI US PREG UTERUS AFTER 1ST TRIMEST GESTATION Tristan Sosa, ELECTRONIC ASSEMBLER GROUP LEADER.FACE AND FILL PACKER [address] [facility] [place] [address] Phone: tel: fax: [address] [address] Referral ID Status Reason Start Date Expiration Date V isits Requested Visits Authorized [id number] Closed Auto-Generate d Referral 05/30/2024 03/29/2025 1 1 [facility] Summary Purpose Family History No Family History [...] Obstetrics and Gynecology Diagnoses Infertility, female Procedures [place] OFFICE/OUTPATIENT [facility] 60 MINUTES Karen Bolanos MD [address] [place] [address] Patsy Blanco, DO [address] [place] [address] Referral ID Status Reason Start Date Expiration Date Visits Requested Visits Authorized [id number] Pending Review Specialty Services Required 12/28/2023 06/25/2024 1 1 Additional Source Comments INFORMATION SOURCE (unrecogn ized section and content) DATE CREATED AUTHOR 09/21/2017 [facility] DATE CREATED AUTHOR AUTHOR'S ORGANIZ ATION 03/12/2021 [facility] DATE CREATED AUTHOR AUTHOR'S ORGANIZ ATION 03/16/2021 [facility] DATE CREATED AUTHOR AUTHOR'S ORGANIZ ATION 03/26/2022 [facility] DATE CREATED AUTHOR AUTHOR'S ORGANIZ ATION 02/29/2024 Rutledge Lloyd [facility] DATE CREATED AUTHOR AUTHOR'S ORGANIZ ATION 08/06/2024 [facility] DATE CREATED AUTHOR AUTHOR'S ORGANIZ ATION 09/23/2024 [facility] dical Specialists EPIC <item> Privacy Markings (unrecogniz ed section and content) Section Author: Smita Tello PROHIBITION ON REDISCLOSURE OF CONFIDENTIAL INFORMATION This notice accompanies a disclosure of information concerning a client made to you with the consent of such client. Patient Care team informatio n (unrecognized section and content) Assistant Floor Covering Printer Relationship Specialty Start Date End Date Karen Bolanos MD [address] [place] [address] PCP - General Family Medicine 11/10/22 Karen Bolanos MD [address] [place] [address] PCP - [place] 12/28/22 Assistant Floor Covering Printer Relationship Specialty Start Date End Date Karen Bolanos MD [address] [place] [address] PCP - [facility] 11/10/22 Karen Bolanos MD [address] [place] [address] PCP - [place] [facility] 12/28/22 Assistant Floor Covering Printer Relationship Specialty Start Date End Date Karen Bolanos MD [address] [place] [address] PCP - [facility] 11/10/22 Assistant Floor Covering Printer Relationship Specialty Start Date End Date Karen Bolanos MD [address] [place] [address] PCP - [facility] 11/10/22 Assistant Floor Covering Printer Relationship Specialty Start Date End Date Karen Bolanos MD [address] [place] [address] PCP - [facility] 11/10/22 Karen Bolanos MD [address] [place] [address] PCP - [facility] 12/28/22 Assistant Floor Covering Printer Relationship Specialty Start Date End Date Karen Bolanos MD [address] [place] [address] PCP - [facility] 11/10/22 Assistant Floor Covering Printer Relationship Specialty Start Date End Date Karen Bolanos MD [address] [place] [address] PCP - [facility] 11/10/22 Assistant Floor Covering Printer Relationship Specialty Start Date End Date Karen Bolanos MD [address] [place] [address] PCP - [facility] Medicine 11/10/22 Assistant Floor Covering Printer Relationship Specialty Start Date End Date Karen Bolanos MD [address] [place] [address] PCP - General [facility] Medicine 11/10/22 Assistant Floor Covering Printer Relationship Specialty Start Date End Date Karen Bolanos MD [address] [place] [address] PCP - [facility] 11/10/22 Assistant Floor Covering Printer Relationship Specialty Start Date End Date Karen Bolanos MD [address] [place] [address] PCP - [facility] Medicine 11/10/22 Assistant Floor Covering Printer Relationship Specialty Start Date End Date Karen Bolanos MD [address] [place] [address] PCP - [facility] Medicine 11/10/22 Assistant Floor Covering Printer Relationship Specialty Start Date End Date Karen Bolanos MD [address] [place] [address] PCP - General [facility] Medicine 11/10/22 Assistant Floor Covering Printer Relationship Specialty Start Date End Date Karen Bolanos MD [address] [place] [address] PCP - [facility] Medicine 11/10/22 Assistant Floor Covering Printer Relationship Specialty Start Date End Date Karen Bolanos MD [address] [place] [address] PCP - General [facility] Medicine 11/10/22 Assistant Floor Covering Printer Relationship Specialty Start Date End Date Karen Bolanos MD [address] [place] [address] PCP - [facility] 11/10/22 Assistant Floor Covering Printer Relationship Specialty Start Date End Date Karen Bolanos MD [address] [place] [address] PCP - [facility] 11/10/22 Assistant Floor Covering Printer Relationship Specialty Start Date End Date Karen Bolanos MD [address] [place] [address] PCP - [facility] 11/10/22 Assistant Floor Covering Printer Relationship Specialty Start Date End Date Karen Bolanos MD [address] [place] [address] PCP - [facility] 11/10/22 Assistant Floor Covering Printer Relationship Specialty Start Date End Date Karen Bolanos MD [address] [place] [address] PCP - [facility] 11/10/22 Assistant Floor Covering Printer Relationship Specialty Start Date End Date Karen Bolanos MD [address] [place] [address] PCP - [facility] 11/10/22 Source Comments (unrecognize d section and content) In the event this informatio n is protected by the Federal Confidentiality of Alcohol and Drug Abuse Patient Records regulations: The Federal rules restrict any use of the information to criminally investigate or prosecute any alcohol or drug abuse patient.[facility] the event this information is protected by the Federal Confidentiality of Alcohol and Drug Abuse Patient Records regulations: The Federal rules restrict any use of the information to criminally investigate or prosecute any alcohol or drug abuse patient.[facility] the event this information is protected by the Federal Confidentiality of Alcohol and Drug Abuse Patient Records regulations: The Federal rules restrict any use of the information to criminally investigate or prosecute any alcohol or drug abuse patient.[facility] the event this information is protected by the Federal Confidentiality of Alcohol and Drug Abuse Patient Records regulations: The Federal rules restrict any use of the information to criminally investigate or prosecute any alcohol or drug abuse patient.[facility] the event this information is protected by the Federal Confidentiality of Alcohol and Drug Abuse Patient Records regulations: The Federal rules restrict any use of the information to criminally investigate or prosecute any alcohol or drug abuse patient.[facility] the event this information is protected by the Federal Confidentiality of Alcohol and Drug Abuse Patient Records regulations: The Federal rules restrict any use of the information to criminally investigate or prosecute any alcohol or drug abuse patient.[facility] HealthIn the event this information is protected by the Federal Confidentiality of Alcohol and Drug Abuse Patient Records regulations: The Federal rules restrict any use of the information to criminally investigate or prosecute any alcohol or drug abuse patient.[facility] HealthIn the event this information is protected by the Federal Confidentiality of Alcohol and Drug Abuse Patient Records regulations: The Federal rules restrict any use of the information to criminally investigate or prosecute any alcohol or drug abuse patient.[facility] HealthIn the event this information is protected by the Federal Confidentiality of Alcohol and Drug Abuse Patient Records regulations: The Federal rules restrict any use of the information to criminally investigate or prosecute any alcohol or drug abuse patient.[facility] HealthIn the event this information is protected by the Federal Confidentiality of Alcohol and Drug Abuse Patient Records regulations: The Federal rules restrict any use of the information to criminally investigate or prosecute any alcohol or drug abuse patient.[facility] HealthIn the event this information is protected by the Federal Confidentiality of Alcohol and Drug Abuse Patient Records regulations: The Federal rules restrict any use of the information to criminally investigate or prosecute any alcohol or drug abuse patient.[facility] HealthIn the event this information is protected by the Federal Confidentiality of Alcohol and Drug Abuse Patient Records regulations: The Federal rules restrict any use of the information to criminally investigate or prosecute any alcohol or drug abuse patient.[facility] HealthIn the event this information is protected by the Federal Confidentiality of Alcohol and Drug Abuse Patient Records regulations: The Federal rules restrict any use of the information to criminally investigate or prosecute any alcohol or drug abuse patient.[facility] HealthIn the event this information is protected by the Federal Confidentiality of Alcohol and Drug Abuse Patient Records regulations: The Federal rules restrict any use of the information to criminally investigate or prosecute any alcohol or drug abuse patient.[facility] HealthIn the event this information is protected by the Federal Confidentiality of Alcohol and Drug Abuse Patient Records regulations: The Federal rules restrict any use of the information to criminally investigate or prosecute any alcohol or drug abuse patient.[facility] HealthIn the event this information is protected by the Federal Confidentiality of Alcohol and Drug Abuse Patient Records regulations: The Federal rules restrict any use of the information to criminally investigate or prosecute any alcohol or drug abuse patient.[facility] HealthIn the event this information is protected by the Federal Confidentiality of Alcohol and Drug Abuse Patient Records regulations: The Federal rules restrict any use of the information to criminally investigate or prosecute any alcohol or drug abuse patient.[facility] HealthIn the event this information is protected by the Federal Confidentiality of Alcohol and Drug Abuse Patient Records regulations: The Federal rules restrict any use of the information to criminally investigate or prosecute any alcohol or drug abuse patient.[facility] HealthIn the event this information is protected by the Federal Confidentiality of Alcohol and Drug Abuse Patient Records regulations: The Federal rules restrict any use of the information to criminally investigate or prosecute any alcohol or drug abuse patient.[facility] HealthIn the event this information is protected by the Federal Confidentiality of Alcohol and Drug Abuse Patient Records regulations: The Federal rules restrict any use of the information to criminally investigate or prosecute any alcohol or drug abuse patient.[facility] Reason for Visit (unrecogniz ed section and content) Reason Comments Consult Reason Comments donor sperm teach Reason Comments Lila bloodwork completed today Reason Comments +ovulation test Thu&Sund d14 & 15 partne r calling Reason Comments Treatment Planning Specialty Diagnoses / Procedures Referred By Jose L alcocer Referred To Contact [facility] ENDOCRINOLOGY [facility] FERT[facility] Diagnoses Encounter for procreative management, unspecified Encounter for other procreative management Procedures THAWING CRYOPRESERVED SPERM/SEMEN EACH ALIQUOT ARTIFIC INSEMINATION INTRAUTERIN Andressa Abraham APRN.FACE AND FILL PACKER [id number] [place] [address] [facility] [address] [place] [id number] Referral ID Status Reason Start Date Expiration Date V isits Requested Visits Authorized [id number] Closed Financial Clearance Required - Self Pay [...] THAWING CRYOPRESERVED SPERM/SEMEN EACH ALIQUOT Andressa Abraham APRN.FACE AND FILL PACKER [id number] [place], [place] [id number] [facility] [address] [place] [address] Referral ID Status Reason Start Date Expiration Date V isits Requested Visits Authorized [id number] Closed Patient Cleared - True Self-Pay required payment collected 12/30/2023 03/29/2024 2 2 Reason Comments +hpt 01/15 after an iui Reason Comments Reason Comments Amenorrhea Reason Comments Immunizations Patient declines at this time. Reason Comments Routine Visit Reason Comments s/p c section FOR RECORDS PERTAINING TO PATIENTS WHO ARE [...] BE BASED ON THE PRIMARY CLINICAL RECORDS. [facility]. provides no warranty or guarantee of the accuracy or completeness of information in this document.
== END 2024-10-18 14:52 | disposition home or self-care (01) ==
LOC: FBCO 08:13
PROVIDERS: PCP Student in an Organized Health Care Education/Training Program; Visit Provider Obstetrics & Gynecology
DX: Z39.1 Encounter for care and examination of lactating mother (principal)